=== PATIENT | male | born 1955 | race African-American/Black ===

== ENCOUNTER 2020-10-01 07:09 | Day surgery (SDC) | payer OTHER, MEDICARE ==
[2020-10-01] MEDS ORDERED: NA CHLORIDE 0.9% 500 ML ONE (07:47)
[2020-10-01] MEDS ORDERED: propofoL 200 MG/20 ML VIAL IV ONE ×2 (08:45)
[2020-10-01] MEDS ORDERED: Phenylephrine HCl 10 MG/ML 1 ML VIAL ONE (09:26)
[2020-10-01 09:30] VITALS: TEMP 96.8
[2020-10-01 10:51] VITALS: BP 95/70; O2SAT 98
== END 2020-10-01 10:47 | disposition home health service (06) ==
LOC: OR 07:09
PROVIDERS: ATTEND Internal Medicine Gastroenterology
PROC: 0DBK8ZX Excision of Ascending Colon, Via Natural or Artificial Opening Endoscopic, Diagnostic (ICD-10-PCS; 2020-10-01)
PROC: 0DBB8ZX Excision of Ileum, Via Natural or Artificial Opening Endoscopic, Diagnostic (ICD-10-PCS; 2020-10-01)
PROC: 0DBM8ZX Excision of Descending Colon, Via Natural or Artificial Opening Endoscopic, Diagnostic (ICD-10-PCS; 2020-10-01)
PROC: 0DBP8ZX Excision of Rectum, Via Natural or Artificial Opening Endoscopic, Diagnostic (ICD-10-PCS; principal; 2020-10-01 08:15)
DX: K52.9 Noninfective gastroenteritis and colitis, unspecified (principal); D12.7 Benign neoplasm of rectosigmoid junction; K50.90 Crohn's disease, unspecified, without complications; I10 Essential (primary) hypertension; Z20.822 Contact with and (suspected) exposure to COVID-19; Z86.010 Personal history of colon polyps; Z80.8 Family history of malignant neoplasm of other organs or systems; Z83.71 Family history of colonic polyps
CPT/HCPCS: 45384; 88305; U0002; J2704; J2370; J7040

== ENCOUNTER 2021-03-20 09:55 | Inpatient (IN) | payer OTHER, MEDICARE ==
[2021-03-20 11:50] LABS: Absolute Lymphocytes (CBC) 0.4 K/uL (0.7-4.9); Basophils % 0.6 % (0-1.3); Hematocrit 35.5 % (39.6-49.0); Lymphocytes % 8.2 % (15.3-44.8); RBC Red Blood Cell Count 4.37 M/uL (4.33-5.43)
[2021-03-20 11:51] LABS: Protime INR 1.35
[2021-03-20 12:18] LABS: Albumin 2.6 g/dL (3.4-5.0); Bilirubin Direct 0.3 mg/dL (0-0.2); Bilirubin Total 0.5 mg/dL (0.2-1.0); Magnesium 1.6 mg/dL (1.8-2.4); Protein, Total 6.1 g/dL (6.4-8.2); Troponin (Emerg Dept Use Only) 0.02 ng/mL (0.0-0.045)
--- NOTE | 2021-03-20 12:26 | RAD REPORT ---
EXAM DESCRIPTION: RAD - Chest Single View - 03/20/2021 12:16 pm CLINICAL HISTORY: TRAUMA COMPARISON: Chest Pa And Lat (2 Views) dated 04/29/2020; Chest Pa And Lat (2 Views) dated 12/05/2019; Chest Single View dated 12/16/2015; CHEST SINGLE VIEW dated 02/08/2014 FINDINGS: Lines: None. Lungs: No evidence of edema or pneumonia. Mild increased prominence of the pulmonary interstitium. Pleural: No significant pleural effusions or pneumothorax. Cardiac: Cardiomegaly Bones: No acute fractures. Other: IMPRESSION: Vascular congestion, otherwise no acute process identified.
--- NOTE | 2021-03-20 13:24 | RAD REPORT ---
EXAM DESCRIPTION: CT - Head C Spine Cap Wo Con - 03/20/2021 12:46 pm CLINICAL HISTORY: Fall and AMS with right scalp pain COMPARISON: No comparisons TECHNIQUE: Axial [address] head images were obtained. Axial [address] cervical spine images were obtain ed with sagittal and coronal reconstruction images reviewed. Axial 5 mm images of the chest, abdomen and pelvis were obtained. All CT scans are performed using dose optimization technique as appropriate and may include automated exposure control or mA/KV adjustment according to patient size. FINDINGS: No intracranial hemorrhage, mass or edema. No midline shift or abnormal fluid collection. Mastoid air cells and paranasal sinuses are clear. No skull fracture. Volume loss is minimal and sim ilar to the 2016 study. No measurable chronic ischemic changes seen. Ventricles are normal. Cervical bodies are normal in height. No fracture or acute bone finding.No disk space narrowing.No pr evertebral soft tissue thickening or paraspinal mass.Central canal detail is inherently limited on CT imaging.Lateral masses of C1 are normally positioned to each occipital condyle. The slight rotation of the C1 ring relative to the body of C2 is noted but not felt to be sufficient for an abnormal atla ntoaxial rotary subluxation diagnosis. Mid and upper cervical spine facet joint degenerative changes are present. No significant foraminal stenosis. Patchy ground-glass opacities are present in the right upper lobe. This is a minimal finding but pote ntially pulmonary contusion if there is right-side trauma history. Minimal right upper lobe infiltrat e can also have this appearance. Pattern is not a classic COVID-19 pneumonia presentation. No consoli dation, mass or other significant lung parenchymal finding. Asymmetric posterior gutter interstitial stranding is probably atelectasis and/or scarring. No mediastinal hematoma and the aorta and pulmonar y arteries are unremarkable. No chest will mass or abnormal axillary finding. No displaced rib fractu re or other significant bony finding. CT abdomen and pelvis show no injury to solid abdominal viscera. Patient does have polycystic kidneys with innumerable variably sized low-density masses. Many of the masses have peripheral rim calcifica tion. Isodense masses cannot be excluded. Acute parenchymal disease cannot be evaluated in this setti ng. Cholecystectomy clips are present. No biliary tree dilatation. No bowel injury or significant fin ding. No free air, free fluid or abnormal stranding. No hernia, mass or bulky lymphadenopathy. No ur inary bladder abnormality. No abnormal prostate gland enlargement. Bony degenerative changes are present. There are sclerotic changes in the left femoral head likely re flecting developing avascular necrosis. The femoral head maintains smooth rounded contour. IMPRESSION: No hemorrhage, edema or acute intracranial finding identifiable. Cervical spine degenerative changes are present with no acute finding identifiable. Patchy ground-glass opacities in the right upper lobe could be atelectasis, infiltrate or possibly mi nimal pulmonary contusion if there is right chest trauma history. Right upper lobe findings are not a classic COVID-19 pneumonia presentation. Polycystic kidney disease not fully evaluated in a noncontrast trauma CT protocol. No acute abdominal or pelvic finding. No acute or emergent bone finding identifiable. 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
[2021-03-20 14:45] LABS: Amylase 40 U/L (25-115); Lipase 67 U/L (73-393)
--- NOTE | 2021-03-20 15:44 | ER ---
Nurse's Notes [facility] Name: Adriel Raya Age: 65 yrs Sex: Male : 1955 Arrival Date: 03/20/2021 Time: 10:00 Bed 27 Private MD: Diagnosis: Altered mental status, unspecified;Weakness;Repeated falls Presentation: 03/20 10:29 Chief complaint: EMS states: Generalized weakness and frequent falls over the past few ss days. BGL was 54 on arrival. After administration of oral glucose, repeat BGL was 158. Coronavirus screen: Client denies travel out of the [place] in the last 14 days. Ebola Screen: Patient denies exposure to infectious person. Patient denies travel to an Ebola-affected area in the 21 days before illness onset. Initial Sepsis Screen: Does the patient meet any 2 criteria? No. Patient's initial sepsis screen is negative. Does the patient have a suspected source of infection? No. Patient's initial sepsis screen is negative. Risk Assessment: Do you want to hurt yourself or someone else? Patient reports no desire to harm self or others. Onset of symptoms is unknown. 10:29 Method Of Arrival: [facility] ss 10:29 Acuity: SAM 3 ss Triage Assessment: 21:38 General: Appears in no apparent distress. wr Historical: - Allergies: 10:30 Norvasc; ss - PMHx: 10:30 Dialysis; Diverticulitis; Hypertension; ss - Immunization history:: Client reports receiving the 2nd dose of the Covid vaccine, Moderna. - Social history:: Smoking status: Patient reports the use of cigarette tobacco products, smokes one-half pack cigarettes per day. Screenin:00 Abuse screen: Denies threats or abuse. Denies injuries from another. Nutritional hb screening: No deficits noted. Tuberculosis screening: No symptoms or risk factors identified. Fall Risk Total Kilgore Fall Scale indicates Low Risk Score (25-44 pts). Fall prevention measures have been instituted. Side Rails Up X 2 Frequent Obs/Assesments occuring Family Present and informed to notify staff if they need to leave bedside As available Patient and Family Educated on Fall Prevention Program and strategies. Assessment: 10:15 General: Appears in no apparent distress. uncomfortable, Behavior is calm, cooperative, jl7 appropriate for age. Pain: Denies pain. Neuro: Level of Consciousness is awake, alert, obeys commands, Oriented to person, place, time, situation. Cardiovascular: Patient's skin is warm and dry. Rhythm is atrial fibrillation. Respiratory: Airway is patent Respiratory effort is even, unlabored, Respiratory pattern is regular, symmetrical. Derm: Skin is dry, Skin is normal, Skin temperature is warm. 11:00 Reassessment: Patient appears in no apparent distress at this time. No changes from [facility] previously documented assessment. Patient and/or family updated on plan of care and expected duration. Pain level reassessed. Patient is alert, oriented x 3, equal unlabored respirations, skin warm/dry/pink. 12:00 Reassessment: Patient appears in no apparent distress at this time. No changes from [facility] previously documented assessment. Patient and/or family updated on plan of care and expected duration. Pain level reassessed. Patient is alert, oriented x 3, equal unlabored respirations, skin warm/dry/pink. 13:00 Reassessment: Patient appears in no apparent distress at this time. No changes from [facility] previously documented assessment. Patient and/or family updated on plan of care and expected duration. Pain level reassessed. Patient is alert, oriented x 3, equal unlabored respirations, skin warm/dry/pink. 14:00 Reassessment: Patient appears in no apparent distress at this time. No changes from [facility] previously documented assessment. Patient and/or family updated on plan of care and expected duration. Pain level reassessed. Patient is alert, oriented x 3, equal unlabored respirations, skin warm/dry/pink. 14:38 Reassessment: MILE [phone], DAUGHTER LUIS ALBERTO [phone]. hb 15:00 Reassessment: Patient appears in no apparent distress at this time. No changes from hb previously documented assessment. Patient and/or family updated on plan of care and expected duration. Pain level reassessed. Vital Signs: 11:15 BP 96 / 60; Pulse 69; Resp 17; Temp 97.9; Pulse Ox 94% ; jl7 11:15 Weight 168 kg; Height 5 ft. 11 in. (180.34 cm); jl7 14:11 BP 96 / 60; Pulse 78; Resp 18; Pulse Ox 96% ; jl7 11:15 Body Mass Index 51.66 (168.00 kg, 180.34 cm) 7 ED Course: 10:00 Patient arrived in ED. eb 10:18 Ever Trujillo MD is Attending Physician. kdr 10:20 Patient has correct armband on for positive identification. Placed in gown. Bed in low jl7 position. Call light in reach. Side rails up X2. engine monitor on. Pulse ox on. NIBP on. Warm blanket given. 10:30 Triage completed. ss 11:10 Lanre Singh, RN is Primary Nurse. 7 11:40 Initial lab(s) drawn, by me, sent to lab. Inserted saline lock: 22 gauge in right 3 antecubital area, using aseptic technique. Blood collected. 11:58 Arm band placed on. hb 11:59 EKG done, by ED staff, reviewed by Ever Trujillo MD. jl7 12:15 XRAY Chest (1 view) In Process Unspecified. EDMS 12:46 CT Traumagram (Head C Spine CAP wo con) In Process Unspecified. EDMS 14:08 Repeat lab(s) drawn. by me, sent to lab. jl7 15:42 Jose Lawrence is Hospitalizing Provider. kdr 16:37 AMMONIA Sent. 3 18:30 No provider procedures requiring assistance completed. Patient admitted, IV remains in hb place. Administered Medications: No medications were administered Outcome: 15:43 Decision to Hospitalize by Provider. kdr 18:30 Admitted to ER Hold. Please see [facility] for further documentation. hb 18:30 Condition: stable 18:30 Instructed on the need for admit, Demonstrated understanding of instructions. 22:26 Patient left the ED. ap3 Signatures: Dispatcher [employer] EDMS Ever Trujillo MD MD [facility] [address] Matilde Mares RN RN Meseret Lr RN RN Lanre Singh RN RN [facility] Cherri Sands [facility] Netta Daley RN RN 3 Petra Hadley Willena wr
--- NOTE | 2021-03-20 15:44 | EDPHYS ---
Physician Documentation [facility] Name: Adriel Raya Age: 65 yrs Sex: Male : 1955 Arrival Date: 03/20/2021 Time: 10:00 Bed 27 Private MD: ED Physician Ever Trujillo HPI: 03/20 18:14 This 65 yrs old Black Male presents to ER via EMS with complaints of General Weakness. kdr 18:14 EMS and the patient's reports that he has been very weak over the last 3 to 4 kdr days. He has had recurrent falls several falls in the last 24 hours. She denies any specific injury and the patient has no focal complaints of. On EMS arrival, the patient had a blood glucose level of 54. He was given oral glucose and on arrival his blood glucose level was 158. On my initial evaluation the patient was poorly responsive and somnolent. Later in his stay in the ED, he became more awake and lucid.. Onset: The symptoms/episode began/occurred gradually, 1 week(s) ago. Severity of symptoms: At their worst the symptoms were mild moderate incapacitating in the emergency department the symptoms are unchanged. The patient has experienced similar episodes in the past, multiple times. The patient has not recently seen a physician. Historical: - Allergies: 10:30 Norvasc; ss - PMHx: 10:30 Dialysis; Diverticulitis; Hypertension; ss - Immunization history:: Client reports receiving the 2nd dose of the Covid vaccine, Moderna. - Social history:: Smoking status: Patient reports the use of cigarette tobacco products, smokes one-half pack cigarettes per day. ROS: 18:14 Constitutional: Patient is a poor historian and most of the review of systems and kdr history were gathered from the by phone. The 's name is Edith. Her phone number is [phone]. Patient also has phone for his daughter daniel, Eyes: Negative for injury, pain, redness, and discharge, Neck: Negative for injury, pain, and swelling, Cardiovascular: Negative for chest pain, palpitations, and edema, Respiratory: Negative for shortness of breath, cough, wheezing, and pleuritic chest pain, Abdomen/GI: Negative for abdominal pain, nausea, vomiting, diarrhea, and constipation, Back: Negative for injury and pain, : Negative for injury, bleeding, discharge, and swelling, MS/Extremity: Negative for injury and deformity, Skin: Negative for injury, rash, and discoloration, Psych: Negative for depression, anxiety, suicide ideation, homicidal ideation, and hallucinations, Allergy/Immunology: Negative for hives, rash, and allergies, Endocrine: Negative for neck swelling, polydipsia, polyuria, polyphagia, and marked weight changes, Hematologic/Lymphatic: Negative for swollen nodes, abnormal bleeding, and unusual bruising. 18:14 Neuro: Positive for altered mental status, gait disturbance, weakness, Legs are giving out on him due to weakness, Negative for hearing loss, loss of consciousness. Exam: 12:06 ECG was reviewed by the Attending Physician. kdr 18:14 Constitutional: This is a well developed, well nourished patient who is awake, alert, kdr and in no acute distress. Head/Face: Normocephalic, atraumatic. Eyes: Pupils equal round and reactive to light, extra-ocular motions intact. Lids and lashes normal. Conjunctiva and sclera are non-icteric and not injected. Cornea within normal limits. Periorbital areas with no swelling, redness, or edema. Neck: Trachea midline, no thyromegaly or masses palpated, and no cervical lymphadenopathy. Supple, full range of motion without nuchal rigidity, or vertebral point tenderness. No Meningismus. Chest/axilla: Normal chest wall appearance and motion. Nontender with no deformity. No lesions are appreciated. Cardiovascular: Regular rate and rhythm with a normal S1 and S2. No gallops, murmurs, or rubs. Normal PMI, no JVD. No pulse deficits. Respiratory: Lungs have equal breath sounds bilaterally, clear to auscultation and percussion. No rales, rhonchi or wheezes noted. No increased work of breathing, no retractions or nasal flaring. 18:14 Abdomen/GI: Soft, non-tender, with normal bowel sounds. No distension or tympany. No guarding or rebound. No evidence of tenderness throughout. Skin: Warm, dry with normal turgor. Normal color with no rashes, no lesions, and no evidence of cellulitis. Neuro: Awake and alert, GCS 15, oriented to person, place, time, and situation. Cranial nerves II-XII grossly intact. Motor strength 5/5 in all extremities. Sensory grossly intact. Cerebellar exam normal. Normal gait. Psych: Awake, alert, with orientation to person, place and time. Behavior, mood, and affect are within normal limits. 18:14 Abdomen/GI: Inspection: obese Bowel sounds: active, all quadrants. 18:14 Musculoskeletal/extremity: Extremities: noted in the left arm: The patient's dialysis access site, fistula is on his left forearm and appears to be normal with a normal thrill. Vital Signs: 11:15 BP 96 / 60; Pulse 69; Resp 17; Temp 97.9; Pulse Ox 94% ; jl7 11:15 Weight 168 kg; Height 5 ft. 11 in. (180.34 cm); jl7 14:11 BP 96 / 60; Pulse 78; Resp 18; Pulse Ox 96% ; jl7 11:15 Body Mass Index 51.66 (168.00 kg, 180.34 cm) jl7 MDM: 10:23 Patient medically screened. kdr 18:14 Data reviewed: vital signs, nurses notes, lab test result(s), radiologic studies. kdr Counseling: I had a detailed discussion with the patient and/or guardian regarding: the historical points, exam findings, and any diagnostic results supporting the discharge/admit diagnosis, lab results, radiology results, the need for further work-up and treatment in the hospital. ED course: Patient became more lucid no longer he was in the emergency department. His blood glucose remained stable. He was admitted for observation and stabilization.. 03/20 10:19 Order name: Basic Metabolic Panel [facility] 03/20 10:19 Order name: CBC with Diff; Complete Time: 12:39 [facility] 03/20 10:19 Order name: LFT's [facility] 03/20 10:19 Order name: Magnesium; Complete Time: 12:39 [facility] 03/20 10:19 Order name: NT PRO-BNP; Complete Time: 12:39 [facility] 03/20 10:19 Order name: PT-INR; Complete Time: 12:39 [facility] 03/20 10:19 Order name: Troponin (emerg Dept Use Only); Complete Time: 12:39 [facility] 03/20 10:20 Order name: Basic Metabolic Panel; Complete Time: 12:39 EDMS 03/20 10:20 Order name: Liver (Hepatic) Function; Complete Time: 12:39 [facility] 03/20 11:28 Order name: Glucose, Ancillary Testing; Complete Time: 12:39 [facility] 03/20 12:24 Order name: Amylase, Serum; Complete Time: 15:07 [facility] 03/20 12:24 Order name: ETOH Level; Complete Time: 15:07 [facility] 03/20 12:24 Order name: Lipase; Complete Time: 15:07 [facility] 03/20 15:41 Order name: AMMONIA; Complete Time: 17:01 [facility] 03/20 10:19 Order name: XRAY Chest (1 view); Complete Time: 12:39 [facility] 03/20 10:19 Order name: EKG; Complete Time: 10:20 [facility] 03/20 10:19 Order name: Cardiac monitoring; Complete Time: 11:43 [facility] 03/20 10:19 Order name: EKG - Nurse/Tech; Complete Time: 11:43 [facility] 03/20 10:19 Order name: IV Saline Lock; Complete Time: 11:43 [facility] 03/20 10:19 Order name: Labs collected and sent; Complete Time: 11:43 [facility] 03/20 12:24 Order name: CT Traumagram (Head C Spine CAP wo con); Complete Time: 14:15 [facility] 03/20 15:41 Order name: ABG [facility] 03/20 17:01 Order name: MRI - Brain Wo Cont [facility] 03/20 18:13 Order name: COVID-19 : Document "Date of Symptom Onset" if Symptomatic. [facility] 03/20 18:27 Order name: SARS-COV-2 RT PCR [facility] 03/20 18:28 Order name: CORONAVIRUS [facility] 03/20 19:19 Order name: Glucose, Ancillary Testing [facility] 03/20 20:12 Order name: Glucose, Ancillary Testing [facility] 03/20 20:32 Order name: MRI [facility] 03/20 10:19 Order name: O2 Per Protocol; Complete Time: 11:43 [facility] 03/20 10:19 Order name: O2 Sat Monitoring; Complete Time: 11:43 [facility] 03/20 12:24 Order name: NPO; Complete Time: 12:29 kdr EC:06 Rate is 81 beats/min. Rhythm is irregularly irregular, A fib with No ectopy. QRS [place] kdr is Normal. MI interval is normal. QRS interval is normal. QT interval is normal. Clinical impression: Atrial Fibrillation. Administered Medications: No medications were administered Disposition Summary: 03/20/21 15:43 Hospitalization Ordered Hospitalization Status: Inpatient Admission kdr Provider: Jose Lawrence Condition: Fair kdr Problem: new kdr Symptoms: are unchanged kdr Bed/Room Type: Standard kdr Location: Telemetry/MedSurg (Inpatient)(03/20/21 21:32) mw Room Assignment: 425(03/20/21 21:32) mw Diagnosis - Altered mental status, unspecified kdr - Weakness kdr - Repeated falls kdr Forms: - Medication Reconciliation Form kdr - SBAR form kdr Signatures: Dispatcher [employer] EDMS Katherine Saldaña RN RN Ever Trujillo MD MD kdr Matilde Mares RN RN Meseret Lr RN RN Lanre Singh RN RN jl7 Corrections: (The following items were deleted from the chart) 16:59 16:19 CORONAVIRUS+MRePrryLAB.BRZ ordered. EDUT EDUT 19:05 15:43 Telemetry/MedSurg (Inpatient) kdr hb 19:05 15:43 kdr hb 21:32 19:05 [facility] ER HOLD hb mw 21:32 19:05 ERHOLD- hb mw
[2021-03-20 17:14] LABS: Arterial Blood Carboxyhemoglob 1.8 % (0-1.5); Blood Gas Oxyhemoglobin 90.1 % (94-97); Blood O2 Saturation 92.7 % (92-98.5)
--- NOTE | 2021-03-20 17:39 | P.HP ---
Certification for Inpatient Patient admitted to: Observation With expected LOS: <2 Midnights Patient will require the following post-hospital care: None Practitioner: I am a practitioner with admitting privileges, knowledge of patient current condition, hospital course, and medical plan of care. Services: Services provided to patient in accordance with Admission requirements found in Title 42 Section 412.3 of the Code of Federal Regulations Patient History Date of Service: 03/20/21 Reason for admission: Altered mental status History of Present Illness: This is a 65-year-old male patient with a history of end-stage renal disease on dialysis with hypertension that presented to the emergency room via EMS after significant other called EMS for frequent falls. EMS discovered that patient's blood glucose level was 54. Was administered oral glucose and brought it up slightly. By the time patient was seen in the emergency room patient's glucose was now 158. Patient was evaluated and found to have a sodium of 134, potassium 4.0, chloride 100, bicarb 30, BUN of 22, creatinine 6.5, glucose 92. Patient's white cell count was 4.4, hemoglobin 11, hematocrit 35.5, platelet 131. Patient had magnesium of 1.6 and a BNP of 22,297. Patient stated that he was dialyzed yesterday. Stated that he had been more fatigued than normal and had 3 falls al l within the last 24 hours. To his knowledge does not recall ever having hypoglycemic episodes or diabetes. Medicine was consult that time to evaluate patient for admission. ER initially said patient was very altered but has seemed to improved over the course of his stay currently. Allergies amlodipine besylate [From Norvasc] Allergy (Verified 09/26/20 09:46) Anaphylaxis, lower leg swelling amoxicillin [From Augmentin] Allergy (Verified 09/26/20 09:46) Nausea/Vomiting/Diarrhea clavulanic acid [From Augmentin] Allergy (Verified 09/26/20 09:46) Nausea/Vomiting/Diarrhea Home medications list reviewed: Yes Home Medications: Cinacalcet HCl [Sensipar*] 1 tab PO BEDTIME 09/02/13 Docusate [Colace Cap*] 1 tab PO BID 09/02/13 Metoprolol Tartrate [Lopressor*] 100 mg PO BID 09/02/13 Omeprazole [Prilosec] 40 mg PO DAILY 09/02/13 Simvastatin [Zocor*] 20 mg PO BEDTIME 09/02/13 allopurinoL [Zyloprim*] 100 mg PO BEDTIME 09/02/13 cloNIDine HCL [Catapres*] 0.3 mg PO PRN PRN 09/02/13 Mesalamine [Pentasa*] 4 tab PO BID 07/10/14 Nati Pro Ultra [place] 3 Soft Gels 1 cap PO BID 12/16/15 Sherrill Ic 1 tab PO BID 12/16/15 Sevelamer Carbonate [Renvela*] 800 mg PO TIDWM 12/16/15 Apixaban [Eliquis] 2.5 mg PO BID 09/26/20 Folic Acid/Multivit,Iron,Lathe Puller [One Daily Complete Tablet] 1 each PO DAILY 09/26/20 Gabapentin 300 mg PO TID 09/26/20 Tramadol HCl [Ultram] 50 mg PO PRN PRN 09/26/20 - Past Medical/Surgical History Diabetic: No -: Diverticulitis -: HTN -: Gout -: Renal disease -: HD on T, Thur, Sat -: trace of asbestosis -: cpap -: heart cath -: appy -: carli -: L knee scope - Social History Smoking Status: Never smoker Smoking therapy provided: No Alcohol use: No CD- Drugs: No Caffeine use: Yes Place of Residence: Home Review of Systems General: Unremarkable Eyes: Unremarkable ENT: Unremarkable Respiratory: Unremarkable Cardiovascular: Unremarkable Gastrointestinal: Unremarkable Musculoskeletal: Unremarkable Integumentary: Unremarkable Neurological: Weakness, As per HPI Lymphatics: Unremarkable Physical Examination - Vital Signs Temperature: 97.9 F Blood Pressure: 96/60 Pulse: 69 Respirations: 18 Pulse Ox (%): 96 - Physical Exam General: Alert, In no apparent distress, Oriented x3 HEENT: PERRLA, Mucous membr. moist/pink, EOMI Neck: Supple, 2+ carotid pulse no bruit, JVD not distended Respiratory: Clear to auscultation bilaterally Cardiovascular: No edema, Normal pulses, Regular rate/rhythm, Normal S1 S2, No gallops, No rubs, No murmurs Capillary refill: <2 Seconds Gastrointestinal: Normal bowel sounds, Soft and benign, Non-distended, No ascites, No tenderness, No masses, No rebound, No guarding Musculoskeletal: No clubbing, No swelling, No contractures, No erythema, No tenderness, No warmth Integumentary: No rashes, No breakdown, No significant lesion, No tenderness/swelling, No erythema, No warmth, No cyanosis Neurological: Normal speech, Normal strength at 5/5 x4 extr, Normal tone, Sensation intact, Cranial nerves 3-12 intact, Normal affect Lymphatics: No axilla or inguinal lymphadenopathy - Studies Laboratory Data (last 24 hrs) 03/20/21 14:04: Amylase 40, Lipase 67 L 03/20/21 11:40: PT 15.6 H, INR 1.35 03/20/21 11:40: WBC 4.40, Hgb 11.0 L, Hct 35.5 L, Plt Count 131 L 03/20/21 11:40: Sodium 134 L, Potassium 4.0, BUN 22 H, Creatinine 6.50 H*, Glucose 92, Magnesium 1.6 L, Total Bilirubin 0.5, AST 37, ALT 20, Alkaline Phosphatase 174 H Assessment and Plan - Problems (Diagnosis) (1) Hypotension Current Visit: Yes Status: Acute Qualifiers: Hypotension type: idiopathic hypotension Qualified Code(s): I95.0 - Idiopathic hypotension (2) Altered mental status Current Visit: Yes Status: Acute Qualifiers: Altered mental status type: unspecified Qualified Code(s): R41.82 - Altered mental status, unspecified (3) Hypoglycemia Current Visit: Yes Status: Acute (4) ESRD on hemodialysis Onset Date: 12/22/15 Current Visit: Yes Status: Chronic - Plan 1. Patient will be admitted to a telemetry unit for observation overnight to continue monitoring his mental status and glucose levels. 2. Patient will have vital signs and glucose checks per protocol 3. Consulted physical therapy for the weakness and frequent falls 4. Will have labs in the morning to repeat his CBC and chemistry 5. Patient likely will be able to go home as he has done well over the course of his stay thus far. Discharge Plan: Home Plan to discharge in: 24 Hours - Advance Directives Does patient have a Living Will: Yes Does patient have a Durable POA for Healthcare: No - Code Status/Comfort Care Code Status Assessed: No Critical Care: No Time Spent Managing Pts Care (In Minutes): 70
[2021-03-20] MEDS ORDERED: ACETAMINOPHEN 500 MG TAB PO PRN (18:20)
[2021-03-20] MEDS ORDERED: ONDANSETRON 4 MG/2 ML VIAL IV PRN (18:20)
[2021-03-20 18:26] VITALS: BMI 51.5
[2021-03-20] MEDS ORDERED: D50W 25 GM/50 ML SYRINGE IV ONE (19:08)
[2021-03-20] MEDS ORDERED: D50W 50 ML IV ONE (19:31)
--- NOTE | 2021-03-20 20:31 | RAD REPORT ---
EXAM DESCRIPTION: MRI - Brain Wo Cont - 03/20/2021 8:24 pm CLINICAL HISTORY: AMS COMPARISON: Brain Wo Cont dated 12/16/2015; Head C Spine Cap Wo Con dated 03/20/2021 TECHNIQUE: Sagittal T1-weighted images were obtained along with axial PD, heavily T2-weighted and T2 -FLAIR images. Axial DWI and ADC mapping sequences were also obtained along with coronal heavily T2-w eighted images. FINDINGS: No intracranial hemorrhage, mass or acute infarction. There is no edema or shift of midlin e structures. No extra-axial fluid collections. Merritt-matter/white matter junction is preserved. Signa l voids are seen as a normal finding in the major intracranial vessels. Patient has minimal atrophy c hange showing little or no progression from 2016. No significant chronic ischemic change. Ventricles are normal. No globe or orbital content abnormality. Mastoid air cells and paranasal sinuses are clear. IMPRESSION: Negative non-contrast MRI of the Brain for acute finding.
[2021-03-21] MEDS: TRAMADOL HCL 50 MG TAB PO PRN ×2 (00:38→21:02)
[2021-03-21 06:01] LABS: Absolute Lymphocytes (CBC) 0.5 K/uL (0.7-4.9); Basophils % 0.9 % (0-1.3); Hematocrit 34.2 % (39.6-49.0); Lymphocytes % 13.7 % (15.3-44.8); MPV 8.2 fL (7.6-11.3); RBC Red Blood Cell Count 4.23 M/uL (4.33-5.43)
[2021-03-21 06:22] LABS: Potassium 4.4 mmol/L (3.5-5.1)
--- NOTE | 2021-03-21 15:33 | P.PN ---
Subjective Date of Service: 03/21/21 Chief Complaint: Altered mental status Patient is currently on 2 L oxygen by nasal cannula. He has no new complain. His mental status improved after correction of hypoglycemia Physical Examination - Vital Signs Temperature: 97.3 F Blood Pressure: 96/55 Pulse: 82 Respirations: 20 Pulse Ox (%): 96 - Physical Exam General: Alert, In no apparent distress Neck: JVD not distended Respiratory: Other (Nonlabored breathing) Cardiovascular: Regular rate/rhythm, Normal S1 S2 Gastrointestinal: Soft and benign, Non-distended Musculoskeletal: No swelling Neurological: Normal strength at 5/5 x4 extr Assessment And Plan - Current Problems (Diagnosis) (1) COVID-19 virus infection Current Visit: Yes Status: Acute (2) Altered mental status Current Visit: Yes Status: Acute Qualifiers: Altered mental status type: unspecified Qualified Code(s): R41.82 - Altered mental status, unspecified (3) Hypoglycemia Current Visit: Yes Status: Acute (4) ESRD on hemodialysis Onset Date: 12/22/15 Current Visit: Yes Status: Chronic (5) Anemia in CKD (chronic kidney disease) Onset Date: 12/22/15 Current Visit: No Status: Acute - Plan Hypoglycemia corrected. Oral hypoglycemics or insulin not listed on his home medications. Not sure what caused hypoglycemia unless it is secondary to hormonal deficiencies. Will check serum cortisol and TSH. Nephrology consult for hemodialysis. Chest x-ray demonstrated vascular congestion. Hopefully patient will be weaned off oxygen after hemodialysis. Will repeat chest x-ray after hemodialysis to evaluate for COVID pneumonia. Hypocalcemia likely secondary to vitamin-D deficiency. Will check vitamin-D levels.
[2021-03-21 19:00] LABS: Magnesium 1.7 mg/dL (1.8-2.4); Phosphorus 2.7 mg/dL (2.5-4.9)
[2021-03-22 04:04] LABS: Magnesium 1.6 mg/dL (1.8-2.4); Potassium 3.6 mmol/L (3.5-5.1)
[2021-03-22 04:09] LABS: Absolute Lymphocytes (CBC) 0.6 K/uL (0.7-4.9); Basophils % 0.4 % (0-1.3); Hematocrit 35.3 % (39.6-49.0); Lymphocytes % 17.8 % (15.3-44.8); MPV 8.4 fL (7.6-11.3); RBC Red Blood Cell Count 4.36 M/uL (4.33-5.43)
[2021-03-22] MEDS: TRAMADOL HCL 50 MG TAB PO PRN (10:03)
--- NOTE | 2021-03-22 10:48 | CON ---
History Of Present Illness: The patient is a pleasant 65-year-old male who presents to the hospital with some change in mental status, was also having some difficulty breathing, found to have COVID pos itive. The patient was admitted to the fourth floor for treatment and evaluation. The patient was f ound to have no sugars. This was corrected. His hypoglycemia has stayed an issue overall. The leadnra ent has not been eating and drinking very well. On my evaluation today, again, the patient seems to be slightly confused but is able to answer some questions. He is alert and does not seem to be in an y distress. He is using about 2 L nasal cannula oxygen, O2 sats are in mid 90s, and this is an impro vement from yesterday. The patient had about 3.8 L of ultrafiltration done yesterday on dialysis. H e denies any other concerns, issues. His hemoglobin is okay. He does not seem to be in any pain. H e seems to be more alert compared to yesterday from what I am reading from the documentations and gat neil from speaking with his nurse. The patient's past medical history is consistent with requiring dialysis for end-stage renal disease. He goes to the dialysis unit in [place]. Dr. Franklin is his primary insurance claims representative. The patient has a fistula on his left forearm that has been functioning w . This was used with a 15-gauge needle yesterday to dialyze. We have been consulted to supervise dialysis. The patient also has some mild hypocalcemia and also his blood pressures have been runnin g in the lower side in the 80-110 range. The patient was able to tolerate dialysis well with an albu min yesterday. Past Medical History: As stated above, the patient has a history of end-stage renal disease, hyperte nsion. He is on dialysis on a Tuesday, , Tuesday schedule. Question of some lung disease f rom asbestosis. In the past, the patient has had requirement for CPAP, question sleep apnea, history of cholecystectomy, left knee arthroscopy. He has had cardiac cath/coronary artery disease. Social History: He has a involved with his care. Does not drink alcohol. Does not smoke cigar ettes or use any drugs. He does live at home, seems to be reasonably functional at baseline with abl e to answer questions and take care of activities of daily living. His allergies are noted in the art and reviewed. Medications noted and reviewed. Current Medications: Include tramadol p.r.n. for pain, which he has gotten 1 dose on March 21 in the evening. He is also on Zofran as needed for nausea. He has not received that. I have just sta rted him on magnesium and vitamin D to correct the low magnesium and his hypocalcemia. Physical Examination: Vital Signs: Evaluation of his vitals, currently blood pressure has been running between 85-110 syst olic, diastolic around 50, O2 sats 94% on room air. He is afebrile. His pulse is about 80 and regul ar. Lungs: Clear to auscultation anteriorly with decreased breath sounds at the very bases. Abdomen: Soft. Extremities: Revealed positive 2 edema bilaterally. Laboratory Data: Reviewed. Labs from today show WBC count of 3.3, hemoglobin 11.1, hematocrit 35.3, platelet count of 105. Chemistry shows sodium 138, potassium 3.6, chloride 101, bicarb 29, BUN 21, creatinine 6.5, calcium 7.2, and magnesium at 1.6. The calcium has improved from earlier as the numb er before was 6.5, that was yesterday. The patient was dialyzed with a 3 calcium bath on dialysis ye sterday. Phosphorus is 2.7, currently at 3.0 today. Assessment And Plan: 1.The patient is in reasonably stable condition currently with volume status somewhat significantly improved but still slightly volume overloaded, does not make much urine. He is otherwise alert. Esha athing is comfortable on 2 L nasal cannula. The patient is saturating at about 95%. His lungs are c lear. I am hesitant to dialyze him today given his low blood pressures. We will plan to dialyze amrit orrow with albumin as needed. I have discussed this with the dialysis nurse and orders have been com municated. We will plan to take off another 2.5 L or so if the patient is able to tolerate diet. e patient's hypoglycemia is being monitored closely and the patient is going to be treated with D50 a s needed to keep his glucose in a reasonable range that is another reason we want to be careful dialy zing the patient and then do it tomorrow because there may be some glucose removed also on dialysis. The patient's electrolytes otherwise look good. 2.For the hypocalcemia. We will plan to dialyze him with a 3 calcium bath. We will also start him on ergocalciferol. 3.For altered mental status, correct hypoglycemia as blood pressure is improving. Volume status is improving. Hopefully this will improve as well. 4.Hypomagnesemia. We will avoid giving him IV magnesium for now. Magnesium is very slightly lower than the normal range and IV magnesium can cause a drop in his blood pressure. We will go ahead and treat with p.o. magnesium as long as patient is not having diarrhea. Discussed this with the nurse t laurentg care of the patient. If diarrhea becomes a problem, we will have to hold p.o. magnesium as wel l. In summary, start p.o. magnesium. Start ergocalciferol, dialysis Tuesday, , and Tuesday, oliveira d dialysis treatment yesterday. We will plan to give another treatment tomorrow as an extra treatmen t to see if we can ultrafiltrate somewhat more to get him close to or at his dry weight. If hyperten jas is an issue with dialysis, we will plan on giving him some albumin. We will also dialyze him wi th a 3 calcium bath to further correct the calcium along with giving him vitamin D. /TRENT Voice ID: [id number] Report ID: [id number]
[2021-03-22] MEDS: MAGNESIUM OXIDE 400 MG TAB PO SCH (11:00)
[2021-03-22] MEDS: MIDODRINE HCL 5 MG TABLET PO SCH ×2 (11:45→21:36)
[2021-03-22] MEDS: DRISDOL (VITAMIN D=ERGOCALCIFEROL) 50000 UNIT CAP PO SCH (12:00)
[2021-03-22] MEDS ORDERED: NA CHLORIDE 0.9% 500 ML IV ONE (13:12)
[2021-03-22] MEDS ORDERED: NA CHLORIDE 0.9% 1,000 ML ONE (13:28)
--- NOTE | 2021-03-22 13:57 | P.PN ---
Subjective Date of Service: 03/22/21 Chief Complaint: Altered mental status Patient is currently on 3 L oxygen by nasal cannula. Patient has been hypotensive since morning. Rapid response was performed which was his systolic blood pressure was down to 62. Patient put in Trendelenburg position at which point his systolic blood pressure increased to 92. Patient is alert and oriented. No change in mental status. Physical Examination - Vital Signs Temperature: 98.1 F Blood Pressure: 76/46 Pulse: 85 Respirations: 20 Pulse Ox (%): 95 - Physical Exam General: Alert, In no apparent distress, Oriented x3 HEENT: Mucous membr. moist/pink Respiratory: Clear to auscultation bilaterally, Diminished, Other (No labored breathing) Cardiovascular: Regular rate/rhythm, Normal S1 S2, Edema (Bilateral lower extremities) Gastrointestinal: Soft and benign, Non-distended, Other (Obese abdomen) Musculoskeletal: No contractures Integumentary: No erythema, No cyanosis Neurological: Other (No focal motor deficit.) Assessment And Plan - Current Problems (Diagnosis) (1) COVID-19 virus infection Current Visit: Yes Status: Acute (2) Altered mental status Current Visit: Yes Status: Acute Qualifiers: Altered mental status type: unspecified Qualified Code(s): R41.82 - Altered mental status, unspecified (3) Hypoglycemia Current Visit: Yes Status: Acute (4) ESRD on hemodialysis Onset Date: 12/22/15 Current Visit: Yes Status: Chronic (5) Anemia in CKD (chronic kidney disease) Onset Date: 12/22/15 Current Visit: No Status: Acute - Plan Hypoglycemia corrected. Cortisol level and TSH are within normal limit Patient underwent hemodialysis yesterday and about 3.7 L of fluid was removed. Case discussed with nephrology. Given a 500 ml NS bolus. Start midodrine. Ordered echocardiogram, troponin and cardiology consult. Transferred to the ICU for close monitoring Repeat chest x-ray. Wean oxygen as possible Hypocalcemia likely secondary to vitamin-D deficiency. Hypocalcemia improved. Hypomagnesemia is been corrected. Low 25-OH vitamin-D. Replacement per nephrology. Continue to monitor electrolytes. Antihypertensives on hold. Monitor blood pressure closely.
[2021-03-23] MEDS: MAGNESIUM OXIDE 400 MG TAB PO SCH (08:19)
[2021-03-23] MEDS: MIDODRINE HCL 5 MG TABLET PO SCH ×3 (08:19→20:45)
[2021-03-23] MEDS ORDERED: D50W 25 GM/50 ML SYRINGE IV ONE ×3 (08:55→16:00)
--- NOTE | 2021-03-23 10:19 | PN ---
Date of Progress Note: 03/23/2021 Subjective: The patient is alert, awake, comfortable. He states his breathing is about the same as yesterday if anything improved a little bit. His heart rate has been between 80-100 and irregular. Abdomen is soft. Extremities revealed positive edema bilaterally. He is on 2 L nasal cannula. O2 s ats are at about 94%. His blood pressure has improved. The systolic was about 100-110 with diastoli c in the 50 range. This is a significant improvement compared to yesterday when he had gone down as much as 50. He has been given some IV fluids with about 500 cc of fluids yesterday and has been [place] on midodrine with 5 mg p.o. t.i.d. The midodrine has had a positive impact with his blood pressu re is improving, his breathing improving. He denies any other nausea, vomiting, or any other complai nts. He seems to be in reasonably good condition. His blood sugars have been slow on lower side wit h readings above 100 on the last 1 and the nurses rechecking that as well. Physical Examination: Vital Signs: Stable. Blood pressure 102/57, last pulse about 100, irregular. Abdomen is soft. Extremities revealed positive edema bilaterally. General: The patient is afebrile. He is not in any distress. He is not in any pain. His breathing is comfortable. Lungs: Clear anteriorly. Decreased breath sounds at the very bases but due to the patient's body oliveira bitus, it is difficult to assess. The patient is obese. Abdomen: Soft, nontender. Bowel sounds are positive. Extremities: With +2 edema bilaterally about the same as yesterday. Medications: Reviewed. The patient has been started on midodrine 5 mg p.o. b.i.d. The patient is a lso on magnesium 400 mg p.o. daily. He is on vitamin D 37146 units once a week. He is getting Tylen ol p.r.n. for pain and tramadol p.r.n. for pain and Zofran p.r.n. for nausea, vomiting. Laboratory Data: Reviewed WBC count 3.3. This is from yesterday. Hemoglobin 11.1, hematocrit 35.3, platelet count 105. Chemistry shows sodium 138, potassium 3.6, chloride 101, bicarb 29, BUN 21, cre atinine 6.52. This is lab work from yesterday. Magnesium at that time was 1.6. His last sugar was down to 75, but has been running in the 100 range. Assessment And Plan: The patient is a pleasant 65-year-old male who is alert, awake, seems to be in reasonably stable condition currently. He was dialyzed over the weekend. We will plan to dialyze hi m again today. His regular schedule is Tuesday, , Tuesday, but given the stone coming tomor row and also given the patient's overall perhaps slight breathing worsening compared to his baseline, I would keep him close to euvolemic status. The patient seems to be close to his dry weight right n ow in fact needed about 500 cc of fluid to be given yesterday to support the blood pressure. Now corey t the patient has been started on midodrine, his blood pressure is looking good. His heart rate is i rregular. This has been documented on previous vitals also and does not seem to be a new problem. H owever, his heart rate is in good control range between 80-100. His lungs are clear. His volume sta tus seems to be close to euvolemic and if his blood pressure goes below 100, a small bolus of IV flui ds could be out of below 90, a small bolus of IV fluids can be tried. We will attempt only 1 to 1-1/ 2 L of ultrafiltration with dialysis today with albumin as needed. Continue on midodrine for now. T he patient is having some shortness of breath lower than his baseline. I have been advised by the [facility] that he did have a COVID test positive and that is why he is on the fourth floor with COV ID precautions. However, I do not see a documented test on the chart and have requested the nurse to review to see when it was positive and to get it charted. In summary possibly COVID positive, short ness of breath status overall improved. The patient with issues with hypertension, irregular heart r ate. Recommend considering a Cardiology evaluation, echocardiogram, gentle IV fluids to keep blood p ressure over 90 and dialysis today. We will plan to dialyze with a gentle ultrafiltration with album in as needed. Also discussed with the nursing staff to check a fingerstick glucose if less than 120. We will give some D50 1 amp to allow patient to be comfortable on dialysis and also to keep his glu cose readings at least between 100-150 range as the patient has been dropping lately. Also encourage p.o. intake. The patient has been eating meals that his is bringing. Continue to encourage th at and also the patient is on low-dose magnesium and getting vitamin D supplement. Clinically stable compared to yesterday. Next dialysis will be planned for either Tuesday or dependi ng on patient's condition. /TRENT Voice ID: [id number] Report ID: [id number]
--- NOTE | 2021-03-23 17:37 | P.PN ---
Subjective Date of Service: 03/23/21 Chief Complaint: Altered mental status Patient is maintained on 3 L oxygen by nasal cannula. Patient is not eating much. His blood sugar is down to 55 this afternoon. Blood pressure has improved and stable. Physical Examination - Vital Signs Temperature: 97.6 F Blood Pressure: 110/57 Pulse: 85 Respirations: 20 Pulse Ox (%): 96 - Physical Exam General: Alert, Other (Awake) HEENT: Mucous membr. moist/pink Neck: JVD not distended Respiratory: Diminished, Crackles/rales (Mild bibasilar rales) Cardiovascular: Regular rate/rhythm, Normal S1 S2 Gastrointestinal: Soft and benign, Non-distended Musculoskeletal: No swelling Integumentary: Other (Bilateral lower extremity xerosis) Neurological: Other (No focal motor deficit) Assessment And Plan - Current Problems (Diagnosis) (1) COVID-19 virus infection Current Visit: Yes Status: Acute (2) Altered mental status Current Visit: Yes Status: Acute Qualifiers: Altered mental status type: unspecified Qualified Code(s): R41.82 - Altered mental status, unspecified (3) Hypoglycemia Current Visit: Yes Status: Acute (4) ESRD on hemodialysis Onset Date: 12/22/15 Current Visit: Yes Status: Chronic (5) Anemia in CKD (chronic kidney disease) Onset Date: 12/22/15 Current Visit: No Status: Acute - Plan Patient with intermittent hypoglycemia due to poor oral intake. Cortisol level and TSH are within normal limit Further hemodialysis per nephrology Continue midodrine for hypotension. Echocardiogram is pending, troponin is negative. Patient to be seen by cardiology. Wean oxygen as possible Hypocalcemia likely secondary to vitamin-D deficiency. Hypocalcemia improved. Low 25-OH vitamin-D. Replacement per nephrology. Continue to monitor electrolytes. Antihypertensives on hold. Monitor blood pressure closely. Patient accepted for inpatient rehab at [facility]. Monitor for 1 more day to ensure patient is stable with respect to his blood pressure and blood sugar.
[2021-03-23] MEDS: TRAMADOL HCL 50 MG TAB PO PRN (21:24)
[2021-03-24 04:08] LABS: Absolute Lymphocytes (CBC) 0.5 K/uL (0.7-4.9); Basophils % 0.3 % (0-1.3); Hematocrit 35.9 % (39.6-49.0); Lymphocytes % 15.1 % (15.3-44.8); MPV 8.7 fL (7.6-11.3)
[2021-03-24 04:23] LABS: Albumin 2.3 g/dL (3.4-5.0); Bilirubin Total 0.9 mg/dL (0.2-1.0); Ferritin 1886.7 ng/mL (26-388); Phosphorus 3.8 mg/dL (2.5-4.9); Potassium 4.7 mmol/L (3.5-5.1); Protein, Total 5.6 g/dL (6.4-8.2)
[2021-03-24 04:38] LABS: Magnesium 1.4 mg/dL (1.8-2.4)
--- NOTE | 2021-03-24 06:28 | P.PN ---
Subjective Date of Service: 03/24/21 Chief Complaint: Altered mental status Subjective: No new changes (difficult to get answers from. and nursing state he gets in moods at times and can be stubborn. states he has been sleeping more and was complaining of R hip pain before admission. She states he never complained of left hip pain.) Review of Systems is unable to be obtained (Pt not wanting to answer questions) Physical Examination - Vital Signs Temperature: 97.6 F Blood Pressure: 126/65 Pulse: 85 Respirations: 22 Pulse Ox (%): 97 Assessment & Plan Physician Review Additional Text: Physical Exam Gen: Alert, oriented to self and hospital, then stopped answering questions HEENT: Normal conjunctiva, sclera anicteric Respiratory: bibasilar crackles, shallow inspiration on 3L NC Cardiovascular: Regular rate/rhythm, Normal S1 S2 Gastrointestinal: Soft, nontender, nondistended Neurological: No obvious focal motor deficit Problem list Acute hypoxemic respiratory failure secondary to COVID-19 pneumonia Acute metabolic encephalopathy, secondary to hypoglycemia/hypotension/COVID-19 Hypoglycemia Hypotension ESRD on hemodialysis Anemia in chronic kidney disease Patient with intermittent hypoglycemia due to poor oral intake. Cortisol level and TSH are within normal limit hemodialysis per nephrology Continue midodrine for hypotension. Patient to be seen by cardiology. Echo: notable for LA dilated CXR with worsening opacities, significantly elevated ferritin and CRP Oxygen requirement increased to 3 L nasal cannula, patient was fully vaccinated with Moderna in July/August of this year Low 25-OH vitamin-D. Replacement per nephrology. Monitor blood pressure closely. Patient accepted for inpatient rehab at [facility]. Patient needs to be more stable from BP / glc likely 2 more days prior to transfer possible developing AVN noted on CT at time of admission of LEFT femoral head. states patient was complaining of his RIGHT hip Time Spent Managing Pts Care (In Minutes): 40
[2021-03-24] MEDS: MIDODRINE HCL 5 MG TABLET PO SCH ×3 (07:52→19:36)
[2021-03-24] MEDS: MAGNESIUM OXIDE 400 MG TAB PO SCH (07:53)
[2021-03-24] MEDS ORDERED: D50W 25 GM/50 ML SYRINGE IV ONE ×2 (07:59→13:43)
--- NOTE | 2021-03-24 08:20 | ECHO ---
HEIGHT: 5 ft 11 in WEIGHT: 370 lb 0 oz DATE OF STUDY: 03/23/[address]: dorcas fox 2-DIMENSIONAL: YES M.MODE: YES DOPPLER: YES COLOR FLOW: YES TDS: YES PORTABLE: NO DEFINITY: NO BUBBLE STUDY: NO DIAGNOSIS: END STAGE RENAL DISEASE CARDIAC HISTORY: CATHERIZATION: YES SURGERY: NO PROSTHETIC VALVE: NO PACEMAKER: NO MEASUREMENTS (cm) DIASTOLIC (NORMALS) SYSTOLIC (NORMALS) IVSd 1.2 (0.6-1.2) LA Diam 4.8 (1.9-4.0) LVEF 72% LVIDd 4.3 (3.5-5.7) LVIDs 2.5 (2.0-3.5) %FS 41% LVPWd 1.2 (0.6-1.2) Ao Diam 3.2 (2.0-3.7) 2 DIMENSIONAL ASSESSMENT: RIGHT ATRIUM: NOT WELL SEEN LEFT ATRIUM: ENLARGED RIGHT VENTRICLE: NOT WELL SEEN LEFT VENTRICLE: NORMAL TRICUSPID VALVE: MILD TRICUSPID REGURGITATION MITRAL VALVE: MILD MITRAL REGURGITATION PULMONIC VALVE: NORMAL AORTIC VALVE: NORMAL PERICARDIAL EFFUSION: NONE AORTIC ROOT: NORMAL LEFT VENTRICULAR WALL MOTION: HYPERDYNAMIC. DOPPLER/COLOR FLOW: SEE BELOW. COMMENTS: HYPERDYNAMIC LEFT VENTRICLE WITH EJECTION FRACTION GREATER THAN 60%. NORMAL WALL MOTION. UNABLE TO SEE RIGHT VENTRICLE/RIGHT ATRIUM WELL. LEFT ATRIAL ENLARGEMENT. TECHNOLOGIST: JOSIE ALFARO
[2021-03-24] MEDS ORDERED: D50W 50 ML IV ONE (08:25)
--- NOTE | 2021-03-24 08:43 | RAD REPORT ---
EXAM DESCRIPTION: RAD - Chest Single View - 03/24/2021 4:49 am CLINICAL HISTORY: f/u effusions / pulm edema / RUL opacities Chest pain. COMPARISON: Chest Single View dated 03/20/2021; Chest Pa And Lat (2 Views) dated 04/29/2020; Chest Pa And Lat (2 Views) dated 12/05/2019; Chest Single View dated 12/16/2015 FINDINGS: Portable technique limits examination quality. Moderate bilateral pulmonary opacities are present most likely related to COVID-19 infection. Finding s are moderately worse relative to comparative study. The heart is mildly enlarged in size. No displa ary fractures. IMPRESSION: Moderate worsening in lung aeration since comparative study.
[2021-03-24] MEDS: ALBUMIN HUMAN 25% 50 ML IV SCH (11:45)
[2021-03-24] MEDS: TRAMADOL HCL 50 MG TAB PO PRN (12:49)
[2021-03-24] MEDS: dexAMETHasone 10 MG/ML VIAL IV SCH ×2 (13:02→19:33)
[2021-03-24 13:17] LABS: Arterial Blood Carboxyhemoglob 0.8 % (0-1.5); Blood Gas Oxyhemoglobin 97.3 % (94-97); Blood O2 Saturation 99.2 % (92-98.5)
[2021-03-25 03:56] LABS: Hematocrit 35.4 % (39.6-49.0); MPV 8.6 fL (7.6-11.3); RBC Red Blood Cell Count 4.41 M/uL (4.33-5.43)
[2021-03-25 05:00] LABS: Albumin 2.4 g/dL (3.4-5.0); Bilirubin Total 0.8 mg/dL (0.2-1.0); Ferritin 2021.4 ng/mL (26-388); Magnesium 1.7 mg/dL (1.8-2.4); Potassium 4.9 mmol/L (3.5-5.1); Protein, Total 5.8 g/dL (6.4-8.2)
--- NOTE | 2021-03-25 05:52 | P.PN ---
Subjective Date of Service: 03/25/21 Chief Complaint: Altered mental status Subjective: Other (refusing to answer questions this morning. states to leave him alone. spoke with , states he has been more sleepy and agitated over the last 2-3 weeks) Review of Systems is unable to be obtained Physical Examination - Vital Signs Temperature: 97.1 F Blood Pressure: 95/58 Pulse: 79 Respirations: 19 Pulse Ox (%): 94 Assessment & Plan Physician Review Additional Text: Physical Exam Gen: Alert, oriented to self and year, then stopped answering questions HEENT: Normal conjunctiva, sclera anicteric Respiratory: bibasilar crackles, shallow inspiration on 3L NC Cardiovascular: Regular rate/rhythm, Normal S1 S2 Gastrointestinal: Soft, nontender, nondistended Neurological: difficult to examine, not participating Problem list Acute hypoxemic respiratory failure secondary to COVID-19 pneumonia Acute metabolic encephalopathy, secondary to hypoglycemia/hypotension/COVID-19 Hypoglycemia Hypotension ESRD on hemodialysis Anemia in chronic kidney disease Patient with intermittent hypoglycemia due to poor oral intake. Cortisol level and TSH are within normal limit hemodialysis per nephrology Continue midodrine for hypotension. Cardiology consulted. Echo: notable for LA dilated CXR with worsening opacities, significantly elevated ferritin and CRP Oxygen requirement increased to 3 L nasal cannula, patient was fully vaccinated with Moderna in July/August of this year Low 25-OH vitamin-D. Replacement per nephrology. Monitor blood pressure closely. Patient accepted for inpatient rehab at [facility]. Patient needs to be more stable from BP / Glc. Pt unlikely to participate 3hrs possible developing AVN noted on CT at time of admission of LEFT femoral head. states patient was complaining of his RIGHT hip suspect COVID encephalopathy continue steroids, monitor inflammatory markers Dispo: discussed with at bedside. patient is not participating in his care, minimal PO intake, not wanting to answer questions difficult to fully assess the patient. If continues with low PO intake, may need to consider dobhoff, PPN possibly but want to avoid excess fluids in dialysis patient Time Spent Managing Pts Care (In Minutes): 35
[2021-03-25] MEDS: dexAMETHasone 10 MG/ML VIAL IV SCH ×2 (08:18→20:58)
[2021-03-25] MEDS: DOCUSATE NA 100 MG CAP PO SCH ×2 (08:18→21:00)
[2021-03-25] MEDS: APIXABAN 2.5 MG TABLET PO SCH ×2 (08:18→21:00)
[2021-03-25] MEDS: MIDODRINE HCL 5 MG TABLET PO SCH ×3 (08:19→20:58)
[2021-03-25] MEDS: MAGNESIUM OXIDE 400 MG TAB PO SCH (08:19)
[2021-03-25] MEDS: TRAMADOL HCL 50 MG TAB PO PRN (10:14)
--- NOTE | 2021-03-25 21:13 | P.PN ---
Date of Service: 03/25/21 Vital Signs Temp Pulse Resp BP Pulse Ox 97.6 F 88 20 161/85 H 94 03/25/21 16:00 03/25/21 16:00 03/25/21 16:00 03/25/21 16:00 03/25/21 16:00 Medications Acetaminophen (Acetaminophen 500 Mg Tab) 500 mg PO Q6H PRN PRN Reason: Pain scale 2-4 (Mild) Last Admin: 03/22/21 03:04 Dose: 500 mg Documented by: Apixaban (Apixaban 2.5 Mg Tablet) 2.5 mg PO BID [facility] Last Admin: 03/25/21 08:18 Dose: 2.5 mg Documented by: Dexamethasone (Dexamethasone 10 Mg/Ml Vial) 6 mg IV BID [facility] Last Admin: 03/25/21 20:58 Dose: 6 mg Documented by: Docusate Sodium (Docusate Na 100 Mg Cap) 100 mg PO BID [facility] Last Admin: 03/25/21 08:18 Dose: 100 mg Documented by: Ergocalciferol (Drisdol (Vitamin D=Ergocalciferol) 82561 Unit Cap) 50,000 unit PO Q7D@0900 [facility] Last Admin: 03/22/21 12:00 Dose: 50,000 unit Documented by: Albumin Human (Albumin 25%) 50 mls @ 100 mls/hr IV EVERY HD [facility] Last Admin: 03/24/21 11:45 Dose: 50 mls Documented by: Magnesium Oxide (Magnesium Oxide 400 Mg Tab) 400 mg PO DAILY [facility] Last Admin: 03/25/21 08:19 Dose: 400 mg Documented by: Midodrine (Midodrine Hcl 5 Mg Tablet) 5 mg PO TID [facility] Last Admin: 03/25/21 20:58 Dose: 5 mg Documented by: Ondansetron HCl (Ondansetron 4 Mg/2 Ml Vial) 4 mg IV Q4H PRN PRN Reason: NAUSEA / VOMITING Last Admin: 03/23/21 16:15 Dose: 4 mg Documented by: Sodium Chloride (Flush Normal Saline 10 Ml) 10 ml IV BID [facility] Last Admin: 03/25/21 08:19 Dose: 10 ml Documented by: Tramadol HCl (Tramadol Hcl 50 Mg Tab) 50 mg PO PRN PRN PRN Reason: Pain scale 5-7 (Moderate) Last Admin: 03/25/21 10:14 Dose: 50 mg Documented by: Assessment/ Plan: Nephrology Progress Note Limited IH/ ROS due to AMS No acute events overnight Vitals, medications blood work and imaging reviewed in the chart NAD. Obese. NCAT. MMM. Neck supple. CTA. RRR. ND Abd. No C/C/E. AAO. Normal speech. A/P Continue current POC and Medications other than the changes listed. AM labs as ordered. Recommend daily weight. ESRD -HD TIW Chronic hypotension -Continue Midodrine Diastolic CHF, chronic -Low sodium diet Moderate malnutrition -Encourage nutrition Anemia in CKD -Start Retacrit CKD MBD -Continue Vitamin D Toxic metabolic encephalopathy COVID-19 PNA Acute hypoxic respiratory failure -Continue Dexamethasone -Continue Oxygen
--- NOTE | 2021-03-25 23:12 | CON ---
Consultation called because of occasional postural tremors or shaking in the hands and altered mental status. History Of Present Illness: Mr. Raya is a 65-year-old right-handed patient with end-stage renal d isease, on hemodialysis 3 times weekly, who was brought to the [facility] because of worseni ng coordination, frequent falls and tremors as noted. Today, the patient is admitted on March. His blood sugar was 254. He was given oral glucose, seen in the emergency room and his bloo d sugar is elevated to 158. He had minor electrolyte abnormalities as well. It is also noted that t he patient has had more fatigue, poor balance, loss of strength in the lower extremities and falls. He was previously seen in my clinic and MRI of the lumbar spine was done 1 year ago, March 2020. That study identified multilevel degenerative disease with mild to moderate L4-5 and L5-S1 root comp ression. However, the findings were not cortical, did not require surgery, and the patient should oliveira ve actually been on physical therapy to help improve his gait, coordination, balance, and to have him to learn how to use a walker for more stable ambulation. That was not done. The patient has also had some postural tremors when moving the hand where he would extend the upper e xtremities, actually the hand would flap down a few times and then as the hand rests down, the shakin g would stop. His brain MRI done on the showed no acute ischemic or hemorrhagic change. There was no significant chronic ischemic changes identified as well. There was minimal atrophy, which glen wed a little progression from a study compared to 2016. His complete blood count with differential s howed slightly low WBCs and hemoglobin. Coagulation panel was unremarkable. His chemistries showed the obviously elevated creatinine of 7.67 today. Glucose rate 101 to 123. Ferritin was very elevate d. Liver function studies showed elevated AST of 80, alkaline phosphate is 130. C-reactive protein elevated to 120. His vitamin D level was very low at 12.7 and his COVID-19 test was positive. Past Medical History: As indicated including hypertension, gout, diverticulitis, trace asbestosis. Past Surgical History: Cardiac catheterization, appendectomy, cholecystectomy, and left knee scope. Allergies: AMLODIPINE, AMOXICILLIN, CLAVULANIC ACID. Medications: Sensipar at bedtime, Colace 1 twice daily, lopressor 100 mg twice daily, Prilosec 40 mg daily, Zocor 20 mg at bedtime, allopurinol 100 mg at bedtime, clonidine patch 0.3 mg as needed, Eliq uis 2.5 mg twice daily, folate with multivitamin, gabapentin 300 mg 3 times daily, tramadol 50 mg as needed daily, Pentasa 4 tablets twice daily, Meridian-3 soft gel twice daily. Social History: No alcohol, tobacco, or IV drug use. The patient resides at home with family. Review of Systems: The patient has had difficulty with his gait, his balance, coordination, tendency to fall and also oliveira s some disorientation and tremors as noted. Otherwise, no fevers or chills. No nausea or vomiting. There is mild myalgia and arthralgia and otherwise negative. Physical Examination: Vital Signs: Blood pressure 161/85, pulse 88, respiratory rate 20, temperature 97.6, oxygen saturati on 94%. Weight 370 pounds, 5 feet 11 inch, BMI 51.6. General: Mr. Raya is lying in bed. He is in no significant distress. HEENT: He is normocephalic, atraumatic. Sclerae anicteric. Oropharynx is moist. Lips do appear so mewhat chapped and dry, otherwise intact. Lungs: He has good air movement. Abdomen: Obese. Extremities: Show mild edema in the lower legs. Neurological: He is alert and oriented to person and situation. He follows instructions appropriate ly. No obvious cranial nerve deficits on 2 through 12. Motor examination, he has no obvious weaknes s in upper and lower extremities. Coordination, does have a mild postural-related tremor in the righ t and left upper extremities. Otherwise, tone appears normal. Symmetric reflexes. He will be ambul ated with physical therapists. They attempted to get the patient up, but he refused. They will atte mpt to ambulate him again tomorrow. Assessment: Mr. Raya is a 65-year-old patient with multiple reasons for possible tremor, which ma y be identified as asterixis that can be seen with liver and kidney dysfunction, which the patient oliveira s both. He is also COVID-19 positive and is a contributing factor. He does not have a stroke by bra in MRI. No evidence of any significant brain atrophy as well. He does not have evidence of a system ic bacterial infection and his creatinine is chronically elevated related to his renal failure. Ammo maxx level done on the was normal. Plan: The patient's tremor may be difficult to address in the presence of his chronic renal failure and liver dysfunction. I do not suggest treating with beta blockers or primidone, although that some times can be helpful with dialysis and reassurance of the family that the tremor is not seizure or no t due to stroke will be helpful and the tremors usually are self-limited and not disruptive to the pa tieolesya's ability to carry out his daily activities. At this point, he does have a low vitamin D level and should be placed on vitamin D replacement, perhaps 25,000 units daily for about 3 days, then 500 0 units twice daily. He is actually now on 50,000 units once weekly. The patient will be followed a s necessary. NITHIN/TRENT Voice ID: [id number] Report ID: [id number]
[2021-03-26 03:50] LABS: Hematocrit 39.5 % (39.6-49.0); MPV 8.6 fL (7.6-11.3); RBC Red Blood Cell Count 4.95 M/uL (4.33-5.43)
[2021-03-26 04:30] LABS: Albumin 2.5 g/dL (3.4-5.0); C-Reactive Protein 68.9 mg/L (<3.00); Ferritin 2931.8 ng/mL (26-388); Phosphorus 3.2 mg/dL (2.5-4.9); Potassium 4.9 mmol/L (3.5-5.1); Protein, Total 6.1 g/dL (6.4-8.2); Uric Acid 4.9 mg/dL (3.5-7.2)
--- NOTE | 2021-03-26 06:54 | P.PN ---
Subjective Date of Service: 03/26/21 Chief Complaint: Altered mental status Subjective: No new changes (slightly more awake/alert this morning, oriented to self and year, confused. denies pain, denies SOB) Review of Systems 10-point ROS is otherwise unremarkable Physical Examination - Vital Signs Temperature: 97.4 F Blood Pressure: 121/69 Pulse: 88 Respirations: 18 Pulse Ox (%): 97 Assessment & Plan Physician Review Additional Text: Physical Exam Gen: Alert, oriented to self and year HEENT: Normal conjunctiva, sclera anicteric Respiratory: shallow inspiration on 4L NC Cardiovascular: Regular rate/rhythm, Normal S1 S2 Gastrointestinal: Soft, nontender, nondistended Neurological: difficult to examine, not participating, moves all extremities, EOMI Problem list Acute hypoxemic respiratory failure secondary to COVID-19 pneumonia Acute metabolic encephalopathy, secondary to hypoglycemia/hypotension/COVID-19 Hypoglycemia Hypotension ESRD on hemodialysis Anemia in chronic kidney disease Patient with intermittent hypoglycemia due to poor oral intake. Eats more when family bring home cooked meals Cortisol level and TSH are within normal limit hemodialysis per nephrology Continue midodrine for hypotension. Cardiology consulted. Echo: notable for LA dilatation CXR with worsening opacities, significantly elevated ferritin and CRP Oxygen requirement increased to 4L NC now, patient was fully vaccinated with Moderna in July/August of this year Low 25-OH vitamin-D. Replacement per nephrology. Patient accepted for inpatient rehab at [facility]. Patient needs to be more stable from BP / Glc possible developing AVN noted on CT at time of admission of LEFT femoral head. states patient was complaining of his RIGHT hip suspect COVID encephalopathy. neuro consulted, CT/MRI negative, EEG ordered continue steroids, monitor inflammatory markers Dispo: discussed with at bedside on 03/25. patient is not participating in his care, minimal PO intake, not wanting to answer questions difficult to fully assess the patient. If continues with low PO intake, may need to consider dobhoff, PPN possibly but want to avoid excess fluids in dialysis patient slightly improved today possible rehab in 2-3 days Time Spent Managing Pts Care (In Minutes): 35
[2021-03-26] MEDS: dexAMETHasone 10 MG/ML VIAL IV SCH ×2 (07:37→21:33)
[2021-03-26] MEDS: CALCITROL 0.25 MCG CAP PO SCH (07:37)
[2021-03-26] MEDS: TRAMADOL HCL 50 MG TAB PO PRN ×2 (07:38→21:33)
[2021-03-26] MEDS: MIDODRINE HCL 5 MG TABLET PO SCH ×3 (07:38→21:32)
[2021-03-26] MEDS: APIXABAN 2.5 MG TABLET PO SCH ×2 (07:38→21:33)
[2021-03-26] MEDS: MAGNESIUM OXIDE 400 MG TAB PO SCH (07:38)
[2021-03-26] MEDS: DOCUSATE NA 100 MG CAP PO SCH ×2 (07:38→21:32)
--- NOTE | 2021-03-26 07:52 | RAD REPORT ---
EXAM DESCRIPTION: RAD - Chest Single View - 03/26/2021 7:16 am CLINICAL HISTORY: worsening hypoxia, covid, ESRD COMPARISON: March 24 TECHNIQUE: AP portable chest image was obtained 03/26/2021 7:16 am . FINDINGS: Lung volumes are low. Interstitial and alveolar opacities are present. Adjusting for rotat ion and lung volume differences, there has been no improvement. Cardiomediastinal silhouette is prominent but stable. No measurable pleural effusion and no pneumoth orax. No acute bony abnormality seen. No acute aortic findings suspected. IMPRESSION: Moderate bilateral airspace opacification not clearly different from comparison.
[2021-03-26] MEDS: NEPRO SHAKE 237 ML CAN PO SCH ×3 (09:00→21:00)
[2021-03-26 10:38] LABS: Vitamin D 1,25-Dihydroxy Total 18 pg/mL (18-72); Vitamin D,1,25-OH2, D2 <8 pg/mL
--- NOTE | 2021-03-26 19:46 | P.PN ---
Date of Service: 03/26/21 Vital Signs Temp Pulse Resp BP Pulse Ox 97.4 F 88 18 121/69 97 03/26/21 16:52 03/26/21 16:52 03/26/21 16:52 03/26/21 16:52 03/26/21 16:52 Medications Acetaminophen (Acetaminophen 500 Mg Tab) 500 mg PO Q6H PRN PRN Reason: Pain scale 2-4 (Mild) Last Admin: 03/22/21 03:04 Dose: 500 mg Documented by: Apixaban (Apixaban 2.5 Mg Tablet) 2.5 mg PO BID [facility] Last Admin: 03/26/21 07:38 Dose: 2.5 mg Documented by: Calcitriol (Calcitrol 0.25 Mcg Cap) 0.5 mcg PO DAILY [facility] Last Admin: 03/26/21 07:37 Dose: 0.5 mcg Documented by: Dexamethasone (Dexamethasone 10 Mg/Ml Vial) 6 mg IV BID [facility] Last Admin: 03/26/21 07:37 Dose: 6 mg Documented by: Docusate Sodium (Docusate Na 100 Mg Cap) 100 mg PO BID [facility] Last Admin: 03/26/21 07:38 Dose: 100 mg Documented by: Enteral Nutritional Formula (Nepro Shake 237 Ml Can) 237 ml PO TID [facility] Last Admin: 03/26/21 14:00 Dose: Not Given Documented by: Epoetin Wes (Epoetin 4,000 Unit/Ml Vial) 4,000 unit SQ M,W,F [facility] Ergocalciferol (Drisdol (Vitamin D=Ergocalciferol) 89173 Unit Cap) 50,000 unit PO Q7D@0900 [facility] Last Admin: 03/22/21 12:00 Dose: 50,000 unit Documented by: Albumin Human (Albumin 25%) 50 mls @ 100 mls/hr IV EVERY HD [facility] Last Admin: 03/24/21 11:45 Dose: 50 mls Documented by: Magnesium Oxide (Magnesium Oxide 400 Mg Tab) 400 mg PO DAILY [facility] Last Admin: 03/26/21 07:38 Dose: 400 mg Documented by: Midodrine (Midodrine Hcl 5 Mg Tablet) 5 mg PO TID [facility] Last Admin: 03/26/21 17:53 Dose: 5 mg Documented by: Ondansetron HCl (Ondansetron 4 Mg/2 Ml Vial) 4 mg IV Q4H PRN PRN Reason: NAUSEA / VOMITING Last Admin: 03/23/21 16:15 Dose: 4 mg Documented by: Sodium Chloride (Flush Normal Saline 10 Ml) 10 ml IV BID [facility] Last Admin: 03/26/21 07:40 Dose: 10 ml Documented by: Tramadol HCl (Tramadol Hcl 50 Mg Tab) 50 mg PO PRN PRN PRN Reason: Pain scale 5-7 (Moderate) Last Admin: 03/26/21 07:38 Dose: 50 mg Documented by: Assessment/ Plan: Nephrology Progress Note Limited IH/ ROS due to AMS No acute events overnight Vitals, medications blood work and imaging reviewed in the chart NAD. Obese. NCAT. MMM. Neck supple. Diminished. RRR. ND Abd. No C/C/E. Awake. Normal speech. A/P Continue current POC and Medications other than the changes listed. AM labs as ordered. Recommend daily weight. ESRD -HD TIW Chronic hypotension -Continue Midodrine Diastolic CHF, chronic -Low sodium diet -HD with UF Moderate malnutrition -Encourage nutrition Anemia in CKD -Continue Retacrit CKD MBD -Continue Vitamin D Toxic metabolic encephalopathy of unclear etiology -COVID vs steroid encephalopathy COVID-19 PNA Acute hypoxic respiratory failure -Continue Dexamethasone -Continue Oxygen Case reviewed with Dr. Anand
--- NOTE | 2021-03-27 06:20 | P.PN ---
Subjective Date of Service: 03/27/21 Chief Complaint: Altered mental status Subjective: Improving (Seems to be more awake/alert this morning, following more commands, still with some confusion, oriented x2) Review of Systems 10-point ROS is otherwise unremarkable Physical Examination - Vital Signs Temperature: 97 F Blood Pressure: 125/63 Pulse: 105 Respirations: 18 Pulse Ox (%): 96 Assessment & Plan Physician Review Additional Text: Physical Exam Gen: Alert, oriented to self and year HEENT: Normal conjunctiva, sclera anicteric Respiratory: Nonlabored on 2 L nasal cannula Cardiovascular: Regular rate/rhythm, Normal S1 S2 Gastrointestinal: Soft, nontender, nondistended Neurological: moves extremities, EOMI, confusion Problem list Acute hypoxemic respiratory failure secondary to COVID-19 pneumonia Acute metabolic encephalopathy, secondary to hypoglycemia/hypotension/COVID-19 Hypoglycemia Hypotension ESRD on hemodialysis Anemia in chronic kidney disease Patient with intermittent hypoglycemia due to poor oral intake earlier in hospitalization Cortisol level and TSH are within normal limit Hemodialysis per nephrology Continue midodrine for hypotension. Cardiology consulted. Echo: notable for LA dilatation CXR with worsening opacities, now stable O2 requirement now improving Patient was fully vaccinated with Moderna in July/August of this year Low 25-OH vitamin-D. Replacement per nephrology. Patient accepted for inpatient rehab at [facility]. Patient needs to be more stable from BP / Glc aspect possible developing AVN noted on CT at time of admission of LEFT femoral head. states patient was complaining of his RIGHT hip suspect COVID encephalopathy. neuro consulted, CT/MRI negative, EEG ordered, neuro in agreement this may be a prolonged symptom continue steroids, inflammatory markers improving Dispo: possible rehab in ~2 days Time Spent Managing Pts Care (In Minutes): 35
[2021-03-27 07:01] LABS: MPV 7.7 fL (7.6-11.3); RBC Red Blood Cell Count 4.81 M/uL (4.33-5.43)
[2021-03-27 07:49] LABS: Bilirubin Total 1.3 mg/dL (0.2-1.0); C-Reactive Protein 42.8 mg/L (<3.00); Ferritin 1993.2 ng/mL (26-388); Magnesium 2.5 mg/dL (1.8-2.4); Potassium 4.7 mmol/L (3.5-5.1); Protein, Total 6.2 g/dL (6.4-8.2)
[2021-03-27] MEDS: MAGNESIUM OXIDE 400 MG TAB PO SCH (09:00)
[2021-03-27] MEDS: NEPRO SHAKE 237 ML CAN PO SCH ×3 (09:00→20:56)
[2021-03-27 09:10] LABS: Anisocytosis 2+; Blood Morphology Comment NOTED (NOT SEEN); Ovalocytes 1+; Platelet Estimate ADEQ; Target Cells 1+; White Blood Cell Scan OK (OK)
[2021-03-27] MEDS: CALCITROL 0.25 MCG CAP PO SCH (09:14)
[2021-03-27] MEDS: DOCUSATE NA 100 MG CAP PO SCH ×2 (09:14→20:56)
[2021-03-27] MEDS: MIDODRINE HCL 5 MG TABLET PO SCH ×3 (09:14→20:55)
[2021-03-27] MEDS: dexAMETHasone 4 MG TAB PO SCH ×2 (09:14→20:55)
[2021-03-27] MEDS: APIXABAN 2.5 MG TABLET PO SCH ×2 (09:15→20:55)
--- NOTE | 2021-03-27 15:13 | CON ---
Date of Consultation: 03/23/2021 Reason For Consultation: Altered mental status and weakness as well as atrial fibrillation. History Of Present Illness: Mr. Raya is a 65-year-old with known history of hypertension. He is on hemodialysis secondary to end-stage renal disease, has a history of diverticulitis, chronic atrial fibrillation. He came in with altered mental status, weakness; was found to have low calcium, low m agnesium, low blood pressure, and I was consulted. The patient denied any chest pain. He denied any syncope. Denied any unexplained nausea or vomiting or diaphoresis. Denied PND, orthopnea, pedal ed xavier. Denied any fever or chills. Allergies: THE PATIENT IS ALLERGIC TO AUGMENTIN AND NORVASC. Medications: At home include metoprolol, Eliquis, and clonidine. Review of Systems: Negative. Social History: Negative. Family History: Negative. Physical Examination: General: Mental status was adequate, though he was alert and oriented to name and place. Vital Signs: Stable. Chronic atrial fibrillation, rate controlled. HEENT: Negative. Neck: Supple. No bruit. Chest: Clear. Cardiac: Revealed atrial fibrillation, rate of about 70. No murmurs, gallops, or rubs. Abdomen: Obese, but benign. Extremities: Revealed chronic venous insufficiency changes, 1+ edema. Diagnostic Data: EKG showed atrial fibrillation, rate of 100. He had low calcium, low magnesium. Impression And Plan: Altered mental status and weakness secondary to low blood pressure, low calcium , and low magnesium. These need to be supplemented. Nephrology is handling his case. Regarding his blood pressure, we will hold his antihypertensive, hydrate him gently. He has dialysis pending toda y. His other problems including chronic atrial fibrillation for which he should continue the Eliquis and metoprolol whenever he can handle it. His blood pressure is low and as discussed earlier, we wi ll hydrate him, hold his blood pressure . Echocardiogram is pending. I will continue to f ericalow as needed. No other cardiac workup recommended at this point. SALVATORE/TRENT Voice ID: [id number] Report ID: [id number]
[2021-03-27] MEDS: EPOETIN 4,000 UNIT/ML VIAL SQ SCH (16:02)
--- NOTE | 2021-03-27 16:28 | PN ---
Date of Progress Note: 03/24/2021 Mr. Raya had came in with altered mental status. He is on hemodialysis. He had low calcium, low blood pressure, low magnesium. He is in chronic atrial fibrillation, on Eliquis. Echocardiogram glen wed a hyperdynamic left ventricle with an ejection fraction more than 60%. No wall motion abnormalit y. There was no effusion. No obvious thrombus. He is being followed by Nephrology as well as Neuro logy. He is stable from a cardiovascular standpoint. His AFib is chronic. I think he should remain on Eliquis. No further cardiac workup at this point. Continue treatment as per admitting physician , Nephrology and Neurology. I will be available for questions if the need arises. SALVATORE/TRENT Voice ID: [id number] Report ID: [id number]
--- NOTE | 2021-03-27 21:06 | P.PN ---
Date of Service: 03/27/21 Vital Signs Temp Pulse Resp BP Pulse Ox 97 F 105 H 18 125/63 96 03/27/21 17:04 03/27/21 17:04 03/27/21 17:04 03/27/21 17:04 03/27/21 17:04 Medications Acetaminophen (Acetaminophen 500 Mg Tab) 500 mg PO Q6H PRN PRN Reason: Pain scale 2-4 (Mild) Last Admin: 03/22/21 03:04 Dose: 500 mg Documented by: Apixaban (Apixaban 2.5 Mg Tablet) 2.5 mg PO BID [facility] Last Admin: 03/27/21 20:55 Dose: 2.5 mg Documented by: Calcitriol (Calcitrol 0.25 Mcg Cap) 0.5 mcg PO DAILY [facility] Last Admin: 03/27/21 09:14 Dose: 0.5 mcg Documented by: Dexamethasone (Dexamethasone 4 Mg Tab) 6 mg PO BID [facility] Last Admin: 03/27/21 20:55 Dose: 6 mg Documented by: Docusate Sodium (Docusate Na 100 Mg Cap) 100 mg PO BID [facility] Last Admin: 03/27/21 20:56 Dose: Not Given Documented by: Enteral Nutritional Formula (Nepro Shake 237 Ml Can) 237 ml PO TID [facility] Last Admin: 03/27/21 20:56 Dose: Not Given Documented by: Epoetin Wes (Epoetin 4,000 Unit/Ml Vial) 4,000 unit SQ M,W,F [facility] Last Admin: 03/27/21 16:02 Dose: 4,000 unit Documented by: Ergocalciferol (Drisdol (Vitamin D=Ergocalciferol) 32112 Unit Cap) 50,000 unit PO Q7D@0900 [facility] Last Admin: 03/22/21 12:00 Dose: 50,000 unit Documented by: Albumin Human (Albumin 25%) 50 mls @ 100 mls/hr IV EVERY HD [facility] Last Admin: 03/24/21 11:45 Dose: 50 mls Documented by: Magnesium Oxide (Magnesium Oxide 400 Mg Tab) 400 mg PO DAILY [facility] Last Admin: 03/27/21 09:00 Dose: 400 mg Documented by: Midodrine (Midodrine Hcl 5 Mg Tablet) 5 mg PO TID [facility] Last Admin: 03/27/21 20:55 Dose: 5 mg Documented by: Ondansetron HCl (Ondansetron 4 Mg/2 Ml Vial) 4 mg IV Q4H PRN PRN Reason: NAUSEA / VOMITING Last Admin: 03/23/21 16:15 Dose: 4 mg Documented by: Sodium Chloride (Flush Normal Saline 10 Ml) 10 ml IV BID [facility] Last Admin: 03/27/21 20:57 Dose: 10 ml Documented by: Assessment/ Plan: Nephrology Progress Note Limited IH/ ROS due to AMS No acute events overnight Vitals, medications blood work and imaging reviewed in the chart NAD. Obese. NCAT. MMM. Neck supple. Diminished. RRR. ND Abd. No C/C/E. Awake. Normal speech. A/P Continue current POC and Medications other than the changes listed. AM labs as ordered. Recommend daily weight. ESRD -HD TIW Chronic hypotension -Continue Midodrine Diastolic CHF, chronic -Low sodium diet -HD with UF Moderate malnutrition -Encourage nutrition Anemia in CKD -Continue Retacrit CKD MBD -Continue Vitamin D Toxic metabolic encephalopathy of unclear etiology -COVID vs steroid encephalopathy COVID-19 PNA Acute hypoxic respiratory failure -Continue Dexamethasone -Continue Oxygen
--- NOTE | 2021-03-27 22:26 | PN ---
Subjective: Mr. Raya is resting in bed. He is in no significant distress. His lunch is at the [employer] [facility]. He has not had that yet. He has no complaints. Objective: Vital Signs: Blood pressure 125/63, pulse ranged 94 up to 112, temperature 97.3, oxygen saturation 96%. General: Mr. Raya is noted resting in bed. His hospital gown is off at the top. He does not hav e focal findings in terms of face, arm, leg. He does not have any tremor at this point. He is able to move the arms equally well and he is able to hold his hands hyperextended without a flap noted and his legs move around without tremors noted. He does not have hypertonia. Laboratory Studies: White blood cell count 9.9, hemoglobin 12.1. Creatinine today is 7.23. His kristen lysis was yesterday and again will be done tomorrow. Ammonia level less than 17. Glucose ranged fro m 85 to 108. C-reactive protein elevated to 42.8. It should be noted that he is also COVID positive . Assessment: Mr. Raya is a 65-year-old patient with multiple reasons for tremor including liver an d renal dysfunction. However, at this point, he does not exhibit any obvious tremor, which is likely to be asterixis or negative myoclonus. He is at baseline level of cognitive functioning and may nicholas efit from a trial of Aricept or Namenda. Once the patient is discharged, he should follow up in Dr. Simeon's clinic for workup. NITHIN/TRENT Voice ID: [id number] Report ID: [id number]
--- NOTE | 2021-03-28 06:28 | P.PN ---
Subjective Date of Service: 03/28/21 Chief Complaint: Altered mental status Subjective: Improving (Patient no longer requiring oxygen, inflammatory markers improving. To have dialysis today. More awake/alert, oriented x2, still with confusion and memory issues. Follows some commands. Does not remember that he is and has kids) Review of Systems 10-point ROS is otherwise unremarkable Physical Examination - Vital Signs Temperature: 97.3 F Blood Pressure: 160/84 Pulse: 89 Respirations: 20 Pulse Ox (%): 93 Assessment & Plan Physician Review Additional Text: Physical Exam Gen: Alert, oriented to self and year HEENT: Normal conjunctiva, sclera anicteric Respiratory: Nonlabored on room air Cardiovascular: Regular rate/rhythm, Normal S1 S2 Gastrointestinal: Soft, nontender, nondistended Neurological: moves all extremities, EOMI, confusion Problem list Acute hypoxemic respiratory failure secondary to COVID-19 pneumonia Acute metabolic encephalopathy, secondary to hypoglycemia/hypotension/COVID-19 Hypoglycemia Hypotension ESRD on hemodialysis Anemia in chronic kidney disease No longer having hypoglycemic episodes -was not eating Cortisol level and TSH are within normal limit Patient became hypoxic and required more oxygen, was started on steroids for COVID-19 pneumonia with improvement Now breathing comfortably on room air Steroids also assisting to prevent hypoglycemia Family stated patient is a picky eater, does not like the food here in the hospital. He does eat better when family bring food from home Cardiology consulted. Echo: notable for LA dilatation Patient was fully vaccinated with Moderna in July/August of this year Low 25-OH vitamin-D. Replacement per nephrology. possible developing AVN noted on CT at time of admission of LEFT femoral head. states patient was complaining of his RIGHT hip suspect COVID encephalopathy. neuro consulted, CT/MRI negative, EEG ordered, neuro in agreement this may be a prolonged symptom continue steroids, inflammatory markers improving Patient accepted for inpatient rehab at [facility] Updated clinicals to be sent today, patient appears stable, very weak/debilitated Will need physical therapy and assistance as he recovers from COVID-19, and hopefully further improvement of his encephalopathy Dispo: possible dc to rehab in ~1 day Time Spent Managing Pts Care (In Minutes): 35
[2021-03-28] MEDS ORDERED: METOPROLOL TAR 25 MG TAB PO SCH (07:00)
[2021-03-28 08:02] LABS: Absolute Lymphocytes (CBC) 0.3 K/uL (0.7-4.9); Basophils % 0.1 % (0-1.3); Hematocrit 40.1 % (39.6-49.0); Lymphocytes % 3.4 % (15.3-44.8); MPV 8.2 fL (7.6-11.3)
[2021-03-28] MEDS: DOCUSATE NA 100 MG CAP PO SCH ×2 (08:36→22:24)
[2021-03-28] MEDS: MAGNESIUM OXIDE 400 MG TAB PO SCH (08:37)
[2021-03-28] MEDS: APIXABAN 2.5 MG TABLET PO SCH ×2 (08:37→22:24)
[2021-03-28] MEDS: CALCITROL 0.25 MCG CAP PO SCH (08:37)
[2021-03-28] MEDS: dexAMETHasone 4 MG TAB PO SCH ×2 (08:37→22:24)
[2021-03-28] MEDS: NEPRO SHAKE 237 ML CAN PO SCH ×3 (08:37→21:00)
[2021-03-28] MEDS: MIDODRINE HCL 5 MG TABLET PO SCH ×3 (08:37→21:00)
[2021-03-28 08:44] LABS: Albumin 2.8 g/dL (3.4-5.0); Bilirubin Total 1.5 mg/dL (0.2-1.0); C-Reactive Protein 32.2 mg/L (<3.00); Ferritin 1716.1 ng/mL (26-388); Magnesium 2.6 mg/dL (1.8-2.4); Potassium 5.2 mmol/L (3.5-5.1); Protein, Total 6.4 g/dL (6.4-8.2)
[2021-03-28 09:12] LABS: Blood Morphology Comment NOT SEEN (NOT SEEN); Platelet Estimate ADEQ
--- NOTE | 2021-03-28 10:56 | RAD REPORT ---
EXAM DESCRIPTION: RAD - Chest Single View - 03/28/2021 10:03 am CLINICAL HISTORY: hypoxia, COVID, f/u opacities COMPARISON: Portable chest March 26 TECHNIQUE: AP portable chest image was obtained 03/28/2021 10:03 am . FINDINGS: Lung volumes are low. Bilateral lung parenchymal opacification present not substantially d ifferent. There may be slight improvement, minimal in degree. No evidence of progression. Heart and v asculature are normal. No measurable pleural effusion and no pneumothorax. No acute bony abnormality seen. No acute aortic findings suspected. IMPRESSION: Bilateral COVID-19 pneumonia findings similar or fractionally improved from March 26 .
[2021-03-28] MEDS: ALBUMIN HUMAN 25% 50 ML IV SCH (11:30)
[2021-03-28] MEDS ORDERED: HEPARIN 5000 UNIT/ML 1 ML VIAL SQ ONE (23:11)
--- NOTE | 2021-03-29 06:27 | P.PN ---
Subjective Date of Service: 03/29/21 Chief Complaint: Altered mental status Subjective: Other (remains confused, awake/alert but oriented to year only. does not remember where he is, does not remember he is or has children. denies any pain/dysuria/diarrhea/shortness of breath. nursing reports patient refused meds and food) Review of Systems 10-point ROS is otherwise unremarkable Physical Examination - Vital Signs Temperature: 97.3 F Blood Pressure: 118/68 Pulse: 87 Respirations: 18 Pulse Ox (%): 93 Assessment & Plan Physician Review Additional Text: Physical Exam Gen: Alert, oriented to self and year, confused HEENT: Normal conjunctiva, sclera anicteric Respiratory: Non-labored on room air Cardiovascular: irregular rhythm, rate: 80s Gastrointestinal: Soft, nontender, nondistended Neurological: moves all extremities equally, EOMI, confusion, follows basic commands. Problem list Acute hypoxemic respiratory failure secondary to COVID-19 pneumonia Acute metabolic encephalopathy, secondary to hypoglycemia/hypotension/COVID-19 Hypoglycemia secondary to not eating Hypotension ESRD on hemodialysis Anemia in chronic kidney disease Hypoglycemia Hypotension Acute Encephalopathy hypoglycemia secondary to not eating remains confused, not eating hospital food, but does seem to eat home food brought by family family state he is a picky eater, can be stubborn unclear etiology of encephalopathy suspect COVID-19 encephalopathy, this may be a prolonged symptom Neuro consulted, CT/MRI negative. EEG completed (read pending) - feels this is likely due to COVID-19 patient has ESRD and chronic ischemic changes which put him at high risk of encephalopathy from COVID19 start d51/2NS @50, reluctant to give more fluid. patient may need PPN if continues to not eat will need to discuss with family if they would want a PEG tube placement COVID-19 pneumonia Patient was fully vaccinated with Moderna in July/August of this year patient required O2 for a few days for COVID pneumonia, but has now been weaned to room air since 03/28 Patient is very weak / debilitated, has not gotten out of bed since the first 1- 2 days of admission inflammatory markers improved decrease steroids to once a day (03/29) ESRD on HD anemia in chronic disease vit d deficiency Low 25-OH vitamin-D. Replacement per nephrology. monitor H/H - stable Patient was accepted early on for inpatient rehab at [facility]. However he was too unstable to transfer due to ongoing hypotension and hypoglycemia Patient is now not wanting to participate, remains confused. Currently waiting for him to have improvement Patient may be more appropriate for SNF if no significant improvement Will need physical therapy and assistance as he recovers from COVID-19, and hopefully further improvement of his encephalopathy Dispo: rehab vs SNF pending improvement. may need PEG tube Time Spent Managing Pts Care (In Minutes): 35
[2021-03-29 07:14] LABS: Absolute Lymphocytes (CBC) 0.3 K/uL (0.7-4.9); Basophils % 0.2 % (0-1.3); Hematocrit 39.4 % (39.6-49.0); Lymphocytes % 4.4 % (15.3-44.8); MPV 7.9 fL (7.6-11.3); RBC Red Blood Cell Count 4.91 M/uL (4.33-5.43)
[2021-03-29 07:30] LABS: Albumin 3.3 g/dL (3.4-5.0); Bilirubin Total 2.4 mg/dL (0.2-1.0); C-Reactive Protein 35.1 mg/L (<3.00); Ferritin 1497.9 ng/mL (26-388); Magnesium 2.5 mg/dL (1.8-2.4); Potassium 4.1 mmol/L (3.5-5.1); Protein, Total 6.7 g/dL (6.4-8.2)
[2021-03-29] MEDS: NEPRO SHAKE 237 ML CAN PO SCH ×4 (09:00→21:00)
[2021-03-29] MEDS: DRISDOL (VITAMIN D=ERGOCALCIFEROL) 50000 UNIT CAP PO SCH (09:00)
[2021-03-29] MEDS: MAGNESIUM OXIDE 400 MG TAB PO SCH (09:00)
[2021-03-29] MEDS: DOCUSATE NA 100 MG CAP PO SCH ×3 (11:05→21:50)
[2021-03-29] MEDS: D5 0.45 NS 1,000 ML IV SCH (11:05)
[2021-03-29] MEDS: APIXABAN 2.5 MG TABLET PO SCH ×3 (11:05→21:49)
[2021-03-29] MEDS: dexAMETHasone 4 MG TAB PO SCH (11:06)
[2021-03-29] MEDS: CALCITROL 0.25 MCG CAP PO SCH (11:06)
[2021-03-29] MEDS: MIDODRINE HCL 5 MG TABLET PO SCH ×4 (11:06→21:50)
[2021-03-30] MEDS: D5 0.45 NS 1,000 ML IV SCH (04:42)
--- NOTE | 2021-03-30 07:38 | P.PN ---
Subjective Date of Service: 03/30/21 Chief Complaint: Altered mental status Subjective: No new changes (awake, oriented to self, does not know where he is. remains confused. reports no pain, no SOB, no chest pain, no abdominal pain, no pain in legs. Unable to give me reason for why he refuses medications / not eating.) Review of Systems 10-point ROS is otherwise unremarkable Physical Examination - Vital Signs Temperature: 98.1 F Blood Pressure: 116/53 Pulse: 93 Respirations: 17 Pulse Ox (%): 93 Assessment & Plan Physician Review Additional Text: Physical Exam Gen: Alert, oriented to self and year, confused. sleepy HEENT: Normal conjunctiva, sclera anicteric Respiratory: Non-labored on room air Cardiovascular: irregular rhythm, rate: 80s Gastrointestinal: Soft, nontender, nondistended Neurological: moves all extremities equally, EOMI, confusion, follows basic commands. Problem list Acute hypoxemic respiratory failure secondary to COVID-19 pneumonia Acute metabolic encephalopathy, secondary to hypoglycemia/hypotension/COVID-19 Hypoglycemia secondary to not eating Hypotension ESRD on hemodialysis Anemia in chronic kidney disease Hypoglycemia Hypotension Acute Encephalopathy hypoglycemia secondary to not eating remains confused, not eating hospital food, but does seem to eat home food brought by family family state he is a picky eater, can be stubborn unclear etiology of encephalopathy suspect COVID-19 encephalopathy, this may be a prolonged symptom Neuro consulted, CT/MRI negative. EEG completed (read pending) - feels this is likely due to COVID-19 patient has ESRD and chronic ischemic changes which put him at high risk of encephalopathy from COVID19 start d51/2NS @50, reluctant to give more fluid. patient may need PPN if continues to not eat will need to discuss with family if they would want a PEG tube placement, unable to get a hold of them today COVID-19 pneumonia Patient was fully vaccinated with Moderna in July/August of this year patient required O2 for a few days for COVID pneumonia, but has now been weaned to room air since 03/28 Patient is very weak / debilitated, has not gotten out of bed since the first 1- 2 days of admission inflammatory markers improved decrease steroids to once a day (03/29) ESRD on HD anemia in chronic disease vit d deficiency Low 25-OH vitamin-D. Replacement per nephrology. monitor H/H - stable hemodialysis per nephrology Patient was accepted early on for inpatient rehab at [facility]. However he was too unstable to transfer due to ongoing hypotension and hypoglycemia Patient is now not wanting to participate, remains confused. Currently waiting for him to have improvement Patient may be more appropriate for SNF if no significant improvement Will need physical therapy and assistance as he recovers from COVID-19, and hopefully further improvement of his encephalopathy Dispo: rehab vs SNF pending improvement. may need PEG tube, need to discuss with family Time Spent Managing Pts Care (In Minutes): 35
[2021-03-30] MEDS: MAGNESIUM OXIDE 400 MG TAB PO SCH ×2 (09:00)
[2021-03-30] MEDS: DOCUSATE NA 100 MG CAP PO SCH ×3 (09:00→20:08)
[2021-03-30] MEDS: APIXABAN 2.5 MG TABLET PO SCH ×3 (09:00→20:08)
[2021-03-30] MEDS: MIDODRINE HCL 5 MG TABLET PO SCH ×4 (09:00→20:08)
[2021-03-30] MEDS: dexAMETHasone 4 MG TAB PO SCH ×2 (09:00→09:34)
[2021-03-30] MEDS: NEPRO SHAKE 237 ML CAN PO SCH ×3 (09:00→20:11)
[2021-03-30] MEDS: CALCITROL 0.25 MCG CAP PO SCH ×2 (09:00→09:34)
[2021-03-30 09:17] LABS: Absolute Lymphocytes (CBC) 0.5 K/uL (0.7-4.9); Basophils % 0.6 % (0-1.3); Hematocrit 39.8 % (39.6-49.0); Lymphocytes % 6.2 % (15.3-44.8); MPV 7.8 fL (7.6-11.3); RBC Red Blood Cell Count 4.97 M/uL (4.33-5.43)
[2021-03-30 10:24] LABS: Bilirubin Total 2.8 mg/dL (0.2-1.0); Ferritin 1685.4 ng/mL (26-388); Magnesium 2.6 mg/dL (1.8-2.4); Phosphorus 2.1 mg/dL (2.5-4.9); Potassium 4.1 mmol/L (3.5-5.1); Protein, Total 6.5 g/dL (6.4-8.2)
--- NOTE | 2021-03-30 15:21 | EEG ---
CHART: [id number] TEST ID#: [id number] DATE OF STUDY: 03/27/2021 THE EEG WAS RECORDED PORTABLE IN THE PATIENT'S ROOM ON A 17 CHANNEL MACHINE. ELECTRODES WERE APPLIED IN THE USUAL MANNER USING THE INTERNATIONAL 10-20 SYSTEM. THE WAKING BACKGROUND RHYTHM IN THIS RECORD CONSISTS OF POORLY DEVELOPED AND POORLY ORGANIZED WAVES OF 7-8 HZ., IN A WIDE DISTRIBUTION WHICH ATTENUATE NORMALLY WITH EYE OPENING. MODERATE TO HIGH VOLTAGE 2 TO 4 HZ DIPHASIC AND TRIPHASIC SHARP WAVES ARE FREQUENTLY EXPRESSED IN THE FRONTAL AND CENTRAL REGIONS. THERE ARE NO FOCAL OR LATERALIZING FEATURES. NO EPILEPTIFORM ACTIVITY APPEARS. SLEEP DID NOT OCCUR. HYPERVENTILATION WAS NOT PERFORMED. PHOTIC STIMULATION PRODUCED NO DRIVING BILATERALLY. IMPRESSION: THIS IS A MODERATELY ABNORMAL EEG DUE TO THE PRESENCE OF NEAR CONTINUOUS FROTNAL AND CENTRAL DIAPHASIC AND TRIPHASIC SHARP WAVES AND A POORLY EXPRESSED POSTERIOR DOMINANT RHYTHM. THESE FINDINGS ARE CONSISTENT WITH A DIFFSE DISTURABCE IN CEREBAL FUNCTION MOST LIKELY ON A METABLIC BASIS SUCH HEPATORENAL DYSFUNCTION.
[2021-03-30] MEDS: EPOETIN 4,000 UNIT/ML VIAL SQ SCH (16:39)
--- NOTE | 2021-03-30 20:33 | P.PN ---
Date of Service: 03/30/21 Vital Signs Temp Pulse Resp BP Pulse Ox 98.1 F 93 H 17 116/53 L 93 03/30/21 16:50 03/30/21 16:50 03/30/21 16:50 03/30/21 16:50 03/30/21 16:50 Medications Acetaminophen (Acetaminophen 500 Mg Tab) 500 mg PO Q6H PRN PRN Reason: Pain scale 2-4 (Mild) Last Admin: 03/22/21 03:04 Dose: 500 mg Documented by: Apixaban (Apixaban 2.5 Mg Tablet) 2.5 mg PO BID [facility] Last Admin: 03/30/21 20:08 Dose: 2.5 mg Documented by: Calcitriol (Calcitrol 0.25 Mcg Cap) 0.5 mcg PO DAILY [facility] Last Admin: 03/30/21 09:00 Dose: Not Given Documented by: Dexamethasone (Dexamethasone 4 Mg Tab) 6 mg PO DAILY [facility] Last Admin: 03/30/21 09:00 Dose: Not Given Documented by: Docusate Sodium (Docusate Na 100 Mg Cap) 100 mg PO BID [facility] Last Admin: 03/30/21 20:08 Dose: 100 mg Documented by: Enteral Nutritional Formula (Nepro Shake 237 Ml Can) 237 ml PO TID [facility] Last Admin: 03/30/21 20:11 Dose: 237 ml Documented by: Epoetin Wes (Epoetin 4,000 Unit/Ml Vial) 4,000 unit SQ M,W,F [facility] Last Admin: 03/30/21 16:39 Dose: Not Given Documented by: Ergocalciferol (Drisdol (Vitamin D=Ergocalciferol) 07719 Unit Cap) 50,000 unit PO Q7D@0900 [facility] Last Admin: 03/29/21 09:00 Dose: Not Given Documented by: Heparin Sodium (Porcine) (Heparin 1,000 Unit/Ml Vial) 3,000 unit IV EVERY HD PRN PRN Reason: dialysis Last Admin: 03/28/21 10:55 Dose: 3,000 unit Documented by: Albumin Human (Albumin 25%) 50 mls @ 100 mls/hr IV EVERY HD [facility] Last Admin: 03/28/21 11:30 Dose: 50 mls Documented by: Dextrose/Sodium Chloride (Dextrose 5% O.45% Saline) 1,000 mls @ 50 mls/hr IV .Q20H [facility] Last Admin: 03/30/21 04:42 Dose: 1,000 mls Documented by: Magnesium Oxide (Magnesium Oxide 400 Mg Tab) 400 mg PO DAILY [facility] Last Admin: 03/30/21 09:00 Dose: Not Given Documented by: Midodrine (Midodrine Hcl 5 Mg Tablet) 5 mg PO TID [facility] Last Admin: 03/30/21 20:08 Dose: 5 mg Documented by: Ondansetron HCl (Ondansetron 4 Mg/2 Ml Vial) 4 mg IV Q4H PRN PRN Reason: NAUSEA / VOMITING Last Admin: 03/23/21 16:15 Dose: 4 mg Documented by: Sodium Chloride (Flush Normal Saline 10 Ml) 10 ml IV BID [facility] Last Admin: 03/30/21 20:11 Dose: 10 ml Documented by: Assessment/ Plan: Nephrology Progress Note Limited IH/ ROS due to AMS No acute events overnight Vitals, medications blood work and imaging reviewed in the chart NAD. Obese. NCAT. MMM. Neck supple. Diminished. RRR. ND Abd. No C/C/E. Awake. Normal speech. A/P Continue current POC and Medications other than the changes listed. AM labs as ordered. Recommend daily weight. ESRD -HD TIW Chronic hypotension -Continue Midodrine Diastolic CHF, chronic -Low sodium diet -HD with UF Moderate malnutrition -Encourage nutrition Anemia in CKD -Continue Retacrit CKD MBD -Continue Vitamin D Toxic metabolic encephalopathy of unclear etiology -COVID vs steroid encephalopathy COVID-19 PNA Acute hypoxic respiratory failure -Continue Dexamethasone -Continue Oxygen
[2021-03-31] MEDS: D5 0.45 NS 1,000 ML IV SCH ×2 (00:43→18:23)
[2021-03-31 06:08] LABS: Albumin 2.7 g/dL (3.4-5.0); Bilirubin Total 2.5 mg/dL (0.2-1.0); Ferritin 1753.2 ng/mL (26-388); Phosphorus 2.4 mg/dL (2.5-4.9); Protein, Total 6.2 g/dL (6.4-8.2)
[2021-03-31 06:09] LABS: Potassium 4.6 mmol/L (3.5-5.1)
[2021-03-31 06:10] LABS: Magnesium 2.4 mg/dL (1.8-2.4)
[2021-03-31] MEDS: MAGNESIUM OXIDE 400 MG TAB PO SCH (09:00)
[2021-03-31] MEDS: NEPRO SHAKE 237 ML CAN PO SCH ×3 (09:00→21:00)
[2021-03-31] MEDS: dexAMETHasone 4 MG TAB PO SCH (09:17)
[2021-03-31] MEDS: APIXABAN 2.5 MG TABLET PO SCH ×3 (09:17→21:21)
[2021-03-31] MEDS: DOCUSATE NA 100 MG CAP PO SCH ×3 (09:17→21:21)
[2021-03-31] MEDS: CALCITROL 0.25 MCG CAP PO SCH (09:17)
[2021-03-31] MEDS: MIDODRINE HCL 5 MG TABLET PO SCH ×4 (09:20→21:21)
[2021-03-31 10:21] LABS: Absolute Lymphocytes (CBC) 0.5 K/uL (0.7-4.9); Basophils % 0.4 % (0-1.3); Hematocrit 38.2 % (39.6-49.0); Lymphocytes % 5.9 % (15.3-44.8); MPV 8.2 fL (7.6-11.3); RBC Red Blood Cell Count 4.89 M/uL (4.33-5.43)
[2021-03-31 11:46] LABS: Blood Morphology Comment NOT SEEN (NOT SEEN); Platelet Estimate ADEQ
--- NOTE | 2021-03-31 17:04 | P.PN ---
Subjective Date of Service: 03/31/21 Chief Complaint: Altered mental status Patient is still not eating. He remain confused and maintained on D5 infusion. Was put on 2 L oxygen by nasal cannula this morning. Physical Examination - Vital Signs Temperature: 96.8 F Blood Pressure: 121/76 Pulse: 92 Respirations: 20 Pulse Ox (%): 92 - Physical Exam General: In no apparent distress, Delirious Neck: JVD not distended Respiratory: Other (Nonlabored breathing) Cardiovascular: Regular rate/rhythm, Normal S1 S2 Gastrointestinal: Soft and benign, Non-distended Musculoskeletal: No swelling Integumentary: Other (Bilateral lower extremity xerosis) Neurological: Other (Moves all extremities spontaneously.) Assessment And Plan - Current Problems (Diagnosis) (1) COVID-19 virus infection Current Visit: Yes Status: Acute (2) Altered mental status Current Visit: Yes Status: Acute Qualifiers: Altered mental status type: unspecified Qualified Code(s): R41.82 - Altered mental status, unspecified (3) Hypoglycemia Current Visit: Yes Status: Acute (4) ESRD on hemodialysis Onset Date: 12/22/15 Current Visit: Yes Status: Chronic (5) Anemia in CKD (chronic kidney disease) Onset Date: 12/22/15 Current Visit: No Status: Acute Physician Review Additional Text: Physical Exam Gen: Alert, oriented to self and year, confused. sleepy HEENT: Normal conjunctiva, sclera anicteric Respiratory: Non-labored on room air Cardiovascular: irregular rhythm, rate: 80s Gastrointestinal: Soft, nontender, nondistended Neurological: moves all extremities equally, EOMI, confusion, follows basic commands. Problem list Acute hypoxemic respiratory failure secondary to COVID-19 pneumonia Acute metabolic encephalopathy, secondary to hypoglycemia/hypotension/COVID-19 Hypoglycemia secondary to not eating Hypotension ESRD on hemodialysis Anemia in chronic kidney disease Hypoglycemia Hypotension Acute Encephalopathy hypoglycemia secondary to not eating remains confused, not eating hospital food, but does seem to eat home food brought by family unclear etiology of encephalopathy Encephalopathy likely secondary to COVID. Neuro consulted, CT/MRI negative. EEG completed. patient has ESRD and chronic ischemic changes which put him at high risk of encephalopathy from COVID19 Continue d5 1/2NS @50, family to assist with feeding. COVID-19 pneumonia Patient was fully vaccinated with Moderna in July/August of this year patient required O2 for a few days for COVID pneumonia, but has now been weaned to room air since 03/28 Patient is very weak / debilitated, has not gotten out of bed since the first 1- 2 days of admission inflammatory markers improved. Back on oxygen today. Continue steroid. ESRD on HD anemia in chronic disease vit d deficiency Low 25-OH vitamin-D. Replacement per nephrology. monitor H/H - stable hemodialysis per nephrology Patient was accepted early on for inpatient rehab at [facility]. However he was too unstable to transfer due to ongoing hypotension and hypoglycemia Patient may be more appropriate for SNF if no significant improvement Dispo: rehab vs SNF pending improvement.
[2021-04-01 04:23] LABS: Absolute Lymphocytes (CBC) 0.4 K/uL (0.7-4.9); Basophils % 0.7 % (0-1.3); Hematocrit 38.6 % (39.6-49.0); Lymphocytes % 6.4 % (15.3-44.8); MPV 8.6 fL (7.6-11.3); RBC Red Blood Cell Count 4.85 M/uL (4.33-5.43)
[2021-04-01 04:36] LABS: Potassium 4.3 mmol/L (3.5-5.1)
[2021-04-01 04:53] LABS: Blood Morphology Comment NOTED (NOT SEEN); Hypochromasia 2+; Platelet Estimate ADEQ; White Blood Cell Scan OK (OK)
[2021-04-01] MEDS: MAGNESIUM OXIDE 400 MG TAB PO SCH (09:00)
[2021-04-01] MEDS: NEPRO SHAKE 237 ML CAN PO SCH ×3 (09:00→21:00)
[2021-04-01] MEDS: APIXABAN 2.5 MG TABLET PO SCH ×2 (09:13→21:12)
[2021-04-01] MEDS: DOCUSATE NA 100 MG CAP PO SCH ×2 (09:13→21:12)
[2021-04-01] MEDS: CALCITROL 0.25 MCG CAP PO SCH (09:15)
[2021-04-01] MEDS: MIDODRINE HCL 5 MG TABLET PO SCH ×3 (09:15→21:13)
[2021-04-01] MEDS: dexAMETHasone 4 MG TAB PO SCH (09:15)
[2021-04-01] MEDS: D5 0.45 NS 1,000 ML IV SCH (16:00)
--- NOTE | 2021-04-01 16:09 | P.PN ---
Subjective Date of Service: 04/01/21 Chief Complaint: Altered mental status Patient is still not eating but is able to feed him with home food. He remain confused and maintained on D5 infusion. He is not needing oxygen today. Physical Examination - Vital Signs Temperature: 97.4 F Blood Pressure: 101/70 Pulse: 89 Respirations: 24 Pulse Ox (%): 95 - Physical Exam General: In no apparent distress, Confused Assessment And Plan - Current Problems (Diagnosis) (1) COVID-19 virus infection Current Visit: Yes Status: Acute (2) Altered mental status Current Visit: Yes Status: Acute Qualifiers: Altered mental status type: unspecified Qualified Code(s): R41.82 - Altered mental status, unspecified (3) Hypoglycemia Current Visit: Yes Status: Acute (4) ESRD on hemodialysis Onset Date: 12/22/15 Current Visit: Yes Status: Chronic (5) Anemia in CKD (chronic kidney disease) Onset Date: 12/22/15 Current Visit: No Status: Acute Physician Review Additional Text: Physical Exam Gen: Alert, oriented to self and year, confused. Awake HEENT: Normal conjunctiva, sclera anicteric Respiratory: Non-labored breathing on room air Cardiovascular: irregular rhythm. Gastrointestinal: Soft, nontender, nondistended Neurological: moves all extremities equally, EOMI, confused, follows basic commands. Problem list Acute hypoxemic respiratory failure secondary to COVID-19 pneumonia Acute metabolic encephalopathy, secondary to hypoglycemia/hypotension/COVID-19 Hypoglycemia secondary to not eating Hypotension ESRD on hemodialysis Anemia in chronic kidney disease Hypoglycemia Hypotension Acute Encephalopathy hypoglycemia secondary to not eating remains confused, not eating hospital food, but does seem to eat home food bro ught by family unclear etiology of encephalopathy Encephalopathy likely secondary to COVID. Neuro consulted, CT/MRI negative. EEG completed. No spikes to suggest seizure activity. Findings suggestive of encephalopathy patient has ESRD and chronic ischemic changes which put him at high risk of encephalopathy from COVID19 Continue d5 1/2NS @50, family to assist with feeding. Blood pressure improved. Patient is no longer hypotensive. COVID-19 pneumonia Patient was fully vaccinated with Moderna in July/August of this year patient required O2 for a few days for COVID pneumonia. He is weaned off oxygen. Patient is very weak / debilitated. ESRD on HD anemia in chronic disease vit d deficiency Low 25-OH vitamin-D. Replacement per nephrology. monitor H/H - stable hemodialysis per nephrology Patient was accepted early on for inpatient rehab at [facility]. However he was too unstable to transfer due to ongoing hypotension and hypoglycemia May be able to disposition to [facility] if he can be fed with assistance. Monitor for 1 more day, observe his oral intake by feeding with assistance before discharge to [facility]hab.
[2021-04-01] MEDS: EPOETIN 4,000 UNIT/ML VIAL SQ SCH (17:00)
--- NOTE | 2021-04-01 21:32 | P.PN ---
Date of Service: 03/31/21 Vital Signs Temp Pulse Resp BP Pulse Ox 97.4 F 89 24 H 101/70 95 04/01/21 16:17 04/01/21 16:17 04/01/21 16:17 04/01/21 16:17 04/01/21 16:17 Medications Acetaminophen (Acetaminophen 500 Mg Tab) 500 mg PO Q6H PRN PRN Reason: Pain scale 2-4 (Mild) Last Admin: 03/22/21 03:04 Dose: 500 mg Documented by: Apixaban (Apixaban 2.5 Mg Tablet) 2.5 mg PO BID [facility] Last Admin: 04/01/21 21:12 Dose: 2.5 mg Documented by: Calcitriol (Calcitrol 0.25 Mcg Cap) 0.5 mcg PO DAILY [facility] Last Admin: 04/01/21 09:15 Dose: Not Given Documented by: Dexamethasone (Dexamethasone 4 Mg Tab) 6 mg PO DAILY [facility] Last Admin: 04/01/21 09:15 Dose: Not Given Documented by: Docusate Sodium (Docusate Na 100 Mg Cap) 100 mg PO BID [facility] Last Admin: 04/01/21 21:12 Dose: 100 mg Documented by: Enteral Nutritional Formula (Nepro Shake 237 Ml Can) 237 ml PO TID [facility] Last Admin: 04/01/21 14:00 Dose: Not Given Documented by: Epoetin Wes (Epoetin 4,000 Unit/Ml Vial) 4,000 unit SQ M,W,F [facility] Last Admin: 04/01/21 17:00 Dose: 4,000 unit Documented by: Ergocalciferol (Drisdol (Vitamin D=Ergocalciferol) 72662 Unit Cap) 50,000 unit PO Q7D@0900 [facility] Last Admin: 03/29/21 09:00 Dose: Not Given Documented by: Heparin Sodium (Porcine) (Heparin 1,000 Unit/Ml Vial) 3,000 unit IV EVERY HD PRN PRN Reason: dialysis Last Admin: 03/28/21 10:55 Dose: 3,000 unit Documented by: Albumin Human (Albumin 25%) 50 mls @ 100 mls/hr IV EVERY HD [facility] Last Admin: 03/28/21 11:30 Dose: 50 mls Documented by: Dextrose/Sodium Chloride (Dextrose 5% O.45% Saline) 1,000 mls @ 50 mls/hr IV .Q20H [facility] Last Admin: 04/01/21 16:00 Dose: 1,000 mls Documented by: Magnesium Oxide (Magnesium Oxide 400 Mg Tab) 400 mg PO DAILY [facility] Last Admin: 04/01/21 09:00 Dose: Not Given Documented by: Midodrine (Midodrine Hcl 5 Mg Tablet) 5 mg PO TID [facility] Last Admin: 04/01/21 21:13 Dose: 5 mg Documented by: Ondansetron HCl (Ondansetron 4 Mg/2 Ml Vial) 4 mg IV Q4H PRN PRN Reason: NAUSEA / VOMITING Last Admin: 03/23/21 16:15 Dose: 4 mg Documented by: Sodium Chloride (Flush Normal Saline 10 Ml) 10 ml IV BID [facility] Last Admin: 04/01/21 21:00 Dose: Not Given Documented by: Assessment/ Plan: Nephrology Progress Note Limited IH/ ROS due to AMS No acute events overnight Vitals, medications blood work and imaging reviewed in the chart NAD. Obese. NCAT. MMM. Neck supple. Diminished. RRR. ND Abd. No C/C/E. Awake. Normal speech. A/P Continue current POC and Medications other than the changes listed. AM labs as ordered. Recommend daily weight. ESRD -HD TIW -Seen and examined on HD Chronic hypotension -Continue Midodrine Diastolic CHF, chronic -Low sodium diet -HD with UF Moderate malnutrition -Encourage nutrition Anemia in CKD -Continue Retacrit CKD MBD -Continue Vitamin D Toxic metabolic encephalopathy of unclear etiology -COVID vs steroid encephalopathy COVID-19 PNA Acute hypoxic respiratory failure -Continue Dexamethasone -Continue Oxygen
--- NOTE | 2021-04-01 21:41 | P.PN ---
Date of Service: 04/01/21 Vital Signs Temp Pulse Resp BP Pulse Ox 97.4 F 89 24 H 101/70 95 04/01/21 16:17 04/01/21 16:17 04/01/21 16:17 04/01/21 16:17 04/01/21 16:17 Medications Acetaminophen (Acetaminophen 500 Mg Tab) 500 mg PO Q6H PRN PRN Reason: Pain scale 2-4 (Mild) Last Admin: 03/22/21 03:04 Dose: 500 mg Documented by: Apixaban (Apixaban 2.5 Mg Tablet) 2.5 mg PO BID [facility] Last Admin: 04/01/21 21:12 Dose: 2.5 mg Documented by: Calcitriol (Calcitrol 0.25 Mcg Cap) 0.5 mcg PO DAILY [facility] Last Admin: 04/01/21 09:15 Dose: Not Given Documented by: Dexamethasone (Dexamethasone 4 Mg Tab) 6 mg PO DAILY [facility] Last Admin: 04/01/21 09:15 Dose: Not Given Documented by: Docusate Sodium (Docusate Na 100 Mg Cap) 100 mg PO BID [facility] Last Admin: 04/01/21 21:12 Dose: 100 mg Documented by: Enteral Nutritional Formula (Nepro Shake 237 Ml Can) 237 ml PO TID [facility] Last Admin: 04/01/21 14:00 Dose: Not Given Documented by: Epoetin Wes (Epoetin 4,000 Unit/Ml Vial) 4,000 unit SQ M,W,F [facility] Last Admin: 04/01/21 17:00 Dose: 4,000 unit Documented by: Ergocalciferol (Drisdol (Vitamin D=Ergocalciferol) 84387 Unit Cap) 50,000 unit PO Q7D@0900 [facility] Last Admin: 03/29/21 09:00 Dose: Not Given Documented by: Heparin Sodium (Porcine) (Heparin 1,000 Unit/Ml Vial) 3,000 unit IV EVERY HD PRN PRN Reason: dialysis Last Admin: 03/28/21 10:55 Dose: 3,000 unit Documented by: Albumin Human (Albumin 25%) 50 mls @ 100 mls/hr IV EVERY HD [facility] Last Admin: 03/28/21 11:30 Dose: 50 mls Documented by: Dextrose/Sodium Chloride (Dextrose 5% O.45% Saline) 1,000 mls @ 50 mls/hr IV .Q20H [facility] Last Admin: 04/01/21 16:00 Dose: 1,000 mls Documented by: Magnesium Oxide (Magnesium Oxide 400 Mg Tab) 400 mg PO DAILY [facility] Last Admin: 04/01/21 09:00 Dose: Not Given Documented by: Midodrine (Midodrine Hcl 5 Mg Tablet) 5 mg PO TID [facility] Last Admin: 04/01/21 21:13 Dose: 5 mg Documented by: Ondansetron HCl (Ondansetron 4 Mg/2 Ml Vial) 4 mg IV Q4H PRN PRN Reason: NAUSEA / VOMITING Last Admin: 03/23/21 16:15 Dose: 4 mg Documented by: Sodium Chloride (Flush Normal Saline 10 Ml) 10 ml IV BID [facility] Last Admin: 04/01/21 21:00 Dose: Not Given Documented by: Assessment/ Plan: Nephrology Progress Note Limited IH/ ROS due to AMS More awake today than previous days No acute events overnight Vitals, medications blood work and imaging reviewed in the chart NAD. Obese. NCAT. MMM. Neck supple. Diminished. RRR. ND Abd. No C/C/E. Awake. Soft speech. A/P Continue current POC and Medications other than the changes listed. AM labs as ordered. Recommend daily weight. ESRD -HD TIW Chronic hypotension -Continue Midodrine Diastolic CHF, chronic -Low sodium diet -HD with UF Moderate malnutrition -Encourage nutrition Anemia in CKD -Continue Retacrit CKD MBD -Continue Vitamin D Toxic metabolic encephalopathy of unclear etiology -COVID vs steroid encephalopathy COVID-19 PNA Acute hypoxic respiratory failure -Continue Dexamethasone -Continue Oxygen
[2021-04-02 06:35] LABS: Absolute Lymphocytes (CBC) 0.4 K/uL (0.7-4.9); Basophils % 0.8 % (0-1.3); Hematocrit 40.7 % (39.6-49.0); Lymphocytes % 6.5 % (15.3-44.8); MPV 8.3 fL (7.6-11.3); RBC Red Blood Cell Count 5.19 M/uL (4.33-5.43)
[2021-04-02 06:55] LABS: Potassium 3.6 mmol/L (3.5-5.1)
[2021-04-02] MEDS: NEPRO SHAKE 237 ML CAN PO SCH ×3 (09:00→21:00)
[2021-04-02] MEDS: DOCUSATE NA 100 MG CAP PO SCH ×3 (09:00→21:16)
[2021-04-02] MEDS: dexAMETHasone 4 MG TAB PO SCH (09:00)
[2021-04-02] MEDS: CALCITROL 0.25 MCG CAP PO SCH (09:00)
[2021-04-02] MEDS: APIXABAN 2.5 MG TABLET PO SCH ×3 (09:00→21:16)
[2021-04-02] MEDS: MIDODRINE HCL 5 MG TABLET PO SCH ×4 (09:00→21:16)
[2021-04-02] MEDS: MAGNESIUM OXIDE 400 MG TAB PO SCH (09:00)
--- NOTE | 2021-04-02 11:12 | P.PN ---
Date of Service: 04/02/21 Vital Signs Temp Pulse Resp BP Pulse Ox 96.5 F L 105 H 20 129/70 96 04/02/21 08:00 04/02/21 08:00 04/02/21 08:00 04/02/21 08:00 04/02/21 08:00 Medications Acetaminophen (Acetaminophen 500 Mg Tab) 500 mg PO Q6H PRN PRN Reason: Pain scale 2-4 (Mild) Last Admin: 03/22/21 03:04 Dose: 500 mg Documented by: Apixaban (Apixaban 2.5 Mg Tablet) 2.5 mg PO BID [facility] Last Admin: 04/02/21 09:00 Dose: Not Given Documented by: Calcitriol (Calcitrol 0.25 Mcg Cap) 0.5 mcg PO DAILY [facility] Last Admin: 04/02/21 09:00 Dose: Not Given Documented by: Dexamethasone (Dexamethasone 4 Mg Tab) 6 mg PO DAILY [facility] Last Admin: 04/02/21 09:00 Dose: Not Given Documented by: Docusate Sodium (Docusate Na 100 Mg Cap) 100 mg PO BID [facility] Last Admin: 04/02/21 09:00 Dose: Not Given Documented by: Enteral Nutritional Formula (Nepro Shake 237 Ml Can) 237 ml PO TID [facility] Last Admin: 04/02/21 09:00 Dose: Not Given Documented by: Epoetin Wes (Epoetin 4,000 Unit/Ml Vial) 4,000 unit SQ M,W,F [facility] Last Admin: 04/01/21 17:00 Dose: 4,000 unit Documented by: Ergocalciferol (Drisdol (Vitamin D=Ergocalciferol) 20362 Unit Cap) 50,000 unit PO Q7D@0900 [facility] Last Admin: 03/29/21 09:00 Dose: Not Given Documented by: Heparin Sodium (Porcine) (Heparin 1,000 Unit/Ml Vial) 3,000 unit IV EVERY HD PRN PRN Reason: dialysis Last Admin: 03/28/21 10:55 Dose: 3,000 unit Documented by: Albumin Human (Albumin 25%) 50 mls @ 100 mls/hr IV EVERY HD [facility] Last Admin: 03/28/21 11:30 Dose: 50 mls Documented by: Magnesium Oxide (Magnesium Oxide 400 Mg Tab) 400 mg PO DAILY [facility] Last Admin: 04/02/21 09:00 Dose: Not Given Documented by: Midodrine (Midodrine Hcl 5 Mg Tablet) 5 mg PO TID [facility] Last Admin: 04/02/21 09:00 Dose: Not Given Documented by: Ondansetron HCl (Ondansetron 4 Mg/2 Ml Vial) 4 mg IV Q4H PRN PRN Reason: NAUSEA / VOMITING Last Admin: 03/23/21 16:15 Dose: 4 mg Documented by: Sodium Chloride (Flush Normal Saline 10 Ml) 10 ml IV BID [facility] Last Admin: 04/02/21 09:00 Dose: Not Given Documented by: Assessment/ Plan: Nephrology Progress Note Limited IH/ ROS due to AMS AMS waxing and waning No acute events overnight Vitals, medications blood work and imaging reviewed in the chart NAD. Obese. NCAT. MMM. Neck supple. Diminished. RRR. ND Abd. No C/C/E. Awake. Soft speech. A/P Continue current POC and Medications other than the changes listed. AM labs as ordered. Recommend daily weight. ESRD -HD TIW Chronic hypotension -Continue Midodrine Diastolic CHF, chronic -Low sodium diet -HD with UF Moderate malnutrition -Encourage nutrition Anemia in CKD -Continue Retacrit CKD MBD -Continue Vitamin D Toxic metabolic encephalopathy of unclear etiology -COVID vs steroid encephalopathy COVID-19 PNA Acute hypoxic respiratory failure -Wean Dexamethasone 4mg daily -Continue Oxygen Case reviewed with Dr. Lawrence
[2021-04-02] MEDS ORDERED: ALBUMIN HUMAN 25% 100 ML IV ONE (13:17)
--- NOTE | 2021-04-02 17:07 | P.PN ---
Subjective Date of Service: 04/02/21 Chief Complaint: Altered mental status It appears patient's confusion is better He is eating food when fed by family He is not needing oxygen today. Blood glucose has been stable since D5W was discontinued. Physical Examination - Vital Signs Temperature: 96.8 F Blood Pressure: 146/66 Pulse: 115 Respirations: 20 Pulse Ox (%): 96 Assessment And Plan - Current Problems (Diagnosis) (1) COVID-19 virus infection Current Visit: Yes Status: Acute (2) Altered mental status Current Visit: Yes Status: Acute Qualifiers: Altered mental status type: unspecified Qualified Code(s): R41.82 - Altered mental status, unspecified (3) Hypoglycemia Current Visit: Yes Status: Acute (4) ESRD on hemodialysis Onset Date: 12/22/15 Current Visit: Yes Status: Chronic (5) Anemia in CKD (chronic kidney disease) Onset Date: 12/22/15 Current Visit: No Status: Acute Physician Review Additional Text: Physical Exam Gen: Alert, oriented to self and year, confused. Awake HEENT: Normal conjunctiva, sclera anicteric Respiratory: Non-labored breathing on room air Cardiovascular: irregular rhythm. Gastrointestinal: Soft, nontender, nondistended Neurological: moves all extremities equally, EOMI, follows basic commands. Was communicating meaningfully this morning, slow to respond but it appears the confusion is better Problem list Acute hypoxemic respiratory failure secondary to COVID-19 pneumonia Acute metabolic encephalopathy, secondary to hypoglycemia/hypotension/COVID-19 Hypoglycemia secondary to not eating Hypotension ESRD on hemodialysis Anemia in chronic kidney disease Hypoglycemia Hypotension Acute Encephalopathy He has had hypoglycemia secondary to not eating. No hypoglycemia today without D5 water Does eat home food brought by family Encephalopathy likely secondary to COVID. Encephalopathy this improving. Neuro consulted, CT/MRI negative. EEG completed. No spikes to suggest seizure activity. Findings suggestive of encephalopathy patient has ESRD and chronic ischemic changes which put him at high risk of encephalopathy from COVID19 Feeding with assistance. Blood pressure improved. Patient is no longer hypotensive. COVID-19 pneumonia Patient was fully vaccinated with Moderna in July/August of this year patient required O2 for a few days for COVID pneumonia. He is weaned off oxygen. Patient is very weak / debilitated. ESRD on HD anemia in chronic disease vit d deficiency Low 25-OH vitamin-D. Replacement per nephrology. monitor H/H - stable hemodialysis per nephrology Patient was accepted early on for inpatient rehab at [facility]. However he was too unstable to transfer due to ongoing hypotension and hypoglycemia Monitor blood sugar today off D5W, and if stable will discharge to [facility].
[2021-04-03 08:12] LABS: Absolute Lymphocytes (CBC) 0.5 K/uL (0.7-4.9); Basophils % 0.8 % (0-1.3); Hematocrit 37.9 % (39.6-49.0); Lymphocytes % 10.3 % (15.3-44.8); MPV 7.9 fL (7.6-11.3); RBC Red Blood Cell Count 4.75 M/uL (4.33-5.43)
[2021-04-03 08:24] LABS: Potassium 3.3 mmol/L (3.5-5.1)
[2021-04-03 08:56] VITALS: TEMP 96.9
[2021-04-03] MEDS: NEPRO SHAKE 237 ML CAN PO SCH ×2 (09:00→14:00)
[2021-04-03] MEDS: MIDODRINE HCL 5 MG TABLET PO SCH ×2 (09:00→14:00)
[2021-04-03] MEDS ORDERED: dexAMETHasone 4 MG TAB PO SCH (09:00)
[2021-04-03] MEDS: MAGNESIUM OXIDE 400 MG TAB PO SCH (09:00)
[2021-04-03] MEDS: DOCUSATE NA 100 MG CAP PO SCH (09:12)
[2021-04-03] MEDS: CALCITROL 0.25 MCG CAP PO SCH (09:12)
[2021-04-03] MEDS: APIXABAN 2.5 MG TABLET PO SCH (09:12)
[2021-04-03 10:24] VITALS: O2SAT 95
--- NOTE | 2021-04-03 15:10 | P.DS ---
Admission Date: 03/21/21 Discharge Date: 04/03/21 Disposition: TRANSFER TO SENIOR CARE Discharge Condition: FAIR Reason for Admission: Altered mental status - Problems (1) COVID-19 virus infection Current Visit: Yes Status: Acute (2) Altered mental status Current Visit: Yes Status: Acute Qualifiers: Altered mental status type: unspecified Qualified Code(s): R41.82 - Altered mental status, unspecified (3) Hypoglycemia Current Visit: Yes Status: Acute (4) ESRD on hemodialysis Onset Date: 12/22/15 Current Visit: Yes Status: Chronic (5) Anemia in CKD (chronic kidney disease) Onset Date: 12/22/15 Current Visit: No Status: Acute Brief History of Present Illness: 65-year-old male patient with a history of end-stage renal disease on dialysis presented to the emergency room via EMS after significant other called EMS for frequent falls. EMS discovered that patient's blood glucose level was 54. And given oral glucose which brought his blood sugar up. By the time patient was seen in the emergency room patient's glucose was 158. Patient was evaluated and found to have a sodium of 134, potassium 4.0, chloride 100, bicarb 30, BUN of 22, creatinine 6.5, glucose 92. Patient's white cell count was 4.4, hemoglobin 11, hematocrit 35.5, platelet 131. Patient had magnesium of 1.6 and a BNP of 22,297. Patient stated that he was dialyzed the previous day. Patient tested positive for COVID 19. Chest x-ray showed no pneumonia. He was admitted for further management. Hospital Course: Diagnosis Acute hypoxemic respiratory failure secondary to COVID-19 pneumonia Acute metabolic encephalopathy, secondary to hypoglycemia/hypotension/COVID-19 Hypoglycemia secondary to not eating Hypotension ESRD on hemodialysis Anemia in chronic kidney disease Hypoglycemia Hypotension Acute Encephalopathy He has had hypoglycemia secondary to not eating. Patient was maintained on D5 water for days. He was later eating when fed by family. His blood sugar has remained stable without D5 water for 2 days. Encephalopathy likely secondary to COVID. Encephalopathy has improved but not resolved. Neuro consulted, CT/MRI negative. EEG completed. No spikes to suggest seizure activity. Findings suggestive of encephalopathy patient has ESRD and chronic ischemic changes which put him at high risk of encephalopathy from COVID19 Patient being fed with assistance. PEG tube feeding was considered but family want to try feeding with assistance first. He will need blood sugar monitoring at rehab to identify and address hypoglycemia as as needed Blood pressure improved. Patient is no longer hypotensive. He is maintained on midodrine. COVID-19 pneumonia Patient was fully vaccinated with Moderna in July/August of this year patient required O2 for a few days for COVID pneumonia. He was weaned off oxygen. Patient is very weak / debilitated. Seen by PT who recommended inpatient rehab. ESRD on HD anemia in chronic disease vit d deficiency Low 25-OH vitamin-D. On vitamin-D replacement. H/H - stable He underwent routine hemodialysis. Vital Signs/Physical Exam: Temp Pulse Resp BP Pulse Ox 96.9 F 102 H 16 138/61 95 04/03/21 12:00 04/03/21 12:00 04/03/21 12:00 04/03/21 12:00 04/03/21 12:00 General: In no apparent distress, Other (Awake) HEENT: Mucous membr. moist/pink Neck: JVD not distended Respiratory: Clear to auscultation bilaterally, Normal air movement Cardiovascular: No edema, Regular rate/rhythm, Normal S1 S2 Gastrointestinal: Normal bowel sounds, Soft and benign, Non-distended, No tenderness Integumentary: Other (Bilateral lower extremity xerosis) Neurological: Other (No focal motor deficit) Laboratory Data at Discharge: WBC 4.60 K/uL (4.3-10.9) D 04/03/21 07:38 Hgb 12.1 g/dL (13.6-17.9) L 04/03/21 07:38 Hct 37.9 % (39.6-49.0) L 04/03/21 07:38 Plt Count 177 K/uL (152-406) 04/03/21 07:38 PT 15.6 SECONDS (9.5-12.5) H 03/20/21 11:40 INR 1.35 03/20/21 11:40 Sodium 140 mmol/L (136-145) 04/03/21 07:38 Potassium 3.3 mmol/L (3.5-5.1) L 04/03/21 07:38 BUN 35 mg/dL (7-18) H 04/03/21 07:38 Creatinine 7.73 mg/dL (0.55-1.3) H* D 04/03/21 07:38 Glucose 89 mg/dL (74-106) 04/03/21 07:38 Uric Acid 4.9 mg/dL (3.5-7.2) 03/26/21 02:56 Phosphorus 2.4 mg/dL (2.5-4.9) L 03/31/21 05:10 Magnesium 2.4 mg/dL (1.8-2.4) 03/31/21 05:10 Total Bilirubin 2.5 mg/dL (0.2-1.0) H 03/31/21 05:10 AST 26 U/L (15-37) 03/31/21 05:10 ALT 31 U/L (12-78) 03/31/21 05:10 Alkaline Phosphatase 138 U/L (45-117) H 03/31/21 05:10 Troponin I 0.04 ng/mL (0.0-0.045) 03/22/21 13:59 Amylase 40 U/L (25-115) 03/20/21 14:04 Lipase 67 U/L (73-393) L 03/20/21 14:04 Home Medications: Cinacalcet HCl [Sensipar*] 1 tab PO BEDTIME 09/02/13 Docusate [Colace Cap*] 1 tab PO BID 09/02/13 Omeprazole [Prilosec] 40 mg PO DAILY 09/02/13 allopurinoL [Zyloprim*] 100 mg PO BEDTIME 09/02/13 Mesalamine [Pentasa*] 4 tab PO BID 07/10/14 Nati Pro Ultra [place] 3 Soft Gels 1 cap PO BID 12/16/15 Sevelamer Carbonate [Renvela*] 800 mg PO TIDWM 12/16/15 Apixaban [Eliquis *] 2.5 mg PO BID 09/26/20 Folic Acid/Multivit,Iron,[place] [One Daily Complete Tablet] 1 each PO DAILY 09/26/20 Calcitrol [Rocaltrol*] 0.5 mcg PO DAILY cap 04/03/21 Epoetin [Retacrit] 4,000 unit SQ M,W,F vial 04/03/21 Glucagon [Gvoke Pfs 1-Pack Syringe] 1 mg SQ DAILY PRN #5 syringe 04/03/21 Magnesium Oxide [Mag 0X*] 400 mg PO DAILY tab 04/03/21 Midodrine HCl [Proamatine*] 5 mg PO TID tab 04/03/21 Nepro Shake [Nepro*] 237 ml PO TID can 04/03/21 Vitamin D [Drisdol*] 50,000 unit PO Q7D@0900 cap 04/03/21 dexAMETHasone [Dexamethasone] 2 mg PO DAILY #15 tablet 04/03/21 New Medications: dexAMETHasone [Dexamethasone] 2 mg PO DAILY #15 tablet Glucagon [Gvoke Pfs 1-Pack Syringe] 1 mg SQ DAILY PRN #5 syringe PRN Reason: Hypoglycemia FSG<50 Physician Discharge Instructions: Feed with assistance. Start from full liquid diet and proceed as tolerated. Check fingerstick glucose every 6 hrs. Diet: Regular Activity: Fall precautions Followup: Unknown,U [Primary Care Provider] - Time spent managing pt's care (in minutes): 42
[2021-04-03 16:13] VITALS: BP 125/73
--- NOTE | 2021-04-03 21:01 | P.PN ---
Date of Service: 04/03/21 Vital Signs Temp Pulse Resp BP Pulse Ox 96.9 F 87 16 125/73 96 04/03/21 16:00 04/03/21 16:00 04/03/21 16:00 04/03/21 16:00 04/03/21 16:00 Assessment/ Plan: Nephrology Progress Note Limited IH/ ROS due to AMS AMS waxing and waning No acute events overnight Vitals, medications blood work and imaging reviewed in the chart NAD. Obese. NCAT. MMM. Neck supple. Diminished. RRR. ND Abd. No C/C/E. Somnolent. No speech. A/P Continue current POC and Medications other than the changes listed. AM labs as ordered. Recommend daily weight. ESRD -HD TIW Chronic hypotension -Continue Midodrine Diastolic CHF, chronic -Low sodium diet -HD with UF Moderate malnutrition -Encourage nutrition Anemia in CKD -Continue Retacrit CKD MBD -Continue Vitamin D Toxic metabolic encephalopathy of unclear etiology -COVID vs steroid encephalopathy COVID-19 PNA Acute hypoxic respiratory failure -Wean Dexamethasone 4mg daily -Continue Oxygen
== END 2021-04-03 17:10 | DRG 177 ==
LOC: ER 09:55 → ERHOLD 17:34 → 4TH 22:10 → OBSVTOIN 03-21 16:07 → 4TH 03-31 10:43
PROVIDERS: ADMIT Internal Medicine; ATTEND Internal Medicine
DX: U07.1 COVID-19 (principal); J12.82 Pneumonia due to coronavirus disease 2019; J96.01 Acute respiratory failure with hypoxia; G93.41 Metabolic encephalopathy; N18.6 End stage renal disease; I12.0 Hypertensive chronic kidney disease with stage 5 chronic kidney disease or end stage renal disease; E46 Unspecified protein-calorie malnutrition; Z68.43 Body mass index [BMI] 50.0-59.9, adult; I48.20 Chronic atrial fibrillation, unspecified; E11.649 Type 2 diabetes mellitus with hypoglycemia without coma; I95.9 Hypotension, unspecified; E11.22 Type 2 diabetes mellitus with diabetic chronic kidney disease; D63.1 Anemia in chronic kidney disease; E83.51 Hypocalcemia; E83.42 Hypomagnesemia; E66.9 Obesity, unspecified; R25.1 Tremor, unspecified
CPT/HCPCS: 36415; 70450; 70551; 71045; 71250; 72125; 80048; 80053; 80076; 80320; 82140; 82150; 82306; 82533; 82652; 82728; 82805; 82947; 83690; 83735; 83880; 84100; 84145; 84443; 84484; 84550; 85025; 85027; 85610; 85652; 86140; 90935; 93005; 93306; 95816; 97110; 97112; 97162; 97530; 99285; G0378; J1100; J1644; J2405; J7030; J7799; J8540; P9047; Q5105; U0003

== ENCOUNTER 2022-08-01 12:51 | Inpatient (IN) | payer OTHER, MEDICARE ==
[2022-08-01 13:21] LABS: Absolute Lymphocytes (CBC) 0.3 K/uL (0.7-4.9); Hematocrit 43.9 % (39.6-49.0); Lymphocytes % 4.8 % (15.3-44.8); MCV 87.7 fL (80-100); RBC Red Blood Cell Count 5.01 M/uL (4.33-5.43)
[2022-08-01 13:26] LABS: Protime INR 1.21
--- NOTE | 2022-08-01 13:28 | RAD REPORT ---
EXAM DESCRIPTION: RAD - Chest Single View - 08/01/2022 1:18 pm CLINICAL HISTORY: COUGH Chest pain. COMPARISON: Chest Single View dated 03/28/2021; Chest Single View dated 03/26/2021; Chest Single View dated 03/24/2021; Chest Single View dated 03/20/2021 FINDINGS: Portable technique limits examination quality. Slightly prominent interstitial markings could indicate viral infection or interstitial pulmonary chata ma. The heart is mildly enlarged in size. No displaced fractures. IMPRESSION: Probable mild CHF.
[2022-08-01 13:45] LABS: Albumin 2.9 g/dL (3.4-5.0); Bilirubin Total 0.7 mg/dL (0.2-1.0); Potassium 4.6 mmol/L (3.5-5.1); Protein, Total 6.6 g/dL (6.4-8.2)
--- NOTE | 2022-08-01 14:10 | RAD REPORT ---
EXAM DESCRIPTION: CT - Abdomen Pelvis Wo Contrast - 08/01/2022 1:51 pm CLINICAL HISTORY: Abdominal pain. abd pain, hypotension COMPARISON: CT ABDOMEN PELVIS WO CONTRAST dated 08/13/2014 TECHNIQUE: CT imaging of the abdomen and pelvis was performed without contrast. Solid organ, bowel a nd vascular assessment is limited due to lack of IV and oral contrast. All CT scans are performed using dose optimization technique as appropriate and may include automated exposure control or mA/KV adjustment according to patient size. FINDINGS: The lower lung hughes are clear.Cholecystectomy. The liver, spleen, pancreas, adrenal glands are within normal limits for a limited non-contrast exami nation.Polycystic kidneys bilaterally. No bowel obstruction, free air, free fluid or abscess. Sigmoid diverticulosis coli without diverticul itis. Appendectomy. Atherosclerosis. The osseous structures are within normal limits. IMPRESSION: No acute intra-abdominal or pelvic findings. Polycystic kidney disease. A limited non-contrast examination was performed as detailed.
[2022-08-01] MEDS ORDERED: NA CHLORIDE 0.9% 500 ML ONE (14:16)
[2022-08-01 14:17] LABS: SARS-COV-2 RT PCR POSITIVE (NEGATIVE)
--- NOTE | 2022-08-01 16:08 | EDPHYS ---
Physician Documentation [facility] Name: Adriel Raya Age: 67 yrs Sex: Male : 1955 Arrival Date: 08/01/2022 Time: 12:54 Bed 6 Private MD: ED Physician Steve Anand HPI: 08/01 13:22 This 67 yrs old Black Male presents to ER via EMS with complaints of AMS. rn 13:22 The patient presents with decreased responsiveness. Onset: The symptoms/episode rn began/occurred yesterday. Possible causes: unknown. Associated signs and symptoms: Pertinent positives: abdominal pain, cough, Pertinent negatives: blurred vision, chest pain, headache, seizure, shortness of breath, vomiting. Current symptoms: In the emergency department the patient's symptoms are unchanged from the initial presentation. The patient has not experienced similar symptoms in the past. The patient has not recently seen a physician. reports had dialysis yesterday, last night began complaining of abd pain, and seemed sleepy. Patient reports mild cough and denies abd pain. No fever. No vomiting. No trauma or fall. . Historical: - Allergies: 13:00 Norvasc; ld1 13:00 Augmentin; ld1 - PMHx: 13:00 Dialysis; Diverticulitis; Hypertension; ld1 - Immunization history:: Adult Immunizations up to date, Client reports receiving the 2nd dose of the Covid vaccine. - Social history:: Smoking status: Patient denies any tobacco usage or history of. Patient/guardian denies using alcohol. - Family history:: not pertinent. - Hospitalizations: : No recent hospitalization is reported. ROS: 13:22 Constitutional: Negative for fever, chills, and weight loss, Eyes: Negative for injury, rn pain, redness, and discharge, Cardiovascular: Negative for chest pain, palpitations, and edema, Respiratory: + cough Abdomen/GI: + abd pain Back: Negative for injury and pain, MS/Extremity: Negative for injury and deformity, Skin: Negative for injury, rash, and discoloration, Neuro: + weakness Exam: 13:22 Constitutional: This is a well developed, well nourished patient who is somnolent, rn awakens to voice. Head/Face: Normocephalic, atraumatic. ENT: dry MM Cardiovascular: Regular rate and rhythm. No pulse deficits. Respiratory: Mild tachypnea, no retractions, bilateral crackles. Abdomen/GI: Soft, non-tender Skin: Warm, dry MS/ Extremity: Pulses equal, no cyanosis Neuro: Somnolent, awakens to voice, moves all 4 extremities with 4/5 strength, sensation intact. 13:51 ECG was reviewed by the Attending Physician. rn Vital Signs: 12:58 BP 85 / 63; Pulse 92; Resp 27; Temp 98.7(O); Pulse Ox 88% on R/A; Weight 144.24 kg; ld1 Height 5 ft. 9 in. (175.26 cm); Pain 0/10; 14:17 BP 89 / 69; Pulse 89; Resp 18; Pulse Ox 92% on 3 lpm NC; Pain 0/10; ld1 14:30 BP 98 / 80; Pulse 80; Resp 16; Pulse Ox 96% on 2 lpm NC; ld1 15:30 BP 98 / 61; Pulse 80; Resp 16; Pulse Ox 94% on 2 lpm NC; ld1 17:01 BP 99 / 54; Pulse 99; Resp 18; Pulse Ox 95% on 2 lpm NC; ld1 18:15 BP 90 / 76; Pulse 83; Resp 16; Temp 98.4(O); Pulse Ox 94% on 2 lpm NC; ld1 18:54 BP 88 / 58; Pulse 84; Resp 16; Pulse Ox 94% on 2 lpm NC; Pain 0/10; ld1 19:00 BP 95 / 65; Pulse 100; Resp 18; Temp 98.7; Pulse Ox 98% on 2 lpm NC; Pain 3/10; pf1 20:00 BP 106 / 83; Pulse 89; Resp 15; Temp 98.7; Pulse Ox 98% on 2 lpm NC; Pain 3/10; pf1 12:58 Body Mass Index 46.96 (144.24 kg, 175.26 cm) ld1 18:54 ERP ordered NS for low BP ld1 MDM: 12:59 Patient medically screened. rn 16:05 Differential Diagnosis: electrolyte abnormality, pneumonia, sepsis, TIA, volume rn depletion, COVID, Flu, dehydration. Data reviewed: vital signs, nurses notes, lab test result(s), radiologic studies, CT scan, plain films, and as a result, I will admit patient. Management of patient was discussed with the following: Hospitalist: Case and management discussed with Dr. Coelho.. Independent interpretation of the following test(s) in the Emergency Department EKG: See my EKG interpretation above X-Ray: My interpretation is CXR neg for pneumonia or pneumothorax. Counseling: I had a detailed discussion with the patient and/or guardian regarding: the historical points, exam findings, and any diagnostic results supporting the discharge/admit diagnosis, lab results, radiology results, the need for further work-up and treatment in the hospital. Response to treatment: the patient's symptoms have mildly improved after treatment, and as a result, I will admit patient. ED course: Pt improved a little with fluids, is ESRD cannot give too much fluids, still very weak and somnolent, no acute findings on CT abdomen/pelvis. Will admit to Dr. Coelho for further care. . 18:49 ED course: Limited fluid bolus 2/2 ESRD patient and high likelihood of pulmonary edema, rn also patient with SARS. . 08/01 13:00 Order name: Blood Culture Adult (2) 08/01 13:00 Order name: CBC with Diff; Complete Time: 18:48 08/01 13:00 Order name: CMP; Complete Time: 14:13 08/01 13:00 Order name: Lactate w/ 2H reflex if indic.; Complete Time: 14:13 08/01 13:00 Order name: Protime (+inr); Complete Time: 14:13 08/01 13:00 Order name: Ptt, Activated; Complete Time: 14:13 08/01 13:00 Order name: Urine Culture 08/01 13:00 Order name: Urine Microscopic Only 08/01 13:00 Order name: COVID-19/FLU A+B; Complete Time: 15:50 08/01 13:21 Order name: Glucose, Ancillary Testing; Complete Time: 14:13 [facility] 08/01 16:54 Order name: CBC Smear Scan; Complete Time: 18:48 EDGA 08/01 17:21 Order name: CBC with Automated Diff [facility] 08/01 17:21 Order name: CBC with Automated Diff [facility] 08/01 17:21 Order name: Comprehensive Metabolic Panel [facility] 08/01 17:21 Order name: Comprehensive Metabolic Panel [facility] 08/01 17:21 Order name: Lipid Profile EDMS 08/01 17:21 Order name: Lipid Profile EDMS 08/01 17:21 Order name: Protime (+INR) EDMS 08/01 17:21 Order name: Protime (+INR) EDMS 08/01 17:21 Order name: PTT, Activated Partial Thromb EDMS 08/01 17:21 Order name: PTT, Activated Partial Thromb EDMS 08/01 17:27 Order name: Cortisol EDMS 08/01 17:27 Order name: Folic Acid, RBC EDMS 08/01 17:27 Order name: Hemoglobin A1c EDMS 08/01 17:27 Order name: Iron EDMS 08/01 17:27 Order name: Magnesium EDMS 08/01 17:27 Order name: NT PRO-BNP EDMS 08/01 17:27 Order name: T4 Free EDMS 08/01 17:27 Order name: Thyroid Stimulating Hormone EDMS 08/01 17:27 Order name: Vitamin B12 Level EDMS 08/01 13:00 Order name: Chest Single View XRAY; Complete Time: 14:13 rn 08/01 13:00 Order name: EKG; Complete Time: 13: rn 08/01 13:00 Order name: Accucheck; Complete Time: 13:09 rn 08/01 13:00 Order name: Cardiac monitoring; Complete Time: 13: rn 08/01 13:00 Order name: EKG - Nurse/Tech; Complete Time: 13: rn 08/01 13:00 Order name: IV Saline Lock - Large Bore; Complete Time: 13: rn 08/01 13:00 Order name: Labs collected and sent; Complete Time: 14:29 rn 08/01 13:00 Order name: O2 Per Protocol; Complete Time: 13: rn 08/01 13:00 Order name: O2 Sat Monitoring; Complete Time: 13: rn 08/01 13:00 Order name: Vital Signs; Complete Time: 13: rn 08/01 13:00 Order name: CT Abd/Pelvis - Without Contrast; Complete Time: 14:13 rn 08/01 17:21 Order name: CONS Physician Consult EDMS 08/01 17:21 Order name: Renal EDMS 08/01 17:37 Order name: Aldosterone EDMS 08/01 17:37 Order name: Renin Activity, Plasma EDMS 08/01 17:37 Order name: Renin Activity, Plasma EDMS EC:51 Rate is 84 beats/min. Rhythm is irregularly irregular. Left axis deviation noted. QRS rn is positive in lead I and negative in lead aVF. QRS interval is normal. QT interval is normal. No Q waves. T waves are Normal. No ST changes noted. Clinical impression: Atrial Fibrillation. Interpreted by me. Reviewed by me. Administered Medications: 13:04 Drug: NS 0.9% 500 ml Route: IV; Rate: bolus; Site: right antecubital; ld1 19:00 Follow up: IV Status: Completed infusion; IV Intake: 500ml pf1 14:16 Drug: NS 0.9% 500 ml Route: IV; Rate: bolus; Site: right antecubital; ld1 19:00 Follow up: IV Status: Completed infusion; IV Intake: 500ml pf1 18:54 Drug: NS 0.9% 250 ml Route: IV; Rate: calculated rate; Site: right antecubital; ld1 20:00 Follow up: IV Status: Completed infusion; IV Intake: 250ml pf1 20:01 Follow up: Response: No adverse reaction pf1 Disposition Summary: 08/01/22 16:07 Hospitalization Ordered Hospitalization Status: Observation rn Provider: Beto Coelho rn Location: Telemetry/MedSurg (observation) rn Condition: Stable rn Problem: new rn Symptoms: have improved rn Bed/Room Type: Standard rn Room Assignment: 415(08/01/22 17:44) eb Diagnosis - SARS-associated coronavirus as the cause of diseases classified elsewhere rn - Hypotension, unspecified rn - End stage renal disease rn Forms: - Medication Reconciliation Form rn - SBAR form rn Signatures: Dispatcher [employer] EDGA Steve Anand MD MD rn Botello, Elizabeth eb Dibbern, Lauren, RN RN ld1 Mattie benitez RN pf1 Corrections: (The following items were deleted from the chart) 13:04 13:00 Reina ordered. rn ld1 13:04 13:00 Urine Dipstick-Ancillary ordered. rn ld1 17:44 16:07 rn amparo
--- NOTE | 2022-08-01 16:08 | ER ---
Nurse's Notes [facility] Name: Adriel Raya Age: 67 yrs Sex: Male : 1955 Arrival Date: 08/01/2022 Time: 12:54 Bed 6 Private MD: Diagnosis: SARS-associated coronavirus as the cause of diseases classified elsewhere;Hypotension, unspecified;End stage renal disease Presentation: 08/01 12:58 Chief complaint: EMS states: toned out to pt home for weakness. Family reports pt ld1 sleeping and not wanting to wake up. Received dialysis yesterday - even since pt has been weak and tired. Coronavirus screen: At this time, the client does not indicate any symptoms associated with coronavirus-19. Ebola Screen: No symptoms or risks identified at this time. Initial Sepsis Screen: Does the patient meet any 2 criteria? RR > 20 per min. Systolic BP < 90 mmHg. HR > 90 bpm. Does the patient have a suspected source of infection? No. Patient's initial sepsis screen is negative. Risk Assessment: Do you want to hurt yourself or someone else? Patient reports no desire to harm self or others. Onset of symptoms was August 01, 2022. 12:58 Method Of Arrival: EMS: [facility] ld1 12:58 Acuity: SAM 3 ld1 Triage Assessment: 13:00 General: Appears in no apparent distress. comfortable, Behavior is calm, cooperative, ld1 appropriate for age. Pain: Denies pain. EENT: No signs and/or symptoms were reported regarding the EENT system. Neuro: Level of Consciousness is awake, alert, obeys commands, Oriented to person, place, time, situation, Appropriate for age. Cardiovascular: Capillary refill < 3 seconds Patient's skin is warm and dry. Rhythm is atrial fibrillation. Respiratory: Airway is patent Respiratory effort is even, labored. GI: Abdomen is round obese. : No signs and/or symptoms were reported regarding the genitourinary system. Derm: No signs and/or symptoms reported regarding the dermatologic system. Musculoskeletal: No signs and/or symptoms reported regarding the musculoskeletal system. Historical: - Allergies: 13:00 Norvasc; ld1 13:00 Augmentin; ld1 - PMHx: 13:00 Dialysis; Diverticulitis; Hypertension; ld1 - Immunization history:: Adult Immunizations up to date, Client reports receiving the 2nd dose of the Covid vaccine. - Social history:: Smoking status: Patient denies any tobacco usage or history of. Patient/guardian denies using alcohol. - Family history:: not pertinent. - Hospitalizations: : No recent hospitalization is reported. Screenin:01 [facility] ED Fall Risk Assessment (Adult) History of falling in the last 3 months, ld1 including since admission No falls in past 3 months (0 pts). Abuse screen: Denies threats or abuse. Denies injuries from another. Nutritional screening: No deficits noted. Tuberculosis screening: No symptoms or risk factors identified. Assessment: 13:01 Reassessment: See triage assessment. ld1 14:30 Reassessment: Patient appears in no apparent distress at this time. Patient and/or ld1 family updated on plan of care and expected duration. Pain level reassessed. Pt laying in bed with at bedside. Denies concerns at this time. 15:30 Reassessment: Patient appears in no apparent distress at this time. No changes from ld1 previously documented assessment. 17:40 Reassessment: Attempted to call report - was told "would not accept report prior to ld1 shift change - I didn't know I was getting a patient, I just now found out.". 17:52 Reassessment: Patient appears in no apparent distress at this time. No changes from ld1 previously documented assessment. Patient and/or family updated on plan of care and expected duration. Pain level reassessed. Patient denies pain at this time. 18:15 Reassessment: Patient appears in no apparent distress at this time. Patient is alert, ld1 oriented x 3, equal unlabored respirations, skin warm/dry/pink. 18:55 Reassessment: Patient appears in no apparent distress at this time. Patient and/or ld1 family updated on plan of care and expected duration. Pain level reassessed. 19:15 General: Appears in no apparent distress. comfortable, obese, well groomed, well pf1 developed, Behavior is calm, cooperative, appropriate for age, quiet. 19:15 General: weakness. Pain: Complains of pain in head Pain currently is 3 out of 10 on a pf1 pain scale. Pain began 2 hours ago. Neuro: Level of Consciousness is awake, alert, obeys commands, Oriented to person, place, time, situation. Cardiovascular: No deficits noted. Capillary refill < 3 seconds Patient's skin is warm and dry. Respiratory: No deficits noted. Airway is patent Trachea midline Respiratory effort is even, unlabored, Respiratory pattern is regular, symmetrical. GI: No deficits noted. No signs and/or symptoms were reported involving the gastrointestinal system. : No deficits noted. No signs and/or symptoms were reported regarding the genitourinary system. EENT: No deficits noted. No signs and/or symptoms were reported regarding the EENT system. Derm: No deficits noted. No signs and/or symptoms reported regarding the dermatologic system. Musculoskeletal: Reports weakness in generalized. 20:00 Reassessment: Patient appears in no apparent distress at this time. No changes from pf1 previously documented assessment. Patient and/or family updated on plan of care and expected duration. Pain level reassessed. Patient is alert, oriented x 3, equal unlabored respirations, skin warm/dry/pink. Patient denies pain at this time. Patient states symptoms have improved. Vital Signs: 12:58 BP 85 / 63; Pulse 92; Resp 27; Temp 98.7(O); Pulse Ox 88% on R/A; Weight 144.24 kg; ld1 Height 5 ft. 9 in. (175.26 cm); Pain 0/10; 14:17 BP 89 / 69; Pulse 89; Resp 18; Pulse Ox 92% on 3 lpm NC; Pain 0/10; ld1 14:30 BP 98 / 80; Pulse 80; Resp 16; Pulse Ox 96% on 2 lpm NC; ld1 15:30 BP 98 / 61; Pulse 80; Resp 16; Pulse Ox 94% on 2 lpm NC; ld1 17:01 BP 99 / 54; Pulse 99; Resp 18; Pulse Ox 95% on 2 lpm NC; ld1 18:15 BP 90 / 76; Pulse 83; Resp 16; Temp 98.4(O); Pulse Ox 94% on 2 lpm NC; ld1 18:54 BP 88 / 58; Pulse 84; Resp 16; Pulse Ox 94% on 2 lpm NC; Pain 0/10; ld1 19:00 BP 95 / 65; Pulse 100; Resp 18; Temp 98.7; Pulse Ox 98% on 2 lpm NC; Pain 3/10; pf1 20:00 BP 106 / 83; Pulse 89; Resp 15; Temp 98.7; Pulse Ox 98% on 2 lpm NC; Pain 3/10; pf1 12:58 Body Mass Index 46.96 (144.24 kg, 175.26 cm) ld1 18:54 ERP ordered NS for low BP ld1 ED Course: 12:54 Patient arrived in ED. eb 12:56 Steve Anand MD is Attending Physician. rn 13:00 Triage completed. ld1 13:00 Arm band placed on right wrist. ld1 13:01 Patient has correct armband on for positive identification. Placed in gown. Bed in low ld1 position. Call light in reach. Side rails up X2. poker room manager on. Pulse ox on. NIBP on. Door closed. Noise minimized. Warm blanket given. 13:01 No provider procedures requiring assistance completed. Maintain EMS IV. Dressing ld1 intact. Good blood return noted. Site clean \\T\\ dry. Gauge \\T\\ site: 20G RAC. 13:19 Chest Single View XRAY In Process Unspecified. EDMS 13:53 CT Abd/Pelvis - Without Contrast In Process Unspecified. EDMS 14:16 Barbara Berger, RN is Primary Nurse. ld1 14:29 Barbara Berger, YOEL is Primary Nurse. ld1 16:07 Beto Coelho MD is Hospitalizing Provider. rn 20:48 Patient admitted, IV remains in place. pf1 Administered Medications: 13:04 Drug: NS 0.9% 500 ml Route: IV; Rate: bolus; Site: right antecubital; ld1 19:00 Follow up: IV Status: Completed infusion; IV Intake: 500ml pf1 14:16 Drug: NS 0.9% 500 ml Route: IV; Rate: bolus; Site: right antecubital; ld1 19:00 Follow up: IV Status: Completed infusion; IV Intake: 500ml pf1 18:54 Drug: NS 0.9% 250 ml Route: IV; Rate: calculated rate; Site: right antecubital; ld1 20:00 Follow up: IV Status: Completed infusion; IV Intake: 250ml pf1 20:01 Follow up: Response: No adverse reaction pf1 Medication: 13:01 VIS not applicable for this client. ld1 Intake: 19:00 IV: 500ml; Total: 500ml. pf1 19:00 IV: 500ml; Total: 1000ml. pf1 20:00 IV: 250ml; Total: 1250ml. pf1 Outcome: 16:07 Decision to Hospitalize by Provider. rn 20:47 Admitted to Tele accompanied by tech, via stretcher, room 415, with oxygen, with chart, pf1 Report called to YOEL Ceron 20:47 Condition: stable 20:47 Instructed on the need for admit, Demonstrated understanding of instructions. 20:49 Patient left the ED. pf1 Signatures: Dispatcher [employer] EDMS Steve Anand MD MD rn Botello, Elizabeth eb Dibbern, Lauren, RN RN ld1 Mattie benitez RN RN pf1 Corrections: (The following items were deleted from the chart) 13:02 13:00 EKG completed in triage. Results shown to . ld1 ld1 18:15 18:15 BP 90 / 76; Pulse 83bpm; Resp 16bpm; Pulse Ox 94% RA; ld1 ld1 18:55 15:30 BP 98 / 61; Pulse 80bpm; Resp 16bpm; Pulse Ox 94% RA; ld1 ld1 18:55 17:01 BP 99 / 54; Pulse 99bpm; Resp 18bpm; Pulse Ox 95% RA; ld1 ld1 18:55 14:30 BP 98 / 80; Pulse 80bpm; Resp 16bpm; Pulse Ox 96% RA; ld1 ld1 18:55 18:15 BP 90 / 76; Pulse 83bpm; Resp 16bpm; Pulse Ox 94% RA; Temp 98.4F Oral; ld1 ld1 22:53 19:15 Musculoskeletal: Reports pf1 pf1
[2022-08-01 16:54] LABS: Blood Morphology Comment NOT SEEN (NOT SEEN); Platelet Estimate DECR; White Blood Cell Scan OK (OK)
[2022-08-01] MEDS ORDERED: ONDANSETRON 4 MG/2 ML VIAL IV PRN (17:16)
[2022-08-01] MEDS ORDERED: ACETAMINOPHEN 500 MG TAB PO PRN (17:16)
--- NOTE | 2022-08-01 17:28 | P.HP ---
Certification for Inpatient Patient admitted to: Inpatient With expected LOS: >2 Midnights Patient will require the following post-hospital care: None Practitioner: I am a practitioner with admitting privileges, knowledge of patient current condition, hospital course, and medical plan of care. Services: Services provided to patient in accordance with Admission requirements found in Title 42 Section 412.3 of the Code of Federal Regulations Patient History Date of Service: 08/01/22 Reason for admission: Hypotension; adrenal insufficiency; COVID-19 History of Present Illness: Patient is a 67-year-old gentleman who has a history of polycystic kidney disease, adrenal insufficiency, and has been end-stage renal disease for a while who presents to the emergency room with decreased responsiveness. Patient's primary care physician is Dr. Snyder and patient's electronic communications technician is Dr. Franklin. I spoke to the daughter who gave me a lot of information regarding his medical care. She states that over the last 2 dialysis sessions on Saturdays his blood pressure has been dropping. They have to keep him at dialysis for a little bit longer than normal just to let his blood pressure come up. Yesterday they noted that patient was hypotensive once again with diastolic in the 30s. She thinks his systolic was in the 80s. They monitored him and once his blood pressure came back up he was discharged home. Patient's noted that he was not responding appropriately today so she called EMS and they brought him into the emergency room. In the emergency room he was slightly hypotensive and he was given a bolus and his blood pressure has improved. He is more awake and alert and is able to talk to me. The states that he was not interacting wh atsoever this morning. We will go ahead and started him on hydrocortisone. He was also incidentally positive for COVID-19. No pulmonary issues at this time. He is kind is to initial vaccines and is also received a booster. He goes to [facility] pharmacy. Patient will be admitted for further treatment. We will probably keep him here till dialysis on Tuesday and see how he responds. Anticipate discharge after his dialysis session on Tuesday if he clinically is doing well. Allergies amlodipine besylate [From Norvasc] Allergy (Verified 01/25/22 13:59) Anaphylaxis, lower leg swelling amoxicillin [From Augmentin] Allergy (Verified 01/25/22 13:59) Nausea/Vomiting/Diarrhea clavulanic acid [From Augmentin] Allergy (Verified 01/25/22 13:59) Nausea/Vomiting/Diarrhea Home Medications: Cinacalcet HCl [Sensipar*] 1 tab PO BEDTIME 09/02/13 Docusate [Colace Cap*] 1 tab PO BID 09/02/13 Omeprazole [Prilosec] 40 mg PO DAILY 09/02/13 allopurinoL [Zyloprim*] 100 mg PO BEDTIME 09/02/13 Apixaban [Eliquis *] 2.5 mg PO BID 09/26/20 Albuterol Sulfate [Proair Hfa] 2 puff IH Q6HP PRN 01/25/22 Gabapentin 300 mg PO TID 01/25/22 Hydrocortisone [Cortef] 10 mg PO BID 01/25/22 L. Acidophilus/Bifido. Longum [Probiotic Pearls Acidophilus] 1 each PO BID 01/25/22 Mesalamine [Pentasa] 4 cap PO BID 01/25/22 Metoprolol Tartrate [Lopressor] 100 mg PO BID 01/25/22 Multivitamin [One-Daily Multi-Vitamin] 1 each PO DAILY 01/25/22 Simvastatin 20 mg PO BEDTIME 01/25/22 Tramadol HCl [Ultram] 50 mg PO Q6H 01/25/22 - Past Medical/Surgical History Diabetic: No -: Diverticulitis -: HTN -: Gout -: Renal disease -: HD on T, Thur, Sat -: Asbestosis -: Obstructive sleep apnea with CPAP at night -: Adrenal insufficiency -: Cardiac catheterization -: Appendectomy -: Cholecystectomy -: Left knee arthroscopy - Family History Father Family History: Reviewed- Non-Contributory - Social History Smoking Status: Former smoker Alcohol use: No CD- Drugs: No Caffeine use: Yes Review of Systems 10-point ROS is otherwise unremarkable Physical Examination - Vital Signs Temperature: 98 F Blood Pressure: 140/80 Pulse: 80 Respirations: 18 Pulse Ox (%): 95 - Physical Exam General: Alert, In no apparent distress, Oriented x3 HEENT: Atraumatic, PERRLA, Mucous membr. moist/pink, EOMI, Sclerae nonicteric Neck: Supple, 2+ carotid pulse no bruit, No LAD, Without JVD or thyroid abnormality Respiratory: Clear to auscultation bilaterally, Normal air movement Cardiovascular: Regular rate/rhythm, Normal S1 S2, No murmurs Gastrointestinal: Normal bowel sounds, Soft and benign, Non-distended, No tenderness Musculoskeletal: No clubbing, No swelling, No tenderness Integumentary: No rashes Neurological: Normal gait, Normal speech, Normal strength at 5/5 x4 extr, Normal tone, Sensation intact, Cranial nerves 3-12 intact, Normal affect Lymphatics: No axilla or inguinal lymphadenopathy - Studies Laboratory Data (last 24 hrs) 08/01/22 13:10: PT 13.3 H, INR 1.21, APTT 32.7 08/01/22 13:10: Sodium 132 L, Potassium 4.6, BUN 22 H, Creatinine 7.75 H*, Glucose 73 L, Total Bilirubin 0.7, AST 19, ALT 28, Alkaline Phosphatase 115 08/01/22 13:10: WBC 6.10, Hgb 14.5, Hct 43.9, Plt Count 138 L Assessment & Plan - Problems (Diagnosis) (1) Adrenal insufficiency Current Visit: Yes Status: Acute (2) COVID-19 Current Visit: Yes Status: Acute (3) COVID-19 vaccine series completed Current Visit: Yes Status: Acute (4) Adrenal crisis syndrome Current Visit: Yes Status: Acute (5) Altered mental status Current Visit: No Status: Acute Qualifiers: Altered mental status type: unspecified Qualified Code(s): R41.82 - Altered mental status, unspecified (6) COVID-19 virus infection Current Visit: No Status: Acute (7) Diverticulosis Onset Date: 12/22/15 Current Visit: No Status: Acute (8) Hypotension Current Visit: No Status: Acute Qualifiers: Hypotension type: idiopathic hypotension Qualified Code(s): I95.0 - Idiopathic hypotension (9) ESRD on hemodialysis Onset Date: 12/22/15 Current Visit: No Status: Chronic (10) ZEV (obstructive sleep apnea) Current Visit: Yes Status: Acute - Plan Plan: 1. IV hydrocortisone 2. Check renin, aldosterone levels 3. Check with his [facility] pharmacy to see if he is taking his cortisone 4. Continue monitoring his hemodynamics very closely; continue with telemetry 5. Hemodialysis per nephrology-Dr. Franklin 6. CPAP at night 7. GI and DVT prophylaxis Discharge Plan: Home Plan to discharge in: Greater than 2 days - Advance Directives Does patient have a Living Will: Yes Does patient have a Durable POA for Healthcare: No - Code Status/Comfort Care Code Status Assessed: Yes Code Status: Full Code Critical Care: No Time Spent Managing PTS Care (In Minutes): 45
[2022-08-01] MEDS ORDERED: HYDROCORTISONE SUC 100 MG INJ IV ONE (17:35)
[2022-08-01] MEDS ORDERED: NA CHLORIDE 0.9% 250 ML ONE (18:54)
[2022-08-01 21:25] VITALS: BMI 44.7
[2022-08-02] MEDS ORDERED: NA CHLORIDE 0.9% 250 ML IV ONE (05:58)
[2022-08-02] MEDS ORDERED: NA CHLORIDE 0.9% 250 ML ONE (06:05)
[2022-08-02 07:38] LABS: Protime INR 1.25
--- NOTE | 2022-08-02 07:44 | P.CNS ---
Date of Consult: 08/02/22 Reason for Consult: ESRD, hypotension, AMS Requesting Physician: Beto Coelho Chief Complaint: Hypotension; adrenal insufficiency; COVID-19 History of Present Illness: Patient is a 67-year-old AA gentleman who has a history of polycystic kidney disease and related ESRD on HD, a hx of unspecified adrenal insufficiency on hydrocortisone since at least last summer. Patient has some chronic intra dialytic hypotension. Pt often presents with large inter dialytic weight gains which requires UF goals of 4-5L. Pt last dialyzed on Sat. Pt presented to the ER due to family concerns that pt was showing altered mental status. Pt did receive IVF and IV steroids since admission. Pt admitted to isolation due to COVID-19 positive PCR. Pt's BP readings have been labile, accurate BP checks have been an issue at the unit as well with cuff at times placed at ankle level by staff. Allergies amlodipine besylate [From Norvasc] Allergy (Verified 01/25/22 13:59) Anaphylaxis, lower leg swelling amoxicillin [From Augmentin] Allergy (Verified 01/25/22 13:59) Nausea/Vomiting/Diarrhea clavulanic acid [From Augmentin] Allergy (Verified 01/25/22 13:59) Nausea/Vomiting/Diarrhea Home Medications: Cinacalcet HCl [Sensipar*] 1 tab PO BEDTIME 09/02/13 Docusate [Colace Cap*] 1 tab PO BID 09/02/13 Omeprazole [Prilosec] 40 mg PO DAILY 09/02/13 allopurinoL [Zyloprim*] 100 mg PO BEDTIME 09/02/13 Apixaban [Eliquis *] 2.5 mg PO BID 09/26/20 Albuterol Sulfate [Proair Hfa] 2 puff IH Q6HP PRN 01/25/22 Gabapentin 300 mg PO TID 01/25/22 Hydrocortisone [Cortef] 10 mg PO BID 01/25/22 L. Acidophilus/Bifido. Longum [Probiotic Pearls Acidophilus] 1 each PO BID 01/25/22 Mesalamine [Pentasa] 4 cap PO BID 01/25/22 Metoprolol Tartrate [Lopressor] 100 mg PO BID 01/25/22 Multivitamin [One-Daily Multi-Vitamin] 1 each PO DAILY 01/25/22 Simvastatin 20 mg PO BEDTIME 01/25/22 Tramadol HCl [Ultram] 50 mg PO Q6H 01/25/22 - Past Medical/Surgical History Diabetic: No -: Diverticulitis -: HTN -: Gout -: Renal disease -: HD on T, Thur, Sat -: Asbestosis -: Obstructive sleep apnea with CPAP at night -: Adrenal insufficiency -: Cardiac catheterization -: Appendectomy -: Cholecystectomy -: Left knee arthroscopy - Family History Father History Unknown: Yes Family History: Reviewed- Non-Contributory Mother History Unknown: Yes - Social History Smoking Status: Current every day smoker Alcohol use: No CD- Drugs: No Caffeine use: Yes Place of Residence: Home Review of Systems is unable to be obtained Physical Examination Temp Pulse Resp BP Pulse Ox 97.1 F 83 18 70/58 L 100 08/02/22 04:00 08/02/22 04:00 08/02/22 04:00 08/02/22 04:00 08/02/22 04:00 General: In no apparent distress, Other (Lethargic, chronically ill appearing) HEENT: Atraumatic, Normocephalic, Mucous membr. moist/pink, Other (BIPAP mask present) Respiratory: Other (No rhonchi or wheezes appreciated, reduced BS at bases) Cardiovascular: No edema, Other (Distant heart sounds, non tachy) Gastrointestinal: Soft and benign, No tenderness Musculoskeletal: No tenderness, No warmth, Other (Lt UE AVF) Neurological: Other (Lethargic, opens eyes briefly to verbal stimuli, largely non conversive but nods briefly in response to questions and follows simple step commands) Laboratory Data (last 24 hrs) 08/01/22 13:10: PT 13.3 H, INR 1.21, APTT 32.7 08/01/22 13:10: Sodium 132 L, Potassium 4.6, BUN 22 H, Creatinine 7.75 H*, Glucose 73 L, Total Bilirubin 0.7, AST 19, ALT 28, Alkaline Phosphatase 115 08/01/22 13:10: WBC 6.10, Hgb 14.5, Hct 43.9, Plt Count 138 L Conclusions/Impression: A/P) 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 S/p IVF bolus, will plan to revise EDW, typically with larger IDWG but shows no signs of fluid overload at this time, will put in place UF limits but pt often resists that and upset at times when UF goals lowered. Diastolic CHF, chronic -Compensated, no pulm edema/effusions or peripheral edema noted Adrenal insufficiency unspecified. Prior hx of hypoglycemia -Had been put on Hydrocortisone replacement last summer. F/u levels, monitor POC glucose Acute encephalopathy, possibly multifactorial -Prior episodes, cont supportive care, monitor closely Anmol Perrin MD, TANA
[2022-08-02 08:02] LABS: Absolute Lymphocytes (CBC) 0.3 K/uL (0.7-4.9); Hematocrit 42.1 % (39.6-49.0); Lymphocytes % 6.9 % (15.3-44.8); MCV 88.9 fL (80-100); RBC Red Blood Cell Count 4.74 M/uL (4.33-5.43)
[2022-08-02 08:04] LABS: Albumin 2.6 g/dL (3.4-5.0); Bilirubin Total 0.5 mg/dL (0.2-1.0); Protein, Total 5.8 g/dL (6.4-8.2)
[2022-08-02 08:17] LABS: Potassium 5.7 mmol/L (3.5-5.1)
[2022-08-02 08:27] LABS: Magnesium 1.9 mg/dL (1.6-2.4); Thyroid Stimulating Hormone 0.313 uIU/mL (0.358-3.740)
[2022-08-02] MEDS: HYDROCORTISONE SUC 100 MG INJ IV SCH ×2 (09:39→20:39)
[2022-08-02] MEDS: MIDODRINE HCL 5 MG TABLET PO SCH ×4 (09:39→20:39)
--- NOTE | 2022-08-02 16:52 | EKG ---
Test Date: 2022-08-01 Test Time: 12:57:42 Channel Cementer Insole Machine: ANGI MEASUREMENT RESULTS: Intervals: Rate: 84 VA: QRSD: 90 QT: 358 QTc: 423 [place]: P: VA: QRS: -43 T: -21 INTERPRETIVE STATEMENTS: Atrial fibrillation Left axis deviation Abnormal ECG Compared to ECG 03/20/2021 11:35:07 Left-axis deviation now present Myocardial infarct finding no longer present Electronically Signed On 08-02-22 16:50:25 TENNIS BALL [employer]OVERER HAND by London Duron
[2022-08-03] MEDS ORDERED: ALBUMIN HUMAN 25% 100 ML IV ONE (08:45)
[2022-08-03] MEDS: HYDROCORTISONE SUC 100 MG INJ IV SCH ×2 (09:00→21:00)
[2022-08-03] MEDS: MIDODRINE HCL 5 MG TABLET PO SCH ×3 (09:18→21:13)
--- NOTE | 2022-08-03 09:54 | P.PN ---
Nephrology note: (S) Pt appears to be back to baseline, seen having finished breakfast and talking on the phone, denies any acute complaints such as CP or dyspnea (O) Vitals reviewed in the EMR General: In no apparent distress, Other (Lethargic, chronically ill appearing) HEENT: Atraumatic, Normocephalic, Mucous membr. 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 Hyperkalemia noted, will dialyze with low 2K bath. HD RN notified. Chronic hypotension, intra dialytic/other -Pt reports was taking Midodrine only prior to HD, did restart and placed on scheduled dose TID with holding parameter. S/p IVF bolus, will plan to revise EDW, typically with larger IDWG but shows no over signs of fluid overload at this time, will put in place UF limits at dialysis clinic and will see how he does today. Diastolic CHF, chronic -Compensated, no pulm edema/effusions or peripheral edema noted however O2 sats on monitor lower at times but likely as pt in bed and not taking deep breaths. Adrenal insufficiency unspecified. Prior hx of hypoglycemia -Had been put on Hydrocortisone replacement last summer, would cont, dose may need to be raised back up on discharge. Defer to IM service. Acute encephalopathy, possibly multifactorial -Prior episodes, now resolved. Anmol Perrin MD, TANA
[2022-08-03] MEDS: ALBUMIN HUMAN 25% 100 ML IV ONE ×2 (10:45→11:00)
[2022-08-03 16:48] LABS: Potassium 4.2 mmol/L (3.5-5.1)
[2022-08-04] MEDS: HYDROCORTISONE SUC 100 MG INJ IV SCH (07:39)
[2022-08-04] MEDS: MIDODRINE HCL 5 MG TABLET PO SCH (09:19)
--- NOTE | 2022-08-04 10:12 | P.PN ---
Subjective Date of Service: 08/02/22 Subjective: No new changes, No C/O voiced, Improving Review of Systems 10-point ROS is otherwise unremarkable Physical Examination - Vital Signs Temperature: 98 F Blood Pressure: 140/80 Pulse: 80 Respirations: 18 Pulse Ox (%): 95 - Physical Exam General: Alert, In no apparent distress, Oriented x3 Respiratory: Clear to auscultation bilaterally, Normal air movement Cardiovascular: Regular rate/rhythm, Normal S1 S2 Gastrointestinal: Normal bowel sounds, Soft and benign, Non-distended, No tenderness Musculoskeletal: No clubbing, No swelling, No tenderness Integumentary: No rashes Neurological: Normal speech, Normal tone, Normal affect Lymphatics: No axilla or inguinal lymphadenopathy - Studies Medications List Reviewed: Yes Assessment & Plan - Problems (Diagnosis) (1) Adrenal insufficiency Current Visit: Yes Status: Acute (2) COVID-19 Current Visit: Yes Status: Acute (3) COVID-19 vaccine series completed Current Visit: Yes Status: Acute (4) Adrenal crisis syndrome Current Visit: Yes Status: Acute (5) Altered mental status Current Visit: No Status: Acute Qualifiers: Altered mental status type: unspecified Qualified Code(s): R41.82 - Altered mental status, unspecified (6) COVID-19 virus infection Current Visit: No Status: Acute (7) Diverticulosis Onset Date: 12/22/15 Current Visit: No Status: Acute (8) Hypotension Current Visit: No Status: Acute Qualifiers: Hypotension type: idiopathic hypotension Qualified Code(s): I95.0 - Idiopathic hypotension (9) ESRD on hemodialysis Onset Date: 12/22/15 Current Visit: No Status: Chronic (10) ZEV (obstructive sleep apnea) Current Visit: Yes Status: Acute - Plan Plan: 1. IV hydrocortisone-change to oral cortisone 20 mg twice a day 2. Check renin, aldosterone levels; pending 3. Continue with current POC 4. Continue monitoring his hemodynamics very closely; continue with telemetry 5. Hemodialysis per nephrology-Dr. Franklin 6. CPAP at night 7. GI and DVT prophylaxis Discharge Plan: Home Plan to discharge in: Greater than 2 days - Advance Directives Does patient have a Living Will: Yes Does patient have a Durable POA for Healthcare: No - Code Status/Comfort Care Code Status: Full Code Critical Care: No Time Spent Managing PTS Care (In Minutes): 35
--- NOTE | 2022-08-04 10:14 | P.PN ---
Date of Service: 08/03/22 Subjective Clinical symptoms continue to improve. Patient denies any new complaints. Review of Systems 10-point ROS is otherwise unremarkable Physical Examination - Vital Signs reviewed - Physical Exam General: Alert, In no apparent distress, Oriented x3 Respiratory: Clear to auscultation bilaterally, Normal air movement Cardiovascular: Regular rate/rhythm, Normal S1 S2 Gastrointestinal: Normal bowel sounds, Soft and benign, Non-distended, No tenderness Musculoskeletal: No clubbing, No swelling, No tenderness Neurological: No focal deficits Assessment & Plan - Problems (Diagnosis) (1) Adrenal insufficiency Current Visit: Yes Status: Acute (2) COVID-19 Current Visit: Yes Status: Acute (3) COVID-19 vaccine series completed Current Visit: Yes Status: Acute (4) Adrenal crisis syndrome Current Visit: Yes Status: Acute (5) Altered mental status Current Visit: No Status: Acute Qualifiers: Altered mental status type: unspecified Qualified Code(s): R41.82 - Altered mental status, unspecified (6) COVID-19 virus infection Current Visit: No Status: Acute (7) Diverticulosis Onset Date: 12/22/15 Current Visit: No Status: Acute (8) Hypotension Current Visit: No Status: Acute Qualifiers: Hypotension type: idiopathic hypotension Qualified Code(s): I95.0 - Idiopathic hypotension (9) ESRD on hemodialysis Onset Date: 12/22/15 Current Visit: No Status: Chronic (10) ZEV (obstructive sleep apnea) Current Visit: Yes Status: Acute - Plan Plan of care as mentioned below: 1. IV hydrocortisone-change to oral cortisone 20 mg twice a day; added midodrine 3 times daily 2. Check renin, aldosterone levels; pending 3. Continue with current POC 4. Continue monitoring his hemodynamics very closely; continue with telemetry 5. Hemodialysis per nephrology-Dr. Franklin 6. CPAP at night 7. GI and DVT prophylaxis
--- NOTE | 2022-08-04 10:21 | P.DS ---
Discharge Date: 08/04/22 Reason for Admission: Hypotension; adrenal insufficiency; COVID-19 - Problems (1) Adrenal insufficiency Current Visit: Yes Status: Acute (2) COVID-19 Current Visit: Yes Status: Acute (3) COVID-19 vaccine series completed Current Visit: Yes Status: Acute (4) Adrenal crisis syndrome Current Visit: Yes Status: Acute (5) Altered mental status Current Visit: No Status: Acute Qualifiers: Altered mental status type: unspecified Qualified Code(s): R41.82 - Altered mental status, unspecified (6) COVID-19 virus infection Current Visit: No Status: Acute (7) Diverticulosis Onset Date: 12/22/15 Current Visit: No Status: Acute (8) Hypotension Current Visit: No Status: Acute Qualifiers: Hypotension type: idiopathic hypotension Qualified Code(s): I95.0 - Idiopathic hypotension (9) ESRD on hemodialysis Onset Date: 12/22/15 Current Visit: No Status: Chronic (10) ZEV (obstructive sleep apnea) Current Visit: Yes Status: Acute Brief History of Present Illness: Patient is a 67-year-old gentleman who has a history of polycystic kidney disease, adrenal insufficiency, and has been end-stage renal disease for a while who presents to the emergency room with decreased responsiveness. Patient's primary care physician is Dr. Snyder and patient's silo operator is Dr. Franklin. I spoke to the daughter who gave me a lot of information regarding his medical care. She states that over the last 2 dialysis sessions on Saturdays his blood pressure has been dropping. They have to keep him at dialysis for a little bit longer than normal just to let his blood pressure come up. Yesterday they noted that patient was hypotensive once again with diastolic in the 30s. She thinks his systolic was in the 80s. They monitored him and once his blood pressure came back up he was discharged home. Patient's noted that he was not responding appropriately today so she called EMS and they brought him into the emergency room. In the emergency room he was slightly hypotensive and he was given a bolus and his blood pressure has improved. He is more awake and alert and is able to talk to me. The states that he was not interacting whatsoever this morning. We will go ahead and started him on hydrocortisone. He was also incidentally positive for COVID-19. No pulmonary issues at this time. He is kind is to initial vaccines and is also received a booster. He goes to [facility] pharmacy. Patient will be admitted for further treatment. We will probably keep him here till dialysis on Tuesday and see how he responds. Anticipate discharge after his dialysis session on Tuesday if he clinically is doing well. Hospital Course: Patient's clinical symptoms continue to improve. Patient was started on cortisone 20 mg twice a day. Patient was also given midodrine 3 times daily. He is improved and neurologic status is much better. No signs of infection. Patient is much better and at this time stable for discharge home. Vital Signs/Physical Exam: Temp Pulse Resp BP Pulse Ox 98 F 80 18 140/80 95 08/04/22 10:11 08/04/22 10:11 08/04/22 10:11 08/04/22 10:11 08/04/22 10:11 General: Alert, In no apparent distress, Oriented x3 Laboratory Data at Discharge: WBC 4.00 K/uL (4.3-10.9) L 08/02/22 07:12 Hgb 13.6 g/dL (13.6-17.9) 08/02/22 07:12 Hct 42.1 % (39.6-49.0) 08/02/22 07:12 Plt Count 114 K/uL (152-406) L 08/02/22 07:12 PT 13.7 SECONDS (9.5-12.5) H 08/02/22 07:12 INR 1.25 08/02/22 07:12 APTT 35.7 SECONDS (24.3-36.9) 08/02/22 07:12 Sodium 139 mmol/L (136-145) D 08/03/22 16:10 Potassium 4.2 mmol/L (3.5-5.1) D 08/03/22 16:10 BUN 36 mg/dL (7-18) H 08/03/22 16:10 Creatinine 8.58 mg/dL (0.70-1.30) H* 08/03/22 16:10 Glucose 73 mg/dL (74-106) L 08/03/22 16:10 Magnesium 1.9 mg/dL (1.6-2.4) 08/02/22 07:12 Total Bilirubin 0.5 mg/dL (0.2-1.0) 08/02/22 07:12 AST 27 U/L (15-37) 08/02/22 07:12 ALT 25 U/L (16-61) 08/02/22 07:12 Alkaline Phosphatase 105 U/L (45-117) 08/02/22 07:12 Triglycerides 62 mg/dL (<150) 08/02/22 07:12 Cholesterol 174 mg/dL (<200) 08/02/22 07:12 HDL Cholesterol 46 mg/dL (40-60) 08/02/22 07:12 Cholesterol/HDL Ratio 3.78 08/02/22 07:12 Home Medications: Cinacalcet HCl [Sensipar*] 1 tab PO BEDTIME 09/02/13 Docusate [Colace Cap*] 1 tab PO BID 09/02/13 Omeprazole [Prilosec] 40 mg PO DAILY 09/02/13 allopurinoL [Zyloprim*] 100 mg PO BEDTIME 09/02/13 Apixaban [Eliquis *] 2.5 mg PO BID 09/26/20 Albuterol Sulfate [Proair Hfa] 2 puff IH Q6HP PRN 01/25/22 Gabapentin 300 mg PO TID 01/25/22 Hydrocortisone [Cortef] 10 mg PO BID 01/25/22 L. Acidophilus/Bifido. Longum [Probiotic Pearls Acidophilus] 1 each PO BID 01/25/22 Mesalamine [Pentasa] 4 cap PO BID 01/25/22 Metoprolol Tartrate [Lopressor] 100 mg PO BID 01/25/22 Multivitamin [One-Daily Multi-Vitamin] 1 each PO DAILY 01/25/22 Simvastatin 20 mg PO BEDTIME 01/25/22 Tramadol HCl [Ultram] 50 mg PO Q6H 01/25/22 Physician Discharge Instructions: -DC IV and DC home -Follow-up with PCP in 1 to 2 weeks -Follow-up with Nephrology in 1 to 2 weeks -Please call Dr. Coelho at [phone] if any questions regarding hospital stay -Please call nursing station at [phone] if any nursing or medication questions -Return to the emergency room if symptoms worsen Followup: NONE,NONE [Primary Care Provider] -
--- NOTE | 2022-08-04 10:23 | P.PN ---
Nephrology note: (S) Pt at baseline, seen sitting up in bed, alert/conversive, no acute complaints. Reviewed discharge meds in detail with pt, his , daughter (over the phone) and with Dr. Coelho (O) Vitals reviewed in the EMR General: In no apparent distress, Other (Lethargic, chronically ill appearing) HEENT: Atraumatic, Normocephalic, Mucous membr. 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 Hyperkalemia resolved s/p HD with low K bath. Cont HD per OP schedule. Chronic hypotension, intra dialytic/other -Pt reports was taking Midodrine only prior to HD, did restart and placed on scheduled dose TID with holding parameter here. Will plan to revise EDW, typically with larger IDWG but shows no over signs of fluid overload at this time, will put in place UF limits at dialysis clinic Diastolic CHF, chronic. Hx of Afib unspecified -Compensated, no pulm edema/effusions or peripheral edema noted. Recommend at least temp cutting back on beta saige/Metoprolol dose to 1/2 tab or 50 mg BID Adrenal insufficiency unspecified. Prior hx of hypoglycemia -Had been put on Hydrocortisone replacement last summer, would cont, will send out on Hydrocortisone 20 mg BID and have him f/u with Endo that he has been seeing Acute encephalopathy, possibly multifactorial -Prior episodes, now resolved. Gabapentin dosing recommended due to be once a day given his low CrCl state Anmol Perrin MD, TANA
[2022-08-04 10:58] VITALS: O2SAT 95
[2022-08-04 13:20] VITALS: BP 116/58; TEMP 98.1
== END 2022-08-04 13:16 | disposition home or self-care (01) | DRG 177 ==
LOC: ER 12:51 → UNDOADMOB 17:17 → ERHOLD 17:17 → 4TH 20:20
PROVIDERS: ADMIT Hospitalist; ATTEND Hospitalist
PROC: 5A09457 Assistance with Respiratory Ventilation, 24-96 Consecutive Hours, Continuous Positive Airway Pressure (ICD-10-PCS; principal; 2022-08-01)
PROC: 5A1D70Z Performance of Urinary Filtration, Intermittent, Less than 6 Hours Per Day (ICD-10-PCS; 2022-08-03)
DX: U07.1 COVID-19 (principal); N18.6 End stage renal disease; I13.2 Hypertensive heart and chronic kidney disease with heart failure and with stage 5 chronic kidney disease, or end stage renal disease; E27.40 Unspecified adrenocortical insufficiency; E27.2 Addisonian crisis; Q61.2 Polycystic kidney, adult type; G93.40 Encephalopathy, unspecified; I50.32 Chronic diastolic (congestive) heart failure; E87.5 Hyperkalemia; I95.0 Idiopathic hypotension; M10.9 Gout, unspecified; G47.33 Obstructive sleep apnea (adult) (pediatric); K57.90 Diverticulosis of intestine, part unspecified, without perforation or abscess without bleeding; Z88.1 Allergy status to other antibiotic agents; Z88.8 Allergy status to other drugs, medicaments and biological substances; Z99.2 Dependence on renal dialysis; Z90.49 Acquired absence of other specified parts of digestive tract; Z79.01 Long term (current) use of anticoagulants; Z79.899 Other long term (current) drug therapy; Z87.891 Personal history of nicotine dependence; Z20.822 Contact with and (suspected) exposure to COVID-19
CPT/HCPCS: 0240U; 36415; 71045; 74176; 80048; 80053; 80061; 82088; 82533; 82607; 82747; 82947; 83036; 83540; 83605; 83735; 83880; 84244; 84439; 84443; 85025; 85610; 85730; 87040; 90935; 93005; 94660; 94760; 96361; 96365; 97165; 99285; J1644; J1720; J7040; J7050; P9047

== ENCOUNTER 2022-11-06 18:59 | Emergency (ER) | payer OTHER, MEDICARE ==
[2022-11-06] MEDS ORDERED: NOREPINEPHRINE BITARTRATE/D5W 4 MG/250 ML BAG IV ONE ×2 (19:18→23:44)
[2022-11-06] MEDS ORDERED: NA CHLORIDE 0.9% 500 ML ONE (19:22)
[2022-11-06 20:24] LABS: Protime INR 1.23
[2022-11-06 20:27] LABS: Absolute Lymphocytes (CBC) 0.8 K/uL (0.7-4.9); Hematocrit 48.8 % (39.6-49.0); Lymphocytes % 6.5 % (15.3-44.8); MCV 88.2 fL (80-100); MPV 8.9 fL (7.6-11.3); RBC Red Blood Cell Count 5.53 M/uL (4.33-5.43)
[2022-11-06] MEDS ORDERED: ONDANSETRON 4 MG/2 ML VIAL ONE (20:33)
--- NOTE | 2022-11-06 20:39 | RAD REPORT ---
EXAM DESCRIPTION: CHESTERChest Single View11/06/2022 8:11 pm CLINICAL HISTORY: CHEST PAIN COMPARISON: Chest Single View dated 10/28/2022; Chest Single View dated 08/01/2022; Chest Single View dated 03/28/2021; Chest Single View dated 03/26/2021 TECHNIQUE: Portable AP view of the chest. FINDINGS: Left IJ CVC loops in the neck, with its tip projecting along the distal left internal jugu lar vein. Decreased inspiratory effort limits evaluation. The lungs are clear. No pneumothorax or eff usion. The cardiomediastinal contours are unremarkable. IMPRESSION: Left IJ CVC loops along the internal jugular vein, consider repositioning the line. No acute cardiopulmonary process.
[2022-11-06 20:45] LABS: Albumin 3.4 g/dL (3.4-5.0); Bilirubin Direct 0.2 mg/dL (0-0.2); Bilirubin Total 0.5 mg/dL (0.2-1.0); Magnesium 1.9 mg/dL (1.6-2.4); Potassium 4.1 mEq/L (3.5-5.1); Protein, Total 7.4 g/dL (6.4-8.2); Troponin High Sensitivity 18.4 pg/mL (<58.9)
[2022-11-06] MEDS ORDERED: CLINDAMYCIN 900MG/D5W 900 MG/50 ML IVPB IV ONE (21:13)
[2022-11-06] MEDS ORDERED: Levofloxacin 750mg IV 750 MG/150 ML BAG IV ONE (21:13)
[2022-11-06] MEDS ORDERED: HYDROCORTISONE SUC 100 MG INJ ONE (21:13)
[2022-11-06 21:19] LABS: Arterial Blood Carboxyhemoglob 1.1 % (0-1.5); Blood Gas Oxyhemoglobin 94.5 % (94-97); Blood O2 Saturation 96.9 % (92-98.5)
--- NOTE | 2022-11-06 21:51 | ER ---
Nurse's Notes [facility] Name: Adriel Raya Age: 67 yrs Sex: Male : 1955 Arrival Date: 11/06/2022 Time: 18:59 Bed 3 Private MD: Diagnosis: Hypovolemic shock;End-stage renal disease on hemodialysis. Presentation: 11/06 19:05 Chief complaint: EMS states: were called earlier for a lift assist due to weakness post aa5 dialysis today, refused transfer at that time, later family called for AMS and increased weakness. EMS reports pt was found confused and BP 72/30 upon arrival, increased BP with Levophed administration at 5 mcg/min. BP currently 108/61. 19:05 Coronavirus screen: At this time, the client does not indicate any symptoms associated aa5 with coronavirus-19. Ebola Screen: Patient denies travel to an Ebola-affected area in the 21 days before illness onset. Onset of symptoms was November 06, 2022. 19:05 Acuity: SAM 2 aa5 19:05 Method Of Arrival: EMS: [facility] aa5 19:05 Care prior to arrival: IV initiated. 20 GA, in the right arm. aa5 19:10 Risk Assessment: Do you want to hurt yourself or someone else? Patient reports no jb4 desire to harm self or others. Historical: - Allergies: 19:05 Augmentin; aa5 19:05 Norvasc; aa5 - PMHx: 19:05 Dialysis; Diverticulitis; Hypertension; aa5 - PSHx: 19:05 Left arm dialysis fistula; aa5 - Social history:: Patient/guardian denies using alcohol, street drugs, IV drugs, caffeine, over the counter diet medications, tobacco products. - Family history:: not pertinent. Screenin:10 [facility] ED Fall Risk Assessment (Adult) History of falling in the last 3 months, jb4 including since admission No falls in past 3 months (0 pts) Confusion or Disorientation No (0 pts) Score/Fall Risk Level 0 - 2 = Low Risk Oriented to surroundings, Maintained a safe environment. Abuse screen: Denies threats or abuse. Nutritional screening: No deficits noted. Tuberculosis screening: No symptoms or risk factors identified. Assessment: 19:05 Reassessment: Dr. Potepalov at bedside . aa5 19:10 General: Appears in no apparent distress. uncomfortable, ill, obese, Behavior is jb4 cooperative, drowsy. Pain: Denies pain. Neuro: Level of Consciousness is awake, lethargic, Oriented to person, place, time, situation. Cardiovascular: Patient's skin is warm and dry. Respiratory: Airway is patent Respiratory effort is even, unlabored, Respiratory pattern is regular, symmetrical. GI: No signs and/or symptoms were reported involving the gastrointestinal system. : No signs and/or symptoms were reported regarding the genitourinary system. EENT: No signs and/or symptoms were reported regarding the EENT system. Derm: Skin is intact, Skin is dry, Skin is normal, Skin temperature is warm. Musculoskeletal: Circulation, motion, and sensation intact. Range of motion: intact in all extremities. 20:00 Reassessment: Patient appears in no apparent distress at this time. Patient and/or jb4 family updated on plan of care and expected duration. Pain level reassessed. Patient is alert, oriented x 3, equal unlabored respirations, skin warm/dry/pink. EMS RAC IV noted to be infiltrated after second attempt at Central line placement, infusion stopped, Levophed moved to Central line in LIJ. Provider notifed, warm compress applied to site. 21:39 Reassessment: Patient appears in no apparent distress at this time. Patient and/or jb4 family updated on plan of care and expected duration. Pain level reassessed. Patient is alert, oriented x 3, equal unlabored respirations, skin warm/dry/pink. 22:30 Reassessment: Patient appears in no apparent distress at this time. Patient and/or jb4 family updated on plan of care and expected duration. Pain level reassessed. Patient is alert, oriented x 3, equal unlabored respirations, skin warm/dry/pink. 23:14 Reassessment: Patient appears in no apparent distress at this time. Patient and/or jb4 family updated on plan of care and expected duration. Pain level reassessed. Patient is alert, oriented x 3, equal unlabored respirations, skin warm/dry/pink. No bruising or discoloration noted at prior IV infiltration site. 23:55 Reassessment: Patient appears in no apparent distress at this time. Pt is resting in jb4 bed with eyes closed, respirations are even and unlabored with no s/s of pain or distress noted. 11/07 00:25 Reassessment: Patient appears in no apparent distress at this time. No changes from jb4 previously documented assessment. Patient and/or family updated on plan of care and expected duration. Pain level reassessed. Report given to [facility]. Vital Signs: 11/06 19:05 BP 108 / 61; Pulse 103; Resp 15 S; Temp 97.5(TE); Pulse Ox 93% on 4 lpm NC; aa5 19:10 BP 72 / 55; Pulse 95; Resp 19; Pulse Ox 93% on 5 lpm NC; jb4 20:25 BP 194 / 67; Pulse 79; Resp 20; jb4 20:30 BP 195 / 69; Pulse 82; Resp 17; jb4 20:36 Weight 144.24 kg; jb4 20:40 BP 108 / 86; Pulse 91; Resp 16; jb4 20:45 BP 85 / 46; Pulse 92; Resp 17; jb4 20:50 BP 85 / 47; Pulse 86; Resp 17; Pulse Ox 97% on 5 lpm NC; jb4 21:30 BP 112 / 58; Pulse 105; Resp 16; Pulse Ox 100% on 5 lpm NC; jb4 22:25 BP 111 / 58; Pulse 88; Resp 17; Pulse Ox 100% on 5 lpm NC; jb4 22:50 BP 97 / 62; Pulse 86; Resp 17; Pulse Ox 95% on R/A; jb4 23:00 BP 109 / 43; Pulse 82; Resp 14; Pulse Ox 97% on 5 lpm NC; jb4 23:10 BP 112 / 78; Pulse 80; Resp 17; Pulse Ox 99% on 5 lpm NC; jb4 23:50 BP 119 / 59; Pulse 86; Resp 14; Pulse Ox 98% on 5 lpm NC; jb4 11/07 00:15 BP 119 / 70; Pulse 82; Resp 14; Pulse Ox 98% on 5 lpm NC; jb4 11/06 20:25 Levophed to 15mcg/min. jb4 20:30 Levophed paused. jb4 20:40 Levophed currently paused. jb4 20:45 Levophed started back at 5mcg/min jb4 20:50 Levophed increased to 10mcg/min jb4 23:00 Levophed increased to 15mcg/min jb4 ED Course: 19:05 Patient arrived in ED. iw 19:05 Arm band placed on Patient placed in an exam room, on a stretcher. aa5 19:06 Srinivasan Duffy MD is Attending Physician. sp4 19:10 Patient has correct armband on for positive identification. Bed in low position. Call jb4 light in reach. Side rails up X 1. Client placed on continuous cardiac and pulse oximetry monitoring. NIBP monitoring applied. nurse monitoring on. 19:12 Triage completed. aa5 20:03 Basic Metabolic Panel Sent. iw 20:03 CBC with Diff Sent. iw 20:03 LFT's Sent. iw 20:03 Magnesium Sent. iw 20:03 NT PRO-BNP Sent. iw 20:03 PT-INR Sent. iw 20:03 Troponin HS Sent. iw 20:03 Lactate w/ 2H reflex if indic. Sent. iw 20:10 Assisted provider with central line placement. Set up central line tray. Triple lumen jb4 line placed in left internal jugular. Line placed by Srinivasan Duffy MD Placement verified by CXR, blood return, Dressed with Tegaderm, Blood was collected. Patient tolerated well. 20:13 XRAY Chest (1 view) In Process Unspecified. EDMS 20:21 IV discontinued, intact, bleeding controlled, No redness/swelling at site. Pressure jb4 dressing applied, IV site infiltrated, provider notifed, Warm compress applied, Levophed moved to central line. 20:38 Adriel Wan, RN is Primary Nurse. jb4 21:57 Initiated transfer to BS, spoke with Brenda Baldwin. 21:59 CT Head Brain wo Cont In Process Unspecified. EDMS 22:43 Pt accepted for transfer by Dr. Mcconnell \T\ [id number] per Brenda Baldwin. wm 23:22 COVID swab sent to lab. wm 23:22 COVID-19 SARS RT PCR Sent. wm Administered Medications: 19:15 Drug: Norepinephrine IV 30 mcg/min {Note: Started at 15mcg/min per providers jb4 instruction..} Route: IV; Rate: calculated rate; Site: right antecubital; 19:20 Drug: NS 0.9% IV 500 ml Route: IV; Rate: bolus; Site: right antecubital; jb4 20:06 Not Given (Duplicate Order): NS 0.9% IV 500 ml IV at bolus once iw 20:06 Not Given (Duplicate Order): Norepinephrine IV 15 mcg/min IV at calculated rate See iw Administration Instructions; (Standard concentration 4 mg / 250 mL D5W); Recommended max rate 3 mcg/kg/min; Titrate 0.05 mcg/kg/min as often as every 5 minutes to achieve goal (see titration policy); Goal parameter MAP greater than 65 mmHg. 20:33 Drug: Ondansetron IVP 4 mg Route: IVP; Site: left jugular; jb4 21:19 Drug: LevaQUIN IVPB 750 mg Route: IVPB; Site: left jugular; jb4 21:19 Drug: Clindamycin IVPB 900 mg Route: IVPB; Infused Over: 30 mins; Site: left jugular; jb4 21:19 Drug: Solu-CORTEF IVP 100 mg Route: IVP; Site: left jugular; jb4 21:33 Not Given (Physician Discretion): NS 0.9% IV 500 ml IV at bolus once jb4 Outcome: 21:51 ER care complete, transfer ordered by . sp4 11/07 00:27 Transferred by ground EMS to [facility], Transfer form completed. jb4 X-rays sent w/ patient. Condition: stable Discharge instructions given to patient, family, Instructed on the need for transfer, Demonstrated understanding of instructions. 00:28 Patient left the ED. jb4 Signatures: Dispatcher [employer] EDMS Eden Villavicencio RN RN Mago Laguna RN RN aa5 Adriel Wan RN RN jb4 Ceci Bazan Sergey, MD MD sp4 Corrections: (The following items were deleted from the chart) 11/06 23:17 20:00 Reassessment: Patient appears in no apparent distress at this time. Patient jb4 and/or family updated on plan of care and expected duration. Pain level reassessed. Patient is alert, oriented x 3, equal unlabored respirations, skin warm/dry/pink. EMS RAC IV noted to be infiltrated after second attempt at Central line placement, infusion stopped, Levophed moved to Central line in LEJ. Provider notifed, warm compress applied to site. jb4
--- NOTE | 2022-11-06 21:51 | EDPHYS ---
Physician Documentation [facility] Name: Adriel Raya Age: 67 yrs Sex: Male : 1955 Arrival Date: 11/06/2022 Time: 18:59 Bed 3 Private MD: ED Physician Srinivasan Duffy HPI: 11/06 19:07 This 67 yrs old Black Male presents to ER via Unassigned with complaints of hypotension sp4 , weakness . 20:31 Very pleasant 67-year-old male with history of end-stage renal disease on hemodialysis sp4 who was dialyzed this morning, presents with EMS with hypotension and generalized weakness. EMS reports that patient's blood pressure dropped in dialysis and he was not fully dialyzed this morning. Patient himself reported generalized weakness and feeling unwell denied chest pain or shortness of breath. . 20:41 . . sp4 20:44 Patient has history of polycystic kidney disease, adrenal insufficiency, end-stage sp4 renal disease on hemodialysis every Tuesday. Patient was last admitted here for hypotension on 10/29/2022. Patient's medications include Cinacalcet, docusate, omeprazole, allopurinol, Eliquis, albuterol, mesalamine, multivitamins, simvastatin, tramadol, gabapentin, hydrocortisone 20 mg p.o. twice daily, also metoprolol 50 mg p.o. twice daily and midodrine 5 mg p.o. 3 times daily. . Historical: - Allergies: 19:05 Augmentin; aa5 19:05 Norvasc; aa5 - PMHx: 19:05 Dialysis; Diverticulitis; Hypertension; aa5 - PSHx: 19:05 Left arm dialysis fistula; aa5 - Social history:: Patient/guardian denies using alcohol, street drugs, IV drugs, caffeine, over the counter diet medications, tobacco products. - Family history:: not pertinent. ROS: 20:31 Constitutional: Negative for fever, chills, and weight loss, positive for generalized sp4 weakness Eyes: Negative for injury, pain, redness, and discharge, ENT: Negative for injury, pain, and discharge, Neck: Negative for injury, pain, and swelling, Cardiovascular: Negative for chest pain, palpitations, and edema, Respiratory: Negative for shortness of breath, cough, wheezing, and pleuritic chest pain, Abdomen/GI: Negative for abdominal pain, nausea, vomiting, diarrhea, and constipation, Back: Negative for injury and pain, : Negative for injury, bleeding, discharge, and swelling, MS/Extremity: Negative for injury and deformity, Skin: Negative for injury, rash, and discoloration, Neuro: Negative for headache, weakness, numbness, tingling, and seizure, Psych: Negative for depression, anxiety, Allergy/Immunology: Negative for hives, rash, and allergies Endocrine: Negative for neck swelling, polydipsia, polyuria, polyphagia, and weight changes Hematologic/Lymphatic: Negative for swollen nodes, abnormal bleeding, and unusual bruising Exam: 20:31 Constitutional: This is a well developed, well nourished patient who is awake, patient sp4 appears somnolent, morbidly obese male, generalized weakness, moderate to severe physical deconditioning, left forearm dialysis fistula with palpable thrill, pale appearing, toxic appearing male hypotensive on arrival. Patient has peripheral norepinephrine infusion going in the right AC IV Head/Face: Normocephalic, atraumatic. Eyes: Pupils equal round and reactive to light, extra-ocular motions intact. Lids and lashes normal. Conjunctiva and sclera are not injected. Cornea within normal limits. Periorbital areas with no swelling, redness, or edema. ENT: Nares patent. No nasal discharge, no septal abnormalities noted. Tympanic membranes are normal and external auditory canals are clear. Oropharynx with no redness, swelling, or masses, exudates, or evidence of obstruction, uvula midline. Mucous membranes moist. Neck: Trachea midline, no thyromegaly or masses palpated, and no cervical lymphadenopathy. Supple, full range of motion without nuchal rigidity, or vertebral point tenderness. No Meningismus. Chest/axilla: Normal chest wall appearance and motion. Nontender with no deformity. No lesions are appreciated. Cardiovascular: Regular rate and rhythm with a normal S1 and S2. No gallops, murmurs, or rubs. Normal PMI, no JVD. No pulse deficits. Respiratory: Lungs have equal breath sounds bilaterally, clear to auscultation and percussion. No rales, rhonchi or wheezes noted. No increased work of breathing, no retractions or nasal flaring. Abdomen/GI: Soft, non-tender, with normal bowel sounds. No distension or tympany. No guarding or rebound. No evidence of tenderness throughout. Back: No spinal tenderness. No costovertebral tenderness. Skin: Warm, dry with normal turgor. no lesions, and no evidence of cellulitis. Pale eyes and pale mucous membranes, hypotensive on arrival MS/ Extremity: Pulses equal, no cyanosis. Neurovascular intact. Full, normal range of motion. Generalized weakness patient is nonambulatory at this time Neuro: Awake and alert, GCS 15, oriented to person, Cranial nerves II-XII grossly intact. Motor strength 5/5 in all extremities. Sensory grossly intact. Patient is somnolent on arrival and has generalized weakness, overall neurologically intact Psych: Awake, with orientation to person somnolent on arrival 20:31 ECG was reviewed by the Attending Physician. EKG time 2019, there is atrial sp4 fibrillation at the rate of [address] elevation or depression, no peaked T waves, no ventricular ectopy Vital Signs: 19:05 BP 108 / 61; Pulse 103; Resp 15 S; Temp 97.5(TE); Pulse Ox 93% on 4 lpm NC; aa5 19:10 BP 72 / 55; Pulse 95; Resp 19; Pulse Ox 93% on 5 lpm NC; jb4 20:25 BP 194 / 67; Pulse 79; Resp 20; jb4 20:30 BP 195 / 69; Pulse 82; Resp 17; jb4 20:36 Weight 144.24 kg; jb4 20:40 BP 108 / 86; Pulse 91; Resp 16; jb4 20:45 BP 85 / 46; Pulse 92; Resp 17; jb4 20:50 BP 85 / 47; Pulse 86; Resp 17; Pulse Ox 97% on 5 lpm NC; jb4 21:30 BP 112 / 58; Pulse 105; Resp 16; Pulse Ox 100% on 5 lpm NC; jb4 22:25 BP 111 / 58; Pulse 88; Resp 17; Pulse Ox 100% on 5 lpm NC; jb4 22:50 BP 97 / 62; Pulse 86; Resp 17; Pulse Ox 95% on R/A; jb4 23:00 BP 109 / 43; Pulse 82; Resp 14; Pulse Ox 97% on 5 lpm NC; jb4 23:10 BP 112 / 78; Pulse 80; Resp 17; Pulse Ox 99% on 5 lpm NC; jb4 23:50 BP 119 / 59; Pulse 86; Resp 14; Pulse Ox 98% on 5 lpm NC; jb4 11/07 00:15 BP 119 / 70; Pulse 82; Resp 14; Pulse Ox 98% on 5 lpm NC; jb4 11/06 20:25 Levophed to 15mcg/min. jb4 20:30 Levophed paused. jb4 20:40 Levophed currently paused. jb4 20:45 Levophed started back at 5mcg/min jb4 20:50 Levophed increased to 10mcg/min jb4 23:00 Levophed increased to 15mcg/min jb4 Procedures: 20:08 Central Line: the site was prepped with in sterile fashion, Hibiclens prep, a triple sp4 lumen catheter was inserted, in the left internal jugular vein, in 2 attempts. placement was verified, by CXR, by blood return, the site was dressed with Tegaderm, using sterile technique, the patient tolerated the procedure, well, Left internal jugular triple-lumen central venous catheter placed with ultrasound guidance. MDM: 19:08 Patient medically screened. sp4 20:31 Differential Diagnosis altered mental status, sepsis, flu. Data reviewed: vital signs, sp4 nurses notes, EMS record, old medical records, lab test result(s), EKG, radiologic studies, CT scan, plain films. 22:37 Consideration of Admission/Observation Patient was admitted/placed on observation. sp4 Escalation of care including admission/observation considered. ED course: CT head reveals no acute intracranial abnormality. There is an area of right subinsular focus of attenuation but it is nonspecific finding, chest x-ray is clear today lactic acid is negative, troponin is negative, patient remains on Levophed at 10 mcg/min. Patient was excepted for monitoring and ICU management at [facility]. . 11/06 19:07 Order name: Basic Metabolic Panel; Complete Time: 20:46 sp4 11/06 19:07 Order name: CBC with Diff; Complete Time: 20:46 sp4 11/06 19:07 Order name: LFT's; Complete Time: 20:46 sp4 11/06 19:07 Order name: Magnesium; Complete Time: 20:46 sp4 11/06 19:07 Order name: NT PRO-BNP; Complete Time: 20:46 11/06 19:07 Order name: PT-INR; Complete Time: 20:46 11/06 19:07 Order name: Troponin HS; Complete Time: 20:46 11/06 19:07 Order name: Lactate w/ 2H reflex if indic.; Complete Time: 20:46 11/06 19:07 Order name: ABG; Complete Time: 21:48 11/06 19:07 Order name: COVID-19 SARS RT PCR 11/06 20:06 Order name: Blood Culture Adult (2) 11/06 19:07 Order name: XRAY Chest (1 view); Complete Time: 20:46 [facility] 11/06 20:06 Order name: CT Head Brain wo Cont; Complete Time: 23:18 11/06 19:07 Order name: EKG; Complete Time: 19:08 11/06 19:07 Order name: Cardiac monitoring; Complete Time: 19:54 [facility] 11/06 19:07 Order name: EKG - Nurse/Tech; Complete Time: 20:22 11/06 19:07 Order name: IV Saline Lock; Complete Time: 19:54 11/06 19:07 Order name: Labs collected and sent; Complete Time: 20:03 11/06 19:07 Order name: O2 Per Protocol; Complete Time: 19:54 11/06 19:07 Order name: O2 Sat Monitoring; Complete Time: 19:54 4 EC:31 Rate is 74 beats/min. Rhythm is irregularly irregular, A fib. QRS interval is normal. sp4 No ST changes noted. Clinical impression: No evidence of ischemia. Interpreted by me. Administered Medications: 19:15 Drug: Norepinephrine IV 30 mcg/min {Note: Started at 15mcg/min per providers jb4 instruction..} Route: IV; Rate: calculated rate; Site: right antecubital; 19:20 Drug: NS 0.9% IV 500 ml Route: IV; Rate: bolus; Site: right antecubital; jb4 20:06 Not Given (Duplicate Order): NS 0.9% IV 500 ml IV at bolus once iw 20:06 Not Given (Duplicate Order): Norepinephrine IV 15 mcg/min IV at calculated rate See iw Administration Instructions; (Standard concentration 4 mg / 250 mL D5W); Recommended max rate 3 mcg/kg/min; Titrate 0.05 mcg/kg/min as often as every 5 minutes to achieve goal (see titration policy); Goal parameter MAP greater than 65 mmHg. 20:33 Drug: Ondansetron IVP 4 mg Route: IVP; Site: left jugular; jb4 21:19 Drug: LevaQUIN IVPB 750 mg Route: IVPB; Site: left jugular; jb4 21:19 Drug: Clindamycin IVPB 900 mg Route: IVPB; Infused Over: 30 mins; Site: left jugular; jb4 21:19 Drug: Solu-CORTEF IVP 100 mg Route: IVP; Site: left jugular; jb4 21:33 Not Given (Physician Discretion): NS 0.9% IV 500 ml IV at bolus once jb4 Disposition Summary: 11/06/22 21:51 Transfer Ordered Transfer Location: [facility] sp4 Reason: Higher level of care sp4 Condition: Serious sp4 Problem: new sp4 Symptoms: have improved sp4 Accepting Physician: [facility] attending (11/07/22 00:28) jb4 Diagnosis - Hypovolemic shock sp4 - End-stage renal disease on hemodialysis. sp4 Forms: - Medication Reconciliation Form sp4 - SBAR form sp4 Critical care time excluding procedures: 22:37 Critical care time: Bedside Care: 36 minutes, Consultation: 12 minutes, Family sp4 Intervention: 10 minutes. Total time: 58 minutes Signatures: Dispatcher [employer] Eden Cruz RN RN iw Calderon, Audri, RN RN aa5 Adriel Wan RN RN jb4 Srinivasan Duffy MD MD sp4 Corrections: (The following items were deleted from the chart) 11/07 00:28 11/06 21:[address] [facility] attending sp4 jb4
--- NOTE | 2022-11-06 22:29 | RAD REPORT ---
EXAM DESCRIPTION: CT - Head Brain Wo Cont - 11/06/2022 9:57 pm CLINICAL HISTORY: DIZZINESS COMPARISON: Ct Stroke Brain Wo Cont dated 12/16/2015; HEAD BRAIN W O CONTRAST dated 05/08/2007; Brain Wo Cont dated 03/20/2021 TECHNIQUE: Noncontrast head CT images ad were obtained without IV contrast. Multiplanar reformats we re generated and reviewed. All CT scans are performed using dose optimization technique as appropriate and may include automated exposure control or mA/KV adjustment according to patient size. FINDINGS: Motion artifact particularly at the skullbase limits evaluation. No intracranial hemorrhage, mass, or edema. Midline structures are unremarkable. Stable ventricular caliber, with mild diffuse parenchymal volume loss. Right subinsular triangular focus of hypoattenuation, progressive since the prior exam. Merritt-white ma tter differentiation is otherwise preserved, without evidence of acute infarct. No abnormal extra-axi al fluid collections. Mastoid air cells and visualized portions of the paranasal sinuses are clear. No acute bony findings. IMPRESSION: Right subinsular triangular focus of hypoattenuation, progressive since the prior exam. This is nonspecific but may relate to a small infarct of indeterminate age, although a prominent igovanni vascular space in show a similar appearance.
[2022-11-07 00:53] VITALS: TEMP 97.5
[2022-11-07 01:07] VITALS: O2SAT 98
[2022-11-07 01:09] VITALS: BP 119/70
--- NOTE | 2022-11-08 12:41 | EKG ---
Test Date: 2022-11-06 Test Time: 20:19:52 Manager Of Compensation: MEASUREMENT RESULTS: Intervals: Rate: 74 DE: QRSD: 98 QT: 364 QTc: 404 Karval: P: DE: QRS: -7 T: 56 INTERPRETIVE STATEMENTS: Atrial fibrillation Septal infarct, age undetermined Abnormal ECG Compared to ECG 10/29/2022 01:56:49 No significant changes Electronically Signed On 11-08-22 12:37:24 CDT by Nico Pizarro
== END 2022-11-07 00:28 | disposition short-term general hospital (02) ==
LOC: ER 18:59
PROC: 05HN33Z Insertion of Infusion Device into Left Internal Jugular Vein, Percutaneous Approach (ICD-10-PCS; principal; 2022-11-07)
PROC: B544ZZA Ultrasonography of Left Jugular Veins, Guidance (ICD-10-PCS; 2022-11-07)
DX: R57.1 Hypovolemic shock (principal); I12.0 Hypertensive chronic kidney disease with stage 5 chronic kidney disease or end stage renal disease; N18.6 End stage renal disease; Z99.2 Dependence on renal dialysis; Z88.1 Allergy status to other antibiotic agents; Z88.8 Allergy status to other drugs, medicaments and biological substances; Z20.822 Contact with and (suspected) exposure to COVID-19
CPT/HCPCS: 93005; 87040 ×2; 85025; 80048; 36415; 83735; 85610; 80076; 83605; 84484; 83880; 70450; 71045; 82805; 36556; U0003; J1720; J2405; J7040; 99291; 99292

== ENCOUNTER 2023-02-11 09:25 | Emergency (ER) | payer OTHER, MEDICARE ==
[2023-02-11] MEDS ORDERED: NA CHLORIDE 0.9% 1,000 ML ONE ×2 (10:00→10:54)
--- NOTE | 2023-02-11 10:10 | RAD REPORT ---
EXAM DESCRIPTION: CT - Abdomen Pelvis Wo Contrast - 02/11/2023 9:59 am CLINICAL HISTORY: Abdominal pain. ABD PAIN COMPARISON: Abdomen Pelvis Wo Contrast dated 08/01/2022 TECHNIQUE: CT imaging of the abdomen and pelvis was performed without contrast. Solid organ, bowel a nd vascular assessment is limited due to lack of IV and oral contrast. All CT scans are performed using dose optimization technique as appropriate and may include automated exposure control or mA/KV adjustment according to patient size. FINDINGS: The lower lung hughes are clear.Cholecystectomy clips. The liver, spleen, pancreas, adrenal glands are within normal limits for a limited non-contrast exami nation.Polycystic kidneys bilaterally. No bowel obstruction, free air, free fluid or abscess. Appendectomy. The mild lower lumbar degenerative changes with disc bulging. IMPRESSION: No acute intra-abdominal or pelvic findings. Bilateral polycystic kidneys. A limited non-contrast examination was performed as detailed.
[2023-02-11] MEDS ORDERED: DIGOXIN 0.25 MG/ML AMP ONE (10:12)
[2023-02-11 10:46] LABS: Hematocrit 53.8 % (39.6-49.0); MCV 86.5 fL (80-100); MPV 9.2 fL (7.6-11.3); RBC Red Blood Cell Count 6.22 M/uL (4.33-5.43)
[2023-02-11] MEDS ORDERED: AMIODARONE HCL 150 MG/3 ML INJ IV ONE (11:53)
[2023-02-11] MEDS ORDERED: AMIODARONE IN DEXTROSE,ISO-OSM 360 MG/200 ML BAG IV ONE (11:54)
[2023-02-11 12:03] LABS: Albumin 2.5 g/dL (3.4-5.0); Bilirubin Total 0.8 mg/dL (0.2-1.0); Protein, Total 6.8 g/dL (6.4-8.2); Troponin High Sensitivity 1403.9 pg/mL (<58.9)
[2023-02-11 12:20] LABS: Potassium 6.4 mEq/L (3.5-5.1)
[2023-02-11] MEDS ORDERED: SOD POLYSTYREN SUL 15 GM/60 ML UCUP ONE (12:43)
[2023-02-11] MEDS ORDERED: D10W 250 ML IV ONE (12:44)
--- NOTE | 2023-02-11 12:49 | RAD REPORT ---
EXAM DESCRIPTION: Cristhian Single View02/11/2023 12:30 pm CLINICAL HISTORY: Sepsis the COMPARISON: 2013. FINDINGS: Chronic elevation left diaphragm The lungs appear clear of acute infiltrate. The heart is normal size IMPRESSION: No acute abnormalities displayed
[2023-02-11] MEDS ORDERED: INSULIN -REGULAR HUMAN 50 UNIT/0.5 ML ML ONE (12:54)
[2023-02-11] MEDS ORDERED: VANCOMYCIN 1 GM/VIAL ONE (13:25)
[2023-02-11] MEDS ORDERED: CEFEPIME 2 GM VIAL ONE (13:25)
[2023-02-11] MEDS ORDERED: NA CHLORIDE 0.9% 100 ML ONE (13:26)
[2023-02-11] MEDS ORDERED: NA CHLORIDE 0.9% 250 ML ONE ×2 (13:26→17:01)
[2023-02-11 13:28] LABS: Protime INR 1.32
[2023-02-11] MEDS ORDERED: SODIUM BICARB 50 MEQ/50ML VIAL ONE (15:21)
[2023-02-11] MEDS ORDERED: NA CHLORIDE 0.9% 500 ML ONE ×2 (15:33→16:18)
--- NOTE | 2023-02-11 15:36 | ER ---
Nurse's Notes [facility] Name: Adriel Raya Age: 67 yrs Sex: Male : 1955 Arrival Date: 02/11/2023 Time: 09:25 Bed 6 Private MD: Diagnosis: Hematochezia;End-stage renal disease;Hyperkalemia;Hypotension;Sepsis;Atrial fibrillation with rapid ventricular rate Presentation: 02/11 10:30 Chief complaint: Patient states: PT STATES WEAKNESS AND BLOODY STOOLS. Coronavirus dd1 screen: Vaccine status: Patient reports receiving the 2nd dose of the covid vaccine. Patient reports receiving the 1st dose of the Covid vaccine. Client denies travel out of the [place] in the last 14 days. At this time, the client does not indicate any symptoms associated with coronavirus-19. Ebola Screen: No symptoms or risks identified at this time. Initial Sepsis Screen: Does the patient meet any 2 criteria? Systolic BP < 90 mmHg. HR > 90 bpm. Yes Does the patient have a suspected source of infection? No. Patient's initial sepsis screen is negative. Risk Assessment: Do you want to hurt yourself or someone else? Patient reports no desire to harm self or others. Onset of symptoms was February 11, 2023. 10:30 Method Of Arrival: EMS dd1 10:30 Acuity: SAM 2 dd1 Triage Assessment: 10:12 General: Appears in no apparent distress. uncomfortable, obese, malnourished, Behavior dd1 is calm, cooperative, drowsy, quiet. Historical: - Allergies: 10:12 Augmentin; dd1 10:12 Norvasc; dd1 - Home Meds: 10:47 simvastatin 20 mg Oral tablet 1 tab every day at bedtime [Active]; allopurinol 100 mg dd1 Oral tablet once [Active]; Eliquis 2.5 mg oral tablet 2 times per day [Active]; hydrocortisone 10 mg Oral tablet 2 times per day [Active]; fludrocortisone 0.1 mg oral tablet once [Active]; omeprazole 40 mg Oral capsule,delayed release (e.c.) once [Active]; Pentasa 500 mg Oral capsule, extended release 2 times per day [Active]; Proair Digihaler 90 mcg/actuation inhalation Aerosol Powder, Breath Activ.with Sensor every 6 hours [Active]; gabapentin 300 mg oral capsule once [Active]; famotidine 20 mg Oral tablet once [Active]; tramadol 50 mg Oral tablet every 6 hours [Active]; midodrine 5 mg oral tablet 3 times per day [Active]; - PMHx: 10:12 Dialysis; Diverticulitis; Hypertension; dd1 - PSHx: 10:12 Left arm dialysis fistula; dd1 13:46 Appendectomy; dd1 - Immunization history:: Adult Immunizations up to date. - Social history:: Smoking status: Patient denies any tobacco usage or history of. - Family history:: not pertinent. Screenin:19 [facility] ED Fall Risk Assessment (Adult) Impaired Gait Yes (1 pt). Abuse screen: Denies dd1 threats or abuse. Denies injuries from another. Tuberculosis screening: No symptoms or risk factors identified. 14:29 Nutritional screening: On renal diet. dd1 Assessment: 09:54 Pain: Denies pain. GI: Abdomen is distended, Bowel sounds present X 4 quads. Abd is dd1 soft and non tender X 4 quads. Reports rectal bleeding, Patient currently denies constipation, nausea, Parent/caregiver reports the patient having diarrhea, PT STATES HAD DIALYSIS YESTERDAY, 5L OFF. STATES UNABLE TO EAT OR DRINK SINCE YESTERDAY MORNING. 13:40 Reassessment: JUAN DAVID CHANO - [phone] (DAUGHTER) / MILE CHANO - [phone] dd1 (). 15:35 Reassessment: TRANSFER INITIATED. bp 16:05 Reassessment: REPORT TO [facility] FOR TRANSFER. bp 17:05 Reassessment: PT VERBALLY CONSENTED FOR 2 UNITS PRBC EMERGENT UNCROSSMATCHED. bp 18:03 Reassessment: PT RANDOLPH WITH EMS. bp Vital Signs: 09:41 Weight 143.3 kg; ko1 09:58 BP 95 / 67; Pulse 150; Resp 19; Pulse Ox 94% ; dd1 10:12 Temp 98.9; Pain 8/10; dd1 10:30 BP 89 / 71; Pulse 136; Resp 20; Pulse Ox 95% ; Pain 8/10; dd1 11:15 BP 94 / 65; Pulse 145; Resp 20; dd1 12:04 BP 101 / 72; Pulse 122; Resp 22; Pulse Ox 95% ; Pain 7/10; dd1 13:06 BP 87 / 60; Pulse 112; Resp 20; Pain 8/10; dd1 14:06 BP 77 / 58; Pulse 111; Resp 19; Temp 98.5; Pulse Ox 95% 1 lpm ; Pain 0/10; dd1 14:22 BP 100 / 86; dd1 15:22 BP 118 / 93; Pulse 107; Resp 22; Temp 98.5; Pulse Ox 100% 1 lpm ; Pain 0/10; dd1 17:14 BP 102 / 75; Pulse 105; Resp 20; Pulse Ox 100% 1 lpm ; Pain 0/10; dd1 17:47 BP 114 / 67; Pulse 111; Resp 20; Temp 98.4; Pulse Ox 100% 1 lpm ; Pain 0/10; dd1 10:12 Pain Scale: Adult dd1 10:30 Pain Scale: Adult dd1 12:04 Pain Scale: Adult dd1 13:06 Pain Scale: Adult dd1 14:06 Pain Scale: Adult dd1 15:22 Pain Scale: Adult dd1 17:14 Pain Scale: Adult dd1 17:47 Pain Scale: Adult dd1 ED Course: 09:26 Patient arrived in ED. bp 09:27 Andres Gallardo MD is Attending Physician. rt 09:50 CBC with Diff Sent. ko1 09:50 CMP Sent. ko1 09:50 Lipase Sent. ko1 09:50 Troponin High Sensitivity Sent. ko1 09:57 Inserted saline lock: 20 gauge in right wrist, using aseptic technique. dd1 09:57 Patient has correct armband on for positive identification. Placed in gown. Bed in low dd1 position. Call light in reach. Side rails up X2. 10:01 CT Abd/Pelvis - Without Contrast In Process Unspecified. EDMS 10:12 Carmenza Rey, YOEL is Primary Nurse. ko1 10:33 Triage completed. dd1 12:31 initiated a transfer with Radha Bass form the [facility]. eb 12:32 Chest Single View XRAY In Process Unspecified. EDMS 14:49 connected the thread inspector para professional for [facility] with Dr. Gallardo for eb patient transfer consultation. 14:56 administrative approval given by Radha Bass Rn. patient has been accepted to [facility] RM 1203 / Dr. Jil Gillette has accepted the patient in transfer/ report to be called to [phone]. 15:22 Inserted saline lock: 18 gauge in right forearm, using aseptic technique. dd1 16:04 No provider procedures requiring assistance completed. Patient transferred, IV remains dd1 in place. 16:05 Provided Education on: REASON FOR TRANSFER . dd1 16:05 Arm band placed on right wrist. dd1 Administered Medications: 09:54 Drug: NS 0.9% IV 1000 ml Route: IV; Rate: 1 bolus; Site: right wrist; dd1 10:46 Follow up: Response: No adverse reaction; IV Status: Completed infusion; IV Intake: dd1 1000ml 10:11 Drug: Digoxin IVP 0.5 mg Route: IVP; Site: right wrist; dd1 18:06 Follow up: Response: No adverse reaction bp 10:46 Drug: NS 0.9% IV 1000 ml Route: IV; Rate: 1 bolus; Site: right wrist; dd1 16:16 Follow up: Response: No adverse reaction; IV Status: Completed infusion; IV Intake: dd1 1000ml 12:03 Drug: amiodarone IVP 150 mg Route: IVP; Site: right wrist; dd1 18:06 Follow up: Response: No adverse reaction bp 12:03 Drug: amiodarone IVPB 900 mg, D5W IV 500 ml Route: IVPB; Rate: 1 mg/min; Site: right dd1 wrist; 17:46 Follow up: Response: No adverse reaction; IV Status: Infusion continued; IV Intake: dd1 180ml 12:59 Drug: D10 in Water IVP 250 ml Route: IVP; Site: right wrist; dd1 14:03 Follow up: Response: No adverse reaction dd1 12:59 Drug: Insulin Regular Human IVP 10 units {Co-Signature: ko1 (Carmenza Rey RN).} Route: dd1 IVP; Site: right wrist; 18:05 Follow up: Response: No adverse reaction bp 13:01 Drug: Kayexalate PO 30 grams Route: PO; dd1 18:05 Follow up: Response: No adverse reaction bp 13:39 Drug: Cefepime IVPB 2 grams Route: IVPB; Rate: 200 ml/hr; Infused Over: 30 mins; Site: dd1 right wrist; 14:02 Follow up: Response: No adverse reaction; IV Status: Completed infusion; IV Intake: dd1 100ml 14:02 Drug: vancoMYCIN IVPB 1 grams Route: IVPB; Infused Over: 2 hrs; Site: right wrist; dd1 16:21 Follow up: IV Status: Infusion continued; IV Intake: 200ml dd1 15:21 Drug: Sodium Bicarbonate IVP 1 amp Route: IVP; Site: right forearm; dd1 18:05 Follow up: Response: No adverse reaction bp 15:44 Drug: NS 0.9% IV 500 ml Route: IV; Rate: bolus; Site: right forearm; dd1 17:16 Follow up: Response: No adverse reaction; IV Status: Completed infusion; IV Intake: dd1 500ml 16:14 Drug: NS 0.9% IV 500 ml Route: IV; Rate: bolus; Site: right femoral; dd1 17:17 Follow up: IV Status: Completed infusion; IV Intake: 500ml dd1 16:32 Drug: Pantoprazole IVP 80 mg Route: IVP; Site: right antecubital; dd1 18:05 Follow up: Response: No adverse reaction bp 16:33 Drug: Solu-CORTEF IVP 100 mg Route: IVP; Site: right antecubital; dd1 18:05 Follow up: Response: No adverse reaction bp 17:14 Drug: Calcium Chloride IVP 1 grams Route: IVP; Site: right femoral; dd1 18:05 Follow up: Response: No adverse reaction bp Medication: 12:04 VIS not applicable for this client. dd1 17:15 Blood products: Whole blood X 2 units given. dd1 Intake: 10:46 IV: 1000ml; Total: 1000ml. dd1 14:02 IV: 100ml; Total: 1100ml. dd1 16:16 IV: 1000ml; Total: 2100ml. dd1 16:21 IV: 200ml; Total: 2300ml. dd1 17:16 IV: 500ml; Total: 2800ml. dd1 17:17 IV: 500ml; Total: 3300ml. dd1 17:46 IV: 180ml; Total: 3480ml. dd1 Outcome: 15:35 ER care complete, transfer ordered by . rt 16:03 Transferred by [facility] to [facility], Transfer form completed. dd1 Note: [facility] 16:03 Condition: stable 16:03 Instructed on PT UNDERSTANDS REASON FOR TRANSFER. 18:06 Patient left the ED. bp Signatures: Dispatcher [employer] Flash Mejía RN RN bp Botello, Elizabeth eb Oliver, Kathy, YOEL RN ko1 Andres Gallardo MD MD rt Arnold Palm RN RN dd1 Carmenza Rey RN ko1 Corrections: (The following items were deleted from the chart) 15:09 12:31 initiated a transfer with Radha Burciaga form the [facility]. ebeb
--- NOTE | 2023-02-11 15:36 | EDPHYS ---
Physician Documentation [facility] Name: Adriel Raya Age: 67 yrs Sex: Male : 1955 Arrival Date: 02/11/2023 Time: 09:25 Bed 6 Private MD: WILMAN Physician Andres Gallardo HPI: 02/11 15:35 This 67 yrs old Black Male presents to ER via EMS with complaints of Diarrhea. rt 15:35 Patient with end-stage renal disease last completed dialysis with 5 L of rt ultrafiltration yesterday. He states that he developed a dark red bloody stool with diarrhea today. States that he feels weak. Denies any pain, other acute complaints. Symptoms are severe in severity, no other aggravating or alleviating factors.. Historical: - Allergies: 10:12 Augmentin; dd1 10:12 Norvasc; dd1 - Home Meds: 10:47 simvastatin 20 mg Oral tablet 1 tab every day at bedtime [Active]; allopurinol 100 mg dd1 Oral tablet once [Active]; Eliquis 2.5 mg oral tablet 2 times per day [Active]; hydrocortisone 10 mg Oral tablet 2 times per day [Active]; fludrocortisone 0.1 mg oral tablet once [Active]; omeprazole 40 mg Oral capsule,delayed release (e.c.) once [Active]; Pentasa 500 mg Oral capsule, extended release 2 times per day [Active]; Proair Digihaler 90 mcg/actuation inhalation Aerosol Powder, Breath Activ.with Sensor every 6 hours [Active]; gabapentin 300 mg oral capsule once [Active]; famotidine 20 mg Oral tablet once [Active]; tramadol 50 mg Oral tablet every 6 hours [Active]; midodrine 5 mg oral tablet 3 times per day [Active]; - PMHx: 10:12 Dialysis; Diverticulitis; Hypertension; dd1 - PSHx: 10:12 Left arm dialysis fistula; dd1 13:46 Appendectomy; dd1 - Immunization history:: Adult Immunizations up to date. - Social history:: Smoking status: Patient denies any tobacco usage or history of. - Family history:: not pertinent. ROS: 15:35 Constitutional: Negative for fever, chills, and weight loss, Cardiovascular: Negative rt for chest pain, palpitations, and edema, Respiratory: Negative for shortness of breath, cough, wheezing, and pleuritic chest pain, MS/Extremity: Negative for injury and deformity, Skin: Negative for injury, rash, and discoloration, Neuro: Negative for headache, weakness, numbness, tingling, and seizure, Psych: Negative for depression, anxiety, suicide ideation, homicidal ideation, and hallucinations. 15:35 Abdomen/GI: Positive for Rectal bleeding, negative for abdominal pain. Exam: 15:35 Chest/axilla: Normal chest wall appearance and motion. Nontender with no deformity. rt No lesions are appreciated. Cardiovascular: Regular rate and rhythm with a normal S1 and S2. No gallops, murmurs, or rubs. Normal PMI, no JVD. No pulse deficits. Respiratory: Lungs have equal breath sounds bilaterally, clear to auscultation and percussion. No rales, rhonchi or wheezes noted. No increased work of breathing, no retractions or nasal flaring. Abdomen/GI: Soft, non-tender, with normal bowel sounds. No distension or tympany. No guarding or rebound. No evidence of tenderness throughout. Skin: Warm, dry with normal turgor. Normal color with no rashes, no lesions, and no evidence of cellulitis. Neuro: Awake and alert, GCS 15, oriented to person, place, time, and situation. Cranial nerves II-XII grossly intact. Motor strength 5/5 in all extremities. Sensory grossly intact. Cerebellar exam normal. Normal gait. Psych: Awake, alert, with orientation to person, place and time. Behavior, mood, and affect are within normal limits. 15:35 Constitutional: The patient appears Ill-appearing, confused 15:35 Musculoskeletal/extremity: Left forearm dialysis fistula noted. 17:24 ECG was reviewed by the Attending Physician. rt Vital Signs: 09:41 Weight 143.3 kg; ko1 09:58 BP 95 / 67; Pulse 150; Resp 19; Pulse Ox 94% ; dd1 10:12 Temp 98.9; Pain 8/10; dd1 10:30 BP 89 / 71; Pulse 136; Resp 20; Pulse Ox 95% ; Pain 8/10; dd1 11:15 BP 94 / 65; Pulse 145; Resp 20; dd1 12:04 BP 101 / 72; Pulse 122; Resp 22; Pulse Ox 95% ; Pain 7/10; dd1 13:06 BP 87 / 60; Pulse 112; Resp 20; Pain 8/10; dd1 14:06 BP 77 / 58; Pulse 111; Resp 19; Temp 98.5; Pulse Ox 95% 1 lpm ; Pain 0/10; dd1 14:22 BP 100 / 86; dd1 15:22 BP 118 / 93; Pulse 107; Resp 22; Temp 98.5; Pulse Ox 100% 1 lpm ; Pain 0/10; dd1 17:14 BP 102 / 75; Pulse 105; Resp 20; Pulse Ox 100% 1 lpm ; Pain 0/10; dd1 17:47 BP 114 / 67; Pulse 111; Resp 20; Temp 98.4; Pulse Ox 100% 1 lpm ; Pain 0/10; dd1 10:12 Pain Scale: Adult dd1 10:30 Pain Scale: Adult dd1 12:04 Pain Scale: Adult dd1 13:06 Pain Scale: Adult dd1 14:06 Pain Scale: Adult dd1 15:22 Pain Scale: Adult dd1 17:14 Pain Scale: Adult dd1 17:47 Pain Scale: Adult dd1 MDM: 09:27 Patient medically screened. rt 15:35 Differential diagnosis: Hemorrhage, septic shock, A-fib with rapid rate. Data reviewed: rt vital signs, nurses notes. Consideration of Admission/Observation Patient requires transfer for higher level of care, gastroenterology. Management of patient was discussed with the following: Clinical Lab Technologist: Discussed with cash reconciliation specialist at [facility], accepts patient in transfer. I considered the following discharge prescriptions or medication management in the emergency department Medications were administered in the Emergency Department. See MAR. Independent interpretation of the following test(s) in the Emergency Department CT Scan: My interpretation is No bowel obstructions and interpretation of the CT scan images. Care significantly affected by the following chronic conditions: Hypertension, Chronic Kidney Disease. Counseling: I had a detailed discussion with the patient and/or guardian regarding: the historical points, exam findings, and any diagnostic results supporting the discharge/admit diagnosis, lab results, radiology results, the need to transfer to another facility, for higher level of care, [facility] does not immediately have the required specialist. Response to treatment: the patient's symptoms have markedly improved after treatment. 02/11 09:31 Order name: CBC with Diff; Complete Time: 11:50 rt 02/11 09:31 Order name: CMP; Complete Time: 12:23 rt 08 09:31 Order name: Lipase; Complete Time: 12:23 rt 08 09:31 Order name: Troponin High Sensitivity; Complete Time: 12:23 rt 02/11 12:04 Order name: Blood Culture Adult (2) rt 02/11 12:04 Order name: Lactate w/ 2H reflex if indic.; Complete Time: 13:42 rt 02/11 12:04 Order name: Protime (+inr); Complete Time: 13:42 rt 02/11 12:04 Order name: Ptt, Activated; Complete Time: 13:42 rt 02/11 15:01 Order name: CBC with Diff rt 02/11 15:01 Order name: CMP; Complete Time: 16:38 rt 02/11 16:13 Order name: CBC Smear Scan EDMS 02/11 16:58 Order name: ABO/RH typing EDMS 02/11 16:58 Order name: Antibody Screen EDMS 02/11 16:58 Order name: Packed RBC Leukored EDMS 02/11 16:58 Order name: RBC Leukored Pheresis EDMS 02/11 09:31 Order name: CT Abd/Pelvis - Without Contrast; Complete Time: 10:19 rt 02/11 12:04 Order name: Chest Single View XRAY; Complete Time: 12:54 rt 02/11 09:31 Order name: EKG; Complete Time: 09:32 rt 08 09:31 Order name: IV Saline Lock; Complete Time: 09:49 rt 08 09:31 Order name: Labs collected and sent; Complete Time: 09:49 rt 02/11 09:31 Order name: EKG - Nurse/Tech; Complete Time: 09:50 rt 02/11 10:20 Order name: Labs - recollect needed: recollect green and purple top/ hemolyzed per Son eb ; Complete Time: 10:29 02/11 10:55 Order name: Labs - recollect needed; Complete Time: 14:04 ss 02/11 12:04 Order name: Accucheck; Complete Time: 12:21 rt 02/11 12:04 Order name: Cardiac monitoring; Complete Time: 12:07 rt 02/11 12:04 Order name: IV Saline Lock - Large Bore; Complete Time: 12:07 rt 02/11 12:04 Order name: O2 Per Protocol; Complete Time: 12:07 rt 08 12:04 Order name: O2 Sat Monitoring; Complete Time: 12: rt 08 12:04 Order name: Vital Signs; Complete Time: 12:07 rt EC:24 Rate is 163 beats/min. Rhythm is irregularly irregular, A fib with Occasional PVCs, rt Rate related ST and T wave changes. QRS [place] is Normal. QRS interval is normal. QT interval is normal. Administered Medications: 09:54 Drug: NS 0.9% IV 1000 ml Route: IV; Rate: 1 bolus; Site: right wrist; dd1 10:46 Follow up: Response: No adverse reaction; IV Status: Completed infusion; IV Intake: dd1 1000ml 10:11 Drug: Digoxin IVP 0.5 mg Route: IVP; Site: right wrist; dd1 18:06 Follow up: Response: No adverse reaction bp 10:46 Drug: NS 0.9% IV 1000 ml Route: IV; Rate: 1 bolus; Site: right wrist; dd1 16:16 Follow up: Response: No adverse reaction; IV Status: Completed infusion; IV Intake: dd1 1000ml 12:03 Drug: amiodarone IVP 150 mg Route: IVP; Site: right wrist; dd1 18:06 Follow up: Response: No adverse reaction bp 12:03 Drug: amiodarone IVPB 900 mg, D5W IV 500 ml Route: IVPB; Rate: 1 mg/min; Site: right dd1 wrist; 17:46 Follow up: Response: No adverse reaction; IV Status: Infusion continued; IV Intake: dd1 180ml 12:59 Drug: D10 in Water IVP 250 ml Route: IVP; Site: right wrist; dd1 14:03 Follow up: Response: No adverse reaction dd1 12:59 Drug: Insulin Regular Human IVP 10 units {Co-Signature: ko1 (Carmenza Rey RN).} Route: dd1 IVP; Site: right wrist; 18:05 Follow up: Response: No adverse reaction bp 13:01 Drug: Kayexalate PO 30 grams Route: PO; dd1 18:05 Follow up: Response: No adverse reaction bp 13:39 Drug: Cefepime IVPB 2 grams Route: IVPB; Rate: 200 ml/hr; Infused Over: 30 mins; Site: dd1 right wrist; 14:02 Follow up: Response: No adverse reaction; IV Status: Completed infusion; IV Intake: dd1 100ml 14:02 Drug: vancoMYCIN IVPB 1 grams Route: IVPB; Infused Over: 2 hrs; Site: right wrist; dd1 16:21 Follow up: IV Status: Infusion continued; IV Intake: 200ml dd1 15:21 Drug: Sodium Bicarbonate IVP 1 amp Route: IVP; Site: right forearm; dd1 18:05 Follow up: Response: No adverse reaction bp 15:44 Drug: NS 0.9% IV 500 ml Route: IV; Rate: bolus; Site: right forearm; dd1 17:16 Follow up: Response: No adverse reaction; IV Status: Completed infusion; IV Intake: dd1 500ml 16:14 Drug: NS 0.9% IV 500 ml Route: IV; Rate: bolus; Site: right femoral; dd1 17:17 Follow up: IV Status: Completed infusion; IV Intake: 500ml dd1 16:32 Drug: Pantoprazole IVP 80 mg Route: IVP; Site: right antecubital; dd1 18:05 Follow up: Response: No adverse reaction bp 16:33 Drug: Solu-CORTEF IVP 100 mg Route: IVP; Site: right antecubital; dd1 18:05 Follow up: Response: No adverse reaction bp 17:14 Drug: Calcium Chloride IVP 1 grams Route: IVP; Site: right femoral; dd1 18:05 Follow up: Response: No adverse reaction bp Disposition Summary: 02/11/23 15:35 Transfer Ordered Transfer Location: Other Acute Care Facility rt Reason: Higher level of care rt Condition: Critical rt Problem: new rt Symptoms: have improved rt Accepting Physician: (02/11/23 18:06) bp Diagnosis - Hematochezia rt - End-stage renal disease rt - Hyperkalemia rt - Hypotension rt - Sepsis rt - Atrial fibrillation with rapid ventricular rate rt Discharge Instructions: - Discharge Summary Sheet ko1 Forms: - SBAR form ko1 - Medication Reconciliation Form rt Critical care time excluding procedures: 17:25 Critical care time: Bedside Care: 45 minutes, Consultation: 10 minutes. Total time: 55 rt minutes Signatures: Dispatcher [employer] Matilde Rueda RN RN ss Flash Fernandez RN RN Petra Bradley Ryan, MD MD rt Arnold Palm RN RN dd1 Carmenza Rey RN ko1 Corrections: (The following items were deleted from the chart) 18:06 15:35 Dr. rt lara
[2023-02-11 16:09] LABS: Absolute Lymphocytes (CBC) 0.5 K/uL (0.7-4.9); Hematocrit 27.3 % (39.6-49.0); Lymphocytes % 3.3 % (15.3-44.8); MCV 103.4 fL (80-100); MPV 9.1 fL (7.6-11.3); RBC Red Blood Cell Count 2.64 M/uL (4.33-5.43)
[2023-02-11 16:31] LABS: Albumin 1.6 g/dL (3.4-5.0); Bilirubin Total 1.2 mg/dL (0.2-1.0); Protein, Total 3.8 g/dL (6.4-8.2)
[2023-02-11 16:34] LABS: Potassium 3.8 mEq/L (3.5-5.1)
[2023-02-11] MEDS ORDERED: HYDROCORTISONE SUC 100 MG INJ ONE (16:34)
[2023-02-11] MEDS ORDERED: PANTOPRAZOLE 40 MG INJ ONE (16:34)
[2023-02-11] MEDS ORDERED: Calcium Chloride 10% INJ SYR IV ONE (16:48)
[2023-02-11 17:12] LABS: Blood Morphology Comment NOTED (NOT SEEN); Platelet Estimate DECR; Polychromasia 1+; White Blood Cell Scan OK (OK)
[2023-02-11 19:04] VITALS: O2SAT 100
[2023-02-11 19:07] VITALS: BP 114/67; TEMP 98.4
--- NOTE | 2023-02-14 13:13 | EKG ---
Test Date: 2023-02-11 Test Time: 09:50:45 Branch Operation Evaluation Manager: DELFINA MEASUREMENT RESULTS: Intervals: Rate: 163 SD: QRSD: 80 QT: 246 QTc: 405 [place]: P: SD: QRS: 11 T: 40 INTERPRETIVE STATEMENTS: Atrial fibrillation with premature ventricular or aberrantly conducted complexes Septal infarct, age undetermined Abnormal ECG Compared to ECG 11/06/2022 20:19:52 Ventricular premature complex(es) now present Myocardial infarct finding still present Electronically Signed On 02-14-23 13:09:01 CDT by London Duron
== END 2023-02-11 18:06 ==
LOC: ER 09:25
DX: K92.1 Melena (principal); A41.9 Sepsis, unspecified organism; N18.6 End stage renal disease; Z99.2 Dependence on renal dialysis; I95.9 Hypotension, unspecified; E87.5 Hyperkalemia; I48.19 Other persistent atrial fibrillation; Z79.01 Long term (current) use of anticoagulants; Z88.1 Allergy status to other antibiotic agents; Z88.8 Allergy status to other drugs, medicaments and biological substances
CPT/HCPCS: 87040 ×2; 85025 ×2; 36415; 86900; 86850; 85610; 86901; 83605; 85730; 86920 ×2; 84484; 83690; 80053 ×2; 74176; 71045; 36430; 99285; J1815; J0282 ×2; J1160; C9113; J0692; J1720; P9016 ×2; J7050 ×2; J7040 ×2; J7030 ×2; 93005

== ENCOUNTER 2023-02-22 13:49 | Inpatient (IN) | payer OTHER, MEDICARE ==
[2023-02-22] MEDS ORDERED: NA CHLORIDE 0.9% 500 ML ONE (14:05)
--- NOTE | 2023-02-22 14:43 | RAD REPORT ---
EXAM DESCRIPTION: RADChest Single View02/22/2023 2:13 pm CLINICAL HISTORY: hypotension COMPARISON: Chest Single View dated 02/11/2023; Chest Single View dated 11/06/2022; Chest Single View d ated 10/28/2022; Chest Single View dated 08/01/2022 TECHNIQUE: Portable AP view of the chest. FINDINGS: Decreased inspiratory effort limits evaluation. The lungs are clear. No pneumothorax or ef fusion. The cardiomediastinal contours are unremarkable. IMPRESSION: No acute cardiopulmonary process.
[2023-02-22 14:54] LABS: Absolute Lymphocytes (CBC) 0.5 K/uL (0.7-4.9); Lymphocytes % 3.8 % (15.3-44.8); MCV 84.5 fL (80-100); MPV 8.5 fL (7.6-11.3); Platelets 205 thou/uL (152-406); RBC Red Blood Cell Count 5.92 M/uL (4.33-5.43)
[2023-02-22 15:21] LABS: Albumin 2.7 g/dL (3.4-5.0); Bilirubin Direct 0.4 mg/dL (0-0.2); Bilirubin Indirect, Calculated 0.4 mg/dL (0.2-0.8); Bilirubin Total 0.8 mg/dL (0.2-1.0); Magnesium 2.3 mg/dL (1.6-2.4); Potassium 4.2 mEq/L (3.5-5.1); Protein, Total 6.6 g/dL (6.4-8.2)
[2023-02-22 15:23] LABS: Troponin High Sensitivity 72.6 pg/mL (<58.9)
[2023-02-22 15:29] LABS: Blood Morphology Comment NOTED (NOT SEEN); Platelet Estimate ADEQ; Polychromasia 1+; White Blood Cell Scan OK (OK)
--- NOTE | 2023-02-22 15:36 | EDPHYS ---
Physician Documentation [facility] Name: Adriel Raya Age: 67 yrs Sex: Male : 1955 Arrival Date: 02/22/2023 Time: 13:49 Bed 2 Private MD: ED Physician Marty Soares HPI: 02/22 14:00 This 67 yrs old Black Male presents to ER via Unassigned with complaints of hypotension.ms3 14:00 67-year-old male with past medical history of end-stage renal disease, hypertension, ms3 myocardial infarction, hyperlipidemia presents via [facility] for hypotension. EMS states patient had dialysis today and 2-1/2 L was removed versus patient's usual 5 L secondary to patient's low blood pressure. EMS was initially called to patient's house for patient sliding into the floor board of his car. After placing patient in bed patient's blood pressure continued to decrease to 59/42. Patient denies pain, nausea, vomiting, shortness of breath. . Historical: - Allergies: 14:01 Augmentin; ss 14:01 Norvasc; ss - PMHx: 14:01 Dialysis; Diverticulitis; Hypertension; ss - PSHx: 14:01 Appendectomy; Left arm dialysis fistula; ss - Immunization history:: Adult Immunizations unknown. - Social history:: Smoking status: Patient denies any tobacco usage or history of. ROS: 14:00 Constitutional: Negative for fever, and chills. ms3 14:21 Neck: Negative for injury, pain, and swelling, Cardiovascular: Negative for chest pain, ms3 and palpitations. Respiratory: Negative for shortness of breath, cough, wheezing, and pleuritic chest pain, Abdomen/GI: Negative for abdominal pain, nausea, vomiting, diarrhea, and constipation, MS/Extremity: Negative for injury and deformity, Skin: Negative for injury, rash, and discoloration. 14:21 All other systems are negative. Exam: 14:21 Constitutional: This is a well developed, well nourished patient who is awake, alert, ms3 and in no acute distress. Head/Face: Normocephalic, atraumatic. Neck: Trachea midline, no cervical lymphadenopathy. Supple, full range of motion without nuchal rigidity, or vertebral point tenderness. No Meningismus. Chest/axilla: Normal chest wall appearance and motion. Nontender with no deformity. Cardiovascular: Regular rate and rhythm with a normal S1 and S2. No gallops, murmurs, or rubs. Normal PMI, no JVD. No pulse deficits. Respiratory: Lungs have equal breath sounds bilaterally, clear to auscultation and percussion. No rales, rhonchi or wheezes noted. No increased work of breathing, no retractions or nasal flaring. Abdomen/GI: Soft, non-tender, with normal bowel sounds. No distension or tympany. No guarding or rebound. No evidence of tenderness throughout. Skin: Warm, dry with normal turgor. Normal color with no rashes, no lesions, and no evidence of cellulitis. MS/ Extremity: Pulses equal, no cyanosis. Neurovascular intact. Full, normal range of motion. 14:21 Neuro: Orientation: is normal, Mentation: slow to respond, Memory: is normal, Cranial nerves: CN I not tested, CN II- XII are normal as tested, Motor: moves all fours, Sensation: no obvious gross deficits. 15:03 ECG was reviewed by the Attending Physician. ms3 Vital Signs: 13:57 BP 83 / 67; Pulse 89; Resp 18; Temp 97.8; Pulse Ox 98% on R/A; Weight 148 kg; ph 15:03 BP 101 / 41; Pulse 89; Resp 18; Pulse Ox 98% on R/A; ph 15:59 BP 101 / 65; Pulse 100; Resp 18; Pulse Ox 95% on R/A; ph 17:00 BP 102 / 66; Pulse 95; Resp 18; Pulse Ox 95% on R/A; ph 18:00 BP 101 / 63; Pulse 97; Resp 16; Temp 97.5; Pulse Ox 96% on R/A; ph MDM: 13:53 Patient medically screened. ms3 13:59 ED course: Discussed case with Dr Franklin and patient with recent hospitalization. ms3 250-500 ml NS bolus. CXR.. 14:22 Differential Diagnosis Hypovolemia vs Electrolyte abnormality vs anemia vs ESRD. ms3 15:37 Data reviewed: vital signs, nurses notes, lab test result(s), EKG, radiologic studies, ms3 and as a result, I will admit patient. Consideration of Admission/Observation Patient was admitted/placed on observation. Management of patient was discussed with the following: Hospitalist: Dmitri on behalf of Dr Phipps. I considered the following discharge prescriptions or medication management in the emergency department Medications were administered in the Emergency Department. See MAR. Independent interpretation of the following test(s) in the Emergency Department EKG: See my EKG interpretation above X-Ray: My interpretation is CXR image reviewed by me does not show pulmonary edema. pvc monitor: rate is 88 beats/min, Rhythm is atrial fibrillation, with no ectopy, Interpretation: normal rate, atrial fibrillation. Historians other than the Patient: EMS: [facility]. Counseling: I had a detailed discussion with the patient and/or guardian regarding: the historical points, exam findings, and any diagnostic results supporting the discharge/admit diagnosis, lab results, radiology results, the need for further work-up and treatment in the hospital. 02/22 13:54 Order name: Basic Metabolic Panel; Complete Time: 15:25 ms3 02/22 13:54 Order name: CBC with Diff; Complete Time: 15:31 ms3 02/22 13:54 Order name: LFT's; Complete Time: 15:25 ms3 02/22 13:54 Order name: Magnesium; Complete Time: 15:25 ms3 02/22 13:54 Order name: Troponin HS; Complete Time: 15:25 ms3 02/22 15:06 Order name: CBC Smear Scan; Complete Time: 15:31 EDMS 02/22 16:46 Order name: Ammonia EDMS 02/22 16:48 Order name: Blood Culture EDID 02/22 13:54 Order name: XRAY Chest (1 view); Complete Time: 15:02 ms3 02/22 16:46 Order name: Head Brain W Cont EDMS 02/22 18:17 Order name: CT EDMS 02/22 13:54 Order name: EKG; Complete Time: 13:56 ms3 02/22 13:54 Order name: Cardiac monitoring; Complete Time: 13:59 ms3 02/22 13:54 Order name: EKG - Nurse/Tech; Complete Time: 14:56 ms3 02/22 13:54 Order name: IV Saline Lock; Complete Time: 14:56 ms3 02/22 13:54 Order name: Labs collected and sent; Complete Time: 15:00 ms3 08/15 13:54 Order name: O2 Per Protocol; Complete Time: 13:59 ms3 02/22 13:54 Order name: O2 Sat Monitoring; Complete Time: 13:59 ms3 EC:03 Rate is 93 beats/min. Rhythm is irregularly irregular. QRS [place] is Normal. QRS interval ms3 is normal. Clinical impression: Atrial Fibrillation. Interpreted by me. Reviewed by me. Administered Medications: 14:55 Drug: NS 0.9% IV 500 ml Route: IV; Rate: 1000 ml; Site: right forearm; me1 15:45 Follow up: Response: No adverse reaction; IV Status: Completed infusion; IV Intake: ph 500ml Disposition Summary: 02/22/23 15:36 Hospitalization Ordered Hospitalization Status: Inpatient Admission ms3 Provider: Andry Phipps ms3 Location: Telemetry/[facility] (Inpatient) ms3 Condition: Stable ms3 Problem: new ms3 Symptoms: are unchanged ms3 Bed/Room Type: Standard ms3 Room Assignment: 403(02/22/23 17:00) bd Diagnosis - Hypotension, unspecified ms3 - Elevated Troponin ms3 Forms: - Medication Reconciliation Form ms3 - SBAR form ms3 - Leadership Thank You Letter ms3 Signatures: Dispatcher [employer] EDMS Yari Painting Shelby, RN RN Yoselin Hicks RN RN Marty Soares DO DO ms3 Miriam Bergman, YOEL RN me1 Corrections: (The following items were deleted from the chart) 17:00 15:36 ms3 bd
--- NOTE | 2023-02-22 15:36 | ER ---
Nurse's Notes [facility] Name: Adriel Raya Age: 67 yrs Sex: Male : 1955 Arrival Date: 02/22/2023 Time: 13:49 Bed 2 Private MD: Diagnosis: Hypotension, unspecified;Elevated Troponin Presentation: 02/22 13:57 Chief complaint: EMS states: Called for lift assist, pt had slid down in car, ph reported that pt had just gotten home from dialysis, usually 5 liters is taken off but today they only removed 2.5 liters d/t his BP dropping, initial BP for EMS 80s/50s, pt initaiily refused transport but after getting him inside in the bed BP dropped to 50s systolic. Coronavirus screen: Vaccine status: Patient reports receiving the 2nd dose of the covid vaccine. Ebola Screen: No symptoms or risks identified at this time. Initial Sepsis Screen: Does the patient meet any 2 criteria? Systolic BP < 90 mmHg. Mean Arterial Pressure (MAP) < 65. HR > 90 bpm. Does the patient have a suspected source of infection? No. Patient's initial sepsis screen is negative. Risk Assessment: Do you want to hurt yourself or someone else? Patient reports no desire to harm self or others. 13:57 [facility] Of [facility] 13:57 Acuity: SAM 2 15:04 Onset of symptoms was February 22, 2023. Triage Assessment: 14:00 General: Appears in no apparent distress. comfortable, obese, well groomed, Behavior is ph calm, cooperative, drowsy, quiet, Denies fever, feeling ill. Pain: Denies pain. Neuro: Level of Consciousness is obeys commands, lethargic, listless, Oriented to person, place, situation. Cardiovascular: Capillary refill < 3 seconds in bilateral fingers Patient's skin is warm and dry. Rhythm is atrial fibrillation. Cardiovascular: Dialysis shunt: in the dorsal aspect of left forearm, with palpable thrill, with auscultated bruit, with mild erythema, with no edema, no bleeding noted. Respiratory: Airway is patent Respiratory effort is even, unlabored, Denies shortness of breath. GI: Patient currently denies abdominal pain, diarrhea, nausea, vomiting. : No signs and/or symptoms were reported regarding the genitourinary system. Derm: Skin is dry, Skin is normal, Skin temperature is warm. Musculoskeletal: Circulation, motion, and sensation intact. Range of motion: intact in all extremities. Historical: - Allergies: 14:01 Augmentin; ss 14:01 Norvasc; ss - PMHx: 14:01 Dialysis; Diverticulitis; Hypertension; ss - PSHx: 14:01 Appendectomy; Left arm dialysis fistula; ss - Immunization history:: Adult Immunizations unknown. - Social history:: Smoking status: Patient denies any tobacco usage or history of. Screenin:03 [facility] ED Fall Risk Assessment (Adult) History of falling in the last 3 months, ph including since admission Yes- single mechanical fall (1 pt) Confusion or Disorientation Yes (5 pts) Intoxicated or Sedated No (0 pts) Impaired Gait Yes (1 pt) Mobility Assist Device Used Yes (1 pt) Altered Elimination No (0 pt) Score/Fall Risk Level 3 or more points = High Risk Oriented to surroundings, Maintained a safe environment, Hourly rounding (assess needs \T\ fall precautionary measures) done, Used ambulatory aids as needed (educated on \T\ assisted with). Abuse screen: Denies threats or abuse. Denies injuries from another. Nutritional screening: No deficits noted. Tuberculosis screening: No symptoms or risk factors identified. Assessment: 15:06 General: SEE TRIAGE ASSESSMENT. ph Vital Signs: 13:57 BP 83 / 67; Pulse 89; Resp 18; Temp 97.8; Pulse Ox 98% on R/A; Weight 148 kg; ph 15:03 BP 101 / 41; Pulse 89; Resp 18; Pulse Ox 98% on R/A; ph 15:59 BP 101 / 65; Pulse 100; Resp 18; Pulse Ox 95% on R/A; ph 17:00 BP 102 / 66; Pulse 95; Resp 18; Pulse Ox 95% on R/A; ph 18:00 BP 101 / 63; Pulse 97; Resp 16; Temp 97.5; Pulse Ox 96% on R/A; ph ED Course: 13:51 Patient arrived in ED. ko1 13:53 Marty Soares DO is Attending Physician. ms3 14:02 Triage completed. ph 14:13 Carmenza Rey, RN is Primary Nurse. ko1 14:15 XRAY Chest (1 view) In Process Unspecified. EDMS 14:29 Arm band placed on Patient placed in an exam room, on a stretcher, on portfolio assistant, ph on pulse oximetry. 14:40 Missed attempt(s): 22 gauge in right antecubital area. Bleeding controlled, band aid ph applied, catheter tip intact. Missed attempt(s): 22 gauge in right forearm. Bleeding controlled, band aid applied, catheter tip intact. 15:00 Inserted saline lock: 20 gauge in right forearm, using aseptic technique. ,using ss aseptic technique. 20 gauge MIDLINE, 10 CM powerglide inserted to R FA using aseptic technique. Pt tolerated well Blood collected. 15:04 Patient has correct armband on for positive identification. Placed in gown. Bed in low ph position. Call light in reach. Side rails up X2. Client placed on continuous cardiac and pulse oximetry monitoring. NIBP monitoring applied. 15:34 Andry Phipps MD is Hospitalizing Provider. ms3 18:43 No provider procedures requiring assistance completed. Patient admitted, IV remains in ph place. Administered Medications: 14:55 Drug: NS 0.9% IV 500 ml Route: IV; Rate: 1000 ml; Site: right forearm; me1 15:45 Follow up: Response: No adverse reaction; IV Status: Completed infusion; IV Intake: ph 500ml Medication: 15:04 VIS not applicable for this client. ph Intake: 15:45 IV: 500ml; Total: 500ml. ph Outcome: 15:36 Decision to Hospitalize by Provider. ms3 18:43 Admitted to Tele accompanied by tech, family with patient, via stretcher, room 403, ph with chart, Report called to YOEL Pineda 18:43 Condition: stable 18:43 Instructed on the need for admit. 18:44 Patient left the ED. ph Signatures: Dispatcher [employer] EDMS Matilde Bird, YOEL DIALLO Yoselin Hicks RN RN Marty Gray DO DO ms3 Carmenza Rey, YOEL DIALLO ko1 Miriam Bergman RN RN me1
[2023-02-22] MEDS ORDERED: ACETAMINOPHEN 325 MG TABLET PO PRN (16:43)
[2023-02-22] MEDS ORDERED: TRAMADOL HCL 50 MG TAB PO PRN (16:43)
[2023-02-22] MEDS ORDERED: ONDANSETRON 4 MG/2 ML VIAL IV PRN (16:50)
--- NOTE | 2023-02-22 17:00 | P.HP ---
Certification for Inpatient Patient admitted to: Inpatient With expected LOS: >2 Midnights Patient will require the following post-hospital care: None Practitioner: I am a practitioner with admitting privileges, knowledge of patient current condition, hospital course, and medical plan of care. Services: Services provided to patient in accordance with Admission requirements found in Title 42 Section 412.3 of the Code of Federal Regulations <Adriana Ramos - Last Filed: 02/22/23 20:04> Patient History Date of Service: 02/22/23 Reason for admission: Hypotension. History of Present Illness: Patient is a 67-year-old male with a past medical history significant for ESRD, hypertension, morbid obesity, gout, GERD, hyperlipidemia, chronic A-fib, ZEV who presents with complaint of hypotension. Patient currently alert and oriented x1 and confused. Patient unable to provide any history. I called spouse who informed me that patient went to dialysis today but was unable to get the full dose of dialysis due to low blood pressure. Dialysis was able to remove 2.5L due to low blood pressure as opposed to the 5 L that they normally remove Spouse reported that patient on getting home but was not able to get out of the car and patient became confused. Patient's spouse decided to call EMS and patient was been taken to another hospital when EMS made he decision to bring patient to the nearest hospital due to low blood pressure. No other signs and symptoms reported. Symptoms are aggravated or relieved by nothing. Patient currently resting in bed, and lethargic - Past Medical/Surgical History Diabetic: No -: Diverticulitis -: HTN -: Gout -: ESRD -: HD on T, Th, Sat -: Asbestosis -: Obstructive sleep apnea with CPAP at night -: Adrenal insufficiency -: Cardiac catheterization -: Appendectomy -: Cholecystectomy -: Left knee arthroscopy Psychosocial/ Personal History: patient is . - Social History Smoking Status: Former smoker Alcohol use: No CD- Drugs: No Caffeine use: No Place of Residence: Home <InacristalvikyAdriana Adair - Last Filed: 02/22/23 20:04> Date of Service: 02/23/23 <Andry Phipps - Last Filed: 02/23/23 13:32> Allergies amlodipine besylate [From Norvasc] Allergy (Verified 01/25/22 13:59) Anaphylaxis, lower leg swelling amoxicillin [From Augmentin] Allergy (Verified 01/25/22 13:59) Nausea/Vomiting/Diarrhea clavulanic acid [From Augmentin] Allergy (Verified 01/25/22 13:59) Nausea/Vomiting/Diarrhea Home Medications: Cinacalcet HCl [Sensipar*] 1 tab PO BEDTIME 09/02/13 Docusate [Colace Cap*] 1 tab PO BID 09/02/13 Omeprazole [Prilosec] 40 mg PO DAILY 09/02/13 allopurinoL [Zyloprim*] 100 mg PO BEDTIME 09/02/13 Apixaban [Eliquis *] 2.5 mg PO BID 09/26/20 Albuterol Sulfate [Proair Hfa] 2 puff IH Q6HP PRN 01/25/22 L. Acidophilus/Bifido. Longum [Probiotic Pearls Acidophilus] 1 each PO BID 01/25/22 Mesalamine [Pentasa] 4 cap PO BID 01/25/22 Multivitamin [One-Daily Multi-Vitamin] 1 each PO DAILY 01/25/22 Simvastatin 20 mg PO BEDTIME 01/25/22 Tramadol HCl [Ultram] 50 mg PO Q6H 01/25/22 Gabapentin 300 mg PO DAILY #30 cap 08/04/22 Hydrocortisone [Cortef*] 20 mg PO BID #120 tab 08/04/22 Metoprolol Tartrate [Lopressor*] 50 mg PO BID #60 tab 08/04/22 Midodrine HCl [Proamatine*] 5 mg PO TID #90 tab 08/04/22 Review of Systems is unable to be obtained (Patient confused. Unable to assess.) <Adriana Ramos E - Last Filed: 02/22/23 20:04> Physical Examination - Physical Exam General: Alert, In no apparent distress, Oriented x1, Confused, Other (Lethargic) HEENT: Atraumatic, PERRLA, Mucous membr. moist/pink, EOMI, Sclerae nonicteric Neck: Supple, 2+ carotid pulse no bruit, No LAD, Without JVD or thyroid abnormality Respiratory: Diminished Cardiovascular: No edema, Normal S1 S2, Irregular heart rate/rhythm Capillary refill: <2 Seconds Gastrointestinal: Normal bowel sounds, No tenderness Musculoskeletal: No clubbing, No tenderness Integumentary: No rashes, No breakdown Neurological: Normal speech, Normal tone, Normal affect Lymphatics: No axilla or inguinal lymphadenopathy - Studies Laboratory Data (last 24 hrs) 02/22/23 02/22/23 14:16 14:16 WBC 14.10 H Hgb 15.8 Hct 50.0 H Plt Count 205 Sodium 131 L Potassium 4.2 BUN 53 H Creatinine 11.50 H Glucose 101 Magnesium 2.3 Total Bilirubin 0.8 AST 31 ALT 47 Alkaline Phosphatase 130 H <InacristalAdriana adair - Last Filed: 02/22/23 20:04> - Studies Laboratory Data (last 24 hrs) 02/22/23 02/22/23 14:16 14:16 WBC 14.10 H Hgb 15.8 Hct 50.0 H Plt Count 205 Sodium 131 L Potassium 4.2 BUN 53 H Creatinine 11.50 H Glucose 101 Magnesium 2.3 Total Bilirubin 0.8 AST 31 ALT 47 Alkaline Phosphatase 130 H <Andry Phipps - Last Filed: 02/23/23 13:32> Assessment and Plan - Plan --Hypotension. Patient has a history of hypotension. On midodrine at home. We will hold off blood pressure medications. Continue midodrine. Blood pressure levels soft but fairly stable. Continue supportive care. --ESRD. Nephrology consulted. Dialysis schedule per second floor operator. --Acute encephalopathy. Unclear etiology. Blood cultures and ammonia levels pending. CT head indicates No evidence of an acute intracranial process. Stable subinsular foci of hypoattenuation as above. Neurology consulted. We will await further recommendations from neurologist. --Elevated troponin. Likely secondary to ESRD. We will continue to trend troponin levels. Continue supportive care. --Morbid obesity. Patient will be counseled on weight reduction, diet and exercise therapy when fully alert. --Chronic atrial fibrillation. Continue Eliquis. --Gout. Continue home medication. --GERD. Continue Protonix. --Hyperlipidemia. Continue statin. --Leukocytosis. Likely reactive. Blood cultures pending. We will continue to monitor WBC levels. --ZEV. CPAP every at bedtime. --History of Asbestosis. Continue home medications and supportive care. --Peripheral neuropathy. Continue gabapentin when appropriate. --DVT prophylaxis with Eliquis. Discharge Plan: Home Plan to discharge in: Greater than 2 days - Advance Directives Does patient have a Living Will: Yes Does patient have a Durable POA for Healthcare: No - Code Status/Comfort Care Code Status Assessed: Yes Physician Review: Patient Assessed, Agree with Above Assessment and Plan Critical Care: No <Adriana Ramos E - Last Filed: 02/22/23 20:04>
--- NOTE | 2023-02-22 18:16 | RAD REPORT ---
EXAM DESCRIPTION: CT - Head Brain Wo Cont - 02/22/2023 5:50 pm CLINICAL HISTORY: AMS COMPARISON: Head Brain Wo Cont dated 11/06/2022; Ct Stroke Brain Wo Cont dated 12/16/2015 TECHNIQUE: Noncontrast head CT images were obtained without IV contrast. Multiplanar reformats were generated and reviewed. All CT scans are performed using dose optimization technique as appropriate and may include automated exposure control or mA/KV adjustment according to patient size. FINDINGS: No intracranial hemorrhage, mass, or edema. Midline structures are unremarkable. Stable ventricular caliber with mild diffuse parenchymal volume loss. Subinsular foci of hypoattenuation are stable, may suggest small chronic infarcts. [place]-white matter differentiation is otherwise preserved, without evidence of acute infarct. No abnormal extra-axial fl uid collections. Mastoid air cells and visualized portions of the paranasal sinuses are clear. No acute bony findings. IMPRESSION: No evidence of an acute intracranial process. Stable subinsular foci of hypoattenuation as above.
[2023-02-22 19:39] VITALS: BMI 45.1
[2023-02-22] MEDS: APIXABAN 2.5 MG TABLET PO SCH (21:04)
[2023-02-22] MEDS: MIDODRINE HCL 5 MG TABLET PO SCH (21:04)
[2023-02-22 22:16] LABS: Magnesium 2.3 mg/dL (1.6-2.4); Phosphorus 5.9 mg/dL (2.5-4.9); Thyroid Stimulating Hormone 3.56 uIU/mL (0.358-3.740)
--- NOTE | 2023-02-23 07:52 | P.CNS ---
Date of Consult: 02/23/23 Reason for Consult: ESRD Requesting Physician: Andry Phipps Chief Complaint: Hypotension. History of Present Illness: Patient is a 67-year-old male with a past medical history significant for ESRD, hypertension, morbid obesity, gout, GERD, hyperlipidemia, chronic A-fib, ZEV who presents with complaint of hypotension. Patient currently alert and oriented x1 and confused. Patient unable to provide any history. I called spouse who informed me that patient went to dialysis today but was unable to get the full dose of dialysis due to low blood pressure. Dialysis was able to remove 2.5L due to low blood pressure as opposed to the 5 L that they normally remove Spouse reported that patient on getting home but was not able to get out of the car and patient became confused. Patient's spouse decided to call EMS and patient was been taken to another hospital when EMS made he decision to bring patient to the nearest hospital due to low blood pressure. No other signs and symptoms reported. Symptoms are aggravated or relieved by nothing. Patient currently resting in bed, and lethargic 14:00 This 67 yrs old Black Male presents to ER via Unassigned with complaints of hypotension.ms3 14:00 67-year-old male with past medical history of end-stage renal disease, hypertension, ms3 myocardial infarction, hyperlipidemia presents via [facility] for hypotension. EMS states patient had dialysis today and 2-1/2 L was removed versus patient's usual 5 L secondary to patient's low blood pressure. EMS was initially called to patient's house for patient sliding into the floor board of his car. After placing patient in bed patient's blood pressure continued to decrease to 59/42. Patient denies pain, nausea, vomiting, shortness of breath. Allergies amlodipine besylate [From Norvasc] Allergy (Verified 01/25/22 13:59) Anaphylaxis, lower leg swelling amoxicillin [From Augmentin] Allergy (Verified 01/25/22 13:59) Nausea/Vomiting/Diarrhea clavulanic acid [From Augmentin] Allergy (Verified 01/25/22 13:59) Nausea/Vomiting/Diarrhea Home medications list reviewed: Yes Home Medications: Cinacalcet HCl [Sensipar*] 1 tab PO BEDTIME 09/02/13 Docusate [Colace Cap*] 1 tab PO BID 09/02/13 Omeprazole [Prilosec] 40 mg PO DAILY 09/02/13 allopurinoL [Zyloprim*] 100 mg PO BEDTIME 09/02/13 Apixaban [Eliquis *] 2.5 mg PO BID 09/26/20 Albuterol Sulfate [Proair Hfa] 2 puff IH Q6HP PRN 01/25/22 L. Acidophilus/Bifido. Longum [Probiotic Pearls Acidophilus] 1 each PO BID 01/25/22 Mesalamine [Pentasa] 4 cap PO BID 01/25/22 Multivitamin [One-Daily Multi-Vitamin] 1 each PO DAILY 01/25/22 Simvastatin 20 mg PO BEDTIME 01/25/22 Tramadol HCl [Ultram] 50 mg PO Q6H 01/25/22 Gabapentin 300 mg PO DAILY #30 cap 08/04/22 Hydrocortisone [Cortef*] 20 mg PO BID #120 tab 08/04/22 Metoprolol Tartrate [Lopressor*] 50 mg PO BID #60 tab 08/04/22 Midodrine HCl [Proamatine*] 5 mg PO TID #90 tab 08/04/22 - Past Medical/Surgical History Diabetic: No -: Diverticulitis -: HTN -: Gout -: ESRD -: HD on T, Thur, Sat -: Asbestosis -: Obstructive sleep apnea with CPAP at night -: Adrenal insufficiency -: Cardiac catheterization -: Appendectomy -: Cholecystectomy -: Left knee arthroscopy Psychosocial/ Personal History: patient is . - Social History Smoking Status: Current every day smoker Alcohol use: No CD- Drugs: No Caffeine use: No Place of Residence: Home Review of Systems 10-point ROS is otherwise unremarkable General: Weakness Physical Examination Temp Pulse Resp BP Pulse Ox 97.2 F 102 H 13 106/53 L 94 02/23/23 04:00 02/23/23 04:00 02/23/23 04:00 02/23/23 04:00 02/23/23 04:00 General: In no apparent distress, Oriented x3, Cooperative HEENT: Atraumatic Neck: Supple Respiratory: Normal air movement Cardiovascular: No edema, Regular rate/rhythm Gastrointestinal: Soft and benign, Non-distended Musculoskeletal: No clubbing, No contractures Integumentary: No rashes, No cyanosis Neurological: Normal speech Laboratory Data (last 24 hrs) 02/22/23 02/22/23 14:16 14:16 WBC 14.10 H Hgb 15.8 Hct 50.0 H Plt Count 205 Sodium 131 L Potassium 4.2 BUN 53 H Creatinine 11.50 H Glucose 101 Magnesium 2.3 Total Bilirubin 0.8 AST 31 ALT 47 Alkaline Phosphatase 130 H Imagings Data: EXAM DESCRIPTION: RADChest Single View02/22/2023 2:13 pm CLINICAL HISTORY: hypotension COMPARISON: Chest Single View dated 02/11/2023; Chest Single View dated 11/06/2022; Chest Single View dated 10/28/2022; Chest Single View dated 08/01/2022 TECHNIQUE: Portable AP view of the chest. FINDINGS: Decreased inspiratory effort limits evaluation. The lungs are clear. No pneumothorax or effusion. The cardiomediastinal contours are unremarkable. IMPRESSION: No acute cardiopulmonary process. EXAM DESCRIPTION: CT - Head Brain Wo Cont - 02/22/2023 5:50 pm CLINICAL HISTORY: AMS COMPARISON: Head Brain Wo Cont dated 11/06/2022; Ct Stroke Brain Wo Cont dated 12/16/2015 TECHNIQUE: Noncontrast head CT images were obtained without IV contrast. Multiplanar reformats were generated and reviewed. All CT scans are performed using dose optimization technique as appropriate and may include automated exposure control or mA/KV adjustment according to patient size. FINDINGS: No intracranial hemorrhage, mass, or edema. Midline structures are unremarkable. Stable ventricular caliber with mild diffuse parenchymal volume loss. Subinsular foci of hypoattenuation are stable, may suggest small chronic infarcts. [place]-white matter differentiation is otherwise preserved, without evidence of acute infarct. No abnormal extra-axial fluid collections. Mastoid air cells and visualized portions of the paranasal sinuses are clear. No acute bony findings. IMPRESSION: No evidence of an acute intracranial process. Stable subinsular foci of hypoattenuation as above. Conclusions/Impression: ESRD on HD -HD TIW TTS Hyponatremia -HD TIW Chronic Hypotension Transient hypotension post HD -Continue Midodrine -IVF bolus prn ZEV -CPAP qhs Hypoalbuminemia -Start Nepro Gout -Continue Allopurinol Case reviewed with Dr. Phipps; notes reviewed Thank you kindly for the consultation
[2023-02-23 08:49] LABS: Absolute Lymphocytes (CBC) 0.8 K/uL (0.7-4.9); Hematocrit 47.1 % (39.6-49.0); Lymphocytes % 6.4 % (15.3-44.8); MCV 85.7 fL (80-100); MPV 8.3 fL (7.6-11.3); Platelets 196 thou/uL (152-406)
[2023-02-23 09:58] LABS: Potassium 4.5 mEq/L (3.5-5.1)
[2023-02-23] MEDS: MIDODRINE HCL 5 MG TABLET PO SCH ×3 (10:25→20:28)
[2023-02-23] MEDS: APIXABAN 2.5 MG TABLET PO SCH ×2 (10:25→20:27)
[2023-02-23] MEDS: ASPIRIN 81 MG CHEWABLE TABLET PO SCH (10:25)
--- NOTE | 2023-02-23 13:33 | P.PN ---
Subjective Date of Service: 02/23/23 Chief Complaint: Hypotension. No acute events since admission. He appears much improved. He is alert and oriented x 3. He reports generalized weakness and lower extremity edema. He denies any chest pain, palpitations, or shortness of breath. Review of Systems 10-point ROS is otherwise unremarkable General: Weakness (generalized) Cardiovascular: Edema Physical Examination - Vital Signs Temperature: 97.1 F Blood Pressure: 106/62 Pulse: 102 Respirations: 15 Pulse Ox (%): 92 - Physical Exam General: Alert, In no apparent distress, Oriented x3 HEENT: Atraumatic, Mucous membr. moist/pink, Sclerae nonicteric Neck: JVD not distended Respiratory: Clear to auscultation bilaterally, Normal air movement Cardiovascular: Regular rate/rhythm, Normal S1 S2, No gallops, No rubs, No murmurs, Edema (1+ BLE) Gastrointestinal: Normal bowel sounds, Soft and benign, Non-distended, No tend erness, No rebound, No guarding Musculoskeletal: No clubbing Integumentary: No rashes Neurological: Normal speech, Normal affect - Studies Laboratory Data (last 24 hrs) 02/22/23 02/22/23 14:16 14:16 WBC 14.10 H Hgb 15.8 Hct 50.0 H Plt Count 205 Sodium 131 L Potassium 4.2 BUN 53 H Creatinine 11.50 H Glucose 101 Magnesium 2.3 Total Bilirubin 0.8 AST 31 ALT 47 Alkaline Phosphatase 130 H Assessment And Plan - Plan # Transient Hypotension following Hemodialysis Per discussion with Dr. Soares, he had hemodialysis yesterday, in which 5 L was removed. Upon returning home, he became hypotensive, but not altered. Dr. Soares spoke with Dr. Franklin, who recommended IV fluids and admission for blood pressure monitoring. Of note, he takes midodrine at home, so suspect he may have underlying autonomic dysfunction. - He met 2/4 SIRS criteria with leukocytosis, tachycardia - with no evidence of infection - Chest x-ray = "no acute cardiopulmonary process" - CT head = "No evidence of an acute intracranial process." - Continue home midodrine - Infectious evaluation pending - blood cultures with no growth to date # Adrenal Insufficiency Can certainly contribute to hypotension; however, labs are not suggestive of adrenal crisis - Continue home hydrocortisone # End-Stage Renal Disease on [facility] iHD - Nephrology consulted - recommendations appreciated - Renally dose medications # Likely Demand Ischemia (Type II Non-ST Segment Elevation Myocardial Infarction) # Dyslipidemia - Evaluation thus far: - EKG: without STEMI criteria, trend - Serial troponin: 72.6 -> 77.4 -> 69.4 - Ordered transthoracic echocardiogram - Ordered d-dimer - Management plan: - Consult Cardiology - recommendations appreciated - Continue aspirin, simvastatin - If CAD confirmed, plan to start beta-saige, RUTH-inhibitor/ARB as tolerated # Chronic Atrial Fibrillation - Hold home metoprolol given hypotension - Continue home apixaban # Gout - Continue home allopurinol # Obstructive Sleep Apnea - May use home CPAP # Morbid Obesity - BMI 45.5 kg/m2 # History of Asbestosis - Outpatient follow-up Andry Phipps M.D.
[2023-02-23 16:34] LABS: Hepatitis B Surface Ab - Quant 7.88 mIU/mL (<8.0); Hepatitis B surface AG Interp. Nonreactive (Nonreactive)
--- NOTE | 2023-02-23 18:28 | EKG ---
Test Date: 2023-02-22 Test Time: 14:13:19 Claims Assistant: ANTONI MEASUREMENT RESULTS: Intervals: Rate: 93 DC: QRSD: 98 QT: 360 QTc: 447 [place]: P: DC: QRS: 71 T: -5 INTERPRETIVE STATEMENTS: Atrial fibrillation Anteroseptal infarct, age undetermined Abnormal ECG Compared to ECG 02/11/2023 09:50:45 Ventricular premature complex(es) no longer present Myocardial infarct finding still present Electronically Signed On 02-23-23 18:26:10 CDT by London Duron
[2023-02-23] MEDS: HYDROCORTISONE 10 MG TAB PO SCH (20:28)
[2023-02-23] MEDS: allopurinoL 100 MG TAB PO SCH (20:28)
[2023-02-23] MEDS: ATORVASTATIN 10 MG TAB PO SCH (20:28)
--- NOTE | 2023-02-23 20:46 | RAD REPORT ---
EXAM DESCRIPTION: US - Extrem Venous W Compress Eduardo - 02/23/2023 8:38 pm CLINICAL HISTORY: elevated ddimer Bilateral leg edema and swelling. COMPARISON: <Comparisons> TECHNIQUE: Real-time sonographic interrogation of the left and right lower extremity deep venous sys tems was performed. FINDINGS: Normal compressibility, flow augmentation, phasic flow and spontaneous flow is identified in both the left and right lower extremity deep venous systems. IMPRESSION: No sonographic evidence of left or right lower extremity deep venous thrombosis.
[2023-02-23] MEDS ORDERED: HOME MED 1 EA UNK (Simvastatin [Simvastatin] 20 MG Tablet) PO SCH (21:00)
[2023-02-23] MEDS ORDERED: NA CHLORIDE 0.9% 1,000 ML IV PRN (21:55)
[2023-02-23] MEDS ORDERED: MANNITOL 25% 12.5 GM/50 ML VIAL IV PRN (21:55)
[2023-02-23] MEDS ORDERED: EPOETIN ALFA 10,000 UNIT/ML VIAL IV SCH (22:00)
[2023-02-23] MEDS ORDERED: ALBUMIN HUMAN 25% 50 ML IV SCH (22:00)
[2023-02-24] MEDS: ASPIRIN 81 MG CHEWABLE TABLET PO SCH (08:27)
[2023-02-24] MEDS: MIDODRINE HCL 5 MG TABLET PO SCH ×3 (08:27→22:23)
[2023-02-24] MEDS: HYDROCORTISONE 10 MG TAB PO SCH ×2 (08:28→22:24)
[2023-02-24] MEDS: APIXABAN 2.5 MG TABLET PO SCH (08:28)
[2023-02-24 08:57] LABS: Absolute Lymphocytes (CBC) 0.7 K/uL (0.7-4.9); Hematocrit 44.6 % (39.6-49.0); Lymphocytes % 4.1 % (15.3-44.8); MPV 8.5 fL (7.6-11.3); Platelets 203 thou/uL (152-406); RBC Red Blood Cell Count 5.25 M/uL (4.33-5.43)
[2023-02-24 09:05] LABS: Albumin 2.4 g/dL (3.4-5.0); Bilirubin Direct 0.3 mg/dL (0-0.2); Bilirubin Total 0.6 mg/dL (0.2-1.0); Potassium 4.9 mEq/L (3.5-5.1); Protein, Total 6.1 g/dL (6.4-8.2)
--- NOTE | 2023-02-24 11:11 | P.PN ---
Date of Service: 02/24/23 Vital Signs Temp Pulse Resp BP Pulse Ox 97.8 F 98 H 16 90/71 99 02/24/23 08:00 02/24/23 08:00 02/24/23 08:00 02/24/23 08:00 02/24/23 08:00 Medications Acetaminophen (Acetaminophen 325 Mg Tablet) 650 mg PO Q6H PRN PRN Reason: TEMP > 100.4' F Allopurinol (Allopurinol 100 Mg Tab) 100 mg PO BEDTIME [facility] Last Admin: 02/23/23 20:28 Dose: 100 mg Apixaban (Apixaban 2.5 Mg Tablet) 2.5 mg PO BID [facility] Last Admin: 02/24/23 08:28 Dose: 2.5 mg Aspirin (Aspirin 81 Mg Chewable Tablet) 81 mg PO DAILY [facility] Last Admin: 02/24/23 08:27 Dose: Not Given Atorvastatin Calcium (Atorvastatin 10 Mg Tab) 10 mg PO BEDTIME [facility] Last Admin: 02/23/23 20:28 Dose: 10 mg Epoetin Wes (Epoetin Wes 10,000 Unit/Ml Vial) 10,000 unit IV EVERY HD [facility] Heparin Sodium (Porcine) (Heparin 1,000 Unit/Ml Vial) 6,000 unit IV EVERY HD PRN PRN Reason: AFTER EACH Hydrocortisone (Hydrocortisone 10 Mg Tab) 20 mg PO BID [facility] Last Admin: 02/24/23 08:28 Dose: 20 mg Albumin Human (Albumin 25%) 50 mls @ 100 mls/hr IV EVERY HD AY[facility] Mannitol (Mannitol 25% 12.5 Gm/50 Ml Vial) 12.5 gm IV EVERY HD PRN PRN Reason: Titrate to SBP (MUST DEFINE) Midodrine (Midodrine Hcl 5 Mg Tablet) 5 mg PO TID [facility] Last Admin: 02/24/23 08:27 Dose: 5 mg Ondansetron HCl (Ondansetron 4 Mg/2 Ml Vial) 4 mg IV Q6HP PRN PRN Reason: NAUSEA / VOMITING Sodium Chloride (Flush Normal Saline 10 Ml) 10 ml IV BID [facility] Last Admin: 02/24/23 08:28 Dose: 10 ml Tramadol HCl (Tramadol Hcl 50 Mg Tab) 50 mg PO TID PRN PRN Reason: Pain scale 8-10 (Severe) Assessment/ Plan: Nephrology No dyspnea No chest pain feels he is back to his baseline No acute events overnight Vitals, medications, blood work and imaging reviewed in the chart. General: In no apparent distress, Oriented x3, Cooperative HEENT: Atraumatic Neck: Supple Respiratory: Normal air movement Cardiovascular: No edema, Regular rate/rhythm Gastrointestinal: Soft and benign, Non-distended Musculoskeletal: No clubbing, No contractures Integumentary: No rashes, No cyanosis Neurological: Normal speech Laboratory Data (last 24 hrs) 02/22/23 02/22/23 14:16 14:16 WBC 14.10 H Hgb 15.8 Hct 50.0 H Plt Count 205 Sodium 131 L Potassium 4.2 BUN 53 H Creatinine 11.50 H Glucose 101 Magnesium 2.3 Total Bilirubin 0.8 AST 31 ALT 47 Alkaline Phosphatase 130 H Imagings Data: EXAM DESCRIPTION: RADChest Single View02/22/2023 2:13 pm CLINICAL HISTORY: hypotension COMPARISON: Chest Single View dated 02/11/2023; Chest Single View dated 11/06/2022; Chest Single View dated 10/28/2022; Chest Single View dated 08/01/2022 TECHNIQUE: Portable AP view of the chest. FINDINGS: Decreased inspiratory effort limits evaluation. The lungs are clear. No pneumothorax or effusion. The cardiomediastinal contours are unremarkable. IMPRESSION: No acute cardiopulmonary process. EXAM DESCRIPTION: CT - Head Brain Wo Cont - 02/22/2023 5:50 pm CLINICAL HISTORY: AMS COMPARISON: Head Brain Wo Cont dated 11/06/2022; Ct Stroke Brain Wo Cont dated 12/16/2015 TECHNIQUE: Noncontrast head CT images were obtained without IV contrast. Multiplanar reformats were generated and reviewed. All CT scans are performed using dose optimization technique as appropriate and may include automated exposure control or mA/KV adjustment according to patient size. FINDINGS: No intracranial hemorrhage, mass, or edema. Midline structures are unremarkable. Stable ventricular caliber with mild diffuse parenchymal volume loss. Subinsular foci of hypoattenuation are stable, may suggest small chronic infarcts. [place]-white matter differentiation is otherwise preserved, without evidence of acute infarct. No abnormal extra-axial fluid collections. Mastoid air cells and visualized portions of the paranasal sinuses are clear. No acute bony findings. IMPRESSION: No evidence of an acute intracranial process. Stable subinsular foci of hypoattenuation as above. [id number] EXAM DESCRIPTION: CT - Chest For Pe Angio - 02/24/2023 4:37 pm CLINICAL HISTORY: elevated d-dimer COMPARISON: Chest Abd Pelvis Wo Con dated 10/28/2022; CTANGIO CHEST FOR PE dated 09/04/2008; Extrem Venous W Compress Eduardo dated 02/23/2023 TECHNIQUE: Dynamically enhanced axial 3 mm thick images of the chest were obtained during administration of <100> mL Isovue 370 IV contrast. Coronal and oblique reconstruction images were generated and reviewed. Exam utilizes a protocol for optimal evaluation of pulmonary arterial tree. Maximum intensity projections 3D imaging was utilized All CT scans are performed using dose optimization technique as appropriate and may include automated exposure control or mA/KV adjustment according to patient size. FINDINGS: Chest Wall: No suspicious thyroid nodules or pathologic lymphadenopathy. Lungs: No acute abnormality. Pleura: No significant effusions or pneumothorax. Mediastinum/zev: No pathologic lymphadenopathy. Pulmonary arteries/Aorta: Positive for pulmonary embolism. There is thrombus within the segmental pulmonary artery is in the lower lobes bilaterally. The upper lobes are not as well assessed due to motion. No aortic aneurysm. Heart: No significant pericardial effusion. Cardiomegaly. Multi-vessel coronary artery disease. Flattening of the interventricular septum. Upper abdomen: Numerous renal lesions of varying complexity but which are not well assessed due to streak artifact, body habitus, and technique. Bones: No acute abnormality. Bridging osteophytes in the spine. IMPRESSION: Positive for pulmonary embolism with segmental emboli in the lower lobes bilaterally. The overall clot burden is mild to moderate. Flattening of the interventricular septum can indicate right heart strain. Conclusions/Impression: ESRD on HD -HD TIW TTS -Acute HD today Hyponatremia -HD TIW Chronic Hypotension Transient hypotension post HD -Continue Midodrine -IVF bolus prn ZEV -CPAP qhs Hypoalbuminemia -Continue Nepro Gout -Continue Allopurinol Hospitalist note reviewed Addendum: Case reviewed with Dr. Phipps. CTA demonstrates PE with . IV heparin started. Plan for transfer. Greater than 30min patient care.
--- NOTE | 2023-02-24 15:34 | P.PN ---
Subjective Date of Service: 02/24/23 Chief Complaint: Hypotension. No acute events overnight. His blood pressure has remained soft, but stable. He is alert and oriented x 3. He reports generalized weakness - will consult PT services. His WBC count is up-trending, but suspect secondary to hydrocortisone. He has no evidence of infection. He denies any chest pain, palpitations, or shortness of breath. Review of Systems 10-point ROS is otherwise unremarkable General: Weakness (generalized) Physical Examination - Vital Signs Temperature: 97.5 F Blood Pressure: 110/63 Pulse: 93 Respirations: 16 Pulse Ox (%): 99 Assessment And Plan - Plan - Physical Exam General: Alert, In no apparent distress, Oriented x3 HEENT: Atraumatic, Mucous membr. moist/pink, Sclerae nonicteric Neck: JVD not distended Respiratory: Clear to auscultation bilaterally, Normal air movement Cardiovascular: Regular rate/rhythm, No murmurs, Edema (1+ BLE) Gastrointestinal: Normal bowel sounds, Soft, Non-distended, No tenderness Musculoskeletal: No clubbing Integumentary: No rashes Neurological: Normal speech, Normal affect # Transient Hypotension following Hemodialysis # Likely Steroid-Induced Leukocytosis Blood pressure remains soft, but stable. He takes midodrine at home, so suspect he may have underlying autonomic dysfunction. - He met 2/4 SIRS criteria with leukocytosis, tachycardia - with no evidence of infection - Chest x-ray = "no acute cardiopulmonary process" - CT head = "No evidence of an acute intracranial process." - Continue home midodrine - Infectious evaluation pending - blood cultures with no growth to date # Adrenal Insufficiency Can certainly contribute to hypotension; however, labs are not suggestive of adrenal crisis - Continue home hydrocortisone # [facility] - Nephrology consulted and spoke with Dr. Franklin - recommendations appreciated - Renally dose medications # Likely Demand Ischemia (Type II Non-ST Segment Elevation Myocardial Infarction) # Dyslipidemia - Evaluation thus far: - EKG: without STEMI criteria, trend - Serial troponin: 72.6 -> 77.4 -> 69.4 - Ordered transthoracic echocardiogram - D-dimer = 2688 - Bilateral lower extremity Doppler = "no sonographic evidence of left or right lower extremity deep venous thrombosis." - Ordered V/Q scan, but could not obtain due to body habitus - Spoke with Dr. Franklin, who cleared him for CT chest angiogram. He will time hemodialysis sessions accordingly - Management plan: - Consult Cardiology - recommendations appreciated - Continue aspirin, simvastatin - If CAD confirmed, plan to start beta-saige, RUTH-inhibitor/ARB as tolerated # Chronic Atrial Fibrillation - Hold home metoprolol given hypotension - Continue home apixaban # Gout - Continue home allopurinol # Obstructive Sleep Apnea - May use home CPAP # Morbid Obesity - BMI 45.5 kg/m2 # History of Asbestosis - Outpatient follow-up Andry Phipps M.D.
--- NOTE | 2023-02-24 16:56 | RAD REPORT ---
EXAM DESCRIPTION: CT - Chest For Pe Angio - 02/24/2023 4:37 pm CLINICAL HISTORY: elevated d-dimer COMPARISON: Chest Abd Pelvis Wo Con dated 10/28/2022; CTANGIO CHEST FOR PE dated 09/04/2008; Extrem Ve nous W Compress Eduardo dated 02/23/2023 TECHNIQUE: Dynamically enhanced axial 3 mm thick images of the chest were obtained during administra tion of <100> mL Isovue 370 IV contrast. Coronal and oblique reconstruction images were generated and reviewed. Exam utilizes a protocol for optimal evaluation of pulmonary arterial tree. Maximum intensity projections 3D imaging was utilized All CT scans are performed using dose optimization technique as appropriate and may include automated exposure control or mA/KV adjustment according to patient size. FINDINGS: Chest Wall: No suspicious thyroid nodules or pathologic lymphadenopathy. Lungs: No acute abnormality. Pleura: No significant effusions or pneumothorax. Mediastinum/zev: No pathologic lymphadenopathy. Pulmonary arteries/Aorta: Positive for pulmonary embolism. There is thrombus within the segmental pul monary artery is in the lower lobes bilaterally. The upper lobes are not as well assessed due to wang on. No aortic aneurysm. Heart: No significant pericardial effusion. Cardiomegaly. Multi-vessel coronary artery disease. Merlin ening of the interventricular septum. Upper abdomen: Numerous renal lesions of varying complexity but which are not well assessed due to st reak artifact, body habitus, and technique. Bones: No acute abnormality. Bridging osteophytes in the spine. IMPRESSION: Positive for pulmonary embolism with segmental emboli in the lower lobes bilaterally. Th e overall clot burden is mild to moderate. Flattening of the interventricular septum can indicate rig ht heart strain. Discussed with Dr. Phipps by Dr. Bell at 1650 on 02/24/23
[2023-02-24] MEDS: ALBUMIN HUMAN 25% 100 ML IV ONE ×2 (17:00→21:50)
[2023-02-24] MEDS ORDERED: HEPARIN/D5W 25,000 UNIT/500 ML BAG IV PRN (19:00)
[2023-02-24] MEDS ORDERED: EPOETIN ALFA-EPBX 10,000 UNIT/ML VIAL ONE (19:26)
--- NOTE | 2023-02-24 19:33 | PN ---
Date of Progress Note: 02/24/2023 Subjective: Seen by bedside. Blood pressure is slightly better. Patient is slightly short of breat h. Review of Systems: Mild chest discomfort with shortness of breath. No nausea, vomiting, diarrhea. No abdominal pain. No dysuria, polyuria, or urgency. All other systems reviewed are negative. Physical Examination: Vital Signs: Temperature is 97.5, heart rate is 93, breathing at 16, blood pressure 110/69, saturati ng 99% with oxygen. General: A pleasant middle-aged male, morbidly obese, no apparent distress. Head and Neck: Pupils are equal, reactive to light. Intact eye movements. No JVD. No cervical lym phadenopathy. Neck is supple. Thyroid is not enlarged. Lungs: Decreased breathing sounds. No accessory muscle use or muscle retraction. Heart: Regular rate and rhythm. No extra sounds. Abdomen: Soft, nontender. Bowel sounds positive. No organomegaly. No masses or hernia. No rigidi ty or rebound. Extremities: No clubbing or cyanosis. Intact pulses. Skin: No rash. Neurologic: Alert, awake, and oriented x3. No acute focal deficits appreciated. Investigations: Troponins 77 and then 69. BUN 64, creatinine 14. Hemoglobin is 14.2. Assessment And Recommendations: 1.Pulmonary embolism with significant hypotension on arrival and on echo, there is a dilation of the right ventricle, but normal function. There are signs of right ventricle strain, also the left vent ricle is hyperdynamic. I discussed the findings with Dr. Phipps and recommended transfer to the [facility] for possible catheter based thrombolytics. 2.Elevated troponin. This is due to the pulmonary embolism. Patient is already on IV heparin to be continued to keep PTT therapeutic and the plan and recommendation as above. 3.End-stage renal disease, on hemodialysis. SR/MODL Voice ID: [id number] Report ID: [id number]
[2023-02-24 22:02] LABS: Absolute Lymphocytes (CBC) 0.6 K/uL (0.7-4.9); Hematocrit 48.9 % (39.6-49.0); MCV 85.8 fL (80-100); MPV 8.5 fL (7.6-11.3); Platelets 247 thou/uL (152-406); RBC Red Blood Cell Count 5.69 M/uL (4.33-5.43)
[2023-02-24 22:07] LABS: Protime INR 1.2
[2023-02-24] MEDS: ATORVASTATIN 10 MG TAB PO SCH (22:24)
[2023-02-24] MEDS: allopurinoL 100 MG TAB PO SCH (22:24)
[2023-02-24 22:38] VITALS: O2SAT 100
[2023-02-25 00:09] VITALS: TEMP 97.9
--- NOTE | 2023-02-25 04:34 | P.DS ---
Admission Date: 02/22/23 Discharge Date: 02/25/23 Disposition: TRANSFER TO [facility] Discharge Condition: FAIR Reason for Admission: Hypotension. Consultations: Cardiology Nephrology Procedures: Echocardiogram 02/24/2023 Per cardiology dilation of the right ventricle, normal function. There is signs of right ventricle strain, also the left ventricle is hyperdynamic. See full report for details. CT chest 02/24/2023 FINDINGS: Chest Wall: No suspicious thyroid nodules or pathologic lymphadenopathy. Lungs: No acute abnormality. Pleura: No significant effusions or pneumothorax. Mediastinum/zev: No pathologic lymphadenopathy. Pulmonary arteries/Aorta: Positive for pulmonary embolism. There is thrombus within the segmental pulmonary artery is in the lower lobes bilaterally. The upper lobes are not as well assessed due to motion. No aortic aneurysm. Heart: No significant pericardial effusion. Cardiomegaly. Multi-vessel coronary artery disease. Flattening of the interventricular septum. Upper abdomen: Numerous renal lesions of varying complexity but which are not well assessed due to streak artifact, body habitus, and technique. Bones: No acute abnormality. Bridging osteophytes in the spine. IMPRESSION: Positive for pulmonary embolism with segmental emboli in the lower lobes bilaterally. The overall clot burden is mild to moderate. Flattening of the interventricular septum can indicate right heart strain. Discussed with Dr. Phipps by Dr. Bell at 1650 on 02/24/23 Bilateral lower extremity venous Doppler 02/23/2023 FINDINGS: Normal compressibility, flow augmentation, phasic flow and spontaneous flow is identified in both the left and right lower extremity deep venous systems. IMPRESSION: No sonographic evidence of left or right lower extremity deep venous thrombosis. CT head without contrast 02/22/2023 FINDINGS: No intracranial hemorrhage, mass, or edema. Midline structures are unremarkable. Stable ventricular caliber with mild diffuse parenchymal volume loss. Subinsular foci of hypoattenuation are stable, may suggest small chronic infarcts. Merritt-white matter differentiation is otherwise preserved, without evidence of acute infarct. No abnormal extra-axial fluid collections. Mastoid air cells and visualized portions of the paranasal sinuses are clear. No acute bony findings. IMPRESSION: No evidence of an acute intracranial process. Stable subinsular foci of hypoattenuation as above. Chest x-ray 02/22/2023 FINDINGS: Decreased inspiratory effort limits evaluation. The lungs are clear. No pneumothorax or effusion. The cardiomediastinal contours are unremarkable. IMPRESSION: No acute cardiopulmonary process. Brief History of Present Illness: Patient is a 67-year-old male with a past medical history significant for ESRD, hypertension, morbid obesity, gout, GERD, hyperlipidemia, chronic A-fib, ZEV who presents with complaint of hypotension. Patient currently alert and oriented x1 and confused. Patient unable to provide any history. I called spouse who informed me that patient went to dialysis today but was unable to get the full dose of dialysis due to low blood pressure. Dialysis was able to remove 2.5L due to low blood pressure as opposed to the 5 L that they normally remove Spouse reported that patient on getting home but was not able to get out of the car and patient became confused. Patient's spouse decided to call EMS and patient was been taken to another hospital when EMS made he decision to bring patient to the nearest hospital due to low blood pressure. No other signs and symptoms reported. Symptoms are aggravated or relieved by nothing. Patient currently resting in bed, and lethargic Hospital Course: Patient was admitted for hypotension after dialysis, during his hospitalization he was found to have an elevated D-dimer subsequently a CT chest angiogram was performed which showed pulmonary embolism with low to moderate clot burden as well as signs of possible heart strain. Echocardiogram was performed which revealed right heart strain. Cardiology recommended transfer for higher level of care, evaluation for possible catheter directed therapy. Patient was exc epted by [facility] physicians, but is signed this morning. Patient be transferred to [facility] for evaluation for possible catheter directed therapy for PE. Vital Signs/Physical Exam: Temp Pulse Resp BP Pulse Ox 97.9 F 92 H 18 118/74 100 02/25/23 00:00 02/25/23 01:00 02/25/23 01:00 02/25/23 01:00 02/25/23 01:00 General: Alert, In no apparent distress, Oriented x3, Obese HEENT: Atraumatic, PERRLA, EOMI Neck: Supple, JVD not distended Respiratory: Clear to auscultation bilaterally, Normal air movement Cardiovascular: Regular rate/rhythm, Normal S1 S2 Capillary refill: <2 Seconds Gastrointestinal: Normal bowel sounds, No tenderness Musculoskeletal: No tenderness Integumentary: No rashes Neurological: Normal speech, Normal tone, Normal affect Laboratory Data at Discharge: WBC 15.80 thou/uL (4.3-10.9) H 02/24/23 21:35 Hgb 15.3 g/dL (13.6-17.9) 02/24/23 21:35 Hct 48.9 % (39.6-49.0) 02/24/23 21:35 Plt Count 247 thou/uL (152-406) 02/24/23 21:35 PT 13.2 SECONDS (9.5-12.5) H 02/24/23 21:35 INR 1.20 02/24/23 21:35 APTT 70.7 SECONDS (24.3-36.9) H 02/25/23 03:17 Sodium 133 mEq/L (136-145) L 02/24/23 08:35 Potassium 4.9 mEq/L (3.5-5.1) 02/24/23 08:35 BUN 64 mg/dL (7-18) H 02/24/23 08:35 Creatinine 14.00 mg/dL (0.70-1.30) H 02/24/23 08:35 Glucose 104 mg/dL (74-106) 02/24/23 08:35 Phosphorus 5.9 mg/dL (2.5-4.9) H 02/22/23 20:34 Magnesium 2.3 mg/dL (1.6-2.4) 02/22/23 20:34 Total Bilirubin 0.6 mg/dL (0.2-1.0) 02/24/23 08:35 AST 26 U/L (15-37) 02/24/23 08:35 ALT 47 U/L (16-61) 02/24/23 08:35 Alkaline Phosphatase 119 U/L (45-117) H 02/24/23 08:35 Triglycerides 104 mg/dL (<150) 02/23/23 08:41 Cholesterol 112 mg/dL (<200) 02/23/23 08:41 HDL Cholesterol 47 mg/dL (40-60) 02/23/23 08:41 Cholesterol/HDL Ratio 2.38 02/23/23 08:41 Home Medications: Cinacalcet HCl [Sensipar*] 1 tab PO BEDTIME 09/02/13 Docusate [Colace Cap*] 1 tab PO BID 09/02/13 Omeprazole [Prilosec] 40 mg PO DAILY 09/02/13 allopurinoL [Zyloprim*] 100 mg PO BEDTIME 09/02/13 Apixaban [Eliquis *] 2.5 mg PO BID 09/26/20 Albuterol Sulfate [Proair Hfa] 2 puff IH Q6HP PRN 01/25/22 L. Acidophilus/Bifido. Longum [Probiotic Pearls Acidophilus] 1 each PO BID 01/25/22 Mesalamine [Pentasa] 4 cap PO BID 01/25/22 Multivitamin [One-Daily Multi-Vitamin] 1 each PO DAILY 01/25/22 Simvastatin 20 mg PO BEDTIME 01/25/22 Tramadol HCl [Ultram] 50 mg PO Q6H 01/25/22 Gabapentin 300 mg PO DAILY #30 cap 08/04/22 Hydrocortisone [Cortef*] 20 mg PO BID #120 tab 08/04/22 Metoprolol Tartrate [Lopressor*] 50 mg PO BID #60 tab 08/04/22 Midodrine HCl [Proamatine*] 5 mg PO TID #90 tab 08/04/22 Followup: Adriel Snyder MD [Primary Care Provider] -
[2023-02-25 05:29] VITALS: BP 141/77
--- NOTE | 2023-02-25 08:07 | ECHO ---
HEIGHT: 5 ft 11 in WEIGHT: 323 lb 6.4 oz DATE OF STUDY: 02/24/[address]: Andry Phipps MD 2-DIMENSIONAL: YES M.MODE: YES DOPPLER: YES COLOR FLOW: YES TDS: YES PORTABLE: YES DEFINITY: BUBBLE STUDY: DIAGNOSIS: ELEVATED TROPONIN CARDIAC HISTORY: CATHERIZATION: SURGERY: PROSTHETIC VALVE: PACEMAKER: MEASUREMENTS (cm) DIASTOLIC (NORMALS) SYSTOLIC (NORMALS) IVSd 1.0 (0.6-1.2) LA Diam 4.6 (1.9-4.0) LVEF 79% LVIDd 3.0 (3.5-5.7) LVIDs 1.6 (2.0-3.5) %FS 46% LVPWd 1.2 (0.6-1.2) Ao Diam 3.6 (2.0-3.7) 2 DIMENSIONAL ASSESSMENT: RIGHT ATRIUM: NORMAL LEFT ATRIUM: ENLARGED RIGHT VENTRICLE: DILATED RIGHT VENTRICLE LEFT VENTRICLE: NORMAL TRICUSPID VALVE: MILD TRICUSPID REGURGITATION MITRAL VALVE: MILD MITRAL REGURGITATION PULMONIC VALVE: NORMAL AORTIC VALVE: NORMAL PERICARDIAL EFFUSION: NONE AORTIC ROOT: NORMAL LEFT VENTRICULAR WALL MOTION: HYPERDYNAMIC (NORMAL) DOPPLER/COLOR FLOW: SEE BELOW COMMENTS: 1. NORMAL LEFT VENTRICULAR EJECTION FRACTION GREATER THAN 70% (HYPERDYNAMIC) WITH NORMAL WALL MOTION 2. LEFT ATRIAL ENLARGEMENT 3. MILD MITRAL REGURGITATION 4. MILD TRICUSPID REGURGITATION 5. DILATED RIGHT VENTRICLE WITH MILD DYSFUNCTION TECHNOLOGIST: JHONY RICE
== END 2023-02-25 04:20 | disposition short-term general hospital (02) | DRG 312 ==
LOC: ER 13:49 → ERHOLD 16:41 → 4TH 18:21 → 3RD-ICU 02-24 20:29
PROVIDERS: ADMIT Internal Medicine; ATTEND Internal Medicine
PROC: 5A09457 Assistance with Respiratory Ventilation, 24-96 Consecutive Hours, Continuous Positive Airway Pressure (ICD-10-PCS; principal; 2023-02-22)
DX: I95.3 Hypotension of hemodialysis (principal); I26.99 Other pulmonary embolism without acute cor pulmonale; N18.6 End stage renal disease; E87.1 Hypo-osmolality and hyponatremia; I48.20 Chronic atrial fibrillation, unspecified; Z68.42 Body mass index [BMI] 45.0-49.9, adult; I12.0 Hypertensive chronic kidney disease with stage 5 chronic kidney disease or end stage renal disease; E27.40 Unspecified adrenocortical insufficiency; E66.01 Morbid (severe) obesity due to excess calories; M10.9 Gout, unspecified; G62.9 Polyneuropathy, unspecified; E78.5 Hyperlipidemia, unspecified; G47.33 Obstructive sleep apnea (adult) (pediatric); K21.9 Gastro-esophageal reflux disease without esophagitis; I25.10 Atherosclerotic heart disease of native coronary artery without angina pectoris; I25.2 Old myocardial infarction; R77.8 Other specified abnormalities of plasma proteins; Z99.2 Dependence on renal dialysis; Z88.1 Allergy status to other antibiotic agents; Z88.8 Allergy status to other drugs, medicaments and biological substances; Z95.9 Presence of cardiac and vascular implant and graft, unspecified; Z99.89 Dependence on other enabling machines and devices; Z79.01 Long term (current) use of anticoagulants; Z90.49 Acquired absence of other specified parts of digestive tract; Z87.891 Personal history of nicotine dependence; Z79.899 Other long term (current) drug therapy
CPT/HCPCS: 36415; 70450; 71045; 71275; 80048; 80053; 80061; 80076; 82140; 82248; 83735; 84100; 84439; 84443; 84484; 85025; 85049; 85379; 85610; 85730; 86706; 87040; 87340; 93005; 93306; 93970; 94660; 94760; 96360; 99285; J1644; J2150; J7040; P9047; Q5106; Q9967

== ENCOUNTER 2023-03-11 13:37 | Emergency (ER) | payer OTHER, MEDICARE ==
[2023-03-11] MEDS ORDERED: NA CHLORIDE 0.9% 500 ML ONE (14:19)
--- NOTE | 2023-03-11 14:28 | RAD REPORT ---
EXAM DESCRIPTION: RAD - Chest Single View - 03/11/2023 2:23 pm CLINICAL HISTORY: hypotension Chest pain. COMPARISON: Chest Single View dated 02/22/2023; Chest Single View dated 02/11/2023; Chest Single View d ated 11/06/2022; Chest Single View dated 10/28/2022 FINDINGS: Portable technique limits examination quality. Mild pulmonary edema. The heart is significantly enlarged. No displaced fractures.Aortic atherosclero sis. IMPRESSION: Mild CHF.
[2023-03-11 15:45] LABS: Absolute Lymphocytes (CBC) 0.6 K/uL (0.7-4.9); Hematocrit 35.6 % (39.6-49.0); Lymphocytes % 6.5 % (15.3-44.8); MCV 86.6 fL (80-100); MPV 8.1 fL (7.6-11.3); Platelets 209 thou/uL (152-406); RBC Red Blood Cell Count 4.11 M/uL (4.33-5.43)
[2023-03-11] MEDS ORDERED: MIDODRINE HCL 5 MG TABLET PO ONE (16:00)
[2023-03-11 16:22] LABS: Albumin 1.8 g/dL (3.4-5.0); Bilirubin Total 1.1 mg/dL (0.2-1.0); Potassium 3.8 mEq/L (3.5-5.1); Protein, Total 5.7 g/dL (6.4-8.2)
[2023-03-11 16:23] LABS: Troponin High Sensitivity 78.3 pg/mL (<58.9)
[2023-03-11 16:47] LABS: C.diff Antigen/Toxin Ag pos : Tox neg (NEG : NEG)
[2023-03-11] MEDS ORDERED: NA CHLORIDE 0.9% 250 ML ONE ×2 (17:03→23:46)
--- NOTE | 2023-03-11 17:56 | RAD REPORT ---
EXAM DESCRIPTION: CT - Head C Spine Cap Wo Con - 03/11/2023 5:38 pm CLINICAL HISTORY: Trauma, head and neck injury. Chest, abdomen and pelvis pain. abdominal pain, diarrhea;Weakness COMPARISON: <Comparisons> TECHNIQUE: CT head without contrast. CT cervical spine without contrast with coronal and sagittal reformatted images. CT chest, abdomen and pelvis without contrast with coronal and sagittal reformatted images of the spi ne. All CT scans are performed using dose optimization technique as appropriate and may include automated exposure control or mA/KV adjustment according to patient size. FINDINGS: CT HEAD WITHOUT CONTRAST: No intracranial hemorrhage, hydrocephalus or extra-axial fluid collection. Mild generalized brain atr ophy is present with mild periventricular and deep white matter chronic microvascular ischemic change s. No areas of brain edema or midline shift. The paranasal sinuses and mastoids are clear. The calvarium is intact. CT CERVICAL SPINE WITHOUT CONTRAST: No fracture or subluxation. Mild cervical degenerative changes. The prevertebral soft tissues are nor mal in thickness. CT CHEST, ABDOMEN, PELVIS WITHOUT CONTRAST: NOTE: Lack of contrast is a significant limitation in the assessment of trauma related findings. Spec ifically, solid organ, vascular and bowel evaluation is significantly limited. Linear opacities are present in the left lung base with a small left pleural effusion, likely atelect asis.No pneumothorax or pericardial/pleural fluid. There is significant enlarged and hyperdense appearance to the left kidney. Both kidneys show multipl e cysts compatible with polycystic kidney disease with several calcified cyst. There is moderate surr ounding left perinephric hemorrhage. No concerning pelvic findings. No fractures. IMPRESSION: There is suspected underlying polycystic kidney disease. There is significant enlargemen t of the left kidney measures 12 x 12 cm with increased density and surrounding moderate perinephric hemorrhage. This likely indicates significant renal and perinephric hemorrhage presumably related to hemorrhage from a cyst.
--- NOTE | 2023-03-11 19:23 | ER ---
Nurse's Notes [facility] Name: Adriel Raya Age: 67 yrs Sex: Male : 1955 Arrival Date: 03/11/2023 Time: 13:37 Bed 3 Private MD: Diagnosis: Hypotension, unspecified;Polycystic kidney, adult type;Hemorrhage, not elsewhere classified Presentation: 03/11 14:04 Chief complaint: EMS states: patient was sent to ER today after calling the [facility] call [facility] professional for hypotension. Yesterday prior to dialysis bp was 78/53. Patient was given midodrine and dialyzed. Today BP was low again at home. Patient is incontinent and had a very large watery stool. (excoriation with bleeding noted to scrotum and periarea while cleaning patient up). Coronavirus screen: Vaccine status: diarrhea. Ebola Screen: No symptoms or risks identified at this time. Initial Sepsis Screen: Does the patient meet any 2 criteria? RR > 20 per min. Systolic BP < 90 mmHg. HR > 90 bpm. Yes Does the patient have a suspected source of infection? Yes: Skin breakdown/wound Other: watery diarrhea. Risk Assessment: Do you want to hurt yourself or someone else? Patient reports no desire to harm self or others. Onset of symptoms was March 10, 2023. 14:04 Method Of Arrival[place] [facility] [place] 14:04 Acuity: SAM 2 hb Triage Assessment: 14:09 General: Appears uncomfortable, obese, unkempt, Behavior is cooperative, appropriate [facility] [place] for age, anxious, restless, Reports pain to scrotum. Pain: Complains of pain in scrotum. Neuro: Level of Consciousness is awake, alert, Oriented to person, situation. Cardiovascular: Patient's skin is warm and dry. Cardiovascular: AV fistula to LFA with some bleeding noted. EMS applied gauze and a slight pressure dressing with coban. . Respiratory: Airway is patent Respiratory effort is even, unlabored. Respiratory: GI: Stools are reported to be loose. : excoriation to scrotum and periarea with some bleeding noted. Reports pain scrotum. Derm: Wound noted right lower quadrant Other: skin tear. severe excoriation to scrotum and periarea with some bleeding noted. Patient had been incontinent of stool before arrival. Pericare provided. Historical: - Allergies: 14:09 Augmentin; me1 14:09 Norvasc; me1 - Home Meds: 14:09 allopurinol 100 mg Oral tablet once [Active]; Eliquis 2.5 mg Oral tablet 2 times per me1 day [Active]; famotidine 20 mg Oral tablet once [Active]; fludrocortisone 0.1 mg Oral tablet once [Active]; gabapentin 300 mg Oral capsule once [Active]; hydrocortisone 10 mg Oral tablet 2 times per day [Active]; midodrine 5 mg Oral tablet 3 times per day [Active]; omeprazole 40 mg Oral capsule,delayed release (e.c.) once [Active]; Pentasa 500 mg Oral capsule, extended release 2 times per day [Active]; Proair Digihaler 90 mcg/actuation inhalation Aerosol Powder, Breath Activ.with Sensor every 6 hours [Active]; simvastatin 20 mg Oral tablet 1 tab every day at bedtime [Active]; tramadol 50 mg Oral tablet every 6 hours [Active]; - PMHx: 14:09 Dialysis; Diverticulitis; Hypertension; me1 - PSHx: 14:09 Appendectomy; Left arm dialysis fistula; me1 - Immunization history:: Adult Immunizations unknown. - Social history:: Smoking status: unknown. Screenin:02 [facility] ED Fall Risk Assessment (Adult) History of falling in the last 3 months, db including since admission No falls in past 3 months (0 pts) Confusion or Disorientation No (0 pts) Intoxicated or Sedated No (0 pts) Impaired Gait No (0 pts) Mobility Assist Device Used No (0 pt) Altered Elimination Yes (1 pt) Score/Fall Risk Level 3 or more points = High Risk Oriented to surroundings, Maintained a safe environment. Abuse screen: Denies threats or abuse. Denies injuries from another. Nutritional screening: No deficits noted. Tuberculosis screening: No symptoms or risk factors identified. Assessment: 14:20 Reassessment: PATIENT CLEANED BY STAFF. INCONTINENT OF STOOL. PATIENT TOO WEAK TO WALK. db DIALYSIS PORT TO LEFT ARM. 14:20 Reassessment: PATIENT REPORT RECEIVED FROM YOEL RODGERS. General: Appears in no db apparent distress. comfortable, unkempt, Behavior is calm, cooperative. Neuro: Level of Consciousness is awake, alert, obeys commands, Oriented to person, place, time, situation. Respiratory: Airway is patent Respiratory effort is even, unlabored, Respiratory pattern is regular, symmetrical. 14:25 Reassessment: SPOKE TO CHARGE JAMEY AND REQUEST TO MOVE PATIENT DUE TO LOW BP, UNABLE db TO OBTAIN IV AND PATIENT CARE. 14:28 Reassessment: PATIENT REFUSED CATHETER. STATES DOES NOT MAKE URINE. IS ON DIALYSIS. db 14:35 Reassessment: unable to obtain IV access x 2 nurses. notified provider Page and charge db nurse. patient BP 65/39. 14:39 Reassessment: sepsis alert. db 15:30 Reassessment: pt refused lab draw. iw 16:18 Reassessment: Patient appears in no apparent distress at this time. at bedside, pt iw Bp up to 82/55, receiving 500 mL Bolus to right arm. 18:00 Reassessment: Patient appears in no apparent distress at this time. Garrett Page at iw bedside to set up for central line placement. 18:44 Reassessment: Dr Anand at bedside to assess for central line placement. iw 21:54 Reassessment: report given to Ning DIALLO [facility] jennifer. rv Vital Signs: 13:54 BP 65 / 39; Pulse 92; Resp 18; Pulse Ox 99% on R/A; db 14:03 BP 66 / 47; Pulse 102; Resp 18; Pulse Ox 96% on R/A; db 14:04 BP 68 / 42; Pulse 109; Resp 22; Temp 98.2(O); Pulse Ox 99% on 3 lpm NC; Height 5 ft. 11 me1 in. ; 14:30 BP 76 / 47; Pulse 106; Resp 18; Pulse Ox 95% on R/A; db 14:35 BP 76 / 47; Pulse 112; mb9 16:01 BP 91 / 71; Pulse 105; Resp 16 S; iw 17:00 BP 84 / 58; Pulse 104; Resp 18; Pulse Ox 96% on R/A; iw 18:44 BP 110 / 48; Pulse 110; Resp 18; Pulse Ox 96% on R/A; iw 18:55 BP 120 / 78; Pulse 118; Resp 19; Pulse Ox 96% on R/A; iw 19:01 BP 94 / 82; Pulse 106; Resp 19; Pulse Ox 95% on R/A; Weight 148.7 kg (R); iw 19:45 BP 96 / 73; Pulse 95; Resp 15; Pulse Ox 99% on R/A; rv 20:01 BP 163 / 86; Pulse 94; Resp 18; Pulse Ox 95% on R/A; rv 20:12 BP 168 / 101; Pulse 81; Resp 18; Pulse Ox 95% ; rv 23:00 BP 135 / 77; Pulse 100; Resp 18; Pulse Ox 95% ; rv 23:45 BP 97 / 78; Pulse 102; Resp 20; Temp 98; Pulse Ox 96% on R/A; rv 19:01 Body Mass Index 45.72 (148.70 kg, 180.34 cm) iw [place] Coma Score: 20:01 Eye Response: spontaneous(4). Motor Response: obeys commands(6). Verbal Response: rv oriented(5). Total: 15. 21:00 Eye Response: spontaneous(4). Motor Response: obeys commands(6). Verbal Response: rv oriented(5). Total: 15. 22:00 Eye Response: spontaneous(4). Motor Response: obeys commands(6). Verbal Response: rv oriented(5). Total: 15. 23:00 Eye Response: spontaneous(4). Motor Response: obeys commands(6). Verbal Response: rv oriented(5). Total: 15. 23:57 Eye Response: spontaneous(4). Motor Response: obeys commands(6). Verbal Response: rv oriented(5). Total: 15. ED Course: 13:43 Patient arrived in ED. eb 13:45 Garrett Coulter PA is PHCP. cp 13:45 Steve Anand MD is Attending Physician. cp 14:07 Tiffany Maki, YOEL is Primary Nurse. db 14:08 Triage completed. me1 14:09 Arm band placed on Patient placed in an exam room. me1 14:20 Patient has correct armband on for positive identification. Bed in low position. Call db light in reach. Side rails up X2. Client placed on continuous cardiac and pulse oximetry monitoring. NIBP monitoring applied. Warm blanket given. 14:20 EKG done, by ED staff. aw1 14:25 Chest Single View XRAY In Process Unspecified. EDMS 14:25 Missed attempt(s): 22 gauge in right forearm. Bleeding controlled, band aid applied, db catheter tip intact. 14:30 Missed attempt(s): 22 gauge in right antecubital area. db 14:35 Missed attempt(s): 22 gauge in right hand. BY GAL LAMAR RN. Bleeding controlled, band db aid applied, catheter tip intact. 15:30 Inserted saline lock: 20 gauge in right forearm, using aseptic technique. ,using nj1 aseptic technique. Ultrasound guided. Catheter tip well visualized within vasculature during placement. 15:37 Primary Nurse role handed off by Tiffany Maki RN iw 15:37 Eden Villavicencio, RN is Primary Nurse. iw 16:23 Notified Nurse Practitioner and/or Physician Lead Manufacturing Engineer of a critical lab result(s), mb9 troponin 78.3. 17:39 CT Traumagram (Head C Spine CAP wo con) In Process Unspecified. EDMS 18:02 Provided Education on: Procedure Consent. Procedure consent explained by staff, iw explained by physician, signed by spouse. 18:45 T\T\S collected, blood band applied to patient. iw 18:50 Assisted provider with central line placement. Set up central line tray. Triple lumen iw line placed in right femoral. Line placed by Eden Villavicencio RN Placement verified by blood return, Dressed with Tegaderm, Blood was collected. Patient tolerated well. Before procedure, did Practitioner(s) obtain informed consent? Yes. Patient \T\ family education about procedure, CLABSI prevention and S/S of infection? Yes. Time-out/Briefing performed prior to start of procedure? Yes. Was handwashing/sanitizing done immediately prior to procedure? Yes. Was patient positioned to in a way to prevent air embolism? Yes. Was procedure site sterilized? Yes, with Was the site allowed to dry? Yes. Was local anesthetic and/or sedation utilized? Yes. During the procedure, did the Practitioner(s) maintain a sterile field? Yes. Were unused ports clamped during insertion? Yes. Was a 2nd qualified MD obtained after 3 unsuccessful insertion attempts? No. Was blood aspirated from each lumen? Yes. After the procedure, did the Practitioner(s) clean the site and apply a sterile dressing? Yes. 19:02 initiated a transfer with Miguel Angel from the [facility]. eb 19:17 Miguel Angel with [facility] stated he they didn't have any available ICU beds, will initiate for [facility]. 19:20 Called Miguel Angel at [facility] to cancel transfer due to Pt request. Emmy took the cancellation wm request \T\ 193. 19:37 Initiated transfer to [facility], spoke with Haydee. wm 20:20 [facility] declined due to capacity per Haydee. wm 20:28 Frandy initiated transfer to [facility], spoke with Lesa. wm 21:16 Pt accepted for transfer to [facility] Andrea RM:821by Ashley Amador \T\ 2113 per Lesa Bob. 21:28 EMS denied ability to transport, no truck available for 2 hours per Marcus. wm 21:30 [facility] accepted Pt for transport with an ETA \T\ 2335. wm Administered Medications: 15:22 Drug: midodrine 5 mg Route: PO; iw 16:40 Follow up: Response: No adverse reaction iw 15:40 Drug: NS 0.9% IV 500 ml Route: IV; Rate: bolus; Site: right upper arm; iw 23:58 Follow up: IV Status: Completed infusion rv 17:00 Drug: NS 0.9% IV 250 ml Route: IV; Rate: bolus; Site: right forearm; iw 23:58 Follow up: IV Status: Completed infusion rv 19:31 Drug: Norepinephrine IV 0.1 mcg/kg/min Route: IV; Rate: calculated rate; Site: right rv forearm; 23:58 Follow up: IV Status: Infusion continued upon transfer rv 20:00 Drug: metroNIDAZOLE IVPB 500 mg Volume: 100 ml; Route: IVPB; Infused Over: 30 mins; rv Site: right femoral; 23:58 Follow up: Response: No adverse reaction; IV Status: Completed infusion rv 20:11 Not Given (Duplicate Order): metroNIDAZOLE PO 1 grams PO once rv Medication: 15:00 VIS not applicable for this client. iw Outcome: 19:22 ER care complete, transfer ordered by MD. cp 23:59 Patient left the ED. rv Signatures: Dispatcher [employer] EDEden Goldsmith RN RN iw Garrett Coulter PA PA cp Jamey Lr RN RN Petra Hadley Ronaldo, RN RN rv Ceci Bazan Tiffany Maki RN RN db Breneman, Mary Beth RN RN mb9 Josie Olivia RN RN nj1 Citlaly Ortega aw1 Miriam Bergman RN RN me1 Corrections: (The following items were deleted from the chart) 15:36 14:04 Acuity: SAM 3 me1 hb 19:23 19:17 Called Miguel Angel at [facility] to cancel transfer due to Pt request. wm wm 19:34 19:20 Called Miguel Angel at [facility] to cancel transfer due to Pt request. wm wm 19:47 19:37 Initiated transfer to [facility], spoke with wm
--- NOTE | 2023-03-11 19:23 | EDPHYS ---
Physician Documentation [facility] Name: Adriel Raya Age: 67 yrs Sex: Male : 1955 Arrival Date: 03/11/2023 Time: 13:37 Bed 3 Private MD: ED Physician Steve Anand HPI: 03/11 13:50 This 67 yrs old Black Male presents to ER via EMS with complaints of Hypotension. cp 13:50 The patient's problem is reported as weakness, that is generalized. cp 13:50 Onset: The symptoms/episode began/occurred yesterday, and became worse today. Context: cp low blood pressure. 13:50 Associated signs and symptoms: Pertinent negatives: abdominal pain, chest pain, cp syncope. Patient's baseline: Neuro: alert and fully oriented, Motor: no deficits, Ambulation: walks with assist only, Speech: normal. Patient is a 67-year-old male with past medical history significant for end-stage renal disease, hypertension. Patient reports he contacted his assistant business manager today to inform them that his blood pressure was low and he was told to proceed to the emergency room for evaluation. Patient reports having dialysis yesterday and before dialysis have been administered blood pressure of 78 systolic. Patient was given midodrine and then dialyzed and sent home. Patient reports he measured blood pressure today and noticed that it was slow and so he called his assistant business manager. Historical: - Allergies: 14:09 Augmentin; me1 14:09 Norvasc; me1 - Home Meds: 14:09 allopurinol 100 mg Oral tablet once [Active]; Eliquis 2.5 mg Oral tablet 2 times per me1 day [Active]; famotidine 20 mg Oral tablet once [Active]; fludrocortisone 0.1 mg Oral tablet once [Active]; gabapentin 300 mg Oral capsule once [Active]; hydrocortisone 10 mg Oral tablet 2 times per day [Active]; midodrine 5 mg Oral tablet 3 times per day [Active]; omeprazole 40 mg Oral capsule,delayed release (e.c.) once [Active]; Pentasa 500 mg Oral capsule, extended release 2 times per day [Active]; Proair Digihaler 90 mcg/actuation inhalation Aerosol Powder, Breath Activ.with Sensor every 6 hours [Active]; simvastatin 20 mg Oral tablet 1 tab every day at bedtime [Active]; tramadol 50 mg Oral tablet every 6 hours [Active]; - PMHx: 14:09 Dialysis; Diverticulitis; Hypertension; me1 - PSHx: 14:09 Appendectomy; Left arm dialysis fistula; me1 - Immunization history:: Adult Immunizations unknown. - Social history:: Smoking status: unknown. ROS: 13:55 Constitutional: Negative for body aches, chills, fever. cp 13:55 Eyes: Negative for injury, pain, redness, and discharge. cp 13:55 ENT: Negative for drainage from ear(s), ear pain, sore throat, difficulty swallowing, difficulty handling secretions. 13:55 Cardiovascular: Negative for chest pain, palpitations. 13:55 Respiratory: Negative for cough, shortness of breath, wheezing. 13:55 Abdomen/GI: Positive for diarrhea, Negative for abdominal pain, vomiting, constipation, black/tarry stool, rectal bleeding. 13:55 Neuro: Positive for weakness, Negative for altered mental status, headache, numbness, syncope. 13:55 All other systems are negative. Exam: 14:00 Head/Face: Normocephalic, atraumatic. cp 14:00 Constitutional: The patient appears in no acute distress, alert, awake, non-diaphoretic, non-toxic, well developed, well nourished, obese, uncomfortable. 14:00 Eyes: Periorbital structures: appear normal, Conjunctiva: normal, no exudate, no injection, Sclera: no appreciated abnormality, Lids and lashes: appear normal, bilaterally. 14:00 ENT: External ear(s): are unremarkable, Nose: is normal, Mouth: Lips: moist, Oral mucosa: pink and intact, moist, Posterior pharynx: is normal, airway is patent, no erythema, no exudate. 14:00 Neck: ROM/movement: is normal, is supple, without pain, no range of motions limitations, no meningismus. 14:00 Chest/axilla: Inspection: normal, Palpation: is normal, no crepitus, no tenderness. 14:00 Cardiovascular: Rate: tachycardic, Rhythm: regular, Edema: is not appreciated, JVD: is not appreciated. 14:00 Respiratory: the patient does not display signs of respiratory distress, Respirations: normal, no use of accessory muscles, no retractions, labored breathing, is not present, Breath sounds: are clear throughout, no decreased breath sounds, no stridor, no wheezing. 14:00 Abdomen/GI: Inspection: obese Bowel sounds: active, all quadrants, Palpation: soft, in all quadrants, mild abdominal tenderness, in all quadrants. 14:00 Back: pain, is absent, ROM is normal. 14:00 Skin: on the pelvis. 14:00 Neuro: Orientation: to person, situation, Mentation: able to follow commands, slow to respond, Motor: moves all fours, general weakness with no focal deficits. 14:25 ECG was reviewed by the Attending Physician. cp Vital Signs: 13:54 BP 65 / 39; Pulse 92; Resp 18; Pulse Ox 99% on R/A; db 14:03 BP 66 / 47; Pulse 102; Resp 18; Pulse Ox 96% on R/A; db 14:04 BP 68 / 42; Pulse 109; Resp 22; Temp 98.2(O); Pulse Ox 99% on 3 lpm NC; Height 5 ft. 11 me1 in. ; 14:30 BP 76 / 47; Pulse 106; Resp 18; Pulse Ox 95% on R/A; db 14:35 BP 76 / 47; Pulse 112; mb9 16:01 BP 91 / 71; Pulse 105; Resp 16 S; iw 17:00 BP 84 / 58; Pulse 104; Resp 18; Pulse Ox 96% on R/A; iw 18:44 BP 110 / 48; Pulse 110; Resp 18; Pulse Ox 96% on R/A; iw 18:55 BP 120 / 78; Pulse 118; Resp 19; Pulse Ox 96% on R/A; iw 19:01 BP 94 / 82; Pulse 106; Resp 19; Pulse Ox 95% on R/A; Weight 148.7 kg (R); iw 19:45 BP 96 / 73; Pulse 95; Resp 15; Pulse Ox 99% on R/A; rv 20:01 BP 163 / 86; Pulse 94; Resp 18; Pulse Ox 95% on R/A; rv 20:12 BP 168 / 101; Pulse 81; Resp 18; Pulse Ox 95% ; rv 23:00 BP 135 / 77; Pulse 100; Resp 18; Pulse Ox 95% ; rv 23:45 BP 97 / 78; Pulse 102; Resp 20; Temp 98; Pulse Ox 96% on R/A; rv 19:01 Body Mass Index 45.72 (148.70 kg, 180.34 cm) iw [place] Coma Score: 20:01 Eye Response: spontaneous(4). Motor Response: obeys commands(6). Verbal Response: rv oriented(5). Total: 15. 21:00 Eye Response: spontaneous(4). Motor Response: obeys commands(6). Verbal Response: rv oriented(5). Total: 15. 22:00 Eye Response: spontaneous(4). Motor Response: obeys commands(6). Verbal Response: rv oriented(5). Total: 15. 23:00 Eye Response: spontaneous(4). Motor Response: obeys commands(6). Verbal Response: rv oriented(5). Total: 15. 23:57 Eye Response: spontaneous(4). Motor Response: obeys commands(6). Verbal Response: rv oriented(5). Total: 15. Procedures: 18:46 Central Line: the site was prepped with Betadine, in sterile fashion, a triple lumen rn catheter was inserted, in the right femoral vein, in 1 attempts. placement was verified, by blood return, the site was dressed with Tegaderm, using sterile technique, the patient tolerated the procedure, well. MDM: 13:45 Patient medically screened. cp 19:20 Data reviewed: vital signs, nurses notes, lab test result(s), EKG, radiologic studies, cp CT scan, plain films. 20:28 ED course: [facility] declined transfer due to capacity, [facility] declined transfer due to rn capacity. Trying [facility].. 20:47 ED course: On the phone with [facility] urologist, will accept for transfer as soon as they rn confirm with [facility] system that there is truly not an ICU bed available at [facility]. Organizing call for confirmation, so that ultimately the patient can be transferred and taken care of. Improved BP. Hemoglobin 11.5. . 03/11 13:48 Order name: CBC with Diff; Complete Time: 16:34 cp 03/11 16:34 Interpretation: Normal except: RBC 4.11; HGB 11.5; HCT 35.6; RDW 19.7; TANK% 76.0; LYM% cp 6.5; MN% 15.9; LYMA 0.6; MNA 1.6. 03/11 13:48 Order name: CMP; Complete Time: 16:34 03/11 16:35 Interpretation: Normal except: BUN 21; CRE 4.93; GFR 12; AST 73; ALT 68; ALK 133; BILIT cp 1.1; CA 7.5; TP 5.7; ALB 1.8; GLOB 3.9; A/G 0.5. 03/11 13:48 Order name: Lactate w/ 2H reflex if indic.; Complete Time: 16:34 03/11 16:35 Interpretation: Reviewed. 03/11 13:48 Order name: Protime (+inr); Complete Time: 19:55 03/11 13:48 Order name: Ptt, Activated; Complete Time: 19:55 03/11 13:48 Order name: COVID-19 SARS RT PCR; Complete Time: 16:34 03/11 13:48 Order name: Influenza Screen (a \T\ B); Complete Time: 16:34 03/11 13:48 Order name: Troponin High Sensitivity; Complete Time: 16:34 03/11 13:48 Order name: BNP; Complete Time: 16:34 03/11 16:59 Interpretation: Abnormal: NT PRO-BNP 3785. 03/11 13:48 Order name: Rotavirus Antigen; Complete Time: 16:34 03/11 13:48 Order name: Stool Culture 03/11 13:48 Order name: CDIFF; Complete Time: 16:59 03/11 16:59 Interpretation: Reviewed. 03/11 13:55 Order name: AMMONIA; Complete Time: 16:34 03/11 18:21 Order name: Bb Add On 03/11 18:21 Order name: T\T\S 03/11 13:48 Order name: Chest Single View XRAY; Complete Time: 14:44 03/11 16:59 Interpretation: Report review. 03/11 16:36 Order name: CT Traumagram (Head C Spine CAP wo con); Complete Time: 18:13 03/11 13:48 Order name: EKG; Complete Time: 13:49 03/11 13:48 Order name: Accucheck; Complete Time: 16:41 03/11 13:48 Order name: Cardiac monitoring; Complete Time: 16:41 03/11 13:48 Order name: EKG - Nurse/Tech; Complete Time: 14:31 cp 03/11 13:48 Order name: IV Saline Lock - Large Bore; Complete Time: 16:41 cp 03/11 13:48 Order name: Labs collected and sent; Complete Time: 16:41 cp 03/11 13:48 Order name: O2 Per Protocol; Complete Time: 16:41 cp 03/11 13:48 Order name: O2 Sat Monitoring; Complete Time: 16:41 cp 03/11 13:48 Order name: Vital Signs; Complete Time: 16:41 cp 03/11 16:51 Order name: Labs - recollect needed: recollect blue top/ hemolyzed per patricia; eb Complete Time: 19:45 03/11 18:58 Order name: Labs - recollect needed: recollect t\T\s hemolyzed per patricia; Complete eb Time: 19:45 EC:25 Rate is 105 beats/min. Rhythm is irregular. QRS interval is prolonged at 104 msec. QT cp interval is normal. T waves are Inverted in lead aVR. Interpreted by me. Reviewed by me. Administered Medications: 15:22 Drug: midodrine 5 mg Route: PO; iw 16:40 Follow up: Response: No adverse reaction iw 15:40 Drug: NS 0.9% IV 500 ml Route: IV; Rate: bolus; Site: right upper arm; iw 23:58 Follow up: IV Status: Completed infusion rv 17:00 Drug: NS 0.9% IV 250 ml Route: IV; Rate: bolus; Site: right forearm; iw 23:58 Follow up: IV Status: Completed infusion rv 19:31 Drug: Norepinephrine IV 0.1 mcg/kg/min Route: IV; Rate: calculated rate; Site: right rv forearm; 23:58 Follow up: IV Status: Infusion continued upon transfer rv 20:00 Drug: metroNIDAZOLE IVPB 500 mg Volume: 100 ml; Route: IVPB; Infused Over: 30 mins; rv Site: right femoral; 23:58 Follow up: Response: No adverse reaction; IV Status: Completed infusion rv 20:11 Not Given (Duplicate Order): metroNIDAZOLE PO 1 grams PO once rv Disposition Summary: 03/11/23 19:22 Transfer Ordered Reason: Higher level of care cp Condition: Serious cp Problem: new cp Symptoms: have improved cp Transfer Location: Other Acute Care Facility(03/11/23 19:23) cp Accepting Physician: Doctor(03/11/23 23:59) rv Diagnosis - Hypotension, unspecified cp - Polycystic kidney, adult type cp - Hemorrhage, not elsewhere classified cp Forms: - Medication Reconciliation Form cp - SBAR form cp Critical care time excluding procedures: 20:49 Critical care time: Bedside Care: 75 minutes, Consultation: 10 minutes, Family rn Intervention: 5 minutes. Total time: 90 minutes Addendum: 03/14/2023 07:00 Co-signature as Attending Physician, Steve Anand MD I agree with the assessment and r n plan of care. I reviewed the patient's care provided by Advanced Practice Provider \T\ agree w/ the diagnosis \T\ care plan. I personally saw the pt \T\ performed a substantive portion of the visit, incldng all aspects of the (History/Exam/Medical Decision Making). PA/[employer]'s history reviewed, patient interviewed, and examined. HPI: 67 year old male with hypotension, recent PE diagnosis, on Eliquis, noted to be hypotensive day before presentation at dialysis, increased weakness and fatigue today. No trauma. My personal exam of patient reveals: Somnolent but answers all questions, moves all 4 extremities. No abd tenderness. No peritoneal signs. I agree with assessment and care plan and confirm the diagnosis (es) above. Signatures: Dispatcher [employer] Eden Cruz RN RN iw Nieto, Roman, MD MD rn Attema, Lee, ENGRAVER TIRE MOLD-C ENGRAVER TIRE MOLD-Cla1 Garrett Coulter PA PA cp Botello, Elizabeth eb Vicente, Ronaldo, RN RN rv Eddleman, Michelle, RN RN me1 Corrections: (The following items were deleted from the chart) 03/11 15:32 14:29 This 67 yrs old Black Male presents to ER via EMS with complaints of Hypotension. cp cp 19:23 19:22 Doctor cp cp :23 19:22 [facility] cp cp :33 03/10 14:00 Constitutional: The patient appears in no acute distress, alert, awake, cp non-diaphoretic, non-toxic, well developed, well nourished, obese, uncomfortable, cp 03/11 03/10 14:00 Head/Face: Normocephalic, atraumatic. cp cp 03/11 19:03/10 14:00 Eyes: Periorbital structures: appear normal, Conjunctiva: normal, no cp exudate, no injection, Sclera: no appreciated abnormality, Lids and lashes: appear normal, bilaterally, cp 03/11 19:03/10 14:00 ENT: External ear(s): are unremarkable, Nose: is normal, Mouth: Lips: cp moist, Oral mucosa: pink and intact, moist, Posterior pharynx: is normal, airway is patent, no erythema, no exudate, cp 03/11 19:03/10 14:00 Neck: ROM/movement: is normal, is supple, without pain, no range of motions cp limitations, no meningismus, cp 03/11 19:03/10 14:00 Chest/axilla: Inspection: normal, Palpation: is normal, no crepitus, no cp tenderness, cp 03/11 14:00 Cardiovascular: Rate: tachycardic, Rhythm: regular, Edema: is not cp appreciated, JVD: is not appreciated, cp 03/11 19:03/10 14:00 Respiratory: the patient does not display signs of respiratory distress, cp Respirations: normal, no use of accessory muscles, no retractions, labored breathing, is not present, Breath sounds: are clear throughout, no decreased breath sounds, no stridor, no wheezing, cp 03/11 19:03/10 14:00 Abdomen/GI: Inspection: obese Bowel sounds: active, all quadrants, cp Palpation: soft, in all quadrants, mild abdominal tenderness, in all quadrants, cp 03/11 19:03/10 14:00 Back: pain, is absent, ROM is normal, cp cp 03/11 19:03/10 14:00 Skin: on the pelvis, cp cp 03/11 14:00 Neuro: Orientation: to person, situation, Mentation: able to follow cp commands, slow to respond, Motor: moves all fours, general weakness with no focal deficits, cp 03/11 23:59 19:23 Doctor cp rv
[2023-03-11] MEDS ORDERED: NOREPINEPHRINE BITARTRATE/D5W 4 MG/250 ML BAG IV ONE ×2 (19:26→21:37)
[2023-03-11 19:45] LABS: Protime INR 17.82
[2023-03-11] MEDS ORDERED: METRONIDAZOLE 500mg IVPB 500 MG/100 ML BAG IV ONE (20:10)
[2023-03-11] MEDS ORDERED: NOREPINEPHRINE 4 MG/4 ML VIAL ONE (23:46)
[2023-03-12 00:51] VITALS: BP 97/78; TEMP 98; O2SAT 96
--- NOTE | 2023-03-12 14:39 | EKG ---
Test Date: 2023-03-11 Test Time: 14:18:17 Wool Washer: ALCIDES MEASUREMENT RESULTS: Intervals: Rate: 105 CT: QRSD: 104 QT: 356 QTc: 470 [place]: P: CT: QRS: 76 T: 0 INTERPRETIVE STATEMENTS: Atrial fibrillation with rapid ventricular response Abnormal ECG Compared to ECG 02/22/2023 14:13:19 Myocardial infarct finding no longer present Electronically Signed On 03-12-23 14:36:42 CDT by London Duron
== END 2023-03-11 23:59 ==
LOC: ER 13:37
PROC: 06HM33Z Insertion of Infusion Device into Right Femoral Vein, Percutaneous Approach (ICD-10-PCS; principal; 2023-03-11)
DX: I95.9 Hypotension, unspecified (principal); Q61.2 Polycystic kidney, adult type; R58 Hemorrhage, not elsewhere classified; Z99.2 Dependence on renal dialysis; I12.0 Hypertensive chronic kidney disease with stage 5 chronic kidney disease or end stage renal disease; N18.6 End stage renal disease; Z20.822 Contact with and (suspected) exposure to COVID-19; Z79.01 Long term (current) use of anticoagulants; Z88.1 Allergy status to other antibiotic agents; Z88.8 Allergy status to other drugs, medicaments and biological substances
CPT/HCPCS: 93005; 87045; 85025; 36415; 82140; 86900; 86850; 85610; 86901; 87046; 83605; 85730; 86920; 87324; 84484; 80053; 83880; 87635; 87425; 87804 ×2; 70450; 71250; 72125; 71045; 99285; 36556; J7050 ×2; J7040

== ENCOUNTER 2023-11-03 13:44 | Emergency (ER) | payer OTHER, MEDICARE ==
--- NOTE | 2023-11-03 16:11 | RAD REPORT ---
EXAM DESCRIPTION: CT - Abdomen Pelvis Wo Contrast - 11/03/2023 2:34 pm CLINICAL HISTORY: ABD PAIN COMPARISON: Abdomen Pelvis Wo Contrast dated 02/11/2023; Abdomen Pelvis Wo Contrast dated 3; CT ABDOMEN PELVIS WO CONTRAST dated 08/13/2014; CT ABDOMEN PELVIS WO CONTRAST dated 09/01/2013; Head C Spine Cap Wo Con dated 03/11/2023 TECHNIQUE: Thin cut axial CT imaging of the abdomen and pelvis was performed without IV contrast. Mu ltiplanar reformats were generated and reviewed. All CT scans are performed using dose optimization technique as appropriate and may include automated exposure control or mA/KV adjustment according to patient size. FINDINGS: No suspicious findings in the lung bases. The liver, spleen, and pancreas show no suspicious findings. Gallbladder was surgically removed. . Interval improvement of the sizable hematoma at the left superior renal pole tracking posteriorly, wi th partial improvement of the perinephric fat stranding. Background changes of bilateral polycystic k [place]ney, trauma with numerous hyperdense and marginally calcified cysts again seen. No new suspicious renal masses within limits of noncontrast evaluation. No evidence of radiopaque dave culi or hydroureteronephrosis. No dilated bowel loops or bowel wall thickening. No free air, free fluid or inflammatory stranding. N o hernia, mass or bulky lymphadenopathy. The urinary bladder is suboptimally distended limiting evalu ation. No suspicious bony findings. IMPRESSION: Interval resolution of the sizable hematoma at the left renal superior pole tracking pos teriorly, likely related to hemorrhage arising from a renal cyst. Partial improvement adjacent perine phric fat stranding. No other acute intra-abdominal process.
--- NOTE | 2023-11-03 16:35 | RAD REPORT ---
EXAM DESCRIPTION: RADChest Single View11/03/2023 2:54 pm CLINICAL HISTORY: abdominal pain COMPARISON: Chest Single View dated 03/11/2023; Chest Single View dated 02/22/2023; Chest Single View d ated 02/11/2023; Chest Single View dated 11/06/2022 TECHNIQUE: Portable AP view of the chest. FINDINGS: Decreased inspiratory effort limits evaluation. Elevation of the left hemidiaphragm again seen. The lungs are otherwise clear. No pneumothorax or effusion. The cardiomediastinal contours are unchanged, with stable cardiomegaly. IMPRESSION: No acute cardiopulmonary process.
[2023-11-03 18:24] LABS: Absolute Basophils 0.1 K/uL (0-0.5); Absolute Eosinophils 0.1 K/uL (0-0.5); Absolute Lymphocytes (CBC) 1.1 K/uL (0.7-4.9); Absolute Monocytes 1.1 K/uL (0.1-1.3); Absolute Neutrophil 5.4 K/uL (1.8-8.0); Basophils % 1.3 % (0-1.3); Eosinophils % 1.7 % (0-4.4); Hematocrit 40.8 % (39.6-49.0); Hemoglobin 12.7 g/dL (13.6-17.9); Lymphocytes % 14.1 % (15.3-44.8); MCH 25.9 pg (27.0-35.0); MCHC 31.2 g/dL (32.0-36.0); MCV 83.1 fL (80-100); MPV 8.1 fL (7.6-11.3); Monocytes % 14.1 % (3.3-12.3); Neutrophils % 68.8 % (41.7-73.7); Nucleated Red Blood Cells % 0.2 % (0-0); Platelets 222 thou/uL (152-406); RBC Red Blood Cell Count 4.91 M/uL (4.33-5.43); Red Cell Distribution Width 18.9 % (12.1-15.2)
[2023-11-03 18:46] LABS: Albumin 2.6 g/dL (3.4-5.0); Albumin/Globulin Ratio 0.6 (1.1-1.8); Anion Gap 11.9 mEq/L (5.0-15.0); Bilirubin Total 0.5 mg/dL (0.2-1.0); Globulin 4.7 g/dL (2.3-3.5); Potassium 4.9 mEq/L (3.5-5.1); Protein, Total 7.3 g/dL (6.4-8.2)
--- NOTE | 2023-11-03 18:57 | EDPHYS ---
Physician Documentation [facility] Name: Adriel Raya Age: 68 yrs Sex: Male : 1955 Arrival Date: 11/03/2023 Time: 13:44 Bed 20 Private MD: ED Physician Le Floyd Historical: - Allergies: 11/02 13:58 Augmentin; cp4 13:58 Norvasc; cp4 - PMHx: 13:58 Dialysis; Diverticulitis; Hypertension; cp4 - PSHx: 13:58 Appendectomy; Left arm dialysis fistula; cp4 - Immunization history:: Adult Immunizations up to date. - Infectious Disease History:: Denies. CDIFF, C. Auris, ESBL, MRSA (w/in 1 year), VRE (w/in 1 year), TB, . - Social history:: Smoking status: Patient denies any tobacco usage or history of. Vital Signs: 13:56 BP 103 / 70; Pulse 109; Resp 18; Temp 98; Pulse Ox 93% ; Weight 172.37 kg; Height 5 ft. cp4 10 in. ; Pain 0/10; 15:00 BP 118 / 85; Pulse 53; Resp 18; Pulse Ox 97% ; cp4 16:00 BP 126 / 79; Pulse 56; Resp 18; Pulse Ox 97% ; cp4 17:00 BP 137 / 82; Pulse 54; Resp 18; Pulse Ox 97% ; cp4 18:00 BP 132 / 82; Pulse 64; Resp 18; Temp 97; cp4 13:56 Body Mass Index 54.52 (172.37 kg, 177.8 cm) cp4 13:56 Pain Scale: Adult cp4 MDM: 13:49 Patient medically screened. cp 11/02 13:58 Order name: CBC with Diff; Complete Time: 18:42 cp 11/02 13:58 Order name: CMP; Complete Time: 18:55 cp 11/02 18:55 Interpretation: Normal except: BUN 25; CRE 7.12; GFR 8; CA 10.8; ALB 2.6; GLOB 4.7; A/G cp 0.6. 11/02 13:58 Order name: Lipase; Complete Time: 18:55 cp 11/02 14:16 Order name: XRAY Chest (1 view); Complete Time: 16:43 cp 11/02 14:36 Order name: Abdomen ; Complete Time: 16:43 EDMS 11/02 13:58 Order name: IV Saline Lock; Complete Time: 17:31 cp 11/02 13:58 Order name: Labs collected and sent; Complete Time: 17:31 cp 11/02 16:44 Order name: PO challenge; Complete Time: 17:31 cp 11/02 17:49 Order name: Labs - recollect needed: GREEN AND PURPLE TOP; Complete Time: 18:10 ll1 Administered Medications: No medications were administered Disposition Summary: 11/03/23 18:56 Discharge Ordered Notes: Location: Home cp Problem: new cp Symptoms: have improved cp Condition: Stable cp Diagnosis - Lower abdominal pain, unspecified cp Followup: cp - With: Private Physician - When: 1 - 2 days - Reason: Recheck today's complaints Discharge Instructions: - Discharge Summary Sheet cp - Abdominal Pain, Adult cp Forms: - Medication Reconciliation Form cp - Antibiotic Education cp - Prescription Opioid Use cp - Patient Portal Instructions cp - Leadership Thank You Letter cp Prescriptions: - dicyclomine 20 mg Oral tablet - take 1 tablet ORAL route 4 times per day; 20 tablet; Refills: 0, Product cp Selection Permitted Signatures: Dispatcher [employer] EDMS Garrett Coulter PA PA cp Danie Hudson RN RN ll1 Elisa Pal cp4 Corrections: (The following items were deleted from the chart) 14:17 14:17 Chest Single View+RAD.RAD.BRZ ordered. EDMS EDMS 14:36 14:17 Abdomen Pelvis W Con+CT.RAD.BRZ ordered. EDMS EDMS 18:55 18:55 Normal except: BUN 25; CRE 7.12; GFR 8. cp cp
--- NOTE | 2023-11-03 18:57 | ER ---
Nurse's Notes [facility] Name: Adriel Raya Age: 68 yrs Sex: Male : 1955 Arrival Date: 11/03/2023 Time: 13:44 Bed 20 Private MD: Diagnosis: Lower abdominal pain, unspecified Presentation: 11/02 13:56 Chief complaint: EMS states: abdominal pain that started last night. Coronavirus cp4 screen: Client denies travel out of the [place] in the last 14 days. At this time, the client does not indicate any symptoms associated with coronavirus-19. Ebola Screen: Patient negative for fever greater than or equal to 101.5 degrees Fahrenheit, and additional compatible Ebola Virus Disease symptoms Patient denies exposure to infectious person. Patient denies travel to an Ebola-affected area in the 21 days before illness onset. No symptoms or risks identified at this time. Initial Sepsis Screen: Does the patient meet any 2 criteria? HR > 90 bpm. No. Patient's initial sepsis screen is negative. Does the patient have a suspected source of infection? No. Patient's initial sepsis screen is negative. Risk Assessment: Do you want to hurt yourself or someone else? Patient reports no desire to harm self or others. Onset of symptoms was November 02, 2023. 13:56 Method Of Arrival: EMS: [facility] cp4 13:56 Acuity: SAM 3 cp4 Triage Assessment: 13:58 General: Appears in no apparent distress. Behavior is calm, cooperative, appropriate cp4 for age. Pain: Denies pain. GI: No deficits noted. Bowel sounds present X 4 quads. Abd is soft and non tender X 4 quads. Historical: - Allergies: 13:58 Augmentin; cp4 13:58 Norvasc; cp4 - PMHx: 13:58 Dialysis; Diverticulitis; Hypertension; cp4 - PSHx: 13:58 Appendectomy; Left arm dialysis fistula; cp4 - Immunization history:: Adult Immunizations up to date. - Infectious Disease History:: Denies. CDIFF, C. Auris, ESBL, MRSA (w/in 1 year), VRE (w/in 1 year), TB, . - Social history:: Smoking status: Patient denies any tobacco usage or history of. Screenin:04 [facility] ED Fall Risk Assessment (Adult) History of falling in the last 3 months, cp4 including since admission No falls in past 3 months (0 pts) Confusion or Disorientation No (0 pts) Intoxicated or Sedated No (0 pts) Impaired Gait No (0 pts) Mobility Assist Device Used No (0 pt) Altered Elimination No (0 pt) Score/Fall Risk Level 0 - 2 = Low Risk Oriented to surroundings, Maintained a safe environment, Assessed \T\ reinforced patient's understanding of fall precautions, Hourly rounding (assess needs \T\ fall precautionary measures) done. Abuse screen: Denies threats or abuse. Nutritional screening: No deficits noted. Tuberculosis screening: No symptoms or risk factors identified. Assessment: 14:30 Reassessment: Waiting for US IV. Patient states he is allowing one stick only. US IV cp4 requested. 15:04 Reassessment: No changes from previously documented assessment. cp4 16:13 Reassessment: Patient refusing to have blood drawn. Provider notified. cp4 16:49 Reassessment: Attempted to call and [id number] to facilitate help in treating cp4 patient. No answer and no one in lobby. 17:21 Reassessment: Family in room. Will re-attempt US IV access. cp4 19:07 Reassessment: Awaiting EMS transport home. cp4 19:30 Reassessment: [facility] ETA 30 minutes. cp4 Vital Signs: 13:56 BP 103 / 70; Pulse 109; Resp 18; Temp 98; Pulse Ox 93% ; Weight 172.37 kg; Height 5 ft. cp4 10 in. ; Pain 0/10; 15:00 BP 118 / 85; Pulse 53; Resp 18; Pulse Ox 97% ; cp4 16:00 BP 126 / 79; Pulse 56; Resp 18; Pulse Ox 97% ; cp4 17:00 BP 137 / 82; Pulse 54; Resp 18; Pulse Ox 97% ; cp4 18:00 BP 132 / 82; Pulse 64; Resp 18; Temp 97; cp4 13:56 Body Mass Index 54.52 (172.37 kg, 177.8 cm) cp4 13:56 Pain Scale: Adult cp4 ED Course: 13:47 Patient arrived in ED. cp4 13:49 Garrett Coulter PA is PHCP. cp 13:49 Le Floyd MD is Attending Physician. cp 13:56 Elisa Pal is Primary Nurse. cp4 13:58 Triage completed. cp4 13:58 Arm band placed on right wrist. Patient placed in an exam room, on a stretcher. cp4 14:36 Abdomen In Process Unspecified. EDMS 14:56 XRAY Chest (1 view) In Process Unspecified. EDMS 15:04 Bed in low position. Call light in reach. Side rails up X2. cp4 15:04 No provider procedures requiring assistance completed. cp4 17:30 Accessed peripheral vein via ultrasound, utilizing dynamic ultrasound technique using cp4 18G Nexia IV Catheter Clean \T\ dry. Dressing intact. Good blood return. Flushes easily. 19:20 EMS unable to to transport. 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 20:04 Provided Education on: abdominal pain. cp4 20:04 intact, bleeding controlled, No redness/swelling at site. Pressure dressing applied. cp4 Administered Medications: No medications were administered Medication: 15:04 VIS not applicable for this client. cp4 Outcome: 18:56 Discharge ordered by . cp 20:04 Discharged to home via ambulance, cp4 20:04 Condition: stable 20:04 Discharge instructions given to family, Instructed on discharge instructions, follow up and referral plans. Demonstrated understanding of instructions, follow-up care, 20:05 Patient left the ED. cp4 Signatures: Dispatcher [employer] EDFL Garrett Coulter PA PA cp Marsh, Wendy wm Potter, Christina cpAhsan
[2023-11-03 21:20] VITALS: BP 132/82; TEMP 97; O2SAT 97
== END 2023-11-03 20:05 | disposition home or self-care (01) ==
LOC: ER 13:44
DX: R10.30 Lower abdominal pain, unspecified (principal); I10 Essential (primary) hypertension; Z99.2 Dependence on renal dialysis; Z88.1 Allergy status to other antibiotic agents; Z88.8 Allergy status to other drugs, medicaments and biological substances
CPT/HCPCS: 36415; 71045; 74176; 80053; 83690; 85025

== ENCOUNTER 2023-11-04 10:48 | Inpatient (IN) | payer OTHER, MEDICARE ==
--- NOTE | 2023-11-04 11:59 | RAD REPORT ---
EXAM DESCRIPTION: RAD - Chest Single View - 11/04/2023 11:52 am CLINICAL HISTORY: hypotension, ams Chest pain. COMPARISON: Chest Single View dated 11/03/2023; Chest Single View dated 03/11/2023; Chest Single View d ated 02/22/2023; Chest Single View dated 02/11/2023 FINDINGS: Portable technique limits examination quality. The lungs are grossly clear. The heart is upper limit of normal in size. No displaced fractures. IMPRESSION: No acute intrathoracic process suspected.
--- NOTE | 2023-11-04 12:05 | RAD REPORT ---
EXAM DESCRIPTION: CT - Head Brain Wo Cont - 11/04/2023 12:00 pm CLINICAL HISTORY: ams Headache, drowsiness COMPARISON: Head Brain Wo Cont dated 02/22/2023; Head Brain Wo Cont dated 11/06/2022 TECHNIQUE: All CT scans are performed using dose optimization technique as appropriate and may inclu de automated exposure control or mA/KV adjustment according to patient size. FINDINGS: No intracranial hemorrhage, hydrocephalus or extra-axial fluid collection.Mild generalized brain atrophy is present with mild periventricular and deep white matter chronic microvascular ische alvaro changes.No areas of brain edema or evidence of midline shift. Mild vertebral atherosclerosis. The paranasal sinuses and mastoids are clear. The calvarium is intact. IMPRESSION: No acute intracranial abnormality.
[2023-11-04] MEDS ORDERED: NA CHLORIDE 0.9% 1,000 ML ONE (12:40)
[2023-11-04 13:34] LABS: Absolute Basophils 0.1 K/uL (0-0.5); Absolute Eosinophils 0.1 K/uL (0-0.5); Absolute Lymphocytes (CBC) 0.9 K/uL (0.7-4.9); Absolute Monocytes 1.3 K/uL (0.1-1.3); Absolute Neutrophil 8.5 K/uL (1.8-8.0); Basophils % 0.9 % (0-1.3); Eosinophils % 1.2 % (0-4.4); Hematocrit 37.7 % (39.6-49.0); Hemoglobin 11.5 g/dL (13.6-17.9); Lymphocytes % 8.4 % (15.3-44.8); MCH 25.5 pg (27.0-35.0); MCHC 30.7 g/dL (32.0-36.0); MPV 8.6 fL (7.6-11.3); Monocytes % 12.1 % (3.3-12.3); Neutrophils % 77.4 % (41.7-73.7); Nucleated Red Blood Cells % 0.1 % (0-0); Platelets 245 thou/uL (152-406); RBC Red Blood Cell Count 4.54 M/uL (4.33-5.43); Red Cell Distribution Width 17.9 % (12.1-15.2)
[2023-11-04 13:44] LABS: PT Prothrombin Time 66.9 SECONDS (9.5-12.5); PTT, Activated Partial Thromb 72.2 SECONDS (24.3-36.9)
[2023-11-04 13:55] LABS: Albumin 2.4 g/dL (3.4-5.0); Albumin/Globulin Ratio 0.6 (1.1-1.8); Anion Gap 10.6 mEq/L (5.0-15.0); Bilirubin Total 0.5 mg/dL (0.2-1.0); Globulin 4.3 g/dL (2.3-3.5); Potassium 4.6 mEq/L (3.5-5.1); Protein, Total 6.7 g/dL (6.4-8.2); Troponin High Sensitivity 48.8 pg/mL (<58.9)
[2023-11-04] MEDS ORDERED: NA CHLORIDE 0.9% 500 ML ONE (14:33)
[2023-11-04] MEDS ORDERED: ALBUMIN HUMAN 25% 100 ML IV ONE (14:34)
[2023-11-04 14:41] LABS: Protime INR 6.42
[2023-11-04] MEDS ORDERED: HYDROCORTISONE SUC 100 MG INJ ONE (14:54)
[2023-11-04] MEDS ORDERED: D10W 250 ML IV ONE ×2 (15:17→19:35)
[2023-11-04 15:27] LABS: Anisocytosis 1+; Blood Morphology Comment NOTED (NOT SEEN); Platelet Estimate ADEQ; White Blood Cell Scan OK (OK)
[2023-11-04] MEDS ORDERED: NA CHLORIDE 0.9% 100 ML ONE (15:47)
[2023-11-04] MEDS ORDERED: CEFEPIME 1 GM/VIAL ONE (15:48)
--- NOTE | 2023-11-04 15:53 | EDPHYS ---
Physician Documentation [facility] Name: Adriel Raya Age: 68 yrs Sex: Male : 1955 Arrival Date: 11/04/2023 Time: 10:48 Bed 2 Private MD: ED Physician Andres Gallardo HPI: 11/03 16:13 This 68 yrs old Black Male presents to ER via EMS with complaints of Low Blood Sugar, rt Blood Pressure Problem. 16:13 Patient presents to the ED with confusion, hypotension, reported hyperglycemia to about rt 60. Patient was scheduled to have dialysis today, did not make it to dialysis due to this. Was seen in the ED yesterday for abdominal pain, negative CT, went home. Denies other acute complaints at this time, symptoms are moderate severity, no other aggravating or alleviating factors.. Historical: - Allergies: 11:05 Augmentin; nj1 11:05 Norvasc; nj1 - PMHx: 11:05 Dialysis; Diverticulitis; Hypertension; nj1 - PSHx: 11:05 Appendectomy; Left arm dialysis fistula; nj1 - Immunization history:: Client reports receiving the 2nd dose of the Covid vaccine. - Infectious Disease History:: Denies. - Social history:: Smoking status: Patient denies any tobacco usage or history of. ROS: 16:18 Constitutional: Negative for fever, chills, and weight loss, Cardiovascular: Negative rt for chest pain, palpitations, and edema, Respiratory: Negative for shortness of breath, cough, wheezing, and pleuritic chest pain, Abdomen/GI: Negative for abdominal pain, nausea, vomiting, diarrhea, and constipation, Skin: Negative for injury, rash, and discoloration, Psych: Negative for depression, anxiety, suicide ideation, homicidal ideation, and hallucinations, 16:18 Neuro: Positive for altered mental status, weakness, Exam: 16:18 Constitutional: This is a well developed, well nourished patient who is awake, alert, rt and in no acute distress. Head/Face: Normocephalic, atraumatic. Chest/axilla: Normal chest wall appearance and motion. Nontender with no deformity. No lesions are appreciated. Cardiovascular: Regular rate and rhythm with a normal S1 and S2. No gallops, murmurs, or rubs. Normal PMI, no JVD. No pulse deficits. Respiratory: Lungs have equal breath sounds bilaterally, clear to auscultation and percussion. No rales, rhonchi or wheezes noted. No increased work of breathing, no retractions or nasal flaring. Abdomen/GI: Soft, non-tender, with normal bowel sounds. No distension or tympany. No guarding or rebound. No evidence of tenderness throughout. Skin: Warm, dry with normal turgor. Normal color with no rashes, no lesions, and no evidence of cellulitis. MS/ Extremity: Pulses equal, no cyanosis. Neurovascular intact. Full, normal range of motion. Neuro: Awake and alert, GCS 15, oriented to person, place, time, and situation. Cranial nerves II-XII grossly intact. Motor strength 5/5 in all extremities. Sensory grossly intact. Cerebellar exam normal. Normal gait. 16:18 ECG was reviewed by the Attending Physician. Vital Signs: 10:47 BP 161 / 116; Pulse 92; Resp 16; Temp 98.1(O); Pulse Ox 94% on R/A; Weight 172.82 kg; nj1 Height 6 ft. 0 in. ; 11:04 BP 161 / 116; Pulse 92; Resp 18; Pulse Ox 96% on R/A; ld1 12:35 BP 74 / 43; Pulse 81; Resp 12; Pulse Ox 97% on R/A; MAP 54 mmHg; nj1 12:55 BP 81 / 52; Pulse 88; Resp 16; Pulse Ox 98% on R/A; MAP 62 mmHg; nj1 13:23 BP 103 / 70; Pulse 86; Resp 19; Pulse Ox 96% on R/A; MAP 76 mmHg; nj1 13:40 BP 82 / 68; Pulse 90; Resp 20; Pulse Ox 96% on R/A; MAP 75 mmHg; nj1 14:25 BP 89 / 55; Pulse 81; Resp 16; Pulse Ox 100% ; MAP 65 mmHg; bc6 14:50 BP 92 / 57; Pulse 95; Resp 18; Pulse Ox 97% on R/A; ld1 15:09 BP 95 / 58; Pulse 86; Resp 21; Pulse Ox 97% on R/A; MAP 71 mmHg; nj1 16:06 BP 109 / 79; Pulse 83; Resp 18; Pulse Ox 94% on R/A; MAP 91 mmHg; nj1 17:33 BP 90 / 72; Pulse 89; Resp 16; Pulse Ox 95% on R/A; MAP 80 mmHg; nj1 18:43 BP 115 / 82; Pulse 90; Resp 14; Temp 97.1(TE); Pulse Ox 98% on R/A; nj1 10:47 Body Mass Index 51.67 (172.82 kg, 182.88 cm) nj1 Rogers Coma Score: 11:10 Eye Response: to voice(3). Motor Response: localizes pain(5). Verbal Response: nj1 confused(4). Total: 12. MDM: 10:54 Patient medically screened. rt 16:18 Differential diagnosis: Hypoglycemia, hypotension, addisonian crisis. Data reviewed: rt vital signs, nurses notes, lab test result(s), EKG, radiologic studies. Consideration of Admission/Observation Patient was admitted/placed on observation. Management of patient was discussed with the following: Hospitalist: Agrees to admit. I considered the following discharge prescriptions or medication management in the emergency department Medications were administered in the Emergency Department. See MAR. Independent interpretation of the following test(s) in the Emergency Department CT Scan: My interpretation is No intracranial hemorrhage seen on interpretation of CT scan images. Care significantly affected by the following chronic conditions: Chronic Kidney Disease. Counseling: I had a detailed discussion with the patient and/or guardian regarding the historical points, exam findings, and any diagnostic results supporting the discharge/admit diagnosis, lab results, radiology results, the need for further work-up and treatment in the hospital. Response to treatment: the patient's symptoms have markedly improved after treatment. ED course: No clear signs of infection, will cover empirically.. 11/03 10:58 Order name: Blood Culture Adult (2) rt 11/03 10:58 Order name: CBC with Diff; Complete Time: 15:28 rt 11/03 10:58 Order name: CMP; Complete Time: 14:30 rt 11/03 10:58 Order name: Lactate w/ 2H reflex if indic.; Complete Time: 12:43 rt 11/03 10:58 Order name: Protime (+inr); Complete Time: 14:48 rt 11/03 10:58 Order name: Ptt, Activated; Complete Time: 14:48 rt 11/03 10:58 Order name: Troponin High Sensitivity; Complete Time: 14:30 rt 11/03 10:58 Order name: AMMONIA; Complete Time: 14:30 rt 11/03 13:52 Order name: CBC Smear Scan; Complete Time: 15:28 EDMS 11/03 15:30 Order name: Glucose, Ancillary Testing; Complete Time: 15:31 EDMS 11/03 16:13 Order name: Glucose, Ancillary Testing; Complete Time: 16:16 EDMS 11/03 16:51 Order name: FFP Apheresis EDMS 11/03 16:51 Order name: Type and Screen EDMS 11/03 16:52 Order name: ABO/RH typing EDMS 11/03 17:02 Order name: Procalcitonin EDMS 11/03 17:02 Order name: Comprehensive Metabolic Panel EDMS 11/03 17:02 Order name: Comprehensive Metabolic Panel EDMS 11/03 17:02 Order name: Comprehensive Metabolic Panel EDMS 11/03 17:02 Order name: Comprehensive Metabolic Panel EDMS 11/03 17:02 Order name: Lipid Profile EDMS 11/03 17:02 Order name: Lipid Profile EDMS 11/03 17:02 Order name: Magnesium EDMS 11/03 17:02 Order name: Thyroid Stimulating Hormone EDMS 11/03 17:02 Order name: CBC with Automated Diff EDMS 11/03 17:02 Order name: CBC with Automated Diff EDMS 11/03 17:02 Order name: CBC with Automated Diff EDMS 11/03 17:02 Order name: CBC with Automated Diff EDMS 11/03 17:02 Order name: Hemoglobin EDMS 11/03 17:02 Order name: Hemoglobin EDMS 11/03 17:02 Order name: Hemoglobin EDMS 11/03 17:03 Order name: Magnesium EDMS 11/03 17:03 Order name: Magnesium EDMS 11/03 17:03 Order name: Magnesium EDMS 11/03 17:03 Order name: Phosphorus EDMS 11/03 17:03 Order name: Phosphorus EDMS 11/03 17:03 Order name: Phosphorus EDMS 11/03 17:03 Order name: Phosphorus EDMS 11/03 17:03 Order name: Protime (+INR) EDMS 11/03 17:03 Order name: Protime (+INR) EDMS 11/03 17:03 Order name: PTT, Activated Partial Thromb EDMS 11/03 17:03 Order name: PTT, Activated Partial Thromb EDMS 11/03 19:40 Order name: Glucose, Ancillary Testing EDMS 11/03 10:58 Order name: Chest Single View XRAY; Complete Time: 12:06 rt 11/03 10:58 Order name: CT Head Brain wo Cont; Complete Time: 12:06 rt 11/03 10:58 Order name: EKG; Complete Time: 10:59 rt 11/03 17:02 Order name: CONS Physician Consult EDVA 11/03 10:58 Order name: Accucheck; Complete Time: 11:04 rt 11/03 10:58 Order name: Cardiac monitoring; Complete Time: 11:04 rt 11/03 10:58 Order name: EKG - Nurse/Tech; Complete Time: 11:04 rt 11/03 10:58 Order name: IV Saline Lock - Large Bore; Complete Time: 11:04 rt 11/03 10:58 Order name: Labs collected and sent; Complete Time: 11:48 rt 11/03 10:58 Order name: O2 Per Protocol; Complete Time: 11:04 rt 11/03 10:58 Order name: O2 Sat Monitoring; Complete Time: 11:04 rt 11/03 10:58 Order name: Vital Signs; Complete Time: 11:04 rt 11/03 12:53 Order name: Labs - recollect needed: recollect all the blood/ hemolyzed per violeta; eb Complete Time: 13:22 11/03 19:39 Order name: Accucheck Blood Glucose; Complete Time: 19:39 nj1 EC:18 Rate is 103 beats/min. Rhythm is regular, A fib with Occasional PVCs. QRS [place] is rt Normal. QRS interval is normal. QT interval is normal. No Q waves. Administered Medications: 12:42 Drug: Sodium Chloride 0.9% IVPB 1000 ml IVPB once {Note: Right shoulder.} Route: IVPB; [facility] Site: Other; 14:00 Follow up: IV Status: Completed infusion; IV Intake: 1000ml [facility] 14:50 Drug: NS 0.9% IV 500 ml IV at bolus once Route: IV; Rate: bolus; Site: right ld1 antecubital; 16:05 Follow up: IV Status: Completed infusion; IV Intake: 500ml [facility] 14:50 Drug: Albumin IVPB 25 grams 100 ml IVPB once; (Note: Albumin 25% concentration) Volume: ld1 100 ml; Route: IVPB; Site: right antecubital; 16:04 Follow up: IV Status: Completed infusion; IV Intake: 100ml nj1 15:02 Drug: Solu-CORTEF IVP 100 mg IVP once Route: IVP; Site: right upper arm; ld1 16:04 Follow up: Response: No adverse reaction nj1 15:59 Drug: Cefepime IVPB 1 grams IVPB at 200 ml/hr once over 30 mins; (mix in NS 100 mL) nj1 Route: IVPB; Rate: 200 ml/hr; Infused Over: 30 mins; Site: right antecubital; 19:38 Drug: D10 in Water IVP 250 ml IVP once {Note: Right shoulder.} Route: IVP; Site: Other; nj1 Disposition Summary: 11/04/23 15:52 Hospitalization Ordered Notes: Hospitalization Status: Inpatient Admission rt Provider: Bryanna Mclaughlin rt Condition: Stable rt Problem: new rt Symptoms: have improved rt Bed/Room Type: Standard rt Location: Intensive Care Unit(11/04/23 18:37) eb Room Assignment: 5-(11/04/23 18:37) eb Diagnosis - Hypotension, unspecified rt - Hypoglycemia, unspecified rt Forms: - Medication Reconciliation Form rt - SBAR form rt - Leadership Thank You Letter rt Critical care time excluding procedures: 18:38 Critical care time: Bedside Care: 30 minutes, Consultation: 5 minutes. Total time: 35 rt minutes Signatures: Dispatcher [employer] EDMS Petra Hadley eb Barbara Soares RN RN ld1 Andres Gallardo MD MD rt Josie Olivia RN RN nj1 Corrections: (The following items were deleted from the chart) 10:59 10:59 BLOOD CULTURE*+BA.LAB.BRZ ordered. EDMS EDMS 10:59 10:59 CBC+H.LAB.BRZ ordered. EDMS EDMS 10:59 10:59 COMPREHENSIVE METABOLIC PANEL+C.LAB.BRZ ordered. EDMS EDMS 10:59 10:59 LACTATE+C.LAB.BRZ ordered. EDMS EDMS 10:59 10:59 PROTIME (+INR)+COAG.LAB.BRZ ordered. EDMS EDMS 10:59 10:59 PTT, ACTIVATED+COAG.LAB.BRZ ordered. EDMS EDMS 10:59 10:59 Troponin High Sensitivity+C.LAB.BRZ ordered. EDMS EDMS 10:59 10:59 AMMONIA+C.LAB.BRZ ordered. EDMS EDMS 18:37 15:52 Telemetry/MedSurg (Inpatient) rt eb 18:37 15:52 rt eb
--- NOTE | 2023-11-04 15:53 | ER ---
Nurse's Notes [facility] Name: Adriel Raya Age: 68 yrs Sex: Male : 1955 Arrival Date: 11/04/2023 Time: 10:48 Bed 2 Private MD: Diagnosis: Hypotension, unspecified;Hypoglycemia, unspecified Presentation: 11/03 10:47 Chief complaint: EMS states: Toned out for hypoglycemia and hypotension. Upon arrival nj1 blood sugar was 60 and systolic bp in the 80's. Given D10 250ml and glucagon. Due for dialysis today. Seen here yesterday for abdominal pain. 10:47 Coronavirus screen: Vaccine status: Patient reports receiving the 2nd dose of the covid nj1 vaccine. Ebola Screen: Patient denies travel to an Ebola-affected area in the 21 days before illness onset. Initial Sepsis Screen: Does the patient meet any 2 criteria? HR > 90 bpm. No. Patient's initial sepsis screen is negative. Does the patient have a suspected source of infection? No. Patient's initial sepsis screen is negative. Risk Assessment: Do you want to hurt yourself or someone else? Patient reports no desire to harm self or others. Onset of symptoms was November 04, 2023. 10:47 Method Of Arrival: EMS: [facility] 10:47 Acuity: SAM 3 nj 10:47 Care prior to arrival: Medication(s) given: Glucagon, D10W, 250ml IV initiated. 22 GA, nj1 in the right Shoulder Glucose check: 120 BP prior to arrival 111/64. 10:50 Acuity: SAM 2 hb Historical: - Allergies: 11:05 Augmentin; nj1 11:05 Norvasc; nj1 - PMHx: 11:05 Dialysis; Diverticulitis; Hypertension; nj1 - PSHx: 11:05 Appendectomy; Left arm dialysis fistula; nj1 - Immunization history:: Client reports receiving the 2nd dose of the Covid vaccine. - Infectious Disease History:: Denies. - Social history:: Smoking status: Patient denies any tobacco usage or history of. Screenin:10 [facility] ED Fall Risk Assessment (Adult) History of falling in the last 3 months, nj1 including since admission No falls in past 3 months (0 pts) Confusion or Disorientation Yes (5 pts) Intoxicated or Sedated No (0 pts) Impaired Gait Yes (1 pt) Mobility Assist Device Used Yes (1 pt) Altered Elimination No (0 pt) Score/Fall Risk Level 0 - 2 = Low Risk Oriented to surroundings, Maintained a safe environment, Hourly rounding (assess needs \T\ fall precautionary measures) done. Abuse screen: Denies threats or abuse. Denies injuries from another. 11:10 Nutritional screening: No deficits noted. Tuberculosis screening: No symptoms or risk nj1 factors identified. Assessment: 11:10 General: Appears in no apparent distress. comfortable, Behavior is calm, appropriate nj1 for age. Pain: Complains of pain in Generalized. Neuro: Level of Consciousness is obeys commands, Drowsy. Oriented to person, place. 11:10 Cardiovascular: Patient's skin is warm and dry. Respiratory: Airway is patent nj1 Respiratory effort is even, unlabored. 12:11 Reassessment: Lab in room collecting bloodwork. nj1 12:11 Reassessment: Patient appears in no apparent distress at this time. nj1 12:35 Reassessment: No changes from previously documented assessment. nj1 13:22 Reassessment: Patient appears in no apparent distress at this time. No changes from nj1 previously documented assessment. 14:25 Reassessment: No changes from previously documented assessment. nj1 16:05 Reassessment: Patient appears in no apparent distress at this time. No changes from nj1 previously documented assessment. 17:33 Reassessment: Patient appears in no apparent distress at this time. No changes from nj1 previously documented assessment. 18:46 Reassessment: Report paperwork faxed to ICU at this time. Neha notified at [id number]. nj1 Moy AGUIRRE not ready for report at this time. Vital Signs: 10:47 BP 161 / 116; Pulse 92; Resp 16; Temp 98.1(O); Pulse Ox 94% on R/A; Weight 172.82 kg; nj1 Height 6 ft. 0 in. ; 11:04 BP 161 / 116; Pulse 92; Resp 18; Pulse Ox 96% on R/A; ld1 12:35 BP 74 / 43; Pulse 81; Resp 12; Pulse Ox 97% on R/A; MAP 54 mmHg; nj1 12:55 BP 81 / 52; Pulse 88; Resp 16; Pulse Ox 98% on R/A; MAP 62 mmHg; nj1 13:23 BP 103 / 70; Pulse 86; Resp 19; Pulse Ox 96% on R/A; MAP 76 mmHg; nj1 13:40 BP 82 / 68; Pulse 90; Resp 20; Pulse Ox 96% on R/A; MAP 75 mmHg; nj1 14:25 BP 89 / 55; Pulse 81; Resp 16; Pulse Ox 100% ; MAP 65 mmHg; bc6 14:50 BP 92 / 57; Pulse 95; Resp 18; Pulse Ox 97% on R/A; ld1 15:09 BP 95 / 58; Pulse 86; Resp 21; Pulse Ox 97% on R/A; MAP 71 mmHg; nj1 16:06 BP 109 / 79; Pulse 83; Resp 18; Pulse Ox 94% on R/A; MAP 91 mmHg; nj1 17:33 BP 90 / 72; Pulse 89; Resp 16; Pulse Ox 95% on R/A; MAP 80 mmHg; nj1 18:43 BP 115 / 82; Pulse 90; Resp 14; Temp 97.1(TE); Pulse Ox 98% on R/A; nj1 10:47 Body Mass Index 51.67 (172.82 kg, 182.88 cm) nj1 [place] Coma Score: 11:10 Eye Response: to voice(3). Motor Response: localizes pain(5). Verbal Response: nj1 confused(4). Total: 12. ED Course: 10:53 Patient arrived in ED. bc6 10:54 Andres Gallardo MD is Attending Physician. rt 11:05 Triage completed. nj1 11:05 Arm band placed on. nj1 11:05 EKG done, by ED staff, reviewed by Andres Gallardo MD. hb 11:10 Patient has correct armband on for positive identification. Bed in low position. Call [facility] light in reach. Side rails up X 1. Adult w/ patient. 11:19 Client placed on continuous cardiac and pulse oximetry monitoring. NIBP monitoring hb applied. magisterial district judge on. Pulse ox on. NIBP on. 11:21 Josie Olivia, RN is Primary Nurse. nj1 11:54 Chest Single View XRAY In Process Unspecified. EDMS 12:02 CT Head Brain wo Cont In Process Unspecified. EDMS 12:39 Notified ED physician of vital signs. nj1 13:18 Inserted saline lock: 20 gauge in right antecubital area, using aseptic technique. nj1 Blood collected. Ultrasound guided. Catheter tip well visualized within vasculature during placement. 14:25 Notified ED physician of vital signs. nj1 15:52 Bryanna Mclaughlin MD is Hospitalizing Provider. rt 17:40 IV discontinued, intact, bleeding controlled, Pressure dressing applied. nj1 17:45 Repositioned patient. Disposable underwear changed, had bowel movement. nj1 19:00 Report given to Diego AGUIRRE and Jeff AGUIRRE. nj1 19:30 Notified Nurse Practitioner and/or Physician Professional System Administrator of Blood sugar 62. nj1 20:02 No provider procedures requiring assistance completed. Inserted midline [id number], right rv upper arm. Administered Medications: 12:42 Drug: Sodium Chloride 0.9% IVPB 1000 ml IVPB once {Note: Right shoulder.} Route: IVPB; nj1 Site: Other; 14:00 Follow up: IV Status: Completed infusion; IV Intake: 1000ml nj1 14:50 Drug: NS 0.9% IV 500 ml IV at bolus once Route: IV; Rate: bolus; Site: right ld1 antecubital; 16:05 Follow up: IV Status: Completed infusion; IV Intake: 500ml nj1 14:50 Drug: Albumin IVPB 25 grams 100 ml IVPB once; (Note: Albumin 25% concentration) Volume: ld1 100 ml; Route: IVPB; Site: right antecubital; 16:04 Follow up: IV Status: Completed infusion; IV Intake: 100ml nj1 15:02 Drug: Solu-CORTEF IVP 100 mg IVP once Route: IVP; Site: right upper arm; ld1 16:04 Follow up: Response: No adverse reaction nj1 15:59 Drug: Cefepime IVPB 1 grams IVPB at 200 ml/hr once over 30 mins; (mix in NS 100 mL) nj1 Route: IVPB; Rate: 200 ml/hr; Infused Over: 30 mins; Site: right antecubital; 19:38 Drug: D10 in Water IVP 250 ml IVP once {Note: Right shoulder.} Route: IVP; Site: Other; nj1 Medication: 20:03 VIS not applicable for this client. rv Intake: 14:00 IV: 1000ml; Total: 1000ml. nj1 16:04 IV: 100ml; Total: 1100ml. nj1 16:05 IV: 500ml; Total: 1600ml. nj Outcome: 15:52 Decision to Hospitalize by Provider. rt 20:03 Admitted to ICU accompanied by nurse, via stretcher, room 5, with chart, Report called rv to moy aguirre 20:03 Condition: good 20:03 Instructed on the need for admit, 20:04 Patient left the ED. rv Signatures: Dispatcher [employer] EDMS Meseret Lr RN RN Zenon Sweet RN RN rv Moy Soares, RN RN ld1 Andres Gallardo MD MD rt Obdulia Alvarez 6 Josie Olivia RN RN nj1 Corrections: (The following items were deleted from the chart) 16:06 14:34 Reassessment: nj nj1 18:55 18:46 Reassessment: Report paperwork faxed to ICU at this time. Neha notified at nj1 [id number] nj
--- NOTE | 2023-11-04 16:44 | P.HP ---
Certification for Inpatient Patient admitted to: Inpatient With expected LOS: >2 Midnights Patient will require the following post-hospital care: [facility] Practitioner: I am a practitioner with admitting privileges, knowledge of patient current condition, hospital course, and medical plan of care. Services: Services provided to patient in accordance with Admission requirements found in Title 42 Section 412.3 of the Code of Federal Regulations <Christina Lo - Last Filed: 11/04/23 20:05> Patient History Date of Service: 11/04/23 Primary Care Provider: Lillian Reason for admission: Hypotension, decreased level of consciousness, hypoglycemia History of Present Illness: Mr. Raya is a 68-year-old gentleman with a past medical history of ESRD, hypertension, hypotension, morbid obesity, gout, GERD, hyperlipidemia, chronic A-fib, PE, ZEV, and polycystic kidneys who presents with hypotension, hypoglycemia, and decreased level of consciousness. Most all of his history is obtained per medical records. Dr. Franklin is this patient's Tuckpointer. Mr. Raya has dialysis Tuesday, Tuesday, and Tuesday per a left AV shunt access. Apparently the patient was seen in the emergency department yesterday with a complaint of left flank pain. An abdomen and pelvis CT without contrast was read as "interval resolution of the sizable hematoma of the left renal superior pole tracking posteriorly, likely related to hemorrhage arising from a renal cyst. Partial improvement adjacent perinephric fat stranding." As today is a dialysis day, EMS presented to Mr. Raya' home to transport him to dialysis. He was found to be poorly responsive, hypotensive, and hypoglycemic. In the emergency department he was given a 1500ml fluid bolus, D10, 25 gm albumin, and Solu-Cortef 100mg. His blood pressure is documented as low as 74/43, heart rate 81, respiratory rate 12, pulse ox on room air 97%, this improved after treatment to a blood pressure of 102/65. Upon further review of records, Mr. Raya frequently requires midodrine to maintain a systolic over 100. Laboratory evaluation in the emergency department shows a white count of 11 with 77.4% neutrophils, H/H of 11.5/37.7, platelets of 245. Chemistry shows sodium of 135, potassium 4.6, chloride 99, bicarb 30, BUN 32, creatinine 8.62, with a glucose of 77. His blood sugar did drop to 43 and he received D10. His most recent blood sugar is 116. Procalcitonin and TSH are pending. Of concern secondary to the CT report from yesterday with the hemorrhagic renal cyst, coagulation studies show PT of 66.9 with an INR of 6.42, and a PTT of 72.2. Secondary to Mr. Raya's history of A-fib and a PE in February 2023, his home meds include Eliquis 2.5 mg p.o. twice daily. FFP has been ordered from the lab. We will admit Mr. Raya to ICU for further evaluation and treatment with consultation to nephrology. Home medications list reviewed: Yes - Past Medical/Surgical History Has patient received pneumonia vaccine in the past: No Diabetic: No -: Diverticulitis -: HTN -: Gout -: ESRD -: HD on tue, tue, tue -: Asbestosis -: Obstructive sleep apnea with CPAP at night -: Adrenal insufficiency -: Cardiac catheterization -: Appendectomy -: Cholecystectomy -: Left knee arthroscopy Psychosocial/ Personal History: Patient is . States he lives at home and she takes care of him. He states he is bed-bound - Family History Family History: Reviewed- Non-Contributory - Social History Smoking Status: Unknown if ever smoked Alcohol use: No CD- Drugs: No Caffeine use: No Place of Residence: Home <Christina Lo - Last Filed: 11/04/23 20:05> Date of Service: 11/04/23 <Bryanna Mclaughlin - Last Filed: 11/04/23 21:56> Allergies amlodipine besylate [From Norvasc] Allergy (Verified 01/25/22 13:59) Anaphylaxis, lower leg swelling amoxicillin [From Augmentin] Allergy (Verified 01/25/22 13:59) Nausea/Vomiting/Diarrhea clavulanic acid [From Augmentin] Allergy (Verified 01/25/22 13:59) Nausea/Vomiting/Diarrhea Home Medications: Cinacalcet HCl [Sensipar*] 1 tab PO BEDTIME 09/02/13 Docusate [Colace Cap*] 1 tab PO BID 09/02/13 Omeprazole [Prilosec] 40 mg PO DAILY 09/02/13 allopurinoL [Zyloprim*] 100 mg PO BEDTIME 09/02/13 Apixaban [Eliquis *] 2.5 mg PO BID 09/26/20 Albuterol Sulfate [Proair Hfa] 2 puff IH Q6HP PRN 01/25/22 L. Acidophilus/Bifido. Longum [Probiotic Pearls Acidophilus] 1 each PO BID 01/25/22 Mesalamine [Pentasa] 4 cap PO BID 01/25/22 Multivitamin [One-Daily Multi-Vitamin] 1 each PO DAILY 01/25/22 Simvastatin 20 mg PO BEDTIME 01/25/22 Tramadol HCl [Ultram] 50 mg PO Q6H 01/25/22 Gabapentin 300 mg PO DAILY #30 cap 08/04/22 Hydrocortisone [Cortef*] 20 mg PO BID #120 tab 08/04/22 Metoprolol Tartrate [Lopressor*] 50 mg PO BID #60 tab 08/04/22 Midodrine HCl [Proamatine*] 5 mg PO TID #90 tab 08/04/22 Review of Systems 10-point ROS is otherwise unremarkable General: As per HPI Neurological: As per HPI <Christina Lo - Last Filed: 11/04/23 20:05> Physical Examination - Physical Exam General: Obese, Other (poorly responsive, will answer questions appropriately) HEENT: Atraumatic, Normocephalic Neck: Supple Respiratory: Diminished Cardiovascular: Normal pulses, Other (left av shunt), Irregular heart rate/rhythm Capillary refill: <2 Seconds Gastrointestinal: Normal bowel sounds, Tenderness (left flank) Musculoskeletal: No clubbing Integumentary: Other (unable to turn and undress on eval) Neurological: Abnormal strength, Abnormal tone, Abnormal affect Lymphatics: No axilla or inguinal lymphadenopathy External genitalia: Deferred Rectal: Deferred - Studies Laboratory Data (last 24 hrs) 11/04/23 11/04/23 11/04/23 13:18 13:18 13:18 WBC 11.00 H Hgb 11.5 L D Hct 37.7 L Plt Count 245 PT 66.9 H INR 6.42 H* APTT 72.2 H Sodium 135 L Potassium 4.6 BUN 32 H Creatinine 8.62 H Glucose 77 Total Bilirubin 0.5 AST 21 ALT 21 Alkaline Phosphatase 104 <Christina Lo - Last Filed: 11/04/23 20:05> - Studies Laboratory Data (last 24 hrs) 11/04/23 11/04/23 11/04/23 13:18 13:18 13:18 WBC 11.00 H Hgb 11.5 L D Hct 37.7 L Plt Count 245 PT 66.9 H INR 6.42 H* APTT 72.2 H Sodium 135 L Potassium 4.6 BUN 32 H Creatinine 8.62 H Glucose 77 Total Bilirubin 0.5 AST 21 ALT 21 Alkaline Phosphatase 104 <Bryanna Mclaughlin - Last Filed: 11/04/23 21:56> Assessment and Plan - Plan Adrenal insufficiency hemorrhagic renal cyst 1 dose Cefepime given in ED Solu-cortef 100mg IV in ED. 10mg po BID Florinef 0.1mg po daily Midodrine 5mg po TID monitor bp and electrolytes Q2h FSBS, H/H q 8h 1 unit FFP infusion Renal diet Hold Eliquis until consultation with Nephro ESRD Consult Dr. Franklin Hypertension Hold BP meds for hypotension Lipidemia Atorvastatin 10mg po q hs A-fib SCDs, monitor rate and rhythm May have to give metoprolol and increase midodrine prn ZEV BiPap at HS Albuterol Nebs q 4h GERD protonix Bedbound state skin protective measures' air mattress T,C, DB q 2 hours DVT/GI prophylaxis SCDs/Protonix Code status Full - Advance Directives Does patient have a Living Will: No Does patient have a Durable POA for Healthcare: No <Christina Lo - Last Filed: 11/04/23 20:05> - Plan Pt seen and examined. I agree with the note by the OCCUPATIONAL ANALYST. Pt is a 68yo male with past medical history of ESRD on HD MWF, hypertension, hypotension, morbid obesity, gout, GERD, hyperlipidemia, chronic A-fib, PE, ZEV, and polycystic kidneys who presents with hypotension, hypoglycemia, and decreased responsiveness. 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 This history is from chart review. Of note pt came to the ER yesterday with abdominal pain. CT abd showed interval resolution of the sizable hematoma of the left renal superior pole tracking po steriorly, likely related to hemorrhage arising from a renal cyst. When EMS came to his house to pick him up for dialysis; pt was hypotensive, hypoglycemic and less responsive. Lab studies showed WBC 11 with 77.4% neutrophils, Hgb 11.5, platelets of 245, sodium of 135, potassium 4.6, chloride 99, bicarb 30, BUN 32, creatinine 8.62, with a glucose of 77. His blood sugar did drop to 43 and he received D10. On admission, pt received IVF bolus and solu-cortef. At bedside, pt was less responsive. A/P: Adrenal insufficiency in the midst of hemorrhagic renal scyst. Will continue midodrine, florinef, solu-cortef. Consulted Nephrology. Pt received cefepime in the ER. Supratherapeutic INR: INR is 6.42. Will give FFP and trend INR. Hemorrhagic renal cyst: Will hold Eliquis Morbid obesity: Pt will benefit from weight loss ESRD: Will continue HD per schedule Will continue home meds for other chronic medical problems. <Bryanna Mclaughlin - Last Filed: 11/04/23 21:56>
[2023-11-04] MEDS ORDERED: DOCUSATE NA 100 MG CAP PO PRN (17:13)
[2023-11-04] MEDS ORDERED: GABAPENTIN 100 MG CAP PO PRN (17:13)
[2023-11-04] MEDS ORDERED: SODIUM CHLORIDE 0.9% 10ML INJ IV PRN (17:13)
[2023-11-04] MEDS: ALBUTEROL 2.5 MG/3 ML NEB SOL NEB SCH (19:00)
[2023-11-04] MEDS: MIDODRINE HCL 5 MG TABLET PO SCH (22:28)
[2023-11-04] MEDS: ATORVASTATIN 10 MG TAB PO SCH (22:28)
[2023-11-04] MEDS: HYDROCORTISONE 10 MG TAB PO SCH (22:45)
[2023-11-05] MEDS: NA CHLORIDE 0.9% 250 ML ONE (00:50)
[2023-11-05 05:48] LABS: Absolute Lymphocytes (CBC) 0.4 K/uL (0.7-4.9); Absolute Monocytes 0.5 K/uL (0.1-1.3); Absolute Neutrophil 7.8 K/uL (1.8-8.0); Basophils % 0.3 % (0-1.3); Eosinophils % 0.1 % (0-4.4); Lymphocytes % 4.9 % (15.3-44.8); MCH 25.8 pg (27.0-35.0); MCHC 31.3 g/dL (32.0-36.0); MCV 82.3 fL (80-100); MPV 8.8 fL (7.6-11.3); Monocytes % 5.6 % (3.3-12.3); Neutrophils % 89.1 % (41.7-73.7); Nucleated Red Blood Cells % 0.1 % (0-0); Platelets 216 thou/uL (152-406); RBC Red Blood Cell Count 4.25 M/uL (4.33-5.43); Red Cell Distribution Width 18.1 % (12.1-15.2)
[2023-11-05 05:50] LABS: PT Prothrombin Time 53.3 SECONDS (9.5-12.5); PTT, Activated Partial Thromb 66.8 SECONDS (24.3-36.9); Protime INR 5.08
[2023-11-05 06:04] LABS: Albumin 2.6 g/dL (3.4-5.0); Albumin/Globulin Ratio 0.6 (1.1-1.8); Bilirubin Total 0.4 mg/dL (0.2-1.0); Globulin 4.1 g/dL (2.3-3.5); Protein, Total 6.7 g/dL (6.4-8.2)
[2023-11-05 06:05] LABS: Anion Gap 10.4 mEq/L (5.0-15.0)
[2023-11-05 06:18] LABS: Magnesium 2.3 mg/dL (1.6-2.4); Potassium 5.4 mEq/L (3.5-5.1)
[2023-11-05] MEDS: D50W 25 GM/50 ML SYRINGE IV ONE (08:09)
[2023-11-05 08:18] VITALS: BMI 45.3
[2023-11-05] MEDS ORDERED: D10W 250 ML IV PRN (08:19)
[2023-11-05] MEDS: PANTOPRAZOLE 40 MG INJ IVP SCH (08:26)
[2023-11-05] MEDS: D10W 250 ML IV ONE (08:26)
[2023-11-05] MEDS: FLUDROCORTISONE 0.1 MG TAB PO SCH (08:26)
[2023-11-05] MEDS ORDERED: D50W 25 GM/50 ML SYRINGE IV ONE (09:00)
--- NOTE | 2023-11-05 10:56 | P.PN ---
Subjective Date of Service: 11/05/23 Primary Care Provider: Lillian Chief Complaint: Hypotension, decreased level of consciousness, hypoglycemia Pt is resting comfortably in bed. He is more alert and oriented. Pt received D10 bolus this am. Waiting for Nephrology eval. No other complaints. Review of Systems General: Unremarkable Eyes: Unremarkable ENT: Unremarkable Respiratory: Unremarkable Cardiovascular: Unremarkable Gastrointestinal: Unremarkable Genitourinary: Unremarkable Musculoskeletal: Unremarkable Integumentary: Unremarkable Neurological: Unremarkable Lymphatics: Unremarkable Physical Examination - Vital Signs Temperature: 97.7 F Blood Pressure: 109/67 Pulse: 85 Respirations: 20 Pulse Ox (%): 100 - Physical Exam General: Alert, In no apparent distress, Oriented x3, Obese HEENT: Atraumatic, Normocephalic, PERRLA Neck: Supple, 2+ carotid pulse no bruit, JVD not distended Respiratory: Clear to auscultation bilaterally, Normal air movement Cardiovascular: No edema, Normal pulses, Regular rate/rhythm, Normal S1 S2 Capillary refill: <2 Seconds Gastrointestinal: Normal bowel sounds, Soft and benign, Non-distended Musculoskeletal: No clubbing, No swelling Integumentary: No rashes, No breakdown Neurological: Normal speech, Normal strength at 5/5 x4 extr, Normal tone Lymphatics: No axilla or inguinal lymphadenopathy - Studies Laboratory Data (last 24 hrs) 11/04/23 11/04/23 11/04/23 13:18 13:18 13:18 WBC 11.00 H Hgb 11.5 L D Hct 37.7 L Plt Count 245 PT 66.9 H INR 6.42 H* APTT 72.2 H Sodium 135 L Potassium 4.6 BUN 32 H Creatinine 8.62 H Glucose 77 Total Bilirubin 0.5 AST 21 ALT 21 Alkaline Phosphatase 104 Microbiology Data (last 24 hrs): 11/04/23 11:46 Blood - Blood Anaerobic Blood Culture - Final 11/04/23 12:30 Blood - Blood Anaerobic Blood Culture - Final Assessment And Plan - Plan Adrenal insufficiency in the midst of hemorrhagic renal scyst. Will continue midodrine, florinef, solu-cortef. Consulted Nephrology. Pt received cefepime in the ER. Supratherapeutic INR: INR is 5.08<- 6.42. Will give another unit of FFP and trend INR. Hemorrhagic renal cyst: Will hold Eliquis Morbid obesity: Pt will benefit from weight loss ESRD: Will continue HD per schedule. Consulted Nephrology. Hypertension: Hold BP meds for hypotension HLD: Atorvastatin 10mg po q hs A-fib: Will continue telemetry. Hold BB and eliquis. ZEV: Continue CPAP at night. GERD: protonix Bedbound state: Continue Q2h change in position. Morbid Obesity: Pt will benefit from weight loss. Pressure ulcer: Continue wound care. DVT ppx: SCD GI ppx: Protonix Code status: Full
[2023-11-05] MEDS: MIDODRINE HCL 5 MG TABLET ONE (15:33)
[2023-11-05] MEDS: MIDODRINE HCL 5 MG TABLET PO ONE (15:35)
[2023-11-05] MEDS: ALBUMIN HUMAN 25% 100 ML IV ONE (15:38)
--- NOTE | 2023-11-05 16:06 | CON ---
Date of Consultation: 11/05/2023 Reason For Consultation: ESRD, on dialysis. History Of Present Illness: Mr. Raya is a 68-year-old male with past medical history significant for history of ESRD, on dialysis, multiple medical problems including polycystic kidney disease, who was recently in the emergency room because of a cyst that had burst, but CT scan showed some resoluti on. When EMS went to pick him up for dialysis, he was found to be unresponsive, hypotensive and hypo glycemic. He has been admitted to the ICU and is currently being treated for adrenal insufficiency. The patient is lethargic but is able to answer questions. Past Medical History: Significant for history of ESRD, on dialysis, hypertension, history of adrenal insufficiency in the past, polycystic kidney disease, chronic hypotension, on midodrine. Social History: Lives at home. Family History: Noncontributory. Review of Systems: Unable to be obtained. Physical Examination: Vital Signs: At this time are showing temperature of 97.9, pulse rate of 88, respiratory rate of 16, and blood pressure 97/64. General: He is a morbidly obese male in no acute distress. HEENT: Atraumatic head. Lungs: Auscultation of lungs revealed decreased breath sounds at bases. Heart: Auscultation of heart revealed regular rate and rhythm. Extremities: No evidence of edema. Neurological: He is arousable. He is alert and awake, but confused. Laboratory Data: Showing labs consistent with ESRD. Potassium of 5.4. CBC showing stable hemoglobi n, hematocrit, and platelet count. Current Medications: Have been reviewed in detail. Impression: 1.ESRD, on dialysis. 2.Hypotension secondary to adrenal insufficiency. 3.Hypoglycemia, improving. 4.Anemia secondary to chronic disease. Plan: The patient is slowly improving. We will plan for gentle dialysis today with minimal UF. Con tinue fludrocortisone and hydrocortisone at this time. He is also on midodrine for hypotension. Gen tle ultrafiltration and follow up closely. Anemia is stable at this time. Altered mental status is also improving. Monitor hypoglycemia and encourage p.o. intake. We will follow up closely. VV/MODL Voice ID: [id number] Report ID: [id number]
[2023-11-06 04:29] LABS: Absolute Basophils 0.1 K/uL (0-0.5); Absolute Lymphocytes (CBC) 0.4 K/uL (0.7-4.9); Absolute Monocytes 0.7 K/uL (0.1-1.3); Absolute Neutrophil 8.5 K/uL (1.8-8.0); Basophils % 0.9 % (0-1.3); Eosinophils % 0.4 % (0-4.4); Hematocrit 34.3 % (39.6-49.0); Lymphocytes % 4.1 % (15.3-44.8); MCH 26.1 pg (27.0-35.0); MCHC 32.3 g/dL (32.0-36.0); MPV 8.1 fL (7.6-11.3); Monocytes % 7.2 % (3.3-12.3); Neutrophils % 87.4 % (41.7-73.7); Nucleated Red Blood Cells % 0.1 % (0-0); Platelets 205 thou/uL (152-406); RBC Red Blood Cell Count 4.23 M/uL (4.33-5.43); Red Cell Distribution Width 18.3 % (12.1-15.2)
[2023-11-06 04:49] LABS: Albumin 2.8 g/dL (3.4-5.0); Albumin/Globulin Ratio 0.7 (1.1-1.8); Anion Gap 8.6 mEq/L (5.0-15.0); Bilirubin Total 0.4 mg/dL (0.2-1.0); Magnesium 2.2 mg/dL (1.6-2.4); Phosphorus 4.1 mg/dL (2.5-4.9); Potassium 4.6 mEq/L (3.5-5.1); Protein, Total 6.8 g/dL (6.4-8.2)
--- NOTE | 2023-11-06 08:27 | P.PN ---
Subjective Date of Service: 11/06/23 Primary Care Provider: Lillian Chief Complaint: Hypotension, decreased level of consciousness, hypoglycemia Pt is resting comfortably in bed. He is more alert and oriented. Pt is eating more. glucose is 112 s/p D10 bolus. Pt has gentle ultrafiltration yesterday. No other complaints. Review of Systems General: Unremarkable Eyes: Unremarkable ENT: Unremarkable Respiratory: Unremarkable Cardiovascular: Unremarkable Gastrointestinal: Unremarkable Genitourinary: Unremarkable Musculoskeletal: Unremarkable Integumentary: Unremarkable Neurological: Unremarkable Lymphatics: Unremarkable Physical Examination - Vital Signs Temperature: 98 F Blood Pressure: 105/74 Pulse: 101 Respirations: 15 Pulse Ox (%): 98 - Physical Exam General: Alert, In no apparent distress, Oriented x3, Obese HEENT: Atraumatic, Normocephalic, PERRLA Neck: Supple, 2+ carotid pulse no bruit, JVD not distended Respiratory: Clear to auscultation bilaterally, Normal air movement Cardiovascular: No edema, Normal pulses, Regular rate/rhythm, Normal S1 S2 Capillary refill: <2 Seconds Gastrointestinal: Normal bowel sounds, Soft and benign Musculoskeletal: No clubbing, No swelling Integumentary: No rashes, No breakdown Neurological: Normal speech, Normal strength at 5/5 x4 extr, Normal tone, Sensation intact Lymphatics: No axilla or inguinal lymphadenopathy - Studies Microbiology Data (last 24 hrs): 11/04/23 12:30 Blood - Blood Anaerobic Blood Culture - Final 11/04/23 11:46 Blood - Blood Anaerobic Blood Culture - Final Assessment And Plan - Plan Adrenal insufficiency in the midst of hemorrhagic renal scyst. Will continue midodrine, florinef, solu-cortef. Consulted Nephrology. Pt received cefepime in the ER. Supratherapeutic INR: INR is 5.08<- 6.42. Will give another unit of FFP and trend INR. Hemorrhagic renal cyst: Will hold Eliquis Morbid obesity: Pt will benefit from weight loss ESRD: Will continue HD per schedule. Consulted Nephrology. Hypertension: Hold BP meds for hypotension HLD: Atorvastatin 10mg po q hs A-fib: Will continue telemetry. Hold BB and eliquis. ZEV: Continue CPAP at night. GERD: protonix Bedbound state: Continue Q2h change in position. Morbid Obesity: Pt will benefit from weight loss. Pressure ulcer: Continue wound care. DVT ppx: SCD GI ppx: Protonix Code status: Full Dispo: Will dc soon
[2023-11-06] MEDS: NA CHLORIDE 0.9% 100 ML ONE (09:09)
[2023-11-06 11:20] LABS: PT Prothrombin Time 46.4 SECONDS (9.5-12.5); Protime INR 4.4
--- NOTE | 2023-11-06 13:38 | P.DS ---
Admission Date: 11/04/23 Discharge Date: 11/06/23 Primary Care Provider: Lillian Discharge Condition: GOOD Reason for Admission: Hypotension, decreased level of consciousness, hypoglycemia Brief History of Present Illness: Mr. Raya is a 68-year-old gentleman with a past medical history of ESRD, hypertension, hypotension, morbid obesity, gout, GERD, hyperlipidemia, chronic A-fib, PE, ZEV, and polycystic kidneys who presents with hypotension, hypoglycemia, and decreased level of consciousness. Most all of his history is obtained per medical records. Dr. Franklin is this patient's Washer Off. Mr. Raya has dialysis Tuesday, Tuesday, and Tuesday per a left AV shunt access. Apparently the patient was seen in the emergency department yesterday with a complaint of left flank pain. An abdomen and pelvis CT without contrast was read as "interval resolution of the sizable hematoma of the left renal superior pole tracking posteriorly, likely related to hemorrhage arising from a renal cyst. Partial improvement adjacent perinephric fat stranding." As today is a dialysis day, EMS presented to Mr. Raya' home to transport him to dialysis. He was found to be poorly responsive, hypotensive, and hypoglycemic. In the e mergency department he was given a 1500ml fluid bolus, D10, 25 gm albumin, and Solu-Cortef 100mg. His blood pressure is documented as low as 74/43, heart rate 81, respiratory rate 12, pulse ox on room air 97%, this improved after treatment to a blood pressure of 102/65. Upon further review of records, Mr. Raya frequently requires midodrine to maintain a systolic over 100. Laboratory evaluation in the emergency department shows a white count of 11 with 77.4% neutrophils, H/H of 11.5/37.7, platelets of 245. Chemistry shows sodium of 135, potassium 4.6, chloride 99, bicarb 30, BUN 32, creatinine 8.62, with a glucose of 77. His blood sugar did drop to 43 and he received D10. His most recent blood sugar is 116. Procalcitonin and TSH are pending. Of concern secondary to the CT report from yesterday with the hemorrhagic renal cyst, coagulation studies show PT of 66.9 with an INR of 6.42, and a PTT of 72.2. Secondary to Mr. Raya's history of A-fib and a PE in February 2023, his home meds include Eliquis 2.5 mg p.o. twice daily. FFP has been ordered from the lab. We will admit Mr. Raya to ICU for further evaluation and treatment with consultation to nephrology. Hospital Course: Pt is a 68yo male with past medical history of ESRD on HD MWF, hypertension, hypotension, morbid obesity, gout, GERD, hyperlipidemia, chronic A-fib, PE, ZEV, and polycystic kidneys who presented with hypotension, hypoglycemia, and decreased responsiveness. 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 This history was from chart review. When EMS came to his house to pick him up for dialysis; pt was hypotensive, hypoglycemic and less responsive. Lab studies showed WBC 11 with 77.4% neutrophils, Hgb 11.5, platelets of 245, sodium of 135, potassium 4.6, chloride 99, bicarb 30, BUN 32, creatinine 8.62, with a glucose of 77. His blood sugar dropped to 43 and he received D10. On admission, pt received IVF bolus and solu-cortef. We admitted pt for adrenal insufficiency in the midst of hemorrhagic renal cyst. We continued midodrine, florinef, solu-cortef. We held Eliquis. The Washer Off did dialysis and removed 1 Liter of fluid. Pt also had supratherapeutic INR. (6.42) We gave FFP and it improved to 4.4. We held Eliquis and advised pt to stop taking the Eliquis due to the hemorrhagic renal cyst. Will follow up with PCP to resume Eliquis. The hypoglycemia resolved and pt ate all her meals. We continued home med for other chronic medical problems. Pt was in NAD prior to discharge. Vital Signs/Physical Exam: Temp Pulse Resp BP Pulse Ox 97.5 F 96 H 18 132/77 97 11/06/23 12:00 11/06/23 13:00 11/06/23 13:00 11/06/23 13:00 11/06/23 13:00 Laboratory Data at Discharge: WBC 9.80 thou/uL (4.3-10.9) 11/06/23 04:20 Hgb 11.0 g/dL (13.6-17.9) L 11/06/23 04:20 Hct 34.3 % (39.6-49.0) L 11/06/23 04:20 Plt Count 205 thou/uL (152-406) 11/06/23 04:20 PT 46.4 SECONDS (9.5-12.5) H 11/06/23 11:02 INR 4.40 11/06/23 11:02 APTT 66.8 SECONDS (24.3-36.9) H 11/05/23 05:00 Sodium 133 mEq/L (136-145) L 11/06/23 04:20 Potassium 4.6 mEq/L (3.5-5.1) D 11/06/23 04:20 BUN 29 mg/dL (7-18) H 11/06/23 04:20 Creatinine 7.15 mg/dL (0.70-1.30) H 11/06/23 04:20 Glucose 112 mg/dL (74-106) H 11/06/23 04:20 Phosphorus 4.1 mg/dL (2.5-4.9) 11/06/23 04:20 Magnesium 2.2 mg/dL (1.6-2.4) 11/06/23 04:20 Total Bilirubin 0.4 mg/dL (0.2-1.0) 11/06/23 04:20 AST 19 U/L (15-37) 11/06/23 04:20 ALT 20 U/L (16-61) 11/06/23 04:20 Alkaline Phosphatase 94 U/L (45-117) 11/06/23 04:20 Triglycerides 88 mg/dL (<150) 11/05/23 05:00 Cholesterol 155 mg/dL (<200) 11/05/23 05:00 HDL Cholesterol 43 mg/dL (40-60) 11/05/23 05:00 Cholesterol/HDL Ratio 3.60 11/05/23 05:00 Home Medications: Cinacalcet HCl [Sensipar*] 1 tab PO BEDTIME 09/02/13 Docusate [Colace Cap*] 1 tab PO BID 09/02/13 Omeprazole [Prilosec] 40 mg PO DAILY 09/02/13 allopurinoL [Zyloprim*] 100 mg PO BEDTIME 09/02/13 Albuterol Sulfate [Proair Hfa] 2 puff IH Q6HP PRN 01/25/22 L. Acidophilus/Bifido. Longum [Probiotic Pearls Acidophilus] 1 each PO BID 01/25/22 Mesalamine [Pentasa*] 4 cap PO BID 01/25/22 Multivitamin [One-Daily Multi-Vitamin] 1 each PO DAILY 01/25/22 Simvastatin 20 mg PO BEDTIME 01/25/22 Tramadol HCl [Ultram] 50 mg PO Q6H 01/25/22 Gabapentin 300 mg PO DAILY #30 cap 08/04/22 Hydrocortisone [Cortef*] 20 mg PO BID #120 tab 08/04/22 Metoprolol Tartrate [Lopressor*] 50 mg PO BID #60 tab 08/04/22 Midodrine HCl [Proamatine*] 5 mg PO TID #90 tab 08/04/22 Atorvastatin Calcium [Lipitor*] 10 mg PO BEDTIME 30 Days #30 tab 11/06/23 Fludrocortisone [Florinef *] 0.1 mg PO DAILY 30 Days #30 tab 11/06/23 New Medications: Fludrocortisone [Florinef *] 0.1 mg PO DAILY 30 Days #30 tab Atorvastatin Calcium [Lipitor*] 10 mg PO BEDTIME 30 Days #30 tab Physician Discharge Instructions: Continue ad jose de jesus activity. Continue dialysis. Take home meds as prescribed. Follow up with PCP and Nephrology within 2 weeks. Diet: Renal Activity: Ad jose de jesus Followup: Adriel Snyder MD [Primary Care Provider] -
[2023-11-06 17:21] VITALS: BP 114/71; TEMP 98.2; O2SAT 98
[2023-11-07 04:26] LABS: Hepatitis B surface AG Interp. Nonreactive (Nonreactive)
[2023-11-07 04:27] LABS: Hepatitis B Surface Ab - Quant < 3.10 mIU/mL (<8.0)
[2023-11-07 04:28] LABS: HBsAG Nonreactive Report Report
--- NOTE | 2023-11-07 13:05 | EKG ---
Test Date: 2023-11-04 Test Time: 10:58:23 Buggy Runner: Eloise SI MEASUREMENT RESULTS: Intervals: Rate: 103 [place]: QRSD: 94 QT: 370 QTc: 484 [place]: P: [place]: QRS: 51 T: 16 INTERPRETIVE STATEMENTS: Atrial fibrillation with rapid ventricular response with premature ventricular or aberrantly conducted complexes Septal infarct, age undetermined Abnormal ECG Compared to ECG 03/11/2023 14:18:17 Ventricular premature complex(es) now present Myocardial infarct finding now present Electronically Signed On 11-07-23 12:57:49 CDT by London Duron
== END 2023-11-06 16:45 | disposition home or self-care (01) | DRG 643 ==
LOC: ER 10:48 → ERHOLD 16:50 → 3RD-ICU 18:44
PROVIDERS: ADMIT Hospitalist; ATTEND Hospitalist
PROC: 5A09457 Assistance with Respiratory Ventilation, 24-96 Consecutive Hours, Continuous Positive Airway Pressure (ICD-10-PCS; 2023-11-04)
PROC: 30233K1 Transfusion of Nonautologous Frozen Plasma into Peripheral Vein, Percutaneous Approach (ICD-10-PCS; principal; 2023-11-05)
PROC: 5A1D90Z Performance of Urinary Filtration, Continuous, Greater than 18 hours Per Day (ICD-10-PCS; 2023-11-05)
DX: E27.40 Unspecified adrenocortical insufficiency (principal); G93.41 Metabolic encephalopathy; N18.6 End stage renal disease; E87.1 Hypo-osmolality and hyponatremia; I12.0 Hypertensive chronic kidney disease with stage 5 chronic kidney disease or end stage renal disease; Z68.42 Body mass index [BMI] 45.0-49.9, adult; I48.20 Chronic atrial fibrillation, unspecified; N28.1 Cyst of kidney, acquired; N28.89 Other specified disorders of kidney and ureter; E11.22 Type 2 diabetes mellitus with diabetic chronic kidney disease; E11.65 Type 2 diabetes mellitus with hyperglycemia; E11.649 Type 2 diabetes mellitus with hypoglycemia without coma; D63.1 Anemia in chronic kidney disease; E66.01 Morbid (severe) obesity due to excess calories; E86.1 Hypovolemia; M10.9 Gout, unspecified; I95.9 Hypotension, unspecified; E78.5 Hyperlipidemia, unspecified; G47.33 Obstructive sleep apnea (adult) (pediatric); K21.9 Gastro-esophageal reflux disease without esophagitis; R74.01 Elevation of levels of liver transaminase levels; Z99.2 Dependence on renal dialysis; Z88.1 Allergy status to other antibiotic agents; Z74.01 Bed confinement status; Z79.01 Long term (current) use of anticoagulants; Z90.49 Acquired absence of other specified parts of digestive tract; Z79.899 Other long term (current) drug therapy; Z91.158 Patient's noncompliance with renal dialysis for other reason
CPT/HCPCS: 36415; 70450; 71045; 74176; 80053; 80061; 82140; 82947; 83605; 83690; 83735; 84100; 84145; 84443; 84484; 85018; 85025; 85610; 85730; 86706; 86850; 86900; 86901; 86927; 87040; 87340; 90935; 93005; 94640; 99284; 99285; C9113; J0692; J1720; J7030; J7040; J7050; J7613; P9017; P9047; P9059

== ENCOUNTER 2023-11-14 14:22 | Emergency (ER) | payer OTHER, MEDICARE ==
[2023-11-14 16:16] LABS: Absolute Basophils 0.1 K/uL (0-0.5); Absolute Eosinophils 0.1 K/uL (0-0.5); Absolute Lymphocytes (CBC) 0.7 K/uL (0.7-4.9); Absolute Monocytes 1.2 K/uL (0.1-1.3); Absolute Neutrophil 7.2 K/uL (1.8-8.0); Basophils % 0.8 % (0-1.3); Eosinophils % 1.4 % (0-4.4); Hematocrit 36.1 % (39.6-49.0); Hemoglobin 11.4 g/dL (13.6-17.9); Lymphocytes % 7.8 % (15.3-44.8); MCH 25.7 pg (27.0-35.0); MCHC 31.6 g/dL (32.0-36.0); MCV 81.3 fL (80-100); MPV 8.4 fL (7.6-11.3); Monocytes % 13.2 % (3.3-12.3); Neutrophils % 76.8 % (41.7-73.7); Nucleated Red Blood Cells % 0.2 % (0-0); Platelets 292 thou/uL (152-406); RBC Red Blood Cell Count 4.44 M/uL (4.33-5.43); Red Cell Distribution Width 18.6 % (12.1-15.2)
[2023-11-14 16:37] LABS: Anion Gap 6.7 mEq/L (5.0-15.0); Potassium 3.7 mEq/L (3.5-5.1)
--- NOTE | 2023-11-14 16:43 | EDPHYS ---
Physician Documentation [facility] Name: Adriel Raya Age: 68 yrs Sex: Male : 1955 Arrival Date: 11/14/2023 Time: 14:22 Bed 3 Private MD: ED Physician Andrew Penaloza HPI: 11/13 14:41 This 68 yrs old Black Male presents to ER via Unassigned with complaints of reported ec2 low BP. 14:41 Patient arrives today for evaluation of possible low blood pressure. Patient was ec2 undergoing dialysis, unclear if patient had completion of dialysis, patient reportedly had hypotensive blood pressures, EMS reports that they noted blood pressures in the systolics of 100s. Patient reports no lightheadedness, no chest pain, no difficulty breathing. Patient reports no nausea or vomiting, denies diarrhea, denies issues with p.o. intake. States that he is ready to go home.. Historical: - Allergies: 14:30 Augmentin; rs5 14:30 Norvasc; rs5 - PMHx: 14:30 Diverticulitis; Hypertension; Dialysis; rs5 - PSHx: 14:30 Appendectomy; Left arm dialysis fistula; rs5 - Immunization history:: Adult Immunizations up to date. - Infectious Disease History:: Denies. - Social history:: Smoking status: Patient denies any tobacco usage or history of. ROS: 14:41 Constitutional: as per hpi ec2 Exam: 14:41 Constitutional: GEN: NAD Head: atraumatic Eyes: EOMI Ears: External ears are ec2 normal. CV: regular rate LUNGS: no respiratory distress ABD: non-distended SKIN: no evidence of rashes MSK: no evidence of trauma NEURO: moves all extremities equally Vital Signs: 14:29 BP 115 / 65; Pulse 80; Resp 18; Temp 98.1(O); Pulse Ox 97% on R/A; rs5 14:46 BP 129 / 74; Pulse 80; Resp 15; Pulse Ox 100% on R/A; db 15:00 BP 117 / 107; Pulse 77; Resp 16; Pulse Ox 96% ; db 15:27 BP 117 / 107; Pulse 68; ec2 15:53 BP 120 / 57; Pulse 70; ec2 16:00 BP 119 / 75; Pulse 74; Resp 17; Pulse Ox 97% on R/A; db 17:00 BP 130 / 77; Pulse 77; Resp 18; Pulse Ox 95% on R/A; db 17:27 BP 130 / 77; Pulse 71; ec2 18:30 BP 110 / 78; Pulse 88; Resp 15; Pulse Ox 95% on R/A; db MDM: 14:34 Patient medically screened. ec2 14:41 Data reviewed: vital signs. ED course: Patient arrives today for evaluation of possible ec2 low blood pressure. Examination remarkable for well-appearing nontoxic dividual is otherwise in no acute distress. Will obtain CBC as well as metabolic profile as well as EKG. Evaluate for anemia, electrolyte disturbances, arrhythmia. Additionally considering possible dialysis complication.. 14:57 ED course: EKG independently reviewed and interpreted by me, shows rate of 72, no acute ec2 ST segment elevations, intervals are nonconcerning, does have atrial flutter, rate of 72.. 16:39 ED course: CBC is reassuring, slight anemia noted. Metabolic profile shows appropriate ec2 electrolytes, no actionable findings. Will d/c to home, return precautions given. . 17:27 ED course: Additionally also spoke to the patient's language tutor, patient is been ec2 having bouts of low blood pressure that has been dialysis related for the past several months. Ultimately suspect patient's dialysis runs are causing the patient's reported hypotension. No bouts of hypotension here in emergency department and patient remains asymptomatic. Patient remains appropriate for discharge home and can follow-up expectedly with his language tutor as needed.. 11/13 14:41 Order name: CBC with Diff; Complete Time: 17:39 ec2 11/13 14:41 Order name: BMP; Complete Time: 16:39 ec2 11/13 17:31 Order name: CBC Smear Scan; Complete Time: 17:39 EDMS 11/13 14:41 Order name: EKG - Nurse/Tech; Complete Time: 15:11 ec2 Administered Medications: No medications were administered Disposition Summary: 11/14/23 16:42 Discharge Ordered Notes: Location: Home ec2 Condition: Stable ec2 Diagnosis - Hypotension, unspecified ec2 - Dependence on renal dialysis ec2 Followup: ec2 - With: Private Physician - When: - Reason: Re-evaluation by your physician Discharge Instructions: - Discharge Summary Sheet ec2 - Hypotension ec2 Forms: - Medication Reconciliation Form ec2 - Antibiotic Education ec2 - Prescription Opioid Use ec2 - Patient Portal Instructions ec2 - Leadership Thank You Letter ec2 Signatures: Dispatcher [employer] Clifton Angela RN RN rs5 Andrew Penaloza MD MD ec2
--- NOTE | 2023-11-14 16:43 | ER ---
Nurse's Notes [facility] Name: Adriel Raya Age: 68 yrs Sex: Male : 1955 Arrival Date: 11/14/2023 Time: 14:22 Bed 3 Private MD: Diagnosis: Hypotension, unspecified;Dependence on renal dialysis Presentation: 11/13 14:29 Chief complaint: EMS states: "Blood pressure dropped to low 100's systolic and became rs5 dizzy during dialysis, felt like he was about to pass out but no LOC ". 14:29 Coronavirus screen: At this time, the client does not indicate any symptoms associated rs5 with coronavirus-19. Ebola Screen: No symptoms or risks identified at this time. Initial Sepsis Screen: Does the patient meet any 2 criteria? No. Patient's initial sepsis screen is negative. Does the patient have a suspected source of infection? No. Patient's initial sepsis screen is negative. Risk Assessment: Do you want to hurt yourself or someone else? Patient reports no desire to harm self or others. Onset of symptoms was November 14, 2023. 14:29 Method Of Arrival: EMS: [facility] rs5 14:29 Acuity: SAM 3 rs5 Triage Assessment: 14:30 General: Appears in no apparent distress. comfortable, Behavior is calm, cooperative. rs5 Pain: Denies pain. Historical: - Allergies: 14:30 Augmentin; rs5 14:30 Norvasc; rs5 - PMHx: 14:30 Diverticulitis; Hypertension; Dialysis; rs5 - PSHx: 14:30 Appendectomy; Left arm dialysis fistula; rs5 - Immunization history:: Adult Immunizations up to date. - Infectious Disease History:: Denies. - Social history:: Smoking status: Patient denies any tobacco usage or history of. Screenin:36 [facility] ED Fall Risk Assessment (Adult) History of falling in the last 3 months, db including since admission No falls in past 3 months (0 pts) Confusion or Disorientation No (0 pts) Intoxicated or Sedated No (0 pts) Impaired Gait No (0 pts) Mobility Assist Device Used No (0 pt) Altered Elimination Yes (1 pt) Score/Fall Risk Level 0 - 2 = Low Risk Oriented to surroundings, Maintained a safe environment. Abuse screen: Denies threats or abuse. Denies injuries from another. Nutritional screening: No deficits noted. Tuberculosis screening: No symptoms or risk factors identified. Assessment: 14:30 General: Appears in no apparent distress. comfortable, Behavior is calm, cooperative. rs5 Pain: Denies pain. Neuro: Level of Consciousness is awake, alert, obeys commands, Oriented to person, place, time, situation. Neuro: Denies weakness blurred vision dizziness. Cardiovascular: Patient's skin is warm and dry. Rhythm is regular. Respiratory: Airway is patent Respiratory effort is even, unlabored, Respiratory pattern is regular, symmetrical. GI: Abdomen is round non-distended, Abd is soft and non tender X 4 quads. : No signs and/or symptoms were reported regarding the genitourinary system. EENT: No signs and/or symptoms were reported regarding the EENT system. Derm: Skin is intact, Skin is pink, warm \\T\\ dry. Musculoskeletal: Range of motion: intact in all extremities. 15:30 Reassessment: Patient appears in no apparent distress at this time. Patient and/or db family updated on plan of care and expected duration. Pain level reassessed. Patient is alert, oriented x 3, equal unlabored respirations, skin warm/dry/pink. 16:30 Reassessment: Patient appears in no apparent distress at this time. Patient and/or db family updated on plan of care and expected duration. Pain level reassessed. Patient is alert, oriented x 3, equal unlabored respirations, skin warm/dry/pink. 17:33 Reassessment: Patient appears in no apparent distress at this time. Patient and/or db family updated on plan of care and expected duration. Pain level reassessed. Patient is alert, oriented x 3, equal unlabored respirations, skin warm/dry/pink. FAMILY CALLED AMBULANCE. DC PENDING AMBULANCE ARRIVAL. 17:43 Reassessment: DIALYSIS NURSE IS ON WAY TO REMOVED PT DIALYSIS ACCESS THAT WAS LEFT IN db FROM DIALYSIS. 18:15 Reassessment: Patient appears in no apparent distress at this time. Patient and/or db family updated on plan of care and expected duration. Pain level reassessed. Patient is alert, oriented x 3, equal unlabored respirations, skin warm/dry/pink. DIALYSIS NURSE AT PATIENT BEDSIDE REMOVING DIALYSIS EXTERNAL ACCESS. PT STATES EMS ETA IS 1 HOUR. 18:47 Reassessment: Patient appears in no apparent distress at this time. Patient and/or db family updated on plan of care and expected duration. Pain level reassessed. Patient is alert, oriented x 3, equal unlabored respirations, skin warm/dry/pink. 18:58 Reassessment: EMS ARRIVED FOR PATIENT TRANSPORT. db Vital Signs: 14:29 BP 115 / 65; Pulse 80; Resp 18; Temp 98.1(O); Pulse Ox 97% on R/A; rs5 14:46 BP 129 / 74; Pulse 80; Resp 15; Pulse Ox 100% on R/A; db 15:00 BP 117 / 107; Pulse 77; Resp 16; Pulse Ox 96% ; db 15:27 BP 117 / 107; Pulse 68; ec2 15:53 BP 120 / 57; Pulse 70; ec2 16:00 BP 119 / 75; Pulse 74; Resp 17; Pulse Ox 97% on R/A; db 17:00 BP 130 / 77; Pulse 77; Resp 18; Pulse Ox 95% on R/A; db 17:27 BP 130 / 77; Pulse 71; ec2 18:30 BP 110 / 78; Pulse 88; Resp 15; Pulse Ox 95% on R/A; db ED Course: 14:28 Patient arrived in ED. bd 14:29 Andrew Penaloza MD is Attending Physician. ec2 14:38 Clifton Maher, YOEL is Primary Nurse. rs5 14:41 Triage completed. rs5 16:12 Inserted saline lock: 20 gauge in right antecubital area, using aseptic technique. db Blood collected. 17:30 Arm band placed on Patient placed in an exam room. db 17:36 Patient has correct armband on for positive identification. Bed in low position. Call db light in reach. Side rails up X2. Provided Education on: DISCHARGE AND FOLLOWUP. Client placed on continuous cardiac and pulse oximetry monitoring. NIBP monitoring applied. manager monitoring on. Pulse ox on. NIBP on. Warm blanket given. 17:44 No provider procedures requiring assistance completed. db 18:47 IV discontinued, intact, bleeding controlled, No redness/swelling at site. db Administered Medications: No medications were administered Medication: 17:36 VIS not applicable for this client. db Outcome: 16:42 Discharge ordered by . ec2 17:43 Discharged to home PENDING AMBULANCE db 17:43 Condition: stable 17:43 Discharge instructions given to patient, Instructed on discharge instructions, follow up and referral plans. 19:02 Discharged to home via ambulance, db 19:03 Patient left the ED. db Signatures: [employer] Danielle, RN RN db Clifton Maher, RN RN rs5 Andrew Penaloza MD MD ec2 Corrections: (The following items were deleted from the chart) 14:43 14:29 Chief complaint: EMS states: "Became hypotensive and dizzy during dialysis and rs5 felt like he was about to pass out " rs5 17:38 17:38 Inserted saline lock: 20 gauge in right antecubital area, using aseptic db technique. Blood collected. db
[2023-11-14 17:30] LABS: White Blood Cell Scan OK (OK)
[2023-11-14 17:31] LABS: Blood Morphology Comment NOT SEEN (NOT SEEN); Platelet Estimate ADEQ
[2023-11-14 19:57] VITALS: BP 110/78; TEMP 98.1; O2SAT 95
--- NOTE | 2023-11-16 13:09 | EKG ---
Test Date: 2023-11-14 Test Time: 14:51:30 Analysis Reporting Developer: ELENA MEASUREMENT RESULTS: Intervals: Rate: 72 [place]: QRSD: 104 QT: 400 QTc: 438 [place]: P: [place]: QRS: 48 T: 47 INTERPRETIVE STATEMENTS: Atrial fibrillation Septal infarct, age undetermined Abnormal ECG Compared to ECG 11/04/2023 10:58:23 Ventricular premature complex(es) no longer present Myocardial infarct finding still present Electronically Signed On 11-16-23 13:07:19 CDT by London Duron
== END 2023-11-14 19:03 | disposition home or self-care (01) ==
LOC: ER 14:22
DX: I95.9 Hypotension, unspecified (principal); Z99.2 Dependence on renal dialysis; I10 Essential (primary) hypertension; Z88.1 Allergy status to other antibiotic agents; Z88.8 Allergy status to other drugs, medicaments and biological substances
CPT/HCPCS: 36415; 80048; 85025; 93005; 99284

== ENCOUNTER 2024-05-17 11:56 | Emergency (ER) | payer OTHER, MEDICARE ==
--- OUTSIDE RECORDS SUMMARY | 2024-05-17 12:13 | XMS REPORT | Continuity of Care Document ---
Author Name Unknown Address [address] [facility] [place] [place] [address] [facility] thconnect Address [address] 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 Name Role Phone [phone] Primary Care Physician Unavailab LARA Abreu NATASHA Attending Clinician DIEGO Ferraro Attending Clinician Unavailable FARHAN KUMAR Attending Clinician Unavailable MARGARITA CRUZ Attending Clinician Unavailable COLEEN HAYS Attending Clinician Unavailable GALI FERNANDEZ Attending Clinician UnavailJose Phillips Attending Clinician Unavailable JENARO BAH Attending Clinician Unavaila ble [id number] Attending Clinician Unavailable LEANN REGALADO Attending Clinician Unaearline Winkler MD, Ye Attending Clinician [phone] Ira Ramirez MD Attending Clinician [phone] YE WINKLER Attending Clinician Unavailable IRA RAMIREZ Attending Clinician JUANCARLOS Russell Attending Clinician Unavaila curt Ramirez MD, Ira Haque Attending Clinician [phone] Elian Joseph Attending Clinician Unavailable MARY ALICE GALARZA Attending Clinician Unavailable Peterson CHICAS, Ye Attending Clinician [phone] Drake Ley MD Attending Clinician [phone] Amita Gr Attending Clinician UnaDaniel Malhotra MD Attending Clinician [phone] Doctor Unassigned, [place] Attending Clinician U DANIEL Ny Attending Clinician Unavailable CHRISTIANA POSADA Attending Clinician Unavailable Eduardo Morrison MD Attending Clinician [phone] SLAVA PRICE Attending Clinician Unavailable Mirian Carter RN Attending Clinician Unavaila EDUARDO Mcqueen Attending Clinician Unavailable Provider, Undefined Attending Clinician UnavailLara Jacobsen Attending Clinician Unavailable Breanna Caballero RN Attending Clinician Unavailable RIGO SMITH Attending Clinician Unavailable Ashley CHICAS, Susan Swift Attending Clinician [phone] Chong Garcia MD Attending Clinician [phone] Rigo Smith MD Attending Clinician [phone] MARAH ALSTON Attending Clinician UnavailHector Rose Attending Clinician Unavailable Saqib Hall Attending Clinician Unavailable JIL GRUBBS Attending Clinician Unavailable ALEXANDRE VITALE Attending Clinician Unavailable MARJORIE JAIMES Attending Clinician Unava FCO Lee Attending Clinician Unavailable JUAN M CAMPOS Attending Clinician Unavailable ENRIQUE TORRES Attending Clinician UnavailSINCERE Jett Attending Clinician UnavailSincere Jett MD Attending Clinician [phone] YOVANNY IZAGUIRRE Attending Clinician UnavailMary Alice Street Attending Clinician [phone] Akash Martinez MD Attending Clinician [phone] LAINEY CUELLO Attending Clinician Unavailable ARI WASHINGTON Attending Clinician Unavailable Ebrahim CEMENT PAVER, Ari Attending Clinician + [phone] Unknown, Attending Attending Clinician Unavailab le Vaccine, Ang Db Cbc Fam Attending Clinician Unav JEANNE Pfeiffer Attending Clinician Unavailable Only, Ang Db Test Attending Clinician Unavailjuno Loza MD, Santana Attending Clinician [phone] SANTANA LOZA Attending Clinician Unavailable Parminder Kee RN Attending Clinician Unavail able RYLEE TRISTAN Attending Clinician Unavailable Linh Villavicencio DO Attending Clinician [phone] Rylee Tristan DO Attending Clinician [phone] Mandy Devlin Attending Clinician Unavailable Rome Tyler Attending Clinician Unavailable Jyoti Andrew Attending Clinician Unavail able DENYS BURROWS Attending Clinician Unavail able Nurse, Adc Pob Immunization Attending Clinician Unavailable Denys Burrows DO Attending Clinician [phone] DUANE AYOUB Attending Clinician Unavailable Leann Regalado MD Attending Clinician [phone] Only, Adc Test Attending Clinician Unavailable Pob, Adc Lab Main Attending Clinician UnavailTYRESE Gracia Attending Clinician Unavailable Liberty Lechuga MD Attending Clinician [phone] LIBERTY LECHUGA Attending Clinician UnavailLARA [place] NATASHA Admitting Clinician Unava ilable DIEGO HO Admitting Clinician Unavailable JIL GRUBBS Admitting Clinician Unavailable GALI FERNANDEZ Admitting Clinician Unavailabl Jose Elizabeth Admitting Clinician Unavailable JENARO BAH Admitting Clinician Unavaila ble [id number] Admitting Clinician Unavailable LEANN REGALADO Admitting Clinician Unava ilable Hector Fuentes Admitting Clinician Unavailable DANIEL RANDOLPH Admitting Clinician Unavailable Ira Ramirez Admitting Clinician Unavailable Lara Cuellar Admitting Clinician Unavailable CHONG GARCIA Admitting Clinician Unavailable Chong Garcia MD Admitting Clinician [phone] Saqib Hall Admitting Clinician Unavailable RYLEE TRISTAN Admitting Clinician Unavailable Rylee Tristan DO Admitting Clinician [phone] Mandy Devlin Admitting Clinician Unavailable Keisha Benson Admitting Clinician Unavailable Physician, No Primary or Family Admitting Clinic reji Unavailable Leann Regalado MD Admitting Clinician [phone] Payers Payer Name Policy Type Policy Number Effective Date Expirati on Date Source [facility] [id number] AARP AARP [id number] MEDICARE A B [id number] 2007 00:00:[address] [facility] [id number] 2022 00:00:00 MEDICARE PART A \\T\\ B [id number] 2007 00:00:[address] [facility] MEDICARE SUPPLEMENT [id number] 2019 00:00:00 MEDICARE PART A AND B [id number] 2020 00:00:[address] [facility] PPO [id number] 2016 00:00:00 Problems Condition Name Condition Details Condition Category Status Onset Date Resolution Date Last Treatment Date Treating Clinician Comments Source Perinephri c hematoma Perinephri c hematoma Disease Active 9 00:00: 00 [facility] Secondary hyperparat hyroidism Secondary hyperparat hyroidism Disease Active 2- 00:00: 00 [facility] Renal osteodystr ophy Renal osteodystr ophy Disease Active 2- 00:00: 00 [facility] Pressure ulcer of sacral region Pressure ulcer of sacral region Disease Active 2- 00:00: 00 [facility] Intractabl e vomiting Intractabl e vomiting Disease Active 2- 00:00: 00 [facility] Hyperlipid emia Hyperlipid emia Disease Active 2- 00:00: 00 [facility] Hemodialys is-associa sydney hypotensio n Hemodialys is-associa sydney hypotensio n Disease Active 2- 00:00: 00 [facility] Gout Gout Disease Active 2-03 00:00: 00 [facility] CKD (chronic kidney disease), symptom management only, stage 5 CKD (chronic kidney disease), symptom management only, stage 5 Disease Active 2-03 00:00: 00 [facility] Chronic atrial fibrillati on Chronic atrial fibrillati on Disease Active 2-03 00:00: 00 [facility] 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 Disease Active 1-14 00:00: 00 [facility] Functional paraparesi s Functional paraparesi s Disease Active 1-14 00:00: 00 [facility] Chronic diastolic heart failure Chronic diastolic heart failure Disease Active 1-14 00:00: 00 [facility] Poor balance Poor balance Disease Active 3- 00:00: 00 [facility] Pain in left shoulder Pain in left shoulder Disease Active 3- 00:00: 00 [facility] Other specified personal risk factors, not elsewhere classified Other specified personal risk factors, not elsewhere classified Disease Active 3- 00:00: 00 [facility] Chronic low back pain Chronic low back pain Disease Active 3- 00:00: 00 [facility] Body mass index (BMI) 45.0-49.9, adult Body mass index (BMI) 45.0-49.9, adult Disease Active 09-08 00:00: 00 [facility] Pain in left shoulder Pain in left shoulder Disease Active 09-08 00:00: 00 [facility] Other specified personal risk factors, not elsewhere classified Other specified personal risk factors, not elsewhere classified Disease Active 09-08 00:00: 00 [facility] 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 Disease Active 2015-07 00:00: 00 [facility] Essential hypertensi on Essential hypertensi on Disease Active 2014-07 00:00: 00 [facility] End stage renal failure on dialysis End stage renal failure on dialysis Disease Active 2014-07 00:00: 00 [facility] Gastro-eso phageal reflux disease without esophagiti s Gastro-eso phageal reflux disease without esophagiti s Disease Active 2014-07 00:00: 00 [facility] Crohn's disease of both small and large intestine with fistula Crohn's disease of both small and large intestine with fistula Disease Active 2014-07 00:00: 00 [facility] Mild intermitte nt asthma Mild intermitte nt asthma Disease Active 2014-07 00:00: 00 [facility] Hypertensi on Hypertensi on Disease Active 2014-07 00:00: 00 [facility] Problem Condition [facility] Allergies, Adverse Reactions, Alerts Allergy Name Allergy Type Status Severity Reaction(s) Onset Date Inactive Date Treating Clinician Comments Source clavulan ic acid DA Active U DIARRHEA 02-21 00:00: 00 [facility] amlodipi ne DA Active U SWELLING 814 00:00: 00 [facility] amoxicil conor DA Active U DIARRHEA 814 00:00: 00 [facility] clavulan ic acid DA Active WA ABD PAIN 8-12 00:00: 00 [facility] amlodipi ne DA Active WA RASH 2023-0 8-12 00:00: 00 [facility] amoxicil conor DA Active WA ABD PAIN 2022-0 8-12 00:00: 00 [facility] AMOXICIL CONOR-POT CLAVULAN ATE Allergy Active 2022-0 8-04 00:00: 00 [facility] AMLODIPI NE Allergy Active 2022-0 8-04 00:00: 00 [facility] AMLODIPI NE Allergy Active High Swelling 2022-0 4-30 00:00: 00 [facility] AMOXICIL CONOR-POT CLAVULAN ATE Allergy Active Diarrhea 0 4-30 00:00: 00 [facility] clavulan ic acid DA Active WA DIARRHEA 0 5-08 00:00: 00 [facility] amoxicil conor DA Active WA DIARRHEA 0 5-08 00:00: 00 [facility] No Known Allergie s DA Active U 0 5-08 00:00: 00 [facility] MORVASC DA Active SV SWELLING 0 5-08 00:00: 00 [facility] amoxicil conor DA Active WA ABD PAIN 2021-0 3-28 00:00: 00 [facility] clavulan ic acid DA Active WA ABD PAIN 2021-0 3-28 00:00: 00 [facility] amlodipi ne DA Active WA RASH 2021-0 3-28 00:00: 00 [facility] No Allergy Informat ion Availabl e DA Active U 0 9-27 00:00: 00 [facility] Amlodipi ne Propensi ty to adverse reaction s Active Swelling 2014-07 00:00: 00 [facility] AMLODIPI NE DRUG INGREDI Active Swelling 2014-07 00:00: 00 [facility] Amoxicil conor-Pot Clavulan ate Propensi ty to adverse reaction s Active Unknown - See comments 2014-07 00:00: 00 [facility] AMOXICIL CONOR-POT CLAVULAN ATE DRUG Active Unknown-Cmnt 2014-07 00:00: 00 [facility] NO KNOWN ALLERGY Allergy to substanc e Active Unknown 12-13 00:00: 00 [facility] Social History Social Habit Start Date Stop Date Quantity Comments Source History of tobacco use Cigarette Smoker [facility] Gender identity [facility] Sexual orientation U [facility] Cigarettes smoked current (pack per day) - Reported 2023-11-29 00:00:00 2023-11-29 00:00:00 [facility] Cigarette pack-years 2023-11-29 00:00:00 2023-11-29 00:00:00 [facility] Tobacco use and exposure 2023-11-29 00:00:00 2023-11-29 00:00:00 Smokeless tobacco non-user [facility] History of Social function 2023-11-29 00:00:00 2023-11-29 00:00:00 [facility] Alcoholic beverage intake 2023-11-29 00:00:00 2023-11-29 00:00:00 0 /d [facility] Alcohol intake 2023-06-20 00:00:00 2023-06-20 00:00:00 0 /d [facility] Exposure to SARS-CoV-2 (event) 2022-09-21 00:00:00 2022-10-01 14:29:00 Not sure [facility] Tobacco Comment 2022-06-25 00:00:00 2022-06-25 00:00:00 Quit 1 year ago [facility] Education 2021-12-24 00:00:00 2021-12-24 00:00:00 16 [facility] Sex Ass[birth year] At 1956-03-11 00:00:00 1956-03-11 00:00:[address] [facility] Smoking Status Start Date Stop Date Source Ex-smoker 2023-11-29 00:00:00 2023-11-29 00:00:00 [facility] Never smoked tobacco (finding) [facility] Medications Ordered Medication Name Filled Medication Name Start Date Stop Date Current Medication? Ordering Clinician Indication Dosage Frequency Signature (SIG) Comments Components Source HYDROCORTIS ONE 10 mg tablet 2023-07 00:00: 00 Yes [id number] 10mg TAKE 1 TABLET BY MOUTH IN THE MORNING AND IN THE EVENING [facility] NYSTATIN 100,000 unit/gram powder 2023-07 1- 00:00: 00 Yes [id number] APPLY POWDER TOPICALLY TWICE DAILY TO AREA(S) [facility] loperamide 2 mg capsule 2023-07 00:00: 00 Yes [id number] TAKE DIRECTED AFTER EACH LOOSE STOOL - DO NOT TAKE MORE THAN 8 CAPSULES PER DAY [facility] SIMVASTATIN 20 mg tablet 2023-07 00:00: 00 Yes 20mg TAKE 1 TABLET BY MOUTH AT BEDTIME [facility] NYSTATIN 100,000 unit/gram powder 2023-07 00:00: 00 Yes [id number] APPLY POWDER TOPICALLY TWICE DAILY TO AREA(S) [facility] GABAPENTIN 300 mg capsule 2023-07 00:00: 00 Yes TAKE 1 CAPSULE BY MOUTH TWICE DAILY IN THE MORNING AND IN THE EVENING [facility] SIMVASTATIN 20 mg tablet 2023-07 00:00: 00 Yes 20mg TAKE 1 TABLET BY MOUTH AT BEDTIME [facility] LOPERAMIDE 2 mg capsule 2023-07 00:00: 00 Yes [id number] TAKE DIRECTED AFTER EACH LOOSE STOOL, DO NOT TAKE MORE THAN 8 CAPSULES PER DAY [facility] NYSTATIN 100,000 unit/gram powder 2023-07 0- 00:00: 00 04-30 00:00 :00 No [id number] APPLY POWDER TOPICALLY TWICE DAILY TO AFFECTED AREA(S) [facility] METOPROLOL TARTRATE 25 mg tablet 04-02 00:00: 00 Yes [id number] TAKE 1 TABLET BY MOUTH ONCE DAILY IN THE MORNING AND 1 TABLET BYMOUTH ONCE DAILY IN THE EVENING [facility] GABAPENTIN 300 mg capsule 03-28 00:00: 00 Yes TAKE 1 CAPSULE BY MOUTH TWICE DAILY IN THE MORNING AND IN THE EVENING [facility] SIMVASTATIN 20 mg tablet 03-28 00:00: 00 Yes 20mg TAKE 1 TABLET BY MOUTH AT BEDTIME [facility] HYDROCORTIS ONE 10 mg tablet 17 00:00: 00 05-15 00:00 :00 No [id number] 10mg TAKE 1 TABLET BY MOUTH IN THE MORNING AND IN THE EVENING [facility] METOPROLOL TARTRATE 25 mg tablet 03-21 00:00: 00 Yes [id number] 25mg TAKE 1 TABLET BY MOUTH IN THE MORNING AND 1 IN THE EVENING [facility] NYSTATIN 100,000 unit/gram powder 03-21 00:00: 00 04-11 18:56 :52 No [id number] APPLY POWDER TOPICALLY TWICE DAILY TO AREA(S) [facility] LOPERAMIDE 2 mg capsule 02-26 00:00: 00 Yes [id number] TAKE DIRECTED AFTER EACH LOOSE STOOL, DO NOT TAKE MORE THAN 8 CAPSULES PER DAY [facility] SIMVASTATIN 20 mg tablet 02-26 00:00: 00 Yes 20mg TAKE 1 TABLET BY MOUTH AT BEDTIME [facility] LOPERAMIDE 2 mg capsule 7-05 00:00: 00 Yes [id number] TAKE DIRECTED AFTER EACH LOOSE STOOL, DO NOT TAKE MORE THAN 8 CAPSULES PER DAY [facility] gabapentin 300 mg capsule 6-03 00:00: 00 Yes TAKE 1 CAPSULE BY MOUTH TWICE DAILY IN THE MORNING AND IN THE EVENING [facility] loperamide 2 mg capsule 5-28 00:00: 00 Yes [id number] TAKE DIRECTED AFTER EACH LOOSE STOOL, DO NOT TAKE MORE THAN 8 CAPSULES PER DAY [facility] amiodarone 200 mg tablet 11-28 13:29: 47 Yes 200mg Take 1 tablet by mouth in the morning and 1 tablet in the evening. [facility] tramadol HCl (TRAMADOL ORAL) 11-28 13:29: 47 Yes Take by mouth. [facility] warfarin 1 mg tablet 11-28 00:00: 00 Yes [id number] TAKE 1 & 1/2 (ONE & ONE-HALF) TABLETS BY MOUTH IN THE EVENING [facility] nystatin (NYSTOP) 100,000 unit/gram powder 11-28 00:00: 00 03-21 00:00 :00 No [id number] Apply to area(s) 2 (two) times daily. [facility] METOPROLOL TARTRATE 25 mg tablet 20 00:00: 00 11-28 00:00 :00 No 25mg TAKE 1 TABLET BY MOUTH IN THE MORNING AND 1 IN THE EVENING [facility] SIMVASTATIN 20 mg tablet 11-20 00:00: 00 Yes 20mg TAKE 1 TABLET BY MOUTH AT BEDTIME [facility] GABAPENTIN 300 mg capsule 11-10 00:00: 00 12-11 00:00 :00 No TAKE 1 CAPSULE BY MOUTH TWICE DAILY IN THE MORNING AND IN THE EVENING [facility] hydrocortis one 10 mg tablet 30 00:00: 00 03-27 00:00 :00 No [id number] 10mg Take 1 tablet by mouth every morning and evening. Take double dose on sick days [facility] hydrocortis one 10 mg tablet 29 00:00: 00 11-07 00:00 :00 No [id number] 10mg Take 1 tablet by mouth every morning and evening. [facility] metoprolol tartrate 25 mg tablet 25 00:00: 00 11-27 00:00 :00 No 25mg Take 1 tablet by mouth in the morning and 1 tablet in the evening. [facility] loperamide 2 mg capsule 0 4-15 00:00: 00 12-05 00:00 :00 No [id number] TAKE DIRECTED - AFTER LOOSE STOOL, DO NOT TAKE MORE THEN 8 CAPSULES PER DAY [facility] SIMVASTATIN 20 mg tablet 2023-0 4-15 00:00: 00 11-20 00:00 :00 No 20mg TAKE 1 TABLET BY MOUTH AT BEDTIME [facility] gabapentin 300 mg capsule 2023- 4-07 00:00: 00 11-10 00:00 :00 No TAKE 1 CAPSULE BY MOUTH TWICE DAILY IN THE MORNING AND IN THE EVENING [facility] GABAPENTIN 300 mg capsule 2023-0 3-25 00:00: 00 10-15 00:00 :00 No TAKE 1 CAPSULE BY MOUTH TWICE DAILY IN THE MORNING AND IN THE EVENING [facility] GABAPENTIN 300 mg capsule 2023-0 3-11 00:00: 00 Yes TAKE 1 CAPSULE BY MOUTH TWICE DAILY IN THE MORNING AND IN THE EVENING [facility] loperamide 2 mg capsule 2023-0 3-11 00:00: 00 10-23 00:00 :00 No [id number] TAKE DIRECTED AFTER LOOSE STOOL, DO NOT TAKE MORE THAN 8 CAPSULES PER DAY [facility] SIMVASTATIN 20 mg tablet 2023- 3-11 00:00: 00 10-23 00:00 :00 No 20mg TAKE 1 TABLET BY MOUTH AT BEDTIME [facility] GABAPENTIN 300 mg capsule 2023- 2-19 00:00: 00 09-18 00:00 :00 No TAKE 1 CAPSULE BY MOUTH TWICE DAILY IN THE MORNING AND IN THE EVENING [facility] OMEPRAZOLE 40 mg capsule 2023-0 2-12 00:00: 00 Yes 40mg Take 1 capsule by mouth in the morning [facility] WARFARIN 1 mg tablet 2-12 00:00: 00 11-28 00:00 :00 No TAKE 1 & 1/2 (ONE & ONE-HALF) TABLETS BY MOUTH IN THE EVENING [facility] GABAPENTIN 300 mg capsule 2023-0 2-12 00:00: 00 08-29 00:00 :00 No TAKE 1 CAPSULE BY MOUTH IN THE MORNING AND 1 IN THE EVENING [facility] loperamide 2 mg capsule 2023-0 2-05 00:00: 00 09-18 00:00 :00 No [id number] TAKE DIRECTED AFTER LOOSE STOOL , DO NOT TAKE MORE THAN 8 CAPSULES A DAY [facility] tramadol HCl (TRAMADOL ORAL) 1-04 16:13: 32 Yes Take by mouth. [facility] loperamide 2 mg capsule 2022-07 2-27 00:00: 00 08-15 00:00 :00 No [id number] TAKE DIRECTED AFTER LOOSE STOOL - DO NOT TAKE MORE THAN 8 CAPSULES A DAY [facility] tramadol HCl (TRAMADOL ORAL) 2022-07 14:13: 00 Yes Take by mouth. [facility] HYDROCORTIS ONE 10 mg tablet 2022-07 00:00: 00 Yes 10mg TAKE 1 TABLET BY MOUTH IN THE MORNING AND 1 IN THE EVENING [facility] simvastatin 20 mg tablet 2022-07 00:00: 00 09-18 00:00 :00 No 20mg Take 1 tablet by mouth at bedtime. [facility] warfarin 1 mg tablet 2022-07 00:00: 00 08-22 00:00 :00 No 1.5mg Take 1.5 tablets by mouth every evening. [facility] omeprazole (PRILOSEC) 40 mg capsule 2022-07 08:56: 58 05-27 00:00 :00 No 40mg Take 40 mg by mouth daily. [facility] gabapentin 300 mg capsule 2022-07 00:00: 00 08-22 00:00 :00 No 300mg Take 1 capsule by mouth in the morning and 1 capsule in the evening. [facility] omeprazole 40 mg capsule 2022-07 00:00: 00 08-22 00:00 :00 No 40mg Take 1 capsule by mouth in the morning. [facility] loperamide 2 mg capsule 2022-07 00:00: 00 07-06 00:00 :00 No [id number] TAKE DIRECTED AFTER EACH LOOSE STOOL, DO NOT TAKE MORE THAN 8 CAPSULES A DAY [facility] loperamide 2 mg capsule 04-08 00:00: 00 05-27 00:00 :00 No [id number] TAKE DIRECTED- AFTER EACH LOOSE STOOL DO NOT TAKE MORE THAN 8 CAPSULES A DAY [facility] docusate 100 mg capsule 03-22 22:12: 35 Yes 100mg Take 100 mg by mouth 2 (two) times daily. [facility] omeprazole (PRILOSEC) 40 mg capsule 03-22 22:12: 35 Yes 40mg Take 40 mg by mouth daily. [facility] cinacalcet 30 mg tablet 03-22 22:12: 35 Yes 30mg Take 30 mg by mouth at bedtime. [facility] warfarin (COUMADIN) tablet 1.5 mg 03-22 22:00: 00 Yes 1.5mg 1.5 mg, Oral, DAILY AT 1700, First dose (after last modificati on) on Tue03/22/23 at 1700, Until Discontinu ed, Routine
INR Goal Range: 2-3
IND ICATION (More than one indication for warfarin can be selected): DVT and/or PE [facility] NaCl 0.9% (NS) injection 5 mL 03-22 19:00: 00 03-22 19:00 :00 No 5mL 5 mL, Slow IV Push, ONCE, 1 dose, On Tue03/22/23 at 1400, Routine [facility] heparin 1,000 unit/mL (10 mL) - dialysis catheter care 03-22 18:59: 53 Yes 2000U 2,000 Units, Slow IV Push, PRN - SEE INSTRUCTIO NS, Starting on Tue03/22/23 at 1359, Until Discontinu ed, Routine, dialysis catheter care [facility] mesalamine 500 mg CR capsule 03-22 12:55: 15 03-22 00:00 :00 No 2000mg Take 2,000 mg by mouth 2 (two) times daily. [facility] apixaban 2.5 mg tablet 03-22 12:55: 15 03-22 00:00 :00 No 2.5mg Take 2.5 mg by mouth 2 (two) times daily. [facility] famotidine 20 mg tablet 03-22 12:55: 15 03-22 00:00 :00 No 20mg Take 20 mg by mouth in the morning and 20 mg in the evening. [facility] Lidocaine (LIDOCARE) 4 % patch 1 Patch 03-22 11:30: 00 03-22 22:51 :00 No 1{patch } 1 Patch, Topical, Administer over 12 Hours, ONCE, 1 dose, On Tue03/22/23 at 0630, Routine [facility] alum-mag hydroxide-s imeth (MAG-AL PLUS) 200-200-20 mg/5 mL suspension 30 mL 03-22 02:48: 01 Yes 30mL 30 mL, Oral, Q6HPRN, Starting on Tue03/21/23 at 2148, Until Discontinu ed, Routine, Indigestio n [facility] midodrine 5 mg tablet 03-22 00:00: 00 Yes 15mg Take 3 tablets by mouth every 8 (eight) hours. [facility] metoprolol tartrate 25 mg tablet 03-22 00:00: 00 11-02 00:00 :00 No 25mg Take 1 tablet by mouth in the morning and 1 tablet in the evening. [facility] hydrocortis one 10 mg tablet 03-22 00:00: 00 06-17 00:00 :00 No 10mg Take 1 tablet by mouth every 12 (twelve) hours. [facility] warfarin 1 mg tablet 03-22 00:00: 00 06-06 00:00 :00 No 1.5mg Take 1.5 tablets by mouth every evening. [facility] simvastatin 20 mg tablet 03-22 00:00: 00 06-06 00:00 :00 No 20mg Take 1 tablet by mouth at bedtime. [facility] gabapentin 300 mg capsule 03-22 00:00: 00 05-27 00:00 :00 No 300mg Take 1 capsule by mouth in the morning and 1 capsule in the evening. [facility] warfarin (COUMADIN) tablet 1 mg 03-20 22:00: 00 03-22 16:04 :17 No 1mg 1 mg, Oral, DAILY AT 1700, First dose on Tue03/20/23 at 1700, Until Discontinu ed, Routine
INR Goal Range: 2-3
IND ICATION (More than one indication for warfarin can be selected): DVT and/or PE [facility] pantoprazol e (PROTONIX) EC tablet 40 mg 03-18 14:00: 00 Yes 40mg 40 mg, Oral, DAILY, First dose on Tue03/18/23 at 0900, Until Discontinu ed, Routine [facility] gabapentin (NEURONTIN) capsule 300 mg 03-18 01:00: 00 Yes 300mg 300 mg, Oral, BID, First dose (after last modificati on) on Tue03/17/23 at 2000, Until Discontinu ed, Routine [facility] famotidine (PEPCID AC) tablet 20 mg 03-16 14:00: 00 03-17 20:10 :23 No 20mg 20 mg, Oral, DAILY, First dose (after last modificati on) on Tue03/16/23 at 0900, Until Discontinu ed, Routine [facility] ipratropium -albuteroL (DUONEB) 0.5 mg-3 mg(2.5 mg base)/3 mL nebulizer solution 3 mL 03-16 13:00: 00 Yes 3mL 3 mL, Inhalation , Q12H, First dose (after last modificati on) on Tue03/16/23 at 0800, Until Discontinu ed, Routine [facility] sodium chloride 7% (HYPER-DYLON) nebulizer solution 4 mL 03-16 13:00: 00 Yes 4mL 4 mL, Inhalation , Q12H, First dose (after last modificati on) on Tue03/16/23 at 0800, Until Discontinu ed, [facility] (CORTEF) tablet 10 mg 03-16 01:00: 00 Yes 10mg 10 mg, Oral, Q12H, First dose (after last modificati on) on Tue03/15/23 at 2000, Until Discontinu ed, Routine [facility] apixaban (ELIQUIS) tablet 2.5 mg 03-16 01:00: 00 03-20 17:43 :24 No 2.5mg 2.5 mg, Oral, BID, First dose on Tue03/15/23 at 2000, Until Discontinu ed, Routine
Indicatio ns: Non-Valvul ar Atrial Fibrillati on [facility] hydrocortis one (CORTEF) tablet 10 mg 03-15 15:00: 00 03-15 19:24 :30 No 10mg 10 mg, Oral, BID, First dose on Tue03/15/23 at 1000, Until Discontinu ed, Routine [facility] sulfur hexafluorid e microsphr (LUMASON) injection 5 mL 03-15 14:00: 00 03-15 14:00 :00 No [id number] 5mL 5 mL, Intravenou s, ONCE, 1 dose, On Tue03/15/23 at 0900, Routine
membership sales manager approving Restricted medication : HARI JACOBSON [facility] ipratropium -albuteroL (DUONEB) 0.5 mg-3 mg(2.5 mg base)/3 mL nebulizer solution 3 mL 03-15 02:15: 00 03-16 12:57 :16 No 3mL 3 mL, Inhalation , [id number], Starting on Tue03/14/23 at 2115, Until Tue03/16/23 at 0757, Routine, Wheezing [facility] metoprolol tartrate (LOPRESSOR) tablet 25 mg 03-15 02:00: 00 Yes 25mg 25 mg, Oral, BID, First dose on Tue03/14/23 at 2100, Until Discontinu ed, Routine [facility] ipratropium -albuteroL (DUONEB) 0.5 mg-3 mg(2.5 mg base)/3 mL nebulizer solution 3 mL 03-15 01:00: 00 03-15 02:12 :23 No 3mL 3 mL, Inhalation , Q12H, First dose on Tue03/14/23 at 2000, Until Discontinu ed, Routine [facility] sodium chloride 7% (HYPER-DYLON) nebulizer solution 4 mL 03-15 01:00: 00 03-15 02:12 :23 No 4mL 4 mL, Inhalation , Q12H, First dose on Tue03/14/23 at 2000, Until Discontinu ed, Routine [facility] acetylcyste ine (MUCOMYST) 200 mg/mL (20 %) inhalation solution 200 mg 03-14 23:00: 00 03-15 02:12 :22 No 1mL 200 mg (1 mL), Inhalation , Q6H, 12 doses, First dose on Tue03/14/23 at 1800, Last dose on Shelbie 03/17/23 at 1200, Routine [facility] albumin (ALBUMINAR 25%) 25 % injection 12.5 g 03-14 21:15: 00 03-14 21:18 :00 No 12.5g 12.5 g, IV Infusion, ONCE, 1 dose, On Tue03/14/23 at 1615, 50 mL
Stephany cation: NON-APPROV ED INDICATION - PHARMACY WILL CALL ORDERING PROVIDER<b r>Specific Indication : Prime for Hemodialys is
Facu lty Requesting Approval: MACKENZIE RUIZ [facility] heparin 25,000 Units/250 mL (Premixed Bag) in 0.45 % NS 03-13 19:07: 26 03-15 14:49 :56 No 0U/h 0-2,050 Units/hr (0-20.5 mL/hr), IV Infusion, TITRATE, Parameters in Admin. Instr., Starting on 03/13/23 at 1407
In itiate dosing:&nb sp; & nbsp;&nbsp ; -Patient 73 kg or under: 1,300 Units/hr (Calculate d dose at 18 units/kg/h r) &n bsp; &nbs p; -Patient over 73 k,300 units/hr&n bsp;DO NOT Exceed the MAXIMUM 1,300 units/hr for initiation of heparin drip.&nbsp ; CAU TION - If LMWH given in ER, AVOID bolus and start next dose/drip 24 hrs after ER dosage.&nb sp; M ust program rate using programmab le infusion pump.&nbsp ; Chiara ck with the ordering provider first prior to any administra tion should the patient be on existing/a dditional anticoagul ant therapy. Rang e, Dosing and Testing: &nbs p;DO NOT ADJUST INITIAL BOLUS OR INITIAL INFUSION RATE.&nbsp ; _ &nb sp;FOR [place], [facility], AND [facility] ONLY &nbs p; - aPTT < 35: & nbsp;Bolus 5000 units, increase rate 300 units/hr&n bsp; - aPTT 35-44:&nbs p; Randal letha 3000 units, increase rate 200 units/hr&n bsp; - aPTT 45-54:&nbs p; In crease rate 100 units/hr&n bsp; - aPTT 55-85:&nbs p; NO CHANGE&nbs p; - aPTT 86-95:&nbs p; De crease rate 100 units/hr&n bsp; - aPTT 96-120:&nb sp; H old 30 minutes, decrease rate 150 units/hr&n bsp; - aPTT > 120: Hold 60 minutes, decrease rate 200 units/hr&n bsp; Check aPTT 6 hours after initiation , then Q6H after every change, aPTT Q12H once therapeuti c levels are reached.&n bsp; &nbs p; __ &n bsp;FOR [facility] ONLY - aPTT < 40: & nbsp;Bolus 5000 units, increase rate 300 units/hr&n bsp; - aPTT 40-49:&amp ;nbsp;&nbs p;Bolus 3000 units, increase rate 200 units/hr&n bsp; - aPTT 50-59:&nbs p; In crease rate 100 units/hr&n bsp; - aPTT 60-85:&nbs p; NO CHANGE&nbs p; - aPTT 86-95:&nbs p; De crease rate 100 units/hr&n bsp; - aPTT 96-120:&nb sp; H old 30 minutes, decrease rate 150 units/hr&n bsp; - aPTT > 120: Hold 60 minutes, decrease rate 200 units/hr&n bsp; Check aPTT 6 hours after initiation , then Q6H after every change, aPTT Q12H once therapeuti c levels are reached.<b r> [facility] midodrine (PROAMATINE ) tablet 15 mg 03-13 13:45: 00 Yes 15mg 15 mg, Oral, Q8H, First dose on Tue03/13/23 at 0845, Until Discontinu ed, Routine [facility] metoprolol (LOPRESSOR) injection 5 mg 03-13 08:21: 16 Yes 5mg 5 mg, Intravenou s, Q8HPRN, Starting on 03/13/23 at 0321, Until Discontinu ed, Routine, Afib with RVR [facility] CRRT fluid dialysate (PRISMASATE 4K) K 4.0-Ca 2.5, Mg 1.5, HCO3 32, NA 140, CL 113, LACTATE 3, DEX 110, Osm 300 03-13 04:00: 00 03-17 16:22 :49 No 4300mL/ h 4,300 mL/hr, CRRT Circuit, CONTINUOUS , Starting on 03/12/23 at 2300, Until Shelbie 03/17/23 at 1122, Routine [facility] NaCl 0.9% (NS) IV infusion 1,000 mL 03-13 04:00: 00 03-13 13:00 :28 No 1000mL at 300 mL/hr, CRRT Circuit, CONTINUOUS , Starting on 03/12/23 at 2300, Until 03/13/23 at 0800, Routine [facility] simvastatin (ZOCOR) tablet 20 mg 03-13 02:00: 00 Yes 20mg 20 mg, Oral, QHS, First dose on [facility] 03/12/23 at 2100, Until Discontinu ed, Routine [facility] cinacalcet (SENSIPAR) tablet 30 mg 03-13 02:00: 00 Yes 30mg 30 mg, Oral, QHS, First dose on [facility] 03/12/23 at 2100, Until Discontinu ed, Routine [facility] allopurinoL (ZYLOPRIM) tablet 100 mg 03-12 14:00: 00 Yes 100mg 100 mg, Oral, DAILY, First dose on [facility] 03/12/23 at 0900, Until Discontinu ed, Routine [facility] gabapentin (NEURONTIN) capsule 300 mg 03-12 13:00: 00 03-17 16:22 :49 No 300mg 300 mg, Oral, TID, First dose on [facility] 03/12/23 at 0800, Until Discontinu ed, Routine [facility] famotidine (PEPCID AC) tablet 20 mg 03-12 13:00: 00 03-15 14:45 :25 No 20mg 20 mg, Oral, BID, First dose on [facility] 03/12/23 at 0800, Until Discontinu ed, Routine [facility] hydrocortis one sod succ (CORTEF) injection 50 mg 03-12 11:00: 00 03-15 10:59 :00 No 50mg 50 mg, Intravenou s, Q6H, 12 doses, First dose on Tue03/12/23 at 0600, Last dose on Tue03/15/23 at 0000, 2 mL [facility] iopamidol (ISOVUE 370-500 mL) injection 120 mL 03-12 10:21: 00 03-12 10:00 :00 No [id number] 120mL 120 mL, Intravenou s, ONCE, 1 dose, On 03/12/23 at 0530, Routine [facility] phytonadion e (VITAMIN K) 10 mg in NaCl 0.9% (NS) piggyback 03-12 08:30: 00 03-12 09:20 :00 No 10mg IV Piggyback, ONCE, 1 dose, On 03/12/23 at 0330, 50 mL [facility] hum prothrombin cplx(PCC)4f act (KCENTRA) injection 2,000 Units 03-12 07:45: 00 03-12 10:41 :00 No 2000U 2,000 Units, Intravenou s, ONCE, 1 dose, On 03/12/23 at 0245, 80 mL
Appr inder by: JEFFREY HARRIS MD [facility] NORepinephr ine 16 mg in NS 250 mL infusion RTU 03-12 07:34: 53 03-16 12:18 :25 No .05ug/k g/min 0.05-1.5 mcg/kg/min ?145 kg (6.7969-20 3.9063 mL/hr, rounded to 6.8-203.91 mL/hr), IV Infusion, TITRATE, MAP Goal > or = 65 mmHg, Starting on 03/12/23 at 0234
In itiate titration at 0.05 mcg/kg/min . &nb sp;Increas e by 0.01 mcg/kg/min every 30 seconds to 5 minutes as needed to reach and maintain goal blood pressure.& nbsp;&nbsp ;Maximum dose = 1.5 mcg/kg/min . &nb sp;If goal not maintained at maximum allowed dose, contact prescriber .
[facility] TRAMADOL 50 mg tablet 02-01 00:00: 00 03-22 00:00 :00 No [id number] TAKE 1 TABLET BY MOUTH EVERY 8 HOURS NEEDED FOR PAIN [facility] triamcinolo ne acetonide (KENALOG) injection 40 mg 01-21 16:45: 00 01-21 15:36 :00 No [id number] 9100 40mg [facility] loperamide 2 mg capsule 01-20 00:00: 00 04-08 00:00 :00 No [id number] TAKE DIRECTED - AFTER EACH LOOSE STOOL ( DO NOT TAKE MORE THAN 8 CAPSULES A DAY) [facility] midodrine 5 mg tablet 01-12 00:00: 00 03-22 00:00 :00 No [id number] 15mg Take 3 tablets by mouth in the morning and 3 tablets at noon and 3 tablets in the evening. Take 5 mg by mouth. [facility] midodrine 5 mg tablet 01-10 07:48: 30 01-10 00:00 :00 No 5mg Take 5 mg by mouth. [facility] midodrine 5 mg tablet 01-10 00:00: 00 01-12 00:00 :00 No [id number] 5mg Take 1 tablet by mouth in the morning. Take 5 mg by mouth. [facility] allopurinoL 100 mg tablet 01-05 17:09: 16 01-05 22:09 :13 No 100mg Take 1 tablet by mouth in the morning. [facility] ALLOPURINOL 100 mg tablet 01-05 00:00: 00 Yes [id number] Take 1 tablet by mouth once daily [facility] loperamide 2 mg capsule 12-15 00:00: 00 01-20 00:00 :00 No [id number] TAKE DIRECTED AFTER EACH LOOSE STOOL - DO NOT TAKE MORE THAN 8 CAPSULES A DAY [facility] metoprolol tartrate 50 mg tablet 24 00:00: 00 03-22 00:00 :00 No 50mg Take 1 tablet by mouth in the morning and 1 tablet in the evening. [facility] allopurinoL 100 mg tablet 11-17 10:53: 06 Yes 100mg Take 1 tablet by mouth in the morning. [facility] midodrine 5 mg tablet 11-17 10:51: 23 Yes 5mg Take 5 mg by mouth. [facility] krill/om-3/ dha/epa/meron spho/ast (MAXIMUM RED KRILL OMEGA-3 ORAL) 11-17 10:49: 44 11-17 00:00 :00 No 1{tbl} Take 1 tablet by mouth daily. [facility] traMADoL 50 mg tablet 11-17 00:00: 00 02-01 00:00 :00 No [id number] 50mg Take 1 tablet by mouth every 8 (eight) hours as needed (pain). Indication s: chronic pain [facility] loperamide 2 mg capsule 11-17 00:00: 00 12-15 00:00 :00 No [id number] TAKE DIRECTED AFTER EACH LOOSE STOOL, DO NOT TAKE MORE THAB 8 CAPSULES A DAY [facility] gabapentin 300 mg capsule 11-01 00:00: 00 03-22 00:00 :00 No [id number] 2 300mg Take 1 capsule by mouth in the morning and 1 capsule at noon and 1 capsule in the evening. [facility] fludrocorti sone 0.1 mg tablet 11-01 00:00: 00 03-12 00:00 :00 No [id number] .1mg Take 1 tablet by mouth in the morning. [facility] metoprolol tartrate 50 mg tablet 14 00:00: 00 12-01 00:00 :00 No 50mg Take 1 tablet by mouth in the morning and 1 tablet in the evening. [facility] LOPERAMIDE 2 mg capsule 10-21 00:00: 00 11-17 00:00 :00 No [id number] TAKE DIRECTED AFTER EACH LOOSE STOOL, DO NOT TAKE MORE THAB 8 CAPSULES A DAY [facility] TRAMADOL 50 mg tablet 10-07 00:00: 00 11-17 00:00 :00 No [id number] TAKE 1 TABLET BY MOUTH EVERY 8 HOURS NEEDED FOR PAIN [facility] carbamide peroxide 6.5 % otic solution 10-01 00:00: 00 11-17 00:00 :00 No [id number] 89710 5[drp] Place 5 Drops in both ears once daily as needed for Other (cerumen impaction) . [facility] fludrocorti sone 0.1 mg tablet 10-01 00:00: 00 11-01 00:00 :00 No [id number] .1mg Take 1 tablet by mouth in the morning. [facility] TRAMADOL 50 mg tablet 3 00:00: 00 10-07 00:00 :00 No [id number] TAKE 1 TABLET BY MOUTH EVERY 8 HOURS NEEDED FOR PAIN [facility] loperamide 2 mg capsule 3-06 00:00: 00 10-20 00:00 :00 No [id number] TAKE DIRECTED AFTER EACH LOOSE STOOL, DO NOT TAKE MORE THAB 8 CAPSULES A DAY [facility] TRAMADOL 50 mg tablet 3-06 00:00: 00 09-27 00:00 :00 No [id number] TAKE 1 TABLET BY MOUTH EVERY 8 HOURS NEEDED FOR PAIN [facility] hydrocortis one 10 mg tablet 0 2-21 00:00: 00 03-12 00:00 :00 No [id number] 10mg Take 1 tablet by mouth in the morning and 1 tablet in the evening. Will take 4 pills a day on your sick day s [facility] fludrocorti sone 0.1 mg tablet 0 2-21 00:00: 00 10-01 00:00 :00 No [id number] .1mg Take 1 tablet by mouth in the morning. [facility] TRAMADOL 50 mg tablet 08-30 00:00: 00 09-13 00:00 :00 No [id number] TAKE 1 TABLET BY MOUTH EVERY 8 HOURS NEEDED FOR PAIN [facility] VENTOLIN HFA 90 mcg/actuati on inhaler 08-27 00:00: 00 Yes [id number] INHALE 2 PUFFS BY MOUTH EVERY 6 HOURS NEEDED FOR WHEEZING FOR SHORTNESS OF BREATH [facility] TRAMADOL 50 mg tablet 08-16 00:00: 00 08-30 00:00 :00 No [id number] TAKE 1 TABLET BY MOUTH EVERY 8 HOURS NEEDED FOR PAIN [facility] docusate 100 mg capsule 08-13 11:12: 55 Yes 100mg Take 100 mg by mouth 2 (two) times daily. [facility] omeprazole (PRILOSEC) 40 mg capsule 08-13 11:12: 55 Yes 40mg Take 40 mg by mouth daily. [facility] mesalamine 500 mg CR capsule 08-13 11:12: 55 Yes 2000mg Take 2,000 mg by mouth 2 (two) times daily. [facility] apixaban 2.5 mg tablet 08-13 11:12: 55 Yes 2.5mg Take 2.5 mg by mouth 2 (two) times daily. [facility] cinacalcet 30 mg tablet 08-13 11:12: 55 Yes 30mg Take 30 mg by mouth at bedtime. [facility] krill/om-3/ dha/epa/meron spho/ast (MAXIMUM RED KRILL OMEGA-3 ORAL) 08-13 11:12: 55 Yes 1{tbl} Take 1 tablet by mouth daily. [facility] famotidine 20 mg tablet 08-13 11:12: 55 Yes 20mg Take 20 mg by mouth in the morning and 20 mg in the evening. [facility] midodrine 5 mg tablet 08-13 11:12: 55 Yes 5mg Take 5 mg by mouth. [facility] TRAMADOL 50 mg tablet 07-27 00:00: 00 08-16 00:00 :00 No [id number] TAKE 1 TABLET BY MOUTH EVERY 8 HOURS [facility] 07-19 00:00: 00 Yes [id number] TAKE 1 TABLET BY MOUTH EVERY 8 HOURS NEEDED FOR PAIN [facility] LOPERAMIDE 2 mg capsule 07-19 00:00: 00 09-13 00:00 :00 No [id number] TAKE DIRECTED AFTER EACH LOOSE STOOL, DO NOT TAKE MORE THAN 8 CAPSULES PER DAY [facility] VENTOLIN HFA 90 mcg/actuati on inhaler 07-15 00:00: 00 08-27 00:00 :00 No [id number] INHALE 2 PUFFS BY MOUTH EVERY 6 HOURS NEEDED FOR WHEEZING FOR SHORTNESS OF BREATH [facility] metoprolol tartrate 100 mg tablet 2021-07 00:00: 00 11-17 00:00 :00 No Take 1 tablet by mouth twice daily [facility] allopurinoL 100 mg tablet 2021-07 00:00: 00 11-17 00:00 :00 No [id number] Take 1 tablet by mouth once daily [facility] gabapentin 300 mg capsule 2021-07 00:00: 00 11-01 00:00 :00 No [id number] 2 TAKE 1 CAPSULE BY MOUTH THREE TIMES DAILY [facility] TRAMADOL 50 mg tablet 2021-07 00:00: 00 07-19 00:00 :00 No [id number] TAKE 1 TABLET BY MOUTH EVERY 8 HOURS NEEDED FOR PAIN (SHOULDER OR KNEE) [facility] LOPERAMIDE 2 mg capsule 2021-07 00:00: 00 07-19 00:00 :00 No [id number] TAKE DIRECTED AFTER EACH LOOSE STOOL. DO NOT TAKE MORE THAN 8 CAPSULES PER DAY [facility] TRAMADOL 50 mg tablet 2021-07 00:00: 07-06 00:00 :00 No [id number] TAKE 1 TABLET BY MOUTH EVERY 8 HOURS NEEDED FOR PAIN (SHULDER OR KNEE) [facility] VENTOLIN HFA 90 mcg/actuati on inhaler 2021-07 2 00:00: 00 07-15 00:00 :00 No [id number] INHALE 2 PUFFS BY MOUTH EVERY 6 HOURS NEEDED FOR WHEEZING FOR SHORTNESS OF BREATH [facility] simvastatin 20 mg tablet 2021-07 00:00: 00 03-22 00:00 :00 No [id number] 20mg TAKE 1 TABLET BY MOUTH AT BEDTIME [facility] ALLOPURINOL 100 mg tablet 2021-07 00:00: 00 07-06 00:00 :00 No [id number] Take 1 tablet by mouth once daily [facility] TRAMADOL 50 mg tablet 2021-07 00:00: 00 06-21 00:00 :00 No [id number] TAKE 1 TABLET BY MOUTH EVERY 8 HOURS NEEDED FOR PAIN FOR SHOULDER OR KNEE [facility] METOPROLOL TARTRATE 100 mg tablet 2021-07 00:00: 00 07-06 00:00 :00 No Take 1 tablet by mouth twice daily [facility] loperamide 2 mg capsule 2021-07 0-31 00:00: 00 06-21 00:00 :00 No [id number] TAKE DIRECTED AFTER EACH LOOSE STOOL. DO NOT TAKE MORE THAN 8 CAPSULES PER DAY [facility] GABAPENTIN 300 mg capsule 2021-07 0- 00:00: 00 07-06 00:00 :00 No [id number] 2 TAKE 1 CAPSULE BY MOUTH THREE TIMES DAILY [facility] VENTOLIN HFA 90 mcg/actuati on inhaler 2021-07 0-24 00:00: 00 06-16 00:00 :00 No [id number] INHALE 2 PUFFS BY MOUTH EVERY 6 HOURS NEEDED FOR WHEEZING FOR SHORTNESS OF BREATH [facility] TRAMADOL 50 mg tablet 2021-07 0- 00:00: 00 06-07 00:00 :00 No [id number] TAKE 1 TABLET BY MOUTH EVERY 8 HOURS NEEDED FOR PAIN SHOULDER OF KNEE [facility] ALLOPURINOL 100 mg tablet 2021-07 00:00: 00 06-07 00:00 :00 No [id number] Take 1 tablet by mouth once daily [facility] METOPROLOL TARTRATE 100 mg tablet 2021-07 00:00: 00 06-01 00:00 :00 No Take 1 tablet by mouth twice daily [facility] VENTOLIN HFA 90 mcg/actuati on inhaler 04-06 00:00: 00 Yes [id number] INHALE 2 PUFFS BY MOUTH EVERY 6 HOURS NEEDED FOR WHEEZING FOR SHORTNESS OF BREATH [facility] GABAPENTIN 300 mg capsule 04-05 00:00: 00 05-03 00:00 :00 No [id number] 2 TAKE 1 CAPSULE BY MOUTH THREE TIMES DAILY [facility] ALLOPURINOL 100 mg tablet 03-30 00:00: 00 05-03 00:00 :00 No [id number] Take 1 tablet by mouth once daily [facility] Needle, Disp, 24 G 24 gauge x 1" Ndle 03-24 00:00: 00 Yes [id number] Use as directed [facility] Needle, Disp, 24 G 24 gauge x 1" Ndle 03-24 00:00: 00 03-22 00:00 :00 No [id number] Use as directed [facility] fludrocorti sone 0.1 mg tablet 03-24 00:00: 00 08-31 00:00 :00 No [id number] .1mg Take 1 tablet by mouth in the morning. [facility] loperamide 2 mg capsule 03-23 00:00: 00 05-10 00:00 :00 No [id number] TAKE DIRECTED AFTER EACH LOOSE STOOL. DO NOT TAKE MORE THAN 8 CAPSULES A DAY [facility] hydrocortis one 10 mg tablet 03-10 00:00: 08-31 00:00 :00 No [id number] 10mg Take 1 tablet by mouth in the morning and 1 tablet in the evening. [facility] VENTOLIN HFA 90 mcg/actuati on inhaler 03-08 00:00: 00 04-06 00:00 :00 No [id number] INHALE 2 PUFFS BY MOUTH EVERY 6 HOURS NEEDED FOR WHEEZING FOR SHORTNESS OF BREATH [facility] SIMVASTATIN 20 mg tablet 03-05 00:00: 00 06-14 00:00 :00 No [id number] 20mg TAKE 1 TABLET BY MOUTH AT BEDTIME [facility] METOPROLOL TARTRATE 100 mg tablet 03-02 00:00: 00 05-03 00:00 :00 No Take 1 tablet by mouth twice daily [facility] ALLOPURINOL 100 mg tablet 03-02 00:00: 00 03-30 00:00 :00 No [id number] Take 1 tablet by mouth once daily [facility] traMADoL 50 mg tablet 02-12 00:00: 00 05-03 00:00 :00 No [id number] 50mg Take 1 tablet by mouth every 8 (eight) hours as needed (pain shoulder or knee). Indication s: chronic pain [facility] omeprazole (PRILOSEC) 40 mg capsule 01-29 15:58: 03 Yes 40mg Take 40 mg by mouth daily. [facility] mesalamine 500 mg CR capsule 01-29 15:58: 03 Yes 2000mg Take 2,000 mg by mouth 2 (two) times daily. [facility] tramadol HCl (TRAMADOL ORAL) 01-29 15:58: 03 Yes 1{tbl} Take by mouth. [facility] docusate 100 mg capsule 01-29 15:58: 02 Yes 100mg Take 100 mg by mouth 2 (two) times daily. [facility] apixaban 2.5 mg tablet 01-29 15:58: 02 Yes 2.5mg Take 2.5 mg by mouth 2 (two) times daily. [facility] cinacalcet 30 mg tablet 01-29 15:58: 02 Yes 30mg Take 30 mg by mouth at bedtime. [facility] gabapentin 300 mg capsule 02-27 00:00: 00 04-05 00:00 :00 No [id number] 2 300mg Take 1 capsule by mouth 3 (three) times daily. [facility] Immunizations Ordered Immunization Name Filled Immunization Name Date Status Comments Source SARS-COV-2 COVID-19 VACCINE 12 YRS+, BIVALENT 0.5ML, IM, (MODERNA BOOSTER) 2022-06-21 00:00:00 Completed [facility] SARS-COV-2 COVID-19 VACCINE 12 YRS+, BIVALENT 0.5ML, IM, (MODERNA BOOSTER) 2022-06-21 00:00:00 Completed [facility] SARS-COV-2 COVID-19 VACCINE 12 YRS+, BIVALENT 0.5ML, IM, (MODERNA BOOSTER) 2022-06-21 00:00:00 [facility] [facility] SARS-COV-2 COVID-19 VACCINE 12 YRS+, BIVALENT 0.5ML, IM, (MODERNA BOOSTER) 2022-06-21 00:00:00 Completed [facility] SARS-COV-2 COVID-19 VACCINE 12 YRS+, BIVALENT 0.5ML, IM, (MODERNA BOOSTER) 2022-06-21 00:00:00 Completed [facility] SARS-COV-2 COVID-19 VACCINE 12 YRS+, BIVALENT 0.5ML, IM, (MODERNA BOOSTER) 2022-06-21 00:00:00 Completed [facility] SARS-COV-2 COVID-19 VACCINE 12 YRS+, BIVALENT 0.5ML, IM, (MODERNA BOOSTER) 2022-06-21 00:00:00 Completed [facility] SARS-COV-2 COVID-19 VACCINE 12 YRS+, BIVALENT 0.5ML, IM, (MODERNA BOOSTER) 2022-06-21 00:00:00 Completed [facility] SARS-COV-2 COVID-19 VACCINE 12 YRS+, BIVALENT 0.5ML, IM, (MODERNA BOOSTER) 2022-06-21 00:00:00 Completed [facility] SARS-COV-2 COVID-19 VACCINE 12 YRS+, BIVALENT 0.5ML, IM, (MODERNA BOOSTER) 2022-06-21 00:00:00 Completed [facility] SARS-COV-2 COVID-19 VACCINE 12 YRS+, BIVALENT 0.5ML, IM, (MODERNA BOOSTER) 2022-06-21 00:00:00 Completed [facility] SARS-COV-2 COVID-19 VACCINE 12 YRS+, BIVALENT 0.5ML, IM, (MODERNA BOOSTER) 2022-06-21 00:00:00 Completed [facility] SARS-COV-2 COVID-19 VACCINE 12 YRS+, BIVALENT 0.5ML, IM, (MODERNA BOOSTER) 2022-06-21 00:00:00 Completed [facility] SARS-COV-2 COVID-19 VACCINE 12 YRS+, BIVALENT 0.5ML, IM, (MODERNA BOOSTER) 2022-06-21 00:00:00 Completed [facility] SARS-COV-2 COVID-19 VACCINE 12 YRS+, BIVALENT 0.5ML, IM, (MODERNA BOOSTER) 2022-06-21 00:00:00 Completed [facility] SARS-COV-2 COVID-19 VACCINE 12 YRS+, BIVALENT 0.5ML, IM, (MODERNA BOOSTER) 2022-06-21 00:00:00 Completed [facility] SARS-COV-2 COVID-19 VACCINE 12 YRS+, BIVALENT 0.5ML, IM, (MODERNA BOOSTER) 2022-06-21 00:00:00 Completed [facility] SARS-COV-2 COVID-19 VACCINE 12 YRS+, BIVALENT 0.5ML, IM, (MODERNA BOOSTER) 2022-06-21 00:00:00 Completed [facility] SARS-COV-2 COVID-19 VACCINE 12 YRS+, BIVALENT 0.5ML, IM, (MODERNA BOOSTER) 2022-06-21 00:00:00 Completed [facility] SARS-COV-2 COVID-19 VACCINE 12 YRS+, BIVALENT 0.5ML, IM, (MODERNA BOOSTER) 2022-06-21 00:00:00 Completed [facility] SARS-COV-2 COVID-19 VACCINE 12 YRS+, BIVALENT 0.5ML, IM, (MODERNA BOOSTER) 2022-06-21 00:00:00 Completed [facility] SARS-COV-2 COVID-19 VACCINE 12 YRS+, BIVALENT 0.5ML, IM, (MODERNA BOOSTER) 2022-06-21 00:00:00 Completed [facility] SARS-COV-2 COVID-19 VACCINE 12 YRS+, BIVALENT 0.5ML, IM, (MODERNA BOOSTER) 2022-06-21 00:00:00 Completed [facility] SARS-COV-2 COVID-19 VACCINE 12 YRS+, BIVALENT 0.5ML, IM, (MODERNA BOOSTER) 2022-06-21 00:00:00 Completed [facility] SARS-COV-2 COVID-19 VACCINE 12 YRS+, BIVALENT 0.5ML, IM, (MODERNA BOOSTER) 2022-06-21 00:00:00 Completed [facility] SARS-COV-2 COVID-19 VACCINE 12 YRS+, BIVALENT 0.5ML, IM, (MODERNA BOOSTER) 2022-06-21 00:00:00 Completed [facility] SARS-COV-2 COVID-19 VACCINE 12 YRS+, BIVALENT 0.5ML, IM, (MODERNA BOOSTER) 2022-06-21 00:00:00 Completed [facility] SARS-COV-2 COVID-19 VACCINE 12 YRS+, BIVALENT 0.5ML, IM, (MODERNA BOOSTER) 2022-06-21 00:00:00 Completed [facility] SARS-COV-2 COVID-19 VACCINE 12 YRS+, BIVALENT 0.5ML, IM, (MODERNA BOOSTER) 2022-06-21 00:00:00 Completed [facility] SARS-COV-2 COVID-19 VACCINE 12 YRS+, BIVALENT 0.5ML, IM, (MODERNA BOOSTER) 2022-06-21 00:00:00 Completed [facility] SARS-COV-2 COVID-19 VACCINE 12 YRS+, BIVALENT 0.5ML, IM, (MODERNA) 2022-06-21 00:00:00 Completed [facility] SARS-COV-2 COVID-19 VACCINE 12 YRS+, BIVALENT 0.5ML, IM, (MODERNA) 2022-06-21 00:00:00 Completed [facility] SARS-COV-2 COVID-19 VACCINE 12 YRS+, BIVALENT 0.5ML, IM, (MODERNA) 2022-06-21 00:00:00 Completed [facility] SARS-COV-2 COVID-19 VACCINE 12 YRS+, BIVALENT 0.5ML, IM, (MODERNA-BLUE TOP) 2022-06-21 00:00:00 Completed [facility] SARS-COV-2 COVID-19 VACCINE 12 YRS+, BIVALENT 0.5ML, IM, (MODERNA-BLUE TOP) 2022-06-21 00:00:00 Completed [facility] SARS-COV-2 COVID-19 VACCINE 12 YRS+, BIVALENT 0.5ML, IM, (MODERNA-BLUE TOP) 2022-06-21 00:00:00 Completed [facility] SARS-COV-2 COVID-19 VACCINE 12 YRS+, BIVALENT 0.5ML, IM, (MODERNA-BLUE TOP) 2022-06-21 00:00:00 Completed [facility] SARS-COV-2 COVID-19 VACCINE 12 YRS+, BIVALENT 0.5ML, IM, (MODERNA-BLUE TOP) 2022-06-21 00:00:00 Completed [facility] SARS-COV-2 COVID-19 VACCINE 12 YRS+, BIVALENT 0.5ML, IM, (MODERNA-BLUE TOP) 2022-06-21 00:00:00 Completed [facility] SARS-COV-2 COVID-19 VACCINE 12 YRS+, BIVALENT 0.5ML, IM, (MODERNA-BLUE TOP) 2022-06-21 00:00:00 Completed [facility] SARS-COV-2 COVID-19 VACCINE 12 YRS+, BIVALENT 0.5ML, IM, (MODERNA-BLUE TOP) 2022-06-21 00:00:00 Completed [facility] SARS-COV-2 COVID-19 VACCINE 12 YRS+, BIVALENT 0.5ML, IM, (MODERNA-BLUE TOP) 2022-06-21 00:00:00 Completed [facility] SARS-COV-2 COVID-19 VACCINE 12 YRS+, BIVALENT 0.5ML, IM, (MODERNA-BLUE TOP) 2022-06-21 00:00:00 Completed [facility] SARS-COV-2 COVID-19 VACCINE 12 YRS+, BIVALENT 0.5ML, IM, (MODERNA-BLUE TOP) 2022-06-21 00:00:00 Completed [facility] SARS-COV-2 COVID-19 VACCINE 12 YRS+, BIVALENT 0.5ML, IM, (MODERNA-BLUE TOP) 2022-06-21 00:00:00 Completed [facility] SARS-COV-2 COVID-19 VACCINE 12 YRS+, BIVALENT 0.5ML, IM, (MODERNA-BLUE TOP) 2022-06-21 00:00:00 Completed [facility] SARS-COV-2 COVID-19 VACCINE 12 YRS+, BIVALENT 0.5ML, IM, (MODERNA-BLUE TOP) 2022-06-21 00:00:00 Completed [facility] SARS-COV-2 COVID-19 VACCINE 12 YRS+, BIVALENT 0.5ML, IM, (MODERNA-BLUE TOP) 2022-06-21 00:00:00 Completed [facility] SARS-COV-2 COVID-19 VACCINE 12 YRS+, BIVALENT 0.5ML, IM, (MODERNA-BLUE TOP) 2022-06-21 00:00:00 Completed [facility] SARS-COV-2 COVID-19 VACCINE 12 YRS+, BIVALENT 0.5ML, IM, (MODERNA-BLUE TOP) 2022-06-21 00:00:00 Completed [facility] SARS-COV-2 COVID-19 VACCINE 12 YRS+, BIVALENT 0.5ML, IM, (MODERNA-BLUE TOP) 2022-06-21 00:00:00 Completed [facility] SARS-COV-2 COVID-19 VACCINE 12 YRS+, BIVALENT 0.5ML, IM, (MODERNA-BLUE TOP) 2022-06-21 00:00:00 Completed [facility] SARS-COV-2 COVID-19 VACCINE 12 YRS+, BIVALENT 0.5ML, IM, (MODERNA-BLUE TOP) 2022-06-21 00:00:00 Completed SARS-COV-2 COVID-19 VACCINE 12 YRS+, BIVALENT 0.5ML, IM, (MODERNA-BLUE TOP) 2022-06-21 00:00:00 Completed SARS-COV-2 COVID-19 VACCINE - (MODERNA) 2022-01-10 00:00:00 Completed [facility] SARS-COV-2 COVID-19 VACCINE - (MODERNA) 2022-01-10 00:00:00 Completed [facility] SARS-COV-2 COVID-19 VACCINE - (MODERNA) 2022-01-10 00:00:00 Completed [facility] SARS-COV-2 COVID-19 VACCINE - (MODERNA) 2022-01-10 00:00:00 Completed [facility] SARS-COV-2 COVID-19 VACCINE - (MODERNA) 2022-01-10 00:00:00 Completed [facility] SARS-COV-2 COVID-19 VACCINE - (MODERNA) 2022-01-10 00:00:00 Completed [facility] SARS-COV-2 COVID-19 VACCINE - (MODERNA) 2022-01-10 00:00:00 Completed [facility] SARS-COV-2 COVID-19 VACCINE - (MODERNA) 2022-01-10 00:00:00 Completed [facility] SARS-COV-2 COVID-19 VACCINE - (MODERNA) 2022-01-10 00:00:00 Completed [facility] SARS-COV-2 COVID-19 VACCINE - (MODERNA) 2022-01-10 00:00:00 Completed [facility] SARS-COV-2 COVID-19 VACCINE - (MODERNA) 2022-01-10 00:00:00 Completed [facility] SARS-COV-2 COVID-19 VACCINE - (MODERNA) 2022-01-10 00:00:00 Completed [facility] SARS-COV-2 COVID-19 VACCINE - (MODERNA) 2022-01-10 00:00:00 Completed [facility] SARS-COV-2 COVID-19 VACCINE - (MODERNA) 2022-01-10 00:00:00 Completed [facility] SARS-COV-2 COVID-19 VACCINE - (MODERNA) 2022-01-10 00:00:00 Completed [facility] SARS-COV-2 COVID-19 VACCINE - (MODERNA) 2022-01-10 00:00:00 Completed [facility] SARS-COV-2 COVID-19 VACCINE - (MODERNA) 2022-01-10 00:00:00 Completed [facility] SARS-COV-2 COVID-19 VACCINE - (MODERNA) 2022-01-10 00:00:00 Completed [facility] SARS-COV-2 COVID-19 VACCINE - (MODERNA) 2022-01-10 00:00:00 Completed [facility] SARS-COV-2 COVID-19 VACCINE - (MODERNA) 2022-01-10 00:00:00 Completed [facility] SARS-COV-2 COVID-19 VACCINE - (MODERNA) 2022-01-10 00:00:00 Completed [facility] SARS-COV-2 COVID-19 VACCINE - (MODERNA) 2022-01-10 00:00:00 Completed [facility] SARS-COV-2 COVID-19 VACCINE - (MODERNA) 2022-01-10 00:00:00 Completed [facility] SARS-COV-2 COVID-19 VACCINE - (MODERNA) 2022-01-10 00:00:00 Completed [facility] SARS-COV-2 COVID-19 VACCINE - (MODERNA) 2022-01-10 00:00:00 Completed [facility] SARS-COV-2 COVID-19 VACCINE - (MODERNA) 2022-01-10 00:00:00 Completed [facility] SARS-COV-2 COVID-19 VACCINE - (MODERNA) 2022-01-10 00:00:00 Completed [facility] SARS-COV-2 COVID-19 VACCINE - (MODERNA) 2022-01-10 00:00:00 Completed [facility] SARS-COV-2 COVID-19 VACCINE - (MODERNA) 2022-01-10 00:00:00 Completed [facility] SARS-COV-2 COVID-19 VACCINE - (MODERNA) 2022-01-10 00:00:00 Completed [facility] SARS-COV-2 COVID-19 VACCINE - (MODERNA) 2022-01-10 00:00:00 Completed [facility] SARS-COV-2 COVID-19 VACCINE - (MODERNA) 2022-01-10 00:00:00 Completed [facility] SARS-COV-2 COVID-19 VACCINE - (MODERNA) 2022-01-10 00:00:00 Completed [facility] SARS-COV-2 COVID-19 VACCINE - (MODERNA) 2022-01-10 00:00:00 Completed [facility] SARS-COV-2 COVID-19 VACCINE - (MODERNA) 2022-01-10 00:00:00 Completed [facility] SARS-COV-2 COVID-19 VACCINE - (MODERNA) 2022-01-10 00:00:00 Completed [facility] SARS-COV-2 COVID-19 VACCINE - (MODERNA) 2022-01-10 00:00:00 Completed [facility] SARS-COV-2 COVID-19 VACCINE - (MODERNA) 2022-01-10 00:00:00 Completed [facility] SARS-COV-2 COVID-19 VACCINE - (MODERNA) 2022-01-10 00:00:00 Completed [facility] SARS-COV-2 COVID-19 VACCINE - (MODERNA) 2022-01-10 00:00:00 Completed [facility] SARS-COV-2 COVID-19 VACCINE - (MODERNA) 2022-01-10 00:00:00 Completed [facility] SARS-COV-2 COVID-19 VACCINE - (MODERNA) 2022-01-10 00:00:00 Completed [facility] SARS-COV-2 COVID-19 VACCINE - (MODERNA) 2022-01-10 00:00:00 Completed [facility] SARS-COV-2 COVID-19 VACCINE - (MODERNA) 2022-01-10 00:00:00 Completed [facility] SARS-COV-2 COVID-19 VACCINE - (MODERNA) 2022-01-10 00:00:00 Completed [facility] SARS-COV-2 COVID-19 VACCINE - (MODERNA) 2022-01-10 00:00:00 Completed [facility] SARS-COV-2 COVID-19 VACCINE - (MODERNA) 2022-01-10 00:00:00 Completed [facility] SARS-COV-2 COVID-19 VACCINE - (MODERNA) 2022-01-10 00:00:00 Completed [facility] SARS-COV-2 COVID-19 VACCINE - (MODERNA) 2022-01-10 00:00:00 Completed [facility] SARS-COV-2 COVID-19 VACCINE - (MODERNA) 2022-01-10 00:00:00 Completed [facility] SARS-COV-2 COVID-19 VACCINE - (MODERNA) 2022-01-10 00:00:00 Completed [facility] SARS-COV-2 COVID-19 VACCINE - (MODERNA) 2022-01-10 00:00:00 Completed [facility] SARS-COV-2 COVID-19 VACCINE - (MODERNA) 2022-01-10 00:00:00 Completed [facility] SARS-COV-2 COVID-19 VACCINE - (MODERNA) 2022-01-10 00:00:00 Completed [facility] SARS-COV-2 COVID-19 VACCINE - (MODERNA) 2022-01-10 00:00:00 Completed SARS-COV-2 COVID-19 VACCINE - (MODERNA) 2022-01-10 00:00:00 Completed SARS-COV-2 COVID-19 MODERNA 0.25ML BOOSTER VACCINE 2021-06-22 00:00:00 Completed [facility] SARS-COV-2 COVID-19 MODERNA 0.25ML BOOSTER VACCINE 2021-06-22 00:00:00 Completed [facility] SARS-COV-2 COVID-19 MODERNA 0.25ML BOOSTER VACCINE 2021-06-22 00:00:00 Completed [facility] SARS-COV-2 COVID-19 MODERNA 0.25ML BOOSTER VACCINE 2021-06-22 00:00:00 Completed [facility] SARS-COV-2 COVID-19 MODERNA 0.25ML BOOSTER VACCINE 2021-06-22 00:00:00 Completed [facility] SARS-COV-2 COVID-19 MODERNA 0.25ML BOOSTER VACCINE 2021-06-22 00:00:00 Completed [facility] SARS-COV-2 COVID-19 MODERNA 0.25ML BOOSTER VACCINE 2021-06-22 00:00:00 Completed [facility] SARS-COV-2 COVID-19 MODERNA 0.25ML BOOSTER VACCINE 2021-06-22 00:00:00 Completed [facility] SARS-COV-2 COVID-19 MODERNA 0.25ML BOOSTER VACCINE 2021-06-22 00:00:00 Completed [facility] SARS-COV-2 COVID-19 MODERNA 0.25ML BOOSTER VACCINE 2021-06-22 00:00:00 Completed [facility] SARS-COV-2 COVID-19 MODERNA 0.25ML BOOSTER VACCINE 2021-06-22 00:00:00 Completed [facility] SARS-COV-2 COVID-19 MODERNA 0.25ML BOOSTER VACCINE 2021-06-22 00:00:00 Completed [facility] SARS-COV-2 COVID-19 MODERNA 0.25ML BOOSTER VACCINE 2021-06-22 00:00:00 Completed [facility] SARS-COV-2 COVID-19 MODERNA 0.25ML BOOSTER VACCINE 2021-06-22 00:00:00 Completed [facility] SARS-COV-2 COVID-19 MODERNA 0.25ML BOOSTER VACCINE 2021-06-22 00:00:00 Completed [facility] SARS-COV-2 COVID-19 MODERNA 0.25ML BOOSTER VACCINE 2021-06-22 00:00:00 Completed [facility] SARS-COV-2 COVID-19 MODERNA 0.25ML BOOSTER VACCINE 2021-06-22 00:00:00 Completed [facility] SARS-COV-2 COVID-19 MODERNA 0.25ML BOOSTER VACCINE 2021-06-22 00:00:00 Completed [facility] SARS-COV-2 COVID-19 MODERNA 0.25ML BOOSTER VACCINE 2021-06-22 00:00:00 Completed [facility] SARS-COV-2 COVID-19 MODERNA 0.25ML BOOSTER VACCINE 2021-06-22 00:00:00 Completed [facility] SARS-COV-2 COVID-19 MODERNA 0.25ML BOOSTER VACCINE 2021-06-22 00:00:00 Completed [facility] SARS-COV-2 COVID-19 MODERNA 0.25ML BOOSTER VACCINE 2021-06-22 00:00:00 Completed [facility] SARS-COV-2 COVID-19 MODERNA 0.25ML BOOSTER VACCINE 2021-06-22 00:00:00 Completed [facility] SARS-COV-2 COVID-19 MODERNA 0.25ML BOOSTER VACCINE 2021-06-22 00:00:00 Completed [facility] SARS-COV-2 COVID-19 MODERNA 0.25ML BOOSTER VACCINE 2021-06-22 00:00:00 Completed [facility] SARS-COV-2 COVID-19 MODERNA 0.25ML BOOSTER VACCINE 2021-06-22 00:00:00 Completed [facility] SARS-COV-2 COVID-19 MODERNA 0.25ML BOOSTER VACCINE 2021-06-22 00:00:00 Completed [facility] SARS-COV-2 COVID-19 MODERNA 0.25ML BOOSTER VACCINE 2021-06-22 00:00:00 Completed [facility] SARS-COV-2 COVID-19 MODERNA 0.25ML BOOSTER VACCINE 2021-06-22 00:00:00 Completed [facility] SARS-COV-2 COVID-19 MODERNA 0.25ML BOOSTER VACCINE 2021-06-22 00:00:00 Completed [facility] SARS-COV-2 COVID-19 MODERNA 0.25ML BOOSTER VACCINE 2021-06-22 00:00:00 Completed [facility] SARS-COV-2 COVID-19 MODERNA 0.25ML BOOSTER VACCINE 2021-06-22 00:00:00 Completed [facility] SARS-COV-2 COVID-19 MODERNA 0.25ML BOOSTER VACCINE 2021-06-22 00:00:00 Completed [facility] SARS-COV-2 COVID-19 MODERNA 0.25ML BOOSTER VACCINE 2021-06-22 00:00:00 Completed [facility] SARS-COV-2 COVID-19 MODERNA 0.25ML BOOSTER VACCINE 2021-06-22 00:00:00 Completed [facility] SARS-COV-2 COVID-19 MODERNA 0.25ML BOOSTER VACCINE 2021-06-22 00:00:00 Completed [facility] SARS-COV-2 COVID-19 MODERNA 0.25ML BOOSTER VACCINE 2021-06-22 00:00:00 Completed [facility] SARS-COV-2 COVID-19 MODERNA 0.25ML BOOSTER VACCINE 2021-06-22 00:00:00 Completed [facility] SARS-COV-2 COVID-19 MODERNA 0.25ML BOOSTER VACCINE 2021-06-22 00:00:00 Completed [facility] SARS-COV-2 COVID-19 MODERNA 0.25ML BOOSTER VACCINE 2021-06-22 00:00:00 Completed [facility] SARS-COV-2 COVID-19 MODERNA 0.25ML BOOSTER VACCINE 2021-06-22 00:00:00 Completed [facility] SARS-COV-2 COVID-19 MODERNA 0.25ML BOOSTER VACCINE 2021-06-22 00:00:00 Completed [facility] SARS-COV-2 COVID-19 MODERNA 0.25ML BOOSTER VACCINE 2021-06-22 00:00:00 Completed [facility] SARS-COV-2 COVID-19 MODERNA 0.25ML BOOSTER VACCINE 2021-06-22 00:00:00 Completed [facility] SARS-COV-2 COVID-19 MODERNA 0.25ML BOOSTER VACCINE 2021-06-22 00:00:00 Completed [facility] SARS-COV-2 COVID-19 MODERNA 0.25ML BOOSTER VACCINE 2021-06-22 00:00:00 Completed [facility] SARS-COV-2 COVID-19 MODERNA 0.25ML BOOSTER VACCINE 2021-06-22 00:00:00 Completed [facility] SARS-COV-2 COVID-19 MODERNA 0.25ML BOOSTER VACCINE 2021-06-22 00:00:00 Completed [facility] SARS-COV-2 COVID-19 MODERNA 0.25ML BOOSTER VACCINE 2021-06-22 00:00:00 Completed [facility] SARS-COV-2 COVID-19 MODERNA 0.25ML BOOSTER VACCINE 2021-06-22 00:00:00 Completed [facility] SARS-COV-2 COVID-19 MODERNA 0.25ML BOOSTER VACCINE 2021-06-22 00:00:00 Completed [facility] SARS-COV-2 COVID-19 MODERNA 0.25ML BOOSTER VACCINE 2021-06-22 00:00:00 Completed [facility] SARS-COV-2 COVID-19 MODERNA 0.25ML BOOSTER VACCINE 2021-06-22 00:00:00 Completed [facility] SARS-COV-2 COVID-19 MODERNA 0.25ML BOOSTER VACCINE 2021-06-22 00:00:00 Completed [facility] SARS-COV-2 COVID-19 MODERNA 0.25ML BOOSTER VACCINE 2021-06-22 00:00:00 Completed [facility] SARS-COV-2 COVID-19 MODERNA 0.25ML BOOSTER VACCINE 2021-06-22 00:00:00 Completed [facility] SARS-COV-2 COVID-19 MODERNA 0.25ML BOOSTER VACCINE 2021-06-22 00:00:00 Completed [facility] SARS-COV-2 COVID-19 MODERNA 0.25ML BOOSTER VACCINE 2021-06-22 00:00:00 Completed [facility] SARS-COV-2 COVID-19 MODERNA 0.25ML BOOSTER VACCINE 2021-06-22 00:00:00 Completed [facility] SARS-COV-2 COVID-19 MODERNA 0.25ML BOOSTER VACCINE 2021-06-22 00:00:00 Completed [facility] SARS-COV-2 COVID-19 MODERNA 0.25ML BOOSTER VACCINE 2021-06-22 00:00:00 Completed [facility] SARS-COV-2 COVID-19 MODERNA 0.25ML BOOSTER VACCINE 2021-06-22 00:00:00 Completed [facility] SARS-COV-2 COVID-19 MODERNA 0.25ML BOOSTER VACCINE 2021-06-22 00:00:00 Completed [facility] SARS-COV-2 COVID-19 MODERNA 0.25ML BOOSTER VACCINE 2021-06-22 00:00:00 Completed [facility] SARS-COV-2 COVID-19 MODERNA 0.25ML BOOSTER VACCINE 2021-06-22 00:00:00 Completed [facility] SARS-COV-2 COVID-19 MODERNA 0.25ML BOOSTER VACCINE 2021-06-22 00:00:00 Completed [facility] SARS-COV-2 COVID-19 MODERNA 0.25ML BOOSTER VACCINE 2021-06-22 00:00:00 Completed [facility] SARS-COV-2 COVID-19 MODERNA 0.25ML BOOSTER VACCINE 2021-06-22 00:00:00 Completed [facility] SARS-COV-2 COVID-19 MODERNA 0.25ML BOOSTER VACCINE 2021-06-22 00:00:00 Completed [facility] SARS-COV-2 COVID-19 MODERNA 0.25ML BOOSTER VACCINE 2021-06-22 00:00:00 Completed [facility] SARS-COV-2 COVID-19 MODERNA 0.25ML BOOSTER VACCINE 2021-06-22 00:00:00 Completed [facility] SARS-COV-2 COVID-19 MODERNA 0.25ML BOOSTER VACCINE 2021-06-22 00:00:00 Completed [facility] SARS-COV-2 COVID-19 MODERNA 0.25ML BOOSTER VACCINE 2021-06-22 00:00:00 Completed [facility] SARS-COV-2 COVID-19 MODERNA 12+ YRS VACCINE 2020-08-11 00:00:00 Completed [facility] SARS-COV-2 COVID-19 MODERNA 12+ YRS VACCINE 2020-08-11 00:00:00 Completed [facility] SARS-COV-2 COVID-19 MODERNA 12+ YRS VACCINE 2020-08-11 00:00:00 Completed [facility] SARS-COV-2 COVID-19 MODERNA 12+ YRS VACCINE 2020-08-11 00:00:00 Completed [facility] SARS-COV-2 COVID-19 MODERNA 12+ YRS VACCINE 2020-08-11 00:00:00 Completed [facility] SARS-COV-2 COVID-19 MODERNA 12+ YRS VACCINE 2020-08-11 00:00:00 Completed [facility] SARS-COV-2 COVID-19 MODERNA 12+ YRS VACCINE 2020-08-11 00:00:00 Completed [facility] SARS-COV-2 COVID-19 MODERNA 12+ YRS VACCINE 2020-08-11 00:00:00 Completed [facility] SARS-COV-2 COVID-19 MODERNA 12+ YRS VACCINE 2020-08-11 00:00:00 Completed [facility] SARS-COV-2 COVID-19 MODERNA 12+ YRS VACCINE 2020-08-11 00:00:00 Completed [facility] SARS-COV-2 COVID-19 MODERNA 12+ YRS VACCINE 2020-08-11 00:00:00 Completed [facility] SARS-COV-2 COVID-19 MODERNA 12+ YRS VACCINE 2020-08-11 00:00:00 Completed [facility] SARS-COV-2 COVID-19 MODERNA 12+ YRS VACCINE 2020-08-11 00:00:00 Completed [facility] SARS-COV-2 COVID-19 MODERNA 12+ YRS VACCINE 2020-08-11 00:00:00 Completed [facility] SARS-COV-2 COVID-19 MODERNA 12+ YRS VACCINE 2020-08-11 00:00:00 Completed [facility] SARS-COV-2 COVID-19 MODERNA 12+ YRS VACCINE 2020-08-11 00:00:00 Completed [facility] SARS-COV-2 COVID-19 MODERNA 12+ YRS VACCINE 2020-08-11 00:00:00 Completed [facility] SARS-COV-2 COVID-19 MODERNA 12+ YRS VACCINE 2020-08-11 00:00:00 Completed [facility] SARS-COV-2 COVID-19 MODERNA 12+ YRS VACCINE 2020-08-11 00:00:00 Completed [facility] SARS-COV-2 COVID-19 MODERNA 12+ YRS VACCINE 2020-08-11 00:00:00 Completed [facility] SARS-COV-2 COVID-19 MODERNA 12+ YRS VACCINE 2020-08-11 00:00:00 Completed [facility] SARS-COV-2 COVID-19 MODERNA 12+ YRS VACCINE 2020-08-11 00:00:00 Completed [facility] SARS-COV-2 COVID-19 MODERNA 12+ YRS VACCINE 2020-08-11 00:00:00 Completed [facility] SARS-COV-2 COVID-19 MODERNA 12+ YRS VACCINE 2020-08-11 00:00:00 Completed [facility] SARS-COV-2 COVID-19 MODERNA 12+ YRS VACCINE 2020-08-11 00:00:00 Completed [facility] SARS-COV-2 COVID-19 MODERNA 12+ YRS VACCINE 2020-08-11 00:00:00 Completed [facility] SARS-COV-2 COVID-19 MODERNA 12+ YRS VACCINE 2020-08-11 00:00:00 Completed [facility] SARS-COV-2 COVID-19 MODERNA 12+ YRS VACCINE 2020-08-11 00:00:00 Completed [facility] SARS-COV-2 COVID-19 MODERNA 12+ YRS VACCINE 2020-08-11 00:00:00 Completed [facility] SARS-COV-2 COVID-19 MODERNA 12+ YRS VACCINE 2020-08-11 00:00:00 Completed [facility] SARS-COV-2 COVID-19 MODERNA 12+ YRS VACCINE 2020-08-11 00:00:00 Completed [facility] SARS-COV-2 COVID-19 MODERNA 12+ YRS VACCINE 2020-08-11 00:00:00 Completed [facility] [facility] SARS-COV-2 COVID-19 MODERNA 12+ YRS VACCINE 2020-08-11 00:00:00 Completed [facility] SARS-COV-2 COVID-19 MODERNA 12+ YRS VACCINE 2020-08-11 00:00:00 Completed [facility] SARS-COV-2 COVID-19 MODERNA 12+ YRS VACCINE 2020-08-11 00:00:00 Completed [facility] SARS-COV-2 COVID-19 MODERNA 12+ YRS VACCINE 2020-08-11 00:00:00 Completed [facility] SARS-COV-2 COVID-19 MODERNA 12+ YRS VACCINE 2020-08-11 00:00:00 Completed [facility] SARS-COV-2 COVID-19 MODERNA 12+ YRS VACCINE 2020-08-11 00:00:00 Completed [facility] SARS-COV-2 COVID-19 MODERNA 12+ YRS VACCINE 2020-08-11 00:00:00 Completed [facility] SARS-COV-2 COVID-19 MODERNA 12+ YRS VACCINE 2020-08-11 00:00:00 Completed [facility] SARS-COV-2 COVID-19 MODERNA 12+ YRS VACCINE 2020-08-11 00:00:00 Completed [facility] SARS-COV-2 COVID-19 MODERNA 12+ YRS VACCINE 2020-08-11 00:00:00 Completed [facility] SARS-COV-2 COVID-19 MODERNA 12+ YRS VACCINE 2020-08-11 00:00:00 Completed [facility] SARS-COV-2 COVID-19 MODERNA 12+ YRS VACCINE 2020-08-11 00:00:00 Completed [facility] SARS-COV-2 COVID-19 MODERNA 12+ YRS VACCINE 2020-08-11 00:00:00 Completed [facility] SARS-COV-2 COVID-19 MODERNA 12+ YRS VACCINE 2020-08-11 00:00:00 Completed [facility] SARS-COV-2 COVID-19 MODERNA 12+ YRS VACCINE 2020-08-11 00:00:00 Completed [facility] SARS-COV-2 COVID-19 MODERNA 12+ YRS VACCINE 2020-08-11 00:00:00 Completed [facility] SARS-COV-2 COVID-19 MODERNA 12+ YRS VACCINE 2020-08-11 00:00:00 Completed [facility] SARS-COV-2 COVID-19 MODERNA 12+ YRS VACCINE 2020-08-11 00:00:00 Completed [facility] SARS-COV-2 COVID-19 MODERNA 12+ YRS VACCINE 2020-08-11 00:00:00 Completed [facility] SARS-COV-2 COVID-19 MODERNA 12+ YRS VACCINE 2020-08-11 00:00:00 Completed [facility] SARS-COV-2 COVID-19 MODERNA 12+ YRS VACCINE 2020-08-11 00:00:00 Completed [facility] SARS-COV-2 COVID-19 MODERNA 12+ YRS VACCINE 2020-08-11 00:00:00 Completed [facility] SARS-COV-2 COVID-19 MODERNA 12+ YRS VACCINE 2020-08-11 00:00:00 Completed [facility] SARS-COV-2 COVID-19 MODERNA 12+ YRS VACCINE 2020-08-11 00:00:00 Completed [facility] SARS-COV-2 COVID-19 MODERNA 12+ YRS VACCINE 2020-08-11 00:00:00 Completed [facility] SARS-COV-2 COVID-19 MODERNA 12+ YRS VACCINE 2020-08-11 00:00:00 Completed [facility] SARS-COV-2 COVID-19 MODERNA 12+ YRS VACCINE 2020-08-11 00:00:00 Completed [facility] SARS-COV-2 COVID-19 MODERNA 12+ YRS VACCINE 2020-08-11 00:00:00 Completed [facility] SARS-COV-2 COVID-19 MODERNA 12+ YRS VACCINE 2020-08-11 00:00:00 Completed [facility] SARS-COV-2 COVID-19 MODERNA 12+ YRS VACCINE 2020-08-11 00:00:00 Completed [facility] SARS-COV-2 COVID-19 MODERNA 12+ YRS VACCINE 2020-08-11 00:00:00 Completed [facility] SARS-COV-2 COVID-19 MODERNA 12+ YRS VACCINE 2020-08-11 00:00:00 Completed [facility] SARS-COV-2 COVID-19 MODERNA 12+ YRS VACCINE 2020-08-11 00:00:00 Completed [facility] SARS-COV-2 COVID-19 MODERNA 12+ YRS VACCINE 2020-08-11 00:00:00 Completed [facility] SARS-COV-2 COVID-19 MODERNA 12+ YRS VACCINE 2020-08-11 00:00:00 Completed [facility] SARS-COV-2 COVID-19 MODERNA 12+ YRS VACCINE 2020-08-11 00:00:00 Completed [facility] SARS-COV-2 COVID-19 MODERNA 12+ YRS VACCINE 2020-08-11 00:00:00 Completed [facility] SARS-COV-2 COVID-19 MODERNA 12+ YRS VACCINE 2020-08-11 00:00:00 Completed [facility] SARS-COV-2 COVID-19 MODERNA 12+ YRS VACCINE 2020-08-11 00:00:00 Completed [facility] SARS-COV-2 COVID-19 MODERNA 12+ YRS VACCINE 2020-08-11 00:00:00 Completed [facility] SARS-COV-2 COVID-19 MODERNA 12+ YRS VACCINE 2020-08-11 00:00:00 Completed [facility] SARS-COV-2 COVID-19 MODERNA 12+ YRS VACCINE 2020-07-14 00:00:00 Completed [facility] SARS-COV-2 COVID-19 MODERNA 12+ YRS VACCINE 2020-07-14 00:00:00 Completed [facility] SARS-COV-2 COVID-19 MODERNA 12+ YRS VACCINE 2020-07-14 00:00:00 Completed [facility] SARS-COV-2 COVID-19 MODERNA 12+ YRS VACCINE 2020-07-14 00:00:00 Completed [facility] SARS-COV-2 COVID-19 MODERNA 12+ YRS VACCINE 2020-07-14 00:00:00 Completed [facility] SARS-COV-2 COVID-19 MODERNA 12+ YRS VACCINE 2020-07-14 00:00:00 Completed [facility] SARS-COV-2 COVID-19 MODERNA 12+ YRS VACCINE 2020-07-14 00:00:00 Completed [facility] SARS-COV-2 COVID-19 MODERNA 12+ YRS VACCINE 2020-07-14 00:00:00 Completed [facility] SARS-COV-2 COVID-19 MODERNA 12+ YRS VACCINE 2020-07-14 00:00:00 Completed [facility] SARS-COV-2 COVID-19 MODERNA 12+ YRS VACCINE 2020-07-14 00:00:00 Completed [facility] SARS-COV-2 COVID-19 MODERNA 12+ YRS VACCINE 2020-07-14 00:00:00 Completed [facility] SARS-COV-2 COVID-19 MODERNA 12+ YRS VACCINE 2020-07-14 00:00:00 Completed [facility] SARS-COV-2 COVID-19 MODERNA 12+ YRS VACCINE 2020-07-14 00:00:00 Completed [facility] SARS-COV-2 COVID-19 MODERNA 12+ YRS VACCINE 2020-07-14 00:00:00 Completed [facility] SARS-COV-2 COVID-19 MODERNA 12+ YRS VACCINE 2020-07-14 00:00:00 Completed [facility] SARS-COV-2 COVID-19 MODERNA 12+ YRS VACCINE 2020-07-14 00:00:00 Completed [facility] SARS-COV-2 COVID-19 MODERNA 12+ YRS VACCINE 2020-07-14 00:00:00 Completed [facility] SARS-COV-2 COVID-19 MODERNA 12+ YRS VACCINE 2020-07-14 00:00:00 Completed [facility] SARS-COV-2 COVID-19 MODERNA 12+ YRS VACCINE 2020-07-14 00:00:00 Completed [facility] SARS-COV-2 COVID-19 MODERNA 12+ YRS VACCINE 2020-07-14 00:00:00 Completed [facility] SARS-COV-2 COVID-19 MODERNA 12+ YRS VACCINE 2020-07-14 00:00:00 Completed [facility] SARS-COV-2 COVID-19 MODERNA 12+ YRS VACCINE 2020-07-14 00:00:00 Completed [facility] SARS-COV-2 COVID-19 MODERNA 12+ YRS VACCINE 2020-07-14 00:00:00 Completed [facility] SARS-COV-2 COVID-19 MODERNA 12+ YRS VACCINE 2020-07-14 00:00:00 Completed [facility] SARS-COV-2 COVID-19 MODERNA 12+ YRS VACCINE 2020-07-14 00:00:00 Completed [facility] SARS-COV-2 COVID-19 MODERNA 12+ YRS VACCINE 2020-07-14 00:00:00 Completed [facility] SARS-COV-2 COVID-19 MODERNA 12+ YRS VACCINE 2020-07-14 00:00:00 Completed [facility] SARS-COV-2 COVID-19 MODERNA 12+ YRS VACCINE 2020-07-14 00:00:00 Completed [facility] SARS-COV-2 COVID-19 MODERNA 12+ YRS VACCINE 2020-07-14 00:00:00 Completed [facility] SARS-COV-2 COVID-19 MODERNA 12+ YRS VACCINE 2020-07-14 00:00:00 Completed [facility] SARS-COV-2 COVID-19 MODERNA 12+ YRS VACCINE 2020-07-14 00:00:00 Completed [facility] SARS-COV-2 COVID-19 MODERNA 12+ YRS VACCINE 2020-07-14 00:00:00 Completed [facility] SARS-COV-2 COVID-19 MODERNA 12+ YRS VACCINE 2020-07-14 00:00:00 Completed [facility] SARS-COV-2 COVID-19 MODERNA 12+ YRS VACCINE 2020-07-14 00:00:00 Completed [facility] SARS-COV-2 COVID-19 MODERNA 12+ YRS VACCINE 2020-07-14 00:00:00 Completed [facility] SARS-COV-2 COVID-19 MODERNA 12+ YRS VACCINE 2020-07-14 00:00:00 Completed [facility] SARS-COV-2 COVID-19 MODERNA 12+ YRS VACCINE 2020-07-14 00:00:00 Completed [facility] SARS-COV-2 COVID-19 MODERNA 12+ YRS VACCINE 2020-07-14 00:00:00 Completed [facility] SARS-COV-2 COVID-19 MODERNA 12+ YRS VACCINE 2020-07-14 00:00:00 Completed [facility] SARS-COV-2 COVID-19 MODERNA 12+ YRS VACCINE 2020-07-14 00:00:00 Completed [facility] SARS-COV-2 COVID-19 MODERNA 12+ YRS VACCINE 2020-07-14 00:00:00 Completed [facility] SARS-COV-2 COVID-19 MODERNA 12+ YRS VACCINE 2020-07-14 00:00:00 Completed [facility] SARS-COV-2 COVID-19 MODERNA 12+ YRS VACCINE 2020-07-14 00:00:00 Completed [facility] SARS-COV-2 COVID-19 MODERNA 12+ YRS VACCINE 2020-07-14 00:00:00 Completed [facility] SARS-COV-2 COVID-19 MODERNA 12+ YRS VACCINE 2020-07-14 00:00:00 Completed [facility] SARS-COV-2 COVID-19 MODERNA 12+ YRS VACCINE 2020-07-14 00:00:00 Completed [facility] SARS-COV-2 COVID-19 MODERNA 12+ YRS VACCINE 2020-07-14 00:00:00 Completed [facility] SARS-COV-2 COVID-19 MODERNA 12+ YRS VACCINE 2020-07-14 00:00:00 Completed [facility] SARS-COV-2 COVID-19 MODERNA 12+ YRS VACCINE 2020-07-14 00:00:00 Completed [facility] SARS-COV-2 COVID-19 MODERNA 12+ YRS VACCINE 2020-07-14 00:00:00 Completed [facility] SARS-COV-2 COVID-19 MODERNA 12+ YRS VACCINE 2020-07-14 00:00:00 Completed [facility] SARS-COV-2 COVID-19 MODERNA 12+ YRS VACCINE 2020-07-14 00:00:00 Completed [facility] SARS-COV-2 COVID-19 MODERNA 12+ YRS VACCINE 2020-07-14 00:00:00 Completed [facility] SARS-COV-2 COVID-19 MODERNA 12+ YRS VACCINE 2020-07-14 00:00:00 Completed [facility] SARS-COV-2 COVID-19 MODERNA 12+ YRS VACCINE 2020-07-14 00:00:00 Completed [facility] SARS-COV-2 COVID-19 MODERNA 12+ YRS VACCINE 2020-07-14 00:00:00 Completed [facility] SARS-COV-2 COVID-19 MODERNA 12+ YRS VACCINE 2020-07-14 00:00:00 Completed [facility] SARS-COV-2 COVID-19 MODERNA 12+ YRS VACCINE 2020-07-14 00:00:00 Completed [facility] SARS-COV-2 COVID-19 MODERNA 12+ YRS VACCINE 2020-07-14 00:00:00 Completed [facility] SARS-COV-2 COVID-19 MODERNA 12+ YRS VACCINE 2020-07-14 00:00:00 Completed [facility] SARS-COV-2 COVID-19 MODERNA 12+ YRS VACCINE 2020-07-14 00:00:00 Completed [facility] SARS-COV-2 COVID-19 MODERNA 12+ YRS VACCINE 2020-07-14 00:00:00 Completed [facility] SARS-COV-2 COVID-19 MODERNA 12+ YRS VACCINE 2020-07-14 00:00:00 Completed [facility] SARS-COV-2 COVID-19 MODERNA 12+ YRS VACCINE 2020-07-14 00:00:00 Completed [facility] SARS-COV-2 COVID-19 MODERNA 12+ YRS VACCINE 2020-07-14 00:00:00 Completed [facility] SARS-COV-2 COVID-19 MODERNA 12+ YRS VACCINE 2020-07-14 00:00:00 Completed [facility] SARS-COV-2 COVID-19 MODERNA 12+ YRS VACCINE 2020-07-14 00:00:00 Completed [facility] SARS-COV-2 COVID-19 MODERNA 12+ YRS VACCINE 2020-07-14 00:00:00 Completed [facility] SARS-COV-2 COVID-19 MODERNA 12+ YRS VACCINE 2020-07-14 00:00:00 Completed [facility] SARS-COV-2 COVID-19 MODERNA 12+ YRS VACCINE 2020-07-14 00:00:00 Completed [facility] SARS-COV-2 COVID-19 MODERNA 12+ YRS VACCINE 2020-07-14 00:00:00 Completed [facility] SARS-COV-2 COVID-19 MODERNA 12+ YRS VACCINE 2020-07-14 00:00:00 Completed [facility] SARS-COV-2 COVID-19 MODERNA 12+ YRS VACCINE 2020-07-14 00:00:00 Completed [facility] Pneumococcal Polysaccharide, PPSV23 (PNEUMOVAX) 2018-08-05 00:00:00 Completed [facility] Pneumococcal Polysaccharide, PPSV23 (PNEUMOVAX) 2018-08-05 00:00:00 Completed [facility] Pneumococcal Polysaccharide, PPSV23 (PNEUMOVAX) 2018-08-05 00:00:00 Completed [facility] Pneumococcal Polysaccharide, PPSV23 (PNEUMOVAX) 2018-08-05 00:00:00 Completed [facility] Pneumococcal Polysaccharide, PPSV23 (PNEUMOVAX) 2018-08-05 00:00:00 Completed [facility] Pneumococcal Polysaccharide, PPSV23 (PNEUMOVAX) 2018-08-05 00:00:00 Completed [facility] Pneumococcal Polysaccharide, PPSV23 (PNEUMOVAX) 2018-08-05 00:00:00 Completed [facility] Pneumococcal Polysaccharide, PPSV23 (PNEUMOVAX) 2018-08-05 00:00:00 Completed [facility] Pneumococcal Polysaccharide, PPSV23 (PNEUMOVAX) 2018-08-05 00:00:00 Completed [facility] Pneumococcal Polysaccharide, PPSV23 (PNEUMOVAX) 2018-08-05 00:00:00 Completed [facility] Pneumococcal Polysaccharide, PPSV23 (PNEUMOVAX) 2018-08-05 00:00:00 Completed [facility] Pneumococcal Polysaccharide, PPSV23 (PNEUMOVAX) 2018-08-05 00:00:00 Completed [facility] Pneumococcal Polysaccharide, PPSV23 (PNEUMOVAX) 2018-08-05 00:00:00 Completed [facility] Pneumococcal Polysaccharide, PPSV23 (PNEUMOVAX) 2018-08-05 00:00:00 Completed [facility] Pneumococcal Polysaccharide, PPSV23 (PNEUMOVAX) 2018-08-05 00:00:00 Completed [facility] Pneumococcal Polysaccharide, PPSV23 (PNEUMOVAX) 2018-08-05 00:00:00 Completed [facility] Pneumococcal Polysaccharide, PPSV23 (PNEUMOVAX) 2018-08-05 00:00:00 Completed [facility] Pneumococcal Polysaccharide, PPSV23 (PNEUMOVAX) 2018-08-05 00:00:00 Completed [facility] Pneumococcal Polysaccharide, PPSV23 (PNEUMOVAX) 2018-08-05 00:00:00 Completed [facility] Pneumococcal Polysaccharide, PPSV23 (PNEUMOVAX) 2018-08-05 00:00:00 Completed [facility] Pneumococcal Polysaccharide, PPSV23 (PNEUMOVAX) 2018-08-05 00:00:00 Completed [facility] Pneumococcal Polysaccharide, PPSV23 (PNEUMOVAX) 2018-08-05 00:00:00 Completed [facility] Pneumococcal Polysaccharide, PPSV23 (PNEUMOVAX) 2018-08-05 00:00:00 Completed [facility] Pneumococcal Polysaccharide, PPSV23 (PNEUMOVAX) 2018-08-05 00:00:00 Completed [facility] Pneumococcal Polysaccharide, PPSV23 (PNEUMOVAX) 2018-08-05 00:00:00 Completed [facility] Pneumococcal Polysaccharide, PPSV23 (PNEUMOVAX) 2018-08-05 00:00:00 Completed [facility] Pneumococcal Polysaccharide, PPSV23 (PNEUMOVAX) 2018-08-05 00:00:00 Completed [facility] Pneumococcal Polysaccharide, PPSV23 (PNEUMOVAX) 2018-08-05 00:00:00 Completed [facility] Pneumococcal Polysaccharide, PPSV23 (PNEUMOVAX) 2018-08-05 00:00:00 Completed [facility] Pneumococcal Polysaccharide, PPSV23 (PNEUMOVAX) 2018-08-05 00:00:00 Completed [facility] Pneumococcal Polysaccharide, PPSV23 (PNEUMOVAX) 2018-08-05 00:00:00 Completed [facility] Pneumococcal Polysaccharide, PPSV23 (PNEUMOVAX) 2018-08-05 00:00:00 Completed [facility] Pneumococcal Polysaccharide, PPSV23 (PNEUMOVAX) 2018-08-05 00:00:00 Completed [facility] Pneumococcal Polysaccharide, PPSV23 (PNEUMOVAX) 2018-08-05 00:00:00 Completed [facility] Pneumococcal Polysaccharide, PPSV23 (PNEUMOVAX) 2018-08-05 00:00:00 Completed [facility] Pneumococcal Polysaccharide, PPSV23 (PNEUMOVAX) 2018-08-05 00:00:00 Completed [facility] Pneumococcal Polysaccharide, PPSV23 (PNEUMOVAX) 2018-08-05 00:00:00 Completed [facility] Pneumococcal Polysaccharide, PPSV23 (PNEUMOVAX) 2018-08-05 00:00:00 Completed [facility] Pneumococcal Polysaccharide, PPSV23 (PNEUMOVAX) 2018-08-05 00:00:00 Completed [facility] Pneumococcal Polysaccharide, PPSV23 (PNEUMOVAX) 2018-08-05 00:00:00 Completed [facility] Pneumococcal Polysaccharide, PPSV23 (PNEUMOVAX) 2018-08-05 00:00:00 Completed [facility] Pneumococcal Polysaccharide, PPSV23 (PNEUMOVAX) 2018-08-05 00:00:00 Completed [facility] Pneumococcal Polysaccharide, PPSV23 (PNEUMOVAX) 2018-08-05 00:00:00 Completed [facility] Pneumococcal Polysaccharide, PPSV23 (PNEUMOVAX) 2018-08-05 00:00:00 Completed [facility] Pneumococcal Polysaccharide, PPSV23 (PNEUMOVAX) 2018-08-05 00:00:00 Completed [facility] Pneumococcal Polysaccharide, PPSV23 (PNEUMOVAX) 2018-08-05 00:00:00 Completed [facility] Pneumococcal Polysaccharide, PPSV23 (PNEUMOVAX) 2018-08-05 00:00:00 Completed [facility] Pneumococcal Polysaccharide, PPSV23 (PNEUMOVAX) 2018-08-05 00:00:00 Completed [facility] Pneumococcal Polysaccharide, PPSV23 (PNEUMOVAX) 2018-08-05 00:00:00 Completed [facility] Pneumococcal Polysaccharide, PPSV23 (PNEUMOVAX) 2018-08-05 00:00:00 Completed [facility] Pneumococcal Polysaccharide, PPSV23 (PNEUMOVAX) 2018-08-05 00:00:00 Completed [facility] Pneumococcal Polysaccharide, PPSV23 (PNEUMOVAX) 2018-08-05 00:00:00 Completed [facility] Pneumococcal Polysaccharide, PPSV23 (PNEUMOVAX) 2018-08-05 00:00:00 Completed [facility] Pneumococcal Polysaccharide, PPSV23 (PNEUMOVAX) 2018-08-05 00:00:00 Completed [facility] Pneumococcal Polysaccharide, PPSV23 (PNEUMOVAX) 2018-08-05 00:00:00 Completed [facility] Pneumococcal Polysaccharide, PPSV23 (PNEUMOVAX) 2018-08-05 00:00:00 Completed [facility] Pneumococcal Polysaccharide, PPSV23 (PNEUMOVAX) 2018-08-05 00:00:00 Completed [facility] Pneumococcal Polysaccharide, PPSV23 (PNEUMOVAX) 2018-08-05 00:00:00 Completed [facility] Pneumococcal Polysaccharide, PPSV23 (PNEUMOVAX) 2018-08-05 00:00:00 Completed [facility] Pneumococcal Polysaccharide, PPSV23 (PNEUMOVAX) 2018-08-05 00:00:00 Completed [facility] Pneumococcal Polysaccharide, PPSV23 (PNEUMOVAX) 2018-08-05 00:00:00 Completed [facility] Pneumococcal Polysaccharide, PPSV23 (PNEUMOVAX) 2018-08-05 00:00:00 Completed [facility] Pneumococcal Polysaccharide, PPSV23 (PNEUMOVAX) 2018-08-05 00:00:00 Completed [facility] Pneumococcal Polysaccharide, PPSV23 (PNEUMOVAX) 2018-08-05 00:00:00 Completed [facility] Pneumococcal Polysaccharide, PPSV23 (PNEUMOVAX) 2018-08-05 00:00:00 Completed [facility] Pneumococcal Polysaccharide, PPSV23 (PNEUMOVAX) 2018-08-05 00:00:00 Completed [facility] Pneumococcal Polysaccharide, PPSV23 (PNEUMOVAX) 2018-08-05 00:00:00 Completed [facility] Pneumococcal Polysaccharide, PPSV23 (PNEUMOVAX) 2018-08-05 00:00:00 Completed [facility] Pneumococcal Polysaccharide, PPSV23 (PNEUMOVAX) 2018-08-05 00:00:00 Completed [facility] Pneumococcal Polysaccharide, PPSV23 (PNEUMOVAX) 2018-08-05 00:00:00 Completed [facility] Pneumococcal Polysaccharide, PPSV23 (PNEUMOVAX) 2018-08-05 00:00:00 Completed [facility] Pneumococcal Polysaccharide, PPSV23 (PNEUMOVAX) 2018-08-05 00:00:00 Completed Pneumococcal Polysaccharide, PPSV23 (PNEUMOVAX) 2018-08-05 00:00:00 Completed Pneumococcal Polysaccharide, PPSV23 (PNEUMOVAX) Unknown Completed [facility] SARS-COV-2 COVID-19 MODERNA 12+ YRS VACCINE Unknown Completed [facility] SARS-COV-2 COVID-19 VACCINE 12 YRS+, BIVALENT 0.5ML, IM, (MODERNA-BLUE TOP) Unknown Completed [facility] Pneumococcal Polysaccharide, PPSV23 (PNEUMOVAX) Unknown Completed [facility] SARS-COV-2 COVID-19 MODERNA 12+ YRS VACCINE Unknown Completed [facility] SARS-COV-2 COVID-19 VACCINE 12 YRS+, BIVALENT 0.5ML, IM, (MODERNA-BLUE TOP) Unknown Completed [facility] Pneumococcal Polysaccharide, PPSV23 (PNEUMOVAX) Unknown Completed [facility] SARS-COV-2 COVID-19 MODERNA 12+ YRS VACCINE Unknown Completed [facility] SARS-COV-2 COVID-19 VACCINE 12 YRS+, BIVALENT 0.5ML, IM, (MODERNA-BLUE TOP) Unknown Completed [facility] Pneumococcal Polysaccharide, PPSV23 (PNEUMOVAX) Unknown Completed [facility] SARS-COV-2 COVID-19 MODERNA 12+ YRS VACCINE Unknown Completed [facility] SARS-COV-2 COVID-19 VACCINE 12 YRS+, BIVALENT 0.5ML, IM, (MODERNA-BLUE TOP) Unknown Completed [facility] Pneumococcal Polysaccharide, PPSV23 (PNEUMOVAX) Unknown Completed [facility] SARS-COV-2 COVID-19 MODERNA 12+ YRS VACCINE Unknown Completed [facility] SARS-COV-2 COVID-19 VACCINE 12 YRS+, BIVALENT 0.5ML, IM, (MODERNA-BLUE TOP) Unknown Completed [facility] Pneumococcal Polysaccharide, PPSV23 (PNEUMOVAX) Unknown Completed [facility] SARS-COV-2 COVID-19 MODERNA 12+ YRS VACCINE Unknown Completed [facility] SARS-COV-2 COVID-19 VACCINE 12 YRS+, BIVALENT 0.5ML, IM, (MODERNA-BLUE TOP) Unknown Completed [facility] Pneumococcal Polysaccharide, PPSV23 (PNEUMOVAX) Unknown Completed [facility] SARS-COV-2 COVID-19 MODERNA 12+ YRS VACCINE Unknown Completed [facility] SARS-COV-2 COVID-19 VACCINE 12 YRS+, BIVALENT 0.5ML, IM, (MODERNA-BLUE TOP) Unknown Completed [facility] Pneumococcal Polysaccharide, PPSV23 (PNEUMOVAX) Unknown Completed [facility] SARS-COV-2 COVID-19 MODERNA 12+ YRS VACCINE Unknown Completed [facility] SARS-COV-2 COVID-19 VACCINE 12 YRS+, BIVALENT 0.5ML, IM, (MODERNA-BLUE TOP) Unknown Completed [facility] Pneumococcal Polysaccharide, PPSV23 (PNEUMOVAX) Unknown Completed [facility] SARS-COV-2 COVID-19 MODERNA 12+ YRS VACCINE Unknown Completed [facility] SARS-COV-2 COVID-19 VACCINE 12 YRS+, BIVALENT 0.5ML, IM, (MODERNA-BLUE TOP) Unknown Completed [facility] Pneumococcal Polysaccharide, PPSV23 (PNEUMOVAX) Unknown Completed [facility] SARS-COV-2 COVID-19 MODERNA 12+ YRS VACCINE Unknown Completed [facility] SARS-COV-2 COVID-19 VACCINE 12 YRS+, BIVALENT 0.5ML, IM, (MODERNA-BLUE TOP) Unknown Completed [facility] Pneumococcal Polysaccharide, PPSV23 (PNEUMOVAX) Unknown Completed [facility] SARS-COV-2 COVID-19 MODERNA 12+ YRS VACCINE Unknown Completed [facility] SARS-COV-2 COVID-19 VACCINE 12 YRS+, BIVALENT 0.5ML, IM, (MODERNA-BLUE TOP) Unknown Completed [facility] Pneumococcal Polysaccharide, PPSV23 (PNEUMOVAX) Unknown Completed [facility] SARS-COV-2 COVID-19 MODERNA 12+ YRS VACCINE Unknown Completed [facility] SARS-COV-2 COVID-19 VACCINE 12 YRS+, BIVALENT 0.5ML, IM, (MODERNA-BLUE TOP) Unknown Completed [facility] Pneumococcal Polysaccharide, PPSV23 (PNEUMOVAX) Unknown Completed [facility] SARS-COV-2 COVID-19 MODERNA 12+ YRS VACCINE Unknown Completed [facility] SARS-COV-2 COVID-19 VACCINE 12 YRS+, BIVALENT 0.5ML, IM, (MODERNA-BLUE TOP) Unknown Completed [facility] Pneumococcal Polysaccharide, PPSV23 (PNEUMOVAX) Unknown Completed [facility] SARS-COV-2 COVID-19 MODERNA 12+ YRS VACCINE Unknown Completed [facility] SARS-COV-2 COVID-19 VACCINE 12 YRS+, BIVALENT 0.5ML, IM, (MODERNA-BLUE TOP) Unknown Completed [facility] Pneumococcal Polysaccharide, PPSV23 (PNEUMOVAX) Unknown Completed [facility] SARS-COV-2 COVID-19 MODERNA 12+ YRS VACCINE Unknown Completed [facility] SARS-COV-2 COVID-19 VACCINE 12 YRS+, BIVALENT 0.5ML, IM, (MODERNA-BLUE TOP) Unknown Completed [facility] Pneumococcal Polysaccharide, PPSV23 (PNEUMOVAX) Unknown Completed [facility] SARS-COV-2 COVID-19 MODERNA 12+ YRS VACCINE Unknown Completed [facility] SARS-COV-2 COVID-19 VACCINE 12 YRS+, BIVALENT 0.5ML, IM, (MODERNA-BLUE TOP) Unknown Completed [facility] Pneumococcal Polysaccharide, PPSV23 (PNEUMOVAX) Unknown Completed [facility] SARS-COV-2 COVID-19 MODERNA 12+ YRS VACCINE Unknown Completed [facility] SARS-COV-2 COVID-19 VACCINE 12 YRS+, BIVALENT 0.5ML, IM, (MODERNA-BLUE TOP) Unknown Completed [facility] Pneumococcal Polysaccharide, PPSV23 (PNEUMOVAX) Unknown Completed [facility] SARS-COV-2 COVID-19 MODERNA 12+ YRS VACCINE Unknown Completed [facility] SARS-COV-2 COVID-19 VACCINE 12 YRS+, BIVALENT 0.5ML, IM, (MODERNA-BLUE TOP) Unknown Completed [facility] Pneumococcal Polysaccharide, PPSV23 (PNEUMOVAX) Unknown Completed [facility] SARS-COV-2 COVID-19 MODERNA 12+ YRS VACCINE Unknown Completed [facility] SARS-COV-2 COVID-19 VACCINE 12 YRS+, BIVALENT 0.5ML, IM, (MODERNA-BLUE TOP) Unknown Completed [facility] Pneumococcal Polysaccharide, PPSV23 (PNEUMOVAX) Unknown Completed [facility] SARS-COV-2 COVID-19 MODERNA 12+ YRS VACCINE Unknown Completed [facility] SARS-COV-2 COVID-19 MODERNA 0.25ML BOOSTER VACCINE Unknown Completed [facility] SARS-COV-2 COVID-19 VACCINE 12 YRS+, BIVALENT 0.5ML, IM, (MODERNA-BLUE TOP) Unknown Completed [facility] Pneumococcal Polysaccharide, PPSV23 (PNEUMOVAX) Unknown Completed [facility] SARS-COV-2 COVID-19 MODERNA 12+ YRS VACCINE Unknown Completed [facility] SARS-COV-2 COVID-19 MODERNA 0.25ML BOOSTER VACCINE Unknown Completed [facility] SARS-COV-2 COVID-19 VACCINE 12 YRS+, BIVALENT 0.5ML, IM, (MODERNA-BLUE TOP) Unknown Completed [facility] Pneumococcal Polysaccharide, PPSV23 (PNEUMOVAX) Unknown Completed [facility] SARS-COV-2 COVID-19 MODERNA 12+ YRS VACCINE Unknown Completed [facility] SARS-COV-2 COVID-19 VACCINE 12 YRS+, BIVALENT 0.5ML, IM, (MODERNA-BLUE TOP) Unknown Completed [facility] Pneumococcal Polysaccharide, PPSV23 (PNEUMOVAX) Unknown Completed [facility] SARS-COV-2 COVID-19 MODERNA 12+ YRS VACCINE Unknown Completed [facility] SARS-COV-2 COVID-19 VACCINE 12 YRS+, BIVALENT 0.5ML, IM, (MODERNA-BLUE TOP) Unknown Completed [facility] Pneumococcal Polysaccharide, PPSV23 (PNEUMOVAX) Unknown Completed [facility] SARS-COV-2 COVID-19 MODERNA 12+ YRS VACCINE Unknown Completed [facility] SARS-COV-2 COVID-19 VACCINE 12 YRS+, BIVALENT 0.5ML, IM, (MODERNA-BLUE TOP) Unknown Completed [facility] Pneumococcal Polysaccharide, PPSV23 (PNEUMOVAX) Unknown Completed [facility] SARS-COV-2 COVID-19 MODERNA 12+ YRS VACCINE Unknown Completed [facility] SARS-COV-2 COVID-19 VACCINE 12 YRS+, BIVALENT 0.5ML, IM, (MODERNA-BLUE TOP) Unknown Completed [facility] Pneumococcal Polysaccharide, PPSV23 (PNEUMOVAX) Unknown Completed [facility] SARS-COV-2 COVID-19 MODERNA 12+ YRS VACCINE Unknown Completed [facility] SARS-COV-2 COVID-19 VACCINE 12 YRS+, BIVALENT 0.5ML, IM, (MODERNA-BLUE TOP) Unknown Completed [facility] Pneumococcal Polysaccharide, PPSV23 (PNEUMOVAX) Unknown Completed [facility] SARS-COV-2 COVID-19 MODERNA 12+ YRS VACCINE Unknown Completed [facility] SARS-COV-2 COVID-19 VACCINE 12 YRS+, BIVALENT 0.5ML, IM, (MODERNA-BLUE TOP) Unknown Completed [facility] Pneumococcal Polysaccharide, PPSV23 (PNEUMOVAX) Unknown Completed [facility] SARS-COV-2 COVID-19 MODERNA 12+ YRS VACCINE Unknown Completed [facility] SARS-COV-2 COVID-19 VACCINE 12 YRS+, BIVALENT 0.5ML, IM, (MODERNA-BLUE TOP) Unknown Completed [facility] Pneumococcal Polysaccharide, PPSV23 (PNEUMOVAX) Unknown Completed [facility] SARS-COV-2 COVID-19 VACCINE 12 YRS+, BIVALENT 0.5ML, IM, (MODERNA-BLUE TOP) Unknown Completed [facility] SARS-COV-2 COVID-19 MODERNA 12+ YRS VACCINE Unknown Completed [facility] SARS-COV-2 COVID-19 MODERNA 0.25ML BOOSTER VACCINE Unknown Completed [facility] SARS-COV-2 COVID-19 MODERNA 0.25ML BOOSTER VACCINE Unknown Completed [facility] Pneumococcal Polysaccharide, PPSV23 (PNEUMOVAX) Unknown Completed [facility] SARS-COV-2 COVID-19 MODERNA 12+ YRS VACCINE Unknown Completed [facility] SARS-COV-2 COVID-19 VACCINE 12 YRS+, BIVALENT 0.5ML, IM, (MODERNA-BLUE TOP) Unknown Completed [facility] Pneumococcal Polysaccharide, PPSV23 (PNEUMOVAX) Unknown Completed [facility] SARS-COV-2 COVID-19 MODERNA 12+ YRS VACCINE Unknown Completed [facility] SARS-COV-2 COVID-19 VACCINE 12 YRS+, BIVALENT 0.5ML, IM, (MODERNA-BLUE TOP) Unknown Completed [facility] Pneumococcal Polysaccharide, PPSV23 (PNEUMOVAX) Unknown Completed [facility] SARS-COV-2 COVID-19 MODERNA 12+ YRS VACCINE Unknown Completed [facility] SARS-COV-2 COVID-19 VACCINE 12 YRS+, BIVALENT 0.5ML, IM, (MODERNA-BLUE TOP) Unknown Completed [facility] Pneumococcal Polysaccharide, PPSV23 (PNEUMOVAX) Unknown Completed [facility] SARS-COV-2 COVID-19 MODERNA 12+ YRS VACCINE Unknown Completed [facility] SARS-COV-2 COVID-19 VACCINE 12 YRS+, BIVALENT 0.5ML, IM, (MODERNA-BLUE TOP) Unknown Completed [facility] Pneumococcal Polysaccharide, PPSV23 (PNEUMOVAX) Unknown Completed [facility] SARS-COV-2 COVID-19 MODERNA 12+ YRS VACCINE Unknown Completed [facility] SARS-COV-2 COVID-19 VACCINE 12 YRS+, BIVALENT 0.5ML, IM, (MODERNA-BLUE TOP) Unknown Completed [facility] Pneumococcal Polysaccharide, PPSV23 (PNEUMOVAX) Unknown Completed [facility] SARS-COV-2 COVID-19 MODERNA 12+ YRS VACCINE Unknown Completed [facility] SARS-COV-2 COVID-19 VACCINE 12 YRS+, BIVALENT 0.5ML, IM, (MODERNA-BLUE TOP) Unknown Completed [facility] Pneumococcal Polysaccharide, PPSV23 (PNEUMOVAX) Unknown Completed [facility] SARS-COV-2 COVID-19 MODERNA 12+ YRS VACCINE Unknown Completed [facility] SARS-COV-2 COVID-19 VACCINE 12 YRS+, BIVALENT 0.5ML, IM, (MODERNA-BLUE TOP) Unknown Completed [facility] Pneumococcal Polysaccharide, PPSV23 (PNEUMOVAX) Unknown Completed [facility] SARS-COV-2 COVID-19 MODERNA 12+ YRS VACCINE Unknown Completed [facility] SARS-COV-2 COVID-19 VACCINE 12 YRS+, BIVALENT 0.5ML, IM, (MODERNA-BLUE TOP) Unknown Completed [facility] Pneumococcal Polysaccharide, PPSV23 (PNEUMOVAX) Unknown Completed [facility] SARS-COV-2 COVID-19 MODERNA 12+ YRS VACCINE Unknown Completed [facility] SARS-COV-2 COVID-19 VACCINE 12 YRS+, BIVALENT 0.5ML, IM, (MODERNA-BLUE TOP) Unknown Completed [facility] Pneumococcal Polysaccharide, PPSV23 (PNEUMOVAX) Unknown Completed [facility] SARS-COV-2 COVID-19 MODERNA 12+ YRS VACCINE Unknown Completed [facility] SARS-COV-2 COVID-19 VACCINE 12 YRS+, BIVALENT 0.5ML, IM, (MODERNA-BLUE TOP) Unknown Completed [facility] Pneumococcal Polysaccharide, PPSV23 (PNEUMOVAX) Unknown Completed [facility] SARS-COV-2 COVID-19 MODERNA 12+ YRS VACCINE Unknown Completed [facility] SARS-COV-2 COVID-19 VACCINE 12 YRS+, BIVALENT 0.5ML, IM, (MODERNA-BLUE TOP) Unknown Completed [facility] Pneumococcal Polysaccharide, PPSV23 (PNEUMOVAX) Unknown Completed [facility] SARS-COV-2 COVID-19 MODERNA 12+ YRS VACCINE Unknown Completed [facility] SARS-COV-2 COVID-19 VACCINE 12 YRS+, BIVALENT 0.5ML, IM, (MODERNA-BLUE TOP) Unknown Completed [facility] Pneumococcal Polysaccharide, PPSV23 (PNEUMOVAX) Unknown Completed [facility] SARS-COV-2 COVID-19 MODERNA 12+ YRS VACCINE Unknown Completed [facility] SARS-COV-2 COVID-19 VACCINE 12 YRS+, BIVALENT 0.5ML, IM, (MODERNA-BLUE TOP) Unknown Completed [facility] Pneumococcal Polysaccharide, PPSV23 (PNEUMOVAX) Unknown Completed [facility] SARS-COV-2 COVID-19 MODERNA 12+ YRS VACCINE Unknown Completed [facility] SARS-COV-2 COVID-19 VACCINE 12 YRS+, BIVALENT 0.5ML, IM, (MODERNA-BLUE TOP) Unknown Completed [facility] Pneumococcal Polysaccharide, PPSV23 (PNEUMOVAX) Unknown Completed [facility] SARS-COV-2 COVID-19 MODERNA 12+ YRS VACCINE Unknown Completed [facility] SARS-COV-2 COVID-19 VACCINE 12 YRS+, BIVALENT 0.5ML, IM, (MODERNA-BLUE TOP) Unknown Completed [facility] Pneumococcal Polysaccharide, PPSV23 (PNEUMOVAX) Unknown Completed [facility] SARS-COV-2 COVID-19 MODERNA 12+ YRS VACCINE Unknown Completed [facility] SARS-COV-2 COVID-19 VACCINE 12 YRS+, BIVALENT 0.5ML, IM, (MODERNA-BLUE TOP) Unknown Completed [facility] Pneumococcal Polysaccharide, PPSV23 (PNEUMOVAX) Unknown Completed [facility] SARS-COV-2 COVID-19 MODERNA 12+ YRS VACCINE Unknown Completed [facility] SARS-COV-2 COVID-19 VACCINE 12 YRS+, BIVALENT 0.5ML, IM, (MODERNA-BLUE TOP) Unknown Completed [facility] Pneumococcal Polysaccharide, PPSV23 (PNEUMOVAX) Unknown Completed [facility] SARS-COV-2 COVID-19 MODERNA 12+ YRS VACCINE Unknown Completed [facility] SARS-COV-2 COVID-19 VACCINE 12 YRS+, BIVALENT 0.5ML, IM, (MODERNA-BLUE TOP) Unknown Completed [facility] Pneumococcal Polysaccharide, PPSV23 (PNEUMOVAX) Unknown Completed [facility] SARS-COV-2 COVID-19 MODERNA 12+ YRS VACCINE Unknown Completed [facility] SARS-COV-2 COVID-19 VACCINE 12 YRS+, BIVALENT 0.5ML, IM, (MODERNA-BLUE TOP) Unknown Completed [facility] Pneumococcal Polysaccharide, PPSV23 (PNEUMOVAX) Unknown Completed [facility] SARS-COV-2 COVID-19 MODERNA 12+ YRS VACCINE Unknown Completed [facility] SARS-COV-2 COVID-19 VACCINE 12 YRS+, BIVALENT 0.5ML, IM, (MODERNA-BLUE TOP) Unknown Completed [facility] Pneumococcal Polysaccharide, PPSV23 (PNEUMOVAX) Unknown Completed [facility] SARS-COV-2 COVID-19 MODERNA 12+ YRS VACCINE Unknown Completed [facility] SARS-COV-2 COVID-19 VACCINE 12 YRS+, BIVALENT 0.5ML, IM, (MODERNA-BLUE TOP) Unknown Completed [facility] Pneumococcal Polysaccharide, PPSV23 (PNEUMOVAX) Unknown Completed [facility] SARS-COV-2 COVID-19 MODERNA 12+ YRS VACCINE Unknown Completed [facility] SARS-COV-2 COVID-19 VACCINE 12 YRS+, BIVALENT 0.5ML, IM, (MODERNA-BLUE TOP) Unknown Completed [facility] Pneumococcal Polysaccharide, PPSV23 (PNEUMOVAX) Unknown Completed [facility] SARS-COV-2 COVID-19 MODERNA 12+ YRS VACCINE Unknown Completed [facility] SARS-COV-2 COVID-19 VACCINE 12 YRS+, BIVALENT 0.5ML, IM, (MODERNA-BLUE TOP) Unknown Completed [facility] Pneumococcal Polysaccharide, PPSV23 (PNEUMOVAX) Unknown Completed [facility] SARS-COV-2 COVID-19 MODERNA 12+ YRS VACCINE Unknown Completed [facility] SARS-COV-2 COVID-19 VACCINE 12 YRS+, BIVALENT 0.5ML, IM, (MODERNA-BLUE TOP) Unknown Completed [facility] Pneumococcal Polysaccharide, PPSV23 (PNEUMOVAX) Unknown Completed [facility] SARS-COV-2 COVID-19 MODERNA 12+ YRS VACCINE Unknown Completed [facility] SARS-COV-2 COVID-19 VACCINE 12 YRS+, BIVALENT 0.5ML, IM, (MODERNA-BLUE TOP) Unknown Completed [facility] Pneumococcal Polysaccharide, PPSV23 (PNEUMOVAX) Unknown Completed [facility] SARS-COV-2 COVID-19 MODERNA 12+ YRS VACCINE Unknown Completed [facility] SARS-COV-2 COVID-19 VACCINE 12 YRS+, BIVALENT 0.5ML, IM, (MODERNA-BLUE TOP) Unknown Completed [facility] Pneumococcal Polysaccharide, PPSV23 (PNEUMOVAX) Unknown Completed [facility] SARS-COV-2 COVID-19 MODERNA 12+ YRS VACCINE Unknown Completed [facility] SARS-COV-2 COVID-19 VACCINE 12 YRS+, BIVALENT 0.5ML, IM, (MODERNA-BLUE TOP) Unknown Completed [facility] Pneumococcal Polysaccharide, PPSV23 (PNEUMOVAX) Unknown Completed [facility] SARS-COV-2 COVID-19 MODERNA 12+ YRS VACCINE Unknown Completed [facility] SARS-COV-2 COVID-19 VACCINE 12 YRS+, BIVALENT 0.5ML, IM, (MODERNA-BLUE TOP) Unknown Completed [facility] Pneumococcal Polysaccharide, PPSV23 (PNEUMOVAX) Unknown Completed [facility] SARS-COV-2 COVID-19 MODERNA 12+ YRS VACCINE Unknown Completed [facility] SARS-COV-2 COVID-19 VACCINE 12 YRS+, BIVALENT 0.5ML, IM, (MODERNA-BLUE TOP) Unknown Completed [facility] Pneumococcal Polysaccharide, PPSV23 (PNEUMOVAX) Unknown Completed [facility] SARS-COV-2 COVID-19 MODERNA 12+ YRS VACCINE Unknown Completed [facility] SARS-COV-2 COVID-19 VACCINE 12 YRS+, BIVALENT 0.5ML, IM, (MODERNA-BLUE TOP) Unknown Completed [facility] Pneumococcal Polysaccharide, PPSV23 (PNEUMOVAX) Unknown Completed [facility] SARS-COV-2 COVID-19 MODERNA 12+ YRS VACCINE Unknown Completed [facility] SARS-COV-2 COVID-19 VACCINE 12 YRS+, BIVALENT 0.5ML, IM, (MODERNA-BLUE TOP) Unknown Completed [facility] Pneumococcal Polysaccharide, PPSV23 (PNEUMOVAX) Unknown Completed [facility] SARS-COV-2 COVID-19 MODERNA 12+ YRS VACCINE Unknown Completed [facility] SARS-COV-2 COVID-19 VACCINE 12 YRS+, BIVALENT 0.5ML, IM, (MODERNA-BLUE TOP) Unknown Completed [facility] Pneumococcal Polysaccharide, PPSV23 (PNEUMOVAX) Unknown Completed [facility] SARS-COV-2 COVID-19 MODERNA 12+ YRS VACCINE Unknown Completed [facility] SARS-COV-2 COVID-19 VACCINE 12 YRS+, BIVALENT 0.5ML, IM, (MODERNA-BLUE TOP) Unknown Completed [facility] Pneumococcal Polysaccharide, PPSV23 (PNEUMOVAX) Unknown Completed [facility] SARS-COV-2 COVID-19 MODERNA 12+ YRS VACCINE Unknown Completed [facility] SARS-COV-2 COVID-19 VACCINE 12 YRS+, BIVALENT 0.5ML, IM, (MODERNA-BLUE TOP) Unknown Completed [facility] Pneumococcal Polysaccharide, PPSV23 (PNEUMOVAX) Unknown Completed [facility] SARS-COV-2 COVID-19 MODERNA 12+ YRS VACCINE Unknown Completed [facility] SARS-COV-2 COVID-19 VACCINE 12 YRS+, BIVALENT 0.5ML, IM, (MODERNA-BLUE TOP) Unknown Completed [facility] Pneumococcal Polysaccharide, PPSV23 (PNEUMOVAX) Unknown Completed [facility] SARS-COV-2 COVID-19 MODERNA 12+ YRS VACCINE Unknown Completed [facility] SARS-COV-2 COVID-19 MODERNA 0.25ML BOOSTER VACCINE Unknown Completed [facility] SARS-COV-2 COVID-19 VACCINE 12 YRS+, BIVALENT 0.5ML, IM, (MODERNA-BLUE TOP) Unknown Completed [facility] Pneumococcal Polysaccharide, PPSV23 (PNEUMOVAX) Unknown Completed [facility] SARS-COV-2 COVID-19 MODERNA 12+ YRS VACCINE Unknown Completed [facility] SARS-COV-2 COVID-19 VACCINE 12 YRS+, BIVALENT 0.5ML, IM, (MODERNA-BLUE TOP) Unknown Completed [facility] Pneumococcal Polysaccharide, PPSV23 (PNEUMOVAX) Unknown Completed [facility] SARS-COV-2 COVID-19 MODERNA 12+ YRS VACCINE Unknown Completed [facility] SARS-COV-2 COVID-19 VACCINE 12 YRS+, BIVALENT 0.5ML, IM, (MODERNA-BLUE TOP) Unknown Completed [facility] Pneumococcal Polysaccharide, PPSV23 (PNEUMOVAX) Unknown Completed [facility] SARS-COV-2 COVID-19 VACCINE 12 YRS+, BIVALENT 0.5ML, IM, (MODERNA-BLUE TOP) Unknown Completed [facility] SARS-COV-2 COVID-19 MODERNA 12+ YRS VACCINE Unknown Completed [facility] SARS-COV-2 COVID-19 MODERNA 0.25ML BOOSTER VACCINE Unknown Completed [facility] Pneumococcal Polysaccharide, PPSV23 (PNEUMOVAX) Unknown Completed [facility] SARS-COV-2 COVID-19 MODERNA 12+ YRS VACCINE Unknown Completed [facility] SARS-COV-2 COVID-19 VACCINE 12 YRS+, BIVALENT 0.5ML, IM, (MODERNA-BLUE TOP) Unknown Completed [facility] Pneumococcal Polysaccharide, PPSV23 (PNEUMOVAX) Unknown Completed [facility] SARS-COV-2 COVID-19 MODERNA 12+ YRS VACCINE Unknown Completed [facility] SARS-COV-2 COVID-19 VACCINE 12 YRS+, BIVALENT 0.5ML, IM, (MODERNA-BLUE TOP) Unknown Completed [facility] Pneumococcal Polysaccharide, PPSV23 (PNEUMOVAX) Unknown Completed [facility] SARS-COV-2 COVID-19 MODERNA 12+ YRS VACCINE Unknown Completed [facility] SARS-COV-2 COVID-19 VACCINE 12 YRS+, BIVALENT 0.5ML, IM, (MODERNA-BLUE TOP) Unknown Completed [facility] Pneumococcal Polysaccharide, PPSV23 (PNEUMOVAX) Unknown Completed [facility] SARS-COV-2 COVID-19 MODERNA 12+ YRS VACCINE Unknown Completed [facility] SARS-COV-2 COVID-19 VACCINE 12 YRS+, BIVALENT 0.5ML, IM, (MODERNA-BLUE TOP) Unknown Completed [facility] Pneumococcal Polysaccharide, PPSV23 (PNEUMOVAX) Unknown Completed [facility] SARS-COV-2 COVID-19 MODERNA 12+ YRS VACCINE Unknown Completed [facility] SARS-COV-2 COVID-19 VACCINE 12 YRS+, BIVALENT 0.5ML, IM, (MODERNA-BLUE TOP) Unknown Completed [facility] Pneumococcal Polysaccharide, PPSV23 (PNEUMOVAX) Unknown Completed [facility] SARS-COV-2 COVID-19 VACCINE 12 YRS+, BIVALENT 0.5ML, IM, (MODERNA-BLUE TOP) Unknown Completed [facility] SARS-COV-2 COVID-19 MODERNA 12+ YRS VACCINE Unknown Completed [facility] SARS-COV-2 COVID-19 MODERNA 0.25ML BOOSTER VACCINE Unknown Completed [facility] Pneumococcal Polysaccharide, PPSV23 (PNEUMOVAX) Unknown Completed [facility] SARS-COV-2 COVID-19 MODERNA 12+ YRS VACCINE Unknown Completed [facility] SARS-COV-2 COVID-19 VACCINE 12 YRS+, BIVALENT 0.5ML, IM, (MODERNA-BLUE TOP) Unknown Completed [facility] Pneumococcal Polysaccharide, PPSV23 (PNEUMOVAX) Unknown Completed [facility] SARS-COV-2 COVID-19 MODERNA 12+ YRS VACCINE Unknown Completed [facility] SARS-COV-2 COVID-19 VACCINE 12 YRS+, BIVALENT 0.5ML, IM, (MODERNA-BLUE TOP) Unknown Completed [facility] Pneumococcal Polysaccharide, PPSV23 (PNEUMOVAX) Unknown Completed [facility] SARS-COV-2 COVID-19 MODERNA 12+ YRS VACCINE Unknown Completed [facility] SARS-COV-2 COVID-19 VACCINE 12 YRS+, BIVALENT 0.5ML, IM, (MODERNA-BLUE TOP) Unknown Completed [facility] Pneumococcal Polysaccharide, PPSV23 (PNEUMOVAX) Unknown Completed [facility] SARS-COV-2 COVID-19 MODERNA 12+ YRS VACCINE Unknown Completed [facility] SARS-COV-2 COVID-19 VACCINE 12 YRS+, BIVALENT 0.5ML, IM, (MODERNA-BLUE TOP) Unknown Completed [facility] Pneumococcal Polysaccharide, PPSV23 (PNEUMOVAX) Unknown Completed [facility] SARS-COV-2 COVID-19 MODERNA 12+ YRS VACCINE Unknown Completed [facility] SARS-COV-2 COVID-19 VACCINE 12 YRS+, BIVALENT 0.5ML, IM, (MODERNA-BLUE TOP) Unknown Completed [facility] Pneumococcal Polysaccharide, PPSV23 (PNEUMOVAX) Unknown Completed [facility] SARS-COV-2 COVID-19 MODERNA 12+ YRS VACCINE Unknown Completed [facility] SARS-COV-2 COVID-19 VACCINE 12 YRS+, BIVALENT 0.5ML, IM, (MODERNA-BLUE TOP) Unknown Completed [facility] Pneumococcal Polysaccharide, PPSV23 (PNEUMOVAX) Unknown Completed [facility] SARS-COV-2 COVID-19 MODERNA 12+ YRS VACCINE Unknown Completed [facility] SARS-COV-2 COVID-19 VACCINE 12 YRS+, BIVALENT 0.5ML, IM, (MODERNA-BLUE TOP) Unknown Completed [facility] Pneumococcal Polysaccharide, PPSV23 (PNEUMOVAX) Unknown Completed [facility] SARS-COV-2 COVID-19 MODERNA 12+ YRS VACCINE Unknown Completed [facility] SARS-COV-2 COVID-19 VACCINE 12 YRS+, BIVALENT 0.5ML, IM, (MODERNA-BLUE TOP) Unknown Completed [facility] Pneumococcal Polysaccharide, PPSV23 (PNEUMOVAX) Unknown Completed [facility] SARS-COV-2 COVID-19 MODERNA 12+ YRS VACCINE Unknown Completed [facility] SARS-COV-2 COVID-19 VACCINE 12 YRS+, BIVALENT 0.5ML, IM, (MODERNA-BLUE TOP) Unknown Completed [facility] Pneumococcal Polysaccharide, PPSV23 (PNEUMOVAX) Unknown Completed [facility] SARS-COV-2 COVID-19 MODERNA 12+ YRS VACCINE Unknown Completed [facility] SARS-COV-2 COVID-19 VACCINE 12 YRS+, BIVALENT 0.5ML, IM, (MODERNA-BLUE TOP) Unknown Completed [facility] Pneumococcal Polysaccharide, PPSV23 (PNEUMOVAX) Unknown Completed [facility] SARS-COV-2 COVID-19 MODERNA 12+ YRS VACCINE Unknown Completed [facility] SARS-COV-2 COVID-19 VACCINE 12 YRS+, BIVALENT 0.5ML, IM, (MODERNA-BLUE TOP) Unknown Completed [facility] Pneumococcal Polysaccharide, PPSV23 (PNEUMOVAX) Unknown Completed [facility] SARS-COV-2 COVID-19 MODERNA 12+ YRS VACCINE Unknown Completed [facility] SARS-COV-2 COVID-19 VACCINE 12 YRS+, BIVALENT 0.5ML, IM, (MODERNA-BLUE TOP) Unknown Completed [facility] Pneumococcal Polysaccharide, PPSV23 (PNEUMOVAX) Unknown Completed [facility] SARS-COV-2 COVID-19 MODERNA 12+ YRS VACCINE Unknown Completed [facility] SARS-COV-2 COVID-19 VACCINE 12 YRS+, BIVALENT 0.5ML, IM, (MODERNA-BLUE TOP) Unknown Completed [facility] Pneumococcal Polysaccharide, PPSV23 (PNEUMOVAX) Unknown Completed [facility] SARS-COV-2 COVID-19 MODERNA 12+ YRS VACCINE Unknown Completed [facility] SARS-COV-2 COVID-19 VACCINE 12 YRS+, BIVALENT 0.5ML, IM, (MODERNA-BLUE TOP) Unknown Completed [facility] Pneumococcal Polysaccharide, PPSV23 (PNEUMOVAX) Unknown Completed [facility] SARS-COV-2 COVID-19 MODERNA 12+ YRS VACCINE Unknown Completed [facility] SARS-COV-2 COVID-19 VACCINE 12 YRS+, BIVALENT 0.5ML, IM, (MODERNA-BLUE TOP) Unknown Completed [facility] Pneumococcal Polysaccharide, PPSV23 (PNEUMOVAX) Unknown Completed [facility] SARS-COV-2 COVID-19 MODERNA 12+ YRS VACCINE Unknown Completed [facility] SARS-COV-2 COVID-19 VACCINE 12 YRS+, BIVALENT 0.5ML, IM, (MODERNA-BLUE TOP) Unknown Completed [facility] Pneumococcal Polysaccharide, PPSV23 (PNEUMOVAX) Unknown Completed [facility] SARS-COV-2 COVID-19 MODERNA 12+ YRS VACCINE Unknown Completed [facility] SARS-COV-2 COVID-19 VACCINE 12 YRS+, BIVALENT 0.5ML, IM, (MODERNA-BLUE TOP) Unknown Completed [facility] Pneumococcal Polysaccharide, PPSV23 (PNEUMOVAX) Unknown Completed [facility] SARS-COV-2 COVID-19 MODERNA 12+ YRS VACCINE Unknown Completed [facility] SARS-COV-2 COVID-19 VACCINE 12 YRS+, BIVALENT 0.5ML, IM, (MODERNA-BLUE TOP) Unknown Completed [facility] Pneumococcal Polysaccharide, PPSV23 (PNEUMOVAX) Unknown Completed [facility] SARS-COV-2 COVID-19 MODERNA 12+ YRS VACCINE Unknown Completed [facility] SARS-COV-2 COVID-19 VACCINE 12 YRS+, BIVALENT 0.5ML, IM, (MODERNA-BLUE TOP) Unknown Completed [facility] [facility] Pneumococcal Polysaccharide, PPSV23 (PNEUMOVAX) Unknown Completed [facility] SARS-COV-2 COVID-19 MODERNA 12+ YRS VACCINE Unknown Completed [facility] SARS-COV-2 COVID-19 VACCINE 12 YRS+, BIVALENT 0.5ML, IM, (MODERNA-BLUE TOP) Unknown Completed [facility] Pneumococcal Polysaccharide, PPSV23 (PNEUMOVAX) Unknown Completed [facility] SARS-COV-2 COVID-19 VACCINE - (MODERNA) Unknown Completed [facility] SARS-COV-2 COVID-19 MODERNA 0.25ML BOOSTER VACCINE Unknown Completed [facility] SARS-COV-2 COVID-19 VACCINE 12 YRS+, BIVALENT 0.5ML, IM, (MODERNA-BLUE TOP) Unknown Completed [facility] Vital Signs Vital Name Observation Time Observation Value Comments S ource Systolic blood pressure 2023-11-29 18:13:00 112 mm[Hg] [facility] Diastolic blood pressure 2023-11-29 18:13:00 56 mm[Hg] [facility] Heart rate 2023-11-29 18:13:00 98 /min [facility] Body temperature 2023-11-29 18:13:00 36.78 Celeste [facility] Systolic blood pressure 2023-06-15 17:06:00 113 mm[Hg] [facility] Diastolic blood pressure 2023-06-15 17:06:00 79 mm[Hg] [facility] Heart rate 2023-06-15 17:06:00 76 /min [facility] Body temperature 2023-06-15 17:06:00 36.56 Celeste [facility] Oxygen saturation in Arterial blood by Pulse oximetry 2023-06-15 17:06:00 96 /min [facility] Systolic blood pressure 2023-03-23 00:44:00 127 mm[Hg] [facility] Diastolic blood pressure 2023-03-23 00:44:00 73 mm[Hg] [facility] Heart rate 2023-03-23 00:44:00 77 /min [facility] temperature 2023-03-23 00:44:00 36.11 Celeste [facility] Respiratory rate 2023-03-23 00:44:00 18 /min [facility] Oxygen saturation in Arterial blood by Pulse oximetry 2023-03-23 00:44:00 99 /min [facility] Body weight 2023-03-22 22:27:00 145 kg [facility] BMI 2023-03-22 22:27:00 44.58 kg/m2 [facility] Body height 2023-03-17 14:44:00 180.3 cm [facility] HEIGHT 2023-02-27 07:42:00 180.3 cm WEIGHT 2023-02-27 07:42:00 150.3 kg WEIGHT 2023-02-26 11:57:00 150 kg WEIGHT 2023-02-26 06:00:00 152 kg WEIGHT 2023-02-25 08:26:00 149.6 kg HEIGHT 2023-02-25 08:26:00 180.3 cm WEIGHT 2023-02-25 05:00:00 143.7 kg HEIGHT 2023-02-27 07:42:00 180.3 cm WEIGHT 2023-02-27 07:42:00 150.3 kg WEIGHT 2023-02-26 11:57:00 150 kg WEIGHT 2023-02-26 06:00:00 152 kg WEIGHT 2023-02-25 08:26:00 149.6 kg HEIGHT 2023-02-25 08:26:00 180.3 cm WEIGHT 2023-02-25 05:00:00 143.7 kg WEIGHT 2023-02-17 06:00:00 146 kg WEIGHT 2023-02-14 07:00:00 147.3 kg WEIGHT 2023-02-12 05:42:00 144.3 kg HEIGHT 2023-02-11 20:00:00 180.3 cm WEIGHT 2023-02-11 20:00:00 146.7 kg WEIGHT 2023-02-17 06:00:00 146 kg WEIGHT 2023-02-14 07:00:00 147.3 kg WEIGHT 2023-02-12 05:42:00 144.3 kg HEIGHT 2023-02-11 20:00:00 180.3 cm WEIGHT 2023-02-11 20:00:00 146.7 kg Body height 2023-01-21 14:52:00 180.3 cm [facility] Body weight 2023-01-21 14:52:00 147.646 kg [facility] BMI 2023-01-21 14:52:00 45.40 kg/m2 [facility] Systolic blood pressure 2023-01-12 14:11:00 138 mm[Hg] [facility] Diastolic blood pressure 2023-01-12 14:11:00 72 mm[Hg] [facility] Body temperature 2023-01-12 14:11:00 36.56 Celeste [facility] Body weight 2023-01-12 14:11:00 146.965 kg [facility] BMI 2023-01-12 14:11:00 45.19 kg/m2 [facility] Systolic blood pressure 2022-11-17 15:46:00 93 mm[Hg] [facility] Diastolic blood pressure 2022-11-17 15:46:00 54 mm[Hg] [facility] Heart rate 2022-11-17 15:37:00 72 /min [facility] Body temperature 2022-11-17 15:37:00 36.44 Celeste [facility] WEIGHT 2022-11-11 12:26:00 142.1 kg WEIGHT 2022-11-11 08:31:00 144.8 kg WEIGHT 2022-11-11 03:37:00 144.834 kg WEIGHT 2022-11-10 04:00:00 140.8 kg WEIGHT 2022-11-09 11:30:00 145.7 kg WEIGHT 2022-11-09 05:39:00 149.2 kg WEIGHT 2022-11-08 14:20:00 146.8 kg WEIGHT 2022-11-08 05:48:00 141.4 kg HEIGHT 2022-11-07 08:00:00 180.3 cm WEIGHT 2022-11-07 05:39:00 141.7 kg WEIGHT 2022-11-07 02:00:00 141.7 kg WEIGHT 2022-11-11 12:26:00 142.1 kg WEIGHT 2022-11-11 08:31:00 144.8 kg WEIGHT 2022-11-11 03:37:00 144.834 kg WEIGHT 2022-11-10 04:00:00 140.8 kg WEIGHT 2022-11-09 11:30:00 145.7 kg WEIGHT 2022-11-09 05:39:00 149.2 kg WEIGHT 2022-11-08 14:20:00 146.8 kg WEIGHT 2022-11-08 05:48:00 141.4 kg HEIGHT 2022-11-07 08:00:00 180.3 cm WEIGHT 2022-11-07 05:39:00 141.7 kg WEIGHT 2022-11-07 02:00:00 141.7 kg Heart rate 2022-10-01 20:46:00 78 /min [facility] Body height 2022-10-01 20:46:00 180.3 cm [facility] Body weight 2022-10-01 20:46:00 150.367 kg [facility] BMI 2022-10-01 20:46:00 46.23 kg/m2 [facility] Oxygen saturation in Arterial blood by Pulse oximetry 2022-10-01 20:46:00 98 /min [facility] Systolic blood pressure 2022-08-31 21:20:00 119 mm[Hg] [facility] Diastolic blood pressure 2022-08-31 21:20:00 77 mm[Hg] [facility] Heart rate 2022-08-31 21:20:00 91 /min [facility] Body height 2022-08-31 21:20:00 180.3 cm [facility] Body weight 2022-08-31 21:20:00 149.097 kg [facility] BMI 2022-08-31 21:20:00 45.84 kg/m2 [facility] Systolic blood pressure 2022-08-13 16:51:00 118 mm[Hg] [facility] Diastolic blood pressure 2022-08-13 16:51:00 53 mm[Hg] [facility] Heart rate 2022-08-13 16:51:00 78 /min [facility] 2022-08-13 16:51:00 180.3 cm [facility] Body weight 2022-08-13 16:51:00 144.244 kg [facility] BMI 2022-08-13 16:51:00 44.35 kg/m2 [facility] Oxygen saturation in Arterial blood by Pulse oximetry 2022-08-13 16:51:00 98 /min [facility] Systolic blood pressure 2022-07-27 20:01:00 89 mm[Hg] [facility] Diastolic blood pressure 2022-07-27 20:01:00 73 mm[Hg] [facility] Heart rate 2022-07-27 20:01:00 67 /min [facility] Body height 2022-07-27 20:01:00 180.3 cm [facility] Body weight 2022-07-27 20:01:00 144.244 kg [facility] BMI 2022-07-27 20:01:00 44.35 kg/m2 [facility] Oxygen saturation in Arterial blood by Pulse oximetry 2022-07-27 20:01:00 97 /min [facility] Systolic blood pressure 2022-06-25 15:36:00 115 mm[Hg] [facility] Diastolic blood pressure 2022-06-25 15:36:00 84 mm[Hg] [facility] Heart rate 2022-06-25 15:36:00 79 /min [facility] Body temperature 2022-06-25 15:36:00 37.06 Celeste [facility] Respiratory rate 2022-06-25 15:36:00 19 /min [facility] Body height 2022-06-25 15:36:00 180.3 cm [facility] weight 2022-06-25 15:36:00 146.603 kg [facility] BMI 2022-06-25 15:36:00 45.08 kg/m2 [facility] Oxygen saturation in Arterial blood by Pulse oximetry 2022-06-25 15:36:00 97 /min [facility] Systolic blood pressure 2022-05-12 18:22:00 102 mm[Hg] [facility] Diastolic blood pressure 2022-05-12 18:22:00 68 mm[Hg] [facility] Heart rate 2022-05-12 18:22:00 73 /min [facility] Body temperature 2022-05-12 18:22:00 37.17 Celeste [facility] Body weight 2022-05-12 18:22:00 145.151 kg [facility] BMI 2022-05-12 18:22:00 44.63 kg/m2 [facility] Procedures Procedure Date / Time Performed Performing Clinician Source EXTERNAL PROVIDER RECORDS 2023-09-08 06:01:00 Doctor N[place]assigned, [place] [facility] REFERRAL- REQUEST/RESPONSE 2023-08-29 06:01:00 Doctor Unassigned, [place] [facility] - OTHER 2023-07-18 06:01:00 Doctor Sonali william, [place] [facility] SCANNED LAB RESULTS 2023-07-14 06:01:00 Doctor Sonali william, [place] [facility] LIANG MULTI LEVEL - BY VASCULAR LAB 2023-07-12 16:48:00 Alvarez Martinez [facility] CONSENT/REFUSAL FOR DIAGNOSIS AND TREATMENT 2023-07-12 15:31:12 Doctor Unassigned, [place] [facility] SCANNED LAB RESULTS 2023-06-15 06:01:00 Doctor Sonali william, [place] [facility] EXTERNAL PROVIDER RECORDS 2023-05-19 06:01:00 Doctor Unassigned, [place] [facility] EXTERNAL PROVIDER RECORDS 2023-04-28 05:01:00 Doctor Unassigned, [place] [facility] - OTHER 2023-04-20 05:01:00 Doctor Sonali william, [place] [facility] - OTHER 2023-04-18 05:01:00 Doctor Sonali william, [place] [facility] EXTERNAL PROVIDER RECORDS 2023-04-12 05:01:00 Doctor Unassigned, [place] [facility] [id number] 2023-03-24 00:00:00 [facility] MAGNESIUM 2023-03-22 10:51:00 Dejuan Lee [facility] BASIC METABOLIC PANEL (NA, K, CL, CO2, GLUCOSE, BUN, CREATININE, CA) 2023-03-22 10:51:00 Dejuan Lee [facility] CBC WITH DIFF 2023-03-22 10:51:00 Dejuan Lee [facility] PROTHROMBIN TIME / INR 2023-03-22 10:51:00 Marian Leann [facility] DUPLEX VENOUS LEGS BILATERAL - BY VASCULAR LAB 2023-03-20 16:04:00 Marian [facility] PROTHROMBIN TIME / INR 2023-03-17 19:56:00 Leann Fonseca [facility] PHOSPHORUS 2023-03-17 11:35:00 [facility] MAGNESIUM 2023-03-17 11:35:00 [facility] BASIC METABOLIC PANEL (NA, K, CL, CO2, GLUCOSE, BUN, CREATININE, CA) 2023-03-17 11:35:00 Thea Dmitriy [facility] EXTERNAL PROVIDER RECORDS 2023-03-17 05:01:00 Doctor Unassigned, [place] [facility] BASIC METABOLIC PANEL (NA, K, CL, CO2, GLUCOSE, BUN, CREATININE, CA) 2023-03-16 15:01:00 Dmitriy Sidhu [facility] PHOSPHORUS 2023-03-16 14:25:00 [facility] MAGNESIUM 2023-03-16 14:25:00 [facility] POCT GLUCOSE (AUTOMATED) 2023-03-16 13:27:00 Susan Ramirez [facility] IRON PANEL 2023-03-15 20:20:00 [facility] ACTIVATED PARTIAL THRMPLAS MATHEW 2023-03-15 20:20:00 Sivan [facility] HEPATITIS B SURFACE ANTIBODY 2023-03-15 20:20:00 Lina [facility] HEPATITIS B SURFACE ANTIGEN 2023-03-15 20:20:00 Lina [facility] AC PANEL 20 + LACTIC ACID 2023-03-15 14:06:00 Alexandre Whittensan [facility] TRANSTHORACIC ECHO (TTE) COMPLETE W/ CONTRAST 2023-03-15 13:51:45 Thea [facility] PHOSPHORUS 2023-03-15 07:33:00 Thea [facility] MAGNESIUM 2023-03-15 07:33:00 Thea [facility] FERRITIN SERUM 2023-03-15 07:33:00 Thea [facility] VITAMIN B12, LEVEL 2023-03-15 07:33:00 [facility] F[facility] 2023-03-15 07:33:00 Thea [facility] BASIC METABOLIC PANEL (NA, K, CL, CO2, GLUCOSE, BUN, CREATININE, CA) 2023-03-15 07:33:00 Thea [facility] CBC WITH DIFF 2023-03-15 07:33:00 Thea [facility] PROTHROMBIN TIME / INR 2023-03-15 07:33:00 Thea [facility] ACTIVATED PARTIAL THRMPLAS MATHEW 2023-03-15 07:33:00 Sivan [facility] ACTIVATED PARTIAL THRMPLAS MATHEW 2023-03-14 22:37:00 Sivan [facility] DUPLEX VENOUS LEGS BILATERAL - BY VASCULAR LAB 2023-03-14 16:23:51 Sivan [facility] BASIC METABOLIC PANEL (NA, K, CL, CO2, GLUCOSE, BUN, CREATININE, CA) 2023-03-14 15:51:00 Thea [facility] CBC WITH DIFF 2023-03-14 15:51:00 Thea [facility] GLYCOSYLATED HEMOGLOBIN (A1C) 2023-03-14 15:51:00 Thea [facility] ACTIVATED PARTIAL THRMPLAS AMTHEW 2023-03-14 15:51:00 Sivan [facility] PROTHROMBIN TIME / INR 2023-03-14 08:46:00 Thea [facility] ACTIVATED PARTIAL THRMPLAS MATHEW 2023-03-14 08:46:00 Sivan [facility] CBC WITH DIFF 2023-03-14 05:48:00 Thea [facility] MAGNESIUM 2023-03-13 22:00:00 [facility]OLIC PANEL (NA, K, CL, CO2, GLUCOSE, BUN, CREATININE, CA) 2023-03-13 22:00:00 Thea [facility] CBC WITH DIFF 2023-03-13 22:00:00 Thea [facility] ACTIVATED PARTIAL THRMPLAS MATHEW 2023-03-13 22:00:00 Thea [facility] HB ECG ROUTINE & RHYTHM STRIP 2023-03-13 13:09:21 Thea [facility] PROTHROMBIN TIME / INR 2023-03-13 10:59:00 Qian Finnegan [facility] FIBRINOGEN 2023-03-13 10:59:00 Sivan [facility] AC PANEL 20 + LACTIC ACID 2023-03-13 08:26:[address] [facility] PHOSPHORUS 2023-03-13 08:25:00 Fantasma Claros [facility] MAGNESIUM 2023-03-13 08:25:00 Fantasma Claros [facility] BASIC METABOLIC PANEL (NA, K, CL, CO2, GLUCOSE, BUN, CREATININE, CA) 2023-03-13 08:25:00 Marjorie Claros [facility] TROPONIN I 2023-03-13 08:24:00 Eber Finnegan [facility] CBC WITH DIFF 2023-03-13 08:24:00 Sivan [facility] HB ECG ROUTINE & RHYTHM STRIP 2023-03-13 08:18:27 Sivan [facility] XR CHEST 1 VW 2023-03-12 23:46:00 Melanie Wise [facility] PROTHROMBIN TIME / INR 2023-03-12 23:20:00 Qian Finnegan [facility] TROPONIN I 2023-03-12 23:17:00 Felipe [facility] CBC WITH DIFF 2023-03-12 23:17:00 Sivan [facility] PROTHROMBIN TIME / INR 2023-03-12 16:15:00 Qian Finnegan [facility] TROPONIN I 2023-03-12 16:11:00 Felipe [facility] CBC WITH DIFF 2023-03-12 16:11:[address] [facility] PROTHROMBIN TIME / INR 2023-03-12 10:46:00 Qian Finnegan [facility] CT ANGIOGRAM ABDOMEN/PELVIS 2023-03-12 10:20:45 Felipe [facility] ABORH CONFIRMATION (LAB ONLY) 2023-03-12 08:10:00 Susan Ramirez [facility] XR CHEST 1 VW 2023-03-12 07:58:44 Sivan [facility] CT ABDOMEN PELVIS WO CONTRAST 2023-03-12 07:55:04 Felipe [facility] HB ABO GROUPING 2023-03-12 07:16:[address] [facility] MAGNESIUM 2023-03-12 06:55:00 [facility] 2023-03-12 06:55:00 [facility] HEPATIC FUNCTION PANEL (52189) (ALB,T.PRO,BILI T,BU/BC,ALT,AST,ALK PHOS) 2023-03-12 06:55:00 [facility] BASIC METABOLIC PANEL (NA, K, CL, CO2, GLUCOSE, BUN, CREATININE, CA) 2023-03-12 06:55:00 Eber Finnegan [facility] LIPID PANEL (81689)(TOTAL CHOLESTEROL, TRIGLYCERIDES, HDL) 2023-03-12 06:55:00 Eber Finnegan [facility] CBC WITH DIFF 2023-03-12 06:55:00 Eber Finnegan [facility] PROTHROMBIN TIME / INR 2023-03-12 06:55:00 Qian Finnegan [facility] FIBRINOGEN 2023-03-12 06:55:00 [facility] AC PANEL 20 + LACTIC ACID 2023-03-12 06:55:00 Sivan [facility] MRSA / MSSA SCREEN BY PCR, MISAEL 2023-03-12 06:55:[address] [facility] HB ECG ROUTINE & RHYTHM STRIP 2023-03-12 06:46:32 Sivan [facility] EXTERNAL PROVIDER RECORDS 2023-03-02 05:01:00 Doctor Unassigned, [place] [facility] EXTERNAL PROVIDER RECORDS 2023-02-24 05:01:00 Doctor Unassigned, [place] [facility] REFERRAL- REQUEST/RESPONSE 2023-02-07 05:01:00 Doctor Unassigned, [place] [facility] REFERRAL- REQUEST/RESPONSE 2022-11-25 05:01:00 Doctor Unassigned, [place] [facility] PATIENT FINANCIAL POLICY 2022-10-01 19:29:42 Doctor Unassigned, [place] [facility] REFERRAL- REQUEST/RESPONSE 2022-09-21 05:01:00 Doctor Unassigned, [place] [facility] REFERRAL- REQUEST/RESPONSE 2022-09-10 06:01:00 Doctor Unassigned, [place] [facility] CONSENT/REFUSAL FOR DIAGNOSIS AND TREATMENT 2022-08-31 21:15:08 Doctor Unassigned, [place] [facility] REFERRAL- REQUEST/RESPONSE 2022-08-25 06:01:00 Doctor Unassigned, [place] [facility] REFERRAL- REQUEST/RESPONSE 2022-08-01 06:01:00 Doctor Unassigned, [place] [facility] REFERRAL- REQUEST/RESPONSE 2022-06-25 06:01:00 Doctor Unassigned, [place] [facility] SARS-COV-2 COVID-19 VACCINE 12 YRS+, BIVALENT 0.5ML, IM (MODERNA BOOSTER) 2022-06-21 14:34:00 Doctor Unassigned, [place] [facility] MEDICAL RELEASE/CLEARANCE FORMS 2022-06-15 06:01:00 Doctor Unassigned, [place] [facility] REFERRAL- REQUEST/RESPONSE 2022-05-04 05:01:00 Doctor Unassigned, [place] [facility] AUTHORIZATION FOR RELEASE OF PHI 2022-03-05 05:01:00 Doctor Unassigned, [place] [facility] REFERRAL- REQUEST/RESPONSE 2022-02-11 05:01:00 Doctor Unassigned, [place] [facility] [id number] 2021-11-17 00:00:00 MONCHO.01 [facility] [id number] 2021-11-17 00:00:00 MARCOS.05 [facility] [id number] 2021-10-10 00:00:00 MARCOS.05 [facility] [id number] 2021-10-10 00:00:00 MARCOS.05 [facility] [id number] 2021-04-18 00:00:00 [facility] [id number] 2021-04-18 00:00:00 [facility] [id number] 2021-04-18 00:00:00 [facility] [id number] 2021-04-18 00:00:00 [facility] [id number] 2021-04-18 00:00[facility]00 [facility] [id number] 2021-04-16 00:00:00 DADOL [facility] [id number] 2021-04-13 00:00:00 DADOL [facility] [id number] 2021-04-11 00:00:00 DADOL [facility] [id number] 2021-04-09 00:00:00 DADOL [facility] [id number] 2021-04-09 00:00:00 DADOL [facility] [id number] 2021-04-07 00:00:00 CORZHENG.03 [facility] [id number] 2021-04-07 00:00:00 BROOKLYNN [facility] [id number] 2021-04-04 00:00:00 [facility] [id number] 2021-04-04 00:00:00 [facility] [id number] 2021-04-04 00:00:00 [facility] [id number] 2021-04-04 00:00:00 [facility] [id number] 2021-04-04 00:00:00 [facility] [id number] 2021-04-04 00:00:00 [facility] [id number] 2021-04-04 00:00:00 [facility] [id number] 2021-04-04 00:00:00 [facility] Encounter Stat Only 2020-01-16 00:00:00 [facility] Carpal tunnel release, left 2020-01-08 00:00:[address] [facility] Minor level new patient office visit 2019-12-17 00:00:[address] [facility] X-ray of finger, two or more views 2019-12-17 00:00:00 [facility] Encounters Start Date/Time End Date/Time Encounter Type Admission Type Attending [facility] Care Facility Care Department Encounter ID Source 2023-03-21 11:39:06 Outpatient 3 LARA CUELLAR [facility] [place] [id number] [facility] 2023-02-26 20:00:27 Inpatient UR DIEGO [facility] [id number] [facility] 2023-02-25 10:21:25 Inpatient UR STACY FARHAN [facility] [id number] [facility] 2023-02-25 10:02:04 Inpatient UR SLEH SLE [id number] [facility] 2023-02-13 12:10:46 Inpatient ER MARGARITA CRUZ [facility] [id number] [facility] 2023-02-12 08:26:18 Inpatient ER [facility] [id number] [facility] 2022-11-07 02:13:13 Inpatient ER GALI FERNANDEZ [facility] Medical ICU [id number] [facility] 2021-11-15 16:35:00 Inpatient Jose Mathias [facility].02 [id number] [facility] 2021-10-04 15:45:09 Emergency X JENARO [facility] [id number] [facility] 2021-08-06 13:01:32 Outpatient 3 [id number] ENCPL REF [id number] [facility] [place] [facility] 2021-08-06 12:57:21 Outpatient 3 LARA CUELLAR E[place] [id number] [facility] [place] [facility] 2021-08-06 12:56:17 Outpatient 3 LARA CUELLAR E[place] [place] [id number] [facility] [place] [facility] 2021-08-06 12:54:31 Outpatient 3 LARA CUELLAR E[place] [id number] [facility] [place] [facility] 2021-08-06 12:53:45 Outpatient 3 LARA CUELLAR E[place] [id number] [facility] [place] [facility] 2021-08-06 12:53:08 Outpatient 3 [id number] ENCPL REF [id number] [facility] [place] [facility] 2021-08-06 12:52:55 Outpatient 3 [id number] ENCPL REF [id number] [facility] [place] [facility] 2021-05-09 05:30:28 Outpatient R LEANN [facility] [id number] [facility] 2021-04-16 19:38:00 Inpatient 3 LARA CUELLAR ENCPL PUL [id number] [facility] [place] [facility] 2021-04-03 18:19:00 Inpatient 3 LARA CUELLAR ENC[place] TANK [id number] [facility] [place] [facility] 2024-05-15 00:00:00 2024-05-15 11:06:14 Refill Peterson [facility] EMANUEL?[facility] [id number] [facility] 2024-05-01 00:00:00 2024-05-01 16:51:27 Telephone Ira Ramirez [facility] EMANUEL?[facility] [id number] [facility] 2024-04-30 00:00:00 2024-04-30 14:59:05 Refill Ashley [facility] EMANUEL?[facility] [id number] [facility] 2024-04-11 00:00:00 2024-04-11 13:56:55 Refill [facility] EMANUEL?[facility] [id number] [id number] [id number] [id number] [facility] 2024-03-27 00:00:00 2024-03-27 11:44:19 [facility] CASTELLANOS?[facility] [id number] [id number] [id number] [id number] [facility] 2024-03-19 00:00:00 2024-03-21 08:16:24 Refill Ira Ramirez [facility] EMANUEL?[facility] [id number] 350.1.13.10 4.2.7.2.686 [id number] 044 [id number] [facility] 2024-03-03 00:00:00 2024-03-05 13:03:29 [facility] 1.2.840.114 350.1.13.10 4.2.7.2.686 [id number] 044 [id number] [facility] 2024-02-28 15:30:00 2024-02-28 15:30:00 Outpatient R PETERSON YE [facility] [id number] [facility] 2024-02-20 00:00:00 2024-02-20 13:05:11 Telephone Ira Ramirez [facility] EMANUEL?[facility] 1..840.114 350.1.13.10 4.2.7.2.686 [id number] 044 [id number] [facility] 2024-02-17 00:00:00 2024-02-17 14:32:09 Telephone Ira Ramirez [facility]UEL[facility] 1..840.114 350.1.13.10 4.2.7.2.686 [id number] 044 [id number] [facility] 2024-02-14 15:45:00 2024-02-14 16:15:00 Telemedici ne Visit Ashley [facility] EMANUEL?[facility] 1.2.840.114 350.1.13.10 4.2.7.2.686 [id number] 044 [id number] [facility] 2024-02-14 15:45:00 2024-02-14 15:45:00 Outpatient R IRA RAMIREZ [facility] [id number] [facility] 2024-02-13 00:00:00 2024-02-13 17:17:35 Telephone Kristachongshayy Ira [facility] EMANUEL?[facility] 1.2.840.114 350.1.13.10 4.2.7.2.686 [id number] 044 [id number] [facility] 2024-02-12 00:00:00 2024-02-13 10:16:00 Refill Ira Ramirez [facility] EMANUEL?DI[facility] 1.2.840.114 350.1.13.10 4.2.7.2.686 [id number] 044 [id number] [facility] 2024-01-26 14:30:00 2024-01-26 14:30:00 Outpatient R JUANCARLOS LCOUD [facility] [id number] [facility] 2024-01-03 00:00:00 2024-01-04 08:57:22 [facility] 1.2840.114 350.1.13.10 4.2.7.2.686 [id number] 044 [id number] [facility] 2023-12-20 00:00:00 2023-12-21 09:04:47 [facility] 1.2840.114 350.1.13.10 4.2.7.2.686 [id number] 044 [id number] [facility] 2023-12-20 00:00:00 2023-12-20 10:23:56 Telephone Ira Ramirez [facility] 1.2840.114 350.1.13.10 4.2.7.2.686 [id number] 044 [id number] [facility] 2023-12-19 00:00:00 2023-12-19 16:41:53 Telephone Ira Ramirez [facility] EMANUEL?[facility] 1.2840.114 350.1.13.10 4.2.7.2.686 [id number] 044 [id number] [facility] 2023-12-13 00:00:00 2023-12-13 16:24:56 Telephone [facility] 1.2.840.114 350.1.13.10 4.2.7.2.686 [id number] 044 [id number] [facility] 2023-12-12 00:00:00 2023-12-13 08:17:07 Telephone [facility] 1.2840.114 350.1.13.10 4.2.7.2.686 [id number] 044 [id number] [facility] 2023-12-12 00:00:00 2023-12-12 16:51:34 Telephone [facility] 1.2840.114 350.1.13.10 4.2.7.2.686 [id number] 044 [id number] [facility] 2023-12-12 00:00:00 2023-12-12 15:40:03 Telephone [facility] 1.2840.114 350.1.13.10 4.2.7.2.686 [id number] 044 [id number] [facility] 2023-12-09 00:00:00 2023-12-12 11:46:51 Telephone [facility] 1.2840.114 350.1.13.10 4.2.7.2.686 [id number] 044 [id number] [facility] 2023-12-11 00:00:00 2023-12-12 08:58:56 Refill Ira aRmirez [facility] EMANUEL?[facility] 1.2840.114 350.1.13.10 4.2.7.2.686 [id number] 044 [id number] [facility] 2023-12-06 00:00:00 2023-12-06 14:50:39 Refill Ashley [facility] EMANUEL?[facility] 1.2.840.114 350.1.13.10 4.2.7.2.686 [id number] 044 [id number] [facility] 2023-12-01 00:00:00 2023-12-01 11:56:36 Telephone Ashley [facility] 1.2840.114 350.1.13.10 4.2.7.2.686 [id number] 044 [id number] [facility] 2023-11-29 14:00:00 2023-11-29 14:15:00 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 1.2840.114 350.1.13.10 4.2.7.2.686 [id number] [facility] 2023-11-29 14:00:00 2023-11-29 14:00:00 Outpatient R KRISTALYNN IRA [facility] [id number] [facility] 2023-11-29 13:15:00 2023-11-29 13:45:00 Office Visit VinayakIra marrufo [facility] EMANUEL?[facility] 1.2840.114 350.1.13.10 4.2.7.2.686 [id number] 044 [id number] [facility] 2023-11-27 00:00:00 2023-11-28 09:23:13 Darrell Ashley [facility] EMANUEL?[facility] 1.2840.114 350.1.13.10 4.2.7.2.686 [id number] 044 [id number] [facility] 2023-11-19 00:00:00 2023-11-19 00:00:00 Darrell Ramirez [facility] EMANUEL?[facility] 1.2.840.114 350.1.13.10 4.2.7.2.686 [id number] 044 [id number] [facility] 2023-11-14 00:00:00 2023-11-15 06:50:21 Darrell Ramirez [facility] EMANUEL?[facility] 1.2.840.114 350.1.13.10 4.2.7.2.686 [id number] 044 [id number] [facility] 2023-11-14 00:00:00 2023-11-14 10:05:17 Telephone [facility] 1.2.840.114 350.1.13.10 4.2.7.2.686 [id number] 044 [id number] [facility] 2023-11-11 00:00:00 2023-11-11 00:00:00 Darrell Ramirez [facility] EMANUEL?[facility] 1.2.840.114 350.1.13.10 4.2.7.2.686 [id number] 044 [id number] [facility] 2023-11-08 16:00:00 2023-11-08 17:28:15 Outpatient R PETERSON CYNDEEKARLA [facility] [id number] [facility] 2023-11-08 16:00:00 2023-11-08 17:28:15 [facility] 1.2.840.114 350.1.13.10 4.2.7.2.686 [id number] 220 [id number] [facility] 2023-11-05 00:00:00 2023-11-05 00:00:00 Telephone Ira Ramirez [facility] EMANUEL?[facility] 1.2.840.114 350.1.13.10 4.2.7.2.686 [id number] 044 [id number] [facility] 2023-11-03 00:00:00 2023-11-03 00:00:00 Telephone Ira Ramirez [facility]UEL[facility] 1.2.840.114 350.1.13.10 4.2.7.2.686 [id number] 044 [id number] [facility] 2023-11-03 00:00:00 2023-11-03 00:00:00 Refill Ira Ramirez [facility] EMANUEL?[facility] 1.2.840.114 350.1.13.10 4.2.7.2.686 [id number] 044 [id number] [facility] 2023-11-03 00:00:00 2023-11-03 00:00:00 Telephone Ira Ramirez [facility]EL[facility] 1.2.840.114 350.1.13.10 4.2.7.2.686 [id number] 044 [id number] [facility] 2023-11-02 16:00:00 2023-11-02 16:30:00 Telemedici ne Visit Ira Ramirez [facility]UEL[facility] 1.2.840.114 350.1.13.10 4.2.7.2.686 [id number] 044 [id number] [facility] 2023-11-02 16:00:00 2023-11-02 16:00:00 Outpatient R KRISTALYNNIRA [facility] [id number] [facility] 2023-11-02 00:00:00 2023-11-02 00:00:00 Refill Drake Ley [facility] EMANUEL?[facility] MED[facility] OFF[facility] BUILDING 1.2840.114 350.1.13.10 4.2.7.2.686 [id number] 220 [id number] [facility] 2023-10-31 00:00:00 2023-10-31 00:00:00 Telephone Ira Ramirez [facility] EMANUEL?[facility] 1.2840.114 350.1.13.10 4.2.7.2.686 [id number] 044 [id number] [facility] 2023-10-31 00:00:00 2023-10-31 00:00:00 Refill Drake Ley [facility] EMANUEL?[facility] MED[facility] OFF[facility] BUILD[facility] 1.2840.114 350.1.13.10 4.2.7.2.686 [id number] 220 [id number] [facility] 2023-10-29 00:00:00 2023-10-29 00:00:00 Refill Ashley [facility] EMANUEL?[facility] OFF[facility] BUILD[facility] 1.840.114 350.1.13.10 4.2.7.2.686 [id number] 044 [id number] [facility] 2023-10-26 00:00:00 2023-10-26 00:00:00 Telephone Ashley [facility]UEL?[facility] 1.840.114 350.1.13.10 4.2.7.2.686 [id number] 044 [id number] [facility] 2023-10-22 00:00:00 2023-10-22 00:00:00 Refill Ashley [facility]UEL[facility] 1.2840.114 350.1.13.10 4.2.7.2.686 [id number] 044 [id number] [facility] 2023-10-15 00:00:00 2023-10-15 00:00:00 Refill Ira Ramirez [facility] EMANUEL?DIANE L[facility]ILD[facility] 1.2840.114 350.1.13.10 4.2.7.2.686 [id number] 044 [id number] [facility] 2023-10-12 00:00:00 2023-10-12 00:00:00 Telephone Ira Ramirez [facility] EMANUEL?DI[facility]ERS [facility] 1.2840.114 350.1.13.10 4.2.7.2.686 [id number] 044 [id number] [facility] 2023-09-22 05:17:00 2023-09-27 23:00:00 Outpatient Amita Raphael [facility] [id number] [address] [place] [address] 2023-09-26 00:00:00 2023-09-26 00:00:[address] [facility] MEDICAL OFFICE BUILDING 1.2840.114 350.1.13.10 4.2.7.2.686 [id number] [facility] 2023-09-26 00:00:00 2023-09-26 00:00:00 Telephone Ira Ramirez [facility] EMANUEL?DI[facility] 1.20.114 350.1.13.10 4.2.7.2.686 [id number] 044 [id number] [facility] 2023-09-23 00:00:00 2023-09-23 00:00:[address] [facility] MEDICAL OFFICE BUILDING 1.2840.114 350.1.13.10 4.2.7.2.686 [id number] [facility] 2023-09-17 00:00:00 2023-09-17 00:00:00 Refill Ira Ramirez [facility] EMANUEL?[facility] 1.2840.114 350.1.13.10 4.2.7.2.686 [id number] 044 [id number] [facility] 2023-09-08 00:00:00 2023-09-08 00:00:00 Telephone Ira Ramirez [facility]?DIANE [facility] MEDICAL OFFICE BUILDING 1.840.114 350.1.13.10 4.2.7.2.686 [id number] 044 [id number] [facility] 2023-09-08 00:00:00 2023-09-08 00:00:00 Orders Only Doctor Unassigned, [place] [facility] 1..114 350.1.13.10 4.2.7.2.686 [id number] [id number] [facility] 2023-09-08 00:00:00 2023-09-08 00:00:00 Telephone Ira Ramirez [facility] 1.84.114 350.1.13.10 4.2.7.2.686 [id number] 044 [id number] [facility] 2023-09-01 15:45:00 2023-09-01 15:45:00 Outpatient DANIEL BENITEZ MITCHELL [facility] [id number] [facility] 2023-09-01 00:00:00 2023-09-01 00:00:00 Telephone [facility] 1.84.114 350.1.13.10 4.2.7.2.686 [id number] 044 [id number] [facility] 2023-09-01 00:00:00 2023-09-01 00:00:00 Telephone [facility] 1.840.114 350.1.13.10 4.2.7.2.686 [id number] 044 [id number] [facility] 2023-08-30 00:00:00 2023-08-30 00:00:00 Telephone Ira Ramirez [facility] EMANUEL?DIANE L[facility]ILD[facility] 1.2840.114 350.1.13.10 4.2.7.2.686 [id number] 044 [id number] [facility] 2023-08-29 00:00:00 2023-08-29 00:00:00 Telephone Ira Ramirez [facility] EMANUEL?[facility] 1.2840.114 350.1.13.10 4.2.7.2.686 [id number] 044 [id number] [facility] 2023-08-29 00:00:00 2023-08-29 00:00:00 Telephone [facility] 1.2840.114 350.1.13.10 4.2.7.2.686 [id number] [facility] 2023-08-29 00:00:00 2023-08-29 00:00:00 Orders Only Doctor Unassigned, [place] [facility] 1.840.114 350.1.13.10 4.2.7.2.686 [id number] 009 [id number] [facility] 2023-08-27 00:00:00 2023-08-27 00:00:00 Refill Ira Ramirez [facility] EMANUEL?[facility] 1.2840.114 350.1.13.10 4.2.7.2.686 [id number] 044 [id number] [facility] 2023-08-24 00:00:00 2023-08-24 00:00:00 Telephone Ira Ramirez [facility] EMANUEL?[facility] 1.2840.114 350.1.13.10 4.2.7.2.686 [id number] 044 [id number] [facility] 2023-08-20 00:00:00 2023-08-20 00:00:00 Refill Ira Ramirez [facility] EMANUEL?[facility] 1.84.114 350.1.13.10 4.2.7.2.686 [id number] 044 [id number] [facility] 2023-08-18 15:00:00 2023-08-18 15:00:00 Outpatient DANIEL BENITEZ MITCHELL [facility] [id number] [facility] 2023-08-14 00:00:00 2023-08-14 00:00:00 Refill Ashley [facility]?DIANE [facility]ERS MEDICAL OFF[facility] BUILDING 1.84.114 350.1.13.10 4.2.7.2.686 [id number] 044 [id number] [facility] 2023-08-13 12:40:14 2023-08-13 23:59:00 Outpatient R DANIEL RANDOLPH MITCHELL [facility] [id number] [facility] 2023-08-13 12:40:14 2023-08-13 23:59:00 Hospital Encounter Daniel Randolph [facility] 1..114 350.1.13.10 4.2.7.2.686 [id number] [id number] [facility] 2023-08-12 00:00:00 2023-08-12 00:00:00 Telephone Ashley [facility] EMANUEL?DIANE BYESR MEDICAL OFFICE BUILDING 1.84.114 350.1.13.10 4.2.7.2.686 [id number] 044 [id number] [facility] 2023-08-12 00:00:00 2023-08-12 00:00:00 Telephone Ira Ramirez [facility] EMANUEL?[facility]ILD[facility] 1.84.114 350.1.13.10 4.2.7.2.686 [id number] 044 [id number] [facility] 2023-08-11 11:45:00 2023-08-11 11:45:00 Outpatient DANIEL BENITEZ MITCHELL [facility] [id number] [facility] 2023-07-29 00:00:00 2023-07-29 00:00:00 Telephone [facility] 1..840.114 350.1.13.10 4.2.7.2.686 [id number] 044 [id number] [facility] 2023-07-28 14:48:46 2023-07-28 23:59:00 Hospital Encounter Daniel Randolph [facility] 1..840.114 350.1.13.10 4.2.7.2.686 [id number] [facility] 2023-07-28 00:00:00 2023-07-28 23:59:00 Outpatient DANIEL BENITEZ MITCHELL [facility] [id number] [facility] 2023-07-26 00:00:00 2023-07-26 00:00:00 Outpatient DANIEL BENITEZ MITCHELL [facility] [id number] [facility] 2023-07-18 16:45:00 2023-07-18 17:00:00 Office Visit Daniel Randolph [facility] 1..840.114 350.1.13.10 4.2.7.2.686 [id number] [facility] 2023-07-18 16:45:00 2023-07-18 16:45:00 Outpatient DANIEL BENITEZ MITCHELL [facility] [id number] [facility] 2023-07-18 00:00:00 2023-07-18 00:00:00 Telephone Daniel Randolph [facility] 1..840.114 350.1.13.10 4.2.7.2.686 [id number] [facility] 2023-07-18 00:00:00 2023-07-18 00:00:00 Orders Only Doctor Unassigned, [place] [facility] 1.2.840.114 350.1.13.10 4.2.7.2.686 [id number] [id number] [facility] 2023-07-14 00:00:00 2023-07-14 00:00:00 Orders Only Doctor Unassigned, [place] [facility] 1.2840.114 350.1.13.10 4.2.7.2.686 [id number] 009 [id number] [facility] 2023-07-14 00:00:00 2023-07-14 00:00:00 Telephone Ashley [facility] MEDICAL OFFICE BUILDING 1..840.114 350.1.13.10 4.2.7.2.686 [id number] 044 [id number] [facility] 2023-07-14 00:00:00 2023-07-14 00:00:00 Telephone Vinayakshayy [facility] MED[facility] OFF[facility] BUILD[facility] 1.2.840.114 350.1.13.10 4.2.7.2.686 [id number] 044 [id number] [facility] 2023-07-13 00:00:00 2023-07-13 00:00:00 Telephone Daniel Randolph [facility] 1.2.840.114 350.1.13.10 4.2.7.2.686 [id number] [facility] 2023-07-12 09:31:26 2023-07-12 23:59:00 Outpatient R DANIEL RANDOLPH MITCHELL [facility] [id number] [facility] 2023-07-12 09:31:26 2023-07-12 23:59:00 Hospital Encounter Daniel Randolph [facility] 1.2.840.114 350.1.13.10 4.2.7.2.686 [id number] [facility] 2023-07-12 00:00:00 2023-07-12 00:00:00 Orders Only Doctor Unassigned, [place] [facility] 1.2840.114 350.1.13.10 4.2.7.2.686 [id number] [id number] [facility] 2023-07-06 00:00:00 2023-07-06 00:00:00 Refill Ira Ramirez [facility] 1.84.114 350.1.13.10 4.2.7.2.686 [id number] 044 [id number] [facility] 2023-06-27 11:00:00 2023-06-27 11:00:00 Outpatient R DANIEL RANDOLPH MITCHELL [facility] [id number] [facility] 2023-06-20 15:00:00 2023-06-20 15:00:00 Office Visit Daniel Randolph [facility] BUILD[facility] 1.84.114 350.1.13.10 4.2.7.2.686 [id number] [facility] 2023-06-20 15:00:00 2023-06-20 14:49:08 Outpatient R DANIEL RANDOLPH MITCHELL [facility] [id number] [facility] 2023-06-20 14:00:00 2023-06-20 14:00:00 Outpatient R CHRISTIANA POSADA [facility] [id number] [facility] 2023-06-17 00:00:00 2023-06-17 00:00:00 Refill Eduardo Morrison [facility] 1..840.114 350.1.13.10 4.2.7.2.686 [id number] [facility] 2023-06-16 11:15:00 2023-06-16 11:15:00 Outpatient R IRA RAMIREZ [facility] [id number] [facility] 2023-06-15 11:00:00 2023-06-15 11:52:30 Outpatient R IRA RAMIREZ [facility] [id number] [facility] 2023-06-15 11:00:00 2023-06-15 11:52:30 Office Visit Ira Ramirez [facility]?DIANE [facility]IS MEDICAL OFFICE BUILDING 1.2.840.114 350.1.13.10 4.2.7.2.686 [id number] 044 [id number] [facility] 2023-06-15 11:00:00 2023-06-15 11:00:00 Outpatient IRA AGUILAR [facility] [id number] [facility] 2023-06-15 00:00:00 2023-06-15 00:00:00 Telephone Ira Ramirez [facility] OFF[facility] BUILDING 1.2.840.114 350.1.13.10 4.2.7.2.686 [id number] 044 [id number] [facility] 2023-06-15 00:00:00 2023-06-15 00:00:00 Telephone Ira Ramirez [facility] 1.2840.114 350.1.13.10 4.2.7.2.686 [id number] 044 [id number] [facility] 2023-06-15 00:00:00 2023-06-15 00:00:00 Orders Only Doctor Unassigned, [place] [facility] 1.2840.114 350.1.13.10 4.2.7.2.686 [id number] [id number] [facility] 2023-06-13 09:43:33 2023-06-13 10:26:05 Outpatient SLAVA ROGERS [facility] [id number] [facility] 2023-06-10 00:00:00 2023-06-10 00:00:00 Nurse Triage [facility] 1.2840.114 350.1.13.10 4.2.7.2.686 [id number] [facility] 2023-06-10 00:00:00 2023-06-10 00:00:00 Nurse Triage [facility] 1.2840.114 350.1.13.10 4.2.7.2.686 [id number] [facility] 2023-06-10 00:00:00 2023-06-10 00:00:00 RefEduardo Cobb [facility] 1.84.114 350.1.13.10 4.2.7.2.686 [id number] [facility] 2023-06-06 08:30:00 2023-06-06 08:30:00 Outpatient R EDUARDO MORRISON [facility] [id number] [facility] 2023-06-06 00:00:00 2023-06-06 00:00:00 Refill Ira Ramirez [facility] 1.84.114 350.1.13.10 4.2.7.2.686 [id number] [facility] 2023-05-27 00:00:00 2023-05-27 00:00:00 Refill Ira Ramirez [facility] 1.284.114 350.1.13.10 4.2.7.2.686 [id number] [facility] 2023-05-27 00:00:00 2023-05-27 00:00:00 Refill Ira Ramirez [facility] 1.2840.114 350.1.13.10 4.2.7.2.686 [id number] [facility] 2023-05-19 00:00:00 2023-05-19 00:00:00 Orders Only Doctor Unassigned, [place] [facility] 1.2840.114 350.1.13.10 4.2.7.2.686 [id number] [facility] 2023-05-16 00:00:00 2023-05-16 00:00:00 Telephone Ira Ramirez [facility] 1.2840.114 350.1.13.10 4.2.7.2.686 [id number] [facility] 2023-04-28 00:00:00 2023-04-28 00:00:00 Orders Only Doctor Unassigned, [place] [facility] 1.2840.114 350.1.13.10 4.2.7.2.686 [id number] 009 [id number] [facility] 2023-04-20 00:00:00 2023-04-20 00:00:00 Orders Only Doctor Unassigned, [place] [facility] 1.2840.114 350.1.13.10 4.2.7.2.686 [id number] [id number] [facility] 2023-04-18 00:00:00 2023-04-18 00:00:00 Telephone Ira Ramirez [facility] OFF[facility] BUILD[facility] 1.2840.114 350.1.13.10 4.2.7.2.686 [id number] 044 [id number] [facility] 2023-04-18 00:00:00 2023-04-18 00:00:00 Orders Only Doctor Unassigned, [place] [facility] 1.2840.114 350.1.13.10 4.2.7.2.686 [id number] 009 [id number] [facility] 2023-04-12 00:00:00 2023-04-12 00:00:00 Orders Only Doctor Unassigned, [place] [facility] 1.2.840.114 350.1.13.10 4.2.7.2.686 [id number] 009 [id number] [facility] 2023-04-12 00:00:00 2023-04-12 00:00:00 Telephone [facility] 1.2.840.114 350.1.13.10 4.2.7.2.686 [id number] 044 [id number] [facility] 2023-04-08 00:00:00 2023-04-08 00:00:00 Refill Ashley [facility] 1.2.840.114 350.1.13.10 4.2.7.2.686 [id number] 044 [id number] [facility] 2023-04-08 00:00:00 2023-04-08 00:00:00 Telephone Ashley [facility] 1.2.840.114 350.1.13.10 4.2.7.2.686 [id number] 044 [id number] [facility] 2023-03-22 22:02:00 2023-04-06 13:30:00 Inpatient 3 [place] [id number] [facility] 2023-03-29 21:39:00 2023-03-29 21:39:00 Outpatient ProviderJared HCAPM RADI [id number] [facility] 2023-03-24 11:51:00 2023-03-24 11:51:00 Outpatient Lara Cuellar HCAPM RADI [id number] [facility] 2023-03-23 00:00:00 2023-03-23 00:00:00 Transition of Care Breanna Caballero 1.2.114 350.1.13.10 4.2.7.2.686 [id number] [facility] 2023-03-12 01:21:00 2023-03-22 20:50:00 Inpatient [facility] MICHELLE [id number] [facility] 2023-03-12 01:21:00 2023-03-22 20:50:00 Hospital Encounter Susan Ramirez Gulshan Dacso, Matthew M [facility] 1..114 350.1.13.10 4.2.7.2.686 [id number] 093 [id number] [facility] 2023-03-11 00:00:00 2023-03-11 00:00:00 Telephone Ashley [facility] 1.114 350.1.13.10 4.2.7.2.686 [id number] 044 [id number] [facility] 2023-03-09 00:00:00 2023-03-09 00:00:00 Telephone Vinayak [facility] 1..114 350.1.13.10 4.2.7.2.686 [id number] 044 [id number] [facility] 2023-02-25 05:21:00 2023-03-03 17:50:00 Inpatient MARAH CORNEJO [facility] Cardiac ICU [id number] [facility] 2023-03-02 00:00:00 2023-03-02 00:00:00 Orders Only Doctor Unassigned, [place] [facility] 1..114 350.1.13.10 4.2.7.2.686 [id number] [id number] [facility] 2023-02-24 00:00:00 2023-02-24 00:00:00 Orders Only Doctor Unassigned, [place] [facility] 1.2.840.114 350.1.13.10 4.2.7.2.686 [id number] [id number] [facility] 2023-02-23 14:30:00 2023-02-23 14:30:00 Outpatient R IRA RAMIREZ [facility] [id number] [facility] 2023-02-23 00:00:00 2023-02-23 00:00:00 Telephone Ira Ramirez [facility] 1.2.840.114 350.1.13.10 4.2.7.2.686 [id number] 044 [id number] [facility] 2023-02-21 11:08:00 2023-02-21 11:08:00 Outpatient Hector Burns [facility] CATH [id number] [facility] 2023-02-19 11:32:00 2023-02-19 15:20:00 Inpatient Saqib Cespedes [facility] MEDI.01 [id number] [facility] 2023-02-11 18:53:00 2023-02-17 15:05:00 Inpatient ER FCO JIMENEZ [facility] Med [id number] [facility] 2023-02-11 15:00:00 2023-02-11 15:00:00 Outpatient R JUAN M CAMPOS [facility] [id number] [facility] 2023-02-11 19:34:23 2023-02-11 00:00:00 Inpatient ER ENRIQUE TORRES [facility] [id number] [facility] 2023-02-09 09:00:00 2023-02-09 09:00:00 Outpatient EDUARDO OCONNOR YU [facility] [id number] [facility] 2023-02-07 00:00:00 2023-02-07 00:00:00 Orders Only Doctor Unassigned, [place] [facility] 1.2840.114 350.1.13.10 4.2.7.2.686 [id number] [id number] [facility] 2023-02-01 00:00:00 2023-02-01 00:00:00 Refill KristachongIra marrufo [facility] E[facility]UEL?[facility] 1.2840.114 350.1.13.10 4.2.7.2.686 [id number] 044 [id number] [facility] 2023-01-21 10:00:00 2023-01-21 10:47:29 Outpatient R SINCERE EVERETT [facility] [id number] [facility] 2023-01-21 10:00:00 2023-01-21 10:15:00 Office Visit Sincere Eve[facility] 1.2840.114 350.1.13.10 4.2.7.2.686 [id number] [facility] 2023-01-19 00:00:00 2023-01-19 00:00:00 Darrell Ramirez Ira [facility] 1.2.840.114 350.1.13.10 4.2.7.2.686 [id number] 044 [id number] [facility] 2023-01-12 09:45:00 2023-01-12 10:00:00 Office Visit Ira Ramirez [facility] 1.2.840.114 350.1.13.10 4.2.7.2.686 [id number] 044 [id number] [facility] 2023-01-12 09:45:00 2023-01-12 09:22:43 Outpatient R IRA RAMIREZ [facility] [id number] [facility] 2023-01-07 00:00:00 2023-01-07 00:00:00 [facility]ill [facility] 1.2840.114 350.1.13.10 4.2.7.2.686 [id number] 044 [id number] [facility] 2023-01-05 00:00:00 2023-01-05 00:00:00 Refill [facility] 1.2840.114 350.1.13.10 4.2.7.2.686 [id number] 044 [id number] [facility] 2022-12-15 00:00:00 2022-12-15 00:00:00 Refill [facility] 1.2840.114 350.1.13.10 4.2.7.2.686 [id number] 044 [id number] [facility] 2022-12-14 00:00:00 2022-12-14 00:00:00 Refill Ira Ramirez [facility] E[facility]UEL?[facility] 1.2840.114 350.1.13.10 4.2.7.2.686 [id number] 044 [id number] [facility] 2022-12-01 00:00:00 2022-12-01 00:00:00 Telephone [facility] 1.2840.114 350.1.13.10 4.2.7.2.686 [id number] 044 [id number] [facility] 2022-11-25 00:00:00 2022-11-25 00:00:00 Telephone [facility] 1.2840.114 350.1.13.10 4.2.7.2.686 [id number] 044 [id number] [facility] 2022-11-25 00:00:00 2022-11-25 00:00:00 Orders Only Doctor Unassigned, [place] [facility] 1.20.114 350.1.13.10 4.2.7.2.686 [id number] [id number] [facility] 2022-11-17 11:15:00 2022-11-17 11:15:00 Office Visit Ira Ramirez [facility]UEL?[facility] 1.114 350.1.13.10 4.2.7.2.686 [id number] 044 [id number] [facility] 2022-11-17 11:15:00 2022-11-17 11:07:04 Outpatient IRA AGUILAR [facility] [id number] [facility] 2022-11-07 01:49:00 2022-11-11 16:10:00 Inpatient YOVANNY HART [facility] Medical ICU [id number] [facility] 2022-11-01 00:00:00 2022-11-01 00:00:00 Telephone Ira Ramirez [facility] E[facility]EL?[facility] OFF[facility] 1.2114 350.1.13.10 4.2.7.2.686 [id number] 044 [id number] [facility] 2022-11-01 00:00:00 2022-11-01 00:00:00 Refill Ira Ramirez [facility] 1.2.114 350.1.13.10 4.2.7.2.686 [id number] 044 [id number] [facility] 2022-10-27 00:00:00 2022-10-27 00:00:00 Refill Mary Alice Galarza [facility]UEL?[facility] 1.2840.114 350.1.13.10 4.2.7.2.686 [id number] 044 [id number] [facility] 2022-10-20 00:00:00 2022-10-20 00:00:00 Refill Ira Ramirez [facility]EL?[facility] 1.84.114 350.1.13.10 4.2.7.2.686 [id number] 044 [id number] [facility] 2022-10-06 00:00:00 2022-10-06 00:00:00 Refill Ira Ramirez [facility]EL[facility] 1.114 350.1.13.10 4.2.7.2.686 [id number] 044 [id number] [facility] 2022-10-01 15:30:00 2022-10-01 16:16:44 [facility] [id number] [facility] 2022-10-01 15:30:00 2022-10-01 16:16:44 [facility] 1.114 350.1.13.10 4.2.7.2.686 [id number] 044 [id number] [facility] 2022-10-01 00:00:00 2022-10-01 00:00:00 Orders Only Doctor Unassigned, [place] [facility] 1.114 350.1.13.10 4.2.7.2.686 [id number] 009 [id number] [facility] 2022-09-29 00:00:00 2022-09-29 00:00:00 Refill Tmaiko Dunne [facility] 1.84.114 350.1.13.10 4.2.7.2.686 [id number] [facility] 2022-09-23 00:00:00 2022-09-23 00:00:00 Refill Ashley [facility] OFF[facility]ILD[facility] 1.2840.114 350.1.13.10 4.2.7.2.686 [id number] 044 [id number] [facility] 2022-09-21 00:00:00 2022-09-21 00:00:00 Orders Only Doctor Unassigned, [place] [facility] 1.2840.114 350.1.13.10 4.2.7.2.686 [id number] 009 [id number] [facility] 2022-09-20 00:00:00 2022-09-20 00:00:00 Shila Ramirez [facility] OFF[facility]ILD[facility] 1.2840.114 350.1.13.10 4.2.7.2.686 [id number] 044 [id number] [facility] 2022-09-10 00:00:00 2022-09-10 00:00:00 Orders Only Doctor Unassigned, [place] [facility] 1.2840.114 350.1.13.10 4.2.7.2.686 [id number] [id number] [facility] 2022-09-09 00:00:00 2022-09-09 00:00:00 Refill Ashley [facility] 1.2840.114 350.1.13.10 4.2.7.2.686 [id number] 044 [id number] [facility] 2022-08-31 16:00:00 2022-08-31 16:00:00 Office Visit Ye Winkler [facility] 1.2840.114 350.1.13.10 4.2.7.2.686 [id number] [facility] 2022-08-31 16:00:00 2022-08-31 15:59:36 Outpatient R YE WINKLER [facility] [id number] [facility] 2022-08-31 00:00:00 2022-08-31 00:00:00 Orders Only Doctor Unassigned, [place] [facility] 1.2840.114 350.1.13.10 4.2.7.2.686 [id number] 009 [id number] [facility] 2022-08-27 00:00:00 2022-08-27 00:00:00 [facility] 1.0.114 350.1.13.10 4.2.7.2.686 [id number] 044 [id number] [facility] 2022-08-27 00:00:00 2022-08-27 00:00:00 Refill Akash Martinez [facility] OFF[facility]ILD[facility] 1.0.114 350.1.13.10 4.2.7.2.686 [id number] 044 [id number] [facility] 2022-08-25 00:00:00 2022-08-25 00:00:00 [facility] 1..114 350.1.13.10 4.2.7.2.686 [id number] 044 [id number] [facility] 2022-08-25 00:00:00 2022-08-25 00:00:00 Orders Only Doctor Unassigned, [place] [facility] 1.0.114 350.1.13.10 4.2.7.2.686 [id number] [id number] [facility] 2022-08-14 00:00:00 2022-08-14 00:00:00 Refill [facility]shayy [facility] 1..114 350.1.13.10 4.2.7.2.686 [id number] 044 [id number] [facility] 2022-08-13 11:00:00 2022-08-13 11:26:30 Outpatient R MARY ALICE GALARZA [facility] [id number] [facility] 2022-08-13 11:00:00 2022-08-13 11:26:30 [facility] 1.2.840.114 350.1.13.10 4.2.7.2.686 [id number] 044 [id number] [facility] 2022-08-02 00:00:00 2022-08-02 00:00:00 Telephone Ira Ramirez [facility] 1.2.840.114 350.1.13.10 4.2.7.2.686 [id number] 044 [id number] [facility] 2022-08-01 00:00:00 2022-08-01 00:00:00 Orders Only Doctor Unassigned, [place] [facility] 1.2840.114 350.1.13.10 4.2.7.2.686 [id number] 009 [id number] [facility] 2022-07-27 14:00:00 2022-07-27 14:30:00 Office Visit Ira Ramirez [facility] 1.2840.114 350.1.13.10 4.2.7.2.686 [id number] 044 [id number] [facility] 2022-07-27 14:00:00 2022-07-27 14:00:00 Outpatient IRA AGUILAR [facility] [id number] [facility] 2022-07-27 13:30:00 2022-07-27 13:30:00 Outpatient R LAINEY CUELLO [facility] [id number] [facility] 2022-07-25 00:00:00 2022-07-25 00:00:00 Refill Ira Ramirez [facility] E[facility]UEL?[facility] 1.2.840.114 350.1.13.10 4.2.7.2.686 [id number] 044 [id number] [facility] 2022 00:00:00 2022 00:00:00 Telephone Ira Ramirez [facility]EL?[facility] 1.2.840.114 350.1.13.10 4.2.7.2.686 [id number] 044 [id number] [facility] 2022 00:00:00 2022 00:00:00 Refill Ira Ramirez [facility]EL[facility] 1.2.840.114 350.1.13.10 4.2.7.2.686 [id number] 044 [id number] [facility] 2022-07-15 00:00:00 2022-07-15 00:00:00 Refill Ira Ramirez [facility]EL?[facility] 1.2.840.114 350.1.13.10 4.2.7.2.686 [id number] 044 [id number] [facility] 2022-07-04 00:00:00 2022-07-04 00:00:00 RefIra Baca [facility]EL?[facility] 1.2.840.114 350.1.13.10 4.2.7.2.686 [id number] 044 [id number] [facility] 2022-06-25 09:40:00 2022-06-25 10:22:52 Outpatient R ARI WASHINGTON [facility] [id number] [facility] 2022-06-25 09:40:00 2022-06-25 10:00:00 Urgent Care Ari [place] Unknown, Attending [facility] 1.114 350.1.13.10 4.2.7.2.686 [id number] [facility] 2022-06-25 00:00:00 2022-06-25 00:00:00 Orders Only Doctor Unassigned, [place] [facility] 1.20.114 350.1.13.10 4.2.7.2.686 [id number] [id number] [facility] 2022-06-21 08:00:00 2022-06-21 10:15:39 Outpatient IRA AGUILAR [facility] [id number] [facility] 2022-06-21 08:00:00 2022-06-21 08:10:00 Imm/Inj Visit Vaccine, Ang Db Cbc Claudio Ramirez [facility] OFF[facility] BUILD[facility] 1.114 350.1.13.10 4.2.7.2.686 [id number] 044 [id number] [facility] 2022-06-20 00:00:00 2022-06-20 00:00:00 [facility] 1.114 350.1.13.10 4.2.7.2.686 [id number] 044 [id number] [facility] 2022-06-16 00:00:00 2022-06-16 00:00:00 Darrell Ramirez [facility]ILD[facility] 1.114 350.1.13.10 4.2.7.2.686 [id number] 044 [id number] [facility] 2022-06-15 00:00:00 2022-06-15 00:00:00 Orders Only Doctor Unassigned, [place] [facility] 1.20.114 350.1.13.10 4.2.7.2.686 [id number] 009 [id number] [facility] 2022-06-13 00:00:00 2022-06-13 00:00:00 Refill Ashley [facility] E[facility]UEL?[facility] 1.2.840.114 350.1.13.10 4.2.7.2.686 [id number] 044 [id number] [facility] 2022-06-10 10:23:44 2022-06-10 11:09:22 Outpatient JEANNE LEWIS [facility] [id number] [facility] 2022-06-06 00:00:00 2022-06-06 00:00:00 Refill Ashley [facility] E[facility]EL?[facility]ILD[facility] 1.2.840.114 350.1.13.10 4.2.7.2.686 [id number] 044 [id number] [facility] 2022-05-31 00:00:00 2022-05-31 00:00:00 Refjimbo Ramirez [facility] E[facility]UEL?[facility] OFF[facility]ILD[facility] 1.2.840.114 350.1.13.10 4.2.7.2.686 [id number] 044 [id number] [facility] 2022-05-12 13:30:00 2022-05-12 13:30:00 Office Visit Ira Ramirez [facility] 1.2.840.114 350.1.13.10 4.2.7.2.686 [id number] 044 [id number] [facility] 2022-05-12 13:30:00 2022-05-12 13:29:48 Outpatient IRA AGUILAR [facility] [id number] [facility] 2022-05-09 00:00:00 2022-05-09 00:00:00 Refjimbo Ramirez [facility] EMANUEL?[facility] 1.2840.114 350.1.13.10 4.2.7.2.686 [id number] 044 [id number] [facility] 2022-05-06 00:00:00 2022-05-06 00:00:00 Telephone Ira Ramirez [facility] E[facility]UEL?[facility] 1.2840.114 350.1.13.10 4.2.7.2.686 [id number] 044 [id number] [facility] 2022-05-04 00:00:00 2022-05-04 00:00:00 Orders Only Doctor Unassigned, [place] [facility] 1.20.114 350.1.13.10 4.2.7.2.686 [id number] [facility] 2022-05-04 00:00:00 2022-05-04 00:00:00 Telephone Ira Ramirez [facility]EL?[facility] 1.840.114 350.1.13.10 4.2.7.2.686 [id number] 044 [id number] [facility] 2022-05-02 00:00:00 2022-05-02 00:00:00 Refill Kristachongshayy Ira [facility] E[facility]UEL?[facility] 1.840.114 350.1.13.10 4.2.7.2.686 [id number] 044 [id number] [facility] 2022-04-06 00:00:00 2022-04-06 00:00:00 Refill Ashley Ira [facility]UEL[facility] 1.2840.114 350.1.13.10 4.2.7.2.686 [id number] 044 [id number] [facility] 2022-04-05 00:00:00 2022-04-05 00:00:00 Refill KristaIra khan [facility]EL?[facility] 1.2.840.114 350.1.13.10 4.2.7.2.686 [id number] 044 [id number] [facility] 2022-03-29 00:00:00 2022-03-29 00:00:00 Ira Fernandez [facility] E[facility]UEL?[facility] 1.2840.114 350.1.13.10 4.2.7.2.686 [id number] 044 [id number] [facility] 2022-03-26 00:00:00 2022-03-26 00:00:00 Telephone Tamiko [facility] E[facility]UEL?[facility] 1.2840.114 350.1.13.10 4.2.7.2.686 [id number] [facility] 2022-03-22 00:00:00 2022-03-22 00:00:00 Darrell Ramirez [facility] EMANUEL?[facility] 1.2840.114 350.1.13.10 4.2.7.2.686 [id number] [facility] 2022-03-22 00:00:00 2022-03-22 00:00:00 Telephone Tamiko [facility] EMANUEL?[facility] 1.2840.114 350.1.13.10 4.2.7.2.686 [id number] [facility] 2022-03-22 00:00:00 2022-03-22 00:00:00 Telephone Tamiko [facility] EMANUEL?[facility] 1.2.840.114 350.1.13.10 4.2.7.2.686 [id number] [facility] 2022-03-19 00:00:00 2022-03-19 00:00:00 Telephone Eduardo Morrison [facility] EMANUEL?[facility] 1.840.114 350.1.13.10 4.2.7.2.686 [id number] [facility] 2022-03-10 12:15:00 2022-03-10 12:38:57 Transmission Calibration 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 [id number] [facility] 2022-03-10 11:30:00 2022-03-10 12:08:55 [facility] 1.84.114 350.1.13.10 4.2.7.2.686 [id number] [facility] 2022-03-10 11:30:00 2022-03-10 12:08:55 Outpatient R TAMIKO EDUARDO MORRISON [facility] [id number] [facility] 2022-03-07 00:00:00 2022-03-07 00:00:00 [facility] 1.84.114 350.1.13.10 4.2.7.2.686 [id number] [id number] [facility] 2022-03-05 00:00:00 2022-03-05 00:00:00 Darrell Kristalynn [facility] EMANUEL[facility] 1.840.114 350.1.13.10 4.2.7.2.686 [id number] [facility] 2022-03-05 00:00:00 2022-03-05 00:00:00 Orders Only Doctor Unassigned, [place] [facility] 1.2840.114 350.1.13.10 4.2.7.2.686 [id number] [id number] [facility] 2022-03-01 00:00:00 2022-03-01 00:00:00 Refill [facility] 1.20.114 350.1.13.10 4.2.7.2.686 [id number] 044 [id number] [facility] 2022-02-23 00:00:00 2022-02-23 00:00:00 Refill Ashley [facility] EMANUEL?[facility] 1..114 350.1.13.10 4.2.7.2.686 [id number] 044 [id number] [facility] 2022-02-23 00:00:00 2022-02-23 00:00:00 Refill Ashley [facility] EMANUEL?[facility] 1.2840.114 350.1.13.10 4.2.7.2.686 [id number] 044 [id number] [facility] 2022-02-15 00:00:00 2022-02-15 00:00:00 Telephone Ira Ramirez [facility] EMANUEL?[facility] 1.2840.114 350.1.13.10 4.2.7.2.686 [id number] 044 [id number] [facility] 2022-02-11 00:00:00 2022-02-11 00:00:00 Refill Ira Ramirez [facility] EMANUEL?[facility] 1.2840.114 350.1.13.10 4.2.7.2.686 [id number] 044 [id number] [facility] 2022-02-11 00:00:00 2022-02-11 00:00:00 Orders Only Doctor Unassigned, [place] [facility] 1.2.840.114 350.1.13.10 4.2.7.2.686 [id number] [facility] 2022-02-08 12:00:00 2022-02-08 12:00:00 Outpatient EDUARDO OCONNOR YU [facility] [id number] [facility] 2022-02-05 11:00:00 2022-02-05 11:00:00 Outpatient IRA AGUILAR [facility] [id number] [facility] 2022-01-29 16:00:00 2022-01-29 16:30:00 Telemedici ne Visit Ashley [facility] 1.2.840.114 350.1.13.10 4.2.7.2.686 [id number] 044 [id number] [facility] 2022-01-29 16:00:00 2022-01-29 16:00:00 Outpatient IRA AGUILAR [facility] [id number] [facility] 2022-01-29 00:00:00 2022-01-29 00:00:00 Orders Only Doctor Unassigned, [place] [address]..840.114 350.1.13.10 4.2.7.2.686 [id number] [facility] 2022-01-28 00:00:00 2022-01-28 00:00:00 Refill Ashley [facility] 1.2.840.114 350.1.13.10 4.2.7.2.686 [id number] 044 [id number] [facility] 2022-01-27 00:00:00 2022-01-27 00:00:00 Telephone Ira Ramirez [facility] EMANUEL?[facility] 1.2.840.114 350.1.13.10 4.2.7.2.686 [id number] 044 [id number] [facility] 2022-01-26 00:00:00 2022-01-26 00:00:00 Telephone Ira Ramirez [facility] EMANUEL?[facility] 1.2840.114 350.1.13.10 4.2.7.2.686 [id number] 044 [id number] [facility] 2022-01-25 10:15:00 2022-01-25 10:15:00 Outpatient R VINAYAKSHAYYIRA [facility] [id number] [facility] 2022-01-22 00:00:00 2022-01-22 00:00:00 Telephone Ira Ramirez [facility] EMANUEL?[facility] 1.2840.114 350.1.13.10 4.2.7.2.686 [id number] 044 [id number] [facility] 2022-01-21 00:00:00 2022-01-21 00:00:00 Refill Ashley [facility] 1.2.840.114 350.1.13.10 4.2.7.2.686 [id number] 044 [id number] [facility] 2022-01-20 11:30:00 2022-01-20 11:45:00 Laboratory Only Only, Ang Db Test Dago [facility] 1.2840.114 350.1.13.10 4.2.7.2.686 [id number] [facility] 2022-01-20 11:30:00 2022-01-20 11:30:00 Outpatient SANTANA CHICAS [facility] [id number] [facility] 2022-01-20 00:00:00 2022-01-20 00:00:00 Telephone Ira Ramirez [facility] 1.2.840.114 350.1.13.10 4.2.7.2.686 [id number] 044 [id number] [facility] 2022-01-20 00:00:00 2022-01-20 00:00:00 Refill Ira Ramirez [facility] EMANUEL?[facility] 1.2840.114 350.1.13.10 4.2.7.2.686 [id number] 044 [id number] [facility] 2022-01-19 00:00:00 2022-01-19 00:00:00 Telephone Ira Ramirez [facility] OFF[facility] BUILD[facility] 1.840.114 350.1.13.10 4.2.7.2.686 [id number] 044 [id number] [facility] 2022-01-19 00:00:00 2022-01-19 00:00:00 Orders Only Doctor Unassigned, [place] [facility] 1.2840.114 350.1.13.10 4.2.7.2.686 [id number] [id number] [facility] 2022-01-15 00:00:00 2022-01-15 00:00:00 Refill Ashley [facility] BUILD[facility] 1.2840.114 350.1.13.10 4.2.7.2.686 [id number] 044 [id number] [facility] 2022-01-15 00:00:00 2022-01-15 00:00:00 Orders Only Doctor Unassigned, [place] [facility] 1.2840.114 350.1.13.10 4.2.7.2.686 [id number] [id number] [facility] 2022-01-08 00:00:00 2022-01-08 00:00:00 Orders Only Doctor Unassigned, [place] [facility] 1.114 350.1.13.10 4.2.7.2.686 [id number] [id number] [facility] 2022-01-04 00:00:00 2022-01-04 00:00:00 Telephone Ira Ramirez [facility] 1.114 350.1.13.10 4.2.7.2.686 [id number] 044 [id number] [facility] 2022-01-01 11:30:00 2022-01-01 11:45:00 Office Visit Kristachongshayy [facility] 1.114 350.1.13.10 4.2.7.2.686 [id number] [id number] [facility] 2022-01-01 11:30:00 2022-01-01 11:40:03 Outpatient R IRA RAMIREZ [facility] [id number] [facility] 2022-01-01 11:30:00 2022-01-01 11:30:00 Outpatient IRA AGUILAR [facility] [id number] [facility] 2021-12-29 00:00:00 2021-12-29 00:00:00 Transition of Care Parminder Kee 1.114 350.1.13.10 4.2.7.2.686 [id number] [facility] 2021-12-29 00:00:00 2021-12-29 00:00:00 Refill [facility] 1.84114 350.1.13.10 4.2.7.2.686 [id number] 044 [id number] [facility] 2021-12-24 06:50:00 2021-12-28 18:30:00 Inpatient X RYELE TRISTAN [facility] [id number] [facility] 2021-12-24 06:50:00 2021-12-28 18:30:00 Hospital Encounter Linh VillavicencioRylee [facility] 1..840.114 350.1.13.10 4.2.7.2.686 [id number] [facility] 2021-12-24 00:00:00 2021-12-24 00:00:00 Telephone Ira Ramirez [facility] 1..840.114 350.1.13.10 4.2.7.2.686 [id number] [facility] 2021-12-23 10:30:00 2021-12-23 10:31:57 Outpatient R [facility]ARDO [facility] [id number] [facility] 2021-12-23 10:30:00 2021-12-23 10:31:57 Office Visit Tamiko [facility] 1..840.114 350.1.13.10 4.2.7.2.686 [id number] [facility] 2021-12-22 15:15:00 2021-12-22 15:34:31 Outpatient R IRA RAMIREZ [facility] [id number] [facility] 2021-12-22 15:15:00 2021-12-22 15:30:00 Office Visit Ira Ramirez [facility] 1..840.114 350.1.13.10 4.2.7.2.686 [id number] 044 [id number] [facility] 2021-12-22 15:15:00 2021-12-22 15:15:00 Outpatient R IRA RAMIREZ [facility] [id number] [facility] 2021-12-22 15:15:00 2021-12-22 15:15:00 Outpatient IRA AGUILAR [facility] [id number] [facility] 2021-12-10 00:00:00 2021-12-10 00:00:00 Orders Only Doctor Unassigned, [place] [facility] 1.2840.114 350.1.13.10 4.2.7.2.686 [id number] [facility] 2021-12-01 00:00:00 2021-12-01 00:00:00 Telephone Ira Ramirez [facility] EMANUEL?[facility] 1.2.840.114 350.1.13.10 4.2.7.2.686 [id number] 044 [id number] [facility] 2021-12-01 00:00:00 2021-12-01 00:00:00 Telephone Ira Ramirez [facility] EMANUEL?[facility] 1.2.840.114 350.1.13.10 4.2.7.2.686 [id number] 044 [id number] [facility] 2021-11-29 00:00:00 2021-11-29 00:00:00 Refill Ira Ramirez [facility] 1.2.840.114 350.1.13.10 4.2.7.2.686 [id number] 044 [id number] [facility] 2021-11-27 00:00:00 2021-11-27 00:00:00 Telephone Ira Ramirez [facility] 1.2.840.114 350.1.13.10 4.2.7.2.686 [id number] 044 [id number] [facility] 2021-11-27 00:00:00 2021-11-27 00:00:00 Orders Only Doctor Unassigned, [place] [facility] 1.2840.114 350.1.13.10 4.2.7.2.686 [id number] [facility] 2021-11-26 00:00:00 2021-11-26 00:00:00 Telephone Ashley [facility] OFFICE BUILDING 1.840.114 350.1.13.10 4.2.7.2.686 [id number] 044 [id number] [facility] 2021-11-16 17:15:00 2021-11-18 11:54:00 Inpatient EM Nawaf Devlinadipo HCAPM INTE.02 [id number] [facility] 2021-11-16 17:15:00 2021-11-18 11:54:00 Inpatient EM Claus, Oladipo HCAPM INTE.02 [id number] [facility] 2021-11-16 17:15:00 2021-11-18 11:54:00 Inpatient EM Claus, Nawafadipo HCAPM INTE.02 [id number] [facility] 2021-11-18 00:00:00 2021-11-18 00:00:00 Telephone Ashley [facility] 1..840.114 350.1.13.10 4.2.7.2.686 [id number] 044 [id number] [facility] 2021-11-17 00:00:00 2021-11-17 00:00:00 Orders Only Doctor Unassigned, [place] [facility] 1.2840.114 350.1.13.10 4.2.7.2.686 [id number] [id number] [facility] 2021-11-16 00:56:00 2021-11-16 00:56:00 Outpatient Jose Mcfarlane [facility] LABO [id number] [facility] 2021-11-16 00:00:00 2021-11-16 00:00:00 Telephone Ira Ramirez [facility] EMANUEL?[facility] 1.2840.114 350.1.13.10 4.2.7.2.686 [id number] 044 [id number] [facility] 2021-11-13 00:00:00 2021-11-13 00:00:00 Refill Ira Ramirez [facility] EMANUEL?[facility] 1.2840.114 350.1.13.10 4.2.7.2.686 [id number] 044 [id number] [facility] 2021-10-27 00:00:00 2021-10-27 00:00:00 Telephone Ira Ramirez [facility] EMANUEL?[facility] 1.840.114 350.1.13.10 4.2.7.2.686 [id number] 044 [id number] [facility] 2021-10-27 00:00:00 2021-10-27 00:00:00 Orders Only Doctor Unassigned, [place] [facility] 1.840.114 350.1.13.10 4.2.7.2.686 [id number] [facility] 2021-10-23 00:00:00 2021-10-23 00:00:00 Telephone Ira Ramirez [facility] EMANUEL?[facility] 1.2840.114 350.1.13.10 4.2.7.2.686 [id number] 044 [id number] [facility] 2021-10-22 00:00:00 2021-10-22 00:00:00 Refill Ira Ramirez [facility] NAL OFFICE BUILDING ONE 1.840.114 350.1.13.10 4.2.7.2.686 [id number] [id number] [facility] 2021-10-10 22:19:00 2021-10-12 14:18:00 Inpatient EM Jose Mcfarlane HCAPM INTE.02 [id number] [facility] 2021-10-09 23:18:00 2021-10-09 23:18:00 Outpatient Rome Tyler HCACL LABO [id number] [facility] 2021-10-05 10:03:00 2021-10-05 15:34:00 Emergency EM Jyoti Andrew HCAPM NAHED [id number] [facility] 2021-10-05 12:59:00 2021-10-05 12:59:00 Outpatient Jyoti Andrew HCACL LABO [id number] [facility] 2021-09-30 11:27:09 2021-09-30 11:38:00 Hospital Encounter Ira Ramirez [facility] OFF[facility] BUILD[facility] 1.2.840.114 350.1.13.10 4.2.7.2.686 [id number] [facility] 2021-09-30 11:00:00 2021-09-30 11:27:26 Office Visit Ashley [facility] 1.2.840.114 350.1.13.10 4.2.7.2.686 [id number] 044 [id number] [facility] 2021-09-30 11:00:00 2021-09-30 11:27:26 Outpatient R IRA RAMIREZ [facility] [id number] [facility] 2021-09-30 11:00:00 2021-09-30 11:00:00 Outpatient IRA AGUILAR [facility] [id number] [facility] 2021-09-30 00:00:00 2021-09-30 00:00:00 Telephone Ashley [facility]ILD[facility] 1.114 350.1.13.10 4.2.7.2.686 [id number] [id number] [facility] 2021-09-23 00:00:00 2021-09-23 00:00:00 Refill VinayakshayyIra [facility] OFF[facility] BUILD[facility] ONE 1.114 350.1.13.10 4.2.7.2.686 [id number] 044 [id number] [facility] 2021-09-22 00:00:00 2021-09-22 00:00:00 Orders Only Doctor Unassigned, [place] [facility] 1..114 350.1.13.10 4.2.7.2.686 [id number] [facility] 2021-09-02 00:00:00 2021-09-02 00:00:00 Orders Only Doctor Unassigned, [place] [facility] 1..114 350.1.13.10 4.2.7.2.686 [id number] [facility] 2021-08-24 14:00:00 2021-08-24 14:16:26 Office Visit Ashley Ira [facility] 1.84114 350.1.13.10 4.2.7.2.686 [id number] 044 [id number] [facility] 2021-08-24 14:00:00 2021-08-24 14:00:00 Outpatient R IRA RAMIREZ [facility] [id number] [facility] 2021-08-17 11:30:00 2021-08-17 23:59:00 Hospital Encounter Ashley [facility] 1.84.114 350.1.13.10 4.2.7.2.686 [id number] [facility] 2021-08-17 11:00:00 2021-08-17 11:35:09 Outpatient R IRA RAMIREZ [facility] [id number] [facility] 2021-08-17 11:00:00 2021-08-17 11:15:00 Office Visit Ira Ramirez [facility] EMANUEL?[facility] 1.2.840.114 350.1.13.10 4.2.7.2.686 [id number] 044 [id number] [facility] 2021-08-17 11:00:00 2021-08-17 11:00:00 Outpatient R IRA RAMIREZ [facility] [id number] [facility] 2021-08-17 00:00:00 2021-08-17 00:00:00 Telephone Ira Ramirez [facility] EMANUEL?[facility] 1.840.114 350.1.13.10 4.2.7.2.686 [id number] [id number] [facility] 2021-08-17 00:00:00 2021-08-17 00:00:00 Telephone Ira Ramirez [facility] EMANUEL?[facility] 1.84.114 350.1.13.10 4.2.7.2.686 [id number] 044 [id number] [facility] 2021-07-20 00:00:00 2021-07-20 00:00:00 Refill Ira Ramirez [facility] .84.114 350.1.13.10 4.2.7.2.686 [id number] 044 [id number] [facility] 2021-07-04 00:00:00 2021-07-04 00:00:00 Refill Ira Ramirez [facility] 1.84.114 350.1.13.10 4.2.7.2.686 [id number] 044 [id number] [facility] 2021-06-22 13:10:00 2021-06-22 13:10:00 Outpatient DENYS GOMEZ [facility] [id number] [facility] 2021-06-22 13:00:00 2021-06-22 13:00:00 Outpatient IRA AGUILAR [facility] [id number] [facility] 2021-06-22 12:57:13 2021-06-22 12:57:20 Imm/Inj Visit Nurse, Nannette Pob Immunizatio Denys Cain [facility] NAL BUILDING 1.840.114 350.1.13.10 4.2.7.2.686 [id number] [facility] 2021-06-08 08:34:24 2021-06-08 09:59:26 Outpatient JEANNE LEWIS [facility] [id number] [facility] 2021-06-03 00:00:00 2021-06-03 00:00:00 Darrell Ramirez [facility] OFFICE BUILDING ONE 1.840.114 350.1.13.10 4.2.7.2.686 [id number] 044 [id number] [facility] 2021-05-13 00:00:00 2021-05-13 00:00:00 Ira aNtion [facility] MASHA [facility] OFFICE BUILDING 1.840.114 350.1.13.10 4.2.7.2.686 [id number] 044 [id number] [facility] 2021-05-11 00:00:00 2021-05-11 00:00:00 Darrell Ramirez [facility] OFFICE BUILDING ONE .840.114 350.1.13.10 4.2.7.2.686 [id number] 044 [id number] [facility] 2021-05-06 00:00:00 2021-05-06 00:00:00 Darrell Ashley [facility] Office Building One ..114 350.1.13.10 4.2.7.2.686 [id number] 044 [id number] [facility] 2021-04-07 00:11:00 2021-04-16 19:33:00 Inpatient EM Mandy Devlin HCAPM INTE.02 [id number] [facility] 2021-04-07 01:04:00 2021-04-07 01:04:00 Outpatient Mandy Devlin HCACL LABO [id number] [facility] 2021-03-30 00:00:00 2021-03-30 00:00:00 Orders Only Doctor Unassigned, [place] [facility] 1..114 350.1.13.10 4.2.7.2.686 [id number] [facility] 2021-03-16 00:00:00 2021-03-16 00:00:00 [facility] ..114 350.1.13.10 4.2.7.2.686 [id number] 044 [id number] [facility] 2021-03-09 00:00:00 2021-03-09 00:00:00 Orders Only Doctor Unassigned, [place] [facility] .0.114 350.1.13.10 4.2.7.2.686 [id number] [id number] [facility] 2021-03-03 00:00:00 2021-03-03 00:00:00 [facility] ..114 350.1.13.10 4.2.7.2.686 [id number] 044 [id number] [facility] 2021-03-03 00:00:00 2021-03-03 00:00:00 Refill KristaIra khan [facility] Office Building One ..114 350.1.13.10 4.2.7.2.686 [id number] [id number] [facility] 2021-03-02 00:00:00 2021-03-02 00:00:00 Orders Only Doctor Unassigned, [place] [facility] 1.114 350.1.13.10 4.2.7.2.686 [id number] [id number] [facility] 2021-02-27 15:44:12 2021-02-27 16:22:41 Office Visit Ira Ramirez [facility] Emanuel?Diane lopez Medical Office Building 1..114 350.1.13.10 4.2.7.2.686 [id number] 044 [id number] [facility] 2021-02-27 16:00:00 2021-02-27 16:00:00 Outpatient R IRA RAMIREZ [facility] [id number] [facility] 2021-02-23 00:00:00 2021-02-23 00:00:00 Refill Ashley [facility] Office Building One ..114 350.1.13.10 4.2.7.2.686 [id number] 044 [id number] [facility] 2021-02-16 00:00:00 2021-02-16 00:00:00 Telephone Kristalynn [facility] Office Building One ..114 350.1.13.10 4.2.7.2.686 [id number] 044 [id number] [facility] 2021-02-05 00:00:00 2021-02-05 00:00:00 Refill Kristalynn [facility] Office Building One 1..114 350.1.13.10 4.2.7.2.686 [id number] 044 [id number] [facility] 2021-01-21 00:00:00 2021-01-21 00:00:00 Darrell Ramirez [facility] Office Building One 1.0.114 350.1.13.10 4.2.7.2.686 [id number] 044 [id number] [facility] 2021-01-07 00:00:00 2021-01-07 00:00:00 Darrell Ramirez [facility] Office Building One 1..114 350.1.13.10 4.2.7.2.686 [id number] 044 [id number] [facility] 2021-01-02 00:00:00 2021-01-02 00:00:00 Darrell Ramirez [facility] Office Building One 1..114 350.1.13.10 4.2.7.2.686 [id number] 044 [id number] [facility] 2020-12-27 00:00:00 2020-12-27 00:00:00 Darrell Ramirez [facility] Office Building One .114 350.1.13.10 4.2.7.2.686 [id number] 044 [id number] [facility] 2020-12-23 00:00:00 2020-12-23 00:00:00 Orders Only Doctor Unassigned, [place] [facility] 1..114 350.1.13.10 4.2.7.2.686 [id number] [id number] [facility] 2020-12-22 00:00:00 2020-12-22 00:00:00 Ayazjimbo Kristalynn [facility] Office Building One 1.0.114 350.1.13.10 4.2.7.2.686 [id number] 044 [id number] [facility] 2020-12-15 00:00:00 2020-12-15 00:00:00 Telephone Ashley [facility] Office Building One 1.0.114 350.1.13.10 4.2.7.2.686 [id number] 044 [id number] [facility] 2020-12-13 00:00:00 2020-12-13 00:00:00 Orders Only Doctor Unassigned, [place] [facility] 1.20.114 350.1.13.10 4.2.7.2.686 [id number] [facility] 2020-12-10 00:00:00 2020-12-10 00:00:[facility] One 1..114 350.1.13.10 4.2.7.2.686 [id number] [id number] [facility] 2020-12-03 00:00:00 2020-12-03 00:00:00 [facility] One 1..114 350.1.13.10 4.2.7.2.686 [id number] [id number] [facility] 2020-11-27 00:00:00 2020-11-27 00:00:00 Telephone Ashley [facility] Office [facility] One 1.0.114 350.1.13.10 4.2.7.2.686 [id number] [id number] [facility] 2020-11-25 00:00:00 2020-11-25 00:00:00 Orders Only Doctor Unassigned, [place] [facility] 1.2840.114 350.1.13.10 4.2.7.2.686 [id number] [facility] 2020-11-24 00:00:00 2020-11-24 00:00:00 Refill [facility]sh[facility] Office [facility] 1..114 350.1.13.10 4.2.7.2.686 [id number] [id number] [facility] 2020-11-10 00:00:00 2020-11-10 00:00:00 Orders Only Doctor Unassigned, [place] [facility] 1..114 350.1.13.10 4.2.7.2.686 [id number] [facility] 2020-11-08 00:00:00 2020-11-08 00:00:00 Refill Kristalynn [facility] Office Building One 1..114 350.1.13.10 4.2.7.2.686 [id number] 044 [id number] [facility] 2020-11-04 00:00:00 2020-11-04 00:00:00 Telephone Kristalynn [facility] Office Building One 1..114 350.1.13.10 4.2.7.2.686 [id number] 044 [id number] [facility] 2020-10-31 00:00:00 2020-10-31 00:00:00 Refill Ashley Ira [facility] Office Building One 1..114 350.1.13.10 4.2.7.2.686 [id number] 044 [id number] [facility] 2020-10-20 10:31:33 2020-10-20 10:46:33 Office Visit VinayakshayyIra [facility] Office Building One 1.2.840.114 350.1.13.10 4.2.7.2.686 [id number] 044 [id number] [facility] 2020-10-20 10:45:00 2020-10-20 10:45:00 Outpatient IRA AGUILAR [facility] [id number] [facility] 2020-10-14 00:00:00 2020-10-14 00:00:00 Orders Only Doctor Unassigned, [place] [facility] 1.840.114 350.1.13.10 4.2.7.2.686 [id number] 009 [id number] [facility] 2020-10-14 00:00:00 2020-10-14 00:00:00 Shila Ramirez [facility] Office Building One 1.0.114 350.1.13.10 4.2.7.2.686 [id number] 044 [id number] [facility] 2020-09-28 00:00:00 2020-09-28 00:00:00 Refill Ashley [facility] Office Building One 1.0.114 350.1.13.10 4.2.7.2.686 [id number] 044 [id number] [facility] 2020-09-26 00:00:00 2020-09-26 00:00:00 Orders Only Doctor Unassigned, [place] [facility] 1.0.114 350.1.13.10 4.2.7.2.686 [id number] 009 [id number] [facility] 2020-08-30 00:00:00 2020-08-30 00:00:00 Refill Kristalynn [facility] Office Building One ..114 350.1.13.10 4.2.7.2.686 [id number] 044 [id number] [facility] 2020-08-20 00:00:00 2020-08-20 00:00:00 Orders Only Doctor Unassigned, [place] [facility] 1.2840.114 350.1.13.10 4.2.7.2.686 [id number] 009 [id number] [facility] 2020-08-16 00:00:00 2020-08-16 00:00:00 Telephone Ira Ramirez [facility] Office Building One 1.840.114 350.1.13.10 4.2.7.2.686 [id number] 044 [id number] [facility] 2020-08-11 12:00:00 2020-08-11 12:00:00 Outpatient DUANE VARGAS [facility] [id number] [facility] 2020-08-11 00:00:00 2020-08-11 00:00:00 Orders Only Doctor Unassigned, [place] [facility] 1.2840.114 350.1.13.10 4.2.7.2.686 [id number] 009 [id number] [facility] 2020-08-04 00:00:00 2020-08-04 00:00:00 Telephone Ira Ramirez [facility] Office Building One 1.0.114 350.1.13.10 4.2.7.2.686 [id number] 044 [id number] [facility] 2020-07-24 00:00:00 2020-07-24 00:00:00 Refill Ira Ramirez [facility] Office Building One .840.114 350.1.13.10 4.2.7.2.686 [id number] 044 [id number] [facility] 2020-07-23 00:00:00 2020-07-23 00:00:00 Refill Ira Ramirez [facility] Office Building One .840.114 350.1.13.10 4.2.7.2.686 [id number] 044 [id number] [facility] 2020-07-20 00:00:00 2020-07-20 00:00:00 Darrell Ramirez [facility] Office Building One 1.84.114 350.1.13.10 4.2.7.2.686 [id number] 044 [id number] [facility] 2020-07-14 14:20:00 2020-07-14 14:20:00 [facility] [id number] 2020-07-14 14:20:00 2020-07-14 14:20:00 [facility] [id number] [facility] 2020-07-10 00:00:00 2020-07-10 00:00:00 Ayazjimbo Ashley [facility] Office Building One ..114 350.1.13.10 4.2.7.2.686 [id number] 044 [id number] [facility] 2020-06-24 00:00:00 2020-06-24 00:00:00 Ayazjimbo Ashley [facility] Office Building One ..114 350.1.13.10 4.2.7.2.686 [id number] 044 [id number] [facility] 2020-06-11 09:00:00 2020-06-11 09:00:00 Outpatient IRA AGUILAR [facility] [id number] [facility] 2020-06-11 06:50:08 2020-06-11 07:20:08 Telemedici ne Sylvia Reganshayy [facility] Office Building One ..114 350.1.13.10 4.2.7.2.686 [id number] 044 [id number] [facility] 2020-06-11 00:00:00 2020-06-11 00:00:00 Telephone Ira Ramirez [facility] Office Building One 1.2840.114 350.1.13.10 4.2.7.2.686 [id number] 044 [id number] [facility] 2020-06-11 00:00:00 2020-06-11 00:00:00 Orders Only Doctor Unassigned, [place] [facility] 1.2840.114 350.1.13.10 4.2.7.2.686 [id number] 009 [id number] [facility] 2020-06-10 00:00:00 2020-06-10 00:00:00 Telephone Ashley [facility] Office Building One 1.840.114 350.1.13.10 4.2.7.2.686 [id number] 044 [id number] [facility] 2020-06-09 00:00:00 2020-06-09 00:00:00 Refill Ashley [facility] Office Building One 1.840.114 350.1.13.10 4.2.7.2.686 [id number] 044 [id number] [facility] 2020-06-04 00:00:00 2020-06-04 00:00:00 Refill Ashley [facility] Office Building One 1.840.114 350.1.13.10 4.2.7.2.686 [id number] 044 [id number] [facility] 2020-05-29 00:00:00 2020-05-29 00:00:00 Orders Only Doctor Unassigned, [place] [facility] 1.2840.114 350.1.13.10 4.2.7.2.686 [id number] 009 [id number] [facility] 2020-05-28 09:18:00 2020-05-28 16:25:00 [facility] 1.20.114 350.1.13.10 4.2.7.2.686 [id number] [id number] [facility] 2020-05-28 00:00:00 2020-05-28 00:00:00 Orders Only Doctor Unassigned, [place] [facility] 1.0.114 350.1.13.10 4.2.7.2.686 [id number] 009 [id number] [facility] 2020-05-27 14:05:19 2020-05-27 14:20:19 Laboratory Only Only, Adc Test [facility] 1..114 350.1.13.10 4.2.7.2.686 [id number] [facility] 2020-05-27 12:45:00 2020-05-27 12:45:00 Outpatient R FABRICIO, [facility] [id number] [facility] 2020-05-27 00:00:00 2020-05-27 00:00:00 Orders Only Doctor Unassigned, [place] 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 1..114 350.1.13.10 4.2.7.2.686 [id number] [facility] 2020-05-26 12:30:00 2020-05-26 12:30:00 Outpatient Duy [facility] [id number] [facility] 2020-05-26 00:00:00 2020-05-26 00:00:00 Orders Only Doctor Unassigned, [place] [facility] 1.2.840.114 350.1.13.10 4.2.7.2.686 [id number] 009 [id number] [facility] 2020-05-21 00:00:00 2020-05-21 00:00:00 Refill Ashley [facility] Office Building One 1.840.114 350.1.13.10 4.2.7.2.686 [id number] 044 [id number] [facility] 2020-05-19 00:00:00 2020-05-19 00:00:00 Orders Only Doctor Unassigned, [place] [facility] 1.840.114 350.1.13.10 4.2.7.2.686 [id number] 009 [id number] [facility] 2020-05-19 00:00:00 2020-05-19 00:00:00 Telephone Kristalynn [facility] Office Building One 1.840.114 350.1.13.10 4.2.7.2.686 [id number] 044 [id number] [facility] 2020-04-28 00:00:00 2020-04-28 00:00:00 Orders Only Doctor Unassigned, [place] [facility] 1.2840.114 350.1.13.10 4.2.7.2.686 [id number] 009 [id number] [facility] 2020-04-28 00:00:00 2020-04-28 00:00:00 Refill Ashley [facility] Office Building One 1.840.114 350.1.13.10 4.2.7.2.686 [id number] 044 [id number] [facility] 2020-04-25 00:00:00 2020-04-25 00:00:[facility] 1.840.114 350.1.13.10 4.2.7.2.686 [id number] 044 [id number] [facility] 2020-04-24 00:00:00 2020-04-24 00:00:00 [facility] 1.114 350.1.13.10 4.2.7.2.686 [id number] 044 [id number] [facility] 2020-04-18 00:00:00 2020-04-18 00:00:00 [facility] 1.114 350.1.13.10 4.2.7.2.686 [id number] 044 [id number] [facility] 2020-04-14 00:00:00 2020-04-14 00:00:00 Orders Only Doctor Unassigned, [place] [facility] 1.114 350.1.13.10 4.2.7.2.686 [id number] 009 [id number] [facility] 2020-04-08 00:00:00 2020-04-08 00:00:00 [facility] 1.114 350.1.13.10 4.2.7.2.686 [id number] 044 [id number] [facility] 2020-04-08 00:00:00 2020-04-08 00:00:00 Orders Only Doctor Unassigned, [place] [facility] 1.114 350.1.13.10 4.2.7.2.686 [id number] 009 [id number] [facility] 2020-03-28 09:26:59 2020-03-28 10:04:46 Outpatient JEANNE LEWIS MDA, MDA [id number] [facility] 2020-03-24 00:00:00 2020-03-24 00:00:00 [facility] 1.2.840.114 350.1.13.10 4.2.7.2.686 [id number] 044 [id number] [facility] 2020-03-11 00:00:00 2020-03-11 00:00:00 Refill Ashley [facility] Office Building One 1.2840.114 350.1.13.10 4.2.7.2.686 [id number] 044 [id number] [facility] 2020-03-07 00:00:00 2020-03-07 00:00:00 [facility] 1.840.114 350.1.13.10 4.2.7.2.686 [id number] 044 [id number] [facility] 2020-02-15 00:00:00 2020-02-15 00:00:00 Orders Only Doctor Unassigned, [place] [facility] 1.2840.114 350.1.13.10 4.2.7.2.686 [id number] 009 [id number] [facility] 2020-02-04 00:00:00 2020-02-04 00:00:00 Orders Only Doctor Unassigned, [place] [facility] 1.2840.114 350.1.13.10 4.2.7.2.686 [id number] 009 [id number] [facility] 2020-02-04 00:00:00 2020-02-04 00:00:00 Telephone Ashley [facility] Building 1.840.114 350.1.13.10 4.2.7.2.686 [id number] 044 [id number] [facility] 2020-01-29 00:00:00 2020-01-29 00:00:00 [facility] 1.840.114 350.1.13.10 4.2.7.2.686 [id number] 044 [id number] [facility] 2020-01-21 00:00:00 2020-01-21 00:00:00 Pre Visit Outreach Ashley [facility] Building 1..840.114 350.1.13.10 4.2.7.2.686 [id number] 044 [id number] [facility] 2020-01-17 00:00:00 2020-01-17 00:00:00 Orders Only Doctor Unassigned, [place] [facility] 1.840.114 350.1.13.10 4.2.7.2.686 [id number] 009 [id number] [facility] 2020-01-16 10:05:00 2020-01-16 10:05:00 Discharged Recurring TYRESE SHRESTHA [id number] [facility] 2020-01-14 11:00:00 2020-01-14 11:00:00 Outpatient R [facility] [id number] [facility] 2020-01-11 00:00:00 2020-01-11 00:00:00 Telephone Ashley [facility] Building 1.840.114 350.1.13.10 4.2.7.2.686 [id number] 044 [id number] [facility] 2020-01-11 00:00:00 2020-01-11 00:00:00 Orders Only Doctor Unassigned, [place] [facility] 1.2840.114 350.1.13.10 4.2.7.2.686 [id number] 009 [id number] [facility] 2020-01-08 10:45:00 2020-01-08 15:32:00 Departed Surgical Day [facility] TYRESE SHRESTHA [id number] [facility] 2020-01-06 00:00:00 2020-01-06 00:00:00 Telephone Ashley [facility] Office Building One 1..840.114 350.1.13.10 4.2.7.2.686 [id number] 044 [id number] [facility] 2019-12-30 00:00:00 2019-12-30 00:00:00 Telephone Ira Ramirez [facility] Office Building One 1.840.114 350.1.13.10 4.2.7.2.686 [id number] 044 [id number] [facility] 2019-12-28 08:05:15 2019-12-28 09:12:53 Office Visit Alexandrea [facility] Building 1..114 350.1.13.10 4.2.7.2.686 [id number] [facility] 2019-12-28 08:30:00 2019-12-28 08:30:00 Outpatient R LIBERTY LECHUGA [facility] [id number] [facility] 2019-12-27 00:00:00 2019-12-27 00:00:00 Orders Only Doctor Unassigned, [place] [facility] 1..114 350.1.13.10 4.2.7.2.686 [id number] 009 [id number] [facility] 2019-12-17 15:42:00 2019-12-17 15:42:00 Discharged Recurring TYRESE SHRESTHA [id number] [address] [place] [address] 2019-12-17 00:00:00 2019-12-17 00:00:00 Refill AshleyIra [facility] Office Building One ..114 350.1.13.10 4.2.7.2.686 [id number] 044 [id number] [facility] 2019-12-04 00:00:00 2019-12-04 00:00:00 Telephone Ira Ramirez [facility] Building 1.0.114 350.1.13.10 4.2.7.2.686 [id number] 044 [id number] [facility] 2019-11-30 00:00:00 2019-11-30 00:00:00 Telephone Ira Ramirez [facility] Building 1.2.840.114 350.1.13.10 4.2.7.2.686 [id number] 044 [id number] [facility] 2019-11-29 00:00:00 2019-11-29 00:00:00 Orders Only Doctor Unassigned, [place] [facility] 1.2.840.114 350.1.13.10 4.2.7.2.686 [id number] 009 [id number] [facility] 2019-11-22 00:00:00 2019-11-22 00:00:00 Telephone Ira Ramirez [facility] Building 1.2840.114 350.1.13.10 4.2.7.2.686 [id number] 044 [id number] [facility] 2019-11-16 00:00:00 2019-11-16 00:00:00 Orders Only Doctor Unassigned, [place] [facility] 1.2.840.114 350.1.13.10 4.2.7.2.686 [id number] 009 [id number] [facility] 2019-11-06 00:00:00 2019-11-06 00:00:00 Telephone Ira Ramirez thang [facility] Building 1.2840.114 350.1.13.10 4.2.7.2.686 [id number] 044 [id number] [facility] 2019-11-06 00:00:00 2019-11-06 00:00:00 Refill Ira Ramirez [facility] Building 1.2.840.114 350.1.13.10 4.2.7.2.686 [id number] 044 [id number] [facility] 2019-10-30 00:00:00 2019-10-30 00:00:00 Telephone Ira Ramirez [facility] Building 1.2.840.114 350.1.13.10 4.2.7.2.686 [id number] 044 [id number] [facility] 2019-10-28 00:00:00 2019-10-28 00:00:00 Telephone Ashley [facility] Building 1.2.840.114 350.1.13.10 4.2.7.2.686 [id number] 044 [id number] [facility] 2019-10-26 00:00:00 2019-10-26 00:00:00 Orders Only Doctor Unassigned, [place] [facility] 1.2.840.114 350.1.13.10 4.2.7.2.686 [id number] 009 [id number] [facility] 2019-10-15 00:00:00 2019-10-15 00:00:00 Telephone Ira Ramirez [facility] Building 1.2.840.114 350.1.13.10 4.2.7.2.686 [id number] 044 [id number] [facility] 2019-09-28 10:48:22 2019-09-28 11:03:22 Office Visit Ira Ramirez [facility] Office Building One 1.2840.114 350.1.13.10 4.2.7.2.686 [id number] 044 [id number] [facility] 2019-09-28 10:45:00 2019-09-28 10:45:00 Outpatient R ASHLEY [facility] [id number] [facility] 2019-09-27 00:00:00 2019-09-27 00:00:00 Orders Only Doctor Unassigned, [place] [facility] 1.2.840.114 350.1.13.10 4.2.7.2.686 [id number] 009 [id number] [facility] 2019-09-26 00:00:00 2019-09-26 00:00:00 Telephone Ashley [facility] Office Building One 1.2840.114 350.1.13.10 4.2.7.2.686 [id number] 044 [id number] [facility] 2019-09-24 00:00:00 2019-09-24 00:00:00 [facility] 1.2840.114 350.1.13.10 4.2.7.2.686 [id number] 044 [id number] [facility] 2019-09-19 00:00:00 2019-09-19 00:00:00 Telephone Ashley [facility] Office Building One 1.840.114 350.1.13.10 4.2.7.2.686 [id number] 044 [id number] [facility] 2019-09-13 00:00:00 2019-09-13 00:00:00 Orders Only Doctor Unassigned, [place] [facility] 1.840.114 350.1.13.10 4.2.7.2.686 [id number] 009 [id number] [facility] 2019-09-10 00:00:00 2019-09-10 00:00:00 [facility] 1.840.114 350.1.13.10 4.2.7.2.686 [id number] 044 [id number] [facility] 2019-09-05 00:00:00 2019-09-05 00:00:00 Orders Only Doctor Unassigned, [place] [facility] 1.2840.114 350.1.13.10 4.2.7.2.686 [id number] 009 [id number] [facility] 2019-08-28 00:00:00 2019-08-28 00:00:00 Orders Only Doctor Unassigned, [place] [facility] 1.840.114 350.1.13.10 4.2.7.2.686 [id number] 009 [id number] [facility] 2019-08-23 00:00:00 2019-08-23 00:00:00 Refill Ashley [facility] Office Building One 1.840.114 350.1.13.10 4.2.7.2.686 [id number] 044 [id number] [facility] 2019-08-21 00:00:00 2019-08-21 00:00:00 Telephone Ashley [facility] Office Building One 1.0.114 350.1.13.10 4.2.7.2.686 [id number] 044 [id number] [facility] 2019-08-20 00:00:00 2019-08-20 00:00:00 Telephone Ira Ramirez [facility] Office Building One 1.0.114 350.1.13.10 4.2.7.2.686 [id number] 044 [id number] [facility] 2019-08-17 00:00:00 2019-08-17 00:00:00 Darrell Ramirez [facility] Office Building One 1..114 350.1.13.10 4.2.7.2.686 [id number] 044 [id number] [facility] 2019-08-06 00:00:00 2019-08-06 00:00:00 Refill Ashley [facility] Office Building One 1.840.114 350.1.13.10 4.2.7.2.686 [id number] 044 [id number] [facility] 2019-08-03 00:00:00 2019-08-03 00:00:00 Orders Only Doctor Unassigned, [place] [facility] 1.2.840.114 350.1.13.10 4.2.7.2.686 [id number] 009 [id number] [facility] 2019-08-01 00:00:00 2019-08-01 00:00:00 Telephone Ashley [facility] Office Building One 1.2840.114 350.1.13.10 4.2.7.2.686 [id number] 044 [id number] [facility] 2019-07-23 00:00:00 2019-07-23 00:00:00 [facility] One 1.2840.114 350.1.13.10 4.2.7.2.686 [id number] 044 [id number] [facility] 2019-07-17 00:00:00 2019-07-17 00:00:00 Orders Only Doctor Unassigned, [place] [facility] 1.2.840.114 350.1.13.10 4.2.7.2.686 [id number] 009 [id number] [facility] 2019-03-08 00:00:00 2019-03-08 00:00:00 Orders Only Doctor Unassigned, [place] [facility] 1.2.840.114 350.1.13.10 4.2.7.2.686 [id number] 009 [id number] [facility] 2019-03-01 00:00:00 2019-03-01 00:00:00 Orders Only Doctor Unassigned, [place] [facility] 1.2.840.114 350.1.13.10 4.2.7.2.686 [id number] 009 [id number] [facility] 2019-02-23 00:00:00 2019-02-23 00:00:00 [facility] 1.2840.114 350.1.13.10 4.2.7.2.686 [id number] 044 [id number] [facility] 2019-02-21 00:00:00 2019-02-21 00:00:00 Orders Only Doctor Unassigned, [place] [facility] 1.2.840.114 350.1.13.10 4.2.7.2.686 [id number] 009 [id number] [facility] 2019-02-15 00:00:00 2019-02-15 00:00:00 Orders Only Doctor Unassigned, [place] [facility] 1.2.840.114 350.1.13.10 4.2.7.2.686 [id number] 009 [id number] [facility] 2019-02-06 00:00:00 2019-02-06 00:00:00 Orders Only Doctor Unassigned, [place] [facility] 1.2.840.114 350.1.13.10 4.2.7.2.686 [id number] 009 [id number] [facility] 2019-01-09 00:00:00 2019-01-09 00:00:00 Orders Only Doctor Unassigned, [place] [facility] 1.2.840.114 350.1.13.10 4.2.7.2.686 [id number] 009 [id number] [facility] 2018-10-26 00:00:00 2018-10-26 00:00:00 Orders Only Doctor Unassigned, [place] [facility] 1.2.840.114 350.1.13.10 4.2.7.2.686 [id number] 009 [id number] [facility] Results Test Description Test Time Test Comments Results Resul t Comments Source - XR CHEST 1 V 2023-03-29 22:00:00 [facility] 1955 Sex: M Name: IRA RAYA Galva : 1955 Age/S: 67 / M [id number] [address] Unit #: [id number] Loc: [place] [address] Phys: Undefined Provider Acct: [id number] Dis Date: Status: REG REF PHONE #: [phone] Exam Date: 03/29/20232144 FAX #: Reason: Viral Pneumonia Unsp EXAMS: CPT: [id number] XR CHEST 1 V 88701 Fluoro Time: DAP (Gy m2): Air Kerma (mGy): EXAM: - XR CHEST 1 V CLINICAL HISTORY: Viral Pneumonia Unsp TECHNIQUE: Single frontal view. COMPARISON: Chest radiograph 02/19/2023 LOCATION: H65 FINDINGS: The trachea appears normal. The mediastinum and cardiac silhouette are within normal limits for size. No confluent airspace opacities. No pleural effusions. Visualized soft tissues and osseous structures are grossly unremarkable. IMPRESSION: No acute cardiopulmonary process. at 2200 Reported and signed by: Ajay Benoit D.O. CC: Ira Ramirez MD PAGE 1 Signed Report Name: IRA RAYA Galva : 1955 Age/S: 67 / M [id number] Unit #: [id number] Loc: [place] [address] Phys: Undefined Provider Acct: [id number] Dis Date: Status: REG REF PHONE #: [phone] Exam Date: 03/29/20232144 FAX #: Reason: Viral Pneumonia Unsp EXAMS: CPT: [id number] XR CHEST 1 V 27047 Fluoro Time: DAP (Gy m2): Air Kerma (mGy): (Continued) Technologist: Marjorie Villavicencio, RT(R)(CT) Trnscb Date/Time: 03/29/2023 (2200) [email or web address] Orig Print D/T: S: 03/29/2023 (2202) PAGE 2 Signed Report - XR CHEST 1 V 2023-03-24 12:21:00 [facility] 1955 Sex: M Name: IRA RAYA [facility] : 1955 Age/S: 67 / M [id number] Unit #: [id number] Loc: [place] [address] Phys: Lara Cuellar MD Acct: [id number] Dis Date: Status: REG REF PHONE #: [phone] Exam Date: 03/24/2023 1205 FAX #: Reason: SOB EXAMS: CPT: [id number] XR CHEST 1 V 51128 Fluoro Time: DAP (Gy m2): Air Kerma (mGy): Location Code: S17 EXAMINATION: - XR CHEST 1 V CLINICAL INDICATION: Male, 67 years year old with shortness of breath COMPARISON: None. FINDINGS: Single view(s) of the chest submitted. Support Devices: None. Heart: Cardiac silhouette is normal in size. Mediastinum: Calcifications are present in the thoracic aorta. Lungs: Mild pulmonary vascular congestive changes. Patient the left lung base. Blunting of the left costophrenic angle may be secondary to atelectasis or developing airspace disease. Mild interstitial opacities. Pleura: No evidence of large pleural effusion is identified. No pneumothorax is present. Bones: Visualized skeleton is intact. IMPRESSION: Mild pulmonary vascular congestive changes. Mild interstitial opacities may represent edema or developing pneumonia. at 1221 Reported and signed by: Fuad Fuentes M.D. CC: Lara Cuellar MD PAGE 1 Signed Report Name: IRA RAYA : 1955 Age/S: 67 / M [id number] [address] Unit #: [id number] Loc: [place] [address] Phys: Lara Cuellar MD Acct: [id number] Dis Date: Status: REG REF PHONE #: [phone] Exam Date: 03/24/2023 1205 FAX #: Reason: SOB EXAMS: CPT: [id number] XR CHEST 1 V 35911 Fluoro Time: DAP (Gy m2): Air Kerma (mGy): (Continued) Technologist: Sal Gallegos Trnscb Date/Time: 03/24/2023 (1221) [email or web address] Orig Print D/T: S: 03/24/2023 ([id number]) PAGE 2 Signed Report [facility] 13:26:11* Test Item Value Reference Range Interpretation Comme nts PHOSPHORUS (test code = 2402654350) 3.9 mg/dL 2.5-5.0 Lab Interpretation (test cod e = 50087-4) Normal [facility]2023-[facility]-07 13:26:11* Test Item Value Reference Range Interpretation Comme nts MAGNESIUM (test code = 5717558789) 2.1 mg/dL 1.7-2.4 Lab Interpretation (test cod e = 70634-7) Normal [facility] MET[facility]OLIC PANEL (NA, K, CL, CO2, GLUCOSE, BUN, CREATININE, CA)2023-03-17 13:26:11* Test Item Value Reference Range Interpretation Comme nts NA (test code = 8288898921) 134 mmol/L 135-145 L K (test code = 1732916386) 4.4 mmol/L 3.5-5.0 CL (test code = 2125851305) 100 mmol/L 98-108 CO2 TOTAL (test code = 6979646621) 25 mmol/L 23-31 AGAP (test code = 6914323100) 9 2-16 BUN (test code = 2969769700) 30 mg/dL 7-23 H GLUCOSE (test code = 2555053756) 66 mg/dL 70-110 L CREATININE (test code = 6208550414) 4.10 mg/dL 0.60-1.25 H CALCIUM (test code = 4721843054) 9.3 mg/dL 8.6-10.6 eGFR (test code = 4313076412) 14.6 mL/min/1.73m2 DANE (test code = DANE) Association of Glomerular Filtration Rate (GFR) and Staging of Kidney Disease* + --+ --+ ------+| GFR (mL/min/1.73 m2) ?| With Kidney Damage ?| ?Without Kidney Damage+ --------+ --------+ +| ?>90 ?| ?Stage one ?| ? Normal ?+ ---+ ---+ -------+| ?60-89 ?| ?Stage two ?| ? Decreased GFR ? + --+ --+ ------+| ?30-59 ?| ?Stage three ?| ? Stage three ? + --+ --+ ------+| ?15-29 ?| ?Stage four ? | ? Stage four ?+ ---+ ---+ -------+| ?<15 (or dialysis) ? ?| ?Stage five ? | ? Stage five ?+ ---+ ---+ -------+ *Each stage assumes the associated GFR level has been in effect for at least three months. ?Stages 1 to 5, with or without kidney disease, indicate chronic kidney disease. Notes: Determination of stages one and two (with eGFR >59mL/min/1.73 m2) requires estimation of kidney damage for at least three months as defined by structural or functional abnormalities of the kidney, manifested by either:Pathological abnormalities or Markers of kidney damage (including abnormalities in the composition of the blood or urine or abnormalities in imaging tests). Lab Interpretation (test code = 59359-3) Abnormal [facility] B Surface Antibody (HBsAb)2023-03-16 22:19:26* Test Item Value Reference Range Interpretation Comme nts HBsAB (test code = 5780010665) Negative HBsAb Semi-Quantitative (test code = 1311803955) 1.10 mIU/mL DANE (test code = DANE) Interpretation: ?Hepatitis B Surface Antibody ? Negative - Patient is considered to be not immune to infection with HBV. ? ? Positive - Anti-HBs detected at greater than or equal to 12 mIU/mL. ?Patient is considered to be immune to infection with HBV. ? [facility] B Surface Antigen (HBsAg)2023-03-16 22:01:44* Test Item Value Reference Range Interpretation Comme nts HBsAg Semi-Quantitative (zaki t code = 5195-3) 0.09 Negative [facility] METABOLIC PANEL (NA, K, CL, CO2, GLUCOSE, BUN, CREATININE, CA)2023-03-16 15:36:40* Test Item Value Reference Range Interpretation Comme nts NA (test code = 1308026133) 133 mmol/L 135-145 L K (test code = 6554749917) 4.2 mmol/L 3.5-5.0 CL (test code = 7910951902) 97 mmol/L 98-108 L CO2 TOTAL (test code = 7474534268) 24 mmol/L 23-31 AGAP (test code = 3478867730) 12 2-16 BUN (test code = 1020719407) 51 mg/dL 7-23 H GLUCOSE (test code = 4214002909) 124 mg/dL 70-110 H CREATININE (test code = 3680247576) 6.90 mg/dL 0.60-1.25 H CALCIUM (test code = 1859707011) 9.0 mg/dL 8.6-10.6 eGFR (test code = 9796948782) 8.0 mL/min/1.73m2 DANE (test code = DANE) Association of Glomerular Filtration Rate (GFR) and Staging of Kidney Disease* + --+ --+ ------+| GFR (mL/min/1.73 m2) ?| With Kidney Damage ?| ?Without Kidney Damage+ --------+ --------+ +| ?>90 ?| ?Stage one ?| ? Normal ?+ ---+ ---+ -------+| ?60-89 ?| ?Stage two ?| ? Decreased GFR ? + --+ --+ ------+| ?30-59 ?| ?Stage three ?| ? Stage three ? + --+ --+ ------+| ?15-29 ?| ?Stage four ? | ? Stage four ?+ ---+ ---+ -------+| ?<15 (or dialysis) ? ?| ?Stage five ? | ? Stage five ?+ ---+ ---+ -------+ *Each stage assumes the associated GFR level has been in effect for at least three months. ?Stages 1 to 5, with or without kidney disease, indicate chronic kidney disease. Notes: Determination of stages one and two (with eGFR >59mL/min/1.73 m2) requires estimation of kidney damage for at least three months as defined by structural or functional abnormalities of the kidney, manifested by either:Pathological abnormalities or Markers of kidney damage (including abnormalities in the composition of the blood or urine or abnormalities in imaging tests). Lab Interpretation (test code = 56221-6) Abnormal [facility]2023-09-06 15:01:19 YEROZCNBNM81/06/2023 10:[address] [facility] HospitalMAG[facility]UM2023-09-06 15:01:60FWDRCRUKQ23/06/2023 10:[address] [facility] SERVICESH[facility]ballPOCT GLUCOSE (AUTOMATED) 2023-03-16 13:31:06* Test Item Value Reference Range Interpretation Comme nts POCT GLU (test code = 4037099881) 101 mg/dL 70-110 Lab Interpretation (test cod e = 74411-3) Normal [facility]ball[facility]OLATE2023-09-06 02:09:18* Test Item Value Reference Range Interpretation Comme [facility] FOLATE SER (test code = 8894534809) 10.2 ng/mL 3.0-20.0 Lab Interpretation (test cod e = 48478-4) Normal [facility] TomballFERRITIN [id number] 23:50:28* Test Item Value Reference Range Interpretation Comme nts FERRITIN (test code = 6236796317) 2760.0 ng/mL 18.0-464.0 H DANE (test code = DANE) Biotin has been reported to cause a negative bias, interpret results relative to patient's use of biotin. Lab Interpretation (test code = 56308-2) Abnormal [facility]ballVITAMIN B12, [id number] 23:11:19* Test Item Value Reference Range Interpretation Comme nts VIT B12 (test code = 4322883837) 983 pg/mL 240-930 H DANE (test code = DANE) Biotin has been reported to cause a positive bias, interpret results relative to patient's use of biotin. Lab Interpretation (test code = 50655-8) Abnormal [facility] TomballIRON [id number] 21:51:37* Test Item Value Reference Range Interpretation Comme nts IRON (test code = 1999359110) 48 ug/dL 50-160 L TIBC (test code = 3110635983) 142 ug/dL 250-410 L % FE SAT (test code = 7408798346) 34 % 20-50 Lab Interpretation (test cod e = 67937-3) Abnormal [facility]ballaPTT (for use with Heparin Infusion)2023-03-15 20:43:24* Test Item Value Reference Range Interpretation Comme nts APTT Patient (test code = 3173-2) 51 See_Comment H [Automated messa ge] The system which generated this result transmitted reference range: 26 - 36 Seconds. The reference range was not used to interpret this result as normal/abnormal. Lab Interpretation (test code = 17406-0) Abnormal [facility]ballAC Panel 20 + Lactic [id number] 14:10:16* Test Item Value Reference Range Interpretation Comme nts PH (test code = 2) 7.34 7.35-7.45 L PCO2 (test code = 5564353758) 48 See_Comment H [Automated messa ge] The system which generated this result transmitted reference range: 35 - 45 mmHg. The reference range was not used to interpret this result as normal/abnormal. PO2 (test code = 3514490124) 176 See_Comment H [Automated messa ge] The system which generated this result transmitted reference range: 80 - 100 mmHg. The reference range was not used to interpret this result as normal/abnormal. HCO3 (test code = 2211487153) 25 See_Comment [Automated messa ge] The system which generated this result transmitted reference range: 22 - 26 mEq/L. The reference range was not used to interpret this result as normal/abnormal. BE (test code = 4131348524) -0.8 See_Comment [Automated messa ge] The system which generated this result transmitted reference range: -3.0 - 3.0 mEq/L. The reference range was not used to interpret this result as normal/abnormal. THB (test code = 4711840055) 8.8 g/dL 13.5-18.0 L %O2HB (test code = 2243672962) 99.0 % 94.0-99.0 %COHB ART (test code = 7592761678) 0.2 % 0.0-1.5 %METHB ART (test code = 6145903076) 0.1 % 0.4-1.5 L VOL%O2 ART (test code = 6416037148) 12.7 % 15.0-23.0 L NA (test code = 7068905084) 129 mmol/L 135-145 L K+ (test code = 0330153346) 4.6 mmol/L 3.5-5.0 AC CA IONZ (test code = 9480593619) 5.10 mg/dL 4.50-5.30 GLUCOSE (test code = 0825104559) 79 mg/dL 70-110 LACTIC ACID (test code = 4907220190) 1.04 mmol/L 0.50-2.20 QUES Lab Interpretation (test code = 59447-5) Abnormal [facility] TomballProthrombin Time / [id number] 12:11:15* Test Item Value Reference Range Interpretation Comme nts PROTIME PATIENT (test code = 5964-2) 14.7 See_Comment H [Automated messa ge] The system which generated this result transmitted reference range: 10.1 - 12.6 Seconds. The reference range was not used to interpret this result as normal/abnormal. INR (test code = 6301-6) 1.3 Normal INR <1.1; Warfarin Therapeutic range 2.0 to 3.0 or 2.5 to 3.5, depending upon the indications. Lab Interpretation (test code = 26584-3) Abnormal [facility]ball[facility] WITH [id number] 08:34:23* Test Item Value Reference Range Interpretation Comme nts WBC (test code = 6690-2) 17.54 See_Comment H [Automated message] The system which generated this result transmitted reference range: 4.20 - 10.70 10*3/?L. The reference range was not used to interpret this result as normal/abnormal. RBC (test code = 789-8) 3.00 See_Comment L [Automated message] The system which generated this result transmitted reference range: 4.26 - 5.52 10*6/?L. The reference range was not used to interpret this result as normal/abnormal. HGB (test code = 718-7) 8.0 g/dL 12.2-16.4 L HCT (test code = 4544-3) 26.6 % 38.4-49.3 L MCV (test code = 787-2) 88.7 fL 81.7-95.6 MCH (test code = 785-6) 26.7 pg 26.1-32.7 MCHC (test code = 786-4) 30.1 g/dL 31.2-35.0 L RDW-SD (test code = 43166-3) 62.5 fL 38.5-51.6 H RDW-CV (test code = 788-0) 20.0 % 12.1-15.4 H PLT (test code = 777-3) 216 See_Comment [Automated message] The system which generated this result transmitted reference range: 150 - 328 10*3/?L. The reference range was not used to interpret this result as normal/abnormal. MPV (test code = 34427-0) 9.9 fL 9.8-13.0 NRBC/100 WBC (test code = 9196824087) 0.6 See_Comment [Automated message] The system which generated this result transmitted reference range: 0.0 - 10.0 /100 WBCs. The reference range was not used to interpret this result as normal/abnormal. NRBC x10^3 (test code = 4276068381) 0.10 See_Comment [Automated message] The system which generated this result transmitted reference range: 10*3/?L. The reference range was not used to interpret this result as normal/abnormal. GRAN MAT (NEUT) % (test code = 770-8) 86.1 % IMM GRAN % (test code = 0361877008) 4.30 % LYMPH % (test code = 736-9) 2.3 % MONO % (test code = 5905-5) 7.0 % EOS % (test code = 713-8) 0.1 % BASO % (test code = 706-2) 0.2 % GRAN MAT x10^3(ANC) (test code = 5552532507) 15.12 10*3/uL 1.99-6.95 H IMM GRAN x10^3 (test code = 8977396326) 0.75 10*3/uL 0.00-0.06 H LYMPH x10^3 (test code = 731-0) 0.40 10*3/uL 1.09-3.23 L MONO x10^3 (test code = 742-7) 1.22 10*3/uL 0.36-1.02 H EOS x10^3 (test code = 711-2) 0.06-0.53 L BASO x10^3 (test code = 704-7) 0.04 10*3/uL 0.01-0.09 POLYCHROMASIA (test code = 06167-4) 2+ See_Comment [Automated message] The system which generated this result transmitted reference range: 2+. The reference range was not used to interpret this result as normal/abnormal. Lab Interpretation (test code = 89914-4) Abnormal [facility] METABOLIC PANEL (NA, K, CL, CO2, GLUCOSE, BUN, CREATININE, CA)2023-03-15 08:11:24* Test Item Value Reference Range Interpretation Comme nts NA (test code = 4927239237) 134 mmol/L 135-145 L K (test code = 6082119732) 4.3 mmol/L 3.5-5.0 CL (test code = 4010095639) 99 mmol/L 98-108 CO2 TOTAL (test code = 9674037224) 25 mmol/L 23-31 AGAP (test code = 9958699912) 10 2-16 BUN (test code = 9671593222) 28 mg/dL 7-23 H GLUCOSE (test code = 9604856322) 75 mg/dL 70-110 CREATININE (test code = 7318680407) 5.10 mg/dL 0.60-1.25 H CALCIUM (test code = 6470861610) 9.5 mg/dL 8.6-10.6 eGFR (test code = 5938252485) 11.3 mL/min/1.73m2 DANE (test code = DANE) Association of Glomerular Filtration Rate (GFR) and Staging of Kidney Disease* + --+ --+ ------+| GFR (mL/min/1.73 m2) ?| With Kidney Damage ?| ?Without Kidney Damage+ --------+ --------+ +| ?>90 ?| ?Stage one ?| ? Normal ?+ ---+ ---+ -------+| ?60-89 ?| ?Stage two ?| ? Decreased GFR ? + --+ --+ ------+| ?30-59 ?| ?Stage three ?| ? Stage three ? + --+ --+ ------+| ?15-29 ?| ?Stage four ? | ? Stage four ?+ ---+ ---+ -------+| ?<15 (or dialysis) ? ?| ?Stage five ? | ? Stage five ?+ ---+ ---+ -------+ *Each stage assumes the associated GFR level has been in effect for at least three months. ?Stages 1 to 5, with or without kidney disease, indicate chronic kidney disease. Notes: Determination of stages one and two (with eGFR >59mL/min/1.73 m2) requires estimation of kidney damage for at least three months as defined by structural or functional abnormalities of the kidney, manifested by either:Pathological abnormalities or Markers of kidney damage (including abnormalities in the composition of the blood or urine or abnormalities in imaging tests). Lab Interpretation (test code = 30691-3) Abnormal [facility] (for use with Heparin Infusion)2023-03-15 08:08:54* Test Item Value Reference Range Interpretation Comme nts APTT Patient (test code = 3173-2) 66 See_Comment H [Automated [employer]] The system which generated this result transmitted reference range: 26 - 36 Seconds. The reference range was not used to interpret this result as normal/abnormal. Lab Interpretation (test code = 90269-3) Abnormal [facility]2023-09-05 08:08:13* Test Item Value Reference Range Interpretation Comme nts PHOSPHORUS (test code = 8894077645) 5.5 mg/dL 2.5-5.0 H Lab Interpretation (test cod e = 44598-3) Abnormal [facility]2023-09-05 08:08:13* Test Item Value Reference Range Interpretation Comme nts MAGNESIUM (test code = 2672817925) 2.2 mg/dL 1.7-2.4 Lab Interpretation (test cod e = 44527-0) Normal [facility] (for use with Heparin Infusion)2023-03-14 23:13:05* Test Item Value Reference Range Interpretation Comme [facility] APTT Patient (test code = 3173-2) See_Comment HH [Automated messa ge] The system which generated this result transmitted reference range: 26 - 36 Seconds. The reference range was not used to interpret this result as normal/abnormal. Lab Interpretation (test code = 11325-7) Abnormal [facility]ballGLYCOSYLATED HEMOGLOBIN (A1C)2023-03-14 18:06:10* Test Item Value Reference Range Interpretation Comme [facility] HGB A1C (test code = 4548-4) 4.8 % 4.0-5.7 DANE (test code = DANE) Reference RangesNormal: <5.7%Prediabetes: 5.7 - 6.4%Diabetes: > 6.5% Lab Interpretation (test code = 14375-9) Normal [facility] WITH [id number] 16:44:59* Test Item Value Reference Range Interpretation Comme [facility] WBC (test code = 6690-2) 20.05 See_Comment H [Automated message] The system which generated this result transmitted reference range: 4.20 - 10.70 10*3/?L. The reference range was not used to interpret this result as normal/abnormal. RBC (test code = 789-8) 3.10 See_Comment L [Automated message] The system which generated this result transmitted reference range: 4.26 - 5.52 10*6/?L. The reference range was not used to interpret this result as normal/abnormal. HGB (test code = 718-7) 8.4 g/dL 12.2-16.4 L HCT (test code = 4544-3) 27.5 % 38.4-49.3 L MCV (test code = 787-2) 88.7 fL 81.7-95.6 MCH (test code = 785-6) 27.1 pg 26.1-32.7 MCHC (test code = 786-4) 30.5 g/dL 31.2-35.0 L RDW-SD (test code = 88088-9) 62.6 fL 38.5-51.6 H RDW-CV (test code = 788-0) 19.9 % 12.1-15.4 H PLT (test code = 777-3) 200 See_Comment [Automated message] The system which generated this result transmitted reference range: 150 - 328 10*3/?L. The reference range was not used to interpret this result as normal/abnormal. MPV (test code = 61005-1) 9.7 fL 9.8-13.0 L NRBC/100 WBC (test code = 7004717399) 0.2 See_Comment [Automated message] The system which generated this result transmitted reference range: 0.0 - 10.0 /100 WBCs. The reference range was not used to interpret this result as normal/abnormal. NRBC x10^3 (test code = 5311478012) 0.05 See_Comment [Automated message] The system which generated this result transmitted reference range: 10*3/?L. The reference range was not used to interpret this result as normal/abnormal. GRAN MAT (NEUT) % (test code = 770-8) 88.4 % IMM GRAN % (test code = 2073195782) 3.60 % LYMPH % (test code = 736-9) 1.5 % MONO % (test code = 5905-5) 6.0 % EOS % (test code = 713-8) 0.3 % BASO % (test code = 706-2) 0.2 % GRAN MAT x10^3(ANC) (test code = 3634533167) 17.71 10*3/uL 1.99-6.95 H IMM GRAN x10^3 (test code = 9104755291) 0.73 10*3/uL 0.00-0.06 H LYMPH x10^3 (test code = 731-0) 0.31 10*3/uL 1.09-3.23 L MONO x10^3 (test code = 742-7) 1.20 10*3/uL 0.36-1.02 H EOS x10^3 (test code = 711-2) 0.06 10*3/uL 0.06-0.53 BASO x10^3 (test code = 704-7) 0.04 10*3/uL 0.01-0.09 SCHISTOCYTES (test code = 800-3) 1+ A Lab Interpretation (test code = 13532-6) Abnormal [facility] (NA, K, CL, CO2, GLUCOSE, BUN, CREATININE, CA)2023-03-14 16:41:12* Test Item Value Reference Range Interpretation Comme nts NA (test code = 2471156140) 135 mmol/L 135-145 K (test code = 5013558700) 5.5 mmol/L 3.5-5.0 H CL (test code = 1091644929) 102 mmol/L 98-108 CO2 TOTAL (test code = 1944316525) 24 mmol/L 23-31 AGAP (test code = 4807302980) 9 2-16 BUN (test code = 0943456389) 43 mg/dL 7-23 H GLUCOSE (test code = 0859439372) 98 mg/dL 70-110 CREATININE (test code = 0602850017) 8.00 mg/dL 0.60-1.25 H CALCIUM (test code = 1386826564) 9.0 mg/dL 8.6-10.6 eGFR (test code = 9446402360) 6.7 mL/min/1.73m2 DANE (test code = DANE) Association of Glomerular Filtration Rate (GFR) and Staging of Kidney Disease* + --+ --+ ------+| GFR (mL/min/1.73 m2) ?| With Kidney Damage ?| ?Without Kidney Damage+ --------+ --------+ +| ?>90 ?| ?Stage one ?| ? Normal ?+ ---+ ---+ -------+| ?60-89 ?| ?Stage two ?| ? Decreased GFR ? + --+ --+ ------+| ?30-59 ?| ?Stage three ?| ? Stage three ? + --+ --+ ------+| ?15-29 ?| ?Stage four ? | ? Stage four ?+ ---+ ---+ -------+| ?<15 (or dialysis) ? ?| ?Stage five ? | ? Stage five ?+ ---+ ---+ -------+ *Each stage assumes the associated GFR level has been in effect for at least three months. ?Stages 1 to 5, with or without kidney disease, indicate chronic kidney disease. Notes: Determination of stages one and two (with eGFR >59mL/min/1.73 m2) requires estimation of kidney damage for at least three months as defined by structural or functional abnormalities of the kidney, manifested by either:Pathological abnormalities or Markers of kidney damage (including abnormalities in the composition of the blood or urine or abnormalities in imaging tests). Lab Interpretation (test code = 39548-3) Abnormal [facility] (for use with Heparin Infusion)2023-03-14 16:26:55* Test Item Value Reference Range Interpretation Comme [facility] APTT Patient (test code = 3173-2) 92 See_Comment H [Automated [employer]] The system which generated this result transmitted reference range: 26 - 36 Seconds. The reference range was not used to interpret this result as normal/abnormal. Lab Interpretation (test code = 15776-9) Abnormal [facility] TomballProthrombin Time / [id number] 11:36:59* Test Item Value Reference Range Interpretation Comme [facility] PROTIME PATIENT (test code = 5964-2) 13.9 See_Comment H [Automated [employer]] The system which generated this result transmitted reference range: 10.1 - 12.6 Seconds. The reference range was not used to interpret this result as normal/abnormal. INR (test code = 6301-6) 1.2 Normal INR <1.1; Warfarin Therapeutic range 2.0 to 3.0 or 2.5 to 3.5, depending upon the indications. Lab Interpretation (test code = 48587-1) Abnormal [facility] (for use with Heparin Infusion)2023-03-14 09:09:58* Test Item Value Reference Range Interpretation Comme [facility] APTT Patient (test code = 3173-2) 87 See_Comment H [Automated [employer]] The system which generated this result transmitted reference range: 26 - 36 Seconds. The reference range was not used to interpret this result as normal/abnormal. Lab Interpretation (test code = 71844-4) Abnormal [facility]ballCBC WITH [id number] 06:46:00* Test Item Value Reference Range Interpretation Comme [facility] WBC (test code = 6690-2) 22.11 See_Comment H [Automated message] The system which generated this result transmitted reference range: 4.20 - 10.70 10*3/?L. The reference range was not used to interpret this result as normal/abnormal. RBC (test code = 789-8) 3.15 See_Comment L [Automated message] The system which generated this result transmitted reference range: 4.26 - 5.52 10*6/?L. The reference range was not used to interpret this result as normal/abnormal. HGB (test code = 718-7) 8.3 g/dL 12.2-16.4 L HCT (test code = 4544-3) 27.9 % 38.4-49.3 L MCV (test code = 787-2) 88.6 fL 81.7-95.6 MCH (test code = 785-6) 26.3 pg 26.1-32.7 MCHC (test code = 786-4) 29.7 g/dL 31.2-35.0 L RDW-SD (test code = 88381-2) 62.5 fL 38.5-51.6 H RDW-CV (test code = 788-0) 19.9 % 12.1-15.4 H PLT (test code = 777-3) 224 See_Comment [Automated message] The system which generated this result transmitted reference range: 150 - 328 10*3/?L. The reference range was not used to interpret this result as normal/abnormal. MPV (test code = 74660-6) 9.8 fL 9.8-13.0 NRBC/100 WBC (test code = 3897326742) 0.3 See_Comment [Automated message] The system which generated this result transmitted reference range: 0.0 - 10.0 /100 WBCs. The reference range was not used to interpret this result as normal/abnormal. NRBC x10^3 (test code = 3168607744) 0.07 See_Comment [Automated message] The system which generated this result transmitted reference range: 10*3/?L. The reference range was not used to interpret this result as normal/abnormal. GRAN MAT (NEUT) % (test code = 770-8) 84.3 % IMM GRAN % (test code = 4027207681) 4.50 % LYMPH % (test code = 736-9) 2.4 % MONO % (test code = 5905-5) 8.6 % EOS % (test code = 713-8) 0.0 % BASO % (test code = 706-2) 0.2 % GRAN MAT x10^3(ANC) (test code = 6817542205) 18.61 10*3/uL 1.99-6.95 H IMM GRAN x10^3 (test code = 2046611524) 1.00 10*3/uL 0.00-0.06 H LYMPH x10^3 (test code = 731-0) 0.54 10*3/uL 1.09-3.23 L MONO x10^3 (test code = 742-7) 1.91 10*3/uL 0.36-1.02 H EOS x10^3 (test code = 711-2) 0.06-0.53 L BASO x10^3 (test code = 704-7) 0.05 10*3/uL 0.01-0.09 BASO STIPPLING (test code = 703-9) Present A POLYCHROMASIA (test code = 70740-2) 2+ See_Comment [Automated message] The system which generated this result transmitted reference range: 2+. The reference range was not used to interpret this result as normal/abnormal. Lab Interpretation (test code = 80340-0) Abnormal [facility] WITH [id number] 22:43:43* Test Item Value Reference Range Interpretation Comme nts WBC (test code = 6690-2) 20.84 See_Comment H [Automated message] The system which generated this result transmitted reference range: 4.20 - 10.70 10*3/?L. The reference range was not used to interpret this result as normal/abnormal. RBC (test code = 789-8) 3.12 See_Comment L [Automated message] The system which generated this result transmitted reference range: 4.26 - 5.52 10*6/?L. The reference range was not used to interpret this result as normal/abnormal. HGB (test code = 718-7) 8.5 g/dL 12.2-16.4 L HCT (test code = 4544-3) 28.3 % 38.4-49.3 L MCV (test code = 787-2) 90.7 fL 81.7-95.6 MCH (test code = 785-6) 27.2 pg 26.1-32.7 MCHC (test code = 786-4) 30.0 g/dL 31.2-35.0 L RDW-SD (test code = 81270-6) 63.2 fL 38.5-51.6 H RDW-CV (test code = 788-0) 19.8 % 12.1-15.4 H PLT (test code = 777-3) 232 See_Comment [Automated message] The system which generated this result transmitted reference range: 150 - 328 10*3/?L. The reference range was not used to interpret this result as normal/abnormal. MPV (test code = 79740-1) 10.5 fL 9.8-13.0 NRBC/100 WBC (test code = 5526129640) 0.2 See_Comment [Automated message] The system which generated this result transmitted reference range: 0.0 - 10.0 /100 WBCs. The reference range was not used to interpret this result as normal/abnormal. NRBC x10^3 (test code = 9598283658) 0.05 See_Comment [Automated message] The system which generated this result transmitted reference range: 10*3/?L. The reference range was not used to interpret this result as normal/abnormal. GRAN MAT (NEUT) % (test code = 770-8) 88.3 % IMM GRAN % (test code = 5106348609) 4.10 % LYMPH % (test code = 736-9) 1.7 % MONO % (test code = 5905-5) 5.7 % EOS % (test code = 713-8) 0.0 % BASO % (test code = 706-2) 0.2 % GRAN MAT x10^3(ANC) (test code = 3558452443) 18.40 10*3/uL 1.99-6.95 H IMM GRAN x10^3 (test code = 2521448278) 0.85 10*3/uL 0.00-0.06 H LYMPH x10^3 (test code = 731-0) 0.35 10*3/uL 1.09-3.23 L MONO x10^3 (test code = 742-7) 1.19 10*3/uL 0.36-1.02 H EOS x10^3 (test code = 711-2) 0.06-0.53 L BASO x10^3 (test code = 704-7) 0.05 10*3/uL 0.01-0.09 POLYCHROMASIA (test code = 37693-4) 2+ See_Comment [Automated message] The system which generated this result transmitted reference range: 2+. The reference range was not used to interpret this result as normal/abnormal. Lab Interpretation (test code = 08297-1) Abnormal [facility] METABOLIC PANEL (NA, K, CL, CO2, GLUCOSE, BUN, CREATININE, CA)2023-03-13 22:18:15* Test Item Value Reference Range Interpretation Comme nts NA (test code = 6710643361) 135 mmol/L 135-145 K (test code = 7134591908) 5.3 mmol/L 3.5-5.0 H CL (test code = 3527057844) 100 mmol/L 98-108 CO2 TOTAL (test code = 9488588024) 26 mmol/L 23-31 AGAP (test code = 8943673617) 9 2-16 BUN (test code = 4801537231) 33 mg/dL 7-23 H GLUCOSE (test code = 0910501616) 134 mg/dL 70-110 H CREATININE (test code = 1626435899) 6.90 mg/dL 0.60-1.25 H CALCIUM (test code = 4058759456) 8.7 mg/dL 8.6-10.6 eGFR (test code = 3920840933) 8.0 mL/min/1.73m2 DANE (test code = DANE) Association of Glomerular Filtration Rate (GFR) and Staging of Kidney Disease* + --+ --+ ------+| GFR (mL/min/1.73 m2) ?| With Kidney Damage ?| ?Without Kidney Damage+ --------+ --------+ +| ?>90 ?| ?Stage one ?| ? Normal ?+ ---+ ---+ -------+| ?60-89 ?| ?Stage two ?| ? Decreased GFR ? + --+ --+ ------+| ?30-59 ?| ?Stage three ?| ? Stage three ? + --+ --+ ------+| ?15-29 ?| ?Stage four ? | ? Stage four ?+ ---+ ---+ -------+| ?<15 (or dialysis) ? ?| ?Stage five ? | ? Stage five ?+ ---+ ---+ -------+ *Each stage assumes the associated GFR level has been in effect for at least three months. ?Stages 1 to 5, with or without kidney disease, indicate chronic kidney disease. Notes: Determination of stages one and two (with eGFR >59mL/min/1.73 m2) requires estimation of kidney damage for at least three months as defined by structural or functional abnormalities of the kidney, manifested by either:Pathological abnormalities or Markers of kidney damage (including abnormalities in the composition of the blood or urine or abnormalities in imaging tests). Lab Interpretation (test code = 51653-0) [facility] 22:18:15* Test Item Value Reference Range Interpretation Comme nts MAGNESIUM (test code = 0996163774) 2.3 mg/dL 1.7-2.4 Lab Interpretation (test cod e = 24117-4) Normal [facility] 22:16:55* Test Item Value Reference Range Interpretation Comme nts APTT Patient (test code = 3173-2) 38 See_Comment H [Automated [employer]] The system which generated this result transmitted reference range: 26 - 36 Seconds. The reference range was not used to interpret this result as normal/abnormal. Lab Interpretation (test code = 13761-7) [facility]normal [facility] 12:49:22* Test Item Value Reference Range Interpretation Comme nts Fibrinogen (test code = 8891537232) 931 mg/dL 167-453 H Lab Interpretation (test cod e = 25038-7) [facility]normal [facility] / [id number] 12:32:29* Test Item Value Reference Range Interpretation Comme nts PROTIME PATIENT (test code = 5964-2) 13.2 See_Comment H [Automated [employer]] The system which generated this result transmitted reference range: 10.1 - 12.6 Seconds. The reference range was not used to interpret this result as normal/abnormal. INR (test code = 6301-6) 1.2 Normal INR <1.1; Warfarin Therapeutic range 2.0 to 3.0 or 2.5 to 3.5, depending upon the indications. Lab Interpretation (test code = 93622-0) Abnormal [facility] WITH [id number] 09:23:18* Test Item Value Reference Range Interpretation Comme nts WBC (test code = 6690-2) 25.43 See_Comment H [Automated message] The system which generated this result transmitted reference range: 4.20 - 10.70 10*3/?L. The reference range was not used to interpret this result as normal/abnormal. RBC (test code = 789-8) 3.66 See_Comment L [Automated message] The system which generated this result transmitted reference range: 4.26 - 5.52 10*6/?L. The reference range was not used to interpret this result as normal/abnormal. HGB (test code = 718-7) 9.8 g/dL 12.2-16.4 L HCT (test code = 4544-3) 32.4 % 38.4-49.3 L MCV (test code = 787-2) 88.5 fL 81.7-95.6 MCH (test code = 785-6) 26.8 pg 26.1-32.7 MCHC (test code = 786-4) 30.2 g/dL 31.2-35.0 L RDW-SD (test code = 09134-3) 61.5 fL 38.5-51.6 H RDW-CV (test code = 788-0) 19.8 % 12.1-15.4 H PLT (test code = 777-3) 344 See_Comment H [Automated message] The system which generated this result transmitted reference range: 150 - 328 10*3/?L. The reference range was not used to interpret this result as normal/abnormal. MPV (test code = 17549-2) 9.9 fL 9.8-13.0 NRBC/100 WBC (test code = 1637562177) 0.4 See_Comment [Automated message] The system which generated this result transmitted reference range: 0.0 - 10.0 /100 WBCs. The reference range was not used to interpret this result as normal/abnormal. NRBC x10^3 (test code = 7064220049) 0.11 See_Comment [Automated message] The system which generated this result transmitted reference range: 10*3/?L. The reference range was not used to interpret this result as normal/abnormal. GRAN MAT (NEUT) % (test code = 770-8) 83.7 % IMM GRAN % (test code = 1089398223) 5.40 % LYMPH % (test code = 736-9) 2.2 % MONO % (test code = 5905-5) 7.6 % EOS % (test code = 713-8) 0.3 % BASO % (test code = 706-2) 0.8 % GRAN MAT x10^3(ANC) (test code = 5329212981) 21.26 10*3/uL 1.99-6.95 H IMM GRAN x10^3 (test code = 0153523058) 1.38 10*3/uL 0.00-0.06 H LYMPH x10^3 (test code = 731-0) 0.57 10*3/uL 1.09-3.23 L MONO x10^3 (test code = 742-7) 1.94 10*3/uL 0.36-1.02 H EOS x10^3 (test code = 711-2) 0.08 10*3/uL 0.06-0.53 BASO x10^3 (test code = 704-7) 0.20 10*3/uL 0.01-0.09 H Lab Interpretation (test code = 91460-1) Abnormal [facility] [id number] 09:08:57* Test Item Value Reference Range Interpretation Comme nts TROPONIN I (test code = 4126203382) 0.511 ng/mL <=0.034 H DANE (test code = DANE) Reference (Normal) Range (defined by the 99th percentile reference limit): <= 0.034 ng/mL Note: Cardiac troponin begins to rise 3-4 hours after the onset of ischemia. Repeat in 4-6 hours if the sample was drawn within 3-4 hours of the onset of the symptom and found normal. Diagnosis of myocardial injury is made with acute changes in cTn concentrations with at least one serial sample above the 99th percentile upper reference limit (URL), taken together with the patient's clinical presentation. Biotin has been reported to cause a negative bias, interpret results relative to patient's use of biotin. Lab Interpretation (test code = 42692-9) Abnormal [facility] METABOLIC PANEL (NA, K, CL, CO2, GLUCOSE, BUN, CREATININE, CA)2023-03-13 08:59:36* Test Item Value Reference Range Interpretation Comme nts NA (test code = 1127666461) 135 mmol/L 135-145 K (test code = 8505566194) 4.9 mmol/L 3.5-5.0 CL (test code = 9060916942) 100 mmol/L 98-108 CO2 TOTAL (test code = 3811656404) 26 mmol/L 23-31 AGAP (test code = 0905579566) 9 2-16 BUN (test code = 1416617376) 29 mg/dL 7-23 H GLUCOSE (test code = 4201664360) 148 mg/dL 70-110 H CREATININE (test code = 4629034924) 6.20 mg/dL 0.60-1.25 H CALCIUM (test code = 4458980750) 8.7 mg/dL 8.6-10.6 eGFR (test code = 9184922071) 9.0 mL/min/1.73m2 DANE (test code = DANE) Association of Glomerular Filtration Rate (GFR) and Staging of Kidney Disease* + --+ --+ ------+| GFR (mL/min/1.73 m2) ?| With Kidney Damage ?| ?Without Kidney Damage+ --------+ --------+ +| ?>90 ?| ?Stage one ?| ? Normal ?+ ---+ ---+ -------+| ?60-89 ?| ?Stage two ?| ? Decreased GFR ? + --+ --+ ------+| ?30-59 ?| ?Stage three ?| ? Stage three ? + --+ --+ ------+| ?15-29 ?| ?Stage four ? | ? Stage four ?+ ---+ ---+ -------+| ?<15 (or dialysis) ? ?| ?Stage five ? | ? Stage five ?+ ---+ ---+ -------+ *Each stage assumes the associated GFR level has been in effect for at least three months. ?Stages 1 to 5, with or without kidney disease, indicate chronic kidney disease. Notes: Determination of stages one and two (with eGFR >59mL/min/1.73 m2) requires estimation of kidney damage for at least three months as defined by structural or functional abnormalities of the kidney, manifested by either:Pathological abnormalities or Markers of kidney damage (including abnormalities in the composition of the blood or urine or abnormalities in imaging tests). Lab Interpretation (test code = 03729-9) [facility]normal [facility] 08:59:36* Test Item Value Reference Range Interpretation Comme nts MAGNESIUM (test code = 6668419270) 2.2 mg/dL 1.7-2.4 Lab Interpretation (test cod e = 59944-2) Normal [facility] 08:59:36* Test Item Value Reference Range Interpretation Comme nts PHOSPHORUS (test code = 6359665703) 5.7 mg/dL 2.5-5.0 H Lab Interpretation (test cod e = 25843-6) Abnormal [facility] Panel 20 + Lactic [id number] 08:39:59* Test Item Value Reference Range Interpretation Comme nts PH (test code = 2) 7.24 7.35-7.45 L PCO2 (test code = 0097243771) 58 See_Comment H [Automated messa ge] The system which generated this result transmitted reference range: 35 - 45 mmHg. The reference range was not used to interpret this result as normal/abnormal. PO2 (test code = 1914996978) 115 See_Comment H [Automated messa ge] The system which generated this result transmitted reference range: 80 - 100 mmHg. The reference range was not used to interpret this result as normal/abnormal. HCO3 (test code = 5051539766) 24 See_Comment [Automated messa ge] The system which generated this result transmitted reference range: 22 - 26 mEq/L. The reference range was not used to interpret this result as normal/abnormal. BE (test code = 9894716876) -3.5 See_Comment L [Automated messa ge] The system which generated this result transmitted reference range: -3.0 - 3.0 mEq/L. The reference range was not used to interpret this result as normal/abnormal. THB (test code = 2122727330) 11.3 g/dL 13.5-18.0 L %O2HB (test code = 0910044335) 97.2 % 94.0-99.0 %COHB ART (test code = 1020487426) 0.7 % 0.0-1.5 %METHB ART (test code = 4016687379) 0.1 % 0.4-1.5 L VOL%O2 ART (test code = 8362360739) 15.6 % 15.0-23.0 NA (test code = 5041113450) 136 mmol/L 135-145 K+ (test code = 5440483658) 4.8 mmol/L 3.5-5.0 AC CA IONZ (test code = 7461941868) 4.80 mg/dL 4.50-5.30 GLUCOSE (test code = 9943427071) 146 mg/dL 70-110 H LACTIC ACID (test code = 4866986449) 1.73 mmol/L 0.50-2.20 QUES Lab Interpretation (test code = 66816-9) Abnormal [facility] WITH [id number] 00:14:28* Test Item Value Reference Range Interpretation Comme nts WBC (test code = 6690-2) 23.11 See_Comment H [Automated message] The system which generated this result transmitted reference range: 4.20 - 10.70 10*3/?L. The reference range was not used to interpret this result as normal/abnormal. RBC (test code = 789-8) 3.47 See_Comment L [Automated message] The system which generated this result transmitted reference range: 4.26 - 5.52 10*6/?L. The reference range was not used to interpret this result as normal/abnormal. HGB (test code = 718-7) 9.6 g/dL 12.2-16.4 L HCT (test code = 4544-3) 30.9 % 38.4-49.3 L MCV (test code = 787-2) 89.0 fL 81.7-95.6 MCH (test code = 785-6) 27.7 pg 26.1-32.7 MCHC (test code = 786-4) 31.1 g/dL 31.2-35.0 L RDW-SD (test code = 28437-5) 61.1 fL 38.5-51.6 H RDW-CV (test code = 788-0) 19.4 % 12.1-15.4 H PLT (test code = 777-3) 357 See_Comment H [Automated message] The system which generated this result transmitted reference range: 150 - 328 10*3/?L. The reference range was not used to interpret this result as normal/abnormal. MPV (test code = 28908-1) 10.3 fL 9.8-13.0 NRBC/100 WBC (test code = 5515762259) 0.3 See_Comment [Automated message] The system which generated this result transmitted reference range: 0.0 - 10.0 /100 WBCs. The reference range was not used to interpret this result as normal/abnormal. NRBC x10^3 (test code = 3126073138) 0.07 See_Comment [Automated message] The system which generated this result transmitted reference range: 10*3/?L. The reference range was not used to interpret this result as normal/abnormal. GRAN MAT (NEUT) % (test code = 770-8) 76.1 % IMM GRAN % (test code = 5900419659) 4.30 % LYMPH % (test code = 736-9) 4.7 % MONO % (test code = 5905-5) 13.9 % EOS % (test code = 713-8) 0.4 % BASO % (test code = 706-2) 0.6 % GRAN MAT x10^3(ANC) (test code = 9612054319) 17.56 10*3/uL 1.99-6.95 H IMM GRAN x10^3 (test code = 5357006526) 1.00 10*3/uL 0.00-0.06 H LYMPH x10^3 (test code = 731-0) 1.09 10*3/uL 1.09-3.23 MONO x10^3 (test code = 742-7) 3.22 10*3/uL 0.36-1.02 H EOS x10^3 (test code = 711-2) 0.09 10*3/uL 0.06-0.53 BASO x10^3 (test code = 704-7) 0.15 10*3/uL 0.01-0.09 H JORDY CELLS (test code = 7790-9) 2+ See_Comment A [Automated message] The system which generated this result transmitted reference range: (none). The reference range was not used to interpret this result as normal/abnormal. POLYCHROMASIA (test code = 08789-2) 2+ See_Comment [Automated message] The system which generated this result transmitted reference range: 2+. The reference range was not used to interpret this result as normal/abnormal. Lab Interpretation (test code = 24821-5) Abnormal [facility]ball[facility] [id number] 00:03:04* Test Item Value Reference Range Interpretation Comme nts TROPONIN I (test code = 5991620438) 0.612 ng/mL <=0.034 H DANE (test code = DANE) Reference (Normal) Range (defined by the 99th percentile reference limit): <= 0.034 ng/mL Note: Cardiac troponin begins to rise 3-4 hours after the onset of ischemia. Repeat in 4-6 hours if the sample was drawn within 3-4 hours of the onset of the symptom and found normal. Diagnosis of myocardial injury is made with acute changes in cTn concentrations with at least one serial sample above the 99th percentile upper reference limit (URL), taken together with the patient's clinical presentation. Biotin has been reported to cause a negative bias, interpret results relative to patient's use of biotin. Lab Interpretation (test code = 02937-5) Abnormal [facility]ball[facility]thrombin Time / [id number] 23:51:26* Test Item Value Reference Range Interpretation Comme nts PROTIME PATIENT (test code = 5964-2) 13.3 See_Comment H [Automated messa ge] The system which generated this result transmitted reference range: 10.1 - 12.6 Seconds. The reference range was not used to interpret this result as normal/abnormal. INR (test code = 6301-6) 1.2 Normal INR <1.1; Warfarin Therapeutic range 2.0 to 3.0 or 2.5 to 3.5, depending upon the indications. Lab Interpretation (test code = 00691-3) Abnormal [facility] Confirmation (Lab Only)2023-03-12 19:25:04* Test Item Value Reference Range Interpretation Comme nts ABO/Rh Confirmation (test co de = 4487094899) A POS [facility]ballType and Screen - ONCE [id number] 19:24:54 * Test Item Value Reference Range Interpretation Comme nts ABO & RH (test code = 20) A POS IAT (test code = 1185) NEGATIVE [facility]ball[facility] WITH [id number] 17:03:40* Test Item Value Reference Range Interpretation Comme nts WBC (test code = 6690-2) 23.43 See_Comment H [Automated message] The system which generated this result transmitted reference range: 4.20 - 10.70 10*3/?L. The reference range was not used to interpret this result as normal/abnormal. RBC (test code = 789-8) 3.65 See_Comment L [Automated message] The system which generated this result transmitted reference range: 4.26 - 5.52 10*6/?L. The reference range was not used to interpret this result as normal/abnormal. HGB (test code = 718-7) 9.9 g/dL 12.2-16.4 L HCT (test code = 4544-3) 32.7 % 38.4-49.3 L MCV (test code = 787-2) 89.6 fL 81.7-95.6 MCH (test code = 785-6) 27.1 pg 26.1-32.7 MCHC (test code = 786-4) 30.3 g/dL 31.2-35.0 L RDW-SD (test code = 59661-6) 62.4 fL 38.5-51.6 H RDW-CV (test code = 788-0) 19.6 % 12.1-15.4 H PLT (test code = 777-3) 356 See_Comment H [Automated message] The system which generated this result transmitted reference range: 150 - 328 10*3/?L. The reference range was not used to interpret this result as normal/abnormal. MPV (test code = 12082-0) 10.0 fL 9.8-13.0 NRBC/100 WBC (test code = 3360662983) 0.2 See_Comment [Automated message] The system which generated this result transmitted reference range: 0.0 - 10.0 /100 WBCs. The reference range was not used to interpret this result as normal/abnormal. NRBC x10^3 (test code = 8934065093) 0.04 See_Comment [Automated message] The system which generated this result transmitted reference range: 10*3/?L. The reference range was not used to interpret this result as normal/abnormal. GRAN MAT (NEUT) % (test code = 770-8) 75.9 % IMM GRAN % (test code = 3527911655) 4.10 % LYMPH % (test code = 736-9) 5.5 % MONO % (test code = 5905-5) 13.4 % EOS % (test code = 713-8) 0.5 % BASO % (test code = 706-2) 0.6 % GRAN MAT x10^3(ANC) (test code = 2480639141) 17.80 10*3/uL 1.99-6.95 H IMM GRAN x10^3 (test code = 5770297076) 0.95 10*3/uL 0.00-0.06 H LYMPH x10^3 (test code = 731-0) 1.29 10*3/uL 1.09-3.23 MONO x10^3 (test code = 742-7) 3.15 10*3/uL 0.36-1.02 H EOS x10^3 (test code = 711-2) 0.11 10*3/uL 0.06-0.53 BASO x10^3 (test code = 704-7) 0.13 10*3/uL 0.01-0.09 H Lab Interpretation (test code = 86938-6) Abnormal [facility] [id number] 16:52:41* Test Item Value Reference Range Interpretation Comme nts TROPONIN I (test code = 0687627876) 0.752 ng/mL <=0.034 H DANE (test code = DANE) Reference (Normal) Range (defined by the 99th percentile reference limit): <= 0.034 ng/mL Note: Cardiac troponin begins to rise 3-4 hours after the onset of ischemia. Repeat in 4-6 hours if the sample was drawn within 3-4 hours of the onset of the symptom and found normal. Diagnosis of myocardial injury is made with acute changes in cTn concentrations with at least one serial sample above the 99th percentile upper reference limit (URL), taken together with the patient's clinical presentation. Biotin has been reported to cause a negative bias, interpret results relative to patient's use of biotin. Lab Interpretation (test code = 62856-2) Abnormal [facility]ballProthrombin Time / INR - 6 hours after 4- factor PCC (KCENTRA) [id number] 16:40:58* Test Item Value Reference Range Interpretation Comme [facility] PROTIME PATIENT (test code = 5964-2) 15.4 See_Comment H [Automated [employer]] The system which generated this result transmitted reference range: 10.1 - 12.6 Seconds. The reference range was not used to interpret this result as normal/abnormal. INR (test code = 6301-6) 1.3 Normal INR <1.1; Warfarin Therapeutic range 2.0 to 3.0 or 2.5 to 3.5, depending upon the indications. Lab Interpretation (test code = 88554-5) Abnormal [facility]ball[facility]thrombin Time / INR - 30 minutes after 4- factor (KCENTRA) [id number] 11:03:18* Test Item Value Reference Range Interpretation Comme [facility] PROTIME PATIENT (test code = 5964-2) 20.1 See_Comment H [Automated [employer]] The system which generated this result transmitted reference range: 10.1 - 12.6 Seconds. The reference range was not used to interpret this result as normal/abnormal. INR (test code = 6301-6) 1.7 Normal INR <1.1; Warfarin Therapeutic range 2.0 to 3.0 or 2.5 to 3.5, depending upon the indications. Lab Interpretation (test code = 98869-3) Abnormal [facility]ball[facility] [id number] 07:47:54* Test Item Value Reference Range Interpretation Comme [facility] TROPONIN I (test code = 7300050045) 0.621 ng/mL <=0.034 H DANE (test code = DANE) Reference (Normal) Range (defined by the 99th percentile reference limit): <= 0.034 ng/mL Note: Cardiac troponin begins to rise 3-4 hours after the onset of ischemia. Repeat in 4-6 hours if the sample was drawn within 3-4 hours of the onset of the symptom and found normal. Diagnosis of myocardial injury is made with acute changes in cTn concentrations with at least one serial sample above the 99th percentile upper reference limit (URL), taken together with the patient's clinical presentation. Biotin has been reported to cause a negative bias, interpret results relative to patient's use of biotin. Lab Interpretation (test code = 80648-6) Abnormal [facility] WITH [id number] 07:36:35* Test Item Value Reference Range Interpretation Comme nts WBC (test code = 6690-2) 20.45 See_Comment H [Automated message] The system which generated this result transmitted reference range: 4.20 - 10.70 10*3/?L. The reference range was not used to interpret this result as normal/abnormal. RBC (test code = 789-8) 3.73 See_Comment L [Automated message] The system which generated this result transmitted reference range: 4.26 - 5.52 10*6/?L. The reference range was not used to interpret this result as normal/abnormal. HGB (test code = 718-7) 10.3 g/dL 12.2-16.4 L HCT (test code = 4544-3) 33.0 % 38.4-49.3 L MCV (test code = 787-2) 88.5 fL 81.7-95.6 MCH (test code = 785-6) 27.6 pg 26.1-32.7 MCHC (test code = 786-4) 31.2 g/dL 31.2-35.0 RDW-SD (test code = 34067-1) 60.9 fL 38.5-51.6 H RDW-CV (test code = 788-0) 19.5 % 12.1-15.4 H PLT (test code = 777-3) 343 See_Comment H [Automated message] The system which generated this result transmitted reference range: 150 - 328 10*3/?L. The reference range was not used to interpret this result as normal/abnormal. MPV (test code = 65704-2) 10.1 fL 9.8-13.0 NRBC/100 WBC (test code = 6367236555) 0.1 See_Comment [Automated message] The system which generated this result transmitted reference range: 0.0 - 10.0 /100 WBCs. The reference range was not used to interpret this result as normal/abnormal. NRBC x10^3 (test code = 0040955490) 0.03 See_Comment [Automated message] The system which generated this result transmitted reference range: 10*3/?L. The reference range was not used to interpret this result as normal/abnormal. GRAN MAT (NEUT) % (test code = 770-8) 77.1 % IMM GRAN % (test code = 4332474057) 4.00 % LYMPH % (test code = 736-9) 5.1 % MONO % (test code = 5905-5) 12.6 % EOS % (test code = 713-8) 0.5 % BASO % (test code = 706-2) 0.7 % GRAN MAT x10^3(ANC) (test code = 3305325497) 15.75 10*3/uL 1.99-6.95 H IMM GRAN x10^3 (test code = 9010874199) 0.82 10*3/uL 0.00-0.06 H LYMPH x10^3 (test code = 731-0) 1.05 10*3/uL 1.09-3.23 L MONO x10^3 (test code = 742-7) 2.58 10*3/uL 0.36-1.02 H EOS x10^3 (test code = 711-2) 0.11 10*3/uL 0.06-0.53 BASO x10^3 (test code = 704-7) 0.14 10*3/uL 0.01-0.09 H Lab Interpretation (test code = 67897-3) [facility]TOTAL CHOLESTEROL, TRIGLYCERIDES, HDL)2023-03-12 07:36:15* Test Item Value Reference Range Interpretation Comme nts CHOL (test code = 8707157100) 112 mg/dL 120-200 L HDL (test code = 3424883169) 28 mg/dL >=40 L HDLC RATIO (test code = 3017690242) 4.0 <=5.0 TRIG (test code = 2361017959) 135 mg/dL 30-170 LDL CHOL (test code = 33789-9) 57 mg/dL <=160 VLDL (test code = 0778369448) 27 mg/dL 5-60 Lab Interpretation (test cod e = 48800-5) [facility]normal [facility] (73325[facility] (ALB,T.PRO,BILI T,BU/BC,ALT,AST,ALK PHOS)2023-03-12 07:36:15* Test Item Value Reference Range Interpretation Comme nts TOTAL BILI (test code = 2472253108) 1.9 mg/dL 0.1-1.1 H BILI UNCON (test code = 5936029239) 0.3 mg/dL 0.1-1.1 BILI CONJ (test code = 6735297954) 0.1 mg/dL 0.0-0.3 T PROTEIN (test code = 7546204465) 6.4 g/dL 6.3-8.2 ALBUMIN (test code = 6257363325) 3.3 g/dL 3.5-5.0 L ALK PHOS (test code = 9925489087) 174 U/L 34-122 H ALTv (test code = 1742-6) 68 U/L 5-50 H AST(SGOT) (test code = 2268603807) 80 U/L 13-40 H Lab Interpretation (test cod e = 14325-6) [facility]normal [facility]23-[facility] 07:36:15* Test Item Value Reference Range Interpretation Comme nts MAGNESIUM (test code = 5651555538) 2.2 mg/dL 1.7-2.4 Lab Interpretation (test cod e = 29479-8) Normal [facility] (NA, K, CL, CO2, GLUCOSE, BUN, CREATININE, CA)2023-03-12 07:36:14* Test Item Value Reference Range Interpretation Comme nts NA (test code = 6037143168) 135 mmol/L 135-145 K (test code = 0536005418) 4.2 mmol/L 3.5-5.0 CL (test code = 9308441893) 97 mmol/L 98-108 L CO2 TOTAL (test code = 8728889074) 26 mmol/L 23-31 AGAP (test code = 6303188678) 12 2-16 BUN (test code = 5984247483) 29 mg/dL 7-23 H GLUCOSE (test code = 6945310137) 128 mg/dL 70-110 H CREATININE (test code = 7206377977) 6.00 mg/dL 0.60-1.25 H CALCIUM (test code = 2347847622) 8.7 mg/dL 8.6-10.6 eGFR (test code = 9669378013) 9.4 mL/min/1.73m2 DANE (test code = DANE) Association of Glomerular Filtration Rate (GFR) and Staging of Kidney Disease* + --+ --+ ------+| GFR (mL/min/1.73 m2) ?| With Kidney Damage ?| ?Without Kidney Damage+ --------+ --------+ +| ?>90 ?| ?Stage one ?| ? Normal ?+ ---+ ---+ -------+| ?60-89 ?| ?Stage two ?| ? Decreased GFR ? + --+ --+ ------+| ?30-59 ?| ?Stage three ?| ? Stage three ? + --+ --+ ------+| ?15-29 ?| ?Stage four ? | ? Stage four ?+ ---+ ---+ -------+| ?<15 (or dialysis) ? ?| ?Stage five ? | ? Stage five ?+ ---+ ---+ -------+ *Each stage assumes the associated GFR level has been in effect for at least three months. ?Stages 1 to 5, with or without kidney disease, indicate chronic kidney disease. Notes: Determination of stages one and two (with eGFR >59mL/min/1.73 m2) requires estimation of kidney damage for at least three months as defined by structural or functional abnormalities of the kidney, manifested by either:Pathological abnormalities or Markers of kidney damage (including abnormalities in the composition of the blood or urine or abnormalities in imaging tests). Lab Interpretation (test code = 49387-8) Abnormal [facility]ballProthrombin Time / [id number] 07:25:37* Test Item Value Reference Range Interpretation Comme [facility] PROTIME PATIENT (test code = 5964-2) See_Comment H [Automated messa ge] The system which generated this result transmitted reference range: 10.1 - 12.6 Seconds. The reference range was not used to interpret this result as normal/abnormal. INR (test code = 6301-6) HH Normal INR <1.1; Warfarin Therapeutic range 2.0 to 3.0 or 2.5 to 3.5, depending upon the indications. Lab Interpretation (test code = 21667-8) Abnormal [facility]ball[facility]IBRINOGEN2023-09-02 07:25:37* Test Item Value Reference Range Interpretation Comme [facility] Fibrinogen (test code = 5400867657) 959 mg/dL 167-453 H Lab Interpretation (test cod e = 89343-6) Abnormal [facility]ball[facility] Panel 20 + Lactic [id number] 07:15:04* Test Item Value Reference Range Interpretation Comme [facility] PH (test code = 2) 7.34 7.35-7.45 L PCO2 (test code = 7660376067) 51 See_Comment H [Automated messa ge] The system which generated this result transmitted reference range: 35 - 45 mmHg. The reference range was not used to interpret this result as normal/abnormal. PO2 (test code = 6564912932) 116 See_Comment H [Automated messa ge] The system which generated this result transmitted reference range: 80 - 100 mmHg. The reference range was not used to interpret this result as normal/abnormal. HCO3 (test code = 4557157758) 26 See_Comment [Automated messa ge] The system which generated this result transmitted reference range: 22 - 26 mEq/L. The reference range was not used to interpret this result as normal/abnormal. BE (test code = 4274995663) 0.0 See_Comment [Automated messa ge] The system which generated this result transmitted reference range: -3.0 - 3.0 mEq/L. The reference range was not used to interpret this result as normal/abnormal. THB (test code = 8344338680) 10.7 g/dL 13.5-18.0 L %O2HB (test code = 6858645879) 97.1 % 94.0-99.0 %COHB ART (test code = 4444205899) 0.9 % 0.0-1.5 %METHB ART (test code = 1821801191) 0.1 % 0.4-1.5 L VOL%O2 ART (test code = 2272709764) 14.8 % 15.0-23.0 L NA (test code = 3065453347) 135 mmol/L 135-145 K+ (test code = 5991636508) 4.1 mmol/L 3.5-5.0 AC CA IONZ (test code = 7102406148) 4.60 mg/dL 4.50-5.30 GLUCOSE (test code = 5583090779) 122 mg/dL 70-110 H LACTIC ACID (test code = 9015379497) 1.82 mmol/L 0.50-2.20 QUES Lab Interpretation (test code = 73639-9) Abnormal [facility] W/PLT COUNT & AUTO [id number] 05:44:18* Test Item Value Reference Range Interpretation Comme nts WHITE BLOOD CELL COUNT (BEAK ER) (test code = 775) 10.0 K/ L 3.5-10.5 RED BLOOD CELL COUNT (BEAKER ) (test code = 761) 5.15 M/ L 4.63-6.08 HEMOGLOBIN (BEAKER) (test co de = 410) 13.5 GM/DL 13.7-17.5 L HEMATOCRIT (BEAKER) (test co de = 411) 44.5 % 40.1-51.0 MEAN CORPUSCULAR VOLUME (USMAN KER) (test code = 753) 86 fL 79-92 MEAN CORPUSCULAR HEMOGLOBIN (BEAKER) (test code = 751) 26.2 pg 25.7-32.2 MEAN CORPUSCULAR HEMOGLOBIN CONC (BEAKER) (test code = 752) 30.3 GM/DL 32.3-36.5 L RED CELL DISTRIBUTION WIDTH (BEAKER) (test code = 412) 18.6 % 11.6-14.4 H PLATELET COUNT (BEAKER) (zaki t code = 756) 135 K/CU MM 150-450 L MEAN PLATELET VOLUME (BEAKER ) (test code = 754) 10.0 fL 9.4-12.4 NUCLEATED RED BLOOD CELLS (BEAKER) (test code = 413) 0 /100 WBC 0-0 NEUTROPHILS RELATIVE PERCENT (BEAKER) (test code = 429) 79 % LYMPHOCYTES RELATIVE PERCENT (BEAKER) (test code = 430) 6 % MONOCYTES RELATIVE PERCENT (BEAKER) (test code = 431) 12 % EOSINOPHILS RELATIVE PERCENT (BEAKER) (test code = 432) 1 % BASOPHILS RELATIVE PERCENT (BEAKER) (test code = 437) 1 % NEUTROPHILS ABSOLUTE COUNT (BEAKER) (test code = 670) 7.95 K/ L 1.78-5.38 H LYMPHOCYTES ABSOLUTE COUNT (BEAKER) (test code = 414) 0.57 K/ L 1.32-3.57 L MONOCYTES ABSOLUTE COUNT (BE VAL) (test code = 415) 1.24 K/ L 0.30-0.82 H EOSINOPHILS ABSOLUTE COUNT (BEAKER) (test code = 416) 0.12 K/ L 0.04-0.54 BASOPHILS ABSOLUTE COUNT (BE VAL) (test code = 417) 0.05 K/ L 0.01-0.08 IMMATURE GRANULOCYTES-RELATI VE PERCENT (BEAKER) (test code = 2801) 1.00 % 0.00-1.00 BASIC METABOLIC [id number] 05:33:01* Test Item Value Reference Range Interpretation Comme nts SODIUM (BEAKER) (test code = 381) 136 meq/L 136-145 POTASSIUM (BEAKER) (test code = 379) 4.5 meq/L 3.5-5.1 CHLORIDE (BEAKER) (test code = 382) 97 meq/L 98-107 L CO2 (BEAKER) (test code = 355) 21 meq/L 22-29 L BLOOD UREA NITROGEN (BEAKER) (test code = 354) 51 mg/dL 7-21 H CREATININE (BEAKER) (test code = 358) 11.78 mg/dL 0.57-1.25 H GLUCOSE RANDOM (BEAKER) (test code = 652) 101 mg/dL 70-105 CALCIUM (BEAKER) (test code = 697) 9.2 mg/dL 8.4-10.2 EGFR (BEAKER) (test code = 1092) 4 mL/min/1.73 sq m Interpretation of eG FR values Stage Description Result G1 Normal or high >=90 G2 Mildly decreased 60-89 G3a Mildly to moderately 45-59 G3b Moderately to severely 30-44 G4 Severly decreased 15-29 G5 Kidney failure <15Reported eGFR is based on the CKD-EPI 2020 equation that does not use a race coefficientEstimated GFR is not as accurate as Creatinine Clearance in predicting glomerular filtration rate. Estimated GFR is not applicable for dialysis patients Contracts Paralegal ID - [id number] 05:29:51* Test Item Value Reference Range Interpretation Comme nts PHOSPHORUS (BEAKER) (test co de = 604) 7.3 mg/dL 2.3-4.7 H Contracts Paralegal ID - [id number] 05:29:50* Test Item Value Reference Range Interpretation Comme nts MAGNESIUM (BEAKER) (test cod e = 627) 1.9 mg/dL 1.6-2.6 Contracts Paralegal ID - MMPROTHROMBIN TIME/[id number] 05:11:25* Test Item Value Reference Range Interpretation Comme nts PROTIME (BEAKER) (test code = 759) 34.4 seconds 11.9-14.2 H INR (BEAKER) (test code = 370) 3.54 See_Comment [Automated DealPing] The system which generated this result transmitted reference range: <=5.90. The reference range was not used to interpret this result as normal/abnormal. RECOMMENDED COUMADIN/WARFARIN INR THERAPY RANGESSTANDARD DOSE: 2.0 - 3.0 Includes: PROPHYLAXIS for venous thrombosis, systemic embolization; TREATMENT for venous thrombosis and/or pulmonary embolus.HIGH RISK: Target INR is 2.5-3.5 for patients with mechanical heart valves.BASIC METABOLIC [id number] 07:50:42* Test Item Value Reference Range Interpretation Comme nts SODIUM (BEAKER) (test code = 381) 136 meq/L 136-145 POTASSIUM (BEAKER) (test code = 379) 4.0 meq/L 3.5-5.1 CHLORIDE (BEAKER) (test code = 382) 99 meq/L 98-107 CO2 (BEAKER) (test code = 355) 22 meq/L 22-29 BLOOD UREA NITROGEN (BEAKER) (test code = 354) 37 mg/dL 7-21 H CREATININE (BEAKER) (test code = 358) 9.99 mg/dL 0.57-1.25 H GLUCOSE RANDOM (BEAKER) (test code = 652) 96 mg/dL 70-105 CALCIUM (BEAKER) (test code = 697) 9.3 mg/dL 8.4-10.2 EGFR (BEAKER) (test code = 1092) 5 mL/min/1.73 sq m Interpretation of eG FR values Stage Description Result G1 Normal or high >=90 G2 Mildly decreased 60-89 G3a Mildly to moderately 45-59 G3b Moderately to severely 30-44 G4 Severly decreased 15-29 G5 Kidney failure <15Reported eGFR is based on the CKD-EPI 2020 equation that does not use a race coefficientEstimated GFR is not as accurate as Creatinine Clearance in predicting glomerular filtration rate. Estimated GFR is not applicable for dialysis patients Contracts Paralegal ID - EMOperator ID - [id number] 06:23:25* Test Item Value Reference Range Interpretation Comme nts PHOSPHORUS (BEAKER) (test co de = 604) 6.3 mg/dL 2.3-4.7 H Contracts Paralegal ID - [id number] 06:23:24* Test Item Value Reference Range Interpretation Comme nts MAGNESIUM (BEAKER) (test cod e = 627) 1.9 mg/dL 1.6-2.6 Contracts Paralegal ID - EMCBC W/PLT COUNT & AUTO [id number] 05:08:59* Test Item Value Reference Range Interpretation Comme nts WHITE BLOOD CELL COUNT (BEAK ER) (test code = 775) 9.2 K/ L 3.5-10.5 RED BLOOD CELL COUNT (BEAKER ) (test code = 761) 5.11 M/ L 4.63-6.08 HEMOGLOBIN (BEAKER) (test co de = 410) 13.3 GM/DL 13.7-17.5 L HEMATOCRIT (BEAKER) (test co de = 411) 44.1 % 40.1-51.0 MEAN CORPUSCULAR VOLUME (USMAN KER) (test code = 753) 86 fL 79-92 MEAN CORPUSCULAR HEMOGLOBIN (BEAKER) (test code = 751) 26.0 pg 25.7-32.2 MEAN CORPUSCULAR HEMOGLOBIN CONC (BEAKER) (test code = 752) 30.2 GM/DL 32.3-36.5 L RED CELL DISTRIBUTION WIDTH (BEAKER) (test code = 412) 18.6 % 11.6-14.4 H PLATELET COUNT (BEAKER) (zaki t code = 756) 152 K/CU MM 150-450 MEAN PLATELET VOLUME (BEAKER ) (test code = 754) 9.7 fL 9.4-12.4 NUCLEATED RED BLOOD CELLS (BEAKER) (test code = 413) 0 /100 WBC 0-0 NEUTROPHILS RELATIVE PERCENT (BEAKER) (test code = 429) 79 % LYMPHOCYTES RELATIVE PERCENT (BEAKER) (test code = 430) 6 % MONOCYTES RELATIVE PERCENT (BEAKER) (test code = 431) 13 % EOSINOPHILS RELATIVE PERCENT (BEAKER) (test code = 432) 1 % BASOPHILS RELATIVE PERCENT (BEAKER) (test code = 437) 1 % NEUTROPHILS ABSOLUTE COUNT (BEAKER) (test code = 670) 7.28 K/ L 1.78-5.38 H LYMPHOCYTES ABSOLUTE COUNT (BEAKER) (test code = 414) 0.51 K/ L 1.32-3.57 L MONOCYTES ABSOLUTE COUNT (BE VAL) (test code = 415) 1.21 K/ L 0.30-0.82 H EOSINOPHILS ABSOLUTE COUNT (BEAKER) (test code = 416) 0.07 K/ L 0.04-0.54 BASOPHILS ABSOLUTE COUNT (BE VAL) (test code = 417) 0.05 K/ L 0.01-0.08 IMMATURE GRANULOCYTES-RELATI VE PERCENT (BEAKER) (test code = 2801) 1.30 % 0.00-1.00 H PROTHROMBIN TIME/[id number] 05:05:09* Test Item Value Reference Range Interpretation Comme nts PROTIME (BEAKER) (test code = 759) 36.3 seconds 11.9-14.2 H INR (BEAKER) (test code = 370) 3.79 See_Comment [Automated DealPing] The system which generated this result transmitted reference range: <=5.90. The reference range was not used to interpret this result as normal/abnormal. RECOMMENDED COUMADIN/WARFARIN INR THERAPY RANGESSTANDARD DOSE: 2.0 - 3.0 Includes: PROPHYLAXIS for venous thrombosis, systemic embolization; TREATMENT for venous thrombosis and/or pulmonary embolus.HIGH RISK: Target INR is 2.5-3.5 for patients with mechanical heart valves.PROTHROMBIN TIME/[id number] 05:01:14* Test Item Value Reference Range Interpretation Comme nts PROTIME (BEAKER) (test code = 759) 36.8 seconds 11.9-14.2 H INR (BEAKER) (test code = 370) 4.03 See_Comment [Automated [employer]Ping] The system which generated this result transmitted reference range: <=5.90. The reference range was not used to interpret this result as normal/abnormal. RECOMMENDED COUMADIN/WARFARIN INR THERAPY RANGESSTANDARD DOSE: 2.0 - 3.0 Includes: PROPHYLAXIS for venous thrombosis, systemic embolization; TREATMENT for venous thrombosis and/or pulmonary embolus.HIGH RISK: Target INR is 2.5-3.5 for patients with mechanical heart valves.PROTHROMBIN TIME/[id number] 15:10:51* Test Item Value Reference Range Interpretation Comme nts PROTIME (BEAKER) (test code = 759) 34.0 seconds 11.9-14.2 H INR (BEAKER) (test code = 370) 3.49 See_Comment [Automated DealPing] The system which generated this result transmitted reference range: <=5.90. The reference range was not used to interpret this result as normal/abnormal. RECOMMENDED COUMADIN/WARFARIN INR THERAPY RANGESSTANDARD DOSE: 2.0 - 3.0 Includes: PROPHYLAXIS for venous thrombosis, systemic embolization; TREATMENT for venous thrombosis and/or pulmonary embolus.HIGH RISK: Target INR is 2.5-3.5 for patients with mechanical heart valves.[id number] 10:54:17* Test Item Value Reference Range Interpretation Comme nts PARTIAL THROMBOPLASTIN TIME (BEAKER) (test code = 760) > seconds 22.5-36.0 HH PROTHROMBIN TIME/[id number] 10:27:37* Test Item Value Reference Range Interpretation Comme nts PROTIME (BEAKER) (test code = 759) 31.7 seconds 11.9-14.2 H INR (BEAKER) (test code = 370) 3.19 See_Comment [StudyEgg] The system which generated this result transmitted reference range: <=5.90. The reference range was not used to interpret this result as normal/abnormal. RECOMMENDED COUMADIN/WARFARIN INR THERAPY RANGESSTANDARD DOSE: 2.0 - 3.0 Includes: PROPHYLAXIS for venous thrombosis, systemic embolization; TREATMENT for venous thrombosis and/or pulmonary embolus.HIGH RISK: Target INR is 2.5-3.5 for patients with mechanical heart valves.BASIC METABOLIC [id number] 05:06:30* Test Item Value Reference Range Interpretation Comme nts SODIUM (BEAKER) (test code = 381) 131 meq/L 136-145 L POTASSIUM (BEAKER) (test code = 379) 4.6 meq/L 3.5-5.1 Specimen slightl y hemolyzed CHLORIDE (BEAKER) (test code = 382) 95 meq/L 98-107 L CO2 (BEAKER) (test code = 355) 19 meq/L 22-29 L BLOOD UREA NITROGEN (BEAKER) (test code = 354) 47 mg/dL 7-21 H CREATININE (BEAKER) (test code = 358) 11.66 mg/dL 0.57-1.25 H Specimen slightl y hemolyzed GLUCOSE RANDOM (BEAKER) (test code = 652) 99 mg/dL 70-105 CALCIUM (BEAKER) (test code = 697) 8.5 mg/dL 8.4-10.2 EGFR (BEAKER) (test code = 1092) 4 mL/min/1.73 sq m Interpretation of eG FR values Stage Description Result G1 Normal or high >=90 G2 Mildly decreased 60-89 G3a Mildly to moderately 45-59 G3b Moderately to severely 30-44 G4 Severly decreased 15-29 G5 Kidney failure <15Reported eGFR is based on the CKD-EPI 2020 equation that does not use a race coefficientEstimated GFR is not as accurate as Creatinine Clearance in predicting glomerular filtration rate. Estimated GFR is not applicable for dialysis patients Contracts Paralegal ID - [id number] 05:02:45* Test Item Value Reference Range Interpretation Comme nts MAGNESIUM (BEAKER) (test code = 627) 1.8 mg/dL 1.6-2.6 Specimen sligh tly hemolyzed Contracts Paralegal ID - [id number] 05:02:45* Test Item Value Reference Range Interpretation Comme nts PHOSPHORUS (BEAKER) (test code = 604) 7.6 mg/dL 2.3-4.7 H Specimen sligh tly hemolyzed Contracts Paralegal ID - ADMINCBC W/PLT COUNT & AUTO [id number] 04:32:15* Test Item Value Reference Range Interpretation Comme nts WHITE BLOOD CELL COUNT (BEAK ER) (test code = 775) 9.5 K/ L 3.5-10.5 RED BLOOD CELL COUNT (BEAKER ) (test code = 761) 5.11 M/ L 4.63-6.08 HEMOGLOBIN (BEAKER) (test co de = 410) 13.6 GM/DL 13.7-17.5 L HEMATOCRIT (BEAKER) (test co de = 411) 43.9 % 40.1-51.0 MEAN CORPUSCULAR VOLUME (USMAN KER) (test code = 753) 86 fL 79-92 MEAN CORPUSCULAR HEMOGLOBIN (BEAKER) (test code = 751) 26.6 pg 25.7-32.2 MEAN CORPUSCULAR HEMOGLOBIN CONC (BEAKER) (test code = 752) 31.0 GM/DL 32.3-36.5 L RED CELL DISTRIBUTION WIDTH (BEAKER) (test code = 412) 18.7 % 11.6-14.4 H PLATELET COUNT (BEAKER) (zaki t code = 756) 151 K/CU MM 150-450 MEAN PLATELET VOLUME (BEAKER ) (test code = 754) 10.0 fL 9.4-12.4 NUCLEATED RED BLOOD CELLS (BEAKER) (test code = 413) 0 /100 WBC 0-0 NEUTROPHILS RELATIVE PERCENT (BEAKER) (test code = 429) 76 % LYMPHOCYTES RELATIVE PERCENT (BEAKER) (test code = 430) 7 % MONOCYTES RELATIVE PERCENT (BEAKER) (test code = 431) 13 % EOSINOPHILS RELATIVE PERCENT (BEAKER) (test code = 432) 1 % BASOPHILS RELATIVE PERCENT (BEAKER) (test code = 437) 1 % NEUTROPHILS ABSOLUTE COUNT (BEAKER) (test code = 670) 7.22 K/ L 1.78-5.38 H LYMPHOCYTES ABSOLUTE COUNT (BEAKER) (test code = 414) 0.69 K/ L 1.32-3.57 L MONOCYTES ABSOLUTE COUNT (BE VAL) (test code = 415) 1.25 K/ L 0.30-0.82 H EOSINOPHILS ABSOLUTE COUNT (BEAKER) (test code = 416) 0.10 K/ L 0.04-0.54 BASOPHILS ABSOLUTE COUNT (BE VAL) (test code = 417) 0.06 K/ L 0.01-0.08 IMMATURE GRANULOCYTES-RELATI VE PERCENT (BEAKER) (test code = 2801) 1.80 % 0.00-1.00 H [id number] 21:18:31* Test Item Value Reference Range Interpretation Comme nts PARTIAL THROMBOPLASTIN TIME (BEAKER) (test code = 760) 40.8 seconds 22.5-36.0 H [id number] 19:29:06* Test Item Value Reference Range Interpretation Comme nts PARTIAL THROMBOPLASTIN TIME (BEAKER) (test code = 760) 113.6 seconds 22.5-36.0 H [id number] 12:10:37* Test Item Value Reference Range Interpretation Comme nts PARTIAL THROMBOPLASTIN TIME (BEAKER) (test code = 760) 66.5 seconds 22.5-36.0 H [id number] 10:21:32* Test Item Value Reference Range Interpretation Comme nts PARTIAL THROMBOPLASTIN TIME (BEAKER) (test code = 760) 153.8 seconds 22.5-36.0 HH [id number] 05:54:42* Test Item Value Reference Range Interpretation Comme nts PARTIAL THROMBOPLASTIN TIME (BEAKER) (test code = 760) 81.8 seconds 22.5-36.0 H BASIC METABOLIC [id number] 04:31:53* Test Item Value Reference Range Interpretation Comme nts SODIUM (BEAKER) (test code = 381) 133 meq/L 136-145 L POTASSIUM (BEAKER) (test code = 379) 4.1 meq/L 3.5-5.1 CHLORIDE (BEAKER) (test code = 382) 96 meq/L 98-107 L CO2 (BEAKER) (test code = 355) 22 meq/L 22-29 BLOOD UREA NITROGEN (BEAKER) (test code = 354) 35 mg/dL 7-21 H CREATININE (BEAKER) (test code = 358) 10.18 mg/dL 0.57-1.25 H GLUCOSE RANDOM (BEAKER) (test code = 652) 106 mg/dL 70-105 H CALCIUM (BEAKER) (test code = 697) 8.8 mg/dL 8.4-10.2 EGFR (BEAKER) (test code = 1092) 5 mL/min/1.73 sq m Interpretation of eG FR values Stage Description Result G1 Normal or high >=90 G2 Mildly decreased 60-89 G3a Mildly to moderately 45-59 G3b Moderately to severely 30-44 G4 Severly decreased 15-29 G5 Kidney failure <15Reported eGFR is based on the CKD-EPI 2020 equation that does not use a race coefficientEstimated GFR is not as accurate as Creatinine Clearance in predicting glomerular filtration rate. Estimated GFR is not applicable for dialysis patients Contracts Paralegal ID - WALESKA [id number] 04:19:32* Test Item Value Reference Range Interpretation Comme nts PHOSPHORUS (BEAKER) (test co de = 604) 6.3 mg/dL 2.3-4.7 H Contracts Paralegal ID - WALESKA [id number] 04:19:31* Test Item Value Reference Range Interpretation Comme nts MAGNESIUM (BEAKER) (test cod e = 627) 1.8 mg/dL 1.6-2.6 Contracts Paralegal ID Stanley GALEANO WPROTHROMBIN TIME/[id number] 03:56:49* Test Item Value Reference Range Interpretation Comme nts PROTIME (BEAKER) (test code = 759) 16.9 seconds 11.9-14.2 H INR (BEAKER) (test code = 370) 1.46 See_Comment [Automated [employer]] The system which generated this result transmitted reference range: <=5.90. The reference range was not used to interpret this result as normal/abnormal. RECOMMENDED COUMADIN/WARFARIN INR THERAPY RANGESSTANDARD DOSE: 2.0 - 3.0 Includes: PROPHYLAXIS for venous thrombosis, systemic embolization; TREATMENT for venous thrombosis and/or pulmonary embolus.HIGH RISK: Target INR is 2.5-3.5 for patients with mechanical heart valves.CBC W/PLT COUNT & AUTO DIFFERENTIAL 2023-02-28 03:55:35* Test Item Value Reference Range Interpretation Comme nts WHITE BLOOD CELL COUNT (BEAK ER) (test code = 775) 9.5 K/ L 3.5-10.5 RED BLOOD CELL COUNT (BEAKER ) (test code = 761) 5.13 M/ L 4.63-6.08 HEMOGLOBIN (BEAKER) (test co de = 410) 13.7 GM/DL 13.7-17.5 HEMATOCRIT (BEAKER) (test co de = 411) 44.7 % 40.1-51.0 MEAN CORPUSCULAR VOLUME (USMAN KER) (test code = 753) 87 fL 79-92 MEAN CORPUSCULAR HEMOGLOBIN (BEAKER) (test code = 751) 26.7 pg 25.7-32.2 MEAN CORPUSCULAR HEMOGLOBIN CONC (BEAKER) (test code = 752) 30.6 GM/DL 32.3-36.5 L RED CELL DISTRIBUTION WIDTH (BEAKER) (test code = 412) 19.1 % 11.6-14.4 H PLATELET COUNT (BEAKER) (zaki t code = 756) 174 K/CU MM 150-450 MEAN PLATELET VOLUME (BEAKER ) (test code = 754) 10.9 fL 9.4-12.4 NUCLEATED RED BLOOD CELLS (BEAKER) (test code = 413) 0 /100 WBC 0-0 NEUTROPHILS RELATIVE PERCENT (BEAKER) (test code = 429) 76 % LYMPHOCYTES RELATIVE PERCENT (BEAKER) (test code = 430) 7 % MONOCYTES RELATIVE PERCENT (BEAKER) (test code = 431) 14 % EOSINOPHILS RELATIVE PERCENT (BEAKER) (test code = 432) 1 % BASOPHILS RELATIVE PERCENT (BEAKER) (test code = 437) 1 % NEUTROPHILS ABSOLUTE COUNT (BEAKER) (test code = 670) 7.15 K/ L 1.78-5.38 H LYMPHOCYTES ABSOLUTE COUNT (BEAKER) (test code = 414) 0.64 K/ L 1.32-3.57 L MONOCYTES ABSOLUTE COUNT (BE VAL) (test code = 415) 1.34 K/ L 0.30-0.82 H EOSINOPHILS ABSOLUTE COUNT (BEAKER) (test code = 416) 0.07 K/ L 0.04-0.54 BASOPHILS ABSOLUTE COUNT (BE VAL) (test code = 417) 0.07 K/ L 0.01-0.08 IMMATURE GRANULOCYTES-RELATI VE PERCENT (BEAKER) (test code = 2801) 2.00 % 0.00-1.00 H [id number] 22:13:49* Test Item Value Reference Range Interpretation Comme nts PARTIAL THROMBOPLASTIN TIME (BEAKER) (test code = 760) 48.7 seconds 22.5-36.0 H [id number] 16:03:16* Test Item Value Reference Range Interpretation Comme nts PARTIAL THROMBOPLASTIN TIME (BEAKER) (test code = 760) 82.9 seconds 22.5-36.0 H [id number] 09:09:45* Test Item Value Reference Range Interpretation Comme nts PARTIAL THROMBOPLASTIN TIME (BEAKER) (test code = 760) 101.6 seconds 22.5-36.0 H BASIC METABOLIC [id number] 03:00:56* Test Item Value Reference Range Interpretation Comme nts SODIUM (BEAKER) (test code = 381) 133 meq/L 136-145 L POTASSIUM (BEAKER) (test code = 379) 4.0 meq/L 3.5-5.1 Specimen slightl y hemolyzed CHLORIDE (BEAKER) (test code = 382) 96 meq/L 98-107 L CO2 (BEAKER) (test code = 355) 23 meq/L 22-29 BLOOD UREA NITROGEN (BEAKER) (test code = 354) 24 mg/dL 7-21 H CREATININE (BEAKER) (test code = 358) 8.08 mg/dL 0.57-1.25 H Specimen slightl y hemolyzed GLUCOSE RANDOM (BEAKER) (test code = 652) 102 mg/dL 70-105 CALCIUM (BEAKER) (test code = 697) 9.2 mg/dL 8.4-10.2 EGFR (BEAKER) (test code = 1092) 7 mL/min/1.73 sq m Interpretation of eG FR values Stage Description Result G1 Normal or high >=90 G2 Mildly decreased 60-89 G3a Mildly to moderately 45-59 G3b Moderately to severely 30-44 G4 Severly decreased 15-29 G5 Kidney failure <15Reported eGFR is based on the CKD-EPI 202 equation that does not use a race coefficientEstimated GFR is not as accurate as Creatinine Clearance in predicting glomerular filtration rate. Estimated GFR is not applicable for dialysis patients Contracts Paralegal ID - [id number] 02:58:45* Test Item Value Reference Range Interpretation Comme nts MAGNESIUM (BEAKER) (test code = 627) 1.8 mg/dL 1.6-2.6 Specimen sligh tly hemolyzed Contracts Paralegal ID - [id number] 02:58:45* Test Item Value Reference Range Interpretation Comme nts PHOSPHORUS (BEAKER) (test code = 604) 5.6 mg/dL 2.3-4.7 H Specimen sligh tly hemolyzed Contracts Paralegal ID - [id number] 02:15:00* Test Item Value Reference Range Interpretation Comme nts PARTIAL THROMBOPLASTIN TIME (BEAKER) (test code = 760) 72.9 seconds 22.5-36.0 H CBC W/PLT COUNT & AUTO [id number] 02:05:07* Test Item Value Reference Range Interpretation Comme nts WHITE BLOOD CELL COUNT (BEAK ER) (test code = 775) 9.9 K/ L 3.5-10.5 RED BLOOD CELL COUNT (BEAKER ) (test code = 761) 4.93 M/ L 4.63-6.08 HEMOGLOBIN (BEAKER) (test co de = 410) 13.3 GM/DL 13.7-17.5 L HEMATOCRIT (BEAKER) (test co de = 411) 42.4 % 40.1-51.0 MEAN CORPUSCULAR VOLUME (USMAN KER) (test code = 753) 86 fL 79-92 MEAN CORPUSCULAR HEMOGLOBIN (BEAKER) (test code = 751) 27.0 pg 25.7-32.2 MEAN CORPUSCULAR HEMOGLOBIN CONC (BEAKER) (test code = 752) 31.4 GM/DL 32.3-36.5 L RED CELL DISTRIBUTION WIDTH (BEAKER) (test code = 412) 18.8 % 11.6-14.4 H PLATELET COUNT (BEAKER) (zaki t code = 756) 178 K/CU MM 150-450 MEAN PLATELET VOLUME (BEAKER ) (test code = 754) 9.7 fL 9.4-12.4 NUCLEATED RED BLOOD CELLS (BEAKER) (test code = 413) 1 /100 WBC 0-0 H NEUTROPHILS RELATIVE PERCENT (BEAKER) (test code = 429) 83 % LYMPHOCYTES RELATIVE PERCENT (BEAKER) (test code = 430) 4 % MONOCYTES RELATIVE PERCENT (BEAKER) (test code = 431) 11 % EOSINOPHILS RELATIVE PERCENT (BEAKER) (test code = 432) 1 % BASOPHILS RELATIVE PERCENT (BEAKER) (test code = 437) 1 % NEUTROPHILS ABSOLUTE COUNT (BEAKER) (test code = 670) 8.13 K/ L 1.78-5.38 H LYMPHOCYTES ABSOLUTE COUNT (BEAKER) (test code = 414) 0.42 K/ L 1.32-3.57 L MONOCYTES ABSOLUTE COUNT (BE VAL) (test code = 415) 1.03 K/ L 0.30-0.82 H EOSINOPHILS ABSOLUTE COUNT (BEAKER) (test code = 416) 0.06 K/ L 0.04-0.54 BASOPHILS ABSOLUTE COUNT (BE VAL) (test code = 417) 0.05 K/ L 0.01-0.08 IMMATURE GRANULOCYTES-RELATI VE PERCENT (BEAKER) (test code = 2801) 1.60 % 0.00-1.00 H CBC W/PLT COUNT & AUTO [id number] 05:10:30* Test Item Value Reference Range Interpretation Comme nts WHITE BLOOD CELL COUNT (BEAK ER) (test code = 775) 14.0 K/ L 3.5-10.5 H RED BLOOD CELL COUNT (BEAKER ) (test code = 761) 4.97 M/ L 4.63-6.08 HEMOGLOBIN (BEAKER) (test co de = 410) 13.2 GM/DL 13.7-17.5 L HEMATOCRIT (BEAKER) (test co de = 411) 42.2 % 40.1-51.0 MEAN CORPUSCULAR VOLUME (USMAN KER) (test code = 753) 85 fL 79-92 MEAN CORPUSCULAR HEMOGLOBIN (BEAKER) (test code = 751) 26.6 pg 25.7-32.2 MEAN CORPUSCULAR HEMOGLOBIN CONC (BEAKER) (test code = 752) 31.3 GM/DL 32.3-36.5 L RED CELL DISTRIBUTION WIDTH (BEAKER) (test code = 412) 18.9 % 11.6-14.4 H PLATELET COUNT (BEAKER) (zaki t code = 756) 222 K/CU MM 150-450 MEAN PLATELET VOLUME (BEAKER ) (test code = 754) 10.6 fL 9.4-12.4 NUCLEATED RED BLOOD CELLS (BEAKER) (test code = 413) 0 /100 WBC 0-0 (CELLAVISION MANUAL DIFF)2023-02-26 05:10:30* Test Item Value Reference Range Interpretation Comme nts NEUTROPHILS - REL (CELLAVISION)(BEAKER) (test code = 2816) 79 % LYMPHOCYTES - REL (CELLAVISION)(BEAKER) (test code = 2817) 6 % MONOCYTES - REL (CELLAVISION)(BEAKER) (test code = 2818) 13 % BASOPHILS - REL (CELLAVISION)(BEAKER) (test code = 2820) 2 % NEUTROPHILS - ABS (CELLAVISION)(BEAKER) (test code = 2830) 11.06 K/ul 1.78-5.38 H LYMPHOCYTES - ABS (CELLAVISION)(BEAKER) (test code = 2831) 0.84 K/ul 1.32-3.57 L MONOCYTES - ABS (CELLAVISION)(BEAKER) (test code = 2832) 1.82 K/uL 0.30-0.82 H BASOPHILS - ABS (CELLAVISION)(BEAKER) (test code = 2835) 0.28 K/uL 0.01-0.08 H TOTAL COUNTED (BEAKER) (test code = 1351) 100 WBC MORPHOLOGY (BEAKER) (zaki t code = 487) Normal GIANT PLATELETS (BEAKER) (te st code = 313) Present POLYCHROMATOPHILLIC RBCS(USMAN KER) (test code = 478) 1+ few ANISOCYTOSIS (BEAKER) (test code = 961) 1+ few POIKILOCYTES (BEAKER) (test code = 966) 1+ few TARGET CELLS (BEAKER) (test code = 480) 1+ few SCHISTOCYTES (BEAKER) (test code = 765) 1+ few SPHEROCYTES (BEAKER) (test c ode = 768) 1+ few OVALOCYTES (BEAKER) (test co de = 477) 1+ few ARTIFACT (CELLAVISION)(BEAKE R) (test code = 3432) Present PLATELET CONCENTRATION (CELLAVISION)(BEAKER) (test code = 3438) Adequate Contracts Paralegal ID - Barbara Blanca comments: Slide comments:BASIC METABOLIC PANEL 2023-02-26 04:40:34* Test Item Value Reference Range Interpretation Comme nts SODIUM (BEAKER) (test code = 381) 134 meq/L 136-145 L POTASSIUM (BEAKER) (test code = 379) 4.5 meq/L 3.5-5.1 CHLORIDE (BEAKER) (test code = 382) 96 meq/L 98-107 L CO2 (BEAKER) (test code = 355) 22 meq/L 22-29 BLOOD UREA NITROGEN (BEAKER) (test code = 354) 44 mg/dL 7-21 H CREATININE (BEAKER) (test code = 358) 12.42 mg/dL 0.57-1.25 H GLUCOSE RANDOM (BEAKER) (test code = 652) 103 mg/dL 70-105 CALCIUM (BEAKER) (test code = 697) 9.0 mg/dL 8.4-10.2 EGFR (BEAKER) (test code = 1092) 4 mL/min/1.73 sq m Interpretation of eG FR values Stage Description Result G1 Normal or high >=90 G2 Mildly decreased 60-89 G3a Mildly to moderately 45-59 G3b Moderately to severely 30-44 G4 Severly decreased 15-29 G5 Kidney failure <15Reported eGFR is based on the CKD-EPI 2020 equation that does not use a race coefficientEstimated GFR is not as accurate as Creatinine Clearance in predicting glomerular filtration rate. Estimated GFR is not applicable for dialysis patients Contracts Paralegal ID - WALESKA [id number] 04:39:51* Test Item Value Reference Range Interpretation Comme nts PHOSPHORUS (BEAKER) (test co de = 604) 7.1 mg/dL 2.3-4.7 H Contracts Paralegal ID - WALESKA [id number] 04:39:50* Test Item Value Reference Range Interpretation Comme nts MAGNESIUM (BEAKER) (test cod e = 627) 1.9 mg/dL 1.6-2.6 Contracts Paralegal ID - WALESKA [id number] 04:19:40* Test Item Value Reference Range Interpretation Comme nts PARTIAL THROMBOPLASTIN TIME (BEAKER) (test code = 760) 35.9 seconds 22.5-36.0 [id number] 04:19:05* Test Item Value Reference Range Interpretation Comme nts FIBRINOGEN LEVEL (BEAKER) (t est code = 658) 582 mg/dl 225-434 H PROTHROMBIN TIME/[id number] 04:19:01* Test Item Value Reference Range Interpretation Comme nts PROTIME (BEAKER) (test code = 759) 16.3 seconds 11.9-14.2 H INR (BEAKER) (test code = 370) 1.39 See_Comment [Automated [employer]] The system which generated this result transmitted reference range: <=5.90. The reference range was not used to interpret this result as normal/abnormal. RECOMMENDED COUMADIN/WARFARIN INR THERAPY RANGESSTANDARD DOSE: 2.0 - 3.0 Includes: PROPHYLAXIS for venous thrombosis, systemic embolization; TREATMENT for venous thrombosis and/or pulmonary embolus.HIGH RISK: Target INR is 2.5-3.5 for patients with mechanical heart valves.[id number] 21:09:53* Test Item Value Reference Range Interpretation Comme nts FIBRINOGEN LEVEL (BEAKER) (t est code = 658) 636 mg/dl 225-434 H [id number] 18:13:03* Test Item Value Reference Range Interpretation Comme nts FIBRINOGEN LEVEL (BEAKER) (t est code = 658) 681 mg/dl 225-434 H XR CHEST 1 VIEW PORTABLE / [id number] 14:24:57 [facility] 1955 Sex: MCLINICAL HISTORY: baseline CXR TECHNIQUE: 1 view of the chest.COMPARISON: 02/11/2023IMPRESSION:There sally new right pulmonary artery infusion catheter. Prominence ofthe central pulmonary vasculature is again seen. There is no new lobarconsolidation or increasing pleural fluid. The cardiomediastinalsilhouette is magnified by technique.Electronically Signed By: Erlin Jimenez02/25/2023 14:27 CDTWorkstation Name: [id number] FUNCTION [id number] 11:51:57* Test Item Value Reference Range Interpretation Comme nts TOTAL PROTEIN (BEAKER) (test code = 770) 6.5 gm/dL 6.0-8.3 Specimen sligh tly hemolyzed ALBUMIN (BEAKER) (test code = 1145) 3.5 g/dL 3.5-5.0 Specimen slightl y hemolyzed BILIRUBIN TOTAL (BEAKER) (test code = 377) 0.6 mg/dL 0.2-1.2 Specimen slightl y hemolyzed BILIRUBIN DIRECT (BEAKER) (test code = 706) 0.3 mg/dL 0.1-0.5 Specimen slightl y hemolyzed ALKALINE PHOSPHATASE (BEAKER) (test code = 346) 111 U/L 40-150 AST (SGOT) (BEAKER) (test code = 353) 32 U/L 5-34 Specimen sligh tly hemolyzed ALT (SGPT) (BEAKER) (test code = 347) 39 U/L 6-55 Specimen sligh tly hemolyzed Contracts Paralegal ID - BVHIGH SENSITIVITY TROPONIN [id number] 09:24:35* Test Item Value Reference Range Interpretation Comme nts HIGH SENSITIVITY TROPONIN I (test code = 6441253) 120 pg/ml See_Comment H [[employer]] The system which generated this result transmitted reference range: <=35. The reference range was not used to interpret this result as normal/abnormal. Contracts Paralegal ID - MARCOThe PERFORMANCE IMPROVEMENT COORDINATOR STAT High Sensitivity Troponin-I results should be used in conjunction with other diagnostic information such as ECG, clinical observations and information, and patient symptoms to aid in the diagnosis of [place].BASIC METABOLIC [id number] 07:03:40* Test Item Value Reference Range Interpretation Comme nts SODIUM (BEAKER) (test code = 381) 136 meq/L 136-145 POTASSIUM (BEAKER) (test code = 379) 4.7 meq/L 3.5-5.1 CHLORIDE (BEAKER) (test code = 382) 96 meq/L 98-107 L CO2 (BEAKER) (test code = 355) 25 meq/L 22-29 BLOOD UREA NITROGEN (BEAKER) (test code = 354) 36 mg/dL 7-21 H CREATININE (BEAKER) (test code = 358) 10.99 mg/dL 0.57-1.25 H GLUCOSE RANDOM (BEAKER) (test code = 652) 101 mg/dL 70-105 CALCIUM (BEAKER) (test code = 697) 9.9 mg/dL 8.4-10.2 EGFR (BEAKER) (test code = 1092) 5 mL/min/1.73 sq m Interpretation of eG FR values Stage Description Result G1 Normal or high >=90 G2 Mildly decreased 60-89 G3a Mildly to moderately 45-59 G3b Moderately to severely 30-44 G4 Severly decreased 15-29 G5 Kidney failure <15Reported eGFR is based on the CKD-EPI 2020 equation that does not use a race coefficientEstimated GFR is not as accurate as Creatinine Clearance in predicting glomerular filtration rate. Estimated GFR is not applicable for dialysis patients Contracts Paralegal ID - [id number] 06:53:55* Test Item Value Reference Range Interpretation Comme nts MAGNESIUM (HERB) (test cod e = 627) 2.0 mg/dL 1.6-2.6 Contracts Paralegal ID - [id number] 06:53:55* Test Item Value Reference Range Interpretation Comme nts PHOSPHORUS (HERB) (test co de = 604) 6.7 mg/dL 2.3-4.7 H Contracts Paralegal ID - MARCOB-TYPE NATRIURETIC FACTOR (BNP)2023-02-25 06:39:40* Test Item Value Reference Range Interpretation Comme nts B-TYPE NATRIURETIC PEPTIDE ( HERB) (test code = 700) 72 pg/mL 0-100 Contracts Paralegal ID - ADMINHIGH SENSITIVITY TROPONIN [id number] 06:39:32* Test Item Value Reference Range Interpretation Comme nts HIGH SENSITIVITY TROPONIN I (test code = 3495207) 109 pg/ml See_Comment H [Automated [employer]] The system which generated this result transmitted reference range: <=35. The reference range was not used to interpret this result as normal/abnormal. Contracts Paralegal ID - ADMINThe PERFORMANCE IMPROVEMENT COORDINATOR STAT High Sensitivity Troponin-I results should be used in conjunction with other diagnostic information such as ECG, clinical observations and information, and patient symptoms to aid in the diagnosis of [place].CBC W/PLT COUNT & AUTO [id number] 06:33:25* Test Item Value Reference Range Interpretation Comme nts WHITE BLOOD CELL COUNT (STEPHANIAAK ER) (test code = 775) 13.7 K/ L 3.5-10.5 H RED BLOOD CELL COUNT (BEAKER ) (test code = 761) 5.44 M/ L 4.63-6.08 HEMOGLOBIN (BEAKER) (test co de = 410) 14.4 GM/DL 13.7-17.5 HEMATOCRIT (BEAKER) (test co de = 411) 47.1 % 40.1-51.0 MEAN CORPUSCULAR VOLUME (USMAN KER) (test code = 753) 87 fL 79-92 MEAN CORPUSCULAR HEMOGLOBIN (BEAKER) (test code = 751) 26.5 pg 25.7-32.2 MEAN CORPUSCULAR HEMOGLOBIN CONC (BEAKER) (test code = 752) 30.6 GM/DL 32.3-36.5 L RED CELL DISTRIBUTION WIDTH (BEAKER) (test code = 412) 19.1 % 11.6-14.4 H PLATELET COUNT (BEAKER) (zaki t code = 756) 234 K/CU MM 150-450 MEAN PLATELET VOLUME (BEAKER ) (test code = 754) 10.2 fL 9.4-12.4 NUCLEATED RED BLOOD CELLS (BEAKER) (test code = 413) 0 /100 WBC 0-0 NEUTROPHILS RELATIVE PERCENT (BEAKER) (test code = 429) 87 % LYMPHOCYTES RELATIVE PERCENT (BEAKER) (test code = 430) 4 % MONOCYTES RELATIVE PERCENT (BEAKER) (test code = 431) 8 % EOSINOPHILS RELATIVE PERCENT (BEAKER) (test code = 432) 0 % BASOPHILS RELATIVE PERCENT (BEAKER) (test code = 437) 0 % NEUTROPHILS ABSOLUTE COUNT (BEAKER) (test code = 670) 11.88 K/ L 1.78-5.38 H LYMPHOCYTES ABSOLUTE COUNT (BEAKER) (test code = 414) 0.50 K/ L 1.32-3.57 L MONOCYTES ABSOLUTE COUNT (BE VAL) (test code = 415) 1.07 K/ L 0.30-0.82 H EOSINOPHILS ABSOLUTE COUNT (BEAKER) (test code = 416) 0.03 K/ L 0.04-0.54 L BASOPHILS ABSOLUTE COUNT (BE VAL) (test code = 417) 0.06 K/ L 0.01-0.08 IMMATURE GRANULOCYTES-RELATI VE PERCENT (BEAKER) (test code = 2801) 1.20 % 0.00-1.00 H [id number] 06:32:29* Test Item Value Reference Range Interpretation Comme nts PARTIAL THROMBOPLASTIN TIME (BEAKER) (test code = 760) 68.9 seconds 22.5-36.0 H CBC W/AUTO [id number] 16:45:00* Test Item Value Reference Range Interpretation Comme nts WHITE BLOOD CELL (test code = WBC) 11.2 K/mm3 3.5-11.0 H RED BLOOD CELL (test code = RBC) 6.16 M/mm3 4.70-6.10 H HEMOGLOBIN (test code = HGB) 16.5 G/DL 12.3-15.9 H HEMATOCRIT (test code = HCT) 51.6 % 35.8-46.7 H MEAN CELL VOLUME (test code = MCV) 83.8 Fl 86.3-98.9 L MEAN CELL HGB (test code = MCH) 26.8 pg 28.9-34.4 L MEAN CELL HGB CONCETRATION (test code = MCHC) 32.0 G/DL 32.1-34.5 L RED CELL DISTRIBUTION WIDTH (test code = RDW) 19.3 SD 11.5-14.5 H PLATELET COUNT (test code = PLT) 216 K/mm3 150-450 N MEAN PLATELET VOLUME (test c ode = MPV) 10.40 fL 7.0-9.6 H NEUTROPHIL % (test code = NT%) 77.6 % 40-76 H IMMATURE GRANULOCYTE % (test code = IG%) 1.2 % 0.0-5.0 N LYMPHOCYTE % (test code = LY%) 7.7 % 20.5-51.1 L MONOCYTE % (test code = MO%) 12.6 % 1.7-9.3 H EOSINOPHIL % (test code = EO%) 0.5 % 0.0-6.0 N BASOPHIL % (test code = BA%) 0.4 % 0.0-2.0 N NUCLEATED RBC % (test code = NRBC%) 0.2 /100WBC% 0.0-1.0 N NEUTROPHIL # (test code = NT#) 8.7 K/mm3 1.8-7.6 H IMMATURE GRANULOCYTE # (test code = IG#) 0.13 x10 3/uL 0.00-0.03 H LYMPHOCYTE # (test code = LY#) 0.9 K/mm3 0.6-3.0 N MONOCYTE # (test code = MO#) 1.4 K/mm3 0.2-1.5 N EOSINOPHIL # (test code = EO#) 0.1 K/mm3 0.0-0.4 N BASOPHIL # (test code = BA#) 0.1 K/mm3 0.0-0.2 N NUCLEATED RBC # (test code = NRBC#) 0.0 K/mm3 0.00-0.01 N MANUAL DIFF REQUIRED (test c ode = MDIFF) NO DIFF/SCN CRITERIA BASIC METABOLIC [id number] 16:04:00* Test Item Value Reference Range Interpretation Comme nts SODIUM (test code = NA) 131 mmol/L 134-147 L POTASSIUM (test code = K) 4.6 mmol/L 3.4-5.0 N CHLORIDE (test code = CL) 92 mmol/L 100-108 L CARBON DIOXIDE (test code = CO2) 20 mmol/L 21-32 L ANION GAP (test code = GAP) 19.0 GAP calc 4.0-15.0 H GLUCOSE (test code = GLU) 93 MG/DL 70-110 N BLOOD UREA NITROGEN (test code = BUN) 125 MG/DL 7-18 H GLOMERULAR FILTRATION RATE (test code = GFR) 2 estGFR >60 L The Glomerular Filtration Rate is a calculated parameterbased on serum Creatinine, patient age and sex. GFR valuesless than 60 mL/min/1.73 square meters are indicative ofChronic Kidney Disease. Values less than 15 mL/min/1.73square meters indicate Kidney failure. The calculation forGFR is based on the CKD-EPI (202) calculation. This formulais race indifferent and is the recommended formula for GFRby the National Kidney Foundation for Adults.The GFR will not calculate if the sex is unknown or if thepatient's age is <18 years. CREATININE (test code = CREAT) 18.5 MG/DL 0.8-1.3 H CALCIUM (test code = CA) 8.2 MG/DL 8.5-10.1 L QNS NOT ENOUGH I CONTACT YOEL MARTI- DUP VE[place] UNI [id number] 12:37:00 [facility] 1955 Sex: M Name: IRA RAYA [facility] : 1955 Age/S: 67 / M [id number] [address] Unit #: [id number] Loc: [place] [address] Phys: Erlin George MD Acct: [id number] Dis Date: Status: ADM IN PHONE #: [phone] Exam Date: 02/19/2023 1105 FAX #: Reason: fistula eval for flow EXAMS: CPT: [id number] [place] [id number] EXAM: LEFT UPPER EXTREMITY VENOUS DUPLEX ULTRASOUND INDICATION: Fistula malfunction COMPARISON: None TECHNIQUE: Castellon scale, color Doppler and spectral waveform analysis of the left upper extremity deep venous system was performed. 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 There is partial flow noted at the anastomosis. SUBCLAVIAN: Not visualized. AXILLARY: Fully compressible with normal spontaneous waveforms. BRACHIAL: Partial compressibility with nonocclusive thrombus seen within the mid and distal left brachiocephalic vein. CEPHALIC: Fully compressible with normal spontaneous waveforms. BASILIC: Fully compressible with normal spontaneous waveforms. Other: Normal bilateral response to augmentation. 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 Nonocclusive thrombus noted within the mid and distal left brachiocephalic vein. LOCATION: B2 at 1237 Reported and signed by: Zara Cuba M.D. CC: Erlin George MD; Ira Ramirez MD Technologist: ALEXANDER WILBURN [facility] Date/Time: 02/19/2023 (1237) 16 PAGE 1 Signed Report Name: [facility] [place] : 1955 Age/S: 67 / M [id number] [address] Unit #: [id number] Loc: [place] [address] Phys: Erlin George MD Acct: [id number] Dis Date: Status: ADM IN PHONE #: [phone] Exam Date: 02/19/2023 1104 FAX #: Reason: fistula eval for flow EXAMS: CPT: [id number] [place] [id number] (Continued) Orig Print D/T: S: 02/19/2023 (1240) Probe: PAGE 2 Signed ReportCBC W/AUTO [id number] 12:16:00* Test Item Value Reference Range Interpretation Comme nts WHITE BLOOD CELL (test code = WBC) 13.2 K/mm3 3.5-11.0 H RED BLOOD CELL (test code = RBC) 6.21 M/mm3 4.70-6.10 H HEMOGLOBIN (test code = HGB) 16.7 G/DL 12.3-15.9 H HEMATOCRIT (test code = HCT) 51.9 % 35.8-46.7 H MEAN CELL VOLUME (test code = MCV) 83.6 Fl 86.3-98.9 L MEAN CELL HGB (test code = MCH) 26.9 pg 28.9-34.4 L MEAN CELL HGB CONCETRATION (test code = MCHC) 32.2 G/DL 32.1-34.5 N RED CELL DISTRIBUTION WIDTH (test code = RDW) 19.3 SD 11.5-14.5 H PLATELET COUNT (test code = PLT) 170 K/mm3 150-450 N MEAN PLATELET VOLUME (test code = MPV) 10.80 fL 7.0-9.6 H NEUTROPHIL % (test code = NT%) 82.3 % 40-76 H IMMATURE GRANULOCYTE % (test code = IG%) 1.6 % 0.0-5.0 N LYMPHOCYTE % (test code = LY%) 3.6 % 20.5-51.1 L MONOCYTE % (test code = MO%) 11.6 % 1.7-9.3 H EOSINOPHIL % (test code = EO%) 0.5 % 0.0-6.0 N BASOPHIL % (test code = BA%) 0.4 % 0.0-2.0 N NUCLEATED RBC % (test code = NRBC%) 0.2 /100WBC% 0.0-1.0 N NEUTROPHIL # (test code = NT#) 10.9 K/mm3 1.8-7.6 H IMMATURE GRANULOCYTE # (test code = IG#) 0.21 x10 3/uL 0.00-0.03 H LYMPHOCYTE # (test code = LY#) 0.5 K/mm3 0.6-3.0 L MONOCYTE # (test code = MO#) 1.5 K/mm3 0.2-1.5 N EOSINOPHIL # (test code = EO#) 0.1 K/mm3 0.0-0.4 N BASOPHIL # (test code = BA#) 0.1 K/mm3 0.0-0.2 N NUCLEATED RBC # (test code = NRBC#) 0.0 K/mm3 0.00-0.01 N MANUAL DIFF REQUIRED (test code = MDIFF) NO DIFF/SCN CRITERIA SLIDE REVIEW CONSISTANT WITH AUTO DIFFERENTIAL. COMPREHENSIVE METABOLIC [id number] 11:25:00* Test Item Value Reference Range Interpretation Comme nts SODIUM (test code = NA) 131 mmol/L 134-147 L POTASSIUM (test code = K) 4.8 mmol/L 3.4-5.0 N CHLORIDE (test code = CL) 93 mmol/L 100-108 L CARBON DIOXIDE (test code = CO2) 23 mmol/L 21-32 N ANION GAP (test code = GAP) 15.0 GAP calc 4.0-15.0 N GLUCOSE (test code = GLU) 113 MG/DL 70-110 H BLOOD UREA NITROGEN (test code = BUN) 115 MG/DL 7-18 H GLOMERULAR FILTRATION RATE (test code = GFR) 3 estGFR >60 L The Glomerular Filtration Rate is a calculated parameterbased on serum Creatinine, patient age and sex. GFR valuesless than 60 mL/min/1.73 square meters are indicative ofChronic Kidney Disease. Values less than 15 mL/min/1.73square meters indicate Kidney failure. The calculation forGFR is based on the CKD-EPI (202) calculation. This formulais race indifferent and is the recommended formula for GFRby the National Kidney Foundation for Adults.The GFR will not calculate if the sex is unknown or if thepatient's age is <18 years. CREATININE (test code = CREAT) 15.6 MG/DL 0.8-1.3 H TOTAL PROTEIN (test code = PROT) 6.2 G/DL 6.4-8.2 L ALBUMIN (test code = ALB) 2.6 G/DL 3.4-5.0 L GLOBULIN (test code = GLOB) 3.6 GM/dL ALBUMIN/GLOBULIN RATIO (test code = A/G) 0.7 RATIO 1.2-2.2 L CALCIUM (test code = CA) 8.3 MG/DL 8.5-10.1 L BILIRUBIN TOTAL (test code = BILT) 0.70 MG/DL 0.2-1.2 N SGOT/AST (test code = AST) 29 Unit/L 15-37 N SGPT/ALT (test code = ALT) 45 Unit/L 12-78 N ALKALINE PHOSPHATASE TOTAL (test code = ALKP) 119 Unit/L 50-136 N - XR CHEST 1 [id number] 09:42:00 [facility] 1955 Sex: M Name: IRA RAYA [facility] : 1955 Age/S: 67 / M [id number] [place] Unit #: [id number] Loc: [place] [address] Phys: Erlin George MD Acct: [id number] Dis Date: Status: REG ER PHONE #: [phone] Exam Date: 02/19/2023 0939 FAX #: Reason: missed dialysis EXAMS: CPT: [id number] XR CHEST 1 V 22131 Fluoro Time: DAP (Gy m2): Air Kerma (mGy): EXAM: CHEST ONE VIEW INDICATION:MISSED DIALYSIS LOCATION: B2 COMPARISON: November 15, 2021 TECHNIQUE: AP view of the chest FINDINGS: Theheart size is normal. The lungs are clear bilaterally. The pulmonary vasculature is normal. No pneumothorax or pleural effusion is identified. The osseous structures are normal. IMPRESSION: No acute cardiopulmonary process. at 0942 Reported and signed by: Zara Cuba M.D. CC: Erlin George MD; Ira Ramirez MD PAGE 1 Signed Report Name: IRA RAYA [facility] : 1955 Age/S: 67 / M [id number] [address] [place] Unit #: [id number] Loc: [place] [id number] Phys: Erlin George MD Acct: [id number] Dis Date: Status: REG ER PHONE #: [phone] Exam Date: 02/19/2023 0939 FAX #: Reason: missed dialysis EXAMS: CPT: [id number] XR CHEST 1 V 81320 Fluoro Time: DAP (Gy m2): Air Kerma (mGy): (Continued) Technologist: Lucy Yo RT(R) Trnscb Date/Time: 02/19/2023 (941) 16 Orig Print D/T: S: 02/19/2023 (0946) PAGE 2 Signed ReportPOCT-GLUCOSE [id number] 12:47:50* Test Item Value Reference Range Interpretation Comme nts POC-GLUCOSE METER (BEAKER) (test code = 1538) 107 mg/dL 70-110 : TESTED AT [place] [id number]: Contracts Paralegal/Transmission Calibration Engineer ID = [id number] for Nova Dumont TISSUE [id number] 12:20:55Surgical Pathology Report Case: [id number] Authorizing Provider: Geeta Montero MD Collected: 02/13/2023 08:34 AM Ordering Location: [facility] Received: 02/14/2023 09:01 AM Pathologist: Yessy Vazquez MD Specimens: A) - Biopsy, Gastric B) - Cecum C) - Polyp, Colon - Transverse D) - Large Intestine, Colon - Sigmoid This addendum is issued to report the result of immunohistochemicalstudy for CMV on C1:- NEGATIVE The interpretation of this case included the use of immunohistochemistry or special stains. HELICOBACTER PYLORIImmunohistochemistry technical testing was performed at [facility], Pathology Laboratory where it was developed and its performance characteristics were determined. It has not been cleared or approved by the U.S. Food and Drug Administration. The FDA has determined that such clearance or approval is not necessary. The test is used for clinical purposes. It should not be regarded as investigational or for research. This laboratory is certified under the Clinical Laboratory Improvement Amendments of 1988 (CLIA-88) as qualified to perform high complexity clinical laboratory testing. ADDITIONAL CPT CODE: 68597 Addendum electronically signed by Yessy Vazquez MD on 02/17/2023 at 12:20 PMThis addendum is issued to report the result of immunohistochemical study for Helicobacter pylori on A1:- NEGATIVE The interpretation of this case included the use of immunohistochemistry or special stains. HELICOBACTER PYLORIImmunohistochemistry technical testing was performed at [facility] Pathology Laboratory where it was developed and its performance characteristics were determined. It has not been cleared or approved by the U.S. Food and Drug Administration. The FDA has determined that such clearance or approval is not necessary. The test is used for clinical purposes. It should not be regarded as investigational or for research. This laboratory is certified under the Clinical Laboratory Improvement Amendments of 1988 (CLIA-88) as qualified to perform high complexity clinical laboratory testing. ADDITIONAL CPT CODE: 64601 Addendum electronically signed by Yessy Vazquez MD on 02/17/2023 at 12:18 PMA.STOMACH, RANDOM, ENDOSCOPIC BIOPSY:- MILD CHRONIC GASTRITIS WITH MICROFOCAL ACTIVITY AND REACTIVE CHANGES- NUMEROUS NON-SPECIFIC BACTERIA SEEN- NO INTESTINAL METAPLASIA, DYSPLASIA OR MALIGNANCY SEEN- IMMUNOHISTOCHEMICAL STAIN FOR HELICOBACTER PYLORI IS BEING DONE, AN ADDENDUM REPORT WILL FOLLOWB. 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 Clinical correlation is [id number] X 4Gastrointestinal hemorrhage, unspecified gastrointestinal hemorrhage typeA. Biopsy, GastricReceived in formalin labeled with the patient's name, medical record number and labeled biopsy, gastric" are 2 hooks-brown mucosal pieces 0.3 and 0.5 cm in maximum dimension each, submitted entirely in cassette labeled A1B. CecumReceived in formalin labeled with the patient's name, medical record number and labeled "cecum" are 2 hooks mucosal fragments 0.1 to 0.3 cm in maximum dimension each, submitted entirely in 1 cassette labeled B1C. Polyp, Colon - TransverseReceived in formalin labeled with the patient's name, medical record number and labeled "polyp, colon-transverse" are 3 hooks-brown mucosal fragments 0.1 and 0.3 cm in maximum dimension each, submitted entirely in cassette labeled C1 D. Large Intestine, Colon - SigmoidReceived in formalin labeled with the patient's name, medical record number and labeled "colon- sigmoid" are multiple fragments of hooks mucosal tissue 0.5 x 0.5 x 0.1 cm in aggregate. Submitted entirely cassette labeled D1. BH/BHPERFORMEDPHOSPHORUS 2023-02-17 06:37:35* Test Item Value Reference Range Interpretation Comme nts PHOSPHORUS (BEAKER) (test co de = 604) 8.5 mg/dL 2.5-4.5 H Contracts Paralegal ID - [id number] ID - [id number] ID - [id number] ID - [id number] METABOLIC [id number] 06:37:22* Test Item Value Reference Range Interpretation Comme nts SODIUM (BEAKER) (test code = 381) 138 meq/L 135-148 POTASSIUM (BEAKER) (test code = 379) 4.6 meq/L 3.6-5.5 CHLORIDE (BEAKER) (test code = 382) 97 meq/L 98-106 L CO2 (BEAKER) (test code = 355) 20 meq/L 20-29 BLOOD UREA NITROGEN (BEAKER) (test code = 354) 76 mg/dL 10-26 H CREATININE (BEAKER) (test code = 358) 12.75 mg/dL 0.50-1.20 H GLUCOSE RANDOM (BEAKER) (test code = 652) 104 mg/dL 70-110 CALCIUM (BEAKER) (test code = 697) 9.1 mg/dL 8.5-10.5 EGFR (BEAKER) (test code = 1092) 4 mL/min/1.73 sq m Interpretation of eG FR values Stage Description Result G1 Normal or high >=90 G2 Mildly decreased 60-89 G3a Mildly to moderately 45-59 G3b Moderately to severely 30-44 G4 Severly decreased 15-29 G5 Kidney failure <15Reported eGFR is based on the CKD-EPI 2020 equation that does not use a race coefficientEstimated GFR is not as accurate as Creatinine Clearance in predicting glomerular filtration rate. Estimated GFR is not applicable for dialysis patients Contracts Paralegal ID - [id number] ID - [id number] ID - [id number] ID - [id number] ID- [id number] ID - [id number] ID - [id number] ID - [id number] ID - [id number] ID - [id number] W/PLT COUNT & AUTO [id number] 06:14:44* Test Item Value Reference Range Interpretation Comme nts WHITE BLOOD CELL COUNT (BEAK ER) (test code = 775) 11.8 K/ L 4.0-10.0 H RED BLOOD CELL COUNT (BEAKER ) (test code = 761) 6.42 M/ L 4.20-5.80 H HEMOGLOBIN (BEAKER) (test co de = 410) 17.2 GM/DL 13.0-16.8 H HEMATOCRIT (BEAKER) (test co de = 411) 55.2 % 36.0-50.0 H MEAN CORPUSCULAR VOLUME (USMAN KER) (test code = 753) 86 fL 82-99 MEAN CORPUSCULAR HEMOGLOBIN (BEAKER) (test code = 751) 26.8 pg 27.0-33.0 L MEAN CORPUSCULAR HEMOGLOBIN CONC (BEAKER) (test code = 752) 31.2 GM/DL 32.0-36.0 L RED CELL DISTRIBUTION WIDTH (BEAKER) (test code = 412) 19.4 % 12.0-15.0 H PLATELET COUNT (BEAKER) (zaki t code = 756) 109 K/CU MM 150-430 L MEAN PLATELET VOLUME (BEAKER ) (test code = 754) 11.7 fL 6.0-11.5 H NUCLEATED RED BLOOD CELLS (BEAKER) (test code = 413) 0 /100 WBC 0-0 NEUTROPHILS RELATIVE PERCENT (BEAKER) (test code = 429) 82 % LYMPHOCYTES RELATIVE PERCENT (BEAKER) (test code = 430) 4 % MONOCYTES RELATIVE PERCENT (BEAKER) (test code = 431) 12 % EOSINOPHILS RELATIVE PERCENT (BEAKER) (test code = 432) 1 % BASOPHILS RELATIVE PERCENT (BEAKER) (test code = 437) 0 % NEUTROPHILS ABSOLUTE COUNT (BEAKER) (test code = 670) 9.72 K/ L 1.80-8.00 H LYMPHOCYTES ABSOLUTE COUNT (BEAKER) (test code = 414) 0.46 K/ L 1.48-4.50 L MONOCYTES ABSOLUTE COUNT (BE VAL) (test code = 415) 1.38 K/ L 0.00-1.30 H EOSINOPHILS ABSOLUTE COUNT (BEAKER) (test code = 416) 0.10 K/ L 0.00-0.50 BASOPHILS ABSOLUTE COUNT (BE VAL) (test code = 417) 0.04 K/ L 0.00-0.20 IMMATURE GRANULOCYTES-RELATI VE PERCENT (BEAKER) (test code = 2801) 1.20 % 0.00-0.00 H BLOOD [id number] 04:00:32* Test Item Value Reference Range Interpretation Comme nts CULTURE (BEAKER) (test code = 1095) No growth in 5 days BLOOD [id number] 01:00:24* Test Item Value Reference Range Interpretation Comme nts CULTURE (BEAKER) (test code = 1095) No growth in 5 days POCT-GLUCOSE [id number] 21:50:51* Test Item Value Reference Range Interpretation Comme nts POC-GLUCOSE METER (BEAKER) (test code = 1538) 128 mg/dL 70-110 H : TESTED AT [place] [address]: Contracts Paralegal/Transmission Calibration Engineer ID = [id number] for Tere Tam POCT-GLUCOSE [id number] 16:27:39* Test Item Value Reference Range Interpretation Comme nts POC-GLUCOSE METER (BEAKER) (test code = 1538) 82 mg/dL 70-110 : TESTED AT [place] [address]: Contracts Paralegal/Transmission Calibration Engineer ID = [id number] for Silvia Ritter POCT-GLUCOSE [id number] 14:31:34* Test Item Value Reference Range Interpretation Comme nts POC-GLUCOSE METER (BEAKER) (test code = 1538) 108 mg/dL 70-110 : TESTED AT [place] [address]: Contracts Paralegal/Transmission Calibration Engineer ID = [id number] for Shelby Smith POCT-GLUCOSE [id number] 12:55:59* Test Item Value Reference Range Interpretation Comme nts POC-GLUCOSE METER (BEAKER) (test code = 1538) 72 mg/dL 70-110 : TESTED AT [place] [address]: Contracts Paralegal/Transmission Calibration Engineer ID = [id number] for Gina Rittery POCT-GLUCOSE [id number] 06:43:42* Test Item Value Reference Range Interpretation Comme nts POC-GLUCOSE METER (BEAKER) (test code = 1538) 110 mg/dL 70-110 : TESTED AT [place] [address]: Contracts Paralegal/Transmission Calibration Engineer ID = [id number] for Nadege Zhang [id number] 05:47:11* Test Item Value Reference Range Interpretation Comme nts PHOSPHORUS (BEAKER) (test co de = 604) 10.1 mg/dL 2.5-4.5 HH Contracts Paralegal ID - [id number] ID - [id number] ID - [id number] ID - [id number] BASIC METABOLIC [id number] 05:46:02* Test Item Value Reference Range Interpretation Comme nts SODIUM (BEAKER) (test code = 381) 134 meq/L 135-148 L POTASSIUM (BEAKER) (test code = 379) 5.5 meq/L 3.6-5.5 CHLORIDE (BEAKER) (test code = 382) 96 meq/L 98-106 L CO2 (BEAKER) (test code = 355) 16 meq/L 20-29 L BLOOD UREA NITROGEN (BEAKER) (test code = 354) 99 mg/dL 10-26 H CREATININE (BEAKER) (test code = 358) 14.42 mg/dL 0.50-1.20 H GLUCOSE RANDOM (BEAKER) (test code = 652) 76 mg/dL 70-110 CALCIUM (BEAKER) (test code = 697) 8.7 mg/dL 8.5-10.5 EGFR (BEAKER) (test code = 1092) 3 mL/min/1.73 sq m Interpretation of eG FR values Stage Description Result G1 Normal or high >=90 G2 Mildly decreased 60-89 G3a Mildly to moderately 45-59 G3b Moderately to severely 30-44 G4 Severly decreased 15-29 G5 Kidney failure <15Reported eGFR is based on the CKD-EPI 202 equation that does not use a race coefficientEstimated GFR is not as accurate as Creatinine Clearance in predicting glomerular filtration rate. Estimated GFR is not applicable for dialysis patients Contracts Paralegal ID - [id number] ID - [id number] ID - [id number] ID - [id number] ID - [id number] ID - GQFM08Eaagijpk ID - HTVG64Kktzylcw ID - FUIB16Qfcehkqv ID - GYPZ50Zotffywp ID - [id number] W/PLT COUNT & AUTO [id number] 05:24:17* Test Item Value Reference Range Interpretation Comme nts WHITE BLOOD CELL COUNT (BEAKER) (test code = 775) 10.9 K/ L 4.0-10.0 H RED BLOOD CELL COUNT (BEAKER) (test code = 761) 6.40 M/ L 4.20-5.80 H HEMOGLOBIN (BEAKER) (test code = 410) 17.2 GM/DL 13.0-16.8 H HEMATOCRIT (BEAKER) (test code = 411) 55.3 % 36.0-50.0 H MEAN CORPUSCULAR VOLUME (BEAKER) (test code = 753) 86 fL 82-99 MEAN CORPUSCULAR HEMOGLOBIN (BEAKER) (test code = 751) 26.9 pg 27.0-33.0 L MEAN CORPUSCULAR HEMOGLOBIN CONC (BEAKER) (test code = 752) 31.1 GM/DL 32.0-36.0 L RED CELL DISTRIBUTION WIDTH (BEAKER) (test code = 412) 19.8 % 12.0-15.0 H PLATELET COUNT (BEAKER) (test code = 756) 112 K/CU MM 150-430 L MEAN PLATELET VOLUME (BEAKER) (test code = 754) Unable to report due to abnormal Platelet population distribution. NUCLEATED RED BLOOD CELLS (BEAKER) (test code = 413) 0 /100 WBC 0-0 NEUTROPHILS RELATIVE PERCENT (BEAKER) (test code = 429) 81 % LYMPHOCYTES RELATIVE PERCENT (BEAKER) (test code = 430) 7 % MONOCYTES RELATIVE PERCENT (BEAKER) (test code = 431) 11 % EOSINOPHILS RELATIVE PERCENT (BEAKER) (test code = 432) 1 % BASOPHILS RELATIVE PERCENT (BEAKER) (test code = 437) 0 % NEUTROPHILS ABSOLUTE COUNT (BEAKER) (test code = 670) 8.79 K/ L 1.80-8.00 H LYMPHOCYTES ABSOLUTE COUNT (BEAKER) (test code = 414) 0.73 K/ L 1.48-4.50 L MONOCYTES ABSOLUTE COUNT (BEAKER) (test code = 415) 1.19 K/ L 0.00-1.30 EOSINOPHILS ABSOLUTE COUNT (BEAKER) (test code = 416) 0.07 K/ L 0.00-0.50 BASOPHILS ABSOLUTE COUNT (BEAKER) (test code = 417) 0.04 K/ L 0.00-0.20 IMMATURE GRANULOCYTES-RELATIVE PERCENT (BEAKER) (test code = 2801) 0.80 % 0.00-0.00 H POCT-GLUCOSE [id number] 22:07:18* Test Item Value Reference Range Interpretation Comme nts POC-GLUCOSE METER (BEAKER) (test code = 1538) 107 mg/dL 70-110 : TESTED AT [address] [address]: Contracts Paralegal/Transmission Calibration Engineer ID = [id number] for Nadege Zhang POCT-GLUCOSE [id number] 17:16:54* Test Item Value Reference Range Interpretation Comme nts POC-GLUCOSE METER (BEAKER) (test code = 1538) 148 mg/dL 70-110 H : TESTED AT [place] [address]: Contracts Paralegal/Transmission Calibration Engineer ID = [id number] for Ashley Sanchez POCT-GLUCOSE [id number] 12:35:24* Test Item Value Reference Range Interpretation Comme nts POC-GLUCOSE METER (BEAKER) (test code = 1538) 110 mg/dL 70-110 : TESTED AT [place] [address]: Contracts Paralegal/Transmission Calibration Engineer ID = [id number] for Ashley Sanchez [id number] 10:54:51* Test Item Value Reference Range Interpretation Comme nts PHOSPHORUS (BEAKER) (test code = 604) 9.2 mg/dL 2.5-4.5 HH Specimen sligh tly hemolyzed Contracts Paralegal ID - [id number] [id number] 07:07:20* Test Item Value Reference Range Interpretation Comme nts POC-GLUCOSE METER (BEAKER) (test code = 1538) 108 mg/dL 70-110 : TESTED AT [place] [address]: Contracts Paralegal/Transmission Calibration Engineer ID = [id number] for Bel Fenrandez BASIC METABOLIC [id number] 06:50:04* Test Item Value Reference Range Interpretation Comme nts SODIUM (BEAKER) (test code = 381) 138 meq/L 135-148 POTASSIUM (BEAKER) (test code = 379) 5.5 meq/L 3.6-5.5 Specimen slightl y hemolyzed CHLORIDE (BEAKER) (test code = 382) 98 meq/L 98-106 CO2 (BEAKER) (test code = 355) 16 meq/L 20-29 L BLOOD UREA NITROGEN (BEAKER) (test code = 354) 86 mg/dL 10-26 H CREATININE (BEAKER) (test code = 358) 13.70 mg/dL 0.50-1.20 H Specimen slightl y hemolyzed GLUCOSE RANDOM (BEAKER) (test code = 652) 75 mg/dL 70-110 CALCIUM (BEAKER) (test code = 697) 9.2 mg/dL 8.5-10.5 EGFR (BEAKER) (test code = 1092) 4 mL/min/1.73 sq m Interpretation of eG FR values Stage Description Result G1 Normal or high >=90 G2 Mildly decreased 60-89 G3a Mildly to moderately 45-59 G3b Moderately to severely 30-44 G4 Severly decreased 15-29 G5 Kidney failure <15Reported eGFR is based on the CKD-EPI 2020 equation that does not use a race coefficientEstimated GFR is not as accurate as Creatinine Clearance in predicting glomerular filtration rate. Estimated GFR is not applicable for dialysis patients Contracts Paralegal ID - [id number] ID - [id number] ID - [id number] ID - [id number] ID- [id number] ID - [id number] ID - [id number] ID - [id number] ID - SGLQO369Vmzttpxn ID - [id number] ID - [id number] ID - [id number] ID - [id number]. DIFFICILE GDH [id number] 03:56:51* Test Item Value Reference Range Interpretation Comme nts CDT TOXIN (test code = 7335720892) Negative Negative CDT GDH ANTIGEN (test code = 7343861875) Negative Negative No indication of Clostridium difficile infection and no colonization. Discontinue enteric isolation and therapy. Testing performed by [employer] Rapid Cassette Assay. For GDH, published sensitivity of the assay is 98.7% compared to cytotoxicity testing. For Toxin AB, published sensitivity is 87.8% and specificity 99.4% compared to cytotoxicity testing.Verification of kit performance was done by the [facility] prior to clinical use.POCT-GLUCOSE [id number] 22:01:51* Test Item Value Reference Range Interpretation Comme nts POC-GLUCOSE METER (BEAKER) (test code = 1538) 101 mg/dL 70-110 : TESTED AT [address] [address]: Contracts Paralegal/Transmission Calibration Engineer ID = [id number] for Bel Fernandez POCT-GLUCOSE [id number] 17:05:30* Test Item Value Reference Range Interpretation Comme nts POC-GLUCOSE METER ([employer]) (test code = 1538) 114 mg/dL 70-110 H : TESTED AT [place] [address]: Contracts Paralegal/Transmission Calibration Engineer ID = [id number] for Yesi Phillips POCT-GLUCOSE [id number] 13:12:54* Test Item Value Reference Range Interpretation Comme nts POC-GLUCOSE METER (BEAKER) (test code = 1538) 157 mg/dL 70-110 H : TESTED AT [place] [address]: Contracts Paralegal/Transmission Calibration Engineer ID = [id number] for Yesi Phillips POCT-GLUCOSE [id number] 06:31:51* Test Item Value Reference Range Interpretation Comme nts POC-GLUCOSE METER (BEAKER) (test code = 1538) 99 mg/dL 70-110 : TESTED AT [place] [address]: Contracts Paralegal/Transmission Calibration Engineer ID = [id number] for Cathi Duque [id number] 06:14:35* Test Item Value Reference Range Interpretation Comme nts PHOSPHORUS (BEAKER) (test code = 604) 8.8 mg/dL 2.5-4.5 H Specimen sligh tly hemolyzed Contracts Paralegal ID - DSENSON(MANUAL DIFFERENTIAL)2023-02-14 05:52:18* Test Item Value Reference Range Interpretation Comme nts NEUTROPHILS - REL (DIFF) (BE VAL) (test code = 1359) 86 % LYMPHOCYTES - REL (DIFF) (BE VAL) (test code = 1360) 4 % MONOCYTES - REL (DIFF) (BEAK ER) (test code = 1361) 6 % EOSINOPHILS - REL (DIFF) (BE VAL) (test code = 1362) 4 % NEUTROPHILS - ABS (DIFF) (BE VAL) (test code = 1365) 17.72 K/ L 1.80-8.00 H LYMPHOCYTES - ABS (DIFF) (BE VAL) (test code = 1366) 0.82 K/ L 1.48-4.50 L MONOCYTES - ABS (DIFF) (BEAK ER) (test code = 1367) 1.24 K/ L 0.00-1.30 EOSINOPHILS - ABS (DIFF) (BE VAL) (test code = 1368) 0.82 K/ L 0.00-0.50 H TOTAL COUNTED (BEAKER) (test code = 1351) 100 WBC MORPHOLOGY (BEAKER) (zaki t code = 487) Normal PLT MORPHOLOGY (BEAKER) (zaki t code = 486) Normal ANISOCYTOSIS (BEAKER) (test code = 961) Present CBC W/PLT COUNT & AUTO [id number] 05:52:12* Test Item Value Reference Range Interpretation Comme nts WHITE BLOOD CELL COUNT (BEAKER) (test code = 775) 20.6 K/ L 4.0-10.0 H RED BLOOD CELL COUNT (BEAKER) (test code = 761) 6.38 M/ L 4.20-5.80 H HEMOGLOBIN (BEAKER) (test code = 410) 17.3 GM/DL 13.0-16.8 H HEMATOCRIT (BEAKER) (test code = 411) 54.0 % 36.0-50.0 H MEAN CORPUSCULAR VOLUME (BEAKER) (test code = 753) 85 fL 82-99 MEAN CORPUSCULAR HEMOGLOBIN (BEAKER) (test code = 751) 27.1 pg 27.0-33.0 MEAN CORPUSCULAR HEMOGLOBIN CONC (BEAKER) (test code = 752) 32.0 GM/DL 32.0-36.0 RED CELL DISTRIBUTION WIDTH (BEAKER) (test code = 412) 20.0 % 12.0-15.0 H PLATELET COUNT (BEAKER) (test code = 756) 132 K/CU MM 150-430 L MEAN PLATELET VOLUME (BEAKER) (test code = 754) Unable to report due to abnormal Platelet population distribution. NUCLEATED RED BLOOD CELLS (BEAKER) (test code = 413) 0 /100 WBC 0-0 [id number] 05:43:00* Test Item Value Reference Range Interpretation Comme nts PROCALCITONIN (BEAKER) (test code = 3036) 33.92 ng/mL <0.05 HH SEPSIS RISK (ng/mL)Low: 0.05-0.50Intermediate: 0.51-2.00High: >=2.01MAGNESIUM 2023-02-14 05:21:33* Test Item Value Reference Range Interpretation Comme nts MAGNESIUM (BEAKER) (test code = 627) 2.0 mg/dL 1.5-3.0 Specimen sligh tly hemolyzed Contracts Paralegal ID - DSENSONOperator ID - DSENSONOperator ID - DSENSONOperator ID - DSENSONBASIC METABOLIC [id number] 05:21:12* Test Item Value Reference Range Interpretation Comme nts SODIUM (BEAKER) (test code = 381) 140 meq/L 135-148 POTASSIUM (BEAKER) (test code = 379) 5.5 meq/L 3.6-5.5 Specimen slightl y hemolyzed CHLORIDE (BEAKER) (test code = 382) 97 meq/L 98-106 L CO2 (BEAKER) (test code = 355) 21 meq/L 20-29 BLOOD UREA NITROGEN (BEAKER) (test code = 354) 66 mg/dL 10-26 H CREATININE (BEAKER) (test code = 358) 12.11 mg/dL 0.50-1.20 H Specimen slightl y hemolyzed GLUCOSE RANDOM (BEAKER) (test code = 652) 107 mg/dL 70-110 CALCIUM (BEAKER) (test code = 697) 9.7 mg/dL 8.5-10.5 EGFR (BEAKER) (test code = 1092) 4 mL/min/1.73 sq m Interpretation of eG FR values Stage Description Result G1 Normal or high >=90 G2 Mildly decreased 60-89 G3a Mildly to moderately 45-59 G3b Moderately to severely 30-44 G4 Severly decreased 15-29 G5 Kidney failure <15Reported eGFR is based on the CKD-EPI 2020 equation that does not use a race coefficientEstimated GFR is not as accurate as Creatinine Clearance in predicting glomerular filtration rate. Estimated GFR is not applicable for dialysis patients Contracts Paralegal ID - DSENSONOperator ID - DSENSONOperator ID - DSENSONOperator ID - DSENSONOperator ID - DSENSONOperator ID - DSENSONOperator ID - DSENSONOperator ID - DSENSONOperator ID - DSENSONOperator ID - DSENSONPOCT-GLUCOSE METER 2023-02-13 21:38:22* Test Item Value Reference Range Interpretation Comme nts POC-GLUCOSE METER (BEAKER) (test code = 1538) 139 mg/dL 70-110 H : TESTED AT [place] [address]: Contracts Paralegal/Transmission Calibration Engineer ID = [id number] for Bel Fernandez POCT-GLUCOSE [id number] 16:05:53* Test Item Value Reference Range Interpretation Comme nts POC-GLUCOSE METER (HERB) (test code = 1538) 124 mg/dL 70-110 H : Notified RN/MD : TESTED AT [facility] [address] [place] [address]: Contracts Paralegal/Transmission Calibration Engineer ID = [id number] for [place] XR ABDOMEN/KUB 1 VIEW [id number] 14:34:38 [facility] 1955 Sex: MONE VIEW ABDOMENHISTORY: Abdominal distentionCOMPARISON:No prior comparison abdominal imagingFINDINGS:3 supine AP images of the abdomen were obtained.No dilated loops of large or small intestine are identified.Several rounded opacities overlie the abdomen and are presumablyexternal to the patient. There are surgical clips in the right abdomen.There are degenerative changes in the spine.IMPRESSION:No nobstructive bowel gas pattern.Electronically Signed By: Rylee Martinez02/13/2023 14:36 CDTWorkstationName: [id number] 11:55:38* Test Item Value Reference Range Interpretation Comme nts POC-GLUCOSE METER (HERB) (test code = 1538) 121 mg/dL 70-110 H : Notified RN/MD : TESTED AT [facility] [address] [facility] [address]: Contracts Paralegal/Transmission Calibration Engineer ID = [id number] for [place] HEPATITIS B SURFACE [id number] 11:44:15* Test Item Value Reference Range Interpretation Comme nts HEPATITIS B SURFACE ANTIBODY (BEAKER) (test code = 647) 19.8 mIU/mL <8.0 H Contracts Paralegal ID - ADMINPOCT-GLUCOSE [id number] 06:29:04* Test Item Value Reference Range Interpretation Comme nts POC-GLUCOSE METER (BEAKER) (test code = 1538) 133 mg/dL 70-110 H : TESTED AT [address] [address]: Contracts Paralegal/Transmission Calibration Engineer ID = [id number] for Agueda Wooten (MANUAL DIFFERENTIAL)2023-02-13 05:20:07* Test Item Value Reference Range Interpretation Comme nts NEUTROPHILS - REL (DIFF) (BE VAL) (test code = 1359) 85 % LYMPHOCYTES - REL (DIFF) (BE VAL) (test code = 1360) 4 % MONOCYTES - REL (DIFF) (BEAK ER) (test code = 1361) 5 % EOSINOPHILS - REL (DIFF) (BE VAL) (test code = 1362) 6 % NEUTROPHILS - ABS (DIFF) (BE VAL) (test code = 1365) 23.12 K/ L 1.80-8.00 H LYMPHOCYTES - ABS (DIFF) (BE VAL) (test code = 1366) 1.09 K/ L 1.48-4.50 L MONOCYTES - ABS (DIFF) (BEAK ER) (test code = 1367) 1.36 K/ L 0.00-1.30 H EOSINOPHILS - ABS (DIFF) (BE VAL) (test code = 1368) 1.63 K/ L 0.00-0.50 H TOTAL COUNTED (BEAKER) (test code = 1351) 100 WBC MORPHOLOGY (BEAKER) (zaki t code = 487) Normal PLT MORPHOLOGY (BEAKER) (zaki t code = 486) Normal RBC MORPHOLOGY (BEAKER) (zaki t code = 762) Normal CBC W/PLT COUNT & AUTO [id number] 05:19:56* Test Item Value Reference Range Interpretation Comme nts WHITE BLOOD CELL COUNT (BEAK ER) (test code = 775) 27.2 K/ L 4.0-10.0 H RED BLOOD CELL COUNT (BEAKER ) (test code = 761) 6.44 M/ L 4.20-5.80 H HEMOGLOBIN (BEAKER) (test co de = 410) 17.6 GM/DL 13.0-16.8 H HEMATOCRIT (BEAKER) (test co de = 411) 55.5 % 36.0-50.0 H MEAN CORPUSCULAR VOLUME (USMAN KER) (test code = 753) 86 fL 82-99 MEAN CORPUSCULAR HEMOGLOBIN (BEAKER) (test code = 751) 27.3 pg 27.0-33.0 MEAN CORPUSCULAR HEMOGLOBIN CONC (BEAKER) (test code = 752) 31.7 GM/DL 32.0-36.0 L RED CELL DISTRIBUTION WIDTH (BEAKER) (test code = 412) 19.9 % 12.0-15.0 H PLATELET COUNT (BEAKER) (zaki t code = 756) 138 K/CU MM 150-430 L MEAN PLATELET VOLUME (BEAKER ) (test code = 754) 11.3 fL 6.0-11.5 NUCLEATED RED BLOOD CELLS (BEAKER) (test code = 413) 0 /100 WBC 0-0 [id number] 04:47:35* Test Item Value Reference Range Interpretation Comme nts MAGNESIUM (BEAKER) (test cod e = 627) 1.9 mg/dL 1.5-3.0 Contracts Paralegal ID - DSENSONOperator ID - DSENSONOperator ID - DSENSONOperator ID - DSENSONBASIC METABOLIC [id number] 04:46:46* Test Item Value Reference Range Interpretation Comme nts SODIUM (BEAKER) (test code = 381) 138 meq/L 135-148 POTASSIUM (BEAKER) (test code = 379) 5.3 meq/L 3.6-5.5 CHLORIDE (BEAKER) (test code = 382) 95 meq/L 98-106 L CO2 (BEAKER) (test code = 355) 22 meq/L 20-29 BLOOD UREA NITROGEN (BEAKER) (test code = 354) 43 mg/dL 10-26 H CREATININE (BEAKER) (test code = 358) 9.76 mg/dL 0.50-1.20 H GLUCOSE RANDOM (BEAKER) (test code = 652) 206 mg/dL 70-110 H CALCIUM (BEAKER) (test code = 697) 9.7 mg/dL 8.5-10.5 EGFR (BEAKER) (test code = 1092) 5 mL/min/1.73 sq m Interpretation of eG FR values Stage Description Result G1 Normal or high >=90 G2 Mildly decreased 60-89 G3a Mildly to moderately 45-59 G3b Moderately to severely 30-44 G4 Severly decreased 15-29 G5 Kidney failure <15Reported eGFR is based on the CKD-EPI 2020 equation that does not use a race coefficientEstimated GFR is not as accurate as Creatinine Clearance in predicting glomerular filtration rate. Estimated GFR is not applicable for dialysis patients Contracts Paralegal ID - DSENSONOperator ID - DSENSONOperator ID - DSENSONOperator ID - DSENSONOperator ID - DSENSONOperator ID - DSENSONOperator ID - DSENSONOperator ID - DSENSONOperator ID - DSENSONOperator ID - [id number] 04:44:55* Test Item Value Reference Range Interpretation Comme nts PHOSPHORUS (BEAKER) (test co de = 604) 7.7 mg/dL 2.5-4.5 H Contracts Paralegal ID - DSENSONLACTIC ACID, [id number] 04:31:09* Test Item Value Reference Range Interpretation Comme nts LACTATE BLOOD VENOUS (2) (BEAKER) (test code = 2872) 1.80 mmol/L See_Comment [Automated me ssage] The system which generated this result transmitted reference range: 0.50-<2.00. The reference range was not used to interpret this result as normal/abnormal. HEMOGLOBIN AND [id number] 00:22:52* Test Item Value Reference Range Interpretation Comme nts HEMOGLOBIN (BEAKER) (test co de = 410) 17.8 GM/DL 13.0-16.8 H HEMATOCRIT (BEAKER) (test co de = 411) 58.3 % 36.0-50.0 H POCT-GLUCOSE [id number] 23:52:21* Test Item Value Reference Range Interpretation Comme nts POC-GLUCOSE METER (BEAKER) (test code = 1538) 130 mg/dL 70-110 H : Notified RN/MD : TESTED AT [address] [address]: Contracts Paralegal/Transmission Calibration Engineer ID = [id number] for Elisabeth Hernandez BASIC METABOLIC [id number] 19:30:21* Test Item Value Reference Range Interpretation Comme nts SODIUM (BEAKER) (test code = 381) 142 meq/L 135-148 POTASSIUM (BEAKER) (test code = 379) 4.7 meq/L 3.6-5.5 Specimen slightl y hemolyzed CHLORIDE (BEAKER) (test code = 382) 97 meq/L 98-106 L CO2 (BEAKER) (test code = 355) 21 meq/L 20-29 BLOOD UREA NITROGEN (BEAKER) (test code = 354) 40 mg/dL 10-26 H CREATININE (BEAKER) (test code = 358) 9.36 mg/dL 0.50-1.20 H Specimen slightl y hemolyzed GLUCOSE RANDOM (BEAKER) (test code = 652) 98 mg/dL 70-110 CALCIUM (BEAKER) (test code = 697) 10.3 mg/dL 8.5-10.5 EGFR (BEAKER) (test code = 1092) 6 mL/min/1.73 sq m Interpretation of eG FR values Stage Description Result G1 Normal or high >=90 G2 Mildly decreased 60-89 G3a Mildly to moderately 45-59 G3b Moderately to severely 30-44 G4 Severly decreased 15-29 G5 Kidney failure <15Reported eGFR is based on the CKD-EPI 2020 equation that does not use a race coefficientEstimated GFR is not as accurate as Creatinine Clearance in predicting glomerular filtration rate. Estimated GFR is not applicable for dialysis patients Contracts Paralegal ID - [id number] ID - [id number] ID - [id number] ID - [id number] ID- [id number] ID - [id number] ID - [id number] ID - [id number] ID - [id number] ID - [id number] ID - [id number] ID - [id number] ID - [id number] 18:37:05* Test Item Value Reference Range Interpretation Comme nts PROCALCITONIN (BEAKER) (test code = 3036) 34.46 ng/mL <0.05 HH SEPSIS RISK (ng/mL)Low: 0.05-0.50Intermediate: 0.51-2.00High: >=2.01POCT- GLUCOSE [id number] 18:30:14* Test Item Value Reference Range Interpretation Comme nts POC-GLUCOSE METER (BEAKER) (test code = 1538) 112 mg/dL 70-110 H : TESTED AT [facility] [address] [place] [address]: Contracts Paralegal/Transmission Calibration Engineer ID = [id number] for Judit John HEMOGLOBIN AND [id number] 18:13:32* Test Item Value Reference Range Interpretation Comme nts HEMOGLOBIN (BEAKER) (test co de = 410) 17.6 GM/DL 13.0-16.8 H HEMATOCRIT (BEAKER) (test co de = 411) 55.4 % 36.0-50.0 H GI PATHOGEN PROFILE BY [id number] 15:36:43* Test Item Value Reference Range Interpretation Comme nts CAMPYLOBACTER (PCR) (test co de = 20160113) Not detected Not detected PLESIOMONAS SHIGELLOIDES (PC R) (test code = 20160117) Not detected Not detected SALMONELLA (PCR) (test code = 1187439) Not detected Not detected YERSINIA ENTEROCOLITICA (PCR ) (test code = 0474710) Not detected Not detected VIBRIO CHOLERAE (PCR) (test code = 0980291) Not detected Not detected ENTEROAGGREGATIVE E. COLI (E AEC) BY PCR (test code = 7763885) Not detected Not detected ENTEROPATHOGENIC E. COLI (EP EC) BY PCR (test code = 8301013) Not detected Not detected ENTEROTOXIGENIC E. COLI (ETE C) LT/ST BY PCR (test code = 0251656) Not detected Not detected SHIGA-LIKE TOXIN-PRODUCING E . COLI (STEC) PCR (test code = 9036163) Not detected Not detected E. COLI O157 (PCR) (test cod e = 5848108) SHIGELLA/ENTEROINVASIVE E. C LILY (EIEC) BY PCR (test code = 7905749) Not detected Not detected CRYPTOSPORIDIUM (PCR) (test code = 4788186) Not detected Not detected CYCLOSPORA CAYETANENSIS (PCR ) (test code = 4301788) Not detected Not detected ENTAMOEBA HISTOLYTICA (PCR) (test code = 0321691) Not detected Not detected GIARDIA LAMBLIA (PCR) (test code = 1581800) Not detected Not detected ADENOVIRUS F 40/41 (PCR) (te st code = 4788542) Not detected Not detected ASTROVIRUS (PCR) (test code = 2496368) Not detected Not detected NOROVIRUS GI/GII (PCR) (test code = 1440478) ROTAVIRUS A (PCR) (test code = 9890575) Not detected Not detected SAPOVIRUS (I, II, IV, V) BY PCR (test code = 5750614) Not detected Not detected VIBRIO (PARAHAEMOLYTICUS, VULNIFICUS) (test code = 8479112) Not detected Not detected Other viruses, parasites and bacteria not targeted by this PCR panel cannot be excluded; therefore clinical correlation and follow up of serology, culture results, and other molecular studies is required. The results are not intended to be used as the sole means for clinical diagnosis or patient management decisions. This sample was tested at the [facility] using the [employer] Gastrointestinal Panel. It is FDA cleared and has been verified and approved by the[facility] for clinical use. This laboratory is CLIA-certified and [employer] (CAP)-accredited to perform high complexity testing.T4, FREE 2023-02-12 13:44:05* Test Item Value Reference Range Interpretation Comme nts FREE T4 (BEAKER) (test code = 655) 0.97 ng/dL 0.90-1.80 Contracts Paralegal ID - [id number] 12:49:38* Test Item Value Reference Range Interpretation Comme nts CORTISOL, TOTAL (BEAKER) (te st code = 2755) 48.5 ug/dL 3.7-19.4 H Contracts Paralegal ID - ADMINHEPATITIS B SURFACE [id number] 10:45:41* Test Item Value Reference Range Interpretation Comme nts HEPATITIS B SURFACE ANTIGEN (2) (BEAKER) (test code = 2585) Nonreactive Nonreactive Contracts Paralegal ID - [id number] 08:43:07* Test Item Value Reference Range Interpretation Comme nts MAGNESIUM (BEAKER) (test cod e = 627) 1.9 mg/dL 1.5-3.0 Contracts Paralegal ID - DSENSONOperator ID - DSENSONOperator ID - DSENSONOperator ID - DSENSONBASIC METABOLIC [id number] 08:42:02* Test Item Value Reference Range Interpretation Comme nts SODIUM (BEAKER) (test code = 381) 142 meq/L 135-148 POTASSIUM (BEAKER) (test code = 379) 5.4 meq/L 3.6-5.5 CHLORIDE (BEAKER) (test code = 382) 99 meq/L 98-106 CO2 (BEAKER) (test code = 355) 23 meq/L 20-29 BLOOD UREA NITROGEN (BEAKER) (test code = 354) 68 mg/dL 10-26 H CREATININE (BEAKER) (test code = 358) 11.88 mg/dL 0.50-1.20 H GLUCOSE RANDOM (BEAKER) (test code = 652) 104 mg/dL 70-110 CALCIUM (BEAKER) (test code = 697) 9.9 mg/dL 8.5-10.5 EGFR (BEAKER) (test code = 1092) 4 mL/min/1.73 sq m Interpretation of eG FR values Stage Description Result G1 Normal or high >=90 G2 Mildly decreased 60-89 G3a Mildly to moderately 45-59 G3b Moderately to severely 30-44 G4 Severly decreased 15-29 G5 Kidney failure <15Reported eGFR is based on the CKD-EPI 2020 equation that does not use a race coefficientEstimated GFR is not as accurate as Creatinine Clearance in predicting glomerular filtration rate. Estimated GFR is not applicable for dialysis patients Contracts Paralegal ID - DSENSONOperator ID - DSENSONOperator ID - DSENSONOperator ID - DSENSONOperator ID - DSENSONOperator ID - DSENSONOperator ID - DSENSONOperator ID - DSENSONOperator ID - DSENSONOperator ID - [id number] 08:40:53* Test Item Value Reference Range Interpretation Comme nts PHOSPHORUS (BEAKER) (test co de = 604) 8.5 mg/dL 2.5-4.5 H Contracts Paralegal ID - DSENSON(MANUAL DIFFERENTIAL)2023-02-12 06:18:48* Test Item Value Reference Range Interpretation Comme nts NEUTROPHILS - REL (DIFF) (BE VAL) (test code = 1359) 94 % LYMPHOCYTES - REL (DIFF) (BE VAL) (test code = 1360) 3 % MONOCYTES - REL (DIFF) (BEAK ER) (test code = 1361) 3 % NEUTROPHILS - ABS (DIFF) (BE VAL) (test code = 1365) 31.02 K/ L 1.80-8.00 H LYMPHOCYTES - ABS (DIFF) (BE VAL) (test code = 1366) 0.99 K/ L 1.48-4.50 L MONOCYTES - ABS (DIFF) (BEAK ER) (test code = 1367) 0.99 K/ L 0.00-1.30 TOTAL COUNTED (BEAKER) (test code = 1351) 100 WBC MORPHOLOGY (BEAKER) (zaki t code = 487) Normal PLT MORPHOLOGY (BEAKER) (zaki t code = 486) Normal ANISOCYTOSIS (BEAKER) (test code = 961) 1+ CBC W/PLT COUNT & AUTO [id number] 06:18:47* Test Item Value Reference Range Interpretation Comme nts WHITE BLOOD CELL COUNT (BEAK ER) (test code = 775) 33.0 K/ L 4.0-10.0 H RED BLOOD CELL COUNT (BEAKER ) (test code = 761) 6.35 M/ L 4.20-5.80 H HEMOGLOBIN (BEAKER) (test co de = 410) 17.4 GM/DL 13.0-16.8 H HEMATOCRIT (BEAKER) (test co de = 411) 56.5 % 36.0-50.0 H MEAN CORPUSCULAR VOLUME (USMAN KER) (test code = 753) 89 fL 82-99 MEAN CORPUSCULAR HEMOGLOBIN (BEAKER) (test code = 751) 27.4 pg 27.0-33.0 MEAN CORPUSCULAR HEMOGLOBIN CONC (BEAKER) (test code = 752) 30.8 GM/DL 32.0-36.0 L RED CELL DISTRIBUTION WIDTH (BEAKER) (test code = 412) 19.9 % 12.0-15.0 H PLATELET COUNT (BEAKER) (zaki t code = 756) 154 K/CU MM 150-430 MEAN PLATELET VOLUME (BEAKER ) (test code = 754) 10.2 fL 6.0-11.5 NUCLEATED RED BLOOD CELLS (BEAKER) (test code = 413) 0 /100 WBC 0-0 [id number] 04:46:31* Test Item Value Reference Range Interpretation Comme nts PHOSPHORUS (BEAKER) (test code = 604) 8.7 mg/dL 2.5-4.5 H Specimen sligh tly hemolyzed Contracts Paralegal ID - [id number] METABOLIC [id number] 04:46:20* Test Item Value Reference Range Interpretation Comme nts SODIUM (BEAKER) (test code = 381) 139 meq/L 135-148 POTASSIUM (BEAKER) (test code = 379) 6.1 meq/L 3.6-5.5 HH Specimen slightl y hemolyzed CHLORIDE (BEAKER) (test code = 382) 98 meq/L 98-106 CO2 (BEAKER) (test code = 355) 20 meq/L 20-29 BLOOD UREA NITROGEN (BEAKER) (test code = 354) 62 mg/dL 10-26 H CREATININE (BEAKER) (test code = 358) 11.26 mg/dL 0.50-1.20 H Specimen slightl y hemolyzed GLUCOSE RANDOM (BEAKER) (test code = 652) 167 mg/dL 70-110 H CALCIUM (BEAKER) (test code = 697) 9.2 mg/dL 8.5-10.5 EGFR (BEAKER) (test code = 1092) 5 mL/min/1.73 sq m Interpretation of eG FR values Stage Description Result G1 Normal or high >=90 G2 Mildly decreased 60-89 G3a Mildly to moderately 45-59 G3b Moderately to severely 30-44 G4 Severly decreased 15-29 G5 Kidney failure <15Reported eGFR is based on the CKD-EPI 2020 equation that does not use a race coefficientEstimated GFR is not as accurate as Creatinine Clearance in predicting glomerular filtration rate. Estimated GFR is not applicable for dialysis patients Contracts Paralegal ID - [id number] ID - [id number] ID - [id number] ID - [id number] ID - [id number] ID - CQUQ51Vhgdwomr ID - [id number] ID - [id number] ID - [id number] ID - [id number] 04:36:00* Test Item Value Reference Range Interpretation Comme nts MAGNESIUM (BEAKER) (test code = 627) 1.9 mg/dL 1.5-3.0 Specimen sligh tly hemolyzed Contracts Paralegal ID - [id number] ID - [id number] ID - [id number] ID - [id number] VANCOMYCIN LEVEL, [id number] 04:31:57* Test Item Value Reference Range Interpretation Comme nts VANCOMYCIN RANDOM (BEAKER) ( test code = 523) 9.3 ug/mL Reference Range: No NormalsOperator ID - [id number], [id number] 04:21:33* Test Item Value Reference Range Interpretation Comme nts CALCIUM IONIZED (BEAKER) (te st code = 698) 1.07 mmol/L 1.12-1.27 L PH, BLOOD (BEAKER) (test cod e = 1810) 7.32 HEMOGLOBIN AND [id number] 02:10:47* Test Item Value Reference Range Interpretation Comme nts HEMOGLOBIN (BEAKER) (test co de = 410) 17.0 GM/DL 13.0-16.8 H HEMATOCRIT (BEAKER) (test co de = 411) 55.5 % 36.0-50.0 H TSH/FREE T4 IF [id number] 00:30:43* Test Item Value Reference Range Interpretation Comme nts THYROID STIMULATING HORMONE (BEAKER) (test code = 772) 0.640 uIU/mL 0.350-5.500 Contracts Paralegal ID - JUSTINPOCT-GLUCOSE [id number] 00:15:27* Test Item Value Reference Range Interpretation Comme nts POC-GLUCOSE METER (BEAKER) (test code = 1538) 121 mg/dL 70-110 H : TESTED AT [place] [id number]: Contracts Paralegal/Transmission Calibration Engineer ID = [id number] for Rashid Kirk BLOOD GAS, [id number] 00:12:21* Test Item Value Reference Range Interpretation Comme nts PH VENOUS (BEAKER) (test cod e = 701) 7.29 7.32-7.42 L PCO2 VENOUS (BEAKER) (test c ode = 755) 46 mm Hg 41-51 PO2 VENOUS (BEAKER) (test co de = 702) 57 mm Hg 25-40 H O2 SATURATION VENOUS (BEAKER ) (test code = 703) 86.5 % 40.0-70.0 H HCO3 VENOUS (BEAKER) (test c ode = 705) 22 mmol/L 21-29 BASE EXCESS VENOUS (BEAKER) (test code = 704) -5.0 mmol/L -2.0-3.0 L PATIENT TEMPERATURE (BEAKER) (test code = 1818) 37.0 FIO2 (BEAKER) (test code = 1819) 21.0 LACTIC ACID, [id number] 23:30:30* Test Item Value Reference Range Interpretation Comme nts LACTATE BLOOD VENOUS (2) (BEAKER) (test code = 2872) 2.28 mmol/L See_Comment HH Specimen lew andreina hemolyzed [Automated message] The system which generated this result transmitted reference range: 0.50-<2.00. The reference range was not used to interpret this result as normal/abnormal. Contracts Paralegal ID - JUSTINOperator ID - JUSTINOperator ID - JUSTINOperator ID - AJAY TROPONIN [id number] 21:45:14* Test Item Value Reference Range Interpretation Comme nts TROPONIN I (BEAKER) (test co de = 397) 1.98 ng/mL 0.00-0.15 Troponin I (TnI) levels must be interpreted in the context of the presenting symptoms and the clinical findings. Elevated TnI levels indicate myocardial damage, but are not specific for ischemic heart disease. Elevated TnI levels are seen in patients with other cardiac conditions (including myocarditis and congestive heart failure), and slight TnI elevations occur in patients with other conditions, including sepsis, renal failure, acidosis, acute neurological disease, and persistent tachyarrhythmia.Contracts Paralegal ID - JUSTINXR CHEST 1 VIEW PORTABLE / [id number] 20:56:10 [facility] : 1955 Sex: MChest one view:HISTORY: Shortness of breathThe study is limited by radiographic technique. There is noconsolidation or pleural effusion noted. Cardiac size appears withinnormal limits. The bony thorax as visualized appears intact.Electronically Signed By: Faustino Castillo02/11/2023 20:58 CDTWorkstation Name: [id number] NATRIURETIC FACTOR (BNP)2023-02-11 20:53:12* Test Item Value Reference Range Interpretation Comme nts B-TYPE NATRIURETIC PEPTIDE ( BEAKER) (test code = 700) 59 pg/mL 0-100 Contracts Paralegal ID - [id number] W/PLT COUNT & AUTO [id number] 20:49:21* Test Item Value Reference Range Interpretation Comme nts WHITE BLOOD CELL COUNT (BEAK ER) (test code = 775) 31.9 K/ L 4.0-10.0 H RED BLOOD CELL COUNT (BEAKER ) (test code = 761) 6.77 M/ L 4.20-5.80 H HEMOGLOBIN (BEAKER) (test co de = 410) 18.5 GM/DL 13.0-16.8 H HEMATOCRIT (BEAKER) (test co de = 411) 60.1 % 36.0-50.0 H MEAN CORPUSCULAR VOLUME (USMAN KER) (test code = 753) 89 fL 82-99 MEAN CORPUSCULAR HEMOGLOBIN (BEAKER) (test code = 751) 27.3 pg 27.0-33.0 MEAN CORPUSCULAR HEMOGLOBIN CONC (BEAKER) (test code = 752) 30.8 GM/DL 32.0-36.0 L RED CELL DISTRIBUTION WIDTH (BEAKER) (test code = 412) 20.5 % 12.0-15.0 H PLATELET COUNT (BEAKER) (zaki t code = 756) 168 K/CU MM 150-430 MEAN PLATELET VOLUME (BEAKER ) (test code = 754) 11.0 fL 6.0-11.5 NUCLEATED RED BLOOD CELLS (BEAKER) (test code = 413) 0 /100 WBC 0-0 (MANUAL DIFFERENTIAL)2023-02-11 20:49:21* Test Item Value Reference Range Interpretation Comme nts NEUTROPHILS - REL (DIFF) (BE VAL) (test code = 1359) 95 % LYMPHOCYTES - REL (DIFF) (BE VAL) (test code = 1360) 1 % MONOCYTES - REL (DIFF) (BEAK ER) (test code = 1361) 4 % NEUTROPHILS - ABS (DIFF) (BE VAL) (test code = 1365) 30.31 K/ L 1.80-8.00 H LYMPHOCYTES - ABS (DIFF) (BE VAL) (test code = 1366) 0.32 K/ L 1.48-4.50 L MONOCYTES - ABS (DIFF) (BEAK ER) (test code = 1367) 1.28 K/ L 0.00-1.30 TOTAL COUNTED (BEAKER) (test code = 1351) 100 WBC MORPHOLOGY (BEAKER) (zaki t code = 487) Normal PLT MORPHOLOGY (BEAKER) (zaki t code = 486) Normal RBC MORPHOLOGY (BEAKER) (zaki t code = 762) Normal COMPREHENSIVE METABOLIC [id number] 20:45:29* Test Item Value Reference Range Interpretation Comme nts TOTAL PROTEIN (BEAKER) (test code = 770) 7.0 gm/dL 6.0-8.5 Specimen slightl y hemolyzed ALBUMIN (BEAKER) (test code = 1145) 3.7 g/dL 3.5-5.0 Specimen slig htly hemolyzed ALKALINE PHOSPHATASE (BEAKER) (test code = 346) 143 U/L 30-115 H BILIRUBIN TOTAL (BEAKER) (test code = 377) 0.9 mg/dL 0.1-1.2 Specimen slightl y hemolyzed SODIUM (BEAKER) (test code = 381) 141 meq/L 135-148 POTASSIUM (BEAKER) (test code = 379) 5.4 meq/L 3.6-5.5 Specimen sligh tly hemolyzed CHLORIDE (BEAKER) (test code = 382) 99 meq/L 98-106 CO2 (BEAKER) (test code = 355) 16 meq/L 20-29 L BLOOD UREA NITROGEN (BEAKER) (test code = 354) 55 mg/dL 10-26 H CREATININE (BEAKER) (test code = 358) 10.76 mg/dL 0.50-1.20 H Specimen slightl y hemolyzed GLUCOSE RANDOM (BEAKER) (test code = 652) 89 mg/dL 70-110 CALCIUM (BEAKER) (test code = 697) 10.0 mg/dL 8.5-10.5 AST (SGOT) (BEAKER) (test code = 353) 40 U/L 5-40 Specimen slightl y hemolyzed ALT (SGPT) (BEAKER) (test code = 347) 32 U/L 5-50 Specimen slightl y hemolyzed EGFR (BEAKER) (test code = 1092) 5 mL/min/1.73 sq m Interpretation of eG FR values Stage Description Result G1 Normal or high >=90 G2 Mildly decreased 60-89 G3a Mildly to moderately 45-59 G3b Moderately to severely 30-44 G4 Severly decreased 15-29 G5 Kidney failure <15Reported eGFR is based on the CKD-EPI 2020 equation that does not use a race coefficientEstimated GFR is not as accurate as Creatinine Clearance in predicting glomerular filtration rate. Estimated GFR is not applicable for dialysis patients Contracts Paralegal ID - [id number] ID - [id number] ID - [id number] ID - [id number] ID- [id number] ID - [id number] ID - [id number] ID - OODLS042Qwemvgic ID - UZNHR418Gbkidgbl ID - VPXSQ467Rtbgoyrl ID - KOCXO081Cqbbsbkm ID - [id number] ID - [id number] ID -[id number] ID - ZYASQ557Hhbuydts ID - [id number] PROTHROMBIN TIME/[id number] 20:44:49* Test Item Value Reference Range Interpretation Comme nts PROTIME ([employer]) (test code = 759) 14.3 seconds 9.3-12.0 H Final Informat ion (Auto Output) INR (BEAKER) (test code = 370) 1.36 See_Comment Final Informatio n (Auto Output) [Automated message] The system which generated this result transmitted reference range: <=5.90. The reference range was not used to interpret this result as normal/abnormal. RECOMMENDED COUMADIN/WARFARIN INR THERAPY RANGESSTANDARD DOSE: 2.0 - 3.0 Includes: PROPHYLAXIS for venous thrombosis, systemic embolization; TREATMENT for venous thrombosis and/or pulmonary embolus.HIGH RISK: Target INR is 2.5-3.5 for patients with mechanical heart valves.[id number] 20:44:49* Test Item Value Reference Range Interpretation Comme nts PARTIAL THROMBOPLASTIN TIME (BEAKER) (test code = 760) 30.9 seconds 23.0-35.0 Final Informatio n (Auto Output) [id number] 20:43:51* Test Item Value Reference Range Interpretation Comme nts MAGNESIUM (BEAKER) (test code = 627) 1.9 mg/dL 1.5-3.0 Specimen sligh tly hemolyzed [employer] Paralegal ID - [id number] ID - [id number] ID - [id number] ID - [id number] 20:43:45* Test Item Value Reference Range Interpretation Comme nts PHOSPHORUS (BEAKER) (test code = 604) 8.3 mg/dL 2.5-4.5 H Specimen sligh tly hemolyzed Contracts Paralegal ID - [id number]/RT-PCR ([facility])2023-02-11 20:43:34* Test Item Value Reference Range Interpretation Comme nts SARS-COV2/RT-PCR (test code = 2397547) Negative Negative The SARS-CoV-2 t arget nucleic acids are not detected in this specimen. Negative results do not preclude SARS-CoV-2 infection and should not be used as the sole basis for patient management decisions. Negative results must be combined with clinical observations, patient history, and epidemiological information. A false negative result may occur if a specimen is improperly collected, transported or handled. This SARS CoV-2 test is a rapid, real-time RT-PCR test intended for the qualitative detection of nucleic acid from SARS-CoV-2 in a nasopharyngeal swab specimen collected from individuals suspected of COVID-19 by their healthcare provider. This test has been authorized by FDA under an EUA for use by authorized laboratories. This test is only authorized for the duration of the declaration that circumstances exist justifying the authorization of emergency use of in vitro diagnostic tests for detection and/or diagnosis of COVID-19 underSection 564(b)(1) of the Federal Food, Drug and Cosmetic Act, 21 U.S.C. 360bbb-3(b)(1), unless the authorization is terminated or revoked sooner. Fact Sheet for Healthcare Providers: https://www.EPS.com/Documents/Xpert%20Xpress%20SARS%20CoV-2/Fact%20Sheets/302-3802%20SARS-COV -2%20HEALTHCARE%20PROVIDERS%20FACT%20SHEET.pdf Fact Sheet for Healthcare Patients: https://www.MedShape/Documents/Xpe rt%20Xpress%20SARS%20CoV-2/Fact%20Sheets/302-3801%30ZIMN-QAQ-9%20PATIENT%20FACT% 20SHEET.pdfLIPID [id number] 20:43:12* Test Item Value Reference Range Interpretation Comme nts TRIGLYCERIDES (BEAKER) (test code = 540) 105 mg/dL Specimen sligh tly hemolyzed CHOLESTEROL (BEAKER) (test code = 631) 182 mg/dL Specimen sligh tly hemolyzed HDL CHOLESTEROL (BEAKER) (test code = 976) 46 mg/dL LDL CHOLESTEROL CALCULATED (BEAKER) (test code = 633) 115 mg/dL Triglyceride Reference Range: Low Risk <150 Borderline 150-199 High Risk 200-499 Very High Risk >=500Cholesterol Reference Range: Low Risk <200 Borderline 200-239 High Risk >240HDL Cholesterol Reference Range: Low Risk >=60 High Risk <40LDL Cholesterol Reference Range: Optimal <100 Near Optimal 100-129 Borderline 130-159 High 160-189 Very High >=190 Contracts Paralegal ID - [id number] ID - [id number] ID - [id number] RSV [id number] 20:40:06* Test Item Value Reference Range Interpretation Comme [facility] RSV RAPID ANTIGEN (BEAKER) (test code = 1078) Negative Negative, Inconclusive RAPID INFLUENZA A&B [id number] 20:33:31* Test Item Value Reference Range Interpretation Comme [facility] RAPID INFLUENZA A AG (BEAKER ) (test code = 1622) Negative Negative, Inconclusive RAPID INFLUENZA B AG (BEAKER ) (test code = 1623) Negative Negative, Inconclusive CALCIUM, [id number] 20:27:41* Test Item Value Reference Range Interpretation Comme [facility] CALCIUM IONIZED (BEAKER) (te st code = 698) 0.92 mmol/L 1.12-1.27 L PH, BLOOD (BEAKER) (test cod e = 1810) 7.32 BLOOD GAS, [id number] 20:22:10* Test Item Value Reference Range Interpretation Comme nts PH VENOUS (BEAKER) (test cod e = 701) 7.25 7.32-7.42 L PCO2 VENOUS (BEAKER) (test c ode = 755) 57 mm Hg 41-51 H PO2 VENOUS (BEAKER) (test co de = 702) 39 mm Hg 25-40 O2 SATURATION VENOUS (BEAKER ) (test code = 703) 64.0 % 40.0-70.0 HCO3 VENOUS (BEAKER) (test c ode = 705) 24 mmol/L 21-29 BASE EXCESS VENOUS (BEAKER) (test code = 704) -4.6 mmol/L -2.0-3.0 L PATIENT TEMPERATURE (BEAKER) (test code = 1818) 37.0 FIO2 (BEAKER) (test code = 1819) 21.0 POCT-GLUCOSE [id number] 19:47:40* Test Item Value Reference Range Interpretation Comme nts POC-GLUCOSE METER (BEAKER) (test code = 1538) 93 mg/dL 70-110 : TESTED AT [facility] [address] [address]: Contracts Paralegal/Transmission Calibration Engineer ID = [id number] for Agueda Wooten BLOOD [id number] 09:26:03* Test Item Value Reference Range Interpretation Comme nts CULTURE (BEAKER) (test code = 1095) See comment Patient registered under incorrect medical record; misfiled document moved to correct medical record. This is a corrected report. Previous result was: No growth in 5 days. Verified 11/12/2022 0600 by Background User LabMRSA SCREEN 2022-12-23 09:20:54* Test Item Value Reference Range Interpretation Comme nts CULTURE (BEAKER) (test code = 1095) See comment A Methicillin r esistant Staphylococcus aureus Patient registered under incorrect medical record; misfiled document moved to correct medical record. This is a corrected organism result. Previous result was Methicillin resistant Staphylococcus aureus on 11/10/2022 at 0926 CDTMAGNESIUM 2022-12-23 09:02:05* Test Item Value Reference Range Interpretation Comme nts MAGNESIUM (BEAKER) (test code = 627) 2.1 mg/dL 1.6-2.6 Patient regist ered under incorrect medical record; misfiled document moved to correct medical record.This is a corrected result. Previous result was 2.1 mg/dL on 11/11/2022 at 0459 CDT Contracts Paralegal ID - [id number] 09:02:05* Test Item Value Reference Range Interpretation Comme nts PHOSPHORUS (BEAKER) (test code = 604) 7.3 mg/dL 2.3-4.7 H Patient regist ered under incorrect medical record; misfiled document moved to correct medical record.This is a corrected result. Previous result was 7.3 mg/dL on 11/11/2022 at 0459 CDT Contracts Paralegal ID - MMBASIC METABOLIC [id number] 09:02:05* Test Item Value Reference Range Interpretation Comme nts SODIUM (BEAKER) (test code = 381) 135 meq/L 136-145 L Patient regist ered under incorrect medical record; misfiled document moved to correct medical record.This is a corrected result. Previous result was 135 meq/L on 11/11/2022 at 0507 CDT POTASSIUM (BEAKER) (test code = 379) 5.0 meq/L 3.5-5.1 Patient register ed under incorrect medical record; misfiled document moved to correct medical record.This is a corrected result. Previous result was 5.0 meq/L on 11/11/2022 at 0507 CDT CHLORIDE (BEAKER) (test code = 382) 96 meq/L 98-107 L Patient regist ered under incorrect medical record; misfiled document moved to correct medical record.This is a corrected result. Previous result was 96 meq/L on 11/11/2022 at 0507 CDT CO2 (BEAKER) (test code = 355) 21 meq/L 22-29 L Patient regist ered under incorrect medical record; misfiled document moved to correct medical record.This is a corrected result. Previous result was 21 meq/L on 11/11/2022 at 0507 CDT BLOOD UREA NITROGEN (BEAKER) (test code = 354) 57 mg/dL 7-21 H Patient regist ered under incorrect medical record; misfiled document moved to correct medical record.This is a corrected result. Previous result was 57 mg/dL on 11/11/2022 at 0507 CDT CREATININE (BEAKER) (test code = 358) 10.14 mg/dL 0.57-1.25 H Patient register ed under incorrect medical record; misfiled document moved to correct medical record.This is a corrected result. Previous result was 10.14 mg/dL on 11/11/2022 at 0507 CDT GLUCOSE RANDOM (HERB) (test code = 652) 92 mg/dL 70-105 Patient register ed under incorrect medical record; misfiled document moved to correct medical record.This is a corrected result. Previous result was 92 mg/dL on 11/11/2022 at 0507 CDT CALCIUM (HERB) (test code = 697) 10.0 mg/dL 8.4-10.2 Patient regist ered under incorrect medical record; misfiled document moved to correct medical record.This is a corrected result. Previous result was 10.0 mg/dL on 11/11/2022 at 0507 CDT EGFR (HERB) (test code = 1092) 5 mL/min/1.73 sq m Interpretation of eG FR values Stage Description Result G1 Normal or high >=90 G2 Mildly decreased 60-89 G3a Mildly to moderately 45-59 G3b Moderately to severely 30-44 G4 Severly decreased 15-29 G5 Kidney failure <15Reported eGFR is based on the CKD-EPI 2020 equation that does not use a race coefficientEstimated GFR is not as accurate as Creatinine Clearance in predicting glomerular filtration rate. Estimated GFR is not applicable for dialysis patientsPatient registered under incorrect medical record; misfiled document moved to correct medical record.This is a corrected result. Previous result was 5 mL/min/1.73 sq m on 11/11/2022 at 0507 CDT Contracts Paralegal ID - MMCBC W/PLT COUNT & AUTO [id number] 08:58:15* Test Item Value Reference Range Interpretation Comme nts WHITE BLOOD CELL COUNT (HERB) (test code = 775) 10.4 K/ L 3.5-10.5 Patient register ed under incorrect medical record; misfiled document moved to correct medical record.This is a corrected result. Previous result was 10.4 K/ L on 11/11/2022 at 0436 CDT RED BLOOD CELL COUNT (HERB) (test code = 761) 5.07 M/ L 4.63-6.08 Patient register ed under incorrect medical record; misfiled document moved to correct medical record.This is a corrected result. Previous result was 5.07 M/ L on 11/11/2022 at 0436 CDT HEMOGLOBIN (BEAKER) (test code = 410) 13.9 GM/DL 13.7-17.5 Patient regist ered under incorrect medical record; misfiled document moved to correct medical record.This is a corrected result. Previous result was 13.9 GM/DL on 11/11/2022 at 0436 CDT HEMATOCRIT (BEAKER) (test code = 411) 44.2 % 40.1-51.0 Patient regist ered under incorrect medical record; misfiled document moved to correct medical record.This is a corrected result. Previous result was 44.2 % on 11/11/2022 at 0436 CDT MEAN CORPUSCULAR VOLUME (BEAKER) (test code = 753) 87 fL 79-92 Patient register ed under incorrect medical record; misfiled document moved to correct medical record.This is a corrected result. Previous result was 87 fL on 11/11/2022 at 0436 CDT MEAN CORPUSCULAR HEMOGLOBIN (BEAKER) (test code = 751) 27.4 pg 25.7-32.2 Patient regist ered under incorrect medical record; misfiled document moved to correct medical record.This is a corrected result. Previous result was 27.4 pg on 11/11/2022 at 0436 CDT MEAN CORPUSCULAR HEMOGLOBIN CONC (BEAKER) (test code = 752) 31.4 GM/DL 32.3-36.5 L Patient register ed under incorrect medical record; misfiled document moved to correct medical record.This is a corrected result. Previous result was 31.4 GM/DL on 11/11/2022 at 0436 CDT RED CELL DISTRIBUTION WIDTH (BEAKER) (test code = 412) 16.5 % 11.6-14.4 H Patient register ed under incorrect medical record; misfiled document moved to correct medical record.This is a corrected result. Previous result was 16.5 % on 11/11/2022 at 0436 CDT PLATELET COUNT (BEAKER) (test code = 756) 189 K/CU MM 150-450 Patient register ed under incorrect medical record; misfiled document moved to correct medical record.This is a corrected result. Previous result was 189 K/CU MM on 11/11/2022 at 0436 CDT MEAN PLATELET VOLUME (BEAKER) (test code = 754) 10.3 fL 9.4-12.4 Patient register ed under incorrect medical record; misfiled document moved to correct medical record.This is a corrected result. Previous result was 10.3 fL on 11/11/2022 at 0436 CDT NUCLEATED RED BLOOD CELLS (BEAKER) (test code = 413) 0 /100 WBC 0-0 Patient register ed under incorrect medical record; misfiled document moved to correct medical record.This is a corrected result. Previous result was 0 /100 WBC on 11/11/2022 at 0436 CDT NEUTROPHILS RELATIVE PERCENT (BEAKER) (test code = 429) 86 % Patient register ed under incorrect medical record; misfiled document moved to correct medical record.This is a corrected result. Previous result was 86 % on 11/11/2022 at 0436 CDT LYMPHOCYTES RELATIVE PERCENT (BEAKER) (test code = 430) 6 % Patient register ed under incorrect medical record; misfiled document moved to correct medical record.This is a corrected result. Previous result was 6 % on 11/11/2022 at 0436 CDT MONOCYTES RELATIVE PERCENT (BEAKER) (test code = 431) 8 % Patient register ed under incorrect medical record; misfiled document moved to correct medical record.This is a corrected result. Previous result was 8 % on 11/11/2022 at 0436 CDT EOSINOPHILS RELATIVE PERCENT (BEAKER) (test code = 432) 0 % Patient register ed under incorrect medical record; misfiled document moved to correct medical record.This is a corrected result. Previous result was 0 % on 11/11/2022 at 0436 CDT BASOPHILS RELATIVE PERCENT (BEAKER) (test code = 437) 0 % Patient register ed under incorrect medical record; misfiled document moved to correct medical record.This is a corrected result. Previous result was 0 % on 11/11/2022 at 0436 CDT NEUTROPHILS ABSOLUTE COUNT (BEAKER) (test code = 670) 8.88 K/ L 1.78-5.38 H Patient register ed under incorrect medical record; misfiled document moved to correct medical record.This is a corrected result. Previous result was 8.88 K/ L on 11/11/2022 at 0436 CDT LYMPHOCYTES ABSOLUTE COUNT (BEAKER) (test code = 414) 0.59 K/ L 1.32-3.57 L Patient register ed under incorrect medical record; misfiled document moved to correct medical record.This is a corrected result. Previous result was 0.59 K/ L on 11/11/2022 at 0436 CDT MONOCYTES ABSOLUTE COUNT (BEAKER) (test code = 415) 0.81 K/ L 0.30-0.82 Patient register ed under incorrect medical record; misfiled document moved to correct medical record.This is a corrected result. Previous result was 0.81 K/ L on 11/11/2022 at 0436 CDT EOSINOPHILS ABSOLUTE COUNT (BEAKER) (test code = 416) 0.01 K/ L 0.04-0.54 L Patient register ed under incorrect medical record; misfiled document moved to correct medical record.This is a corrected result. Previous result was 0.01 K/ L on 11/11/2022 at 0436 CDT BASOPHILS ABSOLUTE COUNT (BEAKER) (test code = 417) 0.02 K/ L 0.01-0.08 Patient register ed under incorrect medical record; misfiled document moved to correct medical record. This is a corrected result. Previous result was 0.02 K/ L on 11/11/2022 at 0436 CDT IMMATURE GRANULOCYTES-RELATIVE PERCENT (BEAKER) (test code = 2801) 0.50 % 0.00-1.00 Patient register ed under incorrect medical record; misfiled document moved to correct medical record.This is a corrected result. Previous result was 0.50 % on 11/11/2022 at 0436 CDT [id number] 00:56:53* Test Item Value Reference Range Interpretation Comme nts MAGNESIUM (BEAKER) (test code = 627) 2.1 mg/dL 1.6-2.6 Patient regist ered under incorrect medical record; misfiled document moved to correct medical record. This is a corrected result. Previous result was 2.1 mg/dL on 11/10/2022 at 0337 CDT Contracts Paralegal ID - [id number] 00:56:53* Test Item Value Reference Range Interpretation Comme nts PHOSPHORUS (BEAKER) (test code = 604) 6.2 mg/dL 2.3-4.7 H Patient regist ered under incorrect medical record; misfiled document moved to correct medical record. This is a corrected result. Previous result was 6.2 mg/dL on 11/10/2022 at 0337 CDT Contracts Paralegal ID - ADMINBASIC METABOLIC [id number] 00:56:53* Test Item Value Reference Range Interpretation Comme nts SODIUM (BEAKER) (test code = 381) 135 meq/L 136-145 L Patient regist ered under incorrect medical record; misfiled document moved to correct medical record. This is a corrected result. Previous result was 135 meq/L on 11/10/2022 at 0401 CDT POTASSIUM (BEAKER) (test code = 379) 4.7 meq/L 3.5-5.1 Patient register ed under incorrect medical record; misfiled document moved to correct medical record. This is a corrected result. Previous result was 4.7 meq/L on 11/10/2022 at 0401 CDT CHLORIDE (BEAKER) (test code = 382) 97 meq/L 98-107 L Patient regist ered under incorrect medical record; misfiled document moved to correct medical record. This is a corrected result. Previous result was 97 meq/L on 11/10/2022 at 0401 CDT CO2 (BEAKER) (test code = 355) 23 meq/L 22-29 Patient regist ered under incorrect medical record; misfiled document moved to correct medical record. This is a corrected result. Previous result was 23 meq/L on 11/10/2022 at 0401 CDT BLOOD UREA NITROGEN (BEAKER) (test code = 354) 33 mg/dL 7-21 H Patient regist ered under incorrect medical record; misfiled document moved to correct medical record. This is a corrected result. Previous result was 33 mg/dL on 11/10/2022 at 0401 CDT CREATININE (BEAKER) (test code = 358) 7.59 mg/dL 0.57-1.25 H Patient register ed under incorrect medical record; misfiled document moved to correct medical record. This is a corrected result. Previous result was 7.59 mg/dL on 11/10/2022 at 0401 CDT GLUCOSE RANDOM (BEAKER) (test code = 652) 116 mg/dL 70-105 H Patient register ed under incorrect medical record; misfiled document moved to correct medical record. This is a corrected result. Previous result was 116 mg/dL on 11/10/2022 at 0401 CDT CALCIUM (HERB) (test code = 697) 10.3 mg/dL 8.4-10.2 H Patient regist ered under incorrect medical record; misfiled document moved to correct medical record. This is a corrected result. Previous result was 10.3 mg/dL on 11/10/2022 at 0401 CDT EGFR (HERB) (test code = 1092) 7 mL/min/1.73 sq m Interpretation of eG FR values Stage Description Result G1 Normal or high >=90 G2 Mildly decreased 60-89 G3a Mildly to moderately 45-59 G3b Moderately to severely 30-44 G4 Severly decreased 15-29 G5 Kidney failure <15Reported eGFR is based on the CKD-EPI 2020 equation that does not use a race coefficientEstimated GFR is not as accurate as Creatinine Clearance in predicting glomerular filtration rate. Estimated GFR is not applicable for dialysis patientsThis is a corrected result. Previous result was 7 mL/min/1.73 sq m on 11/10/2022 at 0401 CDT Contracts Paralegal ID - [id number] W/PLT COUNT & AUTO [id number] 00:53:04* Test Item Value Reference Range Interpretation Comme nts WHITE BLOOD CELL COUNT (HERB) (test code = 775) 11.6 K/ L 3.5-10.5 H Patient register ed under incorrect medical record; misfiled document moved to correct medical record. This is a corrected result. Previous result was 11.6 K/ L on 11/10/2022 at 0319 CDT RED BLOOD CELL COUNT (HERB) (test code = 761) 5.28 M/ L 4.63-6.08 Patient register ed under incorrect medical record; misfiled document moved to correct medical record. This is a corrected result. Previous result was 5.28 M/ L on 11/10/2022 at 0319 CDT HEMOGLOBIN (HERB) (test code = 410) 14.3 GM/DL 13.7-17.5 Patient regist ered under incorrect medical record; misfiled document moved to correct medical record. This is a corrected result. Previous result was 14.3 GM/DL on 11/10/2022 at 0319 CDT HEMATOCRIT (HERB) (test code = 411) 45.4 % 40.1-51.0 Patient regist ered under incorrect medical record; misfiled document moved to correct medical record. This is a corrected result. Previous result was 45.4 % on 11/10/2022 at 0319 CDT MEAN CORPUSCULAR VOLUME (BEAKER) (test code = 753) 86 fL 79-92 Patient register ed under incorrect medical record; misfiled document moved to correct medical record. This is a corrected result. Previous result was 86 fL on 11/10/2022 at 0319 CDT MEAN CORPUSCULAR HEMOGLOBIN (BEAKER) (test code = 751) 27.1 pg 25.7-32.2 Patient regist ered under incorrect medical record; misfiled document moved to correct medical record. This is a corrected result. Previous result was 27.1 pg on 11/10/2022 at 0319 CDT MEAN CORPUSCULAR HEMOGLOBIN CONC (BEAKER) (test code = 752) 31.5 GM/DL 32.3-36.5 L Patient register ed under incorrect medical record; misfiled document moved to correct medical record. This is a corrected result. Previous result was 31.5 GM/DL on 11/10/2022 at 0319 CDT RED CELL DISTRIBUTION WIDTH (BEAKER) (test code = 412) 16.9 % 11.6-14.4 H Patient register ed under incorrect medical record; misfiled document moved to correct medical record. This is a corrected result. Previous result was 16.9 % on 11/10/2022 at 0319 CDT PLATELET COUNT (BEAKER) (test code = 756) 200 K/CU MM 150-450 Patient register ed under incorrect medical record; misfiled document moved to correct medical record. This is a corrected result. Previous result was 200 K/CU MM on 11/10/2022 at 0319 CDT MEAN PLATELET VOLUME (BEAKER) (test code = 754) 10.9 fL 9.4-12.4 Patient register ed under incorrect medical record; misfiled document moved to correct medical record. This is a corrected result. Previous result was 10.9 fL on 11/10/2022 at 0319 CDT NUCLEATED RED BLOOD CELLS (BEAKER) (test code = 413) 0 /100 WBC 0-0 This is a correc sydney result. Previous result was 0 /100 WBC on 11/10/2022 at 0319 CDT NEUTROPHILS RELATIVE PERCENT (BEAKER) (test code = 429) 90 % Patient register ed under incorrect medical record; misfiled document moved to correct medical record. This is a corrected result. Previous result was 90 % on 11/10/2022 at 0319 CDT LYMPHOCYTES RELATIVE PERCENT (BEAKER) (test code = 430) 4 % Patient register ed under incorrect medical record; misfiled document moved to correct medical record. This is a corrected result. Previous result was 4 % on 11/10/2022 at 0319 CDT MONOCYTES RELATIVE PERCENT (BEAKER) (test code = 431) 5 % Patient register ed under incorrect medical record; misfiled document moved to correct medical record. This is a corrected result. Previous result was 5 % on 11/10/2022 at 0319 CDT EOSINOPHILS RELATIVE PERCENT (BEAKER) (test code = 432) 0 % Patient register ed under incorrect medical record; misfiled document moved to correct medical record. This is a corrected result. Previous result was 0 % on 11/10/2022 at 0319 CDT BASOPHILS RELATIVE PERCENT (BEAKER) (test code = 437) 0 % Patient register ed under incorrect medical record; misfiled document moved to correct medical record. This is a corrected result. Previous result was 0 % on 11/10/2022 at 0319 CDT NEUTROPHILS ABSOLUTE COUNT (BEAKER) (test code = 670) 10.47 K/ L 1.78-5.38 H Patient register ed under incorrect medical record; misfiled document moved to correct medical record. This is a corrected result. Previous result was 10.47 K/ L on 11/10/2022 at 0319 CDT LYMPHOCYTES ABSOLUTE COUNT (BEAKER) (test code = 414) 0.51 K/ L 1.32-3.57 L Patient register ed under incorrect medical record; misfiled document moved to correct medical record. This is a corrected result. Previous result was 0.51 K/ L on 11/10/2022 at 0319 CDT MONOCYTES ABSOLUTE COUNT (BEAKER) (test code = 415) 0.56 K/ L 0.30-0.82 Patient register ed under incorrect medical record; misfiled document moved to correct medical record. This is a corrected result. Previous result was 0.56 K/ L on 11/10/2022 at 0319 CDT EOSINOPHILS ABSOLUTE COUNT (BEAKER) (test code = 416) 0.00 K/ L 0.04-0.54 L Patient register ed under incorrect medical record; misfiled document moved to correct medical record. This is a corrected result. Previous result was 0.00 K/ L on 11/10/2022 at 0319 CDT BASOPHILS ABSOLUTE COUNT (BEAKER) (test code = 417) 0.02 K/ L 0.01-0.08 Patient register ed under incorrect medical record; misfiled document moved to correct medical record. This is a corrected result. Previous result was 0.02 K/ L on 11/10/2022 at 0319 CDT IMMATURE GRANULOCYTES-RELATIVE PERCENT (BEAKER) (test code = 2801) 0.40 % 0.00-1.00 Patient register ed under incorrect medical record; misfiled document moved to correct medical record. This is a corrected result. Previous result was 0.40 % on 11/10/2022 at 0319 CDT HEMOGLOBIN AND [id number] 00:48:57* Test Item Value Reference Range Interpretation Comme nts HEMOGLOBIN (BEAKER) (test code = 410) 14.6 GM/DL 13.7-17.5 Patient regist ered under incorrect medical record; misfiled document moved to correct medical record. This is a corrected result. Previous result was 14.6 GM/DL on 11/09/2022 at 1402 CDT HEMATOCRIT (BEAKER) (test code = 411) 45.7 % 40.1-51.0 Patient regist ered under incorrect medical record; misfiled document moved to correct medical record. This is a corrected result. Previous result was 45.7 % on 11/09/2022 at 1402 CDT Contracts Paralegal ID - [id number] W/PLT COUNT & AUTO [id number] 00:48:11* Test Item Value Reference Range Interpretation Comme nts WHITE BLOOD CELL COUNT (BEAKER) (test code = 775) 11.8 K/ L 3.5-10.5 H Patient register ed under incorrect medical record; misfiled document moved to correct medical record. This is a corrected result. Previous result was 11.8 K/ L on 11/09/2022 at 0411 CDT RED BLOOD CELL COUNT (BEAKER) (test code = 761) 4.79 M/ L 4.63-6.08 Patient register ed under incorrect medical record; misfiled document moved to correct medical record. This is a corrected result. Previous result was 4.79 M/ L on 11/09/2022 at 0411 CDT HEMOGLOBIN (BEAKER) (test code = 410) 13.3 GM/DL 13.7-17.5 L Patient regist ered under incorrect medical record; misfiled document moved to correct medical record. This is a corrected result. Previous result was 13.3 GM/DL on 11/09/2022 at 0411 CDT HEMATOCRIT (BEAKER) (test code = 411) 42.0 % 40.1-51.0 Patient regist ered under incorrect medical record; misfiled document moved to correct medical record. This is a corrected result. Previous result was 42.0 % on 11/09/2022 at 0411 CDT MEAN CORPUSCULAR VOLUME (BEAKER) (test code = 753) 88 fL 79-92 Patient register ed under incorrect medical record; misfiled document moved to correct medical record. This is a corrected result. Previous result was 88 fL on 11/09/2022 at 0411 CDT MEAN CORPUSCULAR HEMOGLOBIN (BEAKER) (test code = 751) 27.8 pg 25.7-32.2 Patient regist ered under incorrect medical record; misfiled document moved to correct medical record. This is a corrected result. Previous result was 27.8 pg on 11/09/2022 at 0411 CDT MEAN CORPUSCULAR HEMOGLOBIN CONC (BEAKER) (test code = 752) 31.7 GM/DL 32.3-36.5 L Patient register ed under incorrect medical record; misfiled document moved to correct medical record. This is a corrected result. Previous result was 31.7 GM/DL on 11/09/2022 at 0411 CDT RED CELL DISTRIBUTION WIDTH (BEAKER) (test code = 412) 16.5 % 11.6-14.4 H Patient register ed under incorrect medical record; misfiled document moved to correct medical record. This is a corrected result. Previous result was 16.5 % on 11/09/2022 at 0411 CDT PLATELET COUNT (BEAKER) (test code = 756) 177 K/CU MM 150-450 Patient register ed under incorrect medical record; misfiled document moved to correct medical record. This is a corrected result. Previous result was 177 K/CU MM on 11/09/2022 at 0411 CDT MEAN PLATELET VOLUME (BEAKER) (test code = 754) 10.9 fL 9.4-12.4 Patient register ed under incorrect medical record; misfiled document moved to correct medical record. This is a corrected result. Previous result was 10.9 fL on 11/09/2022 at 0411 CDT NUCLEATED RED BLOOD CELLS (BEAKER) (test code = 413) 0 /100 WBC 0-0 Patient register ed under incorrect medical record; misfiled document moved to correct medical record. This is a corrected result. Previous result was 0 /100 WBC on 11/09/2022 at 0411 CDT NEUTROPHILS RELATIVE PERCENT (BEAKER) (test code = 429) 90 % Patient register ed under incorrect medical record; misfiled document moved to correct medical record. This is a corrected result. Previous result was 90 % on 11/09/2022 at 0411 CDT LYMPHOCYTES RELATIVE PERCENT (BEAKER) (test code = 430) 4 % Patient register ed under incorrect medical record; misfiled document moved to correct medical record. This is a corrected result. Previous result was 4 % on 11/09/2022 at 0411 CDT MONOCYTES RELATIVE PERCENT (BEAKER) (test code = 431) 5 % Patient register ed under incorrect medical record; misfiled document moved to correct medical record. This is a corrected result. Previous result was 5 % on 11/09/2022 at 0411 CDT EOSINOPHILS RELATIVE PERCENT (BEAKER) (test code = 432) 0 % Patient register ed under incorrect medical record; misfiled document moved to correct medical record. This is a corrected result. Previous result was 0 % on 11/09/2022 at 0411 CDT BASOPHILS RELATIVE PERCENT (BEAKER) (test code = 437) 0 % Patient register ed under incorrect medical record; misfiled document moved to correct medical record. This is a corrected result. Previous result was 0 % on 11/09/2022 at 0411 CDT NEUTROPHILS ABSOLUTE COUNT (BEAKER) (test code = 670) 10.69 K/ L 1.78-5.38 H Patient register ed under incorrect medical record; misfiled document moved to correct medical record. This is a corrected result. Previous result was 10.69 K/ L on 11/09/2022 at 0411 CDT LYMPHOCYTES ABSOLUTE COUNT (BEAKER) (test code = 414) 0.44 K/ L 1.32-3.57 L Patient register ed under incorrect medical record; misfiled document moved to correct medical record. This is a corrected result. Previous result was 0.44 K/ L on 11/09/2022 at 0411 CDT MONOCYTES ABSOLUTE COUNT (BEAKER) (test code = 415) 0.62 K/ L 0.30-0.82 Patient register ed under incorrect medical record; misfiled document moved to correct medical record. This is a corrected result. Previous result was 0.62 K/ L on 11/09/2022 at 0411 CDT EOSINOPHILS ABSOLUTE COUNT (BEAKER) (test code = 416) 0.00 K/ L 0.04-0.54 L Patient register ed under incorrect medical record; misfiled document moved to correct medical record. This is a corrected result. Previous result was 0.00 K/ L on 11/09/2022 at 0411 CDT BASOPHILS ABSOLUTE COUNT (BEAKER) (test code = 417) 0.02 K/ L 0.01-0.08 Patient register ed under incorrect medical record; misfiled document moved to correct medical record. This is a corrected result. Previous result was 0.02 K/ L on 11/09/2022 at 0411 CDT IMMATURE GRANULOCYTES-RELATIVE PERCENT (BEAKER) (test code = 2801) 0.60 % 0.00-1.00 Patient register ed under incorrect medical record; misfiled document moved to correct medical record. This is a corrected result. Previous result was 0.60 % on 11/09/2022 at 0411 CDT TSH/FREE T4 IF [id number] 00:43:57* Test Item Value Reference Range Interpretation Comme nts THYROID STIMULATING HORMONE (BEAKER) (test code = 772) 0.184 uIU/mL 0.350-4.940 L Patient regist ered under incorrect medical record; misfiled document moved to correct medical record. This is a corrected result. Previous result was 0.184 uIU/mL on 11/11/2022 at 0508 CDT Contracts Paralegal ID - [id number], [id number] 00:43:57* Test Item Value Reference Range Interpretation Comme nts FREE T4 (BEAKER) (test code = 655) 0.79 ng/dL 0.70-1.48 Patient regist ered under incorrect medical record; misfiled document moved to correct medical record. This is a corrected result. Previous result was 0.79 ng/dL on 11/11/2022 at 0814 CDT Contracts Paralegal ID - [id number] 00:35:55* Test Item Value Reference Range Interpretation Comme nts MAGNESIUM (BEAKER) (test code = 627) 2.3 mg/dL 1.6-2.6 Patient regist ered under incorrect medical record; misfiled document moved to correct medical record. This is a corrected result. Previous result was 2.3 mg/dL on 11/09/2022 at 0420 CDT Contracts Paralegal ID - WALESKA [id number] 00:35:55* Test Item Value Reference Range Interpretation Comme nts PHOSPHORUS (BEAKER) (test code = 604) 6.1 mg/dL 2.3-4.7 H Patient regist ered under incorrect medical record; misfiled document moved to correct medical record. This is a corrected result. Previous result was 6.1 mg/dL on 11/09/2022 at 0420 CDT Contracts Paralegal ID - WALESKA WBASIC METABOLIC [id number] 00:35:55* Test Item Value Reference Range Interpretation Comme nts SODIUM (BEAKER) (test code = 381) 136 meq/L 136-145 Patient regist ered under incorrect medical record; misfiled document moved to correct medical record. This is a corrected result. Previous result was 136 meq/L on 11/09/2022 at 0423 CDT POTASSIUM (BEAKER) (test code = 379) 5.4 meq/L 3.5-5.1 H Patient register ed under incorrect medical record; misfiled document moved to correct medical record. This is a corrected result. Previous result was 5.4 meq/L on 11/09/2022 at 0423 CDT CHLORIDE (BEAKER) (test code = 382) 98 meq/L 98-107 Patient regist ered under incorrect medical record; misfiled document moved to correct medical record. This is a corrected result. Previous result was 98 meq/L on 11/09/2022 at 0423 CDT CO2 (BEAKER) (test code = 355) 25 meq/L 22-29 Patient regist ered under incorrect medical record; misfiled document moved to correct medical record. This is a corrected result. Previous result was 25 meq/L on 11/09/2022 at 0423 CDT BLOOD UREA NITROGEN (HERB) (test code = 354) 37 mg/dL 7-21 H Patient regist ered under incorrect medical record; misfiled document moved to correct medical record. This is a corrected result. Previous result was 37 mg/dL on 11/09/2022 at 0423 CDT CREATININE (HERB) (test code = 358) 9.42 mg/dL 0.57-1.25 H Patient register ed under incorrect medical record; misfiled document moved to correct medical record. This is a corrected result. Previous result was 9.42 mg/dL on 11/09/2022 at 0423 CDT GLUCOSE RANDOM (HERB) (test code = 652) 109 mg/dL 70-105 H Patient register ed under incorrect medical record; misfiled document moved to correct medical record. This is a corrected result. Previous result was 109 mg/dL on 11/09/2022 at 0423 CDT CALCIUM (HERB) (test code = 697) 10.1 mg/dL 8.4-10.2 Patient regist ered under incorrect medical record; misfiled document moved to correct medical record. This is a corrected result. Previous result was 10.1 mg/dL on 11/09/2022 at 0423 CDT EGFR (HERB) (test code = 1092) 6 mL/min/1.73 sq m Interpretation of eG FR values Stage Description Result G1 Normal or high >=90 G2 Mildly decreased 60-89 G3a Mildly to moderately 45-59 G3b Moderately to severely 30-44 G4 Severly decreased 15-29 G5 Kidney failure <15Reported eGFR is based on the CKD-EPI 202 equation that does not use a race coefficientEstimated GFR is not as accurate as Creatinine Clearance in predicting glomerular filtration rate. Estimated GFR is not applicable for dialysis patientsThis is a corrected result. Previous result was 6 mL/min/1.73 sq m on 11/09/2022 at 0423 CDT Contracts Paralegal ID - WALESKA WTSH/FREE T4 IF [id number] 00:31:30* Test Item Value Reference Range Interpretation Comme nts THYROID STIMULATING HORMONE (BEAKER) (test code = 772) 0.169 uIU/mL 0.350-4.940 L Patient regist ered under incorrect medical record; misfiled document moved to correct medical record. This is a corrected result. Previous result was 0.169 uIU/mL on 11/09/2022 at 0444 CDT Contracts Paralegal ID - [id number], [id number] 00:31:30* Test Item Value Reference Range Interpretation Comme nts FREE T4 (BEAKER) (test code = 655) 0.85 ng/dL 0.70-1.48 Patient regist ered under incorrect medical record; misfiled document moved to correct medical record. This is a corrected result. Previous result was 0.85 ng/dL on 11/09/2022 at 0706 CDT [id number] 00:28:55* Test Item Value Reference Range Interpretation Comme nts MAGNESIUM (BEAKER) (test code = 627) 1.8 mg/dL 1.6-2.6 Patient regist ered under incorrect medical record; misfiled document moved to correct medical record. This is a corrected result. Previous result was 1.8 mg/dL on 11/08/2022 at 2205 CDT Contracts Paralegal ID - [id number] 00:28:55* Test Item Value Reference Range Interpretation Comme nts PHOSPHORUS (BEAKER) (test code = 604) 5.4 mg/dL 2.3-4.7 H Patient regist ered under incorrect medical record; misfiled document moved to correct medical record. This is a corrected result. Previous result was 5.4 mg/dL on 12/23/2022 at 0027 CDT Contracts Paralegal ID - ADMINBASIC METABOLIC [id number] 00:28:55* Test Item Value Reference Range Interpretation Comme nts SODIUM (BEAKER) (test code = 381) 134 meq/L 136-145 L Patient regist ered under incorrect medical record; misfiled document moved to correct medical record. This is a corrected result. Previous result was 134 meq/L on 11/08/2022 at 2207 CDT POTASSIUM (BEAKER) (test code = 379) 4.8 meq/L 3.5-5.1 Patient register ed under incorrect medical record; misfiled document moved to correct medical record. This is a corrected result. Previous result was 4.8 meq/L on 11/08/2022 at 2207 CDT CHLORIDE (BEAKER) (test code = 382) 96 meq/L 98-107 L Patient regist ered under incorrect medical record; misfiled document moved to correct medical record. This is a corrected result. Previous result was 96 meq/L on 11/08/2022 at 2207 CDT CO2 (BEAKER) (test code = 355) 23 meq/L 22-29 Patient regist ered under incorrect medical record; misfiled document moved to correct medical record. This is a corrected result. Previous result was 23 meq/L on 11/08/2022 at 2207 CDT BLOOD UREA NITROGEN (BEAKER) (test code = 354) 32 mg/dL 7-21 H Patient regist ered under incorrect medical record; misfiled document moved to correct medical record. This is a corrected result. Previous result was 32 mg/dL on 11/08/2022 at 2207 CDT CREATININE (BEAKER) (test code = 358) 8.82 mg/dL 0.57-1.25 H Patient register ed under incorrect medical record; misfiled document moved to correct medical record. This is a corrected result. Previous result was 8.82 mg/dL on 11/08/2022 at 2207 CDT GLUCOSE RANDOM (BEAKER) (test code = 652) 112 mg/dL 70-105 H Patient register ed under incorrect medical record; misfiled document moved to correct medical record. This is a corrected result. Previous result was 112 mg/dL on 11/08/2022 at 2207 CDT CALCIUM (BEAKER) (test code = 697) 10.0 mg/dL 8.4-10.2 Patient regist ered under incorrect medical record; misfiled document moved to correct medical record. This is a corrected result. Previous result was 10.0 mg/dL on 11/08/2022 at 2207 CDT EGFR (BEAKER) (test code = 1092) 6 mL/min/1.73 sq m Interpretation of eG FR values Stage Description Result G1 Normal or high >=90 G2 Mildly decreased 60-89 G3a Mildly to moderately 45-59 G3b Moderately to severely 30-44 G4 Severly decreased 15-29 G5 Kidney failure <15Reported eGFR is based on the CKD-EPI 2020 equation that does not use a race coefficientEstimated GFR is not as accurate as Creatinine Clearance in predicting glomerular filtration rate. Estimated GFR is not applicable for dialysis patientsThis is a corrected result. Previous result was 6 mL/min/1.73 sq m on 11/08/2022 at 2207 CDT Contracts Paralegal ID - ADMINVANCOMYCIN LEVEL, [id number] 00:21:03* Test Item Value Reference Range Interpretation Comme nts VANCOMYCIN TROUGH (BEAKER) (test code = 522) 11.2 ug/mL 10.0-20.0 Patient register ed under incorrect medical record; misfiled document moved to correct medical record. This is a corrected result. Previous result was 11.2 ug/mL on 11/09/2022 at 1413 CDT Contracts Paralegal ID - ADMINVANCOMYCIN LEVEL, [id number] 00:21:03* Test Item Value Reference Range Interpretation Comme nts VANCOMYCIN RANDOM (BEAKER) (test code = 523) 15.2 ug/mL Patient register ed under incorrect medical record; misfiled document moved to correct medical record. This is a corrected result. Previous result was 15.2 ug/mL on 11/09/2022 at 0418 CDT Reference Range: No NormalsOperator ID - WALESKA WPTH, [id number] 00:16:02* Test Item Value Reference Range Interpretation Comme nts PARATHYROID HORMONE INTACT (BEAKER) (test code = 577) 1173.5 pg/mL 8.5-72.5 H Patient register ed under incorrect medical record; misfiled document moved to correct medical record. This is a corrected result. Previous result was 1,173.5 pg/mL on 11/08/2022 at 0932 CDT Contracts Paralegal ID - MARCOCALCIUM, [id number] 00:15:01* Test Item Value Reference Range Interpretation Comme nts CALCIUM IONIZED (BEAKER) (test code = 698) 1.28 mmol/L 1.12-1.27 H Patient register ed under incorrect medical record; misfiled document moved to correct medical record. This is a corrected result. Previous result was 1.28 mmol/L on 11/08/2022 at 1233 CDT PH, BLOOD (BEAKER) (test code = 1810) 7.40 Patient keyshawn tered under incorrect medical record; misfiled document moved to correct medical record. This is a corrected result. Previous result was 7.40 on 11/08/2022 at 1233 CDT POCT-GLUCOSE [id number] 00:12:36* Test Item Value Reference Range Interpretation Comme nts POC-GLUCOSE METER (BEAKER) (test code = 1538) 64 mg/dL 70-110 L : TESTED AT [facility] [address] [facility], [address]: Contracts Paralegal/Transmission Calibration Engineer ID = [id number] for ZAYDA - TALITA, RUBYPatient registered under incorrect medical record; misfiled document moved to correct medical record. This is a corrected result. Previous result was 64 mg/dL on 11/11/2022 at 1323 CDT POCT-GLUCOSE [id number] 00:12:36* Test Item Value Reference Range Interpretation Comme nts POC-GLUCOSE METER (BEAKER) (test code = 1538) 79 mg/dL 70-110 : TESTED AT [address], [address]: Contracts Paralegal/Transmission Calibration Engineer ID = [id number] for Yulissa PorrasinePatient registered under incorrect medical record; misfiled document moved to correct medical record. This is a corrected result. Previous result was 79 mg/dL on 11/11/2022 at 1156 CDT POCT-GLUCOSE [id number] 00:12:36* Test Item Value Reference Range Interpretation Comme nts POC-GLUCOSE METER (BEAKER) (test code = 1538) 114 mg/dL 70-110 H : TESTED AT [facility] [address] [facility], [address]: Contracts Paralegal/Transmission Calibration Engineer ID = [id number] for Yrn Umanzorloulou registered under incorrect medical record; misfiled document moved to correct medical record. This is a corrected result. Previous result was 114 mg/dL on 11/10/2022 at 1727 CDT POCT-GLUCOSE [id number] 00:12:36* Test Item Value Reference Range Interpretation Comme nts POC-GLUCOSE METER (BEAKER) (test code = 1538) 111 mg/dL 70-110 H : TESTED AT [facility] [address] [facility], [address]: Contracts Paralegal/Transmission Calibration Engineer ID = [id number] for Ramon DegrootyerePatient registered under incorrect medical record; misfiled document moved to correct medical record. This is a corrected result. Previous result was 111 mg/dL on 11/10/2022 at 1232 CDT POCT-GLUCOSE [id number] 00:12:36* Test Item Value Reference Range Interpretation Comme nts POC-GLUCOSE METER (BEAKER) (test code = 1538) 97 mg/dL 70-110 : TESTED AT [address], [address]: Contracts Paralegal/Transmission Calibration Engineer ID = [id number] for Ugbana, ChinyerePatient registered under incorrect medical record; misfiled document moved to correct medical record. This is a corrected result. Previous result was 97 mg/dL on 11/10/2022 at 0922 CDT POCT-GLUCOSE [id number] 00:12:36* Test Item Value Reference Range Interpretation Comme nts POC-GLUCOSE METER (BEAKER) (test code = 1538) 118 mg/dL 70-110 H : TESTED AT [address], [address]: Contracts Paralegal/Transmission Calibration Engineer ID = [id number] for Uy, RosellePatient registered under incorrect medical record; misfiled document moved to correct medical record. This is a corrected result. Previous result was 118 mg/dL on 11/10/2022 at 0631 CDT POCT-GLUCOSE [id number] 00:12:36* Test Item Value Reference Range Interpretation Comme nts POC-GLUCOSE METER (BEAKER) (test code = 1538) 102 mg/dL 70-110 : TESTED AT [address], [address]: Contracts Paralegal/Transmission Calibration Engineer ID = [id number] for Uy, RosellePatient registered under incorrect medical record; misfiled document moved to correct medical record. This is a corrected result. Previous result was 102 mg/dL on 11/10/2022 at 0020 CDT POCT-GLUCOSE [id number] 00:12:36* Test Item Value Reference Range Interpretation Comme nts POC-GLUCOSE METER (BEAKER) (test code = 1538) 142 mg/dL 70-110 H : TESTED AT [address], [address]: Contracts Paralegal/Transmission Calibration Engineer ID = [id number] for Ugbana, ChinyerePatient registered under incorrect medical record; misfiled document moved to correct medical record. This is a corrected result. Previous result was 142 mg/dL on 11/09/2022 at 2246 CDT POCT-GLUCOSE [id number] 00:12:35* Test Item Value Reference Range Interpretation Comme nts POC-GLUCOSE METER (BEAKER) (test code = 1538) 99 mg/dL 70-110 : TESTED AT [address], [address]: Contracts Paralegal/Transmission Calibration Engineer ID = [id number] for UgRamon figueroayerePatient registered under incorrect medical record; misfiled document moved to correct medical record. This is a corrected result. Previous result was 99 mg/dL on 11/09/2022 at 1144 CDT POCT-GLUCOSE [id number] 00:12:35* Test Item Value Reference Range Interpretation Comme nts POC-GLUCOSE METER (BEAKER) (test code = 1538) 95 mg/dL 70-110 : TESTED AT [address], [address]: Contracts Paralegal/Transmission Calibration Engineer ID = [id number] for Magdalene, ElyssaPatient registered under incorrect medical record; misfiled document moved to correct medical record. This is a corrected result. Previous result was 95 mg/dL on 11/09/2022 at 0554 CDT POCT-GLUCOSE [id number] 00:12:35* Test Item Value Reference Range Interpretation Comme nts POC-GLUCOSE METER (BEAKER) (test code = 1538) 107 mg/dL 70-110 : TESTED AT [address], [address]: Contracts Paralegal/Transmission Calibration Engineer ID = [id number] for Esdras, VenessaPatient registered under incorrect medical record; misfiled document moved to correct medical record. This is a corrected result. Previous result was 107 mg/dL on 11/08/2022 at 2350 CDT POCT-GLUCOSE [id number] 00:12:35* Test Item Value Reference Range Interpretation Comme nts POC-GLUCOSE METER (BEAKER) (test code = 1538) 123 mg/dL 70-110 H : TESTED AT [address], [address]: Contracts Paralegal/Transmission Calibration Engineer ID = [id number] for Magdalene, ElyssaPatient registered under incorrect medical record; misfiled document moved to correct medical record. This is a corrected result. Previous result was 123 mg/dL on 11/08/2022 at 2139 CDT POCT-GLUCOSE [id number] 00:12:35* Test Item Value Reference Range Interpretation Comme nts POC-GLUCOSE METER (BEAKER) (test code = 1538) 111 mg/dL 70-110 H : TESTED AT [place] [id number] [facility], [address]: Contracts Paralegal/Transmission Calibration Engineer ID = [id number] for Luis Manuel CarrPatient registered under incorrect medical record; misfiled document moved to correct medical record. This is a corrected result. Previous result was 111 mg/dL on 11/08/2022 at 1838 CDT POCT-GLUCOSE [id number] 00:12:35* Test Item Value Reference Range Interpretation Comme nts POC-GLUCOSE METER (BEAKER) (test code = 1538) 114 mg/dL 70-110 H : TESTED AT [address], [address]: Contracts Paralegal/Transmission Calibration Engineer ID = [id number] for Luis Manuel CarrPatient registered under incorrect medical record; misfiled document moved to correct medical record. This is a corrected result. Previous result was 114 mg/dL on 11/08/2022 at 1233 CDT POCT-GLUCOSE [id number] 00:12:35* Test Item Value Reference Range Interpretation Comme nts POC-GLUCOSE METER (BEAKER) (test code = 1538) 95 mg/dL 70-110 : TESTED AT [address], [address]: Contracts Paralegal/Transmission Calibration Engineer ID = [id number] for Luis Manuel CarrPatient registered under incorrect medical record; misfiled document moved to correct medical record. This is a corrected result. Previous result was 95 mg/dL on 11/08/2022 at 0858 CDT POCT-GLUCOSE [id number] 00:12:35* Test Item Value Reference Range Interpretation Comme nts POC-GLUCOSE METER (BEAKER) (test code = 1538) 108 mg/dL 70-110 : TESTED AT [address], [address]: Contracts Paralegal/Transmission Calibration Engineer ID = [id number] for Orestes AbbottPatient registered under incorrect medical record; misfiled document moved to correct medical record. This is a corrected result. Previous result was 108 mg/dL on 11/08/2022 at 0602 CDT CBC W/PLT COUNT & AUTO [id number] 23:54:34* Test Item Value Reference Range Interpretation Comme nts WHITE BLOOD CELL COUNT (BEAKER) (test code = 775) 18.1 K/ L 3.5-10.5 H Patient register ed under incorrect medical record; misfiled document moved to correct medical record. This is a corrected result. Previous result was 18.1 K/ L on 11/08/2022 at 0430 CDT RED BLOOD CELL COUNT (BEAKER) (test code = 761) 5.20 M/ L 4.63-6.08 Patient register ed under incorrect medical record; misfiled document moved to correct medical record. This is a corrected result. Previous result was 5.20 M/ L on 11/08/2022 at 0430 CDT HEMOGLOBIN (BEAKER) (test code = 410) 14.6 GM/DL 13.7-17.5 Patient regist ered under incorrect medical record; misfiled document moved to correct medical record. This is a corrected result. Previous result was 14.6 GM/DL on 11/08/2022 at 0430 CDT HEMATOCRIT (BEAKER) (test code = 411) 46.2 % 40.1-51.0 Patient regist ered under incorrect medical record; misfiled document moved to correct medical record. This is a corrected result. Previous result was 46.2 % on 11/08/2022 at 0430 CDT MEAN CORPUSCULAR VOLUME (BEAKER) (test code = 753) 89 fL 79-92 Patient register ed under incorrect medical record; misfiled document moved to correct medical record. This is a corrected result. Previous result was 89 fL on 11/08/2022 at 0430 CDT MEAN CORPUSCULAR HEMOGLOBIN (BEAKER) (test code = 751) 28.1 pg 25.7-32.2 Patient regist ered under incorrect medical record; misfiled document moved to correct medical record. This is a corrected result. Previous result was 28.1 pg on 11/08/2022 at 0430 CDT MEAN CORPUSCULAR HEMOGLOBIN CONC (BEAKER) (test code = 752) 31.6 GM/DL 32.3-36.5 L Patient register ed under incorrect medical record; misfiled document moved to correct medical record. This is a corrected result. Previous result was 31.6 GM/DL on 11/08/2022 at 0430 CDT RED CELL DISTRIBUTION WIDTH (BEAKER) (test code = 412) 16.8 % 11.6-14.4 H Patient register ed under incorrect medical record; misfiled document moved to correct medical record. This is a corrected result. Previous result was 16.8 % on 11/08/2022 at 0430 CDT PLATELET COUNT (BEAKER) (test code = 756) 211 K/CU MM 150-450 Patient register ed under incorrect medical record; misfiled document moved to correct medical record. This is a corrected result. Previous result was 211 K/CU MM on 11/08/2022 at 0430 CDT MEAN PLATELET VOLUME (BEAKER) (test code = 754) 10.3 fL 9.4-12.4 Patient register ed under incorrect medical record; misfiled document moved to correct medical record. This is a corrected result. Previous result was 10.3 fL on 11/08/2022 at 0430 CDT NUCLEATED RED BLOOD CELLS (BEAKER) (test code = 413) 0 /100 WBC 0-0 Patient register ed under incorrect medical record; misfiled document moved to correct medical record. This is a corrected result. Previous result was 0 /100 WBC on 11/08/2022 at 0430 CDT (CELLAVISION MANUAL DIFF)2022-12-22 23:54:09* Test Item Value Reference Range Interpretation Comme nts NEUTROPHILS - REL (CELLAVISION)(BEAKER) (test code = 2816) 82 % Patient registered under incorrect medical record; misfiled document moved to correct medical record. This is a corrected result. Previous result was 82 % on 11/08/2022 at 0430 CDT LYMPHOCYTES - REL (CELLAVISION)(BEAKER) (test code = 2817) 11 % Patient registered under incorrect medical record; misfiled document moved to correct medical record. This is a corrected result. Previous result was 11 % on 11/08/2022 at 0430 CDT MONOCYTES - REL (CELLAVISION)(BEAKER) (test code = 2818) 7 % Patient registered under incorrect medical record; misfiled document moved to correct medical record. This is a corrected result. Previous result was 7 % on 11/08/2022 at 0430 CDT NEUTROPHILS - ABS (CELLAVISION)(BEAKER) (test code = 2830) 14.84 K/ul 1.78-5.38 H Patient registered under incorrect medical record; misfiled document moved to correct medical record. This is a corrected result. Previous result was 14.84 K/ul on 11/08/2022 at 0430 CDT LYMPHOCYTES - ABS (CELLAVISION)(BEAKER) (test code = 2831) 1.99 K/ul 1.32-3.57 Patient registered under incorrect medical record; misfiled document moved to correct medical record. This is a corrected result. Previous result was 1.99 K/ul on 11/08/2022 at 0430 CDT MONOCYTES - ABS (CELLAVISION)(BEAKER) (test code = 2832) 1.27 K/uL 0.30-0.82 H Patient registered under incorrect medical record; misfiled document moved to correct medical record. This is a corrected result. Previous result was 1.27 K/uL on 11/08/2022 at 0430 CDT TOTAL COUNTED (BEAKER) (test code = 1351) 100 WBC MORPHOLOGY (BEAKER) (test code = 487) Normal PLT MORPHOLOGY (BEAKER) (test code = 486) Normal POLYCHROMATOPHILLIC RBCS(BEAKER) (test code = 478) 1+ few ANISOCYTOSIS (BEAKER) (test code = 961) 1+ few ARTIFACT (CELLAVISION)(BEAKER) (test code = 3432) Present PLATELET CONCENTRATION (CELLAVISION)(BEAKER) (test code = 3438) Adequate EOSINOPHILS - REL (CELLAVISION)(BEAKER) (test code = 2819) Patient registered under incorrect medical record; misfiled document moved to correct medical record. BASOPHILS - REL (CELLAVISION)(BEAKER) (test code = 2820) Patient registered under incorrect medical record; misfiled document moved to correct medical record. Contracts Paralegal ID - [employer] Nanci comments: Slide comments:[id number] 23:38:36* Test Item Value Reference Range Interpretation Comme nts MAGNESIUM (BEAKER) (test code = 627) 1.9 mg/dL 1.6-2.6 Patient regist ered under incorrect medical record; misfiled document moved to correct medical record. This is a corrected result. Previous result was 1.9 mg/dL on 11/08/2022 at 0423 CDT Contracts Paralegal ID - [id number] 23:38:19* Test Item Value Reference Range Interpretation Comme nts PHOSPHORUS (BEAKER) (test code = 604) 7.7 mg/dL 2.3-4.7 H Patient regist ered under incorrect medical record; misfiled document moved to correct medical record. This is a corrected result. Previous result was 7.7 mg/dL on 11/08/2022 at 0423 CDT Contracts Paralegal ID - EDBASIC METABOLIC [id number] 23:36:30* Test Item Value Reference Range Interpretation Comme nts SODIUM (BEAKER) (test code = 381) 131 meq/L 136-145 L Patient regist ered under incorrect medical record; misfiled document moved to correct medical record. This is a corrected result. Previous result was 131 meq/L on 11/08/2022 at 0429 CDT POTASSIUM (BEAKER) (test code = 379) 5.1 meq/L 3.5-5.1 Patient register ed under incorrect medical record; misfiled document moved to correct medical record. This is a corrected result. Previous result was 5.1 meq/L on 11/08/2022 at 0429 CDT CHLORIDE (BEAKER) (test code = 382) 95 meq/L 98-107 L Patient regist ered under incorrect medical record; misfiled document moved to correct medical record. This is a corrected result. Previous result was 95 meq/L on 11/08/2022 at 0429 CDT CO2 (BEAKER) (test code = 355) 19 meq/L 22-29 L Patient regist ered under incorrect medical record; misfiled document moved to correct medical record. This is a corrected result. Previous result was 19 meq/L on 11/08/2022 at 0429 CDT BLOOD UREA NITROGEN (BEAKER) (test code = 354) 41 mg/dL 7-21 H Patient regist ered under incorrect medical record; misfiled document moved to correct medical record. This is a corrected result. Previous result was 41 mg/dL on 11/08/2022 at 0429 CDT CREATININE (BEAKER) (test code = 358) 10.55 mg/dL 0.57-1.25 H Patient register ed under incorrect medical record; misfiled document moved to correct medical record. This is a corrected result. Previous result was 10.55 mg/dL on 11/08/2022 at 0429 CDT GLUCOSE RANDOM (HERB) (test code = 652) 103 mg/dL 70-105 Patient register ed under incorrect medical record; misfiled document moved to correct medical record. This is a corrected result. Previous result was 103 mg/dL on 11/08/2022 at 0429 CDT CALCIUM (HERB) (test code = 697) 11.1 mg/dL 8.4-10.2 H Patient regist ered under incorrect medical record; misfiled document moved to correct medical record. This is a corrected result. Previous result was 11.1 mg/dL on 11/08/2022 at 0429 CDT EGFR (HERB) (test code = 1092) 5 mL/min/1.73 sq m Interpretation of eG FR values Stage Description Result G1 Normal or high >=90 G2 Mildly decreased 60-89 G3a Mildly to moderately 45-59 G3b Moderately to severely 30-44 G4 Severly decreased 15-29 G5 Kidney failure <15Reported eGFR is based on the CKD-EPI 2020 equation that does not use a race coefficientEstimated GFR is not as accurate as Creatinine Clearance in predicting glomerular filtration rate. Estimated GFR is not applicable for dialysis patientsThis is a corrected result. Previous result was 5 mL/min/1.73 sq m on 11/08/2022 at 0429 CDT Contracts Paralegal ID - EDVITAMIN D, [id number] 23:34:01* Test Item Value Reference Range Interpretation Comme nts VITAMIN D 25-OH (HERB) (test code = 2764) 78.1 ng/mL 6.6-49.9 H Patient register ed under incorrect medical record; misfiled document moved to correct medical record. This is a corrected result. Previous result was 78.1 ng/mL on 11/08/2022 at 0841 CDT Effective 04/20/2017: Reference Range ChangeNew: 6.6-49.9 ng/mL Previous: 13.0- 47.8 ng/mLRecommended Vitamin D Target Range: 30.0-40.0 ng/mLOperator ID - [id number], [id number] 23:33:11* Test Item Value Reference Range Interpretation Comme nts FREE T4 (HERB) (test code = 655) 0.74 ng/dL 0.70-1.48 Patient regist ered under incorrect medical record; misfiled document moved to correct medical record. This is a corrected result. Previous result was 0.74 ng/dL on 11/08/2022 at 0531 CDT Contracts Paralegal ID - EDTSH/FREE T4 IF [id number] 23:32:20* Test Item Value Reference Range Interpretation Comme nts THYROID STIMULATING HORMONE (HERB) (test code = 772) 0.212 uIU/mL 0.350-4.940 L Patient regist ered under incorrect medical record; misfiled document moved to correct medical record. This is a corrected result. Previous result was 0.212 uIU/mL on 11/08/2022 at 0455 CDT Contracts Paralegal ID - EDHEPATITIS B SURFACE [id number] 23:30:57* Test Item Value Reference Range Interpretation Comme nts HEPATITIS B SURFACE ANTIGEN (2) (HERB) (test code = 2585) Nonreactive Nonreactive Patient keyshawn tered under incorrect medical record; misfiled document moved to correct medical record. This is a corrected result. Previous result was Nonreactive on 11/08/2022 at 0452 CDT Specimen is considered negative for HBsAg.VANCOMYCIN LEVEL, [id number] 23:29:48* Test Item Value Reference Range Interpretation Comme nts VANCOMYCIN RANDOM (HERB) (test code = 523) 18.2 ug/mL Patient register ed under incorrect medical record; misfiled document moved to correct medical record. This is a corrected result. Previous result was 18.2 ug/mL on 11/08/2022 at 0438 CDT Reference Range: No NormalsOperator ID - EDPOCT-GLUCOSE [id number] 23:24:39 * Test Item Value Reference Range Interpretation Comme nts POC-GLUCOSE METER (HERB) (test code = 1538) 111 mg/dL 70-110 H : TESTED AT [facility] [address], [address]: Contracts Paralegal/Transmission Calibration Engineer ID = [id number] for Jose BROWN registered under incorrect medical record; misfiled document moved to correct medical record. This is a corrected result. Previous result was 111 mg/dL on 11/07/2022 at 2252 CDT HIGH SENSITIVITY TROPONIN [id number] 23:22:57* Test Item Value Reference Range Interpretation Comme nts HIGH SENSITIVITY TROPONIN I (test code = 4744002) 369 pg/ml <=35 H Patient register ed under incorrect medical record; misfiled document moved to correct medical record. This is a corrected result. Previous result was 369 pg/ml on 11/07/2022 at 1741 CDT Contracts Paralegal ID - Chelsy PERFORMANCE IMPROVEMENT COORDINATOR STAT High Sensitivity Troponin-I results should be used in conjunction with other diagnostic information such as ECG, clinical observations and information, and patient symptoms to aid in the diagnosis of [place].POCT-GLUCOSE [id number] 22:42:40* Test Item Value Reference Range Interpretation Comme nts POC-GLUCOSE METER (BEAKER) (test code = 1538) 113 mg/dL 70-110 H : TESTED AT [facility] [address], [address]: Contracts Paralegal/Transmission Calibration Engineer ID = [id number] for Chantel Carr registered under incorrect medical record; misfiled document moved to correct medical record.This is a corrected result. Previous result was 113 mg/dL on 11/07/2022 at 1717 CDT B-TYPE NATRIURETIC FACTOR (BNP)2022-12-22 22:41:41* Test Item Value Reference Range Interpretation Comme nts B-TYPE NATRIURETIC PEPTIDE (BEAKER) (test code = 700) 79 pg/mL 0-100 Patient register ed under incorrect medical record; misfiled document moved to correct medical record.This is a corrected result. Previous result was 79 pg/mL on 11/07/2022 at 1421 CDT Contracts Paralegal ID - EDPOCT-GLUCOSE [id number] 22:40:07* Test Item Value Reference Range Interpretation Comme nts POC-GLUCOSE METER (BEAKER) (test code = 1538) 240 mg/dL 70-110 H : TESTED AT [facility] [address], [address]: Contracts Paralegal/Transmission Calibration Engineer ID = [id number] for Chantel Carr registered under incorrect medical record; misfiled document moved to correct medical record.This is a corrected result. Previous result was 240 mg/dL on 11/07/2022 at 1357 CDT BLOOD GAS, [id number] 22:36:46* Test Item Value Reference Range Interpretation Comme nts PH VENOUS (BEAKER) (test code = 701) 7.30 7.32-7.42 L Patient regist ered under incorrect medical record; misfiled document moved to correct medical record.This is a corrected result. Previous result was 7.30 on 11/07/2022 at 0859 CDT PCO2 VENOUS (BEAKER) (test code = 755) 51 mm Hg 41-51 Patient regist ered under incorrect medical record; misfiled document moved to correct medical record.This is a corrected result. Previous result was 51 mm Hg on 11/07/2022 at 0859 CDT PO2 VENOUS (BEAKER) (test code = 702) 39 mm Hg 25-40 Patient regist ered under incorrect medical record; misfiled document moved to correct medical record.This is a corrected result. Previous result was 39 mm Hg on 11/07/2022 at 0859 CDT O2 SATURATION VENOUS (BEAKER) (test code = 703) 67.6 % 40.0-70.0 Patient register ed under incorrect medical record; misfiled document moved to correct medical record.This is a corrected result. Previous result was 67.6 % on 11/07/2022 at 0859 CDT HCO3 VENOUS (BEAKER) (test code = 705) 25 mmol/L 21-29 Patient regist ered under incorrect medical record; misfiled document moved to correct medical record.This is a corrected result. Previous result was 25 mmol/L on 11/07/2022 at 0859 CDT BASE EXCESS VENOUS (BEAKER) (test code = 704) -2.3 mmol/L -2.0-3.0 L Patient register ed under incorrect medical record; misfiled document moved to correct medical record.This is a corrected result. Previous result was -2.3 mmol/L on 11/07/2022 at 0859 CDT PATIENT TEMPERATURE (BEAKER) (test code = 1818) 37.0 Patient register ed under incorrect medical record; misfiled document moved to correct medical record.This is a corrected result. Previous result was 37.0 on 11/07/2022 at 0859 CDT FIO2 (BEAKER) (test code = 1819) 21.0 Patient register ed under incorrect medical record; misfiled document moved to correct medical record.This is a corrected result. Previous result was 21.0 on 11/07/2022 at 0859 CDT LACTIC ACID, [id number] 22:35:39* Test Item Value Reference Range Interpretation Comme [facility] LACTATE BLOOD VENOUS (2) (HERB) (test code = 2872) 1.79 mmol/L 0.50-2.00 Specimen slightl y hemolyzedPatient registered under incorrect medical record; misfiled document moved to correct medical record.This is a corrected result. Previous result was 1.79 mmol/L on 11/07/2022 at 0953 CDT Contracts Paralegal ID - EDHIGH SENSITIVITY TROPONIN [id number] 22:34:47* Test Item Value Reference Range Interpretation Comme [facility] HIGH SENSITIVITY TROPONIN I (test code = 3614180) 534 pg/ml <=35 HH Patient register ed under incorrect medical record; misfiled document moved to correct medical record.This is a corrected result. Previous result was 534 pg/ml on 11/07/2022 at 1015 CDT Contracts Paralegal ID - Chelsy PERFORMANCE IMPROVEMENT COORDINATOR STAT High Sensitivity Troponin-I results should be used in conjunction with other diagnostic information such as ECG, clinical observations and information, and patient symptoms to aid in the diagnosis of [place].HEMOGLOBIN [id number] 22:33:56* Test Item Value Reference Range Interpretation Comme [facility] HEMOGLOBIN A1C ELECTROPHORESIS ([employer]) (test code = 3811) 5.2 % See_Comment Patient keyshawn tered under incorrect medical record; misfiled document moved to correct medical record.This is a corrected result. Previous result was 5.2 % on 11/07/2022 at 1043 CDT "The A1c is measured using a NGSP-certified method. HbA1c value equal to or greater than 6.5% as the diagnosis cutoff for diabetes. An HbA1c value of 5.7- 6.4% indicates increased risk for diabetes (prediabetes)."Contracts Paralegal ID - ADMPOCT- GLUCOSE [id number] 22:31:52* Test Item Value Reference Range Interpretation [facility] POC-GLUCOSE METER ([employer]) (test code = 1538) 297 mg/dL 70-110 H : TESTED AT [facility] [address], [address]: Contracts Paralegal/Transmission Calibration Engineer ID = [id number] for Luis Manuel CarrPatient registered under incorrect medical record; misfiled document moved to correct medical record.This is a corrected result. Previous result was 297 mg/dL on 11/07/2022 at 0852 CDT [id number] 22:29:39* Test Item Value Reference Range Interpretation Comme [facility] PROCALCITONIN (BEAKER) (test code = 3036) 1.06 ng/mL <0.05 H Patient keyshawn tered under incorrect medical record; misfiled document moved to correct medical record.This is a corrected result. Previous result was 1.06 ng/mL on 11/07/2022 at 0621 CDT SEPSIS RISK (ng/mL)Low: 0.05-0.50Intermediate: 0.51-2.00High: >=2.01POCT-GLUCOSE [id number] 22:25:23* Test Item Value Reference Range Interpretation Comme [facility] POC-GLUCOSE METER (HERB) (test code = 1538) 158 mg/dL 70-110 H : TESTED AT [facility] [address], [address]: Contracts Paralegal/Transmission Calibration Engineer ID = [id number] for Baylee Yeedeborahent registered under incorrect medical record; misfiled document moved to correct medical record.This is a corrected result. Previous result was 158 mg/dL on 11/07/2022 at 0513 CDT HIGH SENSITIVITY TROPONIN [id number] 22:23:25* Test Item Value Reference Range Interpretation Comme [facility] HIGH SENSITIVITY TROPONIN I (test code = 2307495) 434 pg/ml <=35 H Patient register ed under incorrect medical record; misfiled document moved to correct medical record.This is a corrected result. Previous result was 434 pg/ml on 11/07/2022 at 0502 CDT Contracts Paralegal ID - EDThe PERFORMANCE IMPROVEMENT COORDINATOR STAT High Sensitivity Troponin-I results should be used in conjunction with other diagnostic information such as ECG, clinical observations and information, and patient symptoms to aid in the diagnosis of [place].[id number] 22:20:46* Test Item Value Reference Range Interpretation Comme [facility] LIPASE (BEAKER) (test code = 749) 18 U/L 8-78 Patient register ed under incorrect medical record; misfiled document moved to correct medical record.This is a corrected result. Previous result was 18 U/L on 11/07/2022 at 0445 CDT Contracts Paralegal ID - EDBLOOD GAS, [id number] 22:20:04* Test Item Value Reference Range Interpretation Comme nts PH VENOUS (BEAKER) (test code = 701) 7.27 7.32-7.42 L Patient regist ered under incorrect medical record; misfiled document moved to correct medical record.This is a corrected result. Previous result was 7.27 on 11/07/2022 at 0514 CDT PCO2 VENOUS (BEAKER) (test code = 755) 58 mm Hg 41-51 H Patient regist ered under incorrect medical record; misfiled document moved to correct medical record.This is a corrected result. Previous result was 58 mm Hg on 11/07/2022 at 0514 CDT PO2 VENOUS (BEAKER) (test code = 702) 47 mm Hg 25-40 H Patient regist ered under incorrect medical record; misfiled document moved to correct medical record.This is a corrected result. Previous result was 47 mm Hg on 11/07/2022 at 0514 CDT O2 SATURATION VENOUS (BEAKER) (test code = 703) 76.0 % 40.0-70.0 H Patient register ed under incorrect medical record; misfiled document moved to correct medical record.This is a corrected result. Previous result was 76.0 % on 11/07/2022 at 0514 CDT HCO3 VENOUS (BEAKER) (test code = 705) 26 mmol/L 21-29 Patient regist ered under incorrect medical record; misfiled document moved to correct medical record.This is a corrected result. Previous result was 26 mmol/L on 11/07/2022 at 0514 CDT BASE EXCESS VENOUS (BEAKER) (test code = 704) -2.0 mmol/L -2.0-3.0 Patient register ed under incorrect medical record; misfiled document moved to correct medical record.This is a corrected result. Previous result was -2.0 mmol/L on 11/07/2022 at 0514 CDT PATIENT TEMPERATURE (BEAKER) (test code = 1818) 37.0 Patient register ed under incorrect medical record; misfiled document moved to correct medical record.This is a corrected result. Previous result was 37.0 on 11/07/2022 at 0514 CDT FIO2 (BEAKER) (test code = 1819) 30.0 Patient register ed under incorrect medical record; misfiled document moved to correct medical record.This is a corrected result. Previous result was 30.0 on 11/07/2022 at 0514 CDT LACTIC ACID, [id number] 22:17:27* Test Item Value Reference Range Interpretation Comme nts LACTATE BLOOD VENOUS (2) (HERB) (test code = 2872) 2.31 mmol/L 0.50-2.00 H Specimen slightl y hemolyzedPatient registered under incorrect medical record; misfiled document moved to correct medical record.This is a corrected result. Previous result was 2.31 mmol/L on 11/07/2022 at 0438 CDT Contracts Paralegal ID - EDHEPATIC FUNCTION [id number] 22:14:07* Test Item Value Reference Range Interpretation Comme nts TOTAL PROTEIN (HERB) (test code = 770) 7.2 gm/dL 6.0-8.3 Patient regist ered under incorrect medical record; misfiled document moved to correct medical record.This is a corrected result. Previous result was 7.2 gm/dL on 12/22/2022 at 2200 CDT ALBUMIN (STEPHANIAAKER) (test code = 1145) 3.8 g/dL 3.5-5.0 Patient register ed under incorrect medical record; misfiled document moved to correct medical record.This is a corrected result. Previous result was 3.8 g/dL on 12/22/2022 at 2200 CDT BILIRUBIN TOTAL (STEPHANIAAKER) (test code = 377) 0.6 mg/dL 0.2-1.2 Patient register ed under incorrect medical record; misfiled document moved to correct medical record.This is a corrected result. Previous result was 0.6 mg/dL on 12/22/2022 at 2200 CDT BILIRUBIN DIRECT (BEAKER) (test code = 706) 0.3 mg/dL 0.1-0.5 Patient register ed under incorrect medical record; misfiled document moved to correct medical record.This is a corrected result. Previous result was 0.3 mg/dL on 12/22/2022 at 2200 CDT ALKALINE PHOSPHATASE (STEPHANIAAKER) (test code = 346) 142 U/L 40-150 Patient register ed under incorrect medical record; misfiled document moved to correct medical record.This is a corrected result. Previous result was 142 U/L on 12/22/2022 at 2200 CDT AST (SGOT) (BEAKER) (test code = 353) 22 U/L 5-34 Patient regist ered under incorrect medical record; misfiled document moved to correct medical record.This is a corrected result. Previous result was 22 U/L on 12/22/2022 at 2200 CDT ALT (SGPT) (BEAKER) (test code = 347) 27 U/L 6-55 Patient regist ered under incorrect medical record; misfiled document moved to correct medical record.This is a corrected result. Previous result was 27 U/L on 12/22/2022 at 2200 CDT Contracts Paralegal ID - EDCBC W/PLT COUNT & AUTO [id number] 22:14:07* Test Item Value Reference Range Interpretation Comme nts WHITE BLOOD CELL COUNT (BEAKER) (test code = 775) 17.1 K/ L 3.5-10.5 H Patient register ed under incorrect medical record; misfiled document moved to correct medical record.This is a corrected result. Previous result was 17.1 K/ L on 11/07/2022 at 0426 CDT RED BLOOD CELL COUNT (BEAKER) (test code = 761) 5.80 M/ L 4.63-6.08 Patient register ed under incorrect medical record; misfiled document moved to correct medical record.This is a corrected result. Previous result was 5.80 M/ L on 11/07/2022 at 0426 CDT HEMOGLOBIN (BEAKER) (test code = 410) 15.6 GM/DL 13.7-17.5 Patient regist ered under incorrect medical record; misfiled document moved to correct medical record.This is a corrected result. Previous result was 15.6 GM/DL on 11/07/2022 at 0426 CDT HEMATOCRIT (BEAKER) (test code = 411) 51.3 % 40.1-51.0 H Patient regist ered under incorrect medical record; misfiled document moved to correct medical record.This is a corrected result. Previous result was 51.3 % on 11/07/2022 at 0426 CDT MEAN CORPUSCULAR VOLUME (BEAKER) (test code = 753) 88 fL 79-92 Patient register ed under incorrect medical record; misfiled document moved to correct medical record.This is a corrected result. Previous result was 88 fL on 11/07/2022 at 0426 CDT MEAN CORPUSCULAR HEMOGLOBIN (BEAKER) (test code = 751) 26.9 pg 25.7-32.2 Patient regist ered under incorrect medical record; misfiled document moved to correct medical record.This is a corrected result. Previous result was 26.9 pg on 11/07/2022 at 0426 CDT MEAN CORPUSCULAR HEMOGLOBIN CONC (BEAKER) (test code = 752) 30.4 GM/DL 32.3-36.5 L Patient register ed under incorrect medical record; misfiled document moved to correct medical record.This is a corrected result. Previous result was 30.4 GM/DL on 11/07/2022 at 0426 CDT RED CELL DISTRIBUTION WIDTH (BEAKER) (test code = 412) 16.8 % 11.6-14.4 H Patient register ed under incorrect medical record; misfiled document moved to correct medical record.This is a corrected result. Previous result was 16.8 % on 11/07/2022 at 0426 CDT PLATELET COUNT (BEAKER) (test code = 756) 261 K/CU MM 150-450 Patient register ed under incorrect medical record; misfiled document moved to correct medical record.This is a corrected result. Previous result was 261 K/CU MM on 11/07/2022 at 0426 CDT MEAN PLATELET VOLUME (BEAKER) (test code = 754) 10.7 fL 9.4-12.4 Patient register ed under incorrect medical record; misfiled document moved to correct medical record.This is a corrected result. Previous result was 10.7 fL on 11/07/2022 at 0426 CDT NUCLEATED RED BLOOD CELLS (BEAKER) (test code = 413) 0 /100 WBC 0-0 Patient register ed under incorrect medical record; misfiled document moved to correct medical record.This is a corrected result. Previous result was 0 /100 WBC on 11/07/2022 at 0426 CDT NEUTROPHILS RELATIVE PERCENT (BEAKER) (test code = 429) 94 % Patient register ed under incorrect medical record; misfiled document moved to correct medical record.This is a corrected result. Previous result was 94 % on 11/07/2022 at 0426 CDT LYMPHOCYTES RELATIVE PERCENT (BEAKER) (test code = 430) 2 % Patient register ed under incorrect medical record; misfiled document moved to correct medical record.This is a corrected result. Previous result was 2 % on 11/07/2022 at 0426 CDT MONOCYTES RELATIVE PERCENT (BEAKER) (test code = 431) 3 % Patient register ed under incorrect medical record; misfiled document moved to correct medical record.This is a corrected result. Previous result was 3 % on 11/07/2022 at 0426 CDT EOSINOPHILS RELATIVE PERCENT (BEAKER) (test code = 432) 0 % Patient register ed under incorrect medical record; misfiled document moved to correct medical record.This is a corrected result. Previous result was 0 % on 11/07/2022 at 0426 CDT BASOPHILS RELATIVE PERCENT (BEAKER) (test code = 437) 0 % Patient register ed under incorrect medical record; misfiled document moved to correct medical record.This is a corrected result. Previous result was 0 % on 11/07/2022 at 0426 CDT NEUTROPHILS ABSOLUTE COUNT (BEAKER) (test code = 670) 16.12 K/ L 1.78-5.38 H Patient register ed under incorrect medical record; misfiled document moved to correct medical record.This is a corrected result. Previous result was 16.12 K/ L on 11/07/2022 at 0426 CDT LYMPHOCYTES ABSOLUTE COUNT (BEAKER) (test code = 414) 0.31 K/ L 1.32-3.57 L Patient register ed under incorrect medical record; misfiled document moved to correct medical record.This is a corrected result. Previous result was 0.31 K/ L on 11/07/2022 at 0426 CDT MONOCYTES ABSOLUTE COUNT (BEAKER) (test code = 415) 0.56 K/ L 0.30-0.82 Patient register ed under incorrect medical record; misfiled document moved to correct medical record.This is a corrected result. Previous result was 0.56 K/ L on 11/07/2022 at 0426 CDT EOSINOPHILS ABSOLUTE COUNT (BEAKER) (test code = 416) 0.00 K/ L 0.04-0.54 L Patient register ed under incorrect medical record; misfiled document moved to correct medical record.This is a corrected result. Previous result was 0.00 K/ L on 11/07/2022 at 0426 CDT BASOPHILS ABSOLUTE COUNT (BEAKER) (test code = 417) 0.04 K/ L 0.01-0.08 Patient register ed under incorrect medical record; misfiled document moved to correct medical record.This is a corrected result. Previous result was 0.04 K/ L on 11/07/2022 at 0426 CDT IMMATURE GRANULOCYTES-RELATIVE PERCENT (BEAKER) (test code = 2801) 0.60 % 0.00-1.00 Patient register ed under incorrect medical record; misfiled document moved to correct medical record.This is a corrected result. Previous result was 0.60 % on 11/07/2022 at 0426 CDT BASIC METABOLIC [id number] 22:02:22* Test Item Value Reference Range Interpretation Comme nts SODIUM (BEAKER) (test code = 381) 130 meq/L 136-145 L Patient regist ered under incorrect medical record; misfiled document moved to correct medical record.This is a corrected result. Previous result was 130 meq/L on 11/07/2022 at 0508 CDT POTASSIUM (BEAKER) (test code = 379) 5.0 meq/L 3.5-5.1 Patient register ed under incorrect medical record; misfiled document moved to correct medical record.This is a corrected result. Previous result was 5.0 meq/L on 11/07/2022 at 0508 CDT CHLORIDE (BEAKER) (test code = 382) 93 meq/L 98-107 L Patient regist ered under incorrect medical record; misfiled document moved to correct medical record.This is a corrected result. Previous result was 93 meq/L on 11/07/2022 at 0508 CDT CO2 (BEAKER) (test code = 355) 22 meq/L 22-29 Patient regist ered under incorrect medical record; misfiled document moved to correct medical record.This is a corrected result. Previous result was 22 meq/L on 11/07/2022 at 0508 CDT BLOOD UREA NITROGEN (BEAKER) (test code = 354) 27 mg/dL 7-21 H Patient regist ered under incorrect medical record; misfiled document moved to correct medical record.This is a corrected result. Previous result was 27 mg/dL on 11/07/2022 at 0508 CDT CREATININE (BEAKER) (test code = 358) 8.32 mg/dL 0.57-1.25 H Patient register ed under incorrect medical record; misfiled document moved to correct medical record.This is a corrected result. Previous result was 8.32 mg/dL on 11/07/2022 at 0508 CDT GLUCOSE RANDOM (HERB) (test code = 652) 172 mg/dL 70-105 H Patient register ed under incorrect medical record; misfiled document moved to correct medical record.This is a corrected result. Previous result was 172 mg/dL on 11/07/2022 at 0508 CDT CALCIUM (HERB) (test code = 697) 11.0 mg/dL 8.4-10.2 H Patient regist ered under incorrect medical record; misfiled document moved to correct medical record.This is a corrected result. Previous result was 11.0 mg/dL on 11/07/2022 at 0508 CDT EGFR (HERB) (test code = 1092) 7 mL/min/1.73 sq m Interpretation of eG FR values Stage Description Result G1 Normal or high >=90 G2 Mildly decreased 60-89 G3a Mildly to moderately 45-59 G3b Moderately to severely 30-44 G4 Severly decreased 15-29 G5 Kidney failure <15Reported eGFR is based on the CKD-EPI 2020 equation that does not use a race coefficientEstimated GFR is not as accurate as Creatinine Clearance in predicting glomerular filtration rate. Estimated GFR is not applicable for dialysis patientsThis is a corrected result. Previous result was 7 mL/min/1.73 sq m on 11/07/2022 at 0508 CDT Contracts Paralegal ID - EDPROTHROMBIN TIME/[id number] 21:58:07* Test Item Value Reference Range Interpretation Comme nts PROTIME (HERB) (test code = 759) 16.0 seconds 11.9-14.2 H Patient regist ered under incorrect medical record; misfiled document moved to correct medical record. This is a corrected result. Previous result was 16.0 seconds on 12/22/2022 at 2153 CDT INR (HERB) (test code = 370) 1.37 <=5.90 Patient register ed under incorrect medical record; misfiled document moved to correct medical record.This is a corrected result. Previous result was 1.37 on 12/22/2022 at 2153 CDT RECOMMENDED COUMADIN/WARFARIN INR THERAPY RANGESSTANDARD DOSE: 2.0 - 3.0 Includes: PROPHYLAXIS for venous thrombosis, systemic embolization; TREATMENT for venous thrombosis and/or pulmonary embolus.HIGH RISK: Target INR is 2.5-3.5 for patients with mechanical heart valves.[id number] 21:58:07* Test Item Value Reference Range Interpretation Comme nts PARTIAL THROMBOPLASTIN TIME (HERB) (test code = 760) 33.5 seconds 22.5-36.0 Patient register ed under incorrect medical record; misfiled document moved to correct medical record. This is a corrected result. Previous result was 33.5 seconds on 12/22/2022 at 2153 CDT T4, [id number] 06:08:41* Test Item Value Reference Range Interpretation Comme nts FREE T4 (HERB) (test code = 655) 0.77 ng/dL 0.70-1.48 Contracts Paralegal ID - ADMINTSH/FREE T4 IF [id number] 04:01:20* Test Item Value Reference Range Interpretation Comme nts THYROID STIMULATING HORMONE (HERB) (test code = 772) 0.147 uIU/mL 0.350-4.940 L Contracts Paralegal ID - ADMINRAD, CHEST, 1 VIEW, NON [id number] 03:48:00Reason for exam:->shockShould this be performed at the bedside?->Yes [facility] 1955 Sex: MFINAL REPORT RAD, CHEST, 1 VIEW, NON DEPT INDICATION: shock COMPARISON: 06/19/2012 FINDINGS: Portable frontal view of the chest. IMPRESSION: Support Lines: The left transjugular central venous catheter overlies the left internal jugular vein to the confluence. Lungs and pleura: Lungs are clear. No pneumothorax. Heart and mediastinum: Cardiomediastinal silhouette is magnified by technique with otherwise stable contours. Additional findings: None. Signed: Ira Charles MDReportVerified Date/Time: 11/07/2022 03:48:44 [id number] 17:49:00* Test Item Value Reference Range Interpretation Comme nts SURGICAL (test code = SR) RUN DATE: 11/20/21 [facility] PAGE 1 RUN TIME: 1750 Specimen Inquiry RUN USER: INTERFACE DEBRA ENT: IRA RAYA LOC: [place] U #: [id number] AGE/SX: 66/M ROOM: [facility] RE11/16/21[facility] DR: Mandy Devlin MD : 53 BED: 1 DIS: 11/18/21 STATUS: DIS IN TLOC: SPEC #: [id number]:PMC:[id number] RECD: 11/17/21-1019 STATUS: ANSELMO MILLAN #: [id number] ANAHI: 11/17/21 [facility] DR: Mandy Devlin MD ENTERED: 11/17/21 SP TYPE: SURGICAL OTHR DR: Self Referred Genaro Gupta MD, Nileshkumar MD Mendoza Requena, Daniel MD Veselka, James E MDORDERED: 15033, 31849, ANATOMIC SPEC, SPECIMEN TRACK COPIES TO: Self Referred Genaro Gupta MD [address] [place] [address] Amita Gr MD 0218 [facility] [address] [address] [place] [address] [place] [address] [email or web address] [address] [place], [place] [address] Ira Ramirez MD [address] [place] [address] [place] [id number] PROCEDURES: 60063 (11/20/21) 47918 (11/20/21) SPECIMEN TRACK (11/17/21) TISSUES: A. AMPUTATION--FINGER OR TOE, TRAUMATIC - AMPUTATED LEFT INDEX FINGER CONTINUED ON NEXT PAGE RUN DATE: 11/20/21 [facility] PAGE 2 RUN TIME: 1750 Specimen Inquiry RUN USER: INTERFACE SPEC #: [id number]:[facility]:[id number] PATIENT: IRA RAYA #[id number] (Continued) ------- FINAL DIAGNOSIS Finger, left index, amputation:- Gangrene and acute inflammation extending to bone (osteomyelitis)- Viable skin and subcutaneous tissue margins Comment: SUggest clinical/image correlation and follow up. GROSS DESCRIPTION amputated left index finger. It consists of a grossly nonviable tip of a finger measuring3 x 2.3 x . 8 cm. Cut sections reveal grossly unremarkable bone. Also present in thesame container are additional pieces of skin measuring aggregate of 3.2 x 2 x 0.7 cm. Oneof these segments appear to have a grossly viable margin. Sections of nonviable softtissue with bone and inked viable skin margin submitted for decalcification as A1. Technical component performed at [facility],[id number] , [place] [address] Unless gross only, the diagnosis is based upon microscopic examination.Immunohistochemistry : This test was developed and its performancecharacteristics determined by this laboratory. It has not been approved nordoes it need approval by the [place] FDA. Appropriate positive and negative controlsare reviewed and judged to be acceptable. This laboratory is certified undert Clinical Laboratory Improvement Amendments (CLIA-88) as qualified toperform high complexity clinical laboratory testing. MICROSCOPIC DESCRIPTION Histopathological findings are incorporated into the diagnosis/comment sections. Signed SIGNATURE ON FILE Chava Sampson 11/20/21 1749 END OF REPORT AB HEPATITIS B [id number] 07:23:00* Test Item Value Reference Range Interpretation Comme nts AB HEPATITIS B SURFACE (test code = HBSAB) <3.1 mIU/mL See_Comment A Status of Immuni ty Anti-HBs Level Inconsi stent with Immunity 0.0 - 9.9Consistent with Immunity >9.9 [Automated message] The system which generated this result transmitted reference range: Immunity>9.9. The reference range was not used to interpret this result as normal/abnormal. AG HEPATITIS B [id number] 07:23:00* Test Item Value Reference Range Interpretation Comme nts AG HEPATITIS B SURFACE (test code = HBSAG) NON REACTIVE INDEX NonReactive AB HEPATITIS B [id number] 07:23:00* Test Item Value Reference Range Interpretation Comme nts AB HEPATITIS B CORE (test code = HBCAB) Negative Negative Performed At : [facility] [id number] Sulaiman Navas MD Ph:[phone] C REACTIVE [id number] 04:44:00* Test Item Value Reference Range Interpretation Comme nts C REACTIVE PROTEIN (test cod e = CRP) 6.420 MG/DL 0.000-0.3 H CBC W/AUTO [id number] 04:30:00* Test Item Value Reference Range Interpretation Comme nts WHITE BLOOD CELL (test code = WBC) 4.6 K/mm3 3.5-11.0 N RED BLOOD CELL (test code = RBC) 4.33 M/mm3 4.70-6.10 L HEMOGLOBIN (test code = HGB) 10.5 G/DL 12.3-15.9 L HEMATOCRIT (test code = HCT) 34.2 % 35.8-46.7 L MEAN CELL VOLUME (test code = MCV) 79.0 Fl 86.3-98.9 L MEAN CELL HGB (test code = MCH) 24.2 pg 28.9-34.4 L MEAN CELL HGB CONCETRATION (test code = MCHC) 30.7 G/DL 32.1-34.5 L RED CELL DISTRIBUTION WIDTH (test code = RDW) 19.8 SD 11.5-14.5 H PLATELET COUNT (test code = PLT) 146 K/mm3 150-450 L NEUTROPHIL % (test code = NT%) 65.5 % 40-76 N IMMATURE GRANULOCYTE % (test code = IG%) 0.6 % 0.0-5.0 N LYMPHOCYTE % (test code = LY%) 19.2 % 20.5-51.1 L MONOCYTE % (test code = MO%) 12.1 % 1.7-9.3 H EOSINOPHIL % (test code = EO%) 1.7 % 0.0-6.0 N BASOPHIL % (test code = BA%) 0.9 % 0.0-2.0 N NUCLEATED RBC % (test code = NRBC%) 0.0 /100WBC% 0.0-1.0 N NEUTROPHIL # (test code = NT#) 3.0 K/mm3 1.8-7.6 N IMMATURE GRANULOCYTE # (test code = IG#) 0.03 x10 3/uL 0.00-0.03 N LYMPHOCYTE # (test code = LY#) 0.9 K/mm3 0.6-3.0 N MONOCYTE # (test code = MO#) 0.6 K/mm3 0.2-1.5 N EOSINOPHIL # (test code = EO#) 0.1 K/mm3 0.0-0.4 N BASOPHIL # (test code = BA#) 0.0 K/mm3 0.0-0.2 N NUCLEATED RBC # (test code = NRBC#) 0.0 K/mm3 0.00-0.01 N MANUAL DIFF REQUIRED (test c ode = MDIFF) NO DIFF/SCN CRITERIA AG HEPATITIS B [id number] 03:43:00* Test Item Value Reference Range Interpretation Comme nts AG HEPATITIS B SURFACE (test code = HBSAG) NON REACTIVE INDEX NonReactive BASIC METABOLIC [id number] 07:04:00* Test Item Value Reference Range Interpretation Comme nts SODIUM (test code = NA) 137 mmol/L 134-147 N POTASSIUM (test code = K) 3.9 mmol/L 3.4-5.0 N CHLORIDE (test code = CL) 102 mmol/L 100-108 N CARBON DIOXIDE (test code = CO2) 23 mmol/L 21-32 N ANION GAP (test code = GAP) 12.0 GAP calc 4.0-15.0 N GLUCOSE (test code = GLU) 62 MG/DL 70-110 L BLOOD UREA NITROGEN (test co de = BUN) 24 MG/DL 7-18 H GLOMERULAR FILTRATION RATE (test code = GFR) 11 estGFR >60 L CREATININE (test code = CREAT) 6.3 MG/DL 0.8-1.3 H CALCIUM (test code = CA) 9.6 MG/DL 8.5-10.1 N [id number] 05:46:00* Test Item Value Reference Range Interpretation Comme nts VANCOMYCIN (test code = VANCO) 8.6 mcG/ML 5-40 N LACTIC [id number] 07:20:00* Test Item Value Reference Range Interpretation Comme nts LACTIC ACID (test code = LACT) 1.6 mmol/L 0.4-2.0 N BASIC METABOLIC [id number] 07:08:00* Test Item Value Reference Range Interpretation Comme nts SODIUM (test code = NA) 134 mmol/L 134-147 N POTASSIUM (test code = K) 3.5 mmol/L 3.4-5.0 N CHLORIDE (test code = CL) 102 mmol/L 100-108 N CARBON DIOXIDE (test code = CO2) 25 mmol/L 21-32 N ANION GAP (test code = GAP) 7.0 GAP calc 4.0-15.0 N GLUCOSE (test code = GLU) 57 MG/DL 70-110 L BLOOD UREA NITROGEN (test co de = BUN) 16 MG/DL 7-18 N GLOMERULAR FILTRATION RATE ( test code = GFR) 14 estGFR >60 L CREATININE (test code = CREAT) 5.3 MG/DL 0.8-1.3 H CALCIUM (test code = CA) 9.2 MG/DL 8.5-10.1 N LACTIC [id number] 18:57:00* Test Item Value Reference Range Interpretation Comme nts LACTIC ACID (test code = LACT) 2.2 mmol/L 0.4-2.0 H BASIC METABOLIC [id number] 17:57:00* Test Item Value Reference Range Interpretation Comme nts SODIUM (test code = NA) 134 mmol/L 134-147 N POTASSIUM (test code = K) 3.4 mmol/L 3.4-5.0 N CHLORIDE (test code = CL) 100 mmol/L 100-108 N CARBON DIOXIDE (test code = CO2) 27 mmol/L 21-32 N ANION GAP (test code = GAP) 7.0 GAP calc 4.0-15.0 N GLUCOSE (test code = GLU) 96 MG/DL 70-110 N BLOOD UREA NITROGEN (test co de = BUN) 13 MG/DL 7-18 N GLOMERULAR FILTRATION RATE ( test code = GFR) 13 estGFR >60 L CREATININE (test code = CREAT) 4.9 MG/DL 0.8-1.3 H CALCIUM (test code = CA) 9.6 MG/DL 8.5-10.1 N Completed by Nursing: NOHEPATIC FUNCTION [id number] 17:57:00* Test Item Value Reference Range Interpretation Comme nts TOTAL PROTEIN (test code = PROT) 6.9 G/DL 6.4-8.2 N ALBUMIN (test code = ALB) 2.7 G/DL 3.4-5.0 L BILIRUBIN TOTAL (test code = BILT) 0.50 MG/DL 0.2-1.2 N BILIRUBIN DIRECT (test code = BILD) 0.30 MG/DL 0.00-0.30 N BILIRUBIN INDIRECT (test cod e = BILIND) 0.20 MG/DL 0.2-1.2 N SGOT/AST (test code = AST) 14 Unit/L 15-37 L SGPT/ALT (test code = ALT) 11 Unit/L 12-78 L ALKALINE PHOSPHATASE TOTAL ( test code = ALKP) 168 Unit/L 50-136 H Completed by Nursing: NOTROP-I HIGH [id number] 17:57:00* Test Item Value Reference Range Interpretation Comme nts TROP-I HIGH SENSITIVITY (test code = TROPIHS) 10.6 ng/L 0-54 N CAUTION: Units o f the current test methodology (ng/L) differfrom the prior test methodology (ng/mL) by a factor of 1000. 99th Percentile Upper Reference Limit (URL):Females: 34 ng/LMales: 54 ng/L In order to distinguish acute elevations of high sensitivitytroponin from other clinical conditions, the FourthUniversal Definition of Myocardial Infarction stressesclinical assessment and the demonstration of a rise and/orfall in serial troponin results above the URL. Results from different methodologies should not be comparedto one another as quantitative results and URLs may varyby method. Completed by Nursing: NOLACTIC [id number] 17:57:00* Test Item Value Reference Range Interpretation Comme nts LACTIC ACID (test code = LACT) 2.5 mmol/L 0.4-2.0 H - XR HAND 3+V [id number] 17:49:00 [facility] 1955 Sex: M Name: IRA RAYA [facility] : 1955 Age/S: 66 / M [address] Unit #: [id number] Loc: [place] [address] Phys: Richy Barrios DO Acct: [id number] Dis Date: 20211118 Status: DIS IN PHONE #: [phone] Exam Date: 11/15/2021 1735 FAX #: Reason: index finger gangrene EXAMS: CPT: [id number] XR HAND 3+[place] [address] Fluoro Time: DAP (Gy m2): Air Kerma (mGy): Location: H 31 Exam: Left Hand, 3 Views History: Index finger gangrene Comparison: None Findings: The bones are diffusely demineralized. The erosive changes and fragmentation, possibly pathologic fracture, at the 2nd middle phalanx distally. Diffuse soft tissue swelling involves the 2nd digit. No evidence of soft tissue gas however. The remaining osseous structures demonstrate no findings. Vascular calcification isare seen at the distal forearm. Impression: 1. Erosive changes and fragmentation, possibly pathologic fracture, at the 2nd middle phalanx distally. Diffuse soft tissue swelling involves the 2nd digit. No evidence of soft tissue gas however. 2. Diffuse osteopenia noted. at 1749 Reported and signed by: Bindu Villegas MD CC: Richy Barrios DO PAGE 1 Signed Report Name: IRA RAYA [facility] : 1955 Age/S: 66 / M [id number] Unit #: [id number] Loc: [place] [address] Phys: Richy Barrios DO Acct: [id number] Dis Date: 20211118 Status: DIS IN PHONE #: [phone] Exam Date: 11/15/20215FAX #: Reason: index finger gangrene EXAMS: CPT: [id number] XR HAND 3+[place] [address] Fluoro Time: DAP (Gy m2): Air Kerma (mGy): (Continued) Technologist: Yissel Penn RT(R)(CT) Trngab Date/Time: 11/15/2021 (174) [id number] Orig Print D/T: S: 11/15/2021 (5706) PAGE 2 Signed Report- XR HAND 3+V [id number] 17:49:00 [facility] 1955 Sex: M Name: IRA RAYA [facility] : 1955 Age/S: 66 / M [address] Unit #: [id number] Loc: [place] [address] Phys: Richy Barrios DO Acct: [id number] Dis Date: Status: REG ER PHONE #: [phone] Exam Date: 11/15/2021 1735 FAX #: Reason: index finger gangrene EXAMS: CPT: [id number] XR HAND 3+[place] [address] Fluoro Time: DAP (Gy m2): Air Kerma (mGy): Location: H 31 Exam: Left Hand, 3 Views History: Index finger gangrene Comparison: None Findings: The bones are diffusely demineralized. The erosive changes and fragmentation, possibly pathologic fracture, at the 2nd middle phalanx distally. Diffuse soft tissue swelling involves the 2nd digit. No evidence of soft tissue gas however. The remaining osseous structures demonstrate no findings. Vascular calcification is are seen at the distal forearm. Impression: 1. Erosive changes and fragmentation, possibly pathologic fracture, at the 2nd middle phalanx distally. Diffuse soft tissue swelling involves the 2nd digit. No evidence of soft tissue gas however. 2. Diffuse osteopenia noted. at 1749 Reported and signed by: Bindu Villegas MD CC: Richy Barrios DO PAGE 1 Signed Report Name: IRA RAYA [facility] : 1955 Age/S:66 / M [address] Unit #: [id number] Loc: [place] [address] Phys: Richy Barrios DO Acct: [id number] Dis Date: Status: REG ER PHONE #: [phone] Exam Date: 11/15/2021 1735 FAX #: Reason: index finger gangrene EXAMS: CPT: [id number] XR HAND 3+[place] [address] Fluoro Time: DAP (Gy m2): Air Kerma (mGy): <Continued> Technologist: Yissel Penn, RT(R)(CT) Trnscb Date/Time: 11/15/2021 (810) [id number] Orig Print D/T: S: 11/15/2021 (7356) PAGE 2 Signed ReportCBC W/AUTO [id number] 17:42:00* Test Item Value Reference Range Interpretation Comme nts WHITE BLOOD CELL (test code = WBC) 5.7 K/mm3 3.5-11.0 N RED BLOOD CELL (test code = RBC) 4.43 M/mm3 4.70-6.10 L HEMOGLOBIN (test code = HGB) 10.7 G/DL 12.3-15.9 L HEMATOCRIT (test code = HCT) 35.7 % 35.8-46.7 L MEAN CELL VOLUME (test code = MCV) 80.6 Fl 86.3-98.9 L MEAN CELL HGB (test code = MCH) 24.2 pg 28.9-34.4 L MEAN CELL HGB CONCETRATION (test code = MCHC) 30.0 G/DL 32.1-34.5 L RED CELL DISTRIBUTION WIDTH (test code = RDW) 20.2 SD 11.5-14.5 H PLATELET COUNT (test code = PLT) 175 K/mm3 150-450 N MEAN PLATELET VOLUME (test c ode = MPV) 10.60 fL 7.0-9.6 H NEUTROPHIL % (test code = NT%) 72.2 % 40-76 N IMMATURE GRANULOCYTE % (test code = IG%) 0.5 % 0.0-5.0 N LYMPHOCYTE % (test code = LY%) 15.9 % 20.5-51.1 L MONOCYTE % (test code = MO%) 10.2 % 1.7-9.3 H EOSINOPHIL % (test code = EO%) 0.5 % 0.0-6.0 N BASOPHIL % (test code = BA%) 0.7 % 0.0-2.0 N NUCLEATED RBC % (test code = NRBC%) 0.0 /100WBC% 0.0-1.0 N NEUTROPHIL # (test code = NT#) 4.1 K/mm3 1.8-7.6 N IMMATURE GRANULOCYTE # (test code = IG#) 0.03 x10 3/uL 0.00-0.03 N LYMPHOCYTE # (test code = LY#) 0.9 K/mm3 0.6-3.0 N MONOCYTE # (test code = MO#) 0.6 K/mm3 0.2-1.5 N EOSINOPHIL # (test code = EO#) 0.0 K/mm3 0.0-0.4 N BASOPHIL # (test code = BA#) 0.0 K/mm3 0.0-0.2 N NUCLEATED RBC # (test code = NRBC#) 0.0 K/mm3 0.00-0.01 N MANUAL DIFF REQUIRED (test c ode = MDIFF) NO DIFF/SCN CRITERIA - XR CHEST 1 [id number] 17:41:00 [facility] 1955 Sex: M Name: IRA RAYA [facility] : 1955 Age/S: 66 / M [address] Unit #: [id number] Loc: [place] [address] Phys: Richy Barrios DO Acct: [id number] Dis Date: 20211118 Status: DIS IN PHONE #: [phone] Exam Date: 11/15/20211739 FAX #: Reason: Code Sepsis EXAMS: CPT: [id number] XR CHEST 1 V 56026 Fluoro Time: DAP (Gy m2): Air Kerma (mGy): B2 EXAM: - XR CHEST 1 V HISTOR Y: Code Sepsis COMPARISON: None FINDINGS: The lungs are clear. No pleural effusion or pneumothorax. The cardiac silhouette is within normal limits. No acute osseous abnormalities. IMPRESSION: No acute cardiopulmonary disease. at 1741 Reported and signed by: Chris You M.D. CC: Richy Barrios DO PAGE 1 Signed Report Name: IRA RAYA BRENDON [facility] : 1955 Age/S: 66 / M [address] Unit #: [id number] Loc: [place] [address] Phys: Richy Barrios DO Acct: [id number] Dis Date: 20211118 Status: DIS IN PHONE #: [phone] Exam Date: 11/15/20211739 FAX #: Reason: Code Sepsis EXAMS: CPT: [id number] XR CHEST 1 V 71 045 Fluoro Time: DAP (Gy m2): Air Kerma (mGy): (Continued) Technologist: Yissel Penn, RT(R)(CT) Trnscb Date/Time: 11/15/2021 (1740) [email or web address] Orig Print D/T: S: 11/15/2021 (3246) PAGE 2 SignedReport- XR CHEST 1 [id number] 17:41:00 [facility] : 1955 Sex: M Name: IRA RAYA [facility] : 1955 Age/S: 66 / M [address] Unit #: [id number] Loc: [place] [address] Phys: Richy Barrios DO Acct: [id number] Dis Date: Status: PRE ER PHONE #: [phone] Exam Date: 11/15/20211739 FAX #: Reason: Code Sepsis EXAMS: CPT: [id number] XR CHEST 1 V 77325 Fluoro Time: DAP (Gy m2): Air Kerma (mGy): B2 EXAM: - XR CHEST 1 V HISTORY: Code Sepsis COMPARISON: None FINDINGS: The lungs are clear. No pleural effusion or pneumothorax. The cardiacsilhouette is within normal limits. No acute osseous abnormalities. IMPRESSION: No acute cardiopulmonary disease. at 1741 Reported and signed by: Chris You M.D. CC: Richy Barrios DO PAGE 1 Signed Report Name: IRA RAYA [facility] : 1955 Age/S: 66 / M [id number] [facility] Unit #: [id number] Loc: [place] [address] Phys: Richy Barrios DO Acct: [id number] Dis Date: Status: PRE ER PHONE #: [phone] Exam Date: 1739 FAX #: Reason: Code Sepsis EXAMS: CPT: [id number] XR CHEST 1 V 50021 Fluoro Time: DAP (Gy m2): Air Kerma (mGy): <Continued> Technologist: Yissel Penn RT(R)(CT) Trnscb Date/Time: 11/15/2021 (1740) [id number] Orig Print D/T: S: 11/15/2021 (5623) PAGE 2 Signed ReportCOVID 19 Asymptomatic IH AG 2021-11-15 17:30:00* Test Item Value Reference Range Interpretation Comme nts COVID 19 Asymptomatic IH AG (test code = COVNONPUIAG) NEGATIVE Negative Per senior cytogenetic technologist , negative results should be treated aspresumptive and, if inconsistent with clinical signs andsymptoms or necessary for patient management, should betested with an alternative molecular assay. Negative resultsdo not preclude SARS-CoV-2 infection and should not be usedas the sole basis for patient management decisions. Negative results should be considered in the context of apatient's recent exposures, history, presence of clinicalsigns and symptoms consistent with COVID-19. AB HEPATITIS B [id number] 14:12:00* Test Item Value Reference Range Interpretation Comme nts AB HEPATITIS B SURFACE (test code = HBSAB) <3.1 mIU/mL See_Comment A Status of Immuni ty Anti-HBs Level Inconsi stent with Immunity 0.0 - 9.9Consistent with Immunity >9.9 [Automated message] The system which generated this result transmitted reference range: Immunity>9.9. The reference range was not used to interpret this result as normal/abnormal. AG HEPATITIS B [id number] 14:12:00* Test Item Value Reference Range Interpretation Comme nts AG HEPATITIS B SURFACE (test code = HBSAG) NON REACTIVE INDEX NonReactive AB HEPATITIS B [id number] 14:12:00* Test Item Value Reference Range Interpretation Comme nts AB HEPATITIS B CORE (test code = HBCAB) Negative Negative Performed At : [facility] [id number] Sulaiman Navas MD Ph:[phone] BASIC METABOLIC [id number] 06:55:00* Test Item Value Reference Range Interpretation Comme nts SODIUM (test code = NA) 137 mmol/L 134-147 N POTASSIUM (test code = K) 4.0 mmol/L 3.4-5.0 N CHLORIDE (test code = CL) 101 mmol/L 100-108 N CARBON DIOXIDE (test code = CO2) 27 mmol/L 21-32 N ANION GAP (test code = GAP) 9.0 GAP calc 4.0-15.0 N GLUCOSE (test code = GLU) 71 MG/DL 70-110 N BLOOD UREA NITROGEN (test co de = BUN) 21 MG/DL 7-18 H GLOMERULAR FILTRATION RATE ( test code = GFR) 10 estGFR >60 L CREATININE (test code = CREAT) 7.0 MG/DL 0.8-1.3 H CALCIUM (test code = CA) 9.0 MG/DL 8.5-10.1 N CBC W/AUTO [id number] 06:33:00* Test Item Value Reference Range Interpretation Comme nts WHITE BLOOD CELL (test code = WBC) 6.6 K/mm3 3.5-11.0 N RED BLOOD CELL (test code = RBC) 4.52 M/mm3 4.70-6.10 L HEMOGLOBIN (test code = HGB) 10.7 G/DL 12.3-15.9 L HEMATOCRIT (test code = HCT) 35.2 % 35.8-46.7 L MEAN CELL VOLUME (test code = MCV) 77.9 Fl 86.3-98.9 L MEAN CELL HGB (test code = MCH) 23.7 pg 28.9-34.4 L MEAN CELL HGB CONCETRATION (test code = MCHC) 30.4 G/DL 32.1-34.5 L RED CELL DISTRIBUTION WIDTH (test code = RDW) 18.9 SD 11.5-14.5 H PLATELET COUNT (test code = PLT) 186 K/mm3 150-450 N MEAN PLATELET VOLUME (test c ode = MPV) 9.90 fL 7.0-9.6 H NEUTROPHIL % (test code = NT%) 75.1 % 40-76 N IMMATURE GRANULOCYTE % (test code = IG%) 0.8 % 0.0-5.0 N LYMPHOCYTE % (test code = LY%) 12.1 % 20.5-51.1 L MONOCYTE % (test code = MO%) 10.8 % 1.7-9.3 H EOSINOPHIL % (test code = EO%) 0.9 % 0.0-6.0 N BASOPHIL % (test code = BA%) 0.3 % 0.0-2.0 N NUCLEATED RBC % (test code = NRBC%) 0.0 /100WBC% 0.0-1.0 N NEUTROPHIL # (test code = NT#) 5.0 K/mm3 1.8-7.6 N IMMATURE GRANULOCYTE # (test code = IG#) 0.05 x10 3/uL 0.00-0.03 H LYMPHOCYTE # (test code = LY#) 0.8 K/mm3 0.6-3.0 N MONOCYTE # (test code = MO#) 0.7 K/mm3 0.2-1.5 N EOSINOPHIL # (test code = EO#) 0.1 K/mm3 0.0-0.4 N BASOPHIL # (test code = BA#) 0.0 K/mm3 0.0-0.2 N NUCLEATED RBC # (test code = NRBC#) 0.0 K/mm3 0.00-0.01 N MANUAL DIFF REQUIRED (test c ode = MDIFF) NO DIFF/SCN CRITERIA [id number] 05:55:00* Test Item Value Reference Range Interpretation Comme nts PHOSPHOROUS (test code = PHOS) 3.5 MG/DL 2.5-4.9 N AG HEPATITIS B [id number] 03:08:00* Test Item Value Reference Range Interpretation Comme nts AG HEPATITIS B SURFACE (test code = HBSAG) NON REACTIVE INDEX NonReactive COVID 19 Asymptomatic IH [id number] 19:39:00* Test Item Value Reference Range Interpretation Comme nts COVID 19 Asymptomatic IH AG (test code = COVNONPUIAG) NEGATIVE Negative Per senior cytogenetic technologist , negative results should be treated aspresumptive and, if inconsistent with clinical signs andsymptoms or necessary for patient management, should betested with an alternative molecular assay. Negative resultsdo not preclude SARS-CoV-2 infection and should not be usedas the sole basis for patient management decisions. Negative results should be considered in the context of apatient's recent exposures, history, presence of clinicalsigns and symptoms consistent with COVID-19. BASIC METABOLIC [id number] 19:21:00* Test Item Value Reference Range Interpretation Comme nts SODIUM (test code = NA) 135 mmol/L 134-147 N POTASSIUM (test code = K) 3.6 mmol/L 3.4-5.0 N CHLORIDE (test code = CL) 98 mmol/L 100-108 L CARBON DIOXIDE (test code = CO2) 31 mmol/L 21-32 N ANION GAP (test code = GAP) 6.0 GAP calc 4.0-15.0 N GLUCOSE (test code = GLU) 62 MG/DL 70-110 L BLOOD UREA NITROGEN (test co de = BUN) 14 MG/DL 7-18 N GLOMERULAR FILTRATION RATE ( test code = GFR) 14 estGFR >60 L CREATININE (test code = CREAT) 5.3 MG/DL 0.8-1.3 H CALCIUM (test code = CA) 9.4 MG/DL 8.5-10.1 N CBC W/AUTO [id number] 19:02:00* Test Item Value Reference Range Interpretation Comme nts WHITE BLOOD CELL (test code = WBC) 4.8 K/mm3 3.5-11.0 N RED BLOOD CELL (test code = RBC) 4.50 M/mm3 4.70-6.10 L HEMOGLOBIN (test code = HGB) 10.6 G/DL 12.3-15.9 L HEMATOCRIT (test code = HCT) 35.3 % 35.8-46.7 L MEAN CELL VOLUME (test code = MCV) 78.4 Fl 86.3-98.9 L MEAN CELL HGB (test code = MCH) 23.6 pg 28.9-34.4 L MEAN CELL HGB CONCETRATION (test code = MCHC) 30.0 G/DL 32.1-34.5 L RED CELL DISTRIBUTION WIDTH (test code = RDW) 18.7 SD 11.5-14.5 H PLATELET COUNT (test code = PLT) 216 K/mm3 150-450 N MEAN PLATELET VOLUME (test c ode = MPV) 9.80 fL 7.0-9.6 H NEUTROPHIL % (test code = NT%) 66.7 % 40-76 N IMMATURE GRANULOCYTE % (test code = IG%) 1.3 % 0.0-5.0 N LYMPHOCYTE % (test code = LY%) 19.8 % 20.5-51.1 L MONOCYTE % (test code = MO%) 10.3 % 1.7-9.3 H EOSINOPHIL % (test code = EO%) 1.5 % 0.0-6.0 N BASOPHIL % (test code = BA%) 0.4 % 0.0-2.0 N NUCLEATED RBC % (test code = NRBC%) 0.0 /100WBC% 0.0-1.0 N NEUTROPHIL # (test code = NT#) 3.2 K/mm3 1.8-7.6 N IMMATURE GRANULOCYTE # (test code = IG#) 0.06 x10 3/uL 0.00-0.03 H LYMPHOCYTE # (test code = LY#) 0.9 K/mm3 0.6-3.0 N MONOCYTE # (test code = MO#) 0.5 K/mm3 0.2-1.5 N EOSINOPHIL # (test code = EO#) 0.1 K/mm3 0.0-0.4 N BASOPHIL # (test code = BA#) 0.0 K/mm3 0.0-0.2 N NUCLEATED RBC # (test code = NRBC#) 0.0 K/mm3 0.00-0.01 N MANUAL DIFF REQUIRED (test c ode = MDIFF) NO DIFF/SCN CRITERIA - CT UP EXTREM W/O CONT [id number] 13:39:00 [facility] 1955 Sex: M Name: IRA RAYA [facility] : 1955 Age/S: 66 / M [address] [address] Unit #: [id number] Loc: [place] [address] Phys: Jyoti Andrew MD Acct: [id number] Dis Date: Status: REG ER PHONE #: [phone] Exam Date: 10/05/2021 1050 FAX #: Reason: left hand pain/swelling EXAMS: CPT: [id number] CT [place] EXTREM W/[place] [address] Location: [facility] Study: - CT UP EXTREM W/O CONT LT History: left hand pain/swelling Technique: Axial CT examination of the left hand was performed without intravenous contrast. 3-D, sagittal and coronal reconstructions were also obtained. One or more of the following dose reduction techniques were used: Automated exposure control, adjustment of the mA and/or kV according to patient size, and/or utilization of iterative reconstruction technique. Comparison: None Findings: There is no acute fracture. There is no subluxation or dislocation of the visualized joints. There are multiple intraosseous cysts within the carpal bones, largest within the distal scaphoid pole measuring 8 mm. No acute bony erosion or osseous destruction is present. There is a partially visualized tubular hypodense structure with peripheral calcifications within the forearm adjacent to the distal radius measuring up to 11 mm in diameter. No obvious fluid distention of the extensor flexor tendon sheaths is appreciated. Diffuse subcutaneous edema is without organized fluid collection. There are no radiopaque foreign bodies. IMPRESSION: No evidence for acute osseous abnormality. Partially visualized tubular appearing structure within the lateral distal forearm, this could reflect a graft or venous varicosity for which peripheral calcifications would suggest chronic thrombosis. Correlate with surgical history. Nonspecific diffuse subcutaneous edema. at 1339 Reported and signed by: Tyrese Thorne M.D. PAGE 1 Signed Report (CONTINUED) Name: IRA RAYA [facility] : 1955 Age/S: 66 / M [address] [address] Unit #: [id number] Loc: [place] [address] Phys: Jyoti Andrew MD Acct: [id number] Dis Date: Status: REG ER PHONE #: [phone] Exam Date: 10/05/2021 1050 FAX #: Reason: left hand pain/swelling EXAMS: CPT: [id number] CT UP EXTREM W/[place] [address] (Continued) CC: Keisha Benson MD; Rhea HUNTER; Jyoti Andrew MD Technologist:Luis Manuel Ceballos, RT(R)(CT); .. CTDI: DLP: Trnscb Date/Time: 10/05/2021 (1339) t.[email or web address].RH16 Orig Print D/T: S: 10/05/2021 (1342) PAGE 2 Signed ReportBASIC METABOLIC [id number] 12:38:00* Test Item Value Reference Range Interpretation Comme nts SODIUM (test code = NA) 136 mmol/L 134-147 N POTASSIUM (test code = K) 3.5 mmol/L 3.4-5.0 N CHLORIDE (test code = CL) 99 mmol/L 100-108 L CARBON DIOXIDE (test code = CO2) 30 mmol/L 21-32 N ANION GAP (test code = GAP) 7.0 GAP calc 4.0-15.0 N GLUCOSE (test code = GLU) 84 MG/DL 70-110 N BLOOD UREA NITROGEN (test co de = BUN) 24 MG/DL 7-18 H GLOMERULAR FILTRATION RATE ( test code = GFR) 12 estGFR >60 L CREATININE (test code = CREAT) 6.2 MG/DL 0.8-1.3 H CALCIUM (test code = CA) 8.1 MG/DL 8.5-10.1 L Completed by Nursing: NOHEPATIC FUNCTION [id number] 12:38:00* Test Item Value Reference Range Interpretation Comme nts TOTAL PROTEIN (test code = PROT) 6.3 G/DL 6.4-8.2 L ALBUMIN (test code = ALB) 2.3 G/DL 3.4-5.0 L BILIRUBIN TOTAL (test code = BILT) 0.50 MG/DL 0.2-1.2 N BILIRUBIN DIRECT (test code = BILD) 0.20 MG/DL 0.00-0.30 N BILIRUBIN INDIRECT (test cod e = BILIND) 0.30 MG/DL 0.2-1.2 N SGOT/AST (test code = AST) 12 Unit/L 15-37 L SGPT/ALT (test code = ALT) 10 Unit/L 12-78 L ALKALINE PHOSPHATASE TOTAL ( test code = ALKP) 155 Unit/L 50-136 H Completed by Nursing: NOTROP-I HIGH [id number] 12:38:00* Test Item Value Reference Range Interpretation Comme nts TROP-I HIGH SENSITIVITY (test code = TROPIHS) 11.5 ng/L 0-54 N CAUTION: Units o f the current test methodology (ng/L) differfrom the prior test methodology (ng/mL) by a factor of 1000. 99th Percentile Upper Reference Limit (URL):Females: 34 ng/LMales: 54 ng/L In order to distinguish acute elevations of high sensitivitytroponin from other clinical conditions, the FourthUniversal Definition of Myocardial Infarction stressesclinical assessment and the demonstration of a rise and/orfall in serial troponin results above the URL. Results from different methodologies should not be comparedto one another as quantitative results and URLs may varyby method. Completed by Nursing: NOLACTIC [id number] 12:16:00* Test Item Value Reference Range Interpretation Comme nts LACTIC ACID (test code = LACT) 1.5 mmol/L 0.4-2.0 N CBC W/AUTO [id number] 12:05:00* Test Item Value Reference Range Interpretation Comme nts WHITE BLOOD CELL (test code = WBC) 5.6 K/mm3 3.5-11.0 N RED BLOOD CELL (test code = RBC) 4.19 M/mm3 4.70-6.10 L HEMOGLOBIN (test code = HGB) 10.2 G/DL 12.3-15.9 L HEMATOCRIT (test code = HCT) 34.2 % 35.8-46.7 L MEAN CELL VOLUME (test code = MCV) 81.6 Fl 86.3-98.9 L MEAN CELL HGB (test code = MCH) 24.3 pg 28.9-34.4 L MEAN CELL HGB CONCETRATION (test code = MCHC) 29.8 G/DL 32.1-34.5 L RED CELL DISTRIBUTION WIDTH (test code = RDW) 18.5 SD 11.5-14.5 H PLATELET COUNT (test code = PLT) 180 K/mm3 150-450 N MEAN PLATELET VOLUME (test c ode = MPV) 10.10 fL 7.0-9.6 H NEUTROPHIL % (test code = NT%) 72.7 % 40-76 N IMMATURE GRANULOCYTE % (test code = IG%) 0.5 % 0.0-5.0 N LYMPHOCYTE % (test code = LY%) 13.1 % 20.5-51.1 L MONOCYTE % (test code = MO%) 12.1 % 1.7-9.3 H EOSINOPHIL % (test code = EO%) 1.1 % 0.0-6.0 N BASOPHIL % (test code = BA%) 0.5 % 0.0-2.0 N NUCLEATED RBC % (test code = NRBC%) 0.0 /100WBC% 0.0-1.0 N NEUTROPHIL # (test code = NT#) 4.1 K/mm3 1.8-7.6 N IMMATURE GRANULOCYTE # (test code = IG#) 0.03 x10 3/uL 0.00-0.03 N LYMPHOCYTE # (test code = LY#) 0.7 K/mm3 0.6-3.0 N MONOCYTE # (test code = MO#) 0.7 K/mm3 0.2-1.5 N EOSINOPHIL # (test code = EO#) 0.1 K/mm3 0.0-0.4 N BASOPHIL # (test code = BA#) 0.0 K/mm3 0.0-0.2 N NUCLEATED RBC # (test code = NRBC#) 0.0 K/mm3 0.00-0.01 N MANUAL DIFF REQUIRED (test c ode = IFF) NO DIFF/SCN CRITERIA - XR CHEST 1 [id number] 11:11:00 [facility] 1955 Sex: M Name: IRA RAYA [facility] : 1955 Age/S: 66 / M [id number] [address] Unit #: [id number] Loc: [place] [address] Phys: Jyoti Andrew MD Acct: [id number] Dis Date: Status: REG ER PHONE #: [phone] Exam Date: 10/05/2021 1055 FAX #: Reason: Code Sepsis EXAMS: CPT: [id number] XR CHEST 1 V 06949 Fluoro Time: DAP (Gy m2): Air Kerma (mGy): Clinical Information: Code sepsis. Infection left hand Dictation Location: COMPARISON: 04/11/2021. FINDINGS: Portable frontal view of the chest taken at 1050 hours shows mild cardiomegaly. Mild central vascular interstitial prominence remains although is somewhat less prominent than on the prior study. Slight elevation of the left hemidiaphragm again noted. No support tubes or lines are seen at this time. There remains slight blunting ofthe left costophrenic angle. No interval bone changes. IMPRESSION: 1. Stable cardiomegaly. 2. Interval reduction in prominence of vascular interstitial markings. at 1111 Reported and signed by: Erlin An M.D. CC: Keisha Benson MD; Naina Byrne PA; Jyoti Andrew MD PAGE 1 Signed Report Name: IRA RAYA [facility] : 1955 Age/S: 66 / M [address] [address] Unit #: [id number] Loc: [place], [place] [address]Dkhx: Jyoti Andrew MD Acct: [id number] Dis Date: Status: REG ER PHONE #: [phone] Exam Date: 10/05/2021 1055 FAX #: Reason: Code Sepsis EXAMS: CPT: [id number] XR CHEST 1 V 96985 Fluoro Time: DAP (Gy m2): Air Kerma (mGy): (Continued) Technologist: Lucy Yo RT(R) Trnscb Date/Time: 10/05/2021 (1111) t.AGV Orig Print D/T: S: 10/05/2021 (1114) PAGE 2 Signed Report GLUCOSE BEDSIDE [id number] 15:57:00* Test Item Value Reference Range Interpretation Comme nts GLUCOSE BEDSIDE TESTING (zaki t code = GLUBED) 101 mg/dL 70-110 N GLUCOSE BEDSIDE [id number] 11:38:00* Test Item Value Reference Range Interpretation Comme nts GLUCOSE BEDSIDE TESTING (zaki t code = GLUBED) 102 mg/dL 70-110 N GLUCOSE BEDSIDE [id number] 07:31:00* Test Item Value Reference Range Interpretation Comme nts GLUCOSE BEDSIDE TESTING (zaki t code = GLUBED) 78 mg/dL 70-110 N CBC W/AUTO [id number] 07:02:00* Test Item Value Reference Range Interpretation Comme nts WHITE BLOOD CELL (test code = WBC) 11.9 K/mm3 3.5-11.0 H RED BLOOD CELL (test code = RBC) 5.02 M/mm3 4.70-6.10 N HEMOGLOBIN (test code = HGB) 12.7 G/DL 12.3-15.9 N HEMATOCRIT (test code = HCT) 42.1 % 35.8-46.7 N MEAN CELL VOLUME (test code = MCV) 83.9 Fl 86.3-98.9 L MEAN CELL HGB (test code = MCH) 25.3 pg 28.9-34.4 L MEAN CELL HGB CONCETRATION (test code = MCHC) 30.2 G/DL 32.1-34.5 L RED CELL DISTRIBUTION WIDTH (test code = RDW) 23.2 SD 11.5-14.5 H PLATELET COUNT (test code = PLT) 112 K/mm3 150-450 L NEUTROPHIL % (test code = NT%) 79.0 % 40-76 H IMMATURE GRANULOCYTE % (test code = IG%) 1.7 % 0.0-5.0 N LYMPHOCYTE % (test code = LY%) 9.0 % 20.5-51.1 L MONOCYTE % (test code = MO%) 10.1 % 1.7-9.3 H EOSINOPHIL % (test code = EO%) 0.1 % 0.0-6.0 N BASOPHIL % (test code = BA%) 0.1 % 0.0-2.0 N NUCLEATED RBC % (test code = NRBC%) 0.5 /100WBC% 0.0-1.0 N NEUTROPHIL # (test code = NT#) 9.4 K/mm3 1.8-7.6 H IMMATURE GRANULOCYTE # (test code = IG#) 0.20 x10 3/uL 0.00-0.03 H LYMPHOCYTE # (test code = LY#) 1.1 K/mm3 0.6-3.0 N MONOCYTE # (test code = MO#) 1.2 K/mm3 0.2-1.5 N EOSINOPHIL # (test code = EO#) 0.0 K/mm3 0.0-0.4 N BASOPHIL # (test code = BA#) 0.0 K/mm3 0.0-0.2 N NUCLEATED RBC # (test code = NRBC#) 0.1 K/mm3 0.00-0.01 H MANUAL DIFF REQUIRED (test code = MDIFF) NO DIFF/SCN CRITERIA SLIDE REVIEW CONSISTANT WITH AUTO DIFFERENTIAL. RBC [id number] 07:02:00* Test Item Value Reference Range Interpretation Comme nts POLYCHROMASIA (test code = POLC) TRACE ON SCAN NONE HYPOCHROMIA (test code = HYPO) TRACE ON SCAN NONE ANISOCYTOSIS (test code = ANISO) 2+ NONE A MICROCYTOSIS (test code = MICR) 1+ ON SCAN NONE MACROCYTOSIS (test code = MACR) TRACE ON SCAN NONE SPHEROCYTES (test code = SPH) TRACE ON SCAN NONE TARGET CELLS (test code = TGT) 1+ ON SCAN NONE STOMATOCYTES (test code = STO) TRACE ON SCAN NONE PLATELET ESTIMATE (test code = PLTEST) SLIGHTLY DECREASED THOUSAND ADEQUATE PLATELET MORPHOLOGY (test code = PLTMORPH) NORMAL GLUCOSE BEDSIDE [id number] 20:16:00* Test Item Value Reference Range Interpretation Comme nts GLUCOSE BEDSIDE TESTING (zaki t code = GLUBED) 89 mg/dL 70-110 N GLUCOSE BEDSIDE [id number] 15:43:00* Test Item Value Reference Range Interpretation Comme nts GLUCOSE BEDSIDE TESTING (zaki t code = GLUBED) 108 mg/dL 70-110 N COVID 19 INHOUSE [id number] 12:34:00* Test Item Value Reference Range Interpretation Comme nts COVID 19 INHOUSE AG (test code = [id number]) NEGATIVE Negative Per senior cytogenetic technologist , negative results should be treated aspresumptive and, if inconsistent with clinical signs andsymptoms or necessary for patient management, should betested with an alternative molecular assay. Negative resultsdo not preclude SARS-CoV-2 infection and should not be usedas the sole basis for patient management decisions. Negative results should be considered in the context of apatient's recent exposures, history, presence of clinicalsigns and symptoms consistent with COVID-19. GLUCOSE BEDSIDE [id number] 11:49:00* Test Item Value Reference Range Interpretation Comme nts GLUCOSE BEDSIDE TESTING (zaki t code = GLUBED) 119 mg/dL 70-110 H GLUCOSE BEDSIDE [id number] 07:31:00* Test Item Value Reference Range Interpretation Comme nts GLUCOSE BEDSIDE TESTING (zaki t code = GLUBED) 111 mg/dL 70-110 H GLUCOSE BEDSIDE [id number] 20:42:00* Test Item Value Reference Range Interpretation Comme nts GLUCOSE BEDSIDE TESTING (zaki t code = GLUBED) 116 mg/dL 70-110 H GLUCOSE BEDSIDE [id number] 16:51:00* Test Item Value Reference Range Interpretation Comme nts GLUCOSE BEDSIDE TESTING (zaki t code = GLUBED) 114 mg/dL 70-110 H GLUCOSE BEDSIDE [id number] 11:48:00* Test Item Value Reference Range Interpretation Comme nts GLUCOSE BEDSIDE TESTING (zaki t code = GLUBED) 124 mg/dL 70-110 H GLUCOSE BEDSIDE [id number] 07:48:00* Test Item Value Reference Range Interpretation Comme nts GLUCOSE BEDSIDE TESTING (zaki t code = GLUBED) 99 mg/dL 70-110 N GLUCOSE BEDSIDE [id number] 21:38:00* Test Item Value Reference Range Interpretation Comme nts GLUCOSE BEDSIDE TESTING (zaki t code = GLUBED) 102 mg/dL 70-110 N GLUCOSE BEDSIDE [id number] 16:06:00* Test Item Value Reference Range Interpretation Comme nts GLUCOSE BEDSIDE TESTING (zaki t code = GLUBED) 138 mg/dL 70-110 H GLUCOSE BEDSIDE [id number] 12:05:00* Test Item Value Reference Range Interpretation Comme nts GLUCOSE BEDSIDE TESTING (zaki t code = GLUBED) 121 mg/dL 70-110 H GLUCOSE BEDSIDE [id number] 07:29:00* Test Item Value Reference Range Interpretation Comme nts GLUCOSE BEDSIDE TESTING (zaki t code = GLUBED) 112 mg/dL 70-110 H CBC W/AUTO [id number] 05:57:00* Test Item Value Reference Range Interpretation Comme nts WHITE BLOOD CELL (test code = WBC) 8.6 K/mm3 3.5-11.0 N RED BLOOD CELL (test code = RBC) 4.80 M/mm3 4.70-6.10 N HEMOGLOBIN (test code = HGB) 12.1 G/DL 12.3-15.9 L HEMATOCRIT (test code = HCT) 40.3 % 35.8-46.7 N MEAN CELL VOLUME (test code = MCV) 84.0 Fl 86.3-98.9 L MEAN CELL HGB (test code = MCH) 25.2 pg 28.9-34.4 L MEAN CELL HGB CONCETRATION (test code = MCHC) 30.0 G/DL 32.1-34.5 L RED CELL DISTRIBUTION WIDTH (test code = RDW) 21.1 SD 11.5-14.5 H PLATELET COUNT (test code = PLT) 115 K/mm3 150-450 L NEUTROPHIL % (test code = NT%) 86.1 % 40-76 H IMMATURE GRANULOCYTE % (test code = IG%) 1.4 % 0.0-5.0 N LYMPHOCYTE % (test code = LY%) 5.7 % 20.5-51.1 L MONOCYTE % (test code = MO%) 6.7 % 1.7-9.3 N EOSINOPHIL % (test code = EO%) 0.0 % 0.0-6.0 N BASOPHIL % (test code = BA%) 0.1 % 0.0-2.0 N NUCLEATED RBC % (test code = NRBC%) 1.3 /100WBC% 0.0-1.0 H NEUTROPHIL # (test code = NT#) 7.4 K/mm3 1.8-7.6 N IMMATURE GRANULOCYTE # (test code = IG#) 0.12 x10 3/uL 0.00-0.03 H LYMPHOCYTE # (test code = LY#) 0.5 K/mm3 0.6-3.0 L MONOCYTE # (test code = MO#) 0.6 K/mm3 0.2-1.5 N EOSINOPHIL # (test code = EO#) 0.0 K/mm3 0.0-0.4 N BASOPHIL # (test code = BA#) 0.0 K/mm3 0.0-0.2 N NUCLEATED RBC # (test code = NRBC#) 0.1 K/mm3 0.00-0.01 H MANUAL DIFF REQUIRED (test code = MDIFF) NO DIFF/SCN CRITERIA SLIDE REVIEW CONSISTANT WITH AUTO DIFFERENTIAL. BASIC METABOLIC [id number] 04:48:00* Test Item Value Reference Range Interpretation Comme nts SODIUM (test code = NA) 134 mmol/L 134-147 N POTASSIUM (test code = K) 3.9 mmol/L 3.4-5.0 N CHLORIDE (test code = CL) 99 mmol/L 100-108 L CARBON DIOXIDE (test code = CO2) 25 mmol/L 21-32 N ANION GAP (test code = GAP) 10.0 GAP calc 4.0-15.0 N GLUCOSE (test code = GLU) 113 MG/DL 70-110 H BLOOD UREA NITROGEN (test co de = BUN) 37 MG/DL 7-18 H GLOMERULAR FILTRATION RATE (test code = GFR) 10 estGFR >60 L CREATININE (test code = CREAT) 6.9 MG/DL 0.8-1.3 H CALCIUM (test code = CA) 9.3 MG/DL 8.5-10.1 N GLUCOSE BEDSIDE [id number] 20:01:00* Test Item Value Reference Range Interpretation Comme nts GLUCOSE BEDSIDE TESTING (zaki t code = GLUBED) 109 mg/dL 70-110 N GLUCOSE BEDSIDE [id number] 16:34:00* Test Item Value Reference Range Interpretation Comme nts GLUCOSE BEDSIDE TESTING (zaki t code = GLUBED) 94 mg/dL 70-110 N GLUCOSE BEDSIDE [id number] 12:13:00* Test Item Value Reference Range Interpretation Comme nts GLUCOSE BEDSIDE TESTING (zaki t code = GLUBED) 94 mg/dL 70-110 N GLUCOSE BEDSIDE [id number] 11:13:00* Test Item Value Reference Range Interpretation Comme nts GLUCOSE BEDSIDE TESTING (zaki t code = GLUBED) 102 mg/dL 70-110 N CBC W/AUTO [id number] 06:05:00* Test Item Value Reference Range Interpretation Comme nts WHITE BLOOD CELL (test code = WBC) 10.5 K/mm3 3.5-11.0 N RED BLOOD CELL (test code = RBC) 4.71 M/mm3 4.70-6.10 N HEMOGLOBIN (test code = HGB) 11.9 G/DL 12.3-15.9 L HEMATOCRIT (test code = HCT) 39.4 % 35.8-46.7 N MEAN CELL VOLUME (test code = MCV) 83.7 Fl 86.3-98.9 L MEAN CELL HGB (test code = MCH) 25.3 pg 28.9-34.4 L MEAN CELL HGB CONCETRATION (test code = MCHC) 30.2 G/DL 32.1-34.5 L RED CELL DISTRIBUTION WIDTH (test code = RDW) 20.2 SD 11.5-14.5 H PLATELET COUNT (test code = PLT) 146 K/mm3 150-450 L MEAN PLATELET VOLUME (test code = MPV) 10.30 fL 7.0-9.6 H NEUTROPHIL % (test code = NT%) 85.6 % 40-76 H IMMATURE GRANULOCYTE % (test code = IG%) 2.0 % 0.0-5.0 N LYMPHOCYTE % (test code = LY%) 5.0 % 20.5-51.1 L MONOCYTE % (test code = MO%) 7.0 % 1.7-9.3 N EOSINOPHIL % (test code = EO%) 0.1 % 0.0-6.0 N BASOPHIL % (test code = BA%) 0.3 % 0.0-2.0 N NUCLEATED RBC % (test code = NRBC%) 1.6 /100WBC% 0.0-1.0 H NEUTROPHIL # (test code = NT#) 9.0 K/mm3 1.8-7.6 H IMMATURE GRANULOCYTE # (test code = IG#) 0.21 x10 3/uL 0.00-0.03 H LYMPHOCYTE # (test code = LY#) 0.5 K/mm3 0.6-3.0 L MONOCYTE # (test code = MO#) 0.7 K/mm3 0.2-1.5 N EOSINOPHIL # (test code = EO#) 0.0 K/mm3 0.0-0.4 N BASOPHIL # (test code = BA#) 0.0 K/mm3 0.0-0.2 N NUCLEATED RBC # (test code = NRBC#) 0.2 K/mm3 0.00-0.01 H MANUAL DIFF REQUIRED (test code = MDIFF) NO DIFF/SCN CRITERIA SLIDE REVIEW CONSISTANT WITH AUTO DIFFERENTIAL. BASIC METABOLIC [id number] 05:29:00* Test Item Value Reference Range Interpretation Comme nts SODIUM (test code = NA) 137 mmol/L 134-147 N POTASSIUM (test code = K) 3.5 mmol/L 3.4-5.0 N CHLORIDE (test code = CL) 101 mmol/L 100-108 N CARBON DIOXIDE (test code = CO2) 27 mmol/L 21-32 N ANION GAP (test code = GAP) 9.0 GAP calc 4.0-15.0 N GLUCOSE (test code = GLU) 128 MG/DL 70-110 H BLOOD UREA NITROGEN (test co de = BUN) 24 MG/DL 7-18 H GLOMERULAR FILTRATION RATE ( test code = GFR) 14 estGFR >60 L CREATININE (test code = CREAT) 5.3 MG/DL 0.8-1.3 H CALCIUM (test code = CA) 10.3 MG/DL 8.5-10.1 H GLUCOSE BEDSIDE [id number] 21:29:00* Test Item Value Reference Range Interpretation Comme nts GLUCOSE BEDSIDE TESTING (zaki t code = GLUBED) 125 mg/dL 70-110 H GLUCOSE BEDSIDE [id number] 18:03:00* Test Item Value Reference Range Interpretation Comme nts GLUCOSE BEDSIDE TESTING (zaki t code = GLUBED) 130 mg/dL 70-110 H GLUCOSE BEDSIDE [id number] 16:33:00* Test Item Value Reference Range Interpretation Comme nts GLUCOSE BEDSIDE TESTING (zaki t code = GLUBED) 139 mg/dL 70-110 H GLUCOSE BEDSIDE [id number] 08:04:00* Test Item Value Reference Range Interpretation Comme nts GLUCOSE BEDSIDE TESTING (zaki t code = GLUBED) 124 mg/dL 70-110 H - XR CHEST 1 [id number] 08:00:00 [facility] 1955 Sex: M Name: IRA RAYA [facility] : 1955 Age/S: 65 / M [id number] Unit #: [id number] Loc: [place] [address] Phys: Noé Granado MD Acct: [id number] Dis Date: Status: ADM IN PHONE #: [phone] Exam Date: 04/11/2021629 FAX #: Reason: RESP FAILURE EXAMS: CPT: [id number] XR CHEST 1V 88234 Fluoro Time: DAP (Gy m2): Air Kerma (mGy): EXAMINATION: - XR CHEST 1 V. LOCATION: H42. HISTORY: RESP FAILURE, hypoxia, Covid 19. COMPARISON: Chest x-ray 04/10/21. FINDINGS: Examination is limited due to portable technique and patient body habitus. Cardiac silhouette/Mediastinal contour: Persistent enlargement of cardiac silhouette. Atherosclerotic calcification of aortic arch. Lungs: Bilat eral scattered interstitial and groundglass airspace opacities, unchanged. No large pleural effusion. Osseous Structures: Degenerative changes of thoracic spine. Additional Findings: Left-sided central line tip overlies lower SVC. IMPRESSION: Unchanged bilateral scattered interstitial and groundglass airspace opacities. [id number] Reported and signed by: Biju Fuentes M.D. CC: Noé Granado MD; Mandy Devlin MD PAGE1 Signed Report Name: IRA RAYA [place] : 1955 Age/S: 65 / M [id number] [facility] Unit #: [id number] Loc: [place] [address] Phys: Noé Granado MD Acct: [id number] Dis Date: Status: ADM IN PHONE #: [phone] Exam Date: 04/11/2021 0630 FAX #: Reason: RESP FAILURE EXAMS: CPT: [id number] XR CHEST 1 V 94221 Fluoro Time: DAP (Gy m2): Air Kerma (mGy): (Continued) Technologist: Marjorie Villavicencio, RT(R)(CT) Trnscb Date/Time: 04/11/2021 (0800) [email or web address] Orig Print D/T: S: 04/11/2021 (0803) PAGE 2 Signed ReportBASIC METABOLIC [id number] 05:55:00* Test Item Value Reference Range Interpretation Comme nts SODIUM (test code = NA) 135 mmol/L 134-147 N POTASSIUM (test code = K) 4.0 mmol/L 3.4-5.0 N CHLORIDE (test code = CL) 101 mmol/L 100-108 N CARBON DIOXIDE (test code = CO2) 23 mmol/L 21-32 N ANION GAP (test code = GAP) 11.0 GAP calc 4.0-15.0 N GLUCOSE (test code = GLU) 136 MG/DL 70-110 H BLOOD UREA NITROGEN (test co de = BUN) 46 MG/DL 7-18 H GLOMERULAR FILTRATION RATE (test code = GFR) 9 estGFR >60 L CREATININE (test code = CREAT) 8.1 MG/DL 0.8-1.3 H CALCIUM (test code = CA) 10.3 MG/DL 8.5-10.1 H CBC W/AUTO [id number] 05:44:00* Test Item Value Reference Range Interpretation Comme nts WHITE BLOOD CELL (test code = WBC) 16.8 K/mm3 3.5-11.0 H RED BLOOD CELL (test code = RBC) 5.01 M/mm3 4.70-6.10 N HEMOGLOBIN (test code = HGB) 12.6 G/DL 12.3-15.9 N HEMATOCRIT (test code = HCT) 42.1 % 35.8-46.7 N MEAN CELL VOLUME (test code = MCV) 84.0 Fl 86.3-98.9 L MEAN CELL HGB (test code = MCH) 25.1 pg 28.9-34.4 L MEAN CELL HGB CONCETRATION (test code = MCHC) 29.9 G/DL 32.1-34.5 L RED CELL DISTRIBUTION WIDTH (test code = RDW) 20.3 SD 11.5-14.5 H PLATELET COUNT (test code = PLT) 177 K/mm3 150-450 N MEAN PLATELET VOLUME (test c ode = MPV) 10.50 fL 7.0-9.6 H NEUTROPHIL % (test code = NT%) 86.6 % 40-76 H IMMATURE GRANULOCYTE % (test code = IG%) 1.5 % 0.0-5.0 N LYMPHOCYTE % (test code = LY%) 4.8 % 20.5-51.1 L MONOCYTE % (test code = MO%) 7.0 % 1.7-9.3 N EOSINOPHIL % (test code = EO%) 0.0 % 0.0-6.0 N BASOPHIL % (test code = BA%) 0.1 % 0.0-2.0 N NUCLEATED RBC % (test code = NRBC%) 1.4 /100WBC% 0.0-1.0 H NEUTROPHIL # (test code = NT#) 14.6 K/mm3 1.8-7.6 H IMMATURE GRANULOCYTE # (test code = IG#) 0.26 x10 3/uL 0.00-0.03 H LYMPHOCYTE # (test code = LY#) 0.8 K/mm3 0.6-3.0 N MONOCYTE # (test code = MO#) 1.2 K/mm3 0.2-1.5 N EOSINOPHIL # (test code = EO#) 0.0 K/mm3 0.0-0.4 N BASOPHIL # (test code = BA#) 0.0 K/mm3 0.0-0.2 N NUCLEATED RBC # (test code = NRBC#) 0.2 K/mm3 0.00-0.01 H MANUAL DIFF REQUIRED (test c ode = MDIFF) NO DIFF/SCN CRITERIA GLUCOSE BEDSIDE [id number] 20:41:00* Test Item Value Reference Range Interpretation Comme nts GLUCOSE BEDSIDE TESTING (zaki t code = GLUBED) 148 mg/dL 70-110 H GLUCOSE BEDSIDE [id number] 16:28:00* Test Item Value Reference Range Interpretation Comme nts GLUCOSE BEDSIDE TESTING (zaki t code = GLUBED) 135 mg/dL 70-110 H GLUCOSE BEDSIDE [id number] 12:03:00* Test Item Value Reference Range Interpretation Comme nts GLUCOSE BEDSIDE TESTING (zaki t code = GLUBED) 162 mg/dL 70-110 H ARTERIAL BLOOD [id number] 11:59:00* Test Item Value Reference Range Interpretation Comme nts ARTERIAL BLOOD GAS PH (test code = PHA) 7.37 pH units 7.35-7.45 N ARTERIAL BLOOD GAS PCO2 (test code = PCO2A) 35 mmHg 35-45 N ARTERIAL BLOOD GAS PO2 (test code = PO2A) 123 mmHg 80-100 H BICARBONATE TOTAL HCO3 (test code = HCO3) 20.0 mmol/L 22.0-26.0 L BASE EXCESS (test code = USMAN) -4.5 mmol/L -3.0-3.0 L ABG O2 SATURATION (test code = SATA) 98 % 90-100 N FIO2 (test code = FIO2A) 40 % (calc) 21-100 N ABG VENT MODE (test code = MODEA) Nasal Cannula Descript Vent Mode ABG SITE (test code = SITEA) Right Radial ARTKIT DESCRIPTION MODIFIED MICHELLE'S (test code = MODALL) Yes Circ.CHK POSITIVE PaO2/[id number] 11:59:00* Test Item Value Reference Range Interpretation Comme [facility] PaO2/FiO2 (test code = [id number]) 307.5 mm/Hg See_Comment [Automated mess age] The system which generated this result transmitted reference range: 200. The reference range was not used to interpret this result as normal/abnormal. GLUCOSE BEDSIDE [id number] 08:28:00* Test Item Value Reference Range Interpretation Comme [facility] GLUCOSE BEDSIDE TESTING (zaki t code = GLUBED) 119 mg/dL 70-110 H - XR CHEST 1 [id number] 07:31:00 [facility] 1955 Sex: M Name: IRA RAYA [facility] : 1955 Age/S: 65 / M [id number] Unit #: [id number] Loc: [place] [address] Phys: Alex Davis MD Acct: [id number] Dis Date: Status: ADM IN PHONE #:[phone] Exam Date: 04/10/202146 FAX #: Reason: covid EXAMS: CPT: [id number] XR CHEST 1 V 65951 Fluoro Time: DAP (Gy m2): Air Kerma (mGy): EXAM: - XR CHEST 1 V INDICATION: covid T18 TECHNIQUE:Frontal view of the chest. FINDINGS: Bilateral opacities appear slightly decreased since 04/06/2021.Unchanged left central line. Cardiomediastinal silhouette and osseous structures appear unremarkable. No pleural effusion appreciated. IMPRESSION: Slightly decreased opacities. at 0731 Reported and signed by: Juanito Acevedo M.D. CC: Mandy Devlin MD; Alex Davis MD PAGE 1 Signed Report Name: IRA RAYA [place] : [birth year]Age/S: 65 / M [id number] Unit #: [id number] Loc: [place] [address] Phys: Alex Davis MD Acct: [id number] Dis Date: Status: ADM IN PHONE #: [phone] Exam Date: 04/10/202146 FAX #: Reason: covid EXAMS: CPT: [id number] XR CHEST 1 V 99671 Fluoro Time: DAP (Gy m2): Air Kerma (mGy): (Continued) Technologist: Marjorie Villavicencio, RT(R)(CT) Trnscb Date/Time: 04/10/2021 (730) [email or web address] Orig Print D/T: S: 04/10/2021 (0734) PAGE 2 Signed ReportGLUCOSE BEDSIDE [id number] 21:46:00* Test Item Value Reference Range Interpretation Comme nts GLUCOSE BEDSIDE TESTING (zaki t code = GLUBED) 116 mg/dL 70-110 H GLUCOSE BEDSIDE [id number] 13:59:00* Test Item Value Reference Range Interpretation Comme nts GLUCOSE BEDSIDE TESTING (zaki t code = GLUBED) 108 mg/dL 70-110 N BASIC METABOLIC [id number] 06:00:00* Test Item Value Reference Range Interpretation Comme nts SODIUM (test code = NA) 137 mmol/L 134-147 N POTASSIUM (test code = K) 4.3 mmol/L 3.4-5.0 N CHLORIDE (test code = CL) 102 mmol/L 100-108 N CARBON DIOXIDE (test code = CO2) 22 mmol/L 21-32 N ANION GAP (test code = GAP) 13.0 GAP calc 4.0-15.0 N GLUCOSE (test code = GLU) 136 MG/DL 70-110 H BLOOD UREA NITROGEN (test co de = BUN) 54 MG/DL 7-18 H GLOMERULAR FILTRATION RATE (test code = GFR) 8 estGFR >60 L CREATININE (test code = CREAT) 9.0 MG/DL 0.8-1.3 H CALCIUM (test code = CA) 9.8 MG/DL 8.5-10.1 N [id number] 06:00:00* Test Item Value Reference Range Interpretation Comme nts VANCOMYCIN (test code = VANCO) 17.8 mcG/ML 5-40 N C REACTIVE [id number] 05:59:00* Test Item Value Reference Range Interpretation Comme nts C REACTIVE PROTEIN (test cod e = CRP) 2.690 MG/DL 0.000-0.3 H CBC W/AUTO [id number] 05:37:00* Test Item Value Reference Range Interpretation Comme nts WHITE BLOOD CELL (test code = WBC) 20.8 K/mm3 3.5-11.0 H RED BLOOD CELL (test code = RBC) 5.20 M/mm3 4.70-6.10 N HEMOGLOBIN (test code = HGB) 12.9 G/DL 12.3-15.9 N HEMATOCRIT (test code = HCT) 44.2 % 35.8-46.7 N MEAN CELL VOLUME (test code = MCV) 85.0 Fl 86.3-98.9 L MEAN CELL HGB (test code = MCH) 24.8 pg 28.9-34.4 L MEAN CELL HGB CONCETRATION (test code = MCHC) 29.2 G/DL 32.1-34.5 L RED CELL DISTRIBUTION WIDTH (test code = RDW) 19.9 SD 11.5-14.5 H PLATELET COUNT (test code = PLT) 240 K/mm3 150-450 N MEAN PLATELET VOLUME (test c ode = MPV) 11.20 fL 7.0-9.6 H NEUTROPHIL % (test code = NT%) 90.0 % 40-76 H IMMATURE GRANULOCYTE % (test code = IG%) 1.6 % 0.0-5.0 N LYMPHOCYTE % (test code = LY%) 3.1 % 20.5-51.1 L MONOCYTE % (test code = MO%) 5.1 % 1.7-9.3 N EOSINOPHIL % (test code = EO%) 0.0 % 0.0-6.0 N BASOPHIL % (test code = BA%) 0.2 % 0.0-2.0 N NUCLEATED RBC % (test code = NRBC%) 1.0 /100WBC% 0.0-1.0 N NEUTROPHIL # (test code = NT#) 18.7 K/mm3 1.8-7.6 H IMMATURE GRANULOCYTE # (test code = IG#) 0.34 x10 3/uL 0.00-0.03 H LYMPHOCYTE # (test code = LY#) 0.7 K/mm3 0.6-3.0 N MONOCYTE # (test code = MO#) 1.1 K/mm3 0.2-1.5 N EOSINOPHIL # (test code = EO#) 0.0 K/mm3 0.0-0.4 N BASOPHIL # (test code = BA#) 0.0 K/mm3 0.0-0.2 N NUCLEATED RBC # (test code = NRBC#) 0.2 K/mm3 0.00-0.01 H MANUAL DIFF REQUIRED (test c ode = MDIFF) NO DIFF/SCN CRITERIA GLUCOSE BEDSIDE [id number] 20:39:00* Test Item Value Reference Range Interpretation Comme nts GLUCOSE BEDSIDE TESTING (zaki t code = GLUBED) 82 mg/dL 70-110 N GLUCOSE BEDSIDE [id number] 17:25:00* Test Item Value Reference Range Interpretation Comme nts GLUCOSE BEDSIDE TESTING (zaki t code = GLUBED) 81 mg/dL 70-110 N GLUCOSE BEDSIDE [id number] 11:56:00* Test Item Value Reference Range Interpretation Comme nts GLUCOSE BEDSIDE TESTING (zaki t code = GLUBED) 80 mg/dL 70-110 N GLUCOSE BEDSIDE [id number] 08:20:00* Test Item Value Reference Range Interpretation Comme nts GLUCOSE BEDSIDE TESTING (zaki t code = GLUBED) 114 mg/dL 70-110 H CBC W/AUTO [id number] 06:16:00* Test Item Value Reference Range Interpretation Comme nts WHITE BLOOD CELL (test code = WBC) 18.4 K/mm3 3.5-11.0 H RED BLOOD CELL (test code = RBC) 5.17 M/mm3 4.70-6.10 N HEMOGLOBIN (test code = HGB) 12.8 G/DL 12.3-15.9 N HEMATOCRIT (test code = HCT) 43.7 % 35.8-46.7 N MEAN CELL VOLUME (test code = MCV) 84.5 Fl 86.3-98.9 L MEAN CELL HGB (test code = MCH) 24.8 pg 28.9-34.4 L MEAN CELL HGB CONCETRATION (test code = MCHC) 29.3 G/DL 32.1-34.5 L RED CELL DISTRIBUTION WIDTH (test code = RDW) 18.6 SD 11.5-14.5 H PLATELET COUNT (test code = PLT) 183 K/mm3 150-450 N MEAN PLATELET VOLUME (test code = MPV) 11.90 fL 7.0-9.6 H NEUTROPHIL % (test code = NT%) 92.1 % 40-76 H IMMATURE GRANULOCYTE % (test code = IG%) 0.8 % 0.0-5.0 N LYMPHOCYTE % (test code = LY%) 3.5 % 20.5-51.1 L MONOCYTE % (test code = MO%) 3.4 % 1.7-9.3 N EOSINOPHIL % (test code = EO%) 0.0 % 0.0-6.0 N BASOPHIL % (test code = BA%) 0.2 % 0.0-2.0 N NUCLEATED RBC % (test code = NRBC%) 0.2 /100WBC% 0.0-1.0 N NEUTROPHIL # (test code = NT#) 16.9 K/mm3 1.8-7.6 H IMMATURE GRANULOCYTE # (test code = IG#) 0.15 x10 3/uL 0.00-0.03 H LYMPHOCYTE # (test code = LY#) 0.7 K/mm3 0.6-3.0 N MONOCYTE # (test code = MO#) 0.6 K/mm3 0.2-1.5 N EOSINOPHIL # (test code = EO#) 0.0 K/mm3 0.0-0.4 N BASOPHIL # (test code = BA#) 0.0 K/mm3 0.0-0.2 N NUCLEATED RBC # (test code = NRBC#) 0.0 K/mm3 0.00-0.01 N MANUAL DIFF REQUIRED (test code = MDIFF) NO DIFF/SCN CRITERIA SLIDE REVIEW CONSISTANT WITH AUTO DIFFERENTIAL. AB HEPATITIS B [id number] 06:11:00* Test Item Value Reference Range Interpretation Comme nts AB HEPATITIS B SURFACE (test code = HBSAB) <3.1 mIU/mL See_Comment A Status of Immuni ty Anti-HBs Level Inconsi stent with Immunity 0.0 - 9.9Consistent with Immunity >9.9 [Automated message] The system which generated this result transmitted reference range: Immunity>9.9. The reference range was not used to interpret this result as normal/abnormal. AG HEPATITIS B [id number] 06:11:00* Test Item Value Reference Range Interpretation Comme nts AG HEPATITIS B SURFACE (test code = HBSAG) NON REACTIVE INDEX NonReactive AB HEPATITIS B [id number] 06:11:00* Test Item Value Reference Range Interpretation Comme nts AB HEPATITIS B CORE (test code = HBCAB) Negative Negative Performed At : [facility] [address] [id number] Sulaiman Navas MD Ph:[phone] COMPREHENSIVE METABOLIC [id number] 05:12:00* Test Item Value Reference Range Interpretation Comme nts SODIUM (test code = NA) 139 mmol/L 134-147 N POTASSIUM (test code = K) 4.2 mmol/L 3.4-5.0 N CHLORIDE (test code = CL) 103 mmol/L 100-108 N CARBON DIOXIDE (test code = CO2) 27 mmol/L 21-32 N ANION GAP (test code = GAP) 9.0 GAP calc 4.0-15.0 N GLUCOSE (test code = GLU) 123 MG/DL 70-110 H BLOOD UREA NITROGEN (test co de = BUN) 38 MG/DL 7-18 H GLOMERULAR FILTRATION RATE ( test code = GFR) 10 estGFR >60 L CREATININE (test code = CREAT) 7.2 MG/DL 0.8-1.3 H TOTAL PROTEIN (test code = PROT) 7.0 G/DL 6.4-8.2 N ALBUMIN (test code = ALB) 3.2 G/DL 3.4-5.0 L GLOBULIN (test code = GLOB) 3.8 GM/dL ALBUMIN/GLOBULIN RATIO (test code = A/G) 0.8 RATIO 1.2-2.2 L CALCIUM (test code = CA) 9.6 MG/DL 8.5-10.1 N BILIRUBIN TOTAL (test code = BILT) 1.00 MG/DL 0.2-1.2 N SGOT/AST (test code = AST) 88 Unit/L 15-37 H SGPT/ALT (test code = ALT) 155 Unit/L 12-78 H ALKALINE PHOSPHATASE TOTAL ( test code = ALKP) 147 Unit/L 50-136 H AG HEPATITIS B [id number] 03:58:00* Test Item Value Reference Range Interpretation Comme nts AG HEPATITIS B SURFACE (test code = HBSAG) NON REACTIVE INDEX NonReactive - CT HEAD/BRAIN W/O [id number] 22:22:00 [facility] 1955 Sex: M Name: IRA RAYA [facility] : 1955 Age/S: 65 / M [id number] Unit #: [id number] Loc: [place] [address] Phys: Rome Tyler MD Acct: [id number] Dis Date: Status: ADM IN PHONE #: [phone] Exam Date: 04/07/20212208 FAX #: Reason: ams EXAMS: CPT: [id number] CT HEAD/BRAIN W/O CONT 92359 Location: H3 CT head, 04/07/21 COMPARISON EXAMS:None of the plain TECHNIQUE: CT examination of the brain was performed without contrast on a helical scanner. Scanning conducted from skull base to vertex in the axial plane acquiring contiguous 5mm slice thickness . The examination was performed on a updated helical CT scanner utilizing low-dose radiation technique. Automatic exposure control timing was utilized to minimize radiation dose. CLINICAL HISTORY: Alteration in mental status in this 65 year-old patient FINDINGS: No positive mass-effect, midline shift, extra-axial fluid collections or intracranial hemorrhages seen. In particular, no subarachnoid hemorrhage is identified. No intra or extra-axial masses. Bone windows unremarkable. No significant sinus disease is noted. No acute territorial infarction is seen. There is atrophy age appropriate. No hydrocephalus or compromise of the basilar cisterns are IMPRESSION: No acute finding at 2222 Reported and signed by: Mikki Leonard M.D. CC: Rome Tyler MD; Mandy Devlin MD Technologist:Marjorie Villavicencio, RT(R)(CT) CTDI: DLP: TrnscbDate/Time: 04/07/2021 (2221) [email or web address] Orig Print D/T: S: 04/07/2021 (2224) PAGE 1 Signed ReportGLUCOSE BEDSIDE [id number] 20:52:00* Test Item Value Reference Range Interpretation Comme nts GLUCOSE BEDSIDE TESTING (zaki t code = GLUBED) 128 mg/dL 70-110 H GLUCOSE BEDSIDE [id number] 20:15:00* Test Item Value Reference Range Interpretation Comme nts GLUCOSE BEDSIDE TESTING (zaki t code = GLUBED) 103 mg/dL 70-110 N GLUCOSE BEDSIDE [id number] 16:40:00* Test Item Value Reference Range Interpretation Comme nts GLUCOSE BEDSIDE TESTING (zaki t code = GLUBED) 136 mg/dL 70-110 H ARTERIAL BLOOD [id number] 16:39:00* Test Item Value Reference Range Interpretation Comme nts ARTERIAL BLOOD GAS PH (test code = PHA) 7.35 pH units 7.35-7.45 N ARTERIAL BLOOD GAS PCO2 (test code = PCO2A) 43 mmHg 35-45 N ARTERIAL BLOOD GAS PO2 (test code = PO2A) 101 mmHg 80-100 H BICARBONATE TOTAL HCO3 (test code = HCO3) 22.9 mmol/L 22.0-26.0 N BASE EXCESS (test code = USMAN) -2.7 mmol/L -3.0-3.0 N ABG O2 SATURATION (test code = SATA) 97 % 90-100 N FIO2 (test code = FIO2A) 50 % (calc) 21-100 N ABG VENT MODE (test code = MODEA) Nasal Cannula Descript Vent Mode ABG SITE (test code = SITEA) Right Radial ARTKIT DESCRIPTION MODIFIED MICHELLE'S (test code = MODALL) Yes Circ.CHK POSITIVE PaO2/[id number] 16:39:00* Test Item Value Reference Range Interpretation Comme nts PaO2/FiO2 (test code = [id number]) 202.0 mm/Hg See_Comment [Automated mess age] The system which generated this result transmitted reference range: 200. The reference range was not used to interpret this result as normal/abnormal. GLUCOSE BEDSIDE [id number] 14:50:00* Test Item Value Reference Range Interpretation Comme nts GLUCOSE BEDSIDE TESTING (zaki t code = GLUBED) 138 mg/dL 70-110 H [id number] 10:56:00* Test Item Value Reference Range Interpretation Comme nts FERRITIN (test code = VANESSA) 1079.2 ng/mL 23.9-336.2 H [id number] 10:56:00* Test Item Value Reference Range Interpretation Comme nts FERRITIN (test code = VANESSA) 1079.2 ng/mL 23.9-336.2 H GLUCOSE BEDSIDE [id number] 08:30:00* Test Item Value Reference Range Interpretation Comme nts GLUCOSE BEDSIDE TESTING (zaki t code = GLUBED) 123 mg/dL 70-110 H [id number] 07:29:00* Test Item Value Reference Range Interpretation Comme nts PHOSPHOROUS (test code = PHOS) 3.9 MG/DL 2.5-4.9 N LACTIC DEHYDROGENASE(LDH)2021-04-07 07:29:00* Test Item Value Reference Range Interpretation Comme nts LACTIC DEHYDROGENASE(LDH) (t est code = LDH) 170 Unit/L 87-241 N [id number] 07:29:00* Test Item Value Reference Range Interpretation Comme nts MAGNESIUM (test code = MAG) 2.4 MG/DL 1.8-2.4 N THYROID STIMULATING [id number] 07:29:00* Test Item Value Reference Range Interpretation Comme nts THYROID STIMULATING HORMONE (test code = TSH) 0.605 mcIU/ML 0.340-4.820 N C REACTIVE [id number] 07:27:00* Test Item Value Reference Range Interpretation Comme nts C REACTIVE PROTEIN (test cod e = CRP) 5.920 MG/DL 0.000-0.3 H [id number] 06:48:00* Test Item Value Reference Range Interpretation Comme nts D-DIMER (test code = DDIMER) 775 ng/mLFEU 215-500 HH THROMBOSIS AND/O R PULMONARY EMBOLISM AND THE CLINICAL CUT-OFF VALUE FOR EXCLUSION (500 ng/mL FEU) OF THESE CONDITIONSIS VALIDATED BY THE RN IMMUNOLOGY OF THE METHOD. A NEGATIVE D-DIMER RESULT WHEN COMBINED WITH A CLINICALASSESSMENT OF LOW PRETEST PROBABILITY HAS BEEN SHOWN TO HAVEA HIGH NEGATIVE PREDICTIVE VALUE OF DVT OR PE. D-DIMER VALUES >500 ng/mL FEU ARE NOT DIAGNOSTIC FOR DVT, PEor DIC WITHOUT OTHER CONFIRMATORY TESTS AND APPROPRIATECLINICAL EUALUATIONS. [id number] 04:09:00* Test Item Value Reference Range Interpretation Comme [facility] TROPONIN-I (test code = TROPI) 0.032 NG/ML 0.000-0.045 N Negative: </= 0. 045 Positive: >/= 0.046 Correlation with serial results, other cardiac markers, and clinical findings is necessary to determine the clinical significance of this result. Quantitative results using different methodologies should not be compared to one another as numerical results may varyby method. Completed by Nursing: NO- CTA CHEST FOR [id number] 02:36:00 [facility] 1955 Sex: M Name: IRA RAYA [facility] Rad[place] : 1955 Age/S: 65 / M [address] Unit #: [id number] Loc: [place] [address] Phys: Mandy Devlin MD Acct: [id number] Dis Date: Status: ADM IN PHONE #: [phone] Exam Date: 04/07/2021218 FAX #: Reason: COVID 19, HYPOXIA, EVAL FOR PE EXAMS: CPT: [id number] [place] [id number] Examination: Chest CT with contrast Location code: S17 Comparison: None Technique: Thin section axial contiguous images were obtained through the chest followed by 3-D multiplanar reformats, optimized in the pulmonary arterial phase. All CT scans are performed using radiation dose reduction technique. Technical factors are evaluated and adjusted to insure appropriate moderation of exposure. Automated dose management technology is applied to adjust the radiation doseto minimize exposure while achieving a diagnostic quality image. Discussion: Clinical history is remarkable for Covid 19, hypoxia. The thyroid gland, trachea and major bronchi are within normal limits. There are no pathologically enlarged lymph nodes present within the mediastinum or axilla. Four-chamber cardiac enlargement. No evidence of pulmonary embolus. There is patchy geographic groundglassinfiltrate bilaterally suggesting Covid pneumonia. The pulmonary parenchyma is unremarkable. The pul monary vasculature is of normal caliber. There is no evidence to suggest the presence of pulmonary embolus. Findings are confirmed with 3-D CTA imaging. The visualized upper abdominal organs are within normal limits. Multiple cystic structures are present throughout the kidneys. There are no lytic or blastic lesions present within the osseous structures. Impression: 1. Patchy multifocal groundglass infiltrates suggest Covid pneumonia. 2. Polycystic change of either kidney. at 0236 Reported and signed by: Ira Rosen M.D. PAGE 1 Signed Report (CONTINUED) Name: IRA RAYA [facility] : 1955 Age/S: 65 / M [address] Unit #: [id number] Loc: [place] [address] Phys: Mandy Devlin MD Acct: [id number] Dis Date: Status: ADM IN PHONE #: [phone] Exam Date: 04/07/2021218 FAX #: Reason: COVID 19, HYPOXIA, EVAL FOR PE EXAMS: CPT: [id number] [place] [address] (Continued) CC: Mandy Devlin MD; Karla HUNTER Technologist:Ira Oconnell, RT(R) CTDI: DLP: Trnscb Date/Time: 04/07/2021 (023) [email or web address] Orig Print D/T: S: 04/07/2021 (023) PAGE 2 Signed ReportTROPONIN-I 2021-04-07 01:08:00* Test Item Value Reference Range Interpretation Comme nts TROPONIN-I (test code = TROPI) 0.025 NG/ML 0.000-0.045 N Negative: </= 0. 045 Positive: >/= 0.046 Correlation with serial results, other cardiac markers, and clinical findings is necessary to determine the clinical significance of this result. Quantitative results using different methodologies should not be compared to one another as numerical results may varyby method. Completed by Nursing: NOLACTIC [id number] 23:57:00* Test Item Value Reference Range Interpretation Comme nts LACTIC ACID (test code = LACT) 1.4 mmol/L 0.4-2.0 N - XR CHEST 1 [id number] 22:54:00 [facility] 1955 Sex: M Name: IRA RAYA [place] : 1955 Age/S: 65 / M [address] Unit #: [id number] Loc: [place] [address] Phys: Skip Rollins MD Acct: [id number] Dis Date: Status: REG ER PHONE #: [phone] Exam Date: 04/06/20212247 FAX #: Reason: s/p left IJ CVC placement EXAMS: CPT: [id number] XR CHEST 1 V 62611 Fluoro Time: DAP (Gy m2): Air Kerma (mGy): AFTER HOURS SERVICE ON: 04/06/2021 10:54 PM AP Portable Chest Location Code M12 HISTORY: s/p left IJ CVC placement FINDINGS: There is a left IJ line projecting over the proximal SVC. There is no pneumothorax. There are bilateral multifocal groundglass infiltrates which are more pronounced in the right lung base. Cardiac silhouette is mildly enlarged. There is no pneumothorax or pleural effusion. IMPRESSION: New left IJ line in place. No pneumothorax. Bilateral infiltrates without significant change. at 6123 Reported and signed by: Beto Cassidy M.D. CC: PAGE 1 Signed Report Name: IRA RAYA Galva : 1955 Age/S: 65 / M [address] Unit #: [id number] Loc: [place] [address] Phys: Skip Rollins MD Acct: [id number] DisDate: Status: REG ER PHONE #: [phone] Exam Date: 04/06/20212247 FAX #: Reason: s/p left IJ CVC placement EXAMS: CPT: [id number] XR CHEST 1 V 55545 Fluoro Time: DAP (Gy m2): Air Kerma (mGy): (Continued) Technologist: Sloane Bass RT(R)(CT) Trnscb Date/Time: 04/06/2021 (2254) t.[email or web address] OrigPrint D/T: S: 04/06/2021 (9856) PAGE 2 Signed ReportCoronavirus 2019 nCoV [id number] 22:28:00* Test Item Value Reference Range Interpretation Comme nts Coronavirus 2018 nCoV Bedsid e (test code = [id number]) Positive Negative CBC W/AUTO [id number] 20:19:00* Test Item Value Reference Range Interpretation Comme nts WHITE BLOOD CELL (test code = WBC) 10.6 K/mm3 3.5-11.0 N RED BLOOD CELL (test code = RBC) 5.89 M/mm3 4.70-6.10 N HEMOGLOBIN (test code = HGB) 14.7 G/DL 12.3-15.9 N HEMATOCRIT (test code = HCT) 50.8 % 35.8-46.7 H MEAN CELL VOLUME (test code = MCV) 86.2 Fl 86.3-98.9 L MEAN CELL HGB (test code = MCH) 25.0 pg 28.9-34.4 L MEAN CELL HGB CONCETRATION (test code = MCHC) 28.9 G/DL 32.1-34.5 L RED CELL DISTRIBUTION WIDTH (test code = RDW) 19.7 SD 11.5-14.5 H PLATELET COUNT (test code = PLT) 195 K/mm3 150-450 N MEAN PLATELET VOLUME (test c ode = MPV) 10.80 fL 7.0-9.6 H NEUTROPHIL % (test code = NT%) 76.3 % 40-76 H IMMATURE GRANULOCYTE % (test code = IG%) 1.1 % 0.0-5.0 N LYMPHOCYTE % (test code = LY%) 9.6 % 20.5-51.1 L MONOCYTE % (test code = MO%) 11.1 % 1.7-9.3 H EOSINOPHIL % (test code = EO%) 1.2 % 0.0-6.0 N BASOPHIL % (test code = BA%) 0.7 % 0.0-2.0 N NUCLEATED RBC % (test code = NRBC%) 0.2 /100WBC% 0.0-1.0 N NEUTROPHIL # (test code = NT#) 8.1 K/mm3 1.8-7.6 H IMMATURE GRANULOCYTE # (test code = IG#) 0.12 x10 3/uL 0.00-0.03 H LYMPHOCYTE # (test code = LY#) 1.0 K/mm3 0.6-3.0 N MONOCYTE # (test code = MO#) 1.2 K/mm3 0.2-1.5 N EOSINOPHIL # (test code = EO#) 0.1 K/mm3 0.0-0.4 N BASOPHIL # (test code = BA#) 0.1 K/mm3 0.0-0.2 N NUCLEATED RBC # (test code = NRBC#) 0.0 K/mm3 0.00-0.01 N MANUAL DIFF REQUIRED (test c ode = MDIFF) NO DIFF/SCN CRITERIA RBC [id number] 20:19:00* Test Item Value Reference Range Interpretation Comme nts HYPOCHROMIA (test code = HYPO) 1+ ON SCAN NONE PLATELET ESTIMATE (test code = PLTEST) ADEQUATE THOUSAND ADEQUATE PLATELET MORPHOLOGY (test code = PLTMORPH) NORMAL - XR CHEST 1 [id number] 20:11:00 [facility] 1955 Sex: M Name: IRA RAYA [facility] : 1955 Age/S: 65 / M [address] Unit #: [id number] Loc: [place] [address] Phys: Erlin George MD Acct: [id number] Dis Date: Status: REG ER PHONE #:[phone] Exam Date: 04/06/2021 193 FAX #: Reason: weakness EXAMS: CPT: [id number] XR CHEST 1 V 41308 Fluoro Time: DAP (Gy m2): Air Kerma (mGy): Examination: One view chest x- ray Location code:H60 Comparison: None Discussion: Clinical history is remarkable for generalized weakness. Heart is normal in size. Bilateral pulmonary infiltrates are identified consistent with bilateral pneumonia. No effusions are noted. There is no evidence for pneumothorax. Impression: 1. Bilateral pulmonary infiltrates consistent with bilateral pneumonia. at 2010 Reported and signed by: Marco A Vasquez M.D. CC: rElin George MD; Daryl Benoit NPPAGE 1 Signed Report Name: RIA RAYA [facility] : 1955 Age/S: 65 / M [address] Unit #: [id number] Loc: [place] [address] Phys: Erlin George MD Acct: [id number] Dis Date: Status: REG ER PHONE #: [phone] Exam Date: 04/06/20211932 FAX #: Reason: weakness EXAMS: CPT: [id number] XR CHEST 1 V 02621 Fluoro Time: DAP (Gy m2): Air Kerma (mGy): (Continued) Technologist: RT Haleigh(R) Trnscb Date/Time: 04/06/2021 (2010) [email or web address] Orig Print D/T: S: 04/06/2021 (2013) PAGE 2 Signed ReportBASIC METABOLIC [id number] 20:10:00* Test Item Value Reference Range Interpretation Comme nts SODIUM (test code = NA) 134 mmol/L 134-147 N POTASSIUM (test code = K) 3.9 mmol/L 3.4-5.0 N CHLORIDE (test code = CL) 99 mmol/L 100-108 L CARBON DIOXIDE (test code = CO2) 21 mmol/L 21-32 N ANION GAP (test code = GAP) 14.0 GAP calc 4.0-15.0 N GLUCOSE (test code = GLU) 94 MG/DL 70-110 N BLOOD UREA NITROGEN (test co de = BUN) 49 MG/DL 7-18 H GLOMERULAR FILTRATION RATE (test code = GFR) 7 estGFR >60 L CREATININE (test code = CREAT) 9.2 MG/DL 0.8-1.3 H CALCIUM (test code = CA) 10.4 MG/DL 8.5-10.1 H Completed by Nursing: [id number] 20:10:00* Test Item Value Reference Range Interpretation Comme nts TROPONIN-I (test code = TROPI) 0.027 NG/ML 0.000-0.045 N Negative: </= 0. 045 Positive: >/= 0.046 Correlation with serial results, other cardiac markers, and clinical findings is necessary to determine the clinical significance of this result. Quantitative results using different methodologies should not be compared to one another as numerical results may varyby method. Completed by Nursing: NOCT Neck Soft Tissue w/ + w/o [id number] 09:06:44 Patient: IRA RAYA Date/Time05/11/2019 08:27 CDTReason for ExamSIALOADENTITISReportEXAMINATION: CT NECK WITH AND WITHOUT CONTRASTCOMPARISON: NoneCLINICAL INFORMATION: SialoadenitisTECHNIQUE: Axial images of the neck were obtained before and after the intravenous administration of 100 cc Omnipaque 300 contrast material. The images were reformatted in the coronal and sagittal planes. ALARA techniques utilized.FINDINGS:No masses.No organized fluid collections.No lymphadenopathy.No enhancing abnormalities.Bilateral parotid and submandibular glands are unremarkable. Subcentimeter hypodensities within the right thyroid lobe. Left thyroid lobe is unremarkable.Vasculature is unremarkable. Dominant right internal jugular vein. Oropharynx is patent. Trachea is patent. Visualized lung apices are clear.Paranasal sinuses are clear. Mastoid air cells are well aerated. Punctate chronic calcification of the left globe. Globes are otherwise unremarkable.Osseous structures areintact. No lytic or blastic osseous lesions.Soft tissues are unremarkable.IMPRESSION:Unremarkable pre/contrast- enhanced CT neck soft tissues. Final Dictated by: MD Joe, SamerDictated DT/TM: 05/11/2019 8:56 amSigned by: MD Joe, SamerSigned (Electronic Signature): 05/11/2019 9:06 amBlood Urea [id number] 09:09:14 * Test Item Value Reference Range Interpretation Comme nts BUN (test code = BUN) 16 mg/dL 7-18 [id number] 09:09:14* Test Item Value Reference Range Interpretation Comme nts Creatinine Level (test code = Creatinine Level) 0.9 mg/dL 0.7-1.3 eGFR AA (test code = eGFR AA) >60 mL/min/1.73 m2 N eGFR Non-AA (test code = eGFR Non-AA) >60 mL/min/1.73 m2 N [id number] 09:09:14* Test Item Value Reference Range Interpretation Comme nts Creatinine Level (test code = Creatinine Level) 0.9 mg/dL 0.7-1.3 eGFR AA (test code = eGFR AA) >60 mL/min/1.73 m2 N eGFR Non-AA (test code = eGFR Non-AA) >60 mL/min/1.73 m2 N [id number] 09:09:14* Test Item Value Reference Range Interpretation Comme nts Creatinine Level (test code = Creatinine Level) 0.9 mg/dL 0.7-1.3 eGFR AA (test code = eGFR AA) >60 mL/min/1.73 m2 N eGFR Non-AA (test code = eGFR Non-AA) >60 mL/min/1.73 m2 N PATHOLOGY [id number] 11:52:00- TISSUE CONSULTATION REPORTBAPTBAYLOR SCOTT [facility] CLUBDEPARTMENT OF PATHOLOGYP.O[address] [address] [facility] NATALYA MEDINA M.D.JOSEPH M. WEMPE, M.D.___ Pat ient: IRA RAYA 03/11/1956 61 oom:Hosp#: [id number] Ordering Physician: Dominick BENOIT Rec.: 10/27/2017Date of Proc.: 10/27/2017Lab No.: [id number] PRE-OPERATIVE DIAGNOSIS:-FINAL ANATOMIC DIAGNOSIS:SOFT TISSUE MASS, RIGHT MEDIAL FOOT, EXCISION:- FIBROMATOSIS; NEGATIVE FOR MALIGNANCYMICROSCOPIC EXAMINATION:- A single HGROSS APPEARANCE:- The specimen labeled "right foot soft tissue mass." The nodularrubbery pink and yellow ovoid mass is 1.7 x 1.8 x 1.1 cm. Thespecimen is inked black along its surface, serially sectioned andsubmitted entirely in a single cassette.PATHOLOGIST: Carlitos Argueta Electronically Signed: 10/28/2017 Consult Notes Date/Time Note Provider Source 2023-03-18 06:02:00 Associated Order(s): CONSULT ADULT PHYSICAL THERAPY Duplicate consult Karol Childress PT [facility] 2023-03-18 06:01:00 Associated Order(s): CONSULT ADULT OCCUPATIONAL THERAPY 03/18/2023 0601 OCCUPATIONAL THERAPY NOTE: Duplicate consult. ROSS Ortega, OTD, C/NDT Isis Brown OT [facility] 2023-03-15 09:53:00 Associated Order(s): CONSULT ADULT OCCUPATIONAL THERAPY OT GENERAL EVALUATION Consult received via [employer], EMR reviewed and evaluation completed 03/15/23. Patient referred to occupational therapy for evaluation and treatment secondary to perinephric hematoma. Patient agreeable to participate in occupational therapy. Pt seen in conjunction with Chante Britton DPT secondary to medical complexity and anticipated limited activity tolerance. Only billing for OT services. Discharge Recommendations: Therapy Needs and Potential:- Patient would benefit from continued skilled occupational therapy services to address: Decline in basic activities of daily living, Decline in instrumental activities of daily living, Decreased strength, Decreased range of motion, Decreased endurance, and Decreased coordination - Patient demonstrates good potential to improve and meet therapy goals with further skilled occupational therapy services. - Patient appears motivated to improve their B/IADLs and return to their previous level of function. - Patient demonstrates ability to tolerate at least 30-60 minutes of active participation in occupational therapy. - Patient exhibits limited activity tolerance. - Patient able to follow commands: 1-step Yes, Multi-step NT, Inconsistencies Yes Challenges to Home Transition:- Requires physical assistance for BADLS - Requires physical assistance for IADLS - Requires supervision or verbal cues for BADLS - Requires supervision or verbal cues for IADLS - Limited caregiver availability - Increased risk of falls Equipment Recommendations:Long handled planning assistant, Hospital bed, Low air loss mattress, Overhead trapeze, and Mechanical lift PLAN OF CARE: At least 2x/week Precautions: Weight bearing status: NA General: PPE Utilized: Gloves, Fall, high flow nasal cannula, arterial line, and catheter Bracing: N/A Current Occupational Performance and/or Treatment: AM-PAC 6 Clicks (Raw Score 0=Dependent, 24=Independent; Low function Raw Score 0= Dependent, 32=Independent): Raw Score - Daily Activity: 8 T-Scale Score - Daily Activity: 22.87 Feeding: Maximum Assistance, pt attempted to eat breakfast but could not maintain spoon in his hand to bring spoon to his face. Nursing assisted pt to complete task. Pt would potentially benefit from weighted utensils. LB Dressing: Maximum Assistance, pt unable to reach feet at baseline; pt lifted bilateral feet when cued to allow OT to don socks. Toileting Hygiene: Total Assistance, gómez catheter Functional Mobility: HOB elevated; supine<>sit attempted but pt unable to bring legs over to edge of bed when prompted and transfer considered unsafe at this time; rolling L<>R Total Assistance x2. Patient/caregiver educated on: ADL training (see above), AROM (educated pt on completing fist pumps to decrease edema x10 reps, 3x daily), Positioning (B UE elevated on pillows to decrease edema), Role of OT, and Safety awareness. Patient left semireclining in bed with call tolentino in reach. Please, see full evaluation below for more detail. OT EVALUATION: 67 year old male Admit date: 03/12/2023 Date of onset: 03/12/2023 Admit Diagnosis: Perinephric hematoma [S37.019A] OT Diagnosis: Impaired BADL independence, Impaired IADL independence, Weakness, Activity intolerance, Decreased endurance, and Decreased UE Function Dominant PMH: Past Medical History: Diagnosis Date Asthma Atrial fibrillation Crohn disease, with fistula Esophageal reflux ESRD (end stage renal disease) ESRD (end stage renal disease) on dialysis Gout Hypercholesteremia Hypertension PSH: Past Surgical History: Procedure Laterality Date APPENDECTOMY CHOLECYSTECTOMY COLONOSCOPY 2015 CUBITAL TUNNEL RELEASE Right 05/28/2020 Surgeon: Leann Regalado MD; Location: [facility] OR Location DISTAL HUMERUS ORIF (SHX) Left 1972 EXCISE ADRENAL GLAND Left 2007 FRACTURE SURGERY KNEE ARTHROSCOPY Left 1986 OPEN CARPAL TUNNEL RELEASE Right 05/28/2020 Surgeon: Leann Regalado MD; Location: [facility] OR [facility] [place] PRQ TRLUML CORONARY STENT W/ANGIO ONE ART/BRNC 2007 REMOVAL ANAL FISTULA,COMPLEX/MULTI 03/2015 PAIN: Denies pain before and after session. OCCUPATIONAL ROLES/HOME ENVIRONMENT: Home environment: Lives with spouse, 24/7 supervision/assistance is available, and Downstairs apartment. Bathroom access: Yes Bathroom setup: Shower Occupation(s): Retired Function prior to admission: Household ambulation and Independent with BADLs Suspected ischemic or hemorraghic stroke patient: No Equipment prior to admission: 4 wheeled walker, Shower chair PERFORMANCE SKILLS/FACTORS: Pt demonstrated unusual weakness after initiation of movement. Pt could grasp an item but would drop that item within ~15-20 seconds of attempting to manipulate item. UE Muscle Tone: bilateral WNL UE ROM: bilateral AROM WFL except R shoulder flexion ~90 degrees with AAROM secondary to torn rotator cuff UE Strength: PRANAV grasp 3+/5 Hand dominance: right Dexterity/Coordination: bilateral Impaired Endurance - Sitting: NT Standing: NT Sitting Balance - Static: NT Dynamic: NT Standing: Balance - Static NT Dynamic: NT Dizziness: No Skin Integrity: No breakdown noted and defer full skin assessment to nursing Sensation: Patient denies numbness and tinging. Oral Motor: WFL Communication: Able to verbalize needs Yes Other: slurred speech Vision: WFL Yes Other: glasses or contacts Hearing: good; no issues reported COGNITION: Orientation: person, place, date/time, and situation Follows Commands: 1-step Yes Multi-step Nt Inconsistencies No Safety Awareness/Judgment: Fair PROBLEM LIST: Decreased independence with ADL, Decreased functional ROM, and Decreased strength/endurance for functional activity REHAB POTENTIAL/PROGNOSIS: fair PATIENT/FAMILY GOALS: none stated TREATMENT/INTERVENTION PLAN: Patient/Caregiver Education, Equipment recommendations, Daily living activities, and Therapeutic exercises GOAL(S): By discharge, patient will increase independence in daily living skills as follows: 1 Patient will don/doff pullover shirt with minimal assistance. 2 Patient will don/doff socks with minimal assistance using Sock aide. 3 Patient will complete 1 grooming tasks with minimal assistance while sitting EOB. 4 Patient will demonstrate increased dynamic sitting by completing ADLs while sitting EOB without adverse reaction for 10 minutes. 5 Patient will increase endurance for functional activity as evidenced by ability to sustain 25 minutes of active participation. 6 Patient/caregiver will verbalize/demonstrate understanding/proficiency in the following home programs: Fall prevention and 7 Towel/dowel PATIENT-FAMILY TEACHING Patient provided with preferred teaching of verbal information and demonstration on ADL training (see above), AROM (educated pt on completing fist pumps to decrease edema x10 reps, 3x daily), Positioning (B UE elevated on pillows to decrease edema), Role of OT, and Safety awareness. Barriers to learning include physical limitations. Verbal instruction and Demonstration teaching provided. Individual verbalizes understanding of teaching provided. NOA YiR, MOT Total Timed Treatment Codes: 6 Min Total Treatment Time: 30 Min Patient Complexity Level High - An occupational therapy evaluation of high complexity was completed using the above tests and measures. The following information was obtained: An occupational profile and medical and therapy history, including review of medical and/or therapy records and extensive additional review of physical, cognitive, or psychosocial history related to current functional performance, Various standardized and non-standardized assessments were used to identify at least 5 or more performance deficits related to physical, cognitive, or psychosocial skills that result in activity limitations and/or participation restrictions, and Clinical decision-making is of high analytic complexity, which includes an analysis of the patient profile, analysis of data from comprehensive assessment(s), and consideration of multiple treatment options. Patient present with comorbidities that affect occupational performance. Significant modification of tasks or assistance (e.g., physical or verbal) with assessment(s) is necessary to enable patient to complete evaluation component. Gary Melvin OT [facility] 2023-03-15 09:52:00 Associated Order(s): CONSULT ADULT PHYSICAL THERAPY Patient agreeable to working with physical therapy. Patient met supine. Patient seen in collaboration with Occupational Therapy due to high complexity of his case. Patient seen with ROSS [place]. Patient will be billed for PT portion only. Recommend nursing staff utilize Mechanical Lift to safely assist patient with mobility out of the bed or chair. PHYSICAL THERAPY EVALUATION Consult received, chart reviewed and evaluation complete this date. Patient is referred to PT for evaluation and treatment. Patient is a 67 year old male who presents to hospital for Perinephric hematoma [S37.019A] . Hemorrhagic shock 2/2 left perinephric hemorrhage Supratherapeutic INR, improved Type II WA Afib (on Eliquis) CAD HTN Reported hx of Crohn's disease Leukocytosis Left perinephric hemorrhage ESRD on HD TTS Adrenal insufficiency Discharge Recommendations: Therapy Needs and Potential: Patient would benefit from continued physical therapy services to address: decline in bed mobility decline in transfers decline in gait and/or balance decreased strength decreased endurance decreased coordination Patient demonstrates good potential to improve and meet therapy goals with further physical therapy services. Patient appears motivated to improve their functional mobility and return to their previous level of function. Challenges to Home Transition: increased risk of falls decreased caregiver availability decreased safety awareness environmental barriers Equipment recommendations: hospital bed and mechanical lift Current Functional Status and/or Treatment: AM-PAC 6 Clicks (Raw Score 0=Dependent, 24=Independent; Low function Raw Score 0= Dependent, 32=Independent): Raw Score - Basic Mobility (Low Function): 14 T-Scale Score - Basic Mobility (Low Function): 22.01 Bed Mobility: Rolling: Total Assistance x 1-2 person Supine-sit: Total Assistance x 1-2 person Sit to supine: Total Assistance x 1 -2 person Attempted sitting on edge of bed , patient will attempt and gives out with movement and shakes. VITALS: PRE: 114/53 (72) SPO2 93% Hi flow @10 lpm HR 89 bpm POST: 102/50 (68) SPO2 94% Hi flow@ 10 lpm HR 80 bpm Transfers: defer due to weakness and unable at this time Ambulation: defer due to weakness and unable at this time Therapeutic exercise: patient educated in Adaptive equipment , Energy conservation, Fall prevention, General strengthening, Relaxation/breathing techniques, and Safety awareness., instructed patient in the following: ankle pumps, quad sets, glut sets, and patient/caregiver instructed to perform HEP 1-2 times per day, 10 repetitions. Provided bed positioning with pillows on both UE . Functional Outcome Measures: (Values within the past 12 hours) NT- unable at this time. After session, patient semi reclined in bed. Call button provided. Communicated with YOEL Davila PLAN OF CARE: While in the hospital, PT will follow patient at least 3 times per week,once or twice a day, per patient's tolerance and needs. See below for complete details. Admit Date: 03/12/2023 Hospital Diagnosis:Perinephric hematoma [S37.019A] PT Diagnosis: Difficulty walking, Weakness, Malaise/fatigue, Dyspnea, Abnormality of gait and balance, and Integument compromise Weight Bearing Precaution: WBAT General Precautions: PPE used:Gloves, General, Fall, Head of bed 30?,IV x3, oxygen: Nasal canula, High-flow nasal canula, telemetry and central arterial line. Bracing/Cast present or required:N/A PMH: Past Medical History: Diagnosis Date Asthma Atrial fibrillation Crohn disease, with fistula Esophageal reflux ESRD (end stage renal disease) ESRD (end stage renal disease) on dialysis Gout Hypercholesteremia Hypertension PSH: Past Surgical History: Procedure Laterality Date APPENDECTOMY CHOLECYSTECTOMY COLONOSCOPY 2015 CUBITAL TUNNEL RELEASE Right 05/28/2020 Surgeon: Leann Regalado MD; Location: [facility] DISTAL HUMERUS ORIF (SHX) Left 1972 EXCISE ADRENAL GLAND Left 2006 FRACTURE SURGERY KNEE ARTHROSCOPY Left 1985 OPEN CARPAL TUNNEL RELEASE Right 05/28/2020 Surgeon: Leann Regalado MD; Location: [facility] OR Location [place] PRQ TRLUML CORONARY STENT W/ANGIO ONE ART/BRNC 2007 REMOVAL ANAL FISTULA,COMPLEX/MULTI 03/2015 Prior Living Situation: lives with their spouse and in a apartmentno steps. DME: Rolling Walker, Four wheeled walker with seat Prior level of Mobility: house hold ambulation, ambulates with Rolling Walker, Four wheeled walker with seat Suspected ischemic or hemorraghic stroke:No Subjective: Reports feeling weak and shaky Patient/Family Goals: To go home. Patient/Family verbalizes understanding of condition: Yes PAIN: denies pain before and after session COMMUNICATION Primary Language: Jordanian Able to Verbalize needs: Yes Vision:glasses Hearing:good; no issues reported ORIENTATION/COGNITION: Oriented to: person, place, date/time, and situation Awake: Yes Alert: Yes Dizzy: No Follows Commands: Yes 1-Step Yes Multi-Step No Inconsistent: Yes NEUROLOGICAL Light Touch: within functional limits bilateral LE Heel to vazquez: impaired Tone: wnl BALANCE: Sitting: Static: NT Dynamic: NT Standing: Static: NT Dynamic: NT RANGE OF MOTION: within functional limits bilateral LE STRENGTH: 2-/5 (P-), bilateral LE ENDURANCE: Poor, High-flow nasal canula SKIN INTEGRITY: not intact, please see nurses notes for details. PROBLEM LIST: Decline in bed mobility, Decline in gait, Decline in transfers, Decreased strength, Decreased endurance, Decreased balance, Safety awareness deficits, Decreased Coordination, and Decreased Motor Planning ASSESSMENT: Patient is a 67 year old male seen secondary to the above listed diagnosis. Patient would benefit from continued PT to address the above listed deficits to maximize independence and safety with functional mobility. Rehabilitation Potential: fair Goals: The following goals are to maximize independence and safety with functional mobility to eventually return to prior living situation and prior functional status. Upon discharge, patient and/or family will demonstrate the followin. Rolling: Independent Supine-sit: Independent Sitting balance Excellent Sit to supine: Independent 2. Initiate out of bed and into chair using mechanical lift or steve steady Progress as tolerated sit-stand: Independent Stand to sit: Independent using Rolling Walker Stand pivot transfer: Independent 3. Independent with ambulation, Feet: 300 using least assistive device. 4. Demonstrate or verbalize understanding of home exercise program in order to continue with their rehab on their own. Treatment Plan: Gait training, Therapeutic exercise, Transfer training, Balance training, Bed mobility training, Equipment needs assessment, Safety education, patient/caregiver education, Pain management, and Neuromuscular Re-Education PATIENT EDUCATION: Patient provided with preferred teaching of verbal information and demonstration on role of PT, plan of care, DC plans. Shows readiness to learn. Verbal instruction and Demonstration teaching provided. Individual is able to read and verbalizes understanding of teaching provided and needs reinforcement of teaching. Total Time Tx Codes in Minutes: 23 min Total Treatment Time in Minutes: 35 min Cisco Britton PT, DPT [facility] Physical Therapy Rehabilitation Services Cisco Britton PT [facility] 2023-03-12 06:00:00 Associated Order(s): CONSULT UROLOGY UROLOGY CONSULTATION NOTE Requesting Physician: Steve Anand Jr., MD Date of Service: 03/12/2023 Reason for Consult: Left perinephric hematoma History of Present Illness Ira Raya, 67 year old male with PMH of ESRD, CAD, crohn's, adrenal insufficiency, HLD, HTN, DM2, hx PE, PCKD who presents as a transfer from [facility] in [facility] due to hemorrhagic shock from suspected left perinephric hematoma with INR >17 while on Warfarin. Urology consulted for further recommendations. CT Angiogram obtained overnight after discussion with MICU and IR, pending final read. Medications: Home Medications: Medications Prior to Admission Medication Sig Dispense Refill Last Dose TRAMADOL 50 mg tablet TAKE 1 TABLET BY MOUTH EVERY 8 HOURS NEEDED FOR PAIN 30 tablet 0 loperamide 2 mg capsule TAKE DIRECTED - AFTER EACH LOOSE STOOL ( DO NOT TAKE MORE THAN 8 CAPSULES A DAY) 180 capsule 0 midodrine 5 mg tablet Take 3 tablets by mouth in the morning and 3 tablets at noon and 3 tablets in the evening. Take 5 mg by mouth. 270 tablet 11 ALLOPURINOL 100 mg tablet Take 1 tablet by mouth once daily 30 tablet 0 metoprolol tartrate 50 mg tablet Take 1 tablet by mouth in the morning and 1 tablet in the evening. 30 tablet 5 gabapentin 300 mg capsule Take 1 capsule by mouth in the morning and 1 capsule at noon and 1 capsule in the evening. 90 capsule 5 Taking [DISCONTINUED] fludrocortisone 0.1 mg tablet Take 1 tablet by mouth in the morning. 90 tablet 1 Taking [DISCONTINUED] hydrocortisone 10 mg tablet Take 1 tablet by mouth in the morning and 1 tablet in the evening. Will take 4 pills a day on your sick day s 200 tablet 1 Taking VENTOLIN HFA 90 mcg/actuation inhaler INHALE 2 PUFFS BY MOUTH EVERY 6 HOURS NEEDED FOR WHEEZING FOR SHORTNESS OF BREATH 18 g 0 Taking famotidine 20 mg tablet Take 20 mg by mouth in the morning and 20 mg in the evening. Taking simvastatin 20 mg tablet TAKE 1 TABLET BY MOUTH AT BEDTIME 90 tablet 3 Taking Needle, Disp, 24 G 24 gauge x 1" Ndle Use as directed 2 Each 0 Taking cinacalcet 30 mg tablet Take 30 mg by mouth at bedtime. Taking apixaban 2.5 mg tablet Take 2.5 mg by mouth 2 (two) times daily. Taking docusate 100 mg capsule Take 100 mg by mouth 2 (two) times daily. Taking mesalamine 500 mg CR capsule Take 2,000 mg by mouth 2 (two) times daily. Taking omeprazole (PRILOSEC) 40 mg capsule Take 40 mg by mouth daily. Taking Hospital Medications: Current Facility-Administered Medications Medication Dose Route Frequency Last Rate Last Admin allopurinoL (ZYLOPRIM) tablet 100 mg 100 mg Oral DAILY cinacalcet (SENSIPAR) tablet 30 mg 30 mg Oral QHS famotidine (PEPCID AC) tablet 20 mg 20 mg Oral BID gabapentin (NEURONTIN) capsule 300 mg 300 mg Oral TID hydrocortisone sod succ (CORTEF) injection 50 mg 50 mg Intravenous Q6H 50 mg at 03/12/23 0638 mesalamine CR (PENTASA CR) capsule 2,000 mg 2,000 mg Oral BID NORepinephrine 16 mg in NS 250 mL infusion RTU 0.05-1.5 mcg/kg/min IV Infusion TITRATE 27.19 mL/hr at 03/12/23 0651 0.2 mcg/kg/min at 03/12/23 0651 simvastatin (ZOCOR) tablet 20 mg 20 mg Oral QHS Histories: Past Medical History: Diagnosis Date Asthma Atrial fibrillation Crohn disease, with fistula Esophageal reflux ESRD (end stage renal disease) ESRD (end stage renal disease) on dialysis Gout Hypercholesteremia Hypertension Past Surgical History: Procedure Laterality Date APPENDECTOMY CHOLECYSTECTOMY COLONOSCOPY 2015 CUBITAL TUNNEL RELEASE Right 05/28/2020 Surgeon: Leann Regalado MD; Location: [facility] OR Location DISTAL HUMERUS ORIF (SHX) Left 1972 EXCISE ADRENAL GLAND Left 2007 FRACTURE SURGERY KNEE ARTHROSCOPY Left 1986 OPEN CARPAL TUNNEL RELEASE Right 05/28/2020 Surgeon: Leann Regalado MD; Location: [facility] OR Location [place] PRQ TRLUML CORONARY STENT W/ANGIO ONE ART/BRNCH 2007 REMOVAL ANAL FISTULA,COMPLEX/MULTI 03/2015 No family history on file. Social History Socioeconomic History Marital status: Spouse name: Mile Number of children: 3 Highest education level: Associate degree: academic program Occupational History Occupation: Retired Tobacco Use Smoking status: Former Packs/day: 0.50 Years: 40.00 Additional pack years: 0.00 Total pack years: 20.00 Types: Cigarettes Smokeless tobacco: Never Tobacco comments: Quit 1 year ago Substance and Sexual Activity Alcohol use: No Alcohol/week: 0.0 standard drinks of alcohol Drug use: No Allergies: Allergies Allergen Reactions Augmentin [Amoxicillin-Pot Clavulanate] Unknown - See comments Norvasc [Amlodipine] Swelling Review of Systems: Constitutional: negative Eyes: negative Ears, nose, mouth, throat: negative Cardiovascular: negative Respiratory: negative Gastrointestinal: negative Genitourinary: (+) per HPI Musculoskeletal: negative Integumentary: negative Neurological: negative Psychiatric: negative Endocrine: negative Hematologic/Lymphatic: negative Allergic/Immunologic: negative, allergies listed above Physical Exam: Blood pressure 120/49, pulse 104, temperature 36.4 ?C (97.6 ?F), temperature source Axillary, resp. rate 16, weight 145 kg (319 lb 10.7 oz), SpO2 95 %. Constitutional: no acute distress Cardiovascular: regular rate Respiratory: respirations unlabored on room air Gastrointestinal: soft, non-distended, non tender Labs: CBC BMP PT/INR WBC (10*3/?L) Date Value 03/12/2023 20.45 (H) NA (mmol/L) Date Value 03/12/2023 135 No results found for: "PT" RBC (10*6/?L) Date Value 03/12/2023 3.73 (L) K (mmol/L) Date Value 03/12/2023 4.2 INR (no units) Date Value 03/12/2023 1.7 PLT (10*3/?L) Date Value 03/12/2023 343 (H) CALCIUM (mg/dL) Date Value 03/12/2023 8.7 HGB (g/dL) Date Value 03/12/2023 10.3 (L) CL (mmol/L) Date Value 03/12/2023 97 (L) aPTT HCT (%) Date Value 03/12/2023 33.0 (L) BUN (mg/dL) Date Value 03/12/2023 29 (H) APTT Patient (Seconds) Date Value 12/15/2015 32 CREATININE (mg/dL) Date Value 03/12/2023 6.00 (H) Radiology: Pending CT angiogram Procedure: None Assessment: Ira Raya is a 67 year old male with PCKD and ESRD presenting with large left perinephric hematoma and hemorrhagic shock transferred from [facility] in [facility]. Currently stable on 0.2 Levo with MAPs >65. Pain minimal. Recommendations: --Follow up CTA results --IR for embolization if necessary pending CTA --Trend Hgb, transfuse as needed per protocol --No surgical intervention from Urology warranted at this point --Rest per primary Jil Louis MD Urology Resident Pager: please page human resources receptionist using Xiaoying Associated attestation - Thigao De La Torre MD - 03/12/2023 3:11 PM CDT Agree with note and plan as outlined by Dr Louis. Thiago De La Torre MD 03/12/2023 3:11 PM [facility] - Health History and Physical Notes Date/Time Note Provider Source 2023-03-12 01:35:42 Formatting of this n ote is different from the original. Medicine Intensive Care History and Physical Date of Service: 03/12/2023 01:35 ICU day: 1 Intubation Date: N/A CHIEF COMPLAINT: Lindsey-nephric hemorrhage History of Present Illness Ira Raya is a 67 year old male with PMH significant for ESRD (MWF), Asthma, CAD, Crohn's disease, adrenal insufficiency, HLD, HTN, T2DM, and recent reported PE who is admitted to the MICU due to hemorrhagic shock 2/2 suspected left lindsey-nephric hemorrhage. Patient reports that he was chronically on Eliquis for his Afib but had an admission last week for shortness of breath and found to have a PE. He was then changed over to Coumadin per patient. Patient denies any mucosal bleeding, melena, or hematochezia over the past week since being on Coumadin. Patient was going to his usual dialysis session on and found to have abdominal pain and hypotension with SBP in 70's. He was slightly responsive to fluids and midodrine and was referred to evaluation at [facility]. Whilst there, patient was found to have INR 17.8 and continued hemodynamic instability with MAP in 40's and not fluid responsive. He had R femoral CVC placed and started on norepinephrine. Imaging revealed a left lindsey-nephric fluid collection, likely a hemorrhage. Given these findings and hemodynamic instability, patient was transferred to [facility] for IR and Urologic evaluation. On evaluation, patient states he overall feels well, just tired. Has some soreness in his groin around the CVC site but states he still has not seen any bleeding from anywhere. Denies CP, SOB, n/v/d/abdominal pain, headaches, dizziness, light-headedness. PAST MEDICAL HISTORY Past Medical History: Diagnosis Date Asthma Atrial fibrillation Crohn disease, with fistula Esophageal reflux ESRD (end stage renal disease) ESRD (end stage renal disease) on dialysis Gout Hypercholesteremia Hypertension PAST SURGICAL HISTORY Past Surgical History: Procedure Laterality Date APPENDECTOMY CHOLECYSTECTOMY COLONOSCOPY 2015 CUBITAL TUNNEL RELEASE Right 05/28/2020 Surgeon: Leann Regalado MD; Location: [facility] OR Location DISTAL HUMERUS ORIF (SHX) Left 1972 EXCISE ADRENAL GLAND Left 2006 FRACTURE SURGERY KNEE ARTHROSCOPY Left 1985 OPEN CARPAL TUNNEL RELEASE Right 05/28/2020 Surgeon: Leann Regalado MD; Location: [facility] OR [facility] [place] PRQ TRLUML CORONARY STENT W/ANGIO ONE ART/BRNCH 2007 REMOVAL ANAL FISTULA,COMPLEX/MULTI 03/2015 FAMILY HISTORY No family history on file. SOCIAL HISTORY Social History Socioeconomic History Marital status: Spouse name: Mile Number of children: 3 Highest education level: Associate degree: academic program Occupational History Occupation: Retired Tobacco Use Smoking status: Former Packs/day: 0.50 Years: 40.00 Additional pack years: 0.00 Total pack years: 20.00 Types: Cigarettes Smokeless tobacco: Never Tobacco comments: Quit 1 year ago Substance and Sexual Activity Alcohol use: No Alcohol/week: 0.0 standard drinks of alcohol Drug use: No ALLERGIES Allergies Allergen Reactions Augmentin [Amoxicillin-Pot Clavulanate] Unknown - See comments Norvasc [Amlodipine] Swelling Review of Systems: Per HPI PHYSICAL EXAMINATION Vitals: 03/12/23 0100 Weight: 145 kg (319 lb 10.7 oz) Constitutional: alert, comfortable, and in no acute distress HEENT: atraumatic, no scleral icterus, no conjunctival pallor Cardiovascular: irregularly irregular, no appreciable murmurs Respiratory: CTAB, non-labored Gastrointestinal: soft, non-distended, non-tender to palpation in all quadrants, no rebound tenderness or guarding, R femoral CVC in place, no bleeding Extremities: no LE edema, peripheral pulses normal, LUE AV fistula with good palpable thrill Skin: no rash or jaundice Neurologic: AO x 3 Psychiatric: normal affect Labs (pertinent only)/Imaging: No final results containing an impression from the past 2 days were found. Assessment/Plan: Ira Raya is a 67 year old male admitted with left lindsey-nephric hemorrhage secondary to elevated INR in the setting of coumadin for recent PE and prior Afib. Neuro No active concern Resp Reported PE Patient with self-reported recent diagnosis of PE and started on Coumadin. - cont monitor resp status - O2pp Cardiovascular Hemorrhagic shock 2/2 left perinephric hemorrhage Supratherapeutic INR Afib (on Eliquis) CAD HTN Patient with c/f perinephric hemorrhage in the setting of elevated INR from recent initiation of coumadin for PE and Afib. IR and urology on board with plans for repeat CTA to determine if active extravasation noted for possible embolization vs surgical intervention. - CTA stat - Kcentra and Vit K for Coumadin reversal protocol - PT/INR - CBC Q6H, transfuse > 7 - NE for pressor support FEN/GI Reported hx of Crohn's disease Patient unsure if he was fully diagnosed as his prior workup was not conclusive - c/w home mesalamine - Stress ulcer prophylaxis: H2 saige ID Leukocytosis Consider Bcx if febrile - cont monitor - possibly intraabdominal source Renal Left perinephric hemorrhage ESRD on HD TTS Likely in hemorrhagic shock with further IR and urologic workup to determine intervention strategy. May need temporary access for CRRT if pressures do not improve pending intervention - consult nephro, appreciate evaluation - consult urology, appreciate evaluation Endo Adrenal insufficiency Longstanding adrenal insufficiency with chronic steroid therapy. Given acute hemodynamic instability, will start stress dose steroids - cortef 50 mg Q6H Other DVT prophylaxis: contraindicated Lines/Catheters: Insertion date: 03/12/2023 Location: R AC Insertion date: 03/11/2023, Location: R femoral CVC Dispo: Admitted to MICU Prognosis: Critical Code Status: FULL Eber Finnegan, DO Internal Medicine | PGY-3 [facility] Team Associated attestation - Susan Ramirez MD - 03/12/2023 8:30 AM CDT I personally examined the patient on 03/12/[address] Finnegan's resident note. I actively participated in the decision-making process. Please see the resident's note for additional details. Ira Raya is a 67 year old male admitted with Shock - hemorrhagic Recent PE -- on coumadin -- HOLDING ESRD Supratherpeutic INR --Coagulopathy -- improved Likely type II WA PLAN Improvement in INR Urology consulted IR evaluated and did not note extravasation Hold anticoagulation [facility] Procedure Notes Date/Time Note Provider Source 2023-03-12 19:50:03 Procedure(s): CENTRA L LINE Central Venous Access Internal Jugular Procedure Note Date of Service: 03/12/23 Faculty: Dr. Ashley Loya, credentialed supervisor cap and hat production, was present for ge portions of the procedure. Procedure performed by: Marjorie Claros MD Indication/Diagnosis: dialysis Consent: indications/complications disucssed; verbal consent obtained from patient Procedure details: Sterile dressing: Tegaderm Anesthesia: local: 1% lidocaine Instrument(s) type: triple lumen catheter Ultrasound utilized: Yes Venous access confirmed by manometry: No Venous access flushed without resistance: Yes Complications: none Chest x-ray: cleared Narrative: Patient was prepped and draped in the usual sterile fashion with chlorhexidine A central line was introduced with the Seldinger technique under ultrasound guidance into the left internal jugular vein after 1) attempts. Venous position was confirmed using manometry. Guide wire was threaded without difficulty. The catheter was then placed over the guide wire, the guide wire was removed, and the catheter was sutured into place. Good flow was noted from the port(s) and the catheter flushed easily. Blood loss was minimal. Complications No. Marjorie Claros MD [facility] of Internal Medicine [facility]Y-2[facility] Associated attestation - Susan Ramirez MD - 03/13/2023 8:17 AM CDT I was not present for but agree with the need for the procedure. [facility] Notes Date/Time Note Provider Source 2024-05-15 11:04:28 Refill has been sent to pharmacy on file. Per last OV Continue hydrocortisone 10mg twice a day for now, on your sick days, will double your dose up to 4 pills aday NCE TUTOR Santana Salmeron RN [facility] 2024-05-01 16:50:50 Attempted to reach patient , left a V/M informing him it is okay to take the Mucinex [facility] 2024-05-01 15:28:04 Attempted to reach patient , will try again later [facility] 2024-05-01 11:35:36 Yes [facility] 2024-05-01 11:07:26 Ira Raya is a 68 year old male and Ning sarabia nurse is calling for pt. Pt has had sinus congestion, sinus pressure, and nausea due to the congestion. Pt would like to know if he can take mucinex medication. Call pt please: [phone] Jaylyn Dorseylupe [facility] 2024-04-30 09:29:51 Images from the original note were not included. Requested Renewals Name from pharmacy: Nystatin [id number] UNIT/GM External Powder Will file in chart as: NYSTATIN 100,000 unit/gram powder Possible duplicate: Hover to review recent actions on this medication Sig: APPLY POWDER TOPICALLY TWICE DAILY TO AREA(S) Disp: 15 g Refills: 0 Start: 04/30/2024 Class: eRX For: Tinea cruris Last ordered: 2 weeks ago (04/11/2024) by Ira Ramirez MD Last refill: 02/17/2024 Rx #: [id number] Provider Review Required - nystatin [id number]/30/2024 07:30 AM Protocol Details This refill cannot be delegated Valid encounter within last 12 months To be filled at: [facility] - [address] Recent Visits Date Type Provider Dept 11/29/23 Office Visit Ira Ramirez MD [facility] 06/15/23 Office Visit Ira Ramirez MD [facility] 01/12/23 Office Visit Ira Ramirez MD [facility] 11/17/22 Office Visit Ira Ramirez MD [facility] Showing recent visits within past 540 days with a meds authorizing provider and meeting all other requirements Future Appointments No visits were found meeting these conditions. Showing future appointments within next 150 days with a meds authorizing provider and meeting all other requirements Nida Fall LVN [facility] 2024-04-11 13:20:57 Images from the original note were not included. Notes: Last Refilled: Name from pharmacy: Nystatin [id number] UNIT/GM External Powder Will file in chart as: NYSTATIN 100,000 unit/gram powder Possible duplicate: Hover to review recent actions on this medication Sig: APPLY POWDER TOPICALLY TWICE DAILY TO AFFECTED AREA(S) Disp: 15 g Refills: 0 Start: 04/11/2024 Class: eRX For: Tinea cruris Last ordered: 3 weeks ago (03/21/2024) by Ira Ramirez MD Last refill: 03/21/2024 Rx #: [id number] Provider Review Required - nystatin [id number]/11/2024 01:20 PM Protocol Details This refill cannot be delegated Valid encounter within last 12 months To be filled at: [address] Recent Visits Date Type Provider Dept 11/29/23 Office Visit Ira Ramirez MD [facility] 06/15/23 Office Visit Ira Ramirez MD [facility] 01/12/23 Office Visit Ira Ramirez MD [facility] 11/17/22 Office Visit Ira Ramirez MD [facility] Showing recent visits within past 540 days with a meds authorizing provider and meeting all other requirements Future Appointments No visits were found meeting these conditions. Showing future appointments within next 150 days with a meds authorizing provider and meeting all other requirements [facility] 2024-03-27 11:42:23 Refill has been sent to pharmacy on file. Future Appointments No visits were found meeting these conditions. Showing future appointments within next 150 days with a meds authorizing provider and meeting all other requirements Santana Salmeron RN [facility] 2024-03-19 15:23:38 Images from the original note were not included. Requested Renewals Name from pharmacy: Metoprolol Tartrate 25 MG Oral Tablet Will file in chart as: METOPROLOL TARTRATE 25 mg tablet The original prescription was discontinued on 11/28/2023 by Yari Baldwin MA. Renewing this prescription may not be appropriate. Possible duplicate: Hover to review recent actions on this medication Sig: TAKE 1 TABLET BY MOUTH IN THE MORNING AND 1 IN THE EVENING Disp: 30 tablet Refills: 0 Start: 03/19/2024 Class: eRX Last ordered: 4 months ago (11/03/2023) by Ira Ramirez MD Last refill: 11/16/2023 Rx #: [id number] Cardiovascular: Beta Blockers [id number]/19/2024 10:57 AM Protocol Details Valid encounter within last 12 months Heart rate within normal limits and completed in the last 12 months Name from pharmacy: Nystatin [id number] UNIT/GM External Powder Will file in chart as: NYSTATIN 100,000 unit/gram powder Sig: APPLY POWDER TOPICALLY TWICE DAILY TO AREA(S) Disp: 15 g Refills: 0 Start: 03/19/2024 Class: eRX For: Tinea cruris Last ordered: 3 months ago (11/29/2023) by Ira Ramirez MD Last refill: 02/17/2024 Rx #: [id number] Provider Review Required - nystatin [id number]/19/2024 10:57 AM Protocol Details This refill cannot be delegated Valid encounter within last 12 months To be filled at: [facility] [address] [place] [address] Recent Visits Date Type Provider Dept 11/29/23 Office Visit Ira Ramirez MD [facility] 06/15/23 Office Visit Ira Ramirez MD [facility] 01/12/23 Office Visit Ira Ramirez MD [facility] 11/17/22 Office Visit Ira Ramirez MD [facility] 10/01/22 Office Visit Anene, Mary Alice, CEMENT PAVER [facility] Showing recent visits within past 540 days with a meds authorizing provider and meeting all other requirements Future Appointments No visits were found meeting these conditions. Showing future appointments within next 150 days with a meds authorizing provider and meeting all other requirements Nida Fall LVN [facility] 2024-02-20 13:03:36 Received Episode Summary Report from [facility]. Placed in Providers box. Sharita Swain [facility] 2024-02-17 11:13:52 Images from the original note were not included. Loyda Arora [facility] 2024-02-13 16:27:55 Telehealth should be OK for tomorrow's visit V [facility] 2024-02-13 15:39:51 Patient has appointment tomorrow at 3:45 with you to update his ambulance transportation paperwork and wants to know if he can do a telehealth visit because they are going to charge him $600 just to bring him in tomorrow for this visit. Imelda Raya [facility] 2024-01-04 08:56:48 Orders sent to Fx # [phone] [facility] 2024-01-04 07:33:52 He needs daily wet to dry dressings Protime and INR once monthly [facility] 2024-01-03 12:48:54 Dante is the [facility] home health nurse and states: The pt wound on his right lower abdomin was at a stage 2. Dante saw the wound today and says there is an increase in tissue loss and yellow discharge. Wound now looks to be at stage 3. Dante is asking for new wound care orders to be placed. Dante also said that if the provider is wanting to have PT and INR labs done, then orders need to be placed and with the frequency listed. Please advise. Kaylyn Childers [facility] 2023-12-21 09:04:04 Faxed Wound Care orders for Patient to fax # [phone] T [facility] 2023-12-21 07:35:15 Clean with soap and water Apply JUDSON Apply clean dressing prn [facility] 2023-12-20 11:44:03 Please review and advise on wound care orders T [facility] 2023-12-20 11:29:49 Ira Raya is a 68 year old male Dante rn with [facility] calling in to notify Dr. Ramirez pt has developed open wound on r lower abdomin that is bacilio size and not healing. No signs of infection but req wound care orders . Please call steven Ph. [phone] Sloane Sexton [facility] 2023-12-20 09:54:10 [facility] [facility] sent certification update form to be filled out for patient transportation. They want reason patient is needing transportation, is he able to walk or use wheel chair and any and all medical notes placed in provider box. Imelda Raya [facility] 2023-12-19 16:41:34 Notified jered T [facility] 2023-12-19 16:15:05 Ira Raya is a 68 year old male Jered with [facility] called regarding the INR order. She wants to know if its a repeat order or one time order. Please advise. Angy Lowery [facility] 2023-12-13 16:23:47 Attempted to reach patient at both numbers provided in chart there was No Answer , V/M left informing patient he did not qualify for Home Health [facility] 2023-12-13 14:07:21 As I expected V T [facility] 2023-12-13 13:48:45 Ira Raya is a 68 year old male Irina [facility] states referral has been reviewed by the clinical manager wireless, no skills and no qualifying diagnosis for home health. If any questions please reach out to [facility] health at [phone] Laura Vargas [facility] 2023-12-13 08:16:32 Notes were signed and faxed back [facility] 2023-12-12 16:56:11 Ira Raya is a 68 year old male. Irina with [facility] is calling stating that they are needing the office visit notes signed from the the visit on 11/29/23 then faxed back over. Niecy Cochran [facility] 2023-12-12 16:51:16 Re-sent Order and added Jail T [facility] 2023-12-12 16:45:30 Ira Raya is a 68 year old male Ira Raya is a 68 year old male Irina with [facility] states that they received orders from Dr Ramirez but they are needing residential added to the order [id number] Isabel Iniguez [facility] 2023-12-12 15:35:08 Attempted to reach patient @ the home number [phone] No Answer Called the cell [phone] 2 times no answer left a V/M informing patient orders and notes were faxed to [facility] for OT/PT and INR -PT Not sure if codes will be accepted last time we tried HH for patient this was the problem he had no Dx Codes that would Qualify him for there services [facility] 2023-12-12 13:51:23 Patient called wanting to know the status on his [facility] home health. They stated that they were needing more information before they can start PT/OT on him and he wanted to know if they were going to do INR also. Please call back with the status of when they will start. Imelda Raay [facility] 2023-12-12 11:44:20 We have submitted HH Orders before and was denied by insurance for no current DX code that would qualify him for services I will try and send orders again [facility] 2023-12-09 11:12:00 Copied from [facility] #[id number]. Topic: Clinical - Medical Advice >> December 09, 2023 11:11 AM Patient Practice Architect wrote: Yenny Mohan Rail Switch Operator with Dialysis is calling to speak with someone in the clinic. she states that the pt is saying Dr Ramirez wrote a HH order for [facility] but [facility] did not recieve it and would like to know if it can be resent. Keesha Pulliam 12/09/2023 11:12 AM Keesha Pulliam [facility] 2023-12-06 10:54:11 Recent Visits Date Type Provider Dept 11/29/23 Office Visit Ira Ramirez MD [facility] 06/15/23 Office Visit Ira Ramirez MD [facility] 01/12/23 Office Visit Ira Ramirez MD [facility] 11/17/22 Office Visit Ira Ramirez MD [facility] 10/01/22 Office Visit Mary Alice Galarza FNP [facility] 08/13/22 Office Visit BarabraMary Alice hendrickson FNP [facility] 07/27/22 Office Visit Ira Ramirez MD [facility] Showing recent visits within past 540 days with a meds authorizing provider and meeting all other requirements Future Appointments No visits were found meeting these conditions. Showing future appointments within next 150 days with a meds authorizing provider and meeting all other requirements Last refill was loperamide 2 mg capsule 180 capsule 0 10/24/2023 -- No Sig: TAKE DIRECTED - AFTER LOOSE STOOL, DO NOT TAKE MORE THEN 8 CAPSULES PER DAY Sent to pharmacy as: loperamide 2 mg capsule (IMODIUM A-D) T [facility] 2023-11-29 14:00:00 Images from the original note were not included. Venipuncture collection performed by clean technique on the right anticubitus. Total of 1 attempts were made. Slight pressure and a bandage/dressing were applied to the site(s). The patient experienced no complications. The following specimens were processed according to instructions and sent to [facility] laboratories per lab order on 11/29/2023 : LT BLUE 1 SST RED LAV PPT DK GREEN (LiHep) DK GREEN (SodH) CASTELLON DK BLUE (K2) DK BLUE (S) ACD Blood Culture NIPT/NTD T [facility] 2023-11-14 10:04:40 Dr Ramirez has not provided any new DX Codes T [facility] 2023-11-14 08:10:13 Copied from [facility] #[id number]. Topic: Clinical - Order >> November 14, 2023 8:09 AM Patient Practice Architect wrote: Kayla with [facility] is calling to request orders for HH and qualifying diagnosis. Keesha Pulliam 11/14/23 8:09 AM Keesha Pulliam [facility] 2023-11-08 10:00:15 Copied from [facility] #[id number]. Topic: Clinical - Order >> Nov 08, 2023 9:59 AM Patient Practice Architect wrote: Kayla with [facility] called following up on request. Please advise. oLtus Broussard [facility] 2023-11-05 13:17:09 Received radiology services report from [facility] and have placed in provider's box. Shasha Avila [facility] 2023-11-04 15:11:49 Addended by: OTIS ROWE LVN on: 11/04/2023 03:11 PM Modules accepted: Orders Otis Rowe LVN [facility] 2023-11-04 14:50:34 Name: Ira Raya Date: 02/28/2024 Status: [facility] Arrival Time: 3:15 PM Length: 30 Visit Type: TELEHEALTH VISIT Copay: $0.00 Provider: Ye Winkler MD Department: [facility]- ENDOCRINOLOGY Pt is scheduled , is he able to get med refill to last him until appt in ? [facility]. (Through July 10, 2024, you can get telehealth services at any location in the [place] including your home. After this period, you must be in an office or medical facility located in a rural area (in the [place] Petra Lowry [facility] 2023-11-03 16:18:27 The only way we can get medicare to cover for P/T or O/T there has to be a DX of muscle wasting , back pain ( explain what causes back pain ) osteoarthirits And as fas as the Jail Dx needs to be Asthma , A-fib and HTN any thing with Exacerbation Your office notes would need to be amended and you would need to but muscle wasting , back pain , asthma , afib listed as a need for home health morbid obesity and weakness does not work any more with Medicare [facility] 2023-11-03 12:13:35 Last Refilled: metoprolol tartrate 25 mg tablet 30 tablet 2 03/22/2023 -- No Sig: Take 1 tablet by mouth in the morning and 1 tablet in the evening. Class: Historical Med Route: Oral Order: [id number] Date/Time Signed: 03/22/2023 12:55 Recent Visits Date Type Provider Dept 06/15/23 Office Visit Ira Ramirez MD [facility] 01/12/23 Office Visit Ira Ramirez MD [facility] 11/17/22 Office Visit Ira Ramirez MD [facility] 10/01/22 Office Visit Mary Alice Galarza FNP [facility] 08/13/22 Office Visit Mary Alice Galarza FNP [facility] 07/27/22 Office Visit Ira Ramirez MD [facility] 05/12/22 Office Visit Ira Ramirez MD [facility] Showing recent visits within past 540 days with a meds authorizing provider and meeting all other requirements Future Appointments No visits were found meeting these conditions. Showing future appointments within next 150 days with a meds authorizing provider and meeting all other requirements Kelli Pak [facility] 2023-11-03 10:49:10 Copied from [facility] #[id number]. Topic: Clinical - Order >> Nov 03, 2023 10:47 AM Patient Practice Architect wrote: Rosa with [facility] calling to speak with nurse to discuss diagnosis for home health orders received. Noejesus MilianPatrick [facility] 2023-11-03 08:30:17 Copied from [facility] #[id number]. Topic: Clinical - Medical Advice >> Nov 03, 2023 8:27 AM Patient Practice Architect wrote: Shasha with [facility] Calling to confirm receiving referral. States they are in network and referral is being processed Hi Cannon [facility] 2023-11-02 18:53:01 Patient have not been seen for more than a year. I am not sure if his insurance let us to do telemedicine. Please forward message to clinical field specialist and let them decide Ye Winkler MD Division of Endocrinology and Metabolism IM-ENDOCRINOLOGY,DIABE ZAKI & METABOLISM STAFF [facility] 2023-11-02 14:55:54 Patient is not mobile and would have to come in by ambulance and is wanting to know he could have a telehealth appointment to refill medicine that he has been out of for a long time. Patient wanting a nurse to call him back. Imelda Raya [facility] 2023-10-31 14:44:35 Ok to schedule telehealth appointment must be done on a I-Phone so it can be a video call [facility] 2023-10-31 14:18:57 OK but it has to be a video call V [facility] 2023-10-31 13:39:13 Patient wants to know if he can set up a Telehealth for a face to face to reestablish [facility] for residential orders, he is unable to come in unless by ambulance only. Fax to [facility] [phone] Imelda Raya [facility] 2023-10-31 08:22:02 Patient wants a refill sent to [facility] [place] [facility] 10:55:36 Patient called and wanted to have orders for physical therapy sent to [facility] in [place] fax # [phone] or [phone] to start strengthening his legs and core again to get back mobile again to a more healthy life style. He also stated [facility] was only coming out for about a hour or less a week and he needs more than that. [facility] refused him and [facility] wants to review his history before making a decision. [facility] 10:23:09 Orders faxed T [facility] 2023-10-12 09:25:45 Patient called and wanted to have orders for physical therapy sent to [facility] to start strengthening his legs and core again to get back mobile again to a more healthy life style. He also stated [facility] was only coming out for about a hour or less a week and he needs more than that. Imelda Kingston Elver [facility] 2023-09-27 08:48:33 Returned call I was unable to speak to Keiry or Mindy but I did leave a message with the Steel Cutter that he would need to be seen for clearance , she verbalized understanding and will let the Nurse No [facility] 2023-09-26 16:52:59 Letter refaxed and confirmation was received. Stella Macario LVN [facility] 2023-09-26 16:28:05 Ira Raya is a 68 year old male Keiry with Dr. Andrey Gr's office is needing medical clearance for pts surgery for tomorrow 09/26. Fx: [phone] Sarahi Gallegos [facility] 2023-09-26 10:12:50 Ira Raya is a 68 year old male' Keiry with Dr. Andrey Gr's office is retuning a missed call from Imelda & also wanting to see if we can re faxed medical clearance letter Fx: [phone] Please advise [place] Mercedes [facility] 2023-09-23 16:14:57 Letter faxed and confirmation received. Stella Macario LVN [facility] 2023-09-23 15:15:20 It's fine from our standpoint SULY-VASCULAR SURGERY STAFF [facility] 2023-09-23 14:48:06 Spoke with Mindy with Dr. Gr's office and she stated that the patient is scheduled for an amputation on 09/27/2023 and needs clearance from us. Please advise if okay for clearance from a vascular standpoint. Per AMBROSIO 07/18/2023 "This is a patient who we had recently seen for toe ulcer. The plan had been for arterial studies and an MRI to check for osteomyelitis, and then a telehealth visit. I called the patient today and discussed that his LIANG was likely inaccurate due to calcified vessels and that we needed to get the MRI. For some reason he has had trouble scheduling the MRI. Will try and help him get the MRI scheduled and then do another telehealth visit to discuss those results. If he has osteomyelitis then we will consider toe amputation." [facility] 2023-09-23 14:08:34 Ira Raya is a 68 year old male Mindy from Dr. Andrey Gr's office is calling stating pt is having Orthopedic surgery on 09/26 and asking if clearance can be signed today or Tuesday. Please advise Ph. [phone] Chase Dooley [facility] 2023-09-09 11:18:14 Images from the original note were not included. NCE TUTOR Carmen Hicks RN [facility] 2023-09-08 09:58:22 Informed patient ok to stop Warfin 7 days before surgery, he verbalized understanding Patient is bed bound and only gets to appointments by ambulance. Patient is needing PT/INR checked often and his home health has Discharged there services ( [facility]) I will fax orders to see if I can get them to go out for blood draws [facility] 2023-09-08 09:56:35 Copied from [facility] #[id number]. Topic: Clinical - Medical Advice >> Sep 08, 2023 9:51 AM [place] Team wrote: Jayna from [facility] called isabelxavier that they are faxing over a clearance to stop an rx WARFARIN 1 mg tablet due to the patient having an upcoming surgery on 09/26 and would need this form filled out and faxed back to them she will be faxing over clearance today Form for Clearance [facility] Paul Arroyoazar [facility] 2023-09-08 09:34:43 That should be OK; restart his medication the day after surgery V [facility] 2023-09-08 09:14:36 Please advise [facility] 2023-09-08 09:03:41 Patient is having foot surgery on September 27, 2023 and the provider is wanting him to stop taking his Warfin for 7 days before surgery. Patients wants to make sure this is okay with his provider? Please call patient at: [phone] Also has questions on his INR N Raya [facility] 2023-09-07 08:40:16 Notified Wallace / he has been discharged [facility] 2023-09-07 07:29:42 I do not have another diagnosis that will qualify him for Physical therapy V [facility] 2023-09-05 11:52:52 Spoke with Parveen at [facility] Center they do not draw the PT/ INR [facility] 2023-09-02 09:01:35 Called Wallace back @ [facility] she explained about the discharge and advised me to call [facility] @ [phone] I call and spoke with Parveen at the dialysis center and ask her if they could do the lab there since he goes there for dialysis she was unsure and was going to check with the doctor and let me No . [facility] 2023-09-02 08:57:[address] Randolph at this time. [facility] 2023-09-01 14:22:55 Ira Raya is a 68 year old male Wallace with [facility] Home Health called and states that they discharged pt from home health. However, he is still needing PT/ INR lab drawn. She is wanting to know if we can send orders to [facility] so that they can draw the labs. Please advise. Call back number: [phone] NCE TUTOR Lotus Broussard [facility] 2023-09-01 10:30:46 Ira Raya is a 68 year old male Anna Marie from called stating that they did receive the notes for the patient but they are needing another diagnose with more documentation for physical Therapy the Diagnose weakness is not going to be able to be used for physical therapy and they need this form faxed back to their office Please advise Form Call back [phone] NCE TUTOR Paul Lassiter [facility] 2023-08-31 16:16:59 [facility] to call back regarding concerns N Macario LVN [facility] 2023-08-30 12:16:54 Ira Raya is a 68 year old male Patient is calling for an update on the next step in his care. Stated he is calling to on surgery date. Please call [phone] N Carr [facility] 2023-08-30 10:17:41 Faxed last OV/ Notes to [facility] NCE TUTOR [facility] 2023-08-30 09:58:32 Ira Raya is a 68 year old male Wallace with [facility] Home Health called and states that they are needing last visit notes that support physical therapy. Please advise. Call back [phone] N Broussard [facility] 2023-08-29 16:12:37 Orders for PT faxed to [facility] 2023-08-29 15:05:41 Evaluate and treat [facility] 2023-08-29 14:14:17 Please review and advise on orders for P/T [facility] 2023-08-29 12:47:35 Patient called wanting Physical Therapy orders sent to [facility]. He is wants to build up his upper body to walk again. Wants weight training and to strengthen his legs and upper body. Patient spoke to [facility] today and they will start training but needs orders from primary provider sent over. [facility] Imelda Raya [facility] 2023-08-29 10:14:41 Images from the original note were not included. [facility] 2023-08-29 09:47:18 Patient's came in and stated that patient is wanting to get the surgery referred by , please advise. [facility] Suha Pan [facility] 2023-08-25 09:46:41 Marbellaied wallace @ [facility] 2023-08-24 12:45:12 Continue current dose and recheck 2 weeks [facility] 2023-08-24 11:44:55 Ira Raya is a 68 year old male and Wallace with [facility] is calling stating the recent INR labs showed 1.6 and would like new orders to be faxed over please. NCE TUTOR Jaylyn Winters [facility] 2023-08-15 14:56:[address] Ramirez's recommendations [facility] 2023-08-15 11:49:50 Recheck in a week [facility] 2023-08-15 09:25:44 Ira Raya is a 68 year old male. Wallace with [facility] is calling. Pt's lab INR result is 1.3 Wallace [phone] NCE TUTOR Lissette Tejeda [facility] 2023-08-12 13:11:09 [facility] sent over blood results NCE TUTOR Imelda Raya [facility] 2023-08-12 09:21:42 Ira Raya is a 68 year old male. Wallace with [facility] is calling. Pt's lab INR result is 1.3 Wallace [phone] [facility] NCE TUTOR Mela Velazquez [facility] 2023-07-29 14:27:57 Please Advise NCE TUTOR [facility] 2023-07-29 11:07:42 Ira Raya is a 68 year old male Wallace with [facility] is calling wanting to speak w a nurse in regards of pt's "INR results came back as 3.0" having questions about when to re check it & if pt's med (warfarin) has to be change to a diff dose please advise Thank you [facility] FX [phone] N Mercedes [facility] 2023 11:49:24 MRI and telehealth f/u scheduled. N Augustvijay [facility] 2023 10:53:09 LVM asking pt to call back for assistance with MRI and f/u scheduling. [facility] Adair [facility] 2023-07-18 17:20:35 Records state patient has been contacted multiple times to schedule MRI, patient says he has never been contacted. Patient is homebound and requires ambulance for transport, but is able to talk on the phone. MD Randolph wants to ensure this MRI of his foot gets done before his next visit. I have reached out to radiology scheduling to request they re-try to schedule the patient. Once patient is schedule we need to make an appointment for a telehealth visit with . NCE TUTOR Sultana Ball RN [facility] 2023-07-15 13:49:14 Ira Raya is a 67 year old male. Wallace with [facility] is following up on her report of the pt's INR results. Please advise. Wallace--[phone] [facility] N Velazquez [facility] 2023-07-14 16:48:05 Ira Raya is a 67 year old male Wallace with [facility] health would like to give Dr. Mcdonnell a message regarding lab results: INR 1.4 Please advise [facility] on orders [phone] N Cannon [facility] 2023-07-14 16:40:22 What medication ? [facility] 2023-07-14 16:12:45 Patient called wanting refill of medicine called into [facility] N Raya [facility] 2023-07-14 11:27:03 Patient's family calling office in regards to changing appt to telehealth due to transportation. Please review previous note and confirm if the OK is given to update appointment. Patient physically cannot transport to clinic appointments. N Raymond [facility] 2023-07-13 09:07:24 Patient contacted office to request f/u visit be changed to a telehealth visit due to patient being unable to walk or use transportation at this time. Currently he utilizes [facility] for transportation and is only able to visit the hospital. Please confirm if we can update his visit to telehealth. [facility] 2023-03-23 10:25:09 Formatting of this n ote is different from the original. TRANSITIONAL CARE MANAGEMENT ASSESSMENT 03/23/2023 Ira Raya [id number] Ira Raya is a 67 year old Black or male was admitted on 03/12/[address] He was discharged on 03/22/23 with discharge disposition of HR- Routine Discharge. Admitting Physician: Chong Garcia Discharge Diagnosis: Hemorrhagic Shock 2/2 Perinephric hematoma, on Warfarin Linked Episodes Type: Episode: Status: Noted: Resolved: Last update: Updated by: TRANSITION OF CARE TCM Active 03/23/2023 03/23/2023 10:24 AM Breanna Caballero RN Comments: TCM Btt-jnph-lt-face outreach documentation: Discharge Assessment Chart Assessed: 03/23/23 Chart Reviewed - Post Discharge Call Deferred due to Change in Discharge Status.: Discharged to Inpatient Rehab Discharge Plan for ongoing care and services: Rehabilitation Discharge Location: Rehabilitation location: Other Other Rehabilitation location: [address] , [place] [address] Dialysis Facility: Other ([facility] [facility]) Future Appointments: Future Appointments Provider Department Dept Phone 06/06/2023 8:30 AM Eduardo Morrison MD [facility], [place] [phone] Transition CM follow-up call deferred at this time. Breanna Caballero RN, MSN, MEDSURG-BC, CCRN, CCM Transitions of Soil Conservation Teacher Proficient Full Time Cafeteria Manager Management Office: [phone] Breanna Caballero RN [facility] 2023-03-22 20:49:59 Formatting of this n ote might be different from the original. Pt off unit with EMS; all papers given in packet to EMT's; pt cleaned and all mepilex changed. PT given scheduled pm meds. Pt denies any questions or needs at this time.All PIV's have been DC'd. Andrew Tucker RN [facility] 2023-03-22 17:52:01 Formatting of this n ote might be different from the original. HEMODIALYSIS NURSING NOTE Number Hours: 3.and 24 mins (4.0 hours prescribed) Bath: 2K 3 Calcium (standard dialysate) Heparin: treatment 1000 units given pre tx. Held the mid tx dose. Access: left AVF forearm Net UF: 1100ml Weight: pre 146.46 kg, post 145.4 kg Post BP 113/63 Post Pulse 73 Antibiotics/Medications Given: Midodrine 15mg tab po given pre HD Complications/Events of Treatment: Unable to tolerate 2-3L UF as ordered due systolic blood pressure at 90's even with midodrine 15mg PO pre tx.. Left forearm AVF assessed with scab and wound noted on both arterial and venous puctured site. Cannulated aseptically on new site. HD treatment not completed, 36 mins remaining, patient strongly refused to continue the treatment, Dr. Fonseca made aware and able to removed 1100ml of fluids.. Left the unit vitally stable and no distress noted. Written report completed and attached to Patient Chart for primary nurse Mode of Transport Back to Unit: bed and accompanied by transporter See hemodialysis flowsheet for details of treatment. Kelly Linares RN [facility] 2023-03-22 15:47:44 Formatting of this n ote might be different from the original. Pt to be discharged to [facility] after dialysis. Report given to YOEL Otero. Ambreen Shepard RN [facility] 2023-03-22 15:46:46 Formatting of this n ote might be different from the original. Problem: Respiratory Function - Impaired Goal: Able to cough effectively Outcome: Adequate for discharge Goal: Adequate oxygenation Outcome: Adequate for discharge Goal: Adequate work of breathing Outcome: Adequate for discharge Problem: Fluid Volume - Imbalanced Goal: Absence of imbalanced fluid volume signs and symptoms Outcome: Adequate for discharge Problem: Pain Goal: Reduction in pain sensation Outcome: Adequate for discharge Problem: Discharge Planning Goal: Adequate for discharge Outcome: Adequate for discharge Problem: Procedure Routine Goal: Knowledge of procedure Outcome: Resolved Problem: Discharge Planning Goal: Effective communication Outcome: Resolved Problem: Falls, Risk of Goal: Absence of falls Outcome: Resolved [facility] 2023-03-22 14:03:30 Formatting of this n ote might be different from the original. Hemodialysis Plan of care reviewed r/t treatment time & UF goal. Also reviewed possible side effects of HD tx, such as s/s of hypotension, cramping (during tx and at rare times after tx), N/V, CP or any other concerns. Patient acknowledge understanding of treatment plan. [facility] 2023-03-22 01:53:14 Formatting of this n ote might be different from the original. Pt refused BIPAP T Hadley Rice RT [facility] 2023-03-22 00:22:45 Formatting of this n ote might be different from the original. Problem: Respiratory Function - Impaired Goal: Able to cough effectively Outcome: Progressing as expected Goal: Adequate oxygenation Outcome: Progressing as expected Goal: Adequate work of breathing Outcome: Progressing as expected Problem: Procedure Routine Goal: Knowledge of procedure Outcome: Progressing as expected Problem: Fluid Volume - Imbalanced Goal: Absence of imbalanced fluid volume signs and symptoms Outcome: Progressing as expected Problem: Pain Goal: Control of pain at or below patient's documented comfort goal Outcome: Progressing as expected Goal: Reduction in pain sensation Outcome: Progressing as expected Problem: Discharge Planning Goal: Adequate for discharge Outcome: Progressing as expected Goal: Effective communication Outcome: Progressing as expected Problem: Falls, Risk of Goal: Absence of falls Outcome: Progressing as expected Jesus Mccrary RN [facility] 2023-03-21 15:23:59 Formatting of this n ote is different from the original. Care Management Discharge Disposition Note (DCDN) -- Interventions: Disease specific education;Clear discharge plan;Follow-up appointments;Teach back;Follow-up phone calls -2- Providers: Physician;Soil Conservation Teacher/Rail Switch Operator -- Patient Capacity Improvements: Avoidance of adverse events/readmission Discussed with patient/patient s family involved in decision making: Patient or family caregiver understands, and agrees with discharge plan Patient's family or support contact: Mile RayaFpwtc-pqhuts-[phone] Discharge Plan for ongoing care and services: Rehabilitation Discharge Location: Rehabilitation location: Other Other Rehabilitation location: [address], [place] [address] Dialysis Facility: Other ([facility]) Miscellaneous: DME Location: DME Other: DME List: Other Living arrangements: MOT: Accepting physician: Accepting helpdesk administrator: Call RN Report: Transportation: Wheelchair Van Prior authorization obtained for ambulance: Authorization number: CPT code: Discharge Medications Will the patient be able to obtain his medications? Yes Does the patient have transportation to to obtain the prescription medications? Yes Expected discharge date: Time: Name of RN informed of discharge: Additional Information: CM/PEPE Name & Contact number: ANTONIA STRONG RN Ph. [phone] The following information has been provided to the facility noted above: reason for the patient discharge or transfer; patient s physical and psychosocial status; summary of care, treatment, services provided to patient; and the patient progress toward goals. [facility] 2023-03-21 13:13:41 Formatting of this n ote might be different from the original. Problem: Respiratory Function - Impaired Goal: Able to cough effectively Outcome: Progressing as expected Goal: Adequate oxygenation Outcome: Progressing as expected Goal: Adequate work of breathing Outcome: Progressing as expected Problem: Procedure Routine Goal: Knowledge of procedure Outcome: Progressing as expected Problem: Fluid Volume - Imbalanced Goal: Absence of imbalanced fluid volume signs and symptoms Outcome: Progressing as expected Problem: Pain Goal: Control of pain at or below patient's documented comfort goal Outcome: Progressing as expected Goal: Reduction in pain sensation Outcome: Progressing as expected Problem: Discharge Planning Goal: Adequate for discharge Outcome: Progressing as expected Goal: Effective communication Outcome: Progressing as expected Problem: Falls, Risk of Goal: Absence of falls Outcome: Progressing as expected T [facility] 2023-03-20 23:29:58 Formatting of this n ote might be different from the original. Problem: Respiratory Function - Impaired Goal: Able to cough effectively Outcome: Progressing as expected Goal: Adequate oxygenation Outcome: Progressing as expected Goal: Adequate work of breathing Outcome: Progressing as expected Problem: Procedure Routine Goal: Knowledge of procedure Outcome: Progressing as expected Problem: Fluid Volume - Imbalanced Goal: Absence of imbalanced fluid volume signs and symptoms Outcome: Progressing as expected Problem: Pain Goal: Control of pain at or below patient's documented comfort goal Outcome: Progressing as expected Goal: Reduction in pain sensation Outcome: Progressing as expected Problem: Discharge Planning Goal: Adequate for discharge Outcome: Progressing as expected Goal: Effective communication Outcome: Progressing as expected Problem: Falls, Risk of Goal: Absence of falls Outcome: Progressing as expected Rosana Null RN [facility] 2023-03-19 17:58:39 Formatting of this n ote might be different from the original. HEMODIALYSIS NURSING NOTE Number Hours: 3 hours 20 min, scheduled 4 hours Bath: 3K 3 Calcium Heparin: zero Access: left AVF forearm Net UF: 960mls Weight: pre 140.5 kg, post 139.6 kg Post BP 138/66 Post Pulse 88 Antibiotics/Medications Given: none Complications/Events of Treatment: frequently low BP. No complaints report related to hypotension. UF goal lowered to 1.5 liters. Patient not able to meet goal, requesting to terminate 40 min early. notified. Handoff report completed and attached to Patient Chart Mode of Transport Back to Unit: bed and accompanied by transporter See hemodialysis flowsheet for details of treatment. Evelyn Garcia RN [facility] 2023-03-19 16:26:32 Formatting of this n ote might be different from the original. Hemodialysis Plan of care reviewed r/t treatment time, UF goal. I reviewed care of AVF during tx. Pt updated during tx as needed. I reviewed possible side effects of HD tx, such as s/s of hypotension, weakness, dizziness, H/A, cramping (during tx and at rare times after tx), n/v, vision changes, CP or any other concerns. Patient acknowledge understanding of treatment plan. [facility] 2023-03-19 10:28:19 Formatting of this n ote might be different from the original. Problem: Respiratory Function - Impaired Goal: Able to cough effectively Outcome: Progressing as expected Goal: Adequate oxygenation Outcome: Progressing as expected Goal: Adequate work of breathing Outcome: Progressing as expected Problem: Procedure Routine Goal: Knowledge of procedure Outcome: Progressing as expected Problem: Fluid Volume - Imbalanced Goal: Absence of imbalanced fluid volume signs and symptoms Outcome: Progressing as expected Problem: Pain Goal: Control of pain at or below patient's documented comfort goal Outcome: Progressing as expected Goal: Reduction in pain sensation Outcome: Progressing as expected Problem: Discharge Planning Goal: Adequate for discharge Outcome: Progressing as expected Goal: Effective communication Outcome: Progressing as expected Problem: Falls, Risk of Goal: Absence of falls Outcome: Progressing as expected Vanessa Go RN [facility] 2023-03-18 10:33:53 Formatting of this n ote might be different from the original. Problem: Respiratory Function - Impaired Goal: Able to cough effectively Outcome: Progressing as expected Goal: Adequate oxygenation Outcome: Progressing as expected Goal: Adequate work of breathing Outcome: Progressing as expected Problem: Procedure Routine Goal: Knowledge of procedure Outcome: Progressing as expected Problem: Fluid Volume - Imbalanced Goal: Absence of imbalanced fluid volume signs and symptoms Outcome: Progressing as expected Problem: Pain Goal: Control of pain at or below patient's documented comfort goal Outcome: Progressing as expected Goal: Reduction in pain sensation Outcome: Progressing as expected Problem: Discharge Planning Goal: Adequate for discharge Outcome: Progressing as expected Goal: Effective communication Outcome: Progressing as expected Problem: Falls, Risk of Goal: Absence of falls Outcome: Progressing as expected Junaid Chen RN [facility] 2023-03-17 18:30:08 Formatting of this n ote might be different from the original. HEMODIALYSIS NURSING NOTE Number Hours: 3.0 hours Bath: Isolated UF Heparin: 1000 units pre and 1000 units mid tx. Access: left AVF forearm Net UF: 3000 mL Weight: pre 141 kg, post 138 kg bed scale Post BP 113/61 Post Pulse 84 Antibiotics/Medications Given: None Complications/Events of Treatment: UF goal adjusted per BP. Dr Fonseca (nephrology aware) UF goal lowered to 3 Liters. Completed treatment, denies any complaints. Handoff report completed and attached to Patient Chart Mode of Transport Back to Unit: bed, oxygen, and accompanied by transporter See hemodialysis flowsheet for details of treatment. AL Ibarra RN [facility] 2023-03-17 16:08:24 Formatting of this n ote might be different from the original. Problem: Procedure Routine Goal: Knowledge of procedure Outcome: Progressing as expected Hemodialysis: consent verification, pt identified by name & UH number by 2 staff members, call light in reach. Education: HD UF time & goal, s/s to report to healthcare team during and post treatment: Nausea/vomiting Muscle cramping SOB Chest pain Headache Low blood pressure Weakness Dizziness Blurred vision Bleeding at access site [facility] 2023-03-17 09:58:22 Formatting of this n ote might be different from the original. Problem: Respiratory Function - Impaired Goal: Able to cough effectively Outcome: Progressing as expected Goal: Adequate oxygenation Outcome: Progressing as expected Goal: Adequate work of breathing Outcome: Progressing as expected Problem: Procedure Routine Goal: Knowledge of procedure Outcome: Progressing as expected Problem: Fluid Volume - Imbalanced Goal: Absence of imbalanced fluid volume signs and symptoms Outcome: Progressing as expected Problem: Pain Goal: Control of pain at or below patient's documented comfort goal Outcome: Progressing as expected Goal: Reduction in pain sensation Outcome: Progressing as expected Problem: Discharge Planning Goal: Adequate for discharge Outcome: Progressing as expected Goal: Effective communication Outcome: Progressing as expected Problem: Falls, Risk of Goal: Absence of falls Outcome: Progressing as expected [facility] 2023-03-16 18:19:41 Formatting of this n ote might be different from the original. HEMODIALYSIS NURSING NOTE Number Hours: 4.0 hours Bath: Dialysate: 3K 3Ca+ Heparin: treatment 2000 units given Access: left AVF forearm Current Access Type: AV fistula Net UF 3000ml Pre Weight: DAR Post Weight: DAR Pre B/P 109/55, Post B/P 111/52 Antibiotics/Medications Given: midodrine 15 mg PO Complications/Events of Treatment: None, tolerated tx well Verbal report given primary nurse Mode of Transport Back to Unit: NA - patient done at bedside See hemodialysis flowsheet for details of treatment. Nara Plasencia RN [facility] 2023-03-16 14:29:46 Formatting of this n ote might be different from the original. Hemodialysis plan of care explained throughout tx r/t treatment time (4 hours) , UF goal (2-3 L ) with explanations. Also explained possible side effects of HD tx, such as s/s of hypotension, cramping, N/V, CP or any other concerns. Patient very lethargic, poor and infrequent responses to verbal stimulation; unable to acknowledge of treatment plan. Dali Mcdowell RN [facility] 2023-03-16 11:32:56 Formatting of this n ote might be different from the original. Problem: Respiratory Function - Impaired Goal: Able to cough effectively Outcome: Progressing as expected Goal: Adequate oxygenation Outcome: Progressing as expected Goal: Adequate work of breathing Outcome: Progressing as expected Problem: Procedure Routine Goal: Knowledge of procedure Outcome: Progressing as expected Lilia Davis RN [facility] 2023-03-14 20:18:28 Formatting of this n ote might be different from the original. POST HEMODIALYSIS NURSING NOTE Number Hours: 4 Bath: Dialysate: 2k/3Ca Heparin: N/A Access: Left Arm AVF Pre weight: 145.5kg Post weight: 144kg Net Ultrafiltrate: 1700ml Post BP 101/51 Post P 103 Medications Given: See MAR Complications/Events of Treatment: Line clotted 20 minutes into tx. About 250ml of blood lost. Circuit was changed and tx restarted. Tx completed as ordered. Blood returned. Velarde removed from AVF site and pressure held until hemostasis was achieved. No acute distress noted at this time. Mode of Transport Back to Unit: HD done @ bs Verbal handoff report to YOEL Howell See hemodialysis flowsheet for details of treatment. Jose Kwong RN [facility] 2023-03-14 15:45:25 Formatting of this n ote might be different from the original. Problem: Procedure Routine Goal: Knowledge of procedure Outcome: Progressing as expected [facility] 2023-03-11 14:33:21 Formatting of this n ote might be different from the original. Spoke with Lurdes [facility] Nurse. Lurdes states that patient BP is low (as written below) pulse is 109 and patient is lethargic and going in and out. Patient is not having SOB or CP. Lurdes states patient did have dialysis yesterday and was given a medication there to increase blood pressure. Advised that patient go to the ER for evaluation and treatment due to symptomatic hypotension. Lurdes verbalizes understanding. Lisa Ramirez RN [facility] 2023-03-11 12:19:05 Formatting of this n ote might be different from the original. Lurdes with [facility] home health called, patient with manual blood pressure of 78/52 with pulse 109 and PT/INR =OR > than 8.0. I transferred the call to Lisa Ramirez RN La Toney MA [facility] 2023-03-09 15:10:09 Formatting of this n ote might be different from the original. Notified Irina with [facility] per Dr. Ramirez he will follow patient for . She verbalized understanding Nida Fall LVN 03/09/2023 3:10 PM Nida Fall LVN [facility] 2023-03-09 11:42:49 Formatting of this n ote might be different from the original. Yes [facility] 2023-03-09 08:19:40 Formatting of this n ote might be different from the original. [facility] is calling want to know if Dr Ramirez will follow home health Delicia Avila [facility] 2023-02-23 16:22:06 Formatting of this n ote might be different from the original. Received Radiology service report from [facility]. Placed in providers basket. Nena Olguin [facility] 2023-02-22 14:31:00 [id number] [facility] [id number] [place] [id number] PATIENT NAME: IRA RAYA ADMIT DATE: 02/21/23 ACCOUNT NO: [id number] ROOM NO: AGE: 67 REPORT TYPE: OPERATIVE REPORT SEX: M ADMITTING PHYSICIAN: ATTENDING PHYSICIAN: Hector Fuentes MD OPERATION DATE: 02/21/2023 PREOPERATIVE DIAGNOSIS: Partial thrombosed left arm AV fistula. POSTOPERATIVE DIAGNOSIS: Partial thrombosed left arm AV fistula. SURGEON: Hector Fuentes MD HORTICULTURE TEACHER: Ernesto. PROCEDURES PERFORMED: Left upper extremity AV fistulogram, thrombectomy, and balloon angioplasty of both the peripheral and central venous segments. Intra-arterial infusion of 14 mg of tPA. POSTPROCEDURE FINDINGS: The patient has no residual thrombus in the AV fistula, no inflow disease was identified. The patient has 2 aneurysmal segments that are patent without thrombus within them. The cephalic vein in the forearm and upper arm are patent as is the cephalic arch. The patient had subacute thrombus in multiple locations, which was morcellated and suctioned. There was some central venous component of thrombus, which was also suctioned. He has a patent subclavian vein, innominate vein, and superior vena cava without any residual flow-limiting stenosis. ANESTHESIA TYPE: Physician monitored conscious sedation for 100 minutes. There is a separate qualified sedation nurse present and available for safe conduct of physician monitored conscious sedation. DRUGS ADMINISTERED: 1 mg of Versed, 25 mcg of fentanyl. CONTRAST DOSE: 150 mL of contrast. ESTIMATED BLOOD LOSS: 300 mL INDICATIONS FOR PROCEDURE: This is a 67-year-old man who presented to our hospital with malfunction of his hemodialysis access. He is brought electively to the tailings dam laborer for intervention and possible endovascular management/thrombectomy of his AV access or placement of tunneled dialysis catheter. Risks and benefits explained to the patient prior to obtaining informed consent. DESCRIPTION OF PROCEDURE: The patient was brought to the tailings dam laborer, laid supine PATIENT NAME: IRA RAYA on the table, prepped and draped in the usual sterile fashion using ChloraPrep. Time-out performed identifying the patient and laterality prior to proceeding. Using ultrasound, I visualized the left brachiocephalic fistula. The patient has on ultrasound, a patent and compressible proximal fistula. The anastomosis appears to be patent. There are 2 aneurysmal segments. One of them has no thrombus in them and then the second one that is more cranial, does have some thrombus in there. The cephalic vein, otherwise has what appears to be laminar thrombus throughout. I accessed with an ultrasound in both antegrade and retrograde fashion. I subsequently placed an 8-Wolof sheath in an antegrade fashion within the area of thrombosed aneurysm and in the cephalic vein. I then placed a wire across all of this and got the wire into the superior vena cava. I performed a percutaneous suction thrombectomy with the Penumbra device with some recovery of thrombus. I had to perform multiple passes going into the cephalic vein in the upper arm into the cephalic arch and into the subclavian vein. Eventually, I recovered a significant amount of thrombus. I performed a subsequent fistulogram, which now demonstrates patency of that entire system. There did appear to be cephalic arch disease as well as most of the thrombus in the subclavian vein, which I adjunctively treated with balloon angioplasty. Angioplasty of the subclavian vein was performed in the central component. Then, angioplasty of the peripheral component was performed as well. I then performed inflow angiogram, which demonstrates normal anastomosis without any inflow stenosis that I could identify. I then performed a completion fistulogram, again documenting total patency of the AV fistula without any thrombus in either of the aneurysmal components. I then placed some pursestring sutures around the access site and then removed the sheath. The patient tolerated the procedure well. Dictated By: Hector Fuentes MD Date Dictated: 02/22/2023 14:31:11 Date Transcribed: 02/22/2023 16:22:38 /SUB Receipt ID: [id number] Authenticated by Hector Fuentes MD On 02/23/2023 08:57:45 AM at 0857 PATIENT NAME: IRA RAYA [facility] 2023-02-21 13:55:00 [id number] [address] PATIENT NAME: IRA RAYA ADMIT DATE: 02/21/23 ACCOUNT NO: [id number] ROOM NO: AGE: 67 REPORT TYPE: eELECTROCARDIOGRAM SEX: M ADMITTING PHYSICIAN: ATTENDING PHYSICIAN: Hector Fuentes MD Order: [id number] Test Reason : pre procedure Test Date/Time Stamp: TueFeb 21 2023 13:55:35 Blood Pressure : / mmHG Vent. Rate : 082 BPM Atrial Rate : 000 BPM P-R Int : 000 ms QRS Dur : 098 ms QT Int : 378 ms P-R-T Axes : 000 063 019 degrees QTc Int : 441 ms Atrial fibrillation with premature ventricular or aberrantly conducted complexes Low voltage QRS Septal infarct , age undetermined Abnormal ECG No previous ECGs available Confirmed by DAQUAN SCHULTZ MD ([id number]) on 03/06/2023 6:51:19 PM Referred By: Hector Fuentes Confirmed by:DAQUAN SCHULTZ MD at 1851 PATIENT NAME: IRA RAYA [facility] 2023-02-19 14:40:00 [facility]) Vascular Surgery Consult Note REPORT#:[id number] REPORT STATUS: Signed DATE:02/19/23 TIME:1440 PATIENT: IRA RAYA HIBBS UNIT #: [id number] ROOM/BED: [place] [id number] : 54 AGE: 67 SEX: M ATTEND: Saqib Hall MD ADM AUTHOR: Sunny Terrell MD * ALL edits or amendments must be made on the electronic/computer document * History of Present Illness Requesting Clinician: Erlin George MD ( ED) Reason for consult: Dysfunctional left forearm arteriovenous fistula; missed dialysis HPI: Patient is a 67-year-old man with a history of hypertension, atrial fibrillation , and dysfunctional left forearm radiocephalic arteriovenous fistula. The patient reports that he went to dialysis yesterday but they were unable to perform dialysis. He was instructed to come to the emergency department by his dialysis center. History - Adult longitudinal Past medical history: Reports: Atrial fibrillation, Hypertension, Kidney disease/stones. Additional surgical history: appendectomy, cholecystectomy Family history: Reports: Hypertension. Alcohol use: Denies EtOH use Drug use: Denies recreational drugs Smoking status for patients 13 years old or older: Former Smoker Other social history: Local resident, Good social support Additional social history: Medications: Home Medications: Medication Dose/Rte/Freq Days Qty Entered Last Max Daily Dose Reviewed METOPROLOL TARTRATE TAKE 1 TABLET BY 11/17/21 (LOPRESSOR) MOUTH TWICE DAILY - 1515 Strength: 100 MG TAB SIG Obtained From Mandeep APIXABAN (ELIQUIS) TAKE 1 TABLET BY 11/17/21 02/19/23 Strength: 2.5 MG TAB MOUTH TWICE DAILY - 1515 1126 SIG Obtained From Mandeep ALLOPURINOL (ZYLOPRIM) TAKE 1 TABLET BY 11/17/21 02/19/23 Strength: 100 MG TAB MOUTH ONCE DAILY - 1515 1128 SIG Obtained From Mandeep DOCUSATE SODIUM 100 MG PO BID 02/19/23 02/19/23 (COLACE) 1125 1126 Strength: 100 MG CAP SIMVASTATIN 40 MG PO BEDTIME 02/19/23 Strength: 20 MG TAB 1127 ALLOPURINOL (ZYLOPRIM) 100 MG PO DAILY 02/19/23 Strength: 100 MG TAB 1128 FLUDROCORTISONE 0.1 MG PO DAILY 02/19/23 02/19/23 ACETATE 1129 1129 (FLORINEF) Strength: 0.1 MG TAB OMEPRAZOLE ER 40 MG PO DAILY 02/19/23 (PriLOSEC) Strength: 40 MG CAP.DR 1130 MESALAMINE ER 500 MG PO QID 4 02/19/23 02/19/23 (PENTASA) Strength: 500 MG 1140 1140 CAP.SA GABAPENTIN (NEURONTIN) 300 MG PO BEDTIME 02/19/23 02/19/23 Strength: 300 MG CAP 1141 1142 FAMOTIDINE (PEPCID) 20 MG PO BEDTIME 02/19/23 02/19/23 Strength: 20 MG TAB 1142 1142 traMADol (ULTRAM) 50 MG PO 02/19/23 02/19/23 Strength: 50 MG TAB Q6H PRN PRN ACUTE 1142 1143 PAIN AMOXICILLIN/CLAV K 875 MG PO Q12H 02/19/23 (AUGMENTIN 875/125 MG) 1144 Strength: 875 MG-125 MG TAB MIDODRINE (PROAMATINE) 10 MG PO Q8H 1 04/13/21 02/19/23 Strength: 5 MG TAB 1458 1143 APIXABAN (ELIQUIS) 5 MG PO BID 1 04/13/21 Strength: 5 MG TAB 1458 AMIODARONE (PACERONE) 400 MG PO BID 1 04/13/21 Strength: 200 MG TAB 1458 SEVELAMER CARBONATE 800 MG PO C MEALS 1 04/13/21 (RENVELA) 1459 Strength: [address] 40 MG PO 1 04/13/21 (PROTONIX) DAILY@0600 1459 Strength: 40 MG TAB. CINACALCET (SENSIPAR) 30 MG PO BEDTIME 1 04/13/21 Strength: 30 MG TAB 1459 HYDROCORTISONE 20 MG PO BID 1 04/13/21 02/19/23 (CORTEF) 1500 1128 Strength: 20 MG TAB HYDROcodone/APAP 1 TAB PO 12 11/18/21 (HYDROcodone/APAP Q6H PRN PRN acute 1013 5/325) Strength: 1 TAB TAB pain CLINDAMYCIN HCL 300 MG PO Q6H 7 28 11/18/21 (CLEOCIN) 1013 Strength: 300 MG CAP DOXYCYCLINE HYCLATE 100 MG PO TUTHSA 6 10/12/21 (VIBRAMYCIN) 1209 Strength: 100 MG CAP CEFDINIR (OMNICEF) 300 MG PO TUTHSA 6 10/12/21 Strength: 300 MG CAP 1211 Current Hospital Medications: Blood Derivatives Sig/Sue Start time Last Medication Dose Route Stop Time Status Admin Albumin Human 25 GM BOLUS PRN 02/19 1200 AC (ALBUMINAR-25% 12.5 IV GM/50 ML) Electrolytic, Caloric, And Mallika Sig/Sue Start time Last Medication Dose Route Stop Time Status Admin Mannitol 12.5 GM BOLUS PRN 02/19 1200 AC (MANNITOL 25%) IV 03/21 1159 Sodium Chloride 2,000 ML .Q24H PRN 02/19 1200 AC (0.9% Sodium IV 03/21 1159 Chloride) Hormones And Synthetic Substit Sig/Sue Start time Last Medication Dose Route Stop Time Status Admin Insulin Human Lispro 0 Q6H 02/19 1145 AC (HUMALOG) SUBQ 02/20 1031 Allergies: Coded Allergies: amlodipine (From NORVASC) (Mild, RASH 02/19/23) amoxicillin (From AUGMENTIN) (Mild, ABD PAIN 02/19/23) clavulanic acid (From AUGMENTIN) (Mild, ABD PAIN 02/19/23) Uncoded Allergies: MORVASC (Severe, SWELLING 12/08/21) 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 Respiratory: Denies: SOB. Cardiovascular: Denies: chest pain. All systems rev neg: except as marked Objective VS/I O: Last Documented: Result Date Time Pulse Ox 93 02/19 915 B/P 121/61 02/19 915 B/P Mean 81 02/19 915 O2 Delivery Room air 02/19 915 Temp 98.5 02/19 915 Pulse 87 02/19 915 Resp 24 02/19 915 PATIENT WEIGHT: Weight (lb): Weight (oz): Weight (kg): 148.000 General appearance: alert, awake, pleasant, conversational HEENT: anicteric, sclera clear Neck: full range of motion Cardiovascular: irregular rhythm Respiratory: aerating well, symmetric expansion Abdomen: soft, non-tender Extremities: moves all, Left forearm AVF with punctate ulcerated aneurysm x 2; no thrill., left shoulder bruising Pulse assess: Vascular pulse assess: Palpated: R brachial, L brachial. Neuro/GRAIN ELEVATOR MOTOR STARTER: gait not tested, alert, oriented X 3, normal speech Skin: normal color, normal temperature Lymphatics: no lymphadenopathy Findings/Data: Laboratory Tests 02/19 845 Chemistry Sodium (134 - 147 mmol/L) 131 L Potassium (3.4 - 5.0 mmol/L) 4.8 Chloride (100 - 108 mmol/L) 93 L Carbon Dioxide (21 - 32 mmol/L) 23 Anion Gap (4.0 - 15.0 GAP calc) 15.0 BUN (7 - 18 MG/DL) 115 H Creatinine (0.8 - 1.3 MG/DL) 15.6 H Glomerular Filtr Rate (>60 estGFR) 3 L Glucose (70 - 110 MG/DL) 113 H Calcium (8.5 - 10.1 MG/DL) 8.3 L Total Bilirubin (0.2 - 1.2 MG/DL) 0.70 AST (15 - 37 Unit/L) 29 ALT (12 - 78 Unit/L) 45 Total Alk Phosphatase (50 - 136 Unit/L) 119 Total Protein (6.4 - 8.2 G/DL) 6.2 L Albumin (3.4 - 5.0 G/DL) 2.6 L Globulin (GM/dL) 3.6 Albumin/Globulin Ratio (1.2 - 2.2 RATIO) 0.7 L Laboratory Tests 02/19 845 Hematology WBC (3.5 - 11.0 K/mm3) 13.2 H RBC (4.70 - 6.10 M/mm3) 6.21 H Hgb (12.3 - 15.9 G/DL) 16.7 H Hct (35.8 - 46.7 %) 51.9 H MCV (86.3 - 98.9 Fl) 83.6 L MCH (28.9 - 34.4 pg) 26.9 L MCHC (32.1 - 34.5 G/DL) 32.2 RDW (11.5 - 14.5 SD) 19.3 H Plt Count (150 - 450 K/mm3) 170 MPV (7.0 - 9.6 fL) 10.80 H Neut % (Auto) (40 - 76 %) 82.3 H Lymph % (Auto) (20.5 - 51.1 %) 3.6 L Haralson % (Auto) (1.7 - 9.3 %) 11.6 H Eos % (Auto) (0.0 - 6.0 %) 0.5 Baso % (Auto) (0.0 - 2.0 %) 0.4 Neut # (Auto) (1.8 - 7.6 K/mm3) 10.9 H Lymph # (Auto) (0.6 - 3.0 K/mm3) 0.5 L Haralson # (Auto) (0.2 - 1.5 K/mm3) 1.5 Eos # (Auto) (0.0 - 0.4 K/mm3) 0.1 Baso # (Auto) (0.0 - 0.2 K/mm3) 0.1 Abs Immat Gran (auto) (0.00 - 0.03 x10 3/uL) 0.21 H Add Manual Diff (CRITERIA DIFF/SCN) NO Immature Gran % (0.0 - 5.0 %) 1.6 Nucleated RBC % (0.0 - 1.0 /100WBC%) 0.2 Radiology data: Recent Impressions: RADIOLOGY - XR CHEST 1 V 02/19 0932 Report Impression - Status: SIGNED Entered: 02/19/2023 0946 IMPRESSION: No acute cardiopulmonary process. Impression By: Neri Cuba M.D. ULTRASOUND - DUP VEIN UNI LT 02/19 1036 Report Impression - Status: SIGNED Entered: 02/19/2023 1240 IMPRESSION: Brachiocephalic fistula noted with nonocclusive thrombus noted at the anastomosis. Nonocclusive thrombus noted within the mid and distal left brachiocephalic vein. LOCATION: B2 Impression By: Neri Cuba M.D. Results: labs reviewed, US results reviewed Diagnosis, Assessment Plan Free Text A P: Patient is a 67-year-old man with hypertension, atrial fibrillation on Eliquis, end-stage renal disease on dialysis, clotted aneurysmal left forearm arteriovenous fistula. I discussed with the patient and that the fistula will likely need to be revised due to his punctate ulcers and skin changes over the fistula aneurysms. There are echogenic filling defects in the outflow arm and proximal forearm cephalic vein consistent with acute on chronic thrombosis. Per nephrology, there is no need for urgent dialysis. I will arrange for outpatient arteriovenous fistula declot and possible TDC placement by my colleague, Dr. Hector Fuentes, on 02/21/2023. I will have him hold Eliquis until the procedure. Of note, patient wishes to be contacted at [phone]. Thank you for allowing me to participate in the care of this patient. Sunny Terrell MD [facility] Vascular o. [phone] c [phone] at 1502 RPT #: [id number] END OF REPORT [facility] 2023-02-19 11:30:00 [facility] ([facility]) Nephrology Consultation Note REPORT#:[id number] REPORT STATUS: Signed DATE:02/19/23 TIME:1130 PATIENT: IRA RAYA UNIT #: [id number] ROOM/BED: [place] [id number] : 54 AGE: 67 SEX: M ATTEND: Saqib Hall MD ADM AUTHOR: Genaro Gupta MD * ALL edits or amendments must be made on the electronic/computer document * History of Present Illness Reason for consult: ESRD. HPI: 67-year-old male with history of ESRD on hemodialysis, hypertension, admitted with clotted access. Patient is ESRD on hemodialysis, hemodialysis Tuesday and Tuesday. Patient missed hemodialysis today because of clotted access. Labs reviewed. Renal consulted for inpatient dialysis. History - Adult longitudinal Past medical history: Reports: Atrial fibrillation, Hypertension, Kidney disease/stones. Additional medical history: HTN ESRD on dialysis Additional surgical history: appendectomy, cholecystectomy Additional family history: noncontributory Alcohol use: Denies EtOH use Drug use: Denies recreational drugs Smoking status for patients 13 years old or older: Former Smoker Other social history: Local resident, Good social support Allergies: Coded Allergies: amlodipine (From NORVASC) (Mild, RASH 02/19/23) amoxicillin (From AUGMENTIN) (Mild, ABD PAIN 02/19/23) clavulanic acid (From AUGMENTIN) (Mild, ABD PAIN 02/19/23) Uncoded Allergies: MORVASC (Severe, SWELLING 12/08/21) Occupation: Reitred Review of Systems Free Text ROS Notes Free Text ROS Notes: 10 points review of systems performed and documented in subjective, otherwise negative. Objective General VS/I O: Vital Signs: Date Time Temp Pulse Resp B/P B/P Pulse O2 O2 Flow FiO2 Mean Ox Delivery Rate 02/19 0915 36.9 87 24 121/61 81 93 Room air PATIENT WEIGHT: Weight (lb): Weight (oz): Weight (kg): 148.000 Medications: Active Meds + DC'd Last 24 Hrs Albumin Human (ALBUMINAR-25% 12.5 GM/50 ML) 25 GM BOLUS PRN IV Mannitol (MANNITOL 25%) 12.5 GM BOLUS PRN IV Sodium Chloride (0.9% Sodium Chloride) 2,000 ML .Q24H PRN IV Insulin Human Lispro (HUMALOG) 0 Q6H SUBQ Physical Exam General appearance: awake Head/eyes: normocephalic ENT: normal nose Neck: no JVD C-Spine clearance: no midline tenderness Cardiovascular: no murmur Respiratory: clear to auscultation Abdomen: non-tender, soft Genitourinary: no bladder distention Extremities: no edema Musculoskeletal: full range of motion, normal inspection Neuro/GRAIN ELEVATOR MOTOR STARTER: alert, oriented X 3 Results Findings/Data: Laboratory Tests 02/19 0845 Chemistry Sodium (134 - 147 mmol/L) 131 L Potassium (3.4 - 5.0 mmol/L) 4.8 Chloride (100 - 108 mmol/L) 93 L Carbon Dioxide (21 - 32 mmol/L) 23 Anion Gap (4.0 - 15.0 GAP calc) 15.0 BUN (7 - 18 MG/DL) 115 H Creatinine (0.8 - 1.3 MG/DL) 15.6 H Glomerular Filtr Rate (>60 estGFR) 3 L Glucose (70 - 110 MG/DL) 113 H Calcium (8.5 - 10.1 MG/DL) 8.3 L Total Bilirubin (0.2 - 1.2 MG/DL) 0.70 AST (15 - 37 Unit/L) 29 ALT (12 - 78 Unit/L) 45 Total Alk Phosphatase (50 - 136 Unit/L) 119 Total Protein (6.4 - 8.2 G/DL) 6.2 L Albumin (3.4 - 5.0 G/DL) 2.6 L Globulin (GM/dL) 3.6 Albumin/Globulin Ratio (1.2 - 2.2 RATIO) 0.7 L Laboratory Tests 02/19 0845 Hematology WBC (3.5 - 11.0 K/mm3) 13.2 H RBC (4.70 - 6.10 M/mm3) 6.21 H Hgb (12.3 - 15.9 G/DL) 16.7 H Hct (35.8 - 46.7 %) 51.9 H MCV (86.3 - 98.9 Fl) 83.6 L MCH (28.9 - 34.4 pg) 26.9 L MCHC (32.1 - 34.5 G/DL) 32.2 RDW (11.5 - 14.5 SD) 19.3 H Plt Count (150 - 450 K/mm3) 170 MPV (7.0 - 9.6 fL) 10.80 H Neut % (Auto) (40 - 76 %) 82.3 H Lymph % (Auto) (20.5 - 51.1 %) 3.6 L Haralson % (Auto) (1.7 - 9.3 %) 11.6 H Eos % (Auto) (0.0 - 6.0 %) 0.5 Baso % (Auto) (0.0 - 2.0 %) 0.4 Neut # (Auto) (1.8 - 7.6 K/mm3) 10.9 H Lymph # (Auto) (0.6 - 3.0 K/mm3) 0.5 L Haralson # (Auto) (0.2 - 1.5 K/mm3) 1.5 Eos # (Auto) (0.0 - 0.4 K/mm3) 0.1 Baso # (Auto) (0.0 - 0.2 K/mm3) 0.1 Abs Immat Gran (auto) (0.00 - 0.03 x10 3/uL) 0.21 H Add Manual Diff (CRITERIA DIFF/SCN) NO Immature Gran % (0.0 - 5.0 %) 1.6 Nucleated RBC % (0.0 - 1.0 /100WBC%) 0.2 Radiology data: Recent Impressions: RADIOLOGY - XR CHEST 1 V 02/19 0932 Report Impression - Status: SIGNED Entered: 02/19/2023 0946 IMPRESSION: No acute cardiopulmonary process. Impression By: Neri Cuba M.D. ULTRASOUND - DUP VEIN UNI LT 02/19 1036 Report Impression - Status: SIGNED Entered: 02/19/2023 1240 IMPRESSION: Brachiocephalic fistula noted with nonocclusive thrombus noted at the anastomosis. Nonocclusive thrombus noted within the mid and distal left brachiocephalic vein. LOCATION: B2 Impression By: Neri Cuba M.D. Diagnosis, Assessment Plan Free Text DxA P Notes Free Text DxA P Notes: 1. ESRD on hemodialysis. Hemodialysis on Tuesday. 2. Clotted AV fistula. 3. Hypertension. 4. Chronic anemia. Recommendations. Renal restriction diet. Limit fluid to 1 L a day. No need for emergent dialysis today. Follow vascular surgery recommendation. Thank you for consultation, any question please call [phone]. at [phone] [facility] #: [phone] END OF REPORT [facility] 2023-02-19 09:46:00 [facility] ([facility]) EMERGENCY PROVIDER REPORT REPORT#:[id number] REPORT STATUS: Signed DATE:02/19/23 TIME:945 PATIENT: IRA RAYA UNIT #: [id number] ROOM/BED: [place] [id number] : 54 AGE: 67 SEX: M PCP PHYS: Ira Ramirez MD SERVICE AUTHOR: Erlin George MD * ALL edits or amendments must be made on the electronic/computer document * HPI-General Illness Free Text HPI Notes Free Text HPI Notes Patient presents to emergency department for dialysis fistula occlusion. Patient went to dialysis today but despite accessing fistula they were unable to perform dialysis. No fever chills nausea vomiting diarrhea chest pain shortness of breath abdominal pain. Last dialysis was 2 days ago. Nothing makes symptoms better nothing makes symptoms worse. Patient states fistula is been in place since 2005. General Initial Greet Date/Time 02/19/23917 Presentation Chief Complaint __ (dialysis fistula malfunction) Review of Systems ROS Statements All systems rev neg except as marked. Review of Systems Constitutional Denies: Chills, Fatigue, Fever, Malaise. Respiratory Denies: Cough, non-productive, Cough, productive, Shortness of breath, Wheezing. Cardiovascular Denies: Chest pain, Dyspnea on exertion, Edema, Orthopnea. GI Denies: Abdominal pain, Anorexia, Nausea, Vomiting. Musculoskeletal Denies: Back pain, Extremity pain, Extremity swelling, Joint pain, Joint swelling. Skin Denies: Abrasion, Abscess, Burn, Contusion, Diaphoresis. Neurologic Reports: Generalized weakness. Denies: Abnormal movement, Bladder dysfunction, Bowel dysfunction, Change LOC, Dizziness, Focal weakness. Past Medical History - Adult Stated Complaint NEEDS CATHETER TO GET DIALYSIS DONE Allergies Coded Allergies: amlodipine (From NORVASC) (Mild, RASH 02/19/23) amoxicillin (From AUGMENTIN) (Mild, ABD PAIN 02/19/23) clavulanic acid (From AUGMENTIN) (Mild, ABD PAIN 02/19/23) Uncoded Allergies: MORVASC (Severe, SWELLING 12/08/21) Home Medications Active Scripts MIDODRINE (PROAMATINE) 10 MG PO Q8H MIDODRINE (PROAMATINE) 10 MG PO Q8H #1 TAB Prov: 04/13/21 APIXABAN (ELIQUIS) 5 MG PO BID APIXABAN (ELIQUIS) 5 MG PO BID #1 TAB Prov: 04/13/21 AMIODARONE (PACERONE) 400 MG PO BID AMIODARONE (PACERONE) 400 MG PO BID #1 TAB Prov: 04/13/21 SEVELAMER CARBONATE (RENVELA) 800 MG PO C MEALS SEVELAMER CARBONATE (RENVELA) 800 MG PO C MEALS #1 TAB Prov: 04/13/[address] (PROTONIX) 40 MG PO DAILY@[address] (PROTONIX) 40 MG PO DAILY@0600 #1 TAB Prov: 04/13/21 CINACALCET (SENSIPAR) 30 MG PO BEDTIME CINACALCET (SENSIPAR) 30 MG PO BEDTIME #1 TAB Prov: 04/13/21 HYDROCORTISONE (CORTEF) 20 MG PO BID HYDROCORTISONE (CORTEF) 20 MG PO BID #1 TABS Prov: 04/13/21 HYDROcodone/APAP (HYDROcodone/APAP 5/325) 1 TAB PO Q6H PRN PRN acute pain HYDROcodone/APAP (HYDROcodone/APAP 5/325) 1 TAB PO Q6H PRN PRN acute pain # 12 TABS Prov: 11/18/21 CLINDAMYCIN HCL (CLEOCIN) 300 MG PO Q6H 7 Days #28 CAPS Prov: 11/18/21 DOXYCYCLINE HYCLATE (VIBRAMYCIN) 100 MG PO TUTHSA DOXYCYCLINE HYCLATE (VIBRAMYCIN) 100 MG PO TUTHSA #6 CAPS Prov: 10/12/21 CEFDINIR (OMNICEF) 300 MG PO TUTHSA CEFDINIR (OMNICEF) 300 MG PO TUTHSA #6 CAPS Prov: 10/12/21 Reported Medications METOPROLOL TARTRATE (LOPRESSOR) APIXABAN (ELIQUIS) ALLOPURINOL (ZYLOPRIM) DOCUSATE SODIUM (COLACE) 100 MG PO BID SIMVASTATIN 40 MG PO BEDTIME ALLOPURINOL (ZYLOPRIM) 100 MG PO DAILY FLUDROCORTISONE ACETATE (FLORINEF) 0.1 MG PO DAILY OMEPRAZOLE ER (PriLOSEC) 40 MG PO DAILY MESALAMINE ER (PENTASA) 500 MG PO QID MESALAMINE ER (PENTASA) 500 MG PO QID #4 GABAPENTIN (NEURONTIN) 300 MG PO BEDTIME FAMOTIDINE (PEPCID) 20 MG PO BEDTIME traMADol (ULTRAM) 50 MG PO Q6H PRN PRN ACUTE PAIN AMOXICILLIN/CLAV K (AUGMENTIN 875/125 MG) 875 MG PO Q12H Past Medical History: Reports: Atrial fibrillation, Hypertension, Kidney disease/stones. 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 Physical Exam Vital Signs Vital Signs First Documented: Result Date Time Pulse Ox 93 02/19 0915 B/P 121/61 02/19 0915 B/P Mean 81 02/19 0915 O2 Delivery Room air 02/19 0915 Temp 98.5 02/19 0915 Pulse 87 02/19 0915 Resp 24 02/19 0915 Last Documented: Result Date Time Pulse Ox 90 / 1015 B/P 106/59 / 1015 B/P Mean 74 / 1015 O2 Delivery Room air 02/19 1015 Pulse 80 / 1015 Resp 22 02/19 1015 Temp 98.5 02/19 0915 Review of Vital Signs Reviewed Basic Physical Exam Basic PE GEN: Well appearing/NAD, HEAD: Atraumatic/NC, EYES: PERRL, conj clear, ENT: Membranes moist, NECK: Supple, RESP: No resp distress, CV: Reg rate rhythm, EXT: No gross abnormality, SKIN: No rashes, warm/dry, NEURO: alert oriented, NEURO: gross movement NL Physical Exam General/Const General/Const Awake, Alert, No acute distress, Well appearing, Well developed MS Head Head Atraumatic, Normocephalic Resp/Chest Respiratory/Chest Atraumatic, Breath sounds NL, Breath sounds = bilat, No respiratory distress, No rales, No rhonchi Cardiovascular Cardiovascular Heart rate NL, Regular rhythm, Cap refill not delayed Abdomen/GI Abdomen/GI Atraumatic, Soft, Non-tender, No distention MS Wrist/Hand Text/Dict Note Dialysis fistula present in left forearm with palpable thrill Interpretation Diagnostics Lab Results Interpretation Results Laboratory Tests 02/19/2345: [Embedded Image Not Available] Laboratory Tests: 02/19 845 Chemistry Sodium (134 - 147 mmol/L) 131 L Potassium (3.4 - 5.0 mmol/L) 4.8 Chloride (100 - 108 mmol/L) 93 L Carbon Dioxide (21 - 32 mmol/L) 23 Anion Gap (4.0 - 15.0 GAP calc) 15.0 BUN (7 - 18 MG/DL) 115 H Creatinine (0.8 - 1.3 MG/DL) 15.6 H Glomerular Filtr Rate (>60 estGFR) 3 L Glucose (70 - 110 MG/DL) 113 H Calcium (8.5 - 10.1 MG/DL) 8.3 L Total Bilirubin (0.2 - 1.2 MG/DL) 0.70 AST (15 - 37 Unit/L) 29 ALT (12 - 78 Unit/L) 45 Total Alk Phosphatase (50 - 136 Unit/L) 119 Total Protein (6.4 - 8.2 G/DL) 6.2 L Albumin (3.4 - 5.0 G/DL) 2.6 L Globulin (GM/dL) 3.6 Albumin/Globulin Ratio (1.2 - 2.2 RATIO) 0.7 L Hematology WBC (3.5 - 11.0 K/mm3) 13.2 H RBC (4.70 - 6.10 M/mm3) 6.21 H Hgb (12.3 - 15.9 G/DL) 16.7 H Hct (35.8 - 46.7 %) 51.9 H MCV (86.3 - 98.9 Fl) 83.6 L MCH (28.9 - 34.4 pg) 26.9 L MCHC (32.1 - 34.5 G/DL) 32.2 RDW (11.5 - 14.5 SD) 19.3 H Plt Count (150 - 450 K/mm3) 170 MPV (7.0 - 9.6 fL) 10.80 H Neut % (Auto) (40 - 76 %) 82.3 H Lymph % (Auto) (20.5 - 51.1 %) 3.6 L Haralson % (Auto) (1.7 - 9.3 %) 11.6 H Eos % (Auto) (0.0 - 6.0 %) 0.5 Baso % (Auto) (0.0 - 2.0 %) 0.4 Neut # (Auto) (1.8 - 7.6 K/mm3) 10.9 H Lymph # (Auto) (0.6 - 3.0 K/mm3) 0.5 L Haralson # (Auto) (0.2 - 1.5 K/mm3) 1.5 Eos # (Auto) (0.0 - 0.4 K/mm3) 0.1 Baso # (Auto) (0.0 - 0.2 K/mm3) 0.1 Abs Immat Gran (auto) (0.00 - 0.03 x10 3/uL) 0.21 H Add Manual Diff (CRITERIA DIFF/SCN) NO Immature Gran % (0.0 - 5.0 %) 1.6 Nucleated RBC % (0.0 - 1.0 /100WBC%) 0.2 Microbiology: Date/Time Procedure - Status Source Growth 02/19 1132 MRSA Screen - ORD NASAL Recent Impressions: RADIOLOGY - XR CHEST 1 V 02/19 0932 Report Impression - Status: SIGNED Entered: 02/19/2023 0946 IMPRESSION: No acute cardiopulmonary process. Impression By: Neri Cuba M.D. ULTRASOUND - DUP VEIN UNI LT 02/19 1036 Report Impression - Status: SIGNED Entered: 02/19/2023 1240 IMPRESSION: Brachiocephalic fistula noted with nonocclusive thrombus noted at the anastomosis. Nonocclusive thrombus noted within the mid and distal left brachiocephalic vein. LOCATION: B2 Impression By: Neri Cuba M.D. ECG #1 Interpretation ECG Documented in MUSE Yes Date 02/19/23 Time 0944 Interpreted by Independently interpreted, ED physician NL ECG Interpretation Normal rate, No acute ischemic changes, No STEMI, Adequate tracing Rate 89 Rhythm Atrial fibrillation Re-Evaluation MDM Free Text MDM Notes Free Text MDM Notes Patient presents to emergency department for dialysis fistula malfunction. Patient evaluated in emergency department and found to have no significant electrolyte abnormality on lab testing. Dr. Tony Douglas (nephrology) and Dr. Terrell (vascular surgery) evaluated patient and vascular surgeon stated patient could be discharged today and return on Tuesday for fistula repair. Nephrology agreed with this. Patient discharged in stable condition with instructions to follow-up as scheduled. ED Course Medication(s) Ordered Medication(s) Ordered: Hormones And Synthetic Substit Sig/Sue Start time Last Medication Dose Route Stop Time Status Admin Insulin Human Lispro 0 Q6H 02/19 1145 AC SUBQ 02/20 1031 Differential Diagnosis Differential Diagnosis Medical clearance, Pneumonia, fluid overload, hyperkalemia, anemia. diaysis fistula malfunction Patient Discharge Departure Vital Signs/Condition Vital Signs First Documented: Result Date Time Pulse Ox 93 02/19 0915 B/P 121/61 / 0915 B/P Mean 81 / 0915 O2 Delivery Room air 02/19 0915 Temp 98.5 02/19 0915 Pulse 87 02/19 0915 Resp 24 02/19 0915 Last Documented: Result Date Time Pulse Ox 90 02/19 1015 B/P 106/59 / 1015 B/P Mean 74 / 1015 O2 Delivery Room air 02/19 1015 Pulse 80 / 1015 Resp 22 02/19 1015 Temp 98.5 02/19 0915 All vital signs available at the time of this entry have been reviewed. Clinical Impression Clinical Impression Primary Impression: Dialysis AV fistula malfunction Disposition Decision Discharge )( Discharged to Home Yes )( Time 1211 )( Date 02/19/23 Discharge/Care Plan Patient Instructions ED Hemodialysis Access Bleeding Referrals Provider Referral: Sunny Terrell MD Address: [address] [place] [address] at [address] [facility] #: [phone] END OF REPORT [facility] 2023-02-16 16:38:55 OPERATIVE/PROCEDURE REPORT IRA RAYA FACILITY: [facility] Billing #: [id number] Room: [address] [place] [address] MR #: [id number] : 1955 DATE OF PROCEDURE: 02/16/2023 SURGEON: Lindy Camarillo MD PREOPERATIVE DIAGNOSIS: Malfunctioning arteriovenous fistula. POSTOPERATIVE DIAGNOSIS: Malfunctioning arteriovenous fistula. PROCEDURES: 1. Fistulogram. 2. Percutaneous transluminal angioplasty of left upper extremity arteriovenous fistula. ANESTHESIA: Local. ESTIMATED BLOOD LOSS: Minimal. COMPLICATIONS: None. INDICATIONS FOR THE PROCEDURE: Mr. Ira Raya is a 67-year-old male with history of multiple medical problems and complains of significant findings of a left upper extremity AV fistula that has some malfunction. He is having some difficulty using it. Our plan is to go and study this. He was explained all the risks and benefits of the procedure. He asked us to proceed. 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 After induction of conscious sedation anesthesia, patient was prepped and draped in appropriate surgical fashion. Ultrasound used to visualize left upper extremity AV fistula. Mini-Stick needle and Mini-Stick sheath were placed. This was upsized over a stiff angled Glidewire 6-Wolof sheath. A fistulogram was performed, which demonstrated some outflow stenosis of the cephalic vein. The basilic vein and brachial vein were within normal limits. We decided to go ahead and treat this. We passed stiff angled Glidewire up, brought up an 8 mm balloon, which was used to perform balloon angioplasty of this lesion. We shot a completion fistulogram, demonstrated improved flow. All catheters, guidewire sheaths were then withdrawn. A 2-0 nylon suture was used to close the sheath entrance site. ITM/MODL /[id number] Electronically signed by: LINDY CAMARILLO at 2023-02-16 15:42:[address] [facility] 2023-02-01 15:11:34 Formatting of this n ote is different from the original. traMADoL 50 mg tablet 30 tablet 5 11/17/2022 Last Refilled: 11/17/22 Notes: [facility] [address] [place] [address] Recent Visits Date Type Provider Dept 01/12/23 Office Visit Ira Ramirez MD [facility] 11/17/22 Office Visit Ira Ramirez MD [facility] 10/01/22 Office Visit Mary Alice Galarza FNP [facility] 08/13/22 Office Visit Mary Alice Galarza FNP [facility] 07/27/22 Office Visit Ira Ramirez MD [facility] 05/12/22 Office Visit Ira Ramirez MD [facility] 01/01/22 Office Visit Ira Ramirez MD [facility] 12/22/21 Office Visit Ira Ramirez MD [facility] 09/30/21 Office Visit Ira Ramirez MD [facility] 08/24/21 Office Visit Ira Ramirez MD [facility] Showing recent visits within past 540 days with a meds authorizing provider and meeting all other requirements Future Appointments No visits were found meeting these conditions. Showing future appointments within next 150 days with a meds authorizing provider and meeting all other requirements Lisa Ramirez RN [facility] 2021-11-18 11:33:00 [facility] ([facility]) Infectious Dis. Progress Note REPORT#:[id number] REPORT STATUS: Signed DATE:11/18/21 TIME:113 PATIENT: IRA RAYA UNIT #: [id number] ROOM/BED: [place] [address] : 54 AGE: 66 SEX: M ATTEND: Mandy Devlin MD ADM AUTHOR: Bridgett Ramos * ALL edits or amendments must be made on the electronic/computer document * Bridgett Ramos 11/18/21 1133: Subjective Chief complaint: Gangrenous left index finger HPI: Patient afebrile. No leukocytosis. Reports pain well controlled in finger. Surgical dressing clean and dry. Review of Systems Constitutional: Denies: chills, fatigue, fever. GI: Denies: diarrhea, nausea, vomiting. Objective General VS/I O: Last Documented: Result Date Time Pulse Ox 91 11/18 826 B/P 106/74 11/18 826 B/P Mean 84.5 11/18 826 Temp 36.8 11/18 826 Pulse 150 11/18 826 Resp 18 11/18 826 O2 Delivery Room air 11/18 0451 O2 Flow Rate 2 11/17 1410 Vital Signs Date Temp Pulse Resp B/P B/P Mean Pulse Ox FiO2 11/17-11/18 36.1-36.8 55-150 14-20 96-116/57-80 74-92.4 91-100 24 hour I O ending at 0700: 11/18 0700 11/17 1900 Intake Total 1070.00 Output Total 1999 Balance -930.00 Intake, IV 350.00 Intake, Oral 720 Output, 2000 Hemodialysis Output, Urine 0 PATIENT WEIGHT: Weight (lb): Weight (oz): Weight (kg): 129.000 Physical Exam General appearance: alert, awake, oriented, no acute distress Head/Eyes: atraumatic, EOMI, normal conjunctiva/sclera, normal eyelids/periorb, normocephalic Cardiovascular: regular rate rhythm, pulses 2/4 and equal bilaterally upper extremities Respiratory: aerating well, symmetric expansion, no distress Extremities: no clubbing, no cyanosis, Left index finger with surgical dressing Neuro/GRAIN ELEVATOR MOTOR STARTER: alert, oriented X 3, CNII-XII intact, normal speech Skin: normal turgor, no rash Diagnosis, Assessment Plan Free Text A P: Laboratory Tests 11/18/21 0410: [Embedded Image Not Available] 11/17/21 0630: [Embedded Image Not Available] 11/16 MRSA screen POS Imagin/8 CXR no consolidation 11/15 Hand XR reviewed Assessment: 1. Left index finger dry gangrene with superimposed cellulitis, s/p partial amputation at level of PIP joint on 11/17; surgical cx positive for coag pos staph. 2. ESRD on HD. 3. Morbid obesity. Plan: 1. Cefepime (day 3) and vancomycin (day 4). 2. F/U ID and sensitivities of surg cx; positive for coag pos staph. 3. Surgery reports amputation most likely cleared all infected bone and tissue. 4. Monitor CBC, CMP, and CRP. 5. When ready for discharge, patient can most likely go on cefdinir (300mg after HD sessions) and doxycycline (100mg, BID) for 14 days. Miles Nance 11/18/21 8537: Attestations Physician Attestation Agree w/findings plan: I evaluated the pt with DALE Ramos. I confirm the esential components of the progress note. My personal evaluation is left index finger with dry gangrene s/p amputation. Can discharge pt on clindamycin for 7 days as all infected tissue was amputated. at 1141 at 1727 [facility] #: [id number] END OF REPORT [facility] 2021-11-18 10:09:00 [facility] ([facility]) Hospitalist Discharge Summary REPORT#:[id number] REPORT STATUS: Signed DATE:11/18/21 TIME:1009 PATIENT: IRA RAYA UNIT #: [id number] ROOM/BED: [place] [address] : 54 AGE: 66 SEX: M ATTEND: Mandy Devlin MD ADM AUTHOR: Rome Tyler MD * ALL edits or amendments must be made on the electronic/computer document * General Information Date of admission: Observation Start Date: 11/15/21 Date of admission: 11/16/21 Discharge date: 11/18/21 Hospital course: Admitting diagnosis Gangrene of left index finger Hypertension End-stage renal disease on dialysis Discharge diagnosis Same as above status post amputation of the left index finger Hospital course This is 66-year-old gentleman who came in with complains of left index finger infection. Please refer to admission H P further details. Patient was admitted for possible gangrene of the left index finger. Orthopedics evaluated the patient and ID was also on board started on broad-spectrum antibiotics. Orthopedics performed I D and amputation of the left index finger.. Postoperative care was managed with the help of orthopedics. Nephrology was also on board for management of dialysis. Patient improved was stable was cleared by orthopedics. Wound cultures are growing possibly staph so was discharged on clindamycin as per infectious disease. Patient was discharged in stable condition. Consultants: infectious disease, nephrology, orthopedics Pt. condition on discharge: improved Med Rec Med Rec Discharge meds: Continue taking these medications: METOPROLOL TARTRATE (LOPRESSOR) 100 MG TAB Comments: TAKE 1 TABLET BY MOUTH TWICE DAILY - SIG Obtained From [facility] APIXABAN (ELIQUIS) 2.5 MG TAB Comments: TAKE 1 TABLET BY MOUTH TWICE DAILY - SIG Obtained From [facility] ALLOPURINOL (ZYLOPRIM) 100 MG TAB Comments: TAKE 1 TABLET BY MOUTH ONCE DAILY - SIG Obtained From [facility] Start taking the following new medications: HYDROcodone/APAP (NORCO 5/325) 1 TAB TAB 1 TABLET ORAL EVERY 6 HOURS NEEDED. as needed for acute pain Qty = 12 No Refills CLINDAMYCIN HCL (CLEOCIN) 300 MG CAP 300 MILLIGRAM ORAL EVERY 6 HOURS. Days = 7 Qty = 28 No Refills Objective VS/I O Last Documented: Result Date Time Pulse Ox 91 11/18 826 B/P 106/74 11/18 826 B/P Mean 84.5 11/18 826 Temp 98.2 11/18 826 Pulse 150 11/18 826 Resp 18 11/18 826 O2 Delivery Room air 11/18 045 O2 Flow Rate 2 11/17 1410 24 hour I O ending at 0700: 11/18 0700 11/17 1900 Intake Total 1070.00 Output Total 2000 Balance -930.00 Intake, IV 350.00 Intake, Oral 720 Output, 2000 Hemodialysis Output, Urine 0 General appearance: alert, awake, oriented Head/Eyes: atraumatic, normocephalic ENT: moist mucosal membranes, normal nose Cardiovascular: normal heart sounds, regular rate rhythm Respiratory: decreased breath sounds, no distress Abdomen: non-tender, soft Extremities: distal left index finger under bandage , no sctive bleeding, some dried blood Neuro/GRAIN ELEVATOR MOTOR STARTER: alert, oriented X 3, normal speech Psychiatry: normal affect, normal mood Results Findings/Data: Laboratory Tests: 11/18 409 Chemistry C-Reactive Protein (0.000 - 0.3 MG/DL) 6.420 H Hematology WBC (3.5 - 11.0 K/mm3) 4.6 RBC (4.70 - 6.10 M/mm3) 4.33 L Hgb (12.3 - 15.9 G/DL) 10.5 L Hct (35.8 - 46.7 %) 34.2 L MCV (86.3 - 98.9 Fl) 79.0 L MCH (28.9 - 34.4 pg) 24.2 L MCHC (32.1 - 34.5 G/DL) 30.7 L RDW (11.5 - 14.5 SD) 19.8 H Plt Count (150 - 450 K/mm3) 146 L Neut % (Auto) (40 - 76 %) 65.5 Lymph % (Auto) (20.5 - 51.1 %) 19.2 L Haralson % (Auto) (1.7 - 9.3 %) 12.1 H Eos % (Auto) (0.0 - 6.0 %) 1.7 Baso % (Auto) (0.0 - 2.0 %) 0.9 Neut # (Auto) (1.8 - 7.6 K/mm3) 3.0 Lymph # (Auto) (0.6 - 3.0 K/mm3) 0.9 Haralson # (Auto) (0.2 - 1.5 K/mm3) 0.6 Eos # (Auto) (0.0 - 0.4 K/mm3) 0.1 Baso # (Auto) (0.0 - 0.2 K/mm3) 0.0 Abs Immat Gran (auto) (0.00 - 0.03 x10 3/uL) 0.03 Add Manual Diff (CRITERIA DIFF/SCN) NO Immature Gran % (0.0 - 5.0 %) 0.6 Nucleated RBC % (0.0 - 1.0 /100WBC%) 0.0 Radiology data: Recent Impressions: RADIOLOGY - XR HAND 3+V LT 11/15 1729 Report Impression - Status: SIGNED Entered: 11/15/2021 1752 Impression: 1. Erosive changes and fragmentation, possibly pathologic fracture, at the 2nd middle phalanx distally. Diffuse soft tissue swelling involves the 2nd digit. No evidence of soft tissue gas however. 2. Diffuse osteopenia noted. Impression By: [email or web address] - Bindu Villegas MD RADIOLOGY - XR CHEST 1 V 11/15 1735 Report Impression - Status: SIGNED Entered: 11/15/2021 1744 IMPRESSION: No acute cardiopulmonary disease. Impression By: [email or web address] - Chris You M.D. 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 instructions Diet: Renal Additional instructions: nwb left index finger Continue wound care as per orthopedics Finish the antibiotics Follow-up with orthopedics as outpatient Follow-up with nephrology for management of dialysis Follow-up with PCP for routine healthcare maintenance Discharge management: greater than 30 mins (34) Time spent: >50% spent on counseling/coordination of care: yes Follow-up Appointments Consulting provider 1: Provider 1: Amita Gr MD Treatments Procedures Treatments Procedures: Left index finger amputation at the level of the PIP joint with a primary closure at 1741 RPT #: [id number] END OF REPORT [facility] 2021-11-18 09:34:00 [facility] Nephrology Progress Note REPORT#:[id number] REPORT STATUS: Signed DATE:11/18/21 TIME:933 PATIENT: IRA RAYA UNIT #: [id number] ROOM/BED: [place] [address] : 54 AGE: 66 SEX: M ATTEND: Mandy Devlin MD ADM AUTHOR: Genaro Gupta MD * ALL edits or amendments must be made on the electronic/computer document * Subjective Chief complaint: esrd Comments: Denies SOB Review of Systems Free Text ROS Notes Free Text ROS Notes: 10 points ROS performed and documented in subjective. Objective General VS/I O: Vital Signs: Date Time Temp Pulse Resp B/P B/P Pulse O2 O2 Flow FiO2 Mean Ox Delivery Rate 11/18 0827 36.8 150 18 106/74 84.5 91 11/18 0451 36.6 73 14 114/75 88.1 98 Room air 11/17 2332 36.8 72 14 115/76 89.4 95 Room air 11/17 2006 36.4 55 14 116/80 92.4 97 Room air 11/17 1505 36.4 63 14 106/75 85.3 96 Room air 11/17 1410 36.1 67 20 102/57 Nasal 2 cannula 11/17 1200 36.4 63 14 96/63 74 100 11/17 1000 36.2 75 23 115/81 Nasal 2 cannula 24 hour I O ending at 0700: 11/18 0700 11/17 1900 Intake Total 1070.00 Output Total 1999 Balance -930.00 Intake, IV 350.00 Intake, Oral 720 Output, 2000 Hemodialysis Output, Urine 0 Medications Active Meds + DC'd Last 24 Hrs Docusate Sodium (COLACE) 100 MG BID PO Pregabalin (LYRICA) 75 MG BID PO Heparin Sodium (Porcine) (HEPARIN SODIUM) 5,000 UNIT Q8HR SUBQ Vancomycin HCl (VANCOMYCIN HCL) 1,000 MG ONCE ONE IV (DC) Sodium Chloride (0.9% Sodium Chloride) 250 ML Metoprolol Tartrate (LOPRESSOR) 100 MG Q12HR PO Dextrose/Water (Dextrose 50% W SYRINGE) 50 ML ASDIR PRN IV (CKD) Glucagon (GLUCAGON) 1 MG ASDIR PRN IM Hydrocodone Bitart/Acetaminophen (NORCO 5/325) 1 TAB PACU ONCE PRN PO ( DC) Hydrocodone Bitart/Acetaminophen (NORCO 10/325) 1 TAB PACU ONCE PRN PO ( DC) Hydromorphone HCl (DILAUDID) 0.5 MG PACU Q10MIN PRN PRN IV (DC) Insulin Human Lispro (HUMALOG) 0 PACU ONCE PRN SUBQ (DC) Labetalol HCl (TRANDATE) 5 MG PACU Q10MIN PRN PRN IV (DC) Lactated Ringer's (LACTATED RINGERS) 1,000 ML ASDIR IV (DC) Meperidine HCl (DEMEROL) 12.5 MG PACU ONCE PRN IV (DC) Ondansetron HCl (ZOFRAN) 4 MG PACU ONCE PRN IV (DC) Ondansetron HCl (ZOFRAN) 8 MG Q8H PRN PRN PO Ondansetron HCl (ZOFRAN) 8 MG Q8H PRN PRN IV Albumin Human (ALBUMINAR-25% 12.5 GM/50 ML) 25 GM BOLUS PRN IV Mannitol (MANNITOL 25%) 12.5 GM BOLUS PRN IV Sodium Chloride (0.9% Sodium Chloride) 2,000 ML .Q24H PRN IV Cefepime HCl (MAXIPIME) 1 GM Q24H IV Sodium Chloride (0.9% Sodium Chloride) 50 ML Miscellaneous Information (VANCOMYCIN PHARMACY TO DOSE) 1 EACH ASDIR IV Morphine Sulfate (morphine Sulfate) 2 MG Q6H PRN PRN IV Tramadol HCl (ULTRAM) 50 MG Q6H PRN PRN PO Acetaminophen (TYLENOL) 650 MG Q4H PRN PRN PO Physical Exam General appearance: awake Head/eyes: normocephalic ENT: normal nose Neck: no JVD C-Spine clearance: no midline tenderness Cardiovascular: no murmur Respiratory: no distress Abdomen: soft Genitourinary: no gómez Extremities: no edema Musculoskeletal: no tendereness Neuro/GRAIN ELEVATOR MOTOR STARTER: alert, oriented X 3 Results Findings/Data: Laboratory Tests 11/18 409 Chemistry C-Reactive Protein (0.000 - 0.3 MG/DL) 6.420 H Laboratory Tests 11/18 409 Hematology WBC (3.5 - 11.0 K/mm3) 4.6 RBC (4.70 - 6.10 M/mm3) 4.33 L Hgb (12.3 - 15.9 G/DL) 10.5 L Hct (35.8 - 46.7 %) 34.2 L MCV (86.3 - 98.9 Fl) 79.0 L MCH (28.9 - 34.4 pg) 24.2 L MCHC (32.1 - 34.5 G/DL) 30.7 L RDW (11.5 - 14.5 SD) 19.8 H Plt Count (150 - 450 K/mm3) 146 L Neut % (Auto) (40 - 76 %) 65.5 Lymph % (Auto) (20.5 - 51.1 %) 19.2 L Haralson % (Auto) (1.7 - 9.3 %) 12.1 H Eos % (Auto) (0.0 - 6.0 %) 1.7 Baso % (Auto) (0.0 - 2.0 %) 0.9 Neut # (Auto) (1.8 - 7.6 K/mm3) 3.0 Lymph # (Auto) (0.6 - 3.0 K/mm3) 0.9 Haralson # (Auto) (0.2 - 1.5 K/mm3) 0.6 Eos # (Auto) (0.0 - 0.4 K/mm3) 0.1 Baso # (Auto) (0.0 - 0.2 K/mm3) 0.0 Abs Immat Gran (auto) (0.00 - 0.03 x10 3/uL) 0.03 Add Manual Diff (CRITERIA DIFF/SCN) NO Immature Gran % (0.0 - 5.0 %) 0.6 Nucleated RBC % (0.0 - 1.0 /100WBC%) 0.0 Diagnosis, Assessment Plan Free Text A P: 1. ESRD on hemodialysis. Hemodialysis on Tuesday and Tuesday. Last HD 11/17 2. Hypertension. 3. Left finger gangrene. 4. Chronic anemia of renal disease. 5. Secondary hyperparathyroidism. Recommendations 11/18: No need for HD today. 11/17: HD today. 11/16: Renal replacement diet. Limit fluid to 1 L a day. No need for hemodialysis today. Check phosphorus, adjust phosphorus binders. Epogen subcutaneous as needed. Thank you for consultation pulmonary question please call [phone] at [phone] [facility] #: [id number] END OF REPORT [facility] 2021-11-17 17:46:00 [facility] Nephrology Progress Note REPORT#:[id number] REPORT STATUS: Signed DATE:11/17/21 TIME:1745 PATIENT: IRA RAYA UNIT #: [id number] ROOM/BED: [place] [address] : 54 AGE: 66 SEX: M ATTEND: Mandy Devlin MD ADM AUTHOR: Genaro Gupta MD * ALL edits or amendments must be made on the electronic/computer document * Subjective Chief complaint: esrd Comments: Denies sob. Review of Systems Free Text ROS Notes Free Text ROS Notes: 10 points ROS performed and documented in subjective, otherwise negative. Objective General VS/I O: Vital Signs: Date Time Temp Pulse Resp B/P B/P Pulse O2 O2 Flow FiO2 Mean Ox Delivery Rate 11/17 1505 36.4 63 14 106/75 85.3 96 Room air 11/17 1410 36.1 67 20 102/57 Nasal 2 cannula 11/17 1200 36.4 63 14 96/63 74 100 11/17 1000 36.2 75 23 115/81 Nasal 2 cannula 11/17 0925 36.3 84 20 118/76 90 95 11/17 0910 36.2 59 14 123/66 97 Room air 11/17 0855 55 11 112/76 97 Room air 11/17 0840 59 14 113/69 98 Room air 11/17 0835 50 16 108/66 96 Room air 11/17 0834 Simple 5 mask 11/17 0830 60 11 110/78 98 Room air 11/17 0824 57 10 115/70 97 Simple 5 mask 11/17 0820 63 11 112/61 97 Simple 5 mask 11/17 0814 36.1 64 14 111/62 98 Simple 5 mask 11/17 0648 36.8 68 14 123/82 99 Room air 11/17 0322 36.8 59 20 103/70 81.3 92 Nasal cannula 11/16 2327 36.3 68 20 94/56 68.8 95 Nasal cannula 11/16 1906 36.9 108 16 96/66 76.5 93 Room air 24 hour I O ending at 0700: 11/17 0700 11/16 1900 Intake Total 150 500.00 Output Total 0 Balance 150 500.00 Intake, IV 100.00 Intake, Oral 150 400 Output, Urine 0 Medications Active Meds + DC'd Last 24 Hrs Docusate Sodium (COLACE) 100 MG BID PO Pregabalin (LYRICA) 75 MG BID PO Heparin Sodium (Porcine) (HEPARIN SODIUM) 5,000 UNIT Q8HR SUBQ Vancomycin HCl (VANCOMYCIN HCL) 1,000 MG ONCE ONE IV Sodium Chloride (0.9% Sodium Chloride) 250 ML Metoprolol Tartrate (LOPRESSOR) 100 MG Q12HR PO Dextrose/Water (Dextrose 50% W SYRINGE) 50 ML ASDIR PRN IV (CKD) Glucagon (GLUCAGON) 1 MG ASDIR PRN IM Acetaminophen (TYLENOL EXTRA STRENGTH) 1,000 MG Q6H PO (DC) Celecoxib (CeleBREX) 200 MG 0900,2100 PO (CAN) Hydrocodone Bitart/Acetaminophen (NORCO 5/325) 1 TAB PACU ONCE PRN PO ( DC) Hydrocodone Bitart/Acetaminophen (NORCO 10/325) 1 TAB PACU ONCE PRN PO ( DC) Hydromorphone HCl (DILAUDID) 0.5 MG PACU Q10MIN PRN PRN IV (DC) Insulin Human Lispro (HUMALOG) 0 PACU ONCE PRN SUBQ (DC) Labetalol HCl (TRANDATE) 5 MG PACU Q10MIN PRN PRN IV (DC) Lactated Ringer's (LACTATED RINGERS) 1,000 ML ASDIR IV Meperidine HCl (DEMEROL) 12.5 MG PACU ONCE PRN IV (DC) Ondansetron HCl (ZOFRAN) 4 MG PACU ONCE PRN IV (DC) Ondansetron HCl (ZOFRAN) 8 MG Q8H PRN PRN PO Ondansetron HCl (ZOFRAN) 8 MG Q8H PRN PRN IV Phenylephrine HCl (CYNTHIA-SYNEPHRINE INJ) 0 .STK-MED ONE .ROUTE (DC) Albumin Human (ALBUMINAR-25% 12.5 GM/50 ML) 25 GM BOLUS PRN IV Mannitol (MANNITOL 25%) 12.5 GM BOLUS PRN IV Sodium Chloride (0.9% Sodium Chloride) 2,000 ML .Q24H PRN IV Lidocaine HCl (XYLOCAINE 1%) 0 .STK-MED ONE .ROUTE (DC) Etomidate (AMIDATE) 0 .STK-MED ONE .ROUTE (DC) Fentanyl Citrate (SUBLIMAZE) 0 .STK-MED ONE .ROUTE (DC) Lidocaine HCl (XYLOCAINE) 0 .STK-MED ONE .ROUTE (DC) Midazolam HCl (VERSED) 0 .STK-MED ONE .ROUTE (DC) Cefepime HCl (MAXIPIME) 1 GM Q24H IV Sodium Chloride (0.9% Sodium Chloride) 50 ML Miscellaneous Information (VANCOMYCIN PHARMACY TO DOSE) 1 EACH ASDIR IV Morphine Sulfate (morphine Sulfate) 2 MG Q6H PRN PRN IV Tramadol HCl (ULTRAM) 50 MG Q6H PRN PRN PO Acetaminophen (TYLENOL) 650 MG Q4H PRN PRN PO Ondansetron HCl (ZOFRAN) 4 MG Q4H PRN PRN IV (DC) Physical Exam General appearance: awake Head/eyes: normocephalic ENT: normal nose Neck: no JVD C-Spine clearance: no midline tenderness Cardiovascular: no murmur Respiratory: no distress Abdomen: soft Genitourinary: no gómez Extremities: no edema Musculoskeletal: no tendereness Neuro/GRAIN ELEVATOR MOTOR STARTER: alert, oriented X 3 Results Findings/Data: Laboratory Tests 11/17 0630 Chemistry Sodium (134 - 147 mmol/L) 137 Potassium (3.4 - 5.0 mmol/L) 3.9 Chloride (100 - 108 mmol/L) 102 Carbon Dioxide (21 - 32 mmol/L) 23 Anion Gap (4.0 - 15.0 GAP calc) 12.0 BUN (7 - 18 MG/DL) 24 H Creatinine (0.8 - 1.3 MG/DL) 6.3 H Glomerular Filtr Rate (>60 estGFR) 11 L Glucose (70 - 110 MG/DL) 62 L Calcium (8.5 - 10.1 MG/DL) 9.6 Laboratory Tests 11/17 0456 Toxicology Random Vancomycin (5 - 40 mcG/ML) 8.6 Diagnosis, Assessment Plan Free Text A P: 1. ESRD on hemodialysis. Hemodialysis on Tuesday and Tuesday. 2. Hypertension. 3. Left finger gangrene. 4. Chronic anemia of renal disease. 5. Secondary hyperparathyroidism. Recommendations 11/17: HD today. 11/16: Renal replacement diet. Limit fluid to 1 L a day. No need for hemodialysis today. Check phosphorus, adjust phosphorus binders. Epogen subcutaneous as needed. 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 OPERATIVE PROCEDURE: Left index finger amputation at the level of the PIP joint with a primary closure. ANESTHESIA: General. COMPLICATIONS: None. INDICATIONS: The patient is a 66-year-old male with history of chronic diabetes, nephropathy, on dialysis, admitted in the [facility] with worsening of the index finger pain with some gangrenous changes. X-ray shows the osteomyelitis of the distal and middle phalanx. Operative procedure was indicated. Risks and benefits were discussed. Potential complications were reviewed and consent was obtained. DESCRIPTION OF PROCEDURE: The patient was brought to the operating room and placed on the operating table in supine position with a hand table. MAC anesthesia was given. He was on IV antibiotics scheduled dose. Left upper extremity was prepped and draped in usual sterile fashion. Time-out was performed. We started working from distal to proximal for the index finger. The patient developed significant gangrenous changes on the dorsal aspect of the nail, distal phalanx and part of the middle phalanx skin area. We excised all necrotic tissue as soon as we excised skin. We found there is no really bone structures at this phalanx or majority part of the middle phalanx was all completely destroyed. All necrotic tissues were completely excised and since the entire middle phalanx was involved, we excised the entire middle phalanx bone all the way up to the PIP joint. The flexor tendon was excised. The extensor tendon was excised. We irrigated the wound with normal saline with about 3 L normal saline bag. We also obtained intraoperative cultures. We did not see any involvement of the proximal phalanx. We removed the articular cartilage. Digital arteries were cauterized and the nerves were excised and PATIENT NAME: IRA RAYA allowed them to retract proximally. We loosely approximated the volar-based flap to cover the proximal phalanx bone by using a 5-0 Prolene suture. Soft dressing was applied without any compression. The patient was shifted in the recovery room in stable condition. The patient tolerated the entire operative procedures very well. Please note, we noted that we found a good blood flow on the volar flap on the skin. The patient was shifted in the recovery room in stable condition. The patient tolerated the entire operative procedures very well. I, Dr. Gr, performed the entire operative procedure. Dictated By: Amita Gr MD WT: OP:LKELLY/ Conf#: [id number]/DID#: [id number] Authenticated by Amita Gr MD On 11/20/2021 12:46:19 AM at 1246 PATIENT NAME: IRA RAYA [facility] 2021-11-17 14:55:00 [facility] Hospitalist Progress Note REPORT#:[id number] REPORT STATUS: Signed DATE:11/17/21 TIME:1455 PATIENT: IRA RAYA UNIT #: [id number] ROOM/BED: [place] [address] : 54 AGE: 66 SEX: M ATTEND: Mandy Devlin MD ADM AUTHOR: Rome Tyler MD * ALL edits or amendments must be made on the electronic/computer document * Subjective Chief complaint: LEFT INDEX FINGER INFECTION Comments: Patient seen in the preop area going for left index finger surgery for gangrene. Objective General VS/I O: Vital Signs: Date Time Temp Pulse Resp B/P B/P Pulse O2 O2 Flow FiO2 Mean Ox Delivery Rate 11/17 1410 97.0 67 20 102/57 Nasal 2 cannula 11/17 1200 97.5 63 14 96/63 74 100 / 1000 97.2 75 23 115/81 Nasal 2 cannula 11/17 0925 97.3 84 20 118/76 90 95 / 0910 97.2 59 14 123/66 97 Room air 05/ 0855 55 11 112/76 97 Room air 05/10 0840 59 14 113/69 98 Room air 05/10 0835 50 16 108/66 96 Room air 05/10 0834 Simple 5 mask 05/ 0830 60 11 110/78 98 Room air 05/10 0824 57 10 115/70 97 Simple 5 mask 05/10 0820 63 11 112/61 97 Simple 5 mask 05/10 0814 97.0 64 14 111/62 98 Simple 5 mask 05/ 0648 98.2 68 14 123/82 99 Room air / 0322 98.2 59 20 103/70 81.3 92 Nasal cannula 11/16 2327 97.3 68 20 94/56 68.8 95 Nasal cannula 11/16 1906 98.4 108 16 96/66 76.5 93 Room air 11/16 1543 97.3 134 17 109/40 62.7 97 Room air 24 hour I O ending at 0700: 11/17 0700 11/16 1900 Intake Total 150 500.00 Output Total 0 Balance 150 500.00 Intake, IV 100.00 Intake, Oral 150 400 Output, Urine 0 PATIENT WEIGHT: Weight (lb): Weight (oz): Weight (kg): 129.000 Medications: Active Meds + DC'd Last 24 Hrs Docusate Sodium (COLACE) 100 MG BID PO Pregabalin (LYRICA) 75 MG BID PO Vancomycin HCl (VANCOMYCIN HCL) 1,000 MG ONCE ONE IV Sodium Chloride (0.9% Sodium Chloride) 250 ML Dextrose/Water (Dextrose 50% W SYRINGE) 50 ML ASDIR PRN IV (CKD) Glucagon (GLUCAGON) 1 MG ASDIR PRN IM Acetaminophen (TYLENOL EXTRA STRENGTH) 1,000 MG Q6H PO (DC) Celecoxib (CeleBREX) 200 MG 0900,2100 PO (CAN) Hydrocodone Bitart/Acetaminophen (NORCO 5/325) 1 TAB PACU ONCE PRN PO ( DC) Hydrocodone Bitart/Acetaminophen (NORCO 10/325) 1 TAB PACU ONCE PRN PO ( DC) Hydromorphone HCl (DILAUDID) 0.5 MG PACU Q10MIN PRN PRN IV (DC) Insulin Human Lispro (HUMALOG) 0 PACU ONCE PRN SUBQ (DC) Labetalol HCl (TRANDATE) 5 MG PACU Q10MIN PRN PRN IV (DC) Lactated Ringer's (LACTATED RINGERS) 1,000 ML ASDIR IV Meperidine HCl (DEMEROL) 12.5 MG PACU ONCE PRN IV (DC) Ondansetron HCl (ZOFRAN) 4 MG PACU ONCE PRN IV (DC) Ondansetron HCl (ZOFRAN) 8 MG Q8H PRN PRN PO Ondansetron HCl (ZOFRAN) 8 MG Q8H PRN PRN IV Phenylephrine HCl (CYNTHIA-SYNEPHRINE INJ) 0 .STK-MED ONE .ROUTE (DC) Albumin Human (ALBUMINAR-25% 12.5 GM/50 ML) 25 GM BOLUS PRN IV Mannitol (MANNITOL 25%) 12.5 GM BOLUS PRN IV Sodium Chloride (0.9% Sodium Chloride) 2,000 ML .Q24H PRN IV Lidocaine HCl (XYLOCAINE 1%) 0 .STK-MED ONE .ROUTE (DC) Etomidate (AMIDATE) 0 .STK-MED ONE .ROUTE (DC) Fentanyl Citrate (SUBLIMAZE) 0 .STK-MED ONE .ROUTE (DC) Lidocaine HCl (XYLOCAINE) 0 .STK-MED ONE .ROUTE (DC) Midazolam HCl (VERSED) 0 .STK-MED ONE .ROUTE (DC) Cefepime HCl (MAXIPIME) 1 GM Q24H IV Sodium Chloride (0.9% Sodium Chloride) 50 ML Miscellaneous Information (VANCOMYCIN PHARMACY TO DOSE) 1 EACH ASDIR IV Morphine Sulfate (morphine Sulfate) 2 MG Q6H PRN PRN IV Tramadol HCl (ULTRAM) 50 MG Q6H PRN PRN PO Acetaminophen (TYLENOL) 650 MG Q4H PRN PRN PO Ondansetron HCl (ZOFRAN) 4 MG Q4H PRN PRN IV (DC) Physical Exam General appearance: alert, awake, oriented, no acute distress Head/Eyes: atraumatic, normocephalic ENT: moist mucosal membranes, normal nose Cardiovascular: normal heart sounds, regular rate rhythm Respiratory: decreased breath sounds, no distress Abdomen: non-tender, soft Extremities: distal left index finger under bandage Neuro/GRAIN ELEVATOR MOTOR STARTER: alert, normal speech Psychiatry: normal affect, normal mood Results Findings/Data: Laboratory Tests 11/17 0630 Chemistry Sodium (134 - 147 mmol/L) 137 Potassium (3.4 - 5.0 mmol/L) 3.9 Chloride (100 - 108 mmol/L) 102 Carbon Dioxide (21 - 32 mmol/L) 23 Anion Gap (4.0 - 15.0 GAP calc) 12.0 BUN (7 - 18 MG/DL) 24 H Creatinine (0.8 - 1.3 MG/DL) 6.3 H Glomerular Filtr Rate (>60 estGFR) 11 L Glucose (70 - 110 MG/DL) 62 L Calcium (8.5 - 10.1 MG/DL) 9.6 Laboratory Tests 11/17 0456 Toxicology Random Vancomycin (5 - 40 mcG/ML) 8.6 Results: labs reviewed, current med profile rev'd Diagnosis, Assessment Plan Problem List/A P: 1. Gangrene of finger of left hand ortho consulted continue IV vancomycin and cefepime blooid cultures collected trend lactate NPO after midnight pain management as needed 2. ESRD on dialysis nephrology consulted Free Text DxA P Notes Free text DxA P notes: Problem List/A P: 1. Gangrene of index finger of left hand ortho consulted going for surgery today continue IV vancomycin and cefepime Follow culture trend lactate Continue postoperative care as per surgery pain management as needed Infectious disease on board as well do not think we need long-term antibiotics 2. ESRD on dialysis nephrology consulted continue management as per nephrology. Avoid nephrotoxic medication Hypertension Resume metoprolol. Continue to adjust antihypertensives. DVT prophylaxis with heparin Code status: Full at 1516 RPT #: [id number] END OF REPORT [facility] 2021-11-17 14:03:00 [facility] ([facility]) Infectious Dis. Progress Note REPORT#:[id number] REPORT STATUS: Signed DATE:11/17/21 TIME:140 PATIENT: IRA RAYA UNIT #: [id number] ROOM/BED: [place] [id number] : 54 AGE: 66 SEX: M ATTEND: Mandy Devlin MD ADM AUTHOR: Bridgett Ramos PA * ALL edits or amendments must be made on the electronic/computer document * Bridgett Ramos 11/17/21 1403: Subjective Chief complaint: Gangrenous left index finger HPI: Patient afebrile. Vitals stable. Receiving diaylsis. Denies pain in finger. Surgical dressings clean and dry s/p partial amputation this morning. Review of Systems Constitutional: Denies: chills, fatigue, fever. GI: Denies: diarrhea, nausea, vomiting. Objective General VS/I O: Last Documented: Result Date Time Pulse Ox 100 05/ 1200 B/P 96/63 11/17 1200 B/P Mean 74 11/17 1200 Temp 36.4 / 1200 Pulse 63 11/17 1200 Resp 14 11/17 1200 O2 Delivery Nasal cannula 11/17 1000 O2 Flow Rate 2 11/17 1000 Vital Signs Date Temp Pulse Resp B/P B/P Mean Pulse Ox FiO2 11/16-11/17 36.1-36.9 50-134 10-23 94-123/40-82 62.7-90 92-100 24 hour I O ending at 0700: 11/17 0700 11/16 1900 Intake Total 150 500.00 Output Total 0 Balance 150 500.00 Intake, IV 100.00 Intake, Oral 150 400 Output, Urine 0 PATIENT WEIGHT: Weight (lb): Weight (oz): Weight (kg): 129.000 Physical Exam General appearance: obese, alert, awake, no acute distress Head/Eyes: atraumatic, clear cornea, EOMI, normal conjunctiva/sclera, normal eyelids/periorb, normocephalic Cardiovascular: regular rate rhythm, pulses 2/4 and equal bilaterally upper extremities Respiratory: aerating well, symmetric expansion, no distress Extremities: no clubbing, no cyanosis, Left index finger with surgical dressing Neuro/GRAIN ELEVATOR MOTOR STARTER: alert, oriented X 3, CNII-XII intact, normal speech Skin: normal turgor, no rash Diagnosis, Assessment Plan Free Text A P: Laboratory Tests 11/17/21 0630: [Embedded Image Not Available] Imagin/8 CXR no consolidation 11/15 Hand XR reviewed Assessment: 1. Left index finger dry gangrene with superimposed cellulitis, s/p partial amputation 11/17 2. ESRD on HD. 3. Morbid obesity. Plan: 1. Cefepime (day 2). 2. Continue vancomycin (day 3) as MRSA screening positive and cx pending. 3. F/U surgical cultures and pathology report for margins. 4. Monitor CBC, CMP, and CRP. 5. Will discuss results of surgery with ortho team as to extent of amputation. 6. Pt will not need long-term IV abxs if all infected/gangrenous tissue is amputated. Miles Nance 11/17/21 1118: Attestations Physician Attestation Agree w/findings plan: I evaluated the pt with DALE Ramos. I confirm the esential components of the progress note. My personal evaluation is left index finger with dry gangrene. Will dicuss with surgery about duration of therapy. I dont think pt will need long-term IV antibiotics if all infected/ tissue was amputated. at 1409 at 8095 RPT #: [id number] END OF REPORT [facility] 2021-11-16 15:55:00 [facility] Hospitalist Progress Note REPORT#:[id number] REPORT STATUS: Signed DATE:11/16/21 TIME:155 PATIENT: IRA RAYA UNIT #: [id number] ROOM/BED: [place] [address] : 54 AGE: 66 SEX: M ATTEND: Jose Mcfarlane MD ADM AUTHOR: Mandy Devlin MD * ALL edits or amendments must be made on the electronic/computer document * Subjective Chief complaint: LEFT INDEX FINGER INFECTION Review of Systems Respiratory: Denies: SOB. Cardiovascular: Denies: chest pain. GI: Denies: nausea, vomiting. Objective General VS/I O: Vital Signs: Date Time Temp Pulse Resp B/P B/P Pulse O2 O2 Flow FiO2 Mean Ox Delivery Rate 11/16 1543 36.3 134 17 109/40 62.7 97 Room air 11/16 1232 37.1 66 17 112/77 88.6 97 Room air 11/16 0754 36.3 60 17 121/82 94.7 96 Room air 11/16 0444 51 99 11/16 0439 36.4 73 16 113/75 87.8 11/16 0032 36.3 68 16 106/73 84.0 97 11/15 2128 36.7 70 16 105/71 82.3 99 11/15 1912 65 19 108/55 72 98 Room air 11/15 1838 63 18 109/65 79 99 Room air 11/15 1636 36.1 70 22 94/55 68 98 Room air 24 hour I O ending at 0700: 11/16 0700 11/15 1900 Intake Total Output Total Balance Patient 129 kg Weight Weight Stated/Reported Measurement Method PATIENT WEIGHT: Weight (lb): Weight (oz): Weight (kg): 129.000 Physical Exam General appearance: alert, awake Cardiovascular: normal heart sounds, regular rate rhythm Respiratory: decreased breath sounds, no distress Abdomen: non-tender, soft Extremities: distal left index finger with dry gangrene, swelling and warmth , tender to touch Neuro/GRAIN ELEVATOR MOTOR STARTER: alert, normal speech Diagnosis, Assessment Plan Free Text DxA P Notes Free text DxA P notes: Problem List/A P: 1. Gangrene of finger of left hand ortho consulted continue IV vancomycin and cefepime Follow culture trend lactate NPO after midnight pain management as needed Pending recommendation from the surgeon 2. ESRD on dialysis nephrology consulted Free Text A P: DVT ppx: SCDs Code status: Full at 1557 RPT #: [id number] END OF REPORT [facility] 2021-11-16 15:40:00 [facility]) Orthopaedic Consult Note REPORT#:[id number] REPORT STATUS: Signed DATE:11/16/21 TIME:1540 PATIENT: IAR RAYA UNIT #: [id number] ROOM/BED: [place] [id number] : 54 AGE: 66 SEX: M ATTEND: Jose Mcfarlane MD ADM AUTHOR: Amita Gr MD * ALL edits or amendments must be made on the electronic/computer document * History of Present Illness Free Text HPI Notes Free Text HPI Notes: HPI Chief complaint: LEFT INDEX FINGER INFECTION PCP: PCP: Ira Ramirez MD HPI: Mr. Raya is a 66 yo M with HTN and ESRD on HD TTS who presents with worsening wound of the left index finger for the past several months. He says over the last several days the pain and swelling have gotten worse. He also reports warmth in his left finger and hand. Denies fever, nausea, vomiting. Admitted for dry gangrene and cellulitis. Ortho contacted in the ED. Patient was seen by me recently, was admitted in hospital and treated with IV antibiotics, We recommend continue antibiotics treatment, and get localization of gangrene of the finger tip. Patient complains of worsening of pain and swelling in finger Informant/historian: patient History - Adult longitudinal Additional medical history: HTN ESRD on dialysis Additional surgical history: appendectomy, cholecystectomy Additional family history: noncontributory Alcohol use: Denies EtOH use Drug use: Denies recreational drugs Smoking status: Smoking status for patients 13 years old or older: Never Smoker Allergies: Coded Allergies: amoxicillin (From AUGMENTIN) (Mild, DIARRHEA 11/15/21) clavulanic acid (From AUGMENTIN) (Mild, DIARRHEA 11/15/21) Uncoded Allergies: MORVASC (Severe, SWELLING 11/15/21) Free text PMH notes: History Past Medical Surgical Hx Patient History: 1. Cellulitis of left hand 2. Gangrene of finger of left hand 3. ESRD on dialysis 4. Lactic acidosis Additional medical history: HTN ESRD on dialysis Additional surgical history: appendectomy, cholecystectomy Family History Additional family history: noncontributory Social History Alcohol use: Denies EtOH use Drug use: Denies recreational drugs Smoking status: Smoking status for patients 13 years old or older: Never Smoker Medication/Allergy-Vaccine Hx Allergies: Coded Allergies: amoxicillin (From AUGMENTIN) (Mild, DIARRHEA 11/15/21) clavulanic acid (From AUGMENTIN) (Mild, DIARRHEA 11/15/21) Uncoded Allergies: MORVASC (Severe, SWELLING 11/15/21) Review of Systems Free Text ROS Notes Free Text ROS Notes: Review of Systems Constitutional: Denies: chills, fever. Skin: Reports: swelling. Denies: itching. Allergy/Immun: Denies: itching, sneezing. Eyes: Denies: diplopia, eye pain. ENT: Denies: sore throat, throat pain. Respiratory: Denies: HWANG (dyspnea on exertion), SOB. Cardiovascular: Denies: chest pain, palpitations. GI: Denies: abdominal pain, nausea. : Denies: dysuria, frequency. Musculoskeletal: Reports: arthritis, extremity pain. Heme: Denies: bleeding, bruising. Neuro: Denies: numbness, weakness. Objective VS: Last Documented: Result Date Time Pulse Ox 97 11/16 1543 B/P 109/40 11/16 1543 B/P Mean 62.7 11/16 1543 O2 Delivery Room air 11/16 1543 Temp 97.3 11/16 1543 Pulse 134 11/16 1543 Resp 17 11/16 1543 PATIENT WEIGHT: Weight (lb): Weight (oz): Weight (kg): 129.000 Free Text Obj Notes Free Text Obj Notes: Physical Exam VS/I O: Vital Signs Date Temp Pulse Resp B/P B/P Mean Pulse Ox FiO2 11/15 36.1 63-70 18-22 94-109/55-65 68-79 98-99 Last Documented: Result Date Time Pulse Ox 98 11/16 1911 B/P 108/55 11/16 1911 B/P Mean 72 11/16 1911 O2 Delivery Room air 11/16 1911 Pulse 65 11/16 1911 Resp 19 11/16 1911 Temp 36.1 11/15 1636 Patient Weight and BMI Weight (kg): 129.000 BMI: 39.7 General appearance: obese, alert Head/Eyes: atraumatic, normocephalic ENT: moist mucosal membranes, normal nose Cardiovascular: normal heart sounds, regular rate rhythm Respiratory: decreased breath sounds, no distress Abdomen: non-tender, soft Extremities: distal left index finger with dry gangrene at tip slight proximal to DIP joint, swelling and warmth , tender to touch, No drainage from the wound. Sensation decrease with light touch due to underlying neuropathy Neuro/GRAIN ELEVATOR MOTOR STARTER: alert, normal speech Skin: abnormal color, abnormal temperature Psychiatry: normal affect, normal mood Diagnosis, Assessment Plan Free Text A P: X ray of left hand: Osteomyelitis of distal and distal aspect of middle phalanx. Diagnosis, Assessment Plan Problem List/A P: 1. Left index finger gangrene 2. Possible infection of flexor tendon sheath Plan: Recommend surgery I D of left index finger with amputation possibly at middle phalanx level Surgery is scheduled for today, pending OR availibility Risks and benefits were discussed, potential complications were discussed that include but not limited to infection, open wound, neuroma formation, stump pain, phantom pain and sensation, loss of hand interventional nurse and pinch strength continue IV vancomycin and cefepime Pain management 2. ESRD on dialysis nephrology consulted Free Text A P: DVT ppx: SCDs Code status: Full at 1553 [facility] #: [id number] END OF REPORT [facility] 2021-11-16 11:19:00 [facility]) Nephrology Consultation Note REPORT#:[id number] REPORT STATUS: Signed DATE:11/16/21 TIME:1119 PATIENT: IRA RAYA UNIT #: [id number] ROOM/BED: [place] [id number] : 54 AGE: 66 SEX: M ATTEND: Jose Mcfarlane MD ADM AUTHOR: Genaro Gupta MD * ALL edits or amendments must be made on the electronic/computer document * History of Present Illness Requesting clinician: Dr Mcfarlane. Reason for consult: ESRD Free Text HPI Notes Free Text HPI Notes: .66-year-old male with history of hypertension, ESRD on hemodialysis, admitted to the hospital with left infection infection. Denies Sortness of breath, chest pain. Patient is ESRD on hemodialysis. Hemodialysis on Tuesday. . History - Adult longitudinal Additional medical history: HTN ESRD on dialysis Additional surgical history: appendectomy, cholecystectomy Additional family history: noncontributory Alcohol use: Denies EtOH use Drug use: Denies recreational drugs Smoking status: Smoking status for patients 13 years old or older: Never Smoker Allergies: Coded Allergies: amoxicillin (From AUGMENTIN) (Mild, DIARRHEA 11/15/21) clavulanic acid (From AUGMENTIN) (Mild, DIARRHEA 11/15/21) Uncoded Allergies: MORVASC (Severe, SWELLING 11/15/21) Review of Systems Free Text ROS Notes Free Text ROS Notes: 10 point review of system performed and documented in subjective, otherwise negative. Objective General VS/I O: Vital Signs: Date Time Temp Pulse Resp B/P B/P Pulse O2 O2 Flow FiO2 Mean Ox Delivery Rate 11/16 1905 36.9 108 16 96/66 76.5 93 Room air 11/16 1543 36.3 134 17 109/40 62.7 97 Room air 11/16 1232 37.1 66 17 112/77 88.6 97 Room air 11/16 0754 36.3 60 17 121/82 94.7 96 Room air 11/16 0444 51 99 11/16 0439 36.4 73 16 113/75 87.8 11/16 0032 36.3 68 16 106/73 84.0 97 24 hour I O ending at 0700: 11/16 0700 11/15 1900 Intake Total Output Total Balance Patient 129 kg Weight Weight Stated/Reported Measurement Method PATIENT WEIGHT: Weight (lb): Weight (oz): Weight (kg): 129.000 Medications: Active Meds + DC'd Last 24 Hrs Cefepime HCl (MAXIPIME) 1 GM Q24H IV Sodium Chloride (0.9% Sodium Chloride) 50 ML Miscellaneous Information (VANCOMYCIN PHARMACY TO DOSE) 1 EACH ASDIR IV Morphine Sulfate (morphine Sulfate) 2 MG Q6H PRN PRN IV Tramadol HCl (ULTRAM) 50 MG Q6H PRN PRN PO Acetaminophen (TYLENOL) 650 MG Q4H PRN PRN PO Ondansetron HCl (ZOFRAN) 4 MG Q4H PRN PRN IV Physical Exam General appearance: oriented Head/eyes: normocephalic ENT: normal nose Neck: no JVD C-Spine clearance: no midline tenderness Cardiovascular: no murmur Respiratory: no distress Abdomen: soft Genitourinary: no gómez Extremities: no edema Musculoskeletal: no tendereness Neuro/GRAIN ELEVATOR MOTOR STARTER: alert, oriented X 3 Results Findings/Data: Laboratory Tests 11/16 11/16 11/15 11/15 11/15 0635 0635 1816 1702 1702 Chemistry Sodium (134 - 147 mmol/L) 134 134 Potassium (3.4 - 5.0 mmol/L) 3.5 3.4 Chloride (100 - 108 mmol/L) 102 100 Carbon Dioxide (21 - 32 mmol/L) 25 27 Anion Gap (4.0 - 15.0 GAP calc) 7.0 7.0 BUN (7 - 18 MG/DL) 16 13 Creatinine (0.8 - 1.3 MG/DL) 5.3 H 4.9 H Glomerular Filtr Rate (>60 estGFR) 14 L 13 L Glucose (70 - 110 MG/DL) 57 L 96 Lactic Acid (0.4 - 2.0 mmol/L) 1.6 2.2 H 2.5 H Calcium (8.5 - 10.1 MG/DL) 9.2 9.6 Total Bilirubin (0.2 - 1.2 MG/DL) 0.50 Direct Bilirubin (0.00 - 0.30 MG/DL) 0.30 Indirect Bilirubin (0.2 - 1.2 MG/DL) 0.20 AST (15 - 37 Unit/L) 14 L ALT (12 - 78 Unit/L) 11 L Total Alk Phosphatase (50 - 136 Unit/L) 168 H Troponin I High Sens (0 - 54 ng/L) 10.6 Total Protein (6.4 - 8.2 G/DL) 6.9 Albumin (3.4 - 5.0 G/DL) 2.7 L Laboratory Tests 11/15 1701 Hematology WBC (3.5 - 11.0 K/mm3) 5.7 RBC (4.70 - 6.10 M/mm3) 4.43 L Hgb (12.3 - 15.9 G/DL) 10.7 L Hct (35.8 - 46.7 %) 35.7 L MCV (86.3 - 98.9 Fl) 80.6 L MCH (28.9 - 34.4 pg) 24.2 L MCHC (32.1 - 34.5 G/DL) 30.0 L RDW (11.5 - 14.5 SD) 20.2 H Plt Count (150 - 450 K/mm3) 175 MPV (7.0 - 9.6 fL) 10.60 H Neut % (Auto) (40 - 76 %) 72.2 Lymph % (Auto) (20.5 - 51.1 %) 15.9 L Haralson % (Auto) (1.7 - 9.3 %) 10.2 H Eos % (Auto) (0.0 - 6.0 %) 0.5 Baso % (Auto) (0.0 - 2.0 %) 0.7 Neut # (Auto) (1.8 - 7.6 K/mm3) 4.1 Lymph # (Auto) (0.6 - 3.0 K/mm3) 0.9 Har[place]on # (Auto) (0.2 - 1.5 K/mm3) 0.6 Eos # (Auto) (0.0 - 0.4 K/mm3) 0.0 Baso # (Auto) (0.0 - 0.2 K/mm3) 0.0 Abs Immat Gran (auto) (0.00 - 0.03 x10 3/uL) 0.03 Add Manual Diff (CRITERIA DIFF/SCN) NO Immature Gran % (0.0 - 5.0 %) 0.5 Nucleated RBC % (0.0 - 1.0 /100WBC%) 0.0 Laboratory Tests 11/15 1705 Serology SARS-CoV-2 Ag (Rapid) (Negative) NEGATIVE Diagnosis, Assessment Plan Free Text DxA P Notes Free Text DxA P Notes: 1. ESRD on hemodialysis. Hemodialysis on Tuesday and Tuesday. 2. Hypertension. 3. Left finger gangrene. 4. Chronic anemia of renal disease. 5. Secondary hyperparathyroidism. Recommendations Renal replacement diet. Limit fluid to 1 L a day. No need for hemodialysis today. Check phosphorus, adjust phosphorus binders. Epogen subcutaneous as needed. Thank you for consultation pulmonary question please call [phone] at [phone] RPT #: [id number] END OF REPORT [facility] 2021-11-16 10:54:00 [facility] Infect Disease Consult Note REPORT#:[id number] REPORT STATUS: Signed DATE:11/16/21 TIME:1054 PATIENT: IRA RAYA UNIT #: [id number] ROOM/BED: [place] [address] : 54 AGE: 66 SEX: M ATTEND: Jose Mcfarlane MD ADM AUTHOR: Arnold Nance MD * ALL edits or amendments must be made on the electronic/computer document * History of Present Illness Reason for consult: Finger infection HPI: 66 yo male with HTN and ESRD on HD TTS who presented with worsening wound of the left index finger for several months. He developed worsening pain and swelling over the last few days. Pt was admitted for left index finger gangrene. History - Adult longitudinal Additional medical history: HTN ESRD on dialysis Additional surgical history: appendectomy, cholecystectomy Additional family history: noncontributory Alcohol use: Denies EtOH use Drug use: Denies recreational drugs Smoking status: Smoking status for patients 13 years old or older: Never Smoker Allergies: Coded Allergies: amoxicillin (From AUGMENTIN) (Mild, DIARRHEA 11/15/21) clavulanic acid (From AUGMENTIN) (Mild, DIARRHEA 11/15/21) Uncoded Allergies: MORVASC (Severe, SWELLING 11/15/21) Review of Systems Constitutional: Denies: fever. Skin: Denies: rash. Allergy/Immun: Denies hives Eyes: Denies discharge ENT: Denies: throat pain. Respiratory: Denies: productive cough (sputum). Cardiovascular: Denies: chest pain. GI: Denies: abdominal pain. : Denies: dysuria. Musculoskeletal: Denies: joint swelling. Objective General VS/I O: Last Documented: Result Date Time Pulse Ox 96 11/16 753 B/P 121/82 11/16 0754 B/P Mean 94.7 11/164 O2 Delivery Room air 11/16 753 Temp 36.3 11/16 0754 Pulse 60 11/164 Resp 17 11/16 0754 Vital Signs Date Temp Pulse Resp B/P B/P Mean Pulse Ox FiO2 11/15-11/16 36.1-36.7 51-73 16-22 94-121/55-82 68-94.7 96-99 24 hour I O ending at 0700: 11/16 0700 11/15 1900 Intake Total Output Total Balance Patient 129 kg Weight Weight Stated/Reported Measurement Method PATIENT WEIGHT: Weight (lb): Weight (oz): Weight (kg): 129.000 Physical Exam General appearance: chronically ill appearing, alert, awake, oriented, no acute distress, mental status normal, no respiratory distress Head/Eyes: atraumatic, clear cornea, EOMI, normal conjunctiva/sclera, normal eyelids/periorb, normocephalic ENT: moist mucosal membranes, normal nose, normal pharynx Neck: full range of motion, non-tender, supple/no meningismus, no masses or swelling Cardiovascular: regular rate rhythm Respiratory: aerating well, symmetric expansion, no distress Abdomen: non-tender, normal bowel sounds, soft, no CVA tenderness, no distention , no guarding, no mass/organomegaly, no rebound Genitourinary: no flank pain Extremities: Left index finger with dry gangrene and surrounding edema Musculoskeletal: no joint swelling Neuro/GRAIN ELEVATOR MOTOR STARTER: alert, oriented X 3, CNII-XII intact, normal speech Skin: normal turgor, no rash Psychiatry: normal affect, normal judgment/insight, normal mood Diagnosis, Assessment Plan Free Text DxA P Notes Free text DxA P notes: Laboratory Tests 11/16/21 0635: [Embedded Image Not Available] 11/15/21 1702: [Embedded Image Not Available] Imaging: CXR no consolidation 11/15 Assessment: 1. Left index finger dry gangrene with superimposed cellulitis. 2. ESRD. Plan: 1. Cefepime (day 2). 2. Can stop vancomycin if blood cxs and MRSA screening are neg. 3. Ortho sx consulted. 4. Monitor CBC and CMP. 5. Monitor CRP. 6. Pt will not need long-term IV abxs if all infected/gangrenous tissue is amputated. Thank you for this consult. at 1217 RPT #: [id number] END OF REPORT [facility] 2021-11-15 20:05:00 [facility] ([facility]) Hospitalist History Physical REPORT#:[id number] REPORT STATUS: Signed DATE:11/15/21 TIME:2004 PATIENT: IRA RAYA UNIT #: [id number] ROOM/BED: [place] [id number] : 54 AGE: 66 SEX: M ATTEND: Jose Mcfarlane MD ADM AUTHOR: Joesph Kenyon PA-C * ALL edits or amendments must be made on the electronic/computer document * History of Present Illness HPI Chief complaint: LEFT INDEX FINGER INFECTION PCP: PCP: Ira Ramirez MD HPI: Mr. Raya is a 66 yo M with HTN and ESRD on HD TTS who presents with worsening wound of the left index finger for the past several months. He says over the last several days the pain and swelling have gotten worse. He also reports warmth in his left finger and hand. Denies fever, nausea, vomiting. Admitted for dry gangrene and cellulitis. Ortho contacted in the ED. Informant/historian: patient History Past Medical Surgical Hx Patient History: 1. Cellulitis of left hand 2. Gangrene of finger of left hand 3. ESRD on dialysis 4. Lactic acidosis Additional medical history: HTN ESRD on dialysis Additional surgical history: appendectomy, cholecystectomy Family History Additional family history: noncontributory Social History Alcohol use: Denies EtOH use Drug use: Denies recreational drugs Smoking status: Smoking status for patients 13 years old or older: Never Smoker Medication/Allergy-Vaccine Hx Allergies: Coded Allergies: amoxicillin (From AUGMENTIN) (Mild, DIARRHEA 11/15/21) clavulanic acid (From AUGMENTIN) (Mild, DIARRHEA 11/15/21) Uncoded Allergies: MORVASC (Severe, SWELLING 11/15/21) Review of Systems Constitutional: Denies: chills, fever. Skin: Reports: swelling. Denies: itching. Allergy/Immun: Denies: itching, sneezing. Eyes: Denies: diplopia, eye pain. ENT: Denies: sore throat, throat pain. Respiratory: Denies: HWANG (dyspnea on exertion), SOB. Cardiovascular: Denies: chest pain, palpitations. GI: Denies: abdominal pain, nausea. : Denies: dysuria, frequency. Musculoskeletal: Reports: arthritis, extremity pain. Heme: Denies: bleeding, bruising. Neuro: Denies: numbness, weakness. Physical Exam VS/I O: Vital Signs Date Temp Pulse Resp B/P B/P Mean Pulse Ox FiO2 11/15 36.1 63-70 18-22 94-109/55-65 68-79 98-99 Last Documented: Result Date Time Pulse Ox 98 11/16 1911 B/P 108/55 11/16 1911 B/P Mean 72 11/16 1911 O2 Delivery Room air 11/16 1911 Pulse 65 11/16 1911 Resp 19 11/16 1911 Temp 36.1 11/15 1636 Patient Weight and BMI Weight (kg): 129.000 BMI: 39.7 General appearance: obese, alert Head/Eyes: atraumatic, normocephalic ENT: moist mucosal membranes, normal nose Cardiovascular: normal heart sounds, regular rate rhythm Respiratory: decreased breath sounds, no distress Abdomen: non-tender, soft Extremities: distal left index finger with dry gangrene, swelling and warmth , tender to touch Neuro/GRAIN ELEVATOR MOTOR STARTER: alert, normal speech Skin: abnormal color, abnormal temperature Psychiatry: normal affect, normal mood Diagnosis, Assessment Plan Problem List/A P: 1. Gangrene of finger of left hand ortho consulted continue IV vancomycin and cefepime blooid cultures collected trend lactate NPO after midnight pain management as needed 2. ESRD on dialysis nephrology consulted Free Text A P: DVT ppx: SCDs Code status: Full at 2012 RPT #: [id number] END OF REPORT [facility] 2021-11-15 20:05:00 [facility] ([facility]) Hospitalist History Physical REPORT#:[id number] REPORT STATUS: Signed DATE:11/15/21 TIME:2004 PATIENT: IRA RAYA UNIT #: [id number] ROOM/BED: [place] [address] : 54 AGE: 66 SEX: M ATTEND: Mandy Devlin MD ADM AUTHOR: Joesph Kenyon PA-C * ALL edits or amendments must be made on the electronic/computer document * Joesph Kenyon 11/15/212004: History of Present Illness HPI Chief complaint: LEFT INDEX FINGER INFECTION PCP: PCP: Ira Ramirez MD HPI: Mr. Raya is a 66 yo M with HTN and ESRD on HD TTS who presents with worsening wound of the left index finger for the past several months. He says over the last several days the pain and swelling have gotten worse. He also reports warmth in his left finger and hand. Denies fever, nausea, vomiting. Admitted for dry gangrene and cellulitis. Ortho contacted in the ED. Informant/historian: patient History Past Medical Surgical Hx Patient History: 1. Cellulitis of left hand 2. Gangrene of finger of left hand 3. ESRD on dialysis 4. Lactic acidosis Additional medical history: HTN ESRD on dialysis Additional surgical history: appendectomy, cholecystectomy Family History Additional family history: noncontributory Social History Alcohol use: Denies EtOH use Drug use: Denies recreational drugs Smoking status: Smoking status for patients 13 years old or older: Never Smoker Medication/Allergy-Vaccine Hx Allergies: Coded Allergies: amoxicillin (From AUGMENTIN) (Mild, DIARRHEA 11/15/21) clavulanic acid (From AUGMENTIN) (Mild, DIARRHEA 11/15/21) Uncoded Allergies: MORVASC (Severe, SWELLING 11/15/21) Review of Systems Constitutional: Denies: chills, fever. Skin: Reports: swelling. Denies: itching. Allergy/Immun: Denies: itching, sneezing. Eyes: Denies: diplopia, eye pain. ENT: Denies: sore throat, throat pain. Respiratory: Denies: HWANG (dyspnea on exertion), SOB. Cardiovascular: Denies: chest pain, palpitations. GI: Denies: abdominal pain, nausea. : Denies: dysuria, frequency. Musculoskeletal: Reports: arthritis, extremity pain. Heme: Denies: bleeding, bruising. Neuro: Denies: numbness, weakness. Physical Exam VS/I O: Vital Signs Date Temp Pulse Resp B/P B/P Mean Pulse Ox FiO2 11/15 36.1 63-70 18-22 94-109/55-65 68-79 98-99 Last Documented: Result Date Time Pulse Ox 98 11/16 1911 B/P 108/55 11/16 1911 B/P Mean 72 11/16 1911 O2 Delivery Room air 11/16 1911 Pulse 65 11/16 1911 Resp 19 11/16 1911 Temp 36.1 11/15 1636 Patient Weight and BMI Weight (kg): 129.000 BMI: 39.7 General appearance: obese, alert Head/Eyes: atraumatic, normocephalic ENT: moist mucosal membranes, normal nose Cardiovascular: normal heart sounds, regular rate rhythm Respiratory: decreased breath sounds, no distress Abdomen: non-tender, soft Extremities: distal left index finger with dry gangrene, swelling and warmth , tender to touch Neuro/GRAIN ELEVATOR MOTOR STARTER: alert, normal speech Skin: abnormal color, abnormal temperature Psychiatry: normal affect, normal mood Diagnosis, Assessment Plan Problem List/A P: 1. Gangrene of finger of left hand ortho consulted continue IV vancomycin and cefepime blooid cultures collected trend lactate NPO after midnight pain management as needed 2. ESRD on dialysis nephrology consulted Free Text A P: DVT ppx: SCDs Code status: Full Jose Mcfarlane 11/19/21 1526: Attestations Physician Attestation Agree w/findings plan: Appreciate note from AUTOMATED PROCESS OPERATOR Agree with the history and physical findings Lab works noted Imaging noted as well Findings were discussed with the KNAWAL and Staff at 2012 at 1526 RPT #: [id number] END OF REPORT [facility] 2021-11-15 19:59:00 [facility] ([facility]) Pharmacy Prog.Note-Vancomycin REPORT#:[id number] REPORT STATUS: Signed DATE:11/15/21 TIME:1958 PATIENT: IRA RAYA UNIT #: [id number] ROOM/BED: [place] : 54 AGE: 66 SEX: M ATTEND: Jose Mcfarlane MD ADM AUTHOR: Te Ramos [facility] * ALL edits or amendments must be made on the electronic/computer document * Vancomycin Vancomycin Medication Therapy Goal: trough 10-15 mcg/mL Indication for treatment: SSTI - GANGREEN ON LEFT INDEX Site of infection: suspected, known Current therapy: DOSING PER LEVELS Day of therapy: DAY 1 Weight: Actual weight (kg): 129 Labs: Laboratory Test : 11/15 1701 Chemistry BUN (7 - 18 MG/DL) 13 Creatinine (0.8 - 1.3 MG/DL) 4.9 H Hematology WBC (3.5 - 11.0 K/mm3) 5.7 Microbiology: 11/15 192 NASAL: MRSA Screen - ORD 11/15 172 BLOOD: Blood Culture - RECD 11/15 1701 BLOOD: Blood Culture - RECD Treatment plan: consult, initiation of therapy Regimen: PATIENT WITH ESRD ON DIALYSIS VANC 2G X 1 DOSING PER LEVELS DRAW RANDOM VANC LEVEL ON 11/17 @ 0600 at 2000 RPT #: [id number] END OF REPORT [facility] 2021-11-15 16:51:00 [facility] ([facility]) EMERGENCY PROVIDER REPORT REPORT#:[id number] REPORT STATUS: Signed DATE:11/15/21 TIME:1650 PATIENT: IRA RAYA UNIT #: [id number] ROOM/BED: [place] : 53 AGE: 66 SEX: M PCP PHYS: Ira Ramirez MD SERVICE AUTHOR: Richy Barrios DO * ALL edits or amendments must be made on the electronic/computer document * HPI-General Illness General Confirmed Patient Yes Initial Greet Date/Time 11/15/21 1637 Presentation Chief Complaint __ (left indef finger pain) Hx Obtained From Patient, Spouse Sudden in Onset? No Onset Occurred Weeks ago Symptom Duration Since onset Progression since Onset Gradually worsening Caused by No trauma by history Location Hand L Quality Painful Radiation Does not radiate. Severity: Onset Moderate Severity: Current Mild Associated with Denies: Abdominal pain, Bleeding, Bruising, Chest pain, Cough, Discharge, Fever, Rash, Weak extremity, Weakness. Exacerbated by Nothing Relieved by Nothing Free Text HPI Notes Free Text HPI Notes Patient states that he has had a wound to his left index finger for several months that has gotten worse. States now he has had swelling to the left hand and pain to left hand for the past several days is gotten worse. No fever, chills, sweats, numbness, tingling. Patient receives dialysis Tuesday, and Tuesday and last had a full session of dialysis yesterday. Review of Systems ROS Statements Complete sys rev neg except as marked. Review of Systems Constitutional Denies: Chills, Fatigue, Fever. Respiratory Denies: Cough, non-productive, Cough, productive, Shortness of breath. Cardiovascular Denies: Chest pain, Palpitations. GI Denies: Nausea, Vomiting. Musculoskeletal Reports: Extremity pain, Extremity swelling, Joint pain, Joint swelling. Skin Reports: Swelling. Denies: Rash. Past Medical History - Adult Stated Complaint INFECTED FINGER Allergies Coded Allergies: amoxicillin (From AUGMENTIN) (Mild, DIARRHEA 11/15/21) clavulanic acid (From AUGMENTIN) (Mild, DIARRHEA 11/15/21) Uncoded Allergies: MORVASC (Severe, SWELLING 11/15/21) Additional Medical History HTN ESRD on dialysis Smoking status: Smoking status for patients 13 years old or older: Never Smoker Physical Exam Vital Signs Vital Signs First Documented: Result Date Time Pulse Ox 98 11/15 1636 B/P 94/55 / 1636 B/P Mean 68 11/15 1636 O2 Delivery Room air 11/15 1636 Temp 97.0 11/15 1636 Pulse 70 / 1636 Resp 22 11/15 1636 Last Documented: Result Date Time Pulse Ox 99 11/15 1838 B/P 109/65 11/15 1838 B/P Mean 79 11/15 1838 O2 Delivery Room air 11/15 1838 Pulse 63 11/15 1838 Resp 18 11/15 1837 Temp 97.0 11/15 1636 Review of Vital Signs Reviewed Physical Exam General/Const General/Const Awake, Alert, No acute distress MS Head Head Normocephalic Eyes Eyes PERRL, EOMI Ears/Nose/Throat Ears/Nose/Throat Airway patent, Mucous membranes moist, Pharynx NL MS Neck Neck Supple, No meningismus, Full range of motion, No swelling, Non-tender, No masses Resp/Chest Respiratory/Chest Breath sounds NL, Breath sounds = bilat, No respiratory distress, No rales, No rhonchi, No wheezing Cardiovascular Cardiovascular Heart rate NL, Regular rhythm, Heart sounds NL, Cap refill not delayed, Peripheral circulation NL MS Back Back Atraumatic, Inspection NL Lymphatic Lymphatic No gross adenopathy MS Upper Extrem Upper Extremity/MS Inspection NL, No swelling, Non-tender, No erythema, No deformity, Neurologic intact, Vascular intact, No clubbing/cyanosis Text/Dict Notes Fistula present to patient's left forearm. Thrill palpated. MS Wrist/Hand Text/Dict Note Distal left index finger with dry gangrene. There is also swelling to the rest of this digit as well as the dorsum of the left hand. Mildly tender to touch. No drainage, crepitus, induration. All other fingers neurovascularly intact. Left Wrist Negative: Swelling present, Tenderness present, Tender snuffbox, Tender carpal tunnel, Carpal tunnel signs, Ecchymosis present, Erythema present, Warmth present, ROM reduced, Joint effusion present, Ganglion cyst present, Deformity present, Open fracture present, Pulse radial absent, Pulse radial decreased, Pulse ulnar absent, Pulse ulnar decreased, Neuro deficit present. MS Lower Extrem Lower Ext/Pelvis/MS Atraumatic, Inspection NL Skin Skin Warm, Dry, Turgor NL Neurologic Neurologic Oriented X3, Speech NL, No motor deficits, No sensory deficits Interpretation Diagnostics Lab Results Interpretation Results Laboratory Tests 11/15/21 1702: [Embedded Image Not Available] Laboratory Tests: 11/15 11/15 11/15 11/15 1816 1706 1702 1702 Chemistry Sodium (134 - 147 mmol/L) 134 Potassium (3.4 - 5.0 mmol/L) 3.4 Chloride (100 - 108 mmol/L) 100 Carbon Dioxide (21 - 32 mmol/L) 27 Anion Gap (4.0 - 15.0 GAP calc) 7.0 BUN (7 - 18 MG/DL) 13 Creatinine (0.8 - 1.3 MG/DL) 4.9 H Glomerular Filtr Rate (>60 estGFR) 13 L Glucose (70 - 110 MG/DL) 96 Lactic Acid (0.4 - 2.0 mmol/L) 2.2 H 2.5 H Calcium (8.5 - 10.1 MG/DL) 9.6 Total Bilirubin (0.2 - 1.2 MG/DL) 0.50 Direct Bilirubin (0.00 - 0.30 MG/DL) 0.30 Indirect Bilirubin (0.2 - 1.2 MG/DL) 0.20 AST (15 - 37 Unit/L) 14 L ALT (12 - 78 Unit/L) 11 L Total Alk Phosphatase (50 - 136 Unit/L) 168 H Troponin I High Sens (0 - 54 ng/L) 10.6 Total Protein (6.4 - 8.2 G/DL) 6.9 Albumin (3.4 - 5.0 G/DL) 2.7 L Hematology WBC (3.5 - 11.0 K/mm3) 5.7 RBC (4.70 - 6.10 M/mm3) 4.43 L Hgb (12.3 - 15.9 G/DL) 10.7 L Hct (35.8 - 46.7 %) 35.7 L MCV (86.3 - 98.9 Fl) 80.6 L MCH (28.9 - 34.4 pg) 24.2 L MCHC (32.1 - 34.5 G/DL) 30.0 L RDW (11.5 - 14.5 SD) 20.2 H Plt Count (150 - 450 K/mm3) 175 MPV (7.0 - 9.6 fL) 10.60 H Neut % (Auto) (40 - 76 %) 72.2 Lymph % (Auto) (20.5 - 51.1 %) 15.9 L Haralson % (Auto) (1.7 - 9.3 %) 10.2 H Eos % (Auto) (0.0 - 6.0 %) 0.5 Baso % (Auto) (0.0 - 2.0 %) 0.7 Neut # (Auto) (1.8 - 7.6 K/mm3) 4.1 Lymph # (Auto) (0.6 - 3.0 K/mm3) 0.9 Haralson # (Auto) (0.2 - 1.5 K/mm3) 0.6 Eos # (Auto) (0.0 - 0.4 K/mm3) 0.0 Baso # (Auto) (0.0 - 0.2 K/mm3) 0.0 Abs Immat Gran (auto) (0.00 - 0.03 x10 3/uL) 0.03 Add Manual Diff (CRITERIA DIFF/SCN) NO Immature Gran % (0.0 - 5.0 %) 0.5 Nucleated RBC % (0.0 - 1.0 /100WBC%) 0.0 Serology SARS-CoV-2 Ag (Rapid) (Negative) NEGATIVE Microbiology: Date/Time Procedure - Status Source Growth 11/15 172 Blood Culture - RECD BLOOD 11/15 1701 Blood Culture - RECD BLOOD Recent Impressions: RADIOLOGY - XR HAND 3+V LT 11/15 1729 Report Impression - Status: SIGNED Entered: 11/15/2021 1752 Impression: 1. Erosive changes and fragmentation, possibly pathologic fracture, at the 2nd middle phalanx distally. Diffuse soft tissue swelling involves the 2nd digit. No evidence of soft tissue gas however. 2. Diffuse osteopenia noted. Impression By: [email or web address] - Bindu Villegas MD RADIOLOGY - XR CHEST 1 V 11/15 1735 Report Impression - Status: SIGNED Entered: 11/15/2021 1744 IMPRESSION: No acute cardiopulmonary disease. Impression By: [email or web address] - Chris You M.D. ECG #1 Interpretation Text/Dict Note Atrial fibrillation Rate 76 Normal axis No acute ST segment changes Nonspecific T wave changes No heart blocks Date 11/15/21 Time 1701 Interpreted by and reviewed by me Re-Evaluation MDM Re-Evaluation/Progress #1 Text/Dict Note Physical exam unchanged. Appears comfortable. Spouse at bedside. Time of Re-Eval 1909 Re-Eval Status Unchanged ED Course Medication(s) Ordered Medication(s) Ordered: Anti-Infective Agents Sig/Sue Start time Last Medication Dose Route Stop Time Status Admin Piperacillin Sod/ 4.5 GM X1ED STA 11/15 1649 DC 11/15 Tazobactam Sod IV 11/15 1737 1708 Sodium Chloride 100 ML Vancomycin HCl 1,000 MG X1ED STA 11/15 1650 DC / Sodium Chloride 250 ML IV 11/15 1819 1708 Electrolytic, Caloric, And Mallika Sig/Sue Start time Last Medication Dose Route Stop Time Status Admin Sodium Chloride 250 ML .Q1H 11/15 1700 DC /08 IV 11/15 1759 1707 Consultation Consultation Referral/Consult Name Amita Gr MD Film Laboratory Technician Called Ortho hand Requested Call Time 1914 Requested Call Date 11/15/21 Call Returned Call returned Call Returned Time 1914 Call Returned Date 11/15/21 Film Laboratory Technician Will see patient Patient Discharge Departure Vital Signs/Condition Vital Signs First Documented: Result Date Time Pulse Ox 98 / 1636 B/P 94/55 / 1636 B/P Mean 68 11/15 1636 O2 Delivery Room air 11/15 1636 Temp 97.0 / 1636 Pulse 70 05/08 1636 Resp 22 /08 1636 Last Documented: Result Date Time Pulse Ox 99 / 1838 B/P 109/65 / 1838 B/P Mean 79 05/08 1838 O2 Delivery Room air / 1838 Pulse 63 05/08 1838 Resp 18 /08 1838 Temp 97.0 /08 1636 All vital signs available at the time of this entry have been reviewed. Clinical Impression Clinical Impression Primary Impression: Cellulitis of left hand Secondary Impressions: ESRD on dialysis, Gangrene of finger of left hand, Lactic acidosis Disposition Decision Admit Admit Physician Name Jose Mcfarlane MD Admit Physician Hospitalist Request Time 1919 Request Date 11/15/21 )( Admission Accepts Yes )( Accepted Time 1919 )( Accepted Date 11/15/21 Call Information will see patient, agrees with eval, agrees with plan Discharge/Care Plan Counseled Regarding Diagnosis, Lab results, Imaging studies, Need for admission at 1932 RPT #: [id number] END OF REPORT [facility] 2021-10-12 19:28:00 [facility] ([facility]) Nephrology Progress Note REPORT#:[id number] REPORT STATUS: Signed DATE:10/12/21 TIME:1927 PATIENT: IRA RAYA UNIT #: [id number] ROOM[address]BED: [address] : [birth year] AGE: 66 SEX: M ATTEND: Jose Mcfarlane MD ADM AUTHOR: Genaro Gupta MD * ALL edits or amendments must be made on the electronic/computer document * Subjective Chief complaint: End-stage renal disease Comments: Denies Sob. Review of Systems Free Text ROS Notes Free Text ROS Notes: 10 points ROS peformed and documented in subjective, otherwise negative. Objective General VS/I O: Vital Signs: Date Time Temp Pulse Resp B/P B/P Pulse O2 O2 Flow FiO2 Mean Ox Delivery Rate 10/12 1135 36.4 71 18 97/64 0.0 100 Room air 10/12 0804 36.3 70 18 98/65 75.9 94 Room air / 0421 36.8 72 16 106/72 82.9 98 10/11 2259 36.8 72 16 83/51 61.8 94 10/11 2116 37.3 76 16 84/57 66.0 96 24 hour I O ending at 0700: 10/12 0700 04/ 1900 Intake Total Output Total Balance Number 1 Bowel Movements Output, Emesis Medications Active Meds + DC'd Last 24 Hrs Famotidine (PEPCID) 20 MG DAILY 1800 PO (DCD) Famotidine (PEPCID) 40 MG DAILY 1800 PO (DC) Mupirocin (BACTROBAN) 1 APPLIC BID TOPICAL (DCD) Clindamycin HCl (CLEOCIN) 600 MG Q6H PO (DCD) Albumin Human (ALBUMINAR-25% 12.5 GM/50 ML) 25 GM BOLUS PRN IV (DC) Mannitol (MANNITOL 25%) 12.5 GM BOLUS PRN IV (DCD) Sodium Chloride (0.9% Sodium Chloride) 1,000 ML BOLUS PRN IV (DCD) Sodium Chloride (0.9% Sodium Chloride) 2,000 ML .Q24H PRN IV (DCD) Pantoprazole (PROTONIX) 40 MG DAILY@0600 PO (DCD) Amiodarone HCl (CORDARONE) 400 MG Q12HR PO (DCD) Cinacalcet (SENSIPAR) 30 MG BEDTIME PO (DCD) Sevelamer Carbonate (RENVELA) 800 MG C MEALS PO (DCD) Acetaminophen (TYLENOL) 650 MG Q6H PRN PRN PO (DCD) Hydrocodone Bitart/Acetaminophen (NORCO 7.5/325) 1 TAB Q6H PRN PRN PO ( DCD) Morphine Sulfate (morphine SULFATE) 4 MG Q4H PRN PRN IV (DCD) Ondansetron HCl (ZOFRAN) 4 MG Q6H PRN PRN IV (DCD) Physical Exam General appearance: awake Head/eyes: PERRL ENT: normal nose Neck: no JVD C-Spine clearance: no midline tenderness Cardiovascular: no murmur Respiratory: clear to auscultation Abdomen: non-tender, soft Genitourinary: no gómez Extremities: no edema Musculoskeletal: full range of motion Neuro/GRAIN ELEVATOR MOTOR STARTER: Awake Results Findings/Data: Laboratory Tests 10/12 0620 Chemistry Sodium (134 - 147 mmol/L) 137 Potassium (3.4 - 5.0 mmol/L) 4.0 Chloride (100 - 108 mmol/L) 101 Carbon Dioxide (21 - 32 mmol/L) 27 Anion Gap (4.0 - 15.0 GAP calc) 9.0 BUN (7 - 18 MG/DL) 21 H Creatinine (0.8 - 1.3 MG/DL) 7.0 H Glomerular Filtr Rate (>60 estGFR) 10 L Glucose (70 - 110 MG/DL) 71 Calcium (8.5 - 10.1 MG/DL) 9.0 Laboratory Tests 10/12 0620 Hematology WBC (3.5 - 11.0 K/mm3) 6.6 RBC (4.70 - 6.10 M/mm3) 4.52 L Hgb (12.3 - 15.9 G/DL) 10.7 L Hct (35.8 - 46.7 %) 35.2 L MCV (86.3 - 98.9 Fl) 77.9 L MCH (28.9 - 34.4 pg) 23.7 L MCHC (32.1 - 34.5 G/DL) 30.4 L RDW (11.5 - 14.5 SD) 18.9 H Plt Count (150 - 450 K/mm3) 186 MPV (7.0 - 9.6 fL) 9.90 H Neut % (Auto) (40 - 76 %) 75.1 Lymph % (Auto) (20.5 - 51.1 %) 12.1 L Haralson % (Auto) (1.7 - 9.3 %) 10.8 H Eos % (Auto) (0.0 - 6.0 %) 0.9 Baso % (Auto) (0.0 - 2.0 %) 0.3 Neut # (Auto) (1.8 - 7.6 K/mm3) 5.0 Lymph # (Auto) (0.6 - 3.0 K/mm3) 0.8 Haralson # (Auto) (0.2 - 1.5 K/mm3) 0.7 Eos # (Auto) (0.0 - 0.4 K/mm3) 0.1 Baso # (Auto) (0.0 - 0.2 K/mm3) 0.0 Abs Immat Gran (auto) (0.00 - 0.03 x10 3/uL) 0.05 H Add Manual Diff (CRITERIA DIFF/SCN) NO Immature Gran % (0.0 - 5.0 %) 0.8 Nucleated RBC % (0.0 - 1.0 /100WBC%) 0.0 Diagnosis, Assessment Plan Free Text A P: 1. end-stage renal disease on hemodialysis. Hemodialysis on TTS. 2. Hypertension. 3. left hand cellulitis. 4. Chronic anemia of renal disease. 5. atrial fibrillation. recommendations. 10/12: No need for HD today. October 11: No need for hemodialysis today. October 10: Hemodialysis today. October 09:Renal restriction diet. limit fluid to 1 L a day. No need for Epogen at this time. Check phosphorus, adjust phosphorus binders. Resume blood pressure medication. No need for emergent dialysis today. Thank you for the consultation, any question please call [phone]. at [phone] RPT #: [id number] END OF REPORT [facility] 2021-10-12 12:18:00 [facility] ([facility]) Hospitalist Discharge Summary REPORT#:[id number] REPORT STATUS: Signed DATE:10/12/21 TIME:1218 PATIENT: IRA RAYA UNIT #: [id number] ROOM/BED: [facility] : 54 AGE: 66 SEX: M ATTEND: Jose Mcfarlane MD ADM AUTHOR: Tuyet Calderón MSN * ALL edits or amendments must be made on the electronic/computer document * Tuyet Calderón 10/12/21 1218: General Information Free Text General Notes Free Text General Notes: 66-year-old male with PMHx of end-stage renal disease on HD TTS, atrial fibrillation on Eliquis, sent to er per orthopedic for the eval and mgmt of infected left hand. According to pt, he accidentlly jammed his index finger on a hard surface over a week ago. He said that finger got infected and now the whole hand is swollen and painful. Saw ortho today but was sent to er. Denies fever, nausea, or vomiting. Problem List/A P: 1. ESRD on dialysis 2. Finger infection Date of admission: Observation Start Date: 10/09/21 Date of admission: 10/10/21 Discharge date: 10/12/21 Admission diagnosis: #Left hand Cellulitis with left index finger ulcer #ESRD #Afib, controlled #Hypertension, controlled #COPD w/o acute exacerbation Discharge diagnosis: #Left hand Cellulitis with left index finger ulcer #ESRD #Afib, controlled #Hypertension, controlled #COPD w/o acute exacerbation Hospital course: 66-year-old male with PMHx of end-stage renal disease on HD TTS, atrial fibrillation on Eliquis, sent from orthopedic clinic for admit d/t infected wound on left hand. The plan initially was to have a surgical I D but after 2 days of IV antibiotic, it improved and according to ortho surg, there is no longer indication for surgical intervention. ID has also being following. Ortho cleared him for discharge to f/u with him at the clinic. We will discharge him on Doxy and Cefdinir per ID recommendation. VSS. Pt. condition on discharge: fair, improved Free Text DxA P Notes Free text DxA P notes: 66 y/o male admitted for the mgmt of: #Left hand Cellulitis with left index finger ulcer -Admit inpt, tele -Routine vitals -Strict I Os -Pain mgmt -Continue with IV clindamycin -Orhto following (Sent from orhto's clinic) #ESRD -HD TTS -Nephro consult, appreciate input #Afib, controlled -Resume home med regimen: eliquis and amio #Hypertension, controlled #COPD w/o acute exacerbation -Resume home med regimen DVT prophy:Eliquis Full code 10/10/21 #Left hand Cellulitis with left index finger ulcer #ESRD #Afib, controlled #Hypertension, controlled #COPD w/o acute exacerbation Plan Poss surgical I D in am NPO after MN Hold Eliquis until after surgery Continue with current meds DVT prophy:SCDs for now but will resume Eliquis postop Full code 10/11/21 #Left hand Cellulitis with left index finger ulcer #Bacteremia #MRSA, nares #Hypotension #ESRD TTS #Afib, controlled #Hx of Hypertension but currently hypotension #COPD w/o acute exacerbation Plan Scheduled surgical I D 10/11/21 NPO but advance diet as tolerated postop Hold Eliquis until after surgery Continue with current meds ID consult for bacteremia Mucipurion topical for MRSA nares Hold all antihypertensives meds d/t hypotension AM CBC/BMP DVT prophy:SCDs for now but will resume Eliquis postop Full code Med Rec Med Rec Discharge meds: Continue taking these medications: MIDODRINE (PROAMATINE) 5 MG TAB 10 MILLIGRAM ORAL EVERY 8 HOURS. Qty = 1 APIXABAN (ELIQUIS) 5 MG TAB 5 MILLIGRAM ORAL TWICE DAILY. Qty = 1 AMIODARONE (CORDARONE) 200 MG TAB 400 MILLIGRAM ORAL TWICE DAILY. Qty = 1 SEVELAMER CARBONATE (RENVELA) 800 MG TAB 800 MILLIGRAM ORAL WITH MEALS. Qty = [address] (PROTONIX) 40 MG TAB.DR 40 MILLIGRAM ORAL DAILY. Qty = 1 CINACALCET (SENSIPAR) 30 MG TAB 30 MILLIGRAM ORAL BEDTIME. Qty = 1 HYDROCORTISONE (CORTEF) 20 MG TAB 20 MILLIGRAM ORAL TWICE DAILY. Qty = 1 Instructions: for 3days, then 10mg bid for three days then 10mg once daily for three days and then stop Start taking the following new medications: DOXYCYCLINE HYCLATE (VIBRAMYCIN) 100 MG CAP 100 MILLIGRAM ORAL TUESDAY, TUESDAY, TUESDAY. Qty = 6 No Refills Instructions: After each dialysis session. Ends 10/22/21 CEFDINIR (OMNICEF) 300 MG CAP 300 MILLIGRAM ORAL TUESDAY, TUESDAY, TUESDAY. Qty = 6 No Refills Instructions: after each dialysis session. Ends 10/22/21 Objective VS/I O Last Documented: Result Date Time Pulse Ox 100 10/12 1135 B/P 97/64 10/12 1135 B/P Mean 0.0 10/12 1135 O2 Delivery Room air 10/12 1135 Temp 97.5 10/12 1135 Pulse 71 10/12 1135 Resp 18 10/12 1135 24 hour I O ending at 0700: 10/12 0700 10/11 1900 Intake Total Output Total Balance Number 1 Bowel Movements Output, Emesis General appearance: alert, awake, oriented Head/Eyes: atraumatic, normocephalic, PERRL Neck: full range of motion, non-tender, normal thyroid Cardiovascular: irregular rhythm, normal capillary refill Respiratory: aerating well, clear to auscultation, symmetric expansion Extremities: moves all Neuro/GRAIN ELEVATOR MOTOR STARTER: alert, oriented X 3, normal speech Skin: Erythema/ulcer left hand Discharge Instructions PCP PCP follow-up: PCP: Keisha Benson MD Discharge to: Home/Self Care Additional Discharge Routines: PCP Follow-Up, Film Laboratory Technician Follow-Up, Add. instructions Diet: Renal Activity: As Tolerated Additional instructions: Please stop the following antibiotics: Cleocin, Levaquin, and Flagyl. Only take Cefdinir and Doxycycline as directed Discharge management: greater than 30 mins Follow-up Appointments PCP follow-up: PCP: Keisha Benson MD PCP follow up timeframe: 1 week Consulting provider 1: Provider 1: Amita Gr MD Specialty: Family Medicine Consult follow up timeframe: In 1-2 weeks Special instructions: Please call the office for appointment Jose Mcfarlane 10/12/21 1231: Attestations Physician Attestation Agree w/findings plan: Appreciate note from AUTOMATED PROCESS OPERATOR Agree with the history and physical findings Lab works noted Imaging noted as well Findings were discussed with the KANWAL and Staff at 1223 at 1231 [facility] #: [id number] END OF REPORT [facility] 2021-10-12 09:04:00 [facility] ([facility]) Infect Disease Consult Note REPORT#:[id number] REPORT STATUS: Signed DATE:10/12/21 TIME:903 PATIENT: IRA RAYA UNIT #: [id number] ROOM/BED: [place] [id number] : 54 AGE: 66 SEX: M ATTEND: Jose Mcfarlane MD ADM AUTHOR: Bridgett Ramos * ALL edits or amendments must be made on the electronic/computer document * Bridgett Ramos 10/12/21 0904: History of Present Illness Requesting Clinician: FRANNIE Calderón Reason for consult: Bacteremia Chief complaint: Left hand first finger infection Free Text HPI Notes Free Text HPI Notes: Patient is a 66-year-old M w/PMHx of HTN, CAD, ESRD on hemodialysis (TThS), gout , and A. fib on Eliquis who presented to the ED complaining of pain to his left hand which began in his left index finger and has spread to his hand and wrist for the past 3 weeks. His pain and swelling were getting worse which prompted him to visit [facility] ER on 10/06. He had an incision and drainage done to his left index finger and according to the patient there was purulent drainage expressed. He was begun on Flagyl, clindamycin, and Levaquin and was told to follow-up at a hospital that had a hand surgeon which is what brought the patient to [facility] on 10/05. In the ED, CT revealed subcutaneous edema. Pt was discharged and sent back to the ED by his orthopedic surgeon on 10/09 for further evaluation of the hand/finger, however, I D was not performed on 10/11 as scheduled. MRSA screening this visit is positive (last neg 04/30). Today he reports nausea, vomiting and the pain in his finger as 6 out of 10. He denies fever, chills, headaches, chest pain and SOB. Blood cultures are positive for coag-neg staph and ID is consulted for possible bacteremia. History - Adult longitudinal Past medical history: Reports: Atrial fibrillation, Hypertension, Kidney disease/stones. 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 Free text [facility] notes: History Additional surgical history: dialysis graft left forearm Alcohol use: Denies EtOH use Drug use: Denies recreational drugs Smoking status: Smoking status for patients 13 years old or older: Never Smoker Other social history: Local resident, Good social support Medication/Allergy-Vaccine Hx Medications: Home Medications: Medication Dose/Rte/Freq Days Qty Entered Last Max Daily Dose Reviewed MIDODRINE (PROAMATINE) 10 MG PO Q8H 1 04/13/21 Strength: 5 MG TAB 1458 APIXABAN (ELIQUIS) 5 MG PO BID 1 04/13/21 Strength: 5 MG TAB 1458 AMIODARONE (CORDARONE) 400 MG PO BID 1 04/13/21 Strength: 200 MG TAB 1458 SEVELAMER CARBONATE 800 MG PO C MEALS 1 04/13/21 (RENVELA) 1459 Strength: [address] 40 MG PO 1 04/13/21 (PROTONIX) DAILY@0600 1459 Strength: 40 MG TAB. CINACALCET (SENSIPAR) 30 MG PO BEDTIME 1 04/13/21 Strength: 30 MG TAB 1459 HYDROCORTISONE 20 MG PO BID 1 04/13/21 (CORTEF) 1500 Strength: 20 MG TAB Current Hospital Medications: Anti-Infective Agents Sig/Sue Start time Last Medication Dose Route Stop Time Status Admin Clindamycin Phosphate 600 MG ONCE ONE 10/09 1730 DC (CLEOCIN PHOSPHATE) IV 10/09 1731 Electrolytic, Caloric, And Mallika Sig/Sue Start time Last Medication Dose Route Stop Time Status Admin Sodium Chloride 150 ML BOLUS ONCE STA 10/09 1729 DC (0.9% Sodium IV 10/09 1828 Chloride) Allergies: Coded Allergies: amlodipine (From NORVASC) (Mild, RASH 10/05/21) amoxicillin (From AUGMENTIN) (Mild, ABD PAIN 10/05/21) clavulanic acid (From AUGMENTIN) (Mild, ABD PAIN 10/05/21) Review of Systems Constitutional: Denies: chills, fatigue, fever. Skin: Reports: swelling. Denies: abrasion, bruising, contusion. Allergy/Immun: Denies hives, Denies itching, Denies rhinorrhea Eyes: Denies redness, Denies discharge, Denies visual loss/blurred ENT: Denies: earache, sinus problem, sore throat, tongue pain, tongue swelling. Respiratory: Denies: HWANG (dyspnea on exertion), hemoptysis, pneumonia. Cardiovascular: Denies: chest pain, edema, palpitations. GI: Reports: nausea, vomiting. Denies: abdominal pain, diarrhea. Musculoskeletal: Reports: extremity pain (first finger left hand). Denies: joint pain, joint swelling, myalgias, neck pain. Heme: Denies: adenopathy, bleeding, bruising. Neuro: Denies: confusion, dizziness, headache, lightheaded. Psych: Denies: agitation, anxiety, auditory hallucination, visual hallucination. Objective General VS/I O: Last Documented: Result Date Time Pulse Ox 94 10/12 0804 B/P 98/65 10/12 08 B/P Mean 75.9 10/12 0804 O2 Delivery Room air 10/12 08 Temp 36.3 10/12 08 Pulse 70 10/12 0804 Resp 18 10/12 0804 Vital Signs Date Temp Pulse Resp B/P B/P Mean Pulse Ox FiO2 10/11-10/12 36.3-37.4 63-76 16-18 83-107/51-72 61.8-82.9 93-98 24 hour I O ending at 0700: 10/12 0700 10/11 1900 Intake Total Output Total Balance Number 1 Bowel Movements Output, Emesis PATIENT WEIGHT: Weight (lb): Weight (oz): Weight (kg): 135.700 Physical Exam General appearance: obese, alert, awake, oriented Head/Eyes: atraumatic, EOMI, normal conjunctiva/sclera, normal eyelids/periorb ENT: moist mucosal membranes, normal nose Cardiovascular: regular rate rhythm, pulses 2/4 equal bilaterally Respiratory: clear to auscultation, aerating well, no distress Abdomen: non-tender, soft, no guarding, no mass/organomegaly Extremities: moves all, normal capillary refill, no clubbing, no contracture, no cyanosis, First finger left hand edematous, dried blood, white color changes Musculoskeletal: no joint swelling, mild resting tremor left hand Neuro/GRAIN ELEVATOR MOTOR STARTER: alert, oriented X 3, normal speech Skin: dry, intact, no rash Diagnosis, Assessment Plan Free Text DxA P Notes Free text DxA P notes: Laboratory Tests 10/12/21 0620: [Embedded Image Not Available] 10/09 MRSA screen POS Pertinent Imagin/28 CT extremity reviewed Assessment: 1. Blood cultures positive for coagulase-negative staph, most likely contaminant as patient does not have fever or leukocytosis and no port, picc line or pacemaker. 2. Severe cellulitis, first finger left hand. 3. Fistula w/ no signs of infection, left arm. 4. Sacral ulcer. 5. Sensitivity to Augmentin/amoxicllin, being nausea, vomiting, diarrhea. Plan: 1. Coag-neg staph in blood cultures most likely contaminant. 2. We recommend changing clindamycin to doxycycline plus cefdinir (300mg after each dialysis session) to cover severe cellulitis and given the patient's sensitivity to Augmentin/amoxicillin. End date: 10/22/21. 3. Ortho surgery followed; did not perform I D on 10/11 and rec's tx w/abx. 4. Monitor CBC, temp. 5. Plan discussed with primary team. Thank you for this consult. Miles Nance 10/12/21 1218: Attestations Physician Attestation Reviewed findings plan: I evaluated the pt with DALE Ramos. I confirmed the HPI, PMH, SH, FH, ROS, physical exam, assessment and plan. Pt presented with left index finger swelling and pain. Pt was diagnosed with left index finger cellulitis with possible abscess. ID consulted for coag-neg staph in blood cx. On physical exam, pt is awake, left index finger with edema and erythema. Labs showed no leukocytosis. Assessment: left index cellulitis, CT showed no osteomyelitis. Coag-neg staph in blood likely contaminant as pt has no pacemaker, port or PICC line. Pt has h/o ESRD. Recommendations: can treat with empiric doxycycline and cefdinir for 14 days. If pt does not respond, consider MRI to r/o new osteomyelitis. F/u with ortho sx. at 1156 at 1218 RPT #: [id number] END OF REPORT [facility] 2021-10-12 07:29:00 [facility] ([facility]) Orthopaedic Consult Note REPORT#:[id number] REPORT STATUS: Signed DATE:10/12/21 TIME:728 PATIENT: IRA RAYA UNIT #: [id number] ROOM/BED: [place] [id number] : 54 AGE: 66 SEX: M ATTEND: Jose Mcfarlane MD ADM AUTHOR: Amita Gr MD * ALL edits or amendments must be made on the electronic/computer document * History of Present Illness Free Text HPI Notes Free Text HPI Notes: HPI Chief complaint: Left index finger pain, swelling, redness PCP: PCP: Keisha Benson MD HPI: 66-year-old male with PMHx of end-stage renal disease on HD TTS, atrial fibrillation on Eliquis, was seen by us in clinic on last Tuesday for finger swelling and redness. After evaluation, We sent to er for evaluation and mgmt of infected left hand. According to pt, he accidentlly jammed his index finger on a hard surface over a week ago. He said that finger got infected and now the whole hand is swollen and painful. = Patient was admitted in hoptal and started on IV antibiotics. He is on Dialysis. His pain has improved a lot after admission. History - Adult longitudinal Additional medical history: end-stage renal disease, hypertension Additional surgical history: dialysis graft left forearm Additional family history: reviewed Alcohol use: Denies EtOH use Drug use: Denies recreational drugs Smoking status: Smoking status for patients 13 years old or older: Never Smoker Other social history: Local resident, Good social support Allergies: Coded Allergies: amlodipine (From [employer]) (Mild, RASH 10/05/21) amoxicillin (From AUGMENTIN) (Mild, ABD PAIN 10/05/21) clavulanic acid (From AUGMENTIN) (Mild, ABD PAIN 10/05/21) Free text PMH notes: History Additional surgical history: dialysis graft left forearm Alcohol use: Denies EtOH use Drug use: Denies recreational drugs Smoking status: Smoking status for patients 13 years old or older: Never Smoker Other social history: Local resident, Good social support Medication/Allergy-Vaccine Hx Medications: Home Medications: Medication Dose/Rte/Freq Days Qty Entered Last Max Daily Dose Reviewed MIDODRINE (PROAMATINE) 10 MG PO Q8H 1 04/13/21 Strength: 5 MG TAB 1458 APIXABAN (ELIQUIS) 5 MG PO BID 1 04/13/21 Strength: 5 MG TAB 1458 AMIODARONE (CORDARONE) 400 MG PO BID 1 04/13/21 Strength: 200 MG TAB 1458 SEVELAMER CARBONATE 800 MG PO C MEALS 1 04/13/21 (RENVELA) 1459 Strength: [address] 40 MG PO 1 04/13/21 (PROTONIX) DAILY@0600 1459 Strength: 40 MG TAB. CINACALCET (SENSIPAR) 30 MG PO BEDTIME 1 04/13/21 Strength: 30 MG TAB 1459 HYDROCORTISONE 20 MG PO BID 1 04/13/21 (CORTEF) 1500 Strength: 20 MG TAB Current Hospital Medications: Anti-Infective Agents Sig/Sue Start time Last Medication Dose Route Stop Time Status Admin Clindamycin Phosphate 600 MG ONCE ONE 10/09 1730 DC (CLEOCIN PHOSPHATE) IV 10/09 1731 Electrolytic, Caloric, And Mallika Sig/Sue Start time Last Medication Dose Route Stop Time Status Admin Sodium Chloride 150 ML BOLUS ONCE STA 10/09 1729 DC (0.9% Sodium IV 10/09 1828 Chloride) Allergies: Coded Allergies: amlodipine (From NORVASC) (Mild, RASH 10/05/21) amoxicillin (From AUGMENTIN) (Mild, ABD PAIN 10/05/21) clavulanic acid (From AUGMENTIN) (Mild, ABD PAIN 10/05/21) Review of Systems Free Text ROS Notes Free Text ROS Notes: Review of Systems Constitutional: Denies: chills, fever. Skin: Reports: swelling. Musculoskeletal: Extremity pain: Reports: left upper. All systems rev neg: except as marked Objective VS: Last Documented: Result Date Time Pulse Ox 98 10/12 420 B/P 106/72 10/12 420 B/P Mean 82.9 10/12 420 Temp 98.2 10/12 420 Pulse 72 10/12 420 Resp 16 10/12 420 O2 Delivery Room air 10/11 1459 PATIENT WEIGHT: Weight (lb): Weight (oz): Weight (kg): 135.700 Free Text Obj Notes Free Text Obj Notes: Physical Exam VS/I O Vital Signs: Date Time Temp Pulse Resp B/P B/P Pulse O2 O2 Flow FiO2 Mean Ox Delivery Rate 10/09 1719 99.0 72 18 111/51 71 99 Room air PATIENT WEIGHT: Weight (lb): Weight (oz): Weight (kg): 135.700 General appearance: alert, awake, oriented Head/Eyes: atraumatic, normocephalic, PERRLA ENT: normal ear left, normal ear right, normal nose Neck: full range of motion, non-tender, normal thyroid Cardiovascular: irregular rhythm, normal capillary refill Respiratory: clear to auscultation, no distress, aerating well Abdomen/GI: active bowel sounds, soft, non-tender Extremities: moves all, no clubbing, no cyanosis Musculoskeletal: normal inspection Neuro/GRAIN ELEVATOR MOTOR STARTER: alert, oriented X 3, normal speech Skin: lesions, dry, normal color, Swollen left hand, necrotic ulcer left index finger, Swelling, redness and superficial blisters are resolved. Able to move and flex with some discomfort. Negative Kanavel Signs for infection. Mild tenderness at pulp. Slight decrease blood flow at finger tip from DIP to distal compare to rest of the hand, possibly dysvascularity Psychiatry: normal affect Results Findings/Data: Laboratory Tests: 10/09 1823 Hematology WBC (3.5 - 11.0 K/mm3) 4.8 RBC (4.70 - 6.10 M/mm3) 4.50 L Hgb (12.3 - 15.9 G/DL) 10.6 L Hct (35.8 - 46.7 %) 35.3 L MCV (86.3 - 98.9 Fl) 78.4 L MCH (28.9 - 34.4 pg) 23.6 L MCHC (32.1 - 34.5 G/DL) 30.0 L RDW (11.5 - 14.5 SD) 18.7 H Plt Count (150 - 450 K/mm3) 216 MPV (7.0 - 9.6 fL) 9.80 H Neut % (Auto) (40 - 76 %) 66.7 Lymph % (Auto) (20.5 - 51.1 %) 19.8 L Haralson % (Auto) (1.7 - 9.3 %) 10.3 H Eos % (Auto) (0.0 - 6.0 %) 1.5 Baso % (Auto) (0.0 - 2.0 %) 0.4 Neut # (Auto) (1.8 - 7.6 K/mm3) 3.2 Lymph # (Auto) (0.6 - 3.0 K/mm3) 0.9 Haralson # (Auto) (0.2 - 1.5 K/mm3) 0.5 Eos # (Auto) (0.0 - 0.4 K/mm3) 0.1 Baso # (Auto) (0.0 - 0.2 K/mm3) 0.0 Abs Immat Gran (auto) (0.00 - 0.03 x10 3/uL) 0.06 H Add Manual Diff (CRITERIA DIFF/SCN) NO Immature Gran % (0.0 - 5.0 %) 1.3 Nucleated RBC % (0.0 - 1.0 /100WBC%) 0.0 Diagnosis, Assessment Plan Free Text A P: Diagnosis, Assessment Plan Problem List/A P: 1. ESRD on dialysis 2. Left index Finger infection, responding well to IV antibiotics Plan: There is no evidence of localized abscess at this point, so I dont recommend surgery. Recommend continue IV antibiotics and observation. Patient can be discharged on IV antibiotics, if agreed by hospitalist and ID team. F/u on out patient bases. Observation for dysvascularity for now. at 0736 RPT #: [id number] END OF REPORT [facility] 2021-10-11 16:01:00 [facility] ([facility]) Nephrology Progress Note REPORT#:[id number] REPORT STATUS: Signed DATE:10/11/21 TIME:1601 PATIENT: IRA RAYA UNIT #: [id number] ROOM/BED: [place] [id number] : 54 AGE: 66 SEX: M ATTEND: Jose Mcfarlane MD ADM AUTHOR: Genaro Gupta MD * ALL edits or amendments must be made on the electronic/computer document * Subjective Chief complaint: End-stage renal disease Comments: Denies shortness of breath Review of Systems Free Text ROS Notes Free Text ROS Notes: 10 point review of system performed and documented in subjective, otherwise negative. Objective General VS/I O: Vital Signs: Date Time Temp Pulse Resp B/P B/P Pulse O2 O2 Flow FiO2 Mean Ox Delivery Rate 10/11 1459 36.7 63 18 107/69 81.9 93 Room air 04/ 1119 37.4 65 18 87/53 64.2 96 Room air 04/ 0752 36.6 64 18 87/59 68.5 97 Room air 04/ 0408 80 18 91/63 71.9 04/ 0343 37.1 74 16 88/55 65.9 95 Room air 04/03 0028 36.7 65 15 93/63 72.8 98 Room air 04/02 2033 36.8 67 16 113/81 91.7 98 Room air 04/ 1650 36.8 65 18 120/76 97 Room air 24 hour I O ending at 0700: 10/11 0700 04/02 1900 Intake Total 250.00 Output Total Balance 250.00 Intake, IV 50.00 Intake, Oral 200 Medications Active Meds + DC'd Last 24 Hrs Famotidine (PEPCID) 40 MG DAILY 1800 PO Mupirocin (BACTROBAN) 1 APPLIC BID TOPICAL Famotidine (PEPCID) 20 MG ONCE ONE PO (DC) Clindamycin HCl (CLEOCIN) 600 MG Q6H PO (CKD) Albumin Human (ALBUMINAR-25% 12.5 GM/50 ML) 25 GM BOLUS PRN IV Mannitol (MANNITOL 25%) 12.5 GM BOLUS PRN IV Sodium Chloride (0.9% Sodium Chloride) 1,000 ML BOLUS PRN IV Sodium Chloride (0.9% Sodium Chloride) 2,000 ML .Q24H PRN IV Pantoprazole (PROTONIX) 40 MG DAILY@0600 PO Amiodarone HCl (CORDARONE) 400 MG Q12HR PO (CKD) Cinacalcet (SENSIPAR) 30 MG BEDTIME PO Sevelamer Carbonate (RENVELA) 800 MG C MEALS PO Acetaminophen (TYLENOL) 650 MG Q6H PRN PRN PO Hydrocodone Bitart/Acetaminophen (NORCO 7.5/325) 1 TAB Q6H PRN PRN PO Morphine Sulfate (morphine SULFATE) 4 MG Q4H PRN PRN IV Ondansetron HCl (ZOFRAN) 4 MG Q6H PRN PRN IV Physical Exam General appearance: awake Head/eyes: PERRL ENT: normal nose Neck: no JVD C-Spine clearance: no midline tenderness Cardiovascular: no murmur Respiratory: clear to auscultation Abdomen: non-tender, soft Genitourinary: no gómez Extremities: no edema Musculoskeletal: full range of motion Neuro/GRAIN ELEVATOR MOTOR STARTER: Awake Results Findings/Data: Laboratory Tests 10/11 0535 Chemistry Phosphorus (2.5 - 4.9 MG/DL) 3.5 Diagnosis, Assessment Plan Free Text A P: 1. end-stage renal disease on hemodialysis. Hemodialysis on TTS. 2. Hypertension. 3. left hand cellulitis. 4. Chronic anemia of renal disease. 5. atrial fibrillation. recommendations. October 11: No need for hemodialysis today. October 10: Hemodialysis today. October 09:Renal restriction diet. limit fluid to 1 L a day. No need for Epogen at this time. Check phosphorus, adjust phosphorus binders. Resume blood pressure medication. No need for emergent dialysis today. Thank you for the consultation, any question please call [phone]. at 1602 RPT #: [id number] END OF REPORT [facility] 2021-10-11 10:42:00 [facility] ([facility]) Hospitalist Progress Note REPORT#:[id number] REPORT STATUS: Signed DATE:10/11/21 TIME:1042 PATIENT: IRA RAYA UNIT #: [id number] ROOM/BED: [place] [address] : 54 AGE: 66 SEX: M ATTEND: Jose Mcfarlane MD ADM AUTHOR: Tuyet Calderón MSN * ALL edits or amendments must be made on the electronic/computer document * Tuyet Calderón 10/11/21 1042: Subjective Chief complaint: Left hand pain Review of Systems Musculoskeletal: Joint pain: Reports: left upper. All systems rev neg: except as marked Objective General VS/I O: Vital Signs: Date Time Temp Pulse Resp B/P B/P Pulse O2 O2 Flow FiO2 Mean Ox Delivery Rate 10/11 0752 97.9 64 18 87/59 68.5 97 Room air / 0408 80 18 91/63 71.9 10/11 0343 98.8 74 16 88/55 65.9 95 Room air / 0028 98.1 65 15 93/63 72.8 98 Room air / 2033 98.2 67 16 113/81 91.7 98 Room air / 1650 98.2 65 18 120/76 97 Room air 04/ 1544 97.9 62 18 112/68 97 Room air 04/ 1534 97.7 69 18 118/68 0.0 100 Room air 04/ 1058 97.7 62 18 102/66 77.8 98 Room air 24 hour I O ending at 0700: 10/11 0700 10/10 1900 Intake Total 250.00 Output Total Balance 250.00 Intake, IV 50.00 Intake, Oral 200 PATIENT WEIGHT: Weight (lb): Weight (oz): Weight (kg): 135.700 Medications: Active Meds + DC'd Last 24 Hrs Famotidine (PEPCID) 40 MG DAILY 1800 PO Famotidine (PEPCID) 20 MG ONCE ONE PO (DC) Clindamycin HCl (CLEOCIN) 600 MG Q6H PO (CKD) Albumin Human (ALBUMINAR-25% 12.5 GM/50 ML) 25 GM BOLUS PRN IV Mannitol (MANNITOL 25%) 12.5 GM BOLUS PRN IV Sodium Chloride (0.9% Sodium Chloride) 1,000 ML BOLUS PRN IV Sodium Chloride (0.9% Sodium Chloride) 2,000 ML .Q24H PRN IV Pantoprazole (PROTONIX) 40 MG DAILY@0600 PO Amiodarone HCl (CORDARONE) 400 MG Q12HR PO (CKD) Cinacalcet (SENSIPAR) 30 MG BEDTIME PO Sevelamer Carbonate (RENVELA) 800 MG C MEALS PO Clindamycin Phosphate (CLEOCIN 600 MG/NS 50 ML) 50 ML Q8H IV (DC) Acetaminophen (TYLENOL) 650 MG Q6H PRN PRN PO Hydrocodone Bitart/Acetaminophen (NORCO 7.5/325) 1 TAB Q6H PRN PRN PO Morphine Sulfate (morphine SULFATE) 4 MG Q4H PRN PRN IV Ondansetron HCl (ZOFRAN) 4 MG Q6H PRN PRN IV Nutrition assessment: The data set between the solid lines has been imported from the dietitian's assessment. Any exceptions have been noted under Provider comments. BMI Calculated: 41.7 Nutrition related diagnosis: Nutrition diagnosis details: Nutrition problem: Nutrition etiology: Nutrition signs and symptoms: Nutrition prescription: Dietitian name: Assessment completed: Provider comments on imported dietitian assessment: Physical Exam General appearance: alert, awake, oriented Head/Eyes: atraumatic, normocephalic, PERRL Neck: full range of motion, non-tender, normal thyroid Cardiovascular: irregular rhythm, normal capillary refill Respiratory: aerating well, clear to auscultation, symmetric expansion Extremities: moves all Neuro/GRAIN ELEVATOR MOTOR STARTER: alert, oriented X 3, normal speech Skin: Erythema/ulcer left hand Diagnosis, Assessment Plan Problem List/A P: 1. ESRD on dialysis 2. Finger infection Free Text DxA P Notes Free text DxA P notes: 66 y/o male admitted for the mgmt of: #Left hand Cellulitis with left index finger ulcer -Admit inpt, tele -Routine vitals -Strict I Os -Pain mgmt -Continue with IV clindamycin -Orhto following (Sent from orhto's clinic) #ESRD -HD TTS -Nephro consult, appreciate input #Afib, controlled -Resume home med regimen: eliquis and amio #Hypertension, controlled #COPD w/o acute exacerbation -Resume home med regimen DVT prophy:Eliquis Full code 10/10/21 #Left hand Cellulitis with left index finger ulcer #ESRD #Afib, controlled #Hypertension, controlled #COPD w/o acute exacerbation Plan Poss surgical I D in am NPO after MN Hold Eliquis until after surgery Continue with current meds DVT prophy:SCDs for now but will resume Eliquis postop Full code 10/11/21 #Left hand Cellulitis with left index finger ulcer #Bacteremia #MRSA, nares #Hypotension #ESRD TTS #Afib, controlled #Hx of Hypertension but currently hypotension #COPD w/o acute exacerbation Plan Scheduled surgical I D 10/11/21 NPO but advance diet as tolerated postop Hold Eliquis until after surgery Continue with current meds ID consult for bacteremia Mucipurion topical for MRSA nares Hold all antihypertensives meds d/t hypotension AM CBC/BMP DVT prophy:SCDs for now but will resume Eliquis postop Full code Jose Mcfarlane 10/11/21 1145: Attestations Physician Attestation Agree w/findings plan: Appreciate note from AUTOMATED PROCESS OPERATOR Agree with the history and physical findings Lab works noted Imaging noted as well Findings were discussed with the KANWAL and Staff at 1052 at 1145 RPT #: [id number] END OF REPORT [facility] 2021-10-10 14:46:00 [facility] ([facility]) Nephrology Progress Note REPORT#:[id number] REPORT STATUS: Signed DATE:10/10/21 TIME:1445 PATIENT: IRA RAYA UNIT #: [id number] ROOM/BED: [place] [address] : 54 AGE: 66 SEX: M ATTEND: Rome Tyler MD ADM AUTHOR: Genaro Gputa MD * ALL edits or amendments must be made on the electronic/computer document * Subjective Chief complaint: End-stage renal disease Comments: denies shortness of breath, chest pain Review of Systems Free Text ROS Notes Free Text ROS Notes: Review of Systems: Ten point review of systems have been performed. Positive and negative pertinent systems have been identified in subjective/history and physical, otherwise negative. Objective General VS/I O: Vital Signs: Date Time Temp Pulse Resp B/P B/P Pulse O2 O2 Flow FiO2 Mean Ox Delivery Rate 10/10 1058 36.5 62 18 102/66 77.8 98 Room air 10/10 0744 36.6 61 18 103/72 82.1 97 Room air 10/10 0422 36.8 61 16 104/64 77.2 97 10/09 2345 36.7 70 16 111/64 79.7 100 10/09 2141 36.6 75 16 131/88 102.4 96 10/09 1955 37.0 67 22 118/77 90 95 Room air 10/09 1719 37.2 72 18 111/51 71 99 Room air 24 hour I O ending at 0700: 10/10 0700 10/09 1900 Intake Total 300 Output Total Balance 300 Intake, Oral 300 Patient 135.7 kg Weight Weight Stated/Reported Measurement Method Medications Active Meds + DC'd Last 24 Hrs Clindamycin HCl (CLEOCIN) 600 MG Q6H PO (CKD) Albumin Human (ALBUMINAR-25% 12.5 GM/50 ML) 25 GM BOLUS PRN IV Mannitol (MANNITOL 25%) 12.5 GM BOLUS PRN IV Sodium Chloride (0.9% Sodium Chloride) 1,000 ML BOLUS PRN IV Sodium Chloride (0.9% Sodium Chloride) 2,000 ML .Q24H PRN IV Apixaban (ELIQUIS) 5 MG Q12HR PO (CAN) Pantoprazole (PROTONIX) 40 MG DAILY@0600 PO Amiodarone HCl (CORDARONE) 400 MG Q12HR PO (CKD) Cinacalcet (SENSIPAR) 30 MG BEDTIME PO Sevelamer Carbonate (RENVELA) 800 MG C MEALS PO Clindamycin Phosphate (CLEOCIN 600 MG/NS 50 ML) 50 ML Q8H IV (DC) Acetaminophen (TYLENOL) 650 MG Q6H PRN PRN PO Hydrocodone Bitart/Acetaminophen (NORCO 7.5/325) 1 TAB Q6H PRN PRN PO Morphine Sulfate (morphine SULFATE) 4 MG Q4H PRN PRN IV Ondansetron HCl (ZOFRAN) 4 MG Q6H PRN PRN IV Clindamycin Phosphate (CLEOCIN PHOSPHATE) 600 MG ONCE ONE IV (DC) Sodium Chloride (0.9% Sodium Chloride) 150 ML BOLUS ONCE STA IV (DC) Physical Exam General appearance: awake Head/eyes: PERRL ENT: normal nose Neck: no JVD C-Spine clearance: no midline tenderness Cardiovascular: no murmur Respiratory: clear to auscultation Abdomen: non-tender, soft Genitourinary: no gómez Extremities: no edema Musculoskeletal: full range of motion Neuro/GRAIN ELEVATOR MOTOR STARTER: Awake Results Findings/Data: Laboratory Tests 10/09 1822 Chemistry Sodium (134 - 147 mmol/L) 135 Potassium (3.4 - 5.0 mmol/L) 3.6 Chloride (100 - 108 mmol/L) 98 L Carbon Dioxide (21 - 32 mmol/L) 31 Anion Gap (4.0 - 15.0 GAP calc) 6.0 BUN (7 - 18 MG/DL) 14 Creatinine (0.8 - 1.3 MG/DL) 5.3 H Glomerular Filtr Rate (>60 estGFR) 14 L Glucose (70 - 110 MG/DL) 62 L Calcium (8.5 - 10.1 MG/DL) 9.4 Laboratory Tests 10/09 1822 Hematology WBC (3.5 - 11.0 K/mm3) 4.8 RBC (4.70 - 6.10 M/mm3) 4.50 L Hgb (12.3 - 15.9 G/DL) 10.6 L Hct (35.8 - 46.7 %) 35.3 L MCV (86.3 - 98.9 Fl) 78.4 L MCH (28.9 - 34.4 pg) 23.6 L MCHC (32.1 - 34.5 G/DL) 30.0 L RDW (11.5 - 14.5 SD) 18.7 H Plt Count (150 - 450 K/mm3) 216 MPV (7.0 - 9.6 fL) 9.80 H Neut % (Auto) (40 - 76 %) 66.7 Lymph % (Auto) (20.5 - 51.1 %) 19.8 L Haralson % (Auto) (1.7 - 9.3 %) 10.3 H Eos % (Auto) (0.0 - 6.0 %) 1.5 Baso % (Auto) (0.0 - 2.0 %) 0.4 Neut # (Auto) (1.8 - 7.6 K/mm3) 3.2 Lymph # (Auto) (0.6 - 3.0 K/mm3) 0.9 Haralson # (Auto) (0.2 - 1.5 K/mm3) 0.5 Eos # (Auto) (0.0 - 0.4 K/mm3) 0.1 Baso # (Auto) (0.0 - 0.2 K/mm3) 0.0 Abs Immat Gran (auto) (0.00 - 0.03 x10 3/uL) 0.06 H Add Manual Diff (CRITERIA DIFF/SCN) NO Immature Gran % (0.0 - 5.0 %) 1.3 Nucleated RBC % (0.0 - 1.0 /100WBC%) 0.0 Laboratory Tests 10/09 1842 Serology SARS-CoV-2 Ag (Rapid) (Negative) NEGATIVE Diagnosis, Assessment Plan Free Text A P: 1. end-stage renal disease on hemodialysis. Hemodialysis on TTS. 2. Hypertension. 3. left hand cellulitis. 4. Chronic anemia of renal disease. 5. atrial fibrillation. recommendations. October 10: Hemodialysis today. October 09:Renal restriction diet. limit fluid to 1 L a day. No need for Epogen at this time. Check phosphorus, adjust phosphorus binders. Resume blood pressure medication. No need for emergent dialysis today. Thank you for the consultation, any question please call [phone]. at [phone] RPT #: [id number] END OF REPORT [facility] 2021-10-10 10:44:00 [facility]) Hospitalist Progress Note REPORT#:[id number] REPORT STATUS: Signed DATE:10/10/21 TIME:1044 PATIENT: IRA RAYA UNIT #: [id number] ROOM[address]BED: [address]: 54 AGE: 66 SEX: M ATTEND: Jose Mcfarlane MD ADM AUTHOR: Tuyet Calderón MSN * ALL edits or amendments must be made on the electronic/computer document * Tuyet Calderón 10/10/21 1044: Subjective Chief complaint: Left hand pain Review of Systems Musculoskeletal: Joint pain: Reports: left upper. All systems rev neg: except as marked Objective General VS/I O: Vital Signs: Date Time Temp Pulse Resp B/P B/P Pulse O2 O2 Flow FiO2 Mean Ox Delivery Rate 10/10 0744 97.9 61 18 103/72 82.1 97 Room air 10/10 0422 98.2 61 16 104/64 77.2 97 10/09 2345 98.1 70 16 111/64 79.7 100 10/09 2141 97.9 75 16 131/88 102.4 96 10/09 1955 98.6 67 22 118/77 90 95 Room air 10/09 1719 99.0 72 18 111/51 71 99 Room air 24 hour I O ending at 0700: 10/10 0700 10/09 1900 Intake Total 300 Output Total Balance 300 Intake, Oral 300 Patient 299 lb Weight Weight Stated/Reported Measurement Method PATIENT WEIGHT: Weight (lb): Weight (oz): Weight (kg): 135.700 Medications: Active Meds + DC'd Last 24 Hrs Apixaban (ELIQUIS) 5 MG Q12HR PO (CAN) Pantoprazole (PROTONIX) 40 MG DAILY@0600 PO Amiodarone HCl (CORDARONE) 400 MG Q12HR PO (CKD) Cinacalcet (SENSIPAR) 30 MG BEDTIME PO Sevelamer Carbonate (RENVELA) 800 MG C MEALS PO Clindamycin Phosphate (CLEOCIN 600 MG/NS 50 ML) 50 ML Q8H IV Acetaminophen (TYLENOL) 650 MG Q6H PRN PRN PO Hydrocodone Bitart/Acetaminophen (NORCO 7.5/325) 1 TAB Q6H PRN PRN PO Morphine Sulfate (morphine SULFATE) 4 MG Q4H PRN PRN IV Ondansetron HCl (ZOFRAN) 4 MG Q6H PRN PRN IV Clindamycin Phosphate (CLEOCIN PHOSPHATE) 600 MG ONCE ONE IV (DC) Sodium Chloride (0.9% Sodium Chloride) 150 ML BOLUS ONCE STA IV (DC) Nutrition assessment: The data set between the solid lines has been imported from the dietitian's assessment. Any exceptions have been noted under Provider comments. BMI Calculated: 41.7 Nutrition related diagnosis: Nutrition diagnosis details: Nutrition problem: Nutrition etiology: Nutrition signs and symptoms: Nutrition prescription: Dietitian name: Assessment completed: Provider comments on imported dietitian assessment: Physical Exam General appearance: alert, awake, oriented Neck: full range of motion, non-tender, normal thyroid Cardiovascular: irregular rhythm, normal capillary refill Respiratory: aerating well, clear to auscultation, symmetric expansion Extremities: moves all Neuro/GRAIN ELEVATOR MOTOR STARTER: alert, oriented X 3, normal speech Skin: Erythema/ulcer left hand Results Findings/Data: Laboratory Tests 10/09 1822 Chemistry Sodium (134 - 147 mmol/L) 135 Potassium (3.4 - 5.0 mmol/L) 3.6 Chloride (100 - 108 mmol/L) 98 L Carbon Dioxide (21 - 32 mmol/L) 31 Anion Gap (4.0 - 15.0 GAP calc) 6.0 BUN (7 - 18 MG/DL) 14 Creatinine (0.8 - 1.3 MG/DL) 5.3 H Glomerular Filtr Rate (>60 estGFR) 14 L Glucose (70 - 110 MG/DL) 62 L Calcium (8.5 - 10.1 MG/DL) 9.4 Laboratory Tests 10/09 1822 Hematology WBC (3.5 - 11.0 K/mm3) 4.8 RBC (4.70 - 6.10 M/mm3) 4.50 L Hgb (12.3 - 15.9 G/DL) 10.6 L Hct (35.8 - 46.7 %) 35.3 L MCV (86.3 - 98.9 Fl) 78.4 L MCH (28.9 - 34.4 pg) 23.6 L MCHC (32.1 - 34.5 G/DL) 30.0 L RDW (11.5 - 14.5 SD) 18.7 H Plt Count (150 - 450 K/mm3) 216 MPV (7.0 - 9.6 fL) 9.80 H Neut % (Auto) (40 - 76 %) 66.7 Lymph % (Auto) (20.5 - 51.1 %) 19.8 L Haralson % (Auto) (1.7 - 9.3 %) 10.3 H Eos % (Auto) (0.0 - 6.0 %) 1.5 Baso % (Auto) (0.0 - 2.0 %) 0.4 Neut # (Auto) (1.8 - 7.6 K/mm3) 3.2 Lymph # (Auto) (0.6 - 3.0 K/mm3) 0.9 Haralson # (Auto) (0.2 - 1.5 K/mm3) 0.5 Eos # (Auto) (0.0 - 0.4 K/mm3) 0.1 Baso # (Auto) (0.0 - 0.2 K/mm3) 0.0 Abs Immat Gran (auto) (0.00 - 0.03 x10 3/uL) 0.06 H Add Manual Diff (CRITERIA DIFF/SCN) NO Immature Gran % (0.0 - 5.0 %) 1.3 Nucleated RBC % (0.0 - 1.0 /100WBC%) 0.0 Laboratory Tests 10/09 1843 Serology SARS-CoV-2 Ag (Rapid) (Negative) NEGATIVE Diagnosis, Assessment Plan Problem List/A P: 1. ESRD on dialysis 2. Finger infection Free Text DxA P Notes Free text DxA P notes: 66 y/o male admitted for the mgmt of: #Left hand Cellulitis with left index finger ulcer -Admit inpt, tele -Routine vitals -Strict I Os -Pain mgmt -Continue with IV clindamycin -Orhto following (Sent from oro's clinic) #ESRD -HD TTS -Nephro consult, appreciate input #Afib, controlled -Resume home med regimen: eliquis and amio #Hypertension, controlled #COPD w/o acute exacerbation -Resume home med regimen DVT prophy:Eliquis Full code 10/10/21 #Left hand Cellulitis with left index finger ulcer #ESRD #Afib, controlled #Hypertension, controlled #COPD w/o acute exacerbation Plan Poss surgical I D in am NPO after MN Hold Eliquis until after surgery Continue with current meds DVT prophy:SCDs for now but will resume Eliquis postop Full code Rome Tyler 10/21/21 1757: Attestations Physician Attestation Agree w/findings plan: Agree with the findings and plan as documented by [Tuyet]; * my personal evaluation is 66-year-old gentleman admitted from orthopedics office for left index finger infection. Antibiotics. Orthopedics. End-stage renal disease Continue management as per nephrology A. fib hold Eliquis in anticipation for surgery. Continue other medication at 1051 at 1757 RPT #: [id number] END OF REPORT [facility] 2021-10-09 19:35:00 [facility] ([facility]) Nephrology Consultation Note REPORT#:[id number] REPORT STATUS: Signed DATE:10/09/21 TIME:1934 PATIENT: IRA RAYA UNIT #: [id number] ROOM/BED: [place] [address] : 54 AGE: 66 SEX: M ATTEND: Jose Mcfarlane MD ADM AUTHOR: Genaro Gupta MD * ALL edits or amendments must be made on the electronic/computer document * History of Present Illness Requesting clinician: FRANNIE Benz Reason for consult: acute kidney injury Free Text HPI Notes Free Text HPI Notes: 66-year-old male with history hypertension, atrial fibrillation, end-stage renal disease on hemodialysis, admitted with Left hand infection. Patient admitted with the left hand cellulitis /left index ulcer. Patient is end-stage renal disease, on hemodialysis on Tuesday and Tuesday, Renal is consulted for inpatient dialysis. Patient is consulted for inpatient dialysis. History - Adult longitudinal Additional medical history: end-stage renal disease, hypertension Additional surgical history: dialysis graft left forearm Additional family history: reviewed Alcohol use: Denies EtOH use Drug use: Denies recreational drugs Smoking status: Smoking status for patients 13 years old or older: Never Smoker Other social history: Local resident, Good social support Medications: Home Medications: Medication Dose/Rte/Freq Days Qty Entered Last Max Daily Dose Reviewed MIDODRINE (PROAMATINE) 10 MG PO Q8H 1 04/13/21 Strength: 5 MG TAB 1458 APIXABAN (ELIQUIS) 5 MG PO BID 1 04/13/21 Strength: 5 MG TAB 1458 AMIODARONE (CORDARONE) 400 MG PO BID 1 04/13/21 Strength: 200 MG TAB 1458 SEVELAMER CARBONATE 800 MG PO C MEALS 1 04/13/21 (RENVELA) 1459 Strength: [address] 40 MG PO 1 04/13/21 (PROTONIX) DAILY@0600 1459 Strength: 40 MG TAB. CINACALCET (SENSIPAR) 30 MG PO BEDTIME 1 04/13/21 Strength: 30 MG TAB 1459 HYDROCORTISONE 20 MG PO BID 1 04/13/21 (CORTEF) 1500 Strength: 20 MG TAB Current Hospital Medications: Anti-Infective Agents Sig/Sue Start time Last Medication Dose Route Stop Time Status Admin Clindamycin Phosphate 50 ML Q8H 10/09 1930 AC (CLEOCIN 600 MG/NS IV 10/23 192 50 ML) Clindamycin Phosphate 600 MG ONCE ONE 10/09 1730 DC (CLEOCIN PHOSPHATE) IV 10/09 1731 Blood Formation,Coagulation Sig/Sue Start time Last Medication Dose Route Stop Time Status Admin Apixaban 5 MG Q12HR 10/10 0900 AC (ELIQUIS) PO 10/24 0859 Cardiovascular Drugs Sig/Sue Start time Last Medication Dose Route Stop Time Status Admin Amiodarone HCl 400 MG Q12HR 10/09 2100 CKD (CORDARONE) PO 11/08 205 Central Nervous System Agents Sig/Sue Start time Last Medication Dose Route Stop Time Status Admin Acetaminophen 650 MG Q6H PRN PRN 10/09 1845 AC (TYLENOL) PO 11/08 184 Hydrocodone Bitart/ 1 TAB Q6H PRN PRN 10/09 1844 AC Acetaminophen PO 10/20 1843 (NORCO 7.5/325) Morphine Sulfate 4 MG Q4H PRN PRN 10/09 1844 AC (morphine SULFATE) IV 10/20 1843 Electrolytic, Caloric, And Mallika Sig/Sue Start time Last Medication Dose Route Stop Time Status Admin Sevelamer Carbonate 800 MG C MEALS 10/10 1999 AC (RENVELA) PO 11/08 1958 Sodium Chloride 150 ML BOLUS ONCE STA 10/09 172 DC (0.9% Sodium IV 10/10 1827 Chloride) Gastrointestinal Drugs Sig/Sue Start time Last Medication Dose Route Stop Time Status Admin Pantoprazole 40 MG DAILY@0600 10/10 0600 AC (PROTONIX) PO 11/09 558 Ondansetron HCl 4 MG Q6H PRN PRN 10/09 1844 AC (ZOFRAN) IV 11/09 1843 Miscellaneous Therapeutic Agen Sig/Sue Start time Last Medication Dose Route Stop Time Status Admin Cinacalcet 30 MG BEDTIME 10/09 2099 AC (SENSIPAR) PO 11/08 2058 Allergies: Coded Allergies: amlodipine (From NORVASC) (Mild, RASH 10/05/21) amoxicillin (From AUGMENTIN) (Mild, ABD PAIN 10/05/21) clavulanic acid (From AUGMENTIN) (Mild, ABD PAIN 10/05/21) Review of Systems Free Text ROS Notes Free Text ROS Notes: 10 point review of system performed and documented subjective, otherwise negative. Objective General VS/I O: Vital Signs: Date Time Temp Pulse Resp B/P B/P Pulse O2 O2 Flow FiO2 Mean Ox Delivery Rate 10/09 1719 37.2 72 18 111/51 71 99 Room air PATIENT WEIGHT: Weight (lb): Weight (oz): Weight (kg): 135.700 Medications: Active Meds + DC'd Last 24 Hrs Apixaban (ELIQUIS) 5 MG Q12HR PO Pantoprazole (PROTONIX) 40 MG DAILY@0600 PO Amiodarone HCl (CORDARONE) 400 MG Q12HR PO (CKD) Cinacalcet (SENSIPAR) 30 MG BEDTIME PO Sevelamer Carbonate (RENVELA) 800 MG C MEALS PO Clindamycin Phosphate (CLEOCIN 600 MG/NS 50 ML) 50 ML Q8H IV Acetaminophen (TYLENOL) 650 MG Q6H PRN PRN PO Hydrocodone Bitart/Acetaminophen (NORCO 7.5/325) 1 TAB Q6H PRN PRN PO Morphine Sulfate (morphine SULFATE) 4 MG Q4H PRN PRN IV Ondansetron HCl (ZOFRAN) 4 MG Q6H PRN PRN IV Clindamycin Phosphate (CLEOCIN PHOSPHATE) 600 MG ONCE ONE IV (DC) Sodium Chloride (0.9% Sodium Chloride) 150 ML BOLUS ONCE STA IV (DC) Physical Exam General appearance: awake Head/eyes: PERRL ENT: normal nose Neck: no JVD C-Spine clearance: no midline tenderness Cardiovascular: no murmur Respiratory: clear to auscultation Abdomen: non-tender, soft Genitourinary: no gómez Extremities: no edema Musculoskeletal: full range of motion Neuro/GRAIN ELEVATOR MOTOR STARTER: Awake Results Findings/Data: Laboratory Tests 10/09 1822 Chemistry Sodium (134 - 147 mmol/L) 135 Potassium (3.4 - 5.0 mmol/L) 3.6 Chloride (100 - 108 mmol/L) 98 L Carbon Dioxide (21 - 32 mmol/L) 31 Anion Gap (4.0 - 15.0 GAP calc) 6.0 BUN (7 - 18 MG/DL) 14 Creatinine (0.8 - 1.3 MG/DL) 5.3 H Glomerular Filtr Rate (>60 estGFR) 14 L Glucose (70 - 110 MG/DL) 62 L Calcium (8.5 - 10.1 MG/DL) 9.4 Laboratory Tests 10/09 1822 Hematology WBC (3.5 - 11.0 K/mm3) 4.8 RBC (4.70 - 6.10 M/mm3) 4.50 L Hgb (12.3 - 15.9 G/DL) 10.6 L Hct (35.8 - 46.7 %) 35.3 L MCV (86.3 - 98.9 Fl) 78.4 L MCH (28.9 - 34.4 pg) 23.6 L MCHC (32.1 - 34.5 G/DL) 30.0 L RDW (11.5 - 14.5 SD) 18.7 H Plt Count (150 - 450 K/mm3) 216 MPV (7.0 - 9.6 fL) 9.80 H Neut % (Auto) (40 - 76 %) 66.7 Lymph % (Auto) (20.5 - 51.1 %) 19.8 L Haralson % (Auto) (1.7 - 9.3 %) 10.3 H Eos % (Auto) (0.0 - 6.0 %) 1.5 Baso % (Auto) (0.0 - 2.0 %) 0.4 Neut # (Auto) (1.8 - 7.6 K/mm3) 3.2 Lymph # (Auto) (0.6 - 3.0 K/mm3) 0.9 Haralson # (Auto) (0.2 - 1.5 K/mm3) 0.5 Eos # (Auto) (0.0 - 0.4 K/mm3) 0.1 Baso # (Auto) (0.0 - 0.2 K/mm3) 0.0 Abs Immat Gran (auto) (0.00 - 0.03 x10 3/uL) 0.06 H Add Manual Diff (CRITERIA DIFF/SCN) NO Immature Gran % (0.0 - 5.0 %) 1.3 Nucleated RBC % (0.0 - 1.0 /100WBC%) 0.0 Laboratory Tests 10/09 184 Serology SARS-CoV-2 Ag (Rapid) (Negative) NEGATIVE Diagnosis, Assessment Plan Free Text DxA P Notes Free Text DxA P Notes: 1. end-stage renal disease on hemodialysis. Hemodialysis on TTS. 2. Hypertension. 3. left hand cellulitis. 4. Chronic anemia of renal disease. 5. atrial fibrillation. recommendations. Renal restriction diet. limit fluid to 1 L a day. No need for Epogen at this time. Check phosphorus, adjust phosphorus binders. Resume blood pressure medication. No need for emergent dialysis today. Thank you for the consultation, any question please call [phone]. at [phone] RPT #: [id number] END OF REPORT [facility] 2021-10-09 18:37:00 [facility] ([facility]) History Physical - Adult REPORT#:[id number] REPORT STATUS: Signed DATE:10/09/21 TIME:1836 PATIENT: IRA RAYA UNIT #: [id number] ROOM/BED: [facility]13-1 : 54 AGE: 66 SEX: M ATTEND: Jose Mcfarlane MD ADM AUTHOR: Tuyet Calderón MSN * ALL edits or amendments must be made on the electronic/computer document * Tuyet Calderón 10/09/21 1837: History of Present Illness HPI Chief complaint: Infected hand PCP: PCP: Keisha Benson MD HPI: 66-year-old male with PMHx of end-stage renal disease on HD TTS, atrial fibrillation on Eliquis, sent to er per orthopedic for the eval and mgmt of infected left hand. According to pt, he accidentlly jammed his index finger on a hard surface over a week ago. He said that finger got infected and now the whole hand is swollen and painful. Saw ortho today but was sent to er. Denies fever, nausea, or vomiting. History Additional surgical history: dialysis graft left forearm Alcohol use: Denies EtOH use Drug use: Denies recreational drugs Smoking status: Smoking status for patients 13 years old or older: Never Smoker Other social history: Local resident, Good social support Medication/Allergy-Vaccine Hx Medications: Home Medications: Medication Dose/Rte/Freq Days Qty Entered Last Max Daily Dose Reviewed MIDODRINE (PROAMATINE) 10 MG PO Q8H 1 04/13/21 Strength: 5 MG TAB 1458 APIXABAN (ELIQUIS) 5 MG PO BID 1 04/13/21 Strength: 5 MG TAB 1458 AMIODARONE (CORDARONE) 400 MG PO BID 1 04/13/21 Strength: 200 MG TAB 1458 SEVELAMER CARBONATE 800 MG PO C MEALS 1 04/13/21 (RENVELA) 1459 Strength: [address] 40 MG PO 1 04/13/21 (PROTONIX) DAILY@0600 1459 Strength: 40 MG TAB. CINACALCET (SENSIPAR) 30 MG PO BEDTIME 1 04/13/21 Strength: 30 MG TAB 1459 HYDROCORTISONE 20 MG PO BID 1 04/13/21 (CORTEF) 1500 Strength: 20 MG TAB Current Hospital Medications: Anti-Infective Agents Sig/Sue Start time Last Medication Dose Route Stop Time Status Admin Clindamycin Phosphate 600 MG ONCE ONE 04/01 1730 DC (CLEOCIN PHOSPHATE) IV 10/09 1730 Electrolytic, Caloric, And Mallika Sig/Sue Start time Last Medication Dose Route Stop Time Status Admin Sodium Chloride 150 ML BOLUS ONCE STA 10/09 1728 DC (0.9% Sodium IV 10/10 1827 Chloride) Allergies: Coded Allergies: amlodipine (From NORVASC) (Mild, RASH 10/05/21) amoxicillin (From AUGMENTIN) (Mild, ABD PAIN 10/05/21) clavulanic acid (From AUGMENTIN) (Mild, ABD PAIN 10/05/21) Review of Systems Constitutional: Denies: chills, fever. Skin: Reports: swelling. Musculoskeletal: Extremity pain: Reports: left upper. All systems rev neg: except as marked Physical Exam VS/I O Vital Signs: Date Time Temp Pulse Resp B/P B/P Pulse O2 O2 Flow FiO2 Mean Ox Delivery Rate 10/09 1718 99.0 72 18 111/51 71 99 Room air PATIENT WEIGHT: Weight (lb): Weight (oz): Weight (kg): 135.700 General appearance: alert, awake, oriented Head/Eyes: atraumatic, normocephalic, PERRLA ENT: normal ear left, normal ear right, normal nose Neck: full range of motion, non-tender, normal thyroid Cardiovascular: irregular rhythm, normal capillary refill Respiratory: clear to auscultation, no distress, aerating well Abdomen/GI: active bowel sounds, soft, non-tender Extremities: moves all, no clubbing, no cyanosis Musculoskeletal: normal inspection Neuro/GRAIN ELEVATOR MOTOR STARTER: alert, oriented X 3, normal speech Skin: lesions, dry, normal color, Swollen left hand, necrotic ulcer left index finger Psychiatry: normal affect Results Findings/Data: Laboratory Tests: 10/09 1822 Hematology WBC (3.5 - 11.0 K/mm3) 4.8 RBC (4.70 - 6.10 M/mm3) 4.50 L Hgb (12.3 - 15.9 G/DL) 10.6 L Hct (35.8 - 46.7 %) 35.3 L MCV (86.3 - 98.9 Fl) 78.4 L MCH (28.9 - 34.4 pg) 23.6 L MCHC (32.1 - 34.5 G/DL) 30.0 L RDW (11.5 - 14.5 SD) 18.7 H Plt Count (150 - 450 K/mm3) 216 MPV (7.0 - 9.6 fL) 9.80 H Neut % (Auto) (40 - 76 %) 66.7 Lymph % (Auto) (20.5 - 51.1 %) 19.8 L Haralson % (Auto) (1.7 - 9.3 %) 10.3 H Eos % (Auto) (0.0 - 6.0 %) 1.5 Baso % (Auto) (0.0 - 2.0 %) 0.4 Neut # (Auto) (1.8 - 7.6 K/mm3) 3.2 Lymph # (Auto) (0.6 - 3.0 K/mm3) 0.9 Haralson # (Auto) (0.2 - 1.5 K/mm3) 0.5 Eos # (Auto) (0.0 - 0.4 K/mm3) 0.1 Baso # (Auto) (0.0 - 0.2 K/mm3) 0.0 Abs Immat Gran (auto) (0.00 - 0.03 x10 3/uL) 0.06 H Add Manual Diff (CRITERIA DIFF/SCN) NO Immature Gran % (0.0 - 5.0 %) 1.3 Nucleated RBC % (0.0 - 1.0 /100WBC%) 0.0 Diagnosis, Assessment Plan Problem List/A P: 1. ESRD on dialysis 2. Finger infection Plan discussed with: patient Code Status/Resusc. Discussion Code status: full code Free Text DxA P Notes Free Text DxA P Notes: 66 y/o male admitted for the mgmt of: #Left hand Cellulitis with left index finger ulcer -Admit inpt, tele -Routine vitals -Strict I Os -Pain mgmt -Continue with IV clindamycin -Orhto following (Sent from orhto's clinic) #ESRD -HD TTS -Nephro consult, appreciate input #Afib, controlled -Resume home med regimen: eliquis and amio #Hypertension, controlled #COPD w/o acute exacerbation -Resume home med regimen DVT prophy:Eliquis Full code Rome Tyler 10/21/21 6656: Attestations Physician Attestation Agree w/findings plan: Agree with the findings and plan as documented by [Tuyet]; * my personal evaluation is 66-year-old gentleman admitted from orthopedics office for left index finger infection. Antibiotics. Orthopedics. End-stage renal disease Continue management as per nephrology A. fib hold Eliquis in anticipation for surgery. Continue other medication at 1920 at 1754 RPT #: [id number] END OF REPORT [facility] 2021-10-09 18:29:00 [facility] ([facility]) EMERGENCY PROVIDER REPORT REPORT#:[id number] REPORT STATUS: Signed DATE:10/09/21 TIME:1828 PATIENT: IRA RAYA UNIT #: [id number] ROOM[address]BED[address] : [birth year] AGE: 66 SEX: M PCP PHYS: Keisha Benson MD SERVICE AUTHOR: Barbara Garces DO * ALL edits or amendments must be made on the electronic/computer document * HPI-General Illness General Initial Greet Date/Time 10/09/21 1641 Presentation Chief Complaint Left hand infection Free Text HPI Notes Free Text HPI Notes The patient is a 66-year-old male with a past medical history significant for end-stage renal disease on hemodialysis Tuesday, and Tuesday and atrial fibrillation on Eliquis who is presenting with an infection on his left hand. Of note, the patient was sent to the emergency department by his orthopedic surgeon. He denies experiencing a fever, nausea or vomiting. Review of Systems ROS Statements All systems rev neg except as marked. Past Medical History - Adult Stated Complaint LEFT HAND, DOC SENT ME HERE FOR ADMISSION Allergies Coded Allergies: amlodipine (From NORVASC) (Mild, RASH 10/05/21) amoxicillin (From AUGMENTIN) (Mild, ABD PAIN 10/05/21) clavulanic acid (From AUGMENTIN) (Mild, ABD PAIN 10/05/21) Home Medications Active Scripts MIDODRINE (PROAMATINE) 10 MG PO Q8H MIDODRINE (PROAMATINE) 10 MG PO Q8H #1 TAB Prov: 04/13/21 APIXABAN (ELIQUIS) 5 MG PO BID APIXABAN (ELIQUIS) 5 MG PO BID #1 TAB Prov: 04/13/21 AMIODARONE (CORDARONE) 400 MG PO BID AMIODARONE (CORDARONE) 400 MG PO BID #1 TAB Prov: 04/13/21 SEVELAMER CARBONATE (RENVELA) 800 MG PO C MEALS SEVELAMER CARBONATE (RENVELA) 800 MG PO C MEALS #1 TAB Prov: 04/13/[address] (PROTONIX) 40 MG PO DAILY@[address] (PROTONIX) 40 MG PO DAILY@0600 #1 TAB Prov: 04/13/21 CINACALCET (SENSIPAR) 30 MG PO BEDTIME CINACALCET (SENSIPAR) 30 MG PO BEDTIME #1 TAB Prov: 04/13/21 HYDROCORTISONE (CORTEF) 20 MG PO BID HYDROCORTISONE (CORTEF) 20 MG PO BID #1 TABS Prov: 04/13/21 Physical Exam Vital Signs Vital Signs First Documented: Result Date Time Pulse Ox 99 10/09 1719 B/P 111/51 10/09 1719 B/P Mean 71 10/09 1719 O2 Delivery Room air 10/09 1719 Temp 37.2 10/09 1719 Pulse 72 10/09 1719 Resp 18 10/09 171 Last Documented: Result Date Time Pulse Ox 99 10/09 1719 B/P 111/51 10/09 1719 B/P Mean 71 10/09 1719 O2 Delivery Room air 10/09 1719 Temp 37.2 10/09 171 Pulse 72 10/09 171 Resp 18 10/09 1718 Review of Vital Signs Reviewed Physical Exam General/Const General/Const Awake, Alert, No acute distress, Well appearing MS Head Head Atraumatic, Normocephalic Eyes Eyes Atraumatic, No scleral icterus Ears/Nose/Throat Ears/Nose/Throat Atraumatic, Airway patent, Mucous membranes moist, Pharynx NL MS Neck Neck Atraumatic, Supple, No meningismus, Full range of motion Resp/Chest Respiratory/Chest Atraumatic, Breath sounds NL, Breath sounds = bilat, No respiratory distress Cardiovascular Cardiovascular Heart rate NL, Regular rhythm, Heart sounds NL, No gallop Abdomen/GI Abdomen/GI Atraumatic, Soft, Non-tender, McBurney's non-tender MS Upper Extrem Text/Dict Notes Diffuse fusiform swelling is present on the second digit of the patient's left hand. Capillary refill is less than 3 seconds. The patient is neurovascularly intact in his left upper extremity. Interpretation Diagnostics Lab Results Interpretation Results Laboratory Tests 10/09/211822: [Embedded Image Not Available] Laboratory Tests: 10/09 1822 Chemistry Sodium (134 - 147 mmol/L) 135 Potassium (3.4 - 5.0 mmol/L) 3.6 Chloride (100 - 108 mmol/L) 98 L Carbon Dioxide (21 - 32 mmol/L) 31 Anion Gap (4.0 - 15.0 GAP calc) 6.0 BUN (7 - 18 MG/DL) 14 Creatinine (0.8 - 1.3 MG/DL) 5.3 H Glomerular Filtr Rate (>60 estGFR) 14 L Glucose (70 - 110 MG/DL) 62 L Calcium (8.5 - 10.1 MG/DL) 9.4 Hematology WBC (3.5 - 11.0 K/mm3) 4.8 RBC (4.70 - 6.10 M/mm3) 4.50 L Hgb (12.3 - 15.9 G/DL) 10.6 L Hct (35.8 - 46.7 %) 35.3 L MCV (86.3 - 98.9 Fl) 78.4 L MCH (28.9 - 34.4 pg) 23.6 L MCHC (32.1 - 34.5 G/DL) 30.0 L RDW (11.5 - 14.5 SD) 18.7 H Plt Count (150 - 450 K/mm3) 216 MPV (7.0 - 9.6 fL) 9.80 H Neut % (Auto) (40 - 76 %) 66.7 Lymph % (Auto) (20.5 - 51.1 %) 19.8 L Haralson % (Auto) (1.7 - 9.3 %) 10.3 H Eos % (Auto) (0.0 - 6.0 %) 1.5 Baso % (Auto) (0.0 - 2.0 %) 0.4 Neut # (Auto) (1.8 - 7.6 K/mm3) 3.2 Lymph # (Auto) (0.6 - 3.0 K/mm3) 0.9 Haralson # (Auto) (0.2 - 1.5 K/mm3) 0.5 Eos # (Auto) (0.0 - 0.4 K/mm3) 0.1 Baso # (Auto) (0.0 - 0.2 K/mm3) 0.0 Abs Immat Gran (auto) (0.00 - 0.03 x10 3/uL) 0.06 H Add Manual Diff (CRITERIA DIFF/SCN) NO Immature Gran % (0.0 - 5.0 %) 1.3 Nucleated RBC % (0.0 - 1.0 /100WBC%) 0.0 Re-Evaluation MDM ED Course Medication(s) Ordered Medication(s) Ordered: Anti-Infective Agents Sig/Sue Start time Last Medication Dose Route Stop Time Status Admin Clindamycin Phosphate 600 MG ONCE ONE 10/09 173 DC IV 10/09 173 Electrolytic, Caloric, And Mallika Sig/Sue Start time Last Medication Dose Route Stop Time Status Admin Sodium Chloride 150 ML BOLUS ONCE STA 10/09 172 DC IV 10/09 182 Patient Discharge Departure Vital Signs/Condition Vital Signs First Documented: Result Date Time Pulse Ox 99 10/09 1719 B/P 111/51 10/09 1719 B/P Mean 71 10/09 1719 O2 Delivery Room air 10/09 171 Temp 37.2 10/09 1719 Pulse 72 10/09 1719 Resp 18 10/09 1719 Last Documented: Result Date Time Pulse Ox 99 10/09 1719 B/P 111/51 10/09 1719 B/P Mean 71 10/09 1719 O2 Delivery Room air 10/09 1719 Temp 37.2 10/09 1719 Pulse 72 10/09 1719 Resp 18 10/09 1719 All vital signs available at the time of this entry have been reviewed. Clinical Impression Clinical Impression Primary Impression: Finger infection Disposition Decision Admit Admit Physician Name Rome Tyler MD Admit Physician Hospitalist Request Time 183 Request Date 10/09/21 )( Admission Accepts Yes )( Accepted Time 1830 )( Accepted Date 10/09/21 Call Information will see patient at 1228 RPT #: [id number] END OF REPORT [facility] 2021-10-05 10:33:00 [id number] [facility] [address] [place] [address] PATIENT NAME: IRA RAYA ADMIT DATE: 10/05/21 ACCOUNT NO: [id number] ROOM NO: AGE: 66 REPORT TYPE: eELECTROCARDIOGRAM SEX: M ADMITTING PHYSICIAN: ATTENDING PHYSICIAN: Order: [id number] Test Reason : L HAND INFECTION Test Date/Time Stamp: TueOct 05 2021 10:33:14 Blood Pressure : / mmHG Vent. Rate : 067 BPM Atrial Rate : 337 BPM P-R Int : 000 ms QRS Dur : 092 ms QT Int : 436 ms P-R-T Axes : 000 -56 091 degrees QTc Int : 460 ms Atrial flutter with variable AV block Left axis deviation Low voltage QRS Abnormal ECG Confirmed by MD Robbins Amir ([id number]) on 10/24/2021 10:32:14 AM Referred By: Self Referred Confirmed by:Rishabh Robbins MD at 1032 PATIENT NAME: IRA RAYA [facility] 2021-10-05 10:21:00 [facility] ([facility]) EMERGENCY PROVIDER REPORT REPORT#:[id number] REPORT STATUS: Signed DATE:10/05/21 TIME:1021 PATIENT: IRA RAYA UNIT #: [id number] ROOM/BED: : 54 AGE: 66 SEX: M PCP PHYS: Keisha Benson MD SERVICE AUTHOR: Naina Byrne * ALL edits or amendments must be made on the electronic/computer document * Naina Byrne 10/05/21 1021: HPI-Hand Prob/Inj Free Text HPI Notes Free Text HPI Notes 66-year-old male with past medical history of hypertension, coronary artery disease, ESRD on hemodialysis, gout, and A. fib on Eliquis presents the ED complaining of pain to his left hand which began in his left index finger and has spread to his hand and wrist for the past 3 weeks. His pain and swelling were getting worse which prompted him to visit [facility] ER yesterday. He had an incision and drainage done to his left index finger and according to the patient there was purulent drainage expressed. He had blood work and a CAT scan of his hand. He was began on Flagyl, clindamycin, and Levaquin and was told to follow-up at a hospital that had a hand surgeon which is what brings the patient to [facility] today. (He was told to take Levaquin 2 days after each dialysis.) He says since yesterday his pain has improved a little bit. He denies any sweats, chills, fever, vomiting, and history of trauma. Patient does not have any results of his blood work or CAT scan with him. General Initial Greet Date/Time 10/05/21 1004 Presentation Chief Complaint Hand pain L Review of Systems ROS Statements All systems rev neg except as marked. Past Medical History - Adult Stated Complaint POSSIBLE INFECTION IN LEFT HAND Allergies Coded Allergies: amlodipine (From NORVASC) (Mild, RASH 10/05/21) amoxicillin (From AUGMENTIN) (Mild, ABD PAIN 10/05/21) clavulanic acid (From AUGMENTIN) (Mild, ABD PAIN 10/05/21) Home Medications Active Scripts MIDODRINE (PROAMATINE) 10 MG PO Q8H MIDODRINE (PROAMATINE) 10 MG PO Q8H #1 TAB Prov: 04/13/21 APIXABAN (ELIQUIS) 5 MG PO BID APIXABAN (ELIQUIS) 5 MG PO BID #1 TAB Prov: 04/13/21 AMIODARONE (CORDARONE) 400 MG PO BID AMIODARONE (CORDARONE) 400 MG PO BID #1 TAB Prov: 04/13/21 SEVELAMER CARBONATE (RENVELA) 800 MG PO C MEALS SEVELAMER CARBONATE (RENVELA) 800 MG PO C MEALS #1 TAB Prov: 04/13/[address] (PROTONIX) 40 MG PO DAILY@[address] (PROTONIX) 40 MG PO DAILY@0600 #1 TAB Prov: 04/13/21 CINACALCET (SENSIPAR) 30 MG PO BEDTIME CINACALCET (SENSIPAR) 30 MG PO BEDTIME #1 TAB Prov: 04/13/21 HYDROCORTISONE (CORTEF) 20 MG PO BID HYDROCORTISONE (CORTEF) 20 MG PO BID #1 TABS Prov: 04/13/21 Additional Surgical History dialysis graft left forearm Alcohol Use Denies EtOH use Drug Use Denies recreational drugs Smoking status: Smoking status for patients 13 years old or older: Never Smoker Other Social History Local resident, Good social support Physical Exam Vital Signs Vital Signs First Documented: Result Date Time B/P 160/111 10/05 1023 B/P Mean 127 10/05 1023 O2 Delivery Room air 10/05 1023 Temp 97.3 10/05 1023 Resp 18 10/05 1023 Pulse Ox 97 10/05 1030 Pulse 74 10/05 1030 Last Documented: Result Date Time Pulse Ox 97 10/05 1550 B/P 121/79 10/05 1550 B/P Mean 93 10/05 1550 O2 Delivery Room air 10/05 1550 Pulse 66 10/05 1550 Resp 17 10/05 1550 Temp 97.3 10/05 1023 Review of Vital Signs Reviewed Focused PE General/Const General/Const Awake, Alert, No acute distress, Well appearing, Well developed , Well hydrated, Well nourished, Cooperative, Not toxic appearing MS Wrist/Hand Text/Dict Note Left hand: There are some mild to moderate diffuse edema. No obvious erythema. No warmth. He has a wound to the dorsal aspect of his distal index finger proximal to his nailbed where an I D was performed yesterday. There is scant bloody drainage with an odor. No fluctuance. Full active range of motion. Skin Skin Color NL, Warm, Dry Neurologic Neurologic Oriented X3, Speech NL, No motor deficits Additional PE Ears/Nose/Throat Ears/Nose/Throat Airway patent, No facial swelling Resp/Chest Respiratory/Chest No respiratory distress, No stridor Cardiovascular Cardiovascular Heart rate NL, Peripheral circulation NL Interpretation Diagnostics Lab Results Interpretation Results Laboratory Tests 10/05/21 1140: [Embedded Image Not Available] Laboratory Tests: 10/05 10/05 1140 1140 Chemistry Sodium (134 - 147 mmol/L) 136 Potassium (3.4 - 5.0 mmol/L) 3.5 Chloride (100 - 108 mmol/L) 99 L Carbon Dioxide (21 - 32 mmol/L) 30 Anion Gap (4.0 - 15.0 GAP calc) 7.0 BUN (7 - 18 MG/DL) 24 H Creatinine (0.8 - 1.3 MG/DL) 6.2 H Glomerular Filtr Rate (>60 estGFR) 12 L Glucose (70 - 110 MG/DL) 84 Lactic Acid (0.4 - 2.0 mmol/L) 1.5 Calcium (8.5 - 10.1 MG/DL) 8.1 L Total Bilirubin (0.2 - 1.2 MG/DL) 0.50 Direct Bilirubin (0.00 - 0.30 MG/DL) 0.20 Indirect Bilirubin (0.2 - 1.2 MG/DL) 0.30 AST (15 - 37 Unit/L) 12 L ALT (12 - 78 Unit/L) 10 L Total Alk Phosphatase (50 - 136 Unit/L) 155 H Troponin I High Sens (0 - 54 ng/L) 11.5 Total Protein (6.4 - 8.2 G/DL) 6.3 L Albumin (3.4 - 5.0 G/DL) 2.3 L Hematology WBC (3.5 - 11.0 K/mm3) 5.6 RBC (4.70 - 6.10 M/mm3) 4.19 L Hgb (12.3 - 15.9 G/DL) 10.2 L Hct (35.8 - 46.7 %) 34.2 L MCV (86.3 - 98.9 Fl) 81.6 L MCH (28.9 - 34.4 pg) 24.3 L MCHC (32.1 - 34.5 G/DL) 29.8 L RDW (11.5 - 14.5 SD) 18.5 H Plt Count (150 - 450 K/mm3) 180 MPV (7.0 - 9.6 fL) 10.10 H Neut % (Auto) (40 - 76 %) 72.7 Lymph % (Auto) (20.5 - 51.1 %) 13.1 L Haralson % (Auto) (1.7 - 9.3 %) 12.1 H Eos % (Auto) (0.0 - 6.0 %) 1.1 Baso % (Auto) (0.0 - 2.0 %) 0.5 Neut # (Auto) (1.8 - 7.6 K/mm3) 4.1 Lymph # (Auto) (0.6 - 3.0 K/mm3) 0.7 Haralson # (Auto) (0.2 - 1.5 K/mm3) 0.7 Eos # (Auto) (0.0 - 0.4 K/mm3) 0.1 Baso # (Auto) (0.0 - 0.2 K/mm3) 0.0 Abs Immat Gran (auto) (0.00 - 0.03 x10 3/uL) 0.03 Add Manual Diff (CRITERIA DIFF/SCN) NO Immature Gran % (0.0 - 5.0 %) 0.5 Nucleated RBC % (0.0 - 1.0 /100WBC%) 0.0 Microbiology: Date/Time Procedure - Status Source Growth 10/05 1150 Blood Culture - RECD BLOOD 10/05 1140 Blood Culture - RECD BLOOD Recent Impressions: CAT SCAN - CT UP EXTREM W/O CONT LT 10/05 1040 Report Impression - Status: SIGNED Entered: 10/05/2021 1342 IMPRESSION: No evidence for acute osseous abnormality. Partially visualized tubular appearing structure within the lateral distal forearm, this could reflect a graft or venous varicosity for which peripheral calcifications would suggest chronic thrombosis. Correlate with surgical history. Nonspecific diffuse subcutaneous edema. Impression By: [email or web address] - Tyrese Thorne M.D. RADIOLOGY - XR CHEST 1 V 10/05 1050 Report Impression - Status: SIGNED Entered: 10/05/2021 1114 IMPRESSION: 1. Stable cardiomegaly. 2. Interval reduction in prominence of vascular interstitial markings. Impression By: [email or web address] - Erlin An M.D. Lab Imaging Statement Laboratory radiographic studies reviewed and considered in the medical decision-making. ECG #1 Interpretation Date 10/05/21 Time 1033 Interpreted by ED physician NL ECG Interpretation Normal rate (67), No STEMI, Aflutter with variable AV block Re-Evaluation MDM Free Text MDM Notes Free Text MDM Notes 1440: Patient reports his pain is controlled. Case discussed with Dr. Andrew. Patient is stable for discharge home to follow-up outpatient with hand. He is to continue the antibiotics he was prescribed yesterday. Discussed with patient is to return to the emergency room for any worsening pain, fever, vomiting, or any concerns. ED Course Medication(s) Ordered Medication(s) Ordered: Anti-Infective Agents Sig/Sue Start time Last Medication Dose Route Stop Time Status Admin Vancomycin HCl 1,000 MG X1ED STA 10/05 1016 DC 10/05 Sodium Chloride 250 ML IV 10/05 1145 1151 Central Nervous System Agents Sig/Sue Start time Last Medication Dose Route Stop Time Status Admin Acetaminophen 650 MG X1ED STA 10/05 1015 DC RECTAL 10/05 1016 Electrolytic, Caloric, And Mallika Sig/Sue Start time Last Medication Dose Route Stop Time Status Admin Sodium Chloride 1,000 ML X1ED STA 10/05 1020 DCD 10/05 IV 10/05 1819 1151 Patient Discharge Departure Vital Signs/Condition Vital Signs First Documented: Result Date Time B/P 160/111 10/05 1023 B/P Mean 127 10/05 1023 O2 Delivery Room air 10/05 1023 Temp 97.3 10/05 1023 Resp 18 10/05 1023 Pulse Ox 97 10/05 1030 Pulse 74 10/05 1030 Last Documented: Result Date Time Pulse Ox 97 10/05 1550 B/P 121/79 10/05 1550 B/P Mean 93 10/05 1550 O2 Delivery Room air 10/05 1550 Pulse 66 10/05 1550 Resp 17 10/05 1550 Temp 97.3 10/05 1023 All vital signs available at the time of this entry have been reviewed. Condition Stable Clinical Impression Clinical Impression Primary Impression: Finger infection Disposition Decision Discharge )( Discharged to Home Yes )( Time 1444 )( Date 10/05/21 Discharge/Care Plan Counseled Regarding Diagnosis, Lab results, Imaging studies, Need for follow-up, When to return to ED Patient Instructions ED Cellulitis Discharge Note I have spoken with the patient and/or caregivers. I have explained the patient's condition, diagnoses and treatment plan based on the information available to me at this time. I have answered the patient's and/or caregiver's questions and addressed any concerns. The patient and/or caregivers have as good an understanding of the patient's diagnosis, condition and treatment plan as can be expected at this point. The vital signs have been stable. The patient's condition is stable and appropriate for discharge from the emergency department. The patient will pursue further outpatient evaluation with the primary care physician or other designated or consulting physician as outlined in the discharge instructions. The patient and/or caregivers are agreeable to this plan of care and follow-up instructions have been explained in detail. The patient and/or caregivers have received these instructions in written format and have expressed an understanding of the discharge instructions. The patient and/or caregivers are aware that any significant change in condition or worsening of symptoms should prompt an immediate return to this or the closest emergency department or a call to 911. Jyoti Andrew 10/05/21 1721: Patient Discharge Departure Discharge/Care Plan Referrals Provider Referral: Amita Gr MD Follow-Up: 1-2 Days Notes: Orthopedics, hand Address: [address] [place] [address] [place] [address] Supervising Physician Note MidLv/Doc Saw Pt 1 I have personally seen the patient and I evaluated the patient along with involvement of the PA/AUTOMATED PROCESS OPERATOR. I agree with the PA/hall cleaner findings and plan. I have performed all aspects of MDM as documented including: evaluation of the patient/ patient's condition(s), review and analysis of available data, and determination of risk of patient management decisions. at 1713 at 1721 RPT #: [id number] END OF REPORT [facility] 2021-04-16 16:35:00 [facility] ([facility]) Infectious Dis. Progress Note REPORT#:[id number] REPORT STATUS: Signed DATE:04/16/21 TIME:1634 PATIENT: IRA RAYA UNIT #: [id number] ROOM/BED: [place] [id number] : [birth year] AGE: 65 SEX: M ATTEND: Mandy Devlin MD ADM AUTHOR: Bridgett Ramos * ALL edits or amendments must be made on the electronic/computer document * Bridgett Ramos 04/16/21 1635: Subjective Chief Complaint: HCAP HPI: Patient afebrile. On room air. Getting HD today. WBC 11.9 maintaining. Review of Systems Constitutional: Denies: chills, fatigue, fever. GI: Denies: diarrhea, nausea, vomiting. Objective General VS/I O: Last Documented: Result Date Time B/P 110/67 04/16 1618 Temp 36.6 04/16 1618 Pulse 86 04/16 1618 Resp 18 10/07 1618 O2 Delivery Room air 04/16 1320 Pulse Ox 94 04/16 0925 B/P Mean 80.6 04/16 0811 FiO2 21 04/16 0357 O2 Flow Rate 4 04/13 0737 Vital Signs Date Temp Pulse Resp B/P B/P Mean Pulse Ox FiO2 04/15-04/16 36.5-36.9 83-91 14-22 95-110/56-73 77.2-84.9 93-99 21 PATIENT WEIGHT: Weight (lb): Weight (oz): Weight (kg): 136.400 Physical Exam Head/Eyes: atraumatic, EOMI, normal conjunctiva/sclera, normal eyelids/periorb, normocephalic ENT: moist mucosal membranes, normal dentition, normal nose Neck: full range of motion, supple/no meningismus, no masses or swelling Respiratory: aerating well, symmetric expansion, no distress Extremities: normal temperature, no clubbing, no contracture, no cyanosis Neuro/GRAIN ELEVATOR MOTOR STARTER: alert, oriented X 3, normal speech Skin: dry, intact, normal color, no rash Diagnosis, Assessment Plan Free Text A P: Laboratory Tests 04/16/21 0535: [Embedded Image Not Available] 04/07 MRSA neg Imaging: CTA GGOs, no PE 04/07 CXR b/l infiltrates 04/10, 2 TTE reviewed Assessment: 1. Sepsis, resolving. 2. Probable HCAP, resolving. 3. Acute respiratory failure with hypoxia due to PNA vs. pulmonary congestion, resolving. 4. Recent covid-19. Vaccinated. 5. ESRD. 6. Afib with RVR. 7. Sacral stage 2 decubitus wound. Plan: 1. Continue to manage patient off abx as respiratory status is stable on room air. 2. Wound care following sacral decubitus wound. 3. Steroids per pulmonary. 4. From ID standpoint, patient can be discharged when cleared by primary. 5. Dispo: [facility] Miles Nance 04/17/21 0814: Attestations Physician Attestation Reviewed findings plan: I evaluated the pt with DALE Ramos. I confirm the interval history, physical exam, lab results, assessment and plan. My personal evaluation is HCAP and sepsis. Plan: pt completed treatment with antibiotics. Monitor CBC and temperature. Pt can be discharged from ID standpoint. at 1639 at 0814 RPT #: [id number] END OF REPORT [facility] 2021-04-16 11:10:00 [facility] Nephrology Progress Note REPORT#:[id number] REPORT STATUS: Signed DATE:04/16/21 TIME:1110 PATIENT: IRA RAYA UNIT #: [id number] ROOM/BED: [place] [id number] : 53 AGE: 65 SEX: M ATTEND: Mandy Devlin MD ADM AUTHOR: Genaro Gupta MD * ALL edits or amendments must be made on the electronic/computer document * Subjective Chief Complaint: ESRD Comments: Denies SOb Review of Systems Free Text ROS Notes Free Text ROS Notes: 10 points ROS performed and documented in subjective, otherwise negative Objective General VS/I O: Vital Signs: Date Time Temp Pulse Resp B/P B/P Pulse O2 O2 Flow FiO2 Mean Ox Delivery Rate 04/16 0925 94 Room air 04/16 0811 36.7 90 14 104/69 80.6 94 04/16 0424 36.9 87 18 109/73 84.9 95 04/16 0357 83 94 21 04/15 2348 36.5 91 18 106/66 79.3 95 04/15 2216 91 99 21 04/15 1914 36.9 84 16 104/64 77.2 93 04/15 1501 36.6 93 14 107/69 81.4 98 Room air 04/15 1116 36.9 83 14 99/65 76.4 97 Room air Medications Active Meds + DC'd Last 24 Hrs Hydrocortisone Sodium Succinate (Solu-CORTEF) 50 MG Q12H IV Hydrocortisone Sodium Succinate (Solu-CORTEF) 100 MG Q12H IV (DC) Midodrine (PROAMATINE) 10 MG Q8H PO Amiodarone HCl (CORDARONE) 400 MG BID PO (CKD) Sodium Chloride (0.9% Sodium Chloride) 250 ML ONCE ONE IV Allopurinol (ZYLOPRIM) 100 MG BEDTIME PO Cinacalcet (SENSIPAR) 30 MG BEDTIME PO Apixaban (ELIQUIS) 5 MG BID PO Mannitol (MANNITOL 25%) 12.5 GM BOLUS PRN IV Sodium Chloride (0.9% Sodium Chloride) 2,000 ML .Q24H PRN IV Docusate Sodium (COLACE) 100 MG BID PO Senna (SENOKOT) 1 TAB BID PO (CKD) Albumin Human (OPTISON) 3 ML ONCE PRN IV Sevelamer Carbonate (RENVELA) 800 MG C MEALS PO Insulin Human Lispro (HUMALOG) S/SCALE LOW AC HS SUBQ Pantoprazole (PROTONIX) 40 MG DAILY@0600 PO Iopamidol (ISOVUE-370) 100 ML ONCE PRN IV Dextrose/Water (Dextrose 50% W SYRINGE) 50 ML ASDIR PRN IV (CKD) Acetaminophen (TYLENOL) 650 MG Q4H PRN PRN PO Hydrocodone Bitart/Acetaminophen (NORCO 5/325) 1 TAB Q4H PRN PRN PO Ondansetron HCl (ZOFRAN) 4 MG Q6H PRN PRN IV Physical Exam General appearance: awake Head/eyes: PERRL ENT: normal nose Neck: full range of motion, no bruit/NL carotids, no JVD C-Spine clearance: no midline tenderness Cardiovascular: normal heart sounds, no murmur Respiratory: clear to auscultation, no distress Abdomen: non-tender, soft Genitourinary: no gómez Extremities: normal inspection, no edema Musculoskeletal: full range of motion Neuro/GRAIN ELEVATOR MOTOR STARTER: oriented X 3 Results Findings/Data: Laboratory Tests 04/16 1535 1119 Chemistry POC Glucose (70 - 110 mg/dL) 78 89 108 119 H Laboratory Tests 04/16 535 Hematology WBC (3.5 - 11.0 K/mm3) 11.9 H RBC (4.70 - 6.10 M/mm3) 5.02 Hgb (12.3 - 15.9 G/DL) 12.7 Hct (35.8 - 46.7 %) 42.1 MCV (86.3 - 98.9 Fl) 83.9 L MCH (28.9 - 34.4 pg) 25.3 L MCHC (32.1 - 34.5 G/DL) 30.2 L RDW (11.5 - 14.5 SD) 23.2 H Plt Count (150 - 450 K/mm3) 112 L Neut % (Auto) (40 - 76 %) 79.0 H Lymph % (Auto) (20.5 - 51.1 %) 9.0 L Haralson % (Auto) (1.7 - 9.3 %) 10.1 H Eos % (Auto) (0.0 - 6.0 %) 0.1 Baso % (Auto) (0.0 - 2.0 %) 0.1 Neut # (Auto) (1.8 - 7.6 K/mm3) 9.4 H Lymph # (Auto) (0.6 - 3.0 K/mm3) 1.1 Haralson # (Auto) (0.2 - 1.5 K/mm3) 1.2 Eos # (Auto) (0.0 - 0.4 K/mm3) 0.0 Baso # (Auto) (0.0 - 0.2 K/mm3) 0.0 Abs Immat Gran (auto) (0.00 - 0.03 x10 3/uL) 0.20 H Add Manual Diff (CRITERIA DIFF/SCN) NO Immature Gran % (0.0 - 5.0 %) 1.7 Nucleated RBC % (0.0 - 1.0 /100WBC%) 0.5 Platelet Estimate (ADEQUATE THOUSAND) SLIGHTLY DECREASED Plt Morphology Comment NORMAL Polychromasia (NONE ON SCAN) TRACE Hypochromasia (NONE ON SCAN) TRACE Anisocytosis (NONE) 2+ H Microcytosis (NONE ON SCAN) 1+ Macrocytosis (NONE ON SCAN) TRACE Spherocytes (NONE ON SCAN) TRACE Target Cells (NONE ON SCAN) 1+ Stomatocytes (NONE ON SCAN) TRACE Diagnosis, Assessment Plan Free Text A P: 1. end-stage renal disease on hemodialysis. Hemodialysis on Tuesday and Tuesday. Last Hemodialysis 04/14 2. history of hypertension. 3. Recent COVID-19 infection. 4. AFib with RVR. 5. pneumonia. 6. hypercapnic respiratory failure. 7. COPD exacerbation. Recommendations. 04/16: HD today. 04/15: No need for Hd today. 04/14: Having ongoing HD. 04/13: No need for hemodialysis today. 04/12: No need for HD today 04/11: HD today.. 04/10: No need for HD today. Renal diet. 04/09: HD today. 04/08: NO need for HD today. 04/07: Hemodialysis today, fluid removal as tolerated, target 2 L.. Renal restriction once patient is able to tolerate p.o.. Limit fluid to 1 L a day. No need for Epogen Drug dose adjustment to GFR. Avoid use of nephrotoxic medications/NSAIDs. Thank you for the consultation, any question please call [phone] Consultants: cardiology, infectious disease, nephrology, pulmonary at 2034 RPT #: [id number] END OF REPORT [facility] 2021-04-15 15:59:00 [facility] ([facility] Pulmonology Progress Note REPORT#:[id number] REPORT STATUS: Signed DATE:04/15/21 TIME:1559 PATIENT: IRA RAYA UNIT #: [id number] ROOM/BED: [place] [id number] : 53 AGE: 65 SEX: M ATTEND: Mandy Devlin MD ADM AUTHOR: Noé Granado MD * ALL edits or amendments must be made on the electronic/computer document * Subjective Chief Complaint: on room air now Review of Systems ROS Constitutional: Denies: fever, generalized weakness, lethargy. Respiratory: Denies: HWANG (dyspnea on exertion), productive cough (sputum), SOB, wheezing. Cardiovascular: Denies: chest pain, HWANG (dyspnea on exertion). GI: Denies: abdominal pain, nausea, vomiting. Musculoskeletal: Denies: thoracic pain. Heme: Denies: bleeding. Neuro: Denies: headache. Objective General VS/I O: Last Documented: Result Date Time Pulse Ox 98 04/15 1501 B/P 107/69 04/15 1501 B/P Mean 81.4 04/15 1501 O2 Delivery Room air 04/15 1501 Temp 36.6 04/15 1501 Pulse 93 04/15 1501 Resp 14 04/15 1501 FiO2 50 04/15 0743 O2 Flow Rate 4 04/13 0737 24 hour I O ending at 0700: 10/06 0700 10/05 1900 Intake Total 200 50 Output Total 3700 Balance 200 -3650 Intake, Oral 200 50 Number 0 Bowel Movements Number Voids 0 Output, 3700 Hemodialysis PATIENT WEIGHT: Weight (lb): Weight (oz): Weight (kg): 136.400 Medications: Active Meds + DC'd Last 24 Hrs Hydrocortisone Sodium Succinate (Solu-CORTEF) 100 MG Q12H IV Midodrine (PROAMATINE) 10 MG Q8H PO Amiodarone HCl (CORDARONE) 400 MG BID PO (CKD) Norepinephrine Bitartrate (Levophed 16 MG/250 ML NS) 250 ML ASDIR IV (DC ) Sodium Chloride (0.9% Sodium Chloride) 250 ML ONCE ONE IV Allopurinol (ZYLOPRIM) 100 MG BEDTIME PO Cinacalcet (SENSIPAR) 30 MG BEDTIME PO Apixaban (ELIQUIS) 5 MG BID PO Mannitol (MANNITOL 25%) 12.5 GM BOLUS PRN IV Sodium Chloride (0.9% Sodium Chloride) 2,000 ML .Q24H PRN IV Docusate Sodium (COLACE) 100 MG BID PO Senna (SENOKOT) 1 TAB BID PO (CKD) Albumin Human (OPTISON) 3 ML ONCE PRN IV Sevelamer Carbonate (RENVELA) 800 MG C MEALS PO Insulin Human Lispro (HUMALOG) S/SCALE LOW AC HS SUBQ Pantoprazole (PROTONIX) 40 MG DAILY@0600 PO Iopamidol (ISOVUE-370) 100 ML ONCE PRN IV Dextrose/Water (Dextrose 50% W SYRINGE) 50 ML ASDIR PRN IV (CKD) Acetaminophen (TYLENOL) 650 MG Q4H PRN PRN PO Hydrocodone Bitart/Acetaminophen (NORCO 5/325) 1 TAB Q4H PRN PRN PO Ondansetron HCl (ZOFRAN) 4 MG Q6H PRN PRN IV Physical Exam Head/eyes: EOMI ENT: ENT: normal pharynx Neck: normal thyroid Cardiovascular: irregular rhythm, normal heart sounds, normal S1/S2, no murmur, no gallop Respiratory/chest: decreased breath sounds, symmetric expansion, no distress, no tenderness Abdomen: non-tender Genitourinary: no flank pain Extremities: no cyanosis, no edema, no pedal edema Musculoskeletal: no muscle spasm Neuro/GRAIN ELEVATOR MOTOR STARTER: alert Skin: dry, intact Lymphatics: no lymphadenopathy Results Findings/Data: Laboratory Tests 04/15 04/15 04/15 04/14 04/14 1535 1119 0718 2005 1632 Chemistry POC Glucose (70 - 110 mg/dL) 108 119 H 111 H 116 H 114 H Laboratory Tests 04/15 1048 Serology SARS-CoV-2 Ag (Rapid) (Negative) NEGATIVE Diagnosis, Assessment Plan Free Text A P: Impressions: 1. Hypercapnic hypoxic respiratory failure 2. Atrial fibrillation with rapid ventricular response 3, COPD with acute exacerbation 4. Recent Covid infection 5. End-stage renal disease on hemodialysis Plan: Improving pulmonary status on room air continue with I-S Taper hydrocortisone 50 mg 12 hours D/C on flurdrocortisone daily Midodrine start 10 mg TID Continue Eliquis Continue antibiotics Hemodialysis per schedule OK for d/C from pulmonary stand point Consultants: cardiology, infectious disease, nephrology, pulmonary at 1600 RPT #: [id number] END OF REPORT [facility] 2021-04-15 15:52:00 [facility] ([facility]) Infectious Dis. Progress Note REPORT#:[id number] REPORT STATUS: Signed DATE:04/15/21 TIME:1552 PATIENT: IRA RAAY UNIT #: [id number] ROOM/BED: [place] [id number] : 54 AGE: 65 SEX: M ATTEND: Mandy Devlin MD ADM AUTHOR: Bridgett Ramos * ALL edits or amendments must be made on the electronic/computer document * Bridgett Ramos 04/15/21 1552: Subjective Chief Complaint: HCAP HPI: Patient afebrile. Comfortable on room air. Forgetful but oriented to person, place and situation. No new CBC today. Denies dyspnea, orthopnea and reports continued cough. Review of Systems Constitutional: Denies: chills, fatigue, fever. Respiratory: Reports: productive cough (sputum). Denies: HWANG (dyspnea on exertion), hemoptysis. Objective General VS/I O: Last Documented: Result Date Time Pulse Ox 98 04/15 1501 B/P 107/69 04/15 1501 B/P Mean 81.4 04/15 1501 O2 Delivery Room air 04/15 1501 Temp 36.6 04/15 1501 Pulse 93 04/15 1501 Resp 14 04/15 1501 FiO2 50 04/15 0743 O2 Flow Rate 4 04/13 0737 Vital Signs Date Temp Pulse Resp B/P B/P Mean Pulse Ox FiO2 04/14-04/15 36.5-36.9 83-107 14-23 99-137/56-88 73-93 89-100 50 24 hour I O ending at 0700: 04/15 0700 04/14 1900 Intake Total 200 50 Output Total 3700 Balance 200 -3650 Intake, Oral 200 50 Number 0 Bowel Movements Number Voids 0 Output, 3700 Hemodialysis PATIENT WEIGHT: Weight (lb): Weight (oz): Weight (kg): 136.400 Physical Exam General appearance: obese, alert, awake, oriented, no acute distress, pleasant, conversational Head/Eyes: atraumatic, EOMI, normal conjunctiva/sclera, normal eyelids/periorb, normocephalic ENT: moist mucosal membranes, normal dentition, normal nose Respiratory: aerating well, symmetric expansion, no distress Extremities: normal temperature, no clubbing, no contracture, no cyanosis Neuro/GRAIN ELEVATOR MOTOR STARTER: alert, oriented X 3, normal speech Skin: dry, intact, normal color, no rash Psychiatry: unable to evaluate Diagnosis, Assessment Plan Free Text A P: Labs: No new labs today 04/07 MRSA neg Imaging: CTA GGOs, no PE 04/07 CXR b/l infiltrates 04/10, 2 TTE reviewed Assessment: 1. Sepsis, resolving. 2. Probable HCAP, resolving. 3. Acute respiratory failure with hypoxia due to PNA vs. pulmonary congestion, resolving. 4. Recent covid-19. Vaccinated. 5. ESRD. 6. Afib with RVR. 7. Sacral stage 2 decubitus wound. Plan: 1. Manage patient off abx as respiratory status is stable on room air. 2. Staph hominis in blood likely contaminant but will follow closely. 3. Steroids per pulmonary. 4. Nephrology, wound care, pulmonology following. Miles Nance 04/15/21 5682: Attestations Physician Attestation Reviewed findings plan: I evaluated the pt with DALE Ramos. I confirm the interval history, physical exam, lab results, assessment and plan. My personal evaluation is HCAP and recent covid-19. Plan: pt has improved, he completed antibiotics treatment. Monitor temperature and WBC. at 1556 at 2322 RPT #: [id number] END OF REPORT [facility] 2021-04-15 11:41:00 [facility] ([facility]) Hospitalist Progress Note REPORT#:[id number] REPORT STATUS: Signed DATE:04/15/21 TIME:1141 PATIENT: IRA RAYA UNIT #: [id number] ROOM/BED: [place] [id number] : 54 AGE: 65 SEX: M ATTEND: Mandy Devlin MD ADM AUTHOR: Mandy Devlin MD * ALL edits or amendments must be made on the electronic/computer document * Subjective Chief Complaint: NO COMPLAINS, On RA Review of Systems Respiratory: Denies: SOB. Cardiovascular: Denies: chest pain. Objective General VS/I O: Vital Signs: Date Time Temp Pulse Resp B/P B/P Pulse O2 O2 Flow FiO2 Mean Ox Delivery Rate 04/15 1116 36.9 83 14 99/65 76.4 97 Room air 04/15 0827 36.5 88 14 103/70 81.3 96 Room air 04/15 0743 94 95 50 04/15 0743 95 BiPAP 50 04/15 0334 95 96 50 04/15 0303 BiPAP 04/15 0241 36.5 91 18 103/73 82.8 93 Room air 04/15 0000 36.5 BiPAP 04/14 2359 36.5 18 04/14 2330 99 94 50 04/14 2000 36.5 04/14 1918 36.5 18 04/14 1830 97 23 101/56 73 10 1800 101 20 108/56 74 89 04/14 1745 107 20 102/61 74 98 04/14 1715 107 17 122/63 87 97 04/14 1702 36.6 95 15 115/73 Room air 04/14 1700 98 17 137/65 93 92 10/05 1645 92 15 120/69 88 99 10/05 1630 94 15 122/76 91 99 10/05 1601 99 16 109/88 93 100 10/05 1545 100 15 119/73 92 96 10/05 1530 93 14 125/67 90 99 10/05 1516 36.6 17 10/05 1500 94 13 105/68 81 98 10/05 1445 93 15 121/71 87 96 10/05 1430 95 14 115/73 86 96 10/05 1407 109 22 90/50 64 94 10/05 1352 99 17 136/78 96 100 10/05 1348 98 18 86/62 68 99 10/05 1347 97 14 76/51 59 100 10/05 1346 99 19 76/48 57 100 10/05 1330 99 8 111/77 89 99 10/05 1328 98 5 108/74 88 100 10/05 1322 97 14 118/70 88 100 10/05 1320 104 15 76/55 61 99 10/05 1316 106 28 88/57 64 73 10/05 1301 104 5 89/58 67 98 10/05 1300 99 8 99 10/05 1250 115 10/05 1234 104 23 115/62 78 97 10/05 1201 103 0 101/76 85 99 10/05 1145 101 21 106/63 80 99 24 hour I O ending at 0700: 06 0700 10/05 1900 Intake Total 200 50 Output Total 3700 Balance 200 -3650 Intake, Oral 200 50 Number 0 Bowel Movements Number Voids 0 Output, 3700 Hemodialysis PATIENT WEIGHT: Weight (lb): Weight (oz): Weight (kg): 136.400 Physical Exam General appearance: alert, awake Cardiovascular: normal capillary refill, regular rate rhythm Respiratory: decreased breath sounds, no distress Abdomen: obese, non-tender, soft Extremities: moves all, no edema Neuro/GRAIN ELEVATOR MOTOR STARTER: alert (oriented times3), oriented X 3 Psychiatry: normal affect, normal judgment/insight Diagnosis, Assessment Plan Free Text DxA P Notes Free text DxA P notes: DVT prophylaxis- continue home Eliquis 04/08 Acute on chronic hypoxic respiratory failure Recent Covid suspicion for HCAP Infectious disease and pulmonary on board Continue broad-spectrum antibiotics vancomycin and cefepime Follow infectious work-up Oxygenation slowly improving Also get speech therapy evaluation Intermittent BiPAP as per pulmonary Continue with steroids A. fib with RVR Cardiology on board. Currently on amiodarone drip. Continue with Eliquis Echo pending End-stage renal disease on dialysis Continue dialysis as per nephrology There might be some element of fluid overload Altered mental status probably metabolic encephalopathy Do not have baseline mental status but slowly seems to be improving. CT head was negative for any acute changes. History of coronary artery disease Follow-up with cardiology monitor on telemetry History of gout Continue with home medication DVT prophylaxis Patient is full code 04/09 Acute on chronic hypoxic respiratory failure Recent Covid plus element of superimposed bacterial infection with HCAP Infectious disease and pulmonary on board Continue broad-spectrum antibiotics vancomycin and cefepime Follow infectious work-up Oxygenation slowly improving Also get speech therapy evaluation will be going for modified barium swallow Intermittent BiPAP as per pulmonary Continue with steroids A. fib with RVR Cardiology on board. Currently on amiodarone drip. Continue with Eliquis Echo pending Shock Not sure if it is related to sepsis versus just being dialyzed and with amiodarone. Continue pressors titrate to keep map above 65. End-stage renal disease on dialysis Continue dialysis as per nephrology There might be some element of fluid overload. Seems to be improving. Altered mental status probably metabolic encephalopathy Do not have baseline mental status but slowly seems to be improving. CT head was negative for any acute changes. History of coronary artery disease Follow-up with cardiology monitor on telemetry History of gout Continue with home medication DVT prophylaxis Patient is full code Spent 31 minutes of critical care time in evaluating examining reviewing chart and the imaging and management and discussing with the patient and the consultants 04/10 Acute on chronic hypoxic respiratory failure Recent Covid plus element of superimposed bacterial infection with HCAP Infectious disease and pulmonary on board Continue cefepime Follow infectious work-up Oxygenation slowly improving now on 4 L Speech therapy evaluated and start the patient on oral diet Intermittent BiPAP as per pulmonary Continue with steroids A. fib with RVR Cardiology on board. Currently on amiodarone drip. Continue with Eliquis Echo pending Shock Not sure if it is related to sepsis versus just related to dialysis and with amiodarone plus some element of adrenal insufficiency. Continue pressors titrate to keep map above 65. Pulmonary started the patient on stress dose steroids End-stage renal disease on dialysis Continue dialysis as per nephrology There might be some element of fluid overload. Seems to be improving. Altered mental status probably metabolic encephalopathy Do not have baseline mental status but slowly seems to be improving. CT head was negative for any acute changes. History of coronary artery disease Follow-up with cardiology monitor on telemetry History of gout Continue with home medication DVT prophylaxis Patient is full code Spent 31 minutes of critical care time in evaluating examining reviewing chart and the imaging and management and discussing with the patient and the consultants 04/11 Acute on chronic hypoxic respiratory failure Recent Covid plus element of superimposed bacterial infection with HCAP Infectious disease and pulmonary on board Continue cefepime Follow infectious work-up so far negative Oxygenation slowly improving now on 3- 4 L Speech therapy evaluated and start the patient on oral diet Intermittent BiPAP as per pulmonary Continue with steroids A. fib with RVR Cardiology on board. Currently on amiodarone drip. Continue with Eliquis Echo pending Shock Not sure if it is related to sepsis versus just related to dialysis and with amiodarone plus some element of adrenal insufficiency. Continue pressors titrate to keep map above 65. Pulmonary started the patient on stress dose steroids. Pressor requirement coming down. End-stage renal disease on dialysis Continue dialysis as per nephrology There might be some element of fluid overload. Seems to be improving. Altered mental status probably metabolic encephalopathy Do not have baseline mental status but slowly seems to be improving. CT head was negative for any acute changes. History of coronary artery disease Follow-up with cardiology monitor on telemetry History of gout Continue with home medication DVT prophylaxis Patient is full code Spent 31 minutes of critical care time in evaluating examining reviewing chart and the imaging and management and discussing with the patient and the consultants 04/12 Acute on chronic hypoxic respiratory failure Recent Covid plus element of superimposed bacterial infection with HCAP plus some element of fluid overload with end-stage renal disease Infectious disease and pulmonary on board Continue cefepime Follow infectious work-up so far negative Oxygenation slowly improving now on 3- 4 L Speech therapy evaluated and start the patient on oral diet Intermittent BiPAP as per pulmonary Continue with steroids A. fib with RVR Cardiology on board. Rate seems to be improving. Now off of amiodarone drip. Continue with p.o. amiodarone. Continue with Eliquis Echo shows preserved EF Shock resolved Not sure if it is related to sepsis versus just related to dialysis and with amiodarone plus some element of adrenal insufficiency. Continue pressors titrate to keep map above 65. Pulmonary started the patient on stress dose steroids. Off of pressors now End-stage renal disease on dialysis Continue dialysis as per nephrology There might be some element of fluid overload. Seems to be improving. Altered mental status probably metabolic encephalopathy seems to be improving now alert oriented x3. CT head was negative for any acute changes. History of coronary artery disease Follow-up with cardiology monitor on telemetry History of gout Continue with home medication DVT prophylaxis Patient is full code Can be downgraded to telemetry 04/14 Acute on chronic hypoxic respiratory failure Recent Covid plus element of superimposed bacterial infection with HCAP plus some element of fluid overload with end-stage renal disease Infectious disease and pulmonary on board Completed antibiotics Blood culture staph hominis Oxygenation improved, now on room air, hypoxemia resolved Speech therapy evaluated and started the patient on oral diet Continue with steroids A. fib with RVR Cardiology on board. Rate seems to be improving. Now off of amiodarone drip. Continue with p.o. amiodarone. Continue with Eliquis Echo shows preserved EF Shock resolved Not sure if it is related to sepsis versus just related to dialysis and with amiodarone plus some element of adrenal insufficiency. Off pressors. Pulmonary started the patient on stress dose steroids. End-stage renal disease on dialysis Continue dialysis as per nephrology There might be some element of fluid overload. Seems to be improving. Altered mental status probably metabolic encephalopathy seems to be improving now alert oriented x3. CT head was negative for any acute changes. History of coronary artery disease Follow-up with cardiology monitor on telemetry History of gout Continue with home medication Disposition-patient was discharged yesterday however still awaiting placement back to [facility] Will downgrade to telemetry DVT prophylaxis Patient is full code 04/15 Acute on chronic hypoxic respiratory failure Recent Covid plus element of superimposed bacterial infection with HCAP plus some element of fluid overload with end-stage renal disease Infectious disease and pulmonary on board Completed antibiotics Blood culture staph hominis Oxygenation improved, now on room air, hypoxemia resolved Speech therapy evaluated and started the patient on oral diet Continue with steroids A. fib with RVR Cardiology on board. Rate seems to be improving. Now off of amiodarone drip. Continue with p.o. amiodarone. Continue with Eliquis Echo shows preserved EF Shock resolved Not sure if it is related to sepsis versus just related to dialysis and with amiodarone plus some element of adrenal insufficiency. Off pressors. Pulmonary started the patient on stress dose steroids. End-stage renal disease on dialysis Continue dialysis as per nephrology There might be some element of fluid overload. Seems to be improving. Altered mental status probably metabolic encephalopathy seems to be improving now alert oriented x3. CT head was negative for any acute changes. History of coronary artery disease Follow-up with cardiology monitor on telemetry History of gout Continue with home medication Disposition- still awaiting placement back to [facility] as only on steroids now DVT prophylaxis Patient is full code at 1143 RPT #: [id number] END OF REPORT [facility] 2021-04-15 11:11:00 [facility] Nephrology Progress Note REPORT#:[id number] REPORT STATUS: Signed DATE:04/15/21 TIME:1111 PATIENT: IRA RAYA UNIT #: [id number] ROOM/BED: [place] [id number] : 54 AGE: 65 SEX: M ATTEND: Mandy Devlin MD ADM AUTHOR: Genaro Gupta MD * ALL edits or amendments must be made on the electronic/computer document * Subjective Chief Complaint: ESRD Comments: Denies SOB Review of Systems Free Text ROS Notes Free Text ROS Notes: 10 points ROS performed and documented in subjective, otherwise neg Objective General VS/I O: Vital Signs: Date Time Temp Pulse Resp B/P B/P Pulse O2 O2 Flow FiO2 Mean Ox Delivery Rate 04/15 0827 36.5 88 14 103/70 81.3 96 Room air 04/15 0743 94 95 50 04/15 0743 95 BiPAP 50 04/15 0334 95 96 50 04/15 0303 BiPAP 04/15 0241 36.5 91 18 103/73 82.8 93 Room air 04/15 0000 36.5 BiPAP 04/14 2359 36.5 18 04/14 2330 99 94 50 04/14 2000 36.5 04/14 1918 36.5 18 04/14 1830 97 23 101/56 73 04/14 1800 101 20 108/56 74 89 04/14 1745 107 20 102/61 74 98 10/05 1715 107 17 122/63 87 97 10/05 1702 36.6 95 15 115/73 Room air 10/05 1700 98 17 137/65 93 92 10/05 1645 92 15 120/69 88 99 10/05 1630 94 15 122/76 91 99 10/05 1601 99 16 109/88 93 100 10/05 1545 100 15 119/73 92 96 10/05 1530 93 14 125/67 90 99 10/05 1516 36.6 17 10/05 1500 94 13 105/68 81 98 10/05 1445 93 15 121/71 87 96 10/05 1430 95 14 115/73 86 96 10/05 1407 109 22 90/50 64 94 10/05 1352 99 17 136/78 96 100 10/05 1348 98 18 86/62 68 99 10/05 1347 97 14 76/51 59 100 10/05 1346 99 19 76/48 57 100 10/05 1330 99 8 111/77 89 99 10/05 1328 98 5 108/74 88 100 10/05 1322 97 14 118/70 88 100 10/05 1320 104 15 76/55 61 99 10/05 1316 106 28 88/57 64 73 10/05 1301 104 5 89/58 67 98 10/05 1300 99 8 99 10/05 1250 115 10/05 1234 104 23 115/62 78 97 10/05 1201 103 0 101/76 85 99 10/05 1145 101 21 106/63 80 99 10/05 1130 98 18 78/60 65 95 10/05 1115 93 15 106/67 82 100 24 hour I O ending at 0700: 04/15 0700 10 1900 Intake Total 200 50 Output Total 3700 Balance 200 -3650 Intake, Oral 200 50 Number 0 Bowel Movements Number Voids 0 Output, 3700 Hemodialysis Medications Active Meds + DC'd Last 24 Hrs Hydrocortisone Sodium Succinate (Solu-CORTEF) 100 MG Q12H IV Midodrine (PROAMATINE) 10 MG Q8H PO Amiodarone HCl (CORDARONE) 400 MG BID PO (CKD) Norepinephrine Bitartrate (Levophed 16 MG/250 ML NS) 250 ML ASDIR IV (DC ) Sodium Chloride (0.9% Sodium Chloride) 250 ML ONCE ONE IV Allopurinol (ZYLOPRIM) 100 MG BEDTIME PO Cinacalcet (SENSIPAR) 30 MG BEDTIME PO Apixaban (ELIQUIS) 5 MG BID PO Mannitol (MANNITOL 25%) 12.5 GM BOLUS PRN IV Sodium Chloride (0.9% Sodium Chloride) 2,000 ML .Q24H PRN IV Docusate Sodium (COLACE) 100 MG BID PO Senna (SENOKOT) 1 TAB BID PO (CKD) Albumin Human (OPTISON) 3 ML ONCE PRN IV Sevelamer Carbonate (RENVELA) 800 MG C MEALS PO Insulin Human Lispro (HUMALOG) S/SCALE LOW AC HS SUBQ Pantoprazole (PROTONIX) 40 MG DAILY@0600 PO Iopamidol (ISOVUE-370) 100 ML ONCE PRN IV Dextrose/Water (Dextrose 50% W SYRINGE) 50 ML ASDIR PRN IV (CKD) Acetaminophen (TYLENOL) 650 MG Q4H PRN PRN PO Hydrocodone Bitart/Acetaminophen (NORCO 5/325) 1 TAB Q4H PRN PRN PO Ondansetron HCl (ZOFRAN) 4 MG Q6H PRN PRN IV Physical Exam General appearance: awake, oriented Head/eyes: PERRL ENT: normal nose Neck: full range of motion, no bruit/NL carotids, no JVD C-Spine clearance: no midline tenderness Cardiovascular: normal heart sounds, no murmur Respiratory: clear to auscultation, no distress Abdomen: non-tender, soft Genitourinary: no gómez Extremities: normal inspection, no edema Musculoskeletal: full range of motion Neuro/GRAIN ELEVATOR MOTOR STARTER: oriented X 3 Results Findings/Data: Laboratory Tests 04/1518 2005 1632 1132 Chemistry POC Glucose (70 - 110 mg/dL) 111 H 116 H 114 H 124 H Diagnosis, Assessment Plan Free Text A P: 1. end-stage renal disease on hemodialysis. Hemodialysis on Tuesday and Tuesday. Last Hemodialysis 04/14 2. history of hypertension. 3. Recent COVID-19 infection. 4. AFib with RVR. 5. pneumonia. 6. hypercapnic respiratory failure. 7. COPD exacerbation. Recommendations. 04/15: No need for Hd today. 04/14: Having ongoing HD. 04/13: No need for hemodialysis today. 04/12: No need for HD today 04/11: HD today.. 04/10: No need for HD today. Renal diet. 04/09: HD today. 04/08: NO need for HD today. 04/07: Hemodialysis today, fluid removal as tolerated, target 2 L.. Renal restriction once patient is able to tolerate p.o.. Limit fluid to 1 L a day. No need for Epogen Drug dose adjustment to GFR. Avoid use of nephrotoxic medications/NSAIDs. Thank you for the consultation, any question please call [phone] Consultants: cardiology, infectious disease, nephrology, pulmonary Plan discussed with: primary care physician, nurse at 1112 RPT #: [id number] END OF REPORT [facility] 2021-04-14 17:14:00 [facility] ([facility]) Infectious Dis. Progress Note REPORT#:[id number] REPORT STATUS: Signed DATE:04/14/21 TIME:1713 PATIENT: IRA RAYA UNIT #: [id number] ROOM/BED: [place] [id number] : [birth year] AGE: 65 SEX: M ATTEND: Mandy Devlin MD ADM AUTHOR: Bridgett Ramos * ALL edits or amendments must be made on the electronic/computer document * Bridgett Ramos 04/14/211713: Subjective Chief Complaint: HCAP HPI: Patient afebrile. More alert and awake today. Answers questions easily. WBC 8.4 downtrending yesterday. Review of Systems Constitutional: Denies: chills, fatigue, fever. GI: Denies: diarrhea, nausea, vomiting. Objective General VS/I O: Last Documented: Result Date Time B/P 115/73 04/14 1702 O2 Delivery Room air 04/14 1702 Temp 36.6 04/14 170 Pulse 95 04/14 1702 Resp 15 04/14 170 Pulse Ox 95 04/14 1130 B/P Mean 65 04/14 1130 FiO2 50 04/14 0343 O2 Flow Rate 4 04/13 0737 Vital Signs Date Temp Pulse Resp B/P B/P Mean Pulse Ox FiO2 04/13-04/14 36.4-36.6 82-98 6-20 78-153/58-102 65-115 94-100 50 24 hour I O ending at 0700: 04/14 0700 04/13 1900 Intake Total 150 Output Total Balance 150 Intake, Oral 150 PATIENT WEIGHT: Weight (lb): Weight (oz): Weight (kg): 136.400 Physical Exam General appearance: alert, awake, no acute distress, pleasant, conversational Head/Eyes: atraumatic, EOMI, normal conjunctiva/sclera, normal eyelids/periorb, normocephalic ENT: moist mucosal membranes, normal nose Neck: full range of motion, supple/no meningismus, no masses or swelling Respiratory: on oxygen, symmetric expansion, no distress Extremities: normal temperature, no clubbing, no contracture, no cyanosis Neuro/GRAIN ELEVATOR MOTOR STARTER: normal speech, oriented to persom, place, and situation Skin: dry, intact, normal color, no rash Diagnosis, Assessment Plan Free Text A P: Laboratory Tests 04/13/21 0415: [Embedded Image Not Available] 04/07 MRSA neg Imaging: CTA GGOs, no PE 04/07 CXR b/l infiltrates 04/10, 2 TTE reviewed Assessment: 1. Sepsis, resolving. 2. Probable HCAP, resolving. 3. Acute respiratory failure with hypoxia due to PNA vs. pulmonary congestion. 4. Recent covid-19. Vaccinated. 5. ESRD. 6. Afib with RVR. 7. Sacral stage 2 decubitus wound. Plan: 1. Manage patient off abx for now as respiratory status is stable on room air. 2. Staph hominis in blood likely contaminant but will follow closely. 3. Steroids per pulmonary. 4. Nephrology, wound care, pulmonology following. Miles Nance 04/15/21 1543: Attestations Physician Attestation Reviewed findings plan: I evaluated the pt with DALE Ramos. I confirm the interval history, physical exam, lab results, assessment and plan. My personal evaluation is HCAP, resolved. Plan: monitor WBC and without antibiotics. at [id number] at 1540 RPT #: [id number] END OF REPORT [facility] 2021-04-14 16:44:00 [facility] ([facility]) Wound Care Progress Note REPORT#:[id number] REPORT STATUS: Signed DATE:04/14/21 TIME:1643 PATIENT: IRA RAYA UNIT #: [id number] ROOM/BED: [place] [address] : 54 AGE: 65 SEX: M ATTEND: Mnady Devlin MD ADM AUTHOR: Barbara Christensen * ALL edits or amendments must be made on the electronic/computer document * Subjective Chief Complaint: Patient seen and examined at [facility], no acute events. Objective General VS: Last Documented: Result Date Time Temp 36.6 04/14 1516 Resp 17 04/14 1516 Pulse Ox 95 04/14 1130 B/P 78/60 04/14 1130 B/P Mean 65 04/14 1130 Pulse 98 04/14 1130 O2 Delivery Room air 04/14 1040 FiO2 50 04/14 0343 O2 Flow Rate 4 04/13 0737 PATIENT WEIGHT: Weight (lb): Weight (oz): Weight (kg): 136.400 Medications: Active Meds + DC'd Last 24 Hrs Hydrocortisone Sodium Succinate (Solu-CORTEF) 100 MG Q12H IV Midodrine (PROAMATINE) 10 MG Q8H PO Amiodarone HCl (CORDARONE) 400 MG BID PO (CKD) Mupirocin (BACTROBAN NASAL-ADULT ICU/JAYLAN MRSA PATIENTS) 1 APPLIC BID NASAL (DC) Norepinephrine Bitartrate (Levophed 16 MG/250 ML NS) 250 ML ASDIR IV (DC ) Sodium Chloride (0.9% Sodium Chloride) 250 ML ONCE ONE IV Allopurinol (ZYLOPRIM) 100 MG BEDTIME PO Cinacalcet (SENSIPAR) 30 MG BEDTIME PO Apixaban (ELIQUIS) 5 MG BID PO Mannitol (MANNITOL 25%) 12.5 GM BOLUS PRN IV Sodium Chloride (0.9% Sodium Chloride) 2,000 ML .Q24H PRN IV Docusate Sodium (COLACE) 100 MG BID PO Senna (SENOKOT) 1 TAB BID PO (CKD) Albumin Human (OPTISON) 3 ML ONCE PRN IV Sevelamer Carbonate (RENVELA) 800 MG C MEALS PO Insulin Human Lispro (HUMALOG) S/SCALE LOW AC HS SUBQ Pantoprazole (PROTONIX) 40 MG DAILY@0600 PO Iopamidol (ISOVUE-370) 100 ML ONCE PRN IV Dextrose/Water (Dextrose 50% W SYRINGE) 50 ML ASDIR PRN IV (CKD) Acetaminophen (TYLENOL) 650 MG Q4H PRN PRN PO Cefepime HCl (MAXIPIME) 1 GM Q24H IV (DC) Sterile Water (WATER FOR INJECTION) 10 ML Hydrocodone Bitart/Acetaminophen (NORCO 5/325) 1 TAB Q4H PRN PRN PO Ondansetron HCl (ZOFRAN) 4 MG Q6H PRN PRN IV Nutrition assessment: The data set between the solid lines has been imported from the dietitian's assessment. Any exceptions have been noted under Provider comments. BMI Calculated: 40.8 Nutrition related diagnosis: Nutrition diagnosis details: Nutrition problem: Altered GI function Nutrition etiology: Swallowing difficulty Nutrition signs and symptoms: NPO; awaiting speech eval Nutrition prescription: Recommend diet per speech pathology recommendation. Recommend Nepro BID to assist in meeting nutritional needs as patient's PO is inadequate. Dietitian name: Lilia Pereyra, DIET Assessment completed: 04/12/21 Provider comments on imported dietitian assessment: Physical Exam General appearance: obese, alert, awake, oriented Head/eyes: atraumatic, clear cornea ENT: moist mucosal membranes, normal dentition Neck: left central line Cardiovascular: normal heart sounds, regular rate rhythm Respiratory: no distress, symmetric expansion Abdomen: non-tender, normal bowel sounds, no distention Wound Assessment Wound Assessment 1: Type/cause: pressure Wound location: sacral region Tissue layers: limited to skin breakdown Site condition: granulating Length (cm): 1.3 Width (cm): 0.5 Diagnosis, Assessment Plan Hosptial course to date: Assessment/plan sacral stage 2 decubitus wound wound is clean and dry with no clinical signs of infection. Wound care: apply barrier cream to area daily or PRN if sopiled or removed. Avoid direct pressure over area, recommend air mattress. Offload with wedge pillow. right groin skin tear apply barrier cream, use caution when changing patient. COVID 19 respiratory failure continue O2 supplementation. Wean as tolerated. ESRD on HD, leucocytosis, transaminitis -medical management per primary team -continue to monitor CBC and BMP Plan of care discussed with Dr. Merritt Thank you for consultation. at 1645 RPT #: [id number] END OF REPORT [facility] 2021-04-14 16:29:00 [facility] ([facility]) Hospitalist Progress Note REPORT#:[id number] REPORT STATUS: Signed DATE:04/14/21 TIME:1629 PATIENT: IRA RAYA UNIT #: [id number] ROOM/BED: [place] [address] : 53 AGE: 65 SEX: M ATTEND: Mandy Devlin MD ADM AUTHOR: Mandy Devlin MD * ALL edits or amendments must be made on the electronic/computer document * Subjective Chief Complaint: NO COMPLAINS, On RA Review of Systems Respiratory: Denies: SOB. Cardiovascular: Denies: chest pain. GI: Denies: nausea, vomiting. Objective General VS/I O: Vital Signs: Date Time Temp Pulse Resp B/P B/P Pulse O2 O2 Flow FiO2 Mean Ox Delivery Rate 04/14 1516 36.6 17 04/14 1130 98 18 78/60 65 95 04/14 1115 93 15 106/67 82 100 04/14 1109 36.5 04/14 1100 92 16 124/69 84 99 04/14 1045 91 15 120/58 83 94 04/14 1040 36.5 86 18 124/64 100 Room air 04/14 1030 84 6 128/64 87 100 10/ 1025 86 11 117/73 89 97 10/ 1015 87 12 111/78 90 100 10/ 1000 86 10 127/78 95 99 10/ 0949 87 124/64 86 99 10/ 0947 91 9 125/76 95 99 10/ 0936 98 Room air 04/14 0801 84 13 125/66 89 98 10/ 0703 36.5 10 0420 36.5 18 10/ 0401 82 14 118/69 89 100 10 0343 85 100 50 10 0330 BiPAP 04/14 0133 88 14 145/74 100 100 10/ 0001 87 15 153/71 104 100 10 0000 BiPAP 04/14 0000 85 15 100 04/13 2353 36.4 20 10 2330 95 99 50 04/13 2201 86 16 138/102 115 98 10 2200 88 17 99 10 2100 88 17 97 10 2000 89 15 106/64 80 99 10 1941 36.6 90 20 117/82 93.8 96 Room air 04/13 1914 Room air 04/13 1900 84 16 100 10 1800 91 16 119/73 89 99 24 hour I O ending at 0700: 04/14 0700 04/13 1900 Intake Total 150 Output Total Balance 150 Intake, Oral 150 PATIENT WEIGHT: Weight (lb): Weight (oz): Weight (kg): 136.400 Physical Exam General appearance: alert, awake Neck: supple/no meningismus, no JVD Respiratory: decreased breath sounds, no distress Abdomen: obese, non-tender, soft Extremities: moves all, no edema Neuro/GRAIN ELEVATOR MOTOR STARTER: alert (oriented times3), oriented X 3 Diagnosis, Assessment Plan Free Text DxA P Notes Free text DxA P notes: DVT prophylaxis- continue home Eliquis 04/08 Acute on chronic hypoxic respiratory failure Recent Covid suspicion for HCAP Infectious disease and pulmonary on board Continue broad-spectrum antibiotics vancomycin and cefepime Follow infectious work-up Oxygenation slowly improving Also get speech therapy evaluation Intermittent BiPAP as per pulmonary Continue with steroids A. fib with RVR Cardiology on board. Currently on amiodarone drip. Continue with Eliquis Echo pending End-stage renal disease on dialysis Continue dialysis as per nephrology There might be some element of fluid overload Altered mental status probably metabolic encephalopathy Do not have baseline mental status but slowly seems to be improving. CT head was negative for any acute changes. History of coronary artery disease Follow-up with cardiology monitor on telemetry History of gout Continue with home medication DVT prophylaxis Patient is full code 04/09 Acute on chronic hypoxic respiratory failure Recent Covid plus element of superimposed bacterial infection with HCAP Infectious disease and pulmonary on board Continue broad-spectrum antibiotics vancomycin and cefepime Follow infectious work-up Oxygenation slowly improving Also get speech therapy evaluation will be going for modified barium swallow Intermittent BiPAP as per pulmonary Continue with steroids A. fib with RVR Cardiology on board. Currently on amiodarone drip. Continue with Eliquis Echo pending Shock Not sure if it is related to sepsis versus just being dialyzed and with amiodarone. Continue pressors titrate to keep map above 65. End-stage renal disease on dialysis Continue dialysis as per nephrology There might be some element of fluid overload. Seems to be improving. Altered mental status probably metabolic encephalopathy Do not have baseline mental status but slowly seems to be improving. CT head was negative for any acute changes. History of coronary artery disease Follow-up with cardiology monitor on telemetry History of gout Continue with home medication DVT prophylaxis Patient is full code Spent 31 minutes of critical care time in evaluating examining reviewing chart and the imaging and management and discussing with the patient and the consultants 04/10 Acute on chronic hypoxic respiratory failure Recent Covid plus element of superimposed bacterial infection with HCAP Infectious disease and pulmonary on board Continue cefepime Follow infectious work-up Oxygenation slowly improving now on 4 L Speech therapy evaluated and start the patient on oral diet Intermittent BiPAP as per pulmonary Continue with steroids A. fib with RVR Cardiology on board. Currently on amiodarone drip. Continue with Eliquis Echo pending Shock Not sure if it is related to sepsis versus just related to dialysis and with amiodarone plus some element of adrenal insufficiency. Continue pressors titrate to keep map above 65. Pulmonary started the patient on stress dose steroids End-stage renal disease on dialysis Continue dialysis as per nephrology There might be some element of fluid overload. Seems to be improving. Altered mental status probably metabolic encephalopathy Do not have baseline mental status but slowly seems to be improving. CT head was negative for any acute changes. History of coronary artery disease Follow-up with cardiology monitor on telemetry History of gout Continue with home medication DVT prophylaxis Patient is full code Spent 31 minutes of critical care time in evaluating examining reviewing chart and the imaging and management and discussing with the patient and the consultants 04/11 Acute on chronic hypoxic respiratory failure Recent Covid plus element of superimposed bacterial infection with HCAP Infectious disease and pulmonary on board Continue cefepime Follow infectious work-up so far negative Oxygenation slowly improving now on 3- 4 L Speech therapy evaluated and start the patient on oral diet Intermittent BiPAP as per pulmonary Continue with steroids A. fib with RVR Cardiology on board. Currently on amiodarone drip. Continue with Eliquis Echo pending Shock Not sure if it is related to sepsis versus just related to dialysis and with amiodarone plus some element of adrenal insufficiency. Continue pressors titrate to keep map above 65. Pulmonary started the patient on stress dose steroids. Pressor requirement coming down. End-stage renal disease on dialysis Continue dialysis as per nephrology There might be some element of fluid overload. Seems to be improving. Altered mental status probably metabolic encephalopathy Do not have baseline mental status but slowly seems to be improving. CT head was negative for any acute changes. History of coronary artery disease Follow-up with cardiology monitor on telemetry History of gout Continue with home medication DVT prophylaxis Patient is full code Spent 31 minutes of critical care time in evaluating examining reviewing chart and the imaging and management and discussing with the patient and the consultants 04/12 Acute on chronic hypoxic respiratory failure Recent Covid plus element of superimposed bacterial infection with HCAP plus some element of fluid overload with end-stage renal disease Infectious disease and pulmonary on board Continue cefepime Follow infectious work-up so far negative Oxygenation slowly improving now on 3- 4 L Speech therapy evaluated and start the patient on oral diet Intermittent BiPAP as per pulmonary Continue with steroids A. fib with RVR Cardiology on board. Rate seems to be improving. Now off of amiodarone drip. Continue with p.o. amiodarone. Continue with Eliquis Echo shows preserved EF Shock resolved Not sure if it is related to sepsis versus just related to dialysis and with amiodarone plus some element of adrenal insufficiency. Continue pressors titrate to keep map above 65. Pulmonary started the patient on stress dose steroids. Off of pressors now End-stage renal disease on dialysis Continue dialysis as per nephrology There might be some element of fluid overload. Seems to be improving. Altered mental status probably metabolic encephalopathy seems to be improving now alert oriented x3. CT head was negative for any acute changes. History of coronary artery disease Follow-up with cardiology monitor on telemetry History of gout Continue with home medication DVT prophylaxis Patient is full code Can be downgraded to telemetry 04/14 Acute on chronic hypoxic respiratory failure Recent Covid plus element of superimposed bacterial infection with HCAP plus some element of fluid overload with end-stage renal disease Infectious disease and pulmonary on board Completed antibiotics Blood culture staph hominis Oxygenation improved, now on room air, hypoxemia resolved Speech therapy evaluated and started the patient on oral diet Continue with steroids A. fib with RVR Cardiology on board. Rate seems to be improving. Now off of amiodarone drip. Continue with p.o. amiodarone. Continue with Eliquis Echo shows preserved EF Shock resolved Not sure if it is related to sepsis versus just related to dialysis and with amiodarone plus some element of adrenal insufficiency. Off pressors. Pulmonary started the patient on stress dose steroids. End-stage renal disease on dialysis Continue dialysis as per nephrology There might be some element of fluid overload. Seems to be improving. Altered mental status probably metabolic encephalopathy seems to be improving now alert oriented x3. CT head was negative for any acute changes. History of coronary artery disease Follow-up with cardiology monitor on telemetry History of gout Continue with home medication Disposition-patient was discharged yesterday however still awaiting placement back to [facility] Will downgrade to telemetry DVT prophylaxis Patient is full code at 1634 RPT #: [id number] END OF REPORT [facility] 2021-04-14 14:15:00 [facility] ([facility]) Nephrology Progress Note REPORT#:[id number] REPORT STATUS: Signed DATE:04/14/21 TIME:1415 PATIENT: IRA RAYA UNIT #: [id number] ROOM/BED: [facility] : 54 AGE: 65 SEX: M ATTEND: Mandy Devlin MD ADM AUTHOR: Genaro Gupta MD * ALL edits or amendments must be made on the electronic/computer document * Subjective Chief Complaint: ESRD Comments: Denies SOB.. Having HD Review of Systems Free Text ROS Notes Free Text ROS Notes: 10 points ROS performed and documented in subjective, otherwise negative. Objective General VS/I O: Vital Signs: Date Time Temp Pulse Resp B/P B/P Pulse O2 O2 Flow FiO2 Mean Ox Delivery Rate 04/14 1130 98 18 78/60 65 95 10/ 1115 93 15 106/67 82 100 10/ 1109 36.5 10/ 1100 92 16 124/69 84 99 10/ 1045 91 15 120/58 83 94 10/ 1040 36.5 86 18 124/64 100 Room air 10/ 1030 84 6 128/64 87 100 10/ 1025 86 11 117/73 89 97 10/ 1015 87 12 111/78 90 100 10/ 1000 86 10 127/78 95 99 10/ 0949 87 124/64 86 99 10/ 0947 91 9 125/76 95 99 10/ 0936 98 Room air 04/14 0801 84 13 125/66 89 98 10/ 0703 36.5 10/ 0420 36.5 18 10/ 0401 82 14 118/69 89 100 10/ 0343 85 100 50 10/ 0330 BiPAP 04/14 0133 88 14 145/74 100 100 10/05 0001 87 15 153/71 104 100 10/05 0000 BiPAP 04/14 0000 85 15 100 10 2353 36.4 20 04/13 2330 95 99 50 04/13 2201 86 16 138/102 115 98 04/13 2200 88 17 99 10 2100 88 17 97 10 2000 89 15 106/64 80 99 10 1941 36.6 90 20 117/82 93.8 96 Room air 04/13 1914 Room air 04/13 1900 84 16 100 04/13 1800 91 16 119/73 89 99 04/13 1600 36.7 Room air 04/13 1600 95 16 108/58 80 100 04/13 1546 92 17 111/59 80 100 24 hour I O ending at 0700: 04/14 0700 04/13 1900 Intake Total 150 Output Total Balance 150 Intake, Oral 150 Medications Active Meds + DC'd Last 24 Hrs Hydrocortisone Sodium Succinate (Solu-CORTEF) 100 MG Q12H IV Midodrine (PROAMATINE) 10 MG Q8H PO Amiodarone HCl (CORDARONE) 400 MG BID PO (CKD) Albumin Human (Albumin 25%) 25 GM ASDIR PRN IV (DC) Mupirocin (BACTROBAN NASAL-ADULT ICU/JAYLAN MRSA PATIENTS) 1 APPLIC BID NASAL (DC) Norepinephrine Bitartrate (Levophed 16 MG/250 ML NS) 250 ML ASDIR IV Sodium Chloride (0.9% Sodium Chloride) 250 ML ONCE ONE IV Allopurinol (ZYLOPRIM) 100 MG BEDTIME PO Cinacalcet (SENSIPAR) 30 MG BEDTIME PO Apixaban (ELIQUIS) 5 MG BID PO Mannitol (MANNITOL 25%) 12.5 GM BOLUS PRN IV Sodium Chloride (0.9% Sodium Chloride) 2,000 ML .Q24H PRN IV Docusate Sodium (COLACE) 100 MG BID PO Senna (SENOKOT) 1 TAB BID PO (CKD) Albumin Human (OPTISON) 3 ML ONCE PRN IV Sevelamer Carbonate (RENVELA) 800 MG C MEALS PO Insulin Human Lispro (HUMALOG) S/SCALE LOW AC HS SUBQ Pantoprazole (PROTONIX) 40 MG DAILY@0600 PO Iopamidol (ISOVUE-370) 100 ML ONCE PRN IV Dextrose/Water (Dextrose 50% W SYRINGE) 50 ML ASDIR PRN IV (CKD) Acetaminophen (TYLENOL) 650 MG Q4H PRN PRN PO Cefepime HCl (MAXIPIME) 1 GM Q24H IV (DC) Sterile Water (WATER FOR INJECTION) 10 ML Hydrocodone Bitart/Acetaminophen (NORCO 5/325) 1 TAB Q4H PRN PRN PO Ondansetron HCl (ZOFRAN) 4 MG Q6H PRN PRN IV Physical Exam General appearance: awake, oriented Head/eyes: PERRL ENT: normal nose Neck: full range of motion, no bruit/NL carotids, no JVD C-Spine clearance: no midline tenderness Cardiovascular: normal heart sounds, no murmur Respiratory: clear to auscultation, no distress Abdomen: non-tender, soft Genitourinary: no gómez Extremities: normal inspection, no edema Musculoskeletal: full range of motion Neuro/GRAIN ELEVATOR MOTOR STARTER: oriented X 3 Results Findings/Data: Laboratory Tests 04/14 04/14 04/13 04/13 1132 8836 2130 5645 Chemistry POC Glucose (70 - 110 mg/dL) 124 H 99 102 138 H Diagnosis, Assessment Plan Free Text A P: 1. end-stage renal disease on hemodialysis. Hemodialysis on Tuesday and Tuesday. Last Hemodialysis 04/14 2. history of hypertension. 3. Recent COVID-19 infection. 4. AFib with RVR. 5. pneumonia. 6. hypercapnic respiratory failure. 7. COPD exacerbation. Recommendations. 04/14: Having ongoing HD. 04/13: No need for hemodialysis today. 04/12: No need for HD today 04/11: HD today.. 04/10: No need for HD today. Renal diet. 04/09: HD today. 04/08: NO need for HD today. 04/07: Hemodialysis today, fluid removal as tolerated, target 2 L.. Renal restriction once patient is able to tolerate p.o.. Limit fluid to 1 L a day. No need for Epogen Drug dose adjustment to GFR. Avoid use of nephrotoxic medications/NSAIDs. Thank you for the consultation, any question please call [phone] Consultants: cardiology, infectious disease, nephrology, pulmonary at 1416 RPT #: [id number] END OF REPORT [facility] 2021-04-14 11:52:00 [facility] ([facility]) Pulmonology Progress Note REPORT#:[id number] REPORT STATUS: Signed DATE:04/14/21 TIME:1152 PATIENT: IRA RAYA UNIT #: [id number] ROOM/BED: [place] [address] : 53 AGE: 65 SEX: M ATTEND: Mandy Devlin MD ADM AUTHOR: Noé Granado MD * ALL edits or amendments must be made on the electronic/computer document * Subjective Chief Complaint: patient is awake , no distress on room air now Objective General VS/I O: Last Documented: Result Date Time Pulse Ox 95 04/14 1130 B/P 78/60 04/14 1130 B/P Mean 65 04/14 1130 Pulse 98 04/14 1130 Resp 18 04/14 1130 Temp 36.5 04/14 1109 O2 Delivery Room air 04/14 1040 FiO2 50 04/14 0343 O2 Flow Rate 4 04/13 0737 24 hour I O ending at 0700: 04/14 0700 04/13 1900 Intake Total 150 Output Total Balance 150 Intake, Oral 150 PATIENT WEIGHT: Weight (lb): Weight (oz): Weight (kg): 136.400 Medications: Active Meds + DC'd Last 24 Hrs Hydrocortisone Sodium Succinate (Solu-CORTEF) 100 MG Q12H IV Midodrine (PROAMATINE) 10 MG Q8H PO Amiodarone HCl (CORDARONE) 400 MG BID PO (CKD) Albumin Human (Albumin 25%) 25 GM ASDIR PRN IV (DC) Mupirocin (BACTROBAN NASAL-ADULT ICU/JAYLAN MRSA PATIENTS) 1 APPLIC BID NASAL (DC) Norepinephrine Bitartrate (Levophed 16 MG/250 ML NS) 250 ML ASDIR IV Sodium Chloride (0.9% Sodium Chloride) 250 ML ONCE ONE IV Allopurinol (ZYLOPRIM) 100 MG BEDTIME PO Cinacalcet (SENSIPAR) 30 MG BEDTIME PO Apixaban (ELIQUIS) 5 MG BID PO Mannitol (MANNITOL 25%) 12.5 GM BOLUS PRN IV Sodium Chloride (0.9% Sodium Chloride) 2,000 ML .Q24H PRN IV Docusate Sodium (COLACE) 100 MG BID PO Senna (SENOKOT) 1 TAB BID PO (CKD) Albumin Human (OPTISON) 3 ML ONCE PRN IV Sevelamer Carbonate (RENVELA) 800 MG C MEALS PO Insulin Human Lispro (HUMALOG) S/SCALE LOW AC HS SUBQ Pantoprazole (PROTONIX) 40 MG DAILY@0600 PO Iopamidol (ISOVUE-370) 100 ML ONCE PRN IV Dextrose/Water (Dextrose 50% W SYRINGE) 50 ML ASDIR PRN IV (CKD) Acetaminophen (TYLENOL) 650 MG Q4H PRN PRN PO Cefepime HCl (MAXIPIME) 1 GM Q24H IV (DC) Sterile Water (WATER FOR INJECTION) 10 ML Hydrocodone Bitart/Acetaminophen (NORCO 5/325) 1 TAB Q4H PRN PRN PO Ondansetron HCl (ZOFRAN) 4 MG Q6H PRN PRN IV Physical Exam Head/eyes: EOMI ENT: ENT: normal pharynx Neck: normal thyroid Cardiovascular: irregular rhythm, normal heart sounds, normal S1/S2, no murmur, no gallop Respiratory/chest: decreased breath sounds, symmetric expansion, no distress, no tenderness Abdomen: non-tender Genitourinary: no flank pain Extremities: no cyanosis, no edema, no pedal edema Musculoskeletal: no muscle spasm Neuro/GRAIN ELEVATOR MOTOR STARTER: alert Skin: dry, intact Lymphatics: no lymphadenopathy Results Findings/Data: Laboratory Tests 04/14 04/14 04/13 04/13 1132 0736 2130 1557 Chemistry POC Glucose (70 - 110 mg/dL) 124 H 99 102 138 H Diagnosis, Assessment Plan Free Text A P: Impressions: 1. Hypercapnic hypoxic respiratory failure 2. Atrial fibrillation with rapid ventricular response 3, COPD with acute exacerbation 4. Recent Covid infection 5. End-stage renal disease on hemodialysis Plan: Improving pulmonary status on room air continue with I-S Taper hydrocortisone 100 mg 12 hours D/C on flurdrocortisone daily Midodrine start 10 mg TID Continue Eliquis Continue antibiotics Hemodialysis per schedule OK for d/C from pulmonary stand point DVT prophylaxis Full code Consultants: cardiology, infectious disease, nephrology, pulmonary at 1153 RPT #: [id number] END OF REPORT [facility] 2021-04-13 21:14:00 [facility] ([facility]) Nephrology Progress Note REPORT#:[id number] REPORT STATUS: Signed DATE:04/13/21 TIME:2113 PATIENT: IRA RAYA UNIT #: [id number] ROOM/BED: [place] [address] : 54 AGE: 65 SEX: M ATTEND: Mandy Devlin MD ADM AUTHOR: Genaro Gupta MD * ALL edits or amendments must be made on the electronic/computer document * Subjective Chief Complaint: ESRD Comments: Denies SOB. Review of Systems Free Text ROS Notes Free Text ROS Notes: 10 point review of system performed documented in subjective, otherwise negative. Objective General VS/I O: Vital Signs: Date Time Temp Pulse Resp B/P B/P Pulse O2 O2 Flow FiO2 Mean Ox Delivery Rate 04/13 1941 36.6 90 20 117/82 93.8 96 Room air 10 1800 91 16 119/73 89 99 10 1600 36.7 Room air 04/13 1600 95 16 108/58 80 100 10/ 1546 92 17 111/59 80 100 10/ 1200 36.3 Room air 04/13 1106 96 17 132/69 89 98 10 1049 90 16 105/71 83 97 10 1040 90 15 92/65 75 97 10/ 1020 92 13 93/59 70 97 10/ 1000 91 14 101/65 76 98 10/ 0940 89 17 99/63 74 96 10/ 0920 90 16 108/70 84 96 10/ 0900 93 16 100/61 75 93 10/ 0840 90 14 119/66 84 96 10/ 0820 89 13 122/69 90 95 10/ 0800 Nasal cannula 04/13 0800 88 14 93/51 67 97 10 0740 84 13 92/53 67 97 10 0737 36.9 Nasal 4 cannula 04/13 0730 100 Room air 2 21 04/13 0720 87 25 84/53 63 98 10/ 0700 90 18 94/64 75 98 10/ 0600 111/73 88 10 0559 92 15 97 10 0420 93 14 114/74 88 98 10/ 0417 36.4 10 0400 92 15 99/69 77 99 10/ 0321 92 14 114/55 79 100 04/13 0310 95 20 110/58 78 100 10 0305 91 99 50 10 0226 101 12 106/74 79 96 10 0200 91 15 94/50 67 98 10 0024 35.9 10 0000 94 14 91/66 75 100 04/12 2330 90 95 50 04/120 94 17 108/58 76 93 04/120 95 17 95 04/120 95 17 104/57 74 95 24 hour I O ending at 0700: 04/13 0700 04/12 1900 Intake Total 130 640 Output Total Balance 130 640 Intake, Oral 130 640 Medications Active Meds + DC'd Last 24 Hrs Hydrocortisone Sodium Succinate (Solu-CORTEF) 100 MG Q12H IV Midodrine (PROAMATINE) 10 MG Q8H PO Amiodarone HCl (CORDARONE) 400 MG BID PO (CKD) Albumin Human (Albumin 25%) 25 GM ASDIR PRN IV (DC) Hydrocortisone Sodium Succinate (Solu-CORTEF) 100 MG Q8HR IV (DC) Mupirocin (BACTROBAN NASAL-ADULT ICU/JAYLAN MRSA PATIENTS) 1 APPLIC BID NASAL (DC) Norepinephrine Bitartrate (Levophed 16 MG/250 ML NS) 250 ML ASDIR IV Sodium Chloride (0.9% Sodium Chloride) 250 ML ONCE ONE IV Allopurinol (ZYLOPRIM) 100 MG BEDTIME PO Cinacalcet (SENSIPAR) 30 MG BEDTIME PO Apixaban (ELIQUIS) 5 MG BID PO Mannitol (MANNITOL 25%) 12.5 GM BOLUS PRN IV Sodium Chloride (0.9% Sodium Chloride) 2,000 ML .Q24H PRN IV Docusate Sodium (COLACE) 100 MG BID PO Senna (SENOKOT) 1 TAB BID PO (CKD) Albumin Human (OPTISON) 3 ML ONCE PRN IV Sevelamer Carbonate (RENVELA) 800 MG C MEALS PO Insulin Human Lispro (HUMALOG) S/SCALE LOW AC HS SUBQ Pantoprazole (PROTONIX) 40 MG DAILY@0600 PO Iopamidol (ISOVUE-370) 100 ML ONCE PRN IV Dextrose/Water (Dextrose 50% W SYRINGE) 50 ML ASDIR PRN IV (CKD) Acetaminophen (TYLENOL) 650 MG Q4H PRN PRN PO Cefepime HCl (MAXIPIME) 1 GM Q24H IV Sterile Water (WATER FOR INJECTION) 10 ML Hydrocodone Bitart/Acetaminophen (NORCO 5/325) 1 TAB Q4H PRN PRN PO Ondansetron HCl (ZOFRAN) 4 MG Q6H PRN PRN IV Physical Exam General appearance: awake, oriented Head/eyes: PERRL ENT: normal nose Neck: full range of motion, no bruit/NL carotids, no JVD C-Spine clearance: no midline tenderness Cardiovascular: normal heart sounds, no murmur Respiratory: clear to auscultation, no distress Abdomen: non-tender, soft Genitourinary: no gómez Extremities: normal inspection, no edema Musculoskeletal: full range of motion Neuro/GRAIN ELEVATOR MOTOR STARTER: oriented X 3 Results Findings/Data: Laboratory Tests 04/13 04/13 04/13 04/13 0317 1147 0722 0415 Chemistry Sodium (134 - 147 mmol/L) 134 Potassium (3.4 - 5.0 mmol/L) 3.9 Chloride (100 - 108 mmol/L) 99 L Carbon Dioxide (21 - 32 mmol/L) 25 Anion Gap (4.0 - 15.0 GAP calc) 10.0 BUN (7 - 18 MG/DL) 37 H Creatinine (0.8 - 1.3 MG/DL) 6.9 H Glomerular Filtr Rate (>60 estGFR) 10 L Glucose (70 - 110 MG/DL) 113 H POC Glucose (70 - 110 mg/dL) 138 H 121 H 112 H Calcium (8.5 - 10.1 MG/DL) 9.3 Laboratory Tests 04/13 1221 Hematology WBC (3.5 - 11.0 K/mm3) 8.6 RBC (4.70 - 6.10 M/mm3) 4.80 Hgb (12.3 - 15.9 G/DL) 12.1 L Hct (35.8 - 46.7 %) 40.3 MCV (86.3 - 98.9 Fl) 84.0 L MCH (28.9 - 34.4 pg) 25.2 L MCHC (32.1 - 34.5 G/DL) 30.0 L RDW (11.5 - 14.5 SD) 21.1 H Plt Count (150 - 450 K/mm3) 115 L Neut % (Auto) (40 - 76 %) 86.1 H Lymph % (Auto) (20.5 - 51.1 %) 5.7 L Haralson % (Auto) (1.7 - 9.3 %) 6.7 Eos % (Auto) (0.0 - 6.0 %) 0.0 Baso % (Auto) (0.0 - 2.0 %) 0.1 Neut # (Auto) (1.8 - 7.6 K/mm3) 7.4 Lymph # (Auto) (0.6 - 3.0 K/mm3) 0.5 L Haralson # (Auto) (0.2 - 1.5 K/mm3) 0.6 Eos # (Auto) (0.0 - 0.4 K/mm3) 0.0 Baso # (Auto) (0.0 - 0.2 K/mm3) 0.0 Abs Immat Gran (auto) (0.00 - 0.03 x10 3/uL) 0.12 H Add Manual Diff (CRITERIA DIFF/SCN) NO Immature Gran % (0.0 - 5.0 %) 1.4 Nucleated RBC % (0.0 - 1.0 /100WBC%) 1.3 H Diagnosis, Assessment Plan Free Text A P: 1. end-stage renal disease on hemodialysis. Hemodialysis on Tuesday and Tuesday. Last Hemodialysis 04/11 2. history of hypertension. 3. Recent COVID-19 infection. 4. AFib with RVR. 5. pneumonia. 6. hypercapnic respiratory failure. 7. COPD exacerbation. Recommendations. 04/13: No need for hemodialysis today. 04/12: No need for HD today 04/11: HD today.. 04/10: No need for HD today. Renal diet. 04/09: HD today. 04/08: NO need for HD today. 04/07: Hemodialysis today, fluid removal as tolerated, target 2 L.. Renal restriction once patient is able to tolerate p.o.. Limit fluid to 1 L a day. No need for Epogen Drug dose adjustment to GFR. Avoid use of nephrotoxic medications/NSAIDs. Thank you for the consultation, any question please call [phone] Consultants: cardiology, infectious disease, nephrology, pulmonary at 2115 RPT #: [id number] END OF REPORT [facility] 2021-04-13 17:32:00 [facility] ([facility]) Wound Care Progress Note REPORT#:[id number] REPORT STATUS: Signed DATE:04/13/21 TIME:1732 PATIENT: IRA RAYA UNIT #: [id number] ROOM/BED: 303-1 : 54 AGE: 65 SEX: M ATTEND: Mandy Devlin MD ADM AUTHOR: Barbara Christensen * ALL edits or amendments must be made on the electronic/computer document * Subjective Chief Complaint: Patient seen and examined at [facility], on room air. No acute complaints. Objective General VS: Last Documented: Result Date Time O2 Delivery Room air 04/13 1600 Temp 36.7 04/13 1600 Pulse Ox 98 04/13 1106 B/P 132/69 04/13 1106 B/P Mean 89 04/13 1106 Pulse 96 04/13 1106 Resp 17 04/13 1106 O2 Flow Rate 4 04/13 0737 FiO2 21 04/13 0730 PATIENT WEIGHT: Weight (lb): Weight (oz): Weight (kg): 136.400 Medications: Active Meds + DC'd Last 24 Hrs Hydrocortisone Sodium Succinate (Solu-CORTEF) 100 MG Q12H IV Midodrine (PROAMATINE) 10 MG Q8H PO Amiodarone HCl (CORDARONE) 400 MG BID PO (CKD) Albumin Human (Albumin 25%) 25 GM ASDIR PRN IV (DC) Hydrocortisone Sodium Succinate (Solu-CORTEF) 100 MG Q8HR IV (DC) Mupirocin (BACTROBAN NASAL-ADULT ICU/JAYLAN MRSA PATIENTS) 1 APPLIC BID NASAL (DC) Norepinephrine Bitartrate (Levophed 16 MG/250 ML NS) 250 ML ASDIR IV Sodium Chloride (0.9% Sodium Chloride) 250 ML ONCE ONE IV Allopurinol (ZYLOPRIM) 100 MG BEDTIME PO Cinacalcet (SENSIPAR) 30 MG BEDTIME PO Apixaban (ELIQUIS) 5 MG BID PO Mannitol (MANNITOL 25%) 12.5 GM BOLUS PRN IV Sodium Chloride (0.9% Sodium Chloride) 2,000 ML .Q24H PRN IV Docusate Sodium (COLACE) 100 MG BID PO Senna (SENOKOT) 1 TAB BID PO (CKD) Albumin Human (OPTISON) 3 ML ONCE PRN IV Sevelamer Carbonate (RENVELA) 800 MG C MEALS PO Insulin Human Lispro (HUMALOG) S/SCALE LOW AC HS SUBQ Pantoprazole (PROTONIX) 40 MG DAILY@0600 PO Iopamidol (ISOVUE-370) 100 ML ONCE PRN IV Dextrose/Water (Dextrose 50% W SYRINGE) 50 ML ASDIR PRN IV (CKD) Acetaminophen (TYLENOL) 650 MG Q4H PRN PRN PO Cefepime HCl (MAXIPIME) 1 GM Q24H IV Sterile Water (WATER FOR INJECTION) 10 ML Hydrocodone Bitart/Acetaminophen (NORCO 5/325) 1 TAB Q4H PRN PRN PO Ondansetron HCl (ZOFRAN) 4 MG Q6H PRN PRN IV Nutrition assessment: The data set between the solid lines has been imported from the dietitian's assessment. Any exceptions have been noted under Provider comments. BMI Calculated: 40.8 Nutrition related diagnosis: Nutrition diagnosis details: Nutrition problem: Altered GI function Nutrition etiology: Swallowing difficulty Nutrition signs and symptoms: NPO; awaiting speech eval Nutrition prescription: Recommend diet per speech pathology recommendation. Recommend Nepro BID to assist in meeting nutritional needs as patient's PO is inadequate. Dietitian name: Lilia Pereyra, DIET Assessment completed: 04/12/21 Provider comments on imported dietitian assessment: Physical Exam General appearance: alert, awake, oriented Head/eyes: atraumatic, clear cornea ENT: moist mucosal membranes, normal dentition Neck: left central line Cardiovascular: normal heart sounds, regular rate rhythm Respiratory: no distress, symmetric expansion Abdomen: non-tender, normal bowel sounds, no distention Wound Assessment Wound Assessment 1: Type/cause: pressure Wound location: sacral region Tissue layers: limited to skin breakdown Site condition: granulating Length (cm): 1.3 Width (cm): 0.5 Diagnosis, Assessment Plan Hosptial course to date: Assessment/plan sacral stage 2 decubitus wound wound is clean and dry with no clinical signs of infection. Wound care: apply barrier cream to area daily or PRN if sopiled or removed. Avoid direct pressure over area, recommend air mattress. Offload with wedge pillow. COVID 19 respiratory failure continue O2 supplementation. Wean as tolerated. ESRD on HD, leucocytosis, transaminitis -medical management per primary team -continue to monitor CBC and BMP Plan of care discussed with Dr. Merritt Thank you for consultation. at 1733 RPT #: [id number] END OF REPORT [facility] 2021-04-13 13:37:00 [facility] ([facility]) Infectious Dis. Progress Note REPORT#:[id number] REPORT STATUS: Signed DATE:04/13/21 TIME:1336 PATIENT: IRA RAYA UNIT #: [id number] ROOM/BED: [place] [address] : 54 AGE: 65 SEX: M ATTEND: Mandy Devlin MD ADM AUTHOR: Bridgett Ramos * ALL edits or amendments must be made on the electronic/computer document * Bridgett Ramos 04/13/21 1337: Subjective Chief Complaint: HCAP HPI: Patient afebrile, very sleepy, on 4L O2 via nasal cannula, improving. WBC 8.6 downtrending, ALT 155. Review of Systems Constitutional: Reports: fatigue. Denies: chills, fever. Objective General VS/I O: Last Documented: Result Date Time Pulse Ox 98 04/13 1106 B/P 132/69 04/13 1106 B/P Mean 89 04/13 1106 Pulse 96 04/13 1106 Resp 17 04/13 1106 O2 Delivery Nasal cannula 04/13 0800 O2 Flow Rate 4 04/13 0737 Temp 36.9 04/13 0737 FiO2 21 04/13 0730 Vital Signs Date Temp Pulse Resp B/P B/P Mean Pulse Ox FiO2 04/12-04/13 35.9-36.9 84-101 12-35 83-132/49-74 60-90 31-100 21-50 24 hour I O ending at 0700: 10 0700 04/12 1900 Intake Total 130 640 Output Total Balance 130 640 Intake, Oral 130 640 PATIENT WEIGHT: Weight (lb): Weight (oz): Weight (kg): 136.400 Physical Exam General appearance: lethargic, respiratory support, no acute distress, pleasant Head/Eyes: atraumatic, normal conjunctiva/sclera, normal eyelids/periorb, normocephalic ENT: moist mucosal membranes, normal nose Neck: full range of motion, supple/no meningismus, no masses or swelling Respiratory: on oxygen, symmetric expansion Extremities: normal temperature, no clubbing, no cyanosis Neuro/GRAIN ELEVATOR MOTOR STARTER: normal speech, oriented to persom, place, and situation Skin: dry, intact, normal color, no rash Diagnosis, Assessment Plan Free Text A P: Laboratory Tests 04/13/21 0415: [Embedded Image Not Available] 04/07 MRSA neg Imaging: CTA GGOs, no PE 04/07 CXR b/l infiltrates 04/10, 2 TTE reviewed Assessment: 1. Sepsis. 2. Probable HCAP. 3. Acute respiratory failure with hypoxia due to PNA vs. pulmonary congestion. 4. Recent covid-19. Vaccinated. 5. ESRD. 6. Afib with RVR. 7. Sacral stage 2 decubitus wound. Plan: 1. Continue empiric cefepime (day 7 of 7). Most likely, will not need further abx. 2. Leukocytosis resolving. Monitor. 3. Staph hominis in blood likely contaminant but will follow closely. 4. Wound care. 5. Dialysis per renal. Miles Nance 04/13/21 2331: Attestations Physician Attestation Reviewed findings plan: I evaluated the pt with DALE Ramos. I confirm the interval history, physical exam, lab results, assessment and plan. My personal evluation is HCAP and ESRD. Plan: last day of cefepime, monitor CBC and temperature. at 1520 at 2332 RPT #: [id number] END OF REPORT [facility] 2021-04-13 10:58:00 [facility] ([facility]) Pulmonology Progress Note REPORT#:[id number] REPORT STATUS: Signed DATE:04/13/21 TIME:1058 PATIENT: IRA RAYA UNIT #: [id number] ROOM/BED: [place] [address] : 54 AGE: 65 SEX: M ATTEND: Mandy Devlin MD ADM AUTHOR: Noé Granado MD * ALL edits or amendments must be made on the electronic/computer document * Subjective Chief Complaint: patient is awake , no distress on room air now Review of Systems ROS Constitutional: Denies: fever, generalized weakness, lethargy. Respiratory: Denies: HWANG (dyspnea on exertion), productive cough (sputum), SOB, wheezing. Cardiovascular: Denies: chest pain, HWANG (dyspnea on exertion). GI: Denies: abdominal pain, nausea, vomiting. Musculoskeletal: Denies: thoracic pain. Heme: Denies: bleeding. Neuro: Denies: headache. Objective General VS/I O: Last Documented: Result Date Time Pulse Ox 97 04/13 1040 B/P 92/65 04/13 1040 B/P Mean 75 04/13 1040 Pulse 90 04/13 1040 Resp 15 04/13 1040 O2 Delivery Nasal cannula 04/13 0800 O2 Flow Rate 4 04/13 0737 Temp 36.9 04/13 0737 FiO2 21 04/13 0730 24 hour I O ending at 0700: 04/13 0700 04/12 1900 Intake Total 130 640 Output Total Balance 130 640 Intake, Oral 130 640 PATIENT WEIGHT: Weight (lb): Weight (oz): Weight (kg): 136.400 Medications: Active Meds + DC'd Last 24 Hrs Midodrine (PROAMATINE) 10 MG Q8H PO Amiodarone HCl (CORDARONE) 400 MG BID PO (CKD) Albumin Human (Albumin 25%) 25 GM ASDIR PRN IV Hydrocortisone Sodium Succinate (Solu-CORTEF) 100 MG Q8HR IV Mupirocin (BACTROBAN NASAL-ADULT ICU/JAYLAN MRSA PATIENTS) 1 APPLIC BID NASAL Norepinephrine Bitartrate (Levophed 16 MG/250 ML NS) 250 ML ASDIR IV Sodium Chloride (0.9% Sodium Chloride) 250 ML ONCE ONE IV Allopurinol (ZYLOPRIM) 100 MG BEDTIME PO Cinacalcet (SENSIPAR) 30 MG BEDTIME PO Apixaban (ELIQUIS) 5 MG BID PO Mannitol (MANNITOL 25%) 12.5 GM BOLUS PRN IV Sodium Chloride (0.9% Sodium Chloride) 2,000 ML .Q24H PRN IV Docusate Sodium (COLACE) 100 MG BID PO Senna (SENOKOT) 1 TAB BID PO (CKD) Albumin Human (OPTISON) 3 ML ONCE PRN IV Sevelamer Carbonate (RENVELA) 800 MG C MEALS PO Insulin Human Lispro (HUMALOG) S/SCALE LOW AC HS SUBQ Pantoprazole (PROTONIX) 40 MG DAILY@0600 PO Iopamidol (ISOVUE-370) 100 ML ONCE PRN IV Dextrose/Water (Dextrose 50% W SYRINGE) 50 ML ASDIR PRN IV (CKD) Acetaminophen (TYLENOL) 650 MG Q4H PRN PRN PO Cefepime HCl (MAXIPIME) 1 GM Q24H IV Sterile Water (WATER FOR INJECTION) 10 ML Hydrocodone Bitart/Acetaminophen (NORCO 5/325) 1 TAB Q4H PRN PRN PO Ondansetron HCl (ZOFRAN) 4 MG Q6H PRN PRN IV Physical Exam Head/eyes: EOMI ENT: ENT: normal pharynx Neck: normal thyroid Cardiovascular: irregular rhythm, normal heart sounds, normal S1/S2, no murmur, no gallop Respiratory/chest: decreased breath sounds, symmetric expansion, no distress, no tenderness Abdomen: non-tender Genitourinary: no flank pain Extremities: no cyanosis, no edema, no pedal edema Musculoskeletal: no muscle spasm Neuro/GRAIN ELEVATOR MOTOR STARTER: alert Skin: dry, intact Lymphatics: no lymphadenopathy Results Findings/Data: Laboratory Tests 04/13/21414: [Embedded Image Not Available] Laboratory Tests 04/13 04/13 04/12 04/12 04/12 0722 0415 1950 1614 1153 Chemistry Sodium (134 - 147 mmol/L) 134 Potassium (3.4 - 5.0 mmol/L) 3.9 Chloride (100 - 108 mmol/L) 99 L Carbon Dioxide (21 - 32 mmol/L) 25 Anion Gap (4.0 - 15.0 GAP calc) 10.0 BUN (7 - 18 MG/DL) 37 H Creatinine (0.8 - 1.3 MG/DL) 6.9 H Glomerular Filtr Rate (>60 estGFR) 10 L Glucose (70 - 110 MG/DL) 113 H POC Glucose (70 - 110 mg/dL) 112 H 109 94 94 Calcium (8.5 - 10.1 MG/DL) 9.3 Laboratory Tests 10/04 0415 Hematology WBC (3.5 - 11.0 K/mm3) 8.6 RBC (4.70 - 6.10 M/mm3) 4.80 Hgb (12.3 - 15.9 G/DL) 12.1 L Hct (35.8 - 46.7 %) 40.3 MCV (86.3 - 98.9 Fl) 84.0 L MCH (28.9 - 34.4 pg) 25.2 L MCHC (32.1 - 34.5 G/DL) 30.0 L RDW (11.5 - 14.5 SD) 21.1 H Plt Count (150 - 450 K/mm3) 115 L Neut % (Auto) (40 - 76 %) 86.1 H Lymph % (Auto) (20.5 - 51.1 %) 5.7 L Haralson % (Auto) (1.7 - 9.3 %) 6.7 Eos % (Auto) (0.0 - 6.0 %) 0.0 Baso % (Auto) (0.0 - 2.0 %) 0.1 Neut # (Auto) (1.8 - 7.6 K/mm3) 7.4 Lymph # (Auto) (0.6 - 3.0 K/mm3) 0.5 L Haralson # (Auto) (0.2 - 1.5 K/mm3) 0.6 Eos # (Auto) (0.0 - 0.4 K/mm3) 0.0 Baso # (Auto) (0.0 - 0.2 K/mm3) 0.0 Abs Immat Gran (auto) (0.00 - 0.03 x10 3/uL) 0.12 H Add Manual Diff (CRITERIA DIFF/SCN) NO Immature Gran % (0.0 - 5.0 %) 1.4 Nucleated RBC % (0.0 - 1.0 /100WBC%) 1.3 H Diagnosis, Assessment Plan Free Text A P: Impressions: 1. Hypercapnic hypoxic respiratory failure 2. Atrial fibrillation with rapid ventricular response 3, COPD with acute exacerbation 4. Recent Covid infection 5. End-stage renal disease on hemodialysis Plan: Improving pulmonary status now on minimal settings Maintain SPO2 more than 92% continue with I-S Taper hydrocortisone 100 mg 12 hours Midodrine start 10 mg TID Continue Eliquis Continue antibiotics Hemodialysis per schedule DVT prophylaxis Full code Consultants: cardiology, infectious disease, nephrology, pulmonary at 1100 RPT #: [id number] END OF REPORT [facility] 2021-04-12 13:19:00 [facility] Hospitalist Progress Note REPORT#:[id number] REPORT STATUS: Signed DATE:04/12/21 TIME:1319 PATIENT: IRA RAYA UNIT #: [id number] ROOM/BED: [place] [address] : 53 AGE: 65 SEX: M ATTEND: Mandy Devlin MD ADM AUTHOR: Rome Tyler MD * ALL edits or amendments must be made on the electronic/computer document * Subjective Chief Complaint: Altered mental status hypoxia and A. fib Comments: Patient lying on the bed alert oriented x3. Heart rate under control off of amiodarone drip. Off of vasopressors as well. Objective General VS/I O: Vital Signs: Date Time Temp Pulse Resp B/P B/P Pulse O2 O2 Flow FiO2 Mean Ox Delivery Rate 04/12 1201 36.5 04/12 0825 98 Room air 21 04/12 0800 Nasal 3 cannula 04/12 0738 36.7 10 0410 93 100 40 10 0400 36.9 04/12 0145 94 12 113/56 76 100 04/12 0130 98 13 111/55 77 100 04/12 0115 97 17 123/59 84 100 10 0100 96 15 172/58 84 100 10 0045 97 16 147/65 93 100 10 0030 86 15 136/73 99 100 10 0015 93 8 137/65 93 100 10 0000 36.9 10 0000 94 7 132/62 89 100 04/11 2355 100 100 30 04/11 2331 96 34 92/55 69 91 10 2330 95 27 81 10 2301 91 24 151/71 102 100 04/11 2300 89 23 100 04/11 2231 95 19 125/56 81 97 04/110 96 19 99 04/11 2200 86 16 103/57 77 100 04/11 2150 99 100 50 10/02 2145 94 17 106/60 78 100 04/110 94 17 112/56 77 92 04/11 2100 93 19 111/57 82 100 04/11 2031 91 24 116/57 80 85 04/11 2030 91 10 100 04/11 2001 112 21 116/74 89 72 04/11 2000 36.9 04/11 2000 95 22 93 10 1945 100 High flow 3 32 nasal cannula 04/11 1930 94 19 127/59 85 100 04/11 1900 93 17 105/59 76 96 04/11 1830 90 16 124/62 85 100 04/11 1800 93 28 119/61 81 97 04/11 1730 93 16 122/58 84 96 04/11 1701 92 19 100/71 81 100 04/11 1630 92 04/11 1630 5 130/60 87 100 04/11 1619 36.6 04/11 1600 94 18 106/74 85 100 04/11 1530 83 18 120/62 83 04/11 1500 84 15 107/55 74 71 04/11 1459 96 Room air 21 04/11 1430 84 04/11 1430 12 125/67 90 04/11 1400 85 14 125/80 92 04/11 1330 83 26 103/67 80 24 hour I O ending at 0700: 04/12 0700 04/11 1900 Intake Total 60.00 648.00 Output Total 1500 Balance -1440.00 648.00 Intake, IV 60.00 168.00 Intake, Oral 480 Number 1 Incontinent Voids Output, 1500 Hemodialysis PATIENT WEIGHT: Weight (lb): Weight (oz): Weight (kg): 136.400 Medications: Active Meds + DC'd Last 24 Hrs Midodrine (PROAMATINE) 10 MG Q8H PO Amiodarone HCl (CORDARONE) 400 MG BID PO (CKD) Albumin Human (Albumin 25%) 25 GM ASDIR PRN IV Hydrocortisone Sodium Succinate (Solu-CORTEF) 100 MG Q8HR IV Midodrine (PROAMATINE) 10 MG TID PO (DC) Mupirocin (BACTROBAN NASAL-ADULT ICU/JAYLAN MRSA PATIENTS) 1 APPLIC BID NASAL Norepinephrine Bitartrate (Levophed 16 MG/250 ML NS) 250 ML ASDIR IV Sodium Chloride (0.9% Sodium Chloride) 250 ML ONCE ONE IV Allopurinol (ZYLOPRIM) 100 MG BEDTIME PO Cinacalcet (SENSIPAR) 30 MG BEDTIME PO Amiodarone HCl (Nexterone 360 MG/200 Ml Bag) 200 ML ASDIR IV (DC) Apixaban (ELIQUIS) 5 MG BID PO Mannitol (MANNITOL 25%) 12.5 GM BOLUS PRN IV Sodium Chloride (0.9% Sodium Chloride) 2,000 ML .Q24H PRN IV Docusate Sodium (COLACE) 100 MG BID PO Senna (SENOKOT) 1 TAB BID PO (CKD) Albumin Human (OPTISON) 3 ML ONCE PRN IV Sevelamer Carbonate (RENVELA) 800 MG C MEALS PO Insulin Human Lispro (HUMALOG) S/SCALE LOW AC HS SUBQ Pantoprazole (PROTONIX) 40 MG DAILY@0600 PO Iopamidol (ISOVUE-370) 100 ML ONCE PRN IV Dextrose/Water (Dextrose 50% W SYRINGE) 50 ML ASDIR PRN IV (CKD) Acetaminophen (TYLENOL) 650 MG Q4H PRN PRN PO Cefepime HCl (MAXIPIME) 1 GM Q24H IV Sterile Water (WATER FOR INJECTION) 10 ML Hydrocodone Bitart/Acetaminophen (NORCO 5/325) 1 TAB Q4H PRN PRN PO Ondansetron HCl (ZOFRAN) 4 MG Q6H PRN PRN IV Physical Exam Head/Eyes: atraumatic, normocephalic ENT: on NRB mask Neck: supple/no meningismus, no JVD Cardiovascular: irregularly irregular, tachycardic Respiratory: hypoxia (improving), on oxygen (15L NRB), aerating well, symmetric expansion Abdomen: obese, non-tender, soft Extremities: moves all, no edema Neuro/GRAIN ELEVATOR MOTOR STARTER: alert (oriented times3) Psychiatry: normal affect, normal judgment/insight Results Findings/Data: Laboratory Tests 04/12 04/12 04/12 04/11 04/11 1153 0735 0500 2118 1609 Chemistry Sodium (134 - 147 mmol/L) 137 Potassium (3.4 - 5.0 mmol/L) 3.5 Chloride (100 - 108 mmol/L) 101 Carbon Dioxide (21 - 32 mmol/L) 27 Anion Gap (4.0 - 15.0 GAP calc) 9.0 BUN (7 - 18 MG/DL) 24 H Creatinine (0.8 - 1.3 MG/DL) 5.3 H Glomerular Filtr Rate (>60 estGFR) 14 L Glucose (70 - 110 MG/DL) 128 H POC Glucose (70 - 110 mg/dL) 94 102 125 H 139 H Calcium (8.5 - 10.1 MG/DL) 10.3 H Laboratory Tests 04/12 0500 Hematology WBC (3.5 - 11.0 K/mm3) 10.5 RBC (4.70 - 6.10 M/mm3) 4.71 Hgb (12.3 - 15.9 G/DL) 11.9 L Hct (35.8 - 46.7 %) 39.4 MCV (86.3 - 98.9 Fl) 83.7 L MCH (28.9 - 34.4 pg) 25.3 L MCHC (32.1 - 34.5 G/DL) 30.2 L RDW (11.5 - 14.5 SD) 20.2 H Plt Count (150 - 450 K/mm3) 146 L MPV (7.0 - 9.6 fL) 10.30 H Neut % (Auto) (40 - 76 %) 85.6 H Lymph % (Auto) (20.5 - 51.1 %) 5.0 L Haralson % (Auto) (1.7 - 9.3 %) 7.0 Eos % (Auto) (0.0 - 6.0 %) 0.1 Baso % (Auto) (0.0 - 2.0 %) 0.3 Neut # (Auto) (1.8 - 7.6 K/mm3) 9.0 H Lymph # (Auto) (0.6 - 3.0 K/mm3) 0.5 L Haralson # (Auto) (0.2 - 1.5 K/mm3) 0.7 Eos # (Auto) (0.0 - 0.4 K/mm3) 0.0 Baso # (Auto) (0.0 - 0.2 K/mm3) 0.0 Abs Immat Gran (auto) (0.00 - 0.03 x10 3/uL) 0.21 H Add Manual Diff (CRITERIA DIFF/SCN) NO Immature Gran % (0.0 - 5.0 %) 2.0 Nucleated RBC % (0.0 - 1.0 /100WBC%) 1.6 H Results: labs reviewed, current med profile rev'd Diagnosis, Assessment Plan Problem List/A P: 1. Acute on chronic respiratory failure with hypoxia - previously on 2L at rehab, now on 15L NRB - admit to IMCU for close monitoring under continuous telemetry - pt is vaccinated, initially dx with COVID-19 on 03/20, test still positive here - possible superimposed bacterial PNA vs HCAP PNA - will also get CTA Chest to rule out PE - empiric IV Vanc and Cefepime abx, follow cultures - IV solumedrol 40mg BID - consult Infectious Disease - consult Pulmonology 2. Pneumonia due to COVID-19 virus - as above 3. New onset a-fib - new onset Afib with RVR HR currently 110s-120s, will give IV metoprolol 5mgx1 - check serum electrolytes, TSH - check echocardiogram - consult Cardiology 4. ESRD on dialysis - hx of ESRD on [facility] HD - will consult Nephrology ot arrange inpatient HD 5. Chronic hypotension - continue home midodrine Consultants: cardiology, infectious disease, nephrology, pulmonary Free Text DxA P Notes Free text DxA P notes: DVT prophylaxis- continue home Eliquis 04/08 Acute on chronic hypoxic respiratory failure Recent Covid suspicion for HCAP Infectious disease and pulmonary on board Continue broad-spectrum antibiotics vancomycin and cefepime Follow infectious work-up Oxygenation slowly improving Also get speech therapy evaluation Intermittent BiPAP as per pulmonary Continue with steroids A. fib with RVR Cardiology on board. Currently on amiodarone drip. Continue with Eliquis Echo pending End-stage renal disease on dialysis Continue dialysis as per nephrology There might be some element of fluid overload Altered mental status probably metabolic encephalopathy Do not have baseline mental status but slowly seems to be improving. CT head was negative for any acute changes. History of coronary artery disease Follow-up with cardiology monitor on telemetry History of gout Continue with home medication DVT prophylaxis Patient is full code 04/09 Acute on chronic hypoxic respiratory failure Recent Covid plus element of superimposed bacterial infection with HCAP Infectious disease and pulmonary on board Continue broad-spectrum antibiotics vancomycin and cefepime Follow infectious work-up Oxygenation slowly improving Also get speech therapy evaluation will be going for modified barium swallow Intermittent BiPAP as per pulmonary Continue with steroids A. fib with RVR Cardiology on board. Currently on amiodarone drip. Continue with Eliquis Echo pending Shock Not sure if it is related to sepsis versus just being dialyzed and with amiodarone. Continue pressors titrate to keep map above 65. End-stage renal disease on dialysis Continue dialysis as per nephrology There might be some element of fluid overload. Seems to be improving. Altered mental status probably metabolic encephalopathy Do not have baseline mental status but slowly seems to be improving. CT head was negative for any acute changes. History of coronary artery disease Follow-up with cardiology monitor on telemetry History of gout Continue with home medication DVT prophylaxis Patient is full code Spent 31 minutes of critical care time in evaluating examining reviewing chart and the imaging and management and discussing with the patient and the consultants 04/10 Acute on chronic hypoxic respiratory failure Recent Covid plus element of superimposed bacterial infection with HCAP Infectious disease and pulmonary on board Continue cefepime Follow infectious work-up Oxygenation slowly improving now on 4 L Speech therapy evaluated and start the patient on oral diet Intermittent BiPAP as per pulmonary Continue with steroids A. fib with RVR Cardiology on board. Currently on amiodarone drip. Continue with Eliquis Echo pending Shock Not sure if it is related to sepsis versus just related to dialysis and with amiodarone plus some element of adrenal insufficiency. Continue pressors titrate to keep map above 65. Pulmonary started the patient on stress dose steroids End-stage renal disease on dialysis Continue dialysis as per nephrology There might be some element of fluid overload. Seems to be improving. Altered mental status probably metabolic encephalopathy Do not have baseline mental status but slowly seems to be improving. CT head was negative for any acute changes. History of coronary artery disease Follow-up with cardiology monitor on telemetry History of gout Continue with home medication DVT prophylaxis Patient is full code Spent 31 minutes of critical care time in evaluating examining reviewing chart and the imaging and management and discussing with the patient and the consultants 04/11 Acute on chronic hypoxic respiratory failure Recent Covid plus element of superimposed bacterial infection with HCAP Infectious disease and pulmonary on board Continue cefepime Follow infectious work-up so far negative Oxygenation slowly improving now on 3- 4 L Speech therapy evaluated and start the patient on oral diet Intermittent BiPAP as per pulmonary Continue with steroids A. fib with RVR Cardiology on board. Currently on amiodarone drip. Continue with Eliquis Echo pending Shock Not sure if it is related to sepsis versus just related to dialysis and with amiodarone plus some element of adrenal insufficiency. Continue pressors titrate to keep map above 65. Pulmonary started the patient on stress dose steroids. Pressor requirement coming down. End-stage renal disease on dialysis Continue dialysis as per nephrology There might be some element of fluid overload. Seems to be improving. Altered mental status probably metabolic encephalopathy Do not have baseline mental status but slowly seems to be improving. CT head was negative for any acute changes. History of coronary artery disease Follow-up with cardiology monitor on telemetry History of gout Continue with home medication DVT prophylaxis Patient is full code Spent 31 minutes of critical care time in evaluating examining reviewing chart and the imaging and management and discussing with the patient and the consultants 04/12 Acute on chronic hypoxic respiratory failure Recent Covid plus element of superimposed bacterial infection with HCAP plus some element of fluid overload with end-stage renal disease Infectious disease and pulmonary on board Continue cefepime Follow infectious work-up so far negative Oxygenation slowly improving now on 3- 4 L Speech therapy evaluated and start the patient on oral diet Intermittent BiPAP as per pulmonary Continue with steroids A. fib with RVR Cardiology on board. Rate seems to be improving. Now off of amiodarone drip. Continue with p.o. amiodarone. Continue with Eliquis Echo shows preserved EF Shock resolved Not sure if it is related to sepsis versus just related to dialysis and with amiodarone plus some element of adrenal insufficiency. Continue pressors titrate to keep map above 65. Pulmonary started the patient on stress dose steroids. Off of pressors now End-stage renal disease on dialysis Continue dialysis as per nephrology There might be some element of fluid overload. Seems to be improving. Altered mental status probably metabolic encephalopathy seems to be improving now alert oriented x3. CT head was negative for any acute changes. History of coronary artery disease Follow-up with cardiology monitor on telemetry History of gout Continue with home medication DVT prophylaxis Patient is full code Can be downgraded to telemetry at 1328 RPT #: [id number] END OF REPORT [facility] 2021-04-12 11:56:00 [facility] ([facility]) Pulmonology Progress Note REPORT#:[id number] REPORT STATUS: Signed DATE:04/12/21 TIME:1156 PATIENT: IRA RAYA UNIT #: [id number] ROOM/BED: [place] [id number] : 54 AGE: 65 SEX: M ATTEND: Mandy Devlin MD ADM AUTHOR: Gene Aponte MD * ALL edits or amendments must be made on the electronic/computer document * Subjective Chief Complaint: patient is awake , no distress on room air now Review of Systems ROS Constitutional: Denies: fever, generalized weakness, lethargy. Respiratory: Denies: HWANG (dyspnea on exertion), productive cough (sputum), SOB, wheezing. Cardiovascular: Denies: chest pain, HWANG (dyspnea on exertion). GI: Denies: abdominal pain, nausea, vomiting. Musculoskeletal: Denies: thoracic pain. Heme: Denies: bleeding. Neuro: Denies: headache. Objective General VS/I O: Last Documented: Result Date Time Pulse Ox 98 04/12 825 FiO2 21 04/12 08 O2 Delivery Room air 04/12 825 O2 Flow Rate 3 04/12 08 Temp 36.7 04/12 0738 Pulse 93 04/12 0410 B/P 113/56 04/12 0145 B/P Mean 76 04/12 0145 Resp 12 04/12 0145 24 hour I O ending at 0700: 04/12 0700 04/11 1900 Intake Total 60.00 648.00 Output Total 1500 Balance -1440.00 648.00 Intake, IV 60.00 168.00 Intake, Oral 480 Number 1 Incontinent Voids Output, 1500 Hemodialysis PATIENT WEIGHT: Weight (lb): Weight (oz): Weight (kg): 136.400 Medications: Active Meds + DC'd Last 24 Hrs Midodrine (PROAMATINE) 10 MG Q8H PO (PEND) Amiodarone HCl (CORDARONE) 400 MG BID PO (CKD) Albumin Human (Albumin 25%) 25 GM ASDIR PRN IV Hydrocortisone Sodium Succinate (Solu-CORTEF) 100 MG Q8HR IV Midodrine (PROAMATINE) 10 MG TID PO (DC) Mupirocin (BACTROBAN NASAL-ADULT ICU/JAYLAN MRSA PATIENTS) 1 APPLIC BID NASAL Norepinephrine Bitartrate (Levophed 16 MG/250 ML NS) 250 ML ASDIR IV Sodium Chloride (0.9% Sodium Chloride) 250 ML ONCE ONE IV Allopurinol (ZYLOPRIM) 100 MG BEDTIME PO Cinacalcet (SENSIPAR) 30 MG BEDTIME PO Amiodarone HCl (Nexterone 360 MG/200 Ml Bag) 200 ML ASDIR IV (DC) Apixaban (ELIQUIS) 5 MG BID PO Mannitol (MANNITOL 25%) 12.5 GM BOLUS PRN IV Sodium Chloride (0.9% Sodium Chloride) 2,000 ML .Q24H PRN IV Docusate Sodium (COLACE) 100 MG BID PO Senna (SENOKOT) 1 TAB BID PO (CKD) Albumin Human (OPTISON) 3 ML ONCE PRN IV Sevelamer Carbonate (RENVELA) 800 MG C MEALS PO Insulin Human Lispro (HUMALOG) S/SCALE LOW AC HS SUBQ Pantoprazole (PROTONIX) 40 MG DAILY@0600 PO Iopamidol (ISOVUE-370) 100 ML ONCE PRN IV Dextrose/Water (Dextrose 50% W SYRINGE) 50 ML ASDIR PRN IV (CKD) Acetaminophen (TYLENOL) 650 MG Q4H PRN PRN PO Cefepime HCl (MAXIPIME) 1 GM Q24H IV Sterile Water (WATER FOR INJECTION) 10 ML Hydrocodone Bitart/Acetaminophen (NORCO 5/325) 1 TAB Q4H PRN PRN PO Ondansetron HCl (ZOFRAN) 4 MG Q6H PRN PRN IV Physical Exam General appearance: alert, awake, oriented, no acute distress, pleasant, conversational, mental status normal, no respiratory distress Head/eyes: EOMI ENT: ENT: normal pharynx Neck: normal thyroid Cardiovascular: irregular rhythm, normal heart sounds, normal S1/S2, no murmur, no gallop Respiratory/chest: decreased breath sounds, symmetric expansion, no distress, no tenderness Abdomen: non-tender Genitourinary: no flank pain Extremities: no cyanosis, no edema, no pedal edema Musculoskeletal: no muscle spasm Neuro/GRAIN ELEVATOR MOTOR STARTER: alert Skin: dry, intact Lymphatics: no lymphadenopathy Results Findings/Data: Laboratory Tests 04/12/21 0500: [Embedded Image Not Available] Laboratory Tests 04/12 04/12 04/11 04/11 0735 0500 2118 1609 Chemistry Sodium (134 - 147 mmol/L) 137 Potassium (3.4 - 5.0 mmol/L) 3.5 Chloride (100 - 108 mmol/L) 101 Carbon Dioxide (21 - 32 mmol/L) 27 Anion Gap (4.0 - 15.0 GAP calc) 9.0 BUN (7 - 18 MG/DL) 24 H Creatinine (0.8 - 1.3 MG/DL) 5.3 H Glomerular Filtr Rate (>60 estGFR) 14 L Glucose (70 - 110 MG/DL) 128 H POC Glucose (70 - 110 mg/dL) 102 125 H 139 H Calcium (8.5 - 10.1 MG/DL) 10.3 H Laboratory Tests 04/12 0500 Hematology WBC (3.5 - 11.0 K/mm3) 10.5 RBC (4.70 - 6.10 M/mm3) 4.71 Hgb (12.3 - 15.9 G/DL) 11.9 L Hct (35.8 - 46.7 %) 39.4 MCV (86.3 - 98.9 Fl) 83.7 L MCH (28.9 - 34.4 pg) 25.3 L MCHC (32.1 - 34.5 G/DL) 30.2 L RDW (11.5 - 14.5 SD) 20.2 H Plt Count (150 - 450 K/mm3) 146 L MPV (7.0 - 9.6 fL) 10.30 H Neut % (Auto) (40 - 76 %) 85.6 H Lymph % (Auto) (20.5 - 51.1 %) 5.0 L Haralson % (Auto) (1.7 - 9.3 %) 7.0 Eos % (Auto) (0.0 - 6.0 %) 0.1 Baso % (Auto) (0.0 - 2.0 %) 0.3 Neut # (Auto) (1.8 - 7.6 K/mm3) 9.0 H Lymph # (Auto) (0.6 - 3.0 K/mm3) 0.5 L Haralson # (Auto) (0.2 - 1.5 K/mm3) 0.7 Eos # (Auto) (0.0 - 0.4 K/mm3) 0.0 Baso # (Auto) (0.0 - 0.2 K/mm3) 0.0 Abs Immat Gran (auto) (0.00 - 0.03 x10 3/uL) 0.21 H Add Manual Diff (CRITERIA DIFF/SCN) NO Immature Gran % (0.0 - 5.0 %) 2.0 Nucleated RBC % (0.0 - 1.0 /100WBC%) 1.6 H Diagnosis, Assessment Plan Free Text A P: Impressions: 1. Hypercapnic hypoxic respiratory failure 2. Atrial fibrillation with rapid ventricular response 3, COPD with acute exacerbation 4. Recent Covid infection 5. End-stage renal disease on hemodialysis Plan: Improving pulmonary status now on room air saturating 100% at rest Maintain SPO2 more than 92% continue with I-S Off vasopressor support Continue steroids hydrocortisone 100 mg 8 hours Midodrine start 10 mg TID Continue Eliquis Continue antibiotics Hemodialysis per schedule DVT prophylaxis Full code Consultants: cardiology, infectious disease, nephrology, pulmonary at 1157 RPT #: [id number] END OF REPORT [facility] 2021-04-12 09:33:00 [facility] ([facility]) Nephrology Progress Note REPORT#:[id number] REPORT STATUS: Signed DATE:04/12/21 TIME:932 PATIENT: IRA RAYA UNIT #: [id number] ROOM/BED: [place] [id number] : 54 AGE: 65 SEX: M ATTEND: Mandy Devlin MD ADM AUTHOR: Genaro Gupta MD * ALL edits or amendments must be made on the electronic/computer document * Subjective Chief Complaint: ESRD Comments: Denies SOB, nausea, vomiting. Had HD yesterday. Review of Systems Free Text ROS Notes Free Text ROS Notes: 10 points ROS performed and documented in subjective, otherwise neg. Objective General VS/I O: Vital Signs: Date Time Temp Pulse Resp B/P B/P Pulse O2 O2 Flow FiO2 Mean Ox Delivery Rate 04/12 0738 36.7 04/12 0410 93 100 40 04/12 0400 36.9 04/12 0145 94 12 113/56 76 100 04/12 0130 98 13 111/55 77 100 04/12 0115 97 17 123/59 84 100 04/12 0100 96 15 172/58 84 100 10/03 0045 97 16 147/65 93 100 10/03 0030 86 15 136/73 99 100 10/03 0015 93 8 137/65 93 100 10/03 0000 36.9 10/ 0000 94 7 132/62 89 100 10/02 2355 100 100 30 10/ 2331 96 34 92/55 69 91 10/ 2330 95 27 81 10/ 2301 91 24 151/71 102 100 10/ 2300 89 23 100 10/ 2231 95 19 125/56 81 97 10/ 2230 96 19 99 10/ 2200 86 16 103/57 77 100 10/ 2150 99 100 50 10/ 2145 94 17 106/60 78 100 10/ 2130 94 17 112/56 77 92 10/ 2100 93 19 111/57 82 100 10/ 2031 91 24 116/57 80 85 102029 91 10 100 102000 112 21 116/74 89 72 10/1999 36.9 101999 95 22 93 10/ 1945 100 High flow 3 32 nasal cannula 04/11 1930 94 19 127/59 85 100 10 1900 93 17 105/59 76 96 10 1830 90 16 124/62 85 100 10/ 1800 93 28 119/61 81 97 10 1730 93 16 122/58 84 96 10 1701 92 19 100/71 81 100 10/ 1630 92 04/11 1630 5 130/60 87 100 10 1619 36.6 10 1600 94 18 106/74 85 100 10 1530 83 18 120/62 83 10 1500 84 15 107/55 74 71 10 1459 96 Room air 21 04/11 1430 84 04/11 1430 12 125/67 90 10 1400 85 14 125/80 92 10 1330 83 26 103/67 80 10/ 1300 92 18 88/57 65 10/ 1230 86 10 110/58 79 10/ 1201 104/72 81 10/ 1200 87 21 04/11 1130 86 20 107/53 77 49 10 1129 36.5 10 1100 90 15 117/69 86 100 10/ 1000 92 17 107/54 75 93 24 hour I O ending at 0700: 10/03 0700 10/02 1900 Intake Total 60.00 648.00 Output Total 1500 Balance -1440.00 648.00 Intake, IV 60.00 168.00 Intake, Oral 480 Number 1 Incontinent Voids Output, 1500 Hemodialysis Medications Active Meds + DC'd Last 24 Hrs Amiodarone HCl (CORDARONE) 400 MG BID PO (CKD) Albumin Human (Albumin 25%) 25 GM ASDIR PRN IV Hydrocortisone Sodium Succinate (Solu-CORTEF) 100 MG Q8HR IV Midodrine (PROAMATINE) 10 MG TID PO Mupirocin (BACTROBAN NASAL-ADULT ICU/JAYLAN MRSA PATIENTS) 1 APPLIC BID NASAL Norepinephrine Bitartrate (Levophed 16 MG/250 ML NS) 250 ML ASDIR IV Sodium Chloride (0.9% Sodium Chloride) 250 ML ONCE ONE IV Allopurinol (ZYLOPRIM) 100 MG BEDTIME PO Cinacalcet (SENSIPAR) 30 MG BEDTIME PO Amiodarone HCl (Nexterone 360 MG/200 Ml Bag) 200 ML ASDIR IV (DC) Apixaban (ELIQUIS) 5 MG BID PO Mannitol (MANNITOL 25%) 12.5 GM BOLUS PRN IV Sodium Chloride (0.9% Sodium Chloride) 2,000 ML .Q24H PRN IV Docusate Sodium (COLACE) 100 MG BID PO Senna (SENOKOT) 1 TAB BID PO (CKD) Albumin Human (OPTISON) 3 ML ONCE PRN IV Sevelamer Carbonate (RENVELA) 800 MG C MEALS PO Insulin Human Lispro (HUMALOG) S/SCALE LOW AC HS SUBQ Pantoprazole (PROTONIX) 40 MG DAILY@0600 PO Iopamidol (ISOVUE-370) 100 ML ONCE PRN IV Dextrose/Water (Dextrose 50% W SYRINGE) 50 ML ASDIR PRN IV (CKD) Acetaminophen (TYLENOL) 650 MG Q4H PRN PRN PO Cefepime HCl (MAXIPIME) 1 GM Q24H IV Sterile Water (WATER FOR INJECTION) 10 ML Hydrocodone Bitart/Acetaminophen (NORCO 5/325) 1 TAB Q4H PRN PRN PO Ondansetron HCl (ZOFRAN) 4 MG Q6H PRN PRN IV Physical Exam General appearance: awake, oriented Head/eyes: PERRL ENT: normal nose Neck: full range of motion, no bruit/NL carotids, no JVD C-Spine clearance: no midline tenderness Cardiovascular: normal heart sounds, no murmur Respiratory: clear to auscultation, no distress Abdomen: non-tender, soft Genitourinary: no gómez Extremities: normal inspection, no edema Musculoskeletal: full range of motion Neuro/GRAIN ELEVATOR MOTOR STARTER: oriented X 3 Results Findings/Data: Laboratory Tests 04/12 04/11 04/11 04/11 0500 2118 1609 1123 Chemistry Sodium (134 - 147 mmol/L) 137 Potassium (3.4 - 5.0 mmol/L) 3.5 Chloride (100 - 108 mmol/L) 101 Carbon Dioxide (21 - 32 mmol/L) 27 Anion Gap (4.0 - 15.0 GAP calc) 9.0 BUN (7 - 18 MG/DL) 24 H Creatinine (0.8 - 1.3 MG/DL) 5.3 H Glomerular Filtr Rate (>60 estGFR) 14 L Glucose (70 - 110 MG/DL) 128 H POC Glucose (70 - 110 mg/dL) 125 H 139 H 130 H Calcium (8.5 - 10.1 MG/DL) 10.3 H Laboratory Tests 04/12 0500 Hematology WBC (3.5 - 11.0 K/mm3) 10.5 RBC (4.70 - 6.10 M/mm3) 4.71 Hgb (12.3 - 15.9 G/DL) 11.9 L Hct (35.8 - 46.7 %) 39.4 MCV (86.3 - 98.9 Fl) 83.7 L MCH (28.9 - 34.4 pg) 25.3 L MCHC (32.1 - 34.5 G/DL) 30.2 L RDW (11.5 - 14.5 SD) 20.2 H Plt Count (150 - 450 K/mm3) 146 L MPV (7.0 - 9.6 fL) 10.30 H Neut % (Auto) (40 - 76 %) 85.6 H Lymph % (Auto) (20.5 - 51.1 %) 5.0 L Haralson % (Auto) (1.7 - 9.3 %) 7.0 Eos % (Auto) (0.0 - 6.0 %) 0.1 Baso % (Auto) (0.0 - 2.0 %) 0.3 Neut # (Auto) (1.8 - 7.6 K/mm3) 9.0 H Lymph # (Auto) (0.6 - 3.0 K/mm3) 0.5 L Haralson # (Auto) (0.2 - 1.5 K/mm3) 0.7 Eos # (Auto) (0.0 - 0.4 K/mm3) 0.0 Baso # (Auto) (0.0 - 0.2 K/mm3) 0.0 Abs Immat Gran (auto) (0.00 - 0.03 x10 3/uL) 0.21 H Add Manual Diff (CRITERIA DIFF/SCN) NO Immature Gran % (0.0 - 5.0 %) 2.0 Nucleated RBC % (0.0 - 1.0 /100WBC%) 1.6 H Diagnosis, Assessment Plan Free Text A P: 1. end-stage renal disease on hemodialysis. Hemodialysis on Tuesday and Tuesday. Last Hemodialysis 04/11 2. history of hypertension. 3. Recent COVID-19 infection. 4. AFib with RVR. 5. pneumonia. 6. hypercapnic respiratory failure. 7. COPD exacerbation. Recommendations. 04/12: No need for HD today 04/11: HD today.. 04/10: No need for HD today. Renal diet. 04/09: HD today. 04/08: NO need for HD today. 04/07: Hemodialysis today, fluid removal as tolerated, target 2 L.. Renal restriction once patient is able to tolerate p.o.. Limit fluid to 1 L a day. No need for Epogen Drug dose adjustment to GFR. Avoid use of nephrotoxic medications/NSAIDs. Thank you for the consultation, any question please call [phone] Consultants: cardiology, infectious disease, nephrology, pulmonary at 0935 RPT #: [id number] END OF REPORT [facility] 2021-04-12 09:07:00 [facility] ([facility]) Cardiology Progress Note REPORT#:[id number] REPORT STATUS: Signed DATE:04/12/21 TIME:906 PATIENT: IRA RAYA UNIT #: [id number] ROOM/BED: [place] [id number] : 54 AGE: 65 SEX: M ATTEND: Mandy Devlin MD ADM AUTHOR: Rishabh Robbins MD * ALL edits or amendments must be made on the electronic/computer document * Subjective Chief Complaint: offers none Objective General VS/I O: PATIENT WEIGHT: Weight (lb): Weight (oz): Weight (kg): 136.400 Physical Exam General appearance: obese C-Spine clearance: no midline tenderness Cardiovascular: CV assessment: irregularly irregular Respiratory: clear to auscultation Abdomen: soft, non-tender Lower extremity: LE assessment: edema Neuro/GRAIN ELEVATOR MOTOR STARTER: alert, oriented X 3, normal speech Review of Systems Constitutional: Denies: chills, fatigue, fever. Respiratory: Denies: SOB. Cardiovascular: Denies: chest pain. GI: Denies: abdominal pain. All systems rev neg: except as marked Diagnosis, Assessment Plan Problem List/A P: 1. New onset a-fib 2. Chronic hypotension 3. Acute on chronic respiratory failure with hypoxia 4. ESRD on dialysis 5. Hypoxia 6. Pneumonia due to COVID-19 virus Free Text DxA P Notes Free Text DxA P Notes: 1) AMS: resolved, AOX3 2) ESRD on HD Tue, , Sat 3) Recent covid 4) Respiratory distress: significantly improved 5) hypoglycemia: resolved 6) AF RVR: CVR now, Plan; DC IV amiodarone Amiodarone 400 bid Continue eliquis Continue other home meds at 1548 [facility] #: [id number] END OF REPORT [facility] 2021-04-11 20:44:00 [facility] ([facility]) Wound Care Progress Note REPORT#:[id number] REPORT STATUS: Signed DATE:04/11/21 TIME:2043 PATIENT: IRA RAYA UNIT #: [id number] ROOM/BED: [place] [id number] : 53 AGE: 65 SEX: M ATTEND: Mandy Devlin MD ADM AUTHOR: Ember Mandujano * ALL edits or amendments must be made on the electronic/computer document * Subjective Chief Complaint: pt remains confused/AMS Objective Physical Exam Head/eyes: atraumatic, clear cornea ENT: moist mucosal membranes, normal dentition Neck: left central line Cardiovascular: normal heart sounds, regular rate rhythm Respiratory: no distress, symmetric expansion Wound Assessment Wound Assessment 1: Type/cause: pressure Wound location: sacral region Tissue layers: limited to skin breakdown Site condition: granulating Length (cm): 1.3 Width (cm): 0.5 Diagnosis, Assessment Plan Hosptial course to date: Assessment/plan sacral stage 2 decubitus wound wound is clean and dry with no clinical signs of infection. Wound care: apply duoderm to area and change qMWF or PRN if soiled or removed. Avoid direct pressure over area, recommend air mattress. Offload with wedge pillow. COVID 19 respiratory failure continue O2 supplementation. Wean as tolerated. ESRD on HD, leucocytosis, transaminitis -medical management per primary team -continue to monitor CBC and BMP Plan of care discussed with Dr. Merritt Thank you for consultation. at 0902 at 1811 RPT #: [id number] END OF REPORT [facility] 2021-04-11 15:47:00 [facility] ([facility]) Cardiology Progress Note REPORT#:[id number] REPORT STATUS: Signed DATE:04/11/21 TIME:1547 PATIENT: IRA RAYA UNIT #: [id number] ROOM/BED: [place] [id number] : 53 AGE: 65 SEX: M ATTEND: Mandy Devlin MD ADM AUTHOR: Rishabh Robbins MD * ALL edits or amendments must be made on the electronic/computer document * See Addendum Objective Physical Exam C-Spine clearance: no midline tenderness Diagnosis, Assessment Plan Free Text DxA P Notes Free Text DxA P Notes: 1) AMS: resolved, AOX3 2) ESRD on HD Tue, Th, Sat 3) Recent covid 4) Respiratory distress: significantly improved 5) hypoglycemia: resolved 6) AF RVR: CVR now, Plan; DC IV amiodarone Amiodarone 400 bid Continue eliquis Continue other meds at 2214 Addendum 1: 06/01/21 1021 by iRshabh Robbins MD Chief Complaint: offers none, feels ok Review of System: Denies: Chills and fever Respiratory: Denies SOB Cardiovascular: Denies chest pain GI: Denies abdominal pain Neuro: Denies headache, confusion General appearance: obese C-Spine clearance: no midline tenderness Cardiovascular: CV assessment: irregularly irregular Respiratory: clear to auscultation Abdomen: soft, non-tender Lower extremity: LE assessment: edema Neuro/GRAIN ELEVATOR MOTOR STARTER: alert, oriented X 3, normal speech at 1023 RPT #: [id number] END OF REPORT [facility] 2021-04-11 12:49:00 [facility] ([facility]) Nephrology Progress Note REPORT#:[id number] REPORT STATUS: Signed DATE:04/11/21 TIME:1249 PATIENT: IRA RAYA UNIT #: [id number] ROOM/BED: [place] [id number] : 53 AGE: 65 SEX: M ATTEND: Mandy Devlin MD ADM AUTHOR: Genaro Gupta MD * ALL edits or amendments must be made on the electronic/computer document * Subjective Chief Complaint: ESRD Comments: Denies SOB, nausea, vomiting. Review of Systems Free Text ROS Notes Free Text ROS Notes: 10 points ROS reviewed and documented in subjective, otherwise negative.. Objective General VS/I O: Vital Signs: Date Time Temp Pulse Resp B/P B/P Pulse O2 O2 Flow FiO2 Mean Ox Delivery Rate 04/11 1129 36.5 04/11 1000 92 17 107/54 75 93 04/11 930 98 14 90/55 68 70 04/11 900 101 16 100 04/11 830 101 17 103/56 73 04/11 800 Nasal 3 cannula 10/02 0800 97 18 119/56 81 92 10/02 0757 36.7 10/02 0730 95 20 98/56 74 84 10/02 0700 94 15 97/54 70 93 10/02 0530 98 10 107/50 70 94 10/02 0515 97 11 118/57 76 92 10/02 0501 94 9 113/53 76 96 10/02 0446 98 16 108/44 64 93 10/02 0430 99 16 117/56 77 93 10/02 0425 99 95 50 10/02 0415 97 18 118/56 80 94 10/02 0400 37.0 96 19 107/52 71 93 10/02 0345 96 17 112/58 79 94 10/02 0330 94 14 128/56 81 95 10/02 0315 92 10 109/56 80 97 10/02 0300 95 9 111/53 76 97 10/02 0245 94 17 117/55 78 94 10/02 0230 97 16 115/60 80 96 10/02 0215 96 9 100/55 74 93 10/02 0200 98 13 115/56 81 96 10/02 0146 97 16 132/64 87 93 10/02 0130 99 15 120/56 81 94 10/02 0115 95 20 113/58 82 94 10/02 0100 97 17 114/57 77 94 10/02 0045 94 16 113/59 82 94 10/02 0030 95 16 114/55 79 94 10/02 0015 96 15 115/56 77 95 10/02 0000 2.6 94 18 127/60 86 93 10/ 2355 88 93 50 10 2345 93 15 132/64 92 94 10 2330 89 19 137/67 96 93 10/ 2315 90 12 132/68 93 93 10/ 2304 94 18 131/62 89 93 10 2245 88 18 135/58 84 90 10 2230 93 16 131/60 86 94 105 91 19 122/63 84 93 10/ 2200 92 13 125/62 86 94 105 89 14 113/59 80 92 100 91 15 130/64 88 94 102114 93 17 126/66 90 92 102100 95 16 141/62 89 89 04/10 2045 91 17 132/61 86 91 04/10 2031 92 19 130/60 87 97 10/01 2015 86 13 148/67 96 96 04/10 2005 97 Nasal 5 40 cannula 04/10 2000 Nasal 5 cannula 04/10 2000 37.0 87 16 144/66 95 95 04/10 1945 87 16 136/68 94 93 04/10 1930 88 15 134/63 91 97 04/10 1615 96 17 107/61 77 91 04/10 1614 36.9 04/10 1600 93 16 143/63 90 04/10 1557 97 19 134/58 82 04/10 1415 100 19 140/57 82 98 04/10 1401 104 17 125/67 84 100 04/10 1345 100 17 119/50 72 96 04/10 1330 106 19 120/56 81 95 04/10 1316 105 16 155/60 87 98 04/10 1300 102 19 119/69 88 99 24 hour I O ending at 0700: 04/11 0700 04/10 1900 Intake Total 840 Output Total Balance 840 Intake, Oral 840 Medications Active Meds + DC'd Last 24 Hrs Hydrocortisone Sodium Succinate (Solu-CORTEF) 100 MG Q8HR IV Midodrine (PROAMATINE) 10 MG TID PO Mupirocin (BACTROBAN NASAL-ADULT ICU/JAYLAN MRSA PATIENTS) 1 APPLIC BID NASAL Norepinephrine Bitartrate (Levophed 16 MG/250 ML NS) 250 ML ASDIR IV Sodium Chloride (0.9% Sodium Chloride) 250 ML ONCE ONE IV Allopurinol (ZYLOPRIM) 100 MG BEDTIME PO Cinacalcet (SENSIPAR) 30 MG BEDTIME PO Amiodarone HCl (Nexterone 360 MG/200 Ml Bag) 200 ML ASDIR IV (CKD) Apixaban (ELIQUIS) 5 MG BID PO Mannitol (MANNITOL 25%) 12.5 GM BOLUS PRN IV Sodium Chloride (0.9% Sodium Chloride) 2,000 ML .Q24H PRN IV Docusate Sodium (COLACE) 100 MG BID PO Senna (SENOKOT) 1 TAB BID PO (CKD) Albumin Human (OPTISON) 3 ML ONCE PRN IV Sevelamer Carbonate (RENVELA) 800 MG C MEALS PO Insulin Human Lispro (HUMALOG) S/SCALE LOW AC HS SUBQ Pantoprazole (PROTONIX) 40 MG DAILY@0600 PO Iopamidol (ISOVUE-370) 100 ML ONCE PRN IV Dextrose/Water (Dextrose 50% W SYRINGE) 50 ML ASDIR PRN IV (CKD) Acetaminophen (TYLENOL) 650 MG Q4H PRN PRN PO Cefepime HCl (MAXIPIME) 1 GM Q24H IV Sterile Water (WATER FOR INJECTION) 10 ML Hydrocodone Bitart/Acetaminophen (NORCO 5/325) 1 TAB Q4H PRN PRN PO Ondansetron HCl (ZOFRAN) 4 MG Q6H PRN PRN IV Physical Exam General appearance: awake Head/eyes: PERRL ENT: normal nose Neck: full range of motion, no bruit/NL carotids, no JVD C-Spine clearance: no midline tenderness Cardiovascular: normal heart sounds, no murmur Respiratory: clear to auscultation, no distress Abdomen: non-tender, soft Genitourinary: no gómez Extremities: normal inspection, no edema Musculoskeletal: full range of motion Neuro/GRAIN ELEVATOR MOTOR STARTER: oriented X 3 Results Findings/Data: Laboratory Tests 04/11 160 Chemistry Sodium (134 - 147 mmol/L) 135 Potassium (3.4 - 5.0 mmol/L) 4.0 Chloride (100 - 108 mmol/L) 101 Carbon Dioxide (21 - 32 mmol/L) 23 Anion Gap (4.0 - 15.0 GAP calc) 11.0 BUN (7 - 18 MG/DL) 46 H Creatinine (0.8 - 1.3 MG/DL) 8.1 H Glomerular Filtr Rate (>60 estGFR) 9 L Glucose (70 - 110 MG/DL) 136 H POC Glucose (70 - 110 mg/dL) 124 H 148 H 135 H Calcium (8.5 - 10.1 MG/DL) 10.3 H Laboratory Tests 04/11 522 Hematology WBC (3.5 - 11.0 K/mm3) 16.8 H RBC (4.70 - 6.10 M/mm3) 5.01 Hgb (12.3 - 15.9 G/DL) 12.6 Hct (35.8 - 46.7 %) 42.1 MCV (86.3 - 98.9 Fl) 84.0 L MCH (28.9 - 34.4 pg) 25.1 L MCHC (32.1 - 34.5 G/DL) 29.9 L RDW (11.5 - 14.5 SD) 20.3 H Plt Count (150 - 450 K/mm3) 177 MPV (7.0 - 9.6 fL) 10.50 H Neut % (Auto) (40 - 76 %) 86.6 H Lymph % (Auto) (20.5 - 51.1 %) 4.8 L Haralson % (Auto) (1.7 - 9.3 %) 7.0 Eos % (Auto) (0.0 - 6.0 %) 0.0 Baso % (Auto) (0.0 - 2.0 %) 0.1 Neut # (Auto) (1.8 - 7.6 K/mm3) 14.6 H Lymph # (Auto) (0.6 - 3.0 K/mm3) 0.8 Haralson # (Auto) (0.2 - 1.5 K/mm3) 1.2 Eos # (Auto) (0.0 - 0.4 K/mm3) 0.0 Baso # (Auto) (0.0 - 0.2 K/mm3) 0.0 Abs Immat Gran (auto) (0.00 - 0.03 x10 3/uL) 0.26 H Add Manual Diff (CRITERIA DIFF/SCN) NO Immature Gran % (0.0 - 5.0 %) 1.5 Nucleated RBC % (0.0 - 1.0 /100WBC%) 1.4 H Diagnosis, Assessment Plan Free Text A P: 1. end-stage renal disease on hemodialysis. Hemodialysis on Tuesday and Tuesday. Last Hemodialysis 04/09 2. history of hypertension. 3. Recent COVID-19 infection. 4. AFib with RVR. 5. pneumonia. 6. hypercapnic respiratory failure. 7. COPD exacerbation. Recommendations. 04/11: HD today.. 04/10: No need for HD today. Renal diet. 04/09: HD today. 04/08: NO need for HD today. 04/07: Hemodialysis today, fluid removal as tolerated, target 2 L.. Renal restriction once patient is able to tolerate p.o.. Limit fluid to 1 L a day. No need for Epogen Drug dose adjustment to GFR. Avoid use of nephrotoxic medications/NSAIDs. Thank you for the consultation, any question please call [phone] Consultants: cardiology, infectious disease, nephrology, pulmonary at [address] [facility] #: [id number] END OF REPORT [facility] 2021-04-11 12:45:00 [facility] ([facility]) Hospitalist Progress Note REPORT#:[id number] REPORT STATUS: Signed DATE:04/11/21 TIME:1245 PATIENT: IRA RAYA UNIT #: [id number] ROOM/BED: [place] [address] : 53 AGE: 65 SEX: M ATTEND: Mandy Devlin MD ADM AUTHOR: Rome Tyler MD * ALL edits or amendments must be made on the electronic/computer document * Subjective Chief Complaint: Altered mental status hypoxia and A. fib Comments: Patient lying on the bed confused but mental status seems to be slowly improving. Is trying to call his to set up his dialysis and informed him that we will arrange for dialysis in the hospital. Still on low-dose Levophed. Objective General VS/I O: Vital Signs: Date Time Temp Pulse Resp B/P B/P Pulse O2 O2 Flow FiO2 Mean Ox Delivery Rate 04/11 1129 36.5 04/11 1000 92 17 107/54 75 93 04/11 0930 98 14 90/55 68 70 04/11 0900 101 16 100 04/11 0830 101 17 103/56 73 04/11 0800 Nasal 3 cannula 04/11 0800 97 18 119/56 81 92 10 0757 36.7 04/11 0730 95 20 98/56 74 84 10/ 0700 94 15 97/54 70 93 04/11 0530 98 10 107/50 70 94 04/11 0515 97 11 118/57 76 92 10 0501 94 9 113/53 76 96 10 0446 98 16 108/44 64 93 10 0430 99 16 117/56 77 93 04/11 0425 99 95 50 04/11 0415 97 18 118/56 80 94 10 0400 37.0 96 19 107/52 71 93 10 0345 96 17 112/58 79 94 10 0330 94 14 128/56 81 95 10/02 0315 92 10 109/56 80 97 10/02 0300 95 9 111/53 76 97 10/02 0245 94 17 117/55 78 94 10/02 0230 97 16 115/60 80 96 10/02 0215 96 9 100/55 74 93 10/02 0200 98 13 115/56 81 96 10/02 0146 97 16 132/64 87 93 10/02 0130 99 15 120/56 81 94 10/02 0115 95 20 113/58 82 94 10/02 0100 97 17 114/57 77 94 10/02 0045 94 16 113/59 82 94 10/02 0030 95 16 114/55 79 94 10/02 0015 96 15 115/56 77 95 10/ 0000 2.6 94 18 127/60 86 93 10 2355 88 93 50 10 2345 93 15 132/64 92 94 04/10 2330 89 19 137/67 96 93 04/10 2315 90 12 132/68 93 93 04/10 2304 94 18 131/62 89 93 04/10 2245 88 18 135/58 84 90 10 2230 93 16 131/60 86 94 04/10 2215 91 19 122/63 84 93 04/10 2200 92 13 125/62 86 94 04/10 2145 89 14 113/59 80 92 04/10 2130 91 15 130/64 88 94 04/10 2115 93 17 126/66 90 92 04/10 2101 95 16 141/62 89 89 04/105 91 17 132/61 86 91 04/10 2031 92 19 130/60 87 97 04/10 2015 86 13 148/67 96 96 04/10 2005 97 Nasal 5 40 cannula 04/10 2000 Nasal 5 cannula 04/10 2000 37.0 87 16 144/66 95 95 04/10 1945 87 16 136/68 94 93 04/10 1930 88 15 134/63 91 97 10 1615 96 17 107/61 77 91 10 1614 36.9 10 1600 93 16 143/63 90 10 1557 97 19 134/58 82 10 1415 100 19 140/57 82 98 10 1401 104 17 125/67 84 100 04/10 1345 100 17 119/50 72 96 10 1330 106 19 120/56 81 95 10 1316 105 16 155/60 87 98 04/10 1300 102 19 119/69 88 99 24 hour I O ending at 0700: 04/11 0700 04/10 1900 Intake Total 840 Output Total Balance 840 Intake, Oral 840 PATIENT WEIGHT: Weight (lb): Weight (oz): Weight (kg): 136.400 Medications: Active Meds + DC'd Last 24 Hrs Hydrocortisone Sodium Succinate (Solu-CORTEF) 100 MG Q8HR IV Midodrine (PROAMATINE) 10 MG TID PO Mupirocin (BACTROBAN NASAL-ADULT ICU/JAYLAN MRSA PATIENTS) 1 APPLIC BID NASAL Norepinephrine Bitartrate (Levophed 16 MG/250 ML NS) 250 ML ASDIR IV Sodium Chloride (0.9% Sodium Chloride) 250 ML ONCE ONE IV Allopurinol (ZYLOPRIM) 100 MG BEDTIME PO Cinacalcet (SENSIPAR) 30 MG BEDTIME PO Amiodarone HCl (Nexterone 360 MG/200 Ml Bag) 200 ML ASDIR IV (CKD) Apixaban (ELIQUIS) 5 MG BID PO Mannitol (MANNITOL 25%) 12.5 GM BOLUS PRN IV Sodium Chloride (0.9% Sodium Chloride) 2,000 ML .Q24H PRN IV Docusate Sodium (COLACE) 100 MG BID PO Senna (SENOKOT) 1 TAB BID PO (CKD) Albumin Human (OPTISON) 3 ML ONCE PRN IV Sevelamer Carbonate (RENVELA) 800 MG C MEALS PO Insulin Human Lispro (HUMALOG) S/SCALE LOW AC HS SUBQ Pantoprazole (PROTONIX) 40 MG DAILY@0600 PO Iopamidol (ISOVUE-370) 100 ML ONCE PRN IV Dextrose/Water (Dextrose 50% W SYRINGE) 50 ML ASDIR PRN IV (CKD) Acetaminophen (TYLENOL) 650 MG Q4H PRN PRN PO Cefepime HCl (MAXIPIME) 1 GM Q24H IV Sterile Water (WATER FOR INJECTION) 10 ML Hydrocodone Bitart/Acetaminophen (NORCO 5/325) 1 TAB Q4H PRN PRN PO Ondansetron HCl (ZOFRAN) 4 MG Q6H PRN PRN IV Physical Exam General appearance: confused, alert, awake Head/Eyes: atraumatic, normocephalic ENT: on NRB mask Neck: supple/no meningismus, no JVD Cardiovascular: irregularly irregular, tachycardic Respiratory: hypoxia (improving), on oxygen (15L NRB), aerating well, symmetric expansion Abdomen: obese, non-tender, soft Extremities: moves all, no edema Neuro/GRAIN ELEVATOR MOTOR STARTER: alert (still not orietned x3) Psychiatry: normal affect, normal judgment/insight Results Findings/Data: Laboratory Tests 04/11 1607 Chemistry Sodium (134 - 147 mmol/L) 135 Potassium (3.4 - 5.0 mmol/L) 4.0 Chloride (100 - 108 mmol/L) 101 Carbon Dioxide (21 - 32 mmol/L) 23 Anion Gap (4.0 - 15.0 GAP calc) 11.0 BUN (7 - 18 MG/DL) 46 H Creatinine (0.8 - 1.3 MG/DL) 8.1 H Glomerular Filtr Rate (>60 estGFR) 9 L Glucose (70 - 110 MG/DL) 136 H POC Glucose (70 - 110 mg/dL) 124 H 148 H 135 H Calcium (8.5 - 10.1 MG/DL) 10.3 H Laboratory Tests 04/11 522 Hematology WBC (3.5 - 11.0 K/mm3) 16.8 H RBC (4.70 - 6.10 M/mm3) 5.01 Hgb (12.3 - 15.9 G/DL) 12.6 Hct (35.8 - 46.7 %) 42.1 MCV (86.3 - 98.9 Fl) 84.0 L MCH (28.9 - 34.4 pg) 25.1 L MCHC (32.1 - 34.5 G/DL) 29.9 L RDW (11.5 - 14.5 SD) 20.3 H Plt Count (150 - 450 K/mm3) 177 MPV (7.0 - 9.6 fL) 10.50 H Neut % (Auto) (40 - 76 %) 86.6 H Lymph % (Auto) (20.5 - 51.1 %) 4.8 L Haralson % (Auto) (1.7 - 9.3 %) 7.0 Eos % (Auto) (0.0 - 6.0 %) 0.0 Baso % (Auto) (0.0 - 2.0 %) 0.1 Neut # (Auto) (1.8 - 7.6 K/mm3) 14.6 H Lymph # (Auto) (0.6 - 3.0 K/mm3) 0.8 Haralson # (Auto) (0.2 - 1.5 K/mm3) 1.2 Eos # (Auto) (0.0 - 0.4 K/mm3) 0.0 Baso # (Auto) (0.0 - 0.2 K/mm3) 0.0 Abs Immat Gran (auto) (0.00 - 0.03 x10 3/uL) 0.26 H Add Manual Diff (CRITERIA DIFF/SCN) NO Immature Gran % (0.0 - 5.0 %) 1.5 Nucleated RBC % (0.0 - 1.0 /100WBC%) 1.4 H Radiology data: Recent Impressions: RADIOLOGY - XR CHEST 1 V 04/11 0620 Report Impression - Status: SIGNED Entered: 04/11/2021 0803 IMPRESSION: Unchanged bilateral scattered interstitial and groundglass airspace opacities. Impression By: [email or web address] - Biju Fuentes M.D. Results: labs reviewed, x-ray personally reviewed, current med profile rev'd Diagnosis, Assessment Plan Problem List/A P: 1. Acute on chronic respiratory failure with hypoxia - previously on 2L at rehab, now on 15L NRB - admit to IM for close monitoring under continuous telemetry - pt is vaccinated, initially dx with COVID-19 on 03/20, test still positive here - possible superimposed bacterial PNA vs HCAP PNA - will also get CTA Chest to rule out PE - empiric IV Vanc and Cefepime abx, follow cultures - IV solumedrol 40mg BID - consult Infectious Disease - consult Pulmonology 2. Pneumonia due to COVID-19 virus - as above 3. New onset a-fib - new onset Afib with RVR HR currently 110s-120s, will give IV metoprolol 5mgx1 - check serum electrolytes, TSH - check echocardiogram - consult Cardiology 4. ESRD on dialysis - hx of ESRD on TuThSat HD - will consult Nephrology ot arrange inpatient HD 5. Chronic hypotension - continue home midodrine Consultants: cardiology, infectious disease, nephrology, pulmonary Free Text DxA P Notes Free text DxA P notes: DVT prophylaxis- continue home Eliquis 04/08 Acute on chronic hypoxic respiratory failure Recent Covid suspicion for HCAP Infectious disease and pulmonary on board Continue broad-spectrum antibiotics vancomycin and cefepime Follow infectious work-up Oxygenation slowly improving Also get speech therapy evaluation Intermittent BiPAP as per pulmonary Continue with steroids A. fib with RVR Cardiology on board. Currently on amiodarone drip. Continue with Eliquis Echo pending End-stage renal disease on dialysis Continue dialysis as per nephrology There might be some element of fluid overload Altered mental status probably metabolic encephalopathy Do not have baseline mental status but slowly seems to be improving. CT head was negative for any acute changes. History of coronary artery disease Follow-up with cardiology monitor on telemetry History of gout Continue with home medication DVT prophylaxis Patient is full code 04/09 Acute on chronic hypoxic respiratory failure Recent Covid plus element of superimposed bacterial infection with HCAP Infectious disease and pulmonary on board Continue broad-spectrum antibiotics vancomycin and cefepime Follow infectious work-up Oxygenation slowly improving Also get speech therapy evaluation will be going for modified barium swallow Intermittent BiPAP as per pulmonary Continue with steroids A. fib with RVR Cardiology on board. Currently on amiodarone drip. Continue with Eliquis Echo pending Shock Not sure if it is related to sepsis versus just being dialyzed and with amiodarone. Continue pressors titrate to keep map above 65. End-stage renal disease on dialysis Continue dialysis as per nephrology There might be some element of fluid overload. Seems to be improving. Altered mental status probably metabolic encephalopathy Do not have baseline mental status but slowly seems to be improving. CT head was negative for any acute changes. History of coronary artery disease Follow-up with cardiology monitor on telemetry History of gout Continue with home medication DVT prophylaxis Patient is full code Spent 31 minutes of critical care time in evaluating examining reviewing chart and the imaging and management and discussing with the patient and the consultants 04/10 Acute on chronic hypoxic respiratory failure Recent Covid plus element of superimposed bacterial infection with HCAP Infectious disease and pulmonary on board Continue cefepime Follow infectious work-up Oxygenation slowly improving now on 4 L Speech therapy evaluated and start the patient on oral diet Intermittent BiPAP as per pulmonary Continue with steroids A. fib with RVR Cardiology on board. Currently on amiodarone drip. Continue with Eliquis Echo pending Shock Not sure if it is related to sepsis versus just related to dialysis and with amiodarone plus some element of adrenal insufficiency. Continue pressors titrate to keep map above 65. Pulmonary started the patient on stress dose steroids End-stage renal disease on dialysis Continue dialysis as per nephrology There might be some element of fluid overload. Seems to be improving. Altered mental status probably metabolic encephalopathy Do not have baseline mental status but slowly seems to be improving. CT head was negative for any acute changes. History of coronary artery disease Follow-up with cardiology monitor on telemetry History of gout Continue with home medication DVT prophylaxis Patient is full code Spent 31 minutes of critical care time in evaluating examining reviewing chart and the imaging and management and discussing with the patient and the consultants 04/11 Acute on chronic hypoxic respiratory failure Recent Covid plus element of superimposed bacterial infection with HCAP Infectious disease and pulmonary on board Continue cefepime Follow infectious work-up so far negative Oxygenation slowly improving now on 3- 4 L Speech therapy evaluated and start the patient on oral diet Intermittent BiPAP as per pulmonary Continue with steroids A. fib with RVR Cardiology on board. Currently on amiodarone drip. Continue with Eliquis Echo pending Shock Not sure if it is related to sepsis versus just related to dialysis and with amiodarone plus some element of adrenal insufficiency. Continue pressors titrate to keep map above 65. Pulmonary started the patient on stress dose steroids. Pressor requirement coming down. End-stage renal disease on dialysis Continue dialysis as per nephrology There might be some element of fluid overload. Seems to be improving. Altered mental status probably metabolic encephalopathy Do not have baseline mental status but slowly seems to be improving. CT head was negative for any acute changes. History of coronary artery disease Follow-up with cardiology monitor on telemetry History of gout Continue with home medication DVT prophylaxis Patient is full code Spent 31 minutes of critical care time in evaluating examining reviewing chart and the imaging and management and discussing with the patient and the consultants at 1248 RPT #: [id number] END OF REPORT [facility] 2021-04-11 12:22:00 [facility] ([facility]) Pulmonology Progress Note REPORT#:[id number] REPORT STATUS: Signed DATE:04/11/21 TIME:1222 PATIENT: IRA RAYA UNIT #: [id number] ROOM/BED: [place] [address] : 54 AGE: 65 SEX: M ATTEND: Mandy Devlin MD ADM AUTHOR: Gene Aponte MD * ALL edits or amendments must be made on the electronic/computer document * Subjective Chief Complaint: patient is awake , no distress Tolerating nasal canula Review of Systems ROS Constitutional: Denies: fever, generalized weakness, lethargy. Respiratory: Denies: HWANG (dyspnea on exertion), productive cough (sputum), SOB, wheezing. Cardiovascular: Denies: chest pain, HWANG (dyspnea on exertion). GI: Denies: abdominal pain, nausea, vomiting. Musculoskeletal: Denies: thoracic pain. Heme: Denies: bleeding. Neuro: Denies: headache. Objective General VS/I O: Last Documented: Result Date Time Temp 36.5 04/11 1129 Pulse Ox 93 04/11 1000 B/P 107/54 04/11 1000 B/P Mean 75 04/11 1000 Pulse 92 04/11 1000 Resp 17 04/11 1000 O2 Delivery Nasal cannula 04/11 0800 O2 Flow Rate 3 04/11 0800 FiO2 50 04/11 0425 24 hour I O ending at 0700: 04/11 0700 04/10 1900 Intake Total 840 Output Total Balance 840 Intake, Oral 840 PATIENT WEIGHT: Weight (lb): Weight (oz): Weight (kg): 136.400 Medications: Active Meds + DC'd Last 24 Hrs Hydrocortisone Sodium Succinate (Solu-CORTEF) 100 MG Q8HR IV Midodrine (PROAMATINE) 10 MG TID PO Mupirocin (BACTROBAN NASAL-ADULT ICU/JAYLAN MRSA PATIENTS) 1 APPLIC BID NASAL Norepinephrine Bitartrate (Levophed 16 MG/250 ML NS) 250 ML ASDIR IV Sodium Chloride (0.9% Sodium Chloride) 250 ML ONCE ONE IV Allopurinol (ZYLOPRIM) 100 MG BEDTIME PO Cinacalcet (SENSIPAR) 30 MG BEDTIME PO Amiodarone HCl (Nexterone 360 MG/200 Ml Bag) 200 ML ASDIR IV (CKD) Apixaban (ELIQUIS) 5 MG BID PO Mannitol (MANNITOL 25%) 12.5 GM BOLUS PRN IV Sodium Chloride (0.9% Sodium Chloride) 2,000 ML .Q24H PRN IV Docusate Sodium (COLACE) 100 MG BID PO Senna (SENOKOT) 1 TAB BID PO (CKD) Albumin Human (OPTISON) 3 ML ONCE PRN IV Sevelamer Carbonate (RENVELA) 800 MG C MEALS PO Insulin Human Lispro (HUMALOG) S/SCALE LOW AC HS SUBQ Pantoprazole (PROTONIX) 40 MG DAILY@0600 PO Iopamidol (ISOVUE-370) 100 ML ONCE PRN IV Dextrose/Water (Dextrose 50% W SYRINGE) 50 ML ASDIR PRN IV (CKD) Acetaminophen (TYLENOL) 650 MG Q4H PRN PRN PO Cefepime HCl (MAXIPIME) 1 GM Q24H IV Sterile Water (WATER FOR INJECTION) 10 ML Hydrocodone Bitart/Acetaminophen (NORCO 5/325) 1 TAB Q4H PRN PRN PO Ondansetron HCl (ZOFRAN) 4 MG Q6H PRN PRN IV Physical Exam General appearance: alert, awake, no acute distress, pleasant, conversational, no respiratory distress Head/eyes: EOMI ENT: ENT: normal pharynx Neck: normal thyroid Cardiovascular: irregular rhythm, normal heart sounds, normal S1/S2, no murmur, no gallop Respiratory/chest: decreased breath sounds, on oxygen, symmetric expansion, no distress, no tenderness Abdomen: non-tender Genitourinary: no flank pain Extremities: no cyanosis, no edema, no pedal edema Musculoskeletal: no muscle spasm Neuro/GRAIN ELEVATOR MOTOR STARTER: alert Skin: dry, intact Lymphatics: no lymphadenopathy Results Findings/Data: Laboratory Tests 04/11/21521: [Embedded Image Not Available] Laboratory Tests 04/11 04/11 04/10 04/10 0752 521 2012 1607 Chemistry Sodium (134 - 147 mmol/L) 135 Potassium (3.4 - 5.0 mmol/L) 4.0 Chloride (100 - 108 mmol/L) 101 Carbon Dioxide (21 - 32 mmol/L) 23 Anion Gap (4.0 - 15.0 GAP calc) 11.0 BUN (7 - 18 MG/DL) 46 H Creatinine (0.8 - 1.3 MG/DL) 8.1 H Glomerular Filtr Rate (>60 estGFR) 9 L Glucose (70 - 110 MG/DL) 136 H POC Glucose (70 - 110 mg/dL) 124 H 148 H 135 H Calcium (8.5 - 10.1 MG/DL) 10.3 H Laboratory Tests 04/11 05 Hematology WBC (3.5 - 11.0 K/mm3) 16.8 H RBC (4.70 - 6.10 M/mm3) 5.01 Hgb (12.3 - 15.9 G/DL) 12.6 Hct (35.8 - 46.7 %) 42.1 MCV (86.3 - 98.9 Fl) 84.0 L MCH (28.9 - 34.4 pg) 25.1 L MCHC (32.1 - 34.5 G/DL) 29.9 L RDW (11.5 - 14.5 SD) 20.3 H Plt Count (150 - 450 K/mm3) 177 MPV (7.0 - 9.6 fL) 10.50 H Neut % (Auto) (40 - 76 %) 86.6 H Lymph % (Auto) (20.5 - 51.1 %) 4.8 L Haralson % (Auto) (1.7 - 9.3 %) 7.0 Eos % (Auto) (0.0 - 6.0 %) 0.0 Baso % (Auto) (0.0 - 2.0 %) 0.1 Neut # (Auto) (1.8 - 7.6 K/mm3) 14.6 H Lymph # (Auto) (0.6 - 3.0 K/mm3) 0.8 Haralson # (Auto) (0.2 - 1.5 K/mm3) 1.2 Eos # (Auto) (0.0 - 0.4 K/mm3) 0.0 Baso # (Auto) (0.0 - 0.2 K/mm3) 0.0 Abs Immat Gran (auto) (0.00 - 0.03 x10 3/uL) 0.26 H Add Manual Diff (CRITERIA DIFF/SCN) NO Immature Gran % (0.0 - 5.0 %) 1.5 Nucleated RBC % (0.0 - 1.0 /100WBC%) 1.4 H Radiology data: Recent Impressions: RADIOLOGY - XR CHEST 1 V 04/11 0620 Report Impression - Status: SIGNED Entered: 04/11/2021 0803 IMPRESSION: Unchanged bilateral scattered interstitial and groundglass airspace opacities. Impression By: [email or web address] Stanley Fuentes M.D. Diagnosis, Assessment Plan Free Text A P: Impressions: 1. Hypercapnic hypoxic respiratory failure 2. Atrial fibrillation with rapid ventricular response 3, COPD with acute exacerbation 4. Recent Covid infection 5. End-stage renal disease on hemodialysis Plan: Improving pulmonary status now on 3 L of oxygen saturating 100% Maintain SPO2 more than 92% Add I-S Off vasopressor support Continue steroids switch to hydrocortisone 100 mg 8 hours Midodrine start 10 mg TID Continue Eliquis Continue antibiotics Hemodialysis per schedule DVT prophylaxis Full code Consultants: cardiology, infectious disease, nephrology, pulmonary at 1223 RPT #: [id number] END OF REPORT [facility] 2021-04-11 10:23:00 [facility] ([facility]) Infectious Dis. Progress Note REPORT#:[id number] REPORT STATUS: Signed DATE:04/11/21 TIME:1023 PATIENT: IRA RAYA UNIT #: [id number] ROOM/BED: [place] [address] : 53 AGE: 65 SEX: M ATTEND: Mandy Devlin MD ADM AUTHOR: Arnold Nance MD * ALL edits or amendments must be made on the electronic/computer document * Subjective Chief Complaint: HCAP HPI: Blood cx showed GPC. Leukocytosis has decreased. Review of Systems Constitutional: Denies: fever. Objective General VS/I O: Last Documented: Result Date Time Pulse Ox 93 04/11 1000 B/P 107/54 04/11 1000 B/P Mean 75 04/11 1000 Pulse 92 04/11 1000 Resp 17 04/11 1000 Temp 36.7 04/11 0757 FiO2 50 04/11 0425 O2 Delivery Nasal cannula 04/10 2005 O2 Flow Rate 5 04/10 2005 Vital Signs Date Temp Pulse Resp B/P B/P Mean Pulse Ox FiO2 04/10-04/11 2.6-37.0 86-119 9-20 90-155/44-69 64-96 70-100 40-50 24 hour I O ending at 0700: 04/11 0700 04/10 1900 Intake Total 840 Output Total Balance 840 Intake, Oral 840 PATIENT WEIGHT: Weight (lb): Weight (oz): Weight (kg): 136.400 Physical Exam Head/Eyes: atraumatic, normal conjunctiva/sclera, normal eyelids/periorb, normocephalic Cardiovascular: tachycardia Respiratory: on oxygen, shortness of breath, symmetric expansion Abdomen: non-tender, normal bowel sounds, soft, no CVA tenderness, no distention , no guarding, no mass/organomegaly, no rebound Extremities: normal temperature, no clubbing, no cyanosis Neuro/GRAIN ELEVATOR MOTOR STARTER: normal speech Skin: dry, intact, normal color, no rash Diagnosis, Assessment Plan Free Text A P: Laboratory Tests 04/11/21 0522: [Embedded Image Not Available] 04/07 MRSA neg Imaging: CTA GGOs, no PE 04/07 CXR b/l infiltrates 04/06 TTE reviewed Assessment: 1. Sepsis. 2. Probable HCAP. 3. Acute respiratory failure with hypoxia due to PNA vs. pulmonary congestion. 4. Recent covid-19. Vaccinated. 5. ESRD. 6. Afib with RVR. 7. Sacral stage 2 decubitus wound. Plan: 1. Continue empiric cefepime (day 5 of 7). Can switch to cefdinir 300 mg po after each HD when ready for discharge. 2. Leukocytosis resolving. Monitor. 3. GPC in blood likely contaminant but will follow closely. Start vancomycin if S. aureus is isolated. 4. Wound care. 5. Dialysis per renal. at 1104 RPT #: [id number] END OF REPORT [facility] 2021-04-10 16:02:00 [facility] ([facility]) Wound Care Progress Note REPORT#:[id number] REPORT STATUS: Signed DATE:04/10/21 TIME:1602 PATIENT: IRA RAYA UNIT #: [id number] ROOM/BED: [place] [address] : 53 AGE: 65 SEX: M ATTEND: Mandy Devlin MD ADM AUTHOR: Barbara Christensen * ALL edits or amendments must be made on the electronic/computer document * Subjective Chief Complaint: Patient seen and examined at [facility], wounds stable. Objective General VS: Last Documented: Result Date Time Pulse Ox 96 04/10 1215 B/P 129/58 04/10 1215 B/P Mean 84 04/10 1215 Pulse 102 04/10 1215 Resp 18 04/10 1215 Temp 36.7 04/10 1200 O2 Delivery High flow nasal cannula 04/10 09 O2 Flow Rate 5 04/10 0949 FiO2 40 04/10 0830 PATIENT WEIGHT: Weight (lb): Weight (oz): Weight (kg): 136.400 Medications: Active Meds + DC'd Last 24 Hrs Hydrocortisone Sodium Succinate (Solu-CORTEF) 100 MG Q8HR IV Midodrine (PROAMATINE) 10 MG TID PO Mupirocin (BACTROBAN NASAL-ADULT ICU/JAYLAN MRSA PATIENTS) 1 APPLIC BID NASAL Norepinephrine Bitartrate (Levophed 16 MG/250 ML NS) 250 ML ASDIR IV Sodium Chloride (0.9% Sodium Chloride) 250 ML ONCE ONE IV Allopurinol (ZYLOPRIM) 100 MG BEDTIME PO Cinacalcet (SENSIPAR) 30 MG BEDTIME PO Amiodarone HCl (Nexterone 360 MG/200 Ml Bag) 200 ML ASDIR IV (CKD) Apixaban (ELIQUIS) 5 MG BID PO Mannitol (MANNITOL 25%) 12.5 GM BOLUS PRN IV Sodium Chloride (0.9% Sodium Chloride) 2,000 ML .Q24H PRN IV Docusate Sodium (COLACE) 100 MG BID PO Methylprednisolone Sodium Succinate (Solu-MEDROL) 40 MG Q12HR IV (DC) Midodrine (PROAMATINE) 5 MG TID PO (DC) Senna (SENOKOT) 1 TAB BID PO (CKD) Albumin Human (OPTISON) 3 ML ONCE PRN IV Sevelamer Carbonate (RENVELA) 800 MG C MEALS PO Insulin Human Lispro (HUMALOG) S/SCALE LOW AC HS SUBQ Pantoprazole (PROTONIX) 40 MG DAILY@0600 PO Iopamidol (ISOVUE-370) 100 ML ONCE PRN IV Dextrose/Water (Dextrose 50% W SYRINGE) 50 ML ASDIR PRN IV (CKD) Acetaminophen (TYLENOL) 650 MG Q4H PRN PRN PO Cefepime HCl (MAXIPIME) 1 GM Q24H IV Sterile Water (WATER FOR INJECTION) 10 ML Hydrocodone Bitart/Acetaminophen (NORCO 5/325) 1 TAB Q4H PRN PRN PO Ondansetron HCl (ZOFRAN) 4 MG Q6H PRN PRN IV Nutrition assessment: The data set between the solid lines has been imported from the dietitian's assessment. Any exceptions have been noted under Provider comments. BMI Calculated: 40.8 Nutrition related diagnosis: Nutrition diagnosis details: Nutrition problem: Altered GI function Nutrition etiology: Swallowing difficulty Nutrition signs and symptoms: NPO; awaiting speech eval Nutrition prescription: Recommend diet per speech pathology recommendation. Encourage po intake as tolerated. Dietitian name: Meseret Flores, DIET Assessment completed: 04/10/21 Provider comments on imported dietitian assessment: Physical Exam Head/eyes: atraumatic, clear cornea ENT: moist mucosal membranes, normal dentition Neck: left central line Cardiovascular: normal heart sounds, regular rate rhythm Respiratory: no distress, symmetric expansion Wound Assessment Wound Assessment 1: Type/cause: pressure Wound location: sacral region Tissue layers: limited to skin breakdown Site condition: granulating Length (cm): 1.3 Width (cm): 0.5 Diagnosis, Assessment Plan Hosptial course to date: Assessment/plan sacral stage 2 decubitus wound wound is clean and dry with no clinical signs of infection. Wound care: apply duoderm to area and change qMWF or PRN if soiled or removed. Avoid direct pressure over area, recommend air mattress. Offload with wedge pillow. COVID 19 respiratory failure continue O2 supplementation. Wean as tolerated. ESRD on HD, leucocytosis, transaminitis -medical management per primary team -continue to monitor CBC and BMP -Plan of care discussed with Dr. Merritt Thank you for consultation. at 1603 RPT #: [id number] END OF REPORT [facility] 2021-04-10 15:08:00 [facility]) Pulmonology Progress Note REPORT#:[id number] REPORT STATUS: Signed DATE:04/10/21 TIME:1508 PATIENT: IRA RAYA UNIT #: [id number] ROOM/BED: [place] [address] : 53 AGE: 65 SEX: M ATTEND: Mandy Devlin MD ADM AUTHOR: Noé Granado MD * ALL edits or amendments must be made on the electronic/computer document * Subjective Chief Complaint: patient is awake , no distress Tolerating nasal canula on levophed Objective General VS/I O: Last Documented: Result Date Time Pulse Ox 96 04/10 1215 B/P 129/58 04/10 1215 B/P Mean 84 04/10 1215 Pulse 102 04/10 1215 Resp 18 04/10 1215 Temp 36.7 04/10 1200 O2 Delivery High flow nasal cannula 04/10 0949 O2 Flow Rate 5 04/10 0949 FiO2 40 04/10 0830 24 hour I O ending at 0700: 04/10 0700 04/09 1900 Intake Total 332.30 Output Total 1999 Balance -1667.70 Intake, IV 332.30 Output, 1999 Hemodialysis PATIENT WEIGHT: Weight (lb): Weight (oz): Weight (kg): 136.400 Medications: Active Meds + DC'd Last 24 Hrs Hydrocortisone Sodium Succinate (Solu-CORTEF) 100 MG Q8HR IV Midodrine (PROAMATINE) 10 MG TID PO Mupirocin (BACTROBAN NASAL-ADULT ICU/JAYLAN MRSA PATIENTS) 1 APPLIC BID NASAL Norepinephrine Bitartrate (Levophed 16 MG/250 ML NS) 250 ML ASDIR IV Sodium Chloride (0.9% Sodium Chloride) 250 ML ONCE ONE IV Allopurinol (ZYLOPRIM) 100 MG BEDTIME PO Cinacalcet (SENSIPAR) 30 MG BEDTIME PO Amiodarone HCl (Nexterone 360 MG/200 Ml Bag) 200 ML ASDIR IV (CKD) Apixaban (ELIQUIS) 5 MG BID PO Mannitol (MANNITOL 25%) 12.5 GM BOLUS PRN IV Sodium Chloride (0.9% Sodium Chloride) 2,000 ML .Q24H PRN IV Docusate Sodium (COLACE) 100 MG BID PO Methylprednisolone Sodium Succinate (Solu-MEDROL) 40 MG Q12HR IV (DC) Midodrine (PROAMATINE) 5 MG TID PO (DC) Senna (SENOKOT) 1 TAB BID PO (CKD) Albumin Human (OPTISON) 3 ML ONCE PRN IV Sevelamer Carbonate (RENVELA) 800 MG C MEALS PO Insulin Human Lispro (HUMALOG) S/SCALE LOW AC HS SUBQ Pantoprazole (PROTONIX) 40 MG DAILY@0600 PO Iopamidol (ISOVUE-370) 100 ML ONCE PRN IV Dextrose/Water (Dextrose 50% W SYRINGE) 50 ML ASDIR PRN IV (CKD) Acetaminophen (TYLENOL) 650 MG Q4H PRN PRN PO Cefepime HCl (MAXIPIME) 1 GM Q24H IV Sterile Water (WATER FOR INJECTION) 10 ML Hydrocodone Bitart/Acetaminophen (NORCO 5/325) 1 TAB Q4H PRN PRN PO Ondansetron HCl (ZOFRAN) 4 MG Q6H PRN PRN IV Physical Exam Head/eyes: EOMI ENT: ENT: normal pharynx Neck: normal thyroid Cardiovascular: irregular rhythm Respiratory/chest: decreased breath sounds Abdomen: non-tender Genitourinary: no flank pain Lymphatics: no lymphadenopathy Results Findings/Data: Laboratory Tests 04/10 1152 Blood Gas Puncture Site (DESCRIPTION ARTKIT) Right Radial ABG pH (7.35 - 7.45 pH units) 7.37 ABG pCO2 (35 - 45 mmHg) 35 ABG pO2 (80 - 100 mmHg) 123 H ABG PO2/FiO2 Ratio (200 mm/Hg) 307.5 ABG HCO3 (22.0 - 26.0 mmol/L) 20.0 L ABG O2 Saturation (90 - 100 %) 98 ABG Base Excess (-3.0 - 3.0 mmol/L) -4.5 L Michelle Test (POSITIVE Circ.CHK) Yes Vent Mode (Vent Mode Descript) Nasal Cannula FiO2 (21 - 100 % (calc)) 40 Laboratory Tests 04/10 04/10 04/09 1151 0815 2034 Chemistry POC Glucose (70 - 110 mg/dL) 162 H 119 H 116 H Radiology data: Recent Impressions: RADIOLOGY - XR CHEST 1 V 04/10 0639 Report Impression - Status: SIGNED Entered: 04/10/2021 0734 IMPRESSION: Slightly decreased opacities. Impression By: Jefferson Acevedo M.D. Diagnosis, Assessment Plan Free Text A P: 1. Hypercapnic hypoxic respiratory failure 2. Atrial fibrillation with rapid ventricular response 3, COPD with acute exacerbation 4. Recent Covid infection 5. End-stage renal disease on hemodialysis Plan: He is on 5 L nasal cannula now On pressors , taper Levophed Continue steroids switch to hydrocortisone 100 mg 8 hours Midodrine start 10 mg TID Continue Eliquis Continue antibiotics Hemodialysis per schedule Chest x-ray reviewed and stable Consultants: cardiology, infectious disease, nephrology, pulmonary at 1510 [facility] #: [id number] END OF REPORT [facility] 2021-04-10 13:00:00 [facility] ([facility]) Hospitalist Progress Note REPORT#:[id number] REPORT STATUS: Signed DATE:04/10/21 TIME:1300 PATIENT: IRA RAYA UNIT #: [id number] ROOM/BED: [place] [address] : 53 AGE: 65 SEX: M ATTEND: Mandy Devlin MD ADM AUTHOR: Rome Tyler MD * ALL edits or amendments must be made on the electronic/computer document * Subjective Chief Complaint: Altered mental status hypoxia and A. fib Comments: Patient lying on the bed is much more alert and awake. Alert to his name medical problems as not sure about current location as he thinks that he might be in senior care. Still on low-dose vasopressors. Objective General VS/I O: Vital Signs: Date Time Temp Pulse Resp B/P B/P Pulse O2 O2 Flow FiO2 Mean Ox Delivery Rate 04/10 1215 102 18 129/58 84 96 10 1200 36.7 99 13 120/57 82 99 10 1154 36.7 10 1145 100 17 126/56 80 98 10/ 1130 102 20 120/66 87 99 10/ 1115 119 16 110/63 80 98 10/ 1101 114 19 104/52 75 91 10/ 1045 108 14 114/62 78 98 10/ 1030 105 18 110/59 80 99 10/ 1002 105 17 99/67 79 10/ 0949 High flow 5 nasal cannula 04/10 0945 104 21 114/54 78 10/ 0930 104 25 102/52 73 10/ 0915 108 15 110/64 80 10/ 0900 106 18 123/61 88 10/ 0845 102 15 125/62 89 10/ 0830 97 10 130/64 89 10/ 0830 98 Nasal 5 40 cannula 04/10 0815 98 11 116/68 83 78 10/ 0800 36.2 100 20 107/59 79 90 10 0745 99 18 104/60 76 91 10/ 0731 99 16 95/58 72 92 10/ 0716 130 17 101/72 80 71 10/01 0700 101 9 132/62 89 90 10/ 0426 102 18 90 10/ 0415 103 17 126/60 86 89 10/ 0414 103 92 50 10/ 0400 110 18 131/64 88 93 10/ 0345 119 18 136/69 89 92 10/ 0330 107 18 119/55 75 86 10/ 0315 114 25 76 10/ 0300 113 20 127/78 99 97 10/ 0245 115 8 127/80 99 96 10/ 0230 111 14 117/67 88 94 10/ 0227 38 105/71 84 97 10/ 0224 115 14 106/59 81 81 10/ 0216 115 16 10/01 0215 120 25 84 10/01 0201 118 13 79/45 53 89 10/01 0200 127 15 88 10/ 0146 118 23 101/56 77 89 10/01 0130 108 18 110/56 77 94 10/ 0115 113 10 114/55 79 95 10/ 0100 116 24 104/52 67 91 10/ 0045 121 14 92/53 65 98 10/01 0030 115 20 101/54 74 95 10/01 0015 141 30 99/62 74 75 10/01 0000 116 21 91/53 68 92 09/30 2350 121 93 40 30 2245 105 17 101/52 71 93 /30 2230 108 24 105/56 76 /30 2200 108 14 91/43 62 98 /30 2145 108 21 87/46 64 95 /30 2130 107 20 107/52 75 95 /30 2115 113 16 99/46 67 95 30 2101 131 15 112/56 79 67 30 2100 133 16 95 30 2045 115 23 87/58 68 91 30 2031 107 22 88/41 59 89 04/09 2030 104 13 91 04/09 2025 93 Nasal 5 40 cannula 04/09 2015 111 20 93/54 68 88 04/09 2000 37.0 04/09 2000 Nasal 5 cannula 04/09 1945 106 15 91/51 63 30 1930 111 22 92/55 69 30 1915 106 15 102/55 75 30 1901 114 17 103/55 76 30 1830 117 14 99/55 72 04/09 1815 114 8 112/61 83 100 04/09 1800 112 15 114/55 74 100 04/09 1756 113 17 152/62 89 100 04/09 1700 113 12 105/60 77 100 04/09 1656 114 27 110/52 75 100 04/09 1650 108 121/82 97 100 04/09 1645 114 129/57 81 99 /30 1640 118 19 103/51 73 100 30 1636 114 7 128/67 87 100 04/09 1630 114 16 105/61 76 100 30 1625 106 13 105/59 79 99 /30 1620 122 28 92/58 68 100 /30 1616 123 25 93/71 79 100 09/30 1610 119 23 82/51 59 100 09/30 1605 107 11 102/52 74 99 09/30 1601 107 21 113/47 64 100 /30 1556 113 21 92/52 71 100 /30 1550 118 27 107/60 77 99 09/30 1545 105 21 109/53 76 100 / 1541 109 32 116/53 77 100 / 1538 106 29 147/92 109 100 04/09 1533 125 18 73/51 57 100 04/09 1530 117 21 81/43 53 100 04/09 1516 128 22 80/52 60 99 04/09 1506 High flow 6 nasal cannula 04/09 1500 115 18 103/65 79 96 04/09 1446 116 19 84/61 69 04/09 1436 113 18 80/51 61 93 04/09 1435 116 15 77/41 54 94 04/09 1434 116 16 103/41 59 94 04/09 1430 117 19 76/48 58 94 04/09 1415 111 17 100/55 70 98 04/09 1400 121 14 62/37 45 95 04/09 1345 113 17 93/45 65 98 04/09 1330 116 16 101/52 69 100 04/09 1315 113 16 107/51 73 97 24 hour I O ending at 0700: 04/10 0700 04/09 1900 Intake Total 332.30 Output Total 1999 Balance -1667.70 Intake, IV 332.30 Output, 1999 Hemodialysis PATIENT WEIGHT: Weight (lb): Weight (oz): Weight (kg): 136.400 Medications: Active Meds + DC'd Last 24 Hrs Hydrocortisone Sodium Succinate (Solu-CORTEF) 100 MG Q8HR IV Midodrine (PROAMATINE) 10 MG TID PO Mupirocin (BACTROBAN NASAL-ADULT ICU/JAYLAN MRSA PATIENTS) 1 APPLIC BID NASAL Norepinephrine Bitartrate (Levophed 16 MG/250 ML NS) 250 ML ASDIR IV Sodium Chloride (0.9% Sodium Chloride) 250 ML ONCE ONE IV Allopurinol (ZYLOPRIM) 100 MG BEDTIME PO Cinacalcet (SENSIPAR) 30 MG BEDTIME PO Amiodarone HCl (Nexterone 360 MG/200 Ml Bag) 200 ML ASDIR IV (CKD) Apixaban (ELIQUIS) 5 MG BID PO Mannitol (MANNITOL 25%) 12.5 GM BOLUS PRN IV Sodium Chloride (0.9% Sodium Chloride) 2,000 ML .Q24H PRN IV Docusate Sodium (COLACE) 100 MG BID PO Methylprednisolone Sodium Succinate (Solu-MEDROL) 40 MG Q12HR IV (DC) Midodrine (PROAMATINE) 5 MG TID PO (DC) Senna (SENOKOT) 1 TAB BID PO (CKD) Albumin Human (OPTISON) 3 ML ONCE PRN IV Sevelamer Carbonate (RENVELA) 800 MG C MEALS PO Insulin Human Lispro (HUMALOG) S/SCALE LOW AC HS SUBQ Pantoprazole (PROTONIX) 40 MG DAILY@0600 PO Iopamidol (ISOVUE-370) 100 ML ONCE PRN IV Dextrose/Water (Dextrose 50% W SYRINGE) 50 ML ASDIR PRN IV (CKD) Acetaminophen (TYLENOL) 650 MG Q4H PRN PRN PO Cefepime HCl (MAXIPIME) 1 GM Q24H IV Sterile Water (WATER FOR INJECTION) 10 ML Hydrocodone Bitart/Acetaminophen (NORCO 5/325) 1 TAB Q4H PRN PRN PO Ondansetron HCl (ZOFRAN) 4 MG Q6H PRN PRN IV Physical Exam General appearance: alert, awake, oriented (time 1-2) Head/Eyes: atraumatic, normocephalic ENT: on NRB mask Neck: supple/no meningismus, no JVD Cardiovascular: irregularly irregular, tachycardic Respiratory: hypoxia, on oxygen (15L NRB), aerating well, symmetric expansion Abdomen: obese, non-tender, soft Extremities: moves all, no edema Neuro/GRAIN ELEVATOR MOTOR STARTER: alert (still not orietned x3) Psychiatry: normal affect, normal judgment/insight Results Findings/Data: Laboratory Tests 04/10 1152 Blood Gas Puncture Site (DESCRIPTION ARTKIT) Right Radial ABG pH (7.35 - 7.45 pH units) 7.37 ABG pCO2 (35 - 45 mmHg) 35 ABG pO2 (80 - 100 mmHg) 123 H ABG PO2/FiO2 Ratio (200 mm/Hg) 307.5 ABG HCO3 (22.0 - 26.0 mmol/L) 20.0 L ABG O2 Saturation (90 - 100 %) 98 ABG Base Excess (-3.0 - 3.0 mmol/L) -4.5 L Michelle Test (POSITIVE Circ.CHK) Yes Vent Mode (Vent Mode Descript) Nasal Cannula FiO2 (21 - 100 % (calc)) 40 Laboratory Tests 04/10 04/10 04/09 04/09 1151 0815 2035 1339 Chemistry POC Glucose (70 - 110 mg/dL) 162 H 119 H 116 H 108 Radiology data: Recent Impressions: RADIOLOGY - XR CHEST 1 V 04/10 0639 Report Impression - Status: SIGNED Entered: 04/10/2021 0734 IMPRESSION: Slightly decreased opacities. Impression By: [email or web address] - Juanito Acevedo M.D. Results: labs reviewed, x-ray personally reviewed, current med profile rev'd Diagnosis, Assessment Plan Problem List/A P: 1. Acute on chronic respiratory failure with hypoxia - previously on 2L at rehab, now on 15L NRB - admit to IM for close monitoring under continuous telemetry - pt is vaccinated, initially dx with COVID-19 on 03/20, test still positive here - possible superimposed bacterial PNA vs HCAP PNA - will also get CTA Chest to rule out PE - empiric IV Vanc and Cefepime abx, follow cultures - IV solumedrol 40mg BID - consult Infectious Disease - consult Pulmonology 2. Pneumonia due to COVID-19 virus - as above 3. New onset a-fib - new onset Afib with RVR HR currently 110s-120s, will give IV metoprolol 5mgx1 - check serum electrolytes, TSH - check echocardiogram - consult Cardiology 4. ESRD on dialysis - hx of ESRD on TuThSat HD - will consult Nephrology ot arrange inpatient HD 5. Chronic hypotension - continue home midodrine Consultants: cardiology, infectious disease, nephrology, pulmonary Free Text DxA P Notes Free text DxA P notes: DVT prophylaxis- continue home Eliquis 04/08 Acute on chronic hypoxic respiratory failure Recent Covid suspicion for HCAP Infectious disease and pulmonary on board Continue broad-spectrum antibiotics vancomycin and cefepime Follow infectious work-up Oxygenation slowly improving Also get speech therapy evaluation Intermittent BiPAP as per pulmonary Continue with steroids A. fib with RVR Cardiology on board. Currently on amiodarone drip. Continue with Eliquis Echo pending End-stage renal disease on dialysis Continue dialysis as per nephrology There might be some element of fluid overload Altered mental status probably metabolic encephalopathy Do not have baseline mental status but slowly seems to be improving. CT head was negative for any acute changes. History of coronary artery disease Follow-up with cardiology monitor on telemetry History of gout Continue with home medication DVT prophylaxis Patient is full code 04/09 Acute on chronic hypoxic respiratory failure Recent Covid plus element of superimposed bacterial infection with HCAP Infectious disease and pulmonary on board Continue broad-spectrum antibiotics vancomycin and cefepime Follow infectious work-up Oxygenation slowly improving Also get speech therapy evaluation will be going for modified barium swallow Intermittent BiPAP as per pulmonary Continue with steroids A. fib with RVR Cardiology on board. Currently on amiodarone drip. Continue with Eliquis Echo pending Shock Not sure if it is related to sepsis versus just being dialyzed and with amiodarone. Continue pressors titrate to keep map above 65. End-stage renal disease on dialysis Continue dialysis as per nephrology There might be some element of fluid overload. Seems to be improving. Altered mental status probably metabolic encephalopathy Do not have baseline mental status but slowly seems to be improving. CT head was negative for any acute changes. History of coronary artery disease Follow-up with cardiology monitor on telemetry History of gout Continue with home medication DVT prophylaxis Patient is full code Spent 31 minutes of critical care time in evaluating examining reviewing chart and the imaging and management and discussing with the patient and the consultants 04/10 Acute on chronic hypoxic respiratory failure Recent Covid plus element of superimposed bacterial infection with HCAP Infectious disease and pulmonary on board Continue cefepime Follow infectious work-up Oxygenation slowly improving now on 4 L Speech therapy evaluated and start the patient on oral diet Intermittent BiPAP as per pulmonary Continue with steroids A. fib with RVR Cardiology on board. Currently on amiodarone drip. Continue with Eliquis Echo pending Shock Not sure if it is related to sepsis versus just related to dialysis and with amiodarone plus some element of adrenal insufficiency. Continue pressors titrate to keep map above 65. Pulmonary started the patient on stress dose steroids End-stage renal disease on dialysis Continue dialysis as per nephrology There might be some element of fluid overload. Seems to be improving. Altered mental status probably metabolic encephalopathy Do not have baseline mental status but slowly seems to be improving. CT head was negative for any acute changes. History of coronary artery disease Follow-up with cardiology monitor on telemetry History of gout Continue with home medication DVT prophylaxis Patient is full code Spent 31 minutes of critical care time in evaluating examining reviewing chart and the imaging and management and discussing with the patient and the consultants at 1305 RPT #: [id number] END OF REPORT [facility] 2021-04-10 12:43:00 [facility] ([facility]) Nephrology Progress Note REPORT#:[id number] REPORT STATUS: Signed DATE:04/10/21 TIME:1243 PATIENT: IRA RAYA UNIT #: [id number] ROOM/BED: [place] [address] : 54 AGE: 65 SEX: M ATTEND: Mandy Devlin MD ADM AUTHOR: Genaro Gupta MD * ALL edits or amendments must be made on the electronic/computer document * Subjective Chief Complaint: ESRD Comments: Denies shortness of breath, chest pain. Patient had hemodialysis yesterday Review of Systems Free Text ROS Notes Free Text ROS Notes: Review of Systems: Ten point review of systems have been performed. Positive and negative pertinent systems have been identified in subjective/history and physical, otherwise negative. Objective General VS/I O: Vital Signs: Date Time Temp Pulse Resp B/P B/P Pulse O2 O2 Flow FiO2 Mean Ox Delivery Rate 04/10 1215 102 18 129/58 84 96 04/10 1200 36.7 99 13 120/57 82 99 04/10 1154 36.7 04/10 1145 100 17 126/56 80 98 04/10 1130 102 20 120/66 87 99 04/10 1115 119 16 110/63 80 98 04/10 1101 114 19 104/52 75 91 10 1045 108 14 114/62 78 98 04/10 1030 105 18 110/59 80 99 04/10 1002 105 17 99/67 79 04/10 0949 High flow 5 nasal cannula 04/10 0945 104 21 114/54 78 04/10 0930 104 25 102/52 73 10/ 0915 108 15 110/64 80 10/ 0900 106 18 123/61 88 04/10 0845 102 15 125/62 89 04/10 0830 97 10 130/64 89 / 0830 98 Nasal 5 40 cannula 04/10 0815 98 11 116/68 83 78 10/ 0800 36.2 100 20 107/59 79 90 04/10 0745 99 18 104/60 76 91 10/ 0731 99 16 95/58 72 92 / 0716 130 17 101/72 80 71 / 0700 101 9 132/62 89 90 10 0426 102 18 90 10/ 0415 103 17 126/60 86 89 10/01 0414 103 92 50 10/01 0400 110 18 131/64 88 93 10/01 0345 119 18 136/69 89 92 10/01 0330 107 18 119/55 75 86 10/01 0315 114 25 76 10/01 0300 113 20 127/78 99 97 10/01 0245 115 8 127/80 99 96 10/01 0230 111 14 117/67 88 94 10/01 0227 38 105/71 84 97 10/01 0224 115 14 106/59 81 81 10/01 0216 115 16 10/01 0215 120 25 84 10/01 0201 118 13 79/45 53 89 10/01 0200 127 15 88 10/01 0146 118 23 101/56 77 89 10/01 0130 108 18 110/56 77 94 10/01 0115 113 10 114/55 79 95 10/01 0100 116 24 104/52 67 91 10/01 0045 121 14 92/53 65 98 10/01 0030 115 20 101/54 74 95 10/01 0015 141 30 99/62 74 75 10/01 0000 116 21 91/53 68 92 09/30 2350 121 93 40 /30 2245 105 17 101/52 71 93 /30 2230 108 24 105/56 76 /30 2200 108 14 91/43 62 98 /30 2145 108 21 87/46 64 95 /30 2130 107 20 107/52 75 95 /30 2115 113 16 99/46 67 95 /30 2101 131 15 112/56 79 67 /30 2100 133 16 95 /30 2045 115 23 87/58 68 91 /30 2031 107 22 88/41 59 89 /30 2030 104 13 91 30 2025 93 Nasal 5 40 cannula 04/09 2015 111 20 93/54 68 88 /30 1999 37.0 30 1999 Nasal 5 cannula 04/09 1945 106 15 91/51 63 /30 1930 111 22 92/55 69 /30 1915 106 15 102/55 75 /30 1901 114 17 103/55 76 /30 1830 117 14 99/55 72 30 1815 114 8 112/61 83 100 /30 1800 112 15 114/55 74 100 09/30 1756 113 17 152/62 89 100 04/09 1700 113 12 105/60 77 100 04/09 1656 114 27 110/52 75 100 04/09 1650 108 121/82 97 100 04/09 1645 114 129/57 81 99 04/09 1640 118 19 103/51 73 100 04/09 1636 114 7 128/67 87 100 04/09 1630 114 16 105/61 76 100 04/09 1625 106 13 105/59 79 99 04/09 1620 122 28 92/58 68 100 04/09 1616 123 25 93/71 79 100 04/09 1610 119 23 82/51 59 100 04/09 1605 107 11 102/52 74 99 04/09 1601 107 21 113/47 64 100 04/09 1556 113 21 92/52 71 100 04/09 1550 118 27 107/60 77 99 04/09 1545 105 21 109/53 76 100 04/09 1541 109 32 116/53 77 100 04/09 1538 106 29 147/92 109 100 04/09 1533 125 18 73/51 57 100 04/09 1530 117 21 81/43 53 100 04/09 1516 128 22 80/52 60 99 04/09 1506 High flow 6 nasal cannula 04/09 1500 115 18 103/65 79 96 04/09 1446 116 19 84/61 69 04/09 1436 113 18 80/51 61 93 04/09 1435 116 15 77/41 54 94 04/09 1434 116 16 103/41 59 94 04/09 1430 117 19 76/48 58 94 04/09 1415 111 17 100/55 70 98 04/09 1400 121 14 62/37 45 95 04/09 1345 113 17 93/45 65 98 04/09 1330 116 16 101/52 69 100 04/09 1315 113 16 107/51 73 97 04/09 1300 114 10 97/60 67 100 04/09 1245 115 14 94/53 64 99 24 hour I O ending at 0700: 04/10 0700 04/09 1900 Intake Total 332.30 Output Total 1999 Balance -1667.70 Intake, IV 332.30 Output, 1999 Hemodialysis Medications Active Meds + DC'd Last 24 Hrs Hydrocortisone Sodium Succinate (Solu-CORTEF) 100 MG Q8HR IV Midodrine (PROAMATINE) 10 MG TID PO Mupirocin (BACTROBAN NASAL-ADULT ICU/JAYLAN MRSA PATIENTS) 1 APPLIC BID NASAL Norepinephrine Bitartrate (Levophed 16 MG/250 ML NS) 250 ML ASDIR IV Sodium Chloride (0.9% Sodium Chloride) 250 ML ONCE ONE IV Allopurinol (ZYLOPRIM) 100 MG BEDTIME PO Cinacalcet (SENSIPAR) 30 MG BEDTIME PO Amiodarone HCl (Nexterone 360 MG/200 Ml Bag) 200 ML ASDIR IV (CKD) Apixaban (ELIQUIS) 5 MG BID PO Mannitol (MANNITOL 25%) 12.5 GM BOLUS PRN IV Sodium Chloride (0.9% Sodium Chloride) 2,000 ML .Q24H PRN IV Docusate Sodium (COLACE) 100 MG BID PO Methylprednisolone Sodium Succinate (Solu-MEDROL) 40 MG Q12HR IV (DC) Midodrine (PROAMATINE) 5 MG TID PO (DC) Senna (SENOKOT) 1 TAB BID PO (CKD) Albumin Human (OPTISON) 3 ML ONCE PRN IV Sevelamer Carbonate (RENVELA) 800 MG C MEALS PO Insulin Human Lispro (HUMALOG) S/SCALE LOW AC HS SUBQ Pantoprazole (PROTONIX) 40 MG DAILY@0600 PO Iopamidol (ISOVUE-370) 100 ML ONCE PRN IV Dextrose/Water (Dextrose 50% W SYRINGE) 50 ML ASDIR PRN IV (CKD) Acetaminophen (TYLENOL) 650 MG Q4H PRN PRN PO Cefepime HCl (MAXIPIME) 1 GM Q24H IV Sterile Water (WATER FOR INJECTION) 10 ML Hydrocodone Bitart/Acetaminophen (NORCO 5/325) 1 TAB Q4H PRN PRN PO Ondansetron HCl (ZOFRAN) 4 MG Q6H PRN PRN IV Physical Exam General appearance: awake, oriented Head/eyes: PERRL ENT: normal nose Neck: full range of motion, no bruit/NL carotids, no JVD C-Spine clearance: no midline tenderness Cardiovascular: normal heart sounds, no murmur Respiratory: clear to auscultation, no distress Abdomen: non-tender, soft Genitourinary: no gómez Extremities: normal inspection, no edema Musculoskeletal: full range of motion Neuro/GRAIN ELEVATOR MOTOR STARTER: oriented X 3 Results Findings/Data: Laboratory Tests 04/10 1152 Blood Gas Puncture Site (DESCRIPTION ARTKIT) Right Radial ABG pH (7.35 - 7.45 pH units) 7.37 ABG pCO2 (35 - 45 mmHg) 35 ABG pO2 (80 - 100 mmHg) 123 H ABG PO2/FiO2 Ratio (200 mm/Hg) 307.5 ABG HCO3 (22.0 - 26.0 mmol/L) 20.0 L ABG O2 Saturation (90 - 100 %) 98 ABG Base Excess (-3.0 - 3.0 mmol/L) -4.5 L Michelle Test (POSITIVE Circ.CHK) Yes Vent Mode (Vent Mode Descript) Nasal Cannula FiO2 (21 - 100 % (calc)) 40 Laboratory Tests 04/10 04/10 04/09 04/09 1151 0815 2035 1339 Chemistry POC Glucose (70 - 110 mg/dL) 162 H 119 H 116 H 108 Radiology data: Recent Impressions: RADIOLOGY - XR CHEST 1 V 04/10 0639 Report Impression - Status: SIGNED Entered: 04/10/2021 0734 IMPRESSION: Slightly decreased opacities. Impression By: Jefferson Acevedo M.D. Diagnosis, Assessment Plan Free Text A P: 1. end-stage renal disease on hemodialysis. Hemodialysis on Tuesday and Tuesday. Last Hemodialysis 04/09 2. history of hypertension. 3. Recent COVID-19 infection. 4. AFib with RVR. 5. pneumonia. 6. hypercapnic respiratory failure. 7. COPD exacerbation. Recommendations. 04/10: No need for HD today. Renal diet. 04/09: HD today. 04/08: NO need for HD today. 04/07: Hemodialysis today, fluid removal as tolerated, target 2 L.. Renal restriction once patient is able to tolerate p.o.. Limit fluid to 1 L a day. No need for Epogen Drug dose adjustment to GFR. Avoid use of nephrotoxic medications/NSAIDs. Thank you for the consultation, any question please call [phone] Consultants: cardiology, infectious disease, nephrology, pulmonary Plan discussed with: primary care physician, nurse at 1245 RPT #: [id number] END OF REPORT [facility] 2021-04-10 11:54:00 [facility] ([facility]) Infectious Dis. Progress Note REPORT#:[id number] REPORT STATUS: Signed DATE:04/10/21 TIME:1154 PATIENT: IRA RAYA UNIT #: [id number] ROOM/BED: [place] [address] : 54 AGE: 65 SEX: M ATTEND: Mandy Devlin MD ADM AUTHOR: Arnold Nance MD * ALL edits or amendments must be made on the electronic/computer document * Subjective Chief Complaint: HCAP HPI: WBC not back this am, it had increased yesterday. O2 requirements have decreased. Review of Systems Constitutional: Denies: fever. Objective General VS/I O: Last Documented: Result Date Time Temp 36.7 04/10 1154 B/P 99/67 04/10 1002 B/P Mean 79 04/10 1002 Pulse 105 04/10 1002 Resp 17 04/10 1002 O2 Delivery High flow nasal cannula 04/10 0949 O2 Flow Rate 5 04/10 0949 Pulse Ox 98 04/10 0830 FiO2 40 04/10 0830 Vital Signs Date Temp Pulse Resp B/P B/P Mean Pulse Ox FiO2 04/09-04/10 36.2-37.0 97-141 7-38 62-152/37-92 45-109 67-100 40-50 24 hour I O ending at 0700: 04/10 0700 04/09 1900 Intake Total 332.30 Output Total 1999 Balance -1667.70 Intake, IV 332.30 Output, 1999 Hemodialysis PATIENT WEIGHT: Weight (lb): Weight (oz): Weight (kg): 136.400 Physical Exam General appearance: awake Head/Eyes: atraumatic, EOMI, normal conjunctiva/sclera, normal eyelids/periorb, normocephalic Cardiovascular: tachycardia Respiratory: on oxygen, shortness of breath, symmetric expansion Abdomen: non-tender, normal bowel sounds, soft, no CVA tenderness, no distention , no guarding, no mass/organomegaly, no rebound Extremities: normal temperature, no clubbing, no cyanosis Musculoskeletal: no joint swelling Neuro/GRAIN ELEVATOR MOTOR STARTER: alert, oriented X 3, normal speech Skin: dry, intact, normal color, no rash Diagnosis, Assessment Plan Free Text A P: Laboratory Tests 04/09/21 0517: [Embedded Image Not Available] 04/07 MRSA neg Imaging: CTA GGOs, no PE 04/07 CXR b/l infiltrates 04/06 TTE reviewed Assessment: 1. Sepsis. 2. Probable HCAP. 3. Acute respiratory failure with hypoxia due to PNA vs. pulmonary congestion. 4. Recent covid-19. Vaccinated. 5. ESRD. 6. Afib with RVR. 7. Sacral stage 2 decubitus wound. Plan: 1. Continue empiric cefepime (day 4 of 7). Can switch to cefdinir 300 mg po after each HD when ready for discharge. 2. High WBC could be due to steroids as respiratory status is improving and blood cxs are neg. Will monitor. 3. Wound care. 4. Dialysis per renal. at 1342 RPT #: [id number] END OF REPORT [facility] 2021-04-09 20:16:00 [facility] ([facility]) Nephrology Progress Note REPORT#:[id number] REPORT STATUS: Signed DATE:04/09/21 TIME:2015 PATIENT: IRA RAYA UNIT #: [id number] ROOM/BED: [place] [address] : 54 AGE: 65 SEX: M ATTEND: Mandy Devlin MD ADM AUTHOR: Genaro Gupta MD * ALL edits or amendments must be made on the electronic/computer document * Subjective Chief Complaint: ESRD Comments: Denies SOB Review of Systems Free Text ROS Notes Free Text ROS Notes: 10 point review of system performed documented subjective, otherwise negative. Objective General VS/I O: Vital Signs: Date Time Temp Pulse Resp B/P B/P Pulse O2 O2 Flow FiO2 Mean Ox Delivery Rate 04/09 1915 106 15 102/55 75 04/09 1901 114 17 103/55 76 04/09 1830 117 14 99/55 72 04/09 1815 114 8 112/61 83 100 04/09 1800 112 15 114/55 74 100 09/30 1756 113 17 152/62 89 100 09/30 1700 113 12 105/60 77 100 09/30 1656 114 27 110/52 75 100 09/30 1650 108 121/82 97 100 09/30 1645 114 129/57 81 99 09/30 1640 118 19 103/51 73 100 09/30 1636 114 7 128/67 87 100 /30 1630 114 16 105/61 76 100 09/30 1625 106 13 105/59 79 99 09/30 1620 122 28 92/58 68 100 04/09 1616 123 25 93/71 79 100 09/30 1610 119 23 82/51 59 100 09/30 1605 107 11 102/52 74 99 /30 1601 107 21 113/47 64 100 04/09 1556 113 21 92/52 71 100 04/09 1550 118 27 107/60 77 99 09/30 1545 105 21 109/53 76 100 04/09 1541 109 32 116/53 77 100 / 1538 106 29 147/92 109 100 04/09 1533 125 18 73/51 57 100 04/09 1530 117 21 81/43 53 100 /30 1516 128 22 80/52 60 99 /30 1506 High flow 6 nasal cannula 04/09 1500 115 18 103/65 79 96 /30 1446 116 19 84/61 69 30 1436 113 18 80/51 61 93 /30 1435 116 15 77/41 54 94 /30 1434 116 16 103/41 59 94 /30 1430 117 19 76/48 58 94 /30 1415 111 17 100/55 70 98 /30 1400 121 14 62/37 45 95 /30 1345 113 17 93/45 65 98 /30 1330 116 16 101/52 69 100 /30 1315 113 16 107/51 73 97 /30 1300 114 10 97/60 67 100 30 1245 115 14 94/53 64 99 /30 1230 117 17 89/52 69 99 09/30 1216 123 18 100/56 73 100 09/30 1201 123 16 100/61 74 100 09/30 1145 113 16 99/60 72 99 09/30 1131 117 15 93/73 79 100 09/30 1115 116 15 96/53 61 100 30 1114 High flow 6 nasal cannula 09/30 1100 115 17 97/63 75 100 09/30 1045 118 15 108/55 77 97 09/30 1030 120 14 115/57 80 98 09/30 1015 131 14 112/66 84 100 09/30 1000 118 14 106/69 83 100 09/30 0945 115 15 112/74 90 100 09/30 0930 116 15 115/57 80 100 09/30 0915 112 11 120/70 86 100 09/30 0900 108 13 124/67 90 99 09/30 0857 97 Nasal 6 cannula 30 0851 119 97 30 09/30 0851 100 BiPAP 30 /30 0845 115 13 123/69 89 98 09/30 0830 105 15 112/64 82 96 09/30 0815 110 17 105/67 81 97 09/30 0800 104 17 97/58 73 96 09/30 0745 110 16 106/57 77 95 09/30 0730 108 15 108/62 79 95 09/30 0715 105 18 99/59 71 98 09/30 0700 147 28 120/67 86 99 09/30 0630 117 19 89/51 66 97 09/30 0615 97/49 67 09/30 0600 112 16 112/53 77 93 09/30 0545 115 20 104/67 81 98 09/30 0530 117 16 95/51 70 92 09/30 0515 118 13 106/61 75 96 09/30 0500 125 18 109/55 73 97 09/30 0452 36.4 09/30 0445 111 21 113/62 82 97 09/30 0430 106 0 98/54 70 98 09/30 0415 107 18 105/57 75 99 09/30 0401 111 99 30 09/30 0400 111 4 112/58 77 100 09/30 0345 115 18 109/59 81 99 09/30 0330 129 17 109/57 71 100 09/30 0315 108 21 94/55 70 99 09/30 0300 110 22 103/52 75 99 09/30 0245 117 19 113/55 78 100 09/30 0230 107 16 98/47 68 100 09/30 0215 100 13 118/58 83 100 09/30 0200 105 13 115/58 80 100 09/30 0155 99 13 107/61 78 100 09/30 0145 113 16 66/32 42 96 09/30 0138 113 18 72/39 50 100 09/30 0115 121 17 82/60 66 97 / 0100 108 16 86/55 65 97 / 0053 112 10 101/52 75 99 / 0045 107 16 78/49 57 100 / 0031 109 17 80/50 60 98 / 0029 111 13 82/52 61 97 / 0027 36.4 / 0024 116 16 75/40 53 100 / 0021 123 17 72/36 48 98 / 0015 114 18 75/49 58 97 / 0006 118 19 80/52 62 97 / 0003 114 100 40 / 0000 36.7 04/09 0000 109 17 78/51 58 98 04/08 2330 117 12 81/59 66 100 04/08 2316 110 17 92/61 71 100 04/08 2315 109 16 87/55 67 100 04/08 2300 119 22 76/46 55 100 04/08 2230 116 16 82/52 61 99 04/08 2215 119 16 81/53 61 98 04/08 2200 120 17 83/52 62 95 04/08 2130 124 13 82/58 65 99 04/08 2100 125 15 91/54 69 98 04/08 2100 97 Nasal 5 40 cannula 04/08 2030 119 14 97/61 72 100 24 hour I O ending at 0700: 04/09 0700 04/08 1900 Intake Total 15 Output Total Balance 15 Intake, Oral 15 Medications Active Meds + DC'd Last 24 Hrs Mupirocin (BACTROBAN NASAL-ADULT ICU/JAYLAN MRSA PATIENTS) 1 APPLIC BID NASAL Norepinephrine Bitartrate (Levophed 16 MG/250 ML NS) 250 ML .STK-MED ONE IV (DC) Norepinephrine Bitartrate (Levophed 16 MG/250 ML NS) 250 ML ASDIR IV Midodrine (PROAMATINE) 5 MG ONCE ONE PO (DC) Sodium Chloride (0.9% Sodium Chloride) 250 ML ONCE ONE IV Allopurinol (ZYLOPRIM) 100 MG BEDTIME PO Cinacalcet (SENSIPAR) 30 MG BEDTIME PO Amiodarone HCl (Nexterone 360 MG/200 Ml Bag) 200 ML ASDIR IV (CKD) Apixaban (ELIQUIS) 5 MG BID PO Albumin Human (ALBUMINAR-25% 12.5 GM/50 ML) 25 GM BOLUS PRN IV (DC) Mannitol (MANNITOL 25%) 12.5 GM BOLUS PRN IV Sodium Chloride (0.9% Sodium Chloride) 2,000 ML .Q24H PRN IV Docusate Sodium (COLACE) 100 MG BID PO Methylprednisolone Sodium Succinate (Solu-MEDROL) 40 MG Q12HR IV Midodrine (PROAMATINE) 5 MG TID PO Senna (SENOKOT) 1 TAB BID PO (CKD) Albumin Human (OPTISON) 3 ML ONCE PRN IV Sevelamer Carbonate (RENVELA) 800 MG C MEALS PO Insulin Human Lispro (HUMALOG) S/SCALE LOW AC HS SUBQ Pantoprazole (PROTONIX) 40 MG DAILY@0600 PO Iopamidol (ISOVUE-370) 100 ML ONCE PRN IV Dextrose/Water (Dextrose 50% W SYRINGE) 50 ML ASDIR PRN IV (CKD) Acetaminophen (TYLENOL) 650 MG Q4H PRN PRN PO Cefepime HCl (MAXIPIME) 1 GM Q24H IV Sterile Water (WATER FOR INJECTION) 10 ML Hydrocodone Bitart/Acetaminophen (NORCO 5/325) 1 TAB Q4H PRN PRN PO Ondansetron HCl (ZOFRAN) 4 MG Q6H PRN PRN IV Physical Exam General appearance: awake, partially oriented. Head/eyes: PERRL ENT: normal nose Neck: full range of motion, no bruit/NL carotids, no JVD C-Spine clearance: no midline tenderness Cardiovascular: normal heart sounds, no murmur Respiratory: clear to auscultation, no distress Abdomen: non-tender, soft Genitourinary: no gómez Extremities: normal inspection, no edema Musculoskeletal: full range of motion Neuro/GRAIN ELEVATOR MOTOR STARTER: disoriented Results Findings/Data: Laboratory Tests 04/09 04/09 04/09 1339 0517 0517 Chemistry Sodium (134 - 147 mmol/L) 137 Potassium (3.4 - 5.0 mmol/L) 4.3 Chloride (100 - 108 mmol/L) 102 Carbon Dioxide (21 - 32 mmol/L) 22 Anion Gap (4.0 - 15.0 GAP calc) 13.0 BUN (7 - 18 MG/DL) 54 H Creatinine (0.8 - 1.3 MG/DL) 9.0 H Glomerular Filtr Rate (>60 estGFR) 8 L Glucose (70 - 110 MG/DL) 136 H POC Glucose (70 - 110 mg/dL) 108 Calcium (8.5 - 10.1 MG/DL) 9.8 C-Reactive Protein (0.000 - 0.3 MG/DL) 2.690 H Laboratory Tests 04/09 0517 Hematology WBC (3.5 - 11.0 K/mm3) 20.8 H RBC (4.70 - 6.10 M/mm3) 5.20 Hgb (12.3 - 15.9 G/DL) 12.9 Hct (35.8 - 46.7 %) 44.2 MCV (86.3 - 98.9 Fl) 85.0 L MCH (28.9 - 34.4 pg) 24.8 L MCHC (32.1 - 34.5 G/DL) 29.2 L RDW (11.5 - 14.5 SD) 19.9 H Plt Count (150 - 450 K/mm3) 240 MPV (7.0 - 9.6 fL) 11.20 H Neut % (Auto) (40 - 76 %) 90.0 H Lymph % (Auto) (20.5 - 51.1 %) 3.1 L Haralson % (Auto) (1.7 - 9.3 %) 5.1 Eos % (Auto) (0.0 - 6.0 %) 0.0 Baso % (Auto) (0.0 - 2.0 %) 0.2 Neut # (Auto) (1.8 - 7.6 K/mm3) 18.7 H Lymph # (Auto) (0.6 - 3.0 K/mm3) 0.7 Haralson # (Auto) (0.2 - 1.5 K/mm3) 1.1 Eos # (Auto) (0.0 - 0.4 K/mm3) 0.0 Baso # (Auto) (0.0 - 0.2 K/mm3) 0.0 Abs Immat Gran (auto) (0.00 - 0.03 x10 3/uL) 0.34 H Add Manual Diff (CRITERIA DIFF/SCN) NO Immature Gran % (0.0 - 5.0 %) 1.6 Nucleated RBC % (0.0 - 1.0 /100WBC%) 1.0 Laboratory Tests 04/09 517 Toxicology Random Vancomycin (5 - 40 mcG/ML) 17.8 Diagnosis, Assessment Plan Free Text A P: 1. end-stage renal disease on hemodialysis. Hemodialysis on Tuesday and Tuesday. Last Hemodialysis (04/07), with fluid rmeoval of 1.8 L. 2. history of hypertension. 3. Recent COVID-19 infection. 4. AFib with RVR. 5. pneumonia. 6. hypercapnic respiratory failure. 7. COPD exacerbation. Recommendations. 04/09: HD today. 04/08: NO need for HD today. 04/07: Hemodialysis today, fluid removal as tolerated, target 2 L.. Renal restriction once patient is able to tolerate p.o.. Limit fluid to 1 L a day. No need for Epogen Drug dose adjustment to GFR. Avoid use of nephrotoxic medications/NSAIDs. Thank you for the consultation, any question please call [phone] Consultants: cardiology, infectious disease, nephrology, pulmonary at 2018 RPT #: [id number] END OF REPORT [facility] 2021-04-09 17:14:00 [facility] ([facility]) Infectious Dis. Progress Note REPORT#:[id number] REPORT STATUS: Signed DATE:04/09/21 TIME:1713 PATIENT: IRA RAYA UNIT #: [id number] ROOM/BED: [place] [address] : 54 AGE: 65 SEX: M ATTEND: Mandy Devlin MD ADM AUTHOR: Bridgett Ramos * ALL edits or amendments must be made on the electronic/computer document * Bridgett Ramos 04/09/21 171: Subjective Chief Complaint: HCAP HPI: Patient afebrile. Comfortable on 5L O2 via nasal cannula. Oriented to person, place and situation but not date/time. Appears fatigued. Tachycardic. WBC 20.8 increasing. Review of Systems Constitutional: Reports: fatigue. Denies: chills, fever. Objective General VS/I O: Last Documented: Result Date Time Pulse Ox 100 04/09 1700 B/P 105/60 04/09 1700 B/P Mean 77 04/09 1700 Pulse 113 04/09 1700 Resp 12 04/09 1700 O2 Delivery High flow nasal cannula 04/09 1506 O2 Flow Rate 6 04/09 1506 Temp 36.4 04/09 0452 FiO2 30 04/09 0401 Vital Signs Date Temp Pulse Resp B/P B/P Mean Pulse Ox FiO2 04/08-04/09 36.4-36.7 99-147 0-32 62-147/32-92 42-109 92-100 30-40 24 hour I O ending at 0700: 04/09 0700 04/08 1900 Intake Total 15 Output Total Balance 15 Intake, Oral 15 PATIENT WEIGHT: Weight (lb): Weight (oz): Weight (kg): 136.400 Physical Exam General appearance: respiratory support, alert, awake, oriented Head/Eyes: atraumatic, EOMI, normal conjunctiva/sclera, normal eyelids/periorb, normocephalic ENT: moist mucosal membranes, normal nose Respiratory: on oxygen, shortness of breath, symmetric expansion Extremities: normal temperature, no clubbing, no cyanosis Neuro/GRAIN ELEVATOR MOTOR STARTER: alert, oriented X 3, normal speech Skin: dry, intact, normal color, no rash Diagnosis, Assessment Plan Free Text A P: Laboratory Tests 04/09/21 0517: [Embedded Image Not Available] 04/07 MRSA neg Imaging: CTA GGOs, no PE 04/07 CXR b/l infiltrates 04/06 TTE reviewed Assessment: 1. Sepsis. 2. Probable HCAP. 3. Acute respiratory failure with hypoxia due to PNA vs. pulmonary congestion. 4. Recent covid-19. Vaccinated. 5. ESRD. 6. Afib with RVR. 7. Sacral stage 2 decubitus wound. Plan: 1. Continue empiric cefepime (day 3). As leukocytosis is increasing, will re- evaluate tomorrow. 2. Blood cxs neg at 48 hrs. 3. Steroids per pulmonary. 4. Monitor CBC, LFTs, inflammatory markers. Miles Nance 04/09/21 1935: Attestations Physician Attestation Reviewed findings plan: I evaluated the pt with DALE Ramos. I confirm the interval history, physical exam, lab results, assessment and plan. My personal evaluation is probable HCAP s/p recent covid-19. Plan: continue cefepime for now. Can complete 7 days. O2 support. at 1739 at 1936 RPT #: [id number] END OF REPORT [facility] 2021-04-09 16:51:00 [facility] ([facility]) Wound Care Progress Note REPORT#:[id number] REPORT STATUS: Signed DATE:04/09/21 TIME:1650 PATIENT: IRA RAYA UNIT #: [id number] ROOM/BED: [place] [address] : 53 AGE: 65 SEX: M ATTEND: Mandy Devlin MD ADM AUTHOR: Barbara Christensen * ALL edits or amendments must be made on the electronic/computer document * Subjective Chief Complaint: Patient seen and examined at [facility], no acute complaints. Objective General VS: Last Documented: Result Date Time Pulse Ox 100 04/09 1620 B/P 92/58 04/09 1620 B/P Mean 68 04/09 1620 Pulse 122 04/09 1620 Resp 28 04/09 1620 O2 Delivery High flow nasal cannula 04/09 1506 O2 Flow Rate 6 04/09 1506 Temp 36.4 04/09 0452 FiO2 30 04/09 0401 PATIENT WEIGHT: Weight (lb): Weight (oz): Weight (kg): 136.400 Medications: Active Meds + DC'd Last 24 Hrs Mupirocin (BACTROBAN NASAL-ADULT ICU/JAYLAN MRSA PATIENTS) 1 APPLIC BID NASAL Norepinephrine Bitartrate (Levophed 16 MG/250 ML NS) 250 ML .STK-MED ONE IV (DC) Norepinephrine Bitartrate (Levophed 16 MG/250 ML NS) 250 ML ASDIR IV Midodrine (PROAMATINE) 5 MG ONCE ONE PO (DC) Sodium Chloride (0.9% Sodium Chloride) 250 ML ONCE ONE IV Vancomycin HCl (VANCOMYCIN HCL) 1,000 MG MoWeFr@1700 IV (DC) Sodium Chloride (0.9% Sodium Chloride) 250 ML Allopurinol (ZYLOPRIM) 100 MG BEDTIME PO Cinacalcet (SENSIPAR) 30 MG BEDTIME PO Amiodarone HCl (Nexterone 360 MG/200 Ml Bag) 200 ML ASDIR IV (CKD) Apixaban (ELIQUIS) 5 MG BID PO Albumin Human (ALBUMINAR-25% 12.5 GM/50 ML) 25 GM BOLUS PRN IV (DC) Mannitol (MANNITOL 25%) 12.5 GM BOLUS PRN IV Sodium Chloride (0.9% Sodium Chloride) 2,000 ML .Q24H PRN IV Docusate Sodium (COLACE) 100 MG BID PO Methylprednisolone Sodium Succinate (Solu-MEDROL) 40 MG Q12HR IV Midodrine (PROAMATINE) 5 MG TID PO Senna (SENOKOT) 1 TAB BID PO (CKD) Albumin Human (OPTISON) 3 ML ONCE PRN IV Sevelamer Carbonate (RENVELA) 800 MG C MEALS PO Insulin Human Lispro (HUMALOG) S/SCALE LOW AC HS SUBQ Pantoprazole (PROTONIX) 40 MG DAILY@0600 PO Iopamidol (ISOVUE-370) 100 ML ONCE PRN IV Dextrose/Water (Dextrose 50% W SYRINGE) 50 ML ASDIR PRN IV (CKD) Acetaminophen (TYLENOL) 650 MG Q4H PRN PRN PO Cefepime HCl (MAXIPIME) 1 GM Q24H IV Sterile Water (WATER FOR INJECTION) 10 ML Hydrocodone Bitart/Acetaminophen (NORCO 5/325) 1 TAB Q4H PRN PRN PO Ondansetron HCl (ZOFRAN) 4 MG Q6H PRN PRN IV Nutrition assessment: The data set between the solid lines has been imported from the dietitian's assessment. Any exceptions have been noted under Provider comments. BMI Calculated: 40.8 Nutrition related diagnosis: Nutrition diagnosis details: Nutrition problem: Altered GI function Nutrition etiology: Swallowing difficulty Nutrition signs and symptoms: NPO; awaiting speech eval Nutrition prescription: Recommend speech pathology evaluation for swallowing safety. Recommend diet advancement vs enteral nutrition support. Will continue to monitor for nutritional plan of care. Dietitian name: Meseret Flores, DIET Assessment completed: 04/08/21 Provider comments on imported dietitian assessment: Physical Exam General appearance: obese, respiratory support Head/eyes: atraumatic, clear cornea ENT: moist mucosal membranes, normal dentition Neck: left central line Cardiovascular: normal heart sounds, regular rate rhythm Respiratory: no distress, symmetric expansion Wound Assessment Wound Assessment 1: Type/cause: pressure Wound location: sacral region Tissue layers: limited to skin breakdown Site condition: granulating Length (cm): 1.3 Width (cm): 0.5 Diagnosis, Assessment Plan Hosptial course to date: Assessment/plan sacral stage 2 decubitus wound wound is clean and dry with no clinical signs of infection. Wound care: apply duoderm to area and change qMWF or PRN if soiled or removed. Avoid direct pressure over area, recommend air mattress. Offload with wedge pillow. COVID 19 respiratory failure continue O2 supplementation. Wean as tolerated. ESRD on HD, leucocytosis, transaminitis -medical management per primary team -continue to monitor CBC and BMP -Plan of care discussed with Dr. Merritt Thank you for consultation. at 1653 RPT #: [id number] END OF REPORT [facility] 2021-04-09 15:51:00 [facility] ([facility]) Pulmonology Progress Note REPORT#:[id number] REPORT STATUS: Signed DATE:04/09/21 TIME:1551 PATIENT: IRA RAYA UNIT #: [id number] ROOM/BED: [place] [address] : 53 AGE: 65 SEX: M ATTEND: Mandy Devlin MD ADM AUTHOR: Alex Davis MD * ALL edits or amendments must be made on the electronic/computer document * Subjective Comments: No respiratory distress No vomiting No bleeding No rash Objective General VS/I O: Last Documented: Result Date Time Pulse Ox 99 04/09 1516 B/P 80/52 04/09 1516 B/P Mean 60 04/09 1516 Pulse 128 04/09 1516 Resp 22 04/09 1516 O2 Delivery High flow nasal cannula 04/09 1506 O2 Flow Rate 6 04/09 1506 Temp 36.4 04/09 0452 FiO2 30 04/09 0401 24 hour I O ending at 0700: 04/09 0700 04/08 1900 Intake Total 15 Output Total Balance 15 Intake, Oral 15 PATIENT WEIGHT: Weight (lb): Weight (oz): Weight (kg): 136.400 Medications: Active Meds + DC'd Last 24 Hrs Mupirocin (BACTROBAN NASAL-ADULT ICU/JAYLAN MRSA PATIENTS) 1 APPLIC BID NASAL Norepinephrine Bitartrate (Levophed 16 MG/250 ML NS) 250 ML .STK-MED ONE IV (DC) Norepinephrine Bitartrate (Levophed 16 MG/250 ML NS) 250 ML ASDIR IV Midodrine (PROAMATINE) 5 MG ONCE ONE PO (DC) Sodium Chloride (0.9% Sodium Chloride) 250 ML ONCE ONE IV Vancomycin HCl (VANCOMYCIN HCL) 1,000 MG MoWeFr@1700 IV (DC) Sodium Chloride (0.9% Sodium Chloride) 250 ML Allopurinol (ZYLOPRIM) 100 MG BEDTIME PO Cinacalcet (SENSIPAR) 30 MG BEDTIME PO Amiodarone HCl (Nexterone 360 MG/200 Ml Bag) 200 ML ASDIR IV (CKD) Apixaban (ELIQUIS) 5 MG BID PO Albumin Human (ALBUMINAR-25% 12.5 GM/50 ML) 25 GM BOLUS PRN IV (DC) Mannitol (MANNITOL 25%) 12.5 GM BOLUS PRN IV Sodium Chloride (0.9% Sodium Chloride) 2,000 ML .Q24H PRN IV Docusate Sodium (COLACE) 100 MG BID PO Methylprednisolone Sodium Succinate (Solu-MEDROL) 40 MG Q12HR IV Midodrine (PROAMATINE) 5 MG TID PO Senna (SENOKOT) 1 TAB BID PO (CKD) Albumin Human (OPTISON) 3 ML ONCE PRN IV Sevelamer Carbonate (RENVELA) 800 MG C MEALS PO Insulin Human Lispro (HUMALOG) S/SCALE LOW AC HS SUBQ Pantoprazole (PROTONIX) 40 MG DAILY@0600 PO Iopamidol (ISOVUE-370) 100 ML ONCE PRN IV Dextrose/Water (Dextrose 50% W SYRINGE) 50 ML ASDIR PRN IV (CKD) Acetaminophen (TYLENOL) 650 MG Q4H PRN PRN PO Cefepime HCl (MAXIPIME) 1 GM Q24H IV Sterile Water (WATER FOR INJECTION) 10 ML Hydrocodone Bitart/Acetaminophen (NORCO 5/325) 1 TAB Q4H PRN PRN PO Ondansetron HCl (ZOFRAN) 4 MG Q6H PRN PRN IV Physical Exam General appearance: awake Head/eyes: EOMI ENT: ENT: normal pharynx Neck: normal thyroid Cardiovascular: irregular rhythm Respiratory/chest: decreased breath sounds Abdomen: non-tender Genitourinary: no flank pain Lymphatics: no lymphadenopathy Results Findings/Data: Laboratory Tests 04/09/21 0517: [Embedded Image Not Available] Laboratory Tests 04/09 04/09 04/09 04/08 04/08 1339 0517 0517 1944 1617 Chemistry Sodium (134 - 147 mmol/L) 137 Potassium (3.4 - 5.0 mmol/L) 4.3 Chloride (100 - 108 mmol/L) 102 Carbon Dioxide (21 - 32 mmol/L) 22 Anion Gap (4.0 - 15.0 GAP calc) 13.0 BUN (7 - 18 MG/DL) 54 H Creatinine (0.8 - 1.3 MG/DL) 9.0 H Glomerular Filtr Rate (>60 estGFR) 8 L Glucose (70 - 110 MG/DL) 136 H POC Glucose (70 - 110 mg/dL) 108 82 81 Calcium (8.5 - 10.1 MG/DL) 9.8 C-Reactive Protein (0.000 - 0.3 MG/DL) 2.690 H Laboratory Tests 04/09 0517 Hematology WBC (3.5 - 11.0 K/mm3) 20.8 H RBC (4.70 - 6.10 M/mm3) 5.20 Hgb (12.3 - 15.9 G/DL) 12.9 Hct (35.8 - 46.7 %) 44.2 MCV (86.3 - 98.9 Fl) 85.0 L MCH (28.9 - 34.4 pg) 24.8 L MCHC (32.1 - 34.5 G/DL) 29.2 L RDW (11.5 - 14.5 SD) 19.9 H Plt Count (150 - 450 K/mm3) 240 MPV (7.0 - 9.6 fL) 11.20 H Neut % (Auto) (40 - 76 %) 90.0 H Lymph % (Auto) (20.5 - 51.1 %) 3.1 L Haralson % (Auto) (1.7 - 9.3 %) 5.1 Eos % (Auto) (0.0 - 6.0 %) 0.0 Baso % (Auto) (0.0 - 2.0 %) 0.2 Neut # (Auto) (1.8 - 7.6 K/mm3) 18.7 H Lymph # (Auto) (0.6 - 3.0 K/mm3) 0.7 Haralson # (Auto) (0.2 - 1.5 K/mm3) 1.1 Eos # (Auto) (0.0 - 0.4 K/mm3) 0.0 Baso # (Auto) (0.0 - 0.2 K/mm3) 0.0 Abs Immat Gran (auto) (0.00 - 0.03 x10 3/uL) 0.34 H Add Manual Diff (CRITERIA DIFF/SCN) NO Immature Gran % (0.0 - 5.0 %) 1.6 Nucleated RBC % (0.0 - 1.0 /100WBC%) 1.0 Laboratory Tests 04/09 0517 Toxicology Random Vancomycin (5 - 40 mcG/ML) 17.8 Diagnosis, Assessment Plan Free Text A P: 1. Hypercapnic hypoxic respiratory failure 2. Atrial fibrillation with rapid ventricular response 3, COPD with acute exacerbation 4. Recent Covid infection 5. End-stage renal disease on hemodialysis Plan: He is on 6 L nasal cannula now Continue steroids Continue Eliquis Continue antibiotics Hemodialysis per schedule Chest x-ray in the morning at 1555 RPT #: [id number] END OF REPORT [facility] 2021-04-09 14:46:00 [facility]) Hospitalist Progress Note REPORT#:[id number] REPORT STATUS: Signed DATE:04/09/21 TIME:1445 PATIENT: IRA RAYA UNIT #: [id number] ROOM/BED: [place] [address] : 54 AGE: 65 SEX: M ATTEND: Mandy Devlin MD ADM AUTHOR: Rome Tyler MD * ALL edits or amendments must be made on the electronic/computer document * Subjective Chief Complaint: Altered mental status hypoxia and A. fib Comments: Patient lying on the bed mental status slowly improving. Was hypotensive last night and started on vasopressors. Objective General VS/I O: Vital Signs: Date Time Temp Pulse Resp B/P B/P Pulse O2 O2 Flow FiO2 Mean Ox Delivery Rate 04/09 1415 111 17 100/55 70 98 04/09 1400 121 14 62/37 45 95 04/09 1345 113 17 93/45 65 98 04/09 1330 116 16 101/52 69 100 04/09 1315 113 16 107/51 73 97 04/09 1300 114 10 97/60 67 100 04/09 1245 115 14 94/53 64 99 04/09 1230 117 17 89/52 69 99 04/09 1216 123 18 100/56 73 100 / 1201 123 16 100/61 74 100 04/09 1145 113 16 99/60 72 99 04/09 1131 117 15 93/73 79 100 / 1115 116 15 96/53 61 100 / 1114 High flow 6 nasal cannula 04/09 1100 115 17 97/63 75 100 / 1045 118 15 108/55 77 97 / 1030 120 14 115/57 80 98 /30 1015 131 14 112/66 84 100 / 1000 118 14 106/69 83 100 /30 0945 115 15 112/74 90 100 / 0930 116 15 115/57 80 100 /30 0915 112 11 120/70 86 100 /30 0900 108 13 124/67 90 99 / 0845 115 13 123/69 89 98 / 0830 105 15 112/64 82 96 /30 0815 110 17 105/67 81 97 /30 0800 104 17 97/58 73 96 / 0745 110 16 106/57 77 95 09/30 0730 108 15 108/62 79 95 09/30 0715 105 18 99/59 71 98 09/30 0700 147 28 120/67 86 99 09/30 0630 117 19 89/51 66 97 09/30 0615 97/49 67 09/30 0600 112 16 112/53 77 93 09/30 0545 115 20 104/67 81 98 09/30 0530 117 16 95/51 70 92 09/30 0515 118 13 106/61 75 96 09/30 0500 125 18 109/55 73 97 09/30 0452 36.4 09/30 0445 111 21 113/62 82 97 09/30 0430 106 0 98/54 70 98 09/30 0415 107 18 105/57 75 99 09/30 0401 111 99 30 09/30 0400 111 4 112/58 77 100 09/30 0345 115 18 109/59 81 99 09/30 0330 129 17 109/57 71 100 09/30 0315 108 21 94/55 70 99 09/30 0300 110 22 103/52 75 99 09/30 0245 117 19 113/55 78 100 09/30 0230 107 16 98/47 68 100 09/30 0215 100 13 118/58 83 100 09/30 0200 105 13 115/58 80 100 09/30 0155 99 13 107/61 78 100 09/30 0145 113 16 66/32 42 96 09/30 0138 113 18 72/39 50 100 09/30 0115 121 17 82/60 66 97 09/30 0100 108 16 86/55 65 97 09/30 0053 112 10 101/52 75 99 09/30 0045 107 16 78/49 57 100 09/30 0031 109 17 80/50 60 98 09/30 0029 111 13 82/52 61 97 09/30 0027 36.4 09/30 0024 116 16 75/40 53 100 09/30 0021 123 17 72/36 48 98 09/30 0015 114 18 75/49 58 97 09/30 0006 118 19 80/52 62 97 09/30 0003 114 100 40 09/30 0000 36.7 09/30 0000 109 17 78/51 58 98 09/29 2330 117 12 81/59 66 100 09/29 2316 110 17 92/61 71 100 09/29 2315 109 16 87/55 67 100 09/29 2300 119 22 76/46 55 100 04/08 2230 116 16 82/52 61 99 04/08 2215 119 16 81/53 61 98 04/08 2200 120 17 83/52 62 95 04/08 2130 124 13 82/58 65 99 04/08 2100 125 15 91/54 69 98 04/08 2100 97 Nasal 5 40 cannula 04/08 2030 119 14 97/61 72 100 04/08 2000 10 04/08 1945 36.4 18 04/08 1930 120 14 99/64 77 99 04/08 1900 116 15 90/62 72 99 04/08 1730 113 17 97/60 72 100 04/08 1700 125 18 107/63 80 92 04/08 1619 36.3 04/08 1600 Nasal 2 cannula 04/08 1530 107 21 107/65 78 93 04/08 1500 118 15 107/61 76 97 24 hour I O ending at 0700: 04/09 0700 04/08 1900 Intake Total 15 Output Total Balance 15 Intake, Oral 15 PATIENT WEIGHT: Weight (lb): Weight (oz): Weight (kg): 136.400 Medications: Active Meds + DC'd Last 24 Hrs Mupirocin (BACTROBAN NASAL-ADULT ICU/JAYLAN MRSA PATIENTS) 1 APPLIC BID NASAL Norepinephrine Bitartrate (Levophed 16 MG/250 ML NS) 250 ML .STK-MED ONE IV (DC) Norepinephrine Bitartrate (Levophed 16 MG/250 ML NS) 250 ML ASDIR IV Midodrine (PROAMATINE) 5 MG ONCE ONE PO (DC) Sodium Chloride (0.9% Sodium Chloride) 250 ML ONCE ONE IV Vancomycin HCl (VANCOMYCIN HCL) 1,000 MG MoWeFr@1700 IV (DC) Sodium Chloride (0.9% Sodium Chloride) 250 ML Allopurinol (ZYLOPRIM) 100 MG BEDTIME PO Cinacalcet (SENSIPAR) 30 MG BEDTIME PO Vancomycin HCl (VANCOMYCIN HCL) 1,000 MG TuThSa@2000 IV (DC) Sodium Chloride (0.9% Sodium Chloride) 250 ML Amiodarone HCl (Nexterone 360 MG/200 Ml Bag) 200 ML ASDIR IV (CKD) Apixaban (ELIQUIS) 5 MG BID PO Albumin Human (ALBUMINAR-25% 12.5 GM/50 ML) 25 GM BOLUS PRN IV (DC) Mannitol (MANNITOL 25%) 12.5 GM BOLUS PRN IV Sodium Chloride (0.9% Sodium Chloride) 2,000 ML .Q24H PRN IV Docusate Sodium (COLACE) 100 MG BID PO Methylprednisolone Sodium Succinate (Solu-MEDROL) 40 MG Q12HR IV Midodrine (PROAMATINE) 5 MG TID PO Senna (SENOKOT) 1 TAB BID PO (CKD) Albumin Human (OPTISON) 3 ML ONCE PRN IV Sevelamer Carbonate (RENVELA) 800 MG C MEALS PO Insulin Human Lispro (HUMALOG) S/SCALE LOW AC HS SUBQ Miscellaneous Information (VANCOMYCIN PHARMACY TO DOSE) 1 EACH ASDIR IV (DC) Pantoprazole (PROTONIX) 40 MG DAILY@0600 PO Iopamidol (ISOVUE-370) 100 ML ONCE PRN IV Dextrose/Water (Dextrose 50% W SYRINGE) 50 ML ASDIR PRN IV (CKD) Acetaminophen (TYLENOL) 650 MG Q4H PRN PRN PO Cefepime HCl (MAXIPIME) 1 GM Q24H IV Sterile Water (WATER FOR INJECTION) 10 ML Hydrocodone Bitart/Acetaminophen (NORCO 5/325) 1 TAB Q4H PRN PRN PO Ondansetron HCl (ZOFRAN) 4 MG Q6H PRN PRN IV Physical Exam General appearance: confused, awake Head/Eyes: atraumatic, normocephalic ENT: on NRB mask Neck: supple/no meningismus, no JVD Cardiovascular: irregularly irregular, tachycardic Respiratory: decreased breath sounds, hypoxia, on oxygen (15L NRB) Abdomen: obese, non-tender, soft Extremities: moves all, no edema Neuro/GRAIN ELEVATOR MOTOR STARTER: somnolent but arousable Psychiatry: unable to evaluate Results Findings/Data: Laboratory Tests 04/09 04/09 04/09 04/08 04/08 1339 0517 0517 1944 1617 Chemistry Sodium (134 - 147 mmol/L) 137 Potassium (3.4 - 5.0 mmol/L) 4.3 Chloride (100 - 108 mmol/L) 102 Carbon Dioxide (21 - 32 mmol/L) 22 Anion Gap (4.0 - 15.0 GAP calc) 13.0 BUN (7 - 18 MG/DL) 54 H Creatinine (0.8 - 1.3 MG/DL) 9.0 H Glomerular Filtr Rate (>60 estGFR) 8 L Glucose (70 - 110 MG/DL) 136 H POC Glucose (70 - 110 mg/dL) 108 82 81 Calcium (8.5 - 10.1 MG/DL) 9.8 C-Reactive Protein (0.000 - 0.3 MG/DL) 2.690 H Laboratory Tests 04/09 0517 Hematology WBC (3.5 - 11.0 K/mm3) 20.8 H RBC (4.70 - 6.10 M/mm3) 5.20 Hgb (12.3 - 15.9 G/DL) 12.9 Hct (35.8 - 46.7 %) 44.2 MCV (86.3 - 98.9 Fl) 85.0 L MCH (28.9 - 34.4 pg) 24.8 L MCHC (32.1 - 34.5 G/DL) 29.2 L RDW (11.5 - 14.5 SD) 19.9 H Plt Count (150 - 450 K/mm3) 240 MPV (7.0 - 9.6 fL) 11.20 H Neut % (Auto) (40 - 76 %) 90.0 H Lymph % (Auto) (20.5 - 51.1 %) 3.1 L Haralson % (Auto) (1.7 - 9.3 %) 5.1 Eos % (Auto) (0.0 - 6.0 %) 0.0 Baso % (Auto) (0.0 - 2.0 %) 0.2 Neut # (Auto) (1.8 - 7.6 K/mm3) 18.7 H Lymph # (Auto) (0.6 - 3.0 K/mm3) 0.7 Haralson # (Auto) (0.2 - 1.5 K/mm3) 1.1 Eos # (Auto) (0.0 - 0.4 K/mm3) 0.0 Baso # (Auto) (0.0 - 0.2 K/mm3) 0.0 Abs Immat Gran (auto) (0.00 - 0.03 x10 3/uL) 0.34 H Add Manual Diff (CRITERIA DIFF/SCN) NO Immature Gran % (0.0 - 5.0 %) 1.6 Nucleated RBC % (0.0 - 1.0 /100WBC%) 1.0 Laboratory Tests 04/09 0517 Toxicology Random Vancomycin (5 - 40 mcG/ML) 17.8 Results: labs reviewed, current med profile rev'd Diagnosis, Assessment Plan Problem List/A P: 1. Acute on chronic respiratory failure with hypoxia - previously on 2L at rehab, now on 15L NRB - admit to IMCU for close monitoring under continuous telemetry - pt is vaccinated, initially dx with COVID-19 on 03/20, test still positive here - possible superimposed bacterial PNA vs HCAP PNA - will also get CTA Chest to rule out PE - empiric IV Vanc and Cefepime abx, follow cultures - IV solumedrol 40mg BID - consult Infectious Disease - consult Pulmonology 2. Pneumonia due to COVID-19 virus - as above 3. New onset a-fib - new onset Afib with RVR HR currently 110s-120s, will give IV metoprolol 5mgx1 - check serum electrolytes, TSH - check echocardiogram - consult Cardiology 4. ESRD on dialysis - hx of ESRD on TuThSat HD - will consult Nephrology ot arrange inpatient HD 5. Chronic hypotension - continue home midodrine Consultants: cardiology, infectious disease, nephrology, pulmonary Free Text DxA P Notes Free text DxA P notes: DVT prophylaxis- continue home Eliquis 04/08 Acute on chronic hypoxic respiratory failure Recent Covid suspicion for HCAP Infectious disease and pulmonary on board Continue broad-spectrum antibiotics vancomycin and cefepime Follow infectious work-up Oxygenation slowly improving Also get speech therapy evaluation Intermittent BiPAP as per pulmonary Continue with steroids A. fib with RVR Cardiology on board. Currently on amiodarone drip. Continue with Eliquis Echo pending End-stage renal disease on dialysis Continue dialysis as per nephrology There might be some element of fluid overload Altered mental status probably metabolic encephalopathy Do not have baseline mental status but slowly seems to be improving. CT head was negative for any acute changes. History of coronary artery disease Follow-up with cardiology monitor on telemetry History of gout Continue with home medication DVT prophylaxis Patient is full code 04/09 Acute on chronic hypoxic respiratory failure Recent Covid plus element of superimposed bacterial infection with HCAP Infectious disease and pulmonary on board Continue broad-spectrum antibiotics vancomycin and cefepime Follow infectious work-up Oxygenation slowly improving Also get speech therapy evaluation will be going for modified barium swallow Intermittent BiPAP as per pulmonary Continue with steroids A. fib with RVR Cardiology on board. Currently on amiodarone drip. Continue with Eliquis Echo pending Shock Not sure if it is related to sepsis versus just being dialyzed and with amiodarone. Continue pressors titrate to keep map above 65. End-stage renal disease on dialysis Continue dialysis as per nephrology There might be some element of fluid overload. Seems to be improving. Altered mental status probably metabolic encephalopathy Do not have baseline mental status but slowly seems to be improving. CT head was negative for any acute changes. History of coronary artery disease Follow-up with cardiology monitor on telemetry History of gout Continue with home medication DVT prophylaxis Patient is full code Spent 31 minutes of critical care time in evaluating examining reviewing chart and the imaging and management and discussing with the patient and the consultants at 1449 RPT #: [id number] END OF REPORT [facility] 2021-04-08 23:23:00 [facility] ([facility]) Clinical Note REPORT#:[id number] REPORT STATUS: Signed DATE:04/08/21 TIME:2322 PATIENT: IRA RAYA UNIT #: [id number] ROOM/BED: [place] [address] : 54 AGE: 65 SEX: M ATTEND: Mandy Devlin MD ADM AUTHOR: Noe Avila AUTOMATED PROCESS OPERATOR * ALL edits or amendments must be made on the electronic/computer document * Clinical Note Note: was notified by nurse pt's b/p is low. I have seen the pt, he is c/o nausea. I have slightly elevated his legs. B/P up to 87/60. I have asked the nurse to give him anti emetics and his Midodrine that was not given in the A.M. 00:45 I have seen the pt again, continues to be hypotensive, will give a 2nd dose of midodrine 5 mg po x 1 dose, N/S 250 ml IV x 1 dose, b/p 80/50's. 01:40 A.M pt continues to be hypotensive SBP 70's will add levophed IV drip titrate. AFIB HR 100-120's. 02:00 b/p gradually trending up. will continue to monitor. at 1834 at 1430 [facility] #: [id number] END OF REPORT [facility] 2021-04-08 17:01:00 [facility]) Wound Care Consultation Note REPORT#:[id number] REPORT STATUS: Signed DATE:04/08/21 TIME:1701 PATIENT: IRA RAYA UNIT #: [id number] ROOM/BED: [place] [address] : 54 AGE: 65 SEX: M ATTEND: Mandy Devlin MD ADM AUTHOR: Barbara Christensen * ALL edits or amendments must be made on the electronic/computer document * History of Present Illness HPI: Patient is a 65 year old male with an extensive past medical history including ESRD on HD, acute hypoxic respiratory failure due to COVID 19 PNA, CAD, HTN, and new onset a fib who was admitted to [facility] from 03/20-04/03 due to confusion nd frequent falls. He was discharged to [facility] rehab on 04/03. He then presented to this facility due to hypoxia and new onset afib. Patient is currently . Wound car has been consulted as the patient has a sacral stage 2 decubitus wound. Patient currently denies N/V/D, SOB, chest pain. History Past History Past medical history: unable to obtain Allergies: Coded Allergies: No Allergy Information Available (04/06/21) Objective VS/I O: Last Documented: Result Date Time Temp 36.3 04/08 1619 Pulse Ox 99 04/08 1400 B/P 103/57 04/08 1400 B/P Mean 73 04/08 1400 Pulse 118 04/08 1400 Resp 15 04/08 1400 O2 Delivery Nasal cannula 04/08 1200 O2 Flow Rate 11 04/08 1200 FiO2 40 04/08 0919 24 hour I O ending at 0700: 04/08 0700 04/07 1900 Intake Total 616.60 Output Total 1800 Balance 616.60 -1800 Intake, IV 616.60 Output, 1800 Hemodialysis General appearance: obese, respiratory support (7 L via NC) Head/Eyes: clear cornea, EOMI ENT: normal ear left, normal ear right Neck: no lymphadenopathy, no masses or swelling Cardiovascular: irregularly irregular, a fib Respiratory: no distress, symmetric expansion, on oxygen Wound Assessment Wound Assessment 1: Type/cause: pressure Wound location: sacral region Tissue layers: limited to skin breakdown Site condition: granulating Length (cm): 1.3 Width (cm): 0.5 Diagnosis, Assessment Plan Free Text A P: Assessment/plan sacral stage 2 decubitus wound wound is clean and dry with no clinical signs of infection. Wound care: apply duoderm to area and change qMWF or PRN if soiled or removed. Avoid direct pressure over area, recommend air mattress. Offload with wedge pillow. COVID 19 respiratory failure continue O2 supplementation. Wean as tolerated. ESRD on HD, leucocytosis, transaminitis -medical management per primary team -continue to monitor CBC and BMP -Plan of care discussed with Dr. Merritt Thank you for consultation. at 1728 RPT #: [id number] END OF REPORT [facility] 2021-04-08 16:22:00 [id number] [facility] [id number] [place] [id number] PATIENT NAME: IRA RAYA ADMIT DATE: 04/07/21 ACCOUNT NO: [id number] ROOM NO: [facility] AGE: 65 REPORT TYPE: eECHOCARDIOGRAM REPORT SEX: M ADMITTING PHYSICIAN: Mandy Devlin MD ATTENDING PHYSICIAN: Mandy Devlin MD *[facility]* [id number] [place] [id number] Transthoracic Echocardiogram Patient: Ira Raya Study Date: 04/08/2021 BP: 92 / 53 Location: [facility] URN: [id number] : 1955 Age: 65 Height: 72 in / 182.9 cm Gender: M Weight: 300 lb / 136.4 kg BMI/BSA: 40.8 kg/m 2 / 2.69 m 2 *Ordering Physician: * Mandy Devlin *Interpreting Physician: * Rishabh Robbins *Client Server Programmer: * Chyna Cruz Indications: New Onset Afib. Study data: Transthoracic echocardiogram. Procedure: Transthoracic echocardiography was performed. Image quality was suboptimal. The study was technically limited due to poor acoustic window availability and body habitus. Complete 2D, complete spectral Doppler, and color Doppler. Location: Bedside. Patient status: Inpatient. Patient room number: 303. Study status: Routine. Findings Left ventricle: The cavity size is normal. Wall thickness is mildly increased. Systolic function is normal. The estimated ejection fraction is 50-54%. Wall motion is normal; there are no regional wall motion abnormalities. The study is not technically sufficient to allow evaluation of LV diastolic function. PATIENT NAME: IRA RAYA Right ventricle: Not well visualized. Left atrium: The atrium is dilated. Right atrium: Not well visualized. Aorta: Aortic root: The aortic root is not visualized. Aortic valve: The valve is structurally normal. The valve is trileaflet. There is no evidence of stenosis. There is no regurgitation. Mitral valve: The valve is structurally normal. There is trivial regurgitation. Tricuspid valve: The valve is structurally normal. There is mild regurgitation. Pulmonic valve: Not well visualized. Pericardium: There is no pericardial effusion. Pulmonary arteries: Not visualized. Systemic veins: Inferior vena cava: The vessel is normal in size. Measurements Left ventricle Value Ref JENNIFER, LAX 3.9 cm 4.2 - 5.8 ESD, LAX 2.8 cm 2.5 - 4.0 ESD/bsa, LAX 1.1 cm/m 2 1.3 - 2.1 FS, LAX 27 % 25 - 43 PW, ED 1.3 cm 0.6 - 1.0 IVS/PW, ED 1.06 --------- EF 53 % 52 - 72 IVRT 77 ms --------- E/e', avg, TDI 40 <=14 LVOT Value Ref Diam, S 2.55 cm --------- Area 5.1 cm 2 --------- Peak farzaneh, S 0.97 m/sec --------- Mean farzaneh, S 0.71 m/sec --------- VTI, S 11.6 cm --------- Peak grad, S 4 mm Hg --------- Mean grad, S 2 mm Hg --------- SV 59 ml --------- SV/bsa 22 ml/m 2 --------- Ventricular septum Value Ref IVS, ED 1.3 cm 0.6 - 1.0 Right ventricle Value Ref Pressure, S 35 mm Hg --------- Left atrium Value Ref Vol/bsa, ES, 1-p A4C 20 ml/m 2 12 - 37 Vol/bsa, ES, A/L 21 ml/m 2 16 - 34 AP dim, ES MM 4.5 cm 3.0 - 4.0 LA/Ao root ratio, MM 1.32 --------- PATIENT NAME: IRA RAYA Aortic valve Value Ref Leaflet sep, MM 2.21 cm --------- Peak v, S 1.73 m/sec --------- Mean v, S 1.32 m/sec --------- VTI, S 14.1 cm --------- Mean grad, S 7.8 mm Hg --------- Peak grad, S 12.2 mm Hg --------- LVOT/AV, VTI ratio 0.83 --------- MEG, VTI 4.21 cm 2 --------- LVOT/AV, Vpeak ratio 0.56 --------- MEG, Vmax 3.36 cm 2 --------- Mitral valve Value Ref Peak E 2.1 m/sec --------- Peak A 0.89 m/sec --------- Decel time 144 ms --------- PHT 41 ms --------- Peak grad, D 17.6 mm Hg --------- Peak E/A ratio 2.35 --------- MVA, PHT 5.3 cm 2 --------- Tricuspid valve Value Ref TR peak v 2.76 m/sec <=2.8 Peak RV-RA grad, S 30 mm Hg --------- Aortic root Value Ref Root diam, ED MM 3.37 cm --------- Pulmonary artery Value Ref Pressure, S 33.4 mm Hg --------- Systemic veins Value Ref Estimated CVP 5 mm Hg --------- Conclusions Summary: 1. Left ventricle: The cavity size is normal. Wall thickness is mildly increased. Systolic function is normal. The estimated ejection fraction is 50-54%. Wall motion is normal; there are no regional wall motion abnormalities. The study is not technically sufficient to allow evaluation of LV diastolic function. 2. Right ventricle: The RV pressure during systole by Doppler is 35 mm Hg. 3. Left atrium: The atrium is dilated. 4. Technically difficult study. Prepared and electronically signed by PATIENT NAME: IRA RAYA Rishabh Robbins 04/08/2021 16:22 at 1622 PATIENT NAME: IRA RAYA [facility] 2021-04-08 14:48:00 [facility] ([facility] Infectious Dis. Progress Note REPORT#:[id number] REPORT STATUS: Signed DATE:04/08/21 TIME:144 PATIENT: IAR RAYA UNIT #: [id number] ROOM/BED: [place] [address] : 54 AGE: 65 SEX: M ATTEND: Mandy Devlin MD ADM AUTHOR: Bridgett Ramos * ALL edits or amendments must be made on the electronic/computer document * Bridgett Ramos 04/08/21 1448: Subjective Chief Complaint: HCAP HPI: Patient afebrile today. On 11L O2 via nasal cannula. Can speak in short phrases. Reports feeling same as yesterday, but no worse. WBC 18.4 uptrending. ALT 155, AST 88. Review of Systems Constitutional: Denies: chills, fatigue, fever. GI: Denies: diarrhea, nausea, vomiting. Objective General VS/I O: Last Documented: Result Date Time Pulse Ox 99 04/08 1400 B/P 103/57 04/08 1400 B/P Mean 73 04/08 1400 Pulse 118 04/08 1400 Resp 15 04/08 1400 O2 Delivery Nasal cannula 04/08 1200 O2 Flow Rate 11 04/08 1200 Temp 36.3 04/08 1200 FiO2 40 04/08 0919 Vital Signs Date Temp Pulse Resp B/P B/P Mean Pulse Ox FiO2 04/07-04/08 36.2-36.5 88-138 8-21 82-131/50-86 61-97 65-100 40-60 24 hour I O ending at 0700: 04/08 0700 04/07 1900 Intake Total 616.60 Output Total 1800 Balance 616.60 -1800 Intake, IV 616.60 Output, 1800 Hemodialysis PATIENT WEIGHT: Weight (lb): Weight (oz): Weight (kg): 136.400 Physical Exam General appearance: respiratory support, alert, awake Head/Eyes: atraumatic, EOMI, normal conjunctiva/sclera, normal eyelids/periorb, normocephalic ENT: moist mucosal membranes, normal nose Respiratory: on oxygen, shortness of breath, symmetric expansion Extremities: normal temperature, no clubbing, no cyanosis Neuro/GRAIN ELEVATOR MOTOR STARTER: alert, oriented X 3, normal speech Skin: dry, intact, normal color, no rash Diagnosis, Assessment Plan Free Text A P: Laboratory Tests 04/08/21 0424: [Embedded Image Not Available] Imaging: CTA GGOs, no PE 04/07 CXR b/l infiltrates 04/06 Assessment: 1. Sepsis. 2. Probable HCAP. 3. Acute respiratory failure with hypoxia due to PNA vs. pulmonary congestion. 4. Recent covid-19. Vaccinated. 5. ESRD. 6. Afib with RVR. Plan: 1. Continue empiric cefepime (day 2). 2. Discontinue empiric vancomycin as MRSA screen and blood cx neg. 3. Steroids per pulmonary. 4. MRSA screening neg. Blood cxs neg at 24 hrs. 5. Monitor CBC, LFTs, inflammatory markers. Miles Nance 04/08/21 2219: Attestations Physician Attestation Reviewed findings plan: I evaluated the pt with DALE Ramos. I confirm the interval history, physical exam, lab findings, assessment and plan. My personal evaluation is probable HCAP and recent covid-19. Plan: cefepime, can stop vancomycin. at 1456 at 2220 RPT #: [id number] END OF REPORT [facility] 2021-04-08 14:18:00 [facility]) Hospitalist Progress Note REPORT#:[id number] REPORT STATUS: Signed DATE:04/08/21 TIME:1418 PATIENT: IRA RAYA UNIT #: [id number] ROOM/BED: [facility] : 53 AGE: 65 SEX: M ATTEND: Mandy Devlin MD ADM AUTHOR: Rome Tyler MD * ALL edits or amendments must be made on the electronic/computer document * Subjective Chief Complaint: Altered mental status hypoxia and A. fib Comments: Patient lying on the bed slightly more awake today can tell me his name but still very drowsy. Currently on 6 L by nasal cannula Objective General VS/I O: Vital Signs: Date Time Temp Pulse Resp B/P B/P Pulse O2 O2 Flow FiO2 Mean Ox Delivery Rate 04/08 1200 36.3 Nasal 11 cannula 04/08 1108 36.5 04/08 0919 107 96 40 04/08 0919 97 High flow 10 60 nasal cannula 04/08 0700 Nasal 13 cannula 04/08 0700 36.2 Nasal 13 cannula 04/08 0600 98 16 92/53 67 98 04/08 0545 110 8 102/71 82 94 04/08 0540 117 96 40 04/08 0530 105 14 104/56 78 94 04/08 0515 107 16 129/57 82 96 04/08 0431 99 13 108/57 77 65 04/08 0415 99 13 91/50 68 97 04/08 0401 100 15 107/55 79 94 04/08 0400 36.2 High flow nasal cannula 04/08 0345 105 14 110/86 93 89 04/08 0330 99 12 100/57 77 96 04/08 0315 92 12 89/54 67 96 04/08 0301 95 12 96/53 68 95 04/08 0231 96 15 96/57 72 96 04/08 0200 95 16 104/59 78 97 04/08 0145 93 12 90/50 65 95 04/08 0130 98 12 85/56 66 94 04/08 0115 92 12 89/53 66 92 04/08 0100 93 15 91/54 67 93 04/08 0045 99 15 97/53 70 92 04/08 0030 104 20 98/55 70 89 04/08 0015 98 11 98/60 75 91 04/08 0000 36.4 04/08 0000 93 12 82/50 61 89 04/07 2345 91 13 91/51 64 88 04/07 2330 97 14 90/55 68 89 04/07 2315 92 12 87/55 67 93 04/07 2300 101 16 101/57 73 93 04/07 2245 95 15 101/62 76 100 04/07 2230 95 15 107/50 72 100 04/07 2223 102 20 111/59 74 99 04/07 2215 98 17 126/85 97 97 04/07 2200 91 15 112/71 87 100 04/07 2145 92 11 100/64 78 100 04/07 2130 88 10 89/54 66 100 04/07 2115 93 11 84/52 63 100 04/07 2100 112 13 101/51 74 99 04/07 2045 131 21 100/55 70 86 04/07 2030 115 13 97/56 71 96 04/07 2000 High flow 10 nasal cannula 04/07 2000 36.5 High flow 10 nasal cannula 04/07 2000 124 18 109/73 86 04/07 1955 98 High flow 10 nasal cannula 04/07 1945 112 14 122/67 86 92 04/07 1935 36.4 04/07 1930 112 19 116/77 92 95 04/07 1915 112 14 113/72 87 98 04/07 1900 104 13 131/69 91 100 04/07 1827 Nasal 10 cannula 04/07 1614 138 15 100/51 67 92 Nasal 10 cannula 04/07 1511 Nasal 10 cannula 24 hour I O ending at 0700: 04/08 0704/07 1900 Intake Total 616.60 Output Total 1800 Balance 616.60 -1800 Intake, IV 616.60 Output, 1800 Hemodialysis PATIENT WEIGHT: Weight (lb): Weight (oz): Weight (kg): 136.400 Medications: Active Meds + DC'd Last 24 Hrs Vancomycin HCl (VANCOMYCIN HCL) 1,000 MG MoWeFr@1700 IV (DC) Sodium Chloride (0.9% Sodium Chloride) 250 ML Allopurinol (ZYLOPRIM) 100 MG BEDTIME PO Cinacalcet (SENSIPAR) 30 MG BEDTIME PO Metoprolol Tartrate (LOPRESSOR) 5 MG ONCE ONE IV (DC) Vancomycin HCl (VANCOMYCIN HCL) 1,000 MG TuThSa@2000 IV Sodium Chloride (0.9% Sodium Chloride) 250 ML Amiodarone HCl (Nexterone 360 MG/200 Ml Bag) 200 ML ASDIR IV (CKD) Amiodarone HCl (Nexterone 150 MG/100 Ml Bag) 100 ML STAT STA IV (DC) Apixaban (ELIQUIS) 5 MG BID PO Albumin Human (ALBUMINAR-25% 12.5 GM/50 ML) 25 GM BOLUS PRN IV Mannitol (MANNITOL 25%) 12.5 GM BOLUS PRN IV Sodium Chloride (0.9% Sodium Chloride) 2,000 ML .Q24H PRN IV Apixaban (ELIQUIS) 2.5 MG BID PO (DC) Docusate Sodium (COLACE) 100 MG BID PO Methylprednisolone Sodium Succinate (Solu-MEDROL) 40 MG Q12HR IV Midodrine (PROAMATINE) 5 MG TID PO Senna (SENOKOT) 1 TAB BID PO (CKD) Albumin Human (OPTISON) 3 ML ONCE PRN IV Sevelamer Carbonate (RENVELA) 800 MG C MEALS PO Insulin Human Lispro (HUMALOG) S/SCALE LOW AC HS SUBQ Miscellaneous Information (VANCOMYCIN PHARMACY TO DOSE) 1 EACH ASDIR IV Pantoprazole (PROTONIX) 40 MG DAILY@0600 PO Iopamidol (ISOVUE-370) 100 ML ONCE PRN IV Dextrose/Water (Dextrose 50% W SYRINGE) 50 ML ASDIR PRN IV (CKD) Acetaminophen (TYLENOL) 650 MG Q4H PRN PRN PO Cefepime HCl (MAXIPIME) 1 GM Q24H IV Sterile Water (WATER FOR INJECTION) 10 ML Hydrocodone Bitart/Acetaminophen (NORCO 5/325) 1 TAB Q4H PRN PRN PO Ondansetron HCl (ZOFRAN) 4 MG Q6H PRN PRN IV Physical Exam General appearance: chronically ill appearing, confused, lethargic Head/Eyes: atraumatic, normocephalic ENT: moist mucosal membranes, normal nose Neck: supple/no meningismus, no JVD Cardiovascular: irregularly irregular, tachycardic Respiratory: hypoxia, on oxygen (15L NRB), aerating well, clear to auscultation Abdomen: obese, non-tender, soft Extremities: moves all, no edema Neuro/GRAIN ELEVATOR MOTOR STARTER: altered mental status, somnolent but arousable Psychiatry: unable to evaluate Results Findings/Data: Laboratory Tests 04/07 1617 Blood Gas Puncture Site (DESCRIPTION ARTKIT) Right Radial ABG pH (7.35 - 7.45 pH units) 7.35 ABG pCO2 (35 - 45 mmHg) 43 ABG pO2 (80 - 100 mmHg) 101 H ABG PO2/FiO2 Ratio (200 mm/Hg) 202.0 ABG HCO3 (22.0 - 26.0 mmol/L) 22.9 ABG O2 Saturation (90 - 100 %) 97 ABG Base Excess (-3.0 - 3.0 mmol/L) -2.7 Michelle Test (POSITIVE Circ.CHK) Yes Vent Mode (Vent Mode Descript) Nasal Cannula FiO2 (21 - 100 % (calc)) 50 Laboratory Tests 04/08 04/08 04/08 04/07 04/07 1106 0741 0424 2033 1933 Chemistry Sodium (134 - 147 mmol/L) 139 Potassium (3.4 - 5.0 mmol/L) 4.2 Chloride (100 - 108 mmol/L) 103 Carbon Dioxide (21 - 32 mmol/L) 27 Anion Gap (4.0 - 15.0 GAP calc) 9.0 BUN (7 - 18 MG/DL) 38 H Creatinine (0.8 - 1.3 MG/DL) 7.2 H Glomerular Filtr Rate (>60 estGFR) 10 L Glucose (70 - 110 MG/DL) 123 H POC Glucose (70 - 110 mg/dL) 80 114 H 128 H 103 Calcium (8.5 - 10.1 MG/DL) 9.6 Total Bilirubin (0.2 - 1.2 MG/DL) 1.00 AST (15 - 37 Unit/L) 88 H ALT (12 - 78 Unit/L) 155 H Total Alk Phosphatase (50 - 136 Unit/L) 147 H Total Protein (6.4 - 8.2 G/DL) 7.0 Albumin (3.4 - 5.0 G/DL) 3.2 L Globulin (GM/dL) 3.8 Albumin/Globulin Ratio (1.2 - 2.2 RATIO) 0.8 L 04/07 161 Chemistry POC Glucose (70 - 110 mg/dL) 136 H Laboratory Tests 04/08 424 Hematology WBC (3.5 - 11.0 K/mm3) 18.4 H RBC (4.70 - 6.10 M/mm3) 5.17 Hgb (12.3 - 15.9 G/DL) 12.8 Hct (35.8 - 46.7 %) 43.7 MCV (86.3 - 98.9 Fl) 84.5 L MCH (28.9 - 34.4 pg) 24.8 L MCHC (32.1 - 34.5 G/DL) 29.3 L RDW (11.5 - 14.5 SD) 18.6 H Plt Count (150 - 450 K/mm3) 183 MPV (7.0 - 9.6 fL) 11.90 H Neut % (Auto) (40 - 76 %) 92.1 H Lymph % (Auto) (20.5 - 51.1 %) 3.5 L Haralson % (Auto) (1.7 - 9.3 %) 3.4 Eos % (Auto) (0.0 - 6.0 %) 0.0 Baso % (Auto) (0.0 - 2.0 %) 0.2 Neut # (Auto) (1.8 - 7.6 K/mm3) 16.9 H Lymph # (Auto) (0.6 - 3.0 K/mm3) 0.7 Haralson # (Auto) (0.2 - 1.5 K/mm3) 0.6 Eos # (Auto) (0.0 - 0.4 K/mm3) 0.0 Baso # (Auto) (0.0 - 0.2 K/mm3) 0.0 Abs Immat Gran (auto) (0.00 - 0.03 x10 3/uL) 0.15 H Add Manual Diff (CRITERIA DIFF/SCN) NO Immature Gran % (0.0 - 5.0 %) 0.8 Nucleated RBC % (0.0 - 1.0 /100WBC%) 0.2 Radiology data: Recent Impressions: CAT SCAN - CT HEAD/BRAIN W/O CONT 04/07 2204 Report Impression - Status: SIGNED Entered: 04/07/20212224 IMPRESSION: No acute finding Impression By: Cristina - Mikki Leonard M.D. Results: labs reviewed, current med profile rev'd Diagnosis, Assessment Plan Problem List/A P: 1. Acute on chronic respiratory failure with hypoxia - previously on 2L at rehab, now on 15L NRB - admit to IMCU for close monitoring under continuous telemetry - pt is vaccinated, initially dx with COVID-19 on 03/20, test still positive here - possible superimposed bacterial PNA vs HCAP PNA - will also get CTA Chest to rule out PE - empiric IV Vanc and Cefepime abx, follow cultures - IV solumedrol 40mg BID - consult Infectious Disease - consult Pulmonology 2. Pneumonia due to COVID-19 virus - as above 3. New onset a-fib - new onset Afib with RVR HR currently 110s-120s, will give IV metoprolol 5mgx1 - check serum electrolytes, TSH - check echocardiogram - consult Cardiology 4. ESRD on dialysis - hx of ESRD on TuThSat HD - will consult Nephrology ot arrange inpatient HD 5. Chronic hypotension - continue home midodrine Consultants: cardiology, infectious disease, nephrology, pulmonary Free Text DxA P Notes Free text DxA P notes: DVT prophylaxis- continue home Eliquis 04/08 Acute on chronic hypoxic respiratory failure Recent Covid suspicion for HCAP Infectious disease and pulmonary on board Continue broad-spectrum antibiotics vancomycin and cefepime Follow infectious work-up Oxygenation slowly improving Also get speech therapy evaluation Intermittent BiPAP as per pulmonary Continue with steroids A. fib with RVR Cardiology on board. Currently on amiodarone drip. Continue with Eliquis Echo pending End-stage renal disease on dialysis Continue dialysis as per nephrology There might be some element of fluid overload Altered mental status probably metabolic encephalopathy Do not have baseline mental status but slowly seems to be improving. CT head was negative for any acute changes. History of coronary artery disease Follow-up with cardiology monitor on telemetry History of gout Continue with home medication DVT prophylaxis Patient is full code at 1423 RPT #: [id number] END OF REPORT [facility] 2021-04-08 08:58:00 [facility] ([facility]) Nephrology Progress Note REPORT#:[id number] REPORT STATUS: Signed DATE:04/08/21 TIME:0858 PATIENT: IRA RAYA UNIT #: [id number] ROOM/BED: [place] [id number] : 54 AGE: 65 SEX: M ATTEND: Mandy Devlin MD ADM AUTHOR: Genaro Gupta MD * ALL edits or amendments must be made on the electronic/computer document * Subjective Chief Complaint: ESRD Comments: Lethargic. Hemodialysis yesterday, with fluid removal of 1.8 L. Patient seen and evaluated at bedside, remains drowsy. Creatinine 7.2 from 9.2. Events noted. Review of Systems Unable to obtain due to: Lethargic. Objective General VS/I O: Vital Signs: Date Time Temp Pulse Resp B/P B/P Pulse O2 O2 Flow FiO2 Mean Ox Delivery Rate 04/08 0700 Nasal 13 cannula 04/08 0700 36.2 Nasal 13 cannula 04/08 0600 98 16 92/53 67 98 04/08 0545 110 8 102/71 82 94 04/08 0540 117 96 40 04/08 0530 105 14 104/56 78 94 04/08 0515 107 16 129/57 82 96 04/08 0431 99 13 108/57 77 65 04/08 0415 99 13 91/50 68 97 04/08 0401 100 15 107/55 79 94 04/08 0400 36.2 High flow nasal cannula 04/08 0345 105 14 110/86 93 89 04/08 0330 99 12 100/57 77 96 04/08 0315 92 12 89/54 67 96 04/08 0301 95 12 96/53 68 95 04/08 0231 96 15 96/57 72 96 04/08 0200 95 16 104/59 78 97 04/08 0145 93 12 90/50 65 95 04/08 0130 98 12 85/56 66 94 04/08 0115 92 12 89/53 66 92 04/08 0100 93 15 91/54 67 93 04/08 0045 99 15 97/53 70 92 04/08 0030 104 20 98/55 70 89 04/08 0015 98 11 98/60 75 91 04/08 0000 36.4 04/08 0000 93 12 82/50 61 89 04/07 2345 91 13 91/51 64 88 04/07 2330 97 14 90/55 68 89 04/07 2315 92 12 87/55 67 93 04/07 2300 101 16 101/57 73 93 09/28 2245 95 15 101/62 76 100 04/07 2230 95 15 107/50 72 100 04/07 2223 102 20 111/59 74 99 04/07 2215 98 17 126/85 97 97 04/07 2200 91 15 112/71 87 100 04/07 2145 92 11 100/64 78 100 04/07 2130 88 10 89/54 66 100 04/07 2115 93 11 84/52 63 100 04/07 2100 112 13 101/51 74 99 04/07 2045 131 21 100/55 70 86 04/07 2030 115 13 97/56 71 96 04/07 2000 High flow 10 nasal cannula 04/07 2000 36.5 High flow 10 nasal cannula 04/07 2000 124 18 109/73 86 04/07 1955 98 High flow 10 nasal cannula 04/07 1945 112 14 122/67 86 92 04/07 1935 36.4 04/07 1930 112 19 116/77 92 95 04/07 1915 112 14 113/72 87 98 04/07 1900 104 13 131/69 91 100 04/07 1827 Nasal 10 cannula 04/07 1614 138 15 100/51 67 92 Nasal 10 cannula 04/07 1511 Nasal 10 cannula 04/07 1154 100 High flow 15 nasal cannula 24 hour I O ending at 0700: 04/08 0700 04/07 1900 Intake Total 616.60 Output Total 1800 Balance 616.60 -1800 Intake, IV 616.60 Output, 1800 Hemodialysis Medications Active Meds + DC'd Last 24 Hrs Vancomycin HCl (VANCOMYCIN HCL) 1,000 MG MoWeFr@1700 IV (DC) Sodium Chloride (0.9% Sodium Chloride) 250 ML Allopurinol (ZYLOPRIM) 100 MG BEDTIME PO Cinacalcet (SENSIPAR) 30 MG BEDTIME PO Metoprolol Tartrate (LOPRESSOR) 5 MG ONCE ONE IV (DC) Vancomycin HCl (VANCOMYCIN HCL) 1,000 MG TuThSa@2000 IV Sodium Chloride (0.9% Sodium Chloride) 250 ML Amiodarone HCl (Nexterone 360 MG/200 Ml Bag) 200 ML ASDIR IV (CKD) Amiodarone HCl (Nexterone 150 MG/100 Ml Bag) 100 ML STAT STA IV (DC) Apixaban (ELIQUIS) 5 MG BID PO Albumin Human (ALBUMINAR-25% 12.5 GM/50 ML) 25 GM BOLUS PRN IV Mannitol (MANNITOL 25%) 12.5 GM BOLUS PRN IV Sodium Chloride (0.9% Sodium Chloride) 2,000 ML .Q24H PRN IV Apixaban (ELIQUIS) 2.5 MG BID PO (DC) Docusate Sodium (COLACE) 100 MG BID PO Methylprednisolone Sodium Succinate (Solu-MEDROL) 40 MG Q12HR IV Midodrine (PROAMATINE) 5 MG TID PO Senna (SENOKOT) 1 TAB BID PO (CKD) Albumin Human (OPTISON) 3 ML ONCE PRN IV Sevelamer Carbonate (RENVELA) 800 MG C MEALS PO Insulin Human Lispro (HUMALOG) S/SCALE LOW AC HS SUBQ Miscellaneous Information (VANCOMYCIN PHARMACY TO DOSE) 1 EACH ASDIR IV Pantoprazole (PROTONIX) 40 MG DAILY@0600 PO Iopamidol (ISOVUE-370) 100 ML ONCE PRN IV Dextrose/Water (Dextrose 50% W SYRINGE) 50 ML ASDIR PRN IV (CKD) Acetaminophen (TYLENOL) 650 MG Q4H PRN PRN PO Cefepime HCl (MAXIPIME) 1 GM Q24H IV Sterile Water (WATER FOR INJECTION) 10 ML Hydrocodone Bitart/Acetaminophen (NORCO 5/325) 1 TAB Q4H PRN PRN PO Ondansetron HCl (ZOFRAN) 4 MG Q6H PRN PRN IV Physical Exam General appearance: lethargic Head/eyes: PERRL ENT: normal nose Neck: full range of motion, no bruit/NL carotids, no JVD C-Spine clearance: no midline tenderness Cardiovascular: normal heart sounds, no murmur Respiratory: clear to auscultation, no distress Abdomen: non-tender, soft Genitourinary: no gómez Extremities: normal inspection, no edema Musculoskeletal: full range of motion Neuro/GRAIN ELEVATOR MOTOR STARTER: disoriented Results Findings/Data: Laboratory Tests 04/07 1617 Blood Gas Puncture Site (DESCRIPTION ARTKIT) Right Radial ABG pH (7.35 - 7.45 pH units) 7.35 ABG pCO2 (35 - 45 mmHg) 43 ABG pO2 (80 - 100 mmHg) 101 H ABG PO2/FiO2 Ratio (200 mm/Hg) 202.0 ABG HCO3 (22.0 - 26.0 mmol/L) 22.9 ABG O2 Saturation (90 - 100 %) 97 ABG Base Excess (-3.0 - 3.0 mmol/L) -2.7 Michelle Test (POSITIVE Circ.CHK) Yes Vent Mode (Vent Mode Descript) Nasal Cannula FiO2 (21 - 100 % (calc)) 50 Laboratory Tests 04/08 04/08 04/07 04/07 04/07 0741 0424 2032 193 1610 Chemistry Sodium (134 - 147 mmol/L) 139 Potassium (3.4 - 5.0 mmol/L) 4.2 Chloride (100 - 108 mmol/L) 103 Carbon Dioxide (21 - 32 mmol/L) 27 Anion Gap (4.0 - 15.0 GAP calc) 9.0 BUN (7 - 18 MG/DL) 38 H Creatinine (0.8 - 1.3 MG/DL) 7.2 H Glomerular Filtr Rate (>60 estGFR) 10 L Glucose (70 - 110 MG/DL) 123 H POC Glucose (70 - 110 mg/dL) 114 H 128 H 103 136 H Calcium (8.5 - 10.1 MG/DL) 9.6 Total Bilirubin (0.2 - 1.2 MG/DL) 1.00 AST (15 - 37 Unit/L) 88 H ALT (12 - 78 Unit/L) 155 H Total Alk Phosphatase (50 - 136 Unit/L) 147 H Total Protein (6.4 - 8.2 G/DL) 7.0 Albumin (3.4 - 5.0 G/DL) 3.2 L Globulin (GM/dL) 3.8 Albumin/Globulin Ratio (1.2 - 2.2 RATIO) 0.8 L 04/07 1213 Chemistry POC Glucose (70 - 110 mg/dL) 138 H Laboratory Tests 04/08 0424 Hematology WBC (3.5 - 11.0 K/mm3) 18.4 H RBC (4.70 - 6.10 M/mm3) 5.17 Hgb (12.3 - 15.9 G/DL) 12.8 Hct (35.8 - 46.7 %) 43.7 MCV (86.3 - 98.9 Fl) 84.5 L MCH (28.9 - 34.4 pg) 24.8 L MCHC (32.1 - 34.5 G/DL) 29.3 L RDW (11.5 - 14.5 SD) 18.6 H Plt Count (150 - 450 K/mm3) 183 MPV (7.0 - 9.6 fL) 11.90 H Neut % (Auto) (40 - 76 %) 92.1 H Lymph % (Auto) (20.5 - 51.1 %) 3.5 L Haralson % (Auto) (1.7 - 9.3 %) 3.4 Eos % (Auto) (0.0 - 6.0 %) 0.0 Baso % (Auto) (0.0 - 2.0 %) 0.2 Neut # (Auto) (1.8 - 7.6 K/mm3) 16.9 H Lymph # (Auto) (0.6 - 3.0 K/mm3) 0.7 Haralson # (Auto) (0.2 - 1.5 K/mm3) 0.6 Eos # (Auto) (0.0 - 0.4 K/mm3) 0.0 Baso # (Auto) (0.0 - 0.2 K/mm3) 0.0 Abs Immat Gran (auto) (0.00 - 0.03 x10 3/uL) 0.15 H Add Manual Diff (CRITERIA DIFF/SCN) NO Immature Gran % (0.0 - 5.0 %) 0.8 Nucleated RBC % (0.0 - 1.0 /100WBC%) 0.2 Laboratory Tests 04/07 1015 Serology Hep Bs Antigen (NonReactive INDEX) NON REACTIVE Hep Bs Antibody (Immunity>9.9 mIU/mL) <3.1 L Hep B Core Total Ab (Negative) Negative Radiology data: Recent Impressions: CAT SCAN - CT HEAD/BRAIN W/O CONT 04/07 2204 Report Impression - Status: SIGNED Entered: 04/07/20212224 IMPRESSION: No acute finding Impression By: Cristina - Mikki Leonard M.D. Results: labs reviewed Diagnosis, Assessment Plan Free Text A P: 1. end-stage renal disease on hemodialysis. Hemodialysis on Tuesday and Tuesday. Hemodialysis yesterday (04/07), with fluid rmeoval of 1.8 L. Creatinine 7.2. 2. history of hypertension. 3. Recent COVID-19 infection. 4. AFib with RVR. 5. pneumonia. 6. hypercapnic respiratory failure. 7. COPD exacerbation. Recommendations. 04/08: NO need for HD today. 04/07: Hemodialysis today, fluid removal as tolerated, target 2 L.. Renal restriction once patient is able to tolerate p.o.. Limit fluid to 1 L a day. No need for Epogen Drug dose adjustment to GFR. Avoid use of nephrotoxic medications/NSAIDs. Thank you for the consultation, any question please call [phone] Consultants: cardiology, infectious disease, nephrology, pulmonary Plan discussed with: primary care physician, nurse at 1832 RPT #: [id number] END OF REPORT [facility] 2021-04-07 17:22:00 [facility]) Pharmacy Prog.Note-Vancomycin REPORT#:[id number] REPORT STATUS: Signed DATE:04/07/21 TIME:1721 PATIENT: IRA RAYA UNIT #: [id number] ROOM/BED: [place] [id number] : 54 AGE: 65 SEX: M ATTEND: Mandy Devlin MD ADM AUTHOR: Te Ramos [facility] * ALL edits or amendments must be made on the electronic/computer document * Vancomycin Vancomycin Medication Therapy Goal: trough 15-20 mcg/mL Indication for treatment: PNEUMONIA Site of infection: suspected, known Current therapy: VANC DOSING PER LEVEL Day of therapy: DAY 1 Weight: Actual weight (kg): 136.4 Labs: Laboratory Test : 04/06 1920 Chemistry BUN (7 - 18 MG/DL) 49 H Creatinine (0.8 - 1.3 MG/DL) 9.2 H Hematology WBC (3.5 - 11.0 K/mm3) 10.6 Microbiology: 04/07 0000 NASAL: MRSA Screen - COMP 04/06 1920 BLOOD: Blood Culture - RECD 04/06 1910 BLOOD: Blood Culture - RECD Treatment plan: consult, initiation of therapy Regimen: VANC 1G TODAY AFTER DIALYSIS (T, Th, Sat) DOSING PER LEVEL NEXT RANDOM 04/09 @ 0600 at 1723 RPT #: [id number] END OF REPORT [facility] 2021-04-07 16:06:00 [id number] [facility] [address] [place] [address] PATIENT NAME: IRA RAYA ADMIT DATE: 04/07/21 ACCOUNT NO: [id number] ROOM NO: [facility] AGE: 65 REPORT TYPE: eELECTROCARDIOGRAM SEX: M ADMITTING PHYSICIAN: Mandy Devlin MD ATTENDING PHYSICIAN: Mandy Devlin MD Order: [id number] Test Reason : (Not Selected) Test Date/Time Stamp: TueApr 07 2021 16:06:24 Blood Pressure : 094/064 mmHG Vent. Rate : 143 BPM Atrial Rate : 468 BPM P-R Int : 000 ms QRS Dur : 082 ms QT Int : 336 ms P-R-T Axes : 000 -18 102 degrees QTc Int : 518 ms Atrial fibrillation with rapid ventricular response with premature ventricular or aberrantly conducted complexes Septal infarct (cited on or before 07-APR-2021) Abnormal ECG When compared with ECG of 07-APR-2021 00:40, (Unconfirmed) Previous ECG has undetermined rhythm, needs review Confirmed by Mahamed Menendez ([id number]) on 04/12/2021 9:32:18 PM Referred By: Self Referred Confirmed by:Mahamed Menendez at 2132 PATIENT NAME: IRA RAYA [facility] 2021-04-07 15:30:00 [facility] ([facility]) Pulmonary Consultation Note REPORT#:[id number] REPORT STATUS: Signed DATE:04/07/21 TIME:1530 PATIENT: IRA RAYA UNIT #: [id number] ROOM/BED: [place] [address] : 53 AGE: 65 SEX: M ATTEND: Mandy Devlin MD ADM AUTHOR: Noé Granado MD * ALL edits or amendments must be made on the electronic/computer document * History of Present Illness Free Text HPI Notes Free Text HPI Notes: 65 y/o male with PMHx of HTN, CAD, ESRD on HD, , asbestosis, recent COVID-19 infection was sent from [facility] rehab for hypoxia and new onset Afib with RVR. Patient noted ti gave sleep apnea and was somnolent and unable to provide a hx, hx is thus obtained primarily from chart review and discussion with hospitalist Per records, pt was recently admitted at [facility] 03/20-04/03 where he initially presented for AMS, weakness, increased falls. He was found to be hypotensive, hypoglycemia (initial glucose 54) and COVID-19 positive. He was fully vaccinated for COVID-19 per records but unclear of which vaccine and when he received it. He was given steroids and started on midodrine for hypotension and started on Eliquis 2.5mg bid for VTE prophylaxis. He was discharged to [facility] rehab on 04/03. Today he was found to be hypoxic with new onset Afib and sent to the ED. HR was 110s-120s, COVID-19 test was positive, labs otherwise unremarkable Patient not in distress getting HD at this point History - Adult longitudinal Allergies: Coded Allergies: No Allergy Information Available (04/06/21) Objective Physical Exam Vitals: Last Documented: Result Date Time O2 Delivery Nasal cannula 04/07 1511 O2 Flow Rate 10 04/07 1511 Pulse Ox 100 04/07 1154 B/P 153/69 04/07 0802 B/P Mean 97 04/07 0802 Temp 36.4 04/07 0802 Pulse 100 04/07 0802 Resp 17 04/07 0802 Results Findings/Data: Laboratory Tests 04/06/21 1920: [Embedded Image Not Available] Laboratory Tests 04/07 04/07 04/07 04/07 04/07 1213 0755 0600 0600 0600 Chemistry POC Glucose (70 - 110 mg/dL) 138 H 123 H Phosphorus (2.5 - 4.9 MG/DL) 3.9 Magnesium (1.8 - 2.4 MG/DL) 2.4 Ferritin (23.9 - 336.2 ng/mL) 1079.2 H Lactate Dehydrogenase (87 - 241 170 Unit/L) C-Reactive Protein (0.000 - 0.3 MG/DL) 5.920 H TSH (0.340 - 4.820 mcIU/ML) 0.605 04/07 04/07 04/06 04/06 0252 0000 2312 1920 Chemistry Sodium (134 - 147 mmol/L) 134 Potassium (3.4 - 5.0 mmol/L) 3.9 Chloride (100 - 108 mmol/L) 99 L Carbon Dioxide (21 - 32 mmol/L) 21 Anion Gap (4.0 - 15.0 GAP calc) 14.0 BUN (7 - 18 MG/DL) 49 H Creatinine (0.8 - 1.3 MG/DL) 9.2 H Glomerular Filtr Rate (>60 estGFR) 7 L Glucose (70 - 110 MG/DL) 94 Lactic Acid (0.4 - 2.0 mmol/L) 1.4 Calcium (8.5 - 10.1 MG/DL) 10.4 H Troponin I (0.000 - 0.045 NG/ML) 0.032 0.025 0.027 Laboratory Tests 04/07 0600 Coagulation D-Dimer (215 - 500 ng/mLFEU) 775 *H Laboratory Tests 04/06 1920 Hematology WBC (3.5 - 11.0 K/mm3) 10.6 RBC (4.70 - 6.10 M/mm3) 5.89 Hgb (12.3 - 15.9 G/DL) 14.7 Hct (35.8 - 46.7 %) 50.8 H MCV (86.3 - 98.9 Fl) 86.2 L MCH (28.9 - 34.4 pg) 25.0 L MCHC (32.1 - 34.5 G/DL) 28.9 L RDW (11.5 - 14.5 SD) 19.7 H Plt Count (150 - 450 K/mm3) 195 MPV (7.0 - 9.6 fL) 10.80 H Neut % (Auto) (40 - 76 %) 76.3 H Lymph % (Auto) (20.5 - 51.1 %) 9.6 L Haralson % (Auto) (1.7 - 9.3 %) 11.1 H Eos % (Auto) (0.0 - 6.0 %) 1.2 Baso % (Auto) (0.0 - 2.0 %) 0.7 Neut # (Auto) (1.8 - 7.6 K/mm3) 8.1 H Lymph # (Auto) (0.6 - 3.0 K/mm3) 1.0 Haralson # (Auto) (0.2 - 1.5 K/mm3) 1.2 Eos # (Auto) (0.0 - 0.4 K/mm3) 0.1 Baso # (Auto) (0.0 - 0.2 K/mm3) 0.1 Abs Immat Gran (auto) (0.00 - 0.03 x10 3/uL) 0.12 H Add Manual Diff (CRITERIA DIFF/SCN) NO Immature Gran % (0.0 - 5.0 %) 1.1 Nucleated RBC % (0.0 - 1.0 /100WBC%) 0.2 Platelet Estimate (ADEQUATE THOUSAND) ADEQUATE Plt Morphology Comment NORMAL Hypochromasia (NONE ON SCAN) 1+ Laboratory Tests 04/06 2148 Serology SARS CoV-2 RNA Rapid MANNY (Negative) Positive Microbiology Date/Time Procedure - Status Source Growth 04/07 0000 MRSA Screen - COMP NASAL Radiology Data: Recent Impressions: RADIOLOGY - XR CHEST 1 V 04/06 1925 Report Impression - Status: SIGNED Entered: 04/06/20212013 Impression: 1. Bilateral pulmonary infiltrates consistent with bilateral pneumonia. Impression By: [email or web address] - Marco A Vasquez M.D. RADIOLOGY - XR CHEST 1 V 04/06 2235 Report Impression - Status: SIGNED Entered: 04/06/2021 2258 IMPRESSION: New left IJ line in place. No pneumothorax. Bilateral infiltrates without significant change. Impression By: [email or web address] - Beto Cassidy M.D. CAT SCAN - CTA CHEST FOR PE 04/07 0210 Report Impression - Status: SIGNED Entered: 04/07/2021 0239 Impression: 1. Patchy multifocal groundglass infiltrates suggest Covid pneumonia. 2. Polycystic change of either kidney. Impression By: [email or web address] - Ira Rosen M.D. Free Text Obj Notes Free Text Obj Notes: General appearance: Alert and oriented not in distress Head and neck. Normocephalic atraumatic, no pallor no jaundice, no goiter CV: S1-S2 regular rate and rhythm, no murmur Lungs: Fair air entry bilaterally, no rales no wheezes no rhonchi Abdomen: Soft lax nontender, no masses Extremities: No lower limb edema, no cyanosis no clubbing Neurologic: Alert and oriented, intact cranial nerves, no focal deficit Skin: Intact, no lesions Lymphatic: No lymphadenopathy appreciated Diagnosis, Assessment Plan Free Text DxA P Notes Free Text DxA P Notes: 1. Hypercapnic hypoxic respiratory failure 2. Atrial fibrillation with rapid ventricular response 3, COPD with acute exacerbation 4. Recent Covid infection 5. End-stage renal disease on hemodialysis Seen and examined at bedside Patient is lethargic Likely hypercapnic Stat ABGs ordered Patient to be started on BiPAP ST 18/10 with FiO2 50% Taper oxygen to maintain saturation between 90 to 94% Avoid hyperoxygenation cover with IV steroids IV antibiotics Nephrology is on board undergoing hemodialysis Monitor mental status Monitor input and output rate control Full anticoagulation at 1546 RPT #: [id number] END OF REPORT [facility] 2021-04-07 14:19:00 [facility] ([facility]) Clinical Note REPORT#:[id number] REPORT STATUS: Signed DATE:04/07/21 TIME:1419 PATIENT: IRA RAYA UNIT #: [id number] ROOM/BED: [place] [id number] : [id number] AGE: 65 SEX: M ATTEND: Mandy Devlin MD ADM AUTHOR: Rome Tyler MD * ALL edits or amendments must be made on the electronic/computer document * Clinical Note Note: 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 fib with RVR. Heart rate seems to be improving. Continue metoprolol. Echo pending. Cardiology on board. Currently on Eliquis continue with that but might need to adjust the dosage. Acute hypoxia with recent Covid Patient CAT scan does not show that much Covid disease could be some fluid overload with dialysis or HCAP. Continue broad-spectrum antibiotics steroids infectious disease on board. Continue supplemental oxygen to keep O2 sat above 90%. Currently on 10 L Altered mental status Not sure of the exact etiology. Will get CT head if does not improve then will consider further work-up. End-stage renal disease on dialysis Nephrology on board continue management as per them. at 1419 RPT #: [id number] END OF REPORT [facility] 2021-04-07 10:59:00 [facility] ([facility]) Infect Disease Consult Note REPORT#:[id number] REPORT STATUS: Signed DATE:04/07/21 TIME:1059 PATIENT: IRA RAYA UNIT #: [id number] ROOM/BED: [place] [id number] : 54 AGE: 65 SEX: M ATTEND: Mandy Devlin MD ADM AUTHOR: Arnold Nance MD * ALL edits or amendments must be made on the electronic/computer document * History of Present Illness Reason for consult: Sepsis, covid-19 HPI: 65 yo male with PMHx of HTN, CAD, ESRD on TuThSat HD, gout, asbestosis, recent COVID-19, who was sent from [facility] for hypoxia and new onset Afib with RVR. Per records, pt was admitted at [facility] 03/20-04/03 where he initially presented for confusion associated with weakness and falls. He was found to be hypotensive, hypoglycemic and COVID-19 positive. He was fully vaccinated for COVID-19 per records. He was given steroids and started on midodrine for hypotension. He was discharged to [facility]hab on 04/03. He was found to be hypoxic with new onset Afib and sent to the ED. HR was 110s-120s, COVID-19 test was positive. CXR showed bilateral infiltrates. Pt was placed on NRB 15L and admitted to IM. History - Adult longitudinal Past medical history: Reports: Hypertension. Additional family history: Unknown Smoking status: Smoking status for patients 13 years old or older: Unknown,if ever smoked Allergies: Coded Allergies: No Allergy Information Available (04/06/21) Review of Systems Constitutional: Reports: fatigue. Allergy/Immun: Denies hives Eyes: Denies discharge ENT: Denies: sore throat. Respiratory: Reports: HWANG (dyspnea on exertion). Cardiovascular: Denies: chest pain. GI: Denies: abdominal pain. : Denies: dysuria. Musculoskeletal: Denies: joint swelling. Neuro: Denies: headache. Objective General VS/I O: Last Documented: Result Date Time O2 Delivery Nasal cannula 04/07 1827 O2 Flow Rate 10 04/07 182 Pulse Ox 92 04/07 1614 B/P 100/51 04/07 1614 B/P Mean 67 04/07 1614 Pulse 138 04/07 1614 Resp 15 04/07 1614 Temp 36.4 04/07 0802 Vital Signs Date Temp Pulse Resp B/P B/P Mean Pulse Ox FiO2 04/06-04/07 36.4-37.1 91-138 12-22 86-154/46-85 59-102 88-100 24 hour I O ending at 0700: 04/07 0700 04/06 1900 Intake Total Output Total Balance Patient 136.4 kg Weight Weight Bed scale Measurement Method PATIENT WEIGHT: Weight (lb): Weight (oz): Weight (kg): 136.400 Physical Exam General appearance: chronically ill appearing, alert, awake Head/Eyes: atraumatic, clear cornea, normal conjunctiva/sclera, normal eyelids/ periorb, normocephalic ENT: moist mucosal membranes, normal nose Neck: full range of motion, non-tender, supple/no meningismus, no masses or swelling Cardiovascular: tachycardia Respiratory: on oxygen, symmetric expansion Abdomen: non-tender, normal bowel sounds, soft, no CVA tenderness, no distention , no guarding, no mass/organomegaly, no rebound Genitourinary: no flank pain Extremities: no clubbing, no cyanosis Musculoskeletal: no joint swelling Neuro/GRAIN ELEVATOR MOTOR STARTER: alert, oriented X 3, normal speech Skin: normal color, no rash Psychiatry: unable to evaluate Diagnosis, Assessment Plan Free Text DxA P Notes Free text DxA P notes: Laboratory Tests 04/06/211919: [Embedded Image Not Available] Imaging: CTA GGOs, no PE 04/07 CXR b/l infiltrates 04/06 Assessment: 1. Sepsis. 2. Probable HCAP. 3. Acute respiratory failure with hypoxia due to PNA vs. pulmonary congestion. 4. Recent covid-19. Vaccinated. 5. ESRD. 6. Afib with RVR. Plan: 1. Agree with empiric vancomycin and cefepime (day 1). 2. F/u MRSA screening. 3. F/u blood cxs. 4. Monitor CBC. 5. Check LFTs. Thank you for this consult. at 1845 RPT #: [id number] END OF REPORT [facility] 2021-04-07 09:44:00 [facility] ([facility]) Nephrology Consultation Note REPORT#:[id number] REPORT STATUS: Signed DATE:04/07/21 TIME:943 PATIENT: IRA RAYA UNIT #: [id number] ROOM/BED: [place] [id number] : 54 AGE: 65 SEX: M ATTEND: Mandy Devlin MD ADM AUTHOR: Genaro Gupta MD * ALL edits or amendments must be made on the electronic/computer document * History of Present Illness Requesting clinician: Dr Devlin Reason for consult: ESRD Free Text HPI Notes Free Text HPI Notes: 65-year-old male with history of hypertension, end-stage renal disease on hemodialysis, recent COVID-19 infection, transfer from [facility] the because of hypoxia. Patient lethargic. Patient is end-stage renal disease on hemodialysis, hemodialysis on Tuesday and Tuesday. Last hemodialysis on Tuesday. Patient lethargic. Renal is consulted for continuation of hemodialysis as inpatient. History - Adult longitudinal Smoking status: Smoking status for patients 13 years old or older: Unknown,if ever smoked Allergies: Coded Allergies: No Allergy Information Available (04/06/21) Review of Systems Unable to obtain due to: Lethargic. Objective General VS/I O: Vital Signs: Date Time Temp Pulse Resp B/P B/P Pulse O2 O2 Flow FiO2 Mean Ox Delivery Rate 04/07 1614 138 15 100/51 67 92 Nasal 10 cannula 04/07 1511 Nasal 10 cannula 04/07 1154 100 High flow 15 nasal cannula 04/07 0802 36.4 100 17 153/69 97 96 Nasal 15 cannula 04/07 0600 111 12 120/68 85 98 High flow nasal cannula 04/07 0500 100 14 114/68 83 99 High flow nasal cannula 04/07 0400 106 15 126/64 84 98 High flow nasal cannula 04/07 0325 107 18 98 15 04/07 0311 High flow nasal cannula 04/07 0300 99 18 127/75 92 98 High flow nasal cannula 04/07 0200 91 16 136/60 85 97 Non rebreather mask 04/07 0130 122 17 142/82 102 94 Non rebreather mask 04/07 0100 121 22 154/72 99 93 Non rebreather mask 04/07 0040 121 18 142/80 100 93 Non rebreather mask 04/07 0000 128 18 137/67 90 93 Non rebreather mask 04/06 2300 132 21 122/58 79 98 Non rebreather mask 04/06 2200 100 18 111/60 77 88 Non 15 rebreather mask 04/06 2153 108 22 124/63 83 90 Room air 04/06 2100 105 19 86/46 59 90 Non rebreather mask 04/06 2050 106 16 95/50 65 94 Non rebreather mask 04/06 193 96 Nasal 4 cannula 04/06 1930 106 16 123/85 97 92 Non rebreather mask 04/06 1924 37.1 128 20 135/82 99 96 Nasal 4 cannula 04/06 1913 Nasal 4 cannula 24 hour I O ending at 0700: 04/07 0700 04/06 1900 Intake Total Output Total Balance Patient 136.4 kg Weight Weight Bed scale Measurement Method PATIENT WEIGHT: Weight (lb): Weight (oz): Weight (kg): 136.400 Medications: Active Meds + DC'd Last 24 Hrs Vancomycin HCl (VANCOMYCIN HCL) 1,000 MG MoWeFr@1700 IV (DC) Sodium Chloride (0.9% Sodium Chloride) 250 ML Allopurinol (ZYLOPRIM) 100 MG BEDTIME PO Cinacalcet (SENSIPAR) 30 MG BEDTIME PO Vancomycin HCl (VANCOMYCIN HCL) 1,000 MG TuThSa@2000 IV Sodium Chloride (0.9% Sodium Chloride) 250 ML Apixaban (ELIQUIS) 5 MG BID PO Albumin Human (ALBUMINAR-25% 12.5 GM/50 ML) 25 GM BOLUS PRN IV Mannitol (MANNITOL 25%) 12.5 GM BOLUS PRN IV Sodium Chloride (0.9% Sodium Chloride) 2,000 ML .Q24H PRN IV Apixaban (ELIQUIS) 2.5 MG BID PO (DC) Docusate Sodium (COLACE) 100 MG BID PO Methylprednisolone Sodium Succinate (Solu-MEDROL) 40 MG Q12HR IV Midodrine (PROAMATINE) 5 MG TID PO Senna (SENOKOT) 1 TAB BID PO (CKD) Albumin Human (OPTISON) 3 ML ONCE PRN IV Sevelamer Carbonate (RENVELA) 800 MG C MEALS PO Insulin Human Lispro (HUMALOG) S/SCALE LOW AC HS SUBQ Miscellaneous Information (VANCOMYCIN PHARMACY TO DOSE) 1 EACH ASDIR IV Pantoprazole (PROTONIX) 40 MG DAILY@0600 PO Iopamidol (ISOVUE-370) 100 ML ONCE PRN IV Sodium Chloride (SODIUM CHLORIDE 0.9%) 100 ML ONCE PRN IV (DC) Dextrose/Water (Dextrose 50% W SYRINGE) 50 ML ASDIR PRN IV (CKD) Acetaminophen (TYLENOL) 650 MG Q4H PRN PRN PO Cefepime HCl (MAXIPIME) 1 GM Q24H IV Sterile Water (WATER FOR INJECTION) 10 ML Hydrocodone Bitart/Acetaminophen (NORCO 5/325) 1 TAB Q4H PRN PRN PO Metoprolol Tartrate (LOPRESSOR) 5 MG ONCE ONE IV (DC) Ondansetron HCl (ZOFRAN) 4 MG Q6H PRN PRN IV Vancomycin HCl (VANCOMYCIN HCL) 1,000 MG ONCE ONE IV (DC) Sodium Chloride (0.9% Sodium Chloride) 250 ML Dexamethasone Sodium Phosphate (DECADRON) 8 MG X1ED STA IV (CAN) Promethazine HCl (PHENERGAN) 25 MG X1ED STA IM (DC) Ondansetron HCl (ZOFRAN) 4 MG X1ED STA IV (DC) Ondansetron HCl (ZOFRAN) 4 MG X1ED STA IV (DC) Dexamethasone Sodium Phosphate (DECADRON) 8 MG X1ED STA IV (DC) Azithromycin (ZITHROMAX) 500 MG X1ED STA IV (DC) Sodium Chloride (0.9% Sodium Chloride) 250 ML Ceftriaxone Sodium (ROCEPHIN) 1,000 MG X1ED STA IV (DC) Sodium Chloride (SODIUM CHLORIDE 0.9%) 100 ML Sodium Chloride (0.9% Sodium Chloride) 1,000 ML X1ED STA IV (DC) Physical Exam General appearance: lethargic Head/eyes: PERRL ENT: normal nose Neck: full range of motion, no JVD C-Spine clearance: no midline tenderness Cardiovascular: no murmur Respiratory: clear to auscultation, no distress Abdomen: non-tender, soft Genitourinary: no gómez Extremities: no edema Musculoskeletal: full range of motion Neuro/GRAIN ELEVATOR MOTOR STARTER: disoriented Results Findings/Data: Laboratory Tests 04/07 04/07 04/07 04/07 04/07 0755 0600 0600 0252 0000 Chemistry POC Glucose (70 - 110 mg/dL) 123 H Phosphorus (2.5 - 4.9 MG/DL) 3.9 Magnesium (1.8 - 2.4 MG/DL) 2.4 Lactate Dehydrogenase (87 - 241 Unit/L) 170 Troponin I (0.000 - 0.045 NG/ML) 0.032 0.025 C-Reactive Protein (0.000 - 0.3 MG/DL) 5.920 H TSH (0.340 - 4.820 mcIU/ML) 0.605 04/06 04/06 2312 1920 Chemistry Sodium (134 - 147 mmol/L) 134 Potassium (3.4 - 5.0 mmol/L) 3.9 Chloride (100 - 108 mmol/L) 99 L Carbon Dioxide (21 - 32 mmol/L) 21 Anion Gap (4.0 - 15.0 GAP calc) 14.0 BUN (7 - 18 MG/DL) 49 H Creatinine (0.8 - 1.3 MG/DL) 9.2 H Glomerular Filtr Rate (>60 estGFR) 7 L Glucose (70 - 110 MG/DL) 94 Lactic Acid (0.4 - 2.0 mmol/L) 1.4 Calcium (8.5 - 10.1 MG/DL) 10.4 H Troponin I (0.000 - 0.045 NG/ML) 0.027 Laboratory Tests 04/07 0600 Coagulation D-Dimer (215 - 500 ng/mLFEU) 775 *H Laboratory Tests 04/06 1920 Hematology WBC (3.5 - 11.0 K/mm3) 10.6 RBC (4.70 - 6.10 M/mm3) 5.89 Hgb (12.3 - 15.9 G/DL) 14.7 Hct (35.8 - 46.7 %) 50.8 H MCV (86.3 - 98.9 Fl) 86.2 L MCH (28.9 - 34.4 pg) 25.0 L MCHC (32.1 - 34.5 G/DL) 28.9 L RDW (11.5 - 14.5 SD) 19.7 H Plt Count (150 - 450 K/mm3) 195 MPV (7.0 - 9.6 fL) 10.80 H Neut % (Auto) (40 - 76 %) 76.3 H Lymph % (Auto) (20.5 - 51.1 %) 9.6 L Haralson % (Auto) (1.7 - 9.3 %) 11.1 H Eos % (Auto) (0.0 - 6.0 %) 1.2 Baso % (Auto) (0.0 - 2.0 %) 0.7 Neut # (Auto) (1.8 - 7.6 K/mm3) 8.1 H Lymph # (Auto) (0.6 - 3.0 K/mm3) 1.0 Haralson # (Auto) (0.2 - 1.5 K/mm3) 1.2 Eos # (Auto) (0.0 - 0.4 K/mm3) 0.1 Baso # (Auto) (0.0 - 0.2 K/mm3) 0.1 Abs Immat Gran (auto) (0.00 - 0.03 x10 3/uL) 0.12 H Add Manual Diff (CRITERIA DIFF/SCN) NO Immature Gran % (0.0 - 5.0 %) 1.1 Nucleated RBC % (0.0 - 1.0 /100WBC%) 0.2 Platelet Estimate (ADEQUATE THOUSAND) ADEQUATE Plt Morphology Comment NORMAL Hypochromasia (NONE ON SCAN) 1+ Laboratory Tests 04/06 2148 Serology SARS CoV-2 RNA Rapid MANNY (Negative) Positive Radiology data: Recent Impressions: RADIOLOGY - XR CHEST 1 V 04/06 1925 Report Impression - Status: SIGNED Entered: 04/06/20212013 Impression: 1. Bilateral pulmonary infiltrates consistent with bilateral pneumonia. Impression By: [email or web address] - Marco A Vasquez M.D. RADIOLOGY - XR CHEST 1 V 04/06 2235 Report Impression - Status: SIGNED Entered: 04/06/20212257 IMPRESSION: New left IJ line in place. No pneumothorax. Bilateral infiltrates without significant change. Impression By: [email or web address] - Mohammad Ange, M.D. CAT SCAN - CTA CHEST FOR PE 04/07 0210 Report Impression - Status: SIGNED Entered: 04/07/2021 0239 Impression: 1. Patchy multifocal groundglass infiltrates suggest Covid pneumonia. 2. Polycystic change of either kidney. Impression By: [email or web address] - Ira Rosen M.D. Diagnosis, Assessment Plan Plan discussed with: primary care physician, nurse Free Text DxA P Notes Free Text DxA P Notes: 1. end-stage renal disease on hemodialysis. Hemodialysis on Tuesday and Tuesday. 2. history of hypertension. 3. Recent COVID-19 infection. 4. AFib with RVR. 5. pneumonia. 6. hypercapnic respiratory failure. 7. COPD exacerbation. Recommendations. Hemodialysis today, fluid removal as tolerated, target 2 L.. Renal restriction once patient is able to tolerate p.o.. Limit fluid to 1 L a day. No need for Epogen Thank you for the consultation, any question please call [phone] at 1704 RPT #: [id number] END OF REPORT [facility] 2021-04-07 09:12:00 [facility] ([facility]) Cardiology Consultation REPORT#:[id number] REPORT STATUS: Signed DATE:04/07/21 TIME:911 PATIENT: IRA RAYA UNIT #: [id number] ROOM/BED: [place] [id number] : 54 AGE: 65 SEX: M ATTEND: Mandy Devlin MD ADM AUTHOR: Rishabh Robbins MD * ALL edits or amendments must be made on the electronic/computer document * History of Present Illness HPI Reason for consult: AF RVR Chief complaint: confused Free Text HPI Notes Free Text HPI Notes: Cardiology consulted for AF RVR. At the time of my interview pt was confused and could not provide history. HD is being done now. History gathered from the chart. 65 y/o male with PMHx of HTN, CAD, ESRD on TuThSat HD, gout, asbestosis, recent COVID-19 infection was sent from [facility] for hypoxia and new onset (?) Afib with RVR. Today he was found to be hypoxic with Afib RVR and sent to the ED. HR was 110s- 120s, COVID-19 test was positive, labs otherwise unremarkable. CXR showed bilateral infiltrates. Pt was placed on NRB 15L and admitted to IMCU for further management. History - Adult longitudinal Smoking status: Smoking status for patients 13 years old or older: Unknown,if ever smoked Allergies: Coded Allergies: No Allergy Information Available (04/06/21) Review of Systems Unable to obtain due to: confused hypoglycemia Objective General VS/I O: Vital Signs: Date Time Temp Pulse Resp B/P B/P Pulse O2 O2 Flow FiO2 Mean Ox Delivery Rate 04/11 2145 94 17 106/60 78 100 04/11 2130 94 17 112/56 77 92 10 2100 93 19 111/57 82 100 10 2031 91 24 116/57 80 85 04/11 2030 91 10 100 04/11 2001 112 21 116/74 89 72 101999 36.9 04/11 2000 95 22 93 10 1930 94 19 127/59 85 100 10 1900 93 17 105/59 76 96 10 1830 90 16 124/62 85 100 10 1800 93 28 119/61 81 97 10 1730 93 16 122/58 84 96 10 1701 92 19 100/71 81 100 10 1630 92 10 1630 5 130/60 87 100 10 1619 36.6 04/11 1600 94 18 106/74 85 100 10 1530 83 18 120/62 83 10 1500 84 15 107/55 74 71 / 1459 96 Room air 21 10 1430 84 10/ 1430 12 125/67 90 10 1400 85 14 125/80 92 10 1330 83 26 103/67 80 10/ 1300 92 18 88/57 65 10/ 1230 86 10 110/58 79 10/ 1201 104/72 81 10/ 1200 87 21 10 1130 86 20 107/53 77 49 10/ 1129 36.5 10 1100 90 15 117/69 86 100 10/ 1000 92 17 107/54 75 93 10/ 0930 98 14 90/55 68 70 10/ 0900 101 16 100 10/ 0830 101 17 103/56 73 10/02 0800 Nasal 3 cannula 10/ 0800 97 18 119/56 81 92 10/ 0757 36.7 10/ 0730 95 20 98/56 74 84 10/ 0700 94 15 97/54 70 93 10/ 0530 98 10 107/50 70 94 10/ 0515 97 11 118/57 76 92 10/02 0501 94 9 113/53 76 96 10/02 0446 98 16 108/44 64 93 10/ 0430 99 16 117/56 77 93 10/02 0425 99 95 50 10/02 0415 97 18 118/56 80 94 10/ 0400 37.0 96 19 107/52 71 93 10/02 0345 96 17 112/58 79 94 10/02 0330 94 14 128/56 81 95 10/02 0315 92 10 109/56 80 97 10/02 0300 95 9 111/53 76 97 10/02 0245 94 17 117/55 78 94 10/02 0230 97 16 115/60 80 96 10/02 0215 96 9 100/55 74 93 10/02 0200 98 13 115/56 81 96 10/02 0146 97 16 132/64 87 93 10/02 0130 99 15 120/56 81 94 10/02 0115 95 20 113/58 82 94 10/02 0100 97 17 114/57 77 94 10/02 0045 94 16 113/59 82 94 10/02 0030 95 16 114/55 79 94 10/02 0015 96 15 115/56 77 95 10/02 0000 2.6 94 18 127/60 86 93 04/10 2355 88 93 50 04/10 2345 93 15 132/64 92 94 04/10 2330 89 19 137/67 96 93 04/10 231 90 12 132/68 93 93 04/10 2304 94 18 131/62 89 93 04/105 88 18 135/58 84 90 04/10 2230 93 16 131/60 86 94 04/105 91 19 122/63 84 93 24 hour I O ending at 0700: 04/11 0700 04/10 1900 Intake Total 840 Output Total Balance 840 Intake, Oral 840 PATIENT WEIGHT: Weight (lb): Weight (oz): Weight (kg): 136.400 Physical Exam General appearance: altered mental status, obese Cardiovascular: CV assessment: irregularly irregular, tachycardia Respiratory: clear to auscultation Abdomen: (fatty), soft Neuro/GRAIN ELEVATOR MOTOR STARTER: altered mental status Diagnosis, Assessment Plan Problem List/A P: 1. New onset a-fib 2. Chronic hypotension 3. Acute on chronic respiratory failure with hypoxia 4. ESRD on dialysis 5. Hypoxia 6. Pneumonia due to COVID-19 virus Consultants: cardiology, infectious disease, nephrology, pulmonary Free Text DxA P Notes Free Text DxA P Notes: 1) AMS: multifactorial, hypoglycemia 2) ESRD on HD Tue, , Sat 3) Recent covid 4) Respiratory distress 5) hypoglycemia 6) AF RVR: normal BP, start IV amiodarone drip, new onset is uncertain so I dont proceed with cardioversion at 2213 RPT #: [id number] END OF REPORT [facility] 2021-04-07 01:00:00 [facility] ([facility]) Hospitalist History Physical REPORT#:[id number] REPORT STATUS: Signed DATE:04/07/21 TIME:010 PATIENT: IRA RAYA UNIT #: [id number] ROOM/BED: [place] [address] : 54 AGE: 65 SEX: M ATTEND: Mandy Devlin MD ADM AUTHOR: Karla Dumont * ALL edits or amendments must be made on the electronic/computer document * Karla Dumont 04/07/21 0100: History of Present Illness HPI Chief complaint: hypoxia, new onset Afib HPI: 65 y/o male with PMHx of HTN, CAD, ESRD on TuThSat HD, gout, asbestosis, recent COVID-19 infection was sent from [facility] rehab for hypoxia and new onset Afib with RVR. Hx is very limited as pt is somnolent and unable to provide a hx, hx is thus obtained primarily from chart review and discussion with ED staff. Per records, pt was recently admitted at [facility] 03/20-04/03 where he initially presented for AMS, weakness, increased falls. He was found to be hypotensive, hypoglycemia (initial glucose 54) and COVID-19 positive. He was fully vaccinated for COVID-19 per records but unclear of which vaccine and when he received it. He was given steroids and started on midodrine for hypotension and started on Eliquis 2.5mg bid for VTE prophylaxis. He was discharged to [facility] on 04/03. Today he was found to be hypoxic with new onset Afib and sent to the ED. HR was 110s-120s, COVID-19 test was positive, labs otherwise unremarkable. CXR showed bilateral infiltrates. Pt was placed on NRB 15L and admitted to IM for further management. History Social History Smoking status: Smoking status for patients 13 years old or older: Unknown,if ever smoked Medication/Allergy-Vaccine Hx Allergies: Coded Allergies: No Allergy Information Available (04/06/21) Review of Systems Unable to obtain due to: AMS Physical Exam VS/I O: Vital Signs Date Temp Pulse Resp B/P B/P Mean Pulse Ox FiO2 04/06 98.7 100-128 16-22 86-135/46-85 59-99 88-96 Last Documented: Result Date Time Pulse Ox 88 04/06 2200 B/P 111/60 04/06 2200 B/P Mean 77 04/06 2200 O2 Delivery Non rebreather mask 04/06 2200 O2 Flow Rate 15 04/06 2200 Pulse 100 04/06 2200 Resp 18 04/06 2200 Temp 98.7 04/06 1924 24 hour I O ending at 0700: 04/07 0700 04/06 1900 Intake Total Output Total Balance Patient 136.4 kg Weight Weight Bed scale Measurement Method Patient Weight and BMI Weight (kg): 136.400 BMI: 40.8 General appearance: obese, somnolent but arousable, not answering questions Head/Eyes: atraumatic, normocephalic ENT: on NRB mask Neck: supple/no meningismus, no JVD Cardiovascular: irregularly irregular, tachycardic Respiratory: decreased breath sounds, hypoxia, on oxygen (15L NRB) Abdomen: obese, non-tender, soft Extremities: moves all, no edema Neuro/GRAIN ELEVATOR MOTOR STARTER: somnolent but arousable Results Findings/Data: Laboratory Tests: 04/07 04/06 04/06 04/06 0000 2312 2277 3946 Chemistry Sodium (134 - 147 mmol/L) 134 Potassium (3.4 - 5.0 mmol/L) 3.9 Chloride (100 - 108 mmol/L) 99 L Carbon Dioxide (21 - 32 mmol/L) 21 Anion Gap (4.0 - 15.0 GAP calc) 14.0 BUN (7 - 18 MG/DL) 49 H Creatinine (0.8 - 1.3 MG/DL) 9.2 H Glomerular Filtr Rate (>60 estGFR) 7 L Glucose (70 - 110 MG/DL) 94 Lactic Acid (0.4 - 2.0 mmol/L) 1.4 Calcium (8.5 - 10.1 MG/DL) 10.4 H Troponin I (0.000 - 0.045 NG/ML) 0.025 0.027 Hematology WBC (3.5 - 11.0 K/mm3) 10.6 RBC (4.70 - 6.10 M/mm3) 5.89 Hgb (12.3 - 15.9 G/DL) 14.7 Hct (35.8 - 46.7 %) 50.8 H MCV (86.3 - 98.9 Fl) 86.2 L MCH (28.9 - 34.4 pg) 25.0 L MCHC (32.1 - 34.5 G/DL) 28.9 L RDW (11.5 - 14.5 SD) 19.7 H Plt Count (150 - 450 K/mm3) 195 MPV (7.0 - 9.6 fL) 10.80 H Neut % (Auto) (40 - 76 %) 76.3 H Lymph % (Auto) (20.5 - 51.1 %) 9.6 L Haralson % (Auto) (1.7 - 9.3 %) 11.1 H Eos % (Auto) (0.0 - 6.0 %) 1.2 Baso % (Auto) (0.0 - 2.0 %) 0.7 Neut # (Auto) (1.8 - 7.6 K/mm3) 8.1 H Lymph # (Auto) (0.6 - 3.0 K/mm3) 1.0 Haralson # (Auto) (0.2 - 1.5 K/mm3) 1.2 Eos # (Auto) (0.0 - 0.4 K/mm3) 0.1 Baso # (Auto) (0.0 - 0.2 K/mm3) 0.1 Abs Immat Gran (auto) (0.00 - 0.03 x10 3/uL) 0.12 H Add Manual Diff (CRITERIA DIFF/SCN) NO Immature Gran % (0.0 - 5.0 %) 1.1 Nucleated RBC % (0.0 - 1.0 /100WBC%) 0.2 Platelet Estimate (ADEQUATE THOUSAND) ADEQUATE Plt Morphology Comment NORMAL Hypochromasia (NONE ON SCAN) 1+ Serology SARS CoV-2 RNA Rapid MANNY (Negative) Positive Laboratory Tests 04/06/211919: [Embedded Image Not Available] Radiology data: Recent Impressions: RADIOLOGY - XR CHEST 1 V 04/06 1925 Report Impression - Status: SIGNED Entered: 04/06/20212013 Impression: 1. Bilateral pulmonary infiltrates consistent with bilateral pneumonia. Impression By: [email or web address] - Marco A Vasquez M.D. RADIOLOGY - XR CHEST 1 V 04/06 2235 Report Impression - Status: SIGNED Entered: 04/06/20212257 IMPRESSION: New left IJ line in place. No pneumothorax. Bilateral infiltrates without significant change. Impression By: [email or web address] - Beto Cassidy M.D. Diagnosis, Assessment Plan Problem List/A P: 1. Acute on chronic respiratory failure with hypoxia - previously on 2L at rehab, now on 15L NRB - admit to IMCU for close monitoring under continuous telemetry - pt is vaccinated, initially dx with COVID-19 on 03/20, test still positive here - possible superimposed bacterial PNA vs HCAP PNA - will also get CTA Chest to rule out PE - empiric IV Vanc and Cefepime abx, follow cultures - IV solumedrol 40mg BID - consult Infectious Disease - consult Pulmonology 2. Pneumonia due to COVID-19 virus - as above 3. New onset a-fib - new onset Afib with RVR HR currently 110s-120s, will give IV metoprolol 5mgx1 - check serum electrolytes, TSH - check echocardiogram - consult Cardiology 4. ESRD on dialysis - hx of ESRD on TuThSat HD - will consult Nephrology ot arrange inpatient HD 5. Chronic hypotension - continue home midodrine Free Text A P: DVT prophylaxis- continue home Eliquis Consultants: cardiology, infectious disease, nephrology, pulmonary Resuscitation discussion: Discussed with: pt's daughter Bautista Raya ([phone]) Code status: full code at 0119 at 0540 RPT #: [id number] END OF REPORT [facility] 2021-04-07 00:40:00 [id number] [facility] [address] [place] [address] PATIENT NAME: IRA RAYA ADMIT DATE: 04/07/21 ACCOUNT NO: [id number] ROOM NO: [facility] AGE: 65 REPORT TYPE: eELECTROCARDIOGRAM SEX: M ADMITTING PHYSICIAN: Mandy Devlin MD ATTENDING PHYSICIAN: Mandy Devlin MD Order: [id number] Test Reason : (Not Selected) Test Date/Time Stamp: TueApr 07 2021 00:40:25 Blood Pressure : 133/103 mmHG Vent. Rate : 127 BPM Atrial Rate : 441 BPM P-R Int : 000 ms QRS Dur : 092 ms QT Int : 312 ms P-R-T Axes : 000 003 094 degrees QTc Int : 453 ms Undetermined rhythm Low voltage QRS Septal infarct , age undetermined Abnormal ECG No previous ECGs available Confirmed by Mahamed Menendez ([id number]) on 04/12/2021 9:31:58 PM Referred By: Self Referred Confirmed by:Mahamed Menendez at 2131 PATIENT NAME: IRA RAYA [facility] 2021-04-06 19:21:00 [facility] ([facility]) EMERGENCY PROVIDER REPORT REPORT#:[id number] REPORT STATUS: Signed DATE:04/06/21 TIME:1920 PATIENT: IRA RAYA UNIT #: [id number] ROOM/BED: [place] [address] : 54 AGE: 65 SEX: M PCP PHYS: No Primary or Family Physician SERVICE AUTHOR: Skip Rollins MD * ALL edits or amendments must be made on the electronic/computer document * See Addendum HPI-Palpit/Arrhyth Free Text HPI Notes Free Text HPI Notes 65-year-old male with multiple medical issues including end-stage renal disease, A. fib presents to the emergency department from a senior care for elevated heart rate and hypoxia. Of note the patient was tested positive for Covid on 21 March. HPI limited secondary to patient condition General Initial Greet Date/Time 04/06/211854 Presentation Chief Complaint Palpitations Review of Systems ROS Statements Unable to Obtain ROS Patient condition Past Medical History - Adult Stated Complaint HYPOTENSION/LOW O2 SAT/ AFIB WITH RVR Allergies Coded Allergies: No Allergy Information Available (04/06/21) Calculated Suicide Risk (nurs) No risk Smoking status: Smoking status for patients 13 years old or older: Unknown,if ever smoked Physical Exam Vital Signs Vital Signs First Documented: Result Date Time O2 Delivery Nasal cannula 04/06 1913 O2 Flow Rate 4 04/06 1913 Pulse Ox 96 04/06 1924 B/P 135/82 04/06 1924 B/P Mean 99 04/06 1924 Temp 37.1 04/06 1924 Pulse 128 04/06 192 Resp 20 04/06 1924 Last Documented: Result Date Time Pulse Ox 93 04/07 0000 B/P 137/67 04/07 0000 B/P Mean 90 04/07 0000 O2 Delivery Non rebreather mask 04/07 0000 Pulse 128 04/07 0000 Resp 18 04/07 0000 O2 Flow Rate 15 04/06 2200 Temp 37.1 04/06 1924 Review of Vital Signs Reviewed Focused PE General/Const General/Const Awake, Alert Text/Dict Notes Obese ill-appearing MS Head Head Atraumatic, Normocephalic Eyes Eyes PERRL Ears/Nose/Throat Ears/Nose/Throat Airway patent, Mucous membranes moist, Pharynx NL MS Neck Neck Supple, Full range of motion, No swelling, Non-tender Resp/Chest Respiratory/Chest Breath sounds = bilat, No respiratory distress, No rales, No wheezing Text/Dict Notes Scattered rhonchi to auscultation bilaterally Cardiovascular Cardiovascular Heart sounds NL, No murmurs, Cap refill not delayed, Peripheral circulation NL Heart Rate/Rhythm Tachycardia, Irreg irregular rhythm. Abdomen/GI Abdomen/GI Soft, Non-tender, No guarding, No rebound MS Lower Extrem Lower Ext/Pelvis/MS Inspection NL, No swelling, Non-tender, No erythema, No deformity, Neurologic intact, Vascular intact, No edema Skin Skin Color NL, Warm, Dry, Turgor NL Neurologic Neurologic Speech NL, No motor deficits Text/Dict Notes Somewhat slowed mentation and confusion Interpretation Diagnostics Lab Results Interpretation Results Laboratory Tests 04/06/211919: [Embedded Image Not Available] Laboratory Tests: 04/07 04/06 04/06 04/06 0000 2312 2148 1919 Chemistry Sodium (134 - 147 mmol/L) 134 Potassium (3.4 - 5.0 mmol/L) 3.9 Chloride (100 - 108 mmol/L) 99 L Carbon Dioxide (21 - 32 mmol/L) 21 Anion Gap (4.0 - 15.0 GAP calc) 14.0 BUN (7 - 18 MG/DL) 49 H Creatinine (0.8 - 1.3 MG/DL) 9.2 H Glomerular Filtr Rate (>60 estGFR) 7 L Glucose (70 - 110 MG/DL) 94 Lactic Acid (0.4 - 2.0 mmol/L) 1.4 Calcium (8.5 - 10.1 MG/DL) 10.4 H Troponin I (0.000 - 0.045 NG/ML) 0.025 0.027 Hematology WBC (3.5 - 11.0 K/mm3) 10.6 RBC (4.70 - 6.10 M/mm3) 5.89 Hgb (12.3 - 15.9 G/DL) 14.7 Hct (35.8 - 46.7 %) 50.8 H MCV (86.3 - 98.9 Fl) 86.2 L MCH (28.9 - 34.4 pg) 25.0 L MCHC (32.1 - 34.5 G/DL) 28.9 L RDW (11.5 - 14.5 SD) 19.7 H Plt Count (150 - 450 K/mm3) 195 MPV (7.0 - 9.6 fL) 10.80 H Neut % (Auto) (40 - 76 %) 76.3 H Lymph % (Auto) (20.5 - 51.1 %) 9.6 L Haralson % (Auto) (1.7 - 9.3 %) 11.1 H Eos % (Auto) (0.0 - 6.0 %) 1.2 Baso % (Auto) (0.0 - 2.0 %) 0.7 Neut # (Auto) (1.8 - 7.6 K/mm3) 8.1 H Lymph # (Auto) (0.6 - 3.0 K/mm3) 1.0 Haralson # (Auto) (0.2 - 1.5 K/mm3) 1.2 Eos # (Auto) (0.0 - 0.4 K/mm3) 0.1 Baso # (Auto) (0.0 - 0.2 K/mm3) 0.1 Abs Immat Gran (auto) (0.00 - 0.03 x10 3/uL) 0.12 H Add Manual Diff (CRITERIA DIFF/SCN) NO Immature Gran % (0.0 - 5.0 %) 1.1 Nucleated RBC % (0.0 - 1.0 /100WBC%) 0.2 Platelet Estimate (ADEQUATE THOUSAND) ADEQUATE Plt Morphology Comment NORMAL Hypochromasia (NONE ON SCAN) 1+ Serology SARS CoV-2 RNA Rapid MANNY (Negative) Positive Microbiology: Date/Time Procedure - Status Source Growth 04/07 0000 MRSA Screen - RECD NASAL 04/06 1920 Blood Culture - ORD BLOOD 04/06 1920 Blood Culture - ORD BLOOD Recent Impressions: RADIOLOGY - XR CHEST 1 V 04/06 1925 Report Impression - Status: SIGNED Entered: 04/06/20212013 Impression: 1. Bilateral pulmonary infiltrates consistent with bilateral pneumonia. Impression By: [email or web address] Stanley Vasquez M.D. RADIOLOGY - XR CHEST 1 V 04/06 2235 Report Impression - Status: SIGNED Entered: 04/06/20218 IMPRESSION: New left IJ line in place. No pneumothorax. Bilateral infiltrates without significant change. Impression By: [email or web address] Stanley Cassidy M.D. ECG #1 Interpretation Text/Dict Note EKG reviewed and interpreted by myself. Time 1933. Heart rate 129, A. fib with RVR, nonspecific ST-T changes, no STEMI. Procedures Central Line Placement #1 Procedure Performed by ED physician Consent/Setup/Site Prep Verified correct patient, Informed consent provided, Consent from patient, Time-out performed, Needle aspirate performed, Oxygen administered, Pulse oximeter applied, environmental monitoring specialist applied, Hand hygiene observed, Standard surgical scrub, Max barrier precaution, Sterile drapes applied, Position Trendelenburg Skin Preparation Agent Hibiclens - Chlorhexidine Local Anesthesia Lidocaine 1% Side/Location/Ultrasound Internal jugular L, Ultrasound assisted Catheter/Lumen/Technique Triple lumen, Seldinger technique, Guide wire removed, Good blood return, Secured w catheter device Number of Attempts 1 Post-Procedure/Complications Dressing placed, CXR neg for pneumothorax, Cath tip good position, Tolerated procedure well, Patient stable Re-Evaluation MDM Free Text MDM Notes Free Text MDM Notes Differential diagnosis pneumonia, CHF exacerbation, volume overload, sepsis, among others. Labs and imaging reviewed and discussed with patient. Antibiotics and blood cultures. Patient with soft blood pressure at times. Heart rate in the 110s. Will admit for further management and monitoring. Patient stable prior to admission. Re-Evaluation/Progress #1 Time of Re-Eval 0007 Re-Eval Status stable ED Course Medication(s) Ordered Medication(s) Ordered: Anti-Infective Agents Sig/Sue Start time Last Medication Dose Route Stop Time Status Admin Azithromycin 500 MG X1ED STA 04/06 1920 DC 04/06 Sodium Chloride 250 ML IV 04/06 Ceftriaxone Sodium 1,000 MG X1ED STA 04/06 1920 AC 04/06 Sodium Chloride 100 ML IV 04/10 2319 194 Antihistamine Drugs Sig/Sue Start time Last Medication Dose Route Stop Time Status Admin Promethazine HCl 25 MG X1ED STA 04/06 2132 DC 04/06 IM 04/06 Electrolytic, Caloric, And Mallika Sig/Sue Start time Last Medication Dose Route Stop Time Status Admin Sodium Chloride 1,000 ML X1ED STA 04/06 1920 DC 04/06 IV 04/06 2020 194 Eye, Ear, Nose And Throat (Een Sig/Sue Start time Last Medication Dose Route Stop Time Status Admin Dexamethasone Sodium 8 MG X1ED STA 04/06 2257 CAN Phosphate IV 04/06 2258 Dexamethasone Sodium 8 MG X1ED STA 04/06 1946 DC 04/06 Phosphate IV 04/06 Gastrointestinal Drugs Sig/Sue Start time Last Medication Dose Route Stop Time Status Admin Ondansetron HCl 4 MG X1ED STA 04/06 2049 DC 04/06 IV 04/06 Ondansetron HCl 4 MG X1ED STA 04/06 2019 DC 04/06 IV 04/06 Patient Discharge Departure Vital Signs/Condition Vital Signs First Documented: Result Date Time O2 Delivery Nasal cannula 04/06 1913 O2 Flow Rate 4 04/06 1913 Pulse Ox 96 04/06 1924 B/P 135/82 04/06 1924 B/P Mean 99 04/06 1924 Temp 37.1 04/06 1924 Pulse 128 04/06 192 Resp 20 04/06 1924 Last Documented: Result Date Time Pulse Ox 93 04/07 0000 B/P 137/67 04/07 0000 B/P Mean 90 04/07 0000 O2 Delivery Non rebreather mask 04/07 0000 Pulse 128 04/07 0000 Resp 18 04/07 0000 O2 Flow Rate 15 04/06 2200 Temp 37.1 04/06 1924 All vital signs available at the time of this entry have been reviewed. Condition Stable Clinical Impression Clinical Impression Primary Impression: Pneumonia due to COVID-19 virus Secondary Impressions: ESRD on dialysis, Hypoxia Disposition Decision Admit Admit Physician Name Mandy Devlin MD Admit Physician Hospitalist Request Time 0008 Request Date 04/07/21 )( Admission Accepts Yes )( Accepted Time 000 )( Accepted Date 04/07/21 Discharge/Care Plan Counseled Regarding Diagnosis, Lab results, Imaging studies, Need for admission Admit Note I have spoken with the patient and/or caregivers. I have explained the patient's condition, diagnoses and treatment plan based on the information available to me at this time. I have answered the patient's and/or caregiver's questions and addressed any concerns. The patient and/or caregivers have as good an understanding of the patient's diagnosis, condition and treatment plan as can be expected at this point. The patient has been stabilized within the capability of the emergency department. The patient will be transported for further care and management or will be moved to an observation or inpatient service. I have communicated with the staff or medical practitioner taking over this patient's care. at 0350 Addendum 1: 04/07/21 2346 by Erlin George MD Patient Addendum Addendum at 2346 RPT #: [id number] END OF REPORT [facility] 2021-04-06 18:56:00 [facility] ([facility]) EMERGENCY PROVIDER REPORT REPORT#:[id number] REPORT STATUS: Signed DATE:04/06/21 TIME:1855 PATIENT: IRA RAYA UNIT #: [id number] ROOM/BED: [place] [address] : 54 AGE: 65 SEX: M PCP PHYS: No Primary or Family Physician SERVICE AUTHOR: Daryl Benoit NP * ALL edits or amendments must be made on the electronic/computer document * Daryl Benoit 04/06/211855: Provider in Triage - Adult Provider in Triage Initial Greet Date/Time 04/06/21 185 MSE Not Complete The medical screening exam is not complete. Further evaluation and/or treatment is required. The patient will be re-directed to the emergency department. Free Text PIT Notes Free Text PIT Notes AFIB, LOW OXYGEN PMH-Provider in Triage Stated Complaint HYPOTENSION/LOW O2 SAT/ AFIB WITH RVR Skip Gresham 04/06/21 1920: PMH-Provider in Triage Allergies Coded Allergies: No Allergy Information Available (04/06/21) at 1857 at 1920 at 2347 RPT #: [id number] END OF REPORT [facility] 2017-10-27 09:52:[address] [address] Patient Name: IRA RAYA Patient#: [id number] Admission Date: 10/27/2017 Date of : 03/11/1956 Age/Gender: 61/M HSSV/RM/BED: DSE/ Admitting Phys: Zak Benoit DPM OPERATIVE NOTE DATE OF SURGERY: 10/27/2017 SURGEON: Zak Benoit DPM HORTICULTURE TEACHER: Kacie Mendez LVN PREOPERATIVE DIAGNOSIS Right foot soft tissue mass. POSTOPERATIVE DIAGNOSIS Right foot soft tissue mass. PROCEDURE Right foot excision of soft tissue mass. ANESTHESIA General. ESTIMATED BLOOD LOSS Minimal. DRAINS None. COMPLICATIONS None. SPECIMEN REMOVED Right foot soft tissue mass. OPERATIVE PROCEDURE IN DETAIL After all risks and benefits were explained to patient and consent was signed, the right foot was marked as the operative site. The patient was seen by Anesthesia where a plan for general anesthesia was made. The patient then transported under light sedation from the preop assessment unit to the operating suite, placed in supine position with a right calf tourniquet placed. General anesthesia was then induced. The right foot and ankle were then prepped and draped in the usual sterile manner. After adequate anesthesia was ensured, attention was directed to the patient's right lower extremity. It was elevated and exsanguinated with Esmarch bandage, and the right calf tourniquet was inflated to 250 mmHg. Attention was then directed to patient's right medial foot where a linear incision was made with a 15-blade scalpel through the skin and subcutaneous tissues. Once in subcutaneous tissues, a large, well-circumscribed soft tissue mass was located and dissected away from soft tissue structures surrounding it. It was placed on the back table for specimen. Borders were well appreciated. The right foot was then copiously lavaged with normal saline solution. Deep and subcutaneous closure took place with 3-0 Monocryl, and 4-0 nylons were Legally authenticated by JOSIE Chisholm 2017-10-30 09:37:00 utilized to coapt the skin. The right foot was blocked with 10 mL of 0.5% Marcaine plain. Incision dressed with Xeroform, 4 x 4's, Kerlix, and Herson wrap. Tourniquet was deflated. Immediate hyperemia returned to all digits of right lower extremity. Anesthesia was discontinued. Patient was transferred from operating suite to postoperative recovery unit with vital signs stable and vascular status intact to preoperative levels to right lower extremity. Patient tolerated procedure and anesthesia well and was to be discharged home with instructions to limit weightbearing to right lower extremity and keep the right lower extremity elevated. Patient was advised to keep dressing clean, dry, and intact until followup in 1 week. Zak Benoit DPM TT: 10/27/2017 09:52:56 DAYANNA/TRENT /[id number] Electronically Authenticated by: Hi [email or web address] On 10/30/2017 09:37 AM CDT Legally authenticated by JOSIE Chisholm 2017-10-30 09:37:00 [facility]
[2024-05-17] MEDS ORDERED: NA CHLORIDE 0.9% 250 ML ONE (12:23)
[2024-05-17 13:10] LABS: Absolute Basophils 0.1 K/uL (0-0.5); Absolute Lymphocytes (CBC) 0.8 K/uL (0.7-4.9); Absolute Monocytes 0.8 K/uL (0.1-1.3); Absolute Neutrophil 5.5 K/uL (1.8-8.0); Basophils % 0.7 % (0-1.3); Eosinophils % 0.5 % (0-4.4); Hematocrit 46.4 % (39.6-49.0); Hemoglobin 14.6 g/dL (13.6-17.9); Lymphocytes % 11.4 % (15.3-44.8); MCH 26.6 pg (27.0-35.0); MCHC 31.5 g/dL (32.0-36.0); MCV 84.6 fL (80-100); MPV 9.5 fL (7.6-11.3); Monocytes % 11.3 % (3.3-12.3); Neutrophils % 76.1 % (41.7-73.7); Nucleated Red Blood Cells % 0.1 % (0-0); Platelets 156 thou/uL (152-406); RBC Red Blood Cell Count 5.48 M/uL (4.33-5.43); Red Cell Distribution Width 20.8 % (12.1-15.2)
[2024-05-17 13:24] LABS: Anisocytosis 2+; Blood Morphology Comment NOTED (NOT SEEN); Macrocytosis 2+; Platelet Estimate ADEQ; White Blood Cell Scan OK (OK)
[2024-05-17 13:28] LABS: Anion Gap 11.9 mEq/L (5.0-15.0); Potassium 3.9 mEq/L (3.5-5.1)
--- NOTE | 2024-05-17 14:13 | RAD REPORT ---
EXAMINATION: ONE VIEW CHEST XR CLINICAL INDICATION: Male, 68 years old.,ESRD TECHNIQUE: Frontal chest projection is submitted. Examination is limited by patient positioning and t echnique. COMPARISON: 11/04/2023 FINDINGS: The lungs are somewhat suboptimally inflated but clear. No pneumothorax or sizable effusion. The hea rt is normal in size. Mediastinal contours are unremarkable. IMPRESSION: No acute intrathoracic abnormalities.
--- NOTE | 2024-05-17 14:21 | EDPHYS ---
Physician Documentation [facility] Name: Adriel Raya Age: 68 yrs Sex: Male : 1955 Arrival Date: 05/17/2024 Time: 11:56 Bed 4 Private MD: ED Physician Steve Anand HPI: 05/17 13:17 This 68 yrs old Black Male presents to ER via EMS with complaints of Blood Pressure rn Problem. 13:17 Patient completed dialysis yesterday, was feeling fine, did physical therapy today and rn slid out of his recliner. No trauma or injury. Has been having intermittent low blood pressure and put on midodrine recently. Blood pressure was low and patient was confused and altered. Given 250 cc bolus by EMS and as blood pressure improved patient's confusion resolved. Now back to baseline per family member. Patient denies focal pain. No fever or chills. No recent illness.. Onset: The symptoms/episode began/occurred just prior to arrival. Severity of symptoms: At their worst the symptoms were moderate in the emergency department the symptoms have resolved. The patient has experienced similar episodes in the past. The patient has not recently seen a physician. Historical: - Allergies: 12:14 Augmentin; iw 12:14 Norvasc; iw - PMHx: 12:14 Hypertension; Diverticulitis; Dialysis; iw - PSHx: 12:14 Appendectomy; Left arm dialysis fistula; iw - Immunization history:: Adult Immunizations up to date. - Infectious Disease History:: Denies. - Family history:: not pertinent. - Social history:: Smoking status: Patient denies any tobacco usage or history of. - Hospitalizations: : No recent hospitalization is reported. ROS: 13:17 Constitutional: Negative for fever, chills, and weight loss, ENT: Negative for injury, rn pain, and discharge, Neck: Negative for injury, pain, and swelling, Cardiovascular: Negative for chest pain, palpitations, and edema, Respiratory: Negative for shortness of breath, cough, wheezing, and pleuritic chest pain, Abdomen/GI: Negative for abdominal pain, nausea, vomiting, diarrhea, and constipation, MS/Extremity: Negative for injury and deformity, Skin: Negative for injury, rash, and discoloration, Neuro: Positive for generalized weakness Exam: 13:17 Constitutional: This is a well developed, well nourished patient who is awake, alert, rn and in no acute distress. Head/Face: Normocephalic, atraumatic. ENT: Dry mucous membranes Cardiovascular: Regular rate, irregular rhythm. No pulse deficits. Respiratory: No increased work of breathing, no retractions or nasal flaring. Abdomen/GI: Soft, nontender MS/ Extremity: Pulses equal, no cyanosis. Neurovascular intact. Full, normal range of motion. Equal circumference. Neuro: Awake and alert, GCS 15 13:22 ECG was reviewed by the Attending Physician. rn Vital Signs: 12:13 BP 104 / 57; Pulse 68; Resp 18; Temp 97.9; Pulse Ox 100% on R/A; iw 13:00 BP 116 / 75; Pulse 74; Resp 16; Pulse Ox 98% on R/A; iw 14:15 BP 128 / 77; Pulse 71; Resp 18; Pulse Ox 97% on R/A; iw MDM: 12:02 Medical Screening Exam initiated rn 14:19 Differential Diagnosis Transient hypotension, end-stage renal disease, dehydration. rn Data reviewed: vital signs, nurses notes, lab test result(s), EKG, radiologic studies, plain films, and as a result, I will discharge patient. Counseling: I had a detailed discussion with the patient and/or guardian regarding the historical points, exam findings, and any diagnostic results supporting the discharge/admit diagnosis, lab results, radiology results, the need for outpatient follow up, to return to the emergency department if symptoms worsen or persist or if there are any questions or concerns that arise at home. Response to treatment: the patient's symptoms have markedly improved after treatment, the patient's condition has returned to base line, the patient is now symptom free, and as a result, I will discharge patient. Special discussion: I discussed with the patient/guardian in detail that at this point there is no indication for admission to the hospital. It is understood, however, that if the symptoms persist or worsen the patient needs to return immediately for re-evaluation. 14:19 ED course: Patient back to baseline, now normotensive. Asymptomatic. Has happened rn multiple times and already on midodrine. Likely altered mental status secondary to transient hypotension has resolved with resolution of hypotension. I have personally reviewed all of the results, including but not limited to blood tests and imaging deemed necessary to safely discharge this patient at this time. All results given to and printed out for patient. I personally went over all the results with the patient and answered all questions. Patient will follow-up with PCP and or specialist as discussed. Return precautions given and understood.. 05/17 12:10 Order name: CBC with Diff; Complete Time: 13:36 iw 05/17 12:10 Order name: Basic Metabolic Panel; Complete Time: 13:36 iw 05/17 13:14 Order name: CBC Smear Scan; Complete Time: 13:36 EDMS 05/17 12:14 Order name: XRAY Chest (1 view); Complete Time: 14:19 rn 05/17 12:14 Order name: EKG; Complete Time: 12:15 rn 05/17 12:14 Order name: IV Start; Complete Time: 12:16 rn 05/17 12:14 Order name: Cardiac monitoring; Complete Time: 12:16 rn 05/17 12:14 Order name: O2 Per Protocol; Complete Time: 12:16 rn 05/17 12:14 Order name: EKG - Nurse/Tech; Complete Time: 12:16 rn 05/17 12:34 Order name: Labs - recollect needed: lavender and green; Complete Time: 13:01 bc6 EC:22 Rate is 73 beats/min. Rhythm is irregularly irregular. Left axis deviation noted. QRS rn is positive in lead I and negative in lead aVF. QRS interval is normal. QT interval is normal. No Q waves. T waves are Normal. No ST changes noted. Clinical impression: Atrial Fibrillation. Interpreted by me. Reviewed by me. Administered Medications: 12:16 Not Given (already given by EMS): ns 0.9% 250 ml IV at bolus once; to be given as a rn bolus over 30 minutes Disposition Summary: 05/17/24 14:21 Discharge Ordered Notes: Location: Home rn Problem: an ongoing problem rn Symptoms: have improved rn Condition: Stable rn Diagnosis - Hypotension, unspecified rn - End stage renal disease rn Followup: rn - With: Private Physician - When: As needed - Reason: Recheck today's complaints, Re-evaluation by your physician Discharge Instructions: - Discharge Summary Sheet rn - Hypotension rn - operating room rn Forms: - Medication Reconciliation Form rn - Antibiotic chemist intern - Prescription Opioid Use rn - Patient Portal Instructions rn - Leadership Thank You Letter rn Signatures: Dispatcher [employer] Eden Cruz, Steve Mittal RN, MD MD rn Wilkerson, Lilly Graham, RN RN [id number] Obdulia Alvarez6 Corrections: (The following items were deleted from the chart) 13:22 13:17 Constitutional: This is a well developed, well nourished patient who is awake, rn alert, and in no acute distress. Head/Face: Normocephalic, atraumatic. ENT: Dry mucous membranes Cardiovascular: Regular rate and rhythm. No pulse deficits. Respiratory: No increased work of breathing, no retractions or nasal flaring. Abdomen/GI: Soft, nontender MS/ Extremity: Pulses equal, no cyanosis. Neurovascular intact. Full, normal range of motion. Equal circumference. Neuro: Awake and alert, GCS 15 rn
--- NOTE | 2024-05-17 14:21 | ER ---
[facility]: Adriel Raya Age: 68 yrs Sex: Male : 1955 Arrival Date: 05/17/2024 Time: 11:56 Bed 4 Private MD: Diagnosis: Hypotension, unspecified;End stage renal disease Presentation: 05/17 12:11 Chief complaint: EMS states: pt slipped out of the recliner and could not get himself iw up off the ground, EMS was called and got a low BP of 88/43, he was altered on scene, but now is A \T\O X 3, pt is nonambulatory. 12:11 Method Of Arrival: EMS: [facility] iw 12:11 Acuity: SAM 2 iw 12:13 Coronavirus screen: Client presents with at least one sign or symptom that may indicate iw coronavirus-19. Ebola Screen: No symptoms or risks identified at this time. Initial Sepsis Screen: Does the patient meet any 2 criteria? No. Patient's initial sepsis screen is negative. Does the patient have a suspected source of infection? No. Patient's initial sepsis screen is negative. Risk Assessment: Do you want to hurt yourself or someone else? Patient reports no desire to harm self or others. Onset of symptoms was May 17, 2024. 12:15 Care prior to arrival: Medication(s) given: Normal saline infusion, 250 mL IV iw initiated. 22 GA, in the right hand, Glucose check: 160. Historical: - Allergies: 12:14 Augmentin; iw 12:14 Norvasc; iw - PMHx: 12:14 Hypertension; Diverticulitis; Dialysis; iw - PSHx: 12:14 Appendectomy; Left arm dialysis fistula; iw - Immunization history:: Adult Immunizations up to date. - Infectious Disease History:: Denies. - Family history:: not pertinent. - Social history:: Smoking status: Patient denies any tobacco usage or history of. - Hospitalizations: : No recent hospitalization is reported. Screenin:17 [facility] ED Fall Risk Assessment (Adult) History of falling in the last 3 months, mb9 including since admission Yes- fall prone (multiple falls) (3 pts) Confusion or Disorientation No (0 pts) Intoxicated or Sedated No (0 pts) Impaired Gait Yes (1 pt) Mobility Assist Device Used Yes (1 pt) Altered Elimination No (0 pt) Score/Fall Risk Level 3 or more points = High Risk Oriented to surroundings, Maintained a safe environment, Educated pt \T\ family on fall prevention, incl call for assistance when getting out of bed, Assessed \T\ reinforced patient's understanding of fall precautions. Abuse screen: Denies threats or abuse. Nutritional screening: No deficits noted. Tuberculosis screening: No symptoms or risk factors identified. Assessment: 13:00 Reassessment: Patient appears in no apparent distress at this time. Patient and/or iw family updated on plan of care and expected duration. Pain level reassessed. Patient is alert, oriented x 3, equal unlabored respirations, skin warm/dry/pink. 14:52 Reassessment: pt cleaned of incontinence, family called for EMS transport back home, iw will be to hospital in about one hour. Vital Signs: 12:13 BP 104 / 57; Pulse 68; Resp 18; Temp 97.9; Pulse Ox 100% on R/A; iw 13:00 BP 116 / 75; Pulse 74; Resp 16; Pulse Ox 98% on R/A; iw 14:15 BP 128 / 77; Pulse 71; Resp 18; Pulse Ox 97% on R/A; iw ED Course: 12:02 Patient arrived in ED. mb9 12:02 Steve Anand MD is Attending Physician. rn 12:04 Arm band placed on. mb9 12:12 Triage completed. iw 12:16 Basic Metabolic Panel Sent. mb9 12:16 CBC with Diff Sent. mb9 12:16 EKG done, by ED staff, reviewed by Steve Anand MD. Maintain EMS IV. Dressing intact. mb9 Good blood return noted. Site clean \T\ dry. Gauge \T\ site: 22g right hand. 12:17 Provided Education on: press call light if needing anything. mb9 12:17 Bed in low position. Call light in reach. Side rails up X 1. Client placed on mb9 continuous cardiac and pulse oximetry monitoring. NIBP monitoring applied. cafeteria monitor on. 12:34 Eden Villavicencio, RN is Primary Nurse. iw 12:56 XRAY Chest (1 view) In Process Unspecified. EDMS 15:00 No provider procedures requiring assistance completed. iw Administered Medications: 12:16 Not Given (already given by EMS): ns 0.9% 250 ml IV at bolus once; to be given as a rn bolus over 30 minutes Medication: 12:17 VIS not applicable for this client. mb9 Outcome: 14:21 Discharge ordered by . rn 16:10 Patient left the ED. iw Signatures: Dispatcher [employer] EDEden Goldsmith RN RN iw Nieto, Roman, MD MD rn Wilkerson, Mary Beth, RN RN mb9
[2024-05-17 16:14] VITALS: TEMP 97.9
[2024-05-17 16:17] VITALS: BP 128/77; O2SAT 97
--- NOTE | 2024-05-21 12:09 | EKG ---
Test Date: 2024-05-17 Test Time: 12:04:07 Soil Analyst: CARLOS MEASUREMENT RESULTS: Intervals: Rate: 73 DC: QRSD: 120 QT: 424 QTc: 467 [place]: P: DC: QRS: -37 T: 46 INTERPRETIVE STATEMENTS: Atrial fibrillation Left axis deviation Septal infarct, age undetermined Abnormal ECG Compared to ECG 11/14/2023 14:51:30 Left-axis deviation now present Myocardial infarct finding still present Electronically Signed On 05-21-24 12:07:03 MEDICAL SCIENTIST by Ron Carballo
== END 2024-05-17 16:10 | disposition home or self-care (01) ==
LOC: ER 11:56
DX: I95.9 Hypotension, unspecified (principal); I12.0 Hypertensive chronic kidney disease with stage 5 chronic kidney disease or end stage renal disease; N18.6 End stage renal disease; Z99.2 Dependence on renal dialysis
CPT/HCPCS: 93005; 85025; 80048; 36415; 71045; 99284; J7050

== ENCOUNTER 2024-07-19 11:17 | Inpatient (IN) | payer OTHER, MEDICARE ==
--- OUTSIDE RECORDS SUMMARY | 2024-07-19 11:34 | XMS REPORT | Continuity of Care Document ---
Author Name Unknown Address [address] [facility] [address]. [address] [place] [address] [facility] thconnect Address [address] [facility] [place] [address] Care Team Providers Care Chief Solution Architect Name Role Phone [phone] Primary Care Physician Unavailab LEIDA Abreu NATASHA Attending Clinician DIEGO Ferraro Attending Clinician Unavailable FARHAN KUMAR Attending Clinician Unavailable MARGARITA CRUZ Attending Clinician Unavailable COLEEN HAYS Attending Clinician Unavailable GALI FERNANDEZ Attending Clinician UnavailJose Phillips Attending Clinician Unavailable JENARO BAH Attending Clinician Unavaila ble [id number] Attending Clinician Unavailable LEANN REGALADO Attending Clinician UnaIra Yuan MD Attending Clinician [phone] Regina Winkler MD Attending Clinician [phone] REGINA WINKLER Attending Clinician Unavailable IRA RAMIREZ Attending Clinician JUANCARLOS Russell Attending Clinician Unavaila Ira George MD Attending Clinician [phone] Elian Joseph Attending Clinician Unavailable MAYR ALICE GALARZA Attending Clinician Unavailable Peterson CHICAS, Regina Attending Clinician [phone] Drake Ley MD Attending Clinician [phone] Amita Gr Attending Clinician UnaDaniel Malhotra MD Attending Clinician [phone] Doctor Unassigned, [place] Attending Clinician U DANIEL Ny Attending Clinician Unavailable CHRISTIANA POSADA Attending Clinician Unavailable Eduardo Morrison MD Attending Clinician [phone] SLAVA PRICE Attending Clinician Unavailable Mirian Carter RN Attending Clinician Unavaila EDUARDO Mcqueen Attending Clinician Unavailable Provider, Undefined Attending Clinician UnavailLeida Jacobsen Attending Clinician Unavailable Breanna Caballero RN Attending Clinician Unavailable RIGO SMITH Attending Clinician Unavailable Ashley CHICAS, Susan Swift Attending Clinician [phone] Chong Garcia MD Attending Clinician [phone] Rigo Smith MD Attending Clinician [phone] MARAH ALSTON Attending Clinician UnavailHector Rose Attending Clinician Unavailable Saqib Hall Attending Clinician Unavailable JIL GRUBBS Attending Clinician Unavailable ALEXANDRE VITALE Attending Clinician Unavailable MARJORIE JAIMES Attending Clinician Unava FCO Lee Attending Clinician Unavailable JUAN M CAMPOS Attending Clinician Unavailable ENRIQUE TORRES Attending Clinician UnavailSINCERE Adamson Attending Clinician UnavailSincere Adamson MD Attending Clinician [phone] YOVANNY IZAGUIRRE Attending Clinician UnavailMary Alice Street Attending Clinician [phone] Akash Martinez MD Attending Clinician [phone] LAINEY CUELLO Attending Clinician Unavailable ARI WASHINGTON Attending Clinician Unavailable Ebrahim SUPERVISOR MOTOR VEHICLE ASSEMBLY, Ari Attending Clinician + [phone] Unknown, Attending Attending Clinician Unavailab le Vaccine, Ang Db Cbc Fam Attending Clinician Unav JEANNE Pfeiffer Attending Clinician Unavailable Only, Ang Db Test Attending Clinician Unavailjuno Loza MD, Netta Attending Clinician [phone] NETTA LOZA Attending Clinician Unavailable Parminder Kee RN Attending Clinician Unavail able RYLEE TRISTAN Attending Clinician Unavailable Linh Villavicencio DO Attending Clinician [phone] Rylee Tristan DO Attending Clinician [phone] Mandy Devlin Attending Clinician Unavailable Rome Tyler Attending Clinician Unavailable Jyoti Andrew Attending Clinician Unavail able DENYS LUZ Attending Clinician Unavail able Nurse, Adc Pob Immunization Attending Clinician Unavailable Denys Luz DO Attending Clinician [phone] DUANE AYOUB Attending Clinician Unavailable Leann Regalado MD Attending Clinician [phone] Only, Adc Test Attending Clinician Unavailable Pob, Adc Lab Main Attending Clinician UnavailTYRESE Gracia Attending Clinician Unavailable Liberty Lechuga MD Attending Clinician [phone] LIBERTY LECHUGA Attending Clinician UnavailLEIDA [place] NATASHA Admitting Clinician Unava ilable DIEGO HO Admitting Clinician Unavailable JIL GRUBBS Admitting Clinician Unavailable GALI FERNANDEZ Admitting Clinician Unavailabl Jose Elizabeth Admitting Clinician Unavailable JENARO BAH Admitting Clinician Unavaila ble [id number] Admitting Clinician Unavailable LEANN REGALADO Admitting Clinician Unava ilable Hector Fuentes Admitting Clinician Unavailable DANIEL RANDOLPH Admitting Clinician Unavailable Ira Ramirez Admitting Clinician Unavailable Leida Cuellar Admitting Clinician Unavailable CHONG GARCIA Admitting Clinician Unavailable Chong Garcia MD Admitting Clinician [phone] Saqib Hall Admitting Clinician Unavailable RYLEE TRISTAN Admitting Clinician Unavailable Rylee Tristan DO Admitting Clinician [phone] Mandy Devlin Admitting Clinician Unavailable Keisha Bensno Admitting Clinician Unavailable Physician, No Primary or Family Admitting Clinic reji Unavailable Leann Regalado MD Admitting Clinician [phone] Payers Payer Name Policy Type Policy Number Effective Date Expirati on Date Source [facility] [id number] AARP AARP [id number] MEDICARE A B [id number] 2007 00:00:00 AARP/[facility] [id number] 2022 00:00:00 MEDICARE PART A \\T\\ B [id number] 2007 00:00:00 [facility] MEDICARE SUPPLEMENT [id number] 2019 00:00:00 MEDICARE PART A AND B [id number] 2020 00:00:00 [facility] PPO [id number] 2016 00:00:00 Problems Condition Name Condition Details Condition Category Status Onset Date Resolution Date Last Treatment Date Treating Clinician Comments Source Perinephri c hematoma Perinephri c hematoma Disease Active 9 00:00: 00 [facility] Secondary hyperparat hyroidism Secondary hyperparat hyroidism Disease Active 2- 00:00: 00 [facility] Renal osteodystr ophy Renal osteodystr ophy Disease Active 2- 00:00: 00 [facility] Pressure ulcer of sacral region Pressure ulcer of sacral region Disease Active 2- 00:00: 00 [facility] Intractabl e vomiting Intractabl e vomiting Disease Active 2- 00:00: 00 [facility] Hyperlipid emia Hyperlipid emia Disease Active 2- 00:00: 00 [facility] Hemodialys is-associa sydney hypotensio n Hemodialys is-associa sydney hypotensio n Disease Active 2- 00:00: 00 [facility] Gout Gout Disease Active 2-03 00:00: 00 [facility] CKD (chronic kidney disease), symptom management only, stage 5 CKD (chronic kidney disease), symptom management only, stage 5 Disease Active 2-03 00:00: 00 [facility] Chronic atrial fibrillati on Chronic atrial fibrillati on Disease Active 2-03 00:00: 00 [facility] 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 Disease Active 2-03 00:00: 00 [facility] Anemia in chronic kidney disease Anemia in chronic kidney disease Disease Active 2-03 00:00: 00 [facility] Adrenal insufficie ncy Adrenal insufficie ncy Disease Active 2-03 00:00: 00 [facility] Hypoglycem ia Hypoglycem ia Disease Active 6-16 00:00: 00 [facility] Pure hyperchole sterolemia Pure hyperchole sterolemia Disease Active 1-14 00:00: 00 [facility] 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 Disease Active 1-14 00:00: 00 [facility] Functional paraparesi s Functional paraparesi s Disease Active 1-14 00:00: 00 [facility] Chronic diastolic heart failure Chronic diastolic heart failure Disease Active 1-14 00:00: 00 [facility] Poor balance Poor balance Disease Active 3- 00:00: 00 [facility] Pain in left shoulder Pain in left shoulder Disease Active 3- 00:00: 00 [facility] Other specified personal risk factors, not elsewhere classified Other specified personal risk factors, not elsewhere classified Disease Active 3- 00:00: 00 [facility] Chronic low back pain Chronic low back pain Disease Active 3- 00:00: 00 [facility] Body mass index (BMI) 45.0-49.9, adult Body mass index (BMI) 45.0-49.9, adult Disease Active 09-08 00:00: 00 [facility] Pain in left shoulder Pain in left shoulder Disease Active 09-08 00:00: 00 [facility] Other specified personal risk factors, not elsewhere classified Other specified personal risk factors, not elsewhere classified Disease Active 09-08 00:00: 00 [facility] 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 Disease Active 2015-07 00:00: 00 [facility] Essential hypertensi on Essential hypertensi on Disease Active 2014-07 00:00: 00 [facility] End stage renal failure on dialysis End stage renal failure on dialysis Disease Active 2014-07 00:00: 00 [facility] Gastro-eso phageal reflux disease without esophagiti s Gastro-eso phageal reflux disease without esophagiti s Disease Active 2014-07 00:00: 00 [facility] Crohn's disease 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 Allergies, Adverse Reactions, Alerts Allergy Name Allergy Type Status Severity Reaction(s) Onset Date Inactive Date Treating Clinician Comments Source clavulan ic acid DA Active U DIARRHEA 02-21 00:00: 00 [facility] amlodipi ne DA Active U SWELLING 814 00:00: 00 [facility] amoxicil fannie DA Active U DIARRHEA 814 00:00: 00 [facility] clavulan ic acid DA Active AL ABD PAIN 8-12 00:00: 00 [facility] amlodipi ne DA Active AL RASH 2023-0 8-12 00:00: 00 [facility] amoxicil fannie DA Active AL ABD PAIN 2022-0 8-12 00:00: 00 [facility] AMOXICIL FANNIE-POT CLAVULAN ATE Allergy Active 0 8-04 00:00: 00 [facility] AMLODIPI NE Allergy Active 2022-0 8-04 00:00: 00 [facility] AMLODIPI NE Allergy Active High Swelling 0 4-30 00:00: 00 [facility] AMOXICIL FANNIE-POT CLAVULAN ATE Allergy Active Diarrhea 0 4-30 00:00: 00 [facility] No Known Allergie s DA Active U 0 5-08 00:00: 00 [facility] clavulan ic acid DA Active AL DIARRHEA 0 5-08 00:00: 00 [facility] amoxicil fannie DA Active AL DIARRHEA 0 5-08 00:00: 00 [facility] MORVASC DA Active SV SWELLING 0 5-08 00:00: 00 [facility] amoxicil fannie DA Active AL ABD PAIN 2021-0 3-28 00:00: 00 [facility] clavulan ic acid DA Active AL ABD PAIN 2021-0 3-28 00:00: 00 [facility] amlodipi ne DA Active AL RASH 2021-0 3-28 00:00: 00 [facility] No Allergy Informat ion Availabl e DA Active U 0 9-27 00:00: 00 [facility] Amlodipi ne Propensi ty to adverse reaction s Active Swelling 2014-07 00:00: 00 [facility] AMLODIPI NE DRUG INGREDI Active Swelling 2014-07 00:00: 00 [facility] Amoxicil fannie-Pot Clavulan ate Propensi ty to adverse reaction s Active Unknown - See comments 2014-07 00:00: 00 [facility] AMOXICIL FANNIE-POT CLAVULAN ATE DRUG Active Unknown-Cmnt 2014-07 00:00: 00 [facility] NO KNOWN ALLERGY Allergy to substanc e Active Unknown 12-13 00:00: [address] [facility] Social History Social Habit Start Date Stop Date Quantity Comments Source History of tobacco use Cigarette Smoker [facility] Gender identity [facility] Sexual orientation [facility] Cigarettes smoked current (pack per day) - Reported 2023-11-29 00:00:00 2023-11-29 00:00:00 [facility] Cigarette pack-years 2023-11-29 00:00:00 2023-11-29 00:00:00 [facility] Tobacco use and exposure 2023-11-29 00:00:00 2023-11-29 00:00:00 Smokeless tobacco non-user [facility] History of Social function 2023-11-29 00:00:00 2023-11-29 00:00:00 [facility] Alcoholic beverage intake 2023-11-29 00:00:00 2023-11-29 00:00:00 0 /d [facility] Alcohol intake 2023-06-20 00:00:00 2023-06-20 00:00:00 0 /d [facility] Exposure to SARS-CoV-2 (event) 2022-09-21 00:00:00 2022-10-01 14:29:00 Not sure [facility] Tobacco Comment 2022-06-25 00:00:00 2022-06-25 00:00:00 Quit 1 year ago [facility] Education 2021-12-24 00:00:00 2021-12-24 00:00:00 16 [facility] Sex Ass[birth year] At 1956-03-11 00:00:00 1956-03-11 00:00:00 Male [facility] Smoking Status Start Date Stop Date Source Ex-smoker 2023-11-29 00:00:00 2023-11-29 00:00:00 [facility] Never smoked tobacco (finding) [facility] [place] Medications Ordered Medication Name Filled Medication Name Start Date Stop Date Current Medication? Ordering Clinician Indication Dosage Frequency Signature (SIG) Comments Components Source metoprolol tartrate 25 mg tablet 07-18 00:00: 00 Yes [id number] 25mg TAKE 1 TABLET BY MOUTH IN THE MORNING AND IN THE EVENING [facility] gabapentin 300 mg capsule 07-16 00:00: 00 Yes [id number] 2 TAKE 1 CAPSULE BY MOUTH TWICE DAILY IN THE MORNING AND IN THE EVENING [facility] COLCHICINE 0.6 mg tablet 07-12 00:00: 00 Yes [id number] .6mg TAKE 1 TABLET BY MOUTH IN THE MORNING [facility] nystatin 100,000 unit/gram powder 2023-07 00:00: 00 Yes [id number] APPLY POWDER TOPICALLY TO AFFECTED AREA TWICE DAILY [facility] GABAPENTIN 300 mg capsule 2023-07 00:00: 00 07-16 00:00 :00 No [id number] 2 TAKE 1 CAPSULE BY MOUTH TWICE DAILY IN THE MORNING AND IN THE EVENING [facility] simvastatin 20 mg tablet 2023-07 00:00: 00 Yes [id number] 20mg TAKE 1 TABLET BY MOUTH AT BEDTIME [facility] GABAPENTIN 300 mg capsule 2023-07 00:00: 00 Yes [id number] 2 TAKE 1 CAPSULE BY MOUTH TWICE DAILY IN THE MORNING AND IN THE EVENING [facility] amiodarone 200 mg tablet 2023-07 00:00: 00 Yes [id number] 200mg Take 1 tablet by mouth in the morning and 1 tablet in the evening. [facility] colchicine 0.6 mg tablet 2023-07 00:00: 00 07-12 00:00 :00 No [id number] .6mg Take 1 tablet by mouth in the morning. [facility] omeprazole 40 mg capsule 2023-07 00:00: 00 Yes 40mg Take 1 capsule by mouth in the morning. [facility] metoprolol tartrate 25 mg tablet 2023-07 00:00: 00 07-18 00:00 :00 No [id number] 25mg Take 1 tablet by mouth in the morning and 1 tablet in the evening. [facility] loperamide 2 mg capsule 2023-07 00:00: 00 Yes [id number] TAKE DIRECTED AFTER EACH LOOSE STOOL, DO NOT TAKE MORE THAN 8 CAPSULES PER DAY [facility] SIMVASTATIN 20 mg tablet 2023-07 2 00:00: 00 06-25 00:00 :00 No [id number] 20mg TAKE 1 TABLET BY MOUTH AT BEDTIME [facility] NYSTATIN 100,000 unit/gram powder 2023-07 2- 00:00: 00 07-05 00:00 :00 No [id number] APPLY POWDER TOPICALLY TO AFFECTED AREA TWICE DAILY [facility] NYSTATIN 100,000 unit/gram powder 2023-07 00:00: 00 Yes [id number] APPLY POWDER TOPICALLY TWICE DAILY TO AREA(S) [facility] SIMVASTATIN 20 mg tablet 2023-07 00:00: 00 Yes [id number] 20mg TAKE 1 TABLET BY MOUTH AT BEDTIME [facility] GABAPENTIN 300 mg capsule 2023-07 00:00: 00 06-18 00:00 :00 No [id number] 2 TAKE 1 CAPSULE BY MOUTH TWICE DAILY IN THE MORNING AND IN THE EVENING [facility] HYDROCORTIS ONE 10 mg tablet 2023-07 00:00: 00 Yes [id number] 10mg TAKE 1 TABLET BY MOUTH IN THE MORNING AND IN THE EVENING [facility] NYSTATIN 100,000 unit/gram powder 2023-07 00:00: 00 05-28 00:00 :00 No [id number] APPLY POWDER TOPICALLY TWICE DAILY TO AREA(S) [facility] loperamide 2 mg capsule 2023-07 00:00: 00 Yes [id number] TAKE DIRECTED AFTER EACH LOOSE STOOL - DO NOT TAKE MORE THAN 8 CAPSULES PER DAY [facility] SIMVASTATIN 20 mg tablet 2023-07 00:00: 00 05-21 00:00 :00 No 20mg TAKE 1 TABLET BY MOUTH AT BEDTIME [facility] NYSTATIN 100,000 unit/gram powder 2023-07 0 00:00: 00 Yes [id number] APPLY POWDER TOPICALLY TWICE DAILY TO AREA(S) [facility] SIMVASTATIN 20 mg tablet 2023-07 0-14 00:00: 00 Yes 20mg TAKE 1 TABLET BY MOUTH AT BEDTIME [facility] LOPERAMIDE 2 mg capsule 2023-07 014 00:00: 00 Yes [id number] TAKE DIRECTED AFTER EACH LOOSE STOOL, DO NOT TAKE MORE THAN 8 CAPSULES PER DAY [facility] GABAPENTIN 300 mg capsule 2023-07 0-14 00:00: 00 05-21 00:00 :00 No TAKE 1 CAPSULE BY MOUTH TWICE DAILY IN THE MORNING AND IN THE EVENING [facility] NYSTATIN 100,000 unit/gram powder 2023-07 0- 00:00: 00 04-30 00:00 :00 No [id number] APPLY POWDER TOPICALLY TWICE DAILY TO AFFECTED AREA(S) [facility] METOPROLOL TARTRATE 25 mg tablet 04-02 00:00: 00 06-15 00:00 :00 No [id number] TAKE 1 TABLET BY MOUTH ONCE DAILY IN THE MORNING AND 1 TABLET BYMOUTH ONCE DAILY IN THE EVENING [facility] GABAPENTIN 300 mg capsule 03-28 00:00: 00 Yes TAKE 1 CAPSULE BY MOUTH TWICE DAILY IN THE MORNING AND IN THE EVENING [facility] SIMVASTATIN 20 mg tablet 18 00:00: 00 Yes 20mg TAKE 1 TABLET BY MOUTH AT BEDTIME [facility] HYDROCORTIS ONE 10 mg tablet 17 00:00: 00 05-15 00:00 :00 No [id number] 10mg TAKE 1 TABLET BY MOUTH IN THE MORNING AND IN THE EVENING [facility] METOPROLOL TARTRATE 25 mg tablet 03-21 00:00: 00 Yes [id number] 25mg TAKE 1 TABLET BY MOUTH IN THE MORNING AND 1 IN THE EVENING [facility] NYSTATIN 100,000 unit/gram powder 03-21 00:00: 00 04-11 18:56 :52 No [id number] APPLY POWDER TOPICALLY TWICE DAILY TO AREA(S) [facility] LOPERAMIDE 2 mg capsule 8-19 00:00: 00 Yes [id number] TAKE DIRECTED AFTER EACH LOOSE STOOL, DO NOT TAKE MORE THAN 8 CAPSULES PER DAY [facility] SIMVASTATIN 20 mg tablet 819 00:00: 00 Yes 20mg TAKE 1 TABLET BY MOUTH AT BEDTIME [facility] LOPERAMIDE 2 mg capsule 0 05 00:00: 00 Yes [id number] TAKE DIRECTED AFTER EACH LOOSE STOOL, DO NOT TAKE MORE THAN 8 CAPSULES PER DAY [facility] gabapentin 300 mg capsule 12-11 00:00: 00 Yes TAKE 1 CAPSULE BY MOUTH TWICE DAILY IN THE MORNING AND IN THE EVENING [facility] loperamide 2 mg capsule 0 12-05 00:00: 00 Yes [id number] TAKE DIRECTED AFTER EACH LOOSE STOOL, DO NOT TAKE MORE THAN 8 CAPSULES PER DAY [facility] tramadol HCl (TRAMADOL ORAL) 11-28 13:29: 47 Yes Take by mouth. [facility] amiodarone 200 mg tablet 11-28 13:29: 47 06-15 00:00 :00 No 200mg Take 1 tablet by mouth in the morning and 1 tablet in the evening. [facility] warfarin 1 mg tablet 11-28 00:00: 00 Yes [id number] TAKE 1 & 1/2 (ONE & ONE-HALF) TABLETS BY MOUTH IN THE EVENING [facility] nystatin (NYSTOP) 100,000 unit/gram powder 11-28 00:00: 00 03-21 00:00 :00 No [id number] Apply to area(s) 2 (two) times daily. [facility] METOPROLOL TARTRATE 25 mg tablet 11-27 00:00: 00 11-28 00:00 :00 No 25mg TAKE 1 TABLET BY MOUTH IN THE MORNING AND 1 IN THE EVENING [facility] SIMVASTATIN 20 mg tablet 11-20 00:00: 00 Yes 20mg TAKE 1 TABLET BY MOUTH AT BEDTIME [facility] GABAPENTIN 300 mg capsule 11-10 00:00: 00 12-11 00:00 :00 No TAKE 1 CAPSULE BY MOUTH TWICE DAILY IN THE MORNING AND IN THE EVENING [facility] hydrocortis one 10 mg tablet 0 30 00:00: 00 03-27 00:00 :00 No [id number] 10mg Take 1 tablet by mouth every morning and evening. Take double dose on sick days [facility] hydrocortis one 10 mg tablet 4-29 00:00: 00 11-07 00:00 :00 No [id number] 10mg Take 1 tablet by mouth every morning and evening. [facility] metoprolol tartrate 25 mg tablet 2023-0 4-25 00:00: 00 11-27 00:00 :00 No 25mg Take 1 tablet by mouth in the morning and 1 tablet in the evening. [facility] loperamide 2 mg capsule 2023-0 4-15 00:00: 00 12-05 00:00 :00 No [id number] TAKE DIRECTED - AFTER LOOSE STOOL, DO NOT TAKE MORE THEN 8 CAPSULES PER DAY [facility] SIMVASTATIN 20 mg tablet 2023-0 4-15 00:00: 00 11-20 00:00 :00 No 20mg TAKE 1 TABLET BY MOUTH AT BEDTIME [facility] gabapentin 300 mg capsule -07 00:00: 00 11-10 00:00 :00 No TAKE 1 CAPSULE BY MOUTH TWICE DAILY IN THE MORNING AND IN THE EVENING [facility] GABAPENTIN 300 mg capsule 2023-0 3-25 00:00: 00 10-15 00:00 :00 No TAKE 1 CAPSULE BY MOUTH TWICE DAILY IN THE MORNING AND IN THE EVENING [facility] GABAPENTIN 300 mg capsule 2023-0 3-11 00:00: 00 Yes TAKE 1 CAPSULE BY MOUTH TWICE DAILY IN THE MORNING AND IN THE EVENING [facility] loperamide 2 mg capsule 2023-0 3-11 00:00: 00 10-23 00:00 :00 No [id number] TAKE DIRECTED AFTER LOOSE STOOL, DO NOT TAKE MORE THAN 8 CAPSULES PER DAY [facility] SIMVASTATIN 20 mg tablet 2024-0 3-11 00:00: 00 -15 00:00 :00 No 20mg TAKE 1 TABLET BY MOUTH AT BEDTIME [facility] GABAPENTIN 300 mg capsule -19 00:00: 00 09-18 00:00 :00 No TAKE 1 CAPSULE BY MOUTH TWICE DAILY IN THE MORNING AND IN THE EVENING [facility] OMEPRAZOLE 40 mg capsule 2-12 00:00: 00 06-15 00:00 :00 No 40mg Take 1 capsule by mouth in the morning [facility] WARFARIN 1 mg tablet 2-12 00:00: 00 11-28 00:00 :00 No TAKE 1 & 1/2 (ONE & ONE-HALF) TABLETS BY MOUTH IN THE EVENING [facility] GABAPENTIN 300 mg capsule - 00:00: 00 08-29 00:00 :00 No TAKE 1 CAPSULE BY MOUTH IN THE MORNING AND 1 IN THE EVENING [facility] loperamide 2 mg capsule 2-05 00:00: 00 09-18 00:00 :00 No [id number] TAKE DIRECTED AFTER LOOSE STOOL , DO NOT TAKE MORE THAN 8 CAPSULES A DAY [facility] tramadol HCl (TRAMADOL ORAL) 1- 16:13: 32 Yes Take by mouth. [facility] loperamide 2 mg capsule 2022-07 2 00:00: 00 08-15 00:00 :00 No [id number] TAKE DIRECTED AFTER LOOSE STOOL - DO NOT TAKE MORE THAN 8 CAPSULES A DAY [facility] tramadol HCl (TRAMADOL ORAL) 2022-07 2- 14:13: 00 Yes Take by mouth. [facility] HYDROCORTIS ONE 10 mg tablet 2022-07 2-08 00:00: 00 Yes 10mg TAKE 1 TABLET BY MOUTH IN THE MORNING AND 1 IN THE EVENING [facility] simvastatin 20 mg tablet 2022-07 1-27 00:00: 00 09-18 00:00 :00 No 20mg Take 1 tablet by mouth at bedtime. [facility] warfarin 1 mg tablet 2022-07 00:00: 00 08-22 00:00 :00 No 1.5mg Take 1.5 tablets by mouth every evening. [facility] omeprazole (PRILOSEC) 40 mg capsule 2022-07 08:56: 58 05-27 00:00 :00 No 40mg Take 40 mg by mouth daily. [facility] gabapentin 300 mg capsule 2022-07 00:00: 00 08-22 00:00 :00 No 300mg Take 1 capsule by mouth in the morning and 1 capsule in the evening. [facility] omeprazole 40 mg capsule 2022-07 00:00: 00 08-22 00:00 :00 No 40mg Take 1 capsule by mouth in the morning. [facility] loperamide 2 mg capsule 2022-07 00:00: 00 07-06 00:00 :00 No [id number] TAKE DIRECTED AFTER EACH LOOSE STOOL, DO NOT TAKE MORE THAN 8 CAPSULES A DAY [facility] loperamide 2 mg capsule 04-08 00:00: 00 05-27 00:00 :00 No [id number] TAKE DIRECTED- AFTER EACH LOOSE STOOL DO NOT TAKE MORE THAN 8 CAPSULES A DAY [facility] docusate 100 mg capsule 03-22 22:12: 35 Yes 100mg Take 100 mg by mouth 2 (two) times daily. [facility] omeprazole (PRILOSEC) 40 mg capsule 03-22 22:12: 35 Yes 40mg Take 40 mg by mouth daily. [facility] cinacalcet 30 mg tablet 03-22 22:12: 35 Yes 30mg Take 30 mg by mouth at bedtime. [facility] warfarin (COUMADIN) tablet 1.5 mg 03-22 22:00: 00 Yes 1.5mg 1.5 mg, Oral, DAILY AT 1700, First dose (after last modificati on) on Tue03/22/23 at 1700, Until Discontinu ed, Routine
INR Goal Range: 2-3
IND ICATION (More than one indication for warfarin can be selected): DVT and/or PE [facility] NaCl 0.9% (NS) injection 5 mL 03-22 19:00: 00 03-22 19:00 :00 No 5mL 5 mL, Slow IV Push, ONCE, 1 dose, On Tue03/22/23 at 1400, Routine [facility] heparin 1,000 unit/mL (10 mL) - dialysis catheter care 03-22 18:59: 53 Yes 2000U 2,000 Units, Slow IV Push, PRN - SEE INSTRUCTIO NS, Starting on Tue03/22/23 at 1359, Until Discontinu ed, Routine, dialysis catheter care [facility] mesalamine 500 mg CR capsule 03-22 12:55: 15 03-22 00:00 :00 No 2000mg Take 2,000 mg by mouth 2 (two) times daily. [facility] apixaban 2.5 mg tablet 03-22 12:55: 15 03-22 00:00 :00 No 2.5mg Take 2.5 mg by mouth 2 (two) times daily. [facility] famotidine 20 mg tablet 03-22 12:55: 15 03-22 00:00 :00 No 20mg Take 20 mg by mouth in the morning and 20 mg in the evening. [facility] Lidocaine (LIDOCARE) 4 % patch 1 Patch 03-22 11:30: 00 03-22 22:51 :00 No 1{patch } 1 Patch, Topical, Administer over 12 Hours, ONCE, 1 dose, On Tue03/22/23 at 0630, Routine [facility] alum-mag hydroxide-s imeth (MAG-AL PLUS) 200-200-20 mg/5 mL suspension 30 mL 03-22 02:48: 01 Yes 30mL 30 mL, Oral, Q6HPRN, Starting on Tue03/21/23 at 2148, Until Discontinu ed, Routine, Indigestio n [facility] midodrine 5 mg tablet 03-22 00:00: 00 Yes 15mg Take 3 tablets by mouth every 8 (eight) hours. [facility] metoprolol tartrate 25 mg tablet 03-22 00:00: 00 11-02 00:00 :00 No 25mg Take 1 tablet by mouth in the morning and 1 tablet in the evening. [facility] hydrocortis one 10 mg tablet 03-22 00:00: 00 06-17 00:00 :00 No 10mg Take 1 tablet by mouth every 12 (twelve) hours. [facility] warfarin 1 mg tablet 03-22 00:00: 00 06-06 00:00 :00 No 1.5mg Take 1.5 tablets by mouth every evening. [facility] simvastatin 20 mg tablet 03-22 00:00: 00 06-06 00:00 :00 No 20mg Take 1 tablet by mouth at bedtime. [facility] gabapentin 300 mg capsule 03-22 00:00: 00 05-27 00:00 :00 No 300mg Take 1 capsule by mouth in the morning and 1 capsule in the evening. [facility] warfarin (COUMADIN) tablet 1 mg 03-20 22:00: 00 03-22 16:04 :17 No 1mg 1 mg, Oral, DAILY AT 1700, First dose on Tue03/20/23 at 1700, Until Discontinu ed, Routine
INR Goal Range: 2-3
IND ICATION (More than one indication for warfarin can be selected): DVT and/or PE [facility] pantoprazol e (PROTONIX) EC tablet 40 mg 03-18 14:00: 00 Yes 40mg 40 mg, Oral, DAILY, First dose on Tue03/18/23 at 0900, Until Discontinu ed, Routine [facility] gabapentin (NEURONTIN) capsule 300 mg 03-18 01:00: 00 Yes 300mg 300 mg, Oral, BID, First dose (after last modificati on) on Tue03/17/23 at 1999, Until Discontinu ed, Routine [facility] famotidine (PEPCID AC) tablet 20 mg 03-16 14:00: 00 03-17 20:10 :23 No 20mg 20 mg, Oral, DAILY, First dose (after last modificati on) on Tue03/16/23 at 0900, Until Discontinu ed, Routine [facility] ipratropium -albuteroL (DUONEB) 0.5 mg-3 mg(2.5 mg base)/3 mL nebulizer solution 3 mL 03-16 13:00: 00 Yes 3mL 3 mL, Inhalation , Q12H, First dose (after last modificati on) on Tue03/16/23 at 0800, Until Discontinu ed, [facility] 7% (HYPER-DYLON) nebulizer solution 4 mL 03-16 13:00: 00 Yes 4mL 4 mL, Inhalation , Q12H, First dose (after last modificati on) on Tue03/16/23 at 0800, Until Discontinu ed, Routine [facility] hydrocortis one (CORTEF) tablet 10 mg 03-16 01:00: 00 Yes 10mg 10 mg, Oral, Q12H, First dose (after last modificati on) on Tue03/15/23 at 1999, Until Discontinu ed, Routine [facility] apixaban (ELIQUIS) tablet 2.5 mg 03-16 01:00: 00 03-20 17:43 :24 No 2.5mg 2.5 mg, Oral, BID, First dose on Tue03/15/23 at 2000, Until Discontinu ed, Routine
Indicatio ns: Non-Valvul ar [facility] hydrocortis one (CORTEF) tablet 10 mg 03-15 15:00: 00 03-15 19:24 :30 No 10mg 10 mg, Oral, BID, First dose on Tue03/15/23 at 1000, Until Discontinu ed, Routine [facility] sulfur hexafluorid e microsphr (LUMASON) injection 5 mL 03-15 14:00: 00 03-15 14:00 :00 No [id number] 5mL 5 mL, Intravenou s, ONCE, 1 dose, On Tue03/15/23 at 0900, Routine
membership sales representative approving Restricted medication : HARI JACOBSON [facility] ipratropium -albuteroL (DUONEB) 0.5 mg-3 mg(2.5 mg base)/3 mL nebulizer solution 3 mL 03-15 02:15: 00 03-16 12:57 :16 No 3mL 3 mL, Inhalation , [id number], Starting on Tue03/14/23 at 2115, Until Tue03/16/23 at 0757, Routine, Wheezing [facility] metoprolol tartrate (LOPRESSOR) tablet 25 mg 03-15 02:00: 00 Yes 25mg 25 mg, Oral, BID, First dose on Tue03/14/23 at 2100, Until Discontinu ed, Routine [facility] ipratropium -albuteroL (DUONEB) 0.5 mg-3 mg(2.5 mg base)/3 mL nebulizer solution 3 mL 03-15 01:00: 00 03-15 02:12 :23 No 3mL 3 mL, Inhalation , Q12H, First dose on Tue03/14/23 at 2000, Until Discontinu ed, Routine [facility] sodium chloride 7% (HYPER-DYLON) nebulizer solution 4 mL 03-15 01:00: 00 03-15 02:12 :23 No 4mL 4 mL, Inhalation , Q12H, First dose on Tue03/14/23 at 1999, Until Discontinu ed, Routine [facility] acetylcyste ine (MUCOMYST) 200 mg/mL (20 %) inhalation solution 200 mg 03-14 23:00: 00 03-15 02:12 :22 No 1mL 200 mg (1 mL), Inhalation , Q6H, 12 doses, First dose on 03/14/23 at 1800, Last dose on Shelbie 03/17/23 at 1200, Routine [facility] albumin (ALBUMINAR 25%) 25 % injection 12.5 g 03-14 21:15: 00 03-14 21:18 :00 No 12.5g 12.5 g, IV Infusion, ONCE, 1 dose, On Tue03/14/23 at 1615, 50 mL
Stephany cation: NON-APPROV ED INDICATION - PHARMACY WILL CALL ORDERING PROVIDER<b r>Specific Indication : Prime for Hemodialys is
Facu lty Requesting Approval: MACKENZIE RUIZ [facility] heparin 25,000 Units/250 mL (Premixed Bag) in [...] INITIAL INFUSION RATE.&nbsp ; _ &nb sp;FOR [place], [facility], AND [facility] CAMP[facility]ES ONLY &nbs p; - aPTT < 35: [...] once therapeuti c levels are reached.<b r> [facility] midodrine (PROAMATINE ) tablet 15 mg 03-13 13:45: 00 Yes 15mg 15 mg, Oral, Q8H, First dose on 03/13/23 at 0845, Until Discontinu ed, Routine [facility] metoprolol (LOPRESSOR) injection 5 mg 03-13 08:21: 16 Yes 5mg 5 mg, Intravenou s, Q8HPRN, Starting on 03/13/23 at 0321, Until Discontinu ed, Routine, Afib with RVR [facility] CRRT fluid dialysate (PRISMASATE 4K) K 4.0-Ca 2.5, Mg 1.5, HCO3 32, NA 140, CL 113, LACTATE 3, DEX 110, Osm 300 03-13 04:00: 00 03-17 16:22 :49 No 4300mL/ h 4,300 mL/hr, CRRT Circuit, CONTINUOUS , Starting on 03/12/23 at 2300, Until Shelbie 03/17/23 at 1122, Routine [facility] NaCl 0.9% (NS) IV infusion 1,000 mL 03-13 04:00: 00 03-13 13:00 :28 No 1000mL at 300 mL/hr, CRRT Circuit, CONTINUOUS , Starting on 03/12/23 at 2300, Until 03/13/23 at 0800, Routine [facility] simvastatin (ZOCOR) tablet 20 mg 03-13 02:00: 00 Yes 20mg 20 mg, Oral, QHS, First dose on Tue03/12/23 at 2100, Until Discontinu ed, Routine [facility] cinacalcet (SENSIPAR) tablet 30 mg 03-13 02:00: 00 Yes 30mg 30 mg, Oral, QHS, First dose on Tue03/12/23 at 2100, Until Discontinu ed, Routine [facility] allopurinoL (ZYLOPRIM) tablet 100 mg 03-12 14:00: 00 Yes 100mg 100 mg, Oral, DAILY, First dose on Tue03/12/23 at 0900, Until Discontinu ed, Routine [facility] gabapentin (NEURONTIN) capsule 300 mg 03-12 13:00: 00 03-17 16:22 :49 No 300mg 300 mg, Oral, TID, First dose on Tue03/12/23 at 0800, Until Discontinu ed, Routine [facility] famotidine (PEPCID AC) tablet 20 mg 03-12 13:00: 00 03-15 14:45 :25 No 20mg 20 mg, Oral, BID, First dose on Tue03/12/23 at 0800, Until Discontinu ed, Routine [facility] hydrocortis one sod succ (CORTEF) injection 50 mg 03-12 11:00: 00 03-15 10:59 :00 No 50mg 50 mg, Intravenou s, Q6H, 12 doses, First dose on Tue03/12/23 at 0600, Last dose on Tue03/15/23 at 0000, [address] [facility] iopamidol (ISOVUE 370-500 mL) injection 120 mL 03-12 10:21: 00 03-12 10:00 :00 No [id number] 120mL 120 mL, Intravenou s, ONCE, 1 dose, On Tue03/12/23 at 0530, Routine [facility] phytonadion e (VITAMIN K) 10 mg in NaCl 0.9% (NS) piggyback 03-12 08:30: 00 03-12 09:20 :00 No 10mg IV Piggyback, ONCE, 1 dose, On 03/12/23 at 0330, 50 mL [facility] hum prothrombin cplx(PCC)4f act (KCENTRA) injection 2,000 Units 03-12 07:45: 00 03-12 10:41 :00 No 2000U 2,000 Units, Intravenou s, ONCE, 1 dose, On 03/12/23 at 0245, 80 mL
Appr inder by: JEFFREY HARRIS MD [facility] NORepinephr ine 16 mg in NS 250 [...] at maximum allowed dose, contact prescriber .
[facility] TRAMADOL 50 mg tablet 02-01 00:00: 00 03-22 00:00 :00 No [id number] TAKE 1 TABLET BY MOUTH EVERY 8 HOURS NEEDED FOR PAIN [facility] triamcinolo ne acetonide (KENALOG) injection 40 mg 01-21 16:45: 00 01-21 15:36 :00 No [id number] 9100 40mg [facility] loperamide 2 mg capsule 01-20 00:00: 00 04-08 00:00 :00 No [id number] TAKE DIRECTED - AFTER EACH LOOSE STOOL ( DO NOT TAKE MORE THAN 8 CAPSULES A DAY) [facility] midodrine 5 mg tablet 01-12 00:00: 00 03-22 00:00 :00 No [id number] 15mg Take 3 tablets by mouth in the morning and 3 tablets at noon and 3 tablets in the evening. Take 5 mg by mouth. [facility] midodrine 5 mg tablet 01-10 07:48: 30 01-10 00:00 :00 No 5mg Take 5 mg by mouth. [facility] midodrine 5 mg tablet 01-10 00:00: 00 01-12 00:00 :00 No [id number] 5mg Take 1 tablet by mouth in the morning. Take 5 mg by mouth. [facility] allopurinoL 100 mg tablet 01-05 17:09: 16 01-05 22:09 :13 No 100mg Take 1 tablet by mouth in the morning. [facility] ALLOPURINOL 100 mg tablet 01-05 00:00: 00 Yes [id number] Take 1 tablet by mouth once daily [facility] loperamide 2 mg capsule 12-15 00:00: 00 01-20 00:00 :00 No [id number] TAKE DIRECTED AFTER EACH LOOSE STOOL - DO NOT TAKE MORE THAN 8 CAPSULES A DAY [facility] metoprolol tartrate 50 mg tablet 24 00:00: 00 03-22 00:00 :00 No 50mg Take 1 tablet by mouth in the morning and 1 tablet in the evening. [facility] allopurinoL 100 mg tablet 10 10:53: 06 Yes 100mg Take 1 tablet by mouth in the morning. [facility] midodrine 5 mg tablet 11-17 10:51: 23 Yes 5mg Take 5 mg by mouth. [facility] krill/om-3/ dha/epa/meron spho/ast (MAXIMUM RED KRILL OMEGA-3 ORAL) 11-17 10:49: 44 11-17 00:00 :00 No 1{tbl} Take 1 tablet by mouth daily. [facility] traMADoL 50 mg tablet 5-10 00:00: 00 02-01 00:00 :00 No [id number] 50mg Take 1 tablet by mouth every 8 (eight) hours as needed (pain). Indication s: chronic pain [facility] loperamide 2 mg capsule 510 00:00: 00 12-15 00:00 :00 No [id number] TAKE DIRECTED AFTER EACH LOOSE STOOL, DO NOT TAKE MORE THAB 8 CAPSULES A DAY [facility] gabapentin 300 mg capsule 24 00:00: 00 03-22 00:00 :00 No [id number] 2 300mg Take 1 capsule by mouth in the morning and 1 capsule at noon and 1 capsule in the evening. [facility] fludrocorti sone 0.1 mg tablet 24 00:00: 00 03-12 00:00 :00 No [id number] .1mg Take 1 tablet by mouth in the morning. [facility] metoprolol tartrate 50 mg tablet 4-14 00:00: 00 12-01 00:00 :00 No 50mg Take 1 tablet by mouth in the morning and 1 tablet in the evening. [facility] LOPERAMIDE 2 mg capsule 4-13 00:00: 00 11-17 00:00 :00 No [id number] TAKE DIRECTED AFTER EACH LOOSE STOOL, DO NOT TAKE MORE THAB 8 CAPSULES A DAY [facility] TRAMADOL 50 mg tablet 3-30 00:00: 00 11-17 00:00 :00 No [id number] TAKE 1 TABLET BY MOUTH EVERY 8 HOURS NEEDED FOR PAIN [facility] carbamide peroxide 6.5 % otic solution 3-24 00:00: 00 11-17 00:00 :00 No [id number] 00406 5[drp] Place 5 Drops in both ears once daily as needed for Other (cerumen impaction) . [facility] fludrocorti sone 0.1 mg tablet 3-24 00:00: 00 11-01 00:00 :00 No [id number] .1mg Take 1 tablet by mouth in the morning. [facility] TRAMADOL 50 mg tablet 3-20 00:00: 00 10-07 00:00 :00 No [id number] TAKE 1 TABLET BY MOUTH EVERY 8 HOURS NEEDED FOR PAIN [facility] loperamide 2 mg capsule 3-06 00:00: 00 10-20 00:00 :00 No [id number] TAKE DIRECTED AFTER EACH LOOSE STOOL, DO NOT TAKE MORE THAB 8 CAPSULES A DAY [facility] TRAMADOL 50 mg tablet 3 00:00: 00 09-27 00:00 :00 No [id number] TAKE 1 TABLET BY MOUTH EVERY 8 HOURS NEEDED FOR PAIN [facility] hydrocortis one 10 mg tablet 2 00:00: 00 03-12 00:00 :00 No [id number] 10mg Take 1 tablet by mouth in the morning and 1 tablet in the evening. Will take 4 pills a day on your sick day s [facility] fludrocorti sone 0.1 mg tablet 2- 00:00: 00 10-01 00:00 :00 No [id number] .1mg Take 1 tablet by mouth in the morning. [facility] TRAMADOL 50 mg tablet 2-20 00:00: 00 09-13 00:00 :00 No [id number] TAKE 1 TABLET BY MOUTH EVERY 8 HOURS NEEDED FOR PAIN [facility] VENTOLIN HFA 90 mcg/actuati on inhaler 08-27 00:00: 00 Yes [id number] INHALE 2 PUFFS BY MOUTH EVERY 6 HOURS NEEDED FOR WHEEZING FOR SHORTNESS OF BREATH [facility] TRAMADOL 50 mg tablet 2- 00:00: 00 08-30 00:00 :00 No [id number] TAKE 1 TABLET BY MOUTH EVERY 8 HOURS NEEDED FOR PAIN [facility] docusate 100 mg capsule 08-13 11:12: 55 Yes 100mg Take 100 mg by mouth 2 (two) times daily. [facility] omeprazole (PRILOSEC) 40 mg capsule 08-13 11:12: 55 Yes 40mg Take 40 mg by mouth daily. [facility] mesalamine 500 mg CR capsule 08-13 11:12: 55 Yes 2000mg Take 2,000 mg by mouth 2 (two) times daily. [facility] apixaban 2.5 mg tablet 08-13 11:12: 55 Yes 2.5mg Take 2.5 mg by mouth 2 (two) times daily. [facility] cinacalcet 30 mg tablet 08-13 11:12: 55 Yes 30mg Take 30 mg by mouth at bedtime. [facility] krill/om-3/ dha/epa/meron spho/ast (MAXIMUM RED KRILL OMEGA-3 ORAL) 08-13 11:12: 55 Yes 1{tbl} Take 1 tablet by mouth daily. [facility] famotidine 20 mg tablet 08-13 11:12: 55 Yes 20mg Take 20 mg by mouth in the morning and 20 mg in the evening. [facility] midodrine 5 mg tablet 08-13 11:12: 55 Yes 5mg Take 5 mg by mouth. [facility] TRAMADOL 50 mg tablet 07-27 00:00: 00 08-16 00:00 :00 No [id number] TAKE 1 TABLET BY MOUTH EVERY 8 HOURS NEEDED FOR PAIN [facility] TRAMADOL 50 mg tablet 07-19 00:00: 00 Yes [id number] TAKE 1 TABLET BY MOUTH EVERY 8 HOURS NEEDED FOR PAIN [facility] LOPERAMIDE 2 mg capsule 07-19 00:00: 00 09-13 00:00 :00 No [id number] TAKE DIRECTED AFTER EACH LOOSE STOOL, DO NOT TAKE MORE THAN 8 CAPSULES PER DAY [facility] VENTOLIN HFA 90 mcg/actuati on inhaler 07-15 00:00: 08-27 00:00 :00 No [id number] INHALE 2 PUFFS BY MOUTH EVERY 6 HOURS NEEDED FOR WHEEZING FOR SHORTNESS OF BREATH [facility] metoprolol tartrate 100 mg tablet 2021-07 00:00: 00 11-17 00:00 :00 No Take 1 tablet by mouth twice daily [facility] allopurinoL 100 mg tablet 2021-07 00:00: 00 11-17 00:00 :00 No [id number] Take 1 tablet by mouth once daily [facility] gabapentin 300 mg capsule 2021-07 00:00: 00 11-01 00:00 :00 No [id number] 2 TAKE 1 CAPSULE BY MOUTH THREE TIMES DAILY [facility] TRAMADOL 50 mg tablet 2021-07 00:00: 00 07-19 00:00 :00 No [id number] TAKE 1 TABLET BY MOUTH EVERY 8 HOURS NEEDED FOR PAIN (SHOULDER OR KNEE) [facility] LOPERAMIDE 2 mg capsule 2021-07 00:00: 00 07-19 00:00 :00 No [id number] TAKE DIRECTED AFTER EACH LOOSE STOOL. DO NOT TAKE MORE THAN 8 CAPSULES PER DAY [facility] TRAMADOL 50 mg tablet 2021-07 00:00: 07-06 00:00 :00 No [id number] TAKE 1 TABLET BY MOUTH EVERY 8 HOURS NEEDED FOR PAIN (SHULDER OR KNEE) [facility] VENTOLIN HFA 90 mcg/actuati on inhaler 2021-07 00:00: 00 07-15 00:00 :00 No [id number] INHALE 2 PUFFS BY MOUTH EVERY 6 HOURS NEEDED FOR WHEEZING FOR SHORTNESS OF BREATH [facility] simvastatin 20 mg tablet 2021-07 00:00: 00 03-22 00:00 :00 No [id number] 20mg TAKE 1 TABLET BY MOUTH AT BEDTIME [facility] ALLOPURINOL 100 mg tablet 2021-07 00:00: 00 07-06 00:00 :00 No [id number] Take 1 tablet by mouth once daily [facility] TRAMADOL 50 mg tablet 2021-07 00:00: 00 06-21 00:00 :00 No [id number] TAKE 1 TABLET BY MOUTH EVERY 8 HOURS NEEDED FOR PAIN FOR SHOULDER OR KNEE [facility] METOPROLOL TARTRATE 100 mg tablet 2021-07 00:00: 00 07-06 00:00 :00 No Take 1 tablet by mouth twice daily [facility] loperamide 2 mg capsule 2021-07 00:00: 00 06-21 00:00 :00 No [id number] TAKE DIRECTED AFTER EACH LOOSE STOOL. DO NOT TAKE MORE THAN 8 CAPSULES PER DAY [facility] GABAPENTIN 300 mg capsule 2021-07 00:00: 00 07-06 00:00 :00 No [id number] 2 TAKE 1 CAPSULE BY MOUTH THREE TIMES DAILY [facility] VENTOLIN HFA 90 mcg/actuati on inhaler 2021-07 0 00:00: 00 06-16 00:00 :00 No [id number] INHALE 2 PUFFS BY MOUTH EVERY 6 HOURS NEEDED FOR WHEEZING FOR SHORTNESS OF BREATH [facility] TRAMADOL 50 mg tablet 2021-07 0-24 00:00: 00 06-07 00:00 :00 No [id number] TAKE 1 TABLET BY MOUTH EVERY 8 HOURS NEEDED FOR PAIN SHOULDER OF KNEE [facility] ALLOPURINOL 100 mg tablet 2021-07 0-24 00:00: 00 06-07 00:00 :00 No [id number] Take 1 tablet by mouth once daily [facility] METOPROLOL TARTRATE 100 mg tablet 2021-07 0-24 00:00: 00 06-01 00:00 :00 No Take 1 tablet by mouth twice daily [facility] VENTOLIN HFA 90 mcg/actuati on inhaler 04-06 00:00: 00 Yes [id number] INHALE 2 PUFFS BY MOUTH EVERY 6 HOURS NEEDED FOR WHEEZING FOR SHORTNESS OF BREATH [facility] GABAPENTIN 300 mg capsule 04-05 00:00: 00 05-03 00:00 :00 No [id number] 2 TAKE 1 CAPSULE BY MOUTH THREE TIMES DAILY [facility] ALLOPURINOL 100 mg tablet 03-30 00:00: 00 05-03 00:00 :00 No [id number] Take 1 tablet by mouth once daily [facility] Needle, Disp, 24 G 24 gauge x 1" Ndle 03-24 00:00: 00 Yes [id number] Use as directed [facility] Needle, Disp, 24 G 24 gauge x 1" Ndle 03-24 00:00: 00 03-22 00:00 :00 No [id number] Use as directed [facility] fludrocorti sone 0.1 mg tablet 03-24 00:00: 00 08-31 00:00 :00 No [id number] .1mg Take 1 tablet by mouth in the morning. [facility] loperamide 2 mg capsule 03-23 00:00: 00 05-10 00:00 :00 No [id number] TAKE DIRECTED AFTER EACH LOOSE STOOL. DO NOT TAKE MORE THAN 8 CAPSULES A DAY [facility] hydrocortis one 10 mg tablet 03-10 00:00: 00 08-31 00:00 :00 No [id number] 10mg Take 1 tablet by mouth in the morning and 1 tablet in the evening. [facility] VENTOLIN HFA 90 mcg/actuati on inhaler 03-08 00:00: 00 04-06 00:00 :00 No [id number] INHALE 2 PUFFS BY MOUTH EVERY 6 HOURS NEEDED FOR WHEEZING FOR SHORTNESS OF BREATH [facility] SIMVASTATIN 20 mg tablet 03-05 00:00: 00 06-14 00:00 :00 No [id number] 20mg TAKE 1 TABLET BY MOUTH AT BEDTIME [facility] METOPROLOL TARTRATE 100 mg tablet 03-02 00:00: 00 05-03 00:00 :00 No Take 1 tablet by mouth twice daily [facility] ALLOPURINOL 100 mg tablet 03-02 00:00: 00 03-30 00:00 :00 No [id number] Take 1 tablet by mouth once daily [facility] traMADoL 50 mg tablet 02-12 00:00: 00 05-03 00:00 :00 No [id number] 50mg Take 1 tablet by mouth every 8 (eight) hours as needed (pain shoulder or knee). Indication s: chronic pain [facility] omeprazole (PRILOSEC) 40 mg capsule 01-29 15:58: 03 Yes 40mg Take 40 mg by mouth daily. [facility] mesalamine 500 mg CR capsule 01-29 15:58: 03 Yes 2000mg Take 2,000 mg by mouth 2 (two) times daily. [facility] tramadol HCl (TRAMADOL ORAL) 01-29 15:58: 03 Yes 1{tbl} Take by mouth. [facility] docusate 100 mg capsule 01-29 15:58: 02 Yes 100mg Take 100 mg by mouth 2 (two) times daily. [facility] apixaban 2.5 mg tablet 01-29 15:58: 02 Yes 2.5mg Take 2.5 mg by mouth 2 (two) times daily. [facility] cinacalcet 30 mg tablet 01-29 15:58: 02 Yes 30mg Take 30 mg by mouth at bedtime. [facility] gabapentin 300 mg capsule 02-27 00:00: 00 04-05 00:00 :00 No [id number] 2 300mg Take 1 capsule by mouth 3 (three) times daily. [facility] Immunizations Ordered Immunization Name Filled Immunization Name Date Status Comments Source SARS-COV-2 COVID-19 VACCINE 12 YRS+, BIVALENT 0.5ML, IM, (MODERNA BOOSTER) 2022-06-21 00:00:00 Completed [facility] SARS-COV-2 COVID-19 VACCINE 12 YRS+, BIVALENT 0.5ML, IM, (MODERNA BOOSTER) 2022-06-21 00:00:00 Completed [facility] SARS-COV-2 COVID-19 VACCINE 12 YRS+, BIVALENT 0.5ML, IM, (MODERNA BOOSTER) 2022-06-21 00:00:00 Completed [facility] SARS-COV-2 COVID-19 VACCINE 12 YRS+, BIVALENT 0.5ML, IM, (MODERNA BOOSTER) 2022-06-21 00:00:00 Completed [facility] SARS-COV-2 COVID-19 VACCINE 12 YRS+, BIVALENT 0.5ML, IM, (MODERNA BOOSTER) 2022-06-21 00:00:00 Completed [facility] SARS-COV-2 COVID-19 VACCINE 12 YRS+, BIVALENT 0.5ML, IM, (MODERNA BOOSTER) 2022-06-21 00:00:00 Completed [facility] SARS-COV-2 COVID-19 VACCINE 12 YRS+, BIVALENT 0.5ML, IM, (MODERNA BOOSTER) 2022-06-21 00:00:00 Completed [facility] SARS-COV-2 COVID-19 VACCINE 12 YRS+, BIVALENT 0.5ML, IM, (MODERNA BOOSTER) 2022-06-21 00:00:00 Completed [facility] SARS-COV-2 COVID-19 VACCINE 12 YRS+, BIVALENT 0.5ML, IM, (MODERNA BOOSTER) 2022-06-21 00:00:00 Completed [facility] SARS-COV-2 COVID-19 VACCINE 12 YRS+, BIVALENT 0.5ML, IM, (MODERNA BOOSTER) 2022-06-21 00:00:00 Completed [facility] SARS-COV-2 COVID-19 VACCINE 12 YRS+, BIVALENT 0.5ML, IM, (MODERNA BOOSTER) 2022-06-21 00:00:00 Completed [facility] SARS-COV-2 COVID-19 VACCINE 12 YRS+, BIVALENT 0.5ML, IM, (MODERNA BOOSTER) 2022-06-21 00:00:00 Completed [facility] SARS-COV-2 COVID-19 VACCINE 12 YRS+, BIVALENT 0.5ML, IM, (MODERNA BOOSTER) 2022-06-21 00:00:00 Completed [facility] SARS-COV-2 COVID-19 VACCINE 12 YRS+, BIVALENT 0.5ML, IM, (MODERNA BOOSTER) 2022-06-21 00:00:00 Completed [facility] SARS-COV-2 COVID-19 VACCINE 12 YRS+, BIVALENT 0.5ML, IM, (MODERNA BOOSTER) 2022-06-21 00:00:00 Completed [facility] SARS-COV-2 COVID-19 VACCINE 12 YRS+, BIVALENT 0.5ML, IM, (MODERNA BOOSTER) 2022-06-21 00:00:00 Completed [facility] SARS-COV-2 COVID-19 VACCINE 12 YRS+, BIVALENT 0.5ML, IM, (MODERNA BOOSTER) 2022-06-21 00:00:00 Completed [facility] SARS-COV-2 COVID-19 VACCINE 12 YRS+, BIVALENT 0.5ML, IM, (MODERNA BOOSTER) 2022-06-21 00:00:00 Completed [facility] SARS-COV-2 COVID-19 VACCINE 12 YRS+, BIVALENT 0.5ML, IM, (MODERNA BOOSTER) 2022-06-21 00:00:00 Completed [facility] SARS-COV-2 COVID-19 VACCINE 12 YRS+, BIVALENT 0.5ML, IM, (MODERNA BOOSTER) 2022-06-21 00:00:00 Completed [facility] SARS-COV-2 COVID-19 VACCINE 12 YRS+, BIVALENT 0.5ML, IM, (MODERNA BOOSTER) 2022-06-21 00:00:00 Completed [facility] SARS-COV-2 COVID-19 VACCINE 12 YRS+, BIVALENT 0.5ML, IM, (MODERNA BOOSTER) 2022-06-21 00:00:00 Completed [facility] SARS-COV-2 COVID-19 VACCINE 12 YRS+, BIVALENT 0.5ML, IM, (MODERNA BOOSTER) 2022-06-21 00:00:00 Completed [facility] SARS-COV-2 COVID-19 VACCINE 12 YRS+, BIVALENT 0.5ML, IM, (MODERNA BOOSTER) 2022-06-21 00:00:00 Completed [facility] SARS-COV-2 COVID-19 VACCINE 12 YRS+, BIVALENT 0.5ML, IM, (MODERNA BOOSTER) 2022-06-21 00:00:00 Completed [facility] SARS-COV-2 COVID-19 VACCINE 12 YRS+, BIVALENT 0.5ML, IM, (MODERNA BOOSTER) 2022-06-21 00:00:00 Completed [facility] SARS-COV-2 COVID-19 VACCINE 12 YRS+, BIVALENT 0.5ML, IM, (MODERNA BOOSTER) 2022-06-21 00:00:00 Completed [facility] SARS-COV-2 COVID-19 VACCINE 12 YRS+, BIVALENT 0.5ML, IM, (MODERNA BOOSTER) 2022-06-21 00:00:00 Completed [facility] SARS-COV-2 COVID-19 VACCINE 12 YRS+, BIVALENT 0.5ML, IM, (MODERNA BOOSTER) 2022-06-21 00:00:00 Completed [facility] SARS-COV-2 COVID-19 VACCINE 12 YRS+, BIVALENT 0.5ML, IM, (MODERNA BOOSTER) 2022-06-21 00:00:00 Completed [facility] SARS-COV-2 COVID-19 VACCINE 12 YRS+, BIVALENT 0.5ML, IM, (MODERNA) 2022-06-21 00:00:00 Completed [facility] SARS-COV-2 COVID-19 VACCINE 12 YRS+, BIVALENT 0.5ML, IM, (MODERNA) 2022-06-21 00:00:00 Completed [facility] SARS-COV-2 COVID-19 VACCINE 12 YRS+, BIVALENT 0.5ML, IM, (MODERNA) 2022-06-21 00:00:00 Completed [facility] SARS-COV-2 COVID-19 VACCINE 12 YRS+, BIVALENT 0.5ML, IM, (MODERNA-BLUE TOP) 2022-06-21 00:00:00 Completed [facility] SARS-COV-2 COVID-19 VACCINE 12 YRS+, BIVALENT 0.5ML, IM, (MODERNA-BLUE TOP) 2022-06-21 00:00:00 Completed [facility] SARS-COV-2 COVID-19 VACCINE 12 YRS+, BIVALENT 0.5ML, IM, (MODERNA-BLUE TOP) 2022-06-21 00:00:00 Completed [facility] SARS-COV-2 COVID-19 VACCINE 12 YRS+, BIVALENT 0.5ML, IM, (MODERNA-BLUE TOP) 2022-06-21 00:00:00 Completed [facility] SARS-COV-2 COVID-19 VACCINE 12 YRS+, BIVALENT 0.5ML, IM, (MODERNA-BLUE TOP) 2022-06-21 00:00:00 Completed [facility] SARS-COV-2 COVID-19 VACCINE 12 YRS+, BIVALENT 0.5ML, IM, (MODERNA-BLUE TOP) 2022-06-21 00:00:00 Completed [facility] SARS-COV-2 COVID-19 VACCINE 12 YRS+, BIVALENT 0.5ML, IM, (MODERNA-BLUE TOP) 2022-06-21 00:00:00 Completed [facility] SARS-COV-2 COVID-19 VACCINE 12 YRS+, BIVALENT 0.5ML, IM, (MODERNA-BLUE TOP) 2022-06-21 00:00:00 Completed [facility] SARS-COV-2 COVID-19 VACCINE 12 YRS+, BIVALENT 0.5ML, IM, (MODERNA-BLUE TOP) 2022-06-21 00:00:00 Completed [facility] SARS-COV-2 COVID-19 VACCINE 12 YRS+, BIVALENT 0.5ML, IM, (MODERNA-BLUE TOP) 2022-06-21 00:00:00 Completed [facility] SARS-COV-2 COVID-19 VACCINE 12 YRS+, BIVALENT 0.5ML, IM, (MODERNA-BLUE TOP) 2022-06-21 00:00:00 Completed [facility] SARS-COV-2 COVID-19 VACCINE 12 YRS+, BIVALENT 0.5ML, IM, (MODERNA-BLUE TOP) 2022-06-21 00:00:00 Completed [facility] SARS-COV-2 COVID-19 VACCINE 12 YRS+, BIVALENT 0.5ML, IM, (MODERNA-BLUE TOP) 2022-06-21 00:00:00 Completed [facility] SARS-COV-2 COVID-19 VACCINE 12 YRS+, BIVALENT 0.5ML, IM, (MODERNA-BLUE TOP) 2022-06-21 00:00:00 Completed [facility] SARS-COV-2 COVID-19 VACCINE 12 YRS+, BIVALENT 0.5ML, IM, (MODERNA-BLUE TOP) 2022-06-21 00:00:00 Completed [facility] SARS-COV-2 COVID-19 VACCINE 12 YRS+, BIVALENT 0.5ML, IM, (MODERNA-BLUE TOP) 2022-06-21 00:00:00 Completed [facility] SARS-COV-2 COVID-19 VACCINE 12 YRS+, BIVALENT 0.5ML, IM, (MODERNA-BLUE TOP) 2022-06-21 00:00:00 Completed [facility] SARS-COV-2 COVID-19 VACCINE 12 YRS+, BIVALENT 0.5ML, IM, (MODERNA-BLUE TOP) 2022-06-21 00:00:00 Completed [facility] SARS-COV-2 COVID-19 VACCINE 12 YRS+, BIVALENT 0.5ML, IM, (MODERNA-BLUE TOP) 2022-06-21 00:00:00 Completed [facility] SARS-COV-2 COVID-19 VACCINE 12 YRS+, BIVALENT 0.5ML, IM, (MODERNA-BLUE TOP) 2022-06-21 00:00:00 Completed SARS-COV-2 COVID-19 VACCINE 12 YRS+, BIVALENT 0.5ML, IM, (MODERNA-BLUE TOP) 2022-06-21 00:00:00 Completed SARS-COV-2 COVID-19 VACCINE - (MODERNA) 2022-01-10 00:00:00 Completed [facility] SARS-COV-2 COVID-19 VACCINE - (MODERNA) 2022-01-10 00:00:00 Completed [facility] SARS-COV-2 COVID-19 VACCINE - (MODERNA) 2022-01-10 00:00:00 Completed [facility] SARS-COV-2 COVID-19 VACCINE - (MODERNA) 2022-01-10 00:00:00 Completed [facility] SARS-COV-2 COVID-19 VACCINE - (MODERNA) 2022-01-10 00:00:00 Completed [facility] SARS-COV-2 COVID-19 VACCINE - (MODERNA) 2022-01-10 00:00:00 Completed [facility] SARS-COV-2 COVID-19 VACCINE - (MODERNA) 2022-01-10 00:00:00 Completed [facility] SARS-COV-2 COVID-19 VACCINE - (MODERNA) 2022-01-10 00:00:00 Completed [facility] SARS-COV-2 COVID-19 VACCINE - (MODERNA) 2022-01-10 00:00:00 Completed [facility] SARS-COV-2 COVID-19 VACCINE - (MODERNA) 2022-01-10 00:00:00 Completed [facility] SARS-COV-2 COVID-19 VACCINE - (MODERNA) 2022-01-10 00:00:00 Completed [facility] SARS-COV-2 COVID-19 VACCINE - (MODERNA) 2022-01-10 00:00:00 Completed [facility] SARS-COV-2 COVID-19 VACCINE - (MODERNA) 2022-01-10 00:00:00 Completed [facility] SARS-COV-2 COVID-19 VACCINE - (MODERNA) 2022-01-10 00:00:00 Completed [facility] SARS-COV-2 COVID-19 VACCINE - (MODERNA) 2022-01-10 00:00:00 Completed [facility] SARS-COV-2 COVID-19 VACCINE - (MODERNA) 2022-01-10 00:00:00 Completed [facility] SARS-COV-2 COVID-19 VACCINE - (MODERNA) 2022-01-10 00:00:00 Completed [facility] SARS-COV-2 COVID-19 VACCINE - (MODERNA) 2022-01-10 00:00:00 Completed [facility] SARS-COV-2 COVID-19 VACCINE - (MODERNA) 2022-01-10 00:00:00 Completed [facility] SARS-COV-2 COVID-19 VACCINE - (MODERNA) 2022-01-10 00:00:00 Completed [facility] SARS-COV-2 COVID-19 VACCINE - (MODERNA) 2022-01-10 00:00:00 Completed [facility] SARS-COV-2 COVID-19 VACCINE - (MODERNA) 2022-01-10 00:00:00 Completed [facility] SARS-COV-2 COVID-19 VACCINE - (MODERNA) 2022-01-10 00:00:00 Completed [facility] SARS-COV-2 COVID-19 VACCINE - (MODERNA) 2022-01-10 00:00:00 Completed [facility] SARS-COV-2 COVID-19 VACCINE - (MODERNA) 2022-01-10 00:00:00 Completed [facility] SARS-COV-2 COVID-19 VACCINE - (MODERNA) 2022-01-10 00:00:00 Completed [facility] SARS-COV-2 COVID-19 VACCINE - (MODERNA) 2022-01-10 00:00:00 Completed [facility] SARS-COV-2 COVID-19 VACCINE - (MODERNA) 2022-01-10 00:00:00 Completed [facility] SARS-COV-2 COVID-19 VACCINE - (MODERNA) 2022-01-10 00:00:00 Completed [facility] SARS-COV-2 COVID-19 VACCINE - (MODERNA) 2022-01-10 00:00:00 Completed [facility] SARS-COV-2 COVID-19 VACCINE - (MODERNA) 2022-01-10 00:00:00 Completed [facility] SARS-COV-2 COVID-19 VACCINE - (MODERNA) 2022-01-10 00:00:00 Completed [facility] SARS-COV-2 COVID-19 VACCINE - (MODERNA) 2022-01-10 00:00:00 Completed [facility] SARS-COV-2 COVID-19 VACCINE - (MODERNA) 2022-01-10 00:00:00 Completed [facility] SARS-COV-2 COVID-19 VACCINE - (MODERNA) 2022-01-10 00:00:00 Completed [facility] SARS-COV-2 COVID-19 VACCINE - (MODERNA) 2022-01-10 00:00:00 Completed [facility] SARS-COV-2 COVID-19 VACCINE - (MODERNA) 2022-01-10 00:00:00 Completed [facility] SARS-COV-2 COVID-19 VACCINE - (MODERNA) 2022-01-10 00:00:00 Completed [facility] SARS-COV-2 COVID-19 VACCINE - (MODERNA) 2022-01-10 00:00:00 Completed [facility] SARS-COV-2 COVID-19 VACCINE - (MODERNA) 2022-01-10 00:00:00 Completed [facility] SARS-COV-2 COVID-19 VACCINE - (MODERNA) 2022-01-10 00:00:00 Completed [facility] SARS-COV-2 COVID-19 VACCINE - (MODERNA) 2022-01-10 00:00:00 Completed [facility] SARS-COV-2 COVID-19 VACCINE - (MODERNA) 2022-01-10 00:00:00 Completed [facility] SARS-COV-2 COVID-19 VACCINE - (MODERNA) 2022-01-10 00:00:00 Completed [facility] SARS-COV-2 COVID-19 VACCINE - (MODERNA) 2022-01-10 00:00:00 Completed [facility] SARS-COV-2 COVID-19 VACCINE - (MODERNA) 2022-01-10 00:00:00 Completed [facility] SARS-COV-2 COVID-19 VACCINE - (MODERNA) 2022-01-10 00:00:00 Completed [facility] SARS-COV-2 COVID-19 VACCINE - (MODERNA) 2022-01-10 00:00:00 Completed [facility] SARS-COV-2 COVID-19 VACCINE - (MODERNA) 2022-01-10 00:00:00 Completed [facility] SARS-COV-2 COVID-19 VACCINE - (MODERNA) 2022-01-10 00:00:00 Completed [facility] SARS-COV-2 COVID-19 VACCINE - (MODERNA) 2022-01-10 00:00:00 Completed [facility] SARS-COV-2 COVID-19 VACCINE - (MODERNA) 2022-01-10 00:00:00 Completed [facility] SARS-COV-2 COVID-19 VACCINE - (MODERNA) 2022-01-10 00:00:00 Completed [facility] SARS-COV-2 COVID-19 VACCINE - (MODERNA) 2022-01-10 00:00:00 Completed [facility] SARS-COV-2 COVID-19 VACCINE - (MODERNA) 2022-01-10 00:00:00 Completed SARS-COV-2 COVID-19 VACCINE - (MODERNA) 2022-01-10 00:00:00 Completed SARS-COV-2 COVID-19 MODERNA 0.25ML BOOSTER VACCINE 2021-06-22 00:00:00 Completed [facility] SARS-COV-2 COVID-19 MODERNA 0.25ML BOOSTER VACCINE 2021-06-22 00:00:00 Completed [facility] SARS-COV-2 COVID-19 MODERNA 0.25ML BOOSTER VACCINE 2021-06-22 00:00:00 Completed [facility] SARS-COV-2 COVID-19 MODERNA 0.25ML BOOSTER VACCINE 2021-06-22 00:00:00 Completed [facility] SARS-COV-2 COVID-19 MODERNA 0.25ML BOOSTER VACCINE 2021-06-22 00:00:00 Completed [facility] SARS-COV-2 COVID-19 MODERNA 0.25ML BOOSTER VACCINE 2021-06-22 00:00:00 Completed [facility] SARS-COV-2 COVID-19 MODERNA 0.25ML BOOSTER VACCINE 2021-06-22 00:00:00 Completed [facility] SARS-COV-2 COVID-19 MODERNA 0.25ML BOOSTER VACCINE 2021-06-22 00:00:00 Completed [facility] SARS-COV-2 COVID-19 MODERNA 0.25ML BOOSTER VACCINE 2021-06-22 00:00:00 Completed [facility] SARS-COV-2 COVID-19 MODERNA 0.25ML BOOSTER VACCINE 2021-06-22 00:00:00 Completed [facility] SARS-COV-2 COVID-19 MODERNA 0.25ML BOOSTER VACCINE 2021-06-22 00:00:00 Completed [facility] SARS-COV-2 COVID-19 MODERNA 0.25ML BOOSTER VACCINE 2021-06-22 00:00:00 Completed [facility] SARS-COV-2 COVID-19 MODERNA 0.25ML BOOSTER VACCINE 2021-06-22 00:00:00 Completed [facility] SARS-COV-2 COVID-19 MODERNA 0.25ML BOOSTER VACCINE 2021-06-22 00:00:00 Completed [facility] SARS-COV-2 COVID-19 MODERNA 0.25ML BOOSTER VACCINE 2021-06-22 00:00:00 Completed [facility] SARS-COV-2 COVID-19 MODERNA 0.25ML BOOSTER VACCINE 2021-06-22 00:00:00 Completed [facility] SARS-COV-2 COVID-19 MODERNA 0.25ML BOOSTER VACCINE 2021-06-22 00:00:00 Completed [facility] SARS-COV-2 COVID-19 MODERNA 0.25ML BOOSTER VACCINE 2021-06-22 00:00:00 Completed [facility] SARS-COV-2 COVID-19 MODERNA 0.25ML BOOSTER VACCINE 2021-06-22 00:00:00 Completed [facility] SARS-COV-2 COVID-19 MODERNA 0.25ML BOOSTER VACCINE 2021-06-22 00:00:00 Completed [facility] SARS-COV-2 COVID-19 MODERNA 0.25ML BOOSTER VACCINE 2021-06-22 00:00:00 Completed [facility] SARS-COV-2 COVID-19 MODERNA 0.25ML BOOSTER VACCINE 2021-06-22 00:00:00 Completed [facility] SARS-COV-2 COVID-19 MODERNA 0.25ML BOOSTER VACCINE 2021-06-22 00:00:00 Completed [facility] SARS-COV-2 COVID-19 MODERNA 0.25ML BOOSTER VACCINE 2021-06-22 00:00:00 Completed [facility] SARS-COV-2 COVID-19 MODERNA 0.25ML BOOSTER VACCINE 2021-06-22 00:00:00 Completed [facility] SARS-COV-2 COVID-19 MODERNA 0.25ML BOOSTER VACCINE 2021-06-22 00:00:00 Completed [facility] SARS-COV-2 COVID-19 MODERNA 0.25ML BOOSTER VACCINE 2021-06-22 00:00:00 Completed [facility] SARS-COV-2 COVID-19 MODERNA 0.25ML BOOSTER VACCINE 2021-06-22 00:00:00 Completed [facility] SARS-COV-2 COVID-19 MODERNA 0.25ML BOOSTER VACCINE 2021-06-22 00:00:00 Completed [facility] SARS-COV-2 COVID-19 MODERNA 0.25ML BOOSTER VACCINE 2021-06-22 00:00:00 Completed [facility] SARS-COV-2 COVID-19 MODERNA 0.25ML BOOSTER VACCINE 2021-06-22 00:00:00 Completed [facility] SARS-COV-2 COVID-19 MODERNA 0.25ML BOOSTER VACCINE 2021-06-22 00:00:00 Completed [facility] SARS-COV-2 COVID-19 MODERNA 0.25ML BOOSTER VACCINE 2021-06-22 00:00:00 Completed [facility] SARS-COV-2 COVID-19 MODERNA 0.25ML BOOSTER VACCINE 2021-06-22 00:00:00 Completed [facility] SARS-COV-2 COVID-19 MODERNA 0.25ML BOOSTER VACCINE 2021-06-22 00:00:00 Completed [facility] SARS-COV-2 COVID-19 MODERNA 0.25ML BOOSTER VACCINE 2021-06-22 00:00:00 Completed [facility] SARS-COV-2 COVID-19 MODERNA 0.25ML BOOSTER VACCINE 2021-06-22 00:00:00 Completed [facility] SARS-COV-2 COVID-19 MODERNA 0.25ML BOOSTER VACCINE 2021-06-22 00:00:00 Completed [facility] SARS-COV-2 COVID-19 MODERNA 0.25ML BOOSTER VACCINE 2021-06-22 00:00:00 Completed [facility] SARS-COV-2 COVID-19 MODERNA 0.25ML BOOSTER VACCINE 2021-06-22 00:00:00 Completed [facility] SARS-COV-2 COVID-19 MODERNA 0.25ML BOOSTER VACCINE 2021-06-22 00:00:00 Completed [facility] SARS-COV-2 COVID-19 MODERNA 0.25ML BOOSTER VACCINE 2021-06-22 00:00:00 Completed [facility] SARS-COV-2 COVID-19 MODERNA 0.25ML BOOSTER VACCINE 2021-06-22 00:00:00 Completed [facility] SARS-COV-2 COVID-19 MODERNA 0.25ML BOOSTER VACCINE 2021-06-22 00:00:00 Completed [facility] SARS-COV-2 COVID-19 MODERNA 0.25ML BOOSTER VACCINE 2021-06-22 00:00:00 Completed [facility] SARS-COV-2 COVID-19 MODERNA 0.25ML BOOSTER VACCINE 2021-06-22 00:00:00 Completed [facility] SARS-COV-2 COVID-19 MODERNA 0.25ML BOOSTER VACCINE 2021-06-22 00:00:00 Completed [facility] SARS-COV-2 COVID-19 MODERNA 0.25ML BOOSTER VACCINE 2021-06-22 00:00:00 Completed [facility] SARS-COV-2 COVID-19 MODERNA 0.25ML BOOSTER VACCINE 2021-06-22 00:00:00 Completed [facility] SARS-COV-2 COVID-19 MODERNA 0.25ML BOOSTER VACCINE 2021-06-22 00:00:00 Completed [facility] SARS-COV-2 COVID-19 MODERNA 0.25ML BOOSTER VACCINE 2021-06-22 00:00:00 Completed [facility] SARS-COV-2 COVID-19 MODERNA 0.25ML BOOSTER VACCINE 2021-06-22 00:00:00 Completed [facility] SARS-COV-2 COVID-19 MODERNA 0.25ML BOOSTER VACCINE 2021-06-22 00:00:00 Completed [facility] SARS-COV-2 COVID-19 MODERNA 0.25ML BOOSTER VACCINE 2021-06-22 00:00:00 Completed [facility] SARS-COV-2 COVID-19 MODERNA 0.25ML BOOSTER VACCINE 2021-06-22 00:00:00 Completed [facility] SARS-COV-2 COVID-19 MODERNA 0.25ML BOOSTER VACCINE 2021-06-22 00:00:00 Completed [facility] SARS-COV-2 COVID-19 MODERNA 0.25ML BOOSTER VACCINE 2021-06-22 00:00:00 Completed [facility] SARS-COV-2 COVID-19 MODERNA 0.25ML BOOSTER VACCINE 2021-06-22 00:00:00 Completed [facility] SARS-COV-2 COVID-19 MODERNA 0.25ML BOOSTER VACCINE 2021-06-22 00:00:00 Completed [facility] SARS-COV-2 COVID-19 MODERNA 0.25ML BOOSTER VACCINE 2021-06-22 00:00:00 Completed [facility] SARS-COV-2 COVID-19 MODERNA 0.25ML BOOSTER VACCINE 2021-06-22 00:00:00 Completed [facility] SARS-COV-2 COVID-19 MODERNA 0.25ML BOOSTER VACCINE 2021-06-22 00:00:00 Completed [facility] SARS-COV-2 COVID-19 MODERNA 0.25ML BOOSTER VACCINE 2021-06-22 00:00:00 Completed [facility] SARS-COV-2 COVID-19 MODERNA 0.25ML BOOSTER VACCINE 2021-06-22 00:00:00 Completed [facility] SARS-COV-2 COVID-19 MODERNA 0.25ML BOOSTER VACCINE 2021-06-22 00:00:00 Completed [facility] SARS-COV-2 COVID-19 MODERNA 0.25ML BOOSTER VACCINE 2021-06-22 00:00:00 Completed [facility] SARS-COV-2 COVID-19 MODERNA 0.25ML BOOSTER VACCINE 2021-06-22 00:00:00 Completed [facility] SARS-COV-2 COVID-19 MODERNA 0.25ML BOOSTER VACCINE 2021-06-22 00:00:00 Completed [facility] SARS-COV-2 COVID-19 MODERNA 0.25ML BOOSTER VACCINE 2021-06-22 00:00:00 Completed [facility] SARS-COV-2 COVID-19 MODERNA 0.25ML BOOSTER VACCINE 2021-06-22 00:00:00 Completed [facility] SARS-COV-2 COVID-19 MODERNA 0.25ML BOOSTER VACCINE 2021-06-22 00:00:00 Completed [facility] SARS-COV-2 COVID-19 MODERNA 0.25ML BOOSTER VACCINE 2021-06-22 00:00:00 Completed [facility] SARS-COV-2 COVID-19 MODERNA 0.25ML BOOSTER VACCINE 2021-06-22 00:00:00 Completed [facility] SARS-COV-2 COVID-19 MODERNA 12+ YRS VACCINE 2020-08-11 00:00:00 Completed [facility] SARS-COV-2 COVID-19 MODERNA 12+ YRS VACCINE 2020-08-11 00:00:00 Completed [facility] SARS-COV-2 COVID-19 MODERNA 12+ YRS VACCINE 2020-08-11 00:00:00 Completed [facility] SARS-COV-2 COVID-19 MODERNA 12+ YRS VACCINE 2020-08-11 00:00:00 Completed [facility] SARS-COV-2 COVID-19 MODERNA 12+ YRS VACCINE 2020-08-11 00:00:00 Completed [facility] SARS-COV-2 COVID-19 MODERNA 12+ YRS VACCINE 2020-08-11 00:00:00 Completed [facility] SARS-COV-2 COVID-19 MODERNA 12+ YRS VACCINE 2020-08-11 00:00:00 Completed [facility] SARS-COV-2 COVID-19 MODERNA 12+ YRS VACCINE 2020-08-11 00:00:00 Completed [facility] SARS-COV-2 COVID-19 MODERNA 12+ YRS VACCINE 2020-08-11 00:00:00 Completed [facility] SARS-COV-2 COVID-19 MODERNA 12+ YRS VACCINE 2020-08-11 00:00:00 Completed [facility] SARS-COV-2 COVID-19 MODERNA 12+ YRS VACCINE 2020-08-11 00:00:00 Completed [facility] SARS-COV-2 COVID-19 MODERNA 12+ YRS VACCINE 2020-08-11 00:00:00 Completed [facility] SARS-COV-2 COVID-19 MODERNA 12+ YRS VACCINE 2020-08-11 00:00:00 Completed [facility] SARS-COV-2 COVID-19 MODERNA 12+ YRS VACCINE 2020-08-11 00:00:00 Completed [facility] SARS-COV-2 COVID-19 MODERNA 12+ YRS VACCINE 2020-08-11 00:00:00 Completed [facility] SARS-COV-2 COVID-19 MODERNA 12+ YRS VACCINE 2020-08-11 00:00:00 Completed [facility] SARS-COV-2 COVID-19 MODERNA 12+ YRS VACCINE 2020-08-11 00:00:00 Completed [facility] SARS-COV-2 COVID-19 MODERNA 12+ YRS VACCINE 2020-08-11 00:00:00 Completed [facility] SARS-COV-2 COVID-19 MODERNA 12+ YRS VACCINE 2020-08-11 00:00:00 Completed [facility] SARS-COV-2 COVID-19 MODERNA 12+ YRS VACCINE 2020-08-11 00:00:00 Completed [facility] SARS-COV-2 COVID-19 MODERNA 12+ YRS VACCINE 2020-08-11 00:00:00 Completed [facility] SARS-COV-2 COVID-19 MODERNA 12+ YRS VACCINE 2020-08-11 00:00:00 Completed [facility] SARS-COV-2 COVID-19 MODERNA 12+ YRS VACCINE 2020-08-11 00:00:00 Completed [facility] SARS-COV-2 COVID-19 MODERNA 12+ YRS VACCINE 2020-08-11 00:00:00 Completed [facility] SARS-COV-2 COVID-19 MODERNA 12+ YRS VACCINE 2020-08-11 00:00:00 Completed [facility] SARS-COV-2 COVID-19 MODERNA 12+ YRS VACCINE 2020-08-11 00:00:00 Completed [facility] SARS-COV-2 COVID-19 MODERNA 12+ YRS VACCINE 2020-08-11 00:00:00 Completed [facility] SARS-COV-2 COVID-19 MODERNA 12+ YRS VACCINE 2020-08-11 00:00:00 Completed [facility] SARS-COV-2 COVID-19 MODERNA 12+ YRS VACCINE 2020-08-11 00:00:00 Completed [facility] SARS-COV-2 COVID-19 MODERNA 12+ YRS VACCINE 2020-08-11 00:00:00 Completed [facility] SARS-COV-2 COVID-19 MODERNA 12+ YRS VACCINE 2020-08-11 00:00:00 Completed [facility] SARS-COV-2 COVID-19 MODERNA 12+ YRS VACCINE 2020-08-11 00:00:00 Completed [facility] SARS-COV-2 COVID-19 MODERNA 12+ YRS VACCINE 2020-08-11 00:00:00 Completed [facility] SARS-COV-2 COVID-19 MODERNA 12+ YRS VACCINE 2020-08-11 00:00:00 Completed [facility] SARS-COV-2 COVID-19 MODERNA 12+ YRS VACCINE 2020-08-11 00:00:00 Completed [facility] SARS-COV-2 COVID-19 MODERNA 12+ YRS VACCINE 2020-08-11 00:00:00 Completed [facility] SARS-COV-2 COVID-19 MODERNA 12+ YRS VACCINE 2020-08-11 00:00:00 Completed [facility] SARS-COV-2 COVID-19 MODERNA 12+ YRS VACCINE 2020-08-11 00:00:00 Completed [facility] SARS-COV-2 COVID-19 MODERNA 12+ YRS VACCINE 2020-08-11 00:00:00 Completed [facility] SARS-COV-2 COVID-19 MODERNA 12+ YRS VACCINE 2020-08-11 00:00:00 Completed [facility] SARS-COV-2 COVID-19 MODERNA 12+ YRS VACCINE 2020-08-11 00:00:00 Completed [facility] SARS-COV-2 COVID-19 MODERNA 12+ YRS VACCINE 2020-08-11 00:00:00 Completed [facility] SARS-COV-2 COVID-19 MODERNA 12+ YRS VACCINE 2020-08-11 00:00:00 Completed [facility] SARS-COV-2 COVID-19 MODERNA 12+ YRS VACCINE 2020-08-11 00:00:00 Completed [facility] SARS-COV-2 COVID-19 MODERNA 12+ YRS VACCINE 2020-08-11 00:00:00 Completed [facility] SARS-COV-2 COVID-19 MODERNA 12+ YRS VACCINE 2020-08-11 00:00:00 Completed [facility] SARS-COV-2 COVID-19 MODERNA 12+ YRS VACCINE 2020-08-11 00:00:00 Completed [facility] SARS-COV-2 COVID-19 MODERNA 12+ YRS VACCINE 2020-08-11 00:00:00 Completed [facility] SARS-COV-2 COVID-19 MODERNA 12+ YRS VACCINE 2020-08-11 00:00:00 Completed [facility] SARS-COV-2 COVID-19 MODERNA 12+ YRS VACCINE 2020-08-11 00:00:00 Completed [facility] SARS-COV-2 COVID-19 MODERNA 12+ YRS VACCINE 2020-08-11 00:00:00 Completed [facility] SARS-COV-2 COVID-19 MODERNA 12+ YRS VACCINE 2020-08-11 00:00:00 Completed [facility] SARS-COV-2 COVID-19 MODERNA 12+ YRS VACCINE 2020-08-11 00:00:00 Completed [facility] SARS-COV-2 COVID-19 MODERNA 12+ YRS VACCINE 2020-08-11 00:00:00 Completed [facility] SARS-COV-2 COVID-19 MODERNA 12+ YRS VACCINE 2020-08-11 00:00:00 Completed [facility] SARS-COV-2 COVID-19 MODERNA 12+ YRS VACCINE 2020-08-11 00:00:00 Completed [facility] SARS-COV-2 COVID-19 MODERNA 12+ YRS VACCINE 2020-08-11 00:00:00 Completed [facility] SARS-COV-2 COVID-19 MODERNA 12+ YRS VACCINE 2020-08-11 00:00:00 Completed [facility] SARS-COV-2 COVID-19 MODERNA 12+ YRS VACCINE 2020-08-11 00:00:00 Completed [facility] SARS-COV-2 COVID-19 MODERNA 12+ YRS VACCINE 2020-08-11 00:00:00 Completed [facility] SARS-COV-2 COVID-19 MODERNA 12+ YRS VACCINE 2020-08-11 00:00:00 Completed [facility] SARS-COV-2 COVID-19 MODERNA 12+ YRS VACCINE 2020-08-11 00:00:00 Completed [facility] SARS-COV-2 COVID-19 MODERNA 12+ YRS VACCINE 2020-08-11 00:00:00 Completed [facility] SARS-COV-2 COVID-19 MODERNA 12+ YRS VACCINE 2020-08-11 00:00:00 Completed [facility] SARS-COV-2 COVID-19 MODERNA 12+ YRS VACCINE 2020-08-11 00:00:00 Completed [facility] SARS-COV-2 COVID-19 MODERNA 12+ YRS VACCINE 2020-08-11 00:00:00 Completed [facility] SARS-COV-2 COVID-19 MODERNA 12+ YRS VACCINE 2020-08-11 00:00:00 Completed [facility] SARS-COV-2 COVID-19 MODERNA 12+ YRS VACCINE 2020-08-11 00:00:00 Completed [facility] SARS-COV-2 COVID-19 MODERNA 12+ YRS VACCINE 2020-08-11 00:00:00 Completed [facility] SARS-COV-2 COVID-19 MODERNA 12+ YRS VACCINE 2020-08-11 00:00:00 Completed [facility] SARS-COV-2 COVID-19 MODERNA 12+ YRS VACCINE 2020-08-11 00:00:00 Completed [facility] SARS-COV-2 COVID-19 MODERNA 12+ YRS VACCINE 2020-08-11 00:00:00 Completed [facility] SARS-COV-2 COVID-19 MODERNA 12+ YRS VACCINE 2020-08-11 00:00:00 Completed [facility] SARS-COV-2 COVID-19 MODERNA 12+ YRS VACCINE 2020-07-14 00:00:00 Completed [facility] SARS-COV-2 COVID-19 MODERNA 12+ YRS VACCINE 2020-07-14 00:00:00 Completed [facility] SARS-COV-2 COVID-19 MODERNA 12+ YRS VACCINE 2020-07-14 00:00:00 Completed [facility] SARS-COV-2 COVID-19 MODERNA 12+ YRS VACCINE 2020-07-14 00:00:00 Completed [facility] SARS-COV-2 COVID-19 MODERNA 12+ YRS VACCINE 2020-07-14 00:00:00 Completed [facility] SARS-COV-2 COVID-19 MODERNA 12+ YRS VACCINE 2020-07-14 00:00:00 Completed [facility] SARS-COV-2 COVID-19 MODERNA 12+ YRS VACCINE 2020-07-14 00:00:00 Completed [facility] SARS-COV-2 COVID-19 MODERNA 12+ YRS VACCINE 2020-07-14 00:00:00 Completed [facility] SARS-COV-2 COVID-19 MODERNA 12+ YRS VACCINE 2020-07-14 00:00:00 Completed [facility] SARS-COV-2 COVID-19 MODERNA 12+ YRS VACCINE 2020-07-14 00:00:00 Completed [facility] SARS-COV-2 COVID-19 MODERNA 12+ YRS VACCINE 2020-07-14 00:00:00 Completed [facility] SARS-COV-2 COVID-19 MODERNA 12+ YRS VACCINE 2020-07-14 00:00:00 Completed [facility] SARS-COV-2 COVID-19 MODERNA 12+ YRS VACCINE 2020-07-14 00:00:00 Completed [facility] SARS-COV-2 COVID-19 MODERNA 12+ YRS VACCINE 2020-07-14 00:00:00 Completed [facility] SARS-COV-2 COVID-19 MODERNA 12+ YRS VACCINE 2020-07-14 00:00:00 Completed [facility] SARS-COV-2 COVID-19 MODERNA 12+ YRS VACCINE 2020-07-14 00:00:00 Completed [facility] SARS-COV-2 COVID-19 MODERNA 12+ YRS VACCINE 2020-07-14 00:00:00 Completed [facility] SARS-COV-2 COVID-19 MODERNA 12+ YRS VACCINE 2020-07-14 00:00:00 Completed [facility] SARS-COV-2 COVID-19 MODERNA 12+ YRS VACCINE 2020-07-14 00:00:00 Completed [facility] SARS-COV-2 COVID-19 MODERNA 12+ YRS VACCINE 2020-07-14 00:00:00 Completed [facility] SARS-COV-2 COVID-19 MODERNA 12+ YRS VACCINE 2020-07-14 00:00:00 Completed [facility] SARS-COV-2 COVID-19 MODERNA 12+ YRS VACCINE 2020-07-14 00:00:00 Completed [facility] SARS-COV-2 COVID-19 MODERNA 12+ YRS VACCINE 2020-07-14 00:00:00 Completed [facility] SARS-COV-2 COVID-19 MODERNA 12+ YRS VACCINE 2020-07-14 00:00:00 Completed [facility] SARS-COV-2 COVID-19 MODERNA 12+ YRS VACCINE 2020-07-14 00:00:00 Completed [facility] SARS-COV-2 COVID-19 MODERNA 12+ YRS VACCINE 2020-07-14 00:00:00 Completed [facility] SARS-COV-2 COVID-19 MODERNA 12+ YRS VACCINE 2020-07-14 00:00:00 Completed [facility] SARS-COV-2 COVID-19 MODERNA 12+ YRS VACCINE 2020-07-14 00:00:00 Completed [facility] SARS-COV-2 COVID-19 MODERNA 12+ YRS VACCINE 2020-07-14 00:00:00 Completed [facility] SARS-COV-2 COVID-19 MODERNA 12+ YRS VACCINE 2020-07-14 00:00:00 Completed [facility] SARS-COV-2 COVID-19 MODERNA 12+ YRS VACCINE 2020-07-14 00:00:00 Completed [facility] SARS-COV-2 COVID-19 MODERNA 12+ YRS VACCINE 2020-07-14 00:00:00 Completed [facility] SARS-COV-2 COVID-19 MODERNA 12+ YRS VACCINE 2020-07-14 00:00:00 Completed [facility] SARS-COV-2 COVID-19 MODERNA 12+ YRS VACCINE 2020-07-14 00:00:00 Completed [facility] SARS-COV-2 COVID-19 MODERNA 12+ YRS VACCINE 2020-07-14 00:00:00 Completed [facility] SARS-COV-2 COVID-19 MODERNA 12+ YRS VACCINE 2020-07-14 00:00:00 Completed [facility] SARS-COV-2 COVID-19 MODERNA 12+ YRS VACCINE 2020-07-14 00:00:00 Completed [facility] SARS-COV-2 COVID-19 MODERNA 12+ YRS VACCINE 2020-07-14 00:00:00 Completed [facility] SARS-COV-2 COVID-19 MODERNA 12+ YRS VACCINE 2020-07-14 00:00:00 Completed [facility] SARS-COV-2 COVID-19 MODERNA 12+ YRS VACCINE 2020-07-14 00:00:00 Completed [facility] SARS-COV-2 COVID-19 MODERNA 12+ YRS VACCINE 2020-07-14 00:00:00 Completed [facility] SARS-COV-2 COVID-19 MODERNA 12+ YRS VACCINE 2020-07-14 00:00:00 Completed [facility] SARS-COV-2 COVID-19 MODERNA 12+ YRS VACCINE 2020-07-14 00:00:00 Completed [facility] SARS-COV-2 COVID-19 MODERNA 12+ YRS VACCINE 2020-07-14 00:00:00 Completed [facility] SARS-COV-2 COVID-19 MODERNA 12+ YRS VACCINE 2020-07-14 00:00:00 Completed [facility] SARS-COV-2 COVID-19 MODERNA 12+ YRS VACCINE 2020-07-14 00:00:00 Completed [facility] SARS-COV-2 COVID-19 MODERNA 12+ YRS VACCINE 2020-07-14 00:00:00 Completed [facility] SARS-COV-2 COVID-19 MODERNA 12+ YRS VACCINE 2020-07-14 00:00:00 Completed [facility] SARS-COV-2 COVID-19 MODERNA 12+ YRS VACCINE 2020-07-14 00:00:00 Completed [facility] SARS-COV-2 COVID-19 MODERNA 12+ YRS VACCINE 2020-07-14 00:00:00 Completed [facility] SARS-COV-2 COVID-19 MODERNA 12+ YRS VACCINE 2020-07-14 00:00:00 Completed [facility] SARS-COV-2 COVID-19 MODERNA 12+ YRS VACCINE 2020-07-14 00:00:00 Completed [facility] SARS-COV-2 COVID-19 MODERNA 12+ YRS VACCINE 2020-07-14 00:00:00 Completed [facility] SARS-COV-2 COVID-19 MODERNA 12+ YRS VACCINE 2020-07-14 00:00:00 Completed [facility] SARS-COV-2 COVID-19 MODERNA 12+ YRS VACCINE 2020-07-14 00:00:00 Completed [facility] SARS-COV-2 COVID-19 MODERNA 12+ YRS VACCINE 2020-07-14 00:00:00 Completed [facility] SARS-COV-2 COVID-19 MODERNA 12+ YRS VACCINE 2020-07-14 00:00:00 Completed [facility] SARS-COV-2 COVID-19 MODERNA 12+ YRS VACCINE 2020-07-14 00:00:00 Completed [facility] SARS-COV-2 COVID-19 MODERNA 12+ YRS VACCINE 2020-07-14 00:00:00 Completed [facility] SARS-COV-2 COVID-19 MODERNA 12+ YRS VACCINE 2020-07-14 00:00:00 Completed [facility] SARS-COV-2 COVID-19 MODERNA 12+ YRS VACCINE 2020-07-14 00:00:00 Completed [facility] SARS-COV-2 COVID-19 MODERNA 12+ YRS VACCINE 2020-07-14 00:00:00 Completed [facility] SARS-COV-2 COVID-19 MODERNA 12+ YRS VACCINE 2020-07-14 00:00:00 Completed [facility] SARS-COV-2 COVID-19 MODERNA 12+ YRS VACCINE 2020-07-14 00:00:00 Completed [facility] SARS-COV-2 COVID-19 MODERNA 12+ YRS VACCINE 2020-07-14 00:00:00 Completed [facility] SARS-COV-2 COVID-19 MODERNA 12+ YRS VACCINE 2020-07-14 00:00:00 Completed [facility] SARS-COV-2 COVID-19 MODERNA 12+ YRS VACCINE 2020-07-14 00:00:00 Completed [facility] SARS-COV-2 COVID-19 MODERNA 12+ YRS VACCINE 2020-07-14 00:00:00 Completed [facility] SARS-COV-2 COVID-19 MODERNA 12+ YRS VACCINE 2020-07-14 00:00:00 Completed [facility] SARS-COV-2 COVID-19 MODERNA 12+ YRS VACCINE 2020-07-14 00:00:00 Completed [facility] SARS-COV-2 COVID-19 MODERNA 12+ YRS VACCINE 2020-07-14 00:00:00 Completed [facility] SARS-COV-2 COVID-19 MODERNA 12+ YRS VACCINE 2020-07-14 00:00:00 Completed [facility] SARS-COV-2 COVID-19 MODERNA 12+ YRS VACCINE 2020-07-14 00:00:00 Completed [facility] Pneumococcal Polysaccharide, PPSV23 (PNEUMOVAX) 2018-08-05 00:00:00 Completed [facility] Pneumococcal Polysaccharide, PPSV23 (PNEUMOVAX) 2018-08-05 00:00:00 Completed [facility] Pneumococcal Polysaccharide, PPSV23 (PNEUMOVAX) 2018-08-05 00:00:00 Completed [facility] Pneumococcal Polysaccharide, PPSV23 (PNEUMOVAX) 2018-08-05 00:00:00 Completed [facility] Pneumococcal Polysaccharide, PPSV23 (PNEUMOVAX) 2018-08-05 00:00:00 Completed [facility] Pneumococcal Polysaccharide, PPSV23 (PNEUMOVAX) 2018-08-05 00:00:00 Completed [facility] Pneumococcal Polysaccharide, PPSV23 (PNEUMOVAX) 2018-08-05 00:00:00 Completed [facility] Pneumococcal Polysaccharide, PPSV23 (PNEUMOVAX) 2018-08-05 00:00:00 Completed [facility] Pneumococcal Polysaccharide, PPSV23 (PNEUMOVAX) 2018-08-05 00:00:00 Completed [facility] Pneumococcal Polysaccharide, PPSV23 (PNEUMOVAX) 2018-08-05 00:00:00 Completed [facility] Pneumococcal Polysaccharide, PPSV23 (PNEUMOVAX) 2018-08-05 00:00:00 Completed [facility] Pneumococcal Polysaccharide, PPSV23 (PNEUMOVAX) 2018-08-05 00:00:00 Completed [facility] Pneumococcal Polysaccharide, PPSV23 (PNEUMOVAX) 2018-08-05 00:00:00 Completed [facility] Pneumococcal Polysaccharide, PPSV23 (PNEUMOVAX) 2018-08-05 00:00:00 Completed [facility] Pneumococcal Polysaccharide, PPSV23 (PNEUMOVAX) 2018-08-05 00:00:00 Completed [facility] Pneumococcal Polysaccharide, PPSV23 (PNEUMOVAX) 2018-08-05 00:00:00 Completed [facility] Pneumococcal Polysaccharide, PPSV23 (PNEUMOVAX) 2018-08-05 00:00:00 Completed [facility] Pneumococcal Polysaccharide, PPSV23 (PNEUMOVAX) 2018-08-05 00:00:00 Completed [facility] Pneumococcal Polysaccharide, PPSV23 (PNEUMOVAX) 2018-08-05 00:00:00 Completed [facility] Pneumococcal Polysaccharide, PPSV23 (PNEUMOVAX) 2018-08-05 00:00:00 Completed [facility] Pneumococcal Polysaccharide, PPSV23 (PNEUMOVAX) 2018-08-05 00:00:00 Completed [facility] Pneumococcal Polysaccharide, PPSV23 (PNEUMOVAX) 2018-08-05 00:00:00 Completed [facility] Pneumococcal Polysaccharide, PPSV23 (PNEUMOVAX) 2018-08-05 00:00:00 Completed [facility] Pneumococcal Polysaccharide, PPSV23 (PNEUMOVAX) 2018-08-05 00:00:00 Completed [facility] Pneumococcal Polysaccharide, PPSV23 (PNEUMOVAX) 2018-08-05 00:00:00 Completed [facility] Pneumococcal Polysaccharide, PPSV23 (PNEUMOVAX) 2018-08-05 00:00:00 Completed [facility] Pneumococcal Polysaccharide, PPSV23 (PNEUMOVAX) 2018-08-05 00:00:00 Completed [facility] Pneumococcal Polysaccharide, PPSV23 (PNEUMOVAX) 2018-08-05 00:00:00 Completed [facility] Pneumococcal Polysaccharide, PPSV23 (PNEUMOVAX) 2018-08-05 00:00:00 Completed [facility] Pneumococcal Polysaccharide, PPSV23 (PNEUMOVAX) 2018-08-05 00:00:00 Completed [facility] Pneumococcal Polysaccharide, PPSV23 (PNEUMOVAX) 2018-08-05 00:00:00 Completed [facility] Pneumococcal Polysaccharide, PPSV23 (PNEUMOVAX) 2018-08-05 00:00:00 Completed [facility] Pneumococcal Polysaccharide, PPSV23 (PNEUMOVAX) 2018-08-05 00:00:00 Completed [facility] Pneumococcal Polysaccharide, PPSV23 (PNEUMOVAX) 2018-08-05 00:00:00 Completed [facility] Pneumococcal Polysaccharide, PPSV23 (PNEUMOVAX) 2018-08-05 00:00:00 Completed [facility] Pneumococcal Polysaccharide, PPSV23 (PNEUMOVAX) 2018-08-05 00:00:00 Completed [facility] Pneumococcal Polysaccharide, PPSV23 (PNEUMOVAX) 2018-08-05 00:00:00 Completed [facility] Pneumococcal Polysaccharide, PPSV23 (PNEUMOVAX) 2018-08-05 00:00:00 Completed [facility] Pneumococcal Polysaccharide, PPSV23 (PNEUMOVAX) 2018-08-05 00:00:00 Completed [facility] Pneumococcal Polysaccharide, PPSV23 (PNEUMOVAX) 2018-08-05 00:00:00 Completed [facility] Pneumococcal Polysaccharide, PPSV23 (PNEUMOVAX) 2018-08-05 00:00:00 Completed [facility] Pneumococcal Polysaccharide, PPSV23 (PNEUMOVAX) 2018-08-05 00:00:00 Completed [facility] Pneumococcal Polysaccharide, PPSV23 (PNEUMOVAX) 2018-08-05 00:00:00 Completed [facility] Pneumococcal Polysaccharide, PPSV23 (PNEUMOVAX) 2018-08-05 00:00:00 Completed [facility] Pneumococcal Polysaccharide, PPSV23 (PNEUMOVAX) 2018-08-05 00:00:00 Completed [facility] Pneumococcal Polysaccharide, PPSV23 (PNEUMOVAX) 2018-08-05 00:00:00 Completed [facility] Pneumococcal Polysaccharide, PPSV23 (PNEUMOVAX) 2018-08-05 00:00:00 Completed [facility] Pneumococcal Polysaccharide, PPSV23 (PNEUMOVAX) 2018-08-05 00:00:00 Completed [facility] Pneumococcal Polysaccharide, PPSV23 (PNEUMOVAX) 2018-08-05 00:00:00 Completed [facility] Pneumococcal Polysaccharide, PPSV23 (PNEUMOVAX) 2018-08-05 00:00:00 Completed [facility] Pneumococcal Polysaccharide, PPSV23 (PNEUMOVAX) 2018-08-05 00:00:00 Completed [facility] Pneumococcal Polysaccharide, PPSV23 (PNEUMOVAX) 2018-08-05 00:00:00 Completed [facility] Pneumococcal Polysaccharide, PPSV23 (PNEUMOVAX) 2018-08-05 00:00:00 Completed [facility] Pneumococcal Polysaccharide, PPSV23 (PNEUMOVAX) 2018-08-05 00:00:00 Completed [facility] Pneumococcal Polysaccharide, PPSV23 (PNEUMOVAX) 2018-08-05 00:00:00 Completed [facility] Pneumococcal Polysaccharide, PPSV23 (PNEUMOVAX) 2018-08-05 00:00:00 Completed [facility] Pneumococcal Polysaccharide, PPSV23 (PNEUMOVAX) 2018-08-05 00:00:00 Completed [facility] Pneumococcal Polysaccharide, PPSV23 (PNEUMOVAX) 2018-08-05 00:00:00 Completed [facility] Pneumococcal Polysaccharide, PPSV23 (PNEUMOVAX) 2018-08-05 00:00:00 Completed [facility] Pneumococcal Polysaccharide, PPSV23 (PNEUMOVAX) 2018-08-05 00:00:00 Completed [facility] Pneumococcal Polysaccharide, PPSV23 (PNEUMOVAX) 2018-08-05 00:00:00 Completed [facility] Pneumococcal Polysaccharide, PPSV23 (PNEUMOVAX) 2018-08-05 00:00:00 Completed [facility] Pneumococcal Polysaccharide, PPSV23 (PNEUMOVAX) 2018-08-05 00:00:00 Completed [facility] Pneumococcal Polysaccharide, PPSV23 (PNEUMOVAX) 2018-08-05 00:00:00 Completed [facility] Pneumococcal Polysaccharide, PPSV23 (PNEUMOVAX) 2018-08-05 00:00:00 Completed [facility] Pneumococcal Polysaccharide, PPSV23 (PNEUMOVAX) 2018-08-05 00:00:00 Completed [facility] Pneumococcal Polysaccharide, PPSV23 (PNEUMOVAX) 2018-08-05 00:00:00 Completed [facility] Pneumococcal Polysaccharide, PPSV23 (PNEUMOVAX) 2018-08-05 00:00:00 Completed [facility] Pneumococcal Polysaccharide, PPSV23 (PNEUMOVAX) 2018-08-05 00:00:00 Completed [facility] Pneumococcal Polysaccharide, PPSV23 (PNEUMOVAX) 2018-08-05 00:00:00 Completed [facility] Pneumococcal Polysaccharide, PPSV23 (PNEUMOVAX) 2018-08-05 00:00:00 Completed [facility] Pneumococcal Polysaccharide, PPSV23 (PNEUMOVAX) 2018-08-05 00:00:00 Completed Pneumococcal Polysaccharide, PPSV23 (PNEUMOVAX) 2018-08-05 00:00:00 Completed Pneumococcal Polysaccharide, PPSV23 (PNEUMOVAX) Unknown Completed [facility] SARS-COV-2 COVID-19 MODERNA 12+ YRS VACCINE Unknown Completed [facility] SARS-COV-2 COVID-19 VACCINE 12 YRS+, BIVALENT 0.5ML, IM, (MODERNA-BLUE TOP) Unknown Completed [facility] Pneumococcal Polysaccharide, PPSV23 (PNEUMOVAX) Unknown Completed [facility] SARS-COV-2 COVID-19 MODERNA 12+ YRS VACCINE Unknown Completed [facility] SARS-COV-2 COVID-19 VACCINE 12 YRS+, BIVALENT 0.5ML, IM, (MODERNA-BLUE TOP) Unknown Completed [facility] Pneumococcal Polysaccharide, PPSV23 (PNEUMOVAX) Unknown Completed [facility] SARS-COV-2 COVID-19 MODERNA 12+ YRS VACCINE Unknown Completed [facility] SARS-COV-2 COVID-19 VACCINE 12 YRS+, BIVALENT 0.5ML, IM, (MODERNA-BLUE TOP) Unknown Completed [facility] Pneumococcal Polysaccharide, PPSV23 (PNEUMOVAX) Unknown Completed [facility] SARS-COV-2 COVID-19 MODERNA 12+ YRS VACCINE Unknown Completed [facility] SARS-COV-2 COVID-19 VACCINE 12 YRS+, BIVALENT 0.5ML, IM, (MODERNA-BLUE TOP) Unknown Completed [facility] Pneumococcal Polysaccharide, PPSV23 (PNEUMOVAX) Unknown Completed [facility] SARS-COV-2 COVID-19 MODERNA 12+ YRS VACCINE Unknown Completed [facility] SARS-COV-2 COVID-19 VACCINE 12 YRS+, BIVALENT 0.5ML, IM, (MODERNA-BLUE TOP) Unknown Completed [facility] Pneumococcal Polysaccharide, PPSV23 (PNEUMOVAX) Unknown Completed [facility] SARS-COV-2 COVID-19 MODERNA 12+ YRS VACCINE Unknown Completed [facility] SARS-COV-2 COVID-19 VACCINE 12 YRS+, BIVALENT 0.5ML, IM, (MODERNA-BLUE TOP) Unknown Completed [facility] Pneumococcal Polysaccharide, PPSV23 (PNEUMOVAX) Unknown Completed [facility] SARS-COV-2 COVID-19 MODERNA 12+ YRS VACCINE Unknown Completed [facility] SARS-COV-2 COVID-19 VACCINE 12 YRS+, BIVALENT 0.5ML, IM, (MODERNA-BLUE TOP) Unknown Completed [facility] Pneumococcal Polysaccharide, PPSV23 (PNEUMOVAX) Unknown Completed [facility] SARS-COV-2 COVID-19 MODERNA 12+ YRS VACCINE Unknown Completed [facility] SARS-COV-2 COVID-19 VACCINE 12 YRS+, BIVALENT 0.5ML, IM, (MODERNA-BLUE TOP) Unknown Completed [facility] Pneumococcal Polysaccharide, PPSV23 (PNEUMOVAX) Unknown Completed [facility] SARS-COV-2 COVID-19 MODERNA 12+ YRS VACCINE Unknown Completed [facility] SARS-COV-2 COVID-19 VACCINE 12 YRS+, BIVALENT 0.5ML, IM, (MODERNA-BLUE TOP) Unknown Completed [facility] Pneumococcal Polysaccharide, PPSV23 (PNEUMOVAX) Unknown Completed [facility] SARS-COV-2 COVID-19 MODERNA 12+ YRS VACCINE Unknown Completed [facility] SARS-COV-2 COVID-19 VACCINE 12 YRS+, BIVALENT 0.5ML, IM, (MODERNA-BLUE TOP) Unknown Completed [facility] Pneumococcal Polysaccharide, PPSV23 (PNEUMOVAX) Unknown Completed [facility] SARS-COV-2 COVID-19 MODERNA 12+ YRS VACCINE Unknown Completed [facility] SARS-COV-2 COVID-19 VACCINE 12 YRS+, BIVALENT 0.5ML, IM, (MODERNA-BLUE TOP) Unknown Completed [facility] Pneumococcal Polysaccharide, PPSV23 (PNEUMOVAX) Unknown Completed [facility] SARS-COV-2 COVID-19 MODERNA 12+ YRS VACCINE Unknown Completed [facility] SARS-COV-2 COVID-19 VACCINE 12 YRS+, BIVALENT 0.5ML, IM, (MODERNA-BLUE TOP) Unknown Completed [facility] Pneumococcal Polysaccharide, PPSV23 (PNEUMOVAX) Unknown Completed [facility] SARS-COV-2 COVID-19 MODERNA 12+ YRS VACCINE Unknown Completed [facility] SARS-COV-2 COVID-19 VACCINE 12 YRS+, BIVALENT 0.5ML, IM, (MODERNA-BLUE TOP) Unknown Completed [facility] Pneumococcal Polysaccharide, PPSV23 (PNEUMOVAX) Unknown Completed [facility] SARS-COV-2 COVID-19 MODERNA 12+ YRS VACCINE Unknown Completed [facility] SARS-COV-2 COVID-19 VACCINE 12 YRS+, BIVALENT 0.5ML, IM, (MODERNA-BLUE TOP) Unknown Completed [facility] Pneumococcal Polysaccharide, PPSV23 (PNEUMOVAX) Unknown Completed [facility] SARS-COV-2 COVID-19 MODERNA 12+ YRS VACCINE Unknown Completed [facility] SARS-COV-2 COVID-19 VACCINE 12 YRS+, BIVALENT 0.5ML, IM, (MODERNA-BLUE TOP) Unknown Completed [facility] Pneumococcal Polysaccharide, PPSV23 (PNEUMOVAX) Unknown Completed [facility] [facility] SARS-COV-2 COVID-19 MODERNA 12+ YRS VACCINE Unknown Completed [facility] SARS-COV-2 COVID-19 VACCINE 12 YRS+, BIVALENT 0.5ML, IM, (MODERNA-BLUE TOP) Unknown Completed [facility] Pneumococcal Polysaccharide, PPSV23 (PNEUMOVAX) Unknown Completed [facility] SARS-COV-2 COVID-19 MODERNA 12+ YRS VACCINE Unknown Completed [facility] SARS-COV-2 COVID-19 VACCINE 12 YRS+, BIVALENT 0.5ML, IM, (MODERNA-BLUE TOP) Unknown Completed [facility] Pneumococcal Polysaccharide, PPSV23 (PNEUMOVAX) Unknown Completed [facility] SARS-COV-2 COVID-19 MODERNA 12+ YRS VACCINE Unknown Completed [facility] SARS-COV-2 COVID-19 VACCINE 12 YRS+, BIVALENT 0.5ML, IM, (MODERNA-BLUE TOP) Unknown Completed [facility] Pneumococcal Polysaccharide, PPSV23 (PNEUMOVAX) Unknown Completed [facility] SARS-COV-2 COVID-19 MODERNA 12+ YRS VACCINE Unknown Completed [facility] SARS-COV-2 COVID-19 VACCINE 12 YRS+, BIVALENT 0.5ML, IM, (MODERNA-BLUE TOP) Unknown Completed [facility] Pneumococcal Polysaccharide, PPSV23 (PNEUMOVAX) Unknown Completed [facility] SARS-COV-2 COVID-19 MODERNA 12+ YRS VACCINE Unknown Completed [facility] SARS-COV-2 COVID-19 MODERNA 0.25ML BOOSTER VACCINE Unknown Completed [facility] SARS-COV-2 COVID-19 VACCINE 12 YRS+, BIVALENT 0.5ML, IM, (MODERNA-BLUE TOP) Unknown Completed [facility] Pneumococcal Polysaccharide, PPSV23 (PNEUMOVAX) Unknown Completed [facility] SARS-COV-2 COVID-19 MODERNA 12+ YRS VACCINE Unknown Completed [facility] SARS-COV-2 COVID-19 MODERNA 0.25ML BOOSTER VACCINE Unknown Completed [facility] SARS-COV-2 COVID-19 VACCINE 12 YRS+, BIVALENT 0.5ML, IM, (MODERNA-BLUE TOP) Unknown Completed [facility] Pneumococcal Polysaccharide, PPSV23 (PNEUMOVAX) Unknown Completed [facility] SARS-COV-2 COVID-19 MODERNA 12+ YRS VACCINE Unknown Completed [facility] SARS-COV-2 COVID-19 VACCINE 12 YRS+, BIVALENT 0.5ML, IM, (MODERNA-BLUE TOP) Unknown Completed [facility] Pneumococcal Polysaccharide, PPSV23 (PNEUMOVAX) Unknown Completed [facility] SARS-COV-2 COVID-19 MODERNA 12+ YRS VACCINE Unknown Completed [facility] SARS-COV-2 COVID-19 VACCINE 12 YRS+, BIVALENT 0.5ML, IM, (MODERNA-BLUE TOP) Unknown Completed [facility] Pneumococcal Polysaccharide, PPSV23 (PNEUMOVAX) Unknown Completed [facility] SARS-COV-2 COVID-19 MODERNA 12+ YRS VACCINE Unknown Completed [facility] SARS-COV-2 COVID-19 VACCINE 12 YRS+, BIVALENT 0.5ML, IM, (MODERNA-BLUE TOP) Unknown Completed [facility] Pneumococcal Polysaccharide, PPSV23 (PNEUMOVAX) Unknown Completed [facility] SARS-COV-2 COVID-19 MODERNA 12+ YRS VACCINE Unknown Completed [facility] SARS-COV-2 COVID-19 VACCINE 12 YRS+, BIVALENT 0.5ML, IM, (MODERNA-BLUE TOP) Unknown Completed [facility] Pneumococcal Polysaccharide, PPSV23 (PNEUMOVAX) Unknown Completed [facility] SARS-COV-2 COVID-19 MODERNA 12+ YRS VACCINE Unknown Completed [facility] SARS-COV-2 COVID-19 VACCINE 12 YRS+, BIVALENT 0.5ML, IM, (MODERNA-BLUE TOP) Unknown Completed [facility] Pneumococcal Polysaccharide, PPSV23 (PNEUMOVAX) Unknown Completed [facility] SARS-COV-2 COVID-19 MODERNA 12+ YRS VACCINE Unknown Completed [facility] SARS-COV-2 COVID-19 VACCINE 12 YRS+, BIVALENT 0.5ML, IM, (MODERNA-BLUE TOP) Unknown Completed [facility] Pneumococcal Polysaccharide, PPSV23 (PNEUMOVAX) Unknown Completed [facility] SARS-COV-2 COVID-19 MODERNA 12+ YRS VACCINE Unknown Completed [facility] SARS-COV-2 COVID-19 VACCINE 12 YRS+, BIVALENT 0.5ML, IM, (MODERNA-BLUE TOP) Unknown Completed [facility] Pneumococcal Polysaccharide, PPSV23 (PNEUMOVAX) Unknown Completed [facility] SARS-COV-2 COVID-19 VACCINE 12 YRS+, BIVALENT 0.5ML, IM, (MODERNA-BLUE TOP) Unknown Completed [facility] SARS-COV-2 COVID-19 MODERNA 12+ YRS VACCINE Unknown Completed [facility] SARS-COV-2 COVID-19 MODERNA 0.25ML BOOSTER VACCINE Unknown Completed [facility] SARS-COV-2 COVID-19 MODERNA 0.25ML BOOSTER VACCINE Unknown Completed [facility] Pneumococcal Polysaccharide, PPSV23 (PNEUMOVAX) Unknown Completed [facility] SARS-COV-2 COVID-19 MODERNA 12+ YRS VACCINE Unknown Completed [facility] SARS-COV-2 COVID-19 VACCINE 12 YRS+, BIVALENT 0.5ML, IM, (MODERNA-BLUE TOP) Unknown Completed [facility] Pneumococcal Polysaccharide, PPSV23 (PNEUMOVAX) Unknown Completed [facility] SARS-COV-2 COVID-19 MODERNA 12+ YRS VACCINE Unknown Completed [facility] SARS-COV-2 COVID-19 VACCINE 12 YRS+, BIVALENT 0.5ML, IM, (MODERNA-BLUE TOP) Unknown Completed [facility] Pneumococcal Polysaccharide, PPSV23 (PNEUMOVAX) Unknown Completed [facility] SARS-COV-2 COVID-19 MODERNA 12+ YRS VACCINE Unknown Completed [facility] SARS-COV-2 COVID-19 VACCINE 12 YRS+, BIVALENT 0.5ML, IM, (MODERNA-BLUE TOP) Unknown Completed [facility] Pneumococcal Polysaccharide, PPSV23 (PNEUMOVAX) Unknown Completed [facility] SARS-COV-2 COVID-19 MODERNA 12+ YRS VACCINE Unknown Completed [facility] SARS-COV-2 COVID-19 VACCINE 12 YRS+, BIVALENT 0.5ML, IM, (MODERNA-BLUE TOP) Unknown Completed [facility] Pneumococcal Polysaccharide, PPSV23 (PNEUMOVAX) Unknown Completed [facility] SARS-COV-2 COVID-19 MODERNA 12+ YRS VACCINE Unknown Completed [facility] SARS-COV-2 COVID-19 VACCINE 12 YRS+, BIVALENT 0.5ML, IM, (MODERNA-BLUE TOP) Unknown Completed [facility] Pneumococcal Polysaccharide, PPSV23 (PNEUMOVAX) Unknown Completed [facility] SARS-COV-2 COVID-19 MODERNA 12+ YRS VACCINE Unknown Completed [facility] SARS-COV-2 COVID-19 VACCINE 12 YRS+, BIVALENT 0.5ML, IM, (MODERNA-BLUE TOP) Unknown Completed [facility] Pneumococcal Polysaccharide, PPSV23 (PNEUMOVAX) Unknown Completed [facility] SARS-COV-2 COVID-19 MODERNA 12+ YRS VACCINE Unknown Completed [facility] SARS-COV-2 COVID-19 VACCINE 12 YRS+, BIVALENT 0.5ML, IM, (MODERNA-BLUE TOP) Unknown Completed [facility] Pneumococcal Polysaccharide, PPSV23 (PNEUMOVAX) Unknown Completed [facility] SARS-COV-2 COVID-19 MODERNA 12+ YRS VACCINE Unknown Completed [facility] SARS-COV-2 COVID-19 VACCINE 12 YRS+, BIVALENT 0.5ML, IM, (MODERNA-BLUE TOP) Unknown Completed [facility] Pneumococcal Polysaccharide, PPSV23 (PNEUMOVAX) Unknown Completed [facility] SARS-COV-2 COVID-19 MODERNA 12+ YRS VACCINE Unknown Completed [facility] SARS-COV-2 COVID-19 VACCINE 12 YRS+, BIVALENT 0.5ML, IM, (MODERNA-BLUE TOP) Unknown Completed [facility] Pneumococcal Polysaccharide, PPSV23 (PNEUMOVAX) Unknown Completed [facility] SARS-COV-2 COVID-19 MODERNA 12+ YRS VACCINE Unknown Completed [facility] SARS-COV-2 COVID-19 VACCINE 12 YRS+, BIVALENT 0.5ML, IM, (MODERNA-BLUE TOP) Unknown Completed [facility] Pneumococcal Polysaccharide, PPSV23 (PNEUMOVAX) Unknown Completed [facility] SARS-COV-2 COVID-19 MODERNA 12+ YRS VACCINE Unknown Completed [facility] SARS-COV-2 COVID-19 VACCINE 12 YRS+, BIVALENT 0.5ML, IM, (MODERNA-BLUE TOP) Unknown Completed [facility] Pneumococcal Polysaccharide, PPSV23 (PNEUMOVAX) Unknown Completed [facility] SARS-COV-2 COVID-19 MODERNA 12+ YRS VACCINE Unknown Completed [facility] SARS-COV-2 COVID-19 VACCINE 12 YRS+, BIVALENT 0.5ML, IM, (MODERNA-BLUE TOP) Unknown Completed [facility] Pneumococcal Polysaccharide, PPSV23 (PNEUMOVAX) Unknown Completed [facility] SARS-COV-2 COVID-19 MODERNA 12+ YRS VACCINE Unknown Completed [facility] SARS-COV-2 COVID-19 VACCINE 12 YRS+, BIVALENT 0.5ML, IM, (MODERNA-BLUE TOP) Unknown Completed [facility] Pneumococcal Polysaccharide, PPSV23 (PNEUMOVAX) Unknown Completed [facility] SARS-COV-2 COVID-19 MODERNA 12+ YRS VACCINE Unknown Completed [facility] SARS-COV-2 COVID-19 VACCINE 12 YRS+, BIVALENT 0.5ML, IM, (MODERNA-BLUE TOP) Unknown Completed [facility] Pneumococcal Polysaccharide, PPSV23 (PNEUMOVAX) Unknown Completed [facility] SARS-COV-2 COVID-19 MODERNA 12+ YRS VACCINE Unknown Completed [facility] SARS-COV-2 COVID-19 VACCINE 12 YRS+, BIVALENT 0.5ML, IM, (MODERNA-BLUE TOP) Unknown Completed [facility] Pneumococcal Polysaccharide, PPSV23 (PNEUMOVAX) Unknown Completed [facility] SARS-COV-2 COVID-19 MODERNA 12+ YRS VACCINE Unknown Completed [facility] SARS-COV-2 COVID-19 VACCINE 12 YRS+, BIVALENT 0.5ML, IM, (MODERNA-BLUE TOP) Unknown Completed [facility] Pneumococcal Polysaccharide, PPSV23 (PNEUMOVAX) Unknown Completed [facility] SARS-COV-2 COVID-19 MODERNA 12+ YRS VACCINE Unknown Completed [facility] SARS-COV-2 COVID-19 VACCINE 12 YRS+, BIVALENT 0.5ML, IM, (MODERNA-BLUE TOP) Unknown Completed [facility] Pneumococcal Polysaccharide, PPSV23 (PNEUMOVAX) Unknown Completed [facility] SARS-COV-2 COVID-19 MODERNA 12+ YRS VACCINE Unknown Completed [facility] SARS-COV-2 COVID-19 VACCINE 12 YRS+, BIVALENT 0.5ML, IM, (MODERNA-BLUE TOP) Unknown Completed [facility] Pneumococcal Polysaccharide, PPSV23 (PNEUMOVAX) Unknown Completed [facility] SARS-COV-2 COVID-19 MODERNA 12+ YRS VACCINE Unknown Completed [facility] SARS-COV-2 COVID-19 VACCINE 12 YRS+, BIVALENT 0.5ML, IM, (MODERNA-BLUE TOP) Unknown Completed [facility] Pneumococcal Polysaccharide, PPSV23 (PNEUMOVAX) Unknown Completed [facility] SARS-COV-2 COVID-19 MODERNA 12+ YRS VACCINE Unknown Completed [facility] SARS-COV-2 COVID-19 VACCINE 12 YRS+, BIVALENT 0.5ML, IM, (MODERNA-BLUE TOP) Unknown Completed [facility] Pneumococcal Polysaccharide, PPSV23 (PNEUMOVAX) Unknown Completed [facility] SARS-COV-2 COVID-19 MODERNA 12+ YRS VACCINE Unknown Completed [facility] SARS-COV-2 COVID-19 VACCINE 12 YRS+, BIVALENT 0.5ML, IM, (MODERNA-BLUE TOP) Unknown Completed [facility] Pneumococcal Polysaccharide, PPSV23 (PNEUMOVAX) Unknown Completed [facility] SARS-COV-2 COVID-19 MODERNA 12+ YRS VACCINE Unknown Completed [facility] SARS-COV-2 COVID-19 VACCINE 12 YRS+, BIVALENT 0.5ML, IM, (MODERNA-BLUE TOP) Unknown Completed [facility] Pneumococcal Polysaccharide, PPSV23 (PNEUMOVAX) Unknown Completed [facility] SARS-COV-2 COVID-19 MODERNA 12+ YRS VACCINE Unknown Completed [facility] SARS-COV-2 COVID-19 VACCINE 12 YRS+, BIVALENT 0.5ML, IM, (MODERNA-BLUE TOP) Unknown Completed [facility] Pneumococcal Polysaccharide, PPSV23 (PNEUMOVAX) Unknown Completed [facility] SARS-COV-2 COVID-19 MODERNA 12+ YRS VACCINE Unknown Completed [facility] SARS-COV-2 COVID-19 VACCINE 12 YRS+, BIVALENT 0.5ML, IM, (MODERNA-BLUE TOP) Unknown Completed [facility] Pneumococcal Polysaccharide, PPSV23 (PNEUMOVAX) Unknown Completed [facility] SARS-COV-2 COVID-19 MODERNA 12+ YRS VACCINE Unknown Completed [facility] SARS-COV-2 COVID-19 VACCINE 12 YRS+, BIVALENT 0.5ML, IM, (MODERNA-BLUE TOP) Unknown Completed [facility] Pneumococcal Polysaccharide, PPSV23 (PNEUMOVAX) Unknown Completed [facility] SARS-COV-2 COVID-19 MODERNA 12+ YRS VACCINE Unknown Completed [facility] SARS-COV-2 COVID-19 VACCINE 12 YRS+, BIVALENT 0.5ML, IM, (MODERNA-BLUE TOP) Unknown Completed [facility] Pneumococcal Polysaccharide, PPSV23 (PNEUMOVAX) Unknown Completed [facility] SARS-COV-2 COVID-19 MODERNA 12+ YRS VACCINE Unknown Completed [facility] SARS-COV-2 COVID-19 VACCINE 12 YRS+, BIVALENT 0.5ML, IM, (MODERNA-BLUE TOP) Unknown Completed [facility] Pneumococcal Polysaccharide, PPSV23 (PNEUMOVAX) Unknown Completed [facility] SARS-COV-2 COVID-19 MODERNA 12+ YRS VACCINE Unknown Completed [facility] SARS-COV-2 COVID-19 VACCINE 12 YRS+, BIVALENT 0.5ML, IM, (MODERNA-BLUE TOP) Unknown Completed [facility] Pneumococcal Polysaccharide, PPSV23 (PNEUMOVAX) Unknown Completed [facility] SARS-COV-2 COVID-19 MODERNA 12+ YRS VACCINE Unknown Completed [facility] SARS-COV-2 COVID-19 VACCINE 12 YRS+, BIVALENT 0.5ML, IM, (MODERNA-BLUE TOP) Unknown Completed [facility] Pneumococcal Polysaccharide, PPSV23 (PNEUMOVAX) Unknown Completed [facility] SARS-COV-2 COVID-19 MODERNA 12+ YRS VACCINE Unknown Completed [facility] SARS-COV-2 COVID-19 VACCINE 12 YRS+, BIVALENT 0.5ML, IM, (MODERNA-BLUE TOP) Unknown Completed [facility] Pneumococcal Polysaccharide, PPSV23 (PNEUMOVAX) Unknown Completed [facility] SARS-COV-2 COVID-19 MODERNA 12+ YRS VACCINE Unknown Completed [facility] SARS-COV-2 COVID-19 VACCINE 12 YRS+, BIVALENT 0.5ML, IM, (MODERNA-BLUE TOP) Unknown Completed [facility] Pneumococcal Polysaccharide, PPSV23 (PNEUMOVAX) Unknown Completed [facility] SARS-COV-2 COVID-19 MODERNA 12+ YRS VACCINE Unknown Completed [facility] SARS-COV-2 COVID-19 VACCINE 12 YRS+, BIVALENT 0.5ML, IM, (MODERNA-BLUE TOP) Unknown Completed [facility] Pneumococcal Polysaccharide, PPSV23 (PNEUMOVAX) Unknown Completed [facility] SARS-COV-2 COVID-19 MODERNA 12+ YRS VACCINE Unknown Completed [facility] SARS-COV-2 COVID-19 VACCINE 12 YRS+, BIVALENT 0.5ML, IM, (MODERNA-BLUE TOP) Unknown Completed [facility] Pneumococcal Polysaccharide, PPSV23 (PNEUMOVAX) Unknown Completed [facility] SARS-COV-2 COVID-19 MODERNA 12+ YRS VACCINE Unknown Completed [facility] SARS-COV-2 COVID-19 VACCINE 12 YRS+, BIVALENT 0.5ML, IM, (MODERNA-BLUE TOP) Unknown Completed [facility] Pneumococcal Polysaccharide, PPSV23 (PNEUMOVAX) Unknown Completed [facility] SARS-COV-2 COVID-19 MODERNA 12+ YRS VACCINE Unknown Completed [facility] SARS-COV-2 COVID-19 VACCINE 12 YRS+, BIVALENT 0.5ML, IM, (MODERNA-BLUE TOP) Unknown Completed [facility] Pneumococcal Polysaccharide, PPSV23 (PNEUMOVAX) Unknown Completed [facility] SARS-COV-2 COVID-19 MODERNA 12+ YRS VACCINE Unknown Completed [facility] SARS-COV-2 COVID-19 MODERNA 0.25ML BOOSTER VACCINE Unknown Completed [facility] SARS-COV-2 COVID-19 VACCINE 12 YRS+, BIVALENT 0.5ML, IM, (MODERNA-BLUE TOP) Unknown Completed [facility] Pneumococcal Polysaccharide, PPSV23 (PNEUMOVAX) Unknown Completed [facility] SARS-COV-2 COVID-19 MODERNA 12+ YRS VACCINE Unknown Completed [facility] SARS-COV-2 COVID-19 VACCINE 12 YRS+, BIVALENT 0.5ML, IM, (MODERNA-BLUE TOP) Unknown Completed [facility] Pneumococcal Polysaccharide, PPSV23 (PNEUMOVAX) Unknown Completed [facility] SARS-COV-2 COVID-19 MODERNA 12+ YRS VACCINE Unknown Completed [facility] SARS-COV-2 COVID-19 VACCINE 12 YRS+, BIVALENT 0.5ML, IM, (MODERNA-BLUE TOP) Unknown Completed [facility] Pneumococcal Polysaccharide, PPSV23 (PNEUMOVAX) Unknown Completed [facility] SARS-COV-2 COVID-19 VACCINE 12 YRS+, BIVALENT 0.5ML, IM, (MODERNA-BLUE TOP) Unknown Completed [facility] SARS-COV-2 COVID-19 MODERNA 12+ YRS VACCINE Unknown Completed [facility] SARS-COV-2 COVID-19 MODERNA 0.25ML BOOSTER VACCINE Unknown Completed [facility] Pneumococcal Polysaccharide, PPSV23 (PNEUMOVAX) Unknown Completed [facility] SARS-COV-2 COVID-19 MODERNA 12+ YRS VACCINE Unknown Completed [facility] SARS-COV-2 COVID-19 VACCINE 12 YRS+, BIVALENT 0.5ML, IM, (MODERNA-BLUE TOP) Unknown Completed [facility] Pneumococcal Polysaccharide, PPSV23 (PNEUMOVAX) Unknown Completed [facility] SARS-COV-2 COVID-19 MODERNA 12+ YRS VACCINE Unknown Completed [facility] SARS-COV-2 COVID-19 VACCINE 12 YRS+, BIVALENT 0.5ML, IM, (MODERNA-BLUE TOP) Unknown Completed [facility] Pneumococcal Polysaccharide, PPSV23 (PNEUMOVAX) Unknown Completed [facility] SARS-COV-2 COVID-19 MODERNA 12+ YRS VACCINE Unknown Completed [facility] SARS-COV-2 COVID-19 VACCINE 12 YRS+, BIVALENT 0.5ML, IM, (MODERNA-BLUE TOP) Unknown Completed [facility] Pneumococcal Polysaccharide, PPSV23 (PNEUMOVAX) Unknown Completed [facility] SARS-COV-2 COVID-19 MODERNA 12+ YRS VACCINE Unknown Completed [facility] SARS-COV-2 COVID-19 VACCINE 12 YRS+, BIVALENT 0.5ML, IM, (MODERNA-BLUE TOP) Unknown Completed [facility] Pneumococcal Polysaccharide, PPSV23 (PNEUMOVAX) Unknown Completed [facility] SARS-COV-2 COVID-19 MODERNA 12+ YRS VACCINE Unknown Completed [facility] SARS-COV-2 COVID-19 VACCINE 12 YRS+, BIVALENT 0.5ML, IM, (MODERNA-BLUE TOP) Unknown Completed [facility] Pneumococcal Polysaccharide, PPSV23 (PNEUMOVAX) Unknown Completed [facility] SARS-COV-2 COVID-19 VACCINE 12 YRS+, BIVALENT 0.5ML, IM, (MODERNA-BLUE TOP) Unknown Completed [facility] SARS-COV-2 COVID-19 MODERNA 12+ YRS VACCINE Unknown Completed [facility] SARS-COV-2 COVID-19 MODERNA 0.25ML BOOSTER VACCINE Unknown Completed [facility] Pneumococcal Polysaccharide, PPSV23 (PNEUMOVAX) Unknown Completed [facility] SARS-COV-2 COVID-19 MODERNA 12+ YRS VACCINE Unknown Completed [facility] SARS-COV-2 COVID-19 VACCINE 12 YRS+, BIVALENT 0.5ML, IM, (MODERNA-BLUE TOP) Unknown Completed [facility] Pneumococcal Polysaccharide, PPSV23 (PNEUMOVAX) Unknown Completed [facility] SARS-COV-2 COVID-19 MODERNA 12+ YRS VACCINE Unknown Completed [facility] SARS-COV-2 COVID-19 VACCINE 12 YRS+, BIVALENT 0.5ML, IM, (MODERNA-BLUE TOP) Unknown Completed [facility] Pneumococcal Polysaccharide, PPSV23 (PNEUMOVAX) Unknown Completed [facility] SARS-COV-2 COVID-19 MODERNA 12+ YRS VACCINE Unknown Completed [facility] SARS-COV-2 COVID-19 VACCINE 12 YRS+, BIVALENT 0.5ML, IM, (MODERNA-BLUE TOP) Unknown Completed [facility] Pneumococcal Polysaccharide, PPSV23 (PNEUMOVAX) Unknown Completed [facility] SARS-COV-2 COVID-19 MODERNA 12+ YRS VACCINE Unknown Completed [facility] SARS-COV-2 COVID-19 VACCINE 12 YRS+, BIVALENT 0.5ML, IM, (MODERNA-BLUE TOP) Unknown Completed [facility] Pneumococcal Polysaccharide, PPSV23 (PNEUMOVAX) Unknown Completed [facility] SARS-COV-2 COVID-19 MODERNA 12+ YRS VACCINE Unknown Completed [facility] SARS-COV-2 COVID-19 VACCINE 12 YRS+, BIVALENT 0.5ML, IM, (MODERNA-BLUE TOP) Unknown Completed [facility] Pneumococcal Polysaccharide, PPSV23 (PNEUMOVAX) Unknown Completed [facility] SARS-COV-2 COVID-19 MODERNA 12+ YRS VACCINE Unknown Completed [facility] SARS-COV-2 COVID-19 VACCINE 12 YRS+, BIVALENT 0.5ML, IM, (MODERNA-BLUE TOP) Unknown Completed [facility] Pneumococcal Polysaccharide, PPSV23 (PNEUMOVAX) Unknown Completed [facility] SARS-COV-2 COVID-19 MODERNA 12+ YRS VACCINE Unknown Completed [facility] SARS-COV-2 COVID-19 VACCINE 12 YRS+, BIVALENT 0.5ML, IM, (MODERNA-BLUE TOP) Unknown Completed [facility] Pneumococcal Polysaccharide, PPSV23 (PNEUMOVAX) Unknown Completed [facility] SARS-COV-2 COVID-19 MODERNA 12+ YRS VACCINE Unknown Completed [facility] SARS-COV-2 COVID-19 VACCINE 12 YRS+, BIVALENT 0.5ML, IM, (MODERNA-BLUE TOP) Unknown Completed [facility] Pneumococcal Polysaccharide, PPSV23 (PNEUMOVAX) Unknown Completed [facility] SARS-COV-2 COVID-19 MODERNA 12+ YRS VACCINE Unknown Completed [facility] SARS-COV-2 COVID-19 VACCINE 12 YRS+, BIVALENT 0.5ML, IM, (MODERNA-BLUE TOP) Unknown Completed [facility] Pneumococcal Polysaccharide, PPSV23 (PNEUMOVAX) Unknown Completed [facility] SARS-COV-2 COVID-19 MODERNA 12+ YRS VACCINE Unknown Completed [facility] SARS-COV-2 COVID-19 VACCINE 12 YRS+, BIVALENT 0.5ML, IM, (MODERNA-BLUE TOP) Unknown Completed [facility] Pneumococcal Polysaccharide, PPSV23 (PNEUMOVAX) Unknown Completed [facility] SARS-COV-2 COVID-19 MODERNA 12+ YRS VACCINE Unknown Completed [facility] SARS-COV-2 COVID-19 VACCINE 12 YRS+, BIVALENT 0.5ML, IM, (MODERNA-BLUE TOP) Unknown Completed [facility] Pneumococcal Polysaccharide, PPSV23 (PNEUMOVAX) Unknown Completed [facility] SARS-COV-2 COVID-19 MODERNA 12+ YRS VACCINE Unknown Completed [facility] SARS-COV-2 COVID-19 VACCINE 12 YRS+, BIVALENT 0.5ML, IM, (MODERNA-BLUE TOP) Unknown Completed [facility] Pneumococcal Polysaccharide, PPSV23 (PNEUMOVAX) Unknown Completed [facility] SARS-COV-2 COVID-19 MODERNA 12+ YRS VACCINE Unknown Completed [facility] SARS-COV-2 COVID-19 VACCINE 12 YRS+, BIVALENT 0.5ML, IM, (MODERNA-BLUE TOP) Unknown Completed [facility] Pneumococcal Polysaccharide, PPSV23 (PNEUMOVAX) Unknown Completed [facility] SARS-COV-2 COVID-19 MODERNA 12+ YRS VACCINE Unknown Completed [facility] SARS-COV-2 COVID-19 VACCINE 12 YRS+, BIVALENT 0.5ML, IM, (MODERNA-BLUE TOP) Unknown Completed [facility] Pneumococcal Polysaccharide, PPSV23 (PNEUMOVAX) Unknown Completed [facility] SARS-COV-2 COVID-19 MODERNA 12+ YRS VACCINE Unknown Completed [facility] SARS-COV-2 COVID-19 VACCINE 12 YRS+, BIVALENT 0.5ML, IM, (MODERNA-BLUE TOP) Unknown Completed [facility] Pneumococcal Polysaccharide, PPSV23 (PNEUMOVAX) Unknown Completed [facility] SARS-COV-2 COVID-19 MODERNA 12+ YRS VACCINE Unknown Completed [facility] SARS-COV-2 COVID-19 VACCINE 12 YRS+, BIVALENT 0.5ML, IM, (MODERNA-BLUE TOP) Unknown Completed [facility] Pneumococcal Polysaccharide, PPSV23 (PNEUMOVAX) Unknown Completed [facility] SARS-COV-2 COVID-19 MODERNA 12+ YRS VACCINE Unknown Completed [facility] SARS-COV-2 COVID-19 VACCINE 12 YRS+, BIVALENT 0.5ML, IM, (MODERNA-BLUE TOP) Unknown Completed [facility] Pneumococcal Polysaccharide, PPSV23 (PNEUMOVAX) Unknown Completed [facility] SARS-COV-2 COVID-19 MODERNA 12+ YRS VACCINE Unknown Completed [facility] SARS-COV-2 COVID-19 VACCINE 12 YRS+, BIVALENT 0.5ML, IM, (MODERNA-BLUE TOP) Unknown Completed [facility] Pneumococcal Polysaccharide, PPSV23 (PNEUMOVAX) Unknown Completed [facility] SARS-COV-2 COVID-19 MODERNA 12+ YRS VACCINE Unknown Completed [facility] SARS-COV-2 COVID-19 VACCINE 12 YRS+, BIVALENT 0.5ML, IM, (MODERNA-BLUE TOP) Unknown Completed [facility] Pneumococcal Polysaccharide, PPSV23 (PNEUMOVAX) Unknown Completed [facility] SARS-COV-2 COVID-19 MODERNA 12+ YRS VACCINE Unknown Completed [facility] SARS-COV-2 COVID-19 VACCINE 12 YRS+, BIVALENT 0.5ML, IM, (MODERNA-BLUE TOP) Unknown Completed [facility] Pneumococcal Polysaccharide, PPSV23 (PNEUMOVAX) Unknown Completed [facility] SARS-COV-2 COVID-19 VACCINE - (MODERNA) Unknown Completed [facility] SARS-COV-2 COVID-19 MODERNA 0.25ML BOOSTER VACCINE Unknown Completed [facility] SARS-COV-2 COVID-19 VACCINE 12 YRS+, BIVALENT 0.5ML, IM, (MODERNA-BLUE TOP) Unknown Completed [facility] Vital Signs Vital Name Observation Time Observation Value Comments S ource Systolic blood pressure 2023-11-29 18:13:00 112 mm[Hg] [facility] Diastolic blood pressure 2023-11-29 18:13:00 56 mm[Hg] [facility] Heart rate 2023-11-29 18:13:00 98 /min [facility] Body temperature 2023-11-29 18:13:00 36.78 Celeste [facility] Systolic blood pressure 2023-06-15 17:06:00 113 mm[Hg] [facility] Diastolic blood pressure 2023-06-15 17:06:00 79 mm[Hg] [facility] Heart rate 2023-06-15 17:06:00 76 /min [facility] Body temperature 2023-06-15 17:06:00 36.56 Celeste [facility] Oxygen saturation in Arterial blood by Pulse oximetry 2023-06-15 17:06:00 96 /min [facility] Systolic blood pressure 2023-03-23 00:44:00 127 mm[Hg] [facility] Diastolic blood pressure 2023-03-23 00:44:00 73 mm[Hg] [facility] Heart rate 2023-03-23 00:44:00 77 /min [facility] Body temperature 2023-03-23 00:44:00 36.11 Celeste [facility] Respiratory rate 2023-03-23 00:44:00 18 /min [facility] Oxygen saturation in Arterial blood by Pulse oximetry 2023-03-23 00:44:00 99 /min [facility] Body weight 2023-03-22 22:27:00 145 kg [facility] BMI 2023-03-22 22:27:00 44.58 kg/m2 [facility] Body height 2023-03-17 14:44:00 [facility]3 [facility] 2023-02-27 07:42:00 180.3 cm WEIGHT [...] kg Body height 2023-01-21 14:52:00 180.3 cm [facility] Body weight 2023-01-21 14:52:00 147.646 kg [facility] BMI 2023-01-21 14:52:00 45.40 kg/m2 [facility] Systolic blood pressure 2023-01-12 14:11:00 138 mm[Hg] [facility] Diastolic blood pressure 2023-01-12 14:11:00 72 mm[Hg] [facility] Body temperature 2023-01-12 14:11:00 36.56 Celeste [facility] Body weight 2023-01-12 14:11:00 146.965 kg [facility] BMI 2023-01-12 14:11:00 45.19 kg/m2 [facility] Systolic blood pressure 2022-11-17 15:46:00 93 mm[Hg] [facility] Diastolic blood pressure 2022-11-17 15:46:00 54 mm[Hg] [facility] Heart rate 2022-11-17 15:37:00 72 /min [facility] Body temperature 2022-11-17 15:37:00 36.44 Celeste [facility] WEIGHT 2022-11-11 12:26:00 142.1 kg WEIGHT 2022-11-11 [...] Heart rate 2022-10-01 20:46:00 78 /min [facility] Body height 2022-10-01 20:46:00 180.3 cm [facility] Body weight 2022-10-01 20:46:00 150.367 kg [facility] BMI 2022-10-01 20:46:00 46.23 kg/m2 [facility] Oxygen saturation in Arterial blood by Pulse oximetry 2022-10-01 20:46:00 98 /min [facility] Systolic blood pressure 2022-08-31 21:20:00 119 mm[Hg] [facility] Diastolic blood pressure 2022-08-31 21:20:00 77 mm[Hg] [facility] Heart rate 2022-08-31 21:20:00 91 /min [facility] Body height 2022-08-31 21:20:00 180.3 cm [facility] Body weight 2022-08-31 21:20:00 149.097 [facility] BMI 2022-08-31 21:20:00 45.84 kg/m2 [facility] Systolic blood pressure 2022-08-13 16:51:00 118 mm[Hg] [facility] Diastolic blood pressure 2022-08-13 16:51:00 53 mm[Hg] [facility] Heart rate 2022-08-13 16:51:00 78 /min [facility] Body height 2022-08-13 16:51:00 180.3 cm [facility] Body weight 2022-08-13 16:51:00 144.244 kg [facility] BMI 2022-08-13 16:51:00 44.35 kg/m2 [facility] Oxygen saturation in Arterial blood by Pulse oximetry 2022-08-13 16:51:00 98 /min [facility] Systolic blood pressure 2022-07-27 20:01:00 89 mm[Hg] [facility] Diastolic blood pressure 2022-07-27 20:01:00 73 mm[Hg] [facility] Heart rate 2022-07-27 20:01:00 67 /min [facility] Body height 2022-07-27 20:01:00 180.3 cm [facility] Body weight 2022-07-27 20:01:00 144.244 kg [facility] BMI 2022-07-27 20:01:00 44.35 kg/m2 [facility] Oxygen saturation in Arterial blood by Pulse oximetry 2022-07-27 20:01:00 97 /min [facility] Systolic blood pressure 2022-06-25 15:36:00 115 mm[Hg] [facility] Diastolic blood pressure 2022-06-25 15:36:00 84 mm[Hg] [facility] Heart rate 2022-06-25 15:36:00 79 /min [facility] Body temperature 2022-06-25 15:36:00 37.06 Celeste [facility] Respiratory rate 2022-06-25 15:36:00 19 /min [facility] Body height 2022-06-25 15:36:00 180.3 cm [facility] Body weight 2022-06-25 15:36:00 146.603 kg [facility] BMI 2022-06-25 15:36:00 45.08 kg/m2 [facility] Oxygen saturation in Arterial blood by Pulse oximetry 2022-06-25 15:36:00 97 /min [facility] Systolic blood pressure 2022-05-12 18:22:00 102 mm[Hg] [facility] Diastolic blood pressure 2022-05-12 18:22:00 68 mm[Hg] [facility] Heart rate 2022-05-12 18:22:00 73 /min [facility] Body temperature 2022-05-12 18:22:00 37.17 Celeste [facility] Body weight 2022-05-12 18:22:00 145.151 kg [facility] BMI 2022-05-12 18:22:00 44.63 kg/m2 [facility] Procedures Procedure Date / Time Performed Performing Clinician Source EXTERNAL PROVIDER RECORDS 2023-09-08 06:01:00 Doctor Unassigned, [facility] REFERRAL- REQUEST/RESPONSE 2023-08-29 06:01:00 Doctor Unassigned, [facility] HEALTH - OTHER 2023-07-18 06:01:00 Doctor Sonali william, [facility] SCANNED LAB RESULTS 2023-07-14 06:01:00 Doctor Sonali william, [facility] LIANG MULTI LEVEL - BY VASCULAR LAB 2023-07-12 16:48:00 Alvarez Martinez [facility] CONSENT/REFUSAL FOR DIAGNOSIS AND TREATMENT 2023-07-12 15:31:12 Doctor Unassigned, [facility] SCANNED LAB RESULTS 2023-06-15 06:01:00 Doctor Sonali william, [facility] EXTERNAL PROVIDER RECORDS 2023-05-19 06:01:00 Doctor Unassigned, [facility] EXTERNAL PROVIDER RECORDS 2023-04-28 05:01:00 Doctor Unassigned, [facility] HEALTH - OTHER 2023-04-20 05:01:00 Doctor Sonali william, [facility] HEALTH - OTHER 2023-04-18 05:01:00 Doctor Sonali william, [facility] EXTERNAL PROVIDER RECORDS 2023-04-12 05:01:00 Doctor Unassigned, [facility] [id number] 2023-03-24 00:00:00 [facility] 2023-03-22 10:51:00 Dejuan Lee [facility] BASIC METABOLIC PANEL (NA, K, CL, CO2, GLUCOSE, BUN, CREATININE, CA) 2023-03-22 10:51:00 Dejuan Lee [facility] CBC WITH DIFF 2023-03-22 10:51:00 Dejuan Lee [facility] PROTHROMBIN TIME / INR 2023-03-22 10:51:00 Leann Fonseca [facility] DUPLEX VENOUS LEGS BILATERAL - BY VASCULAR LAB 2023-03-20 16:04:00 Leann Fonseca [facility] PROTHROMBIN TIME / INR 2023-03-17 19:56:00 Marian [facility] PHOSPHORUS 2023-03-17 11:35:00 [facility]-17 11:35[facility] (NA, K, CL, CO2, GLUCOSE, BUN, CREATININE, CA) 2023-03-17 11:35:00 [facility] EXTERNAL PROVIDER RECORDS 2023-03-17 05:01:00 Doctor Unassigned, [facility] BASIC METABOLIC PANEL (NA, K, CL, CO2, GLUCOSE, BUN, CREATININE, CA) 2023-03-16 15:01:00 Thea [facility] PHOSPHORUS 2023-03-16 14:25:00 [facility] 2023-03-16 14:25:00 [facility] POCT GLUCOSE (AUTOMATED) 2023-03-16 13:27:00 Susan Ramirez [facility] IRON PANEL 2023-03-15 20:20:00 [facility] ACTIVATED PARTIAL THRMPLAS MATHEW 2023-03-15 20:20:00 Eber Finnegan [facility] HEPATITIS B SURFACE ANTIBODY 2023-03-15 20:20:00 Lina [facility] HEPATITIS B SURFACE ANTIGEN 2023-03-15 20:20:00 Mackenzie iMlls [facility] AC PANEL 20 + LACTIC ACID 2023-03-15 14:06:00 Alexandre Whitten [facility] TRANSTHORACIC ECHO (TTE) COMPLETE W/ CONTRAST 2023-03-15 13:51:45 Thea [facility] PHOSPHORUS 2023-03-15 07:33:00 [facility] 2023-03-15 07:33:00 Thea [facility] FERRITIN SERUM 2023-03-15 07:33:00 [facility], LEVEL 2023-03-15 07:33:00 [facility] 2023-03-15 07:33:00 Thea [facility] BASIC METABOLIC PANEL (NA, K, CL, CO2, GLUCOSE, BUN, CREATININE, CA) 2023-03-15 07:33:00 Thea [facility] CBC WITH DIFF 2023-03-15 07:33[facility] 2023-03-15 07:33:00 Thea [facility] ACTIVATED PARTIAL THRMPLAS MATHEW 2023-03-15 07:33:00 Sivan [facility] ACTIVATED PARTIAL THRMPLAS MATHEW 2023-03-14 22:37:00 Sivan [facility] DUPLEX VENOUS LEGS BILATERAL - BY VASCULAR LAB 2023-03-14 16:23:51 Felipe [facility] BASIC METABOLIC PANEL (NA, K, CL, CO2, GLUCOSE, BUN, CREATININE, CA) 2023-03-14 15:51:00 Thea [facility] CBC WITH DIFF 2023-03-14 15:51:00 Thea [facility] GLYCOSYLATED HEMOGLOBIN (A1C) 2023-03-14 15:51:00 Thea [facility] ACTIVATED PARTIAL THRMPLAS MATHEW 2023-03-14 15:51:00 Sivan [facility] PROTHROMBIN TIME / INR 2023-03-14 08:46:00 Erikal [facility] ACTIVATED PARTIAL THRMPLAS MATHEW 2023-03-14 08:46:00 Sivan [facility] CBC WITH DIFF 2023-03-14 05:48:00 Thea [facility] MAGNESIUM 2023-03-13 22:00:00 Thea [facility] BASIC METABOLIC PANEL (NA, K, CL, CO2, GLUCOSE, BUN, CREATININE, CA) 2023-03-13 22:00:00 Thea [facility] CBC WITH DIFF 2023-03-13 22:00:00 Thea [facility] ACTIVATED PARTIAL THRMPLAS MATHEW 2023-03-13 22:00:00 Thea [facility] HB ECG ROUTINE & RHYTHM STRIP 2023-03-13 13:09:21 Thea [facility] PROTHROMBIN TIME / INR 2023-03-13 10:59:00 Qian Finnegan [facility] FIBRINOGEN 2023-03-13 10:59:00 Sivan [facility] AC PANEL 20 + LACTIC ACID 2023-03-13 08:26:00 Sivan [facility] PHOSPHORUS 2023-03-13 08:25:00 Fantasma Claros [facility] MAGNESIUM 2023-03-13 08:25:00 Fantasma Claros [facility] BASIC METABOLIC PANEL (NA, K, CL, CO2, GLUCOSE, BUN, CREATININE, CA) 2023-03-13 08:25:00 Marjorie Claros [facility] TROPONIN I 2023-03-13 08:24:[address] [facility] CBC WITH DIFF 2023-03-13 08:24:00 Eber Finnegan [facility] HB ECG ROUTINE & RHYTHM STRIP 2023-03-13 08:18:27 Sivan [facility] XR CHEST 1 VW 2023-03-12 23:46:00 Melanie Wise [facility] PROTHROMBIN TIME / INR 2023-03-12 23:20:00 Qian Finnegan [facility] TROPONIN I 2023-03-12 23:17:[address] [facility] CBC WITH DIFF 2023-03-12 23:17:00 [facility] PROTHROMBIN TIME / INR 2023-03-12 16:15:00 Salim, Hamz [facility] TROPONIN I 2023-03-12 16:11:00 Sivan [facility] CBC WITH DIFF 2023-03-12 16:11:00 Sivan [facility] PROTHROMBIN TIME / INR 2023-03-12 10:46:00 Sivan [facility] ANGIOGRAM ABDOMEN/PELVIS 2023-03-12 10:20:45 Sivan [facility] ABORH CONFIRMATION (LAB ONLY) 2023-03-12 08:10:00 Susan Ramirez [facility] XR CHEST 1 VW 2023-03-12 07:58:44 Sivan [facility] CT ABDOMEN PELVIS WO CONTRAST 2023-03-12 07:55:04 Sivan [facility] HB ABO GROUPING 2023-03-12 07:16:00 Sivan [facility] MAGNESIUM 2023-03-12 06:55:00 Felipe [facility] TROPONIN I 2023-03-12 06:55:00 [facility] HEPATIC FUNCTION PANEL (61043) (ALB,T.PRO,BILI T,BU/BC,ALT,AST,ALK PHOS) 2023-03-12 06:55:00 [facility] BASIC METABOLIC PANEL (NA, K, CL, CO2, GLUCOSE, BUN, CREATININE, CA) 2023-03-12 06:55:00 Felipe [facility] LIPID PANEL (30164)(TOTAL CHOLESTEROL, TRIGLYCERIDES, HDL) 2023-03-12 06:55:00 Felipe [facility] CBC WITH DIFF 2023-03-12 06:55:00 Sivan [facility] PROTHROMBIN TIME / INR 2023-03-12 06:55:00 Sivan [facility] FIBRINOGEN 2023-03-12 06:55:00 Felipe [facility] AC PANEL 20 + LACTIC ACID 2023-03-12 06:55:00 [facility] MRSA / MSSA SCREEN BY PCR, MISAEL 2023-03-12 06:55:00 Sivan Bookerdoyle [facility] HB ECG ROUTINE & RHYTHM STRIP 2023-03-12 06:46:32 Eber Finnegan [facility] EXTERNAL PROVIDER RECORDS 2023-03-02 05:01:00 Doctor Unassigned, [facility] EXTERNAL PROVIDER RECORDS 2023-02-24 05:01:00 Doctor Unassigned, [facility] REFERRAL- REQUEST/RESPONSE 2023-02-07 05:01:00 Doctor Unassigned, [facility] REFERRAL- REQUEST/RESPONSE 2022-11-25 05:01:00 Doctor Unassigned, [facility] PATIENT FINANCIAL POLICY 2022-10-01 19:29:42 Doctor Unassigned, [facility] REFERRAL- REQUEST/RESPONSE 2022-09-21 05:01:00 Doctor Unassigned, [facility] REFERRAL- REQUEST/RESPONSE 2022-09-10 06:01:00 Doctor Unassigned, [facility] CONSENT/REFUSAL FOR DIAGNOSIS AND TREATMENT 2022-08-31 21:15:08 Doctor Unassigned, [facility] REFERRAL- REQUEST/RESPONSE 2022-08-25 06:01:00 Doctor Unassigned, [facility] REFERRAL- REQUEST/RESPONSE 2022-08-01 06:01:00 Doctor Unassigned, [facility] REFERRAL- REQUEST/RESPONSE 2022-06-25 06:01:00 Doctor Unassigned, [facility] SARS-COV-2 COVID-19 VACCINE 12 YRS+, BIVALENT 0.5ML, IM (MODERNA BOOSTER) 2022-06-21 14:34:00 Doctor Unassigned, [facility] MEDICAL RELEASE/CLEARANCE FORMS 2022-06-15 06:01:00 Doctor Unassigned, [facility] REFERRAL- REQUEST/RESPONSE 2022-05-04 05:01:00 Doctor Unassigned, [facility] AUTHORIZATION FOR RELEASE OF PHI 2022-03-05 05:01:00 Doctor Unassigned, [facility] REFERRAL- REQUEST/RESPONSE 2022-02-11 05:01:00 Doctor Unassigned, [facility] [id number] 2021-11-17 00:00:00 MONCHO.01 [facility] [id number] 2021-11-17 00:00:00 MARCOS.05 [facility] [id number] 2021-10-10 00:00:00 MARCOS.05 [facility] [id number] 2021-10-10 00:00:00 MARCOS.05 [facility] [id number] 2021-04-18 00:00:00 [facility] [id number] 2021-04-18 00:00:00 [facility] [id number] 2021-04-18 00:00:00 [facility] [id number] 2021-04-18 00:00:00 [facility] [id number] 2021-04-18 00:00:00 [facility] [id number] 2021-04-16 00:00:00 DADOL [facility] [id number] 2021-04-13 00:00:00 DADOL [facility] [id number] 2021-04-11 00:00:00 DADOL [facility] [id number] 2021-04-09 00:00:00 DADOL [facility] [id number] 2021-04-09 00:00:00 DADOL [facility] [id number] 2021-04-07 00:00:00 CORAN.03 [facility] [id number] 2021-04-07 00:00:00 DADOL [facility] [id number] 2021-04-04 00:00:00 [facility] [id number] 2021-04-04 00:00:00 [facility] [id number] 2021-04-04 00:00:00 [facility] [id number] 2021-04-04 00:00:00 [facility] [id number] 2021-04-04 00:00:00 [facility] [id number] 2021-04-04 00:00:00 [facility] [id number] 2021-04-04 00:00:00 [facility] [id number] 2021-04-04 00:00:00 [facility] Encounter Stat Only 2020-01-16 00:00:00 [facility] [place] [facility] Carpal tunnel release, left 2020-01-08 00:00:00 [facility] Minor level new patient office visit 2019-12-17 00:00:00 [facility] X-ray of finger, two or more views 2019-12-17 00:00:00 [facility] Encounters Start Date/Time End Date/Time Encounter Type Admission Type Attending [facility] Care Facility Care Department Encounter ID Source 2023-03-21 11:39:06 Outpatient 3 FLOR CUELLARA E[place] [id number] [facility] 2023-02-26 20:00:27 Inpatient UR DIEGO HO [facility] [id number] [facility] 2023-02-25 10:21:25 Inpatient UR FARHAN KUMAR [facility] [id number] [facility] 2023-02-25 10:02:04 Inpatient UR SLE SLE [id number] [facility] 2023-02-13 12:10:46 Inpatient ER MARGARITA CRUZ [facility] [id number] [facility] 2023-02-12 08:26:18 Inpatient ER JAKUB HAYSR [facility] [id number] [facility] 2022-11-07 02:13:13 Inpatient ER SHAHEENDora [facility] Medical ICU [id number] [facility] 2021-11-15 16:35:00 Inpatient EM Jose Mcfarlane [facility]02 [id number] [facility] 2021-10-04 15:45:09 Emergency X JENARO BAH [facility] [id number] [facility] 2021-08-06 13:01:32 Outpatient 3 [id number] [facility] REF [id number] 1005 [facility] 2021-08-06 12:57:21 Outpatient 3 LEIDA CUELLAR [facility] TANK [id number] 0923 [facility] 2021-08-06 12:56:17 Outpatient 3 LEIDA CUELLAR ENC[facility] TANK [id number] 0921 [facility] 2021-08-06 12:54:31 Outpatient 3 LEIDA UCELLAR ENC[facility] TANK [id number] 0916 [facility] 2021-08-06 12:53:45 Outpatient 3 LEIDA CUELLAR ENC[facility] TANK [id number] 0914 [facility] 2021-08-06 12:53:08 Outpatient 3 [id number] ENCPL REF [id number] 0913 [facility] 2021-08-06 12:52:55 Outpatient 3 [id number] ENC[facility] REF [id number] 1 0912 [facility] [place] [facility] 2021-05-09 05:30:28 Outpatient R FABRICIOGRACEEN [facility] [id number] [facility] 2021-04-16 19:38:00 Inpatient 3 LEIDA CUELLAR ENCPL PUL [id number] [facility] [place] [facility] 2021-04-03 18:19:00 Inpatient 3 LEIDA CUELLAR ENCPL TANK [id number] 0924 [facility] [place] [facility] 2024 00:00:00 2024 10:47:06 Telephone Ashley [facility] 1.2.840.114 350.1.13.10 4.2.7.2.686 [id number] 044 [id number] [facility] 2024-07-18 00:00:00 2024-07-18 08:41:12 Refill Ashley [facility] 1.2.840.114 350.1.13.10 4.2.7.2.686 [id number] 044 [id number] [facility] 2024-07-13 00:00:00 2024-07-16 11:26:28 RefIra Baca Critical access hospital [facility] 1.2.840.114 350.1.13.10 4.2.7.2.686 [id number] 044 [id number] [facility] 2024-07-10 00:00:00 2024-07-12 11:01:56 Refill Ira Ramirez Critical access hospital [place]?[facility] 1.2840.114 350.1.13.10 4.2.7.2.686 [id number] 044 [id number] [facility] 2024-07-03 00:00:00 2024-07-05 09:30:54 Refill Ira Ramirez Critical access hospital [place]?[facility] 1.2840.114 350.1.13.10 4.2.7.2.686 [id number] 044 [id number] [facility] 2024-06-25 00:00:00 2024-06-25 15:18:28 Refill Ira Ramirez Critical access hospital [place]?[facility] 1.2.840.114 350.1.13.10 4.2.7.2.686 [id number] 044 [id number] [facility] 2024-06-22 00:00:00 2024-06-22 17:58:54 Refill Ira Ramirez Critical access hospital [place]?[facility] 1.2.840.114 350.1.13.10 4.2.7.2.686 [id number] 044 [id number] [facility] 2024-06-15 00:00:00 2024-06-18 10:23:40 Telephone Ira Ramirez Critical access hospital [place]?[facility] 1.2.840.114 350.1.13.10 4.2.7.2.686 [id number] 044 [id number] [facility] 2024-06-17 00:00:00 2024-06-18 09:35:29 Refill Ira Ramirez Critical access hospital [place] 1.2.840.114 350.1.13.10 4.2.7.2.686 [id number] 044 [id number] [facility] 2024-06-14 00:00:00 2024-06-18 08:06:31 Telephone Ira Ramirez Critical access hospital [place]?[facility] 1.2.840.114 350.1.13.10 4.2.7.2.686 [id number] 044 [id number] [facility] 2024-05-27 00:00:00 2024-05-28 11:04:01 Refill Ira Ramirez Critical access hospital [place] 1.2.840.114 350.1.13.10 4.2.7.2.686 [id number] 044 [id number] [facility] 2024-05-18 00:00:00 2024-05-21 08:02:06 Refill Ira Ramirez Critical access hospital [place] 1.2840.114 350.1.13.10 4.2.7.2.686 [id number] 044 [id number] [facility] 2024-05-18 00:00:00 2024-05-18 13:55:11 Telephone Ira Ramirez Critical access hospital [place]?[facility] 1.2.840.114 350.1.13.10 4.2.7.2.686 [id number] 044 [id number] [facility] 2024-05-15 00:00:00 2024-05-15 11:06:14 Refill Winkler, [facility] [place]?[facility] 1.2.840.114 350.1.13.10 4.2.7.2.686 [id number] 220 [id number] [facility] 2024-05-01 00:00:00 2024-05-01 16:51:27 Telephone Ashley [facility] [place]?[facility] 1.2.840.114 350.1.13.10 4.2.7.2.686 [id number] 044 [id number] [facility] 2024-04-30 00:00:00 2024-04-30 14:59:05 Refill Ashley [facility] [place]?[facility] 1.2.840.114 350.1.13.10 4.2.7.2.686 [id number] 044 [id number] [facility] 2024-04-11 00:00:00 2024-04-11 13:56:55 Refill Ashley [facility] [place]?[facility] 1.2.840.114 350.1.13.10 4.2.7.2.686 [id number] 044 [id number] [facility] 2024-03-27 00:00:00 2024-03-27 11:44:19 [facility] [place]?[facility] 1.2.840.114 350.1.13.10 4.2.7.2.686 [id number] 220 [id number] [facility] 2024-03-19 00:00:00 2024-03-21 08:16:24 Refill [facility] 1.2.840.114 350.1.13.10 4.2.7.2.686 [id number] 044 [id number] [facility] 2024-03-03 00:00:00 2024-03-05 13:03:29 Refill [facility] 1.2.840.114 350.1.13.10 4.2.7.2.686 [id number] 044 [id number] [facility] 2024-02-28 15:30:00 2024-02-28 15:30:00 Outpatient R PETERSONREGINA [facility] [id number] [facility] 2024-02-20 00:00:00 2024-02-20 13:05:11 Telephone Ira Ramirez Critical access hospital [facility] 1.2840.114 350.1.13.10 4.2.7.2.686 [id number] 044 [id number] [facility] 2024-02-17 00:00:00 2024-02-17 14:32:09 Telephone Ira Ramirez Critical [facility] hospital [place] 1.2.84.114 350.1.13.10 4.2.7.2.686 [id number] 044 [id number] [facility] 2024-02-14 15:45:00 2024-02-14 16:15:00 Telemedici ne Visit Ashley [facility] [place] 1.2.840.114 350.1.13.10 4.2.7.2.686 [id number] 044 [id number] [facility] 2024-02-14 15:45:00 2024-02-14 15:45:00 Outpatient R IRA RAMIREZ [facility] [id number] [facility] 2024-02-13 00:00:00 2024-02-13 17:17:35 Telephone Ira Ramirez Critical access hospital [place] 1.2.840.114 350.1.13.10 4.2.7.2.686 [id number] 044 [id number] [facility] 2024-02-12 00:00:00 2024-02-13 10:16:00 Refill Ira Ramirez Critical access hospital [place]?[facility] 1.2.840.114 350.1.13.10 4.2.7.2.686 [id number] 044 [id number] [facility] 2024-01-26 14:30:00 2024-01-26 14:30:00 Outpatient JUANCARLOS ZARATE [facility] [id number] [facility] 2024-01-03 00:00:00 2024-01-04 08:57:22 Telephone Ira Ramirez Critical access hospital [place]?[facility] 1.2.840.114 350.1.13.10 4.2.7.2.686 [id number] 044 [id number] [facility] 2023-12-20 00:00:00 2023-12-21 09:04:47 Telephone Ira Ramirez Critical access hospital [place]?[facility] 1..840.114 350.1.13.10 4.2.7.2.686 [id number] 044 [id number] [facility] 2023-12-20 00:00:00 2023-12-20 10:23:56 Telephone Ira Ramirez Critical access hospital [place]?[facility] 1.2.840.114 350.1.13.10 4.2.7.2.686 [id number] 044 [id number] [facility] 2023-12-19 00:00:00 2023-12-19 16:41:53 Telephone Ira Ramirez Critical access hospital [place]?[facility] 1.2.840.114 350.1.13.10 4.2.7.2.686 [id number] 044 [id number] [facility] 2023-12-13 00:00:00 2023-12-13 16:24:56 Telephone [facility] 1.2.840.114 350.1.13.10 4.2.7.2.686 [id number] 044 [id number] [facility] 2023-12-12 00:00:00 2023-12-13 08:17:07 Telephone Ira Ramirez [facility] 1.2.840.114 350.1.13.10 4.2.7.2.686 [id number] 044 [id number] [facility] 2023-12-12 00:00:00 2023-12-12 16:51:34 Telephone Ira Ramirez [facility] 1.2.840.114 350.1.13.10 4.2.7.2.686 [id number] 044 [id number] [facility] 2023-12-12 00:00:00 2023-12-12 15:40:03 Telephone Ira Ramirez Critical access hospital [place] 1.2.840.114 350.1.13.10 4.2.7.2.686 [id number] 044 [id number] [facility] 2023-12-09 00:00:00 2023-12-12 11:46:51 Telephone Ira Ramirez Critical access hospital [place]?[facility] 1.2.840.114 350.1.13.10 4.2.7.2.686 [id number] 044 [id number] [facility] 2023-12-11 00:00:00 2023-12-12 08:58:56 Refill Ira [facility] 1.2.840.114 350.1.13.10 4.2.7.2.686 [id number] 044 [id number] [facility] 2023-12-06 00:00:00 2023-12-06 14:50:39 [facility]jimbo [facility] 1.2.840.114 350.1.13.10 4.2.7.2.686 [id number] 044 [id number] [facility] 2023-12-01 00:00:00 2023-12-01 11:56:36 Telephone Jassniru [facility] 1..840.114 350.1.13.10 4.2.7.2.686 [id number] 044 [id number] [facility] 2023-11-29 14:00:00 2023-11-29 14:15:00 Fill Manager Visit Lab, Elian Ramirez [facility] 1..840.114 350.1.13.10 4.2.7.2.686 [id number] [facility] 2023-11-29 14:00:00 2023-11-29 14:00:00 Outpatient R IRA RAMIREZ [facility] [id number] [facility] 2023-11-29 13:15:00 2023-11-29 13:45:00 Office Visit [facility] 1.2.840.114 350.1.13.10 4.2.7.2.686 [id number] 044 [id number] [facility] 2023-11-27 00:00:00 2023-11-28 09:23:13 Darrell Kristachongniru [facility] 1.2.840.114 350.1.13.10 4.2.7.2.686 [id number] 044 [id number] [facility] 2023-11-19 00:00:00 2023-11-19 00:00:00 Refill Ira Ramirez [facility] 1.2.840.114 350.1.13.10 4.2.7.2.686 [id number] 044 [id number] [facility] 2023-11-14 00:00:00 2023-11-15 06:50:21 Refill Ira Ramirez [facility] 1.2.840.114 350.1.13.10 4.2.7.2.686 [id number] 044 [id number] [facility] 2023-11-14 00:00:00 2023-11-14 10:05:17 Telephone Ira Ramirez Critical [facility] hospital [place]?[facility] 1.2.840.114 350.1.13.10 4.2.7.2.686 [id number] 044 [id number] [facility] 2023-11-11 00:00:00 2023-11-11 00:00:00 Refill Ashley [facility] [place]?[facility] 1.2.840.114 350.1.13.10 4.2.7.2.686 [id number] 044 [id number] [facility] 2023-11-08 16:00:00 2023-11-08 17:28:15 Outpatient R PETERSON REGINA [facility] [id number] [facility] 2023-11-08 16:00:00 2023-11-08 17:28:15 Office Visit Peterson [facility] [place]?[facility] 1.2.840.114 350.1.13.10 4.2.7.2.686 [id number] 220 [id number] [facility] 2023-11-05 00:00:00 2023-11-05 00:00:00 Telephone Ira Ramirez Critical access hospital [place]?[facility] 1.840.114 350.1.13.10 4.2.7.2.686 [id number] 044 [id number] [facility] 2023-11-03 00:00:00 2023-11-03 00:00:00 Telephone Ira Ramirez Critical access hospital [place]?[facility] 1.0.114 350.1.13.10 4.2.7.2.686 [id number] 044 [id number] [facility] 2023-11-03 00:00:00 2023-11-03 00:00:00 Refill Ira Ramirez Critical [facility] hospital [place] 1.84.114 350.1.13.10 4.2.7.2.686 [id number] 044 [id number] [facility] 2023-11-03 00:00:00 2023-11-03 00:00:00 Telephone Ira Ramirez Critical access hospital [place]?[facility] 1..114 350.1.13.10 4.2.7.2.686 [id number] 044 [id number] [facility] 2023-11-02 16:00:00 2023-11-02 16:30:00 Telemedici ne Visit Ashley [facility] [place]?ROMMEL [facility] 1.84.114 350.1.13.10 4.2.7.2.686 [id number] 044 [id number] [facility] 2023-11-02 16:00:00 2023-11-02 16:00:00 Outpatient R IRA RAMIREZ [facility] [id number] [facility] 2023-11-02 00:00:00 2023-11-02 00:00:00 Refill Drake Ley [facility] [place]?[facility] 1.84.114 350.1.13.10 4.2.7.2.686 [id number] 220 [id number] [facility] 2023-10-31 00:00:00 2023-10-31 00:00:00 Telephone Ira Ramirez [facility] 1.2840.114 350.1.13.10 4.2.7.2.686 [id number] 044 [id number] [facility] 2023-10-31 00:00:00 2023-10-31 00:00:00 Refill Drake Ley [facility] [place]?[facility] 1.2840.114 350.1.13.10 4.2.7.2.686 [id number] 220 [id number] [facility] 2023-10-29 00:00:00 2023-10-29 00:00:00 Refill Ira Ramirez Critical access hospital [place]?[facility] 1.2840.114 350.1.13.10 4.2.7.2.686 [id number] 044 [id number] [facility] 2023-10-26 00:00:00 2023-10-26 00:00:00 Telephone Ira Ramirez Critical access hospital [place]?[facility] 1.2840.114 350.1.13.10 4.2.7.2.686 [id number] 044 [id number] [facility] 2023-10-22 00:00:00 2023-10-22 00:00:00 Refill Ira Ramirez Critical access hospital [place]?[facility] 1.2840.114 350.1.13.10 4.2.7.2.686 [id number] 044 [id number] [facility] 2023-10-15 00:00:00 2023-10-15 00:00:00 Refill Ira Ramirez Critical [facility] hospital [place]?[facility] 1.2840.114 350.1.13.10 4.2.7.2.686 [id number] 044 [id number] [facility] 2023-10-12 00:00:00 2023-10-12 00:00:00 Telephone Ira Ramirez Critical access hospitalE?[facility] 1.2840.114 350.1.13.10 4.2.7.2.686 [id number] 044 [id number] [facility] 2023-09-22 05:17:00 2023-09-27 23:00:00 Outpatient Amita Raphael [facility] [id number] [address] [place] [address] 2023-09-26 00:00:00 2023-09-26 00:00:00 Telephone Daniel Randolph [facility] MED[facility] OFF[facility] BUILD[facility] 1.2840.114 350.1.13.10 4.2.7.2.686 [id number] 205 [id number] [facility] 2023-09-26 00:00:00 2023-09-26 00:00:00 Telephone Ashley [facility] 1.2840.114 350.1.13.10 4.2.7.2.686 [id number] 044 [id number] [facility] 2023-09-23 00:00:00 2023-09-23 00:00:00 Telephone Daniel Randolph [facility] MED[facility] OFF[facility] BUILD[facility] 1.2840.114 350.1.13.10 4.2.7.2.686 [id number] [facility] 2023-09-17 00:00:00 2023-09-17 00:00:00 Refill Ashley [facility] [place]?[facility] 1.2840.114 350.1.13.10 4.2.7.2.686 [id number] 044 [id number] [facility] 2023-09-08 00:00:00 2023-09-08 00:00:00 Telephone Ira Ramirez Critical access hospital [facility] 1..840.114 350.1.13.10 4.2.7.2.686 [id number] 044 [id number] [facility] 2023-09-08 00:00:00 2023-09-08 00:00:00 Orders Only Doctor Unassigned, [facility] 1.840.114 350.1.13.10 4.2.7.2.686 [id number] [facility] 2023-09-08 00:00:00 2023-09-08 00:00:00 Telephone Ira Ramirez [facility] hospital[facility] 1..840.114 350.1.13.10 4.2.7.2.686 [id number] 044 [id number] [facility] 2023-09-01 15:45:00 2023-09-01 15:45:00 Outpatient DANIEL BENITEZ MITCHELL [facility] [id number] [facility] 2023-09-01 00:00:00 2023-09-01 00:00:00 Telephone Ira Ramirez Critical [facility] hospital [facility] 1..840.114 350.1.13.10 4.2.7.2.686 [id number] 044 [id number] [facility] 2023-09-01 00:00:00 2023-09-01 00:00:00 Telephone Ira Ramirez Critical access hospital [place]?[facility] 1..840.114 350.1.13.10 4.2.7.2.686 [id number] 044 [id number] [facility] 2023-08-30 00:00:00 2023-08-30 00:00:00 Telephone Ira Ramirez Critical access hospital [facility] 1.2840.114 350.1.13.10 4.2.7.2.686 [id number] 044 [id number] [facility] 2023-08-29 00:00:00 2023-08-29 00:00:00 Telephone Ira Ramirez Critical [facility] hospital [place] 1.2840.114 350.1.13.10 4.2.7.2.686 [id number] 044 [id number] [facility] 2023-08-29 00:00:00 2023-08-29 00:00:00 Telephone [facility] 1.2840.114 350.1.13.10 4.2.7.2.686 [id number] [facility] 2023-08-29 00:00:00 2023-08-29 00:00:00 Orders Only Doctor Unassigned, [facility] 1.2840.114 350.1.13.10 4.2.7.2.686 [id number] [facility] 2023-08-27 00:00:00 2023-08-27 00:00:00 [facility] 1.284.114 350.1.13.10 4.2.7.2.686 [id number] 044 [id number] [facility] 2023-08-24 00:00:00 2023-08-24 00:00:00 Telephone Ira Ramirez Critical access hospital [facility] 1.284.114 350.1.13.10 4.2.7.2.686 [id number] 044 [id number] [facility] 2023-08-20 00:00:00 2023-08-20 00:00:00 Refill [place], [facility] 1..840.114 350.1.13.10 4.2.7.2.686 [id number] 044 [id number] [facility] 2023-08-18 15:00:00 2023-08-18 15:00:00 Outpatient R DANIEL RANDOLPH [facility] [id number] [facility] 2023-08-14 00:00:00 2023-08-14 00:00:00 Refill Ashley [facility] 1.840.114 350.1.13.10 4.2.7.2.686 [id number] 044 [id number] [facility] 2023-08-13 12:40:14 2023-08-13 23:59:00 Outpatient R DANIEL RANDOLPH [facility] [id number] [facility] 2023-08-13 12:40:14 2023-08-13 23:59:00 Hospital Encounter Daniel Randolph [facility] 1.840.114 350.1.13.10 4.2.7.2.686 [id number] [id number] [facility] 2023-08-12 00:00:00 2023-08-12 00:00:00 Telephone [facility] 1.840.114 350.1.13.10 4.2.7.2.686 [id number] [facility] 2023-08-12 00:00:00 2023-08-12 00:00:00 Telephone Ira Ramirez Critical access hospital [facility] 1..840.114 350.1.13.10 4.2.7.2.686 [id number] [facility] 2023-08-11 11:45:00 2023-08-11 11:45:00 Outpatient R DANIEL RANDOLPH [facility] [id number] [facility] 2023-07-29 00:00:00 2023-07-29 00:00:00 Telephone Ira Ramirez [facility] 1.2.840.114 350.1.13.10 4.2.7.2.686 [id number] [facility] 2023-07-28 14:48:46 2023-07-28 23:59:00 Hospital Encounter RadhaDaniel [facility] 1..840.114 350.1.13.10 4.2.7.2.686 [id number] [facility] 2023-07-28 00:00:00 2023-07-28 23:59:00 Outpatient R DANIEL RANDOLPH [facility] [id number] [facility] 2023-07-26 00:00:00 2023-07-26 00:00:00 Outpatient R DANIEL RANDOLPH [facility] [id number] [facility] 2023-07-18 16:45:00 2023-07-18 17:00:00 Office Visit Daniel Randolph [facility] 1..840.114 350.1.13.10 4.2.7.2.686 [id number] [facility] 2023-07-18 16:45:00 2023-07-18 16:45:00 Outpatient R DANIEL RANDOLPH [facility] [id number] [facility] 2023-07-18 00:00:00 2023-07-18 00:00:00 Telephone Radha Daniel [facility] 1.2.840.114 350.1.13.10 4.2.7.2.686 [id number] [facility] 2023-07-18 00:00:00 2023-07-18 00:00:00 Orders Only Doctor Unassigned, [place] [facility] 1.2840.114 350.1.13.10 4.2.7.2.686 [id number] [facility] 2023-07-14 00:00:00 2023-07-14 00:00:00 Orders Only Doctor Unassigned, [place] [facility] 1.2840.114 350.1.13.10 4.2.7.2.686 [id number] [facility] 2023-07-14 00:00:00 2023-07-14 00:00:00 Telephone [facility] 1.2840.114 350.1.13.10 4.2.7.2.686 [id number] [id number] [facility] 2023-07-14 00:00:00 2023-07-14 00:00:00 Telephone Ashley [facility] 1.2840.114 350.1.13.10 4.2.7.2.686 [id number] [id number] [facility] 2023-07-13 00:00:00 2023-07-13 00:00:00 Telephone [facility] 1.2840.114 350.1.13.10 4.2.7.2.686 [id number] [facility] 2023-07-12 09:31:26 2023-07-12 23:59:00 Outpatient R DANIEL RANDOLPH [facility] [id number] [facility] 2023-07-12 09:31:26 2023-07-12 23:59:00 Hospital Encounter Daniel Randolph [facility] 1.2840.114 350.1.13.10 4.2.7.2.686 [id number] [facility] 2023-07-12 00:00:00 2023-07-12 00:00:00 Orders Only Doctor Unassigned, [facility] 1..840.114 350.1.13.10 4.2.7.2.686 [id number] [id number] [facility] 2023-07-06 00:00:00 2023-07-06 00:00:00 Ira Fernandez thang [facility] 1..840.114 350.1.13.10 4.2.7.2.686 [id number] 044 [id number] [facility] 2023-06-27 11:00:00 2023-06-27 11:00:00 Outpatient R DANIEL RANDOLPH MITCHELL [facility] [id number] [facility] 2023-06-20 15:00:00 2023-06-20 15:00:00 [facility] 1..840.114 350.1.13.10 4.2.7.2.686 [id number] [facility] 2023-06-20 15:00:00 2023-06-20 14:49:08 Outpatient R DANIEL RANDOLPH MITCHELL [facility] [id number] [facility] 2023-06-20 14:00:00 2023-06-20 14:00:00 Outpatient R CHRISTIANA POSADA [facility] [id number] [facility] 2023-06-17 00:00:00 2023-06-17 00:00:00 Eduardo Toro [facility] 1..840.114 350.1.13.10 4.2.7.2.686 [id number] [facility] 2023-06-16 11:15:00 2023-06-16 11:15:00 Outpatient R KRISTAELKA, IRA [facility] [id number] [facility] 2023-06-15 11:00:00 2023-06-15 11:52:30 Outpatient IRA AGUILAR [facility] [id number] [facility] 2023-06-15 11:00:00 2023-06-15 11:52:30 Office Visit Ira Ramirez [facility]?ROMMEL [facility] 1.2.840.114 350.1.13.10 4.2.7.2.686 [id number] 044 [id number] [facility] 2023-06-15 11:00:00 2023-06-15 11:00:00 Outpatient IRA AGUILAR [facility] [id number] [facility] 2023-06-15 00:00:00 2023-06-15 00:00:00 Telephone Ira Ramirez [facility]?ROMMEL [facility] 1.2.840.114 350.1.13.10 4.2.7.2.686 [id number] 044 [id number] [facility] 2023-06-15 00:00:00 2023-06-15 00:00:00 Telephone Ira Ramirez [facility]?ROMMEL [facility] 1.2.840.114 350.1.13.10 4.2.7.2.686 [id number] 044 [id number] [facility] 2023-06-15 00:00:00 2023-06-15 00:00:00 Orders Only Doctor Unassigned, [facility] 1.2840.114 350.1.13.10 4.2.7.2.686 [id number] [id number] [facility] 2023-06-13 09:43:33 2023-06-13 10:26:05 Outpatient SLAVA ROGERS [facility] [id number] [facility] 2023-06-10 00:00:00 2023-06-10 00:00:00 Nurse Triage [facility] 1.2840.114 350.1.13.10 4.2.7.2.686 [id number] 019 [id number] [facility] 2023-06-10 00:00:00 2023-06-10 00:00:00 Nurse Triage [facility] 1.2840.114 350.1.13.10 4.2.7.2.686 [id number] 019 [id number] [facility] 2023-06-10 00:00:00 2023-06-10 00:00:00 RefEduardo Cobb [facility] [place] 1.2840.114 350.1.13.10 4.2.7.2.686 [id number] [facility] 2023-06-06 08:30:00 2023-06-06 08:30:00 Outpatient R EDUARDO MORRISON YU [facility] [id number] [facility] 2023-06-06 00:00:00 2023-06-06 00:00:00 Refill Kristachongniru [facility] [place] 1..114 350.1.13.10 4.2.7.2.686 [id number] 044 [id number] [facility] 2023-05-27 00:00:00 2023-05-27 00:00:00 Refill Kristabill [facility] [place] 1.20.114 350.1.13.10 4.2.7.2.686 [id number] 044 [id number] [facility] 2023-05-27 00:00:00 2023-05-27 00:00:00 Refill Kristabill [facility] [place] 1.2840.114 350.1.13.10 4.2.7.2.686 [id number] 044 [id number] [facility] 2023-05-19 00:00:00 2023-05-19 00:00:00 Orders Only Doctor Unassigned, [facility] 1.2.840.114 350.1.13.10 4.2.7.2.686 [id number] [id number] [facility] 2023-05-16 00:00:00 2023-05-16 00:00:00 Telephone Ashley [facility] 1.2840.114 350.1.13.10 4.2.7.2.686 [id number] 044 [id number] [facility] 2023-04-28 00:00:00 2023-04-28 00:00:00 Orders Only Doctor Unassigned, [facility] 1.2.840.114 350.1.13.10 4.2.7.2.686 [id number] [id number] [facility] 2023-04-20 00:00:00 2023-04-20 00:00:00 Orders Only Doctor Unassigned, [facility] 1.2.840.114 350.1.13.10 4.2.7.2.686 [id number] [id number] [facility] 2023-04-18 00:00:00 2023-04-18 00:00:00 Telephone Jass [facility] 1.2.840.114 350.1.13.10 4.2.7.2.686 [id number] 044 [id number] [facility] 2023-04-18 00:00:00 2023-04-18 00:00:00 Orders Only Doctor Unassigned, [facility] 1.2.840.114 350.1.13.10 4.2.7.2.686 [id number] [id number] [facility] 2023-04-12 00:00:00 2023-04-12 00:00:00 Orders Only Doctor Unassigned, [facility] 1.2.840.114 350.1.13.10 4.2.7.2.686 [id number] [id number] [facility] 2023-04-12 00:00:00 2023-04-12 00:00:00 Telephone Ashley [facility] 1.2.840.114 350.1.13.10 4.2.7.2.686 [id number] 044 [id number] [facility] 2023-04-08 00:00:00 2023-04-08 00:00:00 Refill Ashley [facility] 1.2.840.114 350.1.13.10 4.2.7.2.686 [id number] 044 [id number] [facility] 2023-04-08 00:00:00 2023-04-08 00:00:00 Telephone Ashley [facility] 1.2.840.114 350.1.13.10 4.2.7.2.686 [id number] 044 [id number] [facility] 2023-03-22 22:02:00 2023-04-06 13:30:00 Inpatient 3 [place] [id number] 2023-03-29 21:39:00 2023-03-29 21:39:00 Outpatient Provider, Jared HCAPM RADI [id number] [facility] 2023-03-24 11:51:00 2023-03-24 11:51:00 Outpatient Leida Cuellar [facility]I [id number] [facility] 2023-03-23 00:00:00 2023-03-23 00:00:00 Transition of Care Breanna Caballero 1.2.840.114 350.1.13.10 4.2.7.2.686 [id number] [facility] 2023-03-12 01:21:00 2023-03-22 20:50:00 Inpatient U SARAH RIGO [facility] [id number] [facility] 2023-03-12 01:21:00 2023-03-22 20:50:00 Hospital Encounter Susan Ramirez, Rigo Arboleda [facility] 1.2.840.114 350.1.13.10 4.2.7.2.686 [id number] [id number] [facility] 2023-03-11 00:00:00 2023-03-11 00:00:00 Telephone Ashley [facility] 1.2840.114 350.1.13.10 4.2.7.2.686 [id number] 044 [id number] [facility] 2023-03-09 00:00:00 2023-03-09 00:00:00 Telephone Ashley [facility] 1.2840.114 350.1.13.10 4.2.7.2.686 [id number] 044 [id number] [facility] 2023-02-25 05:21:00 2023-03-03 17:50:00 Inpatient MARAH CORNEJO [facility] Cardiac ICU [id number] [facility] 2023-03-02 00:00:00 2023-03-02 00:00:00 Orders Only Doctor Unassigned, [facility] 1.2.840.114 350.1.13.10 4.2.7.2.686 [id number] [id number] [facility] 2023-02-24 00:00:00 2023-02-24 00:00:00 Orders Only Doctor Unassigned, [facility] 1..840.114 350.1.13.10 4.2.7.2.686 [id number] [id number] [facility] 2023-02-23 14:30:00 2023-02-23 14:30:00 Outpatient R ASHLEY IRA [facility] [id number] [facility] 2023-02-23 00:00:00 2023-02-23 00:00:00 Telephone Ashley Ira [facility] [place] 1..840.114 350.1.13.10 4.2.7.2.686 [id number] 044 [id number] [facility] 2023-02-21 11:08:00 2023-02-21 11:08:00 Outpatient Hector Burns [facility] [id number] [facility] 2023-02-19 11:32:00 2023-02-19 15:20:00 Inpatient EM Saqib Hall [facility] MEDI.01 [id number] [facility] 2023-02-11 18:53:00 2023-02-17 15:05:00 Inpatient ER REED FCO [facility] [id number] [facility] 2023-02-11 15:00:00 2023-02-11 15:00:00 Outpatient JUAN M MAY [facility] [id number] [facility] 2023-02-11 19:34:23 2023-02-11 00:00:00 Inpatient ER CARLYDoraENRIQUE [facility] [id number] [facility] 2023-02-09 09:00:00 2023-02-09 09:00:00 Outpatient EDUARDO OCONNOR YU [facility] [id number] [facility] 2023-02-07 00:00:00 2023-02-07 00:00:00 Orders Only Doctor Unassigned, [facility] 1..840.114 350.1.13.10 4.2.7.2.686 [id number] [id number] [facility] 2023-02-01 00:00:00 2023-02-01 00:00:00 [facility]ill [facility] 1.2.840.114 350.1.13.10 4.2.7.2.686 [id number] 044 [id number] [facility] 2023-01-21 10:00:00 2023-01-21 10:47:29 Outpatient R SINCERE EVERETT [facility] [id number] [facility] 2023-01-21 10:00:00 2023-01-21 10:15:00 Office Visit Sincere Everett [facility] [place]?[facility] 1.2.840.114 350.1.13.10 4.2.7.2.686 [id number] [facility] 2023-01-19 00:00:00 2023-01-19 00:00:00 Refill Kristabill Ira [facility] [place] 1.2.840.114 350.1.13.10 4.2.7.2.686 [id number] 044 [id number] [facility] 2023-01-12 09:45:00 2023-01-12 10:00:00 Office Visit Ira Ramirez [facility] [place] 1.2.840.114 350.1.13.10 4.2.7.2.686 [id number] 044 [id number] [facility] 2023-01-12 09:45:00 2023-01-12 09:22:43 Outpatient R IRA RAMIREZ [facility] [id number] [facility] 2023-01-07 00:00:00 2023-01-07 00:00:00 Refill Ira Ramirez [facility] [place] 1.2840.114 350.1.13.10 4.2.7.2.686 [id number] 044 [id number] [facility] 2023-01-05 00:00:00 2023-01-05 00:00:00 Refill [facility] 1.2840.114 350.1.13.10 4.2.7.2.686 [id number] 044 [id number] [facility] 2022-12-15 00:00:00 2022-12-15 00:00:00 Refill Ira Ramirez [facility] [place] 1.2840.114 350.1.13.10 4.2.7.2.686 [id number] 044 [id number] [facility] 2022-12-14 00:00:00 2022-12-14 00:00:00 Refill Ira Ramirez [facility] [place] 1.2840.114 350.1.13.10 4.2.7.2.686 [id number] 044 [id number] [facility] 2022-12-01 00:00:00 2022-12-01 00:00:00 Telephone Ira Ramirez [facility] [place] 1.2840.114 350.1.13.10 4.2.7.2.686 [id number] 044 [id number] [facility] 2022-11-25 00:00:00 2022-11-25 00:00:00 Telephone Ira Ramirez [facility] [place] 1.2840.114 350.1.13.10 4.2.7.2.686 [id number] 044 [id number] [facility] 2022-11-25 00:00:00 2022-11-25 00:00:00 Orders Only Doctor Unassigned, [facility] 1..114 350.1.13.10 4.2.7.2.686 [id number] [facility] 2022-11-17 11:15:00 2022-11-17 11:15:00 Office Visit Ira Ramirez [facility] [place]?[facility] 1.114 350.1.13.10 4.2.7.2.686 [id number] 044 [id number] [facility] 2022-11-17 11:15:00 2022-11-17 11:07:04 Outpatient R IRA RAMIREZ [facility] [id number] [facility] 2022-11-07 01:49:00 2022-11-11 16:10:00 Inpatient YOVANNY HART [facility] Medical ICU [id number] [facility] 2022-11-01 00:00:00 2022-11-01 00:00:00 Telephone Ira Ramirez [facility] hospital [place]?[facility] 1.84.114 350.1.13.10 4.2.7.2.686 [id number] 044 [id number] [facility] 2022-11-01 00:00:00 2022-11-01 00:00:00 Refill Ira Ramirez [facility] [place]?[facility] 1.284.114 350.1.13.10 4.2.7.2.686 [id number] 044 [id number] [facility] 2022-10-27 00:00:00 2022-10-27 00:00:00 Refill Mary Alice Galarza [facility] [place]?[facility] 1.84.114 350.1.13.10 4.2.7.2.686 [id number] 044 [id number] [facility] 2022-10-20 00:00:00 2022-10-20 00:00:00 Refill Ashley Ira [facility] [place] 1.84.114 350.1.13.10 4.2.7.2.686 [id number] 044 [id number] [facility] 2022-10-06 00:00:00 2022-10-06 00:00:00 Refill KristaIra khan [facility] [place] 1.84114 350.1.13.10 4.2.7.2.686 [id number] 044 [id number] [facility] 2022-10-01 15:30:00 2022-10-01 16:16:44 Outpatient R MARY ALICE GALARZA [facility] [id number] [facility] 2022-10-01 15:30:00 2022-10-01 16:16:44 [facility] 1.84.114 350.1.13.10 4.2.7.2.686 [id number] 044 [id number] [facility] 2022-10-01 00:00:00 2022-10-01 00:00:00 Orders Only Doctor Unassigned, [facility] 1.114 350.1.13.10 4.2.7.2.686 [id number] [id number] [facility] 2022-09-29 00:00:00 2022-09-29 00:00:00 Refill Eduardo Morrison [facility] [place] 1.84.114 350.1.13.10 4.2.7.2.686 [id number] [facility] 2022-09-23 00:00:00 2022-09-23 00:00:00 Refill Ira Ramirez [facility] [place]?[facility] 1.2840.114 350.1.13.10 4.2.7.2.686 [id number] 044 [id number] [facility] 2022-09-21 00:00:00 2022-09-21 00:00:00 Orders Only Doctor Unassigned, [facility] 1.2840.114 350.1.13.10 4.2.7.2.686 [id number] [id number] [facility] 2022-09-20 00:00:00 2022-09-20 00:00:00 Telephone Ashley [facility] 1.2840.114 350.1.13.10 4.2.7.2.686 [id number] 044 [id number] [facility] 2022-09-10 00:00:00 2022-09-10 00:00:00 Orders Only Doctor Unassigned, [facility] 1.2840.114 350.1.13.10 4.2.7.2.686 [id number] 009 [id number] [facility] 2022-09-09 00:00:00 2022-09-09 00:00:00 Refill Ashley [facility] 1.2840.114 350.1.13.10 4.2.7.2.686 [id number] 044 [id number] [facility] 2022-08-31 16:00:00 2022-08-31 16:00:00 Office Visit [facility] 1.2840.114 350.1.13.10 4.2.7.2.686 [id number] [facility] 2022-08-31 16:00:00 2022-08-31 15:59:36 Outpatient R REGINA WINKLER [facility] [id number] [facility] 2022-08-31 00:00:00 2022-08-31 00:00:00 Orders Only Doctor Unassigned, [facility] 1.2.840.114 350.1.13.10 4.2.7.2.686 [id number] 009 [id number] [facility] 2022-08-27 00:00:00 2022-08-27 00:00:00 Refill Ira Ramirez [facility] 1.2840.114 350.1.13.10 4.2.7.2.686 [id number] 044 [id number] [facility] 2022-08-27 00:00:00 2022-08-27 00:00:00 Refill Akash Martinez [facility] 1.2840.114 350.1.13.10 4.2.7.2.686 [id number] 044 [id number] [facility] 2022-08-25 00:00:00 2022-08-25 00:00:00 Telephone Ashley [facility] 1.2840.114 350.1.13.10 4.2.7.2.686 [id number] 044 [id number] [facility] 2022-08-25 00:00:00 2022-08-25 00:00:00 Orders Only Doctor Unassigned, [facility] 1.2840.114 350.1.13.10 4.2.7.2.686 [id number] [id number] [facility] 2022-08-14 00:00:00 2022-08-14 00:00:00 Refill Ashley [facility] 1.2840.114 350.1.13.10 4.2.7.2.686 [id number] 044 [id number] [facility] 2022-08-13 11:00:00 2022-08-13 11:26:30 Outpatient R MARY ALICE GALARZA [facility] [id number] [facility] 2022-08-13 11:00:00 2022-08-13 11:26:30 [facility] [place] 1.2.840.114 350.1.13.10 4.2.7.2.686 [id number] 044 [id number] [facility] 2022-08-02 00:00:00 2022-08-02 00:00:00 Telephone Ira Ramirez [facility] [place] 1.2.840.114 350.1.13.10 4.2.7.2.686 [id number] 044 [id number] [facility] 2022-08-01 00:00:00 2022-08-01 00:00:00 Orders Only Doctor Unassigned, [facility] 1.2.840.114 350.1.13.10 4.2.7.2.686 [id number] [id number] [facility] 2022-07-27 14:00:00 2022-07-27 14:30:00 Office Visit Ira Ramirez [facility] [place] 1.2.840.114 350.1.13.10 4.2.7.2.686 [id number] 044 [id number] [facility] 2022-07-27 14:00:00 2022-07-27 14:00:00 Outpatient R IRA RAMIREZ [facility] [id number] [facility] 2022-07-27 13:30:00 2022-07-27 13:30:00 Outpatient R LAINEY CUELLO [facility] [id number] [facility] 2022-07-25 00:00:00 2022-07-25 00:00:00 Refill Ira Ramirez [facility] [place] 1..840.114 350.1.13.10 4.2.7.2.686 [id number] 044 [id number] [facility] 2022 00:00:00 2022 00:00:00 Telephone Ira Ramirez [facility] [place]?[facility] 1.2840.114 350.1.13.10 4.2.7.2.686 [id number] 044 [id number] [facility] 2022 00:00:00 2022 00:00:00 Refill Ira Ramirez [facility] [place]?[facility] 1.840.114 350.1.13.10 4.2.7.2.686 [id number] 044 [id number] [facility] 2022-07-15 00:00:00 2022-07-15 00:00:00 Refill Ira Ramirez [facility] [place] 1.840.114 350.1.13.10 4.2.7.2.686 [id number] 044 [id number] [facility] 2022-07-04 00:00:00 2022-07-04 00:00:00 Darrell Ramirez [facility] [place]?[facility] 1.840.114 350.1.13.10 4.2.7.2.686 [id number] 044 [id number] [facility] 2022-06-25 09:40:00 2022-06-25 10:22:52 Outpatient R ARI WASHINGTON [facility] [id number] [facility] 2022-06-25 09:40:00 2022-06-25 10:00:00 Urgent Care Ari [place] Unknown, Attending [facility] 1.2.840.114 350.1.13.10 4.2.7.2.686 [id number] [facility] 2022-06-25 00:00:00 2022-06-25 00:00:00 Orders Only Doctor Unassigned, [facility] 1.2840.114 350.1.13.10 4.2.7.2.686 [id number] [id number] [facility] 2022-06-21 08:00:00 2022-06-21 10:15:39 Outpatient R [facility] [id number] [facility] 2022-06-21 08:00:00 2022-06-21 08:10:00 Imm/Inj Visit Vaccine, Ang Db Cbc Claudio Ramirez [facility] 1.840.114 350.1.13.10 4.2.7.2.686 [id number] 044 [id number] [facility] 2022-06-20 00:00:00 2022-06-20 00:00:00 Darrell Ramirez [facility] 1.20.114 350.1.13.10 4.2.7.2.686 [id number] 044 [id number] [facility] 2022-06-16 00:00:00 2022-06-16 00:00:00 Darrell Ramirez [facility] 1.2840.114 350.1.13.10 4.2.7.2.686 [id number] 044 [id number] [facility] 2022-06-15 00:00:00 2022-06-15 00:00:00 Orders Only Doctor Unassigned, [facility] 1.2840.114 350.1.13.10 4.2.7.2.686 [id number] [facility] 2022-06-13 00:00:00 2022-06-13 00:00:00 Refill [facility] 1..840.114 350.1.13.10 4.2.7.2.686 [id number] 044 [id number] [facility] 2022-06-10 10:23:44 2022-06-10 11:09:22 Outpatient JEANNE LEWIS MDA, MDA [id number] [facility] 2022-06-06 00:00:00 2022-06-06 00:00:00 Refill [facility] [place] 1..840.114 350.1.13.10 4.2.7.2.686 [id number] 044 [id number] [facility] 2022-05-31 00:00:00 2022-05-31 00:00:00 Refill Kristabill [facility] [place] 1..840.114 350.1.13.10 4.2.7.2.686 [id number] 044 [id number] [facility] 2022-05-12 13:30:00 2022-05-12 13:30:00 Office Visit Ashley [facility] [place] 1..840.114 350.1.13.10 4.2.7.2.686 [id number] 044 [id number] [facility] 2022-05-12 13:30:00 2022-05-12 13:29:48 Outpatient IRA [facility]AR [facility] [id number] [facility] 2022-05-09 00:00:00 2022-05-09 00:00:00 Refill Ashley [facility] [place] 1..840.114 350.1.13.10 4.2.7.2.686 [id number] 044 [id number] [facility] 2022-05-06 00:00:00 2022-05-06 00:00:00 Telephone Ira [facility] [place] 1.2840.114 350.1.13.10 4.2.7.2.686 [id number] 044 [id number] [facility] 2022-05-04 00:00:00 2022-05-04 00:00:00 Orders Only Doctor Unassigned, [facility] 1.20.114 350.1.13.10 4.2.7.2.686 [id number] [facility] 2022-05-04 00:00:00 2022-05-04 00:00:00 Telephone Ira [facility] [place] 1.0.114 350.1.13.10 4.2.7.2.686 [id number] 044 [id number] [facility] 2022-05-02 00:00:00 2022-05-02 00:00:00 Refill Ira [facility] [place] 1..114 350.1.13.10 4.2.7.2.686 [id number] 044 [id number] [facility] 2022-04-06 00:00:00 2022-04-06 00:00:00 Refill Ira [facility] [place] 1.0.114 350.1.13.10 4.2.7.2.686 [id number] 044 [id number] [facility] 2022-04-05 00:00:00 2022-04-05 00:00:00 Refill Ira [facility] [place] 1.2840.114 350.1.13.10 4.2.7.2.686 [id number] 044 [id number] [facility] 2022-03-29 00:00:00 2022-03-29 00:00:00 [facility] 1.2840.114 350.1.13.10 4.2.7.2.686 [id number] 044 [id number] [facility] 2022-03-26 00:00:00 2022-03-26 00:00:00 Telephone Eduardo Morrison [facility] [place]IAH?[facility] 1.84.114 350.1.13.10 4.2.7.2.686 [id number] 220 [id number] [facility] 2022-03-22 00:00:00 2022-03-22 00:00:00 Ira Fernandez Critical access hospital [place]?[facility] 1.84.114 350.1.13.10 4.2.7.2.686 [id number] 044 [id number] [facility] 2022-03-22 00:00:00 2022-03-22 00:00:00 Telephone Tamiko [facility] [place]IAH?ROM[facility] 1.84.114 350.1.13.10 4.2.7.2.686 [id number] 220 [id number] [facility] 2022-03-22 00:00:00 2022-03-22 00:00:00 Telephone [facility] 1.284.114 350.1.13.10 4.2.7.2.686 [id number] 220 [id number] [facility] 2022-03-19 00:00:00 2022-03-19 00:00:00 Telephone TamikoEduardo [facility] 1.2840.114 350.1.13.10 4.2.7.2.686 [id number] 220 [id number] [facility] 2022-03-10 12:15:00 2022-03-10 12:38:57 Fill Manager Visit Lab, Elian - Shimon Tamiko [facility] 1..840.114 350.1.13.10 4.2.7.2.686 [id number] [facility] 2022-03-10 12:15:00 2022-03-10 12:15:00 Outpatient R EDUARDO MORRISON [facility] [id number] [facility] 2022-03-10 11:30:00 2022-03-10 12:08:55 Office Visit Tamiko [facility] 1..840.114 350.1.13.10 4.2.7.2.686 [id number] 220 [id number] [facility] 2022-03-10 11:30:00 2022-03-10 12:08:55 Outpatient R EDUARDO MORRISON [facility] [id number] [facility] 2022-03-07 00:00:00 2022-03-07 00:00:00 Darrell Ramirez [facility] 1..840.114 350.1.13.10 4.2.7.2.686 [id number] 044 [id number] [facility] 2022-03-05 00:00:00 2022-03-05 00:00:00 Darrell Ramirez [facility] 1..840.114 350.1.13.10 4.2.7.2.686 [id number] 044 [id number] [facility] 2022-03-05 00:00:00 2022-03-05 00:00:00 Orders Only Doctor Unassigned, [facility] 1.2840.114 350.1.13.10 4.2.7.2.686 [id number] [facility] 2022-03-01 00:00:00 2022-03-01 00:00:00 Refill Ashley [facility] [place]?[facility] 1.2840.114 350.1.13.10 4.2.7.2.686 [id number] 044 [id number] [facility] 2022-02-23 00:00:00 2022-02-23 00:00:00 Refill Ashley [facility] [place]?[facility] 1.2840.114 350.1.13.10 4.2.7.2.686 [id number] 044 [id number] [facility] 2022-02-23 00:00:00 2022-02-23 00:00:00 Refill Ashley [facility] [place]?[facility] 1.840.114 350.1.13.10 4.2.7.2.686 [id number] 044 [id number] [facility] 2022-02-15 00:00:00 2022-02-15 00:00:00 Telephone Ira Ramirez Critical access hospital [place]?[facility] 1.2840.114 350.1.13.10 4.2.7.2.686 [id number] 044 [id number] [facility] 2022-02-11 00:00:00 2022-02-11 00:00:00 Refill Ira Ramirez Critical access hospital [place]?[facility] 1.2840.114 350.1.13.10 4.2.7.2.686 [id number] 044 [id number] [facility] 2022-02-11 00:00:00 2022-02-11 00:00:00 Orders Only Doctor Unassigned, [facility] 1.840.114 350.1.13.10 4.2.7.2.686 [id number] [facility] 2022-02-08 12:00:00 2022-02-08 12:00:00 Outpatient R TAMIKO EDUARDO EDUARDO MORRISON [facility] [id number] [facility] 2022-02-05 11:00:00 2022-02-05 11:00:00 Outpatient R IRA RAMIREZ [facility] [id number] [facility] 2022-01-29 16:00:00 2022-01-29 16:30:00 Telemedici ne Visit Ashley [facility] 1.840.114 350.1.13.10 4.2.7.2.686 [id number] 044 [id number] [facility] 2022-01-29 16:00:00 2022-01-29 16:00:00 Outpatient R IRA RAMIREZ [facility] [id number] [facility] 2022-01-29 00:00:00 2022-01-29 00:00:00 Orders Only Doctor Unassigned, [facility] 1.840.114 350.1.13.10 4.2.7.2.686 [id number] [id number] [facility] 2022-01-28 00:00:00 2022-01-28 00:00:00 Refill Ashley [facility] 1.840.114 350.1.13.10 4.2.7.2.686 [id number] 044 [id number] [facility] 2022-01-27 00:00:00 2022-01-27 00:00:00 Telephone Ira Ramirez [facility] 1.2840.114 350.1.13.10 4.2.7.2.686 [id number] 044 [id number] [facility] 2022-01-26 00:00:00 2022-01-26 00:00:00 Telephone KristaIra khan Critical access hospital [place]?[facility] 1..840.114 350.1.13.10 4.2.7.2.686 [id number] 044 [id number] [facility] 2022-01-25 10:15:00 2022-01-25 10:15:00 Outpatient R IRA RAMIREZ [facility] [id number] [facility] 2022-01-22 00:00:00 2022-01-22 00:00:00 Telephone KristaIra khan [facility] hospital[facility] 1..840.114 350.1.13.10 4.2.7.2.686 [id number] 044 [id number] [facility] 2022-01-21 00:00:00 2022-01-21 00:00:00 Refill KristaIra khan Critical access hospitalE?[facility] 1.2.840.114 350.1.13.10 4.2.7.2.686 [id number] 044 [id number] [facility] 2022-01-20 11:30:00 2022-01-20 11:45:00 Laboratory Only Only, Ang Db Test Dago [facility] 1..840.114 350.1.13.10 4.2.7.2.686 [id number] [facility] 2022-01-20 11:30:00 2022-01-20 11:30:00 Outpatient R NETTA LOZA [facility] [id number] [facility] 2022-01-20 00:00:00 2022-01-20 00:00:00 Telephone Ira Ramirez [facility] N[facility] BUILDING 1.2.840.114 350.1.13.10 4.2.7.2.686 [id number] 044 [id number] [facility] 2022-01-20 00:00:00 2022-01-20 00:00:00 Refjimbo Ramirez [facility]EL [facility] OFFICE BUILDING 1.2840.114 350.1.13.10 4.2.7.2.686 [id number] 044 [id number] [facility] 2022-01-19 00:00:00 2022-01-19 00:00:00 Telephone Ira Ramirez [facility]EL [facility] OFFICE BUILDING 1.2.840.114 350.1.13.10 4.2.7.2.686 [id number] 044 [id number] [facility] 2022-01-19 00:00:00 2022-01-19 00:00:00 Orders Only Doctor Unassigned, [facility] 1.2840.114 350.1.13.10 4.2.7.2.686 [id number] [facility] 2022-01-15 00:00:00 2022-01-15 00:00:00 Darrell Ramirez [facility] OFFICE BUILDING 1.2840.114 350.1.13.10 4.2.7.2.686 [id number] 044 [id number] [facility] 2022-01-15 00:00:00 2022-01-15 00:00:00 Orders Only Doctor Unassigned, [facility] 1.2840.114 350.1.13.10 4.2.7.2.686 [id number] [facility] 2022-01-08 00:00:00 2022-01-08 00:00:00 Orders Only Doctor Unassigned, [facility] 1.84114 350.1.13.10 4.2.7.2.686 [id number] [id number] [facility] 2022-01-04 00:00:00 2022-01-04 00:00:00 Telephone Ira Ramirez [facility] 1.84.114 350.1.13.10 4.2.7.2.686 [id number] 044 [id number] [facility] 2022-01-01 11:30:00 2022-01-01 11:45:00 Office Visit Ira [facility] 1.84.114 350.1.13.10 4.2.7.2.686 [id number] 044 [id number] [facility] 2022-01-01 11:30:00 2022-01-01 11:40:03 Outpatient IRA AGUILAR [facility] [id number] [facility] 2022-01-01 11:30:00 2022-01-01 11:30:00 Outpatient IRA AGUILAR [facility] [id number] [facility] 2021-12-29 00:00:00 2021-12-29 00:00:00 Transition of Care Parminder Kee 1.84.114 350.1.13.10 4.2.7.2.686 [id number] [facility] 2021-12-29 00:00:00 2021-12-29 00:00:00 Refill Ashley [facility] 1.84.114 350.1.13.10 4.2.7.2.686 [id number] 044 [id number] [facility] 2021-12-24 06:50:00 2021-12-28 18:30:00 Inpatient RYLEE READ [facility] [id number] [facility] 2021-12-24 06:50:00 2021-12-28 18:30:00 Hospital Encounter Linh Villavicencio Rylee [facility] 1..840.114 350.1.13.10 4.2.7.2.686 [id number] 080 [id number] [facility] 2021-12-24 00:00:00 2021-12-24 00:00:00 Telephone JassIra marrufo [facility] 1..840.114 350.1.13.10 4.2.7.2.686 [id number] 044 [id number] [facility] 2021-12-23 10:30:00 2021-12-23 10:31:57 Outpatient R EDUARDO MORRISON TAMIKO [facility] [id number] [facility] 2021-12-23 10:30:00 2021-12-23 10:31:57 Office Visit Tam[facility] 1..840.114 350.1.13.10 4.2.7.2.686 [id number] [facility] 2021-12-22 15:15:00 2021-12-22 15:34:31 Outpatient R IRA RAMIREZ [facility] [id number] [facility] 2021-12-22 15:15:00 2021-12-22 15:30:00 Office Visit JassIra marrufo [facility] 1..840.114 350.1.13.10 4.2.7.2.686 [id number] 044 [id number] [facility] 2021-12-22 15:15:00 2021-12-22 15:15:00 Outpatient R IRA RAMIREZ [facility] [id number] [facility] 2021-12-22 15:15:00 2021-12-22 15:15:00 Outpatient R ASHLEY IRA [facility] [id number] [facility] 2021-12-10 00:00:00 2021-12-10 00:00:00 Orders Only Doctor Unassigned, [facility] 1.2840.114 350.1.13.10 4.2.7.2.686 [id number] [facility] 2021-12-01 00:00:00 2021-12-01 00:00:00 Telephone Ira Ramirez Critical access hospital [place]?[facility] 1.84.114 350.1.13.10 4.2.7.2.686 [id number] 044 [id number] [facility] 2021-12-01 00:00:00 2021-12-01 00:00:00 Telephone Ira Ramirez Critical access hospital [place]?[facility] 1.840.114 350.1.13.10 4.2.7.2.686 [id number] 044 [id number] [facility] 2021-11-29 00:00:00 2021-11-29 00:00:00 Refill Ira Ramirez Critical [facility] hospital [place]?[facility] 1.840.114 350.1.13.10 4.2.7.2.686 [id number] 044 [id number] [facility] 2021-11-27 00:00:00 2021-11-27 00:00:00 Telephone Ira Ramirez Critical [facility] hospital [place]?[facility] 1.84.114 350.1.13.10 4.2.7.2.686 [id number] 044 [id number] [facility] 2021-11-27 00:00:00 2021-11-27 00:00:00 Orders Only Doctor Unassigned, [facility] 1.2840.114 350.1.13.10 4.2.7.2.686 [id number] [facility] 2021-11-26 00:00:00 2021-11-26 00:00:00 Telephone Ira Ramirez [facility]ILD[facility] 1.2.840.114 350.1.13.10 4.2.7.2.686 [id number] 044 [id number] [facility] 2021-11-16 17:15:00 2021-11-18 11:54:00 Inpatient EM Claus, Oladipo HCAPM INTE.02 [id number] [facility] 2021-11-16 17:15:00 2021-11-18 11:54:00 Inpatient EM Claus, Oladipo HCAPM INTE.02 [id number] [facility] 2021-11-16 17:15:00 2021-11-18 11:54:00 Inpatient EM Claus, Oladipo HCAPM INTE.02 [id number] 23 [facility] 2021-11-18 00:00:00 2021-11-18 00:00:00 Telephone Ira Ramirez [facility] BUILD[facility] 1.2.840.114 350.1.13.10 4.2.7.2.686 [id number] 044 [id number] [facility] 2021-11-17 00:00:00 2021-11-17 00:00:00 Orders Only Doctor Unassigned, [facility] 1.2.840.114 350.1.13.10 4.2.7.2.686 [id number] [facility] 2021-11-16 00:56:00 2021-11-16 00:56:00 Outpatient Jose Mcfarlane HCACL LABO [id number] 95 [facility] 2021-11-16 00:00:00 2021-11-16 00:00:00 Telephone Ira Ramirez [facility] hospital [place]?[facility] 1.2840.114 350.1.13.10 4.2.7.2.686 [id number] 044 [id number] [facility] 2021-11-13 00:00:00 2021-11-13 00:00:00 Refill Ira Ramirez [facility] [place]?[facility] 1.2840.114 350.1.13.10 4.2.7.2.686 [id number] 044 [id number] [facility] 2021-10-27 00:00:00 2021-10-27 00:00:00 Telephone Ira Ramirez [facility] hospital [place]?[facility] 1.2840.114 350.1.13.10 4.2.7.2.686 [id number] 044 [id number] [facility] 2021-10-27 00:00:00 2021-10-27 00:00:00 Orders Only Doctor Unassigned, [facility] 1.840.114 350.1.13.10 4.2.7.2.686 [id number] [facility] 2021-10-23 00:00:00 2021-10-23 00:00:00 Telephone Ira Ramirez Critical access hospital [place]?[facility] 1.0.114 350.1.13.10 4.2.7.2.686 [id number] 044 [id number] [facility] 2021-10-22 00:00:00 2021-10-22 00:00:00 Refill Ira Ramirez Critical access hospital [facility] OFFICE BUILDING ONE 1.840.114 350.1.13.10 4.2.7.2.686 [id number] 044 [id number] [facility] 2021-10-10 22:19:00 2021-10-12 14:18:00 Inpatient EM Jose Mcfarlane HCAPM INTE.02 [id number] [facility] 2021-10-09 23:18:00 2021-10-09 23:18:00 Outpatient Rome Tyler HCACL LABO [id number] 12 [facility] 2021-10-05 10:03:00 2021-10-05 15:34:00 Emergency EM Jyoti Andrew HCAPM NAHED [id number] [facility] 2021-10-05 12:59:00 2021-10-05 12:59:00 Outpatient Jyoti Andrew HCACL LABO [id number] 60 [facility] 2021-09-30 11:27:09 2021-09-30 11:38:00 Hospital Encounter Kristachongniru [facility] BUILD[facility] 1.2.840.114 350.1.13.10 4.2.7.2.686 [id number] [facility] 2021-09-30 11:00:00 2021-09-30 11:27:26 Office Visit Kristachongniru [facility] BUILD[facility] 1.2.840.114 350.1.13.10 4.2.7.2.686 [id number] 044 [id number] [facility] 2021-09-30 11:00:00 2021-09-30 11:27:26 Outpatient R IRA RAMIREZ [facility] [id number] [facility] 2021-09-30 11:00:00 2021-09-30 11:00:00 Outpatient IRA AGUILAR [facility] [id number] [facility] 2021-09-30 00:00:00 2021-09-30 00:00:00 Telephone Ashley [facility] BUILD[facility] 1.2.840.114 350.1.13.10 4.2.7.2.686 [id number] [id number] [facility] 2021-09-23 00:00:00 2021-09-23 00:00:00 Refill Ira Ramirez Critical access hospital [facility] OFFICE BUILDING ONE 1.84.114 350.1.13.10 4.2.7.2.686 [id number] 044 [id number] [facility] 2021-09-22 00:00:00 2021-09-22 00:00:00 Orders Only Doctor Unassigned, [facility] 1.114 350.1.13.10 4.2.7.2.686 [id number] [id number] [facility] 2021-09-02 00:00:00 2021-09-02 00:00:00 Orders Only Doctor Unassigned, [facility] 1.114 350.1.13.10 4.2.7.2.686 [id number] [id number] [facility] 2021-08-24 14:00:00 2021-08-24 14:16:26 Office Visit Ira Ramirez [facility] 1..840.114 350.1.13.10 4.2.7.2.686 [id number] 044 [id number] [facility] 2021-08-24 14:00:00 2021-08-24 14:00:00 Outpatient IRA AGUILAR [facility] [id number] [facility] 2021-08-17 11:30:00 2021-08-17 23:59:00 Hospital Encounter Ashley [facility] 1..840.114 350.1.13.10 4.2.7.2.686 [id number] [facility] 2021-08-17 11:00:00 2021-08-17 11:35:09 Outpatient IRA AGUILAR [facility] [id number] [facility] 2021-08-17 11:00:00 2021-08-17 11:15:00 Office Visit Ira Ramirez [facility] 1..840.114 350.1.13.10 4.2.7.2.686 [id number] 044 [id number] [facility] 2021-08-17 11:00:00 2021-08-17 11:00:00 Outpatient R IRA RAMIREZ [facility] [id number] [facility] 2021-08-17 00:00:00 2021-08-17 00:00:00 Telephone Ira Ramirez [facility] hospital [facility] 1..840.114 350.1.13.10 4.2.7.2.686 [id number] 044 [id number] [facility] 2021-08-17 00:00:00 2021-08-17 00:00:00 Telephone Ira Ramirez Critical [facility] hospital [facility] 1.840.114 350.1.13.10 4.2.7.2.686 [id number] 044 [id number] [facility] 2021-07-20 00:00:00 2021-07-20 00:00:00 Refill Ashley [facility] OFFICE BUILDING ONE 1.84.114 350.1.13.10 4.2.7.2.686 [id number] 044 [id number] [facility] 2021-07-04 00:00:00 2021-07-04 00:00:00 Refill Ira Ramirez [facility] OFFICE BUILDING ONE 1.84.114 350.1.13.10 4.2.7.2.686 [id number] [id number] [facility] 2021-06-22 13:10:00 2021-06-22 13:10:00 Outpatient DENYS GOMEZ [facility] [id number] [facility] 2021-06-22 13:00:00 2021-06-22 13:00:00 Outpatient Duy RAMIREZ IRA [facility] [id number] [facility] 2021-06-22 12:57:13 2021-06-22 12:57:20 Imm/Inj Visit Nurse, Nannette Pomya Immuniz[facility] Denys Cain [facility] BUILDING 1..840.114 350.1.13.10 4.2.7.2.686 [id number] [facility] 2021-06-08 08:34:24 2021-06-08 09:59:26 Outpatient JEANNE LEWIS [facility] [id number] [facility] 2021-06-03 00:00:00 2021-06-03 00:00:00 RefIra Baca [facility] OFFICE BUILDING ONE 1..840.114 350.1.13.10 4.2.7.2.686 [id number] 044 [id number] [facility] 2021-05-13 00:00:00 2021-05-13 00:00:00 Shila Ramirez [facility] OFF[facility] BUILDING 1..840.114 350.1.13.10 4.2.7.2.686 [id number] 044 [id number] [facility] 2021-05-11 00:00:00 2021-05-11 00:00:00 Refjimbo Ramirez [facility] OFFICE BUILDING ONE 1..840.114 350.1.13.10 4.2.7.2.686 [id number] 044 [id number] [facility] 2021-05-06 00:00:00 2021-05-06 00:00:00 Darrell Ramirez [facility] Office Building One .114 350.1.13.10 4.2.7.2.686 [id number] 044 [id number] [facility] 2021-04-07 00:11:00 2021-04-16 19:33:00 Inpatient EM Mandy Devlin HCAPM INTE.02 [id number] 41 [facility] 2021-04-07 01:04:00 2021-04-07 01:04:00 Outpatient Mandy Devlin HCACL LABO [id number] 33 [facility] 2021-03-30 00:00:00 2021-03-30 00:00:00 Orders Only Doctor Unassigned, [facility] 1.114 350.1.13.10 4.2.7.2.686 [id number] [facility] 2021-03-16 00:00:00 2021-03-16 00:00:00 Refjimbo Ramirez [facility] Office Building One .114 350.1.13.10 4.2.7.2.686 [id number] 044 [id number] [facility] 2021-03-09 00:00:00 2021-03-09 00:00:00 Orders Only Doctor Unassigned, [facility] .114 350.1.13.10 4.2.7.2.686 [id number] [facility] 2021-03-03 00:00:00 2021-03-03 00:00:00 Darrell Ramirez [facility] Office Building One .114 350.1.13.10 4.2.7.2.686 [id number] 044 [id number] [facility] 2021-03-03 00:00:00 2021-03-03 00:00:00 Darrell Ramirez [facility] Office Building One 1.114 350.1.13.10 4.2.7.2.686 [id number] 044 [id number] [facility] 2021-03-02 00:00:00 2021-03-02 00:00:00 Orders Only Doctor Unassigned, [facility] 1.114 350.1.13.10 4.2.7.2.686 [id number] [facility] 2021-02-27 15:44:12 2021-02-27 16:22:41 Office Visit Ashley [facility] Nehemiah?[facility] 1.114 350.1.13.10 4.2.7.2.686 [id number] [facility] 2021-02-27 16:00:00 2021-02-27 16:00:00 Outpatient R IRA RAMIREZ [facility] [id number] [facility] 2021-02-23 00:00:00 2021-02-23 00:00:00 Refill Ahsley [facility] Office Building One .114 350.1.13.10 4.2.7.2.686 [id number] 044 [id number] [facility] 2021-02-16 00:00:00 2021-02-16 00:00:00 Telephone JassniruIra [facility] Office Building One .114 350.1.13.10 4.2.7.2.686 [id number] [facility] 2021-02-05 00:00:00 2021-02-05 00:00:00 Refill Kristachongniru [facility] Office Building One 1.114 350.1.13.10 4.2.7.2.686 [id number] [id number] [facility] 2021-01-21 00:00:00 2021-01-21 00:00:00 Darrell Ramirez [facility] Office Building One 1.0.114 350.1.13.10 4.2.7.2.686 [id number] [facility] 2021-01-07 00:00:00 2021-01-07 00:00:00 Darrell Ramirez [facility] Office Building One 1.0.114 350.1.13.10 4.2.7.2.686 [id number] 044 [id number] [facility] 2021-01-02 00:00:00 2021-01-02 00:00:00 Darrell Ramirez [facility] Office Building One 1..114 350.1.13.10 4.2.7.2.686 [id number] [id number] [facility] 2020-12-27 00:00:00 2020-12-27 00:00:00 Darrell Ramirez [facility] Office Building One ..114 350.1.13.10 4.2.7.2.686 [id number] [id number] [facility] 2020-12-23 00:00:00 2020-12-23 00:00:00 Orders Only Doctor Unassigned, [facility] 1.0.114 350.1.13.10 4.2.7.2.686 [id number] [facility] 2020-12-22 00:00:00 2020-12-22 00:00:00 Darrell Ramirez [facility] Office Building One 1..114 350.1.13.10 4.2.7.2.686 [id number] [id number] [facility] 2020-12-15 00:00:00 2020-12-15 00:00:00 Telephone Ashley [facility] Office Building One 1.0.114 350.1.13.10 4.2.7.2.686 [id number] 044 [id number] [facility] 2020-12-13 00:00:00 2020-12-13 00:00:00 Orders Only Doctor Unassigned, [facility] 1.0.114 350.1.13.10 4.2.7.2.686 [id number] [facility] 2020-12-10 00:00:00 2020-12-10 [facility]:00[facility] 1..114 350.1.13.10 4.2.7.2.686 [id number] 044 [id number] [facility] 2020-12-03 00:00:00 2020-12-03 00:00:00 Refill [facility] Office Building One 1.0.114 350.1.13.10 4.2.7.2.686 [id number] 044 [id number] [facility] 2020-11-27 00:00:00 2020-11-27 00:00:00 Telephone [facility] Office Building One .0.114 350.1.13.10 4.2.7.2.686 [id number] 044 [id number] [facility] 2020-11-25 00:00:00 2020-11-25 00:00:00 Orders Only Doctor Unassigned, [facility] 1.0.114 350.1.13.10 4.2.7.2.686 [id number] 009 [id number] [facility] 2020-11-24 00:00:00 2020-11-24 00:00:00 Refill KristachongIra marrufo [facility] Office Building One 1..114 350.1.13.10 4.2.7.2.686 [id number] 044 [id number] [facility] 2020-11-10 00:00:00 2020-11-10 00:00:00 Orders Only Doctor Unassigned, [facility] 1.0.114 350.1.13.10 4.2.7.2.686 [id number] 009 [id number] [facility] 2020-11-08 00:00:00 2020-11-08 00:00:00 Refjimbo [facility] Office Building One 1.0.114 350.1.13.10 4.2.7.2.686 [id number] 044 [id number] [facility] 2020-11-04 00:00:00 2020-11-04 00:00:00 Telephone [facility] Office Building One 1..114 350.1.13.10 4.2.7.2.686 [id number] 044 [id number] [facility] 2020-10-31 00:00:00 2020-10-31 00:00:00 Refill Ira Ramirez [facility] Office Building One 1.0.114 350.1.13.10 4.2.7.2.686 [id number] 044 [id number] [facility] 2020-10-20 10:31:33 2020-10-20 10:46:33 Office Visit Ira Ramirez [facility] Office Building One 1.0.114 350.1.13.10 4.2.7.2.686 [id number] 044 [id number] [facility] 2020-10-20 10:45:00 2020-10-20 10:45:00 Outpatient R IRA RAMIREZ [facility] [id number] [facility] 2020-10-14 00:00:00 2020-10-14 00:00:00 Orders Only Doctor Unassigned, [facility] .0.114 350.1.13.10 4.2.7.2.686 [id number] 009 [id number] [facility] 2020-10-14 00:00:00 2020-10-14 00:00:00 Ira Nation [facility] Office Building One 1..114 350.1.13.10 4.2.7.2.686 [id number] 044 [id number] [facility] 2020-09-28 00:00:00 2020-09-28 00:00:00 Refill Ira Ramirez [facility] Office Building One 1..114 350.1.13.10 4.2.7.2.686 [id number] 044 [id number] [facility] 2020-09-26 00:00:00 2020-09-26 00:00:00 Orders Only Doctor Unassigned, [facility] ..114 350.1.13.10 4.2.7.2.686 [id number] 009 [id number] [facility] 2020-08-30 00:00:00 2020-08-30 00:00:00 Refill [facility] Office Building One ..114 350.1.13.10 4.2.7.2.686 [id number] 044 [id number] [facility] 2020-08-20 00:00:00 2020-08-20 00:00:00 Orders Only Doctor Unassigned, [facility] 1..114 350.1.13.10 4.2.7.2.686 [id number] 009 [id number] [facility] 2020-08-16 00:00:00 2020-08-16 00:00:00 Telephone Ira Ramirez [facility] Office Building One .0.114 350.1.13.10 4.2.7.2.686 [id number] 044 [id number] [facility] 2020-08-11 12:00:00 2020-08-11 12:00:00 Outpatient DUANE VARGAS [facility] [id number] [facility] 2020-08-11 00:00:00 2020-08-11 00:00:00 Orders Only Doctor Unassigned, [facility] 1.0.114 350.1.13.10 4.2.7.2.686 [id number] 009 [id number] [facility] 2020-08-04 00:00:00 2020-08-04 00:00:00 Telephone [facility] Office Building One ..114 350.1.13.10 4.2.7.2.686 [id number] 044 [id number] [facility] 2020-07-24 00:00:00 2020-07-24 00:00:00 Refill [facility] Office Building One ..114 350.1.13.10 4.2.7.2.686 [id number] 044 [id number] [facility] 2020-07-23 00:00:00 2020-07-23 00:00:00 Refill [facility] Office Building One ..114 350.1.13.10 4.2.7.2.686 [id number] 044 [id number] [facility] 2020-07-20 00:00:00 2020-07-20 00:00:00 Refill Ira Ramirez [facility] Office Building One 1.840.114 350.1.13.10 4.2.7.2.686 [id number] 044 [id number] [facility] 2020-07-14 14:20:00 2020-07-14 14:20:00 Outpatient DUANE VARGAS [facility] [id number] [facility] 2020-07-14 14:20:00 2020-07-14 14:20:00 Outpatient DUANE VARGAS [facility] [id number] [facility] 2020-07-10 00:00:00 2020-07-10 00:00:00 Refill [facility] Office Building One 1.840.114 350.1.13.10 4.2.7.2.686 [id number] 044 [id number] [facility] 2020-06-24 00:00:00 2020-06-24 00:00:00 Refill [facility] Office Building One 1.840.114 350.1.13.10 4.2.7.2.686 [id number] 044 [id number] [facility] 2020-06-11 09:00:00 2020-06-11 09:00:00 Outpatient IRA AGUILAR [facility] [id number] [facility] 2020-06-11 06:50:08 2020-06-11 07:20:08 Telemedici ne Visit [facility] Office Building One ..840.114 350.1.13.10 4.2.7.2.686 [id number] 044 [id number] [facility] 2020-06-11 00:00:00 2020-06-11 00:00:00 Telephone Ira Ramirez [facility] Office Building One 1.0.114 350.1.13.10 4.2.7.2.686 [id number] 044 [id number] [facility] 2020-06-11 00:00:00 2020-06-11 00:00:00 Orders Only Doctor Unassigned, [facility] 1.840.114 350.1.13.10 4.2.7.2.686 [id number] 009 [id number] [facility] 2020-06-10 00:00:00 2020-06-10 00:00:00 Shila [facility] Office Building One 1..114 350.1.13.10 4.2.7.2.686 [id number] 044 [id number] [facility] 2020-06-09 00:00:00 2020-06-09 00:00:00 Refill [facility] Office Building One 1..114 350.1.13.10 4.2.7.2.686 [id number] 044 [id number] [facility] 2020-06-04 00:00:00 2020-06-04 00:00:00 Refill [facility] Office Building One 1.0.114 350.1.13.10 4.2.7.2.686 [id number] 044 [id number] [facility] 2020-05-29 00:00:00 2020-05-29 00:00:00 Orders Only Doctor Unassigned, [facility] 1.20.114 350.1.13.10 4.2.7.2.686 [id number] 009 [id number] [facility] 2020-05-28 09:18:00 2020-05-28 16:25:00 Hospital Encounter Leann Regalado [facility] 1.0.114 350.1.13.10 4.2.7.2.686 [id number] 071 [id number] [facility] 2020-05-28 00:00:00 2020-05-28 00:00:00 Orders Only Doctor Unassigned, [facility] 1.20.114 350.1.13.10 4.2.7.2.686 [id number] 009 [id number] [facility] 2020-05-27 14:05:19 2020-05-27 14:20:19 Laboratory Only Only, Adc Test FabricioLeann [facility] 1..114 350.1.13.10 4.2.7.2.686 [id number] [facility] 2020-05-27 12:45:00 2020-05-27 12:45:00 Outpatient R FABRICIO [facility] [id number] [facility] 2020-05-27 00:00:00 2020-05-27 00:00:00 Orders Only Doctor Unassigned, [facility] 1..114 350.1.13.10 4.2.7.2.686 [id number] 009 [id number] [facility] 2020-05-26 12:26:53 2020-05-26 12:41:53 Fill Manager Visit Pob, [facility] 1..114 350.1.13.10 4.2.7.2.686 [id number] [facility] 2020-05-26 12:30:00 2020-05-26 12:30:00 Outpatient R FABRICIO [facility] [id number] [facility] 2020-05-26 00:00:00 2020-05-26 00:00:00 Orders Only Doctor Unassigned, [facility] 1.2.114 350.1.13.10 4.2.7.2.686 [id number] 009 [id number] [facility] 2020-05-21 00:00:00 2020-05-21 00:00:00 [facility] 1.0.114 350.1.13.10 4.2.7.2.686 [id number] 044 [id number] [facility] 2020-05-19 00:00:00 2020-05-19 00:00:00 Orders Only Doctor Unassigned, [facility] 1.0.114 350.1.13.10 4.2.7.2.686 [id number] 009 [id number] [facility] 2020-05-19 00:00:00 2020-05-19 00:00:00 Telephone [facility] Office Building One 1.114 350.1.13.10 4.2.7.2.686 [id number] 044 [id number] [facility] 2020-04-28 00:00:00 2020-04-28 00:00:00 Orders Only Doctor Unassigned, [facility] 1.0.114 350.1.13.10 4.2.7.2.686 [id number] 009 [id number] [facility] 2020-04-28 00:00:00 2020-04-28 00:00:00 Ayazill [facility] Office Building One 1..114 350.1.13.10 4.2.7.2.686 [id number] 044 [id number] [facility] 2020-04-25 00:00:00 2020-04-25 00:00:00 Ayazill [facility] Office Building One 1.0.114 350.1.13.10 4.2.7.2.686 [id number] 044 [id number] [facility] 2020-04-24 00:00:00 2020-04-24 00:00:00 Refill [facility] Office Building One 1..114 350.1.13.10 4.2.7.2.686 [id number] 044 [id number] [facility] 2020-04-18 00:00:00 2020-04-18 00:00:00 [facility] One 1.0.114 350.1.13.10 4.2.7.2.686 [id number] 044 [id number] [facility] 2020-04-14 00:00:00 2020-04-14 00:00:00 Orders Only Doctor Unassigned, [facility] 1.0.114 350.1.13.10 4.2.7.2.686 [id number] 009 [id number] [facility] 2020-04-08 00:00:00 2020-04-08 00:00:00 Telephone [facility] Office Building One 1.0.114 350.1.13.10 4.2.7.2.686 [id number] 044 [id number] [facility] 2020-04-08 00:00:00 2020-04-08 00:00:00 Orders Only Doctor Unassigned, [facility] 1.0.114 350.1.13.10 4.2.7.2.686 [id number] 009 [id number] [facility] 2020-03-28 09:26:59 2020-03-28 10:04:46 Outpatient JEANNE LEWIS MDA, MDA [id number] [facility] 2020-03-24 00:00:00 2020-03-24 00:00:00 [facility] 1..114 350.1.13.10 4.2.7.2.686 [id number] 044 [id number] [facility] 2020-03-11 00:00:00 2020-03-11 00:00:00 Refill [facility] Office Building One 1.840.114 350.1.13.10 4.2.7.2.686 [id number] 044 [id number] [facility] 2020-03-07 00:00:00 2020-03-07 00:00:00 [facility] One 1.0.114 350.1.13.10 4.2.7.2.686 [id number] 044 [id number] [facility] 2020-02-15 00:00:00 2020-02-15 00:00:00 Orders Only Doctor Unassigned, [facility] 1.840.114 350.1.13.10 4.2.7.2.686 [id number] 009 [id number] [facility] 2020-02-04 00:00:00 2020-02-04 00:00:00 Orders Only Doctor Unassigned, [facility] 1.2840.114 350.1.13.10 4.2.7.2.686 [id number] 009 [id number] [facility] 2020-02-04 00:00:00 2020-02-04 00:00:00 Shila [facility] Building 1.0.114 350.1.13.10 4.2.7.2.686 [id number] 044 [id number] [facility] 2020-01-29 00:00:00 2020-01-29 00:00:00 Refill [facility] Office Building One 1.0.114 350.1.13.10 4.2.7.2.686 [id number] 044 [id number] [facility] 2020-01-21 00:00:00 2020-01-21 00:00:00 Pre Visit Outreach [facility] Building 1.84114 350.1.13.10 4.2.7.2.686 [id number] 044 [id number] [facility] 2020-01-17 00:00:00 2020-01-17 00:00:00 Orders Only Doctor Unassigned, [facility] 1.20.114 350.1.13.10 4.2.7.2.686 [id number] 009 [id number] [facility] 2020-01-16 10:05:00 2020-01-16 10:05:00 Discharged Recurring TYRESE SHRESTHA [id number] [facility] 2020-01-14 11:00:00 2020-01-14 11:00:00 Outpatient R [facility] [id number] [facility] 2020-01-11 00:00:00 2020-01-11 00:00:00 Telephone [facility] Building 1..114 350.1.13.10 4.2.7.2.686 [id number] 044 [id number] [facility] 2020-01-11 00:00:00 2020-01-11 00:00:00 Orders Only Doctor Unassigned, [facility] 1.114 350.1.13.10 4.2.7.2.686 [id number] 009 [id number] [facility] 2020-01-08 10:45:00 2020-01-08 15:32:00 Departed Surgical Day Care TYRESE SHRESTHA [id number] [address] [facility] 2020-01-06 00:00:00 2020-01-06 00:00:00 Telephone [facility] Office Building One 1.84.114 350.1.13.10 4.2.7.2.686 [id number] 044 [id number] [facility] 2019-12-30 00:00:00 2019-12-30 00:00:00 Telephone Ira Ramirez [facility] Office Building One 1.840.114 350.1.13.10 4.2.7.2.686 [id number] 044 [id number] [facility] 2019-12-28 08:05:15 2019-12-28 09:12:53 Office Visit [facility] Building 1.84.114 350.1.13.10 4.2.7.2.686 [id number] [facility] 2019-12-28 08:30:00 2019-12-28 08:30:00 Outpatient R LIBERTY LECHUGA [facility] [id number] [facility] 2019-12-27 00:00:00 2019-12-27 00:00:00 Orders Only Doctor Unassigned, [facility] 1.84.114 350.1.13.10 4.2.7.2.686 [id number] 009 [id number] [facility] 2019-12-17 15:42:00 2019-12-17 15:42:00 Discharged Recurring TYRESE SHRESTHA [id number] [address] [place] [address] 2019-12-17 00:00:00 2019-12-17 00:00:00 Refill Jassniru [facility] Office Building One 1.84.114 350.1.13.10 4.2.7.2.686 [id number] 044 [id number] [facility] 2019-12-04 00:00:00 2019-12-04 00:00:00 Telephone Ira Ramirez [facility] Building 1.840.114 350.1.13.10 4.2.7.2.686 [id number] 044 [id number] [facility] 2019-11-30 00:00:00 2019-11-30 00:00:00 Telephone Ira Ramirez [facility] Building 1.2.840.114 350.1.13.10 4.2.7.2.686 [id number] 044 [id number] [facility] 2019-11-29 00:00:00 2019-11-29 00:00:00 Orders Only Doctor Unassigned, [facility] 1.2.840.114 350.1.13.10 4.2.7.2.686 [id number] 009 [id number] [facility] 2019-11-22 00:00:00 2019-11-22 00:00:00 Telephone Ira Ramirez [facility] 1.2.840.114 350.1.13.10 4.2.7.2.686 [id number] 044 [id number] [facility] 2019-11-16 00:00:00 2019-11-16 00:00:00 Orders Only Doctor Unassigned, [facility] 1.2.840.114 350.1.13.10 4.2.7.2.686 [id number] 009 [id number] [facility] 2019-11-06 00:00:00 2019-11-06 00:00:00 Telephone Ira Ramirez [facility] 1.2840.114 350.1.13.10 4.2.7.2.686 [id number] 044 [id number] [facility] 2019-11-06 00:00:00 2019-11-06 00:00:00 Refill Ira Ramirez [facility] Building 1.2.840.114 350.1.13.10 4.2.7.2.686 [id number] 044 [id number] [facility] 2019-10-30 00:00:00 2019-10-30 00:00:00 Telephone Ira Ramirez [facility] Building 1.2.840.114 350.1.13.10 4.2.7.2.686 [id number] 044 [id number] [facility] 2019-10-28 00:00:00 2019-10-28 00:00:00 Telephone Ira Ramirez [facility] Building 1.2.840.114 350.1.13.10 4.2.7.2.686 [id number] 044 [id number] [facility] 2019-10-26 00:00:00 2019-10-26 00:00:00 Orders Only Doctor Unassigned, [facility] 1.2.840.114 350.1.13.10 4.2.7.2.686 [id number] 009 [id number] [facility] 2019-10-15 00:00:00 2019-10-15 00:00:00 Telephone Ira Ramirez [facility] Building 1.2840.114 350.1.13.10 4.2.7.2.686 [id number] 044 [id number] [facility] 2019-09-28 10:48:22 2019-09-28 11:03:22 Office Visit Ira Ramirez [facility] Office Building One 1.2840.114 350.1.13.10 4.2.7.2.686 [id number] 044 [id number] [facility] 2019-09-28 10:45:00 2019-09-28 10:45:00 Outpatient R [facility] [id number] [facility] 2019-09-27 00:00:00 2019-09-27 00:00:00 Orders Only Doctor Unassigned, [facility] 1.2840.114 350.1.13.10 4.2.7.2.686 [id number] 009 [id number] [facility] 2019-09-26 00:00:2019-09-26 00:00:00 Telephone Ira Ramirez [facility] Office Building One 1.2840.114 350.1.13.10 4.2.7.2.686 [id number] 044 [id number] [facility] 2019-09-24 00:00:00 2019-09-24 00:00:00 Refill [facility] Office Building One 1.2840.114 350.1.13.10 4.2.7.2.686 [id number] 044 [id number] [facility] 2019-09-19 00:00:00 2019-09-19 00:00:00 Telephone [facility] Office [facility] One 1.2840.114 350.1.13.10 4.2.7.2.686 [id number] 044 [id number] [facility] 2019-09-13 00:00:00 2019-09-13 00:00:00 Orders Only Doctor Unassigned, [facility] 1.2840.114 350.1.13.10 4.2.7.2.686 [id number] 009 [id number] [facility] 2019-09-10 00:00:00 2019-09-10 00:00:00 Refill [facility] Office [facility] One 1.2840.114 350.1.13.10 4.2.7.2.686 [id number] 044 [id number] [facility] 2019-09-05 00:00:00 2019-09-05 00:00:00 Orders Only Doctor Unassigned, [facility] 1.2.840.114 350.1.13.10 4.2.7.2.686 [id number] 009 [id number] [facility] 2019-08-28 00:00:00 2019-08-28 00:00:00 Orders Only Doctor Unassigned, [facility] 1.2.840.114 350.1.13.10 4.2.7.2.686 [id number] 009 [id number] [facility] 2019-08-23 00:00:00 2019-08-23 00:00:00 Refill [facility] Office Building One 1.0.114 350.1.13.10 4.2.7.2.686 [id number] 044 [id number] [facility] 2019-08-21 00:00:00 2019-08-21 00:00:00 Telephone [facility] Office Building One 1..114 350.1.13.10 4.2.7.2.686 [id number] 044 [id number] [facility] 2019-08-20 00:00:00 2019-08-20 00:00:00 Telephone [facility] Office Building One 1..114 350.1.13.10 4.2.7.2.686 [id number] 044 [id number] [facility] 2019-08-17 00:00:00 2019-08-17 00:00:00 Refill Ashley [facility] Office Building One 1.84.114 350.1.13.10 4.2.7.2.686 [id number] 044 [id number] [facility] 2019-08-06 00:00:00 2019-08-06 00:00:00 Refill Ashley [facility] Office Building One 1.0.114 350.1.13.10 4.2.7.2.686 [id number] 044 [id number] [facility] 2019-08-03 00:00:00 2019-08-03 00:00:00 Orders Only Doctor Unassigned, [facility] 1.0.114 350.1.13.10 4.2.7.2.686 [id number] 009 [id number] [facility] 2019-08-01 00:00:00 2019-08-01 00:00:00 Telephone Ashley [facility] Office Building One 1.2840.114 350.1.13.10 4.2.7.2.686 [id number] 044 [id number] [facility] 2019-07-23 00:00:00 2019-07-23 00:00:00 Refill Ashley [facility] Office Building One 1.0.114 350.1.13.10 4.2.7.2.686 [id number] 044 [id number] [facility] 2019-07-17 00:00:00 2019-07-17 00:00:00 Orders Only Doctor Unassigned, [facility] 1.2840.114 350.1.13.10 4.2.7.2.686 [id number] 009 [id number] [facility] 2019-03-08 00:00:00 2019-03-08 00:00:00 Orders Only Doctor Unassigned, [facility] 1.2.840.114 350.1.13.10 4.2.7.2.686 [id number] 009 [id number] [facility] 2019-03-01 00:00:00 2019-03-01 00:00:00 Orders Only Doctor Unassigned, [facility] 1.2840.114 350.1.13.10 4.2.7.2.686 [id number] 009 [id number] [facility] 2019-02-23 00:00:00 2019-02-23 00:00:[facility] 1.2840.114 350.1.13.10 4.2.7.2.686 [id number] 044 [id number] [facility] 2019-02-21 00:00:00 2019-02-21 00:00:00 Orders Only Doctor Unassigned, [facility] 1.2.840.114 350.1.13.10 4.2.7.2.686 [id number] 009 [id number] [facility] 2019-02-15 00:00:00 2019-02-15 00:00:00 Orders Only Doctor Unassigned, [facility] 1.2.840.114 350.1.13.10 4.2.7.2.686 [id number] 009 [id number] [facility] 2019-02-06 00:00:00 2019-02-06 00:00:00 Orders Only Doctor Unassigned, [facility] 1.2.840.114 350.1.13.10 4.2.7.2.686 [id number] 009 [id number] [facility] 2019-01-09 00:00:00 2019-01-09 00:00:00 Orders Only Doctor Unassigned, [facility] 1.2.840.114 350.1.13.10 4.2.7.2.686 [id number] 009 [id number] [facility] 2018-10-26 00:00:00 2018-10-26 00:00:00 Orders Only Doctor Unassigned, [facility] 1.2.840.114 350.1.13.10 4.2.7.2.686 [id number] 009 [id number] [facility] Results Test Description Test Time Test Comments Results Resul t Comments Source - XR CHEST 1 V 2023-03-29 22:00:00 [facility] 1955 Sex: M Name: IRA RAYA Dale : 1955 Age/S: 67 / M [address] Unit #: [id number] Loc: [place] [address] Phys: Undefined Provider Acct: [id number] Dis Date: Status: REG REF PHONE #: [phone] Exam Date: 03/29/20232144 FAX #: Reason: Viral Pneumonia Unsp EXAMS: CPT: [id number] XR CHEST 1 V 16257 Fluoro Time: DAP (Gy m2): Air Kerma [...] PAGE 1 Signed Report Name: IRA RAYA Dale : 1955 Age/S: 67 / M [address] [address] Unit #: [id number] Loc: [place] [address] Phys: Undefined Provider Acct: [id number] Dis Date: Status: REG REF PHONE #: [phone] Exam Date: 03/29/20232144 FAX #: Reason: Viral Pneumonia Unsp EXAMS: CPT: [id number] XR CHEST 1 V 06992 Fluoro Time: DAP (Gy m2): Air Kerma (mGy): (Continued) Technologist: Marjorie Villavicencio, RT(R)(CT) Trnscb Date/Time: 03/29/2023 (2199) [email or web address] Orig Print D/T: S: 03/29/2023 (2203) PAGE 2 Signed Report - XR CHEST 1 V 2023-03-24 12:21:00 [facility] : 1955 Sex: M Name: IRA RAYA [facility] : 1955 Age/S: 67 / M [address] Unit #: [id number] Loc: [place] [address] Phys: Leida Cuellar MD Acct: [id number] Dis Date: Status: REG REF PHONE #: [phone] Exam Date: 03/24/2023 1205 FAX #: Reason: SOB EXAMS: CPT: [id number] XR CHEST 1 V 81416 Fluoro Time: DAP (Gy m2): Air Kerma [...] and signed by: Fuad Fuentes M.D. CC: Leida Cuellar MD PAGE 1 Signed Report Name: IRA RAYA : 1955 Age/S: 67 / M [address] [address] Unit #: [id number] Loc: [place] [address] Phys: Leida Cuellar MD Acct: [id number] Dis Date: Status: REG REF PHONE #: [phone] Exam Date: 03/24/2023 1205 FAX #: Reason: SOB EXAMS: CPT: [id number] XR CHEST 1 V 73426 Fluoro Time: DAP (Gy m2): Air Kerma (mGy): (Continued) Technologist: Sal Gallegos Trnscb Date/Time: 03/24/2023 (122) [email or web address] Orig Print D/T: S: 03/24/2023 (9977) PAGE 2 [facility]* Test Item Value Reference Range Interpretation Comme nts PHOSPHORUS (test code = 5277432411) 3.9 mg/dL 2.5-5.0 Lab Interpretation (test cod e = 01448-6) [facility]:26:11* Test Item Value Reference Range Interpretation Comme nts MAGNESIUM (test code = 1435991374) 2.1 mg/dL 1.7-2.4 Lab Interpretation (test cod e = 95535-8) [facility] (NA, K, CL, CO2, GLUCOSE, BUN, CREATININE, CA)2023-03-17 13:26:11* Test Item Value Reference Range Interpretation Comme nts NA (test code = 9846716170) 134 mmol/L 135-145 L K (test code = 7317531030) 4.4 mmol/L 3.5-5.0 CL (test code = 1774810051) 100 mmol/L 98-108 CO2 TOTAL (test code = 7623431577) 25 mmol/L 23-31 AGAP (test code = 9976235021) 9 2-16 BUN (test code = 3736433646) 30 mg/dL 7-23 H GLUCOSE (test code = 3284782600) 66 mg/dL 70-110 L CREATININE (test code = 4425713036) 4.10 mg/dL 0.60-1.25 H CALCIUM (test code = 1258847493) 9.3 mg/dL 8.6-10.6 eGFR (test code = 6607561625) 14.6 mL/min/1.73m2 DANE (test code = DANE) [...] imaging tests). Lab Interpretation (test code = 17318-2) [facility] ([facility]Ab)2023-03-16 22:19:26* Test Item Value Reference Range Interpretation Comme nts HBsAB (test code = 0362319121) Negative HBsAb Semi-Quantitative (test code = 2645069422) 1.10 mIU/mL DANE (test code = DANE) Interpretation: ?Hepatitis B Surface Antibody ? Negative - Patient is considered to be not immune to infection with HBV. ? ? Positive - Anti-HBs detected at greater than or equal to 12 mIU/mL. ?Patient is considered to be immune to infection with HBV. ? [facility] B Surface Antigen (HBsAg)2023-03-16 22:01:44* Test Item Value Reference Range Interpretation Comme [facility] HBsAg Semi-Quantitative (zaki t code = 5195-3) 0.09 Negative [facility] METABOLIC PANEL (NA, K, CL, CO2, GLUCOSE, BUN, CREATININE, CA)2023-03-16 15:36:40* Test Item Value Reference Range Interpretation Comme nts NA (test code = 2794658878) 133 mmol/L 135-145 L K (test code = 4836240666) 4.2 mmol/L 3.5-5.0 CL (test code = 2117005175) 97 mmol/L 98-108 L CO2 TOTAL (test code = 1261773253) 24 mmol/L 23-31 AGAP (test code = 8952539417) 12 2-16 BUN (test code = 7623597820) 51 mg/dL 7-23 H GLUCOSE (test code = 3417525462) 124 mg/dL 70-110 H CREATININE (test code = 8768088768) 6.90 mg/dL 0.60-1.25 H CALCIUM (test code = 4439711998) 9.0 mg/dL 8.6-10.6 eGFR (test code = 1497402352) 8.0 mL/min/1.73m2 DANE (test code = DANE) [...] imaging tests). Lab Interpretation (test code = 18376-9) [facility]normal [facility]2023-[facility] 15:01:19 FHUTQTFNBU56/06/2023 10:01 AM [facility] SERVICESHouston [facility] HospitalMAGNESIUM2023-09-06 15:01:42TSUNWAPGP20/06/2023 10:01 AM [facility] SERVICESUnMethod[facility] HospitalPOCT GLUCOSE (AUTOMATED) 2023-03-16 13:31:06* Test Item Value Reference Range Interpretation Comme nts POCT GLU (test code = 9934824272) 101 mg/dL 70-110 Lab Interpretation (test cod e = 49649-6) Normal [facility] HospitalFOLATE2023-09-06 02:09:18* Test Item Value Reference Range Interpretation Comme nts FOLATE SER (test code = 2293737839) 10.2 ng/mL 3.0-20.0 Lab Interpretation (test cod e = 84185-3) Normal [facility] HospitalFERRITIN [id number] 23:50:28* Test Item Value Reference Range Interpretation Comme nts FERRITIN (test code = 6962833997) 2760.0 ng/mL 18.0-464.0 H DANE (test code = DANE) Biotin has been reported to cause a negative bias, interpret results relative to patient's use of biotin. Lab Interpretation (test code = 77843-7) Abnormal [facility] HospitalVITAMIN B12, [id number] 23:11:19* Test Item Value Reference Range Interpretation Comme nts VIT B12 (test code = 3555136564) 983 pg/mL 240-930 H DANE (test code = DANE) Biotin has been reported to cause a positive bias, interpret results relative to patient's use of biotin. Lab Interpretation (test code = 61450-4) Abnormal [facility] HospitalIRON [id number] 21:51:37* Test Item Value Reference Range Interpretation Comme nts IRON (test code = 5660538523) 48 ug/dL 50-160 L TIBC (test code = 6610624634) 142 ug/dL 250-410 L % FE SAT (test code = 5422330631) 34 % 20-50 Lab Interpretation (test cod e = 34862-4) Abnormal [facility] HospitalaPTT (for use with Heparin Infusion)2023-03-15 20:43:24* Test Item Value Reference Range Interpretation Comme nts APTT Patient (test code = 3173-2) 51 See_Comment H [Automated messa ge] The system which generated this result transmitted reference range: 26 - 36 Seconds. The reference range was not used to interpret this result as normal/abnormal. Lab Interpretation (test code = 97711-9) Abnormal [facility] HospitalAC Panel 20 + Lactic [id number] 14:10:16* Test Item Value Reference Range Interpretation Comme nts PH (test code = 2) 7.34 7.35-7.45 L PCO2 (test code = 9307749400) 48 See_Comment H [Automated messa ge] The system which generated this result transmitted reference range: 35 - 45 mmHg. The reference range was not used to interpret this result as normal/abnormal. PO2 (test code = 9376566331) 176 See_Comment H [Automated messa ge] The system which generated this result transmitted reference range: 80 - 100 mmHg. The reference range was not used to interpret this result as normal/abnormal. HCO3 (test code = 5503496355) 25 See_Comment [Automated messa ge] The system which generated this result transmitted reference range: 22 - 26 mEq/L. The reference range was not used to interpret this result as normal/abnormal. BE (test code = 8943401312) -0.8 See_Comment [Automated messa ge] The system which generated this result transmitted reference range: -3.0 - 3.0 mEq/L. The reference range was not used to interpret this result as normal/abnormal. THB (test code = 5105290962) 8.8 g/dL 13.5-18.0 L %O2HB (test code = 9207206374) 99.0 % 94.0-99.0 %COHB ART (test code = 6118870024) 0.2 % 0.0-1.5 %METHB ART (test code = 2500170571) 0.1 % 0.4-1.5 L VOL%O2 ART (test code = 8219718386) 12.7 % 15.0-23.0 L NA (test code = 1605365841) 129 mmol/L 135-145 L K+ (test code = 8143107050) 4.6 mmol/L 3.5-5.0 AC CA IONZ (test code = 3535343636) 5.10 mg/dL 4.50-5.30 GLUCOSE (test code = 6714698985) 79 mg/dL 70-110 LACTIC ACID (test code = 9702180866) 1.04 mmol/L 0.50-2.20 QUES Lab Interpretation (test code = 94901-6) Abnormal [facility] HospitalProthrombin Time / [id number] 12:11:15* Test Item Value Reference Range Interpretation [...] the indications. Lab Interpretation (test code = 14326-8) Abnormal [facility] HospitalCBC WITH [id number] 08:34:23* Test Item Value Reference Range Interpretation [...] g/dL 31.2-35.0 L RDW-SD (test code = 50180-6) 62.5 fL 38.5-51.6 H RDW-CV (test code = 788-0) 20.0 % 12.1-15.4 H PLT (test code = 777-3) 216 See_Comment [Automated message] The system which generated this result transmitted reference range: 150 - 328 10*3/?L. The reference range was not used to interpret this result as normal/abnormal. MPV (test code = 19989-9) 9.9 fL 9.8-13.0 NRBC/100 WBC (test code = 2967486616) 0.6 See_Comment [Automated message] The system which generated this result transmitted reference range: 0.0 - 10.0 /100 WBCs. The reference range was not used to interpret this result as normal/abnormal. NRBC x10^3 (test code = 2061413655) 0.10 See_Comment [Automated message] The system which generated this result transmitted reference range: 10*3/?L. The reference range was not used to interpret this result as normal/abnormal. GRAN MAT (NEUT) % (test code = 770-8) 86.1 % IMM GRAN % (test code = 0690223409) 4.30 % LYMPH % (test code = 736-9) 2.3 % MONO % (test code = 5905-5) 7.0 % EOS % (test code = 713-8) 0.1 % BASO % (test code = 706-2) 0.2 % GRAN MAT x10^3(ANC) (test code = 4375509975) 15.12 10*3/uL 1.99-6.95 H IMM GRAN x10^3 (test code = 1483668764) 0.75 10*3/uL 0.00-0.06 H LYMPH x10^3 (test code = 731-0) 0.40 10*3/uL 1.09-3.23 L MONO x10^3 (test code = 742-7) 1.22 10*3/uL 0.36-1.02 H EOS x10^3 (test code = 711-2) 0.06-0.53 L BASO x10^3 (test code = 704-7) 0.04 10*3/uL 0.01-0.09 POLYCHROMASIA (test code = 81693-7) 2+ See_Comment [Automated message] The system which generated this result transmitted reference range: 2+. The reference range was not used to interpret this result as normal/abnormal. Lab Interpretation (test code = 32068-2) Abnormal [facility] METABOLIC PANEL (NA, K, CL, CO2, GLUCOSE, BUN, CREATININE, CA)2023-03-15 08:11:24* Test Item Value Reference Range Interpretation Comme nts NA (test code = 2044687302) 134 mmol/L 135-145 L K (test code = 8869285652) 4.3 mmol/L 3.5-5.0 CL (test code = 3662874213) 99 mmol/L 98-108 CO2 TOTAL (test code = 0166803280) 25 mmol/L 23-31 AGAP (test code = 1395224819) 10 2-16 BUN (test code = 9932686038) 28 mg/dL 7-23 H GLUCOSE (test code = 3451587627) 75 mg/dL 70-110 CREATININE (test code = 8818725240) 5.10 mg/dL 0.60-1.25 H CALCIUM (test code = 3411149740) 9.5 mg/dL 8.6-10.6 eGFR (test code = 3781691694) 11.3 mL/min/1.73m2 DANE (test code = DANE) [...] imaging tests). Lab Interpretation (test code = 04000-0) Abnormal [facility]aP[facility] (for use with [facility] Infusion)2023-03-15 08:08:54* Test Item Value Reference Range Interpretation Comme nts APTT Patient (test code = 3173-2) 66 See_Comment H [Automated [employer]] The system which generated this result transmitted reference range: 26 - 36 Seconds. The reference range was not used to interpret this result as normal/abnormal. Lab Interpretation (test code = 49797-0) Abnormal [facility] HospitalPHOSPHORUS2023-09-05 08:08:13* Test Item Value Reference Range Interpretation Comme nts PHOSPHORUS (test code = 4618322266) 5.5 mg/dL 2.5-5.0 H Lab Interpretation (test cod e = 97242-3) Abnormal [facility] HospitalMAGNESIUM2023-09-05 08:08:13* Test Item Value Reference Range Interpretation Comme nts MAGNESIUM (test code = 2110039193) 2.2 mg/dL 1.7-2.4 Lab Interpretation (test cod e = 85054-0) Normal [facility]aP[facility] (for use with Heparin Infusion)2023-03-14 23:13:05* Test Item Value Reference Range Interpretation Comme [facility] APTT Patient (test code = 3173-2) See_Comment HH [Automated messa ge] The system which generated this result transmitted reference range: 26 - 36 Seconds. The reference range was not used to interpret this result as normal/abnormal. Lab Interpretation (test code = 35311-0) Abnormal [facility] HospitalGLYCOSYLATED HEMOGLOBIN (A1C)2023-03-14 18:06:10* Test Item Value Reference Range Interpretation Comme [facility] HGB A1C (test code = 4548-4) 4.8 % 4.0-5.7 DANE (test code = DANE) Reference RangesNormal: <5.7%Prediabetes: 5.7 - 6.4%Diabetes: > 6.5% Lab Interpretation (test code = 60116-6) Normal [facility] HospitalCB WITH [id number] 16:44:59* Test Item Value Reference Range Interpretation [...] g/dL 31.2-35.0 L RDW-SD (test code = 34659-5) 62.6 fL 38.5-51.6 H RDW-CV (test code = 788-0) 19.9 % 12.1-15.4 H PLT (test code = 777-3) 200 See_Comment [Automated message] The system which generated this result transmitted reference range: 150 - 328 10*3/?L. The reference range was not used to interpret this result as normal/abnormal. MPV (test code = 28978-8) 9.7 fL 9.8-13.0 L NRBC/100 WBC (test code = 4756012376) 0.2 See_Comment [Automated message] The system which generated this result transmitted reference range: 0.0 - 10.0 /100 WBCs. The reference range was not used to interpret this result as normal/abnormal. NRBC x10^3 (test code = 4001788316) 0.05 See_Comment [Automated message] The system which generated this result transmitted reference range: 10*3/?L. The reference range was not used to interpret this result as normal/abnormal. GRAN MAT (NEUT) % (test code = 770-8) 88.4 % IMM GRAN % (test code = 6396232039) 3.60 % LYMPH % (test code = 736-9) 1.5 % MONO % (test code = 5905-5) 6.0 % EOS % (test code = 713-8) 0.3 % BASO % (test code = 706-2) 0.2 % GRAN MAT x10^3(ANC) (test code = 3407867219) 17.71 10*3/uL 1.99-6.95 H IMM GRAN x10^3 (test code = 2763959148) 0.73 10*3/uL 0.00-0.06 H LYMPH x10^3 (test code = 731-0) 0.31 10*3/uL 1.09-3.23 L MONO x10^3 (test code = 742-7) 1.20 10*3/uL 0.36-1.02 H EOS x10^3 (test code = 711-2) 0.06 10*3/uL 0.06-0.53 BASO x10^3 (test code = 704-7) 0.04 10*3/uL 0.01-0.09 SCHISTOCYTES (test code = 800-3) 1+ A Lab Interpretation (test code = 29606-8) Abnormal [facility] METABOLIC PANEL (NA, K, CL, CO2, GLUCOSE, BUN, CREATININE, CA)2023-03-14 16:41:12* Test Item Value Reference Range Interpretation Comme nts NA (test code = 4060622070) 135 mmol/L 135-145 K (test code = 9525855774) 5.5 mmol/L 3.5-5.0 H CL (test code = 1477959374) 102 mmol/L 98-108 CO2 TOTAL (test code = 7875929670) 24 mmol/L 23-31 AGAP (test code = 6408177034) 9 2-16 BUN (test code = 5031493254) 43 mg/dL 7-23 H GLUCOSE (test code = 7451381739) 98 mg/dL 70-110 CREATININE (test code = 7855374126) 8.00 mg/dL 0.60-1.25 H CALCIUM (test code = 3020410780) 9.0 mg/dL 8.6-10.6 eGFR (test code = 7492442478) 6.7 mL/min/1.73m2 DANE (test code = DANE) [...] imaging tests). Lab Interpretation (test code = 78839-2) Abnormal [facility] Infusion)2023-03-14 16:26:55* Test Item Value Reference Range Interpretation Comme [facility] APTT Patient (test code = 3173-2) 92 See_Comment H [Automated messa [employer]] The system which generated this result transmitted reference range: 26 - 36 Seconds. The reference range was not used to interpret this result as normal/abnormal. Lab Interpretation (test code = 20018-5) Abnormal [facility] HospitalProthrombin Time / [id number] 11:36:59* Test Item Value Reference Range Interpretation Comme [facility] PROTIME PATIENT (test code = 5964-2) 13.9 See_Comment H [Automated messa ge] The system which generated this result transmitted reference range: 10.1 - 12.6 Seconds. The reference range was not used to interpret this result as normal/abnormal. INR (test code = 6301-6) 1.2 Normal INR <1.1; Warfarin Therapeutic range 2.0 to 3.0 or 2.5 to 3.5, depending upon the indications. Lab Interpretation (test code = 03445-2) Abnormal [facility] use with [facility] Infusion)2023-03-14 09:09:58* Test Item Value Reference Range Interpretation Comme [facility] APTT Patient (test code = 3173-2) 87 See_Comment H [Automated messa ge] The system which generated this result transmitted reference range: 26 - 36 Seconds. The reference range was not used to interpret this result as normal/abnormal. Lab Interpretation (test code = 68428-6) Abnormal [facility] HospitalCBC WITH [id number] 06:46:00* Test Item Value Reference Range Interpretation [...] g/dL 31.2-35.0 L RDW-SD (test code = 65177-7) 62.5 fL 38.5-51.6 H RDW-CV (test code = 788-0) 19.9 % 12.1-15.4 H PLT (test code = 777-3) 224 See_Comment [Automated message] The system which generated this result transmitted reference range: 150 - 328 10*3/?L. The reference range was not used to interpret this result as normal/abnormal. MPV (test code = 53567-0) 9.8 fL 9.8-13.0 NRBC/100 WBC (test code = 5476189476) 0.3 See_Comment [Automated message] The system which generated this result transmitted reference range: 0.0 - 10.0 /100 WBCs. The reference range was not used to interpret this result as normal/abnormal. NRBC x10^3 (test code = 8906780669) 0.07 See_Comment [Automated message] The system which generated this result transmitted reference range: 10*3/?L. The reference range was not used to interpret this result as normal/abnormal. GRAN MAT (NEUT) % (test code = 770-8) 84.3 % IMM GRAN % (test code = 6576031700) 4.50 % LYMPH % (test code = 736-9) 2.4 % MONO % (test code = 5905-5) 8.6 % EOS % (test code = 713-8) 0.0 % BASO % (test code = 706-2) 0.2 % GRAN MAT x10^3(ANC) (test code = 4920189977) 18.61 10*3/uL 1.99-6.95 H IMM GRAN x10^3 (test code = 5912642965) 1.00 10*3/uL 0.00-0.06 H LYMPH x10^3 (test code = 731-0) 0.54 10*3/uL 1.09-3.23 L MONO x10^3 (test code = 742-7) 1.91 10*3/uL 0.36-1.02 H EOS x10^3 (test code = 711-2) 0.06-0.53 L BASO x10^3 (test code = 704-7) 0.05 10*3/uL 0.01-0.09 BASO STIPPLING (test code = 703-9) Present A POLYCHROMASIA (test code = 59159-2) 2+ See_Comment [Automated message] The system which generated this result transmitted reference range: 2+. The reference range was not used to interpret this result as normal/abnormal. Lab Interpretation (test code = 84790-9) Abnormal [facility] WITH [id number] 22:43:43* Test Item Value Reference Range Interpretation [...] g/dL 31.2-35.0 L RDW-SD (test code = 77909-0) 63.2 fL 38.5-51.6 H RDW-CV (test code = 788-0) 19.8 % 12.1-15.4 H PLT (test code = 777-3) 232 See_Comment [Automated message] The system which generated this result transmitted reference range: 150 - 328 10*3/?L. The reference range was not used to interpret this result as normal/abnormal. MPV (test code = 28099-6) 10.5 fL 9.8-13.0 NRBC/100 WBC (test code = 7211406133) 0.2 See_Comment [Automated message] The system which generated this result transmitted reference range: 0.0 - 10.0 /100 WBCs. The reference range was not used to interpret this result as normal/abnormal. NRBC x10^3 (test code = 0195104751) 0.05 See_Comment [Automated message] The system which generated this result transmitted reference range: 10*3/?L. The reference range was not used to interpret this result as normal/abnormal. GRAN MAT (NEUT) % (test code = 770-8) 88.3 % IMM GRAN % (test code = 7713812968) 4.10 % LYMPH % (test code = 736-9) 1.7 % MONO % (test code = 5905-5) 5.7 % EOS % (test code = 713-8) 0.0 % BASO % (test code = 706-2) 0.2 % GRAN MAT x10^3(ANC) (test code = 3815159792) 18.40 10*3/uL 1.99-6.95 H IMM GRAN x10^3 (test code = 4249129218) 0.85 10*3/uL 0.00-0.06 H LYMPH x10^3 (test code = 731-0) 0.35 10*3/uL 1.09-3.23 L MONO x10^3 (test code = 742-7) 1.19 10*3/uL 0.36-1.02 H EOS x10^3 (test code = 711-2) 0.06-0.53 L BASO x10^3 (test code = 704-7) 0.05 10*3/uL 0.01-0.09 POLYCHROMASIA (test code = 09776-3) 2+ See_Comment [Automated message] The system which generated this result transmitted reference range: 2+. The reference range was not used to interpret this result as normal/abnormal. Lab Interpretation (test code = 11763-5) Abnormal [facility] METABOLIC PANEL (NA, K, CL, CO2, GLUCOSE, BUN, CREATININE, CA)2023-03-13 22:18:15* Test Item Value Reference Range Interpretation Comme nts NA (test code = 7741404741) 135 mmol/L 135-145 K (test code = 4138286208) 5.3 mmol/L 3.5-5.0 H CL (test code = 5089107723) 100 mmol/L 98-108 CO2 TOTAL (test code = 3187338166) 26 mmol/L 23-31 AGAP (test code = 1697208889) 9 2-16 BUN (test code = 8892437396) 33 mg/dL 7-23 H GLUCOSE (test code = 2697034318) 134 mg/dL 70-110 H CREATININE (test code = 5117296394) 6.90 mg/dL 0.60-1.25 H CALCIUM (test code = 5891803418) 8.7 mg/dL 8.6-10.6 eGFR (test code = 2441471774) 8.0 mL/min/1.73m2 DANE (test code = DANE) [...] imaging tests). Lab Interpretation (test code = 60719-2) [facility]normal [facility] 22:18:15* Test Item Value Reference Range Interpretation Comme [facility] MAGNESIUM (test code = 8597593720) 2.3 mg/dL 1.7-2.4 Lab Interpretation (test cod e = 91800-8) Normal [facility] 22:16:55* Test Item Value Reference Range Interpretation Comme nts APTT Patient (test code = 3173-2) 38 See_Comment H [Automated [employer]] The system which generated this result transmitted reference range: 26 - 36 Seconds. The reference range was not used to interpret this result as normal/abnormal. Lab Interpretation (test code = 18972-8) Abnormal [facility] HospitalFIBRINOGEN2023-09-03 12:49:22* Test Item Value Reference Range Interpretation Comme nts Fibrinogen (test code = 5569462756) 931 mg/dL 167-453 H Lab Interpretation (test cod e = 65318-2) Abnormal [facility] HospitalProthrombin Time / [id number] 12:32:29* Test Item Value Reference Range Interpretation Comme [facility] PROTIME PATIENT (test code = 5964-2) 13.2 See_Comment H [Automated [employer]] The system which generated this result transmitted reference range: 10.1 - 12.6 Seconds. The reference range was not used to interpret this result as normal/abnormal. INR (test code = 6301-6) 1.2 Normal INR <1.1; Warfarin Therapeutic range 2.0 to 3.0 or 2.5 to 3.5, depending upon the indications. Lab Interpretation (test code = 47704-1) Abnormal [facility] WITH [id number] 09:23:18* Test Item Value Reference Range Interpretation [...] g/dL 31.2-35.0 L RDW-SD (test code = 39733-2) 61.5 fL 38.5-51.6 H RDW-CV (test code = 788-0) 19.8 % 12.1-15.4 H PLT (test code = 777-3) 344 See_Comment H [Automated message] The system which generated this result transmitted reference range: 150 - 328 10*3/?L. The reference range was not used to interpret this result as normal/abnormal. MPV (test code = 32178-5) 9.9 fL 9.8-13.0 NRBC/100 WBC (test code = 3710368094) 0.4 See_Comment [Automated message] The system which generated this result transmitted reference range: 0.0 - 10.0 /100 WBCs. The reference range was not used to interpret this result as normal/abnormal. NRBC x10^3 (test code = 9256403148) 0.11 See_Comment [Automated message] The system which generated this result transmitted reference range: 10*3/?L. The reference range was not used to interpret this result as normal/abnormal. GRAN MAT (NEUT) % (test code = 770-8) 83.7 % IMM GRAN % (test code = 4232492677) 5.40 % LYMPH % (test code = 736-9) 2.2 % MONO % (test code = 5905-5) 7.6 % EOS % (test code = 713-8) 0.3 % BASO % (test code = 706-2) 0.8 % GRAN MAT x10^3(ANC) (test code = 7100330143) 21.26 10*3/uL 1.99-6.95 H IMM GRAN x10^3 (test code = 7215795343) 1.38 10*3/uL 0.00-0.06 H LYMPH x10^3 (test code = 731-0) 0.57 10*3/uL 1.09-3.23 L MONO x10^3 (test code = 742-7) 1.94 10*3/uL 0.36-1.02 H EOS x10^3 (test code = 711-2) 0.08 10*3/uL 0.06-0.53 BASO x10^3 (test code = 704-7) 0.20 10*3/uL 0.01-0.09 H Lab Interpretation (test code = 69100-7) Abnormal [facility]TR[facility] [id number] 09:08:57* Test Item Value Reference Range Interpretation Comme nts TROPONIN I (test code = 4551230177) 0.511 ng/mL <=0.034 H DANE (test code [...] of biotin. Lab Interpretation (test code = 78825-3) Abnormal [facility] METABOLIC PANEL (NA, K, CL, CO2, GLUCOSE, BUN, CREATININE, CA)2023-03-13 08:59:36* Test Item Value Reference Range Interpretation Comme nts NA (test code = 0670259316) 135 mmol/L 135-145 K (test code = 3261804451) 4.9 mmol/L 3.5-5.0 CL (test code = 1940709001) 100 mmol/L 98-108 CO2 TOTAL (test code = 3941178468) 26 mmol/L 23-31 AGAP (test code = 9148927826) 9 2-16 BUN (test code = 3155698876) 29 mg/dL 7-23 H GLUCOSE (test code = 4725358781) 148 mg/dL 70-110 H CREATININE (test code = 1945572458) 6.20 mg/dL 0.60-1.25 H CALCIUM (test code = 4227978966) 8.7 mg/dL 8.6-10.6 eGFR (test code = 9162065541) 9.0 mL/min/1.73m2 DANE (test code = DANE) [...] imaging tests). Lab Interpretation (test code = 60610-9) [facility]normal [facility] 08:59:36* Test Item Value Reference Range Interpretation Comme nts MAGNESIUM (test code = 7771447161) 2.2 mg/dL 1.7-2.4 Lab Interpretation (test cod e = 30805-9) Normal [facility]2023-[facility] 08:59:36* Test Item Value Reference Range Interpretation Comme nts PHOSPHORUS (test code = 9633690436) 5.7 mg/dL 2.5-5.0 H Lab Interpretation (test cod e = 00549-8) [facility]normal [facility] Hospital[facility] 20 + Lactic [id number] 08:39:59* Test Item Value Reference Range Interpretation Comme nts PH (test code = 2) 7.24 7.35-7.45 L PCO2 (test code = 5612299558) 58 See_Comment H [Automated messa ge] The system which generated this result transmitted reference range: 35 - 45 mmHg. The reference range was not used to interpret this result as normal/abnormal. PO2 (test code = 2282637249) 115 See_Comment H [Automated messa ge] The system which generated this result transmitted reference range: 80 - 100 mmHg. The reference range was not used to interpret this result as normal/abnormal. HCO3 (test code = 3833826783) 24 See_Comment [Automated messa ge] The system which generated this result transmitted reference range: 22 - 26 mEq/L. The reference range was not used to interpret this result as normal/abnormal. BE (test code = 9577965028) -3.5 See_Comment L [Automated messa ge] The system which generated this result transmitted reference range: -3.0 - 3.0 mEq/L. The reference range was not used to interpret this result as normal/abnormal. THB (test code = 9337446975) 11.3 g/dL 13.5-18.0 L %O2HB (test code = 7610905624) 97.2 % 94.0-99.0 %COHB ART (test code = 8510540843) 0.7 % 0.0-1.5 %METHB ART (test code = 6977621350) 0.1 % 0.4-1.5 L VOL%O2 ART (test code = 5077393126) 15.6 % 15.0-23.0 NA (test code = 0614070501) 136 mmol/L 135-145 K+ (test code = 7084613330) 4.8 mmol/L 3.5-5.0 AC CA IONZ (test code = 1554224195) 4.80 mg/dL 4.50-5.30 GLUCOSE (test code = 2001803143) 146 mg/dL 70-110 H LACTIC ACID (test code = 5326724998) 1.73 mmol/L 0.50-2.20 QUES Lab Interpretation (test code = 04575-6) Abnormal [facility] WITH [id number] 00:14:28* Test Item Value Reference Range Interpretation [...] g/dL 31.2-35.0 L RDW-SD (test code = 04900-0) 61.1 fL 38.5-51.6 H RDW-CV (test code = 788-0) 19.4 % 12.1-15.4 H PLT (test code = 777-3) 357 See_Comment H [Automated message] The system which generated this result transmitted reference range: 150 - 328 10*3/?L. The reference range was not used to interpret this result as normal/abnormal. MPV (test code = 01704-5) 10.3 fL 9.8-13.0 NRBC/100 WBC (test code = 5070316058) 0.3 See_Comment [Automated message] The system which generated this result transmitted reference range: 0.0 - 10.0 /100 WBCs. The reference range was not used to interpret this result as normal/abnormal. NRBC x10^3 (test code = 3818288668) 0.07 See_Comment [Automated message] The system which generated this result transmitted reference range: 10*3/?L. The reference range was not used to interpret this result as normal/abnormal. GRAN MAT (NEUT) % (test code = 770-8) 76.1 % IMM GRAN % (test code = 4704167477) 4.30 % LYMPH % (test code = 736-9) 4.7 % MONO % (test code = 5905-5) 13.9 % EOS % (test code = 713-8) 0.4 % BASO % (test code = 706-2) 0.6 % GRAN MAT x10^3(ANC) (test code = 3565420651) 17.56 10*3/uL 1.99-6.95 H IMM GRAN x10^3 (test code = 5070050808) 1.00 10*3/uL 0.00-0.06 H LYMPH x10^3 (test [...] result as normal/abnormal. POLYCHROMASIA (test code = 13766-6) 2+ See_Comment [Automated message] The system which generated this result transmitted reference range: 2+. The reference range was not used to interpret this result as normal/abnormal. Lab Interpretation (test code = 84167-6) [facility] [id number] 00:03:04* Test Item Value Reference Range Interpretation Comme [facility] TROPONIN I (test code = 5224466840) 0.612 ng/mL <=0.034 H DANE (test code [...] of biotin. Lab Interpretation (test code = 98187-6) [facility]normal [facility] / [id number] 23:51:26* Test Item Value Reference Range Interpretation Comme nts PROTIME PATIENT (test code = 5964-2) 13.3 See_Comment H [Automated [employer]] The system which generated this result transmitted reference range: 10.1 - 12.6 Seconds. The reference range was not used to interpret this result as normal/abnormal. INR (test code = 6301-6) 1.2 Normal INR <1.1; Warfarin Therapeutic range 2.0 to 3.0 or 2.5 to 3.5, depending upon the indications. Lab Interpretation (test code = 23844-3) [facility]normal [facility] ([facility] Only)2023-03-12 19:25:04* Test Item Value Reference Range Interpretation Comme nts ABO/Rh Confirmation (test co de = 0287224858) A POS [facility] HospitalType and Screen - ONCE [id number] 19:24:54 * Test Item Value Reference Range Interpretation Comme nts ABO & RH (test code = 20) A POS IAT (test code = 1185) NEGATIVE [facility]CBC WITH [id number] 17:03:40* Test Item Value Reference Range Interpretation [...] g/dL 31.2-35.0 L RDW-SD (test code = 23296-6) 62.4 fL 38.5-51.6 H RDW-CV (test code = 788-0) 19.6 % 12.1-15.4 H PLT (test code = 777-3) 356 See_Comment H [Automated message] The system which generated this result transmitted reference range: 150 - 328 10*3/?L. The reference range was not used to interpret this result as normal/abnormal. MPV (test code = 77892-3) 10.0 fL 9.8-13.0 NRBC/100 WBC (test code = 8461209600) 0.2 See_Comment [Automated message] The system which generated this result transmitted reference range: 0.0 - 10.0 /100 WBCs. The reference range was not used to interpret this result as normal/abnormal. NRBC x10^3 (test code = 3049281365) 0.04 See_Comment [Automated message] The system which generated this result transmitted reference range: 10*3/?L. The reference range was not used to interpret this result as normal/abnormal. GRAN MAT (NEUT) % (test code = 770-8) 75.9 % IMM GRAN % (test code = 2152309308) 4.10 % LYMPH % (test code = 736-9) 5.5 % MONO % (test code = 5905-5) 13.4 % EOS % (test code = 713-8) 0.5 % BASO % (test code = 706-2) 0.6 % GRAN MAT x10^3(ANC) (test code = 6670920200) 17.80 10*3/uL 1.99-6.95 H IMM GRAN x10^3 (test code = 9031647740) 0.95 10*3/uL 0.00-0.06 H LYMPH x10^3 (test code = 731-0) 1.29 10*3/uL 1.09-3.23 MONO x10^3 (test code = 742-7) 3.15 10*3/uL 0.36-1.02 H EOS x10^3 (test code = 711-2) 0.11 10*3/uL 0.06-0.53 BASO x10^3 (test code = 704-7) 0.13 10*3/uL 0.01-0.09 H Lab Interpretation (test code = 43006-4) Abnormal [facility] [id number] 16:52:41* Test Item Value Reference Range Interpretation Comme nts TROPONIN I (test code = 8142931764) 0.752 ng/mL <=0.034 H DANE (test code [...] of biotin. Lab Interpretation (test code = 39527-9) Abnormal [facility] / INR - 6 hours after 4- factor PCC (KCENTRA) kekczxasbxatpq2264-21-23 16:40:58* Test Item Value Reference Range Interpretation Comme nts PROTIME PATIENT (test code = 5964-2) 15.4 See_Comment H [Automated [employer]] The system which generated this result transmitted reference range: 10.1 - 12.6 Seconds. The reference range was not used to interpret this result as normal/abnormal. INR (test code = 6301-6) 1.3 Normal INR <1.1; Warfarin Therapeutic range 2.0 to 3.0 or 2.5 to 3.5, depending upon the indications. Lab Interpretation (test code = 93860-7) Abnormal [facility] Hospital[facility] / INR - 30 minutes after 4- factor (KCENTRA) crcxtdttfxktkn0684-48-29 11:03:18* Test Item Value Reference Range Interpretation Comme nts PROTIME PATIENT (test code = 5964-2) 20.1 See_Comment H [Automated [employer]] The system which generated this result transmitted reference range: 10.1 - 12.6 Seconds. The reference range was not used to interpret this result as normal/abnormal. INR (test code = 6301-6) 1.7 Normal INR <1.1; Warfarin Therapeutic range 2.0 to 3.0 or 2.5 to 3.5, depending upon the indications. Lab Interpretation (test code = 22673-2) Abnormal [facility] HospitalTR[facility] [id number] 07:47:54* Test Item Value Reference Range Interpretation Comme [facility] TROPONIN I (test code = 7399425390) 0.621 ng/mL <=0.034 H DANE (test code [...] of biotin. Lab Interpretation (test code = 57529-7) Abnormal [facility] WITH [id number] 07:36:35* Test Item Value Reference Range Interpretation [...] 31.2 g/dL 31.2-35.0 RDW-SD (test code = 28369-3) 60.9 fL 38.5-51.6 H RDW-CV (test code = 788-0) 19.5 % 12.1-15.4 H PLT (test code = 777-3) 343 See_Comment H [Automated message] The system which generated this result transmitted reference range: 150 - 328 10*3/?L. The reference range was not used to interpret this result as normal/abnormal. MPV (test code = 39271-9) 10.1 fL 9.8-13.0 NRBC/100 WBC (test code = 1312668092) 0.1 See_Comment [Automated message] The system which generated this result transmitted reference range: 0.0 - 10.0 /100 WBCs. The reference range was not used to interpret this result as normal/abnormal. NRBC x10^3 (test code = 7893990119) 0.03 See_Comment [Automated message] The system which generated this result transmitted reference range: 10*3/?L. The reference range was not used to interpret this result as normal/abnormal. GRAN MAT (NEUT) % (test code = 770-8) 77.1 % IMM GRAN % (test code = 7937648183) 4.00 % LYMPH % (test code = 736-9) 5.1 % MONO % (test code = 5905-5) 12.6 % EOS % (test code = 713-8) 0.5 % BASO % (test code = 706-2) 0.7 % GRAN MAT x10^3(ANC) (test code = 7328090259) 15.75 10*3/uL 1.99-6.95 H IMM GRAN x10^3 (test code = 2217738248) 0.82 10*3/uL 0.00-0.06 H LYMPH x10^3 (test code = 731-0) 1.05 10*3/uL 1.09-3.23 L MONO x10^3 (test code = 742-7) 2.58 10*3/uL 0.36-1.02 H EOS x10^3 (test code = 711-2) 0.11 10*3/uL 0.06-0.53 BASO x10^3 (test code = 704-7) 0.14 10*3/uL 0.01-0.09 H Lab Interpretation (test code = 49203-4) Abnormal [facility] HospitalLIPID PANEL (52005)(TOTAL CHOLESTEROL, TRIGLYCERIDES, HDL)2023-03-12 07:36:15* Test Item Value Reference Range Interpretation Comme nts CHOL (test code = 0118982164) 112 mg/dL 120-200 L HDL (test code = 5716149834) 28 mg/dL >=40 L HDLC RATIO (test code = 2160507955) 4.0 <=5.0 TRIG (test code = 8505191841) 135 mg/dL 30-170 LDL CHOL (test code = 72469-5) 57 mg/dL <=160 VLDL (test code = 9404163725) 27 mg/dL 5-60 Lab Interpretation (test cod e = 94886-8) Abnormal [facility] HospitalHEPATIC FUNCTION PANEL (24523) (ALB,T.PRO,BILI T,BU/BC,ALT,AST,ALK PHOS)2023-03-12 07:36:15* Test Item Value Reference Range Interpretation Comme nts TOTAL BILI (test code = 5668529667) 1.9 mg/dL 0.1-1.1 H BILI UNCON (test code = 4463537900) 0.3 mg/dL 0.1-1.1 BILI CONJ (test code = 5630866335) 0.1 mg/dL 0.0-0.3 T PROTEIN (test code = 2930485284) 6.4 g/dL 6.3-8.2 ALBUMIN (test code = 5873081041) 3.3 g/dL 3.5-5.0 L ALK PHOS (test code = 4106147029) 174 U/L 34-122 H ALTv (test code = 1742-6) 68 U/L 5-50 H AST(SGOT) (test code = 5197226493) 80 U/L 13-40 H Lab Interpretation (test cod e = 71346-9) Abnormal [facility] HospitalMAGN[facility]IUM2023-09-02 07:36:15* Test Item Value Reference Range Interpretation Comme nts MAGNESIUM (test code = 2537300973) 2.2 mg/dL 1.7-2.4 Lab Interpretation (test cod e = 47592-4) Normal [facility] HospitalBASI METABOLIC PANEL (NA, K, CL, CO2, GLUCOSE, BUN, CREATININE, CA)2023-03-12 07:36:14* Test Item Value Reference Range Interpretation Comme nts NA (test code = 5536487861) 135 mmol/L 135-145 K (test code = 4762725026) 4.2 mmol/L 3.5-5.0 CL (test code = 0976652451) 97 mmol/L 98-108 L CO2 TOTAL (test code = 4669205095) 26 mmol/L 23-31 AGAP (test code = 7512488180) 12 2-16 BUN (test code = 2953966095) 29 mg/dL 7-23 H GLUCOSE (test code = 0421036505) 128 mg/dL 70-110 H CREATININE (test code = 8678570682) 6.00 mg/dL 0.60-1.25 H CALCIUM (test code = 8669046405) 8.7 mg/dL 8.6-10.6 eGFR (test code = 2682867206) 9.4 mL/min/1.73m2 DANE (test code = DANE) [...] imaging tests). Lab Interpretation (test code = 32505-6) Abnormal [facility] HospitalProthrombin Time / [id number] 07:25:37* Test Item Value Reference Range Interpretation Comme nts PROTIME PATIENT (test code = 5964-2) See_Comment [...] the indications. Lab Interpretation (test code = 27467-1) Abnormal [facility] HospitalFIBRINOGEN2023-09-02 07:25:37* Test Item Value Reference Range Interpretation Comme [facility] Fibrinogen (test code = 4702580577) 959 mg/dL 167-453 H Lab Interpretation (test cod e = 76188-3) Abnormal [facility] HospitalAC Panel 20 + Lactic Pzmk4607-13-10 07:15:04* Test Item Value Reference Range Interpretation Comme nts PH (test code = 2) 7.34 7.35-7.45 L PCO2 (test code = 4281001735) 51 See_Comment H [Automated messa ge] The system which generated this result transmitted reference range: 35 - 45 mmHg. The reference range was not used to interpret this result as normal/abnormal. PO2 (test code = 0840901608) 116 See_Comment H [Automated messa ge] The system which generated this result transmitted reference range: 80 - 100 mmHg. The reference range was not used to interpret this result as normal/abnormal. HCO3 (test code = 9636326737) 26 See_Comment [Automated messa ge] The system which generated this result transmitted reference range: 22 - 26 mEq/L. The reference range was not used to interpret this result as normal/abnormal. BE (test code = 8436605514) 0.0 See_Comment [Automated messa ge] The system which generated this result transmitted reference range: -3.0 - 3.0 mEq/L. The reference range was not used to interpret this result as normal/abnormal. THB (test code = 5778650335) 10.7 g/dL 13.5-18.0 L %O2HB (test code = 1692380216) 97.1 % 94.0-99.0 %COHB ART (test code = 4137019147) 0.9 % 0.0-1.5 %METHB ART (test code = 8826469456) 0.1 % 0.4-1.5 L VOL%O2 ART (test code = 5631975491) 14.8 % 15.0-23.0 L NA (test code = 3453784926) 135 mmol/L 135-145 K+ (test code = 7434104612) 4.1 mmol/L 3.5-5.0 AC CA IONZ (test code = 1311179635) 4.60 mg/dL 4.50-5.30 GLUCOSE (test code = 4792615613) 122 mg/dL 70-110 H LACTIC ACID (test code = 3552305020) 1.82 mmol/L 0.50-2.20 QUES Lab Interpretation (test code = 21957-8) Abnormal [facility] W/PLT COUNT & AUTO DJYSGVMLZAYN9018-33-28 05:44:18* Test Item Value Reference Range Interpretation [...] = 2801) 1.00 % 0.00-1.00 BASIC METABOLIC [id number] 05:33:01* Test Item Value Reference Range Interpretation [...] GFR is not applicable for dialysis patients Speech Pathology Assistant ID - QWHBVTSEHWLA6217-34-38 05:29:51* Test Item Value Reference Range Interpretation Comme nts PHOSPHORUS (BEAKER) (test co de = 604) 7.3 mg/dL 2.3-4.7 H Speech Pathology Assistant ID - [id number] 05:29:50* Test Item Value Reference Range Interpretation Comme nts MAGNESIUM (BEAKER) (test cod e = 627) 1.9 mg/dL 1.6-2.6 Speech Pathology Assistant ID - MMPROTHROMBIN TIME/VAQ2175-88-54 05:11:25* Test Item Value Reference Range Interpretation Comme nts PROTIME (BEAKER) (test code = 759) 34.4 seconds 11.9-14.2 H INR (BEAKER) (test code = 370) 3.54 See_Comment [Automated IN[employer]HARMAa ge] The system which generated this result transmitted reference range: <=5.90. The reference range was not used to interpret this result as normal/abnormal. RECOMMENDED COUMADIN/WARFARIN INR THERAPY RANGESSTANDARD DOSE: 2.0 - 3.0 Includes: PROPHYLAXIS for venous thrombosis, systemic embolization; TREATMENT for venous thrombosis and/or pulmonary embolus.HIGH RISK: Target INR is 2.5-3.5 for patients with mechanical heart valves.BASIC METABOLIC [id number] 07:50:42* Test Item Value Reference Range Interpretation [...] GFR is not applicable for dialysis patients Speech Pathology Assistant ID - EMOperator ID - XHSKPZEPXQAK7065-44-76 06:23:25* Test Item Value Reference Range Interpretation Comme nts PHOSPHORUS (BEAKER) (test co de = 604) 6.3 mg/dL 2.3-4.7 H Speech Pathology Assistant ID - PXQSRUFNHDX0071-54-20 06:23:24* Test Item Value Reference Range Interpretation Comme nts MAGNESIUM (BEAKER) (test cod e = 627) 1.9 mg/dL 1.6-2.6 Speech Pathology Assistant ID - EMCBC W/PLT COUNT & AUTO TPZWFMSRPPSF9745-93-38 05:08:59* Test Item Value Reference Range Interpretation [...] = 2801) 1.30 % 0.00-1.00 H PROTHROMBIN TIME/EMP6906-94-50 05:05:09* Test Item Value Reference Range Interpretation Comme nts PROTIME (BEAKER) (test code = 759) 36.3 seconds 11.9-14.2 H INR (BEAKER) (test code = 370) 3.79 See_Comment [Automated [employer]AR[employer]a ge] The system which generated this result transmitted reference range: <=5.90. The reference range was not used to interpret this result as normal/abnormal. RECOMMENDED COUMADIN/WARFARIN INR THERAPY RANGESSTANDARD DOSE: 2.0 - 3.0 Includes: PROPHYLAXIS for venous thrombosis, systemic embolization; TREATMENT for venous thrombosis and/or pulmonary embolus.HIGH RISK: Target INR is 2.5-3.5 for patients with mechanical heart valves.PROTHROMBIN TIME/PSK1742-04-41 05:01:14* Test Item Value Reference Range Interpretation Comme nts PROTIME (BEAKER) (test code = 759) 36.8 seconds 11.9-14.2 H INR (BEAKER) (test code = 370) 4.03 See_Comment [[employer]] The system which generated this result transmitted reference range: <=5.90. The reference range was not used to interpret this result as normal/abnormal. RECOMMENDED COUMADIN/WARFARIN INR THERAPY RANGESSTANDARD DOSE: 2.0 - 3.0 Includes: PROPHYLAXIS for venous thrombosis, systemic embolization; TREATMENT for venous thrombosis and/or pulmonary embolus.HIGH RISK: Target INR is 2.5-3.5 for patients with mechanical heart valves.PROTHROMBIN TIME/SLI6641-93-28 15:10:51* Test Item Value Reference Range Interpretation Comme nts PROTIME (BEAKER) (test code = 759) 34.0 seconds 11.9-14.2 H INR (BEAKER) (test code = 370) 3.49 See_Comment [[employer]] The system which generated this result transmitted reference range: <=5.90. The reference range was not used to interpret this result as normal/abnormal. RECOMMENDED COUMADIN/WARFARIN INR THERAPY RANGESSTANDARD DOSE: 2.0 - 3.0 Includes: PROPHYLAXIS for venous thrombosis, systemic embolization; TREATMENT for venous thrombosis and/or pulmonary embolus.HIGH RISK: Target INR is 2.5-3.5 for patients with mechanical heart valves.[id number] 10:54:17* Test Item Value Reference Range Interpretation Comme nts PARTIAL THROMBOPLASTIN TIME (BEAKER) (test code = 760) > seconds 22.5-36.0 HH PROTHROMBIN TIME/CAC9609-42-26 10:27:37* Test Item Value Reference Range Interpretation Comme nts PROTIME (BEAKER) (test code = 759) 31.7 seconds 11.9-14.2 H INR (BEAKER) (test code = 370) 3.19 See_Comment [[employer]] The system which generated this result transmitted reference range: <=5.90. The reference range was not used to interpret this result as normal/abnormal. RECOMMENDED COUMADIN/WARFARIN INR THERAPY RANGESSTANDARD DOSE: 2.0 - 3.0 Includes: PROPHYLAXIS for venous thrombosis, systemic embolization; TREATMENT for venous thrombosis and/or pulmonary embolus.HIGH RISK: Target INR is 2.5-3.5 for patients with mechanical heart valves.BASIC METABOLIC [id number] 05:06:30* Test Item Value Reference Range Interpretation [...] GFR is not applicable for dialysis patients Speech Pathology Assistant ID - XEFOYXJCSORVKY7431-23-28 05:02:45* Test Item Value Reference Range Interpretation Comme nts MAGNESIUM (BEAKER) (test code = 627) 1.8 mg/dL 1.6-2.6 Specimen sligh tly hemolyzed Speech Pathology Assistant ID - YUVJCJLKXKBQDIQ9956-32-24 05:02:45* Test Item Value Reference Range Interpretation Comme nts PHOSPHORUS (BEAKER) (test code = 604) 7.6 mg/dL 2.3-4.7 H Specimen sligh tly hemolyzed Speech Pathology Assistant ID - ADMINCBC W/PLT COUNT & AUTO KRNVSWOFZDRJ4342-64-91 04:32:15* Test Item Value Reference Range Interpretation [...] code = 2801) 1.80 % 0.00-1.00 H [id number] 21:18:31* Test Item Value Reference Range Interpretation Comme nts PARTIAL THROMBOPLASTIN TIME (BEAKER) (test code = 760) 40.8 seconds 22.5-36.0 H [id number] 19:29:06* Test Item Value Reference Range Interpretation Comme nts PARTIAL THROMBOPLASTIN TIME (BEAKER) (test code = 760) 113.6 seconds 22.5-36.0 H [id number] 12:10:37* Test Item Value Reference Range Interpretation Comme nts PARTIAL THROMBOPLASTIN TIME (BEAKER) (test code = 760) 66.5 seconds 22.5-36.0 H [id number] 10:21:32* Test Item Value Reference Range Interpretation Comme nts PARTIAL THROMBOPLASTIN TIME (BEAKER) (test code = 760) 153.8 seconds 22.5-36.0 HH [id number] 05:54:42* Test Item Value Reference Range Interpretation Comme nts PARTIAL THROMBOPLASTIN TIME (BEAKER) (test code = 760) 81.8 seconds 22.5-36.0 H BASIC METABOLIC [id number] 04:31:53* Test Item Value Reference Range Interpretation [...] GFR is not applicable for dialysis patients Speech Pathology Assistant ID - WALESKA ZAKIZTMIYKE6713-63-11 04:19:32* Test Item Value Reference Range Interpretation Comme nts PHOSPHORUS (BEAKER) (test co de = 604) 6.3 mg/dL 2.3-4.7 H Speech Pathology Assistant ID - WALESKA [id number] 04:19:31* Test Item Value Reference Range Interpretation Comme nts MAGNESIUM (BEAKER) (test cod e = 627) 1.8 mg/dL 1.6-2.6 Speech Pathology Assistant ID - WALESKA WPROTHROMBIN TIME/QUQ1880-34-61 03:56:49* Test Item Value Reference Range Interpretation Comme nts PROTIME (BEAKER) (test code = 759) 16.9 seconds 11.9-14.2 H INR (BEAKER) (test code = 370) 1.46 See_Comment [Automated [employer]] The system which generated this result transmitted [...] code = 2801) 2.00 % 0.00-1.00 H [id number] 22:13:49* Test Item Value Reference Range Interpretation Comme nts PARTIAL THROMBOPLASTIN TIME (BEAKER) (test code = 760) 48.7 seconds 22.5-36.0 H [id number] 16:03:16* Test Item Value Reference Range Interpretation Comme nts PARTIAL THROMBOPLASTIN TIME (BEAKER) (test code = 760) 82.9 seconds 22.5-36.0 H [id number] 09:09:45* Test Item Value Reference Range Interpretation Comme nts PARTIAL THROMBOPLASTIN TIME (BEAKER) (test code = 760) 101.6 seconds 22.5-36.0 H BASIC METABOLIC [id number] 03:00:56* Test Item Value Reference Range Interpretation [...] GFR is not applicable for dialysis patients Speech Pathology Assistant ID - ILBWNJTTUMUDOU4498-00-59 02:58:45* Test Item Value Reference Range Interpretation Comme nts MAGNESIUM (BEAKER) (test code = 627) 1.8 mg/dL 1.6-2.6 Specimen sligh tly hemolyzed Speech Pathology Assistant ID - MSLWAJRHGKRIHIS8891-49-33 02:58:45* Test Item Value Reference Range Interpretation Comme nts PHOSPHORUS (BEAKER) (test code = 604) 5.6 mg/dL 2.3-4.7 H Specimen sligh tly hemolyzed Speech Pathology Assistant ID - [id number] 02:15:00* Test Item Value Reference Range Interpretation Comme nts PARTIAL THROMBOPLASTIN TIME (BEAKER) (test code = 760) 72.9 seconds 22.5-36.0 H CBC W/PLT COUNT & AUTO IDLHPIUZYMMX1544-19-61 02:05:07* Test Item Value Reference Range Interpretation [...] 0.00-1.00 H CBC W/PLT COUNT & AUTO GOEWXMJMLKXU8834-08-93 05:10:30* Test Item Value Reference Range Interpretation [...] CONCENTRATION (CELLAVISION)(BEAKER) (test code = 3438) Adequate Speech Pathology Assistant ID - Barbara Blanca comments: Slide comments:BASIC [...] GFR is not applicable for dialysis patients Speech Pathology Assistant ID Stanley GALEANO [id number] 04:39:51* Test Item Value Reference Range Interpretation Comme nts PHOSPHORUS (BEAKER) (test co de = 604) 7.1 mg/dL 2.3-4.7 H Speech Pathology Assistant ID - WALESKA MQAUICLNQT3664-10-57 04:39:50* Test Item Value Reference Range Interpretation Comme nts MAGNESIUM (BEAKER) (test cod e = 627) 1.9 mg/dL 1.6-2.6 Speech Pathology Assistant ID Stanley GALEANO YAJWV2219-14-22 04:19:40* Test Item Value Reference Range Interpretation Comme nts PARTIAL THROMBOPLASTIN TIME (BEAKER) (test code = 760) 35.9 seconds 22.5-36.0 [id number] 04:19:05* Test Item Value Reference Range Interpretation Comme nts FIBRINOGEN LEVEL (BEAKER) (t est code = 658) 582 mg/dl 225-434 H PROTHROMBIN TIME/XPQ6080-22-71 04:19:01* Test Item Value Reference Range Interpretation Comme nts PROTIME (BEAKER) (test code = 759) 16.3 seconds 11.9-14.2 H INR (BEAKER) (test code = 370) 1.39 See_Comment [Automated [employer]HARMAa ge] The system which generated this result transmitted reference range: <=5.90. The reference range was not used to interpret this result as normal/abnormal. RECOMMENDED COUMADIN/WARFARIN INR THERAPY RANGESSTANDARD DOSE: 2.0 - 3.0 Includes: PROPHYLAXIS for venous thrombosis, systemic embolization; TREATMENT for venous thrombosis and/or pulmonary embolus.HIGH RISK: Target INR is 2.5-3.5 for patients with mechanical heart valves.[id number] 21:09:53* Test Item Value Reference Range Interpretation Comme nts FIBRINOGEN LEVEL (STEPHANIAAKER) (t est code = 658) 636 mg/dl 225-434 H [id number] 18:13:03* Test Item Value Reference Range Interpretation Comme nts FIBRINOGEN LEVEL (HERB) (t est code = 658) 681 mg/dl 225-434 H XR CHEST 1 VIEW PORTABLE / [id number] 14:24:57 [facility] [place] [facility] : 1955 Sex: MCLINICAL HISTORY: baseline CXR TECHNIQUE: 1 view of the chest.COMPARISON: 02/11/2023IMPRESSION:There sally new right pulmonary artery infusion catheter. Prominence ofthe central pulmonary vasculature is again seen. There is no new lobarconsolidation or increasing pleural fluid. The cardiomediastinalsilhouette is magnified by technique.Electronically Signed By: Erlin Reed02/25/2023 14:27 CDTWorkstation Name: [id number] FUNCTION [id number] 11:51:57* Test Item Value Reference Range Interpretation Comme nts TOTAL PROTEIN (STEPHANIAAKER) (test code = 770) 6.5 gm/dL 6.0-8.3 [...] 39 U/L 6-55 Specimen sligh tly hemolyzed Speech Pathology Assistant ID - BVHIGH SENSITIVITY TROPONIN [id number] 09:24:35* Test Item Value Reference Range Interpretation Comme nts HIGH SENSITIVITY TROPONIN I (test code = 6851562) 120 pg/ml See_Comment H [Automated INTEGRATED BIOPHARMAa ge] The system which generated this result transmitted reference range: <=35. The reference range was not used to interpret this result as normal/abnormal. Speech Pathology Assistant ID - Chelsy DRIVER RECRUITER STAT High Sensitivity Troponin-I results should be used in conjunction with other diagnostic information such as ECG, clinical observations and information, and patient symptoms to aid in the diagnosis of AL.BASIC METABOLIC [id number] 07:03:40* Test Item Value Reference Range Interpretation [...] GFR is not applicable for dialysis patients Speech Pathology Assistant ID - MZMOSVORBAUVDH1550-11-92 06:53:55* Test Item Value Reference Range Interpretation Comme nts MAGNESIUM (STEPHANIAAKER) (test cod e = 627) 2.0 mg/dL 1.6-2.6 Speech Pathology Assistant ID - [id number] 06:53:55* Test Item Value Reference Range Interpretation Comme nts PHOSPHORUS (HERB) (test co de = 604) 6.7 mg/dL 2.3-4.7 H Speech Pathology Assistant ID - MARCOB-TYPE NATRIURETIC FACTOR (BNP)2023-02-25 06:39:40* Test Item Value Reference Range Interpretation Comme nts B-TYPE NATRIURETIC PEPTIDE ( HERB) (test code = 700) 72 pg/mL 0-100 Speech Pathology Assistant ID - ADMINHIGH SENSITIVITY TROPONIN [id number] 06:39:32* Test Item Value Reference Range Interpretation Comme nts HIGH SENSITIVITY TROPONIN I (test code = 5984557) 109 pg/ml See_Comment H [Automated INTEGRATED BIOPHARMAa [employer]] The system which generated this result transmitted reference range: <=35. The reference range was not used to interpret this result as normal/abnormal. Speech Pathology Assistant ID - ADMINThe DRIVER RECRUITER STAT High Sensitivity Troponin-I results should be used in conjunction with other diagnostic information such as ECG, clinical observations and information, and patient symptoms to aid in the diagnosis of AL.CBC W/PLT COUNT & AUTO [id number] 06:33:25* Test Item Value Reference Range Interpretation Comme nts WHITE BLOOD CELL COUNT (BEAK ER) (test code = 775) 13.7 K/ [...] code = 2801) 1.20 % 0.00-1.00 H [id number] 06:32:29* Test Item Value Reference Range Interpretation Comme nts PARTIAL THROMBOPLASTIN TIME (BEAKER) (test code = 760) 68.9 seconds 22.5-36.0 H CBC W/AUTO [id number] 16:45:00* Test Item Value Reference Range Interpretation [...] = MDIFF) NO DIFF/SCN CRITERIA BASIC METABOLIC [id number] 16:04:00* Test Item Value Reference Range Interpretation [...] L QNS NOT ENOUGH I CONTACT YOEL DIETZ RESULT- DUP VEIN UNI [id number] 12:37:00 [facility] 1955 Sex: M Name: IRA RAYA [facility] : 1955 Age/S: 67 / M [address] Unit #: [id number] Loc: [place] [address] Phys: Erlin George MD Acct: [id number] Dis Date: Status: ADM INPHONE #: [phone] Exam Date: 02/19/2023 1103 FAX #: Reason: fistula eval for flow EXAMS: CPT: [id number] [facility] [place] [address] EXAM: LEFT UPPER EXTREMITY VENOUS DUPLEX ULTRASOUND INDICATION: Fistula malfunction COMPARISON: None TECHNIQUE: Merritt scale, color Doppler and spectral waveform analysis of the left upper extremity deep venous system was performed. 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 There is partial flow noted at the anastomosis.SUBCLAVIAN: Not visualized. AXILLARY: Fully compressible with normal [...] MD; Ira Ramirez MD Technologist: ALEXANDER WILBURN [facility] Date/Time: 02/19/2023 (1237) 16 PAGE 1 Signed Report Name: IRA RAYA [facility] : 1955 Age/S: 67 / M [address] Unit #: [id number] Loc: [place] [address] Phys: Erlin George MD Acct:[id number] Dis Date: Status: ADM IN PHONE #: [phone] Exam Date: 02/19/2023 110 FAX #: Reason: fistula eval for flow EXAMS: CPT: [id number] [place] [address] (Continued) Orig Print D/T: S: 02/19/2023 (1240) Probe: PAGE 2 Signed ReportCBC W/AUTO [id number] 12:16:00* Test Item Value Reference Range Interpretation [...] REVIEW CONSISTANT WITH AUTO DIFFERENTIAL. COMPREHENSIVE METABOLIC [id number] 11:25:00* Test Item Value Reference Range Interpretation [...] Unit/L 50-136 N - XR CHEST 1 [id number] 09:42:00 [facility] : 1955 Sex: M Name: IRA RAYA [facility] : 1955 Age/S: 67 / M [address] Unit #: [id number] Loc: [place] [address] Phys: Erlin George MD Acct: [id number] Dis Date: Status: REG ER PHONE #: [phone] Exam Date: 02/19/2023 0939 FAX #: Reason: missed dialysis EXAMS: CPT: [id number] XR CHEST 1 V 59572 Fluoro Time: DAP (Gy m2): Air Kerma (mGy): EXAM: CHEST ONE VIEW INDICATION: MISSED DIALYSIS LOCATION: B2 COMPARISON: November 15, 2021 TECHNIQUE: AP view of the chest FINDINGS: The heart size is normal. The lungs are clear bilaterally. The pulmonary vasculature is normal. No pneumothorax or pleural effusion is identified. The osseous structures are normal. IMPRESSION: No acute cardiopulmonary process. at 0942 Reported and signed by: Zara Cuba M.D. CC: rElin George MD; Ira Ramirez MD PAGE 1 SignedReport Name: IRA RAYA [facility] : 1955 Age/S: 67 / M [address] Unit #: [id number] Loc: [place] [address] Phys: Erlin George MD Acct: [id number] Dis Date: Status: REG ER PHONE #: [phone] Exam Date: 02/19/2023 0939 FAX #: Reason: missed dialysis EXAMS: CPT: [id number] XR CHEST 1 V 12854 Fluoro Time: DAP (Gy m2): Air Kerma (mGy): (Continued) Technologist:RT Haleigh(R) Trnscb Date/Time: 02/19/2023 (941) 16 Orig Print D/T: S: 02/20/20 23 (0923) PAGE 2 Signed ReportPOCT-GLUCOSE [id number] 12:47:50* Test Item Value Reference Range Interpretation Comme [facility] POC-GLUCOSE METER (BEAKER) (test code = 1538) 107 mg/dL 70-110 : TESTED AT [address] [address]: Speech Pathology Assistant/Fill Manager ID = [id number] for Nova Dumont TISSUE [id number] 12:20:55Surgical Pathology Report Case: [id number] Authorizing Provider: Geeta Montero MD Collected: 02/13/2023 08:34 AM Ordering Location: [facility] ICU Received: 02/14/2023 09:01 AM Pathologist: Yessy Vazquez MD Specimens: A) - Biopsy, Gastric B) - Cecum C) - Polyp, Colon - Transverse D) - Large Intestine, Colon - Sigmoid This addendum is issued to report the result of immunohistochemical study for CMV on C1:- NEGATIVE The interpretation of this case included the use of immunohistochemistryor special stains. HELICOBACTER PYLORIImmunohistochemistry technical testing was performed at [facility], Pathology Laboratory where it was [...] complexity clinical laboratory testing. ADDITIONAL CPT CODE: 85878 Addendum electronically signed by Yessy Vazquez MD on 02/17/2023 at 12:20 PMThis addendum is issued to report the result of immunohistochemical study for Helicobacter pylori on A1:- NEGATIVE The interpretation of this case included the use of immunohistochemistry or special stains. HELICOBACTER PYLORIImmunohistochemistry technical testing was performed at [facility], Pathology Laboratory where it was developed and its performance characteristics were determined. It has not been cleared orapproved by the U.S. Food and Drug Administration. The FDA has determined that such clearance or approval is not necessary. The test is used for clinical purposes. It should not be regarded as investigational or for research. This laboratory is certified under the Clinical Laboratory Improvement Amendments of 1988 (CLIA-88) as qualified to perform high complexity clinical laboratory testing. 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 Clinical correlation is [id number] X 4Gastrointestinal hemorrhage, unspecified gastrointestinal hemorrhage typeA. [...] patient's name, medical record number and labeled "colon-sigmoid" are multiple fragments of hooks mucosal tissue 0.5 x 0.5 x 0.1 cm in aggregate. Submitted entirely cassette labeled D1. BH/[id number] 06:37:35* Test Item Value Reference Range Interpretation Comme nts PHOSPHORUS (BEAKER) (test co de = 604) 8.5 mg/dL 2.5-4.5 H Speech Pathology Assistant ID - [id number] ID - [id number] ID - [id number] ID - [id number] METABOLIC [id number] 06:37:22* Test Item Value Reference Range Interpretation [...] GFR is not applicable for dialysis patients Speech Pathology Assistant ID - [id number] ID - [id number] ID - [id number] ID - [id number] ID- FATWG124Ovujclgj ID - NUWIA174Pcwumrdx ID - KDMUF503Ghewuagq ID - GYEUB713Ahnnrqty ID - MHDHW780Nnzexbmp ID - [id number] W/PLT COUNT & AUTO [id number] 06:14:44* Test Item Value Reference Range Interpretation [...] = 2801) 1.20 % 0.00-0.00 H BLOOD [id number] 04:00:32* Test Item Value Reference Range Interpretation Comme nts CULTURE (BEAKER) (test code = 1095) No growth in 5 days BLOOD [id number] 01:00:24* Test Item Value Reference Range Interpretation Comme nts CULTURE (BEAKER) (test code = 1095) No growth in 5 days POCT-GLUCOSE [id number] 21:50:51* Test Item Value Reference Range Interpretation Comme nts POC-GLUCOSE METER (BEAKER) (test code = 1538) 128 mg/dL 70-110 H : TESTED AT [place] [address]: Speech Pathology Assistant/Fill Manager ID = [id number] for Tere Tam POCT-GLUCOSE [id number] 16:27:39* Test Item Value Reference Range Interpretation Comme nts POC-GLUCOSE METER (BEAKER) (test code = 1538) 82 mg/dL 70-110 : TESTED AT [place] [address]: Speech Pathology Assistant/Fill Manager ID = [id number] for Silvia Ritter POCT-GLUCOSE [id number] 14:31:34* Test Item Value Reference Range Interpretation Comme nts POC-GLUCOSE METER (BEAKER) (test code = 1538) 108 mg/dL 70-110 : TESTED AT [place] [address]: Speech Pathology Assistant/Fill Manager ID = [id number] for Shelby Smith POCT-GLUCOSE [id number] 12:55:59* Test Item Value Reference Range Interpretation Comme nts POC-GLUCOSE METER (BEAKER) (test code = 1538) 72 mg/dL 70-110 : TESTED AT [place] [address]: Speech Pathology Assistant/Fill Manager ID = [id number] for Silvia Ritter POCT-GLUCOSE [id number] 06:43:42* Test Item Value Reference Range Interpretation Comme nts POC-GLUCOSE METER (BEAKER) (test code = 1538) 110 mg/dL 70-110 : TESTED AT [place] [address]: Speech Pathology Assistant/Fill Manager ID = [id number] for Nadege Zhang [id number] 05:47:11* Test Item Value Reference Range Interpretation Comme nts PHOSPHORUS (BEAKER) (test co de = 604) 10.1 mg/dL 2.5-4.5 HH Speech Pathology Assistant ID - [id number] ID - DFPY00Uvncdxqe ID - FUWN77Mcmekphy ID - [id number] BASIC METABOLIC [id number] 05:46:02* Test Item Value Reference Range Interpretation [...] GFR is not applicable for dialysis patients Speech Pathology Assistant ID - [id number] ID - [id number] ID - ISOS53Xyzrkqgb ID - WLWQ03Ylqnhnnc ID - JRZV96Ldomzezv ID - NYBM80Swktwlxp ID - CTZI37Atxqxpxt ID - ATFB18Ximgdcyb ID - JKTE30Ioblrqdq ID - [id number] W/PLT COUNT & AUTO [id number] 05:24:17* Test Item Value Reference Range Interpretation [...] = 2801) 0.80 % 0.00-0.00 H POCT-GLUCOSE [id number] 22:07:18* Test Item Value Reference Range Interpretation Comme nts POC-GLUCOSE METER (BEAKER) (test code = 1538) 107 mg/dL 70-110 : TESTED AT [address] [address]: Speech Pathology Assistant/Fill Manager ID = [id number] for Nadege Zhang POCT-GLUCOSE [id number] 17:16:54* Test Item Value Reference Range Interpretation Comme nts POC-GLUCOSE METER (BEAKER) (test code = 1538) 148 mg/dL 70-110 H : TESTED AT [place] [address]: Speech Pathology Assistant/Fill Manager ID = [id number] for Ashley Sanchez POCT-GLUCOSE [id number] 12:35:24* Test Item Value Reference Range Interpretation Comme nts POC-GLUCOSE METER (BEAKER) (test code = 1538) 110 mg/dL 70-110 : TESTED AT [place] [address]: Speech Pathology Assistant/Fill Manager ID = [id number] for Ashley Sanchez IQRKPHNHWQ0479-19-13 10:54:51* Test Item Value Reference Range Interpretation Comme nts PHOSPHORUS (BEAKER) (test code = 604) 9.2 mg/dL 2.5-4.5 [facility] Speech Pathology Assistant ID - [id number]-XPNUYAA [id number] 07:07:20* Test Item Value Reference Range Interpretation Comme nts POC-GLUCOSE METER (BEAKER) (test code = 1538) 108 mg/dL 70-110 : TESTED AT [place] [address]: Speech Pathology Assistant/Fill Manager ID = [id number] for Bel Fernandez BASIC METABOLIC [id number] 06:50:04* Test Item Value Reference Range Interpretation [...] GFR is not applicable for dialysis patients Speech Pathology Assistant ID - [id number] ID - [id number] ID - [id number] ID - ADHUA181Cmbcfjig ID- UZBBK429Ebfzihli ID - KVGRR474Srcyunxs ID - GWYCQ616Ctlpozkb ID - HFRDZ156Ltipqecq ID - VJFLF806Pkjxjprs ID - FNSRA046Xlxbqtkv ID - LASKZ105Utblrplg ID - WYPGK059Lkpufotp ID - [id number]. DIFFICILE GDH [id number] 03:56:51* Test Item Value Reference Range Interpretation Comme nts CDT TOXIN (test code = 7497087856) Negative Negative CDT GDH ANTIGEN (test code = 7566787634) Negative Negative No indication of Clostridium difficile infection and no colonization. Discontinue enteric isolation and therapy. Testing performed by [employer] Rapid Cassette Assay. For GDH, published sensitivity of the assay is 98.7% compared to cytotoxicity testing. For Toxin AB, published sensitivity is 87.8% and specificity 99.4% compared to cytotoxicity testing.Verification of kit performance was done by the [facility] Microbiology Lab prior to clinical use.POCT-GLUCOSE [id number] 22:01:51* Test Item Value Reference Range Interpretation Comme nts POC-GLUCOSE METER (BEAKER) (test code = 1538) 101 mg/dL 70-110 : TESTED AT [address] [address]: Speech Pathology Assistant/Fill Manager ID = [id number] for Bel Fernandez POCT-GLUCOSE [id number] 17:05:30* Test Item Value Reference Range Interpretation Comme nts POC-GLUCOSE METER (Prismatic) (test code = 1538) 114 mg/dL 70-110 H : TESTED AT [address] [address]: Speech Pathology Assistant/Fill Manager ID = [id number] for Yesi Phillips POCT-GLUCOSE [id number] 13:12:54* Test Item Value Reference Range Interpretation Comme nts POC-GLUCOSE METER (BEAKER) (test code = 1538) 157 mg/dL 70-110 H : TESTED AT [place] [address]: Speech Pathology Assistant/Fill Manager ID = [id number] for Yesi Phillips POCT-GLUCOSE [id number] 06:31:51* Test Item Value Reference Range Interpretation Comme nts POC-GLUCOSE METER (BEAKER) (test code = 1538) 99 mg/dL 70-110 : TESTED AT [place] [address]: Speech Pathology Assistant/Fill Manager ID = [id number] for Cathi Duque [id number] 06:14:35* Test Item Value Reference Range Interpretation Comme nts PHOSPHORUS (BEAKER) (test code = 604) 8.8 mg/dL 2.5-4.5 H [facility] Speech Pathology Assistant ID - DSENSON(MANUAL DIFFERENTIAL)2023-02-14 05:52:18* Test Item [...] 961) Present CBC W/PLT COUNT & AUTO [id number] 05:52:12* Test Item Value Reference Range Interpretation [...] code = 413) 0 /100 WBC 0-0 [id number] 05:43:00* Test Item Value Reference Range Interpretation Comme nts PROCALCITONIN (BEAKER) (test code = 3036) 33.92 ng/mL <0.05 HH SEPSIS RISK (ng/mL)Low: 0.05-0.50Intermediate: 0.51-2.00High: >=2.01MAGNESIUM 2023-02-14 05:21:33* Test Item Value Reference Range Interpretation Comme nts MAGNESIUM (BEAKER) (test code = 627) 2.0 mg/dL 1.5-3.0 Specimen sligh tly hemolyzed Speech Pathology Assistant ID - DSENSONOperator ID - DSENSONOperator ID - DSENSONOperator ID - DSENSONBASIC METABOLIC [id number] 05:21:12* Test Item Value Reference Range Interpretation [...] GFR is not applicable for dialysis patients Speech Pathology Assistant ID - DSENSONOperator ID - DSENSONOperator ID - DSENSONOperator ID - DSENSONOperator ID - DSENSONOperator ID - DSENSONOperator ID - DSENSONOperator ID - DSENSONOperator ID - DSENSONOperator ID - DSENSONPOCT-GLUCOSE METER 2023-02-13 21:38:22* Test Item Value Reference Range Interpretation Comme nts POC-GLUCOSE METER (BEAKER) (test code = 1538) 139 mg/dL 70-110 H : TESTED AT [address] [address]: Speech Pathology Assistant/Fill Manager ID = [id number] for Bel Fernandez POCT-GLUCOSE [id number] 16:05:53* Test Item Value Reference Range Interpretation Comme nts POC-GLUCOSE METER (BEAKER) (test code = 1538) 124 mg/dL 70-110 H : Notified RN/MD : TESTED AT [address] [address]: Speech Pathology Assistant/Fill Manager ID = [id number] for [place] XR ABDOMEN/KUB 1 VIEW [id number] 14:34:38 [facility] 1955 Sex: MONE VIEW ABDOMENHISTORY: Abdominal [...] pattern.Electronically Signed By: Rylee Martinez02/13/2023 14:36 CDTWorkstationName: [id number]-UUKZENJ [id number] 11:55:38* Test Item Value Reference Range Interpretation Comme nts POC-GLUCOSE METER (BEAKER) (test code = 1538) 121 mg/dL 70-110 H : Notified RN/MD : TESTED AT [address] [address]: Speech Pathology Assistant/Fill Manager ID = [id number] for [place] HEPATITIS B SURFACE [id number] 11:44:15* Test Item Value Reference Range Interpretation Comme nts HEPATITIS B SURFACE ANTIBODY (BEAKER) (test code = 647) 19.8 mIU/mL <8.0 H Speech Pathology Assistant ID - ADMINPOCT-GLUCOSE [id number] 06:29:04* Test Item Value Reference Range Interpretation Comme nts POC-GLUCOSE METER (BEAKER) (test code = 1538) 133 mg/dL 70-110 H : TESTED AT [facility] [address] [facility] [address]: Speech Pathology Assistant/Fill Manager ID = [id number] for Agueda Wooten (MANUAL DIFFERENTIAL)2023-02-13 05:20:07* Test [...] 762) Normal CBC W/PLT COUNT & AUTO [id number] 05:19:56* Test Item Value Reference Range Interpretation [...] code = 413) 0 /100 WBC 0-0 [id number] 04:47:35* Test Item Value Reference Range Interpretation Comme nts MAGNESIUM (BEAKER) (test cod e = 627) 1.9 mg/dL 1.5-3.0 Speech Pathology Assistant ID - DSENSONOperator ID - DSENSONOperator ID - DSENSONOperator ID - DSENSONBASIC METABOLIC [id number] 04:46:46* Test Item Value Reference Range Interpretation [...] GFR is not applicable for dialysis patients Speech Pathology Assistant ID - DSENSONOperator ID - DSENSONOperator ID - DSENSONOperator ID - DSENSONOperator ID - DSENSONOperator ID - DSENSONOperator ID - DSENSONOperator ID - DSENSONOperator ID - DSENSONOperator ID - FGQNJBLWULXQYDRMH3842-28-22 04:44:55* Test Item Value Reference Range Interpretation Comme nts PHOSPHORUS (BEAKER) (test co de = 604) 7.7 mg/dL 2.5-4.5 H Speech Pathology Assistant ID - DSENSONLACTIC ACID, [id number] 04:31:09* Test Item Value Reference Range Interpretation Comme nts LACTATE BLOOD VENOUS (2) (BEAKER) (test code = 2872) 1.80 mmol/L See_Comment [Automated me ssage] The system which generated this result transmitted reference range: 0.50-<2.00. The reference range was not used to interpret this result as normal/abnormal. HEMOGLOBIN AND [id number] 00:22:52* Test Item Value Reference Range Interpretation Comme nts HEMOGLOBIN (BEAKER) (test co de = 410) 17.8 GM/DL 13.0-16.8 H HEMATOCRIT (BEAKER) (test co de = 411) 58.3 % 36.0-50.0 H POCT-GLUCOSE [id number] 23:52:21* Test Item Value Reference Range Interpretation Comme nts POC-GLUCOSE METER (BEAKER) (test code = 1538) 130 mg/dL 70-110 H : Notified RN/MD : TESTED AT [address] [address]: Speech Pathology Assistant/Fill Manager ID = [id number] for Elisabeth Hernandez BASIC METABOLIC [id number] 19:30:21* Test Item Value Reference Range Interpretation [...] GFR is not applicable for dialysis patients Speech Pathology Assistant ID - [id number] ID - [id number] ID - [id number] ID - [id number] ID- [id number] ID - [id number] ID - [id number] ID - [id number] ID - [id number] ID - [id number] ID - [id number] ID - [id number] ID - [id number] 18:37:05* Test Item Value Reference Range Interpretation Comme nts PROCALCITONIN (BEAKER) (test code = 3036) 34.46 ng/mL <0.05 HH SEPSIS RISK (ng/mL)Low: 0.05-0.50Intermediate: 0.51-2.00High: >=2.01POCT-GLUCOSE [id number] 18:30:14* Test Item Value Reference Range Interpretation Comme nts POC-GLUCOSE METER (Prismatic) (test code = 1538) 112 mg/dL 70-110 H : TESTED AT [facility] [address] [facility] [address]: Speech Pathology Assistant/Fill Manager ID = [id number] for Judit John HEMOGLOBIN AND [id number] 18:13:32* Test Item Value Reference Range Interpretation Comme nts HEMOGLOBIN (BEAKER) (test co de = 410) 17.6 GM/DL 13.0-16.8 H HEMATOCRIT (BEAKER) (test co de = 411) 55.4 % 36.0-50.0 H GI PATHOGEN PROFILE BY [id number] 15:36:43* Test Item Value Reference Range Interpretation Comme nts CAMPYLOBACTER (PCR) (test co de = 20160113) Not detected Not detected PLESIOMONAS SHIGELLOIDES (PC R) (test code = 20160117) Not detected Not detected SALMONELLA (PCR) (test code = 0791991) Not detected Not detected YERSINIA ENTEROCOLITICA (PCR ) (test code = 2423913) Not detected Not detected VIBRIO CHOLERAE (PCR) (test code = 0875437) Not detected Not detected ENTEROAGGREGATIVE E. COLI (E AEC) BY PCR (test code = 7579250) Not detected Not detected ENTEROPATHOGENIC E. COLI (EP EC) BY PCR (test code = 3992536) Not detected Not detected ENTEROTOXIGENIC E. COLI (ETE C) LT/ST BY PCR (test code = 8869852) Not detected Not detected SHIGA-LIKE TOXIN-PRODUCING E . COLI (STEC) PCR (test code = 4171739) Not detected Not detected E. COLI O157 (PCR) (test cod e = 5509052) SHIGELLA/ENTEROINVASIVE E. C LILY (EIEC) BY PCR (test code = 8516758) Not detected Not detected CRYPTOSPORIDIUM (PCR) (test code = 2315698) Not detected Not detected CYCLOSPORA CAYETANENSIS (PCR ) (test code = 4522904) Not detected Not detected ENTAMOEBA HISTOLYTICA (PCR) (test code = 2953001) Not detected Not detected GIARDIA LAMBLIA (PCR) (test code = 3380839) Not detected Not detected ADENOVIRUS F 40/41 (PCR) (te st code = 8850478) Not detected Not detected ASTROVIRUS (PCR) (test code = 7756421) Not detected Not detected NOROVIRUS GI/GII (PCR) (test code = 5663013) ROTAVIRUS A (PCR) (test code = 3323570) Not detected Not detected SAPOVIRUS (I, II, IV, V) BY PCR (test code = 5070652) Not detected Not detected VIBRIO (PARAHAEMOLYTICUS, VULNIFICUS) (test code = 6151015) Not detected Not detected Other viruses, parasites and bacteria not targeted by this PCR panel cannot be excluded; therefore clinical correlation and follow up of serology, culture results, and other molecular studies is required. The results are not intended to be used as the sole means for clinical diagnosis or patient management decisions. This sample was tested at the [facility] Molecular Diagnostics Laboratory using the [employer] Gastrointestinal Panel. It is FDA cleared and has been verified and approved [facility] for clinical use. This laboratory is CLIA-certified and [employer] [place] (CAP)-accredited to perform high complexity testing.T4, FREE 2023-02-12 13:44:05* Test Item Value Reference Range Interpretation Comme nts FREE T4 (BEAKER) (test code = 655) 0.97 ng/dL 0.90-1.80 Speech Pathology Assistant ID - [id number] 12:49:38* Test Item Value Reference Range Interpretation Comme nts CORTISOL, TOTAL (BEAKER) (te st code = 2755) 48.5 ug/dL 3.7-19.4 H Speech Pathology Assistant ID - ADMINHEPATITIS B SURFACE [id number] 10:45:41* Test Item Value Reference Range Interpretation Comme nts HEPATITIS B SURFACE ANTIGEN (2) (BEAKER) (test code = 2585) Nonreactive Nonreactive Speech Pathology Assistant ID - [id number] 08:43:07* Test Item Value Reference Range Interpretation Comme nts MAGNESIUM (BEAKER) (test cod e = 627) 1.9 mg/dL 1.5-3.0 Speech Pathology Assistant ID - DSENSONOperator ID - DSENSONOperator ID - DSENSONOperator ID - DSENSONBASIC METABOLIC [id number] 08:42:02* Test Item Value Reference Range Interpretation [...] GFR is not applicable for dialysis patients Speech Pathology Assistant ID - DSENSONOperator ID - DSENSONOperator ID - DSENSONOperator ID - DSENSONOperator ID - DSENSONOperator ID - DSENSONOperator ID - DSENSONOperator ID - DSENSONOperator ID - DSENSONOperator ID - [id number] 08:40:53* Test Item Value Reference Range Interpretation Comme nts PHOSPHORUS (BEAKER) (test co de = 604) 8.5 mg/dL 2.5-4.5 H Speech Pathology Assistant ID - DSENSON(MANUAL DIFFERENTIAL)2023-02-12 06:18:48* Test Item [...] 961) 1+ CBC W/PLT COUNT & AUTO [id number] 06:18:47* Test Item Value Reference Range Interpretation [...] code = 413) 0 /100 WBC 0-0 [id number] 04:46:31* Test Item Value Reference Range Interpretation Comme nts PHOSPHORUS (BEAKER) (test code = 604) 8.7 mg/dL 2.5-4.5 H Specimen sligh tly hemolyzed Speech Pathology Assistant ID - [id number] METABOLIC [id number] 04:46:20* Test Item Value Reference Range Interpretation [...] GFR is not applicable for dialysis patients Speech Pathology Assistant ID - [id number] ID - [id number] ID - [id number] ID - DULE55Nycqmbeg ID - BRPS68Iuamvagz ID - DZUN59Zziwohch ID - [id number] ID - OZJP52Pueriqiu ID - OYDD04Qicdhkfu ID - [id number] 04:36:00* Test Item Value Reference Range Interpretation Comme nts MAGNESIUM (BEAKER) (test code = 627) 1.9 mg/dL 1.5-3.0 Specimen sligh tly hemolyzed Speech Pathology Assistant ID - [id number] ID - [id number] ID - [id number] ID - [id number] VANCOMYCIN LEVEL, [id number] 04:31:57* Test Item Value Reference Range Interpretation Comme nts VANCOMYCIN RANDOM (BEAKER) ( test code = 523) 9.3 ug/mL Reference Range: No NormalsOperator ID - [id number], [id number] 04:21:33* Test Item Value Reference Range Interpretation Comme nts CALCIUM IONIZED (BEAKER) (te st code = 698) 1.07 mmol/L 1.12-1.27 L PH, BLOOD (BEAKER) (test cod e = 1810) 7.32 HEMOGLOBIN AND [id number] 02:10:47* Test Item Value Reference Range Interpretation Comme nts HEMOGLOBIN (BEAKER) (test co de = 410) 17.0 GM/DL 13.0-16.8 H HEMATOCRIT (BEAKER) (test co de = 411) 55.5 % 36.0-50.0 H TSH/FREE T4 IF [id number] 00:30:43* Test Item Value Reference Range Interpretation Comme nts THYROID STIMULATING HORMONE (BEAKER) (test code = 772) 0.640 uIU/mL 0.350-5.500 Speech Pathology Assistant ID - JUSTINPOCT-GLUCOSE [id number] 00:15:27* Test Item Value Reference Range Interpretation Comme nts POC-GLUCOSE METER (BEAKER) (test code = 1538) 121 mg/dL 70-110 H : TESTED AT [place] [address]: Speech Pathology Assistant/Fill Manager ID = [id number] for Rashid Kirk BLOOD GAS, [id number] 00:12:21* Test Item Value Reference Range Interpretation [...] (BEAKER) (test code = 1818) 37.0 FIO2 (HERB) (test code = 1819) 21.0 LACTIC ACID, [id number] 23:30:30* Test Item Value Reference Range Interpretation Comme nts LACTATE BLOOD VENOUS (2) (HERB) (test code = 2872) 2.28 mmol/L See_Comment HH Specimen lew andreina hemolyzed [Automated message] The system which generated this result transmitted reference range: 0.50-<2.00. The reference range was not used to interpret this result as normal/abnormal. Speech Pathology Assistant ID - JUSTINOperator ID - JUSTINOperator ID - JUSTINOperator ID - AJAY TROPONIN [id number] 21:45:14* Test Item Value Reference Range Interpretation Comme nts TROPONIN I (HERB) (test co de = 397) 1.98 ng/mL [...] failure, acidosis, acute neurological disease, and persistent tachyarrhythmia.Speech Pathology Assistant ID - JUSTINXR CHEST 1 VIEW PORTABLE / [id number] 20:56:10 [facility] : 1955 Sex: MChest one view:HISTORY: Shortness of breathThe study is limited by radiographic technique. There is noconsolidation or pleural effusion noted. Cardiac size appears withinnormal limits. The bony thorax as visualized appears intact.Electronically Signed By: Faustino Castillo02/11/2023 20:58 CDTWorkstation Name: [id number] NATRIURETIC FACTOR (BNP)2023-02-11 20:53:12* Test Item Value Reference Range Interpretation Comme nts B-TYPE NATRIURETIC PEPTIDE ( BEAKER) (test code = 700) 59 pg/mL 0-100 Speech Pathology Assistant ID - [id number] W/PLT COUNT & AUTO [id number] 20:49:21* Test Item Value Reference Range Interpretation [...] t code = 762) Normal COMPREHENSIVE METABOLIC [id number] 20:45:29* Test Item Value Reference Range Interpretation [...] U/L 5-50 Specimen slightl y hemolyzed EGFR (HERB) (test code = 1092) 5 [...] GFR is not applicable for dialysis patients Speech Pathology Assistant ID - [id number] ID - [id number] ID - [id number] ID - [id number] ID- [id number] ID - [id number] ID - [id number] ID - [id number] ID - HEUOW810Hhxhakqe ID - BECTH580Ooevcket ID - GKSSD502Ivamgkxb ID - LUHUC870Kkvmfezq ID - [id number] ID -[id number] ID - HLEXO410Cgdmkwxq ID - [id number] PROTHROMBIN TIME/[id number] 20:44:49* Test Item Value Reference Range Interpretation Comme nts PROTIME (HERB) (test code = 759) 14.3 seconds 9.3-12.0 H Final Informat ion (Auto Output) INR (HERB) (test code = 370) 1.36 See_Comment Final [...] is 2.5-3.5 for patients with mechanical heart valves.[id number] 20:44:49* Test Item Value Reference Range Interpretation Comme nts PARTIAL THROMBOPLASTIN TIME (HERB) (test code = 760) 30.9 seconds 23.0-35.0 Final Informatio n (Auto Output) [id number] 20:43:51* Test Item Value Reference Range Interpretation Comme nts MAGNESIUM (BEAKER) (test code = 627) 1.9 mg/dL 1.5-3.0 Specimen sligh tly hemolyzed Speech Pathology Assistant ID - [id number] ID - [id number] ID - [id number] ID - [id number] 20:43:45* Test Item Value Reference Range Interpretation Comme nts PHOSPHORUS (BEAKER) (test code = 604) 8.3 mg/dL 2.5-4.5 H Specimen sligh tly hemolyzed Speech Pathology Assistant ID - [id number]-AUO3/RT-PCR ([facility])2023-02-11 20:43:34* Test Item Value Reference Range Interpretation Comme nts SARS-COV2/RT-PCR (test code = 2398243) Negative Negative The SARS-CoV-2 t arget nucleic [...] revoked sooner. Fact Sheet for Healthcare Providers: https://www.[employer]com/Documents/Xpert%20Xpress%20SARS%20CoV-2/Fact%20Sheets/302-1095%20SARS-COV -2%20HEALTHCARE%20PROVIDERS%20FACT%20SHEET.pdf Fact Sheet for Healthcare Patients: https://www.[employer]/Documents/Xpe rt%20Xpress%20SARS%20CoV-2/Fact%20Sheets/302-3801%86QGXW-VHL-9%20PATIENT%20FACT% 20SHEET.pdfLIPID [id number] 20:43:12* Test Item Value Reference Range Interpretation [...] Borderline 130-159 High 160-189 Very High >=190 Speech Pathology Assistant ID - [id number] ID - [id number] ID - [id number] RSV [id number] 20:40:06* Test Item Value Reference Range Interpretation Comme nts RSV RAPID ANTIGEN (BEAKER) (test code = 1078) Negative Negative, Inconclusive RAPID INFLUENZA A&B [id number] 20:33:31* Test Item Value Reference Range Interpretation Comme nts RAPID INFLUENZA A AG (BEAKER ) (test code = 1622) Negative Negative, Inconclusive RAPID INFLUENZA B AG (BEAKER ) (test code = 1623) Negative Negative, Inconclusive CALCIUM, [id number] 20:27:41* Test Item Value Reference Range Interpretation Comme nts CALCIUM IONIZED (BEAKER) (te st code = 698) 0.92 mmol/L 1.12-1.27 L PH, BLOOD (BEAKER) (test cod e = 1810) 7.32 BLOOD GAS, [id number] 20:22:10* Test Item Value Reference Range Interpretation [...] (BEAKER) (test code = 1819) 21.0 POCT-GLUCOSE [id number] 19:47:40* Test Item Value Reference Range Interpretation Comme nts POC-GLUCOSE METER (BEAKER) (test code = 1538) 93 mg/dL 70-110 : TESTED AT [address] [address]: Speech Pathology Assistant/Fill Manager ID = [id number] for Agueda Wooten BLOOD [id number] 09:26:03* Test Item Value Reference Range Interpretation [...] 2.1 mg/dL on 11/11/2022 at 0459 CDT Speech Pathology Assistant ID - [id number] 09:02:05* Test Item Value Reference Range Interpretation Comme nts PHOSPHORUS (BEAKER) (test code = 604) 7.3 mg/dL 2.3-4.7 H Patient regist ered under incorrect medical record; misfiled document moved to correct medical record.This is a corrected result. Previous result was 7.3 mg/dL on 11/11/2022 at 0459 CDT Speech Pathology Assistant ID - MMBASIC METABOLIC [id number] 09:02:05* Test Item Value Reference Range Interpretation [...] sq m on 11/11/2022 at 0507 CDT Speech Pathology Assistant ID - MMCBC W/PLT COUNT & AUTO [id number] 08:58:15* Test Item Value Reference Range Interpretation [...] 0.50 % on 11/11/2022 at 0436 CDT [id number] 00:56:53* Test Item Value Reference Range Interpretation Comme nts MAGNESIUM (BEAKER) (test code = 627) 2.1 mg/dL 1.6-2.6 Patient regist ered under incorrect medical record; misfiled document moved to correct medical record. This is a corrected result. Previous result was 2.1 mg/dL on 11/10/2022 at 0337 CDT Speech Pathology Assistant ID - [id number] 00:56:53* Test Item Value Reference Range Interpretation Comme nts PHOSPHORUS (BEAKER) (test code = 604) 6.2 mg/dL 2.3-4.7 H Patient regist ered under incorrect medical record; misfiled document moved to correct medical record. This is a corrected result. Previous result was 6.2 mg/dL on 11/10/2022 at 0337 CDT Speech Pathology Assistant ID - ADMINBASIC METABOLIC [id number] 00:56:53* Test Item Value Reference Range Interpretation [...] mg/dL on 11/10/2022 at 0401 CDT CALCIUM (BEAKER) (test code = 697) 10.3 mg/dL 8.4-10.2 [...] sq m on 11/10/2022 at 0401 CDT Speech Pathology Assistant ID - ADMINCBC W/PLT COUNT & AUTO [id number] 00:53:04* Test Item Value Reference Range Interpretation [...] on 11/10/2022 at 0319 CDT HEMOGLOBIN AND [id number] 00:48:57* Test Item Value Reference Range Interpretation [...] 45.7 % on 11/09/2022 at 1402 CDT Speech Pathology Assistant ID - [id number] W/PLT COUNT & AUTO [id number] 00:48:11* Test Item Value Reference Range Interpretation [...] 11/09/2022 at 0411 CDT TSH/FREE T4 IF [id number] 00:43:57* Test Item Value Reference Range Interpretation Comme nts THYROID STIMULATING HORMONE (BEAKER) (test code = 772) 0.184 uIU/mL 0.350-4.940 L Patient regist ered under incorrect medical record; misfiled document moved to correct medical record. This is a corrected result. Previous result was 0.184 uIU/mL on 11/11/2022 at 0508 CDT Speech Pathology Assistant ID - MMT4, [id number] 00:43:57* Test Item Value Reference Range Interpretation Comme nts FREE T4 (BEAKER) (test code = 655) 0.79 ng/dL 0.70-1.48 Patient regist ered under incorrect medical record; misfiled document moved to correct medical record. This is a corrected result. Previous result was 0.79 ng/dL on 11/11/2022 at 0814 CDT Speech Pathology Assistant ID - [id number] 00:35:55* Test Item Value Reference Range Interpretation Comme nts MAGNESIUM (BEAKER) (test code = 627) 2.3 mg/dL 1.6-2.6 Patient regist ered under incorrect medical record; misfiled document moved to correct medical record. This is a corrected result. Previous result was 2.3 mg/dL on 11/09/2022 at 0420 CDT Speech Pathology Assistant ID - WALESKA [id number] 00:35:55* Test Item Value Reference Range Interpretation Comme nts PHOSPHORUS (BEAKER) (test code = 604) 6.1 mg/dL 2.3-4.7 H Patient regist ered under incorrect medical record; misfiled document moved to correct medical record. This is a corrected result. Previous result was 6.1 mg/dL on 11/09/2022 at 0420 CDT Speech Pathology Assistant ID - WALESKA WBASIC METABOLIC [id number] 00:35:55* Test Item Value Reference Range Interpretation [...] sq m on 11/09/2022 at 0423 CDT Speech Pathology Assistant ID - WALESKA WTSH/FREE T4 IF [id number] 00:31:30* Test Item Value Reference Range Interpretation Comme nts THYROID STIMULATING HORMONE (HERB) (test code = 772) 0.169 uIU/mL 0.350-4.940 L Patient regist ered under incorrect medical record; misfiled document moved to correct medical record. This is a corrected result. Previous result was 0.169 uIU/mL on 11/09/2022 at 0444 CDT Speech Pathology Assistant ID - BST4, [id number] 00:31:30* Test Item Value Reference Range Interpretation Comme nts FREE T4 (BEAKER) (test code = 655) 0.85 ng/dL 0.70-1.48 Patient regist ered under incorrect medical record; misfiled document moved to correct medical record. This is a corrected result. Previous result was 0.85 ng/dL on 11/09/2022 at 0706 CDT [id number] 00:28:55* Test Item Value Reference Range Interpretation Comme nts MAGNESIUM (BEAKER) (test code = 627) 1.8 mg/dL 1.6-2.6 Patient regist ered under incorrect medical record; misfiled document moved to correct medical record. This is a corrected result. Previous result was 1.8 mg/dL on 11/08/2022 at 2205 CDT Speech Pathology Assistant ID - [id number] 00:28:55* Test Item Value Reference Range Interpretation Comme nts PHOSPHORUS (BEAKER) (test code = 604) 5.4 mg/dL 2.3-4.7 H Patient regist ered under incorrect medical record; misfiled document moved to correct medical record. This is a corrected result. Previous result was 5.4 mg/dL on 12/23/2022 at 0027 CDT Speech Pathology Assistant ID - ADMINBASIC METABOLIC [id number] 00:28:55* Test Item Value Reference Range Interpretation [...] sq m on 11/08/2022 at 2207 CDT Speech Pathology Assistant ID - ADMINVANCOMYCIN LEVEL, [id number] 00:21:03* Test Item Value Reference Range Interpretation Comme nts VANCOMYCIN TROUGH (BEAKER) (test code = 522) 11.2 ug/mL 10.0-20.0 Patient register ed under incorrect medical record; misfiled document moved to correct medical record. This is a corrected result. Previous result was 11.2 ug/mL on 11/09/2022 at 1413 CDT Speech Pathology Assistant ID - ADMINVANCOMYCIN LEVEL, [id number] 00:21:03* Test Item Value Reference Range Interpretation Comme nts VANCOMYCIN RANDOM (BEAKER) (test code = 523) 15.2 ug/mL Patient register ed under incorrect medical record; misfiled document moved to correct medical record. This is a corrected result. Previous result was 15.2 ug/mL on 11/09/2022 at 0418 CDT Reference Range: No NormalsOperator ID - WALESKA WP, [id number] 00:16:02* Test Item Value Reference Range Interpretation Comme nts PARATHYROID HORMONE INTACT (BEAKER) (test code = 577) 1173.5 pg/mL 8.5-72.5 H Patient register ed under incorrect medical record; misfiled document moved to correct medical record. This is a corrected result. Previous result was 1,173.5 pg/mL on 11/08/2022 at 0932 CDT Speech Pathology Assistant ID - MARCOCALCIUM, [id number] 00:15:01* Test Item Value Reference Range Interpretation [...] 7.40 on 11/08/2022 at 1233 CDT POCT-GLUCOSE [id number] 00:12:36* Test Item Value Reference Range Interpretation Comme nts POC-GLUCOSE METER (BEAKER) (test code = 1538) 64 mg/dL 70-110 L : TESTED AT [address], [address]: Speech Pathology Assistant/Fill Manager ID = [id number] for ZAYDA - TALITA, RUBYPatient registered under incorrect medical record; misfiled document moved to correct medical record. This is a corrected result. Previous result was 64 mg/dL on 11/11/2022 at 1323 CDT POCT-GLUCOSE [id number] 00:12:36* Test Item Value Reference Range Interpretation Comme nts POC-GLUCOSE METER (BEAKER) (test code = 1538) 79 mg/dL 70-110 : TESTED AT [address], [address]: Speech Pathology Assistant/Fill Manager ID = [id number] for Yulissa PorrasinePatient registered under incorrect medical record; misfiled document moved to correct medical record. This is a corrected result. Previous result was 79 mg/dL on 11/11/2022 at 1156 CDT POCT-GLUCOSE [id number] 00:12:36* Test Item Value Reference Range Interpretation Comme nts POC-GLUCOSE METER (BEAKER) (test code = 1538) 114 mg/dL 70-110 H : TESTED AT [address], [address]: Speech Pathology Assistant/Fill Manager ID = [id number] for Yrn Umanzortient registered under incorrect medical record; misfiled document moved to correct medical record. This is a corrected result. Previous result was 114 mg/dL on 11/10/2022 at 1727 CDT POCT-GLUCOSE [id number] 00:12:36* Test Item Value Reference Range Interpretation Comme nts POC-GLUCOSE METER (BEAKER) (test code = 1538) 111 mg/dL 70-110 H : TESTED AT [address], [address]: Speech Pathology Assistant/Fill Manager ID = [id number] for Zane ChinyerePatient registered under incorrect medical record; misfiled document moved to correct medical record. This is a corrected result. Previous result was 111 mg/dL on 11/10/2022 at 1232 CDT POCT-GLUCOSE [id number] 00:12:36* Test Item Value Reference Range Interpretation Comme nts POC-GLUCOSE METER (BEAKER) (test code = 1538) 97 mg/dL 70-110 : TESTED AT [address], [address]: Speech Pathology Assistant/Fill Manager ID = [id number] for Ugbana, ChinyerePatient registered under incorrect medical record; misfiled document moved to correct medical record. This is a corrected result. Previous result was 97 mg/dL on 11/10/2022 at 0922 CDT POCT-GLUCOSE [id number] 00:12:36* Test Item Value Reference Range Interpretation Comme nts POC-GLUCOSE METER (BEAKER) (test code = 1538) 118 mg/dL 70-110 H : TESTED AT [address], [address]: Speech Pathology Assistant/Fill Manager ID = [id number] for Uy, RosellePatient registered under incorrect medical record; misfiled document moved to correct medical record. This is a corrected result. Previous result was 118 mg/dL on 11/10/2022 at 0631 CDT POCT-GLUCOSE [id number] 00:12:36* Test Item Value Reference Range Interpretation Comme nts POC-GLUCOSE METER (BEAKER) (test code = 1538) 102 mg/dL 70-110 : TESTED AT [address], [address]: Speech Pathology Assistant/Fill Manager ID = [id number] for Uy, RosellePatient registered under incorrect medical record; misfiled document moved to correct medical record. This is a corrected result. Previous result was 102 mg/dL on 11/10/2022 at 0020 CDT POCT-GLUCOSE [id number] 00:12:36* Test Item Value Reference Range Interpretation Comme nts POC-GLUCOSE METER (BEAKER) (test code = 1538) 142 mg/dL 70-110 H : TESTED AT [address], [address]: Speech Pathology Assistant/Fill Manager ID = [id number] for Ugbana, ChinyerePatient registered under incorrect medical record; misfiled document moved to correct medical record. This is a corrected result. Previous result was 142 mg/dL on 11/09/2022 at 2246 CDT POCT-GLUCOSE [id number] 00:12:35* Test Item Value Reference Range Interpretation Comme nts POC-GLUCOSE METER (BEAKER) (test code = 1538) 99 mg/dL 70-110 : TESTED AT [facility] [address] [facility], [address]: Speech Pathology Assistant/Fill Manager ID = [id number] for Erik DegrootePatient registered under incorrect medical record; misfiled document moved to correct medical record. This is a corrected result. Previous result was 99 mg/dL on 11/09/2022 at 1144 CDT POCT-GLUCOSE [id number] 00:12:35* Test Item Value Reference Range Interpretation Comme nts POC-GLUCOSE METER (BEAKER) (test code = 1538) 95 mg/dL 70-110 : TESTED AT [place] [id number] [facility], [address]: Speech Pathology Assistant/Fill Manager ID = [id number] for MagdaleneTapan sarabiasaPatient registered under incorrect medical record; misfiled document moved to correct medical record. This is a corrected result. Previous result was 95 mg/dL on 11/09/2022 at 0554 CDT POCT-GLUCOSE [id number] 00:12:35* Test Item Value Reference Range Interpretation Comme nts POC-GLUCOSE METER (BEAKER) (test code = 1538) 107 mg/dL 70-110 : TESTED AT [facility] [address] [facility], [address]: Speech Pathology Assistant/Fill Manager ID = [id number] for Ida Dewitttient registered under incorrect medical record; misfiled document moved to correct medical record. This is a corrected result. Previous result was 107 mg/dL on 11/08/2022 at 2350 CDT POCT-GLUCOSE [id number] 00:12:35* Test Item Value Reference Range Interpretation Comme nts POC-GLUCOSE METER (BEAKER) (test code = 1538) 123 mg/dL 70-110 H : TESTED AT [facility] [address] [facility], [address]: Speech Pathology Assistant/Fill Manager ID = [id number] for Magdalene, ElyssaPatient registered under incorrect medical record; misfiled document moved to correct medical record. This is a corrected result. Previous result was 123 mg/dL on 11/08/2022 at 2139 CDT POCT-GLUCOSE [id number] 00:12:35* Test Item Value Reference Range Interpretation Comme nts POC-GLUCOSE METER (BEAKER) (test code = 1538) 111 mg/dL 70-110 H : TESTED AT [facility] [address] [facility], [address]: Speech Pathology Assistant/Fill Manager ID = [id number] for Chantel Carr registered under incorrect medical record; misfiled document moved to correct medical record. This is a corrected result. Previous result was 111 mg/dL on 11/08/2022 at 1838 CDT POCT-GLUCOSE [id number] 00:12:35* Test Item Value Reference Range Interpretation Comme nts POC-GLUCOSE METER (BEAKER) (test code = 1538) 114 mg/dL 70-110 H : TESTED AT [place] [id number] [facility], [address]: Speech Pathology Assistant/Fill Manager ID = [id number] for Luis Manuel CarrPatient registered under incorrect medical record; misfiled document moved to correct medical record. This is a corrected result. Previous result was 114 mg/dL on 11/08/2022 at 1233 CDT POCT-GLUCOSE [id number] 00:12:35* Test Item Value Reference Range Interpretation Comme nts POC-GLUCOSE METER (BEAKER) (test code = 1538) 95 mg/dL 70-110 : TESTED AT [place] [id number] [facility], [address]: Speech Pathology Assistant/Fill Manager ID = [id number] for Luis Manuel CarrPatient registered under incorrect medical record; misfiled document moved to correct medical record. This is a corrected result. Previous result was 95 mg/dL on 11/08/2022 at 0858 CDT POCT-GLUCOSE [id number] 00:12:35* Test Item Value Reference Range Interpretation Comme nts POC-GLUCOSE METER (BEAKER) (test code = 1538) 108 mg/dL 70-110 : TESTED AT [place] [id number] [facility], [address]: Speech Pathology Assistant/Fill Manager ID = [id number] for Oresets AbbottPatient registered under incorrect medical record; misfiled document moved to correct medical record. This is a corrected result. Previous result was 108 mg/dL on 11/08/2022 at 0602 CDT CBC W/PLT COUNT & AUTO [id number] 23:54:34* Test Item Value Reference Range Interpretation [...] misfiled document moved to correct medical record. Speech Pathology Assistant ID - Liberty Christine comments: Slide comments:[id number] 23:38:36* Test Item Value Reference Range Interpretation Comme nts MAGNESIUM (BEAKER) (test code = 627) 1.9 mg/dL 1.6-2.6 Patient regist ered under incorrect medical record; misfiled document moved to correct medical record. This is a corrected result. Previous result was 1.9 mg/dL on 11/08/2022 at 0423 CDT Speech Pathology Assistant ID - [id number] 23:38:19* Test Item Value Reference Range Interpretation Comme nts PHOSPHORUS (BEAKER) (test code = 604) 7.7 mg/dL 2.3-4.7 H Patient regist ered under incorrect medical record; misfiled document moved to correct medical record. This is a corrected result. Previous result was 7.7 mg/dL on 11/08/2022 at 0423 CDT Speech Pathology Assistant ID - EDBASIC METABOLIC [id number] 23:36:30* Test Item Value Reference Range Interpretation [...] on 11/08/2022 at 0429 CDT GLUCOSE RANDOM (BEAKER) (test code = [...] sq m on 11/08/2022 at 0429 CDT Speech Pathology Assistant ID - EDVITAMIN D, [id number] 23:34:01* Test Item Value Reference Range Interpretation [...] Target Range: 30.0-40.0 ng/mLOperator ID - JST4, [id number] 23:33:11* Test Item Value Reference Range Interpretation Comme nts FREE T4 (HERB) (test code = 655) 0.74 ng/dL 0.70-1.48 Patient regist ered under incorrect medical record; misfiled document moved to correct medical record. This is a corrected result. Previous result was 0.74 ng/dL on 11/08/2022 at 0531 CDT Speech Pathology Assistant ID - EDTSH/FREE T4 IF [id number] 23:32:20* Test Item Value Reference Range Interpretation Comme nts THYROID STIMULATING HORMONE (HERB) (test code = 772) 0.212 uIU/mL 0.350-4.940 L Patient regist ered under incorrect medical record; misfiled document moved to correct medical record. This is a corrected result. Previous result was 0.212 uIU/mL on 11/08/2022 at 0455 CDT Speech Pathology Assistant ID - EDHEPATITIS B SURFACE [id number] 23:30:57* Test Item Value Reference Range Interpretation Comme nts HEPATITIS B SURFACE ANTIGEN (2) (HERB) (test code = 2585) Nonreactive Nonreactive Patient keyshawn tered under incorrect medical record; misfiled document moved to correct medical record. This is a corrected result. Previous result was Nonreactive on 11/08/2022 at 0452 CDT Specimen is considered negative for HBsAg.VANCOMYCIN LEVEL, [id number] 23:29:48* Test Item Value Reference Range Interpretation Comme nts VANCOMYCIN RANDOM (HERB) (test code = 523) 18.2 ug/mL Patient register ed under incorrect medical record; misfiled document moved to correct medical record. This is a corrected result. Previous result was 18.2 ug/mL on 11/08/2022 at 0438 CDT Reference Range: No NormalsOperator ID - EDPOCT-GLUCOSE [id number] 23:24:39 * Test Item Value Reference Range Interpretation Comme nts POC-GLUCOSE METER (HERB) (test code = 1538) 111 mg/dL 70-110 H : TESTED AT [facility] [address] [facility], [address]: Speech Pathology Assistant/Fill Manager ID = [id number] for Jose BROWN registered under incorrect medical record; misfiled document moved to correct medical record. This is a corrected result. Previous result was 111 mg/dL on 11/07/2022 at 2252 CDT HIGH SENSITIVITY TROPONIN [id number] 23:22:57* Test Item Value Reference Range Interpretation Comme nts HIGH SENSITIVITY TROPONIN I (test code = 2066010) 369 pg/ml <=35 H Patient register ed under incorrect medical record; misfiled document moved to correct medical record. This is a corrected result. Previous result was 369 pg/ml on 11/07/2022 at 1741 CDT Speech Pathology Assistant ID - Chelsy DRIVER RECRUITER STAT High Sensitivity Troponin-I results should be used in conjunction with other diagnostic information such as ECG, clinical observations and information, and patient symptoms to aid in the diagnosis of AL.POCT-GLUCOSE [id number] 22:42:40* Test Item Value Reference Range Interpretation Comme nts POC-GLUCOSE METER (BEAKER) (test code = 1538) 113 mg/dL 70-110 H : TESTED AT [place] [id number] [facility], [address]: Speech Pathology Assistant/Fill Manager ID = [id number] for Chantel Carr registered under incorrect medical [...] 79 pg/mL on 11/07/2022 at 1421 CDT Speech Pathology Assistant ID - EDPOCT-GLUCOSE [id number] 22:40:07* Test Item Value Reference Range Interpretation Comme nts POC-GLUCOSE METER (BEAKER) (test code = 1538) 240 mg/dL 70-110 H : TESTED AT [facility] [address] [facility], [address]: Speech Pathology Assistant/Fill Manager ID = [id number] for Chantel Carr registered under incorrect medical record; misfiled document moved to correct medical record.This is a corrected result. Previous result was 240 mg/dL on 11/07/2022 at 1357 CDT BLOOD GAS, [id number] 22:36:46* Test Item Value Reference Range Interpretation [...] on 11/07/2022 at 0859 CDT LACTIC ACID, [id number] 22:35:39* Test Item Value Reference Range Interpretation Comme nts LACTATE BLOOD VENOUS (2) (BEAKER) (test code = 2872) 1.79 mmol/L 0.50-2.00 Specimen slightl y hemolyzedPatient registered under incorrect medical record; misfiled document moved to correct medical record.This is a corrected result. Previous result was 1.79 mmol/L on 11/07/2022 at 0953 CDT Speech Pathology Assistant ID - EDHIGH SENSITIVITY TROPONIN [id number] 22:34:47* Test Item Value Reference Range Interpretation Comme [facility] HIGH SENSITIVITY TROPONIN I (test code = 0455092) 534 pg/ml <=35 HH Patient register ed under incorrect medical record; misfiled document moved to correct medical record.This is a corrected result. Previous result was 534 pg/ml on 11/07/2022 at 1015 CDT Speech Pathology Assistant ID - Chelsy DRIVER RECRUITER STAT High Sensitivity Troponin-I results should be used in conjunction with other diagnostic information such as ECG, clinical observations and information, and patient symptoms to aid in the diagnosis of AL.HEMOGLOBIN [id number] 22:33:56* Test Item Value Reference Range Interpretation Comme [facility] HEMOGLOBIN A1C ELECTROPHORESIS (HERB) (test code = 3811) 5.2 % See_Comment [...] 5.7- 6.4% indicates increased risk for diabetes (prediabetes)."Speech Pathology Assistant ID - ADMPOCT- GLUCOSE [id number] 22:31:52* Test Item Value Reference Range Interpretation Comme [facility] POC-GLUCOSE METER (HERB) (test code = 1538) 297 mg/dL 70-110 H : TESTED AT [facility] [address] [facility], [address]: Speech Pathology Assistant/Fill Manager ID = [id number] for Luis Manuel CarrPatient registered under incorrect medical record; misfiled document moved to correct medical record.This is a corrected result. Previous result was 297 mg/dL on 11/07/2022 at 0852 CDT [id number] 22:29:39* Test Item Value Reference Range Interpretation Comme [facility] PROCALCITONIN (HREB) (test code = 3036) 1.06 ng/mL <0.05 H Patient keyshawn tered under incorrect medical record; misfiled document moved to correct medical record.This is a corrected result. Previous result was 1.06 ng/mL on 11/07/2022 at 0621 CDT SEPSIS RISK (ng/mL)Low: 0.05-0.50Intermediate: 0.51-2.00High: >=2.01POCT-GLUCOSE [id number] 22:25:23* Test Item Value Reference Range Interpretation Comme nts POC-GLUCOSE METER (HERB) (test code = 1538) 158 mg/dL 70-110 H : TESTED AT [facility] [address] [place] [place], [address]: Speech Pathology Assistant/Fill Manager ID = [id number] for Shawn Yee registered under incorrect medical record; misfiled document moved to correct medical record.This is a corrected result. Previous result was 158 mg/dL on 11/07/2022 at 0513 CDT HIGH SENSITIVITY TROPONIN [id number] 22:23:25* Test Item Value Reference Range Interpretation Comme [facility] HIGH SENSITIVITY TROPONIN I (test code = 6201483) 434 pg/ml <=35 H Patient register ed under incorrect medical record; misfiled document moved to correct medical record.This is a corrected result. Previous result was 434 pg/ml on 11/07/2022 at 0502 CDT Speech Pathology Assistant ID - EDThe DRIVER RECRUITER STAT High Sensitivity Troponin-I results should be used in conjunction with other diagnostic information such as ECG, clinical observations and information, and patient symptoms to aid in the diagnosis of AL.[id number] 22:20:46* Test Item Value Reference Range Interpretation Comme nts LIPASE (BEAKER) (test code = 749) 18 U/L 8-78 Patient register ed under incorrect medical record; misfiled document moved to correct medical record.This is a corrected result. Previous result was 18 U/L on 11/07/2022 at 0445 CDT Speech Pathology Assistant ID - EDBLOOD GAS, [id number] 22:20:04* Test Item Value Reference Range Interpretation [...] on 11/07/2022 at 0514 CDT LACTIC ACID, [id number] 22:17:27* Test Item Value Reference Range Interpretation Comme nts LACTATE BLOOD VENOUS (2) (BEAKER) (test code = 2872) 2.31 mmol/L 0.50-2.00 H Specimen slightl y hemolyzedPatient registered under incorrect medical record; misfiled document moved to correct medical record.This is a corrected result. Previous result was 2.31 mmol/L on 11/07/2022 at 0438 CDT Speech Pathology Assistant ID - EDHEPATIC FUNCTION [id number] 22:14:07* Test Item Value Reference Range Interpretation Comme nts TOTAL PROTEIN (BEAKER) (test code = 770) 7.2 gm/dL 6.0-8.3 Patient regist ered under incorrect medical record; misfiled document moved to correct medical record.This is a corrected result. Previous result was 7.2 gm/dL on 12/22/2022 at 2200 CDT ALBUMIN (BEAKER) (test code = 1145) 3.8 g/dL 3.5-5.0 Patient register ed under incorrect medical record; misfiled document moved to correct medical record.This is a corrected result. Previous result was 3.8 g/dL on 12/22/2022 at 2200 CDT BILIRUBIN TOTAL (BEAKER) (test code = 377) [...] on 12/22/2022 at 2200 CDT ALKALINE PHOSPHATASE (BEAKER) (test code = 346) 142 U/L 40-150 [...] 27 U/L on 12/22/2022 at 2200 CDT Speech Pathology Assistant ID - EDCBC W/PLT COUNT & AUTO [id number] 22:14:07* Test Item Value Reference Range Interpretation [...] 11/07/2022 at 0426 CDT IMMATURE GRANULOCYTES-RELATIVE PERCENT (HERB) (test code = 2801) 0.60 % 0.00-1.00 Patient register ed under incorrect medical record; misfiled document moved to correct medical record.This is a corrected result. Previous result was 0.60 % on 11/07/2022 at 0426 CDT BASIC METABOLIC [id number] 22:02:22* Test Item Value Reference Range Interpretation Comme nts SODIUM (HERB) (test code = 381) 130 meq/L 136-145 L Patient regist ered under incorrect medical record; misfiled document moved to correct medical record.This is a corrected result. Previous result was 130 meq/L on 11/07/2022 at 0508 CDT POTASSIUM (HERB) (test code = 379) 5.0 meq/L 3.5-5.1 Patient register ed under incorrect medical record; misfiled document moved to correct medical record.This is a corrected result. Previous result was 5.0 meq/L on 11/07/2022 at 0508 CDT CHLORIDE (HERB) (test code = 382) 93 meq/L 98-107 L Patient regist ered under incorrect medical record; misfiled document moved to correct medical record.This is a corrected result. Previous result was 93 meq/L on 11/07/2022 at 0508 CDT CO2 (HERB) (test code = 355) 22 meq/L 22-29 Patient regist ered under incorrect medical record; misfiled document moved to correct medical record.This is a corrected result. Previous result was 22 meq/L on 11/07/2022 at 0508 CDT BLOOD UREA NITROGEN (HERB) (test code = 354) 27 mg/dL 7-21 H Patient regist ered under incorrect medical record; misfiled document moved to correct medical record.This is a corrected result. Previous result was 27 mg/dL on 11/07/2022 at 0508 CDT CREATININE (HERB) (test code = 358) 8.32 mg/dL 0.57-1.25 [...] sq m on 11/07/2022 at 0508 CDT Speech Pathology Assistant ID - EDPROTHROMBIN TIME/[id number] 21:58:07* Test Item Value Reference Range Interpretation [...] is 2.5-3.5 for patients with mechanical heart valves.[id number] 21:58:07* Test Item Value Reference Range Interpretation Comme nts PARTIAL THROMBOPLASTIN TIME (HERB) (test code = 760) 33.5 seconds 22.5-36.0 Patient register ed under incorrect medical record; misfiled document moved to correct medical record. This is a corrected result. Previous result was 33.5 seconds on 12/22/2022 at 2153 CDT T4, [id number] 06:08:41* Test Item Value Reference Range Interpretation Comme nts FREE T4 (HERB) (test code = 655) 0.77 ng/dL 0.70-1.48 Speech Pathology Assistant ID - ADMINTSH/FREE T4 IF [id number] 04:01:20* Test Item Value Reference Range Interpretation Comme nts THYROID STIMULATING HORMONE (HERB) (test code = 772) 0.147 uIU/mL 0.350-4.940 L Speech Pathology Assistant ID - ADMINRAD, CHEST, 1 VIEW, NON [id number] 03:48:00Reason for exam:->shockShould this be performed at the bedside?->Yes [facility] CENTERName: RAYAIRA Blum : 1955 Sex: MFINAL REPORT RAD, CHEST, 1 VIEW, NON DEPT INDICATION: shock COMPARISON: 06/19/2012 FINDINGS: Portable frontal view of the chest. IMPRESSION: Support Lines: The left transjugular central venous catheter overlies the left internal jugular vein to the confluence. Lungs and pleura: Lungs are clear. No pneumothorax. Heart and mediastinum: Cardiomediastinal silhouette is magnified bytechnique with otherwise stable contours. Additional findings: None. Signed: Ira Charles MDReport Verified Date/Time: 11/07/2022 03:48:44 [id number] 17:49:00* Test Item Value Reference Range Interpretation Comme nts SURGICAL (test code = SR) RUN DATE: 11/20/21 [facility] PAGE 1 RUN TIME: 1750 Specimen Inquiry RUN USER: INTERFACE DEBRA ENT: IRA RYAA LOC: EMIR #: [id number] AGE/SX: 66/M ROOM: [facility] RE11[facility]16/[facility] DR: Mandy Devlin MD : 53 BED: 1 DIS: 11/18/21 STATUS: DIS IN TLOC: SPEC #: [id number]:[id number] RECD: 11/17/21-9 STATUS: ANSELMO MILLAN #: [id number] ANAHI: 11/17/21 [facility] DR: Mandy Devlin MD ENTERED: 11/17/21 SP TYPE: SURGICAL OTHR DR: Self Referred Genaro Gupta MD, Nileshkumar MD Mendoza Requena, Daniel MD Veselka, James E MDORDERED: 92042, 93843, ANATOMIC SPEC, SPECIMEN TRACK COPIES TO: Self Referred Genaro Gupta MD [address] [place] [address] Amita Gr MD [address] [facility] [address] [address] [place] [address] [place] [address] [place] [address] [place], [place] 4[address]84 Ira Ramirez MD [address] [place] [address] [place] [id number] PROCEDURES: 37322 (11/20/21-1601) 23060 (11/20/21160) SPECIMEN TRACK (11/17/21) TISSUES: A. AMPUTATION--FINGER OR TOE, TRAUMATIC - AMPUTATED LEFT INDEX FINGER CONTINUED ON NEXT PAGE RUN DATE: 11/20/21 [facility] PAGE 2 RUN TIME: 1750 Specimen Inquiry RUN USER: INTERFACE SPEC #: [id number]:[facility]:[id number] PATIENT: IRA RAYA #[id number] (Continued) ------- FINAL DIAGNOSIS Finger, left index, [...] decalcification as A1. Technical component performed at [id number] , [place] [address] Unless gross only, the diagnosis is based upon microscopic examination.Immunohistochemistry : This test was developed and its performancecharacteristics determined by this laboratory. It has not been approved nordoes it need approval by the [place] FDA. Appropriate positive and negative controlsare reviewed and judged to be acceptable. This laboratory is certified underthe Clinical Laboratory Improvement Amendments (CLIA-88) as qualified toperform high complexity clinical laboratory testing. MICROSCOPIC DESCRIPTION Histopathological findings are incorporated into the diagnosis/comment sections. Signed SIGNATURE ON FILE Chava Sampson 11/20/21 1749 END OF REPORT AB HEPATITIS B [id number] 07:23:00* Test Item Value Reference Range Interpretation [...] this result as normal/abnormal. AG HEPATITIS B [id number] 07:23:00* Test Item Value Reference Range Interpretation Comme nts AG HEPATITIS B SURFACE (test code = HBSAG) NON REACTIVE INDEX NonReactive AB HEPATITIS B [id number] 07:23:00* Test Item Value Reference Range Interpretation Comme nts AB HEPATITIS B CORE (test code = HBCAB) Negative Negative Performed At : [facility] [id number] Kyle L MD Ph:[phone] C REACTIVE [id number] 04:44:00* Test Item Value Reference Range Interpretation Comme nts C REACTIVE PROTEIN (test cod e = CRP) 6.420 MG/DL 0.000-0.3 H CBC W/AUTO [id number] 04:30:00* Test Item Value Reference Range Interpretation [...] MDIFF) NO DIFF/SCN CRITERIA AG HEPATITIS B [id number] 03:43:00* Test Item Value Reference Range Interpretation Comme nts AG HEPATITIS B SURFACE (test code = HBSAG) NON REACTIVE INDEX NonReactive BASIC METABOLIC [id number] 07:04:00* Test Item Value Reference Range Interpretation [...] code = CA) 9.6 MG/DL 8.5-10.1 N [id number] 05:46:00* Test Item Value Reference Range Interpretation Comme nts VANCOMYCIN (test code = VANCO) 8.6 mcG/ML 5-40 N LACTIC [id number] 07:20:00* Test Item Value Reference Range Interpretation Comme nts LACTIC ACID (test code = LACT) 1.6 mmol/L 0.4-2.0 N BASIC METABOLIC [id number] 07:08:00* Test Item Value Reference Range Interpretation [...] = CA) 9.2 MG/DL 8.5-10.1 N LACTIC [id number] 18:57:00* Test Item Value Reference Range Interpretation Comme nts LACTIC ACID (test code = LACT) 2.2 mmol/L 0.4-2.0 H BASIC METABOLIC [id number] 17:57:00* Test Item Value Reference Range Interpretation [...] 8.5-10.1 N Completed by Nursing: NOHEPATIC FUNCTION [id number] 17:57:00* Test Item Value Reference Range Interpretation [...] 50-136 H Completed by Nursing: NOTROP-I HIGH [id number] 17:57:00* Test Item Value Reference Range Interpretation [...] may varyby method. Completed by Nursing: NOLACTIC [id number] 17:57:00* Test Item Value Reference Range Interpretation Comme nts LACTIC ACID (test code = LACT) 2.5 mmol/L 0.4-2.0 H - XR HAND 3+V [id number] 17:49:00 [facility] 1955 Sex: M Name: IRA RAYA [facility] [place] : 1955 Age/S: 66 / M [address] Unit #: [id number] Loc: [place] [address] Phys: Richy Barrios DO Acct: [id number] Dis Date: Status: REG ER PHONE #: [phone] Exam Date: 11/15/2021 2495 FAX #: Reason: index finger gangrene EXAMS: CPT: [id number] XR HAND 3+[place] [address] Fluoro Time: DAP (Gy m2): Air Kerma (mGy): Location: H 31 Exam: Left Hand, 3 Views History: Index finger gangrene Comparison: None Findings: The bones are diffusely demineralized. The erosive changes and fragmentation, possibly pathologic fracture, at the 2nd middle phalanx distally. Diffuse soft tissue swelling involves the 2nd digit. No evidence of soft tissue gashowever. The remaining osseous structures demonstrate no findings. Vascular calcification is are seen at the distal forearm. Impression: 1. Erosive changes and fragmentation, possibly pathologic fracture, at the 2nd middle phalanx distally. Diffuse soft tissue swelling involves the 2nd digit. No evidence of soft tissue gas however. 2. Diffuse osteopenia noted. at 3751 Reported and signed by: Bindu Villegas MD CC: Richy Barrios DO PAGE 1 Signed Report Name: IRA RAYA [facility] : 1955 Age/S: 66 / M [address] Unit #: [id number] Loc: [place] [address] Phys: Richy Barrios DO Acct: [id number] Dis Date: Status: REG ER PHONE #: [phone] Exam Date: 11/15/2021 1735 FAX #: Reason: index finger gangrene EXAMS: CPT: [id number] XR HAND 3+[place] [address] Fluoro Time: DAP (Gy m2): Air Kerma (mGy): <Continued> Technologist: Yissel Penn, RT(R)(CT) Trnscb Date/Time: 11/15/2021(174) [email or web address] Orig Print D/T: S: 11/15/2021 (8944) PAGE 2 Signed Report- XR HAND 3+V [id number] 17:49:00[facility] : 1955 Sex: M Name: IRA RAYA [facility] : 1955 Age/S: 66 / M [address] Unit #: [id number] Loc: [place] [address] Phys: Richy Barrios DO Acct: [id number] Dis Date: 20211118 Status:DIS IN PHONE #: [phone] Exam Date: 11/15/2021 1735 FAX #: Reason: index finger gangrene EXAMS:CPT: [id number] XR HAND 3+[place] [address] Fluoro Time: DAP (Gy m2): Air Kerma [...] Signed Report Name: IRA RAYA [facility] : 1955 Age/S: 66 / M [address] Unit #: [id number] Loc: [place] [address] Phys: Richy Barrios DO Acct: [id number] Dis Date: 20211118 Status: DIS IN PHONE #: [phone] Exam Date: 11/15/2021 1735 FAX #: Reason: index finger gangrene EXAMS: CPT: [id number] XR HAND 3+[place] [address] Fluoro Time: DAP (Gy m2): Air Kerma (mGy): (Continued) Technologist: Yissel Penn, RT(R)(CT) Trnscb Date/Time: 11/15/2021 (383) [id number] Orig Print D/T: S: 11/15/2021 (0083) PAGE 2 Signed ReportCBC W/AUTO [id number] 17:42:00* Test Item Value Reference Range Interpretation [...] NO DIFF/SCN CRITERIA - XR CHEST 1 [id number] 17:41:00 [facility] : 1955 Sex: M Name: IRA RAYA [facility] : 1955 Age/S: 66 / M [address] Unit #: [id number] Loc: [place] [address] Phys: Richy Barrios DO Acct: [id number] Dis Date: Status: PRE ER PHONE #: [phone] Exam Date: 11/15/2021 5509 FAX #: Reason: Code Sepsis EXAMS: CPT: [id number] XR CHEST 1 V 29070 Fluoro Time: DAP (Gy m2): Air Kerma [...] 1 Signed Report Name: IRA RAYA BRENDON [facility] : 1955 Age/S: 66 / M [address] Unit #: [id number] Loc: [place] [address] Phys: Richy Barrios DO Acct: [id number] Dis Date: Status: PRE ER PHONE #: [phone] Exam Date: 11/15/2021 174 FAX #: Reason: Code Sepsis EXAMS: CPT: [id number] XR CHEST 1 V 78907 Fluoro Time: DAP (Gy m2): Air Kerma (mGy): <Continued> Technologist: Yissel Penn, RT(R)(CT) Trnscb Date/Time: 11/15/2021 (1740) Eliot.[email or web address] Orig Print D/T: S: 11/15/2021 (679) PAGE 2 Signed Report- XR CHEST 1 [id number] 17:41:00[facility] : 1955 Sex: M Name: IRA RAYA [facility] : 1955 Age/S: 66 / M [address] Unit #: [id number] Loc: [place] [address] Phys: Richy Barrios DO Acct: [id number] Dis Date: 20211118 Status: DIS IN PHONE #: [phone] Exam Date: 11/15/20211739 FAX #: Reason: Code Sepsis EXAMS: CPT: [id number] XR CHEST 1 V 22030 Fluoro Time: DAP (Gy m2): Air Kerma (mGy): B2 EXAM: - XR CHEST 1 V HISTORY : Code Sepsis COMPARISON: None FINDINGS: The lungs are clear. No pleural effusion or pneumothorax. The cardiac silhouette is within normal limits. No acute osseous abnormalities. IMPRESSION: No acutecardiopulmonary disease. at 1741 Reported and signed by: Chris You M.D. CC: Richy Barrios DO PAGE 1 Signed Report Name: [facility] [place] [facility] 1955 Age/S: 66 / M [address] [facility] Unit #: [id number] Loc: [place] [address] Phys: Richy Barrios DO Acct: [id number] Dis Date: 20211118 Status: DIS IN PHONE #: [phone] Exam Date: 11/15/2021 1740 FAX #: Reason: Code Sepsis EXAMS: CPT: [id number] XR CHEST 1 V 08996 Fluoro Time: DAP (Gy m2): Air Kerma (mGy): (Continued) Technologist: Yissel Penn, RT(R)(CT) Trnscb Date/Time: 11/15/2021 (1740) [id number] Orig Print D/T: S: 11/15/2021 (174) PAGE 2 Signed ReportCOVID 19 Asymptomatic IH AG 2021-11-15 17:30:00* Test Item Value Reference Range Interpretation Comme nts COVID 19 Asymptomatic IH AG (test code = COVNONPUIAG) NEGATIVE Negative Per gun striper , negative results should be treated aspresumptive [...] symptoms consistent with COVID-19. AB HEPATITIS B [id number] 14:12:00* Test Item Value Reference Range Interpretation [...] this result as normal/abnormal. AG HEPATITIS B [id number] 14:12:00* Test Item Value Reference Range Interpretation Comme nts AG HEPATITIS B SURFACE (test code = HBSAG) NON REACTIVE INDEX NonReactive AB HEPATITIS B [id number] 14:12:00* Test Item Value Reference Range Interpretation Comme nts AB HEPATITIS B CORE (test code = HBCAB) Negative Negative Performed At : [facility] [address] [place], [place] [id number] Sulaiman Navas MD Ph:[phone] BASIC METABOLIC [id number] 06:55:00* Test Item Value Reference Range Interpretation [...] CA) 9.0 MG/DL 8.5-10.1 N CBC W/AUTO [id number] 06:33:00* Test Item Value Reference Range Interpretation [...] c ode = MDIFF) NO DIFF/SCN CRITERIA [id number] 05:55:00* Test Item Value Reference Range Interpretation Comme nts PHOSPHOROUS (test code = PHOS) 3.5 MG/DL 2.5-4.9 N AG HEPATITIS B [id number] 03:08:00* Test Item Value Reference Range Interpretation Comme nts AG HEPATITIS B SURFACE (test code = HBSAG) NON REACTIVE INDEX NonReactive COVID 19 Asymptomatic IH [id number] 19:39:00* Test Item Value Reference Range Interpretation Comme nts COVID 19 Asymptomatic IH AG (test code = COVNONPUIAG) NEGATIVE Negative Per gun striper , negative results should be treated aspresumptive [...] and symptoms consistent with COVID-19. BASIC METABOLIC [id number] 19:21:00* Test Item Value Reference Range Interpretation [...] CA) 9.4 MG/DL 8.5-10.1 N CBC W/AUTO [id number] 19:02:00* Test Item Value Reference Range Interpretation [...] CRITERIA - CT UP EXTREM W/O CONT [id number] 13:39:00 [facility] 1955 Sex: M Name: IRA RAYA [facility] [place] : 1955 Age/S: 66 / M [address] [facility] Unit #: [id number] Loc: [place] [address] Phys: Jyoti Andrew MD Acct: [id number] Dis Date: Status: REG ER PHONE #: [phone] Exam Date: 10/05/2021 1050 FAX #: Reason: left hand pain/swelling EXAMS: CPT: [id number] CT [place] EXTREM W/[place] [address] Location: [facility] Study: - CT UP EXTREM W/O CONT [...] and/or utilization of iterative reconstruction technique. Comparison: NoneFindings: There is no acute fracture. There is no subluxation or dislocation of the visualized joints. There are multiple intraosseous cysts within the carpal bones, largest within the distal scaphoid pole measuring 8 mm. No acute bony erosion or osseous destruction is present. There is a partiallyvisualized tubular hypodense structure with peripheral calcifications within [...] within the lateral distal forearm, this could reflecta graft or venous varicosity for which peripheral calcifications would suggest chronic thrombosis. Correlate with surgical history. Nonspecific diffuse subcutaneous edema. at 1339 Reported and signed by: Tyrese Thorne M.D. PAGE 1 Signed Report (CONTINUED) Name: IRA RAYA [facility] : 1955 Age/S: 66 / M [address] [address] Unit #: [id number] Loc: [place] [address] Phys: Jyoti Andrew MD Acct: [id number] Dis Date: Status: REG ER PHONE #: [phone] Exam Date: 10/05/2021 1050 FAX #: Reason: left hand pain/swelling EXAMS: CPT: [id number] [place] EXTREM W/[place] [address] (Continued) CC: Keisha Benson MD; Naina HUNTER; Jyoti Andrew MD Technologist:Luis Manuel Ceballos, RT(R)(CT); .. CTDI: DLP: Trnscb Date/Time: 10/05/2021 (1339) t.SDR.RH16 Orig Print D/T: S: 10/05/2021 (1342) PAGE 2 Signed ReportBASIC METABOLIC [id number] 12:38:00* Test Item Value Reference Range Interpretation [...] 8.5-10.1 L Completed by Nursing: NOHEPATIC FUNCTION [id number] 12:38:00* Test Item Value Reference Range Interpretation [...] 50-136 H Completed by Nursing: NOTROP-I HIGH [id number] 12:38:00* Test Item Value Reference Range Interpretation [...] may varyby method. Completed by Nursing: NOLACTIC [id number] 12:16:00* Test Item Value Reference Range Interpretation Comme nts LACTIC ACID (test code = LACT) 1.5 mmol/L 0.4-2.0 N CBC W/AUTO [id number] 12:05:00* Test Item Value Reference Range Interpretation [...] NO DIFF/SCN CRITERIA - XR CHEST 1 [id number] 11:11:00 [facility] : 1955 Sex: M Name: IRA RAYA [facility] [place] : 1955 Age/S: 66 / M [address] [address] Unit #: [id number] Loc: [place] [address] Phys: Jyoti Andrew MD Acct: [id number] Dis Date: Status: REG ER PHONE#: [phone] Exam Date: 10/05/2021 1059 FAX #: Reason: Code Sepsis EXAMS: CPT: [id number] XR CHEST 1 V 21668 Fluoro Time: DAP (Gy m2): Air Kerma (mGy): Clinical Information: Code sepsis. Infection left hand Dictation Location: B2 COMPARISON: 04/11/2021. FINDINGS: Portable frontal view of the chest taken at 1050 hours shows mild cardiomegaly. Mild central vascular interstitial prominence remainsalthough is somewhat less prominent than on the prior study. Slight elevation of the left hemidiaphragm again noted. No support tubes or lines are seen at this time. There remains slight blunting of the left costophrenic angle. No interval bone changes. IMPRESSION: 1. Stable cardiomegaly. 2. Interval reduction in prominence of vascular interstitial markings. at 1111 Reported and signed by: Erlin An M.D. CC: Keisha Benson MD; Naina HUNTER; Jyoti Andrew MD PAGE 1 Signed Report Name: IRA RAYA [facility] : 1955 Age/S: 66 / M [address] [address] Unit #: [id number] Loc: [place] [address] Phys: Jyoti Andrew MD Acct: [id number] Dis Date: Status: REG ER PHONE #: [phone] Exam Date: 10/05/2021 1055 FAX #: Reason: Code Sepsis EXAMS: CPT: [id number] XR CHEST 1 V 76997 Fluoro Time: DAP (Gy m2): Air Kerma (mGy): (Continued) Technologist: Lucy Yo RT(R) Trngoldyb Date/Time: 10/05/2021 (1111) t.JOSELUISR.AGV Orig Print D/T: S: 10/05/2021 (1114) PAGE 2 Signed ReportGLUCOSE BEDSIDE TESTING 2021-04-16 15:57:00* Test Item Value Reference Range Interpretation Comme nts GLUCOSE BEDSIDE TESTING (zaki t code = GLUBED) 101 mg/dL 70-110 N GLUCOSE BEDSIDE [id number] 11:38:00* Test Item Value Reference Range Interpretation Comme nts GLUCOSE BEDSIDE TESTING (zaki t code = GLUBED) 102 mg/dL 70-110 N GLUCOSE BEDSIDE [id number] 07:31:00* Test Item Value Reference Range Interpretation Comme nts GLUCOSE BEDSIDE TESTING (zaki t code = GLUBED) 78 mg/dL 70-110 N CBC W/AUTO [id number] 07:02:00* Test Item Value Reference Range Interpretation [...] SLIDE REVIEW CONSISTANT WITH AUTO DIFFERENTIAL. RBC [id number] 07:02:00* Test Item Value Reference Range Interpretation [...] (test code = PLTMORPH) NORMAL GLUCOSE BEDSIDE [id number] 20:16:00* Test Item Value Reference Range Interpretation Comme nts GLUCOSE BEDSIDE TESTING (zaki t code = GLUBED) 89 mg/dL 70-110 N GLUCOSE BEDSIDE [id number] 15:43:00* Test Item Value Reference Range Interpretation Comme nts GLUCOSE BEDSIDE TESTING (zaki t code = GLUBED) 108 mg/dL 70-110 N COVID 19 INHOUSE [id number] 12:34:00* Test Item Value Reference Range Interpretation Comme nts COVID 19 INHOUSE AG (test code = [id number]) NEGATIVE Negative Per gun striper , negative results should be treated aspresumptive [...] and symptoms consistent with COVID-19. GLUCOSE BEDSIDE [id number] 11:49:00* Test Item Value Reference Range Interpretation Comme nts GLUCOSE BEDSIDE TESTING (zaki t code = GLUBED) 119 mg/dL 70-110 H GLUCOSE BEDSIDE [id number] 07:31:00* Test Item Value Reference Range Interpretation Comme nts GLUCOSE BEDSIDE TESTING (zaki t code = GLUBED) 111 mg/dL 70-110 H GLUCOSE BEDSIDE [id number] 20:42:00* Test Item Value Reference Range Interpretation Comme nts GLUCOSE BEDSIDE TESTING (zaki t code = GLUBED) 116 mg/dL 70-110 H GLUCOSE BEDSIDE [id number] 16:51:00* Test Item Value Reference Range Interpretation Comme nts GLUCOSE BEDSIDE TESTING (zaki t code = GLUBED) 114 mg/dL 70-110 H GLUCOSE BEDSIDE [id number] 11:48:00* Test Item Value Reference Range Interpretation Comme nts GLUCOSE BEDSIDE TESTING (zaki t code = GLUBED) 124 mg/dL 70-110 H GLUCOSE BEDSIDE [id number] 07:48:00* Test Item Value Reference Range Interpretation Comme nts GLUCOSE BEDSIDE TESTING (zaki t code = GLUBED) 99 mg/dL 70-110 N GLUCOSE BEDSIDE [id number] 21:38:00* Test Item Value Reference Range Interpretation Comme nts GLUCOSE BEDSIDE TESTING (zaki t code = GLUBED) 102 mg/dL 70-110 N GLUCOSE BEDSIDE [id number] 16:06:00* Test Item Value Reference Range Interpretation Comme nts GLUCOSE BEDSIDE TESTING (zaki t code = GLUBED) 138 mg/dL 70-110 H GLUCOSE BEDSIDE [id number] 12:05:00* Test Item Value Reference Range Interpretation Comme nts GLUCOSE BEDSIDE TESTING (zaki t code = GLUBED) 121 mg/dL 70-110 H GLUCOSE BEDSIDE [id number] 07:29:00* Test Item Value Reference Range Interpretation Comme nts GLUCOSE BEDSIDE TESTING (zaki t code = GLUBED) 112 mg/dL 70-110 H CBC W/AUTO [id number] 05:57:00* Test Item Value Reference Range Interpretation [...] REVIEW CONSISTANT WITH AUTO DIFFERENTIAL. BASIC METABOLIC [id number] 04:48:00* Test Item Value Reference Range Interpretation [...] CA) 9.3 MG/DL 8.5-10.1 N GLUCOSE BEDSIDE [id number] 20:01:00* Test Item Value Reference Range Interpretation Comme nts GLUCOSE BEDSIDE TESTING (zaki t code = GLUBED) 109 mg/dL 70-110 N GLUCOSE BEDSIDE [id number] 16:34:00* Test Item Value Reference Range Interpretation Comme nts GLUCOSE BEDSIDE TESTING (zaki t code = GLUBED) 94 mg/dL 70-110 N GLUCOSE BEDSIDE [id number] 12:13:00* Test Item Value Reference Range Interpretation Comme nts GLUCOSE BEDSIDE TESTING (zaki t code = GLUBED) 94 mg/dL 70-110 N GLUCOSE BEDSIDE [id number] 11:13:00* Test Item Value Reference Range Interpretation Comme nts GLUCOSE BEDSIDE TESTING (zaki t code = GLUBED) 102 mg/dL 70-110 N CBC W/AUTO [id number] 06:05:00* Test Item Value Reference Range Interpretation [...] REVIEW CONSISTANT WITH AUTO DIFFERENTIAL. BASIC METABOLIC [id number] 05:29:00* Test Item Value Reference Range Interpretation [...] CA) 10.3 MG/DL 8.5-10.1 H GLUCOSE BEDSIDE [id number] 21:29:00* Test Item Value Reference Range Interpretation Comme nts GLUCOSE BEDSIDE TESTING (zaki t code = GLUBED) 125 mg/dL 70-110 H GLUCOSE BEDSIDE [id number] 18:03:00* Test Item Value Reference Range Interpretation Comme nts GLUCOSE BEDSIDE TESTING (zaki t code = GLUBED) 130 mg/dL 70-110 H GLUCOSE BEDSIDE [id number] 16:33:00* Test Item Value Reference Range Interpretation Comme nts GLUCOSE BEDSIDE TESTING (zaki t code = GLUBED) 139 mg/dL 70-110 H GLUCOSE BEDSIDE [id number] 08:04:00* Test Item Value Reference Range Interpretation Comme nts GLUCOSE BEDSIDE TESTING (zaki t code = GLUBED) 124 mg/dL 70-110 H - XR CHEST 1 [id number] 08:00:00 [facility] : 1955 Sex: M Name: IRA RAYA [facility] [place] : 1955 Age/S: 65 / M [address] [address] Unit #: [id number] Loc: [place] [address] Phys: Noé Granado MD Acct: [id number] Dis Date: Status: ADM IN PHONE #: [phone] Exam Date: 04/11/2021629 FAX #: Reason: RESP FAILURE EXAMS: CPT: [id number] XR CHEST 1 V 7 1045 Fluoro Time: DAP (Gy m2): Air Kerma (mGy): EXAMINATION: - XR CHEST 1 V. LOCATION: H42. HISTORY: RESP FAILURE, hypoxia, Covid 19. COMPARISON: Chest x-ray 04/10/21. FINDINGS: Examination is limited due to portable technique and patient body habitus. Cardiac silhouette/Mediastinal contour: Persistent enlargement of cardiac silhouette. Atherosclerotic calcification of aortic arch. Lungs: Bilateral scattered interstitial and groundglass airspace opacities, unchanged. No large pleural effusion. Osseous Structures: Degenerative changes of thoracic spine. Additional Findings: Left-sided central line tip overlies lower SVC. IMPRESSION: Unchanged bilateral scattered interstitial and groundglass airspace opacities. at 0800 Reported and signed by: Biju Fuentes M.D. CC: Noé Granado MD; Mandy Devlin MD PAGE 1 Signed Report Name: IRA RAYA [place] : 1955 Age/S: 65 / M [address] [address] Unit #: [id number] Loc: [place] [address] Phys: Noé Granado MD Acct: [id number] Dis Date: Status: ADM IN PHONE #: [phone] Exam Date: 04/11/2021 0630 FAX #: Reason: RESP FAILURE EXAMS: CPT: [id number] XR CHEST 1 V 79274 Fluoro Time: DAP (Gy m2): Air Kerma (mGy): (Continued) Technologist: Marjorie Villavicencio, RT(R)(CT) Trnscb Date/Time: 04/11/2021 (0800) tROXR.ANS4 Orig Print D/T: S: 04/11/2021 (0803) PAGE 2 Signed ReportBASIC METABOLIC [id number] 05:55:00* Test Item Value Reference Range Interpretation [...] CA) 10.3 MG/DL 8.5-10.1 H CBC W/AUTO [id number] 05:44:00* Test Item Value Reference Range Interpretation [...] = MDIFF) NO DIFF/SCN CRITERIA GLUCOSE BEDSIDE [id number] 20:41:00* Test Item Value Reference Range Interpretation Comme [facility] GLUCOSE BEDSIDE TESTING (zaki t code = GLUBED) 148 mg/dL 70-110 H GLUCOSE BEDSIDE [id number] 16:28:00* Test Item Value Reference Range Interpretation Comme [facility] GLUCOSE BEDSIDE TESTING (zaki t code = GLUBED) 135 mg/dL 70-110 H GLUCOSE BEDSIDE [id number] 12:03:00* Test Item Value Reference Range Interpretation Comme nts GLUCOSE BEDSIDE TESTING (zaki t code = GLUBED) 162 mg/dL 70-110 H ARTERIAL BLOOD [id number] 11:59:00* Test Item Value Reference Range Interpretation Comme [facility] ARTERIAL BLOOD GAS PH (test code = [...] (test code = MODALL) Yes Circ.CHK POSITIVE PaO2/[id number] 11:59:00* Test Item Value Reference Range Interpretation Comme nts PaO2/FiO2 (test code = YZE3IBH1) 307.5 mm/Hg See_Comment [Automated mess age] The system which generated this result transmitted reference range: 200. The reference range was not used to interpret this result as normal/abnormal. GLUCOSE BEDSIDE [id number] 08:28:00* Test Item Value Reference Range Interpretation Comme [facility] GLUCOSE BEDSIDE TESTING (zaki t code = GLUBED) 119 mg/dL 70-110 H - XR CHEST 1 [id number] 07:31:00 [facility] : 1955 Sex: M Name: IRA RAYA [facility] [place] : 1955 Age/S: 65 / M [address] [address] Unit #: [id number] Loc: [place] [address] Phys: Alex Davis MD Acct: [id number] Dis Date: Status: ADM IN PHONE #: [phone] Exam Date: 04/10/2021 0646 FAX #: Reason: covid EXAMS: CPT: [id number] XR CHEST 1 V 97612 Fluoro Time: DAP (Gy m2): Air Kerma (mGy): EXAM: - XR CHEST 1 V INDICATION: covid T18 TECHNIQUE: Frontal view of the chest. FINDINGS: Bilateral opacities appear slightly decreased since 04/06/2021. Unchanged left central line. Cardiomediastinal silhouette and osseous structures appear unremarkable. No pleural effusion appreciated. IMPRESSION: Slightly decreased opacities. at 0731 Reported and signed by: Juanito Acevedo M.D. CC: Mandy Devlin MD; Alex Davis MD PAGE 1 Signed Report Name: IRA RAYA [place] : 1955 Age/S: 65 / M [address] [address] Unit #: [id number] Loc: [place] [address] Phys: Alex Davis MD Acct: [id number] Dis Date: Status: ADM IN PHONE #: [phone] Exam Date: 04/10/2021 0646 FAX #: Reason: covid EXAMS: CPT: [id number] XR CHEST 1 V 04481 Fluoro Time: DAP (Gy m2): Air Kerma(mGy): (Continued) Technologist: Marjorie Villavicencio, RT(R)(CT) Trnscb Date/Time: 04/10/2021 (730)SusanR.AH26 Orig Print D/T: S: 04/10/2021 (0734) PAGE 2 Signed ReportGLUCOSE BEDSIDE [id number] 21:46:00* Test Item Value Reference Range Interpretation Comme nts GLUCOSE BEDSIDE TESTING (zaki t code = GLUBED) 116 mg/dL 70-110 H GLUCOSE BEDSIDE [id number] 13:59:00* Test Item Value Reference Range Interpretation Comme nts GLUCOSE BEDSIDE TESTING (zaki t code = GLUBED) 108 mg/dL 70-110 N BASIC METABOLIC [id number] 06:00:00* Test Item Value Reference Range Interpretation [...] code = CA) 9.8 MG/DL 8.5-10.1 N [id number] 06:00:00* Test Item Value Reference Range Interpretation Comme nts VANCOMYCIN (test code = VANCO) 17.8 mcG/ML 5-40 N C REACTIVE [id number] 05:59:00* Test Item Value Reference Range Interpretation Comme nts C REACTIVE PROTEIN (test cod e = CRP) 2.690 MG/DL 0.000-0.3 H CBC W/AUTO [id number] 05:37:00* Test Item Value Reference Range Interpretation [...] = MDIFF) NO DIFF/SCN CRITERIA GLUCOSE BEDSIDE [id number] 20:39:00* Test Item Value Reference Range Interpretation Comme nts GLUCOSE BEDSIDE TESTING (zaki t code = GLUBED) 82 mg/dL 70-110 N GLUCOSE BEDSIDE [id number] 17:25:00* Test Item Value Reference Range Interpretation Comme nts GLUCOSE BEDSIDE TESTING (zaki t code = GLUBED) 81 mg/dL 70-110 N GLUCOSE BEDSIDE [id number] 11:56:00* Test Item Value Reference Range Interpretation Comme nts GLUCOSE BEDSIDE TESTING (zkai t code = GLUBED) 80 mg/dL 70-110 N GLUCOSE BEDSIDE [id number] 08:20:00* Test Item Value Reference Range Interpretation Comme nts GLUCOSE BEDSIDE TESTING (zaki t code = GLUBED) 114 mg/dL 70-110 H CBC W/AUTO [id number] 06:16:00* Test Item Value Reference Range Interpretation [...] CONSISTANT WITH AUTO DIFFERENTIAL. AB HEPATITIS B [id number] 06:11:00* Test Item Value Reference Range Interpretation [...] this result as normal/abnormal. AG HEPATITIS B [id number] 06:11:00* Test Item Value Reference Range Interpretation Comme nts AG HEPATITIS B SURFACE (test code = HBSAG) NON REACTIVE INDEX NonReactive AB HEPATITIS B [id number] 06:11:00* Test Item Value Reference Range Interpretation Comme nts AB HEPATITIS B CORE (test code = HBCAB) Negative Negative Performed At : [facility] [id number] Sulaiman Navas MD Ph:[phone] COMPREHENSIVE METABOLIC [id number] 05:12:00* Test Item Value Reference Range Interpretation [...] 147 Unit/L 50-136 H AG HEPATITIS B [id number] 03:58:00* Test Item Value Reference Range Interpretation Comme nts AG HEPATITIS B SURFACE (test code = HBSAG) NON REACTIVE INDEX NonReactive - CT HEAD/BRAIN W/O [id number] 22:22:00 [facility] : 1955 Sex: M Name: IRA RAYA [facility] : 1955 Age/S: 65 / M [address] [address] Unit #: [id number] Loc: [place] [address] Phys: Rome Tyler MD Acct: [id number] Dis Date: Status: ADM IN PHONE #: [phone] Exam Date: 04/07/20212208 FAX #: Reason: ams EXAMS: CPT: [id number] CT HEAD/BRAIN W/O CONT 82736 Location: H3 CT head, 04/07/21 COMPARISON EXAMS:None [...] In particular, no subarachnoid hemorrhage is identified. Nointra or extra-axial masses. Bone windows unremarkable. No significant sinus disease is noted. No acute territorial infarction is seen. There is atrophy age appropriate. No hydrocephalus or compromise of the basilar cisterns are IMPRESSION: No acute finding at 2222 Reported and signed by: Mikki Leonard M.D.CC: Rome Tyler MD; Mandy Devlin MD Technologist:Marjorie Villavicencio, RT(R)(CT) CTDI: DLP: Trnscb Date/Time: 04/07/2021 (2221) tKENNETHDAS6 Orig Print D/T: S: 04/07/2021 (2224) PAGE 1 Signed ReportGLUCOSE BEDSIDE [id number] 20:52:00* Test Item Value Reference Range Interpretation Comme nts GLUCOSE BEDSIDE TESTING (zaki t code = GLUBED) 128 mg/dL 70-110 H GLUCOSE BEDSIDE [id number] 20:15:00* Test Item Value Reference Range Interpretation Comme nts GLUCOSE BEDSIDE TESTING (zaki t code = GLUBED) 103 mg/dL 70-110 N GLUCOSE BEDSIDE [id number] 16:40:00* Test Item Value Reference Range Interpretation Comme nts GLUCOSE BEDSIDE TESTING (zaki t code = GLUBED) 136 mg/dL 70-110 H ARTERIAL BLOOD [id number] 16:39:00* Test Item Value Reference Range Interpretation [...] (test code = MODALL) Yes Circ.CHK POSITIVE PaO2/[id number] 16:39:00* Test Item Value Reference Range Interpretation Comme nts PaO2/FiO2 (test code = [id number]) 202.0 mm/Hg See_Comment [Automated mess age] The system which generated this result transmitted reference range: 200. The reference range was not used to interpret this result as normal/abnormal. GLUCOSE BEDSIDE [id number] 14:50:00* Test Item Value Reference Range Interpretation Comme nts GLUCOSE BEDSIDE TESTING (zaki t code = GLUBED) 138 mg/dL 70-110 H [id number] 10:56:00* Test Item Value Reference Range Interpretation Comme nts FERRITIN (test code = VANESSA) 1079.2 ng/mL 23.9-336.2 H [id number] 10:56:00* Test Item Value Reference Range Interpretation Comme nts FERRITIN (test code = VANESSA) 1079.2 ng/mL 23.9-336.2 H GLUCOSE BEDSIDE [id number] 08:30:00* Test Item Value Reference Range Interpretation Comme nts GLUCOSE BEDSIDE TESTING (zaki t code = GLUBED) 123 mg/dL 70-110 H [id number] 07:29:00* Test Item Value Reference Range Interpretation Comme nts PHOSPHOROUS (test code = PHOS) 3.9 MG/DL 2.5-4.9 N LACTIC DEHYDROGENASE(LDH)2021-04-07 07:29:00* Test Item Value Reference Range Interpretation Comme nts LACTIC DEHYDROGENASE(LDH) (t est code = LDH) 170 Unit/L 87-241 N [id number] 07:29:00* Test Item Value Reference Range Interpretation Comme [facility] MAGNESIUM (test code = MAG) 2.4 MG/DL 1.8-2.4 N THYROID STIMULATING [id number] 07:29:00* Test Item Value Reference Range Interpretation Comme nts THYROID STIMULATING HORMONE (test code = TSH) 0.605 mcIU/ML 0.340-4.820 N C REACTIVE [id number] 07:27:00* Test Item Value Reference Range Interpretation Comme nts C REACTIVE PROTEIN (test cod e = CRP) 5.920 MG/DL 0.000-0.3 H S-[id number] 06:48:00* Test Item Value Reference Range Interpretation Comme [facility] D-DIMER (test code = DDIMER) 775 ng/mLFEU 215-500 HH THROMBOSIS AND/O R PULMONARY EMBOLISM AND THE CLINICAL CUT-OFF VALUE FOR EXCLUSION (500 ng/mL FEU) OF THESE CONDITIONSIS VALIDATED BY THE THERAPY TECHNICIAN OF THE METHOD. A NEGATIVE D-DIMER RESULT WHEN COMBINED WITH A CLINICALASSESSMENT OF LOW PRETEST PROBABILITY HAS BEEN SHOWN TO HAVEA HIGH NEGATIVE PREDICTIVE VALUE OF DVT OR PE. D-DIMER VALUES >500 ng/mL FEU ARE NOT DIAGNOSTIC FOR DVT, PEor DIC WITHOUT OTHER CONFIRMATORY TESTS AND APPROPRIATECLINICAL EUALUATIONS. [id number] 04:09:00* Test Item Value Reference Range Interpretation [...] Completed by Nursing: NO- CTA CHEST FOR [id number] 02:36:00 [facility] 1955 Sex: M Name: IRA RAYA [place] : 1955 Age/S: 65 / M [address] [address] Unit #: [id number] Loc: [place] [address] Phys: Mandy Devlin MD Acct: [id number] Dis Date: Status: ADM IN PHONE #: [phone] Exam Date: 04/07/2021218 FAX #: Reason: COVID 19, HYPOXIA, EVAL FOR PE EXAMS: CPT: [id number] [place] [address] Examination: Chest CT with contrast Location code: [...] 0236 Reported and signed by: Ira Rosen M.D.PAGE 1 Signed Report (CONTINUED) Name: IRA RAYA [facility] [place] : 1955 Age/S: 65 / M [address] Unit #: [id number] Loc: [place] [address] Phys: Mandy Devlin MD Acct: [id number] Dis Date: Status: ADM IN PHONE #: [phone] Exam Date: 04/07/2021218 FAX #: Reason: COVID 19,HYPOXIA, EVAL FOR PE EXAMS: CPT: [id number] [place] [address] (Continued) CC: Mandy Devlin MD;Karla HUNTER Technologist:Ira Oconnell RT(R) CTDI: DLP: Trnscb Date/Time: 04/07/2021 (235) tKENNETHJH12 Orig Print D/T: S: 04/07/2021 (238) PAGE 2 Signed ReportTROPONIN-I 2021-04-07 01:08:00* Test [...] may varyby method. Completed by Nursing: NOLACTIC [id number] 23:57:00* Test Item Value Reference Range Interpretation Comme nts LACTIC ACID (test code = LACT) 1.4 mmol/L 0.4-2.0 N - XR CHEST 1 [id number] 22:54:00 [facility] 1955 Sex: M Name: [place] : 1955 Age/S: 65 / M [address] [address] Unit #: [id number] Loc: [place] [address] Phys: Skip Rollins MD Acct: [id number] Dis Date: Status: REG ER PHONE #: [phone] Exam Date: 04/06/20212247 FAX #: Reason: s/p left IJ CVC placement EXAMS: CPT: [id number] XR CHEST 1 V 89689 Fluoro Time: DAP (Gy m2): Air Kerma [...] pneumothorax. Bilateral infiltrates without significant change. at 8040 Reported and signed by: Beto Cassidy M.D. CC: PAGE 1 Signed Report Name: IRA RAYA Dale : 1955 Age/S: 65 / M [address] [address] Unit #: [id number] Loc: [place] [address] Phys: Skip Rollins MD Acct: [id number] Dis Date: Status: REG ER PHONE #: [phone] Exam Date: 04/06/2021 FAX #: Reason: s/p left IJ CVC placement EXAMS: CPT: [id number] XR CHEST 1 V 47362 Fluoro Time: DAP (Gy m2): Air Kerma (mGy): (Continued) Technologist: Sloane Bass RT(R)(CT) Trnscb Date/Time: 04/06/2021 (4174) [id number] Orig Print D/T: S: 04/06/2021 (2473) PAGE 2 Signed ReportCoronavirus 2019 nCoV [id number] 22:28:00* Test Item Value Reference Range Interpretation Comme nts Coronavirus 2018 nCoV Bedsid e (test code = [id number]) Positive Negative CBC W/AUTO [id number] 20:19:00* Test Item Value Reference Range Interpretation [...] ode = MDIFF) NO DIFF/SCN CRITERIA RBC [id number] 20:19:00* Test Item Value Reference Range Interpretation Comme nts HYPOCHROMIA (test code = HYPO) 1+ ON SCAN NONE PLATELET ESTIMATE (test code = PLTEST) ADEQUATE THOUSAND ADEQUATE PLATELET MORPHOLOGY (test code = PLTMORPH) NORMAL - XR CHEST 1 [id number] 20:11:00 [facility] : 1955 Sex: M Name: IRA RAYA [facility] [place] : 1955 Age/S: 65 / M [address] Unit #: [id number] Loc: [place] [address] Phys: Erlin George MD Acct: [id number] Dis Date: Status: REG ER PHONE #:[phone] Exam Date: 04/06/20211932 FAX #: Reason: weakness EXAMS: CPT: [id number] XR CHEST 1 [id number] Fluoro Time: DAP (Gy m2): Air Kerma (mGy): Examination: One view chest x-ray Location code: H60 Comparison: None Discussion: Clinical history is remarkable for generalized weakness. Heart is normal in size. Bilateral pulmonary infiltrates are identified consistent with bilateral pneumonia. No effusions are noted. There is no evidence for pneumothorax. Impression: 1. Bilateral pulmonary inf iltrates consistent with bilateral pneumonia. at 2010 Reported and signed by: Marco A Vasquez M.D. CC: Erlin George MD; Daryl Benoit NP PAGE 1 Signed Report Name: IRA RAYA [facility] : 1955 Age/S: 65 / M [id number] Unit #: [id number] Loc: [place] [address] Phys: Erlin George MD Acct: [id number] Dis Date: Status: REG ER PHONE #: [phone] Exam Date: 04/06/2021 193 FAX #: Reason: weakness EXAMS: CPT: [id number] XR CHEST 1 V 81976 Fluoro Time: DAP (Gy m2): Air Kerma (mGy): (Continued) Technologist: Lucy Yo RT(R) Trnscb Date/Time: 04/06/2021 (2010) [id number] Orig Print D/T: S: 04/06/2021 (2013) PAGE 2 Signed ReportBASIC METABOLIC [id number] 20:10:00* Test Item Value Reference Range Interpretation [...] 10.4 MG/DL 8.5-10.1 H Completed by Nursing: [id number] 20:10:00* Test Item Value Reference Range Interpretation [...] NOCT Neck Soft Tissue w/ + w/o [id number] 09:06:44 Patient: IRA ARYA Date/Time05/11/2019 08:27 CDTReason for ExamSIALOADENTITISReportEXAMINATION: CT NECK [...] SamerSigned (Electronic Signature): 05/11/2019 9:06 amBlood Urea [id number] 09:09:14 * Test Item Value Reference Range Interpretation Comme nts BUN (test code = BUN) 16 mg/dL 7-18 [id number] 09:09:14* Test Item Value Reference Range Interpretation Comme nts Creatinine Level (test code = Creatinine Level) 0.9 mg/dL 0.7-1.3 eGFR AA (test code = eGFR AA) >60 mL/min/1.73 m2 N eGFR Non-AA (test code = eGFR Non-AA) >60 mL/min/1.73 m2 N [id number] 09:09:14* Test Item Value Reference Range Interpretation Comme nts Creatinine Level (test code = Creatinine Level) 0.9 mg/dL 0.7-1.3 eGFR AA (test code = eGFR AA) >60 mL/min/1.73 m2 N eGFR Non-AA (test code = eGFR Non-AA) >60 mL/min/1.73 m2 N [id number] 09:09:14* Test Item Value Reference Range Interpretation Comme nts Creatinine Level (test code = Creatinine Level) 0.9 mg/dL 0.7-1.3 eGFR AA (test code = eGFR AA) >60 mL/min/1.73 m2 N eGFR Non-AA (test code = eGFR Non-AA) >60 mL/min/1.73 m2 N PATHOLOGY [id number] 11:52:00- TISSUE CONSULTATION REPORTBAOAKBEND MEDICAL CENTERDEPARTMENT OF PATHOLOGYP.OPerry PANI[address] [address] ROBERT NATALYA MEDINA M.D.JOSEPH M. WEMPE, M.D.__ Pa loulou: IRA RAYA 03/11/1956 61 MRoom:Hosp#: [id number] Ordering Physician: Dominick BENOIT Rec.: 10/27/2017Date of Proc.: 10/27/2017LabNo.: [id number] PRE-OPERATIVE DIAGNOSIS:-FINAL ANATOMIC DIAGNOSIS:SOFT TISSUE MASS, RIGHT [...] PHYSICAL THERAPY Duplicate consult Karol Childress PT [facility] 2023-03-18 06:01:00 Associated Order(s): CONSULT ADULT OCCUPATIONAL THERAPY 03/18/2023 0601 OCCUPATIONAL THERAPY NOTE: Duplicate consult. ROSS Ortega, OTD, C/NDT Isis Brown OT [facility] 2023-03-15 09:53:00 Associated Order(s): CONSULT ADULT OCCUPATIONAL THERAPY OT GENERAL EVALUATION Consult received via [employer], EMR reviewed and evaluation completed 03/15/23. Patient [...] Increased risk of falls Equipment Recommendations:Long handled centrifugal screen tender, Hospital bed, Low air loss mattress, Overhead [...] Right 05/28/2020 Surgeon: Leann Regalado MD; Location: [facility] OR Location DISTAL HUMERUS ORIF (SHX) Left 1972 EXCISE ADRENAL GLAND Left 2006 FRACTURE SURGERY KNEE ARTHROSCOPY Left 1986 OPEN CARPAL TUNNEL RELEASE Right 05/28/2020 Surgeon: Leann Regalado MD; Location: [facility] OR [facility] CO PRQ TRLUML CORONARY STENT W/ANGIO ONE ART/BRNC [...] provided. Individual verbalizes understanding of teaching provided. ROSS Yi, MOT Total Timed Treatment Codes: 6 Min [...] to complete evaluation component. Gary Melvin OT [facility] 2023-03-15 09:52:00 Associated Order(s): CONSULT ADULT PHYSICAL [...] perinephric hemorrhage Supratherapeutic INR, improved Type II AL Afib (on Eliquis) CAD HTN Reported hx [...] Right 05/28/2020 Surgeon: Leann Regalado MD; [facility] Location DISTAL HUMERUS ORIF (SHX) Left 1972 EXCISE ADRENAL GLAND Left 2006 FRACTURE SURGERY KNEE ARTHROSCOPY Left 1985 OPEN CARPAL TUNNEL RELEASE Right 05/28/2020 Surgeon: Leann Regalado MD; Location: [facility] OR Location CO PRQ TRLUML CORONARY STENT W/ANGIO ONE ART/BRNC [...] before and after session COMMUNICATION Primary Language: Israeli Able to Verbalize needs: Yes Vision:glasses Hearing:good; [...] Minutes: 35 min Cisco Britton PT, DPT [facility] Physical Therapy Rehabilitation Services Cisco Britton PT [facility] 2023-03-12 06:00:00 Associated Order(s): CONSULT UROLOGY UROLOGY CONSULTATION NOTE Requesting Physician: Steve Anand Jr., MD Date of Service: 03/12/2023 Reason for Consult: Left perinephric hematoma History of Present Illness Ira Raya, 67 year old male with PMH of ESRD, CAD, crohn's, adrenal insufficiency, HLD, HTN, DM2, hx PE, PCKD who presents as a transfer from [facility] in [facility] due to hemorrhagic shock from suspected [...] Right 05/28/2020 Surgeon: Leann Regalado MD; Location: [facility] OR Location DISTAL HUMERUS ORIF (SHX) Left 1972 EXCISE ADRENAL GLAND Left 2006 FRACTURE SURGERY KNEE ARTHROSCOPY Left 1986 OPEN CARPAL TUNNEL RELEASE Right 05/28/2020 Surgeon: Leann Regalaod MD; Location: [facility] OR [facility] [place] PRQ TRLUML CORONARY STENT W/ANGIO ONE ART/BRNCH 2007 REMOVAL ANAL FISTULA,COMPLEX/MULTI 03/2015 No family history on file. Social History Socioeconomic History Marital status: Spouse name: Edith Number of children: 3 Highest education level: [...] perinephric hematoma and hemorrhagic shock transferred from [facility] in [facility]. Currently stable on 0.2 Levo with MAPs >65. Pain minimal. Recommendations: --Follow up CTA results --IR for embolization if necessary pending CTA --Trend Hgb, transfuse as needed per protocol --No surgical intervention from Urology warranted at this point --Rest per primary Jil Louis MD Urology Resident Pager: please page adult basic education manager using [employer] Associated attestation - Thiago De La Torre MD - 03/12/2023 3:11 PM CDT Agree with note and plan as outlined by Dr Louis. Thiago De La Torre MD 03/12/2023 3:11 PM [facility] - Health History and Physical Notes [...] midodrine and was referred to evaluation at [facility]. Whilst there, patient was found to have INR 17.8 and continued hemodynamic instability with MAP in 40's and not fluid responsive. He had R femoral CVC placed and started on norepinephrine. Imaging revealed a left lindsey-nephric fluid collection, likely a hemorrhage. Given these findings and hemodynamic instability, patient was transferred to [facility] for IR and Urologic evaluation. On [...] History: Procedure Laterality Date APPENDECTOMY CHOLECYSTECTOMY COLONOSCOPY 2014 CUBITAL TUNNEL RELEASE Right 05/28/2020 Surgeon: Leann Regalado MD; Location: [facility] OR Location DISTAL HUMERUS ORIF (SHX) Left 1972 EXCISE ADRENAL GLAND Left 2006 FRACTURE SURGERY KNEE ARTHROSCOPY Left 1985 OPEN CARPAL TUNNEL RELEASE Right 05/28/2020 Surgeon: Leann Regalado MD; Location: [facility] OR [facility] [place] PRQ TRLUML CORONARY STENT W/ANGIO ONE ART/BRNCH 2007 REMOVAL ANAL FISTULA,COMPLEX/MULTI 03/2015 FAMILY HISTORY No family history on file. SOCIAL HISTORY Social History Socioeconomic History Marital status: Spouse name: Edith Number of children: 3 Highest education level: [...] INR --Coagulopathy -- improved Likely type II AL PLAN Improvement in INR Urology consulted IR evaluated and did not note extravasation Hold anticoagulation [facility] - [facility] Procedure Notes Date/Time Note Provider Source 2023-03-12 19:50:03 Procedure(s): CENTRA L LINE Central Venous Access Internal Jugular Procedure Note Date of Service: 03/12/23 Faculty: Dr. Ashley Loya, credentialed dive supervisor, was present for ge portions of the [...] Claros MD Dept of Internal Medicine PGY-2, [facility] Team Associated attestation - Susan Ramirez MD - 03/13/2023 8:17 AM CDT I was not present for but agree with the need for the procedure. [facility]
[2024-07-19] MEDS ORDERED: NA CHLORIDE 0.9% 250 ML ONE (11:37)
[2024-07-19] MEDS ORDERED: MIDODRINE HCL 5 MG TABLET ONE (12:14)
[2024-07-19 12:21] LABS: SARS-CoV-2 Antigen CONTROL BLUE LINE VIS/BG OK; SARS-CoV-2 Antigen Rapid Res Negative (Negative)
--- NOTE | 2024-07-19 13:18 | RAD REPORT ---
EXAMINATION: ONE VIEW CHEST XR CLINICAL INDICATION: hypotension TECHNIQUE: Frontal chest projection is submitted. Examination is limited by patient positioning and t echnique. COMPARISON: 05/17/2024 FINDINGS: Mild interstitial pulmonary edema. The heart is moderately enlarged. No displaced fractures identifie d. IMPRESSION: Mild CHF versus volume overload.
[2024-07-19] MEDS ORDERED: NOREPINEPHRINE BITARTRATE/D5W 4 MG/250 ML KIT IV ONE ×2 (13:41→18:12)
[2024-07-19 13:42] LABS: Absolute Lymphocytes (CBC) 0.2 K/uL (0.7-4.9); Absolute Monocytes 1.2 K/uL (0.1-1.3); Absolute Neutrophil 9.2 K/uL (1.8-8.0); Basophils % 0.3 % (0-1.3); Eosinophils % 0.2 % (0-4.4); Hematocrit 32.9 % (39.6-49.0); Hemoglobin 10.3 g/dL (13.6-17.9); Lymphocytes % 1.9 % (15.3-44.8); MCH 26.9 pg (27.0-35.0); MCHC 31.3 g/dL (32.0-36.0); MPV 9.5 fL (7.6-11.3); Monocytes % 11.1 % (3.3-12.3); Neutrophils % 86.5 % (41.7-73.7); Nucleated Red Blood Cells % 0.2 % (0-0); Platelets 178 thou/uL (152-406); RBC Red Blood Cell Count 3.83 M/uL (4.33-5.43); Red Cell Distribution Width 21.6 % (12.1-15.2)
[2024-07-19 13:44] LABS: Albumin 2.5 g/dL (3.4-5.0); Albumin/Globulin Ratio 0.7 (1.1-1.8); Anion Gap 8.4 mEq/L (5.0-15.0); Bilirubin Total 0.7 mg/dL (0.2-1.0); Globulin 3.7 g/dL (2.3-3.5); Protein, Total 6.2 g/dL (6.4-8.2)
[2024-07-19 13:47] LABS: Potassium 3.4 mEq/L (3.5-5.1)
--- NOTE | 2024-07-19 14:20 | EDPHYS ---
Physician Documentation [facility] Name: Adriel Raya Age: 69 yrs Sex: Male : 1955 Arrival Date: 07/19/2024 Time: 11:17 Bed 4 Private MD: ED Physician Steve Anand HPI: 07/19 14:02 This 69 yrs old Black Male presents to ER via EMS with complaints of General Weakness, rn Blood Pressure Problem. 14:02 EMS reports patient picked up from home for decreased responsiveness and altered mental rn status. Blood pressures in the 70s systolic. Tried a 250 cc bolus as that is what usually helps this patient with known orthostatic hypotension. 250 cc fluid did not show response so they started Levophed at low-dose. Patient had improved mental status and blood pressure up to 100/75. Patient denies recent illness. No fever. No chest pain. No shortness of breath or abdominal pain. No vomiting or diarrhea. Family states no new medication. Last dialysis was yesterday.. Severity of symptoms: At their worst the symptoms were moderate in the emergency department the symptoms have improved. The patient has experienced similar episodes in the past. Historical: - Allergies: 11:34 Augmentin; kc6 11:34 Norvasc; kc6 - PMHx: 11:34 Dialysis; Diverticulitis; Hypertension; Diabetes mellitus; Kidney disease; Atrial kc6 fibrillation; - PSHx: 11:34 Appendectomy; Left arm dialysis fistula; kc6 - Immunization history:: Adult Immunizations up to date. - Infectious Disease History:: Denies. - Social history:: Smoking status: Patient denies any tobacco usage or history of. - Family history:: not pertinent. - Hospitalizations: : No recent hospitalization is reported. ROS: 14:02 Constitutional: Negative for fever, chills, and weight loss, Cardiovascular: Negative rn for chest pain, palpitations, and edema, Respiratory: Negative for shortness of breath, cough, wheezing, and pleuritic chest pain, Abdomen/GI: Negative for abdominal pain, nausea, vomiting, diarrhea, and constipation, Back: Negative for injury and pain, MS/Extremity: Negative for injury and deformity, Skin: Negative for injury, rash, and discoloration, Neuro: Positive for generalized weakness and malaise Exam: 14:02 Constitutional: This is a well developed, well nourished patient who is awake, rn somnolent but awakens to voice Head/Face: Normocephalic, atraumatic. Cardiovascular: Regular rate and irregular rhythm. No pulse deficits. Respiratory: No increased work of breathing, no retractions or nasal flaring. Abdomen/GI: Soft, nontender MS/ Extremity: Pulses equal, no cyanosis. Neurovascular intact. Full, normal range of motion. Equal circumference. Neuro: Somnolent but awakens to voice. Moves all 4 extremities with equal strength that is 4 out of 5. 14:16 ECG was reviewed by the Attending Physician. rn Vital Signs: 11:32 BP 80 / 57; Pulse 71; Resp 18 S; Temp 99.5(O); Pulse Ox 100% on 3 lpm NC; Weight 143.34 kc6 kg (M); Height 6 ft. 0 in. (R); Pain 0/10; 11:49 BP 95 / 75; Pulse 73; Resp 18 S; Pulse Ox 100% on 3 lpm NC; kc6 12:03 BP 79 / 59; kc6 12:20 BP 83 / 50; Pulse 75; Resp 19 S; Pulse Ox 99% on 3 lpm NC; kc6 13:12 BP 122 / 54; Pulse 71; Resp 16 S; Pulse Ox 93% on 3 lpm NC; kc6 13:28 BP 72 / 46; Pulse 76; Resp 25; Pulse Ox 91% ; bp 14:57 BP 119 / 64; rn 15:11 BP 113 / 63; Pulse 76; Resp 18 S; Pulse Ox 98% on 3 lpm NC; kc6 16:00 BP 105 / 40; Pulse 71; Resp 18; Pulse Ox 97% on BiPAP; FiO2 45 %; bp 17:00 BP 92 / 59; Pulse 76; Resp 18; Pulse Ox 95% on BiPAP; FiO2 45 %; bp 17:22 BP 127 / 42; Pulse 70; Resp 16 S; Pulse Ox 97% on BiPAP; kc6 11:32 Body Mass Index 42.86 (143.34 kg, 182.88 cm) 6 11:32 Pain Scale: Adult kc6 MDM: 11:22 Medical Screening Exam initiated rn 14:12 Differential Diagnosis Orthostatic hypotension, hypotension, viral illness, dehydration.rn 14:14 Data reviewed: vital signs, nurses notes, lab test result(s), radiologic studies, plain rn films, and as a result, I will admit patient. Consideration of Admission/Observation Patient was admitted/placed on observation. Escalation of care including admission/observation considered. Counseling: I had a detailed discussion with the patient and/or guardian regarding the historical points, exam findings, and any diagnostic results supporting the discharge/admit diagnosis, lab results, radiology results, the need for further work-up and treatment in the hospital. ED course: Patient comes frequently for orthostatic hypotension or hypotension following dialysis. Patient did not take midodrine today, given here in addition to fluid bolus, 250 cc x 2. Will not give any more fluid due to already signs of volume overload on chest x-ray as well as ESRD patient. Started on Levophed for pressure support and response with improved mental status and blood pressure. Will admit to hospitalist service for further evaluation. No focal source of infection identified at this time. Cefepime ordered for empiric coverage.. 14:57 ED course: Glucose 102. rn 15:02 ED course: ABG obtained shows starting to retain CO2 with CO2 of 70, pH of 7.238. 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 Will place on BiPAP. Discussed this with Dr. Lawrence. 15:06 ED course: I personally spent 35 minutes engaged in work directly related to the rn individual patient's care. This does not include any time spent performing procedures. The patient has been deemed critically ill because of altered mental status, hypotension requiring pressor support, stabilization of ESRD patient and organization of hospital. Also discussion with family regarding CODE STATUS, need for BiPAP.. 15:54 ED course: Discussed case with hospitalist service, Dr. Lawrence, we discussed central rn line versus continuation of Levophed through peripheral line, joint decision made to continue through peripheral line at this time given patient ESRD, already poor access and INR of 15.. 07/19 11:28 Order name: Blood Culture Adult (2) rn 07/19 11:28 Order name: CBC with Diff rn 07/19 11:28 Order name: CMP; Complete Time: 14:16 rn 07/19 11:28 Order name: Lactate w/ 2H reflex if indic.; Complete Time: 14:16 rn 07/19 11:28 Order name: Protime (+inr) rn 07/19 11:28 Order name: Ptt, Activated rn 07/19 11:28 Order name: Flu; Complete Time: 13:22 rn 07/19 11:28 Order name: SARS-COV-2 Antigen Rapid; Complete Time: 13:22 rn 07/19 12:35 Order name: Glucose, Ancillary Testing; Complete Time: 13:22 EDMS 07/19 14:46 Order name: ABG rn 07/19 15:09 Order name: Glucose, Ancillary Testing EDMS 07/19 15:14 Order name: T4 Free EDMS 07/19 15:14 Order name: Thyroid Stimulating Hormone EDMS 07/19 15:14 Order name: Urinalysis w/ reflexes EDMS 07/19 15:14 Order name: Basic Metabolic Panel EDMS 07/19 15:14 Order name: Basic Metabolic Panel EDMS 07/19 15:14 Order name: Basic Metabolic Panel EDMS 07/19 15:14 Order name: Basic Metabolic Panel EDMS 07/19 15:14 Order name: Basic Metabolic Panel EDMS 07/19 15:14 Order name: Basic Metabolic Panel EDMS 07/19 15:14 Order name: Basic Metabolic Panel EDMS 07/19 15:14 Order name: Basic Metabolic Panel EDMS 07/19 15:14 Order name: CBC with Automated Diff EDMS 07/19 15:14 Order name: CBC with Automated Diff EDMS 07/19 15:14 Order name: CBC with Automated Diff EDMS 07/19 15:14 Order name: CBC with Automated Diff EDMS 07/19 15:14 Order name: CBC with Automated Diff EDMS 07/19 15:14 Order name: CBC with Automated Diff EDMS 07/19 15:14 Order name: CBC with Automated Diff EDMS 07/19 15:14 Order name: CBC with Automated Diff EDMS 07/19 15:14 Order name: Lipid Profile EDMS 07/19 15:14 Order name: Lipid Profile EDMS 07/19 15:14 Order name: Magnesium EDMS 07/19 15:14 Order name: Magnesium EDMS 07/19 15:14 Order name: Magnesium EDMS 07/19 15:14 Order name: Magnesium EDMS 07/19 15:14 Order name: Magnesium EDMS 07/19 15:14 Order name: Magnesium EDMS 07/19 15:14 Order name: Magnesium EDMS 07/19 15:14 Order name: Magnesium EDMS 07/19 15:14 Order name: Phosphorus EDMS 07/19 15:14 Order name: Phosphorus EDMS 07/19 15:14 Order name: Phosphorus EDMS 07/19 15:14 Order name: Phosphorus EDMS 07/19 15:14 Order name: Phosphorus EDMS 07/19 15:14 Order name: Phosphorus EDMS 07/19 15:14 Order name: Phosphorus EDMS 07/19 15:14 Order name: Phosphorus EDMS 07/19 15:14 Order name: Troponin High Sensitivity EDMS 07/19 15:14 Order name: Troponin High Sensitivity EDMS 07/19 15:14 Order name: Troponin High Sensitivity EDMS 07/19 15:14 Order name: Troponin High Sensitivity EDMS 07/19 16:56 Order name: Ammonia EDMS 07/19 11:28 Order name: Chest Single View XRAY; Complete Time: 13:22 rn 07/19 15:03 Order name: BIPAP rn 07/19 15:06 Order name: CT Head Brain wo Cont rn 07/19 15:06 Order name: CT Chest Abdomen Pelvis W/O Contrast rn 07/19 17:03 Order name: CT EDMS 07/19 15:14 Order name: CONS Physician Consult EDMS 07/19 11:28 Order name: Accucheck; Complete Time: 12:24 rn 07/19 11:28 Order name: Cardiac monitoring; Complete Time: 11:35 rn 07/19 11:28 Order name: EKG - Nurse/Tech; Complete Time: 11:35 rn 07/19 11:28 Order name: IV Saline Lock - Large Bore; Complete Time: 12:53 rn 07/19 11:28 Order name: Labs collected and sent; Complete Time: 12:53 rn 07/19 11:28 Order name: O2 Per Protocol; Complete Time: 11:35 rn 07/19 11:28 Order name: O2 Sat Monitoring; Complete Time: 11:35 rn 07/19 11:28 Order name: Vital Signs; Complete Time: 11:35 rn 07/19 14:46 Order name: Glucose Level; Complete Time: 14:59 rn EC:16 Rate is 72 beats/min. Rhythm is irregularly irregular. QRS interval is normal. QT rn interval is normal. No Q waves. T waves are Normal. No ST changes noted. Clinical impression: Atrial Fibrillation. Interpreted by me. Reviewed by me. Administered Medications: 11:48 Drug: NS 0.9% IV 250 ml IV at calculated rate once; to be given as a bolus over 30 kc6 minutes Route: IV; Rate: calculated rate; Site: right forearm; 12:20 Follow up: Response: No adverse reaction; Blood pressure is unchanged; IV Status: kc6 Completed infusion; IV Intake: 250ml 12:20 Drug: midodrine 10 mg PO once Route: PO; kc6 13:50 Follow up: Response: No adverse reaction bp 13:35 Drug: Norepinephrine IV 0.1 mcg/kg/min IV at calculated rate See Administration bp Instructions; (Standard concentration 4 mg / 250 mL D5W); Recommended max rate 3 mcg/kg/min; Titrate 0.05 mcg/kg/min as often as every 5 minutes to achieve goal (see titration policy); Goal parameter MAP greater than 65 mmHg. Route: IV; Rate: calculated rate; Site: right forearm; 17:31 Follow up: IV Status: Infusion continued upon admission bp 14:32 Drug: Cefepime IVPB 1 grams IVPB at 200 ml/hr once over 30 mins; (mix in NS 100 mL) bp Route: IVPB; Rate: 200 ml/hr; Infused Over: 30 mins; Site: right forearm; 15:13 Follow up: Response: No adverse reaction; IV Status: Completed infusion; IV Intake: kc6 100ml 15:02 Drug: Solu-CORTEF IVP 100 mg IVP once Route: IVP; Site: right forearm; bp 15:14 Follow up: Response: No adverse reaction kc6 Disposition Summary: 07/19/24 14:19 Hospitalization Ordered Notes: Hospitalization Status: Inpatient Admission rn Provider: Jose Lawrence rn Location: Intensive Care Unit(07/19/24 14:19) rn Condition: Stable(07/19/24 14:19) rn Problem: an acute exacerbation(07/19/24 14:19) rn Symptoms: have improved(07/19/24 14:19) rn Bed/Room Type: Standard rn Room Assignment: 3-(07/19/24 15:24) em1 Diagnosis - Orthostatic hypotension(07/19/24 14:19) rn - Altered mental status, unspecified(07/19/24 14:19) rn - Muscle weakness (generalized)(07/19/24 14:19) rn Forms: - Medication Reconciliation Form rn - SBAR form rn - Leadership Thank You Letter 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 Total time: 35 minutes Signatures: Dispatcher [employer] Steve Kee MD MD rn Martinez, Eric em1 Flash Fernandez, RN RN bp Niecy Pierre, RN RN kc6 Corrections: (The following items were deleted from the chart) 11:28 BLOOD CULTURE*+BA.LAB.BRZ ordered. EDMS EDMS 11:28 CBC+H.LAB.BRZ ordered. EDMS EDMS 11 11:28 COMPREHENSIVE METABOLIC PANEL+C.LAB.BRZ ordered. EDDC EDMS 11:28 LACTATE+C.LAB.BRZ ordered. EDDC EDMS 11 11:28 PROTIME (+INR)+COAG.LAB.BRZ ordered. EDDC EDMS 11:28 PTT, ACTIVATED+COAG.LAB.BRZ ordered. EDDC EDMS 11 11:28 Influenza Screen (A \T\ B)+BA.LAB.BRZ ordered. EDDC EDMS 11 11:28 SARS-COV-2 Antigen Rapid+I.LAB.BRZ ordered. EDDC EDMS 11: 11:28 Chest Single View+RAD.RAD.BRZ ordered. EDDC EDMS 14:17 14:02 Constitutional: This is a well developed, well nourished patient who is awake, rn somnolent but awakens to voice Head/Face: Normocephalic, atraumatic. Cardiovascular: Regular rate and rhythm. No pulse deficits. Respiratory: No increased work of breathing, no retractions or nasal flaring. Abdomen/GI: Soft, nontender MS/ Extremity: Pulses equal, no cyanosis. Neurovascular intact. Full, normal range of motion. Equal circumference. Neuro: Somnolent but awakens to voice. Moves all 4 extremities with equal strength that is 4 out of 5. rn 14:18 14:18 Home rn rn 14:18 14:18 new rn rn 14:18 14:18 have improved rn rn 14:18 14:18 Stable rn rn 14:18 14:18 Orthostatic hypotension rn rn 14:18 14:18 Muscle weakness (generalized) rn rn 14: 14:18 Altered mental status, unspecified rn rn 15: 14: rn em1
--- NOTE | 2024-07-19 14:20 | ER ---
Nurse's Notes [facility] Name: Adriel Raya Age: 69 yrs Sex: Male : 1955 Arrival Date: 07/19/2024 Time: 11:17 Bed 4 Private MD: Diagnosis: Orthostatic hypotension;Altered mental status, unspecified;Muscle weakness (generalized) Presentation: 07/19 11:32 Chief complaint: EMS states: they were toned out for lethargy and low BP. upon [facility] arrival BP was 65/40. Coronavirus screen: At this time, the client does not indicate any symptoms associated with coronavirus-19. Ebola Screen: No symptoms or risks identified at this time. Initial Sepsis Screen: Does the patient meet any 2 criteria? Systolic BP < 90 mmHg. Mean Arterial Pressure (MAP) < 65. Does the patient have a suspected source of infection? No. Patient's initial sepsis screen is negative. Risk Assessment: Do you want to hurt yourself or someone else? Patient reports no desire to harm self or others. Onset of symptoms was July 19, 2024. Care prior to arrival: Medication(s) given: Normal saline infusion, 250 mL Norepinephrine 1mg in 100 mL of NS at 10mcg/min IV initiated. 22 GA, in the right forearm, Glucose check: 104 Oxygen administered. via nasal cannula. 11:32 Method Of Arrival: EMS: [facility] [place] [id number] 11:32 Acuity: [facility] Triage Assessment: 11:40 General: Appears distressed, obese, unkempt, Behavior is unresponsive. Pain: Unable to bp use pain scale. EENT: No deficits noted. Neuro: Level of Consciousness is obtunded, Oriented to none. Cardiovascular: Rhythm is sinus rhythm. Respiratory: No deficits noted. GI: No signs and/or symptoms were reported involving the gastrointestinal system. : No signs and/or symptoms were reported regarding the genitourinary system. Derm: No deficits noted. Musculoskeletal: No deficits noted. Historical: - Allergies: 11:34 Augmentin; kc6 11:34 Norvasc; kc6 - PMHx: 11:34 Dialysis; Diverticulitis; Hypertension; Diabetes mellitus; Kidney disease; Atrial kc6 fibrillation; - PSHx: 11:34 Appendectomy; Left arm dialysis fistula; kc6 - Immunization history:: Adult Immunizations up to date. - Infectious Disease History:: Denies. - Social history:: Smoking status: Patient denies any tobacco usage or history of. - Family history:: not pertinent. - Hospitalizations: : No recent hospitalization is reported. Screenin:35 [facility] ED Fall Risk Assessment (Adult) History of falling in the last 3 months, kc6 including since admission No falls in past 3 months (0 pts) Confusion or Disorientation No (0 pts) Intoxicated or Sedated No (0 pts) Impaired Gait Yes (1 pt) Mobility Assist Device Used Yes (1 pt) Altered Elimination Yes (1 pt) Score/Fall Risk Level 3 or more points = High Risk Oriented to surroundings, Maintained a safe environment, Educated pt \T\ family on fall prevention, incl call for assistance when getting out of bed. Abuse screen: Denies threats or abuse. Denies injuries from another. Nutritional screening: No deficits noted. Tuberculosis screening: No symptoms or risk factors identified. Assessment: 11:49 General: Appears in no apparent distress. comfortable, obese, well groomed, well kc6 developed, Behavior is calm, cooperative, appropriate for age, drowsy. Pain: Denies pain. Neuro: Level of Consciousness is awake, alert, obeys commands, lethargic, Oriented to person, place, time, situation, Appropriate for age. Cardiovascular: Denies chest pain, shortness of breath, Capillary refill < 3 seconds Rhythm is atrial fibrillation Dialysis shunt: in the anterior aspect of left upper chest, with no erythema, with no edema, no bleeding noted. Respiratory: Airway is patent Trachea midline Respiratory effort is even, unlabored, Respiratory pattern is regular, symmetrical. GI: No signs and/or symptoms were reported involving the gastrointestinal system. : No signs and/or symptoms were reported regarding the genitourinary system. EENT: No signs and/or symptoms were reported regarding the EENT system. Derm: No signs and/or symptoms reported regarding the dermatologic system. Skin is intact, is healthy with good turgor, Skin is pink, warm \T\ dry. Musculoskeletal: No signs and/or symptoms reported regarding the musculoskeletal system. Circulation, motion, and sensation intact. Range of motion: intact in all extremities. 12:49 Reassessment: Patient appears in no apparent distress at this time. No changes from kc6 previously documented assessment. Patient and/or family updated on plan of care and expected duration. Pain level reassessed. Patient is alert, oriented x 3, equal unlabored respirations, skin warm/dry/pink. 13:28 Reassessment: PER MD, EMS LEVOPHED DRIP RESTARTED. bp 15:00 Reassessment: pt responsive to verbal and painful stimulus but unable to communicate at kc6 this time. pt remains drowsy. MD made aware. 15:15 Respiratory: Patient placed on BiPAP:. kc6 16:00 Reassessment: Patient appears in no apparent distress at this time. No changes from kc6 previously documented assessment. Patient and/or family updated on plan of care and expected duration. Pain level reassessed. 16:30 Reassessment: PT TO CT PER PROVIDER. bp 17:00 Reassessment: Patient appears in no apparent distress at this time. No changes from kc6 previously documented assessment. Patient and/or family updated on plan of care and expected duration. Pain level reassessed. 17:02 Reassessment: PT RETURNED FROM CT. bp 17:30 Reassessment: REPORT TO [facility] FOR ICU 3. bp Vital Signs: 11:32 BP 80 / 57; Pulse 71; Resp 18 S; Temp 99.5(O); Pulse Ox 100% on 3 lpm NC; Weight 143.34 kc6 kg (M); Height 6 ft. 0 in. (R); Pain 0/10; 11:49 BP 95 / 75; Pulse 73; Resp 18 S; Pulse Ox 100% on 3 lpm NC; kc6 12:03 BP 79 / 59; kc6 12:20 BP 83 / 50; Pulse 75; Resp 19 S; Pulse Ox 99% on 3 lpm NC; kc6 13:12 BP 122 / 54; Pulse 71; Resp 16 S; Pulse Ox 93% on 3 lpm NC; kc6 13:28 BP 72 / 46; Pulse 76; Resp 25; Pulse Ox 91% ; bp 14:57 BP 119 / 64; rn 15:11 BP 113 / 63; Pulse 76; Resp 18 S; Pulse Ox 98% on 3 lpm NC; kc6 16:00 BP 105 / 40; Pulse 71; Resp 18; Pulse Ox 97% on BiPAP; FiO2 45 %; bp 17:00 BP 92 / 59; Pulse 76; Resp 18; Pulse Ox 95% on BiPAP; FiO2 45 %; bp 17:22 BP 127 / 42; Pulse 70; Resp 16 S; Pulse Ox 97% on BiPAP; kc6 11:32 Body Mass Index 42.86 (143.34 kg, 182.88 cm) kc6 11:32 Pain Scale: Adult kc6 ED Course: 11:19 Patient arrived in ED. em1 11:22 Steve Anand MD is Attending Physician. rn 11:31 Niecy Pierre RN is Primary Nurse. kc6 11:34 Triage completed. kc6 11:34 Arm band placed on. kc6 11:35 Patient has correct armband on for positive identification. Placed in gown. Bed in low kc6 position. Call light in reach. Side rails up X2. Adult w/ patient. engine monitor on. Pulse ox on. NIBP on. Door closed. Noise minimized. Lights dimmed. Warm blanket given. Pillow given. 11:35 Maintain EMS IV. Dressing intact. Good blood return noted. Site clean \T\ dry. Gauge \T\ aria 6 site: 22G RFA. Flushed with 10 mL NS. Oxygen administration via nasal cannula \T\ 3L/min. 11:48 SARS-COV-2 Antigen Rapid Sent. kc6 11:48 Flu Sent. kc6 12:54 Chest Single View XRAY In Process Unspecified. EDMS 12:54 Accessed peripheral vein via ultrasound, utilizing dynamic ultrasound technique using bp 20G Nexia IV catheter per hospital protocol. 14:19 Jose Lawrence is Hospitalizing Provider. rn 17:03 No provider procedures requiring assistance completed. Patient admitted, IV remains in bp place. 17:32 Provided Education on: N/A. bp Administered Medications: 11:48 Drug: NS 0.9% IV 250 ml IV at calculated rate once; to be given as a bolus over 30 kc6 minutes Route: IV; Rate: calculated rate; Site: right forearm; 12:20 Follow up: Response: No adverse reaction; Blood pressure is unchanged; IV Status: kc6 Completed infusion; IV Intake: 250ml 12:20 Drug: midodrine 10 mg PO once Route: PO; kc6 13:50 Follow up: Response: No adverse reaction bp 13:35 Drug: Norepinephrine IV 0.1 mcg/kg/min IV at calculated rate See Administration bp Instructions; (Standard concentration 4 mg / 250 mL D5W); Recommended max rate 3 mcg/kg/min; Titrate 0.05 mcg/kg/min as often as every 5 minutes to achieve goal (see titration policy); Goal parameter MAP greater than 65 mmHg. Route: IV; Rate: calculated rate; Site: right forearm; 17:31 Follow up: IV Status: Infusion continued upon admission bp 14:32 Drug: Cefepime IVPB 1 grams IVPB at 200 ml/hr once over 30 mins; (mix in NS 100 mL) bp Route: IVPB; Rate: 200 ml/hr; Infused Over: 30 mins; Site: right forearm; 15:13 Follow up: Response: No adverse reaction; IV Status: Completed infusion; IV Intake: kc6 100ml 15:02 Drug: Solu-CORTEF IVP 100 mg IVP once Route: IVP; Site: right forearm; bp 15:14 Follow up: Response: No adverse reaction kc6 Medication: 17:32 VIS not applicable for this client. bp Intake: 12:20 IV: 250ml; Total: 250ml. kc6 15:13 IV: 100ml; Total: 350ml. kc6 Outcome: 14:18 Discharge ordered by MD. rn 14:19 Decision to Hospitalize by Provider. rn 17:31 Admitted to ICU accompanied by nurse, via stretcher, room ICU 3, with oxygen, on bp monitor, Report called to NURYS 17:31 Condition: stable 17:31 Instructed on the need for admit, 18:26 Patient left the ED. ap3 Signatures: Dispatcher [employer] Steve Kee MD MD rn Martinez, Eric em1 Flash Fernandez RN RN bp Netta Daley RN RN ap3 Niecy Pierre RN RN kc6
[2024-07-19] MEDS ORDERED: NA CHLORIDE 0.9% 100 ML ONE (14:23)
[2024-07-19] MEDS ORDERED: CEFEPIME 1 GM/VIAL ONE (14:23)
[2024-07-19 14:57] LABS: PT Prothrombin Time 148.3 SECONDS (9.4-12.5)
[2024-07-19 14:58] LABS: PTT, Activated Partial Thromb 100.5 SECONDS (24.3-36.9)
[2024-07-19 14:59] LABS: Protime INR 14.31
[2024-07-19] MEDS ORDERED: HYDROCORTISONE SUC 100 MG INJ ONE (14:59)
[2024-07-19] MEDS ORDERED: ACETAMINOPHEN 650MG/RECT SUPP PR PRN (15:07)
--- NOTE | 2024-07-19 15:19 | P.HP ---
Certification for Inpatient Patient admitted to: Inpatient With expected LOS: >2 Midnights Practitioner: I am a practitioner with admitting privileges, knowledge of patient current condition, hospital course, and medical plan of care. Services: Services provided to patient in accordance with Admission requirements found in Title 42 Section 412.3 of the Code of Federal Regulations Patient History Date of Service: 07/19/24 Reason for admission: Hypovolemic vs cardiogenic shock History of Present Illness: Adriel Raya is a 69 year old with Pmhx ESRD with HD MWF, Diverticulitis, Hypertension, adrenal insufficiency, hemorrhagic renal cysts, diabetes mellitus, Kidney disease, Atrial fibrillation on coumadin, PE who presents to the ED with altered mental status, unable to wake up. Family at the bedside reports Adriel had dialysis yesterday returning home between 2 and 2:30 with normal mental condition. They tried to wake him up this morning and he was lethargic and unresponsive. Adriel commonly presents to the ED with hypotension and is successfully stabilized with IV fluids. Today he was treated with IV fluid bolus x 2 and midodrine with no success then added Levophed. Adriel is unresponsive, intermittently turns his head towards voice. Patient's family discussed DNR/DNI status, confirmed that he does not want to be intubated and wants to be a DNR. ABG pH 7.24, pCO2 70.4, PaO2 89.1, HCO3 29, BiPAP was started. Laboratory evaluation significant for INR 14, PT 148.3, APTT 100.5, BUN/creatinine 17/5.2, GFR 11, AST 92, ALT 66, potassium 3.4. Head CT reports "No evidence of acute intracranial abnormality." Chest x-ray reports "Mild CHF versus volume overload" Adriel will be admitted to hospitalist service for further evaluation and treatment of hypovolemic versus cardiogenic shock with respiratory acidosis associated with hypercarbia. Allergies amlodipine besylate [From Norvasc] Allergy (Verified 01/25/22 13:59) Anaphylaxis, lower leg swelling amoxicillin [From Augmentin] Allergy (Verified 01/25/22 13:59) Nausea/Vomiting/Diarrhea clavulanic acid [From Augmentin] Allergy (Verified 01/25/22 13:59) Nausea/Vomiting/Diarrhea Home Medications: Cinacalcet HCl [Sensipar*] 1 tab PO BEDTIME 02/23/14 Docusate [Colace Cap*] 1 tab PO BID 09/02/13 Omeprazole [Prilosec] 40 mg PO DAILY 09/02/13 allopurinoL [Zyloprim*] 100 mg PO BEDTIME 09/02/13 Albuterol Sulfate [Proair Hfa] 2 puff IH Q6HP PRN 01/25/22 L. Acidophilus/Bifido. Longum [Probiotic Pearls Acidophilus] 1 each PO BID 01/25/22 Mesalamine [Pentasa*] 4 cap PO BID 01/25/22 Multivitamin [One-Daily Multi-Vitamin] 1 each PO DAILY 01/25/22 Simvastatin 20 mg PO BEDTIME 01/25/22 Tramadol HCl [Ultram] 50 mg PO Q6H 01/25/22 Gabapentin 300 mg PO DAILY #30 cap 08/04/22 Hydrocortisone [Cortef*] 20 mg PO BID #120 tab 08/04/22 Metoprolol Tartrate [Lopressor*] 50 mg PO BID #60 tab 08/04/22 Midodrine HCl [Proamatine*] 5 mg PO TID #90 tab 08/04/22 Atorvastatin Calcium [Lipitor*] 10 mg PO BEDTIME 30 Days #30 tab 11/06/23 Fludrocortisone [Florinef *] 0.1 mg PO DAILY 30 Days #30 tab 11/06/23 - Past Medical/Surgical History Diabetic: No -: Diverticulitis -: HTN -: Gout -: ESRD -: HD on tue, tue, tue -: Asbestosis -: Obstructive sleep apnea with CPAP at night -: Adrenal insufficiency -: Cardiac catheterization -: Appendectomy -: Cholecystectomy -: Left knee arthroscopy Psychosocial/ Personal History: Patient is . States he lives at home and she takes care of him. He states he is bed-bound - Social History Smoking Status: Unknown if ever smoked Alcohol use: No CD- Drugs: No Caffeine use: Yes Review of Systems is unable to be obtained Physical Examination - Physical Exam General: Unresponsive HEENT: Atraumatic, Normocephalic Neck: Supple, 2+ carotid pulse no bruit Respiratory: Clear to auscultation bilaterally, Normal air movement Cardiovascular: Normal pulses, Regular rate/rhythm, Normal S1 S2 Capillary refill: <2 Seconds Gastrointestinal: Normal bowel sounds, Soft and benign Musculoskeletal: No clubbing Integumentary: No rashes Neurological: Other (Unresponsive) - Studies Laboratory Data (last 24 hrs) 07/19/24 07/19/24 07/19/24 12:50 12:50 12:50 WBC 10.60 Hgb 10.3 L Hct 32.9 L Plt Count 178 PT 148.3 H INR 14.31 H* APTT 100.5 H Sodium 137 Potassium 3.4 L BUN 17 Creatinine 5.20 H Glucose 105 Total Bilirubin 0.7 AST 92 H ALT 66 H Alkaline Phosphatase 106 Microbiology Data (last 24 hrs): 07/19/24 11:43 Nasopharnyx Influenza Type A Antigen Screen - Final 07/19/24 11:43 Nasopharnyx Influenza Type B Antigen Screen - Final Assessment and Plan - Plan Assessment and Plan Hypovolemic vs cardiogenic shock Acute hypoxic and hypercarbic respiratory failure Encephalopathy secondary to hypercarbia and respiratory acidosis -ABG pH 7.24, pCO2 70.4, PaO2 89.1, HCO3 29 -Serial troponins pending -TSH/free T4 0.357/1.79 -COVID/flu-negative -100 mEq bicarb IV -BiPAP -DNR/DNI -Follow blood cultures, empiric antibiotics -Abdominal ultrasound pending -Continue Levophed drip Coagulopathy -INR 14, PT 148.3, APTT 100.5 -2 units FFP and 10 mg vitamin K -Repeat INR 2 hours after FFP ESRD -BUN/creatinine 17/5.2, GFR 11 -Reported dialysis 07/18/2024 -Consult Dr. Franklin DVT PPx SCDs due to elevated INR DNR/DNI LOS 2 to 3 days Prognosis guarded Discharge Plan: Home Plan to discharge in: 72 Hours - Advance Directives Does patient have a Living Will: No Does patient have a Durable POA for Healthcare: Yes
[2024-07-19] MEDS: PROTHROMBIN COMPLEX CONCENTRATE (HUMAN) 500 UNIT VIAL IV ONE ×2 (15:21→15:33)
[2024-07-19 15:30] LABS: Arterial Blood Carboxyhemoglob 1.8 % (0-1.5); Blood Gas Oxyhemoglobin 91.9 % (94-97); Blood Gas THB 10.6 g/dl (12-18); Blood O2 Saturation 95.3 % (92-98.5)
[2024-07-19] MEDS ORDERED: NA CHLORIDE 0.9% 250 ML IV SCH (16:00)
[2024-07-19] MEDS: WATER FOR INJ,STERILE 10 ML IV ONE (16:00)
[2024-07-19] MEDS: HYDROCORTISONE SUC 100 MG INJ IV ONE (16:00)
--- NOTE | 2024-07-19 17:03 | RAD REPORT ---
EXAM: CT brain without contrast HISTORY: AMS, INR 15 COMPARISON: 11/04/2023 TECHNIQUE: Multiple contiguous axial images were obtained and a CT of the brain without contrast. Sag ittal and coronal reformats were performed. One or more of the following dose reduction techniques were used: Automated exposure control, adjust ment of the mA and/or kV according to patient size, and/or iterative reconstruction. FINDINGS: No evidence of hydrocephalus, intracranial hemorrhage, or extra-axial fluid collection. Mild brain atrophy with mild periventricular and deep white matter chronic microvascular ischemic ch anges present. Small remote lacunar infarct on the right. No evidence of midline shift or areas of brain edema. The calvarium is intact. The visualized paranasal sinuses and mastoid air cells are essentially clear . IMPRESSION: No evidence of acute intracranial abnormality.
[2024-07-19 17:12] LABS: Thyroid Stimulating Hormone 0.357 uIU/mL (0.358-3.740)
[2024-07-19] MEDS: VITAMIN K (ADULT) 10 MG/ML ONE (18:18)
[2024-07-19] MEDS: SODIUM BICARB 50 MEQ/50ML VIAL ONE (18:18)
[2024-07-19] MEDS: VITAMIN K (ADULT) 10 MG/ML IVP ONE (18:31)
[2024-07-19] MEDS: CEFEPIME 1 GM in NA CHLORIDE 0.9% 100 ML IV SCH (18:31)
--- NOTE | 2024-07-19 18:44 | P.PN ---
Date of Service: 07/19/24 Patient seen and examined with Perry Mustapha. Patient initially noted to have agonal breathing and oxygen by nasal cannula, Minimally responsive, opens eyes to verbal. Patient reported to have been hypotensive after IV NS bolus and currently on Levophed drip via peripheral line. Patient underwent dialysis yesterday. Patient noted to be coagulopathic with INR up to 14. Case discussed with his ceramics engineer Dr. Franklin who reviewed patient's chart and confirmed patient has been taking Coumadin for his history of A-fib and pulmonary embolus. CT head shows no intracranial bleed, no acute CVA. BUN 17. Arterial blood gas shows pH of 7.2 and pCO2 of 70 Hypotension and altered mental status probably secondary to respiratory acidosis and CO2 retention. Patient placed on BiPAP and given 100 meq bicarb IV. Patient also given 2 units of FFP and 10 mg of vitamin K. Repeat INR 2 hours after FFP. Empiric IV antibiotics Neurochecks ICU admission Nephrology consult. Patient has a history of hemorrhagic cyst found elevated INR. CT chest abdomen and pelvis ordered but canceled the CT scanner could not tolerate the patient's weight. Abdominal ultrasound ordered to evaluate for bleeding for now given hypotension. Continue Levophed drip. I had a discussion with patient's . Patient confirmed the patient is do not resuscitate and DO NOT INTUBATE. Dr. Franklin confirmed DNR status after reviewing patient hemodialysis chart.
[2024-07-19] MEDS: NOREPINEPHRINE 4 MG in D5W 250 ML IV SCH (18:50)
[2024-07-19 20:03] LABS: Differential Total Cells Count 100; Lymphocytes 8 % (15-42); Monocytes 6 % (0-10); Platelet Estimate ADEQ; Segmented Neutrophils 86 % (40-80)
[2024-07-19 20:04] LABS: Anisocytosis 1+; Blood Morphology Comment NOTED (NOT SEEN); Platelets, Giant PRESENT
--- NOTE | 2024-07-19 20:40 | P.CNS ---
Date of Consult: 07/19/24 Reason for Consult: ESRD Requesting Physician: dorcas fox Chief Complaint: Hypovolemic vs cardiogenic shock History of Present Illness: Adriel Raya is a 69 year old with Pmhx ESRD with HD MWF, Diverticulitis, Hypertension, adrenal insufficiency, hemorrhagic renal cysts, diabetes mellitus, Kidney disease, Atrial fibrillation on coumadin, PE who presents to the ED with altered mental status, unable to wake up. Family at the bedside reports Adriel had dialysis yesterday returning home between 2 and 2:30 with normal mental condition. They tried to wake him up this morning and he was lethargic and unresponsive. Adriel commonly presents to the ED with hypotension and is successfully stabilized with IV fluids. Today he was treated with IV fluid bolus x 2 and midodrine with no success then added Levophed. Adriel is unresponsive, intermittently turns his head towards voice. Patient's family discussed DNR/DNI status, confirmed that he does not want to be intubated and wants to be a DNR. ABG pH 7.24, pCO2 70.4, PaO2 89.1, HCO3 29, BiPAP was started. Laboratory evaluation significant for INR 14, PT 148.3, APTT 100.5, BUN/creatinine 17/5.2, GFR 11, AST 92, ALT 66, potassium 3.4. Head CT reports "No evidence of acute intracranial abnormality." Chest x-ray reports "Mild CHF versus volume overload" Adriel will be admitted to hospitalist service for further evaluation and treatment of hypovolemic versus cardiogenic shock with respiratory acidosis associated with hypercarbia. 14:02 This 69 yrs old Black Male presents to ER via EMS with complaints of General Weakness, rn Blood Pressure Problem. 14:02 EMS reports patient picked up from home for decreased responsiveness and altered mental rn status. Blood pressures in the 70s systolic. Tried a 250 cc bolus as that is what usually helps this patient with known orthostatic hypotension. 250 cc fluid did not show response so they started Levophed at low-dose. Patient had improved mental status and blood pressure up to 100/75. Patient denies recent illness. No fever. No chest pain. No shortness of breath or abdominal pain. No vomiting or diarrhea. Family states no new medication. Last dialysis was yesterday.. Severity of symptoms: At their worst the symptoms were moderate in the emergency department the symptoms have improved. The patient has experienced similar episodes in the past. Allergies amlodipine besylate [From Norvasc] Allergy (Verified 01/25/22 13:59) Anaphylaxis, lower leg swelling amoxicillin [From Augmentin] Allergy (Verified 01/25/22 13:59) Nausea/Vomiting/Diarrhea clavulanic acid [From Augmentin] Allergy (Verified 01/25/22 13:59) Nausea/Vomiting/Diarrhea Home medications list reviewed: Yes Home Medications: Cinacalcet HCl [Sensipar*] 1 tab PO BEDTIME 09/02/13 Docusate [Colace Cap*] 1 tab PO BID 09/02/13 Omeprazole [Prilosec] 40 mg PO DAILY 09/02/13 allopurinoL [Zyloprim*] 100 mg PO BEDTIME 09/02/13 Albuterol Sulfate [Proair Hfa] 2 puff IH Q6HP PRN 01/25/22 L. Acidophilus/Bifido. Longum [Probiotic Pearls Acidophilus] 1 each PO BID 01/25/22 Mesalamine [Pentasa*] 4 cap PO BID 01/25/22 Multivitamin [One-Daily Multi-Vitamin] 1 each PO DAILY 01/25/22 Simvastatin 20 mg PO BEDTIME 01/25/22 Tramadol HCl [Ultram] 50 mg PO Q6H 01/25/22 Gabapentin 300 mg PO DAILY #30 cap 08/04/22 Hydrocortisone [Cortef*] 20 mg PO BID #120 tab 08/04/22 Metoprolol Tartrate [Lopressor*] 50 mg PO BID #60 tab 08/04/22 Midodrine HCl [Proamatine*] 5 mg PO TID #90 tab 08/04/22 Atorvastatin Calcium [Lipitor*] 10 mg PO BEDTIME 30 Days #30 tab 11/06/23 Fludrocortisone [Florinef *] 0.1 mg PO DAILY 30 Days #30 tab 11/06/23 - Past Medical/Surgical History Diabetic: No -: Diverticulitis -: HTN -: Gout -: ESRD on HD MWF (Dr. Franklin/ [facility]) -: Secondary HyperPTH -: Asbestosis -: Obstructive sleep apnea with CPAP at night -: Adrenal insufficiency -: Cardiac catheterization -: Appendectomy -: Cholecystectomy -: Left knee arthroscopy Psychosocial/ Personal History: Patient is . States he lives at home and she takes care of him. He states he is bed-bound - Social History Smoking Status: Unknown if ever smoked Alcohol use: No CD- Drugs: No Caffeine use: Yes Review of Systems is unable to be obtained Respiratory: Shortness of Breath Physical Examination Temp Pulse Resp BP Pulse Ox 99.5 F 69 16 127/42 L 96 07/19/24 11:32 07/19/24 18:34 07/19/24 17:22 07/19/24 17:22 07/19/24 18:34 General: Acute distress, Unresponsive HEENT: Atraumatic Neck: Supple Respiratory: Diminished Cardiovascular: No edema, Irregular heart rate/rhythm Gastrointestinal: Soft and benign, No guarding Musculoskeletal: No clubbing, No contractures Integumentary: No rashes, No cyanosis Laboratory Data (last 24 hrs) 07/19/24 07/19/24 07/19/24 12:50 12:50 12:50 WBC 10.60 Hgb 10.3 L Hct 32.9 L Plt Count 178 PT 148.3 H INR 14.31 H* APTT 100.5 H Sodium 137 Potassium 3.4 L BUN 17 Creatinine 5.20 H Glucose 105 Total Bilirubin 0.7 AST 92 H ALT 66 H Alkaline Phosphatase 106 Imagings Data: EXAM: CT brain without contrast HISTORY: AMS, INR 15 COMPARISON: 11/04/2023 TECHNIQUE: Multiple contiguous axial images were obtained and a CT of the brain without contrast. Sagittal and coronal reformats were performed. One or more of the following dose reduction techniques were used: Automated exposure control, adjustment of the mA and/or kV according to patient size, and/or iterative reconstruction. FINDINGS: No evidence of hydrocephalus, intracranial hemorrhage, or extra-axial fluid collection. Mild brain atrophy with mild periventricular and deep white matter chronic microvascular ischemic changes present. Small remote lacunar infarct on the right. No evidence of midline shift or areas of brain edema. The calvarium is intact. The visualized paranasal sinuses and mastoid air cells are essentially clear. IMPRESSION: No evidence of acute intracranial abnormality. EXAMINATION: ONE VIEW CHEST XR CLINICAL INDICATION: hypotension TECHNIQUE: Frontal chest projection is submitted. Examination is limited by patient positioning and technique. COMPARISON: 05/17/2024 FINDINGS: Mild interstitial pulmonary edema. The heart is moderately enlarged. No displaced fractures identified. IMPRESSION: Mild CHF versus volume overload. Conclusions/Impression: ESRD on HD -Acute HD as needed Hypokalemia -Replete prn Hypotension -Continue Levophed -Hydrocortisone as ordered Diastolic CHF, chronic -UF with HD Acute Respiratory Failure with Hypercapnia -Bipap as ordered Adrenal Insufficiency -Hydrocortisone 50mg IV q6h Hypoalbuminemia -Tube feeding prn Anemia in chronic illness -Retacrit prn Coagulopathy -Hold Coumadin -Vitamin K as ordered Toxic Metabolic Encephalopathy -Continue supportive care Case reviewed with Dr. Fox Thank you kindly for the consultation Patient care 45min Critical Care: Yes
[2024-07-19] MEDS: Mupirocin NASAL 2 APPL/1 GM TUBE NAS SCH (22:15)
[2024-07-19] MEDS: HYDROCORTISONE SUC 100 MG INJ IV SCH (22:15)
[2024-07-20] MEDS: NOREPINEPHRINE BITARTRATE/D5W 4 MG/250 ML KIT IV ONE ×2 (00:57→05:53)
--- NOTE | 2024-07-20 05:50 | P.PN ---
patient noted to have high INR, FFP and vitamin K ordered staff reporting access issues and difficulty with drawing labs Midline ordered. labs to be checked in AM inspecting supervisor assisting with trying to get midline overnight
--- NOTE | 2024-07-20 08:40 | RAD REPORT ---
EXAMINATION: US RENAL ULTRASOUND CLINICAL INDICATION: High INR TECHNIQUE: Real-time ultrasonography of the abdomen was performed. COMPARISON: 02/13/2021 FINDINGS: Due to patient body habitus, the study is extremely limited. Right kidney demonstrates multiple calci fied and noncalcified sinuses compatible with a polycystic kidney. The kidney measures 10.8 x 6.4 cm. No hydronephrosis. Left kidney not well seen. Spleen appears normal in size.
[2024-07-20 09:15] LABS: Absolute Lymphocytes (CBC) 0.2 K/uL (0.7-4.9); Absolute Neutrophil 14.2 K/uL (1.8-8.0); Basophils % 0.2 % (0-1.3); Eosinophils % 0.1 % (0-4.4); Hematocrit 33.8 % (39.6-49.0); Hemoglobin 10.3 g/dL (13.6-17.9); Lymphocytes % 1.3 % (15.3-44.8); MCH 26.4 pg (27.0-35.0); MCHC 30.4 g/dL (32.0-36.0); MCV 86.9 fL (80-100); MPV 9.1 fL (7.6-11.3); Monocytes % 6.6 % (3.3-12.3); Neutrophils % 91.8 % (41.7-73.7); Nucleated Red Blood Cells % 0.1 % (0-0); Platelets 270 thou/uL (152-406); RBC Red Blood Cell Count 3.89 M/uL (4.33-5.43); Red Cell Distribution Width 22.4 % (12.1-15.2)
[2024-07-20 09:17] LABS: PT Prothrombin Time 15.7 SECONDS (9.4-12.5); Protime INR 1.42
[2024-07-20 09:40] LABS: Albumin 2.3 g/dL (3.4-5.0); Albumin/Globulin Ratio 0.6 (1.1-1.8); Anion Gap 10.7 mEq/L (5.0-15.0); Bilirubin Direct 0.4 mg/dL (0-0.2); Bilirubin Indirect, Calculated 0.3 mg/dL (0.2-0.8); Bilirubin Total 0.7 mg/dL (0.2-1.0); Globulin 3.9 g/dL (2.3-3.5); Phosphorus 4.8 mg/dL (2.5-4.9); Potassium 3.7 mEq/L (3.5-5.1); Protein, Total 6.2 g/dL (6.4-8.2)
[2024-07-20 09:41] LABS: Troponin High Sensitivity 552.1 pg/mL (<58.9)
[2024-07-20 09:50] LABS: Arterial Blood Carboxyhemoglob 0.9 % (0-1.5); Blood Gas Oxyhemoglobin 96.4 % (94-97); Blood O2 Saturation 98.5 % (92-98.5)
--- NOTE | 2024-07-20 11:40 | P.PN ---
Nephrology note: (S) Pt remains in the ICU, on Levophed pressor support, ABG still showing hypercarbia, on NIPPV, lethargic but awakens easily. SBP < 100 on the monitor, BP cuff on the Rt lower vazquez (O) Vitals reviewed in the EMR General: In no apparent distress, Other (Lethargic, chronically ill appearing) HEENT: Atraumatic, Normocephalic, Mucous membr. 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 Will attempt HD tmrw, orders placed. Chronic hypotension, intra dialytic/other, labile BP -Chronically on Midodrine. Difficult to capture BP, place art line monitor if possible. Cont levophed for now, wean as tolerated. Acute hypercarbic resp failure -Prior hx of similar episodes in the past in the setting of AMS, other. Cont NIPPV and further management per Pulm Diastolic CHF, chronic. Hx of Afib unspecified -Mild interstitial pulm edema reported on CXR, monitor closely and will target cautious UF when hemodynamically stable Hypotension, unspecified. Leukocytosis, unspecified. -F/u peripheral BCx, pt with recent lt fistula surgery with area of wound dehiscence, drainage, has been on Vanc as OP. Check random level. Agree with addition of gram neg coverage Questionable hx of adrenal insufficiency unspecified, cont stress dose steroids for now Acute encephalopathy, possibly multifactorial -Prior episodes, limit use of SPRAY WORKER acting agents Anmol Perrin MD, TANA
[2024-07-20 14:28] LABS: HBsAG Nonreactive Report Report; Hepatitis B surface AG Interp. Nonreactive (Nonreactive)
[2024-07-20 14:48] LABS: Arterial Blood Carboxyhemoglob 1.1 % (0-1.5); Blood Gas Oxyhemoglobin 95.7 % (94-97); Blood O2 Saturation 97.8 % (92-98.5)
--- NOTE | 2024-07-20 15:58 | P.PN ---
Subjective Date of Service: 07/20/24 Chief Complaint: Hypovolemic vs cardiogenic shock Patient appears to be more awake today, he opens his eyes to and verbalizes one- word. Blood pressure has improved Levophed drip currently off. No recorded fever. Patient wore BiPAP all night and placed on oxygen by nasal cannula this morning. Physical Examination - Vital Signs Temperature: 96.9 F Blood Pressure: 108/61 Pulse: 75 Respirations: 12 Pulse Ox (%): 98 - Studies Laboratory Data (last 24 hrs) 07/19/24 12:50 WBC 10.60 Hgb 10.3 L Hct 32.9 L Plt Count 178 Microbiology Data (last 24 hrs): 07/19/24 11:43 Nasopharnyx Influenza Type A Antigen Screen - Final 07/19/24 11:43 Nasopharnyx Influenza Type B Antigen Screen - Final Assessment And Plan - Plan Physical Exam General: Morbidly obese, somnolent HEENT: Atraumatic, Normocephalic, oxygen by nasal cannula. Neck: Supple, no elevated JVD. Respiratory: Diffuse diminished breath sounds, no crackles. Permanent dialysis catheter left anterior chest pain. Cardiovascular: Regular rate/rhythm, Normal S1 S2 Gastrointestinal: Obese abdomen, Soft and benign, no tenderness Musculoskeletal: No clubbing Integumentary: No rashes, Neurological: Somnolent, easily arousable, no agitation, patient moves all extremities. Assessment and plan: Acute hypoxic and hypercarbic respiratory failure Encephalopathy secondary to hypercarbia and respiratory acidosis Mental status is improving slowly Patient still hypercapnic though level was improved. Pulmonary consult. BiPAP as needed Titrate oxygen to SpO2 of 88 to 92% to preserve hypoxic drive. Spouse made patient DNI. TSH/free T4 0.357/1.79 Empiric antibiotics Neurochecks Hypovolemic shock Hypotension Adrenal insufficiency Patient admitted history of chronic hypertension suspected abdominal insufficiency. Patient briefly on Levophed drip. Levophed drip discontinued. Will start midodrine once patient can tolerate p.o. IV hydrocortisone for adrenal insufficiency. Coagulopathy Raised INR History of PE Patient is on Coumadin for history of pulm embolism Prior hemorrhagic cyst secondary to coagulopathy during previous admission. INR quickly reversed with vitamin K. Renal ultrasound result reviewed and no hemorrhage identified though study was limited given patient body habitus. ESRD Dr. Franklin consulted Routine hemodialysis per nephrology. DVT PPx: SCDs. Advanced directive: DNR/DNI
--- NOTE | 2024-07-20 20:53 | P.CNS ---
Date of Consult: 07/20/24 Reason for Consult: Respiratory failure Chief Complaint: Hypovolemic vs cardiogenic shock History of Present Illness: Patient is 69 years of age currently on BiPAP unresponsive multiple medical problems including end-stage renal disease adrenal insufficiency diabetes or fibrillation was found unresponsive hypotensive is currently DNR and was transferred to the ICU is currently on continuous BiPAP patient was also hypercapnic has a history of sleep apnea PT/INR also very elevated chest x-ray negative consistent with end-stage renal disease Allergies amlodipine besylate [From Norvasc] Allergy (Verified 01/25/22 13:59) Anaphylaxis, lower leg swelling amoxicillin [From Augmentin] Allergy (Verified 01/25/22 13:59) Nausea/Vomiting/Diarrhea clavulanic acid [From Augmentin] Allergy (Verified 01/25/22 13:59) Nausea/Vomiting/Diarrhea Home Medications: Cinacalcet HCl [Sensipar*] 1 tab PO BEDTIME 09/02/13 Docusate [Colace Cap*] 1 tab PO BID 09/02/13 Omeprazole [Prilosec] 40 mg PO DAILY 09/02/13 allopurinoL [Zyloprim*] 100 mg PO BEDTIME 09/02/13 Albuterol Sulfate [Proair Hfa] 2 puff IH Q6HP PRN 01/25/22 L. Acidophilus/Bifido. Longum [Probiotic Pearls Acidophilus] 1 each PO BID 01/25/22 Mesalamine [Pentasa*] 4 cap PO BID 01/25/22 Multivitamin [One-Daily Multi-Vitamin] 1 each PO DAILY 01/25/22 Simvastatin 20 mg PO BEDTIME 01/25/22 Tramadol HCl [Ultram] 50 mg PO Q6H 01/25/22 Gabapentin 300 mg PO DAILY #30 cap 08/04/22 Hydrocortisone [Cortef*] 20 mg PO BID #120 tab 08/04/22 Metoprolol Tartrate [Lopressor*] 50 mg PO BID #60 tab 08/04/22 Midodrine HCl [Proamatine*] 5 mg PO TID #90 tab 08/04/22 Atorvastatin Calcium [Lipitor*] 10 mg PO BEDTIME 30 Days #30 tab 11/06/23 Fludrocortisone [Florinef *] 0.1 mg PO DAILY 30 Days #30 tab 11/06/23 - Past Medical/Surgical History Diabetic: No -: Diverticulitis -: HTN -: Gout -: ESRD on HD MWF (Dr. Franklin/ [facility]) -: Secondary HyperPTH -: Asbestosis -: Obstructive sleep apnea with CPAP at night -: Adrenal insufficiency -: Cardiac catheterization -: Appendectomy -: Cholecystectomy -: Left knee arthroscopy Psychosocial/ Personal History: Patient is . States he lives at home and she takes care of him. He states he is bed-bound - Social History Smoking Status: Unknown if ever smoked Alcohol use: No CD- Drugs: No Caffeine use: Yes Place of Residence: Home Review of Systems is unable to be obtained Physical Examination Temp Pulse Resp BP Pulse Ox 96.9 F 84 18 130/67 95 07/20/24 16:13 07/20/24 18:00 07/20/24 18:00 07/20/24 18:00 07/20/24 18:00 General: Unresponsive Neck: Supple Respiratory: Clear to auscultation bilaterally Gastrointestinal: Normal bowel sounds, Non-distended Musculoskeletal: No clubbing, No swelling Integumentary: No rashes, No breakdown, No significant lesion - Problems (1) Hypercapnic respiratory failure Current Visit: Yes Status: Acute Plan: Patient is 69 years of age end-stage renal disease multiple medical problems including adrenal insufficiency. With hypotension hypercarbic respiratory failure chest x-ray is clear apart from mild cardiomegaly labs consistent with end-stage renal disease is patient's INR was significantly elevated so far blood cultures are negative patient's troponins are also significantly elevated patient is tolerating BiPAP pressure satisfactory Levophed weaned off blood cultures negative patient is currently on hydrocortisone ordered an echocardiogram CT of the head was negative history of sleep apnea also thyroid function is normal. Patient continues to remain hypercapnic had some bronchodilators Qualifiers: Chronicity: unspecified Qualified Code(s): J96.92 - Respiratory failure, unspecified with hypercapnia
[2024-07-20] MEDS: ARFORMOTEROL TARTRATE 15 MCG/2 ML VIAL.NEB NEB SCH (21:23)
[2024-07-21 05:14] LABS: PT Prothrombin Time 13.5 SECONDS (9.4-12.5); Protime INR 1.21
[2024-07-21 05:42] LABS: Absolute Lymphocytes (CBC) 0.2 K/uL (0.7-4.9); Absolute Monocytes 0.5 K/uL (0.1-1.3); Absolute Neutrophil 5.1 K/uL (1.8-8.0); Basophils % 0.8 % (0-1.3); Eosinophils % 0.6 % (0-4.4); Hematocrit 30.7 % (39.6-49.0); Hemoglobin 9.6 g/dL (13.6-17.9); Lymphocytes % 2.8 % (15.3-44.8); MCH 26.6 pg (27.0-35.0); MCHC 31.4 g/dL (32.0-36.0); MCV 84.9 fL (80-100); MPV 9.6 fL (7.6-11.3); Monocytes % 9.2 % (3.3-12.3); Neutrophils % 86.6 % (41.7-73.7); Nucleated Red Blood Cells % 0.1 % (0-0); Platelets 207 thou/uL (152-406); RBC Red Blood Cell Count 3.62 M/uL (4.33-5.43); Red Cell Distribution Width 22.2 % (12.1-15.2)
[2024-07-21 06:39] LABS: Anion Gap 12.9 mEq/L (5.0-15.0); Potassium 3.9 mEq/L (3.5-5.1)
[2024-07-21] MEDS: KCL 20 MEQ/100 mL IVPB 20 MEQ/100 ML BAG IV SCH (08:06)
--- NOTE | 2024-07-21 09:01 | RAD REPORT ---
EXAMINATION: ONE VIEW CHEST XR CLINICAL INDICATION: Male, 69 years old.,Acute Respiratory Failure. CHF TECHNIQUE: Frontal chest projection is submitted. Examination is limited by patient positioning and t echnique. COMPARISON: 07/19/2024 FINDINGS: Left IJ dialysis catheter unchanged in position. The lungs are hypoinflated but clear. Less pronounce d central interstitial prominence. No pneumothorax or sizable effusion. The heart is again enlarged. Mediastinal contours are unremarkable. IMPRESSION: Stable cardiomegaly. Less pronounced central interstitial prominence. No other focal airspace opaciti es.
[2024-07-21] MEDS: ALBUMIN HUMAN 25% 100 ML IV ONE (11:10)
[2024-07-21] MEDS: ALBUMIN HUMAN 25% 50 ML IV ONE (11:37)
--- NOTE | 2024-07-21 14:34 | P.PN ---
Subjective Date of Service: 07/21/24 Chief Complaint: Hypovolemic vs cardiogenic shock Patient is more awake today compared to yesterday and onto room questions appropriately though with few words. No issues overnight. Blood pressure has been stable No recorded fever. Physical Examination - Vital Signs Temperature: 96.1 F Blood Pressure: 102/75 Pulse: 94 Respirations: 19 Pulse Ox (%): 95 Assessment And Plan - Plan Physical Exam General: Morbidly obese, awake and interactive HEENT: Atraumatic, Normocephalic, oxygen by nasal cannula. Neck: Supple, no elevated JVD. Respiratory: Diffuse diminished breath sounds, no crackles. Permanent dialysis catheter left anterior chest pain. Cardiovascular: Regular rate/rhythm, Normal S1 S2 Gastrointestinal: Obese abdomen, Soft and benign, no tenderness Musculoskeletal: No clubbing Integumentary: No rashes, Neurological: Awake and interactive, no agitation, patient moves all extremities. Assessment and plan: Acute hypoxic and hypercarbic respiratory failure Encephalopathy secondary to hypercarbia and respiratory acidosis Mental status significantly improved Pulmonary input appreciated BiPAP as needed Titrate oxygen to SpO2 of 88 to 92% to preserve hypoxic drive. Spouse made patient DNI. TSH/free T4 0.357/1.79 Continue empiric antibiotics Neurochecks Hypovolemic shock Hypotension Adrenal insufficiency Patient admitted history of chronic hypertension suspected abdominal insufficiency. Patient briefly on Levophed drip. Levophed drip discontinued. Blood pressure has been stable on midodrine Continue midodrine. Patient is on IV hydrocortisone for adrenal insufficiency. Coagulopathy Raised INR History of PE Patient is on Coumadin for history of pulm embolism Prior hemorrhagic cyst secondary to coagulopathy during previous admission. INR quickly reversed with vitamin K. Renal ultrasound result reviewed and no hemorrhage identified though study was limited given patient body habitus. Resume Coumadin at a lower dose once home dose is confirmed. ESRD Dr. Franklin input appreciated. Routine hemodialysis per nephrology. DVT PPx: SCD Advanced directive: DNR/DNI
[2024-07-21] MEDS: WATER FOR INJ,STERILE 10 ML ONE (20:23)
--- NOTE | 2024-07-21 21:28 | P.PN ---
Date of Service: 07/21/24 Vital Signs Temp Pulse Resp BP Pulse Ox 97.6 F 86 18 124/66 94 07/21/24 20:00 07/21/24 20:00 07/21/24 20:00 07/21/24 20:00 07/21/24 20:00 Medications Acetaminophen (Acetaminophen 650mg/Rect Supp) 650 mg WA Q6HP PRN PRN Reason: Temp > 100 F or mild pain Arformoterol Tartrate (Arformoterol Tartrate 15 Mcg/2 Ml Vial.Neb) 15 mcg NEB BIDRESP AYO Last Admin: 07/21/24 21:12 Dose: 15 mcg Heparin Sodium (Porcine) (Heparin 1,000 Unit/Ml Vial) 6,000 unit IV EVERY HD PRN PRN Reason: FOR DIALYSIS CATHETER CARE Last Admin: 07/21/24 14:36 Dose: 6,000 unit Heparin Sodium (Porcine) (Heparin 1,000 Unit/Ml Vial) 2,000 unit IV EVERY HD PRN PRN Reason: Prevent HD System Clotting Last Admin: 07/21/24 12:00 Dose: 2,000 unit Hydrocortisone Sodium Succinate (Hydrocortisone Suc 100 Mg Inj) 50 mg IV Q6H AYO Last Admin: 07/21/24 20:22 Dose: 50 mg Norepinephrine Bitartrate 4 mg (/ Dextrose) 254 mls @ 54.483 mls/hr IV TITR [facility]; Protocol Last Titration: 07/20/24 13:00 Dose: 0 mcg/kg/min, 0 mls/hr Cefepime HCl 1 gm/ Sodium (Chloride) 100 mls @ 200 mls/hr IV DAILY [facility]; Protocol Last Admin: 07/21/24 08:07 Dose: 100 mls Sodium Chloride (Sodium Chloride) 250 mls @ 0 mls/hr IV .Q0M [facility] Mupirocin (Mupirocin Nasal 2 Appl/1 Gm Tube) 1 appl HENRY BID AYO Stop: 07/24/24 09:01 Last Admin: 07/21/24 20:21 Dose: 1 appl Microbiology Results 07/19/24 12:50 Blood - Blood Aerobic Blood Culture - Preliminary No growth in 24 hours. 07/19/24 12:50 Blood - Blood Anaerobic Blood Culture - Preliminary No growth in 24 hours. 07/19/24 12:40 Blood - Blood Aerobic Blood Culture - Preliminary No growth in 24 hours. 07/19/24 12:40 Blood - Blood Anaerobic Blood Culture - Preliminary No growth in 24 hours. 07/19/24 11:43 Nasopharnyx Influenza Type A Antigen Screen - Final 07/19/24 11:43 Nasopharnyx Influenza Type B Antigen Screen - Final Assessment/ Plan: Nephrology No dyspnea No chest pain Improving mental status No acute events overnight Vitals, medications, blood work and imaging reviewed in the chart General: Acute distress, Unresponsive HEENT: Atraumatic Neck: Supple Respiratory: Diminished Cardiovascular: No edema, Irregular heart rate/rhythm Gastrointestinal: Soft and benign, No guarding Musculoskeletal: No clubbing, No contractures Integumentary: No rashes, No cyanosis Laboratory Data (last 24 hrs) 07/19/24 07/19/24 07/19/24 12:50 12:50 12:50 WBC 10.60 Hgb 10.3 L Hct 32.9 L Plt Count 178 PT 148.3 H INR 14.31 H* APTT 100.5 H Sodium 137 Potassium 3.4 L BUN 17 Creatinine 5.20 H Glucose 105 Total Bilirubin 0.7 AST 92 H ALT 66 H Alkaline Phosphatase 106 Imagings Data: EXAM: CT brain without contrast HISTORY: AMS, INR 15 COMPARISON: 11/04/2023 TECHNIQUE: Multiple contiguous axial images were obtained and a CT of the brain without contrast. Sagittal and coronal reformats were performed. One or more of the following dose reduction techniques were used: Automated exposure control, adjustment of the mA and/or kV according to patient size, and/or iterative reconstruction. FINDINGS: No evidence of hydrocephalus, intracranial hemorrhage, or extra-axial fluid collection. Mild brain atrophy with mild periventricular and deep white matter chronic microvascular ischemic changes present. Small remote lacunar infarct on the right. No evidence of midline shift or areas of brain edema. The calvarium is intact. The visualized paranasal sinuses and mastoid air cells are essentially clear. IMPRESSION: No evidence of acute intracranial abnormality. EXAMINATION: ONE VIEW CHEST XR CLINICAL INDICATION: hypotension TECHNIQUE: Frontal chest projection is submitted. Examination is limited by patient positioning and technique. COMPARISON: 05/17/2024 FINDINGS: Mild interstitial pulmonary edema. The heart is moderately enlarged. No displaced fractures identified. IMPRESSION: Mild CHF versus volume overload. Conclusions/Impression: ESRD on HD -Acute HD today Hypotension -Continue Levophed prn -Restart Midodrine -Hydrocortisone as ordered Diastolic CHF, chronic -UF with HD Acute Respiratory Failure with Hypercapnia -Bipap prn Adrenal Insufficiency -Hydrocortisone 50mg IV q6h Hypoalbuminemia -Consider Nepro Anemia in chronic illness -Retacrit prn CKD MBD Hypercalcemia -Repeat level Coagulopathy -Resolved -Restart coumadin as indicated Toxic Metabolic Encephalopathy -Continue supportive care Case reviewed with Dr. Lawrence Patient care 35min
[2024-07-22 05:44] LABS: Absolute Lymphocytes (CBC) 0.1 K/uL (0.7-4.9); Absolute Monocytes 0.8 K/uL (0.1-1.3); Absolute Neutrophil 3.5 K/uL (1.8-8.0); Basophils % 0.2 % (0-1.3); Eosinophils % 0.4 % (0-4.4); Hematocrit 28.5 % (39.6-49.0); Lymphocytes % 2.3 % (15.3-44.8); MCH 26.6 pg (27.0-35.0); MCHC 31.6 g/dL (32.0-36.0); MCV 84.2 fL (80-100); MPV 8.9 fL (7.6-11.3); Monocytes % 17.7 % (3.3-12.3); Neutrophils % 79.4 % (41.7-73.7); Nucleated Red Blood Cells % 0.3 % (0-0); Platelets 197 thou/uL (152-406); RBC Red Blood Cell Count 3.38 M/uL (4.33-5.43)
[2024-07-22 06:26] LABS: Anion Gap 9.7 mEq/L (5.0-15.0); Magnesium 2.1 mg/dL (1.6-2.4); Phosphorus 3.3 mg/dL (2.5-4.9); Potassium 3.7 mEq/L (3.5-5.1)
[2024-07-22 07:22] LABS: Band Neutrophils 5 % (0-1); Blood Morphology Comment NOTED (NOT SEEN); Differential Total Cells Count 100; Lymphocytes 3 % (15-42); Monocytes 14 % (0-10); Platelet Estimate ADEQ; Segmented Neutrophils 78 % (40-80)
[2024-07-22 07:23] LABS: Anisocytosis 1+; Stomatocytes 1+; Target Cells 1+
[2024-07-22] MEDS: POTASSIUM CL SA 10 MEQ TAB PO ONE (15:48)
--- NOTE | 2024-07-22 16:08 | P.PN ---
Subjective Date of Service: 07/22/24 Chief Complaint: Hypovolemic vs cardiogenic shock Patient is doing much better today. Patient responded to questions appropriately. Further history suggest patient's BiPAP came off during the night before patient presented to the ED. CO2 retention and acidemia noted on admission likely related to BiPAP noncompliance. Physical Examination - Vital Signs Temperature: 98.3 F Blood Pressure: 112/59 Pulse: 81 Respirations: 18 Pulse Ox (%): 100 Assessment And Plan - Plan Physical Exam General: Morbidly obese, awake and interactive HEENT: Atraumatic, Normocephalic, oxygen by nasal cannula. Neck: Supple, no elevated JVD. Respiratory: Diffuse diminished breath sounds, no crackles. Permanent dialysis catheter left anterior chest pain. Cardiovascular: Regular rate/rhythm, Normal S1 S2 Gastrointestinal: Obese abdomen, Soft and benign, no tenderness Musculoskeletal: No clubbing Integumentary: No rashes, Neurological: Awake and interactive, no agitation, patient moves all extremities. Assessment and plan: Acute hypoxic and hypercarbic respiratory failure Encephalopathy secondary to hypercarbia and respiratory acidosis Altered mental status resolved. CO2 retention improved. Patient is currently at baseline. Pulmonary input appreciated BiPAP during sleep. Titrate oxygen to SpO2 of 88 to 92% to preserve hypoxic drive. Spouse made patient DNI. TSH/free T4 0.357/1.79 Continue empiric antibiotics Neurochecks Hypovolemic shock Hypotension Adrenal insufficiency Patient with history of chronic hypertension suspected related to adrenal insu fficiency. Patient briefly on Levophed drip. Levophed drip discontinued. Blood pressure has been stable on midodrine Continue midodrine. Switch IV hydrocortisone to oral hydrocortisone. Coagulopathy Raised INR History of PE Patient is on Coumadin for history of pulm embolism Prior hemorrhagic cyst secondary to coagulopathy during previous admission. INR quickly reversed with vitamin K. Renal ultrasound result reviewed and no hemorrhage identified though study was limited given patient body habitus. Resume Coumadin at a lower dose. ESRD Nephrology Dr. Franklin is following Routine hemodialysis per nephrology. Possible discharge in a.m. if patient's condition continues to improve. DVT PPx: SCD Advanced directive: DNR/DNI
[2024-07-22] MEDS: WARFARIN SODIUM 2 MG TAB PO SCH (17:00)
[2024-07-22] MEDS: MESALAMINE 500 MG CAPSULE.ER PO SCH (21:17)
[2024-07-22] MEDS: HYDROCORTISONE 10 MG TAB PO ONE (21:17)
[2024-07-22] MEDS: allopurinoL 100 MG TAB PO ONE (21:18)
[2024-07-22 21:44] LABS: PT Prothrombin Time 12.6 SECONDS (9.4-12.5); Protime INR 1.13
[2024-07-22] MEDS: WARFARIN SODIUM 2 MG TAB PO ONE (22:33)
[2024-07-23 05:00] LABS: Absolute Lymphocytes (CBC) 0.2 K/uL (0.7-4.9); Absolute Monocytes 1.3 K/uL (0.1-1.3); Absolute Neutrophil 4.4 K/uL (1.8-8.0); Basophils % 0.2 % (0-1.3); Eosinophils % 0.1 % (0-4.4); Hematocrit 28.7 % (39.6-49.0); Hemoglobin 9.1 g/dL (13.6-17.9); Lymphocytes % 3.6 % (15.3-44.8); MCH 26.7 pg (27.0-35.0); MCHC 31.6 g/dL (32.0-36.0); MCV 84.3 fL (80-100); Monocytes % 22.3 % (3.3-12.3); Neutrophils % 73.8 % (41.7-73.7); Nucleated Red Blood Cells % 0.2 % (0-0); Platelets 201 thou/uL (152-406); RBC Red Blood Cell Count 3.41 M/uL (4.33-5.43); Red Cell Distribution Width 21.7 % (12.1-15.2)
[2024-07-23 05:02] LABS: PT Prothrombin Time 12.8 SECONDS (9.4-12.5); Protime INR 1.14
[2024-07-23 05:31] LABS: Anion Gap 12.1 mEq/L (5.0-15.0); Magnesium 2.1 mg/dL (1.6-2.4); Phosphorus 3.1 mg/dL (2.5-4.9); Potassium 4.1 mEq/L (3.5-5.1)
[2024-07-23] MEDS: FLUDROCORTISONE 0.1 MG TAB PO SCH (09:32)
[2024-07-23] MEDS: HYDROCORTISONE 10 MG TAB PO SCH ×2 (09:33→20:58)
--- NOTE | 2024-07-23 10:56 | EKG ---
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 Machine Operator Helper: SANDIP MEASUREMENT RESULTS: Intervals: Rate: 72 NE: QRSD: 120 QT: 276 QTc: 302 [place]: P: NE: QRS: 143 T: -32 INTERPRETIVE STATEMENTS: Atrial fibrillation Right bundle branch block Anterior infarct, age undetermined T wave abnormality, consider inferior ischemia or digitalis effect Abnormal ECG Compared to ECG 05/17/2024 12:04:07 Right bundle-branch block now present T-wave abnormality now present Possible ischemia now present Left-axis deviation no longer present Myocardial infarct finding still present Electronically Signed On 07-23-24 10:51:39 LOCOMOTIVE ENGINEER by Ron Carballo
--- NOTE | 2024-07-23 17:35 | P.PN ---
Subjective Date of Service: 07/23/24 Chief Complaint: Hypovolemic vs cardiogenic shock Patient is awake and alert and communicating meaningfully. He has no new complaint except generalized weakness. Family reports patient is able to feed himself at baseline but currently need assistance with feeding. Physical Examination - Vital Signs Temperature: 97.5 F Blood Pressure: 120/59 Pulse: 74 Respirations: 20 Pulse Ox (%): 96 Assessment And Plan - Plan Physical Exam General: Morbidly obese, awake and interactive, oriented x 2. Neck: Supple, no elevated JVD. Respiratory: Diffuse diminished breath sounds, no crackles. Cardiovascular: Regular rate/rhythm, Normal S1 S2 Gastrointestinal: Obese abdomen, Soft and benign, no tenderness Musculoskeletal: No clubbing Integumentary: No rashes, Neurological: Awake and interactive, no agitation, patient moves all extremities. Assessment and plan: Acute hypoxic and hypercarbic respiratory failure Encephalopathy secondary to hypercarbia and respiratory acidosis Altered mental status resolved. CO2 retention improved. Patient is currently at baseline and tolerating room air. Pulmonary Dr. Mason is following BiPAP during sleep. TSH/free T4 0.357/1.79 Discontinue antibiotics. Neurochecks Hypovolemic shock Hypotension Adrenal insufficiency Patient with history of chronic hypertension suspected related to adrenal insufficiency. Patient briefly on Levophed drip. Levophed drip discontinued. Blood pressure has been stable on midodrine Continue midodrine. IV hydrocortisone switched to oral hydrocortisone. Coagulopathy Raised INR History of PE Patient is on Coumadin for history of pulm embolism Prior hemorrhagic cyst secondary to coagulopathy during previous admission. INR quickly reversed with vitamin K. Renal ultrasound result reviewed and no hemorrhage identified though study was limited given patient body habitus. Coumadin resumed at a lower dose. Monitor PT/INR daily Pharmacy to dose Coumadin. ESRD Nephrology Dr. Franklin is following Routine hemodialysis per nephrology. Decreased functional status Family report patient is weaker than his baseline. He is able to feed himself but currently has difficulty with it. Occupational Therapy and physical therapy to evaluate. Patient may benefit from skilled rehab. Social service consult to evaluate for SNF. DVT PPx: SCD Advanced directive: DNR/DNI
--- NOTE | 2024-07-23 19:59 | P.PN ---
Date of Service: 07/23/24 Vital Signs Temp Pulse Resp BP Pulse Ox 97.5 F 74 20 120/59 L 96 07/23/24 17:34 07/23/24 17:34 07/23/24 17:34 07/23/24 17:34 07/23/24 17:34 Medications Acetaminophen (Acetaminophen 650mg/Rect Supp) 650 mg MA Q6HP PRN PRN Reason: Temp > 100 F or mild pain Allopurinol (Allopurinol 100 Mg Tab) 100 mg PO BEDTIME [facility] Arformoterol Tartrate (Arformoterol Tartrate 15 Mcg/2 Ml Vial.Neb) 15 mcg NEB BIDRESP [facility] Last Admin: 07/23/24 08:13 Dose: 15 mcg Fludrocortisone Acetate (Fludrocortisone 0.1 Mg Tab) 0.1 mg PO DAILY [facility] Last Admin: 07/23/24 09:32 Dose: 0.1 mg Heparin Sodium (Porcine) (Heparin 1,000 Unit/Ml Vial) 6,000 unit IV EVERY HD PRN PRN Reason: FOR DIALYSIS CATHETER CARE Last Admin: 07/21/24 14:36 Dose: 6,000 unit Heparin Sodium (Porcine) (Heparin 1,000 Unit/Ml Vial) 2,000 unit IV EVERY HD PRN PRN Reason: Prevent HD System Clotting Last Admin: 07/21/24 12:00 Dose: 2,000 unit Hydrocortisone (Hydrocortisone 10 Mg Tab) 20 mg PO BID [facility] Last Admin: 07/23/24 09:33 Dose: 20 mg Norepinephrine Bitartrate 4 mg (/ Dextrose) 254 mls @ 54.483 mls/hr IV TITR [facility]; Protocol Last Titration: 07/20/24 13:00 Dose: 0 mcg/kg/min, 0 mls/hr Cefepime HCl 1 gm/ Sodium (Chloride) 100 mls @ 200 mls/hr IV DAILY [facility]; Protocol Last Admin: 07/23/24 09:32 Dose: 100 mls Sodium Chloride (Sodium Chloride) 250 mls @ 0 mls/hr IV .Q0M [facility] Mesalamine (Mesalamine 500 Mg Capsule.Er) 2,000 mg PO BID [facility] Last Admin: 07/23/24 09:31 Dose: 2,000 mg Mupirocin (Mupirocin Nasal 2 Appl/1 Gm Tube) 1 appl [facility]ENRY BID [facility] Stop: 07/24/24 09:01 Last Admin: 07/23/24 09:32 Dose: 1 appl Warfarin Sodium (Warfarin Sodium 2 Mg Tab) 2 mg PO DAILY 5 PM [facility] Last Admin: 07/23/24 18:34 Dose: 2 mg Microbiology Results 07/19/24 12:50 Blood - Blood Aerobic Blood Culture - Preliminary No growth in 24 hours. 07/19/24 12:50 Blood - Blood Anaerobic Blood Culture - Preliminary No growth in 24 hours. 07/19/24 12:40 Blood - Blood Aerobic Blood Culture - Preliminary No growth in 24 hours. 07/19/24 12:40 Blood - Blood Anaerobic Blood Culture - Preliminary No growth in 24 hours. 07/19/24 11:43 Nasopharnyx Influenza Type A Antigen Screen - Final 07/19/24 11:43 Nasopharnyx Influenza Type B Antigen Screen - Final Assessment/ Plan: Nephrology No dyspnea No chest pain Weakness No acute events overnight Vitals, medications, blood work and imaging reviewed in the chart General: Acute distress, Unresponsive HEENT: Atraumatic Neck: Supple Respiratory: Normal resp effort Cardiovascular: No edema, Irregular heart rate/rhythm Gastrointestinal: Soft and benign, No guarding Musculoskeletal: No clubbing, No contractures Integumentary: No rashes, No cyanosis Laboratory Data (last 24 hrs) 07/19/24 07/19/24 07/19/24 12:50 12:50 12:50 WBC 10.60 Hgb 10.3 L Hct 32.9 L Plt Count 178 PT 148.3 H INR 14.31 H* APTT 100.5 H Sodium 137 Potassium 3.4 L BUN 17 Creatinine 5.20 H Glucose 105 Total Bilirubin 0.7 AST 92 H ALT 66 H Alkaline Phosphatase 106 Imagings Data: EXAM: CT brain without contrast HISTORY: AMS, INR 15 COMPARISON: 11/04/2023 TECHNIQUE: Multiple contiguous axial images were obtained and a CT of the brain without contrast. Sagittal and coronal reformats were performed. One or more of the following dose reduction techniques were used: Automated exposure control, adjustment of the mA and/or kV according to patient size, and/or iterative reconstruction. FINDINGS: No evidence of hydrocephalus, intracranial hemorrhage, or extra-axial fluid collection. Mild brain atrophy with mild periventricular and deep white matter chronic microvascular ischemic changes present. Small remote lacunar infarct on the right. No evidence of midline shift or areas of brain edema. The calvarium is intact. The visualized paranasal sinuses and mastoid air cells are essentially clear. IMPRESSION: No evidence of acute intracranial abnormality. EXAMINATION: ONE VIEW CHEST XR CLINICAL INDICATION: hypotension TECHNIQUE: Frontal chest projection is submitted. Examination is limited by patient positioning and technique. COMPARISON: 05/17/2024 FINDINGS: Mild interstitial pulmonary edema. The heart is moderately enlarged. No displaced fractures identified. IMPRESSION: Mild CHF versus volume overload. Conclusions/Impression: ESRD on HD -Acute HD today Hypotension -Levophed prn -Restart Midodrine as indicated Diastolic CHF, chronic -UF with HD Acute Respiratory Failure with Hypercapnia -Bipap prn Adrenal Insufficiency -Continue Hydrocortisone Hypoalbuminemia -Consider Nepro Anemia in chronic illness -Retacrit prn CKD MBD Hypercalcemia -Send calcium labs Coagulopathy -Resolved -Continue coumadin; monitor INR Case reviewed with Dr. Lawrence
[2024-07-23] MEDS: allopurinoL 100 MG TAB PO SCH (20:58)
[2024-07-24 06:22] LABS: PT Prothrombin Time 16.8 SECONDS (9.4-12.5); Phosphorus 2.1 mg/dL (2.5-4.9); Protime INR 1.61
[2024-07-24 06:23] LABS: Absolute Lymphocytes (CBC) 0.2 K/uL (0.7-4.9); Absolute Monocytes 1.9 K/uL (0.1-1.3); Absolute Neutrophil 5.4 K/uL (1.8-8.0); Basophils % 0.2 % (0-1.3); Eosinophils % 0.2 % (0-4.4); Hematocrit 28.5 % (39.6-49.0); MCH 26.2 pg (27.0-35.0); MCHC 31.5 g/dL (32.0-36.0); MPV 9.3 fL (7.6-11.3); Monocytes % 25.4 % (3.3-12.3); Neutrophils % 71.2 % (41.7-73.7); Nucleated Red Blood Cells % 0.1 % (0-0); Platelets 182 thou/uL (152-406); RBC Red Blood Cell Count 3.43 M/uL (4.33-5.43); Red Cell Distribution Width 21.6 % (12.1-15.2)
--- NOTE | 2024-07-24 13:03 | ECHO ---
HEIGHT: 6 ft 0 in WEIGHT: 315 lb 4.176 oz DATE OF STUDY: 07/24/[address]: Zeke Mason MD 2-DIMENSIONAL: YES M.MODE: YES DOPPLER: YES COLOR FLOW: YES TDS: YES PORTABLE: YES DEFINITY: NO BUBBLE STUDY: NO DIAGNOSIS: RESPIRATORY FAILURE CARDIAC HISTORY: CATHERIZATION: NO SURGERY: NO PROSTHETIC VALVE: NO PACEMAKER: NO MEASUREMENTS (cm) DIASTOLIC (NORMALS) SYSTOLIC (NORMALS) IVSd 0.9 (0.6-1.2) LA Diam 5.0 (1.9-4.0) LVEF 66% LVIDd 3.6 (3.5-5.7) LVIDs 2.3 (2.0-3.5) %FS 35% LVPWd 1.3 (0.6-1.2) Ao Diam 3.4 (2.0-3.7) 2 DIMENSIONAL ASSESSMENT: RIGHT ATRIUM: NORMAL LEFT ATRIUM: SEVERELY DILATED RIGHT VENTRICLE: NORMAL LEFT VENTRICLE: NORMAL TRICUSPID VALVE: INSUFFICIENT TRICUSPID REGURGITATION MITRAL VALVE: NORMAL PULMONIC VALVE: NORMAL AORTIC VALVE: NORMAL PERICARDIAL EFFUSION: NONE AORTIC ROOT: NORMAL LEFT VENTRICULAR WALL MOTION: NORMAL. DOPPLER/COLOR FLOW: NOT ASSESSED. COMMENTS: 1. LIMITED IMAGES OBTAINED, TECHNICALLY DIFFICULLT STUDY. 2. SEVERELY DILATED LEFT ATRIUM. 3. NORMAL LEFT VENTRICULAR SYSTOLIC FUNCTION, EJECTION FRACTION 60-65%, NORMAL WALL MOTION. TECHNOLOGIST: JHONY MUÑOZ
--- NOTE | 2024-07-24 13:24 | P.PN ---
Date of Service: 07/24/24 Subjective: arousable, somewhat difficult to understand, responds in short sentences/few words slight L facial droop patient states he's doing "alright" seems somewhat confused ROS: unable to be fully obtained Physical Exam: GEN: Alert, oriented to self and place CV: Regular rate and rhythm, anasarca Pulm: Nonlabored respirations at rest, transmitted upper airway noises ABD: soft, nontender, nondistended Neuro: generalized weakness, slight L facial droop at rest, improves/resolves once more awake/alert Problem List: Acute hypoxic and hypercarbic respiratory failure Encephalopathy secondary to hypercarbia and respiratory acidosis Hypovolemic shock Hypotension Adrenal insufficiency Coagulopathy Raised INR History of PE ESRD Decreased functional status Acute hypoxic and hypercarbic respiratory failure Encephalopathy secondary to hypercarbia and respiratory acidosis Altered mental status improved. CO2 retention improved. off Levophed drip. (07/19-07/20) Pulmonary Dr. Mason is following BiPAP at night TSH/free T4 0.357/1.79 continue empiric IV cefepime (07/19-) Neurochecks only on BIPAP for a few hours 07/22-07/23, not on it last night; possibly what is contributing to his somnolence today check ABG Hypovolemic shock Hypotension Adrenal insufficiency Patient with history of chronic hypotension suspected related to adrenal insufficiency. Patient briefly on Levophed drip. (07/19-07/20) Blood pressure has been stable last 24-48 hours IV hydrocortisone deescalated to oral hydrocortisone (07/23) Coagulopathy Raised INR History of PE Patient is on Coumadin d/t Hx of PE. Prior hemorrhagic cyst secondary to coagulopathy during previous admission. INR quickly reversed with vitamin K. Renal ultrasound result reviewed and no hemorrhage identified though study was limited given patient body habitus. Coumadin resumed at a lower dose (07/22) Monitor PT/INR daily ESRD on HD Nephrology Dr. Franklin is following Routine hemodialysis per nephrology. Anticipate dialysis tomorrow 07/25 Decreased functional status Family report patient is weaker than his baseline. He is able to feed himself at baseline but currently has difficulty with it. continue PT/OT Social service consult to evaluate for SNF clinically approved for SNF 07/24; but may benefit from rehab VTE: Coumadin Code: DNR Dispo: SNF - clinically improved, possible rehab Time Spent Managing Pts Care (In Minutes): 55
--- NOTE | 2024-07-24 15:33 | RAD REPORT ---
EXAM: CT brain without contrast HISTORY: Left facial droop COMPARISON: July 19, 2024 TECHNIQUE: Multiple contiguous axial images were obtained and a CT of the brain without contrast.. Sagittal and coronal reconstruction performed. Automated exposure control, adjustment of the mA and/or kV according to patient size, and/or iterative reconstruction. Unless otherwise specified, incidental f indings do not require dedicated imaging follow-up FINDINGS: An intracranial bleed is not seen Ventricles are normal caliber No extra-axial fluid collection noted2 Mild low-density paraventricular, deep and subcortical white matter likely ischemic changes secondary to small vessel disease. Mild to moderate cerebral atrophy. No fluid within the visualized sinuses or mastoids noted. IMPRESSION: No acute intracranial abnormality noted. If the patient continues to have symptoms to suggest an acute intracranial abnormality then MRI of th e brain would be recommended.
[2024-07-24 18:02] LABS: Blood O2 Saturation 95.2 % (92-98.5)
[2024-07-24 18:03] LABS: Arterial Blood Carboxyhemoglob 1.7 % (0-1.5); Blood Gas Oxyhemoglobin 92.5 % (94-97); Blood Gas THB 9.5 g/dl (12-18)
--- NOTE | 2024-07-24 18:04 | RAD REPORT ---
EXAMINATION: MRI BRAIN WITHOUT CONTRAST CLINICAL INDICATION: Left facial droop TECHNIQUE: Multiplanar multisequence MR images of the brain were obtained without intravenous contras t. Unless otherwise specified, incidental findings do not require dedicated imaging follow-up. COMPARISON: July 24, [address] FINDINGS: Mild abnormal signal within periventricular, deep and subcortical white matter probably ischemic lashell nges secondary to small vessel disease. Diffusion weighted/ADC mapping does not demonstrate evidence of an acute infarction. Ventricles are normal caliber. No extra-axial fluid collection. No fluid within the sinuses/mastoid seen IMPRESSION: No acute intracranial abnormalities displayed
[2024-07-24] MEDS: NYSTATIN PWDR 100000 UNIT/GM TOP SCH (20:34)
--- NOTE | 2024-07-24 20:40 | P.PN ---
Date of Service: 07/24/24 Vital Signs Temp Pulse Resp BP Pulse Ox 97.4 F 83 20 133/67 98 07/24/24 20:00 07/24/24 20:00 07/24/24 20:00 07/24/24 20:00 07/24/24 20:00 Medications Acetaminophen (Acetaminophen 650mg/Rect Supp) 650 mg SC Q6HP PRN PRN Reason: Temp > 100 F or mild pain Allopurinol (Allopurinol 100 Mg Tab) 100 mg PO BEDTIME [facility] Last Admin: 07/24/24 20:34 Dose: 100 mg Arformoterol Tartrate (Arformoterol Tartrate 15 Mcg/2 Ml Vial.Neb) 15 mcg NEB BIDRESP [facility] Last Admin: 07/24/24 08:33 Dose: 15 mcg Fludrocortisone Acetate (Fludrocortisone 0.1 Mg Tab) 0.1 mg PO DAILY [facility] Last Admin: 07/24/24 08:03 Dose: 0.1 mg Heparin Sodium (Porcine) (Heparin 1,000 Unit/Ml Vial) 6,000 unit IV EVERY HD PRN PRN Reason: FOR DIALYSIS CATHETER CARE Last Admin: 07/23/24 14:16 Dose: 6,000 unit Heparin Sodium (Porcine) (Heparin 1,000 Unit/Ml Vial) 2,000 unit IV EVERY HD P RN PRN Reason: Prevent HD System Clotting Last Admin: 07/23/24 12:12 Dose: 2,000 unit Hydrocortisone (Hydrocortisone 10 Mg Tab) 20 mg PO BID@0600,1400 [facility] Last Admin: 07/24/24 13:19 Dose: 20 mg Sodium Chloride (Sodium Chloride) 250 mls @ 0 mls/hr IV .Q0M [facility] Mesalamine (Mesalamine 500 Mg Capsule.Er) 2,000 mg PO BID [facility] Last Admin: 07/24/24 20:34 Dose: 2,000 mg Nystatin (Nystatin Pwdr 997122 Unit/Gm) 1 appl TOP BID [facility] Last Admin: 07/24/24 20:34 Dose: 1 appl Warfarin Sodium (Warfarin Sodium 2 Mg Tab) 2 mg PO DAILY 5 PM [facility] Last Admin: 07/24/24 17:29 Dose: 2 mg Microbiology Results 07/19/24 12:50 Blood - Blood Aerobic Blood Culture - Final No growth in 5 days. 07/19/24 12:50 Blood - Blood Anaerobic Blood Culture - Final No growth in 5 days. 07/19/24 12:40 Blood - Blood Aerobic Blood Culture - Final No growth in 5 days. 07/19/24 12:40 Blood - Blood Anaerobic Blood Culture - Final No growth in 5 days. 07/19/24 11:43 Nasopharnyx Influenza Type A Antigen Screen - Final 07/19/24 11:43 Nasopharnyx Influenza Type B Antigen Screen - Final Assessment/ Plan: Nephrology No dyspnea No chest pain Cough Weakness No acute events overnight Vitals, medications, blood work and imaging reviewed in the chart General: Acute distress, Unresponsive HEENT: Atraumatic Neck: Supple Respiratory: Normal resp effort Cardiovascular: No edema, Irregular heart rate/rhythm Gastrointestinal: Soft and benign, No guarding Musculoskeletal: No clubbing, No contractures Integumentary: No rashes, No cyanosis Laboratory Data (last 24 hrs) 07/19/24 07/19/24 07/19/24 12:50 12:50 12:50 WBC 10.60 Hgb 10.3 L Hct 32.9 L Plt Count 178 PT 148.3 H INR 14.31 H* APTT 100.5 H Sodium 137 Potassium 3.4 L BUN 17 Creatinine 5.20 H Glucose 105 Total Bilirubin 0.7 AST 92 H ALT 66 H Alkaline Phosphatase 106 Imagings Data: EXAM: CT brain without contrast HISTORY: AMS, INR 15 COMPARISON: 11/04/2023 TECHNIQUE: Multiple contiguous axial images were obtained and a CT of the brain without contrast. Sagittal and coronal reformats were performed. One or more of the following dose reduction techniques were used: Automated exposure control, adjustment of the mA and/or kV according to patient size, and/or iterative reconstruction. FINDINGS: No evidence of hydrocephalus, intracranial hemorrhage, or extra-axial fluid collection. Mild brain atrophy with mild periventricular and deep white matter chronic microvascular ischemic changes present. Small remote lacunar infarct on the right. No evidence of midline shift or areas of brain edema. The calvarium is intact. The visualized paranasal sinuses and mastoid air cells are essentially clear. IMPRESSION: No evidence of acute intracranial abnormality. EXAMINATION: ONE VIEW CHEST XR CLINICAL INDICATION: hypotension TECHNIQUE: Frontal chest projection is submitted. Examination is limited by patient positioning and technique. COMPARISON: 05/17/2024 FINDINGS: Mild interstitial pulmonary edema. The heart is moderately enlarged. No disp laced fractures identified. IMPRESSION: Mild CHF versus volume overload. Conclusions/Impression: ESRD on HD -HD TIW MWF Hypotension -Levophed prn -Restart Midodrine as indicated Diastolic CHF, chronic -UF with HD Acute Respiratory Failure with Hypercapnia -Bipap prn Adrenal Insufficiency -Continue Hydrocortisone Hypoalbuminemia -Consider Nepro Anemia in chronic illness -Retacrit prn CKD MBD Hypercalcemia -Hypercalcemia labs pending Coagulopathy -Resolved -Continue coumadin; monitor INR Hospitalist note reviewed
[2024-07-25 05:40] LABS: PT Prothrombin Time 26.1 SECONDS (9.4-12.5); Protime INR 2.51
[2024-07-25 05:43] LABS: Absolute Lymphocytes (CBC) 0.5 K/uL (0.7-4.9); Absolute Monocytes 2.2 K/uL (0.1-1.3); Absolute Neutrophil 6.8 K/uL (1.8-8.0); Basophils % 0.4 % (0-1.3); Eosinophils % 0.2 % (0-4.4); Hematocrit 27.6 % (39.6-49.0); Hemoglobin 8.9 g/dL (13.6-17.9); Lymphocytes % 5.2 % (15.3-44.8); MCHC 32.2 g/dL (32.0-36.0); MCV 83.9 fL (80-100); MPV 8.8 fL (7.6-11.3); Monocytes % 23.4 % (3.3-12.3); Neutrophils % 70.8 % (41.7-73.7); Nucleated Red Blood Cells % 0.4 % (0-0); Platelets 204 thou/uL (152-406); RBC Red Blood Cell Count 3.28 M/uL (4.33-5.43); Red Cell Distribution Width 21.5 % (12.1-15.2)
[2024-07-25 06:06] LABS: Albumin 2.1 g/dL (3.4-5.0); Albumin/Globulin Ratio 0.6 (1.1-1.8); Bilirubin Total 0.6 mg/dL (0.2-1.0); Globulin 3.4 g/dL (2.3-3.5); Magnesium 2.1 mg/dL (1.6-2.4); Phosphorus 2.9 mg/dL (2.5-4.9); Protein, Total 5.5 g/dL (6.4-8.2)
[2024-07-25] MEDS: MIDODRINE HCL 5 MG TABLET PO SCH (08:42)
[2024-07-25] MEDS: NA CHLORIDE 0.9% 250 ML IV ONE (08:50)
[2024-07-25] MEDS: AMIODARONE HCL 200 MG TAB PO SCH (08:50)
[2024-07-25 08:52] LABS: Band Neutrophils 1 % (0-1); Differential Total Cells Count 100; Eosinophils 1 % (0-3); Lymphocytes 7 % (15-42); Monocytes 20 % (0-10); Segmented Neutrophils 68 % (40-80)
[2024-07-25 08:53] LABS: Metamyelocytes 1 % (0-0); Myelocytes 2 % (0-0); Platelet Estimate ADEQ; Platelets Clumped FEW PRESENT
[2024-07-25 08:54] LABS: Anisocytosis 1+; Blood Morphology Comment NOTED (NOT SEEN); Ovalocytes SLIGHT; Polychromasia SLIGHT; Target Cells 1+
[2024-07-25] MEDS: CINACALCET HCL 30 MG TAB PO SCH (10:41)
[2024-07-25] MEDS ORDERED: MANNITOL 25% 12.5 GM/50 ML VIAL IV PRN (11:04)
--- NOTE | 2024-07-25 12:14 | P.PN ---
Date of Service: 07/25/24 Subjective: patient slight more responsive, interactive today. Responding to some questions appropriately. Low BP this morning, some difficulty getting accurate reading. recheck 20-30 min later much improved / normal transfer initiated to [facility] per patient/family request family updated at bedside ROS: unable to be fully obtained Physical Exam: GEN: Alert, oriented to self, when asked what year , he states his bday CV: Regular rate and rhythm, anasarca Pulm: Nonlabored respirations at rest, transmitted upper airway noises ABD: soft, nontender, nondistended Neuro: generalized weakness Problem List: Acute hypoxic and hypercarbic respiratory failure Encephalopathy secondary to hypercarbia and respiratory acidosis Hypovolemic shock Hypotension Adrenal insufficiency Coagulopathy Raised INR History of PE ESRD Decreased functional status Acute hypoxic and hypercarbic respiratory failure Encephalopathy secondary to hypercarbia and respiratory acidosis Altered mental status improved. CO2 retention improved. CT head negative for any acute findings. MRI negative for CVA off Levophed drip. (07/19-07/20) Pulmonary Dr. Mason is following at this time, no clear etiology for infxn, dc cefepime - which can cause some encephalopathy as well, would improve with HD avoid sedatives, monitor vitals Neurochecks Neurology consulted only on BIPAP for a few hours 07/22-07/23; possibly what is contributing to his somnolence ABG - PCO2 improved continue CPAP at night transfer initiated to [facility] per patient/family request - discussed could take several days due to bed availability / lateral transfer family stated they knew someone / had someone they could call that may be able to assist Hypovolemic shock Hypotension Adrenal insufficiency Patient with history of chronic hypotension suspected related to adrenal insufficiency. Patient briefly on Levophed drip. (07/19-07/20) Blood pressure has been stable , had a low reading 1/15 AM, but was back to normal ~20-30min later, and continued to be mentating well / more interactive compared to yesterday IV hydrocortisone deescalated to oral hydrocortisone (07/23) Coagulopathy Raised INR History of PE Patient is on Coumadin d/t Hx of PE. Prior hemorrhagic cyst secondary to coagulopathy during previous admission. INR quickly reversed with vitamin K. Renal ultrasound result reviewed and no hemorrhage identified though study was limited given patient body habitus. Coumadin resumed at a lower dose (07/22) Monitor PT/INR daily ESRD on HD Nephrology Dr. Franklin is following Routine hemodialysis per nephrology. Anticipate dialysis today Decreased functional status Family report patient is weaker than his baseline. He is able to feed himself at baseline but currently has difficulty with it. continue PT/OT Social service consult to evaluate for SNF VTE: Coumadin Code: DNR Dispo: SNF vs rehab transfer initiated to [facility] per patient/family request Time Spent Managing Pts Care (In Minutes): 55
[2024-07-25] MEDS: ENSURE CLEAR 200 ML CAN PO SCH (12:52)
--- NOTE | 2024-07-25 17:07 | RAD REPORT ---
EXAMINATION: ONE VIEW CHEST XR CLINICAL INDICATION: Male, 69 years old.,f/u opacities/edema TECHNIQUE: Frontal chest projection is submitted. Examination is limited by patient positioning and t echnique. COMPARISON: 07/21/2024 FINDINGS: Decreased inspiratory effort limits evaluation. Chronic interstitial or fibrotic changes, stable. All owing for this, no new focal airspace opacities are present. Elevation of the left hemidiaphragm again seen. Left IJ dialysis catheter in place. No pneumothorax or sizable effusion. Stable cardiome shreya. Mediastinal contours are unchanged. IMPRESSION: Stable cardiomegaly with no focal airspace opacities. Stable interstitial prominence. Decreased inspi ratory effort limits evaluation.
--- NOTE | 2024-07-25 21:40 | P.PN ---
Date of Service: 07/25/24 Vital Signs Temp Pulse Resp BP Pulse Ox 98.4 F 102 H 19 120/59 L 983 07/25/24 20:00 07/25/24 20:43 07/25/24 20:00 07/25/24 20:00 07/25/24 20:43 Medications Acetaminophen (Acetaminophen 650mg/Rect Supp) 650 mg OR Q6HP PRN PRN Reason: Temp > 100 F or mild pain Allopurinol (Allopurinol 100 Mg Tab) 100 mg PO BEDTIME [facility] Last Admin: 07/25/24 20:46 Dose: 100 mg Amiodarone HCl (Amiodarone Hcl 200 Mg Tab) 200 mg PO BID [facility] Last Admin: 07/25/24 20:46 Dose: 200 mg Arformoterol Tartrate (Arformoterol Tartrate 15 Mcg/2 Ml Vial.Neb) 15 mcg NEB BIDRESP [facility] Last Admin: 07/25/24 20:48 Dose: 15 mcg Cinacalcet (Cinacalcet Hcl 30 Mg Tab) 60 mg PO DAILY [facility] Last Admin: 07/25/24 10:41 Dose: 60 mg Enteral Nutritional Formula (Ensure Clear 200 Ml Can) 237 ml PO BID [facility] Last Admin: 07/25/24 20:46 Dose: 237 ml Fludrocortisone Acetate (Fludrocortisone 0.1 Mg Tab) 0.1 mg PO DAILY [facility] Last Admin: 07/25/24 08:50 Dose: 0.1 mg Heparin Sodium (Porcine) (Heparin 1,000 Unit/Ml Vial) 6,000 unit IV EVERY HD PRN PRN Reason: FOR DIALYSIS CATHETER CARE Last Admin: 07/25/24 16:38 Dose: 6,000 unit Heparin Sodium (Porcine) (Heparin 1,000 Unit/Ml Vial) 2,000 unit IV EVERY HD PRN PRN Reason: Prevent HD System Clotting Last Admin: 07/25/24 12:57 Dose: 2,000 unit Hydrocortisone (Hydrocortisone 10 Mg Tab) 20 mg PO BID@0600,1400 [facility] Last Admin: 07/25/24 13:17 Dose: Not Given Sodium Chloride (Sodium Chloride) 250 mls @ 0 mls/hr IV .Q0M [facility] Mannitol (Mannitol 25% 12.5 Gm/50 Ml Vial) 50 gm IV EVERY HD PRN PRN Reason: BP SUPPORT Mesalamine (Mesalamine 500 Mg Capsule.Er) 2,000 mg PO BID [facility] Last Admin: 07/25/24 20:46 Dose: 2,000 mg Midodrine (Midodrine Hcl 5 Mg Tablet) 5 mg PO TID [facility] Last Admin: 07/25/24 20:47 Dose: 5 mg Nystatin (Nystatin Pwdr 520821 Unit/Gm) 1 appl TOP BID [facility] Last Admin: 07/25/24 20:46 Dose: 1 appl Warfarin Sodium (Warfarin Sodium 2 Mg Tab) 2 mg PO DAILY 5 PM [facility] Last Admin: 07/25/24 17:25 Dose: 2 mg Microbiology Results 07/19/24 12:50 Blood - Blood Aerobic Blood Culture - Final No growth in 5 days. 07/19/24 12:50 Blood - Blood Anaerobic Blood Culture - Final No growth in 5 days. 07/19/24 12:40 Blood - Blood Aerobic Blood Culture - Final No growth in 5 days. 07/19/24 12:40 Blood - Blood Anaerobic Blood Culture - Final No growth in 5 days. 07/19/24 11:43 Nasopharnyx Influenza Type A Antigen Screen - Final 07/19/24 11:43 Nasopharnyx Influenza Type B Antigen Screen - Final Assessment/ Plan: Nephrology No dyspnea No chest pain Weakness Family reports that his mental status is not at its baseline No acute events overnight Vitals, medications, blood work and imaging reviewed in the chart General: NAD. Obese HEENT: Atraumatic Neck: Supple Respiratory: Normal resp effort Cardiovascular: Edema, Irregular heart rate/rhythm Gastrointestinal: Soft and benign, No guarding Musculoskeletal: No clubbing, No contractures Integumentary: No rashes, No cyanosis Laboratory Data (last 24 hrs) 07/19/24 07/19/24 07/19/24 12:50 12:50 12:50 WBC 10.60 Hgb 10.3 L Hct 32.9 L Plt Count 178 PT 148.3 H INR 14.31 H* APTT 100.5 H Sodium 137 Potassium 3.4 L BUN 17 Creatinine 5.20 H Glucose 105 Total Bilirubin 0.7 AST 92 H ALT 66 H Alkaline Phosphatase 106 Imagings Data: EXAM: CT brain without contrast HISTORY: AMS, INR 15 COMPARISON: 11/04/2023 TECHNIQUE: Multiple contiguous axial images were obtained and a CT of the brain without contrast. Sagittal and coronal reformats were performed. One or more of the following dose reduction techniques were used: Automated exposure control, adjustment of the mA and/or kV according to patient size, and/or iterative reconstruction. FINDINGS: No evidence of hydrocephalus, intracranial hemorrhage, or extra-axial fluid collection. Mild brain atrophy with mild periventricular and deep white matter chronic microvascular ischemic changes present. Small remote lacunar infarct on the right. No evidence of midline shift or areas of brain edema. The calvarium is intact. The visualized paranasal sinuses and mastoid air cells are essentially clear. IMPRESSION: No evidence of acute intracranial abnormality. EXAMINATION: ONE VIEW CHEST XR CLINICAL INDICATION: hypotension TECHNIQUE: Frontal chest projection is submitted. Examination is limited by patient positioning and technique. COMPARISON: 05/17/2024 FINDINGS: Mild interstitial pulmonary edema. The heart is moderately enlarged. No displaced fractures identified. IMPRESSION: Mild CHF versus volume overload. Conclusions/Impression: ESRD on HD -HD TIW MWF -HD today Hypotension -Levophed prn -Agree with starting Midodrine -Mannitol with HD Diastolic CHF, chronic -UF with HD Acute Respiratory Failure with Hypercapnia -Bipap prn Adrenal Insufficiency -Continue Hydrocortisone Hypoalbuminemia -Consider Nepro Anemia in chronic illness -Retacrit prn CKD MBD Hypercalcemia -Hypercalcemia labs pending Coagulopathy -Resolved -Continue coumadin; monitor INR Hospitalist note reviewed Case reviewed with Dr. Anand
[2024-07-25] MEDS: NA CHLORIDE 0.9% 500 ML IV ONE (23:56)
[2024-07-26] MEDS: NA CHLORIDE 0.9% 500 ML ONE (00:40)
[2024-07-26 01:09] LABS: Absolute Lymphocytes (CBC) 0.5 K/uL (0.7-4.9); Absolute Neutrophil 7.1 K/uL (1.8-8.0); Basophils % 0.2 % (0-1.3); Eosinophils % 0.2 % (0-4.4); Hematocrit 25.1 % (39.6-49.0); Hemoglobin 7.9 g/dL (13.6-17.9); Lymphocytes % 4.9 % (15.3-44.8); MCH 26.5 pg (27.0-35.0); MCHC 31.4 g/dL (32.0-36.0); MCV 84.2 fL (80-100); MPV 9.3 fL (7.6-11.3); Monocytes % 21.1 % (3.3-12.3); Neutrophils % 73.6 % (41.7-73.7); Nucleated Red Blood Cells % 0.4 % (0-0); Platelets 189 thou/uL (152-406); RBC Red Blood Cell Count 2.98 M/uL (4.33-5.43); Red Cell Distribution Width 21.4 % (12.1-15.2)
[2024-07-26] MEDS: NA CHLORIDE 0.9% 500 ML IV ONE (01:16)
[2024-07-26 05:37] LABS: Absolute Basophils 0.1 K/uL (0-0.5); Absolute Lymphocytes (CBC) 0.5 K/uL (0.7-4.9); Absolute Monocytes 1.9 K/uL (0.1-1.3); Absolute Neutrophil 7.5 K/uL (1.8-8.0); Basophils % 0.6 % (0-1.3); Eosinophils % 0.1 % (0-4.4); Hematocrit 25.2 % (39.6-49.0); MCH 26.9 pg (27.0-35.0); MCHC 31.9 g/dL (32.0-36.0); MCV 84.3 fL (80-100); MPV 9.3 fL (7.6-11.3); Monocytes % 19.1 % (3.3-12.3); Neutrophils % 75.2 % (41.7-73.7); Nucleated Red Blood Cells % 0.3 % (0-0); Platelets 184 thou/uL (152-406); RBC Red Blood Cell Count 2.99 M/uL (4.33-5.43); Red Cell Distribution Width 21.9 % (12.1-15.2)
[2024-07-26 06:01] LABS: Albumin 2.1 g/dL (3.4-5.0); Albumin/Globulin Ratio 0.7 (1.1-1.8); Anion Gap 8.8 mEq/L (5.0-15.0); Bilirubin Total 0.6 mg/dL (0.2-1.0); Globulin 3.1 g/dL (2.3-3.5); Phosphorus 3.1 mg/dL (2.5-4.9); Potassium 3.8 mEq/L (3.5-5.1); Protein, Total 5.2 g/dL (6.4-8.2)
[2024-07-26 06:31] LABS: PT Prothrombin Time 36.9 SECONDS (9.4-12.5); Protime INR 3.56
--- NOTE | 2024-07-26 06:56 | P.PN ---
Date of Service: 07/26/24 Subjective: Transferred to ICU overnight due to low blood pressure, improved with IV fluids, did not require pressors more awake/alert this morning. Mentation improving. More interactive. Responding to questions somewhat appropriately. Speaking more clearly. Still somewhat confused. Oriented to self and place feels his upper body strength is improving. Able to lift arms up states doesn't remember much of last few days, but that "they said I had a stroke, but that doesn't make sense" ROS: 10 point ROS as noted above, otherwise negative Physical Exam: GEN: Alert, oriented to self and place. More awake/Interactive CV: Regular rate and rhythm, anasarca Pulm: Nonlabored respirations at rest, transmitted upper airway noises ABD: soft, nontender, nondistended Neuro: generalized weakness Problem List: Acute hypoxic and hypercarbic respiratory failure Encephalopathy secondary to hypercarbia and respiratory acidosis Hypovolemic shock Hypotension Adrenal insufficiency Coagulopathy Raised INR History of PE ESRD Decreased functional status Acute hypoxic and hypercarbic respiratory failure Encephalopathy secondary to hypercarbia and respiratory acidosis Altered mental status improved. CO2 retention improved. CT head negative for any acute findings. MRI negative for CVA off Levophed drip. (07/19-07/20) Pulmonary Dr. Mason consulted at this time, no clear etiology for infxn, dc cefepime - which can cause some encephalopathy as well, would improve with HD avoid sedatives, monitor vitals Neurochecks Neurology consulted only on BIPAP for a few hours 07/22-07/23; possibly what is contributing to his somnolence ABG - PCO2 improved continue CPAP at night transfer initiated to [facility] per patient/family request - discussed could take several days due to bed availability / lateral transfer Hypovolemic shock Hypotension Adrenal insufficiency Patient with history of chronic hypotension suspected related to adrenal insufficiency. Patient briefly on Levophed drip. (07/19-07/20) IV hydrocortisone deescalated to oral hydrocortisone (07/23) Transferred to ICU overnight d/t low blood pressure BP responded well to IVF bolus Midodrine increased to 10 mg TID 07/26 Coagulopathy Raised INR History of PE Patient is on Coumadin d/t Hx of PE. Prior hemorrhagic cyst secondary to coagulopathy during previous admission. INR quickly reversed with vitamin K. Renal ultrasound result reviewed and no hemorrhage identified though study was limited given patient body habitus. Coumadin resumed at a lower dose (07/22) Monitor PT/INR daily ESRD on HD Nephrology Dr. Franklin is following Routine hemodialysis per nephrology. Decreased functional status Family report patient is weaker than his baseline. He is able to feed himself at baseline but currently has difficulty with it. continue PT/OT VTE: Coumadin Code: DNR Dispo: SNF vs rehab transfer initiated to [facility] per patient/family request Time Spent Managing Pts Care (In Minutes): 55
--- NOTE | 2024-07-26 07:46 | P.PN ---
Subjective Date of Service: 07/26/24 Chief Complaint: Hypotension Patient was transferred to the ICU due to hypotension he is very alert responsive cooperative denies any complaints Review of Systems General: Weakness Respiratory: Shortness of Breath Physical Examination - Vital Signs Temperature: 97.5 F Blood Pressure: 96/50 Pulse: 83 Respirations: 19 Pulse Ox (%): 99 - Physical Exam General: Alert, Oriented x3 Respiratory: Clear to auscultation bilaterally Cardiovascular: Edema Assessment And Plan - Current Problems (Diagnosis) (1) Hypercapnic respiratory failure Current Visit: Yes Status: Acute Plan: Patient's hypercapnia seems to have resolved is very much more alert responsive end-stage renal disease blood cultures are negative vital signs oxygenation satisfactory brain MRI no acute changes patient is mildly anemic anticoagulated normal left ventricular ejection fraction most likely underlying diastolic heart failure chest x-ray is clear no change in medications history of adrenal insufficiency agree with stopping all antibiotic patient does use CPAP at night Qualifiers: Chronicity: unspecified Qualified Code(s): J96.92 - Respiratory failure, unspecified with hypercapnia
[2024-07-26] MEDS: MIDODRINE HCL 5 MG TABLET PO SCH (08:50)
[2024-07-26 16:53] LABS: Ionized Calcium 6.5 mg/dL (4.7-5.5)
--- NOTE | 2024-07-26 21:08 | P.PN ---
Date of Service: 07/26/24 Vital Signs Temp Pulse Resp BP Pulse Ox 97.5 F 82 23 H 110/55 L 96 07/26/24 16:00 07/26/24 19:00 07/26/24 19:00 07/26/24 19:00 07/26/24 19:00 Medications Acetaminophen (Acetaminophen 650mg/Rect Supp) 650 mg [place] Q6HP PRN PRN Reason: Temp > 100 F or mild pain Allopurinol (Allopurinol 100 Mg Tab) 100 mg PO BEDTIME [facility] Last Admin: 07/25/24 20:46 Dose: 100 mg Amiodarone HCl (Amiodarone Hcl 200 Mg Tab) 200 mg PO BID [facility] Last Admin: 07/26/24 08:50 Dose: 200 mg Arformoterol Tartrate (Arformoterol Tartrate 15 Mcg/2 Ml Vial.Neb) 15 mcg NEB BIDRESP [facility] Last Admin: 07/26/24 19:33 Dose: 15 mcg Cinacalcet (Cinacalcet Hcl 30 Mg Tab) 60 mg PO DAILY [facility] Last Admin: 07/26/24 08:50 Dose: 60 mg Enteral Nutritional Formula (Ensure Clear 200 Ml Can) 237 ml PO BID [facility] Last Admin: 07/26/24 08:51 Dose: 237 ml Fludrocortisone Acetate (Fludrocortisone 0.1 Mg Tab) 0.1 mg PO DAILY [facility] Last Admin: 07/26/24 08:50 Dose: 0.1 mg Heparin Sodium (Porcine) (Heparin 1,000 Unit/Ml Vial) 6,000 unit IV EVERY HD PRN PRN Reason: FOR DIALYSIS CATHETER CARE Last Admin: 07/25/24 16:38 Dose: 6,000 unit Heparin Sodium (Porcine) (Heparin 1,000 Unit/Ml Vial) 2,000 unit IV EVERY HD PRN PRN Reason: Prevent HD System Clotting Last Admin: 07/25/24 12:57 Dose: 2,000 unit Hydrocortisone (Hydrocortisone 10 Mg Tab) 20 mg PO BID@0600,1400 [facility] Last Admin: 07/26/24 14:00 Dose: Not Given Sodium Chloride (Sodium Chloride) 250 mls @ 0 mls/hr IV .Q0M [facility] Mannitol (Mannitol 25% 12.5 Gm/50 Ml Vial) 50 gm IV EVERY HD PRN PRN Reason: BP SUPPORT Mesalamine (Mesalamine 500 Mg Capsule.Er) 2,000 mg PO BID [facility] Last Admin: 07/26/24 08:49 Dose: 2,000 mg Midodrine (Midodrine Hcl 5 Mg Tablet) 10 mg PO TID [facility] Last Admin: 07/26/24 14:00 Dose: Not Given Nystatin (Nystatin Pwdr [id number] Unit/Gm) 1 appl TOP BID [facility] Last Admin: 07/26/24 08:51 Dose: 1 appl Warfarin Sodium (Warfarin Sodium 2 Mg Tab) 2 mg PO DAILY 5 PM [facility] Last Admin: 07/26/24 17:00 Dose: Not Given Microbiology Results 07/19/24 12:50 Blood - Blood Aerobic Blood Culture - Final No growth in 5 days. 07/19/24 12:50 Blood - Blood Anaerobic Blood Culture - Final No growth in 5 days. 07/19/24 12:40 Blood - Blood Aerobic Blood Culture - Final No growth in 5 days. 07/19/24 12:40 Blood - Blood Anaerobic Blood Culture - Final No growth in 5 days. 07/19/24 11:43 Nasopharnyx Influenza Type A Antigen Screen - Final 07/19/24 11:43 Nasopharnyx Influenza Type B Antigen Screen - Final Assessment/ Plan: Nephrology No dyspnea No chest pain Weakness The patient states that he wants to go home No acute events overnight Vitals, medications, blood work and imaging reviewed in the chart General: NAD. Obese HEENT: Atraumatic Neck: Supple Respiratory: Normal resp effort Cardiovascular: Edema, Irregular heart rate/rhythm Gastrointestinal: Soft and benign, No guarding Musculoskeletal: No clubbing, No contractures Integumentary: No rashes, No cyanosis Laboratory Data (last 24 hrs) 07/19/24 07/19/24 07/19/24 12:50 12:50 12:50 WBC 10.60 Hgb 10.3 L Hct 32.9 L Plt Count 178 PT 148.3 H INR 14.31 H* APTT 100.5 H Sodium 137 Potassium 3.4 L BUN 17 Creatinine 5.20 H Glucose 105 Total Bilirubin 0.7 AST 92 H ALT 66 H Alkaline Phosphatase 106 Imagings Data: EXAM: CT brain without contrast HISTORY: AMS, INR 15 COMPARISON: 11/04/2023 TECHNIQUE: Multiple contiguous axial images were obtained and a CT of the brain without contrast. Sagittal and coronal reformats were performed. One or more of the following dose reduction techniques were used: Automated exposure control, adjustment of the mA and/or kV according to patient size, and/or iterative reconstruction. FINDINGS: No evidence of hydrocephalus, intracranial hemorrhage, or extra-axial fluid collection. Mild brain atrophy with mild periventricular and deep white matter chronic microvascular ischemic changes present. Small remote lacunar infarct on the right. No evidence of midline shift or areas of brain edema. The calvarium is intact. The visualized paranasal sinuses and mastoid air cells are essentially clear. IMPRESSION: No evidence of acute intracranial abnormality. EXAMINATION: ONE VIEW CHEST XR CLINICAL INDICATION: hypotension TECHNIQUE: Frontal chest projection is submitted. Examination is limited by patient positioning and technique. COMPARISON: 05/17/2024 FINDINGS: Mild interstitial pulmonary edema. The heart is moderately enlarged. No displaced fractures identified. IMPRESSION: Mild CHF versus volume overload. Conclusions/Impression: ESRD on HD -HD TIW MWF Hypotension -Levophed prn -Continue Midodrine -Mannitol with HD Diastolic CHF, chronic -UF with HD Acute Respiratory Failure with Hypercapnia -Bipap prn Adrenal Insufficiency -Continue Hydrocortisone Hypoalbuminemia -Consider Nepro Anemia in chronic illness -Retacrit prn CKD MBD Hypercalcemia -Hypercalcemia labs pending Coagulopathy -Resolved -Continue coumadin; monitor INR Hospitalist & Pulmonary notes reviewed 35min patient care Case reviewed with Dr. Anand
[2024-07-27 05:59] LABS: MCH 26.2 pg (27.0-35.0); MCHC 30.9 g/dL (32.0-36.0); MCV 84.9 fL (80-100); MPV 9.3 fL (7.6-11.3); Platelets 205 thou/uL (152-406); RBC Red Blood Cell Count 3.06 M/uL (4.33-5.43); Red Cell Distribution Width 22.6 % (12.1-15.2)
[2024-07-27 06:08] LABS: PT Prothrombin Time 51.1 SECONDS (9.4-12.5); Protime INR 4.94
[2024-07-27 06:38] LABS: Albumin 2.1 g/dL (3.4-5.0); Albumin/Globulin Ratio 0.7 (1.1-1.8); Anion Gap 10.7 mEq/L (5.0-15.0); Bilirubin Total 0.6 mg/dL (0.2-1.0); Potassium 3.7 mEq/L (3.5-5.1); Protein, Total 5.1 g/dL (6.4-8.2)
--- NOTE | 2024-07-27 08:35 | P.PN ---
Date of Service: 07/27/24 Subjective: denies any pains breathing more comfortably on room air strength slowly returning anasarca improving BP low-normal. Anticipate dialysis later today family updated at bedside ROS: 10 point ROS as noted above, otherwise negative Physical Exam: GEN: Alert, oriented to self and place. clear speech CV: Regular rate and rhythm, anasarca Pulm: Nonlabored respirations at rest, transmitted upper airway noises ABD: soft, nontender, nondistended Neuro: generalized weakness , no focal defecits Problem List: Acute hypoxic and hypercarbic respiratory failure Encephalopathy secondary to hypercarbia and respiratory acidosis Hypovolemic shock Hypotension Adrenal insufficiency Coagulopathy Raised INR History of PE ESRD Decreased functional status Acute hypoxic and hypercarbic respiratory failure Encephalopathy secondary to hypercarbia and respiratory acidosis initially Altered mental status improved as CO2 retention improved. then worsened likely secondary to cefepime now improved since dc cefepime and after HD CT head negative for any acute findings. MRI negative for CVA off Levophed drip. (07/19-07/20) Pulmonary Dr. Mason consulted avoid sedatives, monitor vitals Neurochecks Neurology consulted ABG - PCO2 improved continue CPAP at night transfer initiated [facility] per patient/family request - discussed could take several days due to bed availability / lateral transfer Mentation, Strength slowly improving. Hypovolemic shock Hypotension Adrenal insufficiency Patient with history of chronic hypotension suspected related to adrenal insufficiency. Patient briefly on Levophed drip. (07/19-07/20) IV hydrocortisone deescalated to oral hydrocortisone (07/23) Transferred to ICU overnight d/t low blood pressure BP responded well to IVF bolus Midodrine increased to 10 mg TID 07/26 Monitor BP closely. Anticipate BP will decrease with dialysis as it did the other day and in the past - not unusual for him will monitor after HD, if stable, will transfer to floor Coagulopathy Raised INR History of PE Patient is on Coumadin d/t Hx of PE. Prior hemorrhagic cyst secondary to coagulopathy during previous admission. INR quickly reversed with vitamin K. Renal ultrasound result reviewed and no hemorrhage identified though study was limited given patient body habitus. Coumadin resumed at a lower dose (07/22) Monitor PT/INR daily ESRD on HD Nephrology Dr. Franklin is following Routine hemodialysis per nephrology. Anticipate dialysis today Decreased functional status Family report patient is weaker than his baseline. He is able to feed himself at baseline but currently has difficulty with it. continue PT/OT VTE: Coumadin Code: DNR Dispo: transfer initiated to [facility] per patient/family request given recent events and between icu/tele, will monitor BP and update transfer center Time Spent Managing Pts Care (In Minutes): 55
[2024-07-27] MEDS: ALBUMIN HUMAN 25% 100 ML IV ONE (09:56)
[2024-07-27 12:47] LABS: Abnormal Protein Band 1 REPORT; Albumin, (SPE) 2.6 g/dL (3.8-4.8); Alpha-1-Globulins 0.6 g/dL (0.2-0.3); Alpha-2-Globulins 0.8 g/dL (0.5-0.9); Beta 1 Globulin 0.3 g/dL (0.4-0.6); Gamma Globulins 0.4 g/dL (0.8-1.7); INTERPRETATION REPORT; Total Protein 5.1 g/dL (6.1-8.1)
--- NOTE | 2024-07-27 21:50 | P.PN ---
Date of Service: 07/27/24 Vital Signs Temp Pulse Resp BP Pulse Ox 98.4 F 80 18 118/65 100 07/27/24 20:00 07/27/24 20:00 07/27/24 20:00 07/27/24 20:00 07/27/24 18:00 Medications Acetaminophen (Acetaminophen 650mg/Rect Supp) 650 mg [place] Q6HP PRN PRN Reason: Temp > 100 F or mild pain Allopurinol (Allopurinol 100 Mg Tab) 100 mg PO BEDTIME [facility] Last Admin: 07/27/24 20:16 Dose: 100 mg Amiodarone HCl (Amiodarone Hcl 200 Mg Tab) 200 mg PO BID [facility] Last Admin: 07/27/24 20:16 Dose: 200 mg Arformoterol Tartrate (Arformoterol Tartrate 15 Mcg/2 Ml Vial.Neb) 15 mcg NEB BIDRESP [facility] Last Admin: 07/27/24 20:50 Dose: 15 mcg Cinacalcet (Cinacalcet Hcl 30 Mg Tab) 60 mg PO DAILY [facility] Last Admin: 07/27/24 08:36 Dose: 60 mg Enteral Nutritional Formula (Ensure Clear 200 Ml Can) 237 ml PO BID [facility] Last Admin: 07/27/24 20:17 Dose: 237 ml Fludrocortisone Acetate (Fludrocortisone 0.1 Mg Tab) 0.1 mg PO DAILY [facility] Last Admin: 07/27/24 08:36 Dose: 0.1 mg Heparin Sodium (Porcine) (Heparin 1,000 Unit/Ml Vial) 6,000 unit IV EVERY HD PRN PRN Reason: FOR DIALYSIS CATHETER CARE Last Admin: 07/27/24 13:39 Dose: 6,000 unit Heparin Sodium (Porcine) (Heparin 1,000 Unit/Ml Vial) 2,000 unit IV EVERY HD PRN PRN Reason: Prevent HD System Clotting Last Admin: 07/27/24 10:45 Dose: 2,000 unit Hydrocortisone (Hydrocortisone 10 Mg Tab) 20 mg PO BID@0600,1400 [facility] Last Admin: 07/27/24 13:27 Dose: 20 mg Sodium Chloride (Sodium Chloride) 250 mls @ 0 mls/hr IV .Q0M [facility] Mannitol (Mannitol 25% 12.5 Gm/50 Ml Vial) 50 gm IV EVERY HD PRN PRN Reason: BP SUPPORT Mesalamine (Mesalamine 500 Mg Capsule.Er) 2,000 mg PO BID [facility] Last Admin: 07/27/24 20:36 Dose: 2,000 mg Midodrine (Midodrine Hcl 5 Mg Tablet) 10 mg PO TID [facility] Last Admin: 07/27/24 20:16 Dose: 10 mg Nystatin (Nystatin Pwdr [id number] Unit/Gm) 1 appl TOP BID [facility] Last Admin: 07/27/24 20:16 Dose: 1 appl Microbiology Results 07/19/24 12:50 Blood - Blood Aerobic Blood Culture - Final No growth in 5 days. 07/19/24 12:50 Blood - Blood Anaerobic Blood Culture - Final No growth in 5 days. 07/19/24 12:40 Blood - Blood Aerobic Blood Culture - Final No growth in 5 days. 07/19/24 12:40 Blood - Blood Anaerobic Blood Culture - Final No growth in 5 days. 07/19/24 11:43 Nasopharnyx Influenza Type A Antigen Screen - Final 07/19/24 11:43 Nasopharnyx Influenza Type B Antigen Screen - Final Assessment/ Plan: Nephrology No dyspnea No chest pain Weakness Reports that he is feeling better today No acute events overnight Vitals, medications, blood work and imaging reviewed in the chart General: NAD. Obese HEENT: Atraumatic Neck: Supple Respiratory: Normal resp effort Cardiovascular: Edema, Irregular heart rate/rhythm Gastrointestinal: Soft and benign, No guarding Musculoskeletal: No clubbing, No contractures Integumentary: No rashes, No cyanosis Laboratory Data (last 24 hrs) 07/19/24 07/19/24 07/19/24 12:50 12:50 12:50 WBC 10.60 Hgb 10.3 L Hct 32.9 L Plt Count 178 PT 148.3 H INR 14.31 H* APTT 100.5 H Sodium 137 Potassium 3.4 L BUN 17 Creatinine 5.20 H Glucose 105 Total Bilirubin 0.7 AST 92 H ALT 66 H Alkaline Phosphatase 106 Imagings Data: EXAM: CT brain without contrast HISTORY: AMS, INR 15 COMPARISON: 11/04/2023 TECHNIQUE: Multiple contiguous axial images were obtained and a CT of the brain without contrast. Sagittal and coronal reformats were performed. One or more of the following dose reduction techniques were used: Automated exposure control, adjustment of the mA and/or kV according to patient size, and/or iterative reconstruction. FINDINGS: No evidence of hydrocephalus, intracranial hemorrhage, or extra-axial fluid collection. Mild brain atrophy with mild periventricular and deep white matter chronic microvascular ischemic changes present. Small remote lacunar infarct on the right. No evidence of midline shift or areas of brain edema. The calvarium is intact. The visualized paranasal sinuses and mastoid air cells are essentially clear. IMPRESSION: No evidence of acute intracranial abnormality. EXAMINATION: ONE VIEW CHEST XR CLINICAL INDICATION: hypotension TECHNIQUE: Frontal chest projection is submitted. Examination is limited by patient positioning and technique. COMPARISON: 05/17/2024 FINDINGS: Mild interstitial pulmonary edema. The heart is moderately enlarged. No displaced fractures identified. IMPRESSION: Mild CHF versus volume overload. Conclusions/Impression: ESRD on HD -HD TIW MWF Hypotension -Levophed prn -Continue Midodrine -Albuterol with HD Diastolic CHF, chronic -UF with HD Acute Respiratory Failure with Hypercapnia -Bipap prn Adrenal Insufficiency -Continue Hydrocortisone Hypoalbuminemia -Consider Nepro Anemia in chronic illness -Retacrit prn CKD MBD Hypercalcemia -Hypercalcemia labs pending Coagulopathy -Resolved -Continue coumadin; monitor INR Hospitalist notes reviewed 35min patient care Case reviewed with Dr. Anand
[2024-07-28] MEDS: HYDROCORTISONE 10 MG TAB ONE (04:43)
[2024-07-28 05:08] VITALS: BMI 43.1
[2024-07-28 06:01] LABS: Hematocrit 27.4 % (39.6-49.0); Hemoglobin 8.6 g/dL (13.6-17.9); MCH 26.4 pg (27.0-35.0); MCHC 31.3 g/dL (32.0-36.0); MCV 84.3 fL (80-100); Platelets 251 thou/uL (152-406); RBC Red Blood Cell Count 3.25 M/uL (4.33-5.43); Red Cell Distribution Width 22.5 % (12.1-15.2)
[2024-07-28 06:33] LABS: PT Prothrombin Time 46.9 SECONDS (9.4-12.5); Protime INR 4.53
[2024-07-28 06:37] LABS: Albumin 2.5 g/dL (3.4-5.0); Albumin/Globulin Ratio 0.8 (1.1-1.8); Anion Gap 10.2 mEq/L (5.0-15.0); Bilirubin Total 0.6 mg/dL (0.2-1.0); Globulin 3.1 g/dL (2.3-3.5); Potassium 3.2 mEq/L (3.5-5.1); Protein, Total 5.6 g/dL (6.4-8.2)
--- NOTE | 2024-07-28 08:21 | RAD REPORT ---
EXAM: Chest Single View HISTORY: cough, eval pulm edema, focal opacities COMPARISON: 07/25/2024 FINDINGS: LUNGS/PLEURA: The lungs are clear. No pleural effusions or pneumothorax. No pulmonary edema. MEDIASTINUM: The mediastinal silhouette is within normal limits. CARDIAC: Stable size and configuration. UPPER ABDOMEN: No significant abnormality. BONES: No acute abnormality. LINES/TUBES/OTHER: Left IJ approach dialysis catheter with tip overlying the right atrium. IMPRESSION: The lungs are clear bilaterally. No edema or focal airspace disease. Moderate cardiomegaly.
--- NOTE | 2024-07-28 09:13 | P.PN ---
Date of Service: 07/28/24 Subjective: denies chest pain. Breathing okay on room air BP stable overnight/this morning in 120-130s Passed bedside swallow without issues Pending transfer. Family updated at bedside afebrile ROS: 10 point ROS as noted above, otherwise negative Physical Exam: GEN: Alert, oriented to self and place. clear speech CV: Regular rate and rhythm, anasarca Pulm: Nonlabored respirations at rest, transmitted upper airway noises ABD: soft, nontender, nondistended Neuro: generalized weakness, no focal defecits Problem List: Acute hypoxic and hypercarbic respiratory failure Encephalopathy secondary to hypercarbia and respiratory acidosis Hypovolemic shock Hypotension Adrenal insufficiency Coagulopathy Raised INR History of PE ESRD Decreased functional status Acute hypoxic and hypercarbic respiratory failure Encephalopathy secondary to hypercarbia and respiratory acidosis initially Altered mental status improved as CO2 retention improved. then worsened likely secondary to cefepime now improved since dc cefepime and after HD CT head negative for any acute findings. MRI negative for CVA off Levophed drip. (07/19-07/20) Pulmonary Dr. Mason consulted avoid sedatives, monitor vitals Neurochecks Neurology consulted ABG - PCO2 improved continue CPAP at night transfer initiated to [facility] per patient/family request - discussed could take several days due to bed availability / lateral transfer awaiting bed/acceptance Mentation, Strength slowly improving. Hypovolemic shock / hypotension, secondary to Adrenal insufficiency Patient with history of chronic hypotension suspected related to adrenal insufficiency. Patient briefly on Levophed drip. (07/19-07/20) IV hydrocortisone deescalated to oral hydrocortisone (07/23) Midodrine increased to 10 mg TID 07/26 Downgraded to floor. BP stable overnight/this morning Coagulopathy Raised INR History of PE Patient is on Coumadin d/t Hx of PE. Prior hemorrhagic cyst secondary to coagulopathy during previous admission. INR quickly reversed with vitamin K. Renal ultrasound result reviewed and no hemorrhage identified though study was limited given patient body habitus. Monitor PT/INR daily Coumadin held since 07/27 given elevated INR ESRD on HD Nephrology Dr. Franklin is following Routine hemodialysis per nephrology. Decreased functional status Family report patient is weaker than his baseline. He is able to feed himself at baseline but currently has difficulty with it. continue PT/OT VTE: Coumadin held since 07/27 given elevated INR Code: DNR Dispo: transfer initiated to [facility] per patient/family request given recent events and between icu/tele, will monitor BP and update transfer center Time Spent Managing Pts Care (In Minutes): 55
[2024-07-28] MEDS: POTASSIUM CL SA 10 MEQ TAB PO ONE (09:17)
--- NOTE | 2024-07-28 11:11 | PN ---
The patient seen in room 212 at [facility] in [place]. Subjective: The patient is alert, awake. His sister is by the bedside. Denies any pain currently. Breathing comfortably at rest. His lungs anteriorly sound clear. Objective: Vital Signs: His vitals are relatively stable. Last blood pressure was 128/57. After t hat, the more current one is 146/78. His blood pressure has been in the 110-140 range for the systol ic. Pulse is about 60-80 and irregular. His respirations around 16 and comfortable. His O2 sats ar e 95% on room air. Lungs: Clear anteriorly. Abdomen: Soft. The patient is obese. Extremities: Reveal trace to positive edema bilaterally. Laboratory Data: Reviewed. Labs show WBC count of 13.7, slightly elevated from 11.8; hemoglobin 8.6 ; hematocrit 27.4; platelet count of 251. Sodium 138, potassium 3.2, chloride 103, bicarb is 28, BUN is 23, creatinine is 4.99. Medications: In the chart and reviewed. The patient is on amiodarone 200 mg p.o. b.i.d. He is also on hydrocortisone 20 mg p.o. b.i.d., which could also explain slightly increased WBC count. He is a lso on Pentasa. He is on midodrine. He is on nystatin powder, apply as needed to affected areas. Tong salmon is also on mannitol for blood pressure support with dialysis. His last dialysis was Tuesday. Dialy sis catheter site looks nice and clean. Notes from Dr. Anand and Dr. Franklin reviewed. Assessment And Plan: 1.The patient overall seems clinically stable. He has been requesting along with the family to be t ransferred and because of that request transferred to [facility], has been initiated, pending reply from the m discussed with the charge nurse. There is no anticipated timeline currently. They are just waitin g on hearing back from the hospitals including [facility] if he will be accepted. His dialysis status is cu rrently stable. He had last dialysis yesterday. Electrolytes looked relatively okay. Potassium sli ghtly low, but the patient just had dialysis and now next dialysis planned for Tuesday. The potassium should be coming up on its own. Encouraged p.o. intake with a balanced diet. Blood pressure seems relatively stable. He is not needing any Levophed. He is on midodrine and mannitol support with kristen lysis. 2.Congestive heart failure, volume overload, currently relatively stable. Breathing is comfortable. Continue to monitor with next dialysis plan for Tuesday. 3.Respiratory failure with hypercapnia, somewhat improved with BiPAP, also with dialysis. 4.Adrenal insufficiency, on hydrocortisone. 5.Hypoalbuminemia. Encouraged p.o. intake, protein intake, may need some protein supplements going forward. We will address further once acute issues resolved. 6.Anemia and chronic illness. The patient has been getting DUSTIN support. 7.Chronic kidney disease, mineral and bone disease. The patient with mild hypercalcemia. Should co rrect also with dialysis and volume correction. /WILBURL Voice ID: [id number] Report ID: [id number]
[2024-07-28 21:01] VITALS: BP 145/74; TEMP 98.1
[2024-07-28] MEDS: GUAIFENESIN 600 MG SA TAB PO SCH (21:26)
[2024-07-28] MEDS: GABAPENTIN 300 MG CAP PO SCH (21:26)
--- NOTE | 2024-07-28 22:02 | CON ---
Reason For Consultation: Consultation called because of confusion and facial droop. History Of Present Illness: Mr. Raya is a 69-year-old patient who was admitted to the hospital on 07/19/2024, which is now 9 days ago. On chart review, currently the patient has just come out [facility] ICU and he was asleep and difficult to arouse, but was able to respond appropriately. In any event , I had difficulty waking up. Family at bedside. He did have dialysis and had returned home around 2 or 2:30 on that day with normal mentation. Then, when they tried to wake him up the following morn ing, he was lethargic and unresponsive. He was brought into the ED and found to be significantly hyp otensive, and received IV fluids and midodrine, but he still was poorly responsive. He at that time was intimately turning his head to voice. Family did discuss at the time with hospitalist, the DNR s tatus and it was confirmed that the patient did not want to be intubated and wanted to be Do Not Resu scitate. His arterial blood gas found a low pH of 7.24, pCO2 elevated to 70, and pO2 was 89. He was eventually sent to ICU. Somewhere on the line, there was finding of the patient having facial droop ing on the left side. An MRI of the brain was done on 07/24. This study showed no evidence of an ac [place] ischemic or hemorrhagic stroke. There was abnormal signal in the periventricular white matter an d the subcortical white matter consistent with small vessel ischemic disease, and there was a negativ e diffusion weighted ADC mapping finding ruling out the presence of an acute infarct. His ventricles are of normal size. Regarding possibly the stroke, the patient's clinical exam was unclear if there was a facial droop and at the time of my evaluation I did not appreciate facial drooping, but the pa tient was somewhat sleepy at the time of my evaluation and did not fully exert or move with a big smi le to assess the nasolabial folds bilaterally. Past Medical History: End-stage renal disease, on hemodialysis Tuesday, Tuesday, Tuesday; hypertensi on; gout; diverticulitis; asbestosis; obstructive sleep apnea; adrenal insufficiency. Past Surgical History: Cardiac catheterization, appendectomy, cholecystectomy, left knee arthroplast y. Allergies: AMLODIPINE, OXACILLIN, CLAVULANIC ACID. Social History: No alcohol, tobacco, or IV drugs. Medications: Sensipar 1 tablet at bedtime, Colace 100 mg twice daily, Prilosec 40 mg daily, allopuri nol 100 mg at bedtime, albuterol nebulizer every 6 hours, Pentasa 4 capsules daily, simvastatin 20 mg at bedtime, tramadol 50 mg every 6 hours, gabapentin 300 mg daily, hydrocortisone 20 mg p.o. b.i.d. that is Cortef, Lopressor 50 mg twice daily, ProAmatine 5 mg 3 times daily, Lipitor 10 mg at bedtime, Florinef 0.1 mg daily. Family History: Noncontributory. Review of Systems: Not reliable at this point. Physical Examination: Vital Signs: Blood pressure 148/64, pulse 78, respiratory rate 16, temperature 97.8, oxygen saturati on 96% on room air. General: Mr. Raya is lying in bed, somewhat difficult to arouse, but is arousable and did pay att ention to questions. Lungs: Fair air movement. Musculoskeletal: Appeared to have symmetric movements, upper and lower extremities. Edema noted in the right upper extremity distally and proximally compared to the left. Similarly so, some mild trista a to lower extremities. Laboratory Studies: White blood cell count 13.7, hemoglobin 8.6. His INR is 4.53. Sodium 138, pota ssium 3.2, chloride 108, carbon dioxide 28, BUN 23, creatinine 4.99, glucose ranged from 88 to 110. Calcium 11.1, magnesium 2.0. AST 62, ALT 51, alkaline phosphatase 85. Total serum protein 5.6, albu min 2.5. He has parathyroid hormone elevated to 374.9. Serum protein electrophoresis shows elevated protein, low gammaglobulin 0.4, alpha-1 globulin is elevated at 0.6, albumin 2.6, total protein 5.1. His COVID-19 testing on the was negative. Assessment: Mr. Raya is a 69-year-old patient with multiple medical comorbid conditions as noted, including diverticulitis; hypertension; gout; end-stage renal disease, on hemodialysis; obstructive sleep apnea, asbestosis, renal insufficiency, who had no evidence of a stroke on MRI and no appreciat ed deficits on examination. Plan: Continue with current course of management. The patient is currently on a list for transfer f or higher level of care and per family's request, and is pending. No further neurologic evaluation i s, however, recommended at this time and the patient will be followed if needed. NITHIN/TRENT Voice ID: [id number] Report ID: [id number]
[2024-07-28 22:34] VITALS: O2SAT 92
[2024-07-29 04:17] LABS: 1,25 Dihydroxy Vitamin D3 20 pg/mL; Vitamin D 1,25-Dihydroxy Total 20 pg/mL (18-72); Vitamin D,1,25-OH2, D2 <8 pg/mL
== END 2024-07-28 23:05 | disposition short-term general hospital (02) | DRG 189 ==
LOC: ER 11:17 → ERHOLD 15:07 → 3RD-ICU 16:47 → 4TH 07-21 17:12 → 3RD-ICU 07-26 01:45 → 2ND 07-27 20:00
PROVIDERS: ADMIT Internal Medicine; ATTEND Hospitalist
PROC: 4A033R1 Measurement of Arterial Saturation, Peripheral, Percutaneous Approach (ICD-10-PCS; principal; 2024-07-19)
PROC: 3E033XZ Introduction of Vasopressor into Peripheral Vein, Percutaneous Approach (ICD-10-PCS; 2024-07-19)
PROC: 5A1D70Z Performance of Urinary Filtration, Intermittent, Less than 6 Hours Per Day (ICD-10-PCS; 2024-07-19)
PROC: 5A09457 Assistance with Respiratory Ventilation, 24-96 Consecutive Hours, Continuous Positive Airway Pressure (ICD-10-PCS; 2024-07-24)
PROC: 30233N1 Transfusion of Nonautologous Red Blood Cells into Peripheral Vein, Percutaneous Approach (ICD-10-PCS; 2024-07-24)
PROC: 02HV33Z Insertion of Infusion Device into Superior Vena Cava, Percutaneous Approach (ICD-10-PCS; 2024-07-24)
DX: J96.02 Acute respiratory failure with hypercapnia (principal); N18.6 End stage renal disease; G92.8 Other toxic encephalopathy; R57.1 Hypovolemic shock; E87.29 Other acidosis; D68.9 Coagulation defect, unspecified; E27.40 Unspecified adrenocortical insufficiency; Z68.41 Body mass index [BMI] 40.0-44.9, adult; I50.32 Chronic diastolic (congestive) heart failure; I13.2 Hypertensive heart and chronic kidney disease with heart failure and with stage 5 chronic kidney disease, or end stage renal disease; J96.01 Acute respiratory failure with hypoxia; E11.22 Type 2 diabetes mellitus with diabetic chronic kidney disease; D63.1 Anemia in chronic kidney disease; E87.6 Hypokalemia; I48.91 Unspecified atrial fibrillation; E83.52 Hypercalcemia; E66.01 Morbid (severe) obesity due to excess calories; E88.09 Other disorders of plasma-protein metabolism, not elsewhere classified; I95.1 Orthostatic hypotension; Z66 Do not resuscitate; Z99.2 Dependence on renal dialysis; Z88.1 Allergy status to other antibiotic agents; Z88.8 Allergy status to other drugs, medicaments and biological substances; Z90.49 Acquired absence of other specified parts of digestive tract; Z79.899 Other long term (current) drug therapy; Z96.652 Presence of left artificial knee joint; Z74.01 Bed confinement status; Z11.52 Encounter for screening for COVID-19
CPT/HCPCS: 36415; 36600; 70450; 70551; 71045; 76770; 80048; 80053; 80061; 80076; 80202; 82140; 82306; 82330; 82652; 82805; 82947; 83519; 83605; 83735; 83970; 84100; 84165; 84439; 84443; 84484; 84590; 85025; 85027; 85610; 85730; 86850; 86900; 86901; 87040; 87340; 87804; 87811; 90935; 92610; 93005; 93306; 94002; 94640; 94660; 94760; 96365; 96366; 96367; 96368; 96375; 97110; 97161; 99291; J0692; J1644; J1720; J2150; J3430; J3480; J7040; J7050; J7060; J7168; J7605; P9047